=== PATIENT | male | born 1965 | race Caucasian/White ===

== ENCOUNTER 2017-05-17 19:24 | Emergency (ER) | payer BC ==
[~2017-05-17] VITALS: Ht 182.9 cm; Wt 68.0 kg
[~2017-05-17 19:24] MED LIST: CPR500 PO; MAGN1TAB19 PO; MTR500 PO
[2017-05-17 19:37] VITALS: TEMP 37; Ht 182.9 cm; Wt 68.0 kg
[2017-05-17] MEDS ORDERED: ONDANSETRON INJ 2 MG/ML 2 ML VIAL IV STA (20:20)
[2017-05-17] MEDS ORDERED: KETOROLAC TROMETHAMINE 30 MG/ML VIAL IV STA (20:20)
[2017-05-17] MEDS ORDERED: SODIUM CHLORIDE 0.9% 500ML 500 ML IV STA (20:20)
[2017-05-17] MEDS ORDERED: HYDROmorphone INJ 1 MG/ML SYR IV STA ×2 (20:20→21:51)
--- NOTE | 2017-05-17 20:25 | EMERGENCY ROOM VISIT NOTE ---
History Report prepared by Porfirio: Sterling Asencio Under the Supervision of: Dr. Stevan Storey M.D. First contact with patient: 20:16 Chief Complaint: DENTAL PAIN Stated Complaint: SORE JAW AFTER DENTAL WORK, TEETH PULLED Nursing Triage Summary: Dental Pain and facial swelling. Unable to eat. Recent tooth extraction. History of Present Illness The patient is a 51 year old male who presents to the Emergency Room with complaints of dental pain that began 4 days ago. He rates his pain a 9/10 in severity. At this time, he had one tooth removed. Yesterday, he had another tooth removed. He did not fill his Acme prescription. He is having a lot of pain with facial swelling. He is unable to chew secondary to pain. He denies any other symptoms. Source of History: patient Onset: four days ago Position: other (Dental) Symptom Intensity: 9/10 Quality: sharp Timing: constant Modifying Factors (Worsening): eating Note: He has some facial swelling. Review of Systems See HPI for pertinent positives & negatives. A total of 10 systems reviewed and were otherwise negative. Past Medical & Surgical History of Diverticulitis Family History Omitted secondary to the patient's age. Social History Smoking Status: Never Smoker Smokeless Tobacco Use: No Alcohol Use: occasionally Drug Use: none Marital Status: Housing Status: lives with family Occupation Status: employed Current/Historical Medications Scheduled Amoxicillin (Amoxil), 500 MG PO TID Metronidazole (Flagyl), 500 MG PO TID Scheduled PRN Ibuprofen (Motrin), 600 MG PO Q6H PRN for Pain Allergies Coded Allergies: No Known Allergies (Unverified , 01/15/15) Physical Exam Vital Signs Date Time Temp Pulse Resp B/P (MAP) Pulse Ox O2 Delivery O2 Flow Rate FiO2 05/17/17 22:11 65 18 110/72 99 05/17/17 21:33 58 18 113/73 96 Room Air 05/17/17 19:37 37.0 70 16 128/90 97 Room Air Physical Exam GENERAL: Patient is a healthy-appearing well-nourished male HEAD: Normocephalic atraumatic EYES: Ocular movements intact pupils equal and react to light OROPHARYNX: No evidence of Wes's angina. No evidence of abscess to the left upper molar. No trismus. NECK: Supple no nuchal rigidity CHEST: Good equal expansion LUNGS: Clear and equal to auscultation CARDIAC: Normal S1 and S2 ABDOMEN: Soft nontender no guarding BACK: No CVA tenderness EXTREMITIES: No pain upon palpation normal muscle strength in all groups no clubbing cyanosis or edema NEURO: Patient is following commands and answering questions appropriately. Alert and oriented x3 Cranial Nerves 2-12 grossly intact Medical Decision & Procedures ER Provider Diagnostic Interpretation: Radiology results as stated below per my review and radiologist interpretation: CT SCAN OF THE FACIAL BONES WITHOUT IV CONTRAST CLINICAL HISTORY: Left-sided facial pain. Reported history of recent dental extractions. COMPARISON STUDY: No priors. TECHNIQUE: High-resolution CT scan of the facial bones is performed. Images are reviewed in the axial, sagittal, and coronal planes. IV contrast was not administered for this examination. A dose lowering technique was utilized adhering to the principles of ALARA. CT DOSE: 725.04 mGy.cm FINDINGS: The skeletal structures are osteopenia. There is no evidence of facial bone fracture. The bony orbits are intact and the orbital contents are within normal limits. The zygomatic arches, nasal bones, and pterygoid plates are preserved. The maxilla and mandible are intact. There are no layering blood products within the paranasal sinuses. A 1.8 cm retention cyst is seen in the right maxillary antrum. Trace mucosal thickening is noted in the left maxillary antrum. The paranasal sinuses are otherwise clear. The mastoid air cells are well pneumatized. The visualized calvarium and upper cervical spine are maintained. Cervical spondylosis is partially visualized. Partially imaged brain parenchyma is within normal limits. Cerumen is noted within the external auditory canal bilaterally. Dental caries are noted within the remaining left mandibular premolar. There is a large periapical lucency identified involving the socket of the left maxillary canine with cortical breakthrough and overlying induration. There is also a large periapical lucency identified involving the socket of a left mandibular molar with overlying cortical breakthrough and overlying soft tissue induration. No organized fluid collection is seen on this unenhanced examination. IMPRESSION: 1. There is no evidence of facial bone fracture. 2. There is periapical lucency seen involving left-sided dental sockets as above with overlying soft tissue induration. This is likely related to the reported clinical history of recent dental extractions. Clinical correlation will be required. Follow-up with the patient's dentist is recommended. 3. There is no evidence of abscess on this unenhanced examination. Electronically signed by: Brian Love M.D. 05/17/2017 9:40 PM Dictated Date/Time: 05/17/2017 9:32 PM Laboratory Results 05/17/17 20:35 Red Blood Count 4.84, Mean Corpuscular Volume 86.6, Mean Corpuscular Hemoglobin 28.9, Mean Corpuscular Hemoglobin Concent 33.4, Mean Platelet Volume 9.4, Neutrophils (%) (Auto) 40.0, Lymphocytes (%) (Auto) 42.6, Monocytes (%) (Auto) 15.2, Eosinophils (%) (Auto) 1.4, Basophils (%) (Auto) 0.6, Neutrophils # (Auto ) 2.58, Lymphocytes # (Auto) 2.75, Monocytes # (Auto) 0.98, Eosinophils # (Auto ) 0.09, Basophils # (Auto) 0.04 05/17/17 20:35 Test 05/17/17 20:35 05/17/17 20:46 White Blood Count 6.45 K/uL (4.8-10.8) Red Blood Count 4.84 M/uL (4.7-6.1) Hemoglobin 14.0 g/dL (14.0-18.0) Hematocrit 41.9 % (42-52) Mean Corpuscular Volume 86.6 fL (80-100) Mean Corpuscular Hemoglobin 28.9 pg (25-34) Mean Corpuscular Hemoglobin Concent 33.4 g/dl (32-36) Platelet Count 265 K/uL (130-400) Mean Platelet Volume 9.4 fL (7.4-10.4) Neutrophils (%) (Auto) 40.0 % Lymphocytes (%) (Auto) 42.6 % Monocytes (%) (Auto) 15.2 % Eosinophils (%) (Auto) 1.4 % Basophils (%) (Auto) 0.6 % Neutrophils # (Auto) 2.58 K/uL (1.4-6.5) Lymphocytes # (Auto) 2.75 K/uL (1.2-3.4) Monocytes # (Auto) 0.98 K/uL (0.11-0.59) Eosinophils # (Auto) 0.09 K/uL (0-0.5) Basophils # (Auto) 0.04 K/uL (0-0.2) RDW Standard Deviation 42.5 fL (36.4-46.3) RDW Coefficient of Variation 13.3 % (11.5-14.5) Immature Granulocyte % (Auto) 0.2 % Immature Granulocyte # (Auto) 0.01 K/uL (0.00-0.02) Est Creatinine Clear Calc Drug Dose 75.6 ml/min Estimated GFR () 89.0 Estimated GFR (Non- 76.8 BUN/Creatinine Ratio 12.6 (10-20) Calcium Level 9.7 mg/dl (8.5-10.1) Total Bilirubin 0.8 mg/dl (0.2-1) Direct Bilirubin 0.2 mg/dl (0-0.2) Aspartate Amino Transf (AST/SGOT) 18 U/L (15-37) Alanine Aminotransferase (ALT/SGPT) 20 U/L (12-78) Alkaline Phosphatase 51 U/L (45-117) Total Protein 8.1 gm/dl (6.4-8.2) Albumin 4.4 gm/dl (3.4-5.0) Lipase 198 U/L (73-393) Bedside Hemoglobin 15.0 g/dl (14.0-18.0) Bedside Hematocrit 44 % (42-52) Bedside Sodium 135 mEq/L (135-144) Bedside Potassium 4.6 mEq/L (3.3-5.0) Bedside Chloride 100 mEq/L (101-112) Bedside Total CO2 24 mEq/l (24-31) Anion Gap 16.0 mmol/L (16-25) Bedside Blood Urea Nitrogen 15 mg/dl (7-18) Bedside Creatinine 1.0 mg/dl (0.6-1.3) Bedside Glucose (other) 86 mg/dl (70-99) Bedside Ionized Calcium (Aster) 1.20 mmol/l (1.12-1.32) Labs reviewed by ED physician. Medications Administered Medications (Trade) Dose Ordered Sig/Lis Route Start Time Stop Time Status Last Admin Dose Admin Hydromorphone HCl (Dilaudid Inj) 1 mg NOW STAT IV 05/17/17 20:20 05/17/17 20:23 DC 05/17/17 20:56 1 MG Ketorolac Tromethamine (Toradol Inj) 30 mg NOW STAT IV 05/17/17 20:20 103/17 20:23 DC 05/17/17 20:56 30 MG Ondansetron HCl (Zofran Inj) 4 mg NOW STAT IV 05/17/17 20:20 05/17/17 20:23 DC 05/17/17 20:55 4 MG Sodium Chloride 500 ml @ 999 mls/hr Q31M STAT IV 05/17/17 20:20 05/17/17 20:50 DC 05/17/17 21:01 999 MLS/HR Hydromorphone HCl (Dilaudid Inj) 1 mg NOW STAT IV 05/17/17 21:51 05/17/17 21:53 DC 05/17/17 22:00 1 MG Metronidazole (Flagyl Tab) 500 mg NOW STAT PO 05/17/17 21:57 05/17/17 21:59 DC 05/17/17 22:03 500 MG ED Course 2016: Past medical records reviewed. The patient was evaluated in room C9. A complete history and physical examination was performed. 2020: Ordered Sodium Chloride 500 ml @ 999 mls/hr IV, Zofran Inj 4 mg IV, Toradol Inj 30 mg IV, Dilaudid Inj 1 mg 2150: Ordered Metronidazole 500 mg IV, Dilaudid Inj 1 mg IV 2156: Ordered Flagyl Tab 500 mg PO 2199: Ordered Hydrocodone Bitart/ Acetaminophen 1 homepack PO 3: Upon reexamination the patient is resting. I discussed results and treatment plan with the patient. He verbalizes agreement and understanding. The patient is ready for discharge. Medical Decision Differential diagnoses include dental carries, Wes's angina, facial cellulitis. This is a 52-year-old male who presents emergency department complaining of dental pain. The patient recently had teeth pulled and has been unable to eat. Based on the patient's complaint I was concerned about facial cellulitis therefore the patient was sent for a CAT scan of the face. There is no evidence of cellulitis or abscess on the CAT scan. In addition the patient does not have an elevation in his white blood count cell count. He was started on Dilaudid as well as Toradol in the emergency department and started on Zosyn. Based on the findings I feel that the patient can be safely discharged home. I will continue the patient on Flagyl. I strongly recommended that the patient follow-up with either his dentist or the maxillofacial surgeon. Medication Reconcilliation Current Medication List: was personally reviewed by me Blood Pressure Screening Patient's blood pressure: Normal blood pressure Blood pressure disposition: Did not require urgent referral Impression Primary Impression: Pain, dental Scribe Attestation The scribe's documentation has been prepared under my direction and personally reviewed by me in its entirety. I confirm that the note above accurately reflects all work, treatment, procedures, and medical decision making performed by me. Departure Information Dispostion Home / Self-Care Prescriptions Metronidazole (Flagyl) 500 Mg Tab 500 MG PO TID for 10 Days, #30 TAB Prov: Stevan Storey MD 05/17/17 Referrals Luis Milian M.D. (PCP) Alli eCspedes D.D.S. Forms HOME CARE DOCUMENTATION FORM, IMPORTANT VISIT INFORMATION, School Instructions, Work Instructions Patient Instructions ED Tooth Pain, My [facility] Additional Instructions Need follow up with Dentist/ Dr Cespedes's office Continue taking Pennicillin You were found to have an elevated blood pressure today (>120 sytolic or >90 diastolic). Per medicare guidelines, you need to follow up with this blood pressure screening with your Primary Care Physician (PCP). For a new PCP call [phone]. You received narcotic or benzodiazepene medication while in the emergency room today. This is an addictive medication that may cause drowziness as well as constipation. Do not drive, operate heavy machinery, or drink alcohol under the influence of this medication. Take 600 mg Ibuprofen every 6 hours Take Acme for breakthrough pain You have been examined and treated today on an emergency basis only. This is not a substitute for, or an effort to provide, complete comprehensive medical care. It is impossible to recognize and treat all injuries or illnesses in a single emergency department visit. It is therefore important that you follow up closely with Dr Dixon. Call as soon as possible for an appointment. Thank you for your time and consideration. I look forward to speaking with you again soon. Please don't hesitate to call us if you have any questions.
[2017-05-17 20:47] LABS: BASO % 0.6 %; BASO ABS # 0.04 K/uL (0-0.2); COMPLETE YES; EOS % 1.4 %; HEMATOCRIT 41.9 % (42-52); IG% 0.2 %; LYMPH % 42.6 %; LYMPH ABS # 2.75 K/uL (1.2-3.4); MEAN CELL VOLUME 86.6 fL (80-100); MEAN CORPUSCULAR HEMOGLOBIN 28.9 pg (25-34); MEAN CORPUSCULAR HGB CONC 33.4 g/dl (32-36); MEAN PLATELET VOLUME 9.4 fL (7.4-10.4); MONO % 15.2 %; PLATELET COUNT 265 K/uL (130-400); RED BLOOD COUNT 4.84 M/uL (4.7-6.1); WHITE BLOOD COUNT 6.45 K/uL (4.8-10.8)
[2017-05-17] MEDS ORDERED: AMOX500C3 PO (20:53)
[2017-05-17] MEDS ORDERED: IBUP-1450 PO (20:53)
[2017-05-17 20:55] LABS: ISTAT IONIZED CALCIUM 1.2 mmol/l (1.12-1.32)
[2017-05-17 21:07] LABS: BUN/CREATININE RATIO 12.6 (10-20); CALCIUM 9.7 mg/dl (8.5-10.1); CREATININE 1.1 mg/dl (0.60-1.40); POTASSIUM 4.6 mmol/L (3.5-5.1)
--- NOTE | 2017-05-17 21:41 | DIAGNOSTIC IMAGING REPORT ---
CT SCAN OF THE FACIAL BONES WITHOUT IV CONTRAST CLINICAL HISTORY: Left-sided facial pain. Reported history of recent dental extractions. COMPARISON STUDY: No priors. TECHNIQUE: High-resolution CT scan of the facial bones is performed. Images are reviewed in the axial, sagittal, and coronal planes. IV contrast was not administered for this examination. A dose lowering technique was utilized adhering to the principles of ALARA. CT DOSE: 725.04 mGy.cm FINDINGS: The skeletal structures are osteopenia. There is no evidence of facial bone fracture. The bony orbits are intact and the orbital contents are within normal limits. The zygomatic arches, nasal bones, and pterygoid plates are preserved. The maxilla and mandible are intact. There are no layering blood products within the paranasal sinuses. A 1.8 cm retention cyst is seen in the right maxillary antrum. Trace mucosal thickening is noted in the left maxillary antrum. The paranasal sinuses are otherwise clear. The mastoid air cells are well pneumatized. The visualized calvarium and upper cervical spine are maintained. Cervical spondylosis is partially visualized. Partially imaged brain parenchyma is within normal limits. Cerumen is noted within the external auditory canal bilaterally. Dental caries are noted within the remaining left mandibular premolar. There is a large periapical lucency identified involving the socket of the left maxillary canine with cortical breakthrough and overlying induration. There is also a large periapical lucency identified involving the socket of a left mandibular molar with overlying cortical breakthrough and overlying soft tissue induration. No organized fluid collection is seen on this unenhanced examination. IMPRESSION: 1. There is no evidence of facial bone fracture. 2. There is periapical lucency seen involving left-sided dental sockets as above with overlying soft tissue induration. This is likely related to the reported clinical history of recent dental extractions. Clinical correlation will be required. Follow-up with the patient's dentist is recommended. 3. There is no evidence of abscess on this unenhanced examination. Electronically signed by: Brian Love M.D. 05/17/2017 9:40 PM Dictated Date/Time: 05/17/2017 9:32 PM
[2017-05-17] MEDS ORDERED: METRONIDAZOLE 500MG / 100ML NSS IV STA (21:51)
[2017-05-17] MEDS ORDERED: METRONIDAZOLE 250 MG TAB PO STA (21:57)
[2017-05-17] MEDS ORDERED: NORCO 5/325MG HOME PACK PO ONE (22:00)
[2017-05-17] MEDS ORDERED: METR-163 PO (22:00)
[2017-05-17 22:11] VITALS: BP 110/72; PULSE 65; O2SAT 99
== END 2017-05-17 22:10 | disposition home or self-care (01) ==
LOC: C.EDB 19:24 → C.EDC 22:10
DX: K08.89 Other specified disorders of teeth and supporting structures (principal); K57.92 Diverticulitis of intestine, part unspecified, without perforation or abscess without bleeding

== ENCOUNTER 2017-12-14 07:06 | Emergency (ER) | payer BC, OTHER ==
[~2017-12-14] VITALS: Ht 182.9 cm; Wt 65.9 kg
[~2017-12-14 07:06] MED LIST changes: +AMOX500C3 PO; -CPR500 PO; +IBUP-1450 PO; -MAGN1TAB19 PO; -MTR500 PO
[2017-12-14 07:18] VITALS: TEMP 36.6; Ht 182.9 cm; Wt 65.9 kg
--- NOTE | 2017-12-14 07:33 | EMERGENCY ROOM VISIT NOTE ---
History Report prepared by Delmeribreji: Ene Moore Under the Supervision of: Dr. Huan Soriano M.D. First contact with patient: 07:22 Chief Complaint: HEAD PAIN Stated Complaint: ROMAN CATHOLIC PAIN ON LFT SIDE OF FACE AND HEAD History of Present Illness The patient is a 52 year old white male with a limited past medical history who presents to the ED with a cc of persistent left sided jaw pain beginning 2 days [employer]. He describes the pain as feeling "sharp" in nature and rates it as an 8/10 in severity. He states the pain occasionally radiates from his jaw up to his left eye socket. Tylenol has provided minimal relief. Positive pain with eating or drinking. Negative fevers, chills, ear pain, shoulder pain or back pain. He notes he had several dental extractions about 6 months ago in the left side of his jaw and is unsure if that is related. Source of History: patient Onset: 2 days [employer]NE[employer] Position: jaw (left side of jaw) Symptom Intensity: 8/10 Quality: sharp Timing: other (persistent) Modifying Factors (Worsening): eating, drinking Modifying Factors (Relieving): tylenol Associated Symptoms: No fevers, No chills, No back pain Review of Systems See HPI for pertinent positives and negatives. A total of ten systems were reviewed and were otherwise negative. Past Medical & Surgical Surgical Problems: (1) History of tooth extraction Social History Smoking Status: Never Smoker Alcohol Use: occasionally Drug Use: none Marital Status: Housing Status: lives with family Occupation Status: employed Current/Historical Medications Scheduled Amoxicillin (Amoxil), 500 MG PO TID Scheduled PRN Ibuprofen (Motrin), 600 MG PO Q6H PRN for Pain Allergies Coded Allergies: No Known Allergies (Unverified , 01/15/15) Physical Exam Vital Signs Date Time Temp Pulse Resp B/P (MAP) Pulse Ox O2 Delivery O2 Flow Rate FiO2 12/14/17 07:18 36.6 55 20 122/75 96 Room Air Physical Exam GENERAL: Awake, alert, well-appearing, NAD HENT: Normocephalic, atraumatic. Absent teeth 12 through 14, no reproducible TTP , no fluctuance, no erythema, posterior oropharynx is clear. EYES: Normal conjunctiva. Sclera non-icteric. PERRL. No anisocoria. Painless EOMI, not proptotic, no visual field deficits NECK: Supple. No nuchal rigidity. FROM. RESPIRATORY: CTAB, no rhonchi, wheezing, crackles CARDIAC: RRR, no MRG ABDOMEN: Soft, NTND, BS+ MSK: No chest wall TTP, no LE edema NEURO: CN 2-12 intact, 5/5 upper and lower extremity strength, no dysmetria, no drift, good finger to nose, no sensory deficits. Finger count grossly normal. SKIN: No rash or jaundice noted. Medical Decision & Procedures Medications Administered Medications (Trade) Dose Ordered Sig/Lis Route Start Time Stop Time Status Last Admin Dose Admin Prednisone (PredniSONE TAB) 60 mg STK-MED ONCE .ROUTE 12/14/17 07:39 12/14/17 07:40 DC 12/14/17 07:41 50 MG ED Course 0723: The patient was evaluated in room B10. A complete history and physical exam was performed. 0745: I reevaluated the patient. He is feeling well and is ready to go home. I discussed his discharge instructions and he verbalized complete understanding and agreement. Medical Decision The patient is a 52 year old white male with a limited past medical history who presents to the ED with a cc of persistent left sided jaw pain beginning 2 days [employer]. Triage Nursing notes reviewed. The patient's presentation and history were concerning for phantom nerve pain, neuralgia, post-traumatic trigeminal neuropathy, abscess and temporal arteritis. Nursing notes reviewed. Ancillary studies and prior records reviewed. Patient was seen and evaluated the bedside. Patient has complained of left- sided jaw pain which she describes as sharp in nature originating in the left upper maxillary area and radiating posteriorly behind the eye. The patient does not have any visual acuity deficits. The patient has a nonfocal neurologic exam. Patient has good range of motion of the eyes and is not proptotic. No anisocoria noted. Patient's posterior pharynx clear. Patient does not have any fluctuance or evidence of any abscess. There is no reproducible tenderness at the left upper maxillary portion where he did have his teeth pulled. I do that the patient did believe that the patient likely has a type of neuralgia that is likely isolated to the maxillary nerve. Patient was initially given a dose of prednisone and given a tapering course as an outpatient with a Medrol Dosepak. Patient was told to follow-up with PCP discuss neuropathic pain management options. I do not believe that the patient has a stroke as the pain is originating in the jaw. It is in the upper jaw and is not related to chest pain. Less likely ACS. I do not believe that the patient has temporal arteritis as the patient does not have any reproducible temporal pain and lacks of the things consistent with polymyalgia rheumatica other than the patient's age. Furthermore I do not believe this is an infectious process given that the patient does not have any reproducible tenderness to palpation or fluctuance. Also also no evidence of zoster lesions less likely postherpetic neuralgia. I also discussed with the patient that this could be related to a type of cluster headache given the patient's ipsilateral symptoms. Patient was given strict follow-up, discharge, and return precautions. All questions were answered. Patient was deemed suitable for outpatient follow-up at this time. Patient agreed with the plan of care and was safely discharged home. Medication Reconcilliation Current Medication List: was personally reviewed by me Blood Pressure Screening Patient's blood pressure: Normal blood pressure Blood pressure disposition: Did not require urgent referral Impression Primary Impression: Trigeminal neuralgia of left side of face Scribe Attestation The scribe's documentation has been prepared under my direction and personally reviewed by me in its entirety. I confirm that the note above accurately reflects all work, treatment, procedures, and medical decision making performed by me. Departure Information Dispostion Home / Self-Care Prescriptions Pregabalin (LYRICA) 75 Mg Cap 75 MG PO BID for 7 Days, #14 CAP Prov: Huan Soriano M.D. 12/14/17 Methylprednisolone (MEDROL DOSEPAK) 4 Mg Marcin 1 PKT PO UD for 6 Days, #1 PKT Prov: Huan Soriano M.D. 12/14/17 Referrals Luis Milian M.D. (PCP) Patient Instructions ED Neuralgia Trigeminal, My [facility] Additional Instructions Please return to the emergency department if you have worsening or recurrent symptoms not amenable to at-home treatment. Please call for a follow-up appointment with her primary care physician. Please take your medications as prescribed. If you have other concerns and/or complaints please feel free to also call your primary care physician's office or return the ED for further evaluation, management, and treatment. Please follow-up with your primary care physician to discuss further treatment management options for neuropathic pain. Please discuss treatment options as this may be related to trigeminal neuralgia , neuropathy, and/or cluster headache. You may take 400 mg Ibuprofen every 6 hours as needed for pain/fever with food unless told by your physician not to take NSAIDs. You may take tylenol 1000 mg every 6 hours as needed for pain/fever unless told by your physician to not take it or have liver problems. You may take motrin and tylenol separately or at the same time. Take your medications as prescribed. Please take your steroids preferably in the morning and with food as they may cause some upset stomach and cause you to be very awake and alert. Consider taking Pepcid 20 mg twice daily to help avoid GI upset. You have been examined and treated today on an emergency basis only. This is not a substitute for, or an effort to provide, complete comprehensive medical care. It is impossible to recognize and treat all injuries or illnesses in a single emergency department visit. It is therefore important that you follow up closely with [facility], your PCP, and/or your specialist(s). Call as soon as possible for an appointment. Thank you for your time and consideration. I look forward to speaking with you again soon. Please don't hesitate to call us if you have any questions.
[2017-12-14] MEDS ORDERED: METH4PAK PO (07:56)
[2017-12-14] MEDS ORDERED: PREG75CA PO (07:56)
[2017-12-14 08:03] VITALS: BP 129/74; PULSE 62; O2SAT 97
== END 2017-12-14 08:04 | disposition home or self-care (01) ==
LOC: C.EDB 07:07
DX: G50.0 Trigeminal neuralgia (principal)

== ENCOUNTER 2023-03-05 18:40 | Inpatient (IN) ==
[2023-03-05] MEDS ORDERED: SODIUM CHLORIDE 0.9% 500 ML IV ONE (19:04)
--- NOTE | 2023-03-05 19:06 | Emergency Department Note ---
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 The patient reports the pain is not associated with exertion or rest but does acknowledge that he has been having increasing shortness of breath with exertion for the past week to several weeks. He reports that he feels he has had cramping in his legs. He denies any personal or family history of blood clots. He denies any prior cardiac history. He does report that he drinks 6 beers every day. He does not feel he would have withdrawal if he were to stop for a week but has not done this in some time. He reports he most recently felt chest pain this morning which was more severe but has since calmed but has remained constant throughout today. The patient's reports that she feels as his color has been somewhat pale over the past several weeks. The patient reports having black stool a couple of x2 weeks ago but acknowledges that he did take Pepto-Bismol at that time. On arrival emergency department the patient is no distress, afebrile stable vital signs. He appears clinically dry. Lungs are clear bilaterally. Abdomen is benign. Rectal exam performed and did not demonstrate you will or Hemoccult nor melena or gross blood at this time. EKG without overt acute ischemia. Chest x-ray negative for acute cardiopulmonary process. WBC within normal limits. H/H 6.9/20.5 decreased from 14/39 in 2020 without more recent for comparison. MCV is normocytic at 77. Platelets mildly elevated at 534, nonspecific. Chemistry without metabolic acidosis. BUN is normal as is creatinine. Iron is noted to be significantly low and <10. LFTs unremarkable. High-sensitivity troponin was undetectable in setting of constant symptoms since this morning. Lipase is not elevated. COVID-19 RNA, DINORA test was negative. CT of the abdomen pelvis demonstrates small hiatal hernia and otherwise no acute abnormalities. Given the patient's low hemoglobin he was consented for transfusion and was ordered for 1 unit of PRBCs. Otherwise, he does agree with plan for admission for further management. Given possibility of upper GI bleeding Protonix bolus and drip was initiated though no melena or blood noted on exam. Case was discussed with [facility]ist, who will evaluate the patient for admission. Triage Nursing notes reviewed and agree them. Prior/outside medical records reviewed Vital Signs: reviewed Differential diagnosis: Reactive airway disease, pneumonia, pneumothorax, COPD, CHF, infections, cardiac ischemia, pulmonary embolism, musculoskeletal, gastrointestinal, as well as other pathologies. ER treatment provided: See below. Diagnostics interpreted by me: ECG: Normal sinus rhythm, 78 bpm, no ectopy, no overt ST elevation or depression, QTc 412, QRS 74. Cardiac Monitoring: An order for continuous cardiac monitoring was placed and demonstrated Normal sinus rhythm, 78 bpm, no ectopy. Laboratory studies: See below Imaging studies: See below Consultation(s): [facility] the patient for [facility]. HPI: The patient is a pleasant 57-year-old gentleman with a past medical history of daily alcohol use who presents to emergency department for evaluation via walk-in, comedy by his for symptoms of chest pain has been ongoing for the past week which she attributed to indigestion but did not improve with antacids. The patient reports the pain is not associated with exertion or rest but does acknowledge that he has been having increasing shortness of breath with exertion for the past week to several weeks. He reports that he feels he has had cramping in his legs. He denies any personal or family history of blood clots. He denies any prior cardiac history. He does report that he drinks 6 beers every day. He does not feel he would have withdrawal if he were to stop for a week but has not done this in some time. He reports he most recently felt chest pain this morning which was more severe but has since calmed but has remained constant throughout today. The patient's reports that she feels as his color has been somewhat pale over the past several weeks. The patient reports having black stool a couple of x2 weeks ago but acknowledges that he did take Pepto-Bismol at that time. ROS: See above HPI for pertinent positives & negatives. A total of 10 systems reviewed and were otherwise negative. VITALS:See Below PHYSICAL EXAMINATION: GENERAL: Awake, alert, fatigued but well-appearing, in no distress HENT: Normocephalic, atraumatic. Oropharynx with dry mucous membranes and otherwise unremarkable. EYES: Normal conjunctiva. Sclera non-icteric. NECK: Supple. No nuchal rigidity. FROM. No JVD. RESPIRATORY: Clear to auscultation. CARDIAC: Regular rate, normal rhythm. Extremities warm and well perfused. Pulses equal. ABDOMEN: Soft, non-distended. No tenderness to palpation. No rebound or guarding. No masses. RECTAL: Deferred. MUSCULOSKELETAL: Chest examination reveals no tenderness. The back is symmetrical on inspection without obvious abnormality. There is no CVA tenderness to palpation. No joint edema. LOWER EXTREMITIES: Calves are equal size bilaterally and non-tender. No edema. No discoloration. NEURO: Normal sensorium. No sensory or motor deficits noted. SKIN: No rash or jaundice noted. ED COURSE: Critical Care: I have personally spent greater than 35 minutes of critical care time in the direct management of this patient. This includes bedside care, interpretation of diagnostic studies, and testing, discussion with consultants, patient, and family members, and other required patient management activities. This 35 minutes is in excess of all separately billable procedures. Vlad Voss MD Past Med/Surg History Medical History (Updated 03/06/23 @ 07:02 by Vlad Voss MD) Diverticulitis Social History Smoking Status: Former smoker Second Hand Exposure: No; Do You Dip or Chew Tobacco: No; Tobacco Cessation Education Requested by Patient: No Hx Alcohol Use: Yes Alcohol type: beer Hx Substance Use: Yes Preferred Language: Ukrainian Communication Ability: Effective Instructor Private Required: No Beliefs That Will Affect Care: None Current Living Situation: Spouse Other Information That Helps Us Care for You: No Feels Safe at Home: Yes Safety Concerns: Feels Safe At This Time Assistive Devices: Glasses and Other Assistive Devices Comment: upper and lower partials Allergies Allergies Allergy/AdvReac Type Severity Reaction Status Date / Time carbamazepine [From Tegretol] Allergy Rash Unverified 08/28/21 10:51 Home Meds Previous Rx's Medication Instructions Recorded ciprofloxacin HCl 500 mg tablet 500 mg PO Q12H #20 tabs 04/11/21 Results & Data (ED) Vital Signs Vital Signs - 24 hr 03/05/23 18:44 03/05/23 18:55 03/05/23 18:41 Temperature 37 C Temperature Source Temporal Artery Scan Pulse Rate 77 Pulse Rate [Right Finger] 70 Pulse Rhythm Pulse Rhythm [Right Finger] Regular Pulse Strength Pulse Strength [Right Finger] Normal Respiratory Rate 18 17 Respiratory Effort / Characteristics Non-Labored Non-Labored Respiratory Depth Normal Normal Respiratory Pattern Regular Regular Blood Pressure 100/63 Blood Pressure [Right Arm] 151/77 H Blood Pressure Mean 75 Blood Pressure Mean [Right Arm] 101 Blood Pressure Position Blood Pressure Position [Right Arm] Semi-fowlers Pulse Oximetry 100 99 Oxygen Delivery Method Room Air Room Air Room Air Sepsis Recent Fever Within 48 Hours No Sepsis New/Unexplained Change in Mental Status N/A Sepsis Action Taken by Nursing No Action Required 03/05/23 19:25 03/05/23 19:00 03/05/23 21:34 Temperature 36.9 C Temperature Source Oral Pulse Rate 64 62 72 Pulse Rate [Right Finger] Pulse Rhythm Regular Pulse Rhythm [Right Finger] Pulse Strength Normal Pulse Strength [Right Finger] Respiratory Rate 15 18 Respiratory Effort / Characteristics Respiratory Depth Respiratory Pattern Blood Pressure 137/79 Blood Pressure [Right Arm] Blood Pressure Mean 98 Blood Pressure Mean [Right Arm] Blood Pressure Position Blood Pressure Position [Right Arm] Pulse Oximetry 100 98 Oxygen Delivery Method Room Air Sepsis Recent Fever Within 48 Hours Sepsis New/Unexplained Change in Mental Status Sepsis Action Taken by Nursing 03/05/23 21:52 03/05/23 22:07 03/05/23 22:37 Temperature 37 C 37 C Temperature Source Oral Oral Pulse Rate 68 73 63 Pulse Rate [Right Finger] Pulse Rhythm Regular Regular Pulse Rhythm [Right Finger] Pulse Strength Normal Normal Pulse Strength [Right Finger] Respiratory Rate 17 17 19 Respiratory Effort / Characteristics Respiratory Depth Respiratory Pattern Blood Pressure 127/75 133/80 130/79 Blood Pressure [Right Arm] Blood Pressure Mean 92 97 96 Blood Pressure Mean [Right Arm] Blood Pressure Position Sitting Semi-fowlers Blood Pressure Position [Right Arm] Pulse Oximetry 99 99 100 Oxygen Delivery Method Sepsis Recent Fever Within 48 Hours Sepsis New/Unexplained Change in Mental Status Sepsis Action Taken by Nursing 03/05/23 22:47 03/05/23 23:09 03/05/23 23:00 Temperature Temperature Source Pulse Rate 64 70 Pulse Rate [Right Finger] 68 Pulse Rhythm Pulse Rhythm [Right Finger] Pulse Strength Pulse Strength [Right Finger] Respiratory Rate 18 16 Respiratory Effort / Characteristics Respiratory Depth Respiratory Pattern Blood Pressure 130/77 Blood Pressure [Right Arm] 130/79 Blood Pressure Mean 94 Blood Pressure Mean [Right Arm] 96 Blood Pressure Position Blood Pressure Position [Right Arm] Semi-fowlers Pulse Oximetry 100 100 Oxygen Delivery Method Sepsis Recent Fever Within 48 Hours Sepsis New/Unexplained Change in Mental Status Sepsis Action Taken by Nursing 03/05/23 23:26 Temperature 37.5 C Temperature Source Oral Pulse Rate 68 Pulse Rate [Right Finger] Pulse Rhythm Pulse Rhythm [Right Finger] Pulse Strength Pulse Strength [Right Finger] Respiratory Rate 16 Respiratory Effort / Characteristics Respiratory Depth Respiratory Pattern Blood Pressure 134/82 Blood Pressure [Right Arm] Blood Pressure Mean 99 Blood Pressure Mean [Right Arm] Blood Pressure Position Blood Pressure Position [Right Arm] Pulse Oximetry 100 Oxygen Delivery Method Sepsis Recent Fever Within 48 Hours Sepsis New/Unexplained Change in Mental Status Sepsis Action Taken by Nursing Laboratory Data Attestation: I reviewed the patient's lab results. 03/05/23 18:55 03/05/23 18:55 Lab Results 03/05/23 03/05/23 03/05/23 Range/Units 18:55 18:55 20:04 WBC 8.76 (4.8-10.8) K/ul RBC 2.78 L (4.70-6.10) M/uL Hgb 6.9 L* (14.0-18.0) g/dl Hct 21.5 L (42.0-52.0) % MCV 77.3 L (80.0-100.0) fL MCH 24.8 L (25.0-34.0) pg MCHC 32.1 (32.0-36.0) g/dL RDW Std Deviation 41.9 (36.4-46.3) fL RDW Coeff of Stone 14.8 H (11.5-14.5) % Plt Count 534 H (130-400) K/uL MPV 9.4 (9.4-12.4) fL Immature Gran % (Auto) 0.2 % Neut % (Auto) 60.7 % Lymph % (Auto) 22.6 % [place] % (Auto) 15.1 % Eos % (Auto) 0.8 % Baso % (Auto) 0.6 % Reticulocyte % (Auto) 2.1 H (0.5-2.0) % Neut # (Auto) 5.32 (1.40-6.50) K/uL Lymph # (Auto) 1.98 (1.2-3.4) K/uL [place] # (Auto) 1.32 H (0.11-0.59) K/uL Eos # (Auto) 0.07 (0-0.50) K/uL Baso # (Auto) 0.05 (0-0.2) K/uL Reticulocyte # 0.05 (0.02-0.10) 10^6/uL Immature Gran # (Auto) 0.02 (0.01-0.20) K/uL Polychromasia 1+ Hypochromasia Present Sodium 134 L (136-145) mmol/L Potassium 4.1 (3.5-5.1) mmol/L Chloride 103 (98-107) mmol/L Carbon Dioxide 23 (21-32) mmol/L Anion Gap 8 (3-11) BUN 13 (6-23) mg/dl Creatinine 0.85 (0.6-1.4) mg/dl Est Cr Clr Drug Dosing 94.9 ml/min Est GFR ( Amer) 111.3 ml/min Est GFR (Non-Af Amer) 96.0 ml/min BUN/Creatinine Ratio 15.3 (10-20) Glucose 92 (70-99(Fasting)) mg/dl Calcium 8.9 (8.6-10.3) mg/dl Phosphorus 4.2 (2.5-4.9) mg/dl Magnesium 2.0 (1.7-2.4) mg/dl Iron (35-175) mcg/dl Unsaturated IBC (155-355) mcg/dl Transferrin (200-360) mg/dl Ferritin (8-388) ng/ml Total Bilirubin 0.3 (0.2-1.0) mg/dl AST 12 L (13-39) U/L ALT 9 (7-52) U/L Alkaline Phosphatase 65 (34-104) U/L Troponin I High Sens < 2.3 (0-20) pg/ml Total Protein 6.8 (6.0-8.3) gm/dl Albumin 4.1 (3.4-5.0) gm/dl Globulin 2.7 (2.5-4.0) gm/dl Albumin/Globulin Ratio 1.5 (0.9-2) Lipase 20 (11-82) U/L Blood Type Blood Type Recheck Antibody Screen Crossmatch 03/05/23 03/05/23 03/05/23 Range/Units 20:04 20:04 20:28 WBC (4.8-10.8) K/ul RBC (4.70-6.10) M/uL Hgb (14.0-18.0) g/dl Hct (42.0-52.0) % MCV (80.0-100.0) fL MCH (25.0-34.0) pg MCHC (32.0-36.0) g/dL RDW Std Deviation (36.4-46.3) fL RDW Coeff of Stone (11.5-14.5) % Plt Count (130-400) K/uL MPV (9.4-12.4) fL Immature Gran % (Auto) % Neut % (Auto) % Lymph % (Auto) % [place] % (Auto) % Eos % (Auto) % Baso % (Auto) % Reticulocyte % (Auto) (0.5-2.0) % Neut # (Auto) (1.40-6.50) K/uL Lymph # (Auto) (1.2-3.4) K/uL [place] # (Auto) (0.11-0.59) K/uL Eos # (Auto) (0-0.50) K/uL Baso # (Auto) (0-0.2) K/uL Reticulocyte # (0.02-0.10) 10^6/uL Immature Gran # (Auto) (0.01-0.20) K/uL Polychromasia Hypochromasia Sodium (136-145) mmol/L Potassium (3.5-5.1) mmol/L Chloride (98-107) mmol/L Carbon Dioxide (21-32) mmol/L Anion Gap (3-11) BUN (6-23) mg/dl Creatinine (0.6-1.4) mg/dl Est Cr Clr Drug Dosing ml/min Est GFR ( Amer) ml/min Est GFR (Non-Af Amer) ml/min BUN/Creatinine Ratio (10-20) Glucose (70-99(Fasting)) mg/dl Calcium (8.6-10.3) mg/dl Phosphorus (2.5-4.9) mg/dl Magnesium (1.7-2.4) mg/dl Iron < 10 L (35-175) mcg/dl Unsaturated IBC 404 H (155-355) mcg/dl Transferrin 331 (200-360) mg/dl Ferritin 4.5 L (8-388) ng/ml Total Bilirubin (0.2-1.0) mg/dl AST (13-39) U/L ALT (7-52) U/L Alkaline Phosphatase (34-104) U/L Troponin I High Sens (0-20) pg/ml Total Protein (6.0-8.3) gm/dl Albumin (3.4-5.0) gm/dl Globulin (2.5-4.0) gm/dl Albumin/Globulin Ratio (0.9-2) Lipase (11-82) U/L Blood Type A Positive Blood Type Recheck A Positive Antibody Screen NEGATIVE Crossmatch See Detail 03/05/23 Range/Units 21:30 WBC (4.8-10.8) K/ul RBC (4.70-6.10) M/uL Hgb (14.0-18.0) g/dl Hct (42.0-52.0) % MCV (80.0-100.0) fL MCH (25.0-34.0) pg MCHC (32.0-36.0) g/dL RDW Std Deviation (36.4-46.3) fL RDW Coeff of Stone (11.5-14.5) % Plt Count (130-400) K/uL MPV (9.4-12.4) fL Immature Gran % (Auto) % Neut % (Auto) % Lymph % (Auto) % [place] % (Auto) % Eos % (Auto) % Baso % (Auto) % Reticulocyte % (Auto) (0.5-2.0) % Neut # (Auto) (1.40-6.50) K/uL Lymph # (Auto) (1.2-3.4) K/uL [place] # (Auto) (0.11-0.59) K/uL Eos # (Auto) (0-0.50) K/uL Baso # (Auto) (0-0.2) K/uL Reticulocyte # (0.02-0.10) 10^6/uL Immature Gran # (Auto) (0.01-0.20) K/uL Polychromasia Hypochromasia Sodium (136-145) mmol/L Potassium (3.5-5.1) mmol/L Chloride (98-107) mmol/L Carbon Dioxide (21-32) mmol/L Anion Gap (3-11) BUN (6-23) mg/dl Creatinine (0.6-1.4) mg/dl Est Cr Clr Drug Dosing ml/min Est GFR ( Amer) ml/min Est GFR (Non-Af Amer) ml/min BUN/Creatinine Ratio (10-20) Glucose (70-99(Fasting)) mg/dl Calcium (8.6-10.3) mg/dl Phosphorus (2.5-4.9) mg/dl Magnesium (1.7-2.4) mg/dl Iron (35-175) mcg/dl Unsaturated IBC (155-355) mcg/dl Transferrin (200-360) mg/dl Ferritin (8-388) ng/ml Total Bilirubin (0.2-1.0) mg/dl AST (13-39) U/L ALT (7-52) U/L Alkaline Phosphatase (34-104) U/L Troponin I High Sens < 2.3 (0-20) pg/ml Total Protein (6.0-8.3) gm/dl Albumin (3.4-5.0) gm/dl Globulin (2.5-4.0) gm/dl Albumin/Globulin Ratio (0.9-2) Lipase (11-82) U/L Blood Type Blood Type Recheck Antibody Screen Crossmatch Administered Medications Gabapentin (Gabapentin 600 Mg Tab) 600 mg PO Q6H GREG Stop: 03/06/23 12:01 Last Admin: 03/06/23 06:37 Dose: 600 mg Documented By: [id number] Pantoprazole Sodium 40 mg/ (Dextrose) 100 mls @ 20 mls/hr IV Q5H GREG Stop: 04/04/23 21:59 Last Admin: 03/06/23 03:24 Dose: 8 mg/hr, 20 mls/hr Documented By: [id number] Infusion: 03/06/23 03:18 Dose: 0 mg/hr, 0 mls/hr Documented By: [id number] Admin: 03/05/23 22:18 Dose: 8 mg/hr, 20 mls/hr Documented By: [email or web address] Discontinued Medications Furosemide (Furosemide Inj 20 Mg/2 Ml Vial) 20 mg IV ONE ONE Stop: 03/06/23 01:37 Last Admin: 03/06/23 02:46 Dose: 20 mg Documented By: [id number] Gabapentin (Gabapentin 600 Mg Tab) 1,200 mg PO NOW ONE Stop: 03/06/23 02:01 Last Admin: 03/06/23 02:46 Dose: 1,200 mg Documented By: [id number] Sodium Chloride (Nss) 500 mls @ 999 mls/hr IV .Q31M ONE Stop: 03/05/23 19:34 Last Infusion: 03/05/23 20:01 Dose: 0 mls/hr Documented By: Admin: 03/05/23 19:12 Dose: 999 mls/hr Documented By: Pantoprazole Sodium (Protonix Bolus/Drip) 0 mls @ 1 mls/hr IV ONE STA Stop: 03/05/23 21:43 Last Admin: 03/05/23 22:18 Dose: Not Given Documented By: [email or web address] Pantoprazole Sodium 80 mg/ (Dextrose) 120 mls @ 400 mls/hr IV NOW ONE Stop: 03/05/23 21:59 Last Infusion: 03/05/23 22:20 Dose: 0 mls/hr Documented By: Admin: 03/05/23 22:01 Dose: 400 mls/hr Documented By: TSERING Thiamine HCl 100 mg/ Folic (Acid 1 mg/ Sodium Chloride) 1,001.2 mls @ 500 mls/hr IV .Q2H1M [facility]; Protocol Stop: 03/06/23 04:00 Last Admin: 03/06/23 05:07 Dose: 500 mls/hr Documented By: [id number] Ioversol (Optiray 320 100ml) 94 ml IV ONCE ONE Stop: 03/05/23 20:19 Last Admin: 03/05/23 20:19 Dose: 94 ml Documented By: TODD Multivitamins/Minerals (Cerovite Adv Formula Tab) 1 tab PO ONE STA Stop: 03/06/23 01:37 Last Admin: 03/06/23 02:45 Dose: 1 tab Documented By: [id number] Imaging Data Radiologist's Impression: Chest X-Ray 03/05/23 19:03 XR chest 1V portable CLINICAL HISTORY: Chest pain, nonspecific COMPARISON STUDY: Chest radiograph January 15, 2015. FINDINGS: Lung volumes are normal. Lungs are clear. There is no pneumothorax or pleural effusion. Cardiac size is normal. Mediastinal contours are normal. There is no evidence for pulmonary edema. IMPRESSION: No acute cardiopulmonary findings. ACT 112: Negative or not required by law. Electronically signed by: Mele Umanzor M.D. 03/05/2023 7:29 PM Abdomen/Pelvis CT 03/05/23 19:50 Exam(s): CT ABDOMEN + PELVIS With Contrast IV Amt: 94 ml optiray 320 EXAM: CT Abdomen and Pelvis With Intravenous Contrast CLINICAL HISTORY: Reason for exam: abd pain/chest pain, anemia. TECHNIQUE: Axial computed tomography images of the abdomen and pelvis with intravenous contrast. CTDI is 12.05 mGy and DLP is 559.15 mGy-cm. Automated exposure control was utilized for the study. A dose lowering technique was utilized adhering to the principles of ALARA. CONTRAST: Patient received 94 ml optiray 320 of IV contrast COMPARISON: No relevant prior studies available. FINDINGS: Lung bases: Unremarkable. No mass. No consolidation. Mediastinum: Small hiatal hernia. ABDOMEN: Liver: Unremarkable. No mass. Gallbladder and bile ducts: Unremarkable. No calcified stones. No ductal dilation. Pancreas: Unremarkable. No mass. No ductal dilation. Spleen: Unremarkable. No splenomegaly. Adrenals: Unremarkable. No mass. Kidneys and ureters: Unremarkable. No solid mass. No hydronephrosis. Stomach and bowel: Diverticulosis, without acute diverticulitis. No small bowel obstruction. No free intraperitoneal air. PELVIS: Appendix: Normal appendix. Bladder: Unremarkable. No mass. Reproductive: Unremarkable as visualized. ABDOMEN and PELVIS: Intraperitoneal space: Unremarkable. No free air. No significant fluid collection. Bones/joints: Degenerative changes of the spine. No acute fracture. No dislocation. Soft tissues: Unremarkable. Vasculature: Atherosclerotic changes of the aorta. No abdominal aortic aneurysm. Lymph nodes: Unremarkable. No enlarged lymph nodes. IMPRESSION: 1. Normal appendix. 2. Small hiatal hernia. 3. Diverticulosis, without acute diverticulitis. No small bowel obstruction. No free intraperitoneal air. Electronically signed by: Thierno Abbott MD 03/05/23 21:58 PM Discharge Plan Visit Data Chief Complaint: Chest Pain Stated Complaint: CHEST PAIN,TROUBLE BREATHING ED Provider: Vlad Voss Discharge Problem: Symptomatic anemia, Alcoholism, Chest pain, Iron deficiency Patient Disposition: Admitted As Inpatient Discharge Instructions Interventions: ED Discharge Assessment Last Done: 03/06/23 00:28
[2023-03-05 19:29] LABS: Alanine Aminotransferase 9 U/L (7-52); Albumin Globulin Ratio 1.5 (0.9-2); Albumin Level 4.1 gm/dl (3.4-5.0); Alkaline Phosphatase 65 U/L (34-104); Anion Gap 8 (3-11); Aspartate Aminotransferase 12 U/L (13-39); BUN Creatinine Ratio 15.3 (10-20); Bilirubin,Total 0.3 mg/dl (0.2-1.0); Blood Urea Nitrogen 13 mg/dl (6-23); Calcium 8.9 mg/dl (8.6-10.3); Carbon Dioxide 23 mmol/L (21-32); Chloride 103 mmol/L (98-107); Creatinine Clr Calc Pharmacy 94.9 ml/min; Est GFR (African American) 111.3 ml/min; Globulin 2.7 gm/dl (2.5-4.0); Glucose 92 mg/dl (70-99(Fasting)); Lipase 20 U/L (11-82); Phosphorus 4.2 mg/dl (2.5-4.9); Potassium 4.1 mmol/L (3.5-5.1); Sodium 134 mmol/L (136-145); Total Protein 6.8 gm/dl (6.0-8.3)
--- NOTE | 2023-03-05 19:31 | XRay Report ---
XR chest 1V portable CLINICAL HISTORY: Chest pain, nonspecific COMPARISON STUDY: Chest radiograph January 15, 2015. FINDINGS: Lung volumes are normal. Lungs are clear. There is no pneumothorax or pleural effusion. Car diac size is normal. Mediastinal contours are normal. There is no evidence for pulmonary edema. IMPRESSION: No acute cardiopulmonary findings. ACT 112: Negative or not required by law. Electronically signed by: Mele Umanzor M.D. 03/05/2023 7:29 PM
[2023-03-05 19:35] LABS: Troponin I High Sensitivity < 2.3 pg/ml (0-20)
[2023-03-05 19:46] LABS: Hematocrit (blood only) 21.5 % (42.0-52.0); Hemoglobin 6.9 g/dl (14.0-18.0); Mean Corpuscular Hemoglobin 24.8 pg (25.0-34.0); Mean Corpuscular Hgb Conc 32.1 g/dL (32.0-36.0); Mean Corpuscular Volume 77.3 fL (80.0-100.0); Mean Platelet Volume 9.4 fL (9.4-12.4); Platelet Count 534 K/uL (130-400); RDW Coefficient of Variation 14.8 % (11.5-14.5); RDW Standard Deviation 41.9 fL (36.4-46.3); Red Blood Count 2.78 M/uL (4.70-6.10); White Blood Count 8.76 K/ul (4.8-10.8)
[2023-03-05] MEDS ORDERED: SODIUM CHLORIDE 0.9% 250 ML IV PRN (19:52)
[2023-03-05 20:08] LABS: Basophils # (auto) 0.05 K/uL (0-0.2); Basophils % (auto) 0.6 %; Eosinophils # (auto) 0.07 K/uL (0-0.50); Eosinophils % (auto) 0.8 %; Hypochromasia Present; Immature Granulocytes # (auto) 0.02 K/uL (0.01-0.20); Immature Granulocytes % (auto) 0.2 %; Lymphocytes # (auto) 1.98 K/uL (1.2-3.4); Lymphocytes % (auto) 22.6 %; Monocytes # (auto) 1.32 K/uL (0.11-0.59); Monocytes % (auto) 15.1 %; Neutrophils # (auto) 5.32 K/uL (1.40-6.50); Neutrophils % (auto) 60.7 %; Polychromasia 1+
[2023-03-05] MEDS ORDERED: OPTIRAY 320 100ml IV ONE (20:18)
[2023-03-05 20:27] LABS: Reticulocyte % 2.1 % (0.5-2.0); Reticulocytes # 0.05 10^6/uL (0.02-0.10)
[2023-03-05 20:59] LABS: Ferritin 4.5 ng/ml (8-388)
[2023-03-05 21:03] LABS: Iron < 10 mcg/dl (35-175); Transferrin 331 mg/dl (200-360); Unsaturated Iron Binding Cap 404 mcg/dl (155-355)
[2023-03-05] MEDS ORDERED: PANTOPRAZOLE BOLUS/DRIP 1 EACH IV STA (21:42)
[2023-03-05] MEDS ORDERED: PANTOprazole 80 MG in DEXTROSE 5% 100 ML IV ONE (21:42)
--- NOTE | 2023-03-05 21:58 | CT Scan Report ---
Exam(s): CT ABDOMEN + PELVIS With Contrast IV Amt: 94 ml optiray 320 EXAM: CT Abdomen and Pelvis With Intravenous Contrast CLINICAL HISTORY: Reason for exam: abd pain/chest pain, anemia. TECHNIQUE: Axial computed tomography images of the abdomen and pelvis with intravenous contrast. CTDI is 12.05 mGy and DLP is 559.15 mGy-cm. Automated exposure control was utilized for the study. A dose lowering technique was utilized adhering to the principles of ALARA. CONTRAST: Patient received 94 ml optiray 320 of IV contrast COMPARISON: No relevant prior studies available. FINDINGS: Lung bases: Unremarkable. No mass. No consolidation. Mediastinum: Small hiatal hernia. ABDOMEN: Liver: Unremarkable. No mass. Gallbladder and bile ducts: Unremarkable. No calcified stones. No ductal dilation. Pancreas: Unremarkable. No mass. No ductal dilation. Spleen: Unremarkable. No splenomegaly. Adrenals: Unremarkable. No mass. Kidneys and ureters: Unremarkable. No solid mass. No hydronephrosis. Stomach and bowel: Diverticulosis, without acute diverticulitis. No small bowel obstruction. No free intraperitoneal air. PELVIS: Appendix: Normal appendix. Bladder: Unremarkable. No mass. Reproductive: Unremarkable as visualized. ABDOMEN and PELVIS: Intraperitoneal space: Unremarkable. No free air. No significant fluid collection. Bones/joints: Degenerative changes of the spine. No acute fracture. No dislocation. Soft tissues: Unremarkable. Vasculature: Atherosclerotic changes of the aorta. No abdominal aortic aneurysm. Lymph nodes: Unremarkable. No enlarged lymph nodes. IMPRESSION: 1. Normal appendix. 2. Small hiatal hernia. 3. Diverticulosis, without acute diverticulitis. No small bowel obstruction. No free intraperitoneal air. Electronically signed by: Thierno Abbott MD 03/05/23 21:58 PM
[2023-03-05] MEDS: PANTOprazole 40 MG in DEXTROSE 5% 100 ML IV SCH (22:18)
--- NOTE | 2023-03-05 23:54 | History & Physical Report ---
Date of Service March 05, 2023 Assessment & Plan (1) Symptomatic anemia: Plan: 57-year-old male presents with symptomatic anemia. Symptomatic anemia Possible from alcoholism Denies any [id number] ibuprofen or Aleve. Rarely takes ibuprofen Has dyspnea on exertion Has chest pain on exertion EKG and troponins are negative We will follow serial enzymes and echo and consult cardiology in a.m. Stool for Hemoccult 2 units of PRBC Follow H&H On PPI drip Consult GI N.p.o. and gentle fluids Close monitoring telemetry floor Alcoholism Drinks 6 beers a day Banana bag IV thiamine and IV folic acid daily Alcohol withdrawal protocol with gabapentin and IV Ativan as needed Close monitor CT CT abdominal and pelvis is okay DVT prophylaxis SCDs Disposition Telemetry floor Full code (2) Alcoholism: History of Present Illness Chief Complaint: Dyspnea on exertion and chest pain on exertion Primary Care Provider: NO PCP 57-year-old male with history of trigeminal neuralgia, ongoing alcoholism drinks 6 beers per day, says he smokes weeds once in a while presents with chest pain with exertion going on for 1 week and also shortness of breath on exertion and weakness. Couple of weeks ago he had a black stool but he attributes it to Pepto-Bismol. Denies any blood in the stool. No hematuria. No abdominal pain. No nausea vomiting. Once in a while he feels food stuck in his esophagus. Denies any headache or dizziness. No earache or runny nose or sore throat. No cough. No fevers. Currently resting comfortably and hemodynamically stable. Past medical history as mentioned above Past surgical history suboccipital craniectomy left side in 2018. Spinal fluid tap for drainage in 2018 Social history says drinks 6 beers every day. Smokes weed once in a while. Denies any smoking. Family history father had stroke Allergies Allergy/AdvReac Type Severity Reaction Status Date / Time carbamazepine [From Tegretol] Allergy Rash Unverified 04/11/21 10:51 Home Medications Medication Instructions Recorded Confirmed Type ciprofloxacin HCl 500 mg tablet 500 mg PO Q12H #20 tabs 04/11/21 Rx Past Med/Surg History Medical History (Updated 03/05/23 @ 23:51 by Zain Zuleta MD) Diverticulitis Social History Smoking Status: Never smoker Preferred Language: Greenlandic Feels Safe at Home: Yes Review of Systems Review of Systems: All systems reviewed & are unremarkable except as noted in Subjective Physical Exam Physical Exam: General- Not in distress Head- atraumatic Eyes- PERRL ENT- oropharynx clear Neck- supple, no JVD, Lungs- clear to auscultation and percussion Heart- regular rhythm; no murmur, no gallop, no rub appreciated Abdomen- normal bowel sounds, soft, nontender, no masses no distension Extremities- no pretibial edema, no erythema seen Neuro- alert, oriented x 3; PERRL, no facial palsy; no dysarthria Non focal. Skin- warm & dry Results & Data Results & Data Vital Signs (Past 12 Hours) Vital Signs Temp Pulse Pulse Resp BP BP Pulse Ox 03/05/23 23:26 37.5 C 68 16 134/82 100 03/05/23 23:00 70 16 130/77 100 03/05/23 23:09 64 03/05/23 22:47 68 18 130/79 100 03/05/23 22:37 63 19 130/79 100 03/05/23 22:07 37 C 73 17 133/80 99 03/05/23 21:52 37 C 68 17 127/75 99 03/05/23 21:34 36.9 C 72 18 137/79 98 03/05/23 19:00 62 03/05/23 19:25 64 15 100 03/05/23 18:41 70 17 151/77 H 99 03/05/23 18:55 03/05/23 18:44 37 C 77 18 100/63 100 O2 Del Method 03/05/23 23:26 03/05/23 23:00 03/05/23 23:09 03/05/23 22:47 03/05/23 22:37 03/05/23 22:07 03/05/23 21:52 03/05/23 21:34 03/05/23 19:00 03/05/23 19:25 Room Air 03/05/23 18:41 Room Air 03/05/23 18:55 Room Air 03/05/23 18:44 Room Air Diagnostic Findings Laboratory Results WBC 8.76 K/ul (4.8-10.8) 03/05/23 18:55 RBC 2.78 M/uL (4.70-6.10) L 03/05/23 18:55 Hgb 6.9 g/dl (14.0-18.0) L* 03/05/23 18:55 Hct 21.5 % (42.0-52.0) L 03/05/23 18:55 MCV 77.3 fL (80.0-100.0) L 03/05/23 18:55 MCH 24.8 pg (25.0-34.0) L 03/05/23 18:55 MCHC 32.1 g/dL (32.0-36.0) 03/05/23 18:55 RDW Std Deviation 41.9 fL (36.4-46.3) 03/05/23 18:55 RDW Coeff of Stone 14.8 % (11.5-14.5) H 03/05/23 18:55 Plt Count 534 K/uL (130-400) H 03/05/23 18:55 MPV 9.4 fL (9.4-12.4) 03/05/23 18:55 Immature Gran % (Auto) 0.2 % 03/05/23 18:55 Neut % (Auto) 60.7 % 03/05/23 18:55 Lymph % (Auto) 22.6 % 03/05/23 18:55 [place] % (Auto) 15.1 % 03/05/23 18:55 Eos % (Auto) 0.8 % 03/05/23 18:55 Baso % (Auto) 0.6 % 03/05/23 18:55 Reticulocyte % (Auto) 2.1 % (0.5-2.0) H 03/05/23 20:04 Neut # (Auto) 5.32 K/uL (1.40-6.50) 03/05/23 18:55 Lymph # (Auto) 1.98 K/uL (1.2-3.4) 03/05/23 18:55 [place] # (Auto) 1.32 K/uL (0.11-0.59) H 03/05/23 18:55 Eos # (Auto) 0.07 K/uL (0-0.50) 03/05/23 18:55 Baso # (Auto) 0.05 K/uL (0-0.2) 03/05/23 18:55 Reticulocyte # 0.05 10^6/uL (0.02-0.10) 03/05/23 20:04 Immature Gran # (Auto) 0.02 K/uL (0.01-0.20) 03/05/23 18:55 Polychromasia 1+ 03/05/23 18:55 Hypochromasia Present 03/05/23 18:55 Sodium 134 mmol/L (136-145) L 03/05/23 18:55 Potassium 4.1 mmol/L (3.5-5.1) 03/05/23 18:55 Chloride 103 mmol/L (98-107) 03/05/23 18:55 Carbon Dioxide 23 mmol/L (21-32) 03/05/23 18:55 Anion Gap 8 (3-11) 03/05/23 18:55 BUN 13 mg/dl (6-23) 03/05/23 18:55 Creatinine 0.85 mg/dl (0.6-1.4) 03/05/23 18:55 Est Cr Clr Drug Dosing 94.9 ml/min 03/05/23 18:55 Est GFR ( Amer) 111.3 ml/min 03/05/23 18:55 Est GFR (Non-Af Amer) 96.0 ml/min 03/05/23 18:55 BUN/Creatinine Ratio 15.3 (10-20) 03/05/23 18:55 Glucose 92 mg/dl (70-99(Fasting)) 03/05/23 18:55 Calcium 8.9 mg/dl (8.6-10.3) 03/05/23 18:55 Phosphorus 4.2 mg/dl (2.5-4.9) 03/05/23 18:55 Magnesium 2.0 mg/dl (1.7-2.4) 03/05/23 18:55 Iron < 10 mcg/dl (35-175) L 03/05/23 20:04 Unsaturated IBC 404 mcg/dl (155-355) H 03/05/23 20:04 Transferrin 331 mg/dl (200-360) 03/05/23 20:04 Ferritin 4.5 ng/ml (8-388) L 03/05/23 20:04 Total Bilirubin 0.3 mg/dl (0.2-1.0) 03/05/23 18:55 AST 12 U/L (13-39) L 03/05/23 18:55 ALT 9 U/L (7-52) 03/05/23 18:55 Alkaline Phosphatase 65 U/L (34-104) 03/05/23 18:55 Troponin I High Sens < 2.3 pg/ml (0-20) 03/05/23 21:30 Total Protein 6.8 gm/dl (6.0-8.3) 03/05/23 18:55 Albumin 4.1 gm/dl (3.4-5.0) 03/05/23 18:55 Globulin 2.7 gm/dl (2.5-4.0) 03/05/23 18:55 Albumin/Globulin Ratio 1.5 (0.9-2) 03/05/23 18:55 Lipase 20 U/L (11-82) 03/05/23 18:55 SARS-CoV-2, RNA, NAAT NEGATIVE (NEGATIVE) 03/05/23 Unknown Blood Type A Positive 03/05/23 20:04 Blood Type Recheck A Positive 03/05/23 20:28 Antibody Screen NEGATIVE 03/05/23 20:04 Crossmatch See Detail 03/05/23 20:04 Impressions Chest X-Ray 03/05/23 19:03 XR chest 1V portable CLINICAL HISTORY: Chest pain, nonspecific COMPARISON STUDY: Chest radiograph January 15, 2015. FINDINGS: Lung volumes are normal. Lungs are clear. There is no pneumothorax or pleural effusion. Cardiac size is normal. Mediastinal contours are normal. There is no evidence for pulmonary edema. IMPRESSION: No acute cardiopulmonary findings. ACT 112: Negative or not required by law. Electronically signed by: Mele Umanzor M.D. 03/05/2023 7:29 PM Abdomen/Pelvis CT 03/05/23 19:50 Exam(s): CT ABDOMEN + PELVIS With Contrast IV Amt: 94 ml optiray 320 EXAM: CT Abdomen and Pelvis With Intravenous Contrast CLINICAL HISTORY: Reason for exam: abd pain/chest pain, anemia. TECHNIQUE: Axial computed tomography images of the abdomen and pelvis with intravenous contrast. CTDI is 12.05 mGy and DLP is 559.15 mGy-cm. Automated exposure control was utilized for the study. A dose lowering technique was utilized adhering to the principles of ALARA. CONTRAST: Patient received 94 ml optiray 320 of IV contrast COMPARISON: No relevant prior studies available. FINDINGS: Lung bases: Unremarkable. No mass. No consolidation. Mediastinum: Small hiatal hernia. ABDOMEN: Liver: Unremarkable. No mass. Gallbladder and bile ducts: Unremarkable. No calcified stones. No ductal dilation. Pancreas: Unremarkable. No mass. No ductal dilation. Spleen: Unremarkable. No splenomegaly. Adrenals: Unremarkable. No mass. Kidneys and ureters: Unremarkable. No solid mass. No hydronephrosis. Stomach and bowel: Diverticulosis, without acute diverticulitis. No small bowel obstruction. No free intraperitoneal air. PELVIS: Appendix: Normal appendix. Bladder: Unremarkable. No mass. Reproductive: Unremarkable as visualized. ABDOMEN and PELVIS: Intraperitoneal space: Unremarkable. No free air. No significant fluid collection. Bones/joints: Degenerative changes of the spine. No acute fracture. No dislocation. Soft tissues: Unremarkable. Vasculature: Atherosclerotic changes of the aorta. No abdominal aortic aneurysm. Lymph nodes: Unremarkable. No enlarged lymph nodes. IMPRESSION: 1. Normal appendix. 2. Small hiatal hernia. 3. Diverticulosis, without acute diverticulitis. No small bowel obstruction. No free intraperitoneal air. Electronically signed by: Thierno Abbott MD 03/05/23 21:58 PM ECG Additional Comments: ECG normal sinus rhythm with rate of 70. No acute ST changes seen Code Status & VTE Plan VTE Prophylaxis Plan VTE Prophylaxis will be ordered: Yes
[2023-03-06] MEDS ORDERED: CEROVITE ADV FORMULA TAB PO STA (01:36)
[2023-03-06] MEDS ORDERED: FUROSEMIDE INJ 20 MG/2 ML VIAL IV ONE (01:36)
[2023-03-06] MEDS ORDERED: GABAPENTIN 1200MG ALCOHOL WITHDRAWAL LOAD PO STA (01:36)
[2023-03-06] MEDS ORDERED: NITROGLYCERIN SL 0.4 MG/TAB TAB SL PRN (01:36)
[2023-03-06] MEDS ORDERED: Ativan IV Alcohol Withdrawal--Active Protocol IV PRN (01:36)
[2023-03-06] MEDS ORDERED: LORazepam 2 MG/1 ML VIAL IV PRN ×3 (01:36)
[2023-03-06] MEDS ORDERED: SODIUM CHLORIDE 0.9% 250 ML IV PRN (01:36)
[2023-03-06] MEDS ORDERED: GABAPENTIN 600 MG TAB PO ONE (02:00)
[2023-03-06] MEDS ORDERED: THIAMINE HCL 100 MG, FOLIC ACID 1 MG in SODIUM CHLORIDE 0.9% 1000ML 1,000 ML IV SCH (02:00)
[2023-03-06] MEDS: PANTOprazole 40 MG in DEXTROSE 5% 100 ML IV SCH ×5 (03:24→23:01)
[2023-03-06] MEDS: GABAPENTIN 600 MG TAB PO SCH ×3 (06:37→19:44)
[2023-03-06 07:21] LABS: Basophils # (auto) 0.06 K/uL (0-0.2); Basophils % (auto) 0.9 %; Eosinophils # (auto) 0.05 K/uL (0-0.50); Eosinophils % (auto) 0.7 %; Immature Granulocytes # (auto) 0.02 K/uL (0.01-0.20); Immature Granulocytes % (auto) 0.3 %; Lymphocytes # (auto) 1.18 K/uL (1.2-3.4); Lymphocytes % (auto) 17.2 %; Mean Corpuscular Hemoglobin 26.5 pg (25.0-34.0); Mean Corpuscular Hgb Conc 33.3 g/dL (32.0-36.0); Mean Corpuscular Volume 79.6 fL (80.0-100.0); Mean Platelet Volume 9.3 fL (9.4-12.4); Monocytes # (auto) 1.03 K/uL (0.11-0.59); Neutrophils # (auto) 4.52 K/uL (1.40-6.50); Neutrophils % (auto) 65.9 %; Platelet Count 425 K/uL (130-400); RDW Standard Deviation 43.6 fL (36.4-46.3); Red Blood Count 3.39 M/uL (4.70-6.10); White Blood Count 6.86 K/ul (4.8-10.8)
--- NOTE | 2023-03-06 07:51 | Electrocardiogram Report ---
Test Reason : Blood Pressure : / mmHG Vent. Rate : 078 BPM Atrial Rate : 078 BPM P-R Int : 138 ms QRS Dur : 074 ms QT Int : 362 ms P-R-T Axes : 028 063 057 degrees QTc Int : 412 ms Normal sinus rhythm Normal ECG When compared with ECG of 17-JAN-2015 18:42, Premature atrial complexes are no longer Present Confirmed by Roberto Wisdom ([id number]) on 03/06/2023 7:51:07 AM Referred By: REFERRED SELF Confirmed By:Roberto Wisdom
--- NOTE | 2023-03-06 07:51 | Electrocardiogram Report ---
Test Reason : Blood Pressure : / mmHG Vent. Rate : 064 BPM Atrial Rate : 064 BPM P-R Int : 148 ms QRS Dur : 086 ms QT Int : 416 ms P-R-T Axes : 035 029 022 degrees QTc Int : 429 ms Normal sinus rhythm Normal ECG When compared with ECG of 05-MAR-2023 18:51, No significant change was found Confirmed by Roberto Wisdom ([id number]) on 03/06/2023 7:50:59 AM Referred By: REFERRED SELF Confirmed By:Roberto Wisdom
[2023-03-06 07:57] LABS: Alanine Aminotransferase 8 U/L (7-52); Albumin Level 3.7 gm/dl (3.4-5.0); Alkaline Phosphatase 64 U/L (34-104); Anion Gap 8 (3-11); Aspartate Aminotransferase 13 U/L (13-39); BUN Creatinine Ratio 11.7 (10-20); Bilirubin Direct 0.2 mg/dl (0-0.2); Blood Urea Nitrogen 9 mg/dl (6-23); Calcium 8.6 mg/dl (8.6-10.3); Carbon Dioxide 24 mmol/L (21-32); Chloride 105 mmol/L (98-107); Creatinine Clr Calc Pharmacy 102.8 ml/min; Est GFR (African American) 115.9 ml/min; Glucose 109 mg/dl (70-99(Fasting)); Magnesium 1.9 mg/dl (1.7-2.4); Potassium 3.7 mmol/L (3.5-5.1); Sodium 137 mmol/L (136-145); Total Protein 6.4 gm/dl (6.0-8.3)
--- NOTE | 2023-03-06 08:04 | Hospitalist Progress Note ---
Date of Service March 06, 2023 Assessment & Plan (1) Symptomatic anemia: Plan: 57-year-old male presents with symptomatic anemia. Symptomatic anemia Possible from alcoholism Denies any [id number] ibuprofen or Aleve. Rarely takes ibuprofen Has dyspnea on exertion Has chest pain on exertion EKG and troponins are negative serial enzymes followed and echo obtained, cardiology consulted Echo -there is mild concentric LVH. LV systolic function is normal. LVEF 55 to 60%. LV wall motion is normal. Grade 1 diastolic dysfunction. There is trace tricuspid regurg. Per cardiology - symptoms secondary to anemia and ok to proceed w/ endoscopy Stool for Hemoccult Received 2 units of PRBC Follow H&H -> Hgb improved On PPI drip GI consulted - plan for endoscopy either inpt or outpt Clear liquid diet for now, NPO after MN, cont. gentle fluids Close monitoring telemetry floor 03/06 patient feels overall improved after blood transfusion. Denies any more chest pain. Continues to have epigastric discomfort. Denies any blood in the stool. As above, patient was seen by cardiology and by GI. [place] to proceed with endoscopy. Alcoholism Drinks 6 beers a day Banana bag IV thiamine and IV folic acid daily Alcohol withdrawal protocol with gabapentin and IV Ativan as needed Close monitor CT abdomen/pelvis - ABDOMEN and PELVIS: Intraperitoneal space: Unremarkable. No free air. No significant fluid collection. Bones/joints: Degenerative changes of the spine. No acute fracture. No dislocation. Soft tissues: Unremarkable. Vasculature: Atherosclerotic changes of the aorta. No abdominal aortic aneurysm. Lymph nodes: Unremarkable. No enlarged lymph nodes. IMPRESSION: 1. Normal appendix. 2. Small hiatal hernia. 3. Diverticulosis, without acute diverticulitis. No small bowel obstruction. No free intraperitoneal air. DVT prophylaxis SCDs Disposition- Telemetry floor Full code (2) Alcoholism: Admission and Anticipated Discharge Date Admission Date: March 05, 2023 Subjective Pt seen in follow up of anemia received 2 units of pRBC on admission Currently sitting up in bed, in no acute distress. Says that chest pain resolved. Denies any blood in the stool. Continues to have some epigastric discomfort. No shortness of breath, no dizziness no lightheadedness. Cont. to be on IV PPI Seen by cardiology as well. Review of Systems Review of Systems: All systems reviewed & are unremarkable except as noted in Subjective Physical Exam Physical Exam: General- WD/WN M in NAD Head- atraumatic Eyes- PERRL ENT- oropharynx clear Neck- supple, no JVD Lungs- clear to auscultation and percussion Heart- regular rhythm; no murmur, no gallop, no rub appreciated Abdomen- normal bowel sounds, soft, nontender, no masses no distension Extremities- no pretibial edema, no erythema seen Neuro- alert, oriented x 3; PERRL, no facial palsy; no dysarthria, moves extremities Skin- warm & dry Results & Data Results & Data Vital Signs (Past 12 Hours) Vital Signs Temp Pulse Pulse Resp BP BP Pulse Ox 03/06/23 07:08 36.5 C 62 18 110/67 98 03/06/23 04:44 36.4 C L 61 18 126/79 99 03/06/23 04:21 36.9 C 66 20 123/81 98 03/06/23 03:00 36.7 C 60 18 140/90 98 03/06/23 01:31 62 03/06/23 03:21 36.8 C 60 18 140/90 98 03/06/23 03:21 36.8 C 60 18 146/90 H 99 03/06/23 02:34 36.9 C 70 16 119/71 100 03/06/23 02:51 36.8 C 66 18 132/79 98 03/06/23 02:36 36.9 C 62 20 120/75 99 03/06/23 02:36 36.9 C 62 20 120/75 99 03/06/23 02:14 36.7 C 63 18 122/78 98 03/06/23 00:28 74 18 137/77 98 03/06/23 00:00 66 18 117/80 99 03/05/23 23:26 37.5 C 68 16 134/82 100 03/05/23 23:00 70 16 130/77 100 03/05/23 23:09 64 03/05/23 22:47 68 18 130/79 100 03/05/23 22:37 63 19 130/79 100 03/05/23 22:07 37 C 73 17 133/80 99 03/05/23 21:52 37 C 68 17 127/75 99 03/05/23 21:34 36.9 C 72 18 137/79 98 O2 Del Method O2 Flow Rate 03/06/23 07:08 Room Air 03/06/23 04:44 03/06/23 04:21 03/06/23 03:00 Room Air 03/06/23 01:31 03/06/23 03:21 03/06/23 03:21 03/06/23 02:34 Room Air 03/06/23 02:51 03/06/23 02:36 0 03/06/23 02:36 03/06/23 02:14 0 03/06/23 00:28 Room Air 03/06/23 00:00 Room Air 03/05/23 23:26 03/05/23 23:00 03/05/23 23:09 03/05/23 22:47 03/05/23 22:37 03/05/23 22:07 03/05/23 21:52 03/05/23 21:34 Laboratory Results 03/06/23 03/06/23 03/06/23 Range/Units 06:48 06:48 06:48 WBC (4.8-10.8) K/ul RBC (4.70-6.10) M/uL Hgb (14.0-18.0) g/dl Hct (42.0-52.0) % MCV (80.0-100.0) fL MCH (25.0-34.0) pg MCHC (32.0-36.0) g/dL RDW Std Deviation (36.4-46.3) fL RDW Coeff of Stone (11.5-14.5) % Plt Count (130-400) K/uL MPV (9.4-12.4) fL Immature Gran % (Auto) % Neut % (Auto) % Lymph % (Auto) % [place] % (Auto) % Eos % (Auto) % Baso % (Auto) % Reticulocyte % (Auto) (0.5-2.0) % Neut # (Auto) (1.40-6.50) K/uL Lymph # (Auto) (1.2-3.4) K/uL [place] # (Auto) (0.11-0.59) K/uL Eos # (Auto) (0-0.50) K/uL Baso # (Auto) (0-0.2) K/uL Reticulocyte # (0.02-0.10) 10^6/uL Immature Gran # (Auto) (0.01-0.20) K/uL Polychromasia Hypochromasia Sodium 137 (136-145) mmol/L Potassium 3.7 (3.5-5.1) mmol/L Chloride 105 (98-107) mmol/L Carbon Dioxide 24 (21-32) mmol/L Anion Gap 8 (3-11) BUN 9 (6-23) mg/dl Creatinine 0.77 (0.6-1.4) mg/dl Est Cr Clr Drug Dosing 102.8 ml/min Est GFR ( Amer) 115.9 ml/min Est GFR (Non-Af Amer) 100.0 ml/min BUN/Creatinine Ratio 11.7 (10-20) Glucose 109 H (70-99(Fasting)) mg/dl Calcium 8.6 (8.6-10.3) mg/dl Phosphorus (2.5-4.9) mg/dl Magnesium 1.9 (1.7-2.4) mg/dl Iron (35-175) mcg/dl Unsaturated IBC (155-355) mcg/dl Transferrin (200-360) mg/dl Ferritin (8-388) ng/ml Total Bilirubin 1.0 D (0.2-1.0) mg/dl Direct Bilirubin 0.2 (0-0.2) mg/dl AST 13 (13-39) U/L ALT 8 (7-52) U/L Alkaline Phosphatase 64 (34-104) U/L Troponin I High Sens Pending (0-20) pg/ml Total Protein 6.4 (6.0-8.3) gm/dl Albumin 3.7 (3.4-5.0) gm/dl Globulin (2.5-4.0) gm/dl Albumin/Globulin Ratio (0.9-2) Lipase (11-82) U/L Vitamin B12 259 (180-914) pg/ml Folate Pending SARS-CoV-2, RNA, NAAT (NEGATIVE) Blood Type Blood Type Recheck Antibody Screen Crossmatch 03/06/23 03/05/23 03/05/23 Range/Units 06:48 Unknown 21:30 WBC 6.86 (4.8-10.8) K/ul RBC 3.39 L (4.70-6.10) M/uL Hgb 9.0 L (14.0-18.0) g/dl Hct 27.0 L (42.0-52.0) % MCV 79.6 L (80.0-100.0) fL MCH 26.5 (25.0-34.0) pg MCHC 33.3 (32.0-36.0) g/dL RDW Std Deviation 43.6 (36.4-46.3) fL RDW Coeff of Stone 15.0 H (11.5-14.5) % Plt Count 425 H (130-400) K/uL MPV 9.3 L (9.4-12.4) fL Immature Gran % (Auto) 0.3 % Neut % (Auto) 65.9 % Lymph % (Auto) 17.2 % [place] % (Auto) 15.0 % Eos % (Auto) 0.7 % Baso % (Auto) 0.9 % Reticulocyte % (Auto) (0.5-2.0) % Neut # (Auto) 4.52 (1.40-6.50) K/uL Lymph # (Auto) 1.18 L (1.2-3.4) K/uL [place] # (Auto) 1.03 H (0.11-0.59) K/uL Eos # (Auto) 0.05 (0-0.50) K/uL Baso # (Auto) 0.06 (0-0.2) K/uL Reticulocyte # (0.02-0.10) 10^6/uL Immature Gran # (Auto) 0.02 (0.01-0.20) K/uL Polychromasia Hypochromasia Sodium (136-145) mmol/L Potassium (3.5-5.1) mmol/L Chloride (98-107) mmol/L Carbon Dioxide (21-32) mmol/L Anion Gap (3-11) BUN (6-23) mg/dl Creatinine (0.6-1.4) mg/dl Est Cr Clr Drug Dosing ml/min Est GFR ( Amer) ml/min Est GFR (Non-Af Amer) ml/min BUN/Creatinine Ratio (10-20) Glucose (70-99(Fasting)) mg/dl Calcium (8.6-10.3) mg/dl Phosphorus (2.5-4.9) mg/dl Magnesium (1.7-2.4) mg/dl Iron (35-175) mcg/dl Unsaturated IBC (155-355) mcg/dl Transferrin (200-360) mg/dl Ferritin (8-388) ng/ml Total Bilirubin (0.2-1.0) mg/dl Direct Bilirubin (0-0.2) mg/dl AST (13-39) U/L ALT (7-52) U/L Alkaline Phosphatase (34-104) U/L Troponin I High Sens < 2.3 (0-20) pg/ml Total Protein (6.0-8.3) gm/dl Albumin (3.4-5.0) gm/dl Globulin (2.5-4.0) gm/dl Albumin/Globulin Ratio (0.9-2) Lipase (11-82) U/L Vitamin B12 (180-914) pg/ml Folate SARS-CoV-2, RNA, NAAT NEGATIVE (NEGATIVE) Blood Type Blood Type Recheck Antibody Screen Crossmatch 03/05/23 03/05/23 03/05/23 Range/Units 20:28 20:04 20:04 WBC (4.8-10.8) K/ul RBC (4.70-6.10) M/uL Hgb (14.0-18.0) g/dl Hct (42.0-52.0) % MCV (80.0-100.0) fL MCH (25.0-34.0) pg MCHC (32.0-36.0) g/dL RDW Std Deviation (36.4-46.3) fL RDW Coeff of Stone (11.5-14.5) % Plt Count (130-400) K/uL MPV (9.4-12.4) fL Immature Gran % (Auto) % Neut % (Auto) % Lymph % (Auto) % [place] % (Auto) % Eos % (Auto) % Baso % (Auto) % Reticulocyte % (Auto) (0.5-2.0) % Neut # (Auto) (1.40-6.50) K/uL Lymph # (Auto) (1.2-3.4) K/uL [place] # (Auto) (0.11-0.59) K/uL Eos # (Auto) (0-0.50) K/uL Baso # (Auto) (0-0.2) K/uL Reticulocyte # (0.02-0.10) 10^6/uL Immature Gran # (Auto) (0.01-0.20) K/uL Polychromasia Hypochromasia Sodium (136-145) mmol/L Potassium (3.5-5.1) mmol/L Chloride (98-107) mmol/L Carbon Dioxide (21-32) mmol/L Anion Gap (3-11) BUN (6-23) mg/dl Creatinine (0.6-1.4) mg/dl Est Cr Clr Drug Dosing ml/min Est GFR ( Amer) ml/min Est GFR (Non-Af Amer) ml/min BUN/Creatinine Ratio (10-20) Glucose (70-99(Fasting)) mg/dl Calcium (8.6-10.3) mg/dl Phosphorus (2.5-4.9) mg/dl Magnesium (1.7-2.4) mg/dl Iron < 10 L (35-175) mcg/dl Unsaturated IBC 404 H (155-355) mcg/dl Transferrin 331 (200-360) mg/dl Ferritin 4.5 L (8-388) ng/ml Total Bilirubin (0.2-1.0) mg/dl Direct Bilirubin (0-0.2) mg/dl AST (13-39) U/L ALT (7-52) U/L Alkaline Phosphatase (34-104) U/L Troponin I High Sens (0-20) pg/ml Total Protein (6.0-8.3) gm/dl Albumin (3.4-5.0) gm/dl Globulin (2.5-4.0) gm/dl Albumin/Globulin Ratio (0.9-2) Lipase (11-82) U/L Vitamin B12 (180-914) pg/ml Folate SARS-CoV-2, RNA, NAAT (NEGATIVE) Blood Type A Positive Blood Type Recheck A Positive Antibody Screen NEGATIVE Crossmatch See Detail 03/05/23 03/05/23 03/05/23 Range/Units 20:04 18:55 18:55 WBC 8.76 (4.8-10.8) K/ul RBC 2.78 L (4.70-6.10) M/uL Hgb 6.9 L* (14.0-18.0) g/dl Hct 21.5 L (42.0-52.0) % MCV 77.3 L (80.0-100.0) fL MCH 24.8 L (25.0-34.0) pg MCHC 32.1 (32.0-36.0) g/dL RDW Std Deviation 41.9 (36.4-46.3) fL RDW Coeff of Stone 14.8 H (11.5-14.5) % Plt Count 534 H (130-400) K/uL MPV 9.4 (9.4-12.4) fL Immature Gran % (Auto) 0.2 % Neut % (Auto) 60.7 % Lymph % (Auto) 22.6 % [place] % (Auto) 15.1 % Eos % (Auto) 0.8 % Baso % (Auto) 0.6 % Reticulocyte % (Auto) 2.1 H (0.5-2.0) % Neut # (Auto) 5.32 (1.40-6.50) K/uL Lymph # (Auto) 1.98 (1.2-3.4) K/uL [place] # (Auto) 1.32 H (0.11-0.59) K/uL Eos # (Auto) 0.07 (0-0.50) K/uL Baso # (Auto) 0.05 (0-0.2) K/uL Reticulocyte # 0.05 (0.02-0.10) 10^6/uL Immature Gran # (Auto) 0.02 (0.01-0.20) K/uL Polychromasia 1+ Hypochromasia Present Sodium 134 L (136-145) mmol/L Potassium 4.1 (3.5-5.1) mmol/L Chloride 103 (98-107) mmol/L Carbon Dioxide 23 (21-32) mmol/L Anion Gap 8 (3-11) BUN 13 (6-23) mg/dl Creatinine 0.85 (0.6-1.4) mg/dl Est Cr Clr Drug Dosing 94.9 ml/min Est GFR ( Amer) 111.3 ml/min Est GFR (Non-Af Amer) 96.0 ml/min BUN/Creatinine Ratio 15.3 (10-20) Glucose 92 (70-99(Fasting)) mg/dl Calcium 8.9 (8.6-10.3) mg/dl Phosphorus 4.2 (2.5-4.9) mg/dl Magnesium 2.0 (1.7-2.4) mg/dl Iron (35-175) mcg/dl Unsaturated IBC (155-355) mcg/dl Transferrin (200-360) mg/dl Ferritin (8-388) ng/ml Total Bilirubin 0.3 (0.2-1.0) mg/dl Direct Bilirubin (0-0.2) mg/dl AST 12 L (13-39) U/L ALT 9 (7-52) U/L Alkaline Phosphatase 65 (34-104) U/L Troponin I High Sens < 2.3 (0-20) pg/ml Total Protein 6.8 (6.0-8.3) gm/dl Albumin 4.1 (3.4-5.0) gm/dl Globulin 2.7 (2.5-4.0) gm/dl Albumin/Globulin Ratio 1.5 (0.9-2) Lipase 20 (11-82) U/L Vitamin B12 (180-914) pg/ml Folate SARS-CoV-2, RNA, NAAT (NEGATIVE) Blood Type Blood Type Recheck Antibody Screen Crossmatch Medications Administered Current Inpatient Medications Gabapentin (Gabapentin 600 Mg Tab) 600 mg PO Q24H GREG Stop: 03/09/23 12:01 Gabapentin (Gabapentin 600 Mg Tab) 600 mg PO Q12H GREG Stop: 03/08/23 12:01 Gabapentin (Gabapentin 600 Mg Tab) 600 mg PO Q6H GREG Stop: 03/06/23 12:01 Last Admin: 03/06/23 06:37 Dose: 600 mg Gabapentin (Gabapentin 600 Mg Tab) 600 mg PO Q8H GREG Stop: 03/07/23 12:01 Pantoprazole Sodium 40 mg/ (Dextrose) 100 mls @ 20 mls/hr IV Q5H GREG Stop: 04/04/23 21:59 Last Admin: 03/06/23 03:24 Dose: 8 mg/hr, 20 mls/hr Sodium Chloride (Nss 1000ml) 1,000 mls @ 80 mls/hr IV .[id number] GREG Stop: 04/05/23 01:35 Sodium Chloride (Nss) 250 mls @ 15 mls/hr IV .[id number] PRN PRN Reason: For Transfusion Duration Stop: 03/06/23 11:37 Thiamine HCl 100 mg/ Syringe 10 mls @ 2 mls/min IV QAM GREG Stop: 04/05/23 08:59 Folic Acid 1 mg/ Syringe 10 mls @ 5 mls/min IV QAM GREG Stop: 04/05/23 08:59 Lorazepam (Lorazepam 2 Mg/1 Ml Vial) 1 mg IV UD PRN; Protocol PRN Reason: EtOH Withdrawal AWSS Score 6,7 Stop: 04/05/23 01:35 Lorazepam (Lorazepam 2 Mg/1 Ml Vial) 2 mg IV UD PRN; Protocol PRN Reason: EtOH Withdrawal AWSS Score 8,9 Stop: 04/05/23 01:35 Lorazepam (Lorazepam 2 Mg/1 Ml Vial) 3 mg IV ONCE PRN; Protocol PRN Reason: EtOH Withdrawal AWSS Score 10+ Nitroglycerin (Nitroglycerin Sl 0.4 Mg/Tab Tab) 0.4 mg SL Q5M PRN PRN Reason: Chest Pain Stop: 04/05/23 01:35
[2023-03-06] MEDS: THIAMINE HCL 100 MG in SYRINGE 9 ML IV SCH (08:30)
[2023-03-06] MEDS: FOLIC ACID 1 MG in SYRINGE 9.8 ML IV SCH (08:30)
[2023-03-06 09:03] LABS: Troponin I High Sensitivity < 2.3 pg/ml (0-20)
--- NOTE | 2023-03-06 09:03 | Gastrointestinal Consultation ---
Date of Consultation March 06, 2023 Assessment & Plan (1) Symptomatic anemia: Pleasant man with chest pain and CONNORS who was found to have iron deficiency anemia. By definition this is a chronic process and not acute bleeding. Once cardiology has finished their workup then he does need EGD and colonoscopy as he has never had this before. This can be done as an outpatient and he would prefer it be done as such. Would like to know he has no CADz before proceeding on. He is scheduled with a new PCP soon and will make appt with GI of choice after discharge. History of Present Illness Reason for Consultation: anemia Attending Physician: Ronald Dillon MD History of Present Illness 57 year old man admitted with one week of dyspnea on exertion associated with chest pain. On admit he was found to have iron deficiency anemia. He denies problems with his GI tract. He never sees blood in his stool. He has had black stools once after taking pepto. He has normal bowel movements. He denies heartburn and indigestion. He does have rare dysphagia and has had none in some time now. He drinks 6+ beers per day. Allergies Allergy/AdvReac Type Severity Reaction Status Date / Time carbamazepine [From Tegretol] Allergy Rash Unverified 04/11/21 10:51 Home Medications Medication Instructions Recorded Confirmed Type ciprofloxacin HCl 500 mg tablet 500 mg PO Q12H #20 tabs 04/11/21 Rx Patient History Medical History Diverticulitis Social History Smoking Status: Former smoker Second Hand Exposure: No; Do You Dip or Chew Tobacco: No; Tobacco Cessation Education Requested by Patient: No Hx Alcohol Use: Yes Alcohol type: beer Hx Substance Use: Yes Preferred Language: Kittitian Communication Ability: Effective Traffic Control Technician Required: No Beliefs That Will Affect Care: None Current Living Situation: Spouse Other Information That Helps Us Care for You: No Feels Safe at Home: Yes Safety Concerns: Feels Safe At This Time Assistive Devices: Glasses and Other Assistive Devices Comment: upper and lower partials Review of Systems Review of Systems: All systems reviewed & are unremarkable except as noted in HPI & below Physical Exam Constitutional: WD/WN, vitals as above no acute distress Eyes: PERRL, conjunctivae normal, anicteric sclerae ENMT: external ear and nose normal, oropharynx normal Neck: trachea midline, no thyromegaly Respiratory: normal respiratory effort, lungs clear to auscultation Cardiovascular: RRR, no murmur, no edema Gastrointestinal (Abdomen): normal bowel sounds, soft, nontender, no hepatosplenomegaly Musculoskeletal: Extremities: no cyanosis and no clubbing Skin: no rashes, warm and dry Neurologic: PERRL, EOMI, accommodation nl, no face palsy, no dysarthria Psychiatric: Orientation: alert and oriented x 3 Results & Data Vital Signs (Past 12 Hours) Vital Signs Temp Pulse Pulse Resp BP BP Pulse Ox 03/06/23 07:08 36.5 C 62 18 110/67 98 03/06/23 04:44 36.4 C L 61 18 126/79 99 03/06/23 04:21 36.9 C 66 20 123/81 98 03/06/23 03:00 36.7 C 60 18 140/90 98 03/06/23 01:31 62 03/06/23 03:21 36.8 C 60 18 140/90 98 03/06/23 03:21 36.8 C 60 18 146/90 H 99 03/06/23 02:34 36.9 C 70 16 119/71 100 03/06/23 02:51 36.8 C 66 18 132/79 98 03/06/23 02:36 36.9 C 62 20 120/75 99 03/06/23 02:36 36.9 C 62 20 120/75 99 03/06/23 02:14 36.7 C 63 18 122/78 98 03/06/23 00:28 74 18 137/77 98 03/06/23 00:00 66 18 117/80 99 03/05/23 23:26 37.5 C 68 16 134/82 100 03/05/23 23:00 70 16 130/77 100 03/05/23 23:09 64 03/05/23 22:47 68 18 130/79 100 03/05/23 22:37 63 19 130/79 100 03/05/23 22:07 37 C 73 17 133/80 99 03/05/23 21:52 37 C 68 17 127/75 99 03/05/23 21:34 36.9 C 72 18 137/79 98 O2 Del Method O2 Flow Rate 03/06/23 07:08 Room Air 03/06/23 04:44 03/06/23 04:21 03/06/23 03:00 Room Air 03/06/23 01:31 03/06/23 03:21 03/06/23 03:21 03/06/23 02:34 Room Air 03/06/23 02:51 03/06/23 02:36 0 03/06/23 02:36 03/06/23 02:14 0 03/06/23 00:28 Room Air 03/06/23 00:00 Room Air 03/05/23 23:26 03/05/23 23:00 03/05/23 23:09 03/05/23 22:47 03/05/23 22:37 03/05/23 22:07 03/05/23 21:52 03/05/23 21:34 Laboratory Results 03/06/23 03/06/23 03/06/23 Range/Units 06:48 06:48 06:48 WBC (4.8-10.8) K/ul RBC (4.70-6.10) M/uL Hgb (14.0-18.0) g/dl Hct (42.0-52.0) % MCV (80.0-100.0) fL MCH (25.0-34.0) pg MCHC (32.0-36.0) g/dL RDW Std Deviation (36.4-46.3) fL RDW Coeff of Stone (11.5-14.5) % Plt Count (130-400) K/uL MPV (9.4-12.4) fL Immature Gran % (Auto) % Neut % (Auto) % Lymph % (Auto) % Wood % (Auto) % Eos % (Auto) % Baso % (Auto) % Reticulocyte % (Auto) (0.5-2.0) % Neut # (Auto) (1.40-6.50) K/uL Lymph # (Auto) (1.2-3.4) K/uL Wood # (Auto) (0.11-0.59) K/uL Eos # (Auto) (0-0.50) K/uL Baso # (Auto) (0-0.2) K/uL Reticulocyte # (0.02-0.10) 10^6/uL Immature Gran # (Auto) (0.01-0.20) K/uL Polychromasia Hypochromasia Sodium 137 (136-145) mmol/L Potassium 3.7 (3.5-5.1) mmol/L Chloride 105 (98-107) mmol/L Carbon Dioxide 24 (21-32) mmol/L Anion Gap 8 (3-11) BUN 9 (6-23) mg/dl Creatinine 0.77 (0.6-1.4) mg/dl Est Cr Clr Drug Dosing 102.8 ml/min Est GFR ( Amer) 115.9 ml/min Est GFR (Non-Af Amer) 100.0 ml/min BUN/Creatinine Ratio 11.7 (10-20) Glucose 109 H (70-99(Fasting)) mg/dl Calcium 8.6 (8.6-10.3) mg/dl Phosphorus (2.5-4.9) mg/dl Magnesium 1.9 (1.7-2.4) mg/dl Iron (35-175) mcg/dl Unsaturated IBC (155-355) mcg/dl Transferrin (200-360) mg/dl Ferritin (8-388) ng/ml Total Bilirubin 1.0 D (0.2-1.0) mg/dl Direct Bilirubin 0.2 (0-0.2) mg/dl AST 13 (13-39) U/L ALT 8 (7-52) U/L Alkaline Phosphatase 64 (34-104) U/L Troponin I High Sens Pending (0-20) pg/ml Total Protein 6.4 (6.0-8.3) gm/dl Albumin 3.7 (3.4-5.0) gm/dl Globulin (2.5-4.0) gm/dl Albumin/Globulin Ratio (0.9-2) Lipase (11-82) U/L Vitamin B12 259 (180-914) pg/ml Folate > 22.30 (>5.38) ng/ml SARS-CoV-2, RNA, NAAT (NEGATIVE) Blood Type Blood Type Recheck Antibody Screen Crossmatch 03/06/23 03/05/23 03/05/23 Range/Units 06:48 Unknown 21:30 WBC 6.86 (4.8-10.8) K/ul RBC 3.39 L (4.70-6.10) M/uL Hgb 9.0 L (14.0-18.0) g/dl Hct 27.0 L (42.0-52.0) % MCV 79.6 L (80.0-100.0) fL MCH 26.5 (25.0-34.0) pg MCHC 33.3 (32.0-36.0) g/dL RDW Std Deviation 43.6 (36.4-46.3) fL RDW Coeff of Stone 15.0 H (11.5-14.5) % Plt Count 425 H (130-400) K/uL MPV 9.3 L (9.4-12.4) fL Immature Gran % (Auto) 0.3 % Neut % (Auto) 65.9 % Lymph % (Auto) 17.2 % Wood % (Auto) 15.0 % Eos % (Auto) 0.7 % Baso % (Auto) 0.9 % Reticulocyte % (Auto) (0.5-2.0) % Neut # (Auto) 4.52 (1.40-6.50) K/uL Lymph # (Auto) 1.18 L (1.2-3.4) K/uL [place] # (Auto) 1.03 H (0.11-0.59) K/uL Eos # (Auto) 0.05 (0-0.50) K/uL Baso # (Auto) 0.06 (0-0.2) K/uL Reticulocyte # (0.02-0.10) 10^6/uL Immature Gran # (Auto) 0.02 (0.01-0.20) K/uL Polychromasia Hypochromasia Sodium (136-145) mmol/L Potassium (3.5-5.1) mmol/L Chloride (98-107) mmol/L Carbon Dioxide (21-32) mmol/L Anion Gap (3-11) BUN (6-23) mg/dl Creatinine (0.6-1.4) mg/dl Est Cr Clr Drug Dosing ml/min Est GFR ( Amer) ml/min Est GFR (Non-Af Amer) ml/min BUN/Creatinine Ratio (10-20) Glucose (70-99(Fasting)) mg/dl Calcium (8.6-10.3) mg/dl Phosphorus (2.5-4.9) mg/dl Magnesium (1.7-2.4) mg/dl Iron (35-175) mcg/dl Unsaturated IBC (155-355) mcg/dl Transferrin (200-360) mg/dl Ferritin (8-388) ng/ml Total Bilirubin (0.2-1.0) mg/dl Direct Bilirubin (0-0.2) mg/dl AST (13-39) U/L ALT (7-52) U/L Alkaline Phosphatase (34-104) U/L Troponin I High Sens < 2.3 (0-20) pg/ml Total Protein (6.0-8.3) gm/dl Albumin (3.4-5.0) gm/dl Globulin (2.5-4.0) gm/dl Albumin/Globulin Ratio (0.9-2) Lipase (11-82) U/L Vitamin B12 (180-914) pg/ml Folate (>5.38) ng/ml SARS-CoV-2, RNA, NAAT NEGATIVE (NEGATIVE) Blood Type Blood Type Recheck Antibody Screen Crossmatch 03/05/23 03/05/23 03/05/23 Range/Units 20:28 20:04 20:04 WBC (4.8-10.8) K/ul RBC (4.70-6.10) M/uL Hgb (14.0-18.0) g/dl Hct (42.0-52.0) % MCV (80.0-100.0) fL MCH (25.0-34.0) pg MCHC (32.0-36.0) g/dL RDW Std Deviation (36.4-46.3) fL RDW Coeff of Stone (11.5-14.5) % Plt Count (130-400) K/uL MPV (9.4-12.4) fL Immature Gran % (Auto) % Neut % (Auto) % Lymph % (Auto) % Wood % (Auto) % Eos % (Auto) % Baso % (Auto) % Reticulocyte % (Auto) (0.5-2.0) % Neut # (Auto) (1.40-6.50) K/uL Lymph # (Auto) (1.2-3.4) K/uL Wood # (Auto) (0.11-0.59) K/uL Eos # (Auto) (0-0.50) K/uL Baso # (Auto) (0-0.2) K/uL Reticulocyte # (0.02-0.10) 10^6/uL Immature Gran # (Auto) (0.01-0.20) K/uL Polychromasia Hypochromasia Sodium (136-145) mmol/L Potassium (3.5-5.1) mmol/L Chloride (98-107) mmol/L Carbon Dioxide (21-32) mmol/L Anion Gap (3-11) BUN (6-23) mg/dl Creatinine (0.6-1.4) mg/dl Est Cr Clr Drug Dosing ml/min Est GFR ( Amer) ml/min Est GFR (Non-Af Amer) ml/min BUN/Creatinine Ratio (10-20) Glucose (70-99(Fasting)) mg/dl Calcium (8.6-10.3) mg/dl Phosphorus (2.5-4.9) mg/dl Magnesium (1.7-2.4) mg/dl Iron < 10 L (35-175) mcg/dl Unsaturated IBC 404 H (155-355) mcg/dl Transferrin 331 (200-360) mg/dl Ferritin 4.5 L (8-388) ng/ml Total Bilirubin (0.2-1.0) mg/dl Direct Bilirubin (0-0.2) mg/dl AST (13-39) U/L ALT (7-52) U/L Alkaline Phosphatase (34-104) U/L Troponin I High Sens (0-20) pg/ml Total Protein (6.0-8.3) gm/dl Albumin (3.4-5.0) gm/dl Globulin (2.5-4.0) gm/dl Albumin/Globulin Ratio (0.9-2) Lipase (11-82) U/L Vitamin B12 (180-914) pg/ml Folate (>5.38) ng/ml SARS-CoV-2, RNA, NAAT (NEGATIVE) Blood Type A Positive Blood Type Recheck A Positive Antibody Screen NEGATIVE Crossmatch See Detail 03/05/23 03/05/23 03/05/23 Range/Units 20:04 18:55 18:55 WBC 8.76 (4.8-10.8) K/ul RBC 2.78 L (4.70-6.10) M/uL Hgb 6.9 L* (14.0-18.0) g/dl Hct 21.5 L (42.0-52.0) % MCV 77.3 L (80.0-100.0) fL MCH 24.8 L (25.0-34.0) pg MCHC 32.1 (32.0-36.0) g/dL RDW Std Deviation 41.9 (36.4-46.3) fL RDW Coeff of Stone 14.8 H (11.5-14.5) % Plt Count 534 H (130-400) K/uL MPV 9.4 (9.4-12.4) fL Immature Gran % (Auto) 0.2 % Neut % (Auto) 60.7 % Lymph % (Auto) 22.6 % Wood % (Auto) 15.1 % Eos % (Auto) 0.8 % Baso % (Auto) 0.6 % Reticulocyte % (Auto) 2.1 H (0.5-2.0) % Neut # (Auto) 5.32 (1.40-6.50) K/uL Lymph # (Auto) 1.98 (1.2-3.4) K/uL Wood # (Auto) 1.32 H (0.11-0.59) K/uL Eos # (Auto) 0.07 (0-0.50) K/uL Baso # (Auto) 0.05 (0-0.2) K/uL Reticulocyte # 0.05 (0.02-0.10) 10^6/uL Immature Gran # (Auto) 0.02 (0.01-0.20) K/uL Polychromasia 1+ Hypochromasia Present Sodium 134 L (136-145) mmol/L Potassium 4.1 (3.5-5.1) mmol/L Chloride 103 (98-107) mmol/L Carbon Dioxide 23 (21-32) mmol/L Anion Gap 8 (3-11) BUN 13 (6-23) mg/dl Creatinine 0.85 (0.6-1.4) mg/dl Est Cr Clr Drug Dosing 94.9 ml/min Est GFR ( Amer) 111.3 ml/min Est GFR (Non-Af Amer) 96.0 ml/min BUN/Creatinine Ratio 15.3 (10-20) Glucose 92 (70-99(Fasting)) mg/dl Calcium 8.9 (8.6-10.3) mg/dl Phosphorus 4.2 (2.5-4.9) mg/dl Magnesium 2.0 (1.7-2.4) mg/dl Iron (35-175) mcg/dl Unsaturated IBC (155-355) mcg/dl Transferrin (200-360) mg/dl Ferritin (8-388) ng/ml Total Bilirubin 0.3 (0.2-1.0) mg/dl Direct Bilirubin (0-0.2) mg/dl AST 12 L (13-39) U/L ALT 9 (7-52) U/L Alkaline Phosphatase 65 (34-104) U/L Troponin I High Sens < 2.3 (0-20) pg/ml Total Protein 6.8 (6.0-8.3) gm/dl Albumin 4.1 (3.4-5.0) gm/dl Globulin 2.7 (2.5-4.0) gm/dl Albumin/Globulin Ratio 1.5 (0.9-2) Lipase 20 (11-82) U/L Vitamin B12 (180-914) pg/ml Folate (>5.38) ng/ml SARS-CoV-2, RNA, NAAT (NEGATIVE) Blood Type Blood Type Recheck Antibody Screen Crossmatch Diagnostic Findings Chest X-Ray 03/05/23 19:03 XR chest 1V portable CLINICAL HISTORY: Chest pain, nonspecific COMPARISON STUDY: Chest radiograph January 15, 2015. FINDINGS: Lung volumes are normal. Lungs are clear. There is no pneumothorax or pleural effusion. Cardiac size is normal. Mediastinal contours are normal. There is no evidence for pulmonary edema. IMPRESSION: No acute cardiopulmonary findings. ACT 112: Negative or not required by law. Electronically signed by: Meel Umanzor M.D. 03/05/2023 7:29 PM Abdomen/Pelvis CT 03/05/23 19:50 Exam(s): CT ABDOMEN + PELVIS With Contrast IV Amt: 94 ml optiray 320 EXAM: CT Abdomen and Pelvis With Intravenous Contrast CLINICAL HISTORY: Reason for exam: abd pain/chest pain, anemia. TECHNIQUE: Axial computed tomography images of the abdomen and pelvis with intravenous contrast. CTDI is 12.05 mGy and DLP is 559.15 mGy-cm. Automated exposure control was utilized for the study. A dose lowering technique was utilized adhering to the principles of ALARA. CONTRAST: Patient received 94 ml optiray 320 of IV contrast COMPARISON: No relevant prior studies available. FINDINGS: Lung bases: Unremarkable. No mass. No consolidation. Mediastinum: Small hiatal hernia. ABDOMEN: Liver: Unremarkable. No mass. Gallbladder and bile ducts: Unremarkable. No calcified stones. No ductal dilation. Pancreas: Unremarkable. No mass. No ductal dilation. Spleen: Unremarkable. No splenomegaly. Adrenals: Unremarkable. No mass. Kidneys and ureters: Unremarkable. No solid mass. No hydronephrosis. Stomach and bowel: Diverticulosis, without acute diverticulitis. No small bowel obstruction. No free intraperitoneal air. PELVIS: Appendix: Normal appendix. Bladder: Unremarkable. No mass. Reproductive: Unremarkable as visualized. ABDOMEN and PELVIS: Intraperitoneal space: Unremarkable. No free air. No significant fluid collection. Bones/joints: Degenerative changes of the spine. No acute fracture. No dislocation. Soft tissues: Unremarkable. Vasculature: Atherosclerotic changes of the aorta. No abdominal aortic aneurysm. Lymph nodes: Unremarkable. No enlarged lymph nodes. IMPRESSION: 1. Normal appendix. 2. Small hiatal hernia. 3. Diverticulosis, without acute diverticulitis. No small bowel obstruction. No free intraperitoneal air. Electronically signed by: Thierno Abbott MD 03/05/23 21:58 PM
[2023-03-06] MEDS: SODIUM CHLORIDE 0.9% 1000ML 1,000 ML IV SCH ×2 (09:10→21:51)
[2023-03-06 12:13] LABS: Hematocrit (blood only) 26.9 % (42.0-52.0); Hemoglobin 9.1 g/dl (14.0-18.0)
--- NOTE | 2023-03-06 15:57 | Cardiology Consultation ---
Date of Consultation March 06, 2023 Assessment & Plan (1) Chest pain: (2) Symptomatic anemia: (3) Alcoholism: * EKG performed x2 revealing sinus rhythm without repolarization changes to suggest ischemia * High-sensitivity troponin levels undetectable x4 measurements. * Echocardiogram reveals mild concentric left ventricular hypertrophy with normal biventricular systolic function and wall motion, LVEF in the range of 55-60%, with trace tricuspid regurgitation Recommend ongoing evaluation and treatment for iron deficiency anemia. His recent complaint of indigestion and exertional fatigue are consistent with the profound anemia as found on presentation. Agree with plans for pantoprazole infusion, alcohol withdrawal prophylaxis. GI input noted and appreciated. Presentation is not felt to be related to an acute coronary syndrome. Once hemoglobin deemed to be stable, would proceed with endoscopic evaluation as clinically indicated as an inpatient or outpatient. And patient felt to be clinically stable from a cardiac perspective to proceed with this. Further ischemic work-up to be delayed pending his candidacy for antiplatelet therapy. History of Present Illness Attending Physician: Ronald Dillon MD History of Present Illness Mr Yoder is a 57-year-old male seen in cardiology consultation per the request of Dr. Alanis who for the evaluation of chest discomfort. Patient notes 1/2 to 2 weeks ago onset of generalized severe easy fatigability with walking a distance of 200 yards. A week ago on Tuesday he noted a sensation of indigestion in his epigastric region that radiated into his chest and waxed and waned throughout the day but has not returned and he did not feel yesterday or today. He notes regular alcohol use tricking 6 beers per day. He takes ibuprofen occasionally, but not on a regular basis. Lab work performed on presentation yesterday revealed hemoglobin of 6.9 with microcytic indices, and iron studies consistent with iron deficiency with iron level of <10 mcg/dL, low ferritin level. He has since received 2 units of packed red blood cells. At rest he is feeling fine. 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 Grade 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 Beliefs That Will Affect Care: None Current Living Situation: Spouse Other Information That Helps Us Care for You: No Feels Safe at Home: Yes Safety Concerns: Feels Safe At This Time Assistive Devices: Glasses and Other Assistive Devices Comment: upper and lower partials Review of Systems Review of Systems: All systems reviewed & are unremarkable except as noted in HPI & below Physical Exam Constitutional: WD/WN, vitals as above Eyes: PERRL, conjunctivae normal, anicteric sclerae Respiratory: normal respiratory effort, lungs clear to auscultation Cardiovascular: RRR, no murmur, no edema Gastrointestinal (Abdomen): normal bowel sounds, soft, nontender, no hepatosplenomegaly Neurologic: PERRL, EOMI, accommodation nl, no face palsy, no dysarthria Psychiatric: A+Ox3, euthymic affect Results & Data Vital Signs (Past 12 Hours) Vital Signs Temp Pulse Pulse Resp BP BP Pulse Ox 03/06/23 15:15 59 L 03/06/23 11:34 36.7 C 66 16 115/77 97 03/06/23 09:51 63 03/06/23 07:08 36.5 C 62 18 110/67 98 03/06/23 04:44 36.4 C L 61 18 126/79 99 03/06/23 04:21 36.9 C 66 20 123/81 98 O2 Del Method 03/06/23 15:15 03/06/23 11:34 Room Air 03/06/23 09:51 03/06/23 07:08 Room Air 03/06/23 04:44 03/06/23 04:21 Laboratory Results Cardiac Enzymes 03/05/23 03/05/23 03/06/23 Range/Units 18:55 21:30 06:48 AST 12 L 13 (13-39) U/L Troponin I High Sens < 2.3 < 2.3 < 2.3 (0-20) pg/ml 03/06/23 Range/Units 11:15 AST (13-39) U/L Troponin I High Sens < 2.3 (0-20) pg/ml CBC 03/05/23 03/06/23 03/06/23 Range/Units 18:55 06:48 11:15 WBC 8.76 6.86 (4.8-10.8) K/ul RBC 2.78 L 3.39 L (4.70-6.10) M/uL Hgb 6.9 L* 9.0 L 9.1 L (14.0-18.0) g/dl Hct 21.5 L 27.0 L 26.9 L (42.0-52.0) % Plt Count 534 H 425 H (130-400) K/uL Neut # (Auto) 5.32 4.52 (1.40-6.50) K/uL Lymph # (Auto) 1.98 1.18 L (1.2-3.4) K/uL [place] # (Auto) 1.32 H 1.03 H (0.11-0.59) K/uL Eos # (Auto) 0.07 0.05 (0-0.50) K/uL Baso # (Auto) 0.05 0.06 (0-0.2) K/uL Comprehensive Metabolic Panel 03/05/23 03/06/23 Range/Units 18:55 06:48 Sodium 134 L 137 (136-145) mmol/L Potassium 4.1 3.7 (3.5-5.1) mmol/L Chloride 103 105 (98-107) mmol/L Carbon Dioxide 23 24 (21-32) mmol/L BUN 13 9 (6-23) mg/dl Creatinine 0.85 0.77 (0.6-1.4) mg/dl Glucose 92 109 H (70-99(Fasting)) mg/dl Calcium 8.9 8.6 (8.6-10.3) mg/dl Direct Bilirubin 0.2 (0-0.2) mg/dl AST 12 L 13 (13-39) U/L ALT 9 8 (7-52) U/L Alkaline Phosphatase 65 64 (34-104) U/L Total Protein 6.8 6.4 (6.0-8.3) gm/dl Albumin 4.1 3.7 (3.4-5.0) gm/dl Intake and Output 03/06/23 03/06/23 03/06/23 06:59 14:59 22:59 Intake Total 720 / 1340 1199.2 / 1199.2 Output Total 1720 / 1720 Balance -1000 / -380 1199.2 / 1199.2 Intake: IV 100 / 720 1199.2 / 1199.2 PANTOprazole 40 mg In Dextrose 100 / 100 198 / 198 5% 100 ml @ 8 MG/HR 20 mls/hr IV Q5H [facility] Rx#:[id number] Thiamine HCl 100 mg Folic Acid 1001.2 / 1001.2 1 mg In Sodium Chloride 0.9% 1000ML 1,000 ml @ 500 mls/hr IV .Q2H1M [facility] Rx#:[id number] Intake (Blood Product) Amt 620 / 620 Packed Cells, Leukoreduced 310 / 310 Unit [id number] Packed Cells, Leukoreduced 310 / 310 Unit [id number] Output: Urine 1720 / 1720 Other: Other Intake Source NPO # Unmeasured Voids 1 Weight 69.5 kg 69.5 kg Weight Measurement Method Standing Scale Patient Weight 03/07/23 06:59 Weight 69.5 kg
[2023-03-06 17:46] LABS: Hematocrit (blood only) 26.4 % (42.0-52.0); Hemoglobin 8.9 g/dl (14.0-18.0)
[2023-03-06 22:59] LABS: Hematocrit (blood only) 25.7 % (42.0-52.0); Hemoglobin 8.5 g/dl (14.0-18.0)
[2023-03-07] MEDS: PANTOprazole 40 MG in DEXTROSE 5% 100 ML IV SCH ×2 (03:51→08:52)
[2023-03-07] MEDS: GABAPENTIN 600 MG TAB PO SCH (03:55)
[2023-03-07 06:34] LABS: BUN Creatinine Ratio 7.8 (10-20); Calcium 8.5 mg/dl (8.6-10.3); Creatinine Clr Calc Pharmacy 102.8 ml/min; Est GFR (African American) 115.9 ml/min; Magnesium 1.9 mg/dl (1.7-2.4); Phosphorus 3.6 mg/dl (2.5-4.9)
--- NOTE | 2023-03-07 08:38 | Electrocardiogram Report ---
Test Reason : Blood Pressure : / mmHG Vent. Rate : 066 BPM Atrial Rate : 066 BPM P-R Int : 146 ms QRS Dur : 082 ms QT Int : 406 ms P-R-T Axes : 019 036 043 degrees QTc Int : 425 ms Normal sinus rhythm Normal ECG When compared with ECG of 06-MAR-2023 05:02, No significant change was found Confirmed by Roberto Wisdom ([id number]) on 03/07/2023 8:38:18 AM Referred By: REFERRED SELF Confirmed By:Roberto Wisdom
[2023-03-07] MEDS: FOLIC ACID 1 MG in SYRINGE 9.8 ML IV SCH (08:41)
[2023-03-07] MEDS: THIAMINE HCL 100 MG in SYRINGE 9 ML IV SCH (08:41)
--- NOTE | 2023-03-07 09:29 | Gastroenterology Progress Note ---
Supervising physician's note Case discussed with Nathalia Meadows NP, patient discharged before I could see him Had discussed with patient outpatient workup and still plan to do that I have spent 10 minutes in discussion and entering medical records into EMR Iggy Acuna Jr, MD, [facility] [place] Date of Service March 07, 2023 Assessment & Plan (1) Symptomatic anemia: Plan: Anemia: History of iron deficiency anemia. Chronic process likely influenced by regular alcohol use. He has been evaluated by cardiology who does not feel that symptoms are related to ACS. Patient would prefer outpatient colonoscopy and EGD. We will arrange follow-up with our office. Advance diet to regular. Case reviewed with Dr. Acuna. Please refer to supervising physician addendum for further recommendations. I have spent 20 minutes of discrete time performing the activities of this visit which include but are not limited to review of the medical record, obtaining a history, physical exam, and entering information in the electronic record. Admission and Anticipated Discharge Date Admission Date: March 05, 2023 Subjective Patient is a 57-year-old male with anemia and alcohol dependency. He is frustrated as he has not had any regular food and requested change to diet p.o. he is leaving by noon. Denies abdominal pain, nausea, vomiting, bowel movement. He is passing flatus. Review of Systems Review of Systems: All systems reviewed & are unremarkable except as noted in Subjective Physical Exam Gastrointestinal (Abdomen): normal bowel sounds, soft, nontender, no hepatosplenomegaly Results & Data Vital Signs (Past 12 Hours) Vital Signs Temp Pulse Pulse Resp BP Pulse Ox O2 Del Method 03/07/23 07:54 36.6 C 71 20 112/74 98 Room Air 03/07/23 03:00 36.5 C 61 18 120/76 98 Room Air 03/06/23 22:02 63 03/06/23 23:00 36.6 C 59 L 18 117/76 97 Room Air Laboratory Results Laboratory Results - last 24 hr 03/06/23 03/06/23 03/06/23 11:15 11:15 17:07 Hgb 9.1 L 8.9 L Hct 26.9 L 26.4 L Sodium Potassium Chloride Carbon Dioxide Anion Gap BUN Creatinine Est Cr Clr Drug Dosing Est GFR ( Amer) Est GFR (Non-Af Amer) BUN/Creatinine Ratio Glucose Calcium Phosphorus Magnesium Troponin I High Sens < 2.3 03/06/23 03/07/23 22:48 05:38 Hgb 8.5 L Hct 25.7 L Sodium 137 Potassium 4.0 Chloride 108 H Carbon Dioxide 23 Anion Gap 6 BUN 6 Creatinine 0.77 Est Cr Clr Drug Dosing 102.8 Est GFR ( Amer) 115.9 Est GFR (Non-Af Amer) 100.0 BUN/Creatinine Ratio 7.8 L Glucose 105 H Calcium 8.5 L Phosphorus 3.6 Magnesium 1.9 Troponin I High Sens
--- NOTE | 2023-03-07 10:24 | Discharge Summary ---
Date of Service March 07, 2023 Admission HPI Per Admitting Provider 57-year-old male with history of trigeminal neuralgia, ongoing alcoholism drinks 6 beers per day, says he smokes weeds once in a while presents with chest pain with exertion going on for 1 week and also shortness of breath on exertion and weakness. Couple of weeks ago he had a black stool but he attributes it to Pepto-Bismol. Denies any blood in the stool. No hematuria. No abdominal pain. No nausea vomiting. Once in a while he feels food stuck in his esophagus. Denies any headache or dizziness. No earache or runny nose or sore throat. No cough. No fevers. Currently resting comfortably and hemodynamically stable. Past medical history as mentioned above Past surgical history suboccipital craniectomy left side in 2018. Spinal fluid tap for drainage in 2018 Social history says drinks 6 beers every day. Smokes weed once in a while. Denies any smoking. Family history father had stroke Admission Exam Per Admitting Provider General- Not in distress Head- atraumatic Eyes- PERRL ENT- oropharynx clear Neck- supple, no JVD, Lungs- clear to auscultation and percussion Heart- regular rhythm; no murmur, no gallop, no rub appreciated Abdomen- normal bowel sounds, soft, nontender, no masses no distension Extremities- no pretibial edema, no erythema seen Neuro- alert, oriented x 3; PERRL, no facial palsy; no dysarthria Non focal. Skin- warm & dry Principal Diagnosis Symptomatic anemia Discharge Exam General- WD/WN M in NAD Head- atraumatic Eyes- PERRL ENT- oropharynx clear Neck- supple, no JVD Lungs- clear to auscultation and percussion Heart- regular rhythm; no murmur, no gallop, no rub appreciated Abdomen- normal bowel sounds, soft, nontender, no masses no distension Extremities- no pretibial edema, no erythema seen Neuro- alert, oriented x 3; PERRL, no facial palsy; no dysarthria, moves extremities Skin- warm & dry Discharge Data Allergies Allergy/AdvReac Type Severity Reaction Status Date / Time carbamazepine [From Tegretol] Allergy Rash Unverified 04/11/21 10:51 Consultations 03/05/23 21:43 ED Decision to Admit Stat 03/06/23 08:00 Consult Cardiology Routine Consult Gastroenterology Routine Ordered Studies 03/05/23 19:50 CT abd pelvis IV con only Stat FINDINGS: Lung bases: Unremarkable. No mass. No consolidation. Mediastinum: Small hiatal hernia. ABDOMEN: Liver: Unremarkable. No mass. Gallbladder and bile ducts: Unremarkable. No calcified stones. No ductal dilation. Pancreas: Unremarkable. No mass. No ductal dilation. Spleen: Unremarkable. No splenomegaly. Adrenals: Unremarkable. No mass. Kidneys and ureters: Unremarkable. No solid mass. No hydronephrosis. Stomach and bowel: Diverticulosis, without acute diverticulitis. No small bowel obstruction. No free intraperitoneal air. PELVIS: Appendix: Normal appendix. Bladder: Unremarkable. No mass. Reproductive: Unremarkable as visualized. ABDOMEN and PELVIS: Intraperitoneal space: Unremarkable. No free air. No significant fluid collection. Bones/joints: Degenerative changes of the spine. No acute fracture. No dislocation. Soft tissues: Unremarkable. Vasculature: Atherosclerotic changes of the aorta. No abdominal aortic aneurysm. Lymph nodes: Unremarkable. No enlarged lymph nodes. IMPRESSION: 1. Normal appendix. 2. Small hiatal hernia. 3. Diverticulosis, without acute diverticulitis. No small bowel obstruction. No free intraperitoneal air. Hospital Course (1) Symptomatic anemia: 57-year-old male presents with symptomatic anemia. Symptomatic anemia Possible from alcoholism Denies any [id number] ibuprofen or Aleve. Rarely takes ibuprofen Has dyspnea on exertion Has chest pain on exertion EKG and troponins are negative serial enzymes followed and echo obtained, cardiology consulted Echo -there is mild concentric LVH. LV systolic function is normal. LVEF 55 to 60%. LV wall motion is normal. Grade 1 diastolic dysfunction. There is trace tricuspid regurg. Per cardiology - symptoms secondary to anemia and ok to proceed w/ endoscopy Stool for Hemoccult Received 2 units of PRBC -> will discharge on oral iron supplement Follow H&H -> Hgb improved, current Hgb 8.5 On PPI drip -> will discharge on pantoprazole 40 mg bid GI consulted - plan for endoscopy either as outpt 03/06 patient feels overall improved after blood transfusion. Denies any more chest pain. Continues to have epigastric discomfort. Denies any blood in the stool. As above, patient was seen by cardiology and by GI. Okay to proceed with endoscopy. 03/07 Discussed w/ [facility] - plan for outpt endoscopy Alcoholism Drinks 6 beers a day Banana bag IV thiamine and IV folic acid daily Alcohol withdrawal protocol with gabapentin and IV Ativan as needed Close monitor CT abdomen/pelvis - ABDOMEN and PELVIS: Intraperitoneal space: Unremarkable. No free air. No significant fluid collection. Bones/joints: Degenerative changes of the spine. No acute fracture. No dislocation. Soft tissues: Unremarkable. Vasculature: Atherosclerotic changes of the aorta. No abdominal aortic aneurysm. Lymph nodes: Unremarkable. No enlarged lymph nodes. IMPRESSION: 1. Normal appendix. 2. Small hiatal hernia. 3. Diverticulosis, without acute diverticulitis. No small bowel obstruction. No free intraperitoneal air. Disposition : plan to DC home - pt to establish care w/ new PCP on 03/10/2023. (2) Alcoholism: Total Time Total Time Spent Total Time Spent (In Minutes): 40 Discharge Plan Discharge Items Patient Disposition: Home - Self-Care Reason For Visit: CONNORS, ANEMIA, ALCOHOLISM Discharge Diagnosis: Symptomatic anemia Activity: Per Instructions section Non-emergency contact: Primary Care Provider and Reading Intervention Teacher Call non-emergency contact if: you have any medication questions and your symptoms worsen Follow-up/Referrals: Fatoumata Rasheed PA-C [Outside Practitioners] - (Date & Time 03/10/2023 8:40 AM Provider Fatoumata Rasheed PA-C Department Family Medicine [facility] ) Diet: Regular Diet Comment: avoid acidic, spicy foods, also avoid caffeine and alcohol Addtl Attending Provider Instructions: Follow up with primary care doctor, the appointment was scheduled for you for 03/10/2023. Take pantoprazole 40 mg twice a day. In addition, recommend to continue taking supplements - thiamine , folic acid and iron supplement. Avoid acidic, spicy foods, also avoid caffeine and alcohol. You will need to follow up on your anemia with your new primary care doctor. Also, it is recommended that you follow up with gastroenterology and have endoscopies done. Pending Studies at Discharge: No Stand-Alone Forms: My [employer], Smoking Cessation Medications and DC Order Prescriptions: New pantoprazole 40 mg tablet,delayed release (DR/EC) 40 mg PO BID Qty: 60 0RF thiamine HCl (vitamin B1) 100 mg tablet 100 mg PO DAILY Qty: 30 0RF folic acid 1 mg tablet 1,000 mcg PO DAILY Qty: 30 0RF ferrous sulfate [Iron (ferrous sulfate)] 325 mg (65 mg iron) tablet 325 mg PO DAILY Qty: 30 0RF Discontinued ciprofloxacin HCl 500 mg tablet 500 mg PO Q12H Qty: 20 0RF Discharge Orders: Discharge Order (Routine); Ordered 03/07/23 Ordered By: Ronald Hernandez/Other Patient Handouts: Iron Supplements Admission Data Admit Date/Time: 03/05/23 23:33 Attending Provider: Ronald Dillon Admit Provider: Zain Zuleta Primary Care Provider: PCP,NO Other Providers: Zain Zuleta ; Scott Azevedo ; Rohith Velasco ; Jason Cid ; Mariela Yousif ; Dahlia Ballard ; Ely York ; Nathalia Meadows ; Horacio Renee ; Homar Blair ; Trista Lucero ; Pepper Blunt ; Michael Hannah ; Claire Robertson ; Carri Crowell ; Sandra Alonso ; Christen Rao ; Georgi Long ; Markus Bunch ; Merrick Manuel ; Belgica Solorzano ; Iggy Acuna Jr
[2023-03-08] MEDS ORDERED: GABAPENTIN 600 MG TAB PO SCH
[2023-03-09] MEDS ORDERED: GABAPENTIN 600 MG TAB PO SCH (12:00)
== END 2023-03-07 11:08 | disposition home or self-care (01) | DRG 812 ==
LOC: ED 18:40 → 4W 23:33

== ENCOUNTER 2023-05-29 12:29 | Inpatient (IN) ==
[2023-05-29] MEDS ORDERED: SODIUM CHLORIDE 0.9% 500 ML IV STA (12:56)
[2023-05-29] MEDS ORDERED: MoRPHine SULFATE 4 MG/ML 1 ML CARP\\VIAL IV STA ×2 (13:02→14:09)
--- NOTE | 2023-05-29 13:05 | Emergency Department Note ---
Impression & Plan Vomiting, Esophageal cancer ED Provider Note Provider: Onofre Quach MD DATE OF SERVICE: 05/29/2023 CHIEF COMPLAINT: Vomiting, esophageal pain HISTORY OF PRESENT ILLNESS: Patient is a 58-year-old gentleman unfortunate history of esophageal cancer currently on chemotherapy with [facility] oncology presenting here today via ambulance from his home. Over the past week has been experiencing nausea vomiting and diarrhea. Feeling weak and not telling oral intake much at all. Very limited intake with only some Pedialyte a few grapes and maybe a bite of a sandwich yesterday. The oncology and referred here. Received 500 mils of normal saline and 4 mg IV Zofran prior to arrival with some improvement. States that he is spitting up some fluid but has not as much vomiting he is feeling improved there. Reports some diffuse pain of the esophagus not somewhat in the abdomen. Denies any falls. Feeling a little improved after hydration. Did not yet have his morning morphine. Did have esophageal stents placed at [place] recently and has some concern that these may have moved. Trace amount of blood in the vomiting a day or 2 ago but none recently. PAST MEDICAL HISTORY: As noted above MEDICATIONS: Reviewed medications SOCIAL HISTORY: , prior history of alcohol use but not recently PHYSICAL EXAM: GENERAL: alert and oriented on stretcher holding bag occasionally spitting appears uncomfortable, somewhat gaunt in appearance Head: normocephalic and atraumatic EYES: No injection, discharge or icterus. NECK: Trachea midline. ENT: Mucous membranes pink and moist. LUNGS: Airway patent. No retractions. Breath sounds clear HEART: Regular rate and rhythm. No chest wall tenderness with right upper chest port appreciated ABDOMEN: Soft and non-tender, without guarding or rebound. SKIN: Acyanotic, warm, dry EXTREMITIES: Without swelling, tenderness or deformity NEUROLOGICAL: No focal deficits. No aphasia. No facial droop or slurred speech. EK bpm normal sinus rhythm. No PVC or PAC. No acute ST segment elevation or depression with QTc of 447 with inferior T wave changes. CONTINUOUS CARDIAC MONITORING: was ordered and showed a heart rate of bpm in Patient's laboratory studies and imaging reviewed. Differential includes cancer related bleeding and esophageal obstruction, stent displacement, gastroenteritis, infections, appendicitis, diverticulitis, inflammatory bowel disease, obstruction, GI bleed, biliary pathology, as well as other pathologies. IMPRESSION/MEDICAL DECISION MAKING: Did have case management access epic [facility] records for review of prior admission in March and telemedicine GI visits on May 05 reviewed the p dave's history. Patient following with oncology locally and on chemotherapy for esophageal mass. Has had some transfusions for low hemoglobin. Does report some blood in the vomit 7 days ago but none now. We will send stool testing but seems less likely to be infectious C. difficile or vomiting. Low suspicion this is acutely cardiac or pulmonary related. Denies shortness of breath. Treated symptomatically with some IV fluids, Zofran, and morphine. Difficult situation with his cancer and treatment as well as the stents for oral intake. X-rays obtained to look for signs of obvious displacement of stents. Negative COVID testing today. Hemoglobin stable. Slight leukopenia with only a very mild neutropenia of 1.09. Again no fevers reported. No evidence of hepatitis or pancreatitis based on labs. Magnesium low at 1.5. Some slightly worsened hyponatremia of 129 today. No evidence of renal dysfunction. IV magnesium supplementation ordered. Review of the x-rays without evidence of obstructive findings of free air and again doubt this based on his abdominal exam. Stenting appears grossly in place on the imaging here. Given his difficulty with oral intake will recommend further care here at the hospital. Hospitalist contacted. Patient and in agreement the plan. DIAGNOSIS: Esophageal cancer, dehydration, hyponatremia, hypomagnesemia DISPOSITION: Hospitalist will evaluate Patient was agreeable with this plan. Past Med/Surg History Medical History (Updated 05/29/23 @ 13:17 by Onofre Quach M.D.) Diverticulitis Social History Smoking Status: Never smoker Second Hand Exposure: No; Do You Dip or Chew Tobacco: No; Hx Alcohol Use: Yes Alcohol type: beer Hx Substance Use: Yes Preferred Language: Lithuanian Communication Ability: Effective Driver License Examiner Required: No Beliefs That Will Affect Care: None Current Living Situation: Spouse Feels Safe at Home: Yes Assistive Devices: Glasses and Other Allergies Allergies Allergy/AdvReac Type Severity Reaction Status Date / Time carbamazepine [From Tegretol] Allergy Rash Verified 05/02/23 11:53 Home Meds Home Medications Medication Instructions Recorded Confirmed chlorpromazine 25 mg tablet 25 mg PO UD 10/12/23 10/12/23 ondansetron HCl 8 mg tablet 8 mg PO Q8 PRN Nausea 05/26/23 05/26/23 Previous Rx's Medication Instructions Recorded pantoprazole 40 mg tablet,delayed 40 mg PO BID #60 tabs 03/07/23 release thiamine HCl (vitamin B1) 100 mg 100 mg PO DAILY #30 tabs 03/07/23 tablet Results & Data (ED) Vital Signs Vital Signs - 24 hr 05/29/23 12:38 05/29/23 13:19 05/29/23 13:58 Temperature 36.6 C Temperature Source Oral Pulse Rate 78 Pulse Rate [Right Brachial] 74 Pulse Rhythm [Right Brachial] Regular Pulse Strength [Right Brachial] Normal Respiratory Rate 20 19 Respiratory Effort / Characteristics Non-Labored Spontaneous Non-Labored Spontaneous Respiratory Depth Normal Normal Respiratory Pattern Regular Regular Blood Pressure 122/71 Blood Pressure [Right Arm] 114/73 Blood Pressure Mean 88 Blood Pressure Mean [Right Arm] 86 Pulse Oximetry 100 100 100 Oxygen Delivery Method Room Air Room Air Room Air Sepsis Recent Fever Within 48 Hours No Sepsis New/Unexplained Change in Mental Status N/A Sepsis Action Taken by Nursing No Action Required Laboratory Data 05/29/23 12:50 05/29/23 12:50 Lab Results 05/29/23 05/29/23 05/29/23 Range/Units 12:20 12:50 12:50 WBC 3.67 L (4.8-10.8) K/ul RBC 3.91 L (4.70-6.10) M/uL Hgb 9.9 L (14.0-18.0) g/dl Hct 30.0 L (42.0-52.0) % MCV 76.7 L (80.0-100.0) fL MCH 25.3 (25.0-34.0) pg MCHC 33.0 (32.0-36.0) g/dL RDW Std Deviation 54.0 H (36.4-46.3) fL RDW Coeff of Stone 19.6 H (11.5-14.5) % Plt Count 238 (130-400) K/uL MPV 10.4 (9.4-12.4) fL Immature Gran % (Auto) 0.8 % Neut % (Auto) 29.7 % Lymph % (Auto) 17.2 % [place] % (Auto) 51.5 % Eos % (Auto) 0.3 % Baso % (Auto) 0.5 % Neut # (Auto) 1.09 L (1.40-6.50) K/uL Lymph # (Auto) 0.63 L (1.20-3.40) K/uL [place] # (Auto) 1.89 H (0.11-0.59) K/uL Eos # (Auto) 0.01 (0.00-0.50) K/uL Baso # (Auto) 0.02 (0.00-0.20) K/uL Immature Gran # (Auto) 0.03 (0.01-0.20) K/uL Absolute Nucleated RBC 0.04 (0.00-0.12) K/uL Nucleated RBC % (auto) 1.1 % Toxic Granulation 2+ Dohle Bodies 1+ Polychromasia 1+ Ovalocytes 1+ Echinocytes 2+ Acanthocytes (Spur) 1+ PT 14.6 H (9.0-12.0) Seconds INR 1.4 H (0.9-1.1) Sodium (136-145) mmol/L Potassium (3.5-5.1) mmol/L Chloride (98-107) mmol/L Carbon Dioxide (21-32) mmol/L Anion Gap (3-11) BUN (6-23) mg/dl Creatinine (0.6-1.4) mg/dl Est Cr Clr Drug Dosing ml/min Est GFR ( Amer) ml/min Est GFR (Non-Af Amer) ml/min BUN/Creatinine Ratio (10-20) Glucose (70-99(Fasting)) mg/dl Calcium (8.6-10.3) mg/dl Magnesium (1.7-2.4) mg/dl Total Bilirubin (0.2-1.0) mg/dl AST (13-39) U/L ALT (7-52) U/L Alkaline Phosphatase (34-104) U/L Troponin I High Sens (0-20) pg/ml Total Protein (6.0-8.3) gm/dl Albumin (3.4-5.0) gm/dl Globulin (2.5-4.0) gm/dl Albumin/Globulin Ratio (0.9-2) Lipase (11-82) U/L SARS-CoV-2, RNA, NAAT NEGATIVE (NEGATIVE) 05/29/23 Range/Units 12:50 WBC (4.8-10.8) K/ul RBC (4.70-6.10) M/uL Hgb (14.0-18.0) g/dl Hct (42.0-52.0) % MCV (80.0-100.0) fL MCH (25.0-34.0) pg MCHC (32.0-36.0) g/dL RDW Std Deviation (36.4-46.3) fL RDW Coeff of Stone (11.5-14.5) % Plt Count (130-400) K/uL MPV (9.4-12.4) fL Immature Gran % (Auto) % Neut % (Auto) % Lymph % (Auto) % [place] % (Auto) % Eos % (Auto) % Baso % (Auto) % Neut # (Auto) (1.40-6.50) K/uL Lymph # (Auto) (1.20-3.40) K/uL [place] # (Auto) (0.11-0.59) K/uL Eos # (Auto) (0.00-0.50) K/uL Baso # (Auto) (0.00-0.20) K/uL Immature Gran # (Auto) (0.01-0.20) K/uL Absolute Nucleated RBC (0.00-0.12) K/uL Nucleated RBC % (auto) % Toxic Granulation Dohle Bodies Polychromasia Ovalocytes Echinocytes Acanthocytes (Spur) PT (9.0-12.0) Seconds INR (0.9-1.1) Sodium 129 L (136-145) mmol/L Potassium 3.5 (3.5-5.1) mmol/L Chloride 96 L (98-107) mmol/L Carbon Dioxide 21 (21-32) mmol/L Anion Gap 12 H (3-11) BUN 9 (6-23) mg/dl Creatinine 0.71 (0.6-1.4) mg/dl Est Cr Clr Drug Dosing 90.3 ml/min Est GFR ( Amer) 119.0 ml/min Est GFR (Non-Af Amer) 102.7 ml/min BUN/Creatinine Ratio 12.7 (10-20) Glucose 95 (70-99(Fasting)) mg/dl Calcium 8.1 L (8.6-10.3) mg/dl Magnesium 1.5 L (1.7-2.4) mg/dl Total Bilirubin 0.9 (0.2-1.0) mg/dl AST 15 (13-39) U/L ALT 17 (7-52) U/L Alkaline Phosphatase 72 (34-104) U/L Troponin I High Sens 5.1 (0-20) pg/ml Total Protein 5.6 L (6.0-8.3) gm/dl Albumin 3.1 L (3.4-5.0) gm/dl Globulin 2.5 (2.5-4.0) gm/dl Albumin/Globulin Ratio 1.2 (0.9-2) Lipase 6 L (11-82) U/L SARS-CoV-2, RNA, NAAT (NEGATIVE) Administered Medications Magnesium Sulfate/Dextrose (Magnesium Sulfate / D5w) 1 gm in 100 mls @ 200 mls/hr IV Q30M GREG Stop: 05/29/23 14:44 Last Admin: 05/29/23 13:55 Dose: 200 mls/hr Documented By: ANGELA Discontinued Medications Sodium Chloride (Nss) 500 mls @ 999 mls/hr IV .Q31M STA Stop: 05/29/23 13:26 Last Infusion: 05/29/23 13:54 Dose: 0 mls/hr Documented By: Admin: 05/29/23 13:16 Dose: 999 mls/hr Documented By: ANGELA Morphine Sulfate (Morphine Sulfate 4 Mg/Ml 1 Ml Carp\Vial) 4 mg IV NOW STA Stop: 05/29/23 13:03 Last Admin: 05/29/23 13:15 Dose: 4 mg Documented By: ANGELA Morphine Sulfate (Morphine Sulfate 4 Mg/Ml 1 Ml Carp\Vial) 4 mg IV NOW STA Stop: 05/29/23 14:10 Last Admin: 05/29/23 14:17 Dose: 4 mg Documented By: ANGELA Discharge Plan Visit Data Chief Complaint: Vomiting Stated Complaint: NAUSEA, VOMITING, DIARRHEA ED Provider: Onofre Quach Discharge Problem: Vomiting, Esophageal cancer Patient Disposition: Being Evaluated by Hospitalist Forms Stand Alone Forms: [facility] Prescriptions Prescriptions: No Action ondansetron HCl 8 mg tablet 8 mg PO Q8 PRN (Reason: Nausea) chlorpromazine 25 mg tablet 25 mg PO UD pantoprazole 40 mg tablet,delayed release (DR/EC) 40 mg PO BID Qty: 60 0RF thiamine HCl (vitamin B1) 100 mg tablet 100 mg PO DAILY Qty: 30 0RF Referrals Referrals: Fatoumata Rasheed PA-C [Primary Care Provider] - Vomiting Qualifiers: Vomiting type: unspecified Esophageal cancer Qualifiers: Malignant neoplasm of esophagus location: lower third Qualified Code(s): C15.5 - Malignant neoplasm of lower third of esophagus
[2023-05-29 13:32] LABS: Albumin Globulin Ratio 1.2 (0.9-2); Albumin Level 3.1 gm/dl (3.4-5.0); BUN Creatinine Ratio 12.7 (10-20); Bilirubin,Total 0.9 mg/dl (0.2-1.0); Calcium 8.1 mg/dl (8.6-10.3); Creatinine Clr Calc Pharmacy 90.3 ml/min; Est GFR (Non-African American) 102.7 ml/min; Globulin 2.5 gm/dl (2.5-4.0); Magnesium 1.5 mg/dl (1.7-2.4); Potassium 3.5 mmol/L (3.5-5.1); Total Protein 5.6 gm/dl (6.0-8.3)
[2023-05-29 13:39] LABS: Troponin I High Sensitivity 5.1 pg/ml (0-20)
[2023-05-29] MEDS: MAGNESIUM SULFATE / D5W 1 GM/100 ML BAG IV SCH ×2 (13:55→15:17)
[2023-05-29 14:00] LABS: INR 1.4 (0.9-1.1); Prothrombin Time 14.6 Seconds (9.0-12.0)
[2023-05-29 14:28] LABS: Acanthocytes 1+; Basophils # (auto) 0.02 K/uL (0.00-0.20); Basophils % (auto) 0.5 %; Dohle Bodies 1+; Echinocytes 2+; Eosinophils # (auto) 0.01 K/uL (0.00-0.50); Eosinophils % (auto) 0.3 %; Hemoglobin 9.9 g/dl (14.0-18.0); Immature Granulocytes # (auto) 0.03 K/uL (0.01-0.20); Immature Granulocytes % (auto) 0.8 %; Lymphocytes # (auto) 0.63 K/uL (1.20-3.40); Lymphocytes % (auto) 17.2 %; Mean Corpuscular Hemoglobin 25.3 pg (25.0-34.0); Mean Corpuscular Volume 76.7 fL (80.0-100.0); Mean Platelet Volume 10.4 fL (9.4-12.4); Monocytes # (auto) 1.89 K/uL (0.11-0.59); Monocytes % (auto) 51.5 %; Neutrophils # (auto) 1.09 K/uL (1.40-6.50); Neutrophils % (auto) 29.7 %; Nucleated RBC # (auto) 0.04 K/uL (0.00-0.12); Nucleated RBC % (auto) 1.1 %; Ovalocytes 1+; Platelet Count 238 K/uL (130-400); Polychromasia 1+; RDW Coefficient of Variation 19.6 % (11.5-14.5); Red Blood Count 3.91 M/uL (4.70-6.10); Toxic Granulation 2+; White Blood Count 3.67 K/ul (4.8-10.8)
--- NOTE | 2023-05-29 15:01 | XRay Report ---
XR chest 1V portable CLINICAL HISTORY: vomiting TECHNIQUE: Single frontal radiograph of the chest was obtained. Comparison: Comparison is made to chest radiograph 03/05/2023 FINDINGS: Interval placement of right portacatheter and a stent, likely esophageal. The cardiomediastinal silho uette is normal. The lungs are clear. No evidence of pleural effusion or pneumothorax. IMPRESSION: No acute chest disease. ACT 112: Negative or not required by law. Electronically signed by: Zeb Whitman M.D. 05/29/2023 3:00 PM
--- NOTE | 2023-05-29 15:09 | XRay Report ---
XR KUB/Abdomen 1 view CLINICAL HISTORY: vomiting TECHNIQUE: 1 view of the abdomen was obtained. Comparison: None available at the time of this dictation. FINDINGS: Lung bases are unremarkable. Degenerative changes are seen in the visualized skeleton. The bowel gas pattern is nonobstructive. A moderate amount of stool is noted within the large bowel. IMPRESSION: Nonobstructive bowel gas pattern. ACT 112: Negative or not required by law. Electronically signed by: Zeb Whitman M.D. 05/29/2023 3:07 PM
[2023-05-29] MEDS ORDERED: MAGNESIUM SULFATE / D5W 1 GM/100 ML BAG IV ONE (15:42)
--- NOTE | 2023-05-29 16:01 | History & Physical Report ---
Date of Service May 29, 2023 Assessment & Plan (1) Acute dehydration: (2) Vomiting and diarrhea: (3) Esophageal cancer: Plan: Admit to [facility] Patient presenting from home with reports of poor p.o. intake, vomiting, diarrhea since chemotherapy treatment on 05/19. History of esophageal cancer s/p esophageal stenting. Labs show mild neutropenia and anemia, WBC 3.6K, Hgb 9.9 Does not appear infectious Continue supportive care with IVF, antiemetics Stool studies ordered Clear liquid diet for now Esophageal stent appears to be in position on CXR, consider CT with ongoing symptoms or pain (4) Hypomagnesemia: (5) Hyponatremia: Plan: Na+ 129, Mg +1.5 IVF, electrolyte replacement Follow labs DVT PROPHYLAXIS SQ Lovenox Patient seen in collaboration with Dr. Rodriguez. I spent a total of 75 minutes coordinating, documenting, and providing care for this patient excluding time spent in the performance of separately billed services. This included personally reviewing all current laboratories and imaging studies, medication reconciliation, outpatient chart review, and discussion with specialists. History of Present Illness Chief Complaint: Nausea Primary Care Provider: Fatoumata Rasheed PA-C 58-year-old male with PMH trigeminal neuralgia, esophageal cancer s/p esophageal stenting and current chemotherapy, and other problems listed below who presents to the ED for evaluation of nausea and dehydration. History obtained from the patient and review of outpatient oncology records. Patient diagnosed with esophageal mass in March, underwent esophageal stenting. Currently on FLOT therapy, last treatment on 05/19. Patient reports that since last chemotherapy treatment, he has had very poor appetite. He also reports associated nausea and vomiting/regurgitating. Denies hematemesis or coffee-ground emesis. Reports pain at esophageal stent location. Has been having diarrhea, denies bright red bleeding per rectum and dark tarry stools. No fevers or chills. Denies chest pain and shortness of breath. No lightheadedness, dizziness, diaphoresis, syncopal events. Denies urinary symptoms. In the ED, labs show WBC 3.6K, Hgb 9.9, Na+ 129, Mg +1.5. Patient was given IVF, IV morphine, magnesium replacement. Allergies Allergy/AdvReac Type Severity Reaction Status Date / Time carbamazepine [From Tegretol] Allergy Rash Verified 05/29/23 15:35 Home Medications Medication Instructions Recorded Confirmed Type pantoprazole 40 mg tablet,delayed 40 mg PO BID #60 tabs 03/07/23 05/29/23 Rx release chlorpromazine 25 mg tablet 25 mg PO Q6 PRN .nausea or hiccups 05/26/23 05/29/23 History ondansetron HCl 8 mg tablet 8 mg PO Q8 PRN Nausea 05/26/23 05/29/23 History cyanocobalamin (vitamin B-12) 1,000 mcg PO DAILY 05/29/23 05/29/23 History 1,000 mcg tablet (Vitamin B-12) dexamethasone 4 mg tablet 8 mg PO DIRECTED 05/29/23 05/29/23 History lidocaine-prilocaine 2.5 %-2.5 % 1 applic topical DIRECTED 05/29/23 05/29/23 History topical cream lorazepam 0.5 mg tablet 0.5 mg PO Q6 PRN .Anxiety/sleep 05/29/23 05/29/23 History morphine concentrate 100 mg/5 mL 5 mg PO Q4 PRN Pain 05/29/23 05/29/23 History (20 mg/mL) oral solution prochlorperazine maleate 10 mg 10 mg PO Q6 PRN Nausea 05/29/23 05/29/23 History tablet Past Med/Surg History Medical History Esophageal cancer Iron deficiency Trigeminal neuralgia Surgical History No pertinent past surgical history Social History Smoking Status: Never smoker Second Hand Exposure: No; Do You Dip or Chew Tobacco: No; Hx Alcohol Use: Yes Alcohol type: beer Hx Substance Use: Yes Preferred Language: Slovak Communication Ability: Effective Hog Dropper Required: No Beliefs That Will Affect Care: None Current Living Situation: Spouse Feels Safe at Home: Yes Assistive Devices: Glasses and Other Physical Exam Constitutional: + ill appearing and + thin; no acute distress Eyes: PERRL, conjunctivae normal, anicteric sclerae ENMT: external ear and nose normal, oropharynx normal Respiratory: normal respiratory effort, lungs clear to auscultation Cardiovascular: Rate/Rhythm: regular rate and regular rhythm Vessels: normal peripheral pulses Extremities: no edema Gastrointestinal (Abdomen): normal bowel sounds, soft, nontender, no hepatosplenomegaly Musculoskeletal: no cyanosis or clubbing, extremities motor strength 5/5 Skin: no rashes, warm and dry Neurologic: PERRL, EOMI, accommodation nl, no face palsy, no dysarthria Psychiatric: A+Ox3, euthymic affect Results & Data Results & Data Vital Signs (Past 12 Hours) Vital Signs Temp Pulse Pulse Resp BP BP Pulse Ox 05/29/23 13:58 74 19 114/73 100 05/29/23 13:19 100 05/29/23 12:38 36.6 C 78 20 122/71 100 O2 Del Method 05/29/23 13:58 Room Air 05/29/23 13:19 Room Air 05/29/23 12:38 Room Air Laboratory Results Short CBC 05/29/23 Range/Units 12:50 WBC 3.67 L (4.8-10.8) K/ul Hgb 9.9 L (14.0-18.0) g/dl Hct 30.0 L (42.0-52.0) % Plt Count 238 (130-400) K/uL BMP 05/29/23 12:50 Sodium 129 L Potassium 3.5 Chloride 96 L Carbon Dioxide 21 BUN 9 Creatinine 0.71 Glucose 95 Calcium 8.1 L Liver Function 05/29/23 Range/Units 12:50 Total Bilirubin 0.9 (0.2-1.0) mg/dl AST 15 (13-39) U/L ALT 17 (7-52) U/L Alkaline Phosphatase 72 (34-104) U/L Albumin 3.1 L (3.4-5.0) gm/dl Diagnostic Findings Chest X-Ray 05/29/23 12:56 XR chest 1V portable CLINICAL HISTORY: vomiting TECHNIQUE: Single frontal radiograph of the chest was obtained. Comparison: Comparison is made to chest radiograph 03/05/2023 FINDINGS: Interval placement of right portacatheter and a stent, likely esophageal. The cardiomediastinal silhouette is normal. The lungs are clear. No evidence of pleural effusion or pneumothorax. IMPRESSION: No acute chest disease. ACT 112: Negative or not required by law. Electronically signed by: Zeb Whitman M.D. 05/29/2023 3:00 PM KUB X-Ray 05/29/23 12:56 XR KUB/Abdomen 1 view CLINICAL HISTORY: vomiting TECHNIQUE: 1 view of the abdomen was obtained. Comparison: None available at the time of this dictation. FINDINGS: Lung bases are unremarkable. Degenerative changes are seen in the visualized skeleton. The bowel gas pattern is nonobstructive. A moderate amount of stool is noted within the large bowel. IMPRESSION: Nonobstructive bowel gas pattern. ACT 112: Negative or not required by law. Electronically signed by: Zeb Whitman M.D. 05/29/2023 3:07 PM Code Status & VTE Plan VTE Prophylaxis Plan VTE Prophylaxis will be ordered: Yes Supervising Physician Co-Signing Physician Notes I have seen and discussed the case with the collaborating BLEACH MIXER I agree with the above H&P. I have reviewed and confirmed the patients medical history, the findings on physical examination, and the patients diagnosis and treatment plan with Love BLEACH MIXER and agree with the information documented.In short, Mr. Yoder is a 58 year old gentleman with chronic microcytic anemia, severe protein calorie malnutiriton, esophageal and gastric cancer undergoing treatment with Dr. Kuhn Patient was diagnosed with invasive esophageal adenocarcinoma in 03/2023 with subsequent esophageal stent placement on 04/01/2023. Chemotherapy started on 04/21 with last treatment was on 05/19 with 5-FU, taxotere, oxaliplatin. Last visit with GI on 05/05/2023. Patient remarks that diarrhea has settled after his last chemo regimen and that his vomiting is because he often fails to wait long enough after meals/drinking before laying down--given the stents, he has uncontrolled reflux. Vital signs stable on admission. Labs with mild neutropenia (ANC [id number]), hyponatremia to 129, hypochloremia c/w diarrhea/vomiting, mag 1.5. PE benign, patient drinking and tolerating liquid. Plan anemia stable, s/p recent venoer x4 doses in 04/2023; leukopenia with mild neutropenia, likely uptrending s/p chemo, trend CBC. Hypovolemic Hyponatremia, likely related to diarrhea/vomiting and poor po intake, assess s/p IVF resuscitation. Infectious workup pending, but given presentation holding abx; however, low threshold to start. Rest of plan as above. (3) Esophageal cancer Malignant neoplasm of esophagus location: lower third Qualified Code(s): C 15.5 - Malignant neoplasm of lower third of esophagus
[2023-05-29] MEDS ORDERED: ACETAMINOPHEN 325 MG TAB PO PRN (16:47)
[2023-05-29] MEDS: ENOXAPARIN INJ 40 MG/0.4 ML SYR SQ SCH (17:23)
[2023-05-29] MEDS: D5NSS + 20MEQ KCL 20 MEQ/1,000 ML BAG IV SCH (17:24)
[2023-05-29] MEDS: ONDANSETRON INJ 2 MG/ML 2 ML VIAL IV PRN (19:13)
[2023-05-29] MEDS: MoRPHine SULFATE 4 MG/ML 1 ML CARP\\VIAL IV PRN ×2 (19:13→23:35)
[2023-05-29] MEDS: PANTOprazole 40 MG TAB PO SCH (20:56)
[2023-05-30] MEDS: D5NSS + 20MEQ KCL 20 MEQ/1,000 ML BAG IV SCH ×3 (03:15→23:11)
[2023-05-30] MEDS: MoRPHine SULFATE 4 MG/ML 1 ML CARP\\VIAL IV PRN ×4 (03:54→19:12)
[2023-05-30 04:15] LABS: Adenovirus F 40/41 PCR Not Detected (NotDetected); Astrovirus PCR Not Detected (NotDetected); Campylobacter PCR Not Detected (NotDetected); Cryptosporidium PCR Not Detected (NotDetected); Cyclospora cayetanensis PCR Not Detected (NotDetected); Entamoeba histolytica PCR Not Detected (NotDetected); Enteroaggregative E.coli(EAEC) Not Detected (NotDetected); Enterotoxigenic E.coli (ETEC) Not Detected (NotDetected); Giardia lamblia PCR Not Detected (NotDetected); Norovirus GI/GII PCR Not Detected (NotDetected); Plesiomonas shigelloides PCR Not Detected (NotDetected); Rotavirus A PCR Not Detected (NotDetected); Salmonella PCR Not Detected (NotDetected); Sapovirus PCR Not Detected (NotDetected); Shiga-like Toxin E.coli (STEC) Not Detected (NotDetected); Shigella/Enteroinvasive E.coli Not Detected (NotDetected); Vibrio cholerae PCR Not Detected (NotDetected); Vibrio species PCR Not Detected (NotDetected); Yersinia enterocolitica PCR Not Detected (NotDetected)
[2023-05-30 04:46] LABS: Enteropathogenic E.coli (EPEC) DETECTED (NotDetected)
[2023-05-30 06:25] LABS: Hematocrit (blood only) 26.8 % (42.0-52.0); Hemoglobin 8.9 g/dl (14.0-18.0); Mean Corpuscular Hemoglobin 25.1 pg (25.0-34.0); Mean Corpuscular Hgb Conc 33.2 g/dL (32.0-36.0); Mean Corpuscular Volume 75.5 fL (80.0-100.0); Nucleated RBC # (auto) 0.02 K/uL (0.00-0.12); Nucleated RBC % (auto) 0.4 %; Platelet Count 255 K/uL (130-400); RDW Coefficient of Variation 19.9 % (11.5-14.5); RDW Standard Deviation 54.3 fL (36.4-46.3); Red Blood Count 3.55 M/uL (4.70-6.10); White Blood Count 4.48 K/ul (4.8-10.8)
[2023-05-30 06:47] LABS: BUN Creatinine Ratio 9.1 (10-20); Calcium 7.9 mg/dl (8.6-10.3); Creatinine Clr Calc Pharmacy 98.7 ml/min; Est GFR (African American) 122.7 ml/min; Est GFR (Non-African American) 105.8 ml/min; Potassium 3.5 mmol/L (3.5-5.1)
[2023-05-30] MEDS: ONDANSETRON INJ 2 MG/ML 2 ML VIAL IV PRN (07:36)
[2023-05-30 07:55] LABS: Appearance Urine Cloudy (Clear); Bacteria Urine Automated Negative (Negative); Blood Urine Negative (Negative); Color Urine Dark Yellow; Glucose Urine UA Negative (Negative); Ketones Urine Negative (Negative); Leukocyte Esterase Urine Trace (Negative); Nitrite Urine Negative (Negative); Protein Urine 1+ (Negative); RBC Urine Automated 0-4 /hpf (0-4); Specific Gravity Urine 1.021 (1.000-1.030); Urobilinogen Urine Negative (Negative)
[2023-05-30 07:58] LABS: Bilirubin Urine 1+ (Negative)
--- NOTE | 2023-05-30 09:05 | Hospitalist Progress Note ---
Date of Service May 30, 2023 Assessment & Plan (1) Enteropathogenic Escherichia coli infection: Plan: Typically doesn't require antibiotics, however, will add 3 days azithro given he is hospitalized, immunosuppressed and with electrolyte abnormalities. (2) Acute dehydration: Plan: improving, cont current care. (3) Vomiting and diarrhea: Plan: improving, cont supportive care. (4) Esophageal cancer: Plan: Patient presenting from home with reports of poor p.o. intake, vomiting, diarrhea since chemotherapy treatment on 05/19. History of esophageal cancer s/p esophageal stenting. Labs show mild neutropenia and anemia, WBC 3.6K, Hgb 9.9 EPEC found on stool culture. Given hospitalization and electrolyte abnormalities opted for 3 days of azithromycin started this morning. Continue supportive care with IVF, antiemetics Clear liquid diet for now, advancing as tolerated. Esophageal stent appears to be in position on CXR, consider CT with ongoing symptoms or pain Cont Roxanal PO for 1st line treatment of breakthrough pain and use morphine IV as backup. (5) Hypomagnesemia: Plan: Repleted. (6) Hyponatremia: Plan: Improving to 133. Cont with IVF and electrolyte replacement DVT PROPHYLAXIS--SQ Lovenox Full Code Dispo-cont hospitalization until eating solid food and symptoms have resolved. I spent a total [id number] coordinating, documenting, and providing care for this patient excluding time spent in the performance of separately billed services DO [facility] Hospitalist Admission and Anticipated Discharge Date Admission Date: May 29, 2023 Subjective 58-year-old man with esophageal cancer on chemotherapy presents with nausea vomiting and diarrhea. Dehydration is improving but he is still tolerating clears only. Intermittent vomiting and intermittent diarrhea that is also improving. He denies any fever. Pain appears to be well managed on morphine. He is taking IV morphine but typically takes Roxanol at home. We will switch to the oral Roxanol as a mainstay with the IV for backup to give better coverage of breakthrough pain. He was requesting to schedule antinausea medicine. Given the 3 days of azithromycin and the concern for prolonged QT will opt for Phenergan. We discussed these options today and he was in agreement. He wants to remain on a clear diet at this time. Physical Exam Physical Exam: CONSTITUTIONAL: WNWD, vitals as above, generally well-appearing, NAD EYES: normal conjunctivae, no scleral icterus ENT: external ear and nose normal, oropharynx clear MMM NECK: trachea midline RESPIRATORY: clear to auscultation bilaterally, no crackles, rales or wheezes, normal respiratory effort CARDIOVASCULAR: regular rate and rhythm, S1 and 2 heard without murmurs, gallops or rubs, no JVD, no peripheral edema CHEST: inspection of chest was normal GASTROINTESTINAL: soft, nontender, ND, no guarding MUSCULOSKELETAL: strength 5/5 throughout, head is normocephalic and atraumatic, SKIN: warm and dry, NEUROLOGIC: CN 2-12 grossly intact, no sensory deficit, normal cognition, normal speech, no tremor PSYCHIATRIC: alert cooperative and oriented to person, place and time. Euthymic mood, makes good eye contact, language grossly intact, recent and remote memory grossly intact. Results & Data Results & Data Vital Signs (Past 12 Hours) Vital Signs Temp Pulse Resp BP BP Pulse Ox O2 Del Method 05/30/23 07:20 36.5 C 65 16 103/64 100 Room Air 05/29/23 23:44 36.3 C L 71 16 111/76 98 Room Air Laboratory Results Short CBC 05/29/23 05/30/23 Range/Units 12:50 05:31 WBC 3.67 L 4.48 L (4.8-10.8) K/ul Hgb 9.9 L 8.9 L (14.0-18.0) g/dl Hct 30.0 L 26.8 L (42.0-52.0) % Plt Count 238 255 (130-400) K/uL BMP 05/29/23 05/30/23 12:50 05:31 Sodium 129 L 133 L Potassium 3.5 3.5 Chloride 96 L 103 Carbon Dioxide 21 24 BUN 9 6 Creatinine 0.71 0.66 Glucose 95 131 H Calcium 8.1 L 7.9 L Liver Function 05/29/23 Range/Units 12:50 Total Bilirubin 0.9 (0.2-1.0) mg/dl AST 15 (13-39) U/L ALT 17 (7-52) U/L Alkaline Phosphatase 72 (34-104) U/L Albumin 3.1 L (3.4-5.0) gm/dl Urine 05/30/23 Range/Units 07:47 Urine Color Dark Yellow Urine Appearance Cloudy A (Clear) Urine pH 6.0 (4.5-7.5) Ur Specific [place] 1.021 (1.000-1.030) Urine Protein 1+ H (Negative) Urine Glucose (UA) Negative (Negative) Medications Administered Current Inpatient Medications Acetaminophen (Acetaminophen 325 Mg Tab) 650 mg PO Q4H PRN PRN Reason: pain/fever Stop: 06/28/23 16:46 Enoxaparin Sodium (Enoxaparin Inj 40 Mg/0.4 Ml Syr) 40 mg SQ Q24H GREG Stop: 06/28/23 16:59 Last Admin: 05/29/23 17:23 Dose: 40 mg Potassium Chloride/Dextrose/Sod Cl (D5nss + 20meq Kcl) 20 meq in 1,000 mls @ 100 mls/hr IV .Q10H GREG; Protocol Stop: 06/28/23 16:59 Last Admin: 05/30/23 03:15 Dose: 100 mls/hr Morphine Sulfate (Morphine Sulfate 4 Mg/Ml 1 Ml Carp\Vial) 4 mg IV Q4H PRN PRN Reason: severe pain Stop: 06/12/23 16:46 Last Admin: 05/30/23 07:36 Dose: 4 mg Ondansetron HCl (Ondansetron Inj 2 Mg/Ml 2 Ml Vial) 4 mg IV Q6H PRN PRN Reason: Nausea Stop: 06/28/23 16:46 Last Admin: 05/30/23 07:36 Dose: 4 mg Pantoprazole Sodium (Pantoprazole 40 Mg Tab) 40 mg PO BID GREG Stop: 06/28/23 20:59 Last Admin: 05/29/23 20:56 Dose: 40 mg (4) Esophageal cancer Malignant neoplasm of esophagus location: lower third Qualified Code(s): C15.5 - Malignant neoplasm of lower third of esophagus
[2023-05-30] MEDS ORDERED: PROMETHAZINE HCL 12.5 MG in SODIUM CHLORIDE 0.9% 50 ML IV PRN (09:09)
[2023-05-30] MEDS: PANTOprazole 40 MG TAB PO SCH ×2 (09:52→21:01)
[2023-05-30] MEDS: AZITHROMYCIN 500 MG in DEXTROSE 5% 250 ML IV SCH (10:10)
[2023-05-30] MEDS: ENOXAPARIN INJ 40 MG/0.4 ML SYR SQ SCH (17:26)
[2023-05-30] MEDS ORDERED: MoRPHine SULFATE 10 MG/0.5 ML UDP PO PRN (17:38)
[2023-05-30] MEDS: PROMETHAZINE HCL 12.5 MG in SODIUM CHLORIDE 0.9% 50 ML IV SCH (17:55)
[2023-05-31] MEDS: MoRPHine SULFATE 4 MG/ML 1 ML CARP\\VIAL IV PRN ×4 (02:12→23:19)
[2023-05-31] MEDS: PROMETHAZINE HCL 12.5 MG in SODIUM CHLORIDE 0.9% 50 ML IV SCH ×3 (02:12→17:46)
[2023-05-31 06:42] LABS: Hematocrit (blood only) 27.6 % (42.0-52.0); Hemoglobin 8.7 g/dl (14.0-18.0); Mean Corpuscular Hemoglobin 24.8 pg (25.0-34.0); Mean Corpuscular Hgb Conc 31.5 g/dL (32.0-36.0); Mean Corpuscular Volume 78.6 fL (80.0-100.0); Mean Platelet Volume 9.2 fL (9.4-12.4); Platelet Count 238 K/uL (130-400); RDW Coefficient of Variation 19.9 % (11.5-14.5); RDW Standard Deviation 56.7 fL (36.4-46.3); Red Blood Count 3.51 M/uL (4.70-6.10); White Blood Count 5.36 K/ul (4.8-10.8)
--- NOTE | 2023-05-31 06:56 | Electrocardiogram Report ---
Test Reason : Blood Pressure : / mmHG Vent. Rate : 073 BPM Atrial Rate : 073 BPM P-R Int : 120 ms QRS Dur : 084 ms QT Int : 406 ms P-R-T Axes : 005 054 -01 degrees QTc Int : 447 ms Normal sinus rhythm Normal ECG When compared with ECG of 25-MAY-2023 23:17, T wave inversion now evident in Inferior leads Confirmed by Hardeep Rodrigues ([id number]) on 05/31/2023 6:56:15 AM Referred By: REFERRED SELF Confirmed By:Hardeep Rodrigues
[2023-05-31 07:03] LABS: BUN Creatinine Ratio 5.5 (10-20); Calcium 7.7 mg/dl (8.6-10.3); Creatinine Clr Calc Pharmacy 118.4 ml/min; Est GFR (African American) 132.2 ml/min; Est GFR (Non-African American) 114.1 ml/min; Magnesium 1.6 mg/dl (1.7-2.4); Phosphorus 2.2 mg/dl (2.5-4.9); Potassium 3.7 mmol/L (3.5-5.1)
[2023-05-31] MEDS ORDERED: MAGNESIUM SULFATE / D5W 1 GM/100 ML BAG IV ONE (08:49)
[2023-05-31] MEDS: AZITHROMYCIN 500 MG in DEXTROSE 5% 250 ML IV SCH (08:55)
[2023-05-31] MEDS: D5NSS + 20MEQ KCL 20 MEQ/1,000 ML BAG IV SCH ×2 (12:11→20:20)
[2023-05-31] MEDS: PANTOprazole 40 MG TAB PO SCH ×2 (12:17→20:20)
--- NOTE | 2023-05-31 12:42 | Hospitalist Progress Note ---
Date of Service May 31, 2023 Assessment & Plan (1) Enteropathogenic Escherichia coli infection: Plan: Typically doesn't require antibiotics, however, will add 3 days azithro given he is hospitalized, immunosuppressed and with electrolyte abnormalities. Today is day 2/3. (2) Acute dehydration: Plan: improving, cont current care. Currently on clear liquids. (3) Vomiting and diarrhea: Plan: improving, cont supportive care. (4) Anemia: Plan: Pt with initial neutropenia and anemia likely in setting of chemotherapy, chronic blood loss hgb stable at 8.7, monitor no s/sx of bleeding, wbc improving hgb slight drop likely 2/2 dilution following heme/onc, had venofer x 4 04/03-05/04 last anemia panel iron 11, tibc 260, ferritin 576, t sat 4 - reviewed in [facility] (5) Esophageal cancer: Plan: Patient presenting from home with reports of poor p.o. intake, vomiting, diarrhea since chemotherapy treatment on 05/19. History of esophageal cancer s/p esophageal stenting. Labs show mild neutropenia and anemia, WBC 5.36 today and hb 8.7, likely dropped due to dilution EPEC found on stool culture. Given hospitalization and electrolyte abnormalities opted for 3 days of azithromycin started this morning. Day 2 of 3. Continue supportive care with IVF, antiemetics Clear liquid diet for now, advancing as tolerated. Esophageal stent appears to be in position on CXR, consider CT with ongoing symptoms or pain Cont Roxanal PO for 1st line treatment of breakthrough pain and use morphine IV as backup. Home dose lorazepam ordered prn (6) Hypomagnesemia: Plan: 1.6 today will give additional 1g mag sulfate today recheck cbc, cmp, mag in a.m. (7) Hyponatremia: Plan: resolved DVT PROPHYLAXIS--SQ Lovenox Full Code Dispo-cont hospitalization until eating solid food and symptoms have resolved. Pt was seen and examined in collaboration with Dr. Rodriguez, please see addendum Discussed with patients Latonia and she agrees with above Admission and Anticipated Discharge Date Admission Date: May 29, 2023 Supervising Physician Co-Signing Physician Notes I have seen and discussed the case with the collaborating DUSTY. I agree with the above H&P. I have reviewed and confirmed the patients medical history, the findings on physical examination, and the patients diagnosis and treatment plan with Emmanuel MONTANO and agree with the information documented. Plan as documented above Subjective Pt was seen and examined in room 304-1. Follow up neutropenia, diarrhea. He is sitting up at bedside and states, " I always sit this this due to not being able to lay down after meals." He is tolerating liquids but unable to lay down due to uncontrolled reflux. Denies f/c/s, chest pain, sob, vomiting or diarrhea. Feels his diarrhea has subsided. He was started on azithromycin due to e.coli. He is tolerating this so far. Review of Systems Review of Systems: All systems reviewed & are unremarkable except as noted in HPI & below Physical Exam Physical Exam: Gen: WD/WN, M, sitting up at bedside, flat affect, NAD, A&O x3 HEENT: Normocephalic, atraumatic, conjunctivae moist, sclerae anicteric, mucous membranes moist. Lung: Clear to Auscultation bilaterally, no wheezes/rales/rhonchi Heart: Regular rate, regular rhythm, no murmurs, rubs, or gallops Abdomen: Soft, NT, ND +BS x 4 Extremities: No edema Skin: Warm, no rash, negative turgor. Results & Data Results & Data Vital Signs (Past 12 Hours) Vital Signs Temp Pulse Resp BP Pulse Ox O2 Del Method 05/31/23 07:59 37 C 72 16 122/82 99 Room Air Laboratory Results Short CBC 05/31/23 Range/Units 06:07 WBC 5.36 (4.8-10.8) K/ul Hgb 8.7 L (14.0-18.0) g/dl Hct 27.6 L (42.0-52.0) % Plt Count 238 (130-400) K/uL BMP 05/31/23 06:07 Sodium 136 Potassium 3.7 Chloride 107 Carbon Dioxide 23 BUN 3 L Creatinine 0.55 L Glucose 111 H Calcium 7.7 L Medications Administered Current Inpatient Medications Acetaminophen (Acetaminophen 325 Mg Tab) 650 mg PO Q4H PRN PRN Reason: pain/fever Stop: 06/28/23 16:46 Enoxaparin Sodium (Enoxaparin Inj 40 Mg/0.4 Ml Syr) 40 mg SQ Q24H GREG Stop: 06/28/23 16:59 Last Admin: 05/30/23 17:26 Dose: 40 mg Potassium Chloride/Dextrose/Sod Cl (D5nss + 20meq Kcl) 20 meq in 1,000 mls @ 100 mls/hr IV .Q10H GREG; Protocol Stop: 06/28/23 16:59 Last Admin: 05/31/23 12:11 Dose: 100 mls/hr Azithromycin 500 mg/ Dextrose 255 mls @ 127.5 mls/hr IV Q24H [facility] Stop: 06/01/23 11:07 Last Infusion: 05/31/23 11:11 Dose: Infused Promethazine HCl 12.5 mg/ (Sodium Chloride) 50.5 mls @ 202 mls/hr IV Q8H [facility] Stop: 06/29/23 17:44 Last Infusion: 05/31/23 08:55 Dose: Infused Morphine Sulfate (Morphine Sulfate 4 Mg/Ml 1 Ml Carp\\Vial) 4 mg IV Q4H PRN PRN Reason: severe pain Stop: 06/12/23 16:46 Last Admin: 05/31/23 08:30 Dose: 4 mg Morphine Sulfate (Morphine Sulfate 10 Mg/0.5 Ml Udp) 5 mg PO Q4 PRN PRN Reason: Pain Stop: 06/13/23 17:37 Pantoprazole Sodium (Pantoprazole 40 Mg Tab) 40 mg PO BID GREG Stop: 06/28/23 20:59 Last Admin: 05/31/23 12:17 Dose: 40 mg (5) Esophageal cancer Malignant neoplasm of esophagus location: lower third Qualified Code(s): C15.5 - Malignant neoplasm of lower third of esophagus
[2023-05-31] MEDS ORDERED: LORazepam 0.5 MG TAB PO PRN (13:17)
[2023-05-31] MEDS: ENOXAPARIN INJ 40 MG/0.4 ML SYR SQ SCH (17:51)
[2023-06-01] MEDS: PROMETHAZINE HCL 12.5 MG in SODIUM CHLORIDE 0.9% 50 ML IV SCH ×5 (01:46→08:10)
[2023-06-01] MEDS: D5NSS + 20MEQ KCL 20 MEQ/1,000 ML BAG IV SCH (06:04)
[2023-06-01] MEDS: MoRPHine SULFATE 4 MG/ML 1 ML CARP\\VIAL IV PRN (06:08)
[2023-06-01 06:53] LABS: Hematocrit (blood only) 28.3 % (42.0-52.0); Hemoglobin 9.1 g/dl (14.0-18.0); Mean Corpuscular Hgb Conc 32.2 g/dL (32.0-36.0); Mean Corpuscular Volume 77.7 fL (80.0-100.0); Mean Platelet Volume 9.2 fL (9.4-12.4); Platelet Count 278 K/uL (130-400); RDW Standard Deviation 56.8 fL (36.4-46.3); Red Blood Count 3.64 M/uL (4.70-6.10); White Blood Count 8.04 K/ul (4.8-10.8)
[2023-06-01 07:20] LABS: ALC (manual) 1.69 K/uL (1.2-3.4); ANC (manual) 4.58 K/uL (1.4-6.5); Acanthocytes 1+; Basophils # (manual) 0.08 K/uL (0-0.2); Basophils % (manual) 1 %; Echinocytes 1+; Lymphocytes # (manual) 1.69 K/uL (1.2-3.4); Lymphocytes % (manual) 21 %; Metamyelocytes # (manual) 0.16 K/uL (0-0); Metamyelocytes % (manual) 2 %; Monocytes # (manual) 1.21 K/uL (0.11-0.59); Monocytes % (manual) 15 %; Myelocytes # (manual) 0.32 K/uL (0-0); Myelocytes % (manual) 4 %; Neutrophils # (manual) 4.58 K/uL (1.40-6.50); Neutrophils % (manual) 57 %
[2023-06-01] MEDS: PANTOprazole 40 MG TAB PO SCH (08:16)
[2023-06-01] MEDS: AZITHROMYCIN 500 MG in DEXTROSE 5% 250 ML IV SCH (08:33)
[2023-06-01] MEDS: HEPARIN 100 UNIT/ML 5ML FLUSH FLUSH PRN ×2 (10:43→14:16)
--- NOTE | 2023-06-01 11:11 | Hospitalist Progress Note ---
Date of Service June 01, 2023 Assessment & Plan (1) Enteropathogenic Escherichia coli infection: Plan: Typically doesn't require antibiotics, however, will add 3 days azithro given he is hospitalized, immunosuppressed and with electrolyte abnormalities. Today is day 3/3. (2) Acute dehydration: Plan: improving, cont current care. Currently on full liquids, will advance to regular diet (3) Vomiting and diarrhea: Plan: improving, cont supportive care. (4) Anemia: Plan: Pt with initial neutropenia and anemia likely in setting of chemotherapy, chronic blood loss hgb stable at 8.7, monitor no s/sx of bleeding, wbc improving, off precautions hgb slight drop likely 2/2 dilution following heme/onc, had venofer x 4 04/03-05/04 last anemia panel iron 11, tibc 260, ferritin 576, t sat 4 - reviewed in [facility] (5) Esophageal cancer: Plan: Patient presenting from home with reports of poor p.o. intake, vomiting, diarrhea since chemotherapy treatment on 05/19. History of esophageal cancer s/p esophageal stenting. Labs show mild neutropenia and anemia, WBC 8.04 today and hb 9.1 EPEC found on stool culture. Given hospitalization and electrolyte abnormalities opted for 3 days of azithromycin started this morning. Day 3 of 3. Will d/c fluids as tolerating diet, continue with antiemetics advance to regular diet and monitor Esophageal stent appears to be in position on CXR, consider CT with ongoing symptoms or pain Cont Roxanal PO for 1st line treatment of breakthrough pain and use morphine IV as backup. Home dose lorazepam ordered prn (6) Hypomagnesemia: Plan: 1.7 today no further supplementation indicated (7) Hyponatremia: Plan: resolved DVT PROPHYLAXIS--SQ Lovenox Full Code Dispo-if tolerating diet can likely d/c later today or early tomorrow a.m. Pt was seen and examined in collaboration with Dr. Muller, please see addendum Admission and Anticipated Discharge Date Admission Date: May 29, 2023 Supervising Physician Co-Signing Physician Notes I have seen and discussed the case with the collaborating DUSTY. I agree with the above H&P. I have reviewed and confirmed the patients medical history, the findings on physical examination, and the patients diagnosis and treatment plan with Emmanuel MONTANO and agree with the information documented. Plan as documented above Subjective Pt was seen and examined in room 304-1. Follow up neutropenia, diarrhea. He is sitting up at bedside and states he gets worked up when people come in the room. It takes him a long time to eat. He is tolerating full liquid and wishes for more advanced diet. Wishes to be discharged home today. Review of Systems Review of Systems: All systems reviewed & are unremarkable except as noted in HPI & below Physical Exam Physical Exam: Gen: WD/WN, M, sitting up at bedside, flat affect, NAD, A&O x3 HEENT: Normocephalic, atraumatic, conjunctivae moist, sclerae anicteric, mucous membranes moist. Lung: Clear to Auscultation bilaterally, no wheezes/rales/rhonchi Heart: Regular rate, regular rhythm, no murmurs, rubs, or gallops Abdomen: Soft, NT, ND +BS x 4 Extremities: No edema Skin: Warm, no rash, negative turgor. Results & Data Results & Data Vital Signs (Past 12 Hours) Vital Signs Temp Pulse Resp BP Pulse Ox O2 Del Method 06/01/23 07:52 36.9 C 69 16 127/83 100 Room Air Medications Administered Current Inpatient Medications Acetaminophen (Acetaminophen 325 Mg Tab) 650 mg PO Q4H PRN PRN Reason: pain/fever Stop: 06/28/23 16:46 Enoxaparin Sodium (Enoxaparin Inj 40 Mg/0.4 Ml Syr) 40 mg SQ Q24H GREG Stop: 06/28/23 16:59 Last Admin: 05/31/23 17:51 Dose: 40 mg Heparin Sodium (Porcine) (Heparin 100 Unit/Ml 5ml Flush) 5 ml FLUSH PRN PRN PRN Reason: Flush Stop: 07/01/23 03:06 Last Admin: 06/01/23 10:43 Dose: 5 ml Promethazine HCl 12.5 mg/ (Sodium Chloride) 50.5 mls @ 202 mls/hr IV Q8H GREG Stop: 06/29/23 17:44 Last Infusion: 06/01/23 08:33 Dose: Infused Lorazepam (Lorazepam 0.5 Mg Tab) 0.5 mg PO Q6 PRN PRN Reason: .Anxiety/sleep Stop: 06/30/23 13:16 Morphine Sulfate (Morphine Sulfate 4 Mg/Ml 1 Ml Carp\Vial) 4 mg IV Q4H PRN PRN Reason: severe pain Stop: 06/12/23 16:46 Last Admin: 06/01/23 06:08 Dose: 4 mg Morphine Sulfate (Morphine Sulfate 10 Mg/0.5 Ml Udp) 5 mg PO Q4 PRN PRN Reason: Pain Stop: 06/13/23 17:37 Pantoprazole Sodium (Pantoprazole 40 Mg Tab) 40 mg PO BID GREG Stop: 06/28/23 20:59 Last Admin: 06/01/23 08:16 Dose: 40 mg (5) Esophageal cancer Malignant neoplasm of esophagus location: lower third Qualified Code(s): C15.5 - Malignant neoplasm of lower third of esophagus
--- NOTE | 2023-06-01 14:52 | Discharge Summary ---
Discharge Summary Date of Service June 01, 2023 Notes For Next Care Provider Patient treated for enteropathogenic E. coli. He received 3 days of IV azithromycin. Patient was dehydrated requiring IV fluid support. He was neutropenic throughout hospital stay but white blood cell count has improved and was 8000 on day of discharge. On day of discharge she was tolerating regular diet. Medication Changes From Visit none Admission HPI Per Admitting Provider 58-year-old male with PMH trigeminal neuralgia, esophageal cancer s/p esophageal stenting and current chemotherapy, and other problems listed below who presents to the ED for evaluation of nausea and dehydration. History obtained from the patient and review of outpatient oncology records. Patient diagnosed with esophageal mass in March, underwent esophageal stenting. Currently on FLOT therapy, last treatment on 05/19. Patient reports that since last chemotherapy treatment, he has had very poor appetite. He also reports associated nausea and vomiting/regurgitating. Denies hematemesis or coffee-ground emesis. Reports pain at esophageal stent location. Has been having diarrhea, denies bright red bleeding per rectum and dark tarry stools. No fevers or chills. Denies chest pain and shortness of breath. No lightheadedness, dizziness, diaphoresis, syncopal events. Denies urinary symptoms. In the ED, labs show WBC 3.6K, Hgb 9.9, Na+ 129, Mg +1.5. Patient was given IVF, IV morphine, magnesium replacement. Admission Exam Per Admitting Provider + ill appearing and + thin; no acute distress Eyes: PERRL, conjunctivae normal, anicteric sclerae ENMT: external ear and nose normal, oropharynx normal Respiratory: normal respiratory effort, lungs clear to auscultation Cardiovascular: Rate/Rhythm: regular rate and regular rhythm Vessels: normal peripheral pulses Extremities: no edema Gastrointestinal (Abdomen): normal bowel sounds, soft, nontender, no hepatosplenomegaly Musculoskeletal: no cyanosis or clubbing, extremities motor strength 5/5 Skin: no rashes, warm and dry Neurologic: PERRL, EOMI, accommodation nl, no face palsy, no dysarthria Psychiatric: A+Ox3, euthymic affect Principal Dx & Hospital Course #1 = Principal Diagnosis (1) Enteropathogenic Escherichia coli infection: Typically doesn't require antibiotics, however, will add 3 days azithro given he is hospitalized, immunosuppressed and with electrolyte abnormalities. Today is day 3/3. Finished course (2) Acute dehydration: improving, cont current care. tolerating regular diet (3) Vomiting and diarrhea: improving, cont supportive care. (4) Anemia: Pt with initial neutropenia and anemia likely in setting of chemotherapy, chronic blood loss hgb stable at 8.7, monitor no s/sx of bleeding, wbc improving, off precautions hgb slight drop likely 2/2 dilution following heme/onc, had venofer x 4 04/03-05/04 last anemia panel iron 11, tibc 260, ferritin 576, t sat 4 - reviewed in [facility] (5) Esophageal cancer: Patient presenting from home with reports of poor p.o. intake, vomiting, diarrhea since chemotherapy treatment on 05/19. History of esophageal cancer s/p esophageal stenting. Labs show mild neutropenia and anemia, WBC 8.04 today and hb 9.1 EPEC found on stool culture. Given hospitalization and electrolyte abnormalities opted for 3 days of azithromycin started this morning. Day 3 of 3. Will d/c fluids as tolerating diet, continue with antiemetics advance to regular diet and monitor Esophageal stent appears to be in position on CXR, consider CT with ongoing symptoms or pain Cont Roxanal PO for 1st line treatment of breakthrough pain and use morphine IV as backup. Home dose lorazepam ordered prn (6) Hypomagnesemia: 1.7 today no further supplementation indicated (7) Hyponatremia: resolved DVT PROPHYLAXIS--SQ Lovenox Full Code Dispo-tolerating regular diet will d/c Pt was seen and examined in collaboration with Dr. Muller, please see addendum Discharge Exam Gen: WD/WN, M, sitting up at bedside, flat affect, NAD, A&O x3 HEENT: Normocephalic, atraumatic, conjunctivae moist, sclerae anicteric, mucous membranes moist. Lung: Clear to Auscultation bilaterally, no wheezes/rales/rhonchi Heart: Regular rate, regular rhythm, no murmurs, rubs, or gallops Abdomen: Soft, NT, ND +BS x 4 Extremities: No edema Skin: Warm, no rash, negative turgor. Updated Medication List Medication Instructions Recorded Confirmed Type pantoprazole 40 mg tablet,delayed 40 mg PO BID #60 tabs 03/07/23 05/29/23 Rx release chlorpromazine 25 mg tablet 25 mg PO Q6 PRN .nausea or hiccups 05/26/23 05/29/23 History ondansetron HCl 8 mg tablet 8 mg PO Q8 PRN Nausea 05/26/23 05/29/23 History cyanocobalamin (vitamin B-12) 1,000 mcg PO DAILY 05/29/23 05/29/23 History 1,000 mcg tablet (Vitamin B-12) dexamethasone 4 mg tablet 8 mg PO DIRECTED 05/29/23 05/29/23 History lidocaine-prilocaine 2.5 %-2.5 % 1 applic topical DIRECTED 05/29/23 05/29/23 History topical cream lorazepam 0.5 mg tablet 0.5 mg PO Q6 PRN .Anxiety/sleep 05/29/23 05/29/23 History morphine concentrate 100 mg/5 mL 5 mg PO Q4 PRN Pain 05/29/23 05/29/23 History (20 mg/mL) oral solution prochlorperazine maleate 10 mg 10 mg PO Q6 PRN Nausea 05/29/23 05/29/23 History tablet Hospital Stay Data Consultations 05/29/23 14:35 ED Decision to Admit Stat Pending Results Patient Have Any Pending Studies at Discharge: No Discharge Instructions Given to Patient (Per Discharging Provider) MEDICATION CHANGES: No medication changes SUMMARY OF TEST RESULTS: You were admitted to hospital secondary to vomiting and diarrhea. Your stool tested positive for E. coli and you were treated with IV antibiotics for 3 days. This is likely due to immunosuppression with chemotherapy. You were also found to have a low white blood cell count and anemia, again due to chemotherapy. These counts improved with IV hydration as well as IV antibiotics. At time of discharge your white blood cell count was back to normal. Your magnesium was low during hospital stay and this was replaced PENDING TEST RESULTS: None RECOMMENDATIONS FOR FOLLOW-UP: Please follow up with primary care provider and oncology as scheduled. Recommend diet as tolerated. Stay well hydrated drinking at least 80 oz of water a day. Continue boost at least twice daily at home. Be very careful when in public or when going to chemotherapy sessions. Given the time of year and flu season would recommend wearing a mask given your immunosuppressed state. OTHER INSTRUCTIONS: Seek medical attention if you have: * temperature above 101 * chest pain or trouble breathing * abdominal pain, nausea, vomiting * diarrhea, dark stools or bloody stools * any unanswered questions or concerns Call 911 if symptoms are severe. Please take good care of yourself. It has been a pleasure taking care of you. Please take care of yourself. If you have any questions regarding your recent hospitalization please contact [facility] and request Silvia Steel @ [phone]. Total Time Total Time Spent Total Time Spent (In Minutes): 45 minutes Supervising Physician Co-Signing Physician Notes I have seen and discussed the case with the collaborating DUSTY. I agree with the above H&P. I have reviewed and confirmed the patients medical history, the findings on physical examination, and the patients diagnosis and treatment plan with Emmanuel MONTANO and agree with the information documented. Plan as documented above
== END 2023-06-01 14:40 | disposition home or self-care (01) | DRG 372 ==
LOC: ED 12:29 → SUATTDRO 14:41 → EDINP 14:41 → 3E 16:47

== ENCOUNTER 2023-09-01 09:34 | Inpatient (IN) ==
[2023-09-01 10:34] LABS: Basophils # (auto) 0.03 K/uL (0.00-0.20); Basophils % (auto) 0.5 %; Eosinophils # (auto) 0.02 K/uL (0.00-0.50); Eosinophils % (auto) 0.4 %; Hematocrit (blood only) 32.6 % (42.0-52.0); Hemoglobin 11.2 g/dl (14.0-18.0); Immature Granulocytes # (auto) 0.02 K/uL (0.01-0.20); Immature Granulocytes % (auto) 0.4 %; Lymphocytes # (auto) 1.86 K/uL (1.20-3.40); Lymphocytes % (auto) 33.9 %; Mean Corpuscular Hgb Conc 34.4 g/dL (32.0-36.0); Mean Corpuscular Volume 84.5 fL (80.0-100.0); Monocytes # (auto) 0.52 K/uL (0.11-0.59); Monocytes % (auto) 9.5 %; Neutrophils # (auto) 3.03 K/uL (1.40-6.50); Neutrophils % (auto) 55.3 %; Platelet Count 453 K/uL (130-400); RDW Coefficient of Variation 15.3 % (11.5-14.5); RDW Standard Deviation 46.5 fL (36.4-46.3); Red Blood Count 3.86 M/uL (4.70-6.10); White Blood Count 5.48 K/ul (4.8-10.8)
[2023-09-01 10:47] LABS: Alanine Aminotransferase 13 U/L (7-52); Albumin Globulin Ratio 1.1 (0.9-2); Alkaline Phosphatase 120 U/L (34-104); Anion Gap 13 (3-11); Aspartate Aminotransferase 11 U/L (13-39); Bilirubin,Total 0.5 mg/dl (0.2-1.0); Blood Urea Nitrogen 5 mg/dl (6-23); Calcium 9.9 mg/dl (8.6-10.3); Carbon Dioxide 23 mmol/L (21-32); Chloride 100 mmol/L (98-107); Est GFR (Non-African American) 102.7 ml/min; Globulin 3.7 gm/dl (2.5-4.0); Glucose 97 mg/dl (70-99(Fasting)); Magnesium 1.8 mg/dl (1.7-2.4); Potassium 3.5 mmol/L (3.5-5.1); Sodium 136 mmol/L (136-145); Total Protein 7.7 gm/dl (6.0-8.3)
[2023-09-01 11:09] LABS: INR 1.1 (0.9-1.1); Partial Thromboplastin Time 28 Seconds (21-31)
[2023-09-01] MEDS ORDERED: SODIUM CHLORIDE 0.9% 1,000 ML IV ONE (11:25)
--- NOTE | 2023-09-01 11:25 | Emergency Department Note ---
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 Patient states that he had a gastrectomy due to cancer done on 08/02. Since then he has had persistent nausea and vomiting. He told me this is expected after the surgery from his surgeon. Otherwise he has had back 2 to 3 days worth of diarrhea over the weekend, about 3 to 4 days ago. Otherwise he noticed solid bowel movement yesterday. He has had persistent nausea and vomiting, now weak. He feels dehydrated. He has no chest pain or shortness of breath. No abdominal pain. His well-healing incisions. No fevers. ROS: See above HPI for pertinent positives & negatives. A total of 10 systems reviewed and were otherwise negative. PAST MEDICAL HISTORY: See Below PAST SURGICAL HISTORY: See Below FAMILY HISTORY: See Below SOCIAL HISTORY: See Below HOME MEDICATIONS: See Below ALLERGIES: See Below VITALS: See Below PHYSICAL EXAMINATION: General: resting comfortably in no acute distress Head: Normocephalic and atraumatic Eyes: Normal inspection, extraocular muscles intact Ear, nose, throat: Normal external exam Neck: Normal range of motion Respiratory: lungs clear to auscultation bilaterally Cardiovascular: Regular rate/rhythm, no murmur GI: Well-healing surgical scars, soft nontender abdomen without rebound or guarding Extremities: nontender, moves all extremities Neuro: The patient awake and alert, appropriately conversive, no focal deficits, symmetric faces Skin: Warm, dry, and intact MEDICAL DECISION MAKING: This is a 58-year-old male presenting for dehydration. Patient had an anastomosis after gastrectomy. Will do CT Abdo/pelvis to evaluate for underlying infection, abscess or anastomotic leak. -Blood work reveals no leukocytosis, slight anemia, otherwise no severe electrolyte disturbances. Anion gap is 13, likely starvation ketosis, will resuscitate with fluids here -Patient to 2 L normal saline so far -Patient blood reveals no viral infection -Patient CT abdomen pelvis unfortunately does reveal a 5 cm abscess versus contained anastomotic leak -Will cover with Zosyn -Discussed with on-call surgeon at [facility] who recommends transfer to the facility, patient excepted under Dr. Edmonds -Currently pending bed at [facility] -Patient continues to have nausea, now anxiety, will give droperidol as Zofran has not improved his nausea -Patient admitted to hospital service as there is no current bed at [facility], could be 24+ hours until transfer -Discussed care with Anabell Irving, midlevel provider for [facility] See above ER treatment provided: See below Diagnostics interpreted by me: ECG: ECG independently interpreted by me with sinus versus junctional rhythm, rate of 60, normal axis, normal QRS, normal QTc, no ST segment elevations consistent with STEMI criteria Cardiac Monitoring: An order was placed for continuous cardiac monitoring. The monitor shows a rate of 67. Laboratory studies: As stated above and show below. Imaging studies: See below. Past Med/Surg History Medical History Enteropathogenic Escherichia coli infection Esophageal cancer diagnosed 04/2023--chemo/ERCP History of recent blood transfusion 05/02/23 @ [facility] Hypomagnesemia Hyponatremia Iron deficiency received blood transfusion 05/02/23 @ [facility] Trigeminal neuralgia Vomiting and diarrhea Surgical History History of colonoscopy History of ERCP 04/2023 @ [facility] History of esophagogastroduodenoscopy (EGD) History of tooth extraction partial upper and lower denture History of vascular access device A port--power port in placed on right side of chest Family History Other No family history of adverse response to anesthesia Social History Smoking Status: Never smoker Second Hand Exposure: No; Do You Dip or Chew Tobacco: No; Hx Alcohol Use: No (quit 3 months ago) Hx Substance Use: No Preferred Language: Faroese Communication Ability: Effective Accredited Legal Secretary Required: No Beliefs That Will Affect Care: Spiritual Current Living Situation: Spouse Feels Safe at Home: Yes Assistive Devices: Denture - Upper, Denture - Lower and Glasses Allergies Allergies Allergy/AdvReac Type Severity Reaction Status Date / Time carbamazepine [From Tegretol] Allergy Mild Rash Verified 06/20/23 06:52 Home Meds Home Medications Medication Instructions Recorded Confirmed chlorpromazine 25 mg tablet 25 mg PO Q6 PRN .nausea or hiccups 05/26/23 09/01/23 ondansetron HCl 8 mg tablet 8 mg PO Q8 PRN Nausea 05/26/23 09/01/23 cyanocobalamin (vitamin B-12) 1,000 mcg PO QDL 05/29/23 09/01/23 1,000 mcg tablet (Vitamin B-12) lidocaine-prilocaine 2.5 %-2.5 % 1 applic topical DIRECTED 05/29/23 09/01/23 topical cream lorazepam 0.5 mg tablet 0.5 mg PO Q6 PRN .Anxiety/sleep 05/29/23 09/01/23 morphine concentrate 100 mg/5 mL 2.5 mg PO Q4 PRN Pain 05/29/23 09/01/23 (20 mg/mL) oral solution prochlorperazine maleate 10 mg 10 mg PO Q6 PRN Nausea 05/29/23 09/01/23 tablet (Compazine) oxycodone 5 mg tablet 5 mg PO UD PRN Pain 09/01/23 09/01/23 pantoprazole 40 mg tablet,delayed 40 mg PO BID PRN Other 09/01/23 09/01/23 release Results & Data (ED) Vital Signs Vital Signs - 24 hr 09/01/23 09:35 09/01/23 10:28 09/01/23 10:30 Temperature 36.9 C Temperature Source Temporal Artery Scan Pulse Rate 87 58 L 57 L Pulse Rate [Finger] Pulse Rate from SpO2 Sensor 58 L 57 L Respiratory Rate 18 12 11 L Respiratory Effort / Characteristics Respiratory Depth Blood Pressure 120/84 Blood Pressure [Left Arm] Blood Pressure Mean 96 Blood Pressure Mean [Left Arm] Blood Pressure Position [Left Arm] Pulse Oximetry 100 100 100 Oxygen Delivery Method Sepsis Recent Fever Within 48 Hours No Sepsis New/Unexplained Change in Mental Status N/A Sepsis Action Taken by Nursing No Action Required 09/01/23 11:00 09/01/23 11:30 09/01/23 11:58 Temperature Temperature Source Pulse Rate 59 L 66 61 Pulse Rate [Finger] Pulse Rate from SpO2 Sensor 60 68 Respiratory Rate 16 9 L Respiratory Effort / Characteristics Respiratory Depth Blood Pressure Blood Pressure [Left Arm] Blood Pressure Mean Blood Pressure Mean [Left Arm] Blood Pressure Position [Left Arm] Pulse Oximetry 99 99 Oxygen Delivery Method Sepsis Recent Fever Within 48 Hours Sepsis New/Unexplained Change in Mental Status Sepsis Action Taken by Nursing 09/01/23 12:00 09/01/23 12:02 09/01/23 12:30 Temperature Temperature Source Pulse Rate 57 L 60 Pulse Rate [Finger] 58 L Pulse Rate from SpO2 Sensor 57 L 60 Respiratory Rate 19 16 9 L Respiratory Effort / Characteristics Non-Labored Respiratory Depth Normal Blood Pressure Blood Pressure [Left Arm] Blood Pressure Mean Blood Pressure Mean [Left Arm] Blood Pressure Position [Left Arm] Pulse Oximetry 99 97 96 Oxygen Delivery Method Room Air Sepsis Recent Fever Within 48 Hours Sepsis New/Unexplained Change in Mental Status Sepsis Action Taken by Nursing 09/01/23 12:50 09/01/23 13:00 09/01/23 13:30 Temperature Temperature Source Pulse Rate 68 71 Pulse Rate [Finger] 77 Pulse Rate from SpO2 Sensor 67 71 Respiratory Rate 18 19 3 L Respiratory Effort / Characteristics Respiratory Depth Blood Pressure Blood Pressure [Left Arm] 115/76 Blood Pressure Mean Blood Pressure Mean [Left Arm] 89 Blood Pressure Position [Left Arm] Pulse Oximetry 98 99 99 Oxygen Delivery Method Sepsis Recent Fever Within 48 Hours Sepsis New/Unexplained Change in Mental Status Sepsis Action Taken by Nursing 09/01/23 13:33 09/01/23 13:33 09/01/23 13:33 Temperature Temperature Source Pulse Rate 69 Pulse Rate [Finger] 67 Pulse Rate from SpO2 Sensor 69 Respiratory Rate 18 14 Respiratory Effort / Characteristics Respiratory Depth Blood Pressure 130/83 Blood Pressure [Left Arm] 130/83 Blood Pressure Mean 88 Blood Pressure Mean [Left Arm] 98 Blood Pressure Position [Left Arm] Sitting Pulse Oximetry 99 99 Oxygen Delivery Method Sepsis Recent Fever Within 48 Hours Sepsis New/Unexplained Change in Mental Status Sepsis Action Taken by Nursing 09/01/23 14:00 09/01/23 14:30 09/01/23 15:00 Temperature Temperature Source Pulse Rate 63 61 Pulse Rate [Finger] 67 Pulse Rate from SpO2 Sensor 65 60 Respiratory Rate 11 L 15 20 Respiratory Effort / Characteristics Non-Labored Spontaneous Respiratory Depth Normal Blood Pressure Blood Pressure [Left Arm] 137/97 Blood Pressure Mean Blood Pressure Mean [Left Arm] 110 Blood Pressure Position [Left Arm] Pulse Oximetry 98 99 97 Oxygen Delivery Method Room Air Sepsis Recent Fever Within 48 Hours Sepsis New/Unexplained Change in Mental Status Sepsis Action Taken by Nursing 09/01/23 15:08 09/01/23 15:08 09/01/23 15:24 Temperature Temperature Source Pulse Rate Pulse Rate [Finger] Pulse Rate from SpO2 Sensor 62 Respiratory Rate Respiratory Effort / Characteristics Respiratory Depth Blood Pressure 136/85 148/95 H Blood Pressure [Left Arm] Blood Pressure Mean 100 119 Blood Pressure Mean [Left Arm] Blood Pressure Position [Left Arm] Pulse Oximetry 99 Oxygen Delivery Method Sepsis Recent Fever Within 48 Hours Sepsis New/Unexplained Change in Mental Status Sepsis Action Taken by Nursing 09/01/23 15:24 09/01/23 15:30 09/01/23 16:00 Temperature Temperature Source Pulse Rate 60 Pulse Rate [Finger] Pulse Rate from SpO2 Sensor 66 66 60 Respiratory Rate 20 Respiratory Effort / Characteristics Respiratory Depth Blood Pressure 124/79 Blood Pressure [Left Arm] Blood Pressure Mean 94 Blood Pressure Mean [Left Arm] Blood Pressure Position [Left Arm] Pulse Oximetry 98 98 96 Oxygen Delivery Method Sepsis Recent Fever Within 48 Hours Sepsis New/Unexplained Change in Mental Status Sepsis Action Taken by Nursing 09/01/23 17:00 Temperature Temperature Source Pulse Rate 73 Pulse Rate [Finger] Pulse Rate from SpO2 Sensor 72 Respiratory Rate 12 Respiratory Effort / Characteristics Respiratory Depth Blood Pressure 126/83 Blood Pressure [Left Arm] Blood Pressure Mean 97 Blood Pressure Mean [Left Arm] Blood Pressure Position [Left Arm] Pulse Oximetry 97 Oxygen Delivery Method Sepsis Recent Fever Within 48 Hours Sepsis New/Unexplained Change in Mental Status Sepsis Action Taken by Nursing Laboratory Data 09/01/23 09:54 09/01/23 09:54 Lab Results 09/01/23 09/01/23 Range/Units 09:54 Unknown WBC 5.48 (4.8-10.8) K/ul RBC 3.86 L (4.70-6.10) M/uL Hgb 11.2 L (14.0-18.0) g/dl Hct 32.6 L (42.0-52.0) % MCV 84.5 (80.0-100.0) fL MCH 29.0 (25.0-34.0) pg MCHC 34.4 (32.0-36.0) g/dL RDW Std Deviation 46.5 H (36.4-46.3) fL RDW Coeff of Stone 15.3 H (11.5-14.5) % Plt Count 453 H (130-400) K/uL MPV 10.0 (9.4-12.4) fL Immature Gran % (Auto) 0.4 % Neut % (Auto) 55.3 % Lymph % (Auto) 33.9 % Martin % (Auto) 9.5 % Eos % (Auto) 0.4 % Baso % (Auto) 0.5 % Neut # (Auto) 3.03 (1.40-6.50) K/uL Lymph # (Auto) 1.86 (1.20-3.40) K/uL Martin # (Auto) 0.52 (0.11-0.59) K/uL Eos # (Auto) 0.02 (0.00-0.50) K/uL Baso # (Auto) 0.03 (0.00-0.20) K/uL Immature Gran # (Auto) 0.02 (0.01-0.20) K/uL PT 12.0 (9.0-12.0) Seconds INR 1.1 (0.9-1.1) APTT 28 (21-31) Seconds PTT Ratio 1.0 Sodium 136 (136-145) mmol/L Potassium 3.5 (3.5-5.1) mmol/L Chloride 100 (98-107) mmol/L Carbon Dioxide 23 (21-32) mmol/L Anion Gap 13 H (3-11) BUN 5 L (6-23) mg/dl Creatinine 0.71 (0.6-1.4) mg/dl Est Cr Clr Drug Dosing Not Reportable Est GFR ( Amer) 119.0 ml/min Est GFR (Non-Af Amer) 102.7 ml/min BUN/Creatinine Ratio 7.0 L (10-20) Glucose 97 (70-99(Fasting)) mg/dl Calcium 9.9 (8.6-10.3) mg/dl Magnesium 1.8 (1.7-2.4) mg/dl Total Bilirubin 0.5 (0.2-1.0) mg/dl AST 11 L (13-39) U/L ALT 13 (7-52) U/L Alkaline Phosphatase 120 H (34-104) U/L Total Protein 7.7 (6.0-8.3) gm/dl Albumin 4.0 (3.4-5.0) gm/dl Globulin 3.7 (2.5-4.0) gm/dl Albumin/Globulin Ratio 1.1 (0.9-2) Adenovirus (PCR) Not Detected (NotDetected) B. pertussis DNA (PCR) Not Detected (NotDetected) B.parapertussis DNA PCR Not Detected (NotDetected) C. pneumoniae DNA (PCR) Not Detected (NotDetected) Coronavirus OC43 (PCR) Not Detected (NotDetected) Coronavirus HKU1 (PCR) Not Detected (NotDetected) Coronavirus 229E (PCR) Not Detected (NotDetected) SARS-CoV-2 (PCR) Not Detected (NotDetected) Coronavirus NL63 (PCR) Not Detected (NotDetected) Human Metapneumovir PCR Not Detected (NotDetected) Influenza Type A (PCR) Not Detected (NotDetected) Influenza Type B (PCR) Not Detected (NotDetected) M. pneumoniae (PCR) Not Detected (NotDetected) Parainfluenza 1 (PCR) Not Detected (NotDetected) Parainfluenza 2 (PCR) Not Detected (NotDetected) Parainfluenza 3 (PCR) Not Detected (NotDetected) Parainfluenza 4 (PCR) Not Detected (NotDetected) RSV (PCR) Not Detected (NotDetected) Entero/Rhino (PCR) Not Detected (NotDetected) Administered Medications Discontinued Medications Droperidol (Droperidol 5 Mg/2 Ml Vial) 2.5 mg IV ONE STA Stop: 09/01/23 16:42 Last Admin: 09/01/23 16:54 Dose: 2.5 mg Documented By: OSWALDO Hydromorphone HCl (Hydromorphone Inj 0.5 Mg/0.5 Ml Syr) 0.5 mg IV NOW STA Stop: 09/01/23 15:10 Last Admin: 09/01/23 15:23 Dose: 0.5 mg Documented By: OSWALDO Sodium Chloride (Nss) 1,000 mls @ 999 mls/hr IV .Q1H1M ONE Stop: 09/01/23 12:25 Last Infusion: 09/01/23 15:06 Dose: Infused Documented By: Admin: 09/01/23 11:53 Dose: 999 mls/hr Documented By: SAMI Piperacillin Sod/Tazobactam Sod (Zosyn) 4.5 gm in 100 mls @ 200 mls/hr IV NOW ONE Stop: 09/01/23 13:43 Last Infusion: 09/01/23 15:06 Dose: Infused Documented By: Admin: 09/01/23 13:32 Dose: 200 mls/hr Documented By: JOSELIN Acetaminophen (Ofirmev) 1,000 mg in 100 mls @ 400 mls/hr IV NOW STA Stop: 09/01/23 15:23 Last Infusion: 09/01/23 15:44 Dose: Infused Documented By: Admin: 09/01/23 15:23 Dose: 400 mls/hr Documented By: OSWALDO Ioversol (Optiray 320 500ml) 90 ml IV ONCE ONE Stop: 09/01/23 11:47 Last Admin: 09/01/23 11:46 Dose: 90 ml Documented By: ELVIRA Ondansetron HCl (Ondansetron Inj 2 Mg/Ml 2 Ml Vial) Confirm Administered Dose 4 mg .ROUTE .STK-MED ONE Stop: 09/01/23 15:26 Last Admin: 09/01/23 15:38 Dose: Not Given Documented By: OSWALDO Ondansetron HCl (Ondansetron Inj 2 Mg/Ml 2 Ml Vial) 4 mg IV ONCE ONE Stop: 09/01/23 15:27 Last Admin: 09/01/23 15:27 Dose: 4 mg Documented By: OSWALDO Ondansetron HCl (Ondansetron Inj 2 Mg/Ml 2 Ml Vial) 4 mg IV NOW STA Stop: 09/01/23 15:30 Last Admin: 09/01/23 15:38 Dose: Not Given Documented By: OSWALDO Imaging Data Radiologist's Impression: Abdomen/Pelvis CT 09/01/23 11:[address] WITH IV CONTRAST CT DOSE: 386.27 mGy.cm HISTORY: Acute onset abdominal pain with nausea and vomiting recent gastrecomy, n/v, leak? TECHNIQUE: Multiaxial CT images of the abdomen and pelvis were performed following the IV administration of 90 cc of Optiray, A dose lowering technique was utilized adhering to the principles of ALARA. COMPARISON STUDY: 03/05/2023 FINDINGS: Trace pericardial and left pleural effusions. Mild left hemidiaphragmatic elevation with subsegmental left basilar atelectasis. No free air. Unremarkable spleen, adrenal glands, gallbladder and liver. Patent portal vein. The pancreatic duct measures within the upper limits of normal at 3-4 mm. No obstructing pancreatic ductal stone or lesion. No evidence of acute pancreatitis. Unremarkable kidneys. No hydronephrosis. Mild distention of the urinary bladder with mild prostamegaly. Atherosclerosis of the aorta without aneurysm. Postoperative changes from recent gastrectomy with enteric esophageal anastomosis. Subcentimeter gastrohepatic lymph nodes are present. There is a peripherally enhancing fluid collection within the abdominal left upper quadrant abutting the adjacent anastomotic sutures. This measures up to approximately 5 cm in length as measured on the sagittal images and contains nondependent air on image 48 series 3. This is curvilinear in shape and forms a tract to the enteric anastomosis on image 68 series 3 where there is circumferential wall thickening with adjacent inflammatory stranding. No bowel obstruction. Normal appendix. Wall thickening of the splenic flexure with loss of the normal fat plane between the adjacent fluid collection. Postoperative changes of the intra-abdominal wall with suggestion of tiny fat filled umbilical hernias. No acute fracture or destructive bone lesion. IMPRESSION: 1. Postoperative changes compatible with recent gastrectomy with esophageal enteric anastomosis. 2. There is wall thickening at the anastomotic site with adjacent inflammatory stranding. Additionally, there is a 5 cm peripherally enhancing air and fluid filled collection abutting the proximal anastomosis suggestive of a abscess/contained perforation which may include a fistula versus sinus tract. 3. Trace pericardial and left pleural effusions with mild left basilar atelectasis. 4. No bowel obstruction or pneumoperitoneum. 5. Mild wall thickening of the splenic flexure is likely reactive. A communicating sinus tract with the adjacent fluid collection would be difficult to exclude. 6. Additional findings as above. ACT 112: Negative or not required by law. The above report was generated using voice recognition software. It may contain grammatical, syntax or spelling errors. Electronically signed by: Lenny Day M.D. 09/01/2023 12:20 PM Discharge Plan Visit Data Chief Complaint: Illness Stated Complaint: dehydration, ams, vomiting, not eating ED Provider: Janet Kuhn Discharge Problem: Postoperative abscess Forms Stand Alone Forms: [facility] [employer] Prescriptions Prescriptions: No Action ondansetron HCl 8 mg tablet 8 mg PO Q8 PRN (Reason: Nausea) chlorpromazine 25 mg tablet 25 mg PO Q6 PRN (Reason: .nausea or hiccups) prochlorperazine maleate [Compazine] 10 mg tablet 10 mg PO Q6 PRN (Reason: Nausea) morphine concentrate 100 mg/5 mL (20 mg/mL) solution 2.5 mg PO Q4 PRN (Reason: Pain) Rx Instructions: per he takes 2.5 mg 09/01/23 Take 0.25 ml cyanocobalamin (vitamin B-12) [Vitamin B-12] 1,000 mcg Tablet 1,000 mcg PO QDL lidocaine-prilocaine 2.5-2.5 % Cream 1 applic topical DIRECTED Rx Instructions: Apply to skin over mediport & cover 1 hr prior to accessing. lorazepam 0.5 mg tablet 0.5 mg PO Q6 PRN (Reason: .Anxiety/sleep) oxycodone 5 mg tablet 5 mg PO UD PRN (Reason: Pain) Rx Instructions: has it filled if he needs it. pantoprazole 40 mg tablet,delayed release (DR/EC) 40 mg PO BID PRN (Reason: Other) Referrals Referrals: PCP,NO [Primary Care Provider] -
[2023-09-01] MEDS ORDERED: OPTIRAY 320 500ml IV ONE (11:46)
[2023-09-01 11:51] LABS: Adenovirus PCR Not Detected (NotDetected); Bordetella parapertussis PCR Not Detected (NotDetected); Bordetella pertussis PCR Not Detected (NotDetected); Chlamydia pneumoniae PCR Not Detected (NotDetected); Coronavirus 229E PCR Not Detected (NotDetected); Coronavirus CoV-2 (COVID19)PCR Not Detected (NotDetected); Coronavirus HKU1 PCR Not Detected (NotDetected); Coronavirus NL63 PCR Not Detected (NotDetected); Coronavirus OC43PCR Not Detected (NotDetected); Human Metapneumovirus PCR Not Detected (NotDetected); Influenza A PCR Not Detected (NotDetected); Influenza B PCR Not Detected (NotDetected); Mycoplasma pneumoniae PCR Not Detected (NotDetected); Parainfluenza Virus 1 PCR Not Detected (NotDetected); Parainfluenza Virus 2 PCR Not Detected (NotDetected); Parainfluenza Virus 3 PCR Not Detected (NotDetected); Parainfluenza Virus 4 PCR Not Detected (NotDetected); Respiratory Syncytial VirusPCR Not Detected (NotDetected); Rhinovirus/Enterovirus PCR Not Detected (NotDetected)
--- OUTSIDE RECORDS SUMMARY | 2023-09-01 12:10 | External Medical Summary | Summary of Care ---
Author Name Unknown Organization [facility] Address [address] [place] [address] Phone [phone] Care Team Providers Care Cyber Systems Administrator Name Role Phone Unavailable Primary Care Provider Unavailabl e Encounter Details Date Type Department Care Team (Late st Contact Info) Description 08/31/2023 12:20 PM EST [facility] General Surgery, [place] [address] [place], [place] [id number] Praveen Edmonds MD [address], [place] [id number] Postop check* Allergies Active Allergy Reactions Criticality Noted Date Comments Carbamazepine Rash Medium 02/20/2018 documented as of this encounter (statuses as of 08/31/2023) Medications Medication Sig Dispensed Refills Start Date End Date Status Thiamine HCl 100 MG Oral Tablet (vitamin B-1) Take 1 Tablet by mouth daily. 0 Active Prochlorperazine Maleate 10 MG Oral Tablet (Compazine)Indicat ions:Malignant neoplasm of lower third of esophagus (HCC) Take 1 Tablet by mouth every 6 hours as needed for Nausea. 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 30 g 1 04/13/2023 Active Dexamethasone 4 MG Oral Tablet (Decadron)Indicati ons:Malignant neoplasm of lower third of esophagus (HCC) Take 8mg twice a day x3 days starting the day before chemotherapy 48 Tablet 0 04/13/2023 Active Vitamin B-12 1000 MCG Oral Tablet (Cyanocobalamin)In dications:Malignan t neoplasm of lower third of esophagus (HCC) Take 1 Tablet by mouth in the morning. 30 Tablet 5 04/14/2023 Active Acetaminophen 160 MG/5ML Oral Liquid (Tylenol)Indicatio ns:Malignant neoplasm of lower third of esophagus (HCC) Take 20.3 mL by mouth every 4 hours as needed for Pain, Breakthrough. 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 30 Tablet 2 06/29/2023 Active Enoxaparin Sodium 40 MG/0.4ML Injection Solution Prefilled Syringe (Lovenox) Inject 40 mg under the skin in the morning. 11.2 mL 0 08/08/2023 Active oxyCODONE HCl 5 MG Oral Tablet (Oxy IR) Take 1 Tablet by mouth every 4 hours as needed for Pain, Severe. 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 08/03/2023 Hypomagnesemia 08/03/2023 Malignant neoplasm of stomach 08/03/2023 Dehydration 05/24/2023 Chemotherapy induced nausea and vomiting 023 Encounter for antineoplastic chemotherapy 2022 Iron deficiency anemia due to chronic blood loss 04/06/2023 Esophageal obstruction 04/02/2023 Malnutrition of moderate degree 04/01/2023 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 Staging:Clinical stage from 04/14/2023:Stage III(cT3, cN1, cM0) - Signed by Meng Saeed MD on 04/14/2023 Pathologic: Unsigned Esophageal dysphagia 03/31/2023 Esophageal mass 03/31/2023 Trigeminal neuralgia 02/16/2018 Degeneration of cervical intervertebral disc Overview: C5-6 disease documented as of this encounter (statuses as of 08/31/2023) Immunizations Name Administration Dates Next Due TDAP (age 10 and older)(Boostrix) 08/29/2010 documented as of this encounter Social History Tobacco Use Types Packs/Day Years Used Date Smoking Tobacco: Former Cigars Smokeless Tobacco: Never Comments:Very infrequently Alcohol Use Standard Drinks/Week Comments Yes 5 (1 standard drink = 0.6 oz pur e alcohol) PHQ-2 Answer Date Recorded PHQ-2 Score 0 06/18/2018 Sex and Gender Information Value Date Recorded Sex Assigned at Male 03/28/2023 3:19 PM EDT Gender Identity Male 03/28/2023 3:19 PM EDT Sexual Orientation Straight 03/28/2023 3: 19 PM EDT Job Start Date Occupation Industry Not on file Not on file Not on file documented as of this encounter Functional Status Functional Status Response Date of Assess ment Are you deaf or do you have serious difficulty h earing? No 08/02/2023 Are you blind or do you have serious difficulty seeing, even when wearing glasses? No 08/02/2023 Do you have serious difficul ty walking or climbing stairs? (5 years old or older) No 08/02/2023 Do you have difficulty dress ing or bathing? (5 years old or older) No 08/02/2023 Because of a physical, menta l, or emotional condition, do you have difficulty doing errands alone such as visiting a doctor s office or shopping? (15 years old or older) No 08/02/20 23 Cognitive Status Response Date of Assessm ent Because of a physical, menta l, or emotional condition, do you have serious difficulty concentrating, remembering, or making decisions? (5 years old or older) No 08/02/2023 documented as of this encounter Progress Notes * Praveen Edmonds MD - 08/31/2023 12:20 PM EST After connecting to the patient via telephone, the patient was identified by name and date of . Patient was then informed that this was a telephone call only visit. The patient agreed to participate. Visit Disposition: Routine follow-up Total call duration was 18 minutes. After connecting to the patient via telephone, the patient was identified by name and date of . Patient was then informed that this was a telephone call only visit. The patient agreed to participate. Visit Disposition: Routine follow-up Total call duration was 18 minutes. SURGICAL / BREAST [place] [address] DATE: 08/31/2023 PROCEDURE: 08/02/2023 Gastrectomy A: Esophagus (staple line drake proximal margin), biopsy: -Negative for tumor B: Stomach, tumor, total gastrectomy : -No residual carcinoma identified status post neoadjuvant chemotherapy. -Focal submucosal fibrosis/scar with abundant histiocytic reaction in GEJ compatible with the change of prior therapy. -All margins are negative for tumor. -Seventeen benign lymph nodes negative for metastasis (0/17). -See synoptic report C: Lymph nodes, regional dissection: -Five benign lymph nodes negative for metastasis (0/5). D: Anastomotic rings, excision: -Negative for tumor. Doing ok post op. His constipation is better. He is eating better. He would like to try more variety of foods General ROS: bowels are becoming regular Pain is as expected OE: telephone IMPRESSION / PLAN: S/P gastrectomy Doing ok overall - PAth reviewed and he had a CR from chemotherapy Following with Dr. Kuhn We will see him back as needed. Praveen Edmonds MD housing quality standard inspector Section Head, Surgical Oncology and Endocrine Surgery [facility] [address] [place] [address] Office: [phone] [email or web address] documented in this encounter Plan of Treatment Upcoming Encounters Date Type Department Care Team (Late st Contact Info) Description 09/06/2023 1:45 PM EST Office Visit Hematology/Oncology [address] [place] [address] Cipriano Kuhn MD [address] [facility] [place] [address] 09/06/2023 2:15 PM EST Immunization/Injec tion Hematology/Oncology Treatment, [address] [address] Nurse, Med [address] [place] [address] [place] [address] 09/28/2023 10:00 AM EST Office Visit Family Medicine [address] [phone] Tracey Nobles MD [address] [place] [address] [place] [address] Scheduled Procedures Name Priority Associated Diagnoses Date/Ti me ESOPHAGOGASTRODUODENOSCOPY ( EGD), FLEXIBLE, TRANSORAL, DIAGNOSTIC Recall Malignant neoplasm of esophagus, unspecified location (HCC) Health Maintenance Due Date Last Done Comments Hepatitis B (1 of 3 - 3-dose series) 1965 COVID-19 Vaccine (#1) 1964 Cologuard 2009 Fecal Occult Blood Test 2009 Sigmoidoscopy 2009 Zoster Vaccines (1 of 2) 2014 Depression Screening 12/21/2018 12/21/2017 Lipid Panel 04/19/2019 04/19/2014 DTaP,Tdap,and Td Vaccines (2 - Td or Tdap) 08/29/2020 08/29/2010 Influenza Vaccine (FLU shot) (#1) 2023 Colonoscopy 03/30/2033 03/30/2023, 03/30/2023 Colorectal Cancer Screening 03/30/2033 GARDASIL-HPV IMMUNIZATION SERIES Aged Out No longer eligible b ased on patient's age to complete this topic MENINGOCOCCAL (MENACTRA/MENVEO) Aged Out No longer eligible b ased on patient's age to complete this topic Pneumococcal Vaccine: Pediatrics (0 to 5 Years) and At-Risk Patients (6 to 64 Years) Aged Out No longer eligible b ased on patient's age to complete this topic documented as of this encounter Medical Devices Implanted Type Area Tube Winder Device Identifier Shelf Expiration Date Model / Serial / Lot Cement Hydroset Injectable 5cc - [id number] Implanted:Qty : 1 on 03/15/2018 by Ronak Khoury MD at OR [facility] [place] Left: Head JOHN 11/09/2019 [id number] / / [id number] Stent Wallf Esoph [id number] - [id number] Implanted:Qty : 1 on 04/01/2023 by Karson Goddard MD at ENDOSCOPY [facility] [place] N/A: Esophagus [employer] : ENDOSCOPY [id number] 09/09/2024 [id number] / / [id number] Power Port 8fr Sngl Lumen Plas - [id number] Implanted:Qty : 1 on 04/19/2023 by Thaddeus Brown DO at OR [facility] Right: Chest CR BARD : PERIPHERAL VASCULAR [id number] 06/14/2024 [id number] / / [id number] documented as of this encounter Visit Diagnoses Diagnosis Postop check- Primary Follow-up examination, following unspecified surgery documented in this encounter Advance Directives Latest Code Status on File Code Status Date Activated Date Inactivated Comments Full Code 08/02/2023 3:49 PM 08/08/2023 2:04 PM Thi s order reflects the patients wishes and were consensually agreed upon. Question Answer Comments Discussion of Advance Directives occurred with: Not Discussed due to patient's condition Does the patient have a Living Will? No Code Status History Code Status Date Activated Date Inactivated Comments Full Code 08/02/2023 11:11 AM 08/02/2023 3:49 PM Question Answer Comments Discussion of Advance Directives occurred with: Not Discussed due to patient's condition Full Code 03/31/2023 7:07 PM 04/03/2023 3:41 PM This order reflects the patients wishes and were consensually agreed upon. Question Answer Comments Discussion of Advance Directives occurred with: Patient Does the patient have a Living Will? No Does the patient have Health Care Power of Orthopedic Cast Specialist? No Full Code 03/15/2018 8:20 AM 03/16/2018 2:36 PM This or enrique reflects the patients wishes and were consensually agreed upon. Question Answer Comments Discussion of Advance Directives occurred with: Patient Does the patient have a Living Will? No Does the patient have Health Care Power of Orthopedic Cast Specialist? No Full Code 03/15/2018 6:20 AM 03/15/2018 8:20 AM This or enrique reflects the patients wishes and were consensually agreed upon.
--- OUTSIDE RECORDS SUMMARY | 2023-09-01 12:10 | External Medical Summary | Summary of Care ---
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 0 Active Prochlorperazine Maleate 10 MG Oral Tablet (Compazine)Indic ations:Malignant neoplasm of lower third of esophagus (HCC) Take 1 Tablet by mouth every 6 hours as needed for Nausea. 30 Tablet 2 04/13/2023 Active Lidocaine-Priloc aki 2.5-2.5 % External Cream (Emla)Indication s:Malignant neoplasm of lower third of esophagus (HCC) APPLY TO SKIN OVER MEDIPORT & COVER 1HR PRIOR TO ACCESSING. 30 g 1 04/13/2023 Active Dexamethasone 4 MG Oral Tablet (Decadron)Indica tions:Malignant neoplasm of lower third of esophagus (HCC) Take 8mg twice a day x3 days starting the day before chemotherapy 48 Tablet 0 04/13/2023 Active Vitamin B-12 1000 MCG Oral Tablet (Cyanocobalamin) Indications:Ara gnant neoplasm of lower third of esophagus (HCC) Take 1 Tablet by mouth in the morning. 30 Tablet 5 04/14/2023 Active Acetaminophen 160 MG/5ML Oral Liquid (Tylenol)Indicat ions:Malignant neoplasm of lower third of esophagus (HCC) Take 20.3 mL by mouth every 4 hours as needed for Pain, Breakthrough. 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 42 mL 0 06/29/2023 Discontinue d(Refill) documented as of this encounter (statuses as of 08/26/2023) Active Problems Problem Noted Date Diagnosed Date [...] as of this encounter (statuses as of 08/26/2023) Immunizations Name Administration Dates Next Due TDAP [...] (15 years old or older) No 08/02/20 Cognitive Status Response Date of Assessm ent Because of a physical, menta l, or emotional condition, do you have serious difficulty concentrating, remembering, or making decisions? (5 years old or older) No 08/02/2023 documented as of this encounter Miscellaneous Notes * Telephone Encounter - Khang Kuhn MD - 08/26/2023 11:16 AM EST E-prescribed liquid morphine. * Telephone Encounter - Khang Kuhn MD - 08/26/2023 11:16 AM ESTSigned Prescriptions: Disp Refills Morphine Sulfate (Concentrate) 100 MG/5ML *42 mL 0 Sig: Take 0.25 mL by mouth every 4 hours as needed for Pain, Moderate. Authorizing Provider: KHANG KUHN * Telephone Encounter - Tom Oneil, JANA - 08/26/2023 10:43 AM ESTPending Prescriptions: Disp Refills Morphine Sulfate (Concentrate) 100 MG/5ML *42 mL 0 Sig: Take 0.25 mL by mouth every 4 hours as needed for Pain, Moderate. * Telephone Encounter - Tom Oneil RN - 08/26/2023 10:42 AM EST Last filled 06/29/23 for 20 day supply. Checked PDMP, no concerns. * Telephone Encounter - Whitney Manuel, rn field case manager - 08/26/2023 10:21 AM EST Did you pend patient's preferred pharmacy and medication before forwarding?yes Pharmacy: [id number] [address] Pending Prescriptions: Disp Refills Morphine Sulfate (Concentrate) 100 MG/5ML*42 mL 0 Sig: Take 0.25 mL by mouth every 4 hours as needed for Pain, Moderate. Last Visit: Visit date not found (in office), Visit date not found (telemedicine) Next Visit: Visit date not found If no future appointments scheduled, and last appointment is greater than a year ago, please schedule patient for a follow-up appointment Last date the medication was ordered: 06/29/23 Is this request for a controlled substance?No Urine Drug Screen:No results found for this or any previous visit. Patient Phone Numbers Labs: Lab Results Component Value Date/Time CREAT 0.8 08/25/2023 12:37 PM CREAT 1.03 04/11/2021 12:00 AM CREAT 0.9 03/16/2018 04:22 AM POTASSIUM 4.1 08/25/2023 12:37 PM POTASSIUM 3.9 04/11/2021 12:00 AM POTASSIUM 3.9 03/16/2018 04:22 AM TSH 1.77 04/19/2014 09:21 AM LDLCALC 96 04/19/2014 09:21 AM LDLDIRECT NOT APPLICABLE 04/19/2014 09:21 AM ALT 43 08/25/2023 12:37 PM documented in this encounter Plan of Treatment Upcoming Encounters Date Type Department Care Team (Late st Contact Info) Description 08/31/2023 12:20 PM EST Telemedicine General Surgery, [place] [address] [place] [address] Praveen Edmonds MD [address] [place] [address] 09/06/2023 1:45 PM EST Office Visit Hematology/Oncology [facility] [address] [place] [address] Khang Kuhn MD [address] [place] [address] 09/06/2023 2:15 PM EST Immunization/Injection Hematology/Oncology Treatment, [place] [address] [place] [address] Nurse, Med [address] [place] [address] Scheduled Procedures Name Priority Associated Diagnoses Date/Ti [...] this encounter Medical Devices Implanted Type Area Lumber Straightened Device Identifier Shelf Expiration Date Model / Serial / Lot Cement Hydroset Injectable 5cc - [id number] Implanted:Qty : 1 on 03/15/2018 by Ronak Khoury MD at [place] [facility] [place] Left: Head JOHN 11/09/2019 [id number] / / [id number] Stent Wallf Esoph [id number] - [id number] Implanted:Qty : 1 on 04/01/2023 by Karson Goddard MD at ENDOSCOPY [facility] [place] N/A: Esophagus [employer] : ENDOSCOPY [id number] 09/09/2024 [id number] / / [id number] Power Port 8fr Sngl Lumen Plas - [id number] Implanted:Qty : 1 on 04/19/2023 by Thaddeus Brown DO at OR [facility] Right: Chest CR BARD : PERIPHERAL VASCULAR [id number] 06/14/2024 [id number] / / [id number] documented as of this encounter Visit Diagnoses Diagnosis Malignant neoplasm of lower third of esophagus (HCC) Malignant neoplasm of lower third of esophagus 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 No Full Code 03/15/2018 8:20 AM 03/16/2018 2:36 PM This or enrique reflects the patients wishes and were consensually agreed upon. Question Answer Comments Discussion of Advance Directives occurred with: Patient Does the patient have a Living Will? No Does the patient have Health Care Power of Credit Front Office Developer? No Full Code 03/15/2018 6:20 AM 03/15/2018 8:20 AM This or enrique reflects the patients wishes and were consensually agreed upon.
--- OUTSIDE RECORDS SUMMARY | 2023-09-01 12:10 | External Medical Summary | Summary of Care ---
Author Name Unknown Organization [facility] Address [address] [place] [address] Phone [phone] Care Team Providers Care Job Coaching Name Role Phone Unavailable Primary Care Provider Unavailabl e Reason for Visit * Reason Onset Date Comments Advice 08/28/2023 Encounter Details Date Type Department Care Team (Late st Contact Info) Description 08/28/2023 Telephone General Surgery, [place] [address] [place] [address] Praveen Edmonds MD [address] [place] [address] Advice Allergies Active Allergy Reactions Criticality Noted Date Comments Carbamazepine Rash Medium 02/20/2018 documented as of this encounter (statuses as of 08/28/2023) Medications Medication Sig Dispensed Refills Start Date [...] as of this encounter (statuses as of 08/28/2023) Active Problems Problem Noted Date Diagnosed Date [...] as of this encounter (statuses as of 08/28/2023) Immunizations Name Administration Dates Next Due TDAP [...] encounter Miscellaneous Notes * Telephone Encounter - Bell Elizabet Ulysses - No Ob/Or, GLADIS - 08/28/2023 7:57 AM EST [place] called, [place] is having trouble moving his bowel for 4 days would like advice on what to do Dr Loza Thank you elizabet documented in this encounter Plan of Treatment Upcoming Encounters Date Type Department Care Team (Late st Contact Info) Description 08/31/2023 12:20 PM EST Telemedicine General Surgery, [place] [address] [place] [address] Praveen Edmonds MD [address] [place] [address] 09/06/2023 1:45 PM EST Office Visit Hematology/Oncology [facility] [place] [address] [facility] [place] [address] Cipirano Kuhn MD [address] [place] [address] 09/06/2023 2:15 PM EST Immunization/Injection Hematology/Oncology Treatment, [place] [address] [facility] [place] [address] Nurse, Med [address] [place] [address] Scheduled Procedures Name Priority Associated Diagnoses Date/Ti [...] this encounter Medical Devices Implanted Type Area Sales And Service Agent Device Identifier Shelf Expiration Date Model / Serial / Lot Cement Hydroset Injectable 5cc - [id number] Implanted:Qty : 1 on 03/15/2018 by Ronak Khoury MD at OR [facility] [place] Left: Head JOHN 11/09/2019 [id number] / / [id number] Stent Wallf Esoph 23/[id number] - [id number] Implanted:Qty : 1 on 04/01/2023 by Karson Goddard MD at ENDOSCOPY [facility] N/A: Esophagus [employer] : ENDOSCOPY [id number] 09/09/2024 [id number] / / [id number] Power Port 8fr Sngl Lumen Plas - [id number] Implanted:Qty : 1 on 04/19/2023 by Thaddeus Brown DO at OR [facility] Right: Chest CR BARD : PERIPHERAL VASCULAR [id number] 06/14/2024 [id number] / / [id number] documented as of this encounter Advance Directives Latest Code Status [...] the patient have Health Care Power of Mutual Fund Manager? No Full Code 03/15/2018 8:20 AM 03/16/2018 2:36 PM This or enrique reflects the patients wishes and were consensually agreed upon. Question Answer Comments Discussion of Advance Directives occurred with: Patient Does the patient have a Living Will? No Does the patient have Health Care Power of Mutual Fund Manager? No Full Code 03/15/2018 6:20 AM 03/15/2018 8:20 AM This or enrique reflects the patients wishes and were consensually agreed upon.
--- OUTSIDE RECORDS SUMMARY | 2023-09-01 12:10 | External Medical Summary | Summary of Care ---
Author Name Unknown Organization [facility] Address [address] [place] [address] Phone [phone] Care Team Providers Care Hotel Administrative Assistant Name Role Phone Unavailable Primary Care Provider Unavailabl e Reason for Visit * Reason Onset Date Comments Appointment 08/26/2023 Encounter Details Date Type Department Care Team (Late st Contact Info) Description 08/26/2023 Telephone Family Medicine [address] [id number] ADDRESS AVAILABLE Appointment Allergies Active Allergy Reactions Criticality Noted Date Comments Carbamazepine Rash Medium 02/20/2018 documented as of this encounter (statuses as of 08/30/2023) Medications Medication Sig Dispensed Refills Start Date [...] as of this encounter (statuses as of 08/30/2023) Active Problems Problem Noted Date Diagnosed Date [...] as of this encounter (statuses as of 08/30/2023) Immunizations Name Administration Dates Next Due TDAP [...] encounter Miscellaneous Notes * Telephone Encounter - Raina Rodriguez RN - 08/30/2023 1:28 PM EST Pt has only ever been seen in this clinic once for a hospital follow up,last summer he needs to make an appt to establish with a Provider My G message sent to patient with an appt for Sep to establish * Telephone Encounter - Prachi Madrid OSA - 08/26/2023 10:47 AM EST No Appointments Available Patient declined appointments?: Yes What Visit Type is needed? Acute If Acute Visit Type is needed, were surrounding clinics offered to patient (Yes/No)? Yes Was patient offered appointments with other available providers (Yes/No)? Yes See Call Details? (Yes or No): Yes Needs video visit WILLIAM for medicine for depression and anxiexty has been really bad after surgery no apppts available please call back about this she is worried documented in this encounter Plan of Treatment Upcoming Encounters Date Type Department Care Team (Late st Contact Info) Description 08/31/2023 12:20 PM EST [facility] [address] [place] [address] Praveen Edmonds MD [address] [place] [address] 09/06/2023 1:45 PM EST Office Visit Hematology/Oncology [facility] 200 [facility] [place] [address] Cipriano Kuhn MD 200 [place] [address] 09/06/2023 2:15 PM EST Immunization/Injection Hematology/Oncology Treatment, [place] [address] [place] [address] Nurse, Med 200 [facility] [place] [address] 09/28/2023 10:00 AM EST Office Visit Family Medicine [address] [id number] Tracey Nobles MD [address] [place] [address] Scheduled Procedures Name Priority Associated Diagnoses Date/Ti [...] this encounter Medical Devices Implanted Type Area Color Drum Worker Device Identifier Shelf Expiration Date Model / Serial / Lot Cement Hydroset Injectable 5cc - [id number] Implanted:Qty : 1 on 03/15/2018 [place] [facility] [place] Head JOHN 11/09/2019 [id number] / / [id number] Stent Wallf Esoph 23/[id number] - [id number] Implanted:Qty : 1 on 04/01/2023 by Karson Goddard [place] [facility] [place]: Esophagus [employer] : ENDOSCOPY [id number] 09/09/2024 [id number] / / [id number] Power Port 8fr Sngl Lumen Plas - [id number] Implanted:Qty : 1 on 04/19/2023 by Thaddeus Brown DO at OR [facility] Right: Chest CR BARD : PERIPHERAL VASCULAR [id number] 06/14/2024 [id number] / / [id number] documented as of this encounter Advance Directives [...] the patient have Health Care Power of Three Dimensional Art Instructor? No Full Code 03/15/2018 8:20 AM 03/16/2018 2:36 PM This or enrique reflects the patients wishes and were consensually agreed upon. Question Answer Comments Discussion of Advance Directives occurred with: Patient Does the patient have a Living Will? No Does the patient have Health Care Power of Three Dimensional Art Instructor? No Full Code 03/15/2018 6:20 AM 03/15/2018 8:20 AM This or enrique reflects the patients wishes and were consensually agreed upon.
--- OUTSIDE RECORDS SUMMARY | 2023-09-01 12:11 | External Medical Summary | Summary of Care ---
Author Name Unknown Organization [facility] Address [address] [place] [address] Phone [phone] Care Team Providers Care Print Shop Assistant Name Role Phone Unavailable Primary Care Provider Unavailabl e Reason for Visit * Reason Onset Date Comments Advice 08/19/2023 Dr. Bam angeles Encounter Details Date Type Department Care Team (Late st Contact Info) Description 08/19/2023 Telephone Hematology/Oncology [facility] [address] [place] [address] Services, Scheduling [address] [place] [address] Advice (Dr. Kuhn patient ) Allergies Active Allergy Reactions Criticality Noted Date Comments Carbamazepine Rash Medium 02/20/2018 documented as of this encounter (statuses as of 08/22/2023) Medications Medication Sig Dispensed Refills Start Date [...] Pain, Breakthrough. 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 42 mL 0 06/29/2023 Active Ondansetron HCl 8 MG Oral Tablet [...] Pain, Severe. 12 Tablet 0 08/08/2023 Active documented as of this encounter (statuses as of 08/22/2023) Active Problems Problem Noted Date Diagnosed Date [...] as of this encounter (statuses as of 08/22/2023) Immunizations Name Administration Dates Next Due TDAP [...] encounter Miscellaneous Notes * Telephone Encounter - Tom Oneil RN - 08/22/2023 10:46 AM EST Pts PCP is Dr. Rasheed. I called and spoke to the patient, he states he is currently taking Lorazepam on an as needed basis. He states this does help him. He denies needing anything further and states he has 20-30 tablets left. I advised that if this is helping he can request a refill when he needs one. If he feels like he needs anything additional he needs to reach out to his PCP for further management. Pt verbalized understanding. * Telephone Encounter - Cipriano Kuhn MD - 08/20/2023 5:44 PM EST Who is his Primary-care provider? Earlier we was taking Ativan, we can try that and see whether that would be beneficial. * Telephone Encounter - Tom Oneil RN - 08/19/2023 9:22 AM EST Called and spoke with patients . Advised that our office typically doesn't prescribe medications for anxiety/depression and he should follow up with his PCP in regards to the symptoms he is experiencing. Dr. Kuhn- do you prefer patient to follow up with PCP and or would you like to start patient on a medication until he can be seen? * Telephone Encounter - Prachi Wilkes OSA - 08/19/2023 8:06 AM EST Patients Latonia asked to speak to Ely or another nurse. She advised her recently hada gastrectomy & he has been having some issues with nightmares & depression since the surgery. She was inquiring if there was any medication he could be placed on to help him through this. She would like a call back at [phone]. Thank you. documented in this encounter Plan of Treatment Upcoming Encounters Date Type Department Care Team (Late st Contact Info) Description 09/06/2023 1:45 PM EST Office Visit Hematology/Oncology [facility] 200 [facility] [place] [address] Cipriano Kuhn MD 200 [facility] [place] [address] 09/06/2023 2:15 PM EST Immunization/Injec tion Hematology/Oncology Treatment, [place] [address] [place] [address] Nurse, Med 200 [facility] [place] [address] Scheduled Procedures Name Priority Associated Diagnoses Date/Ti [...] this encounter Medical Devices Implanted Type Area Media Liaison Officer Device Identifier Shelf Expiration Date Model / Serial / Lot Cement Hydroset Injectable 5cc - [id number] Implanted:Qty : 1 on 03/15/2018 by Ronak Khoury MD at [place] [facility] [place] Left: Head JOHN 11/09/2019 [id number] / / [id number] Stent Wallf Esoph 23/[id number] - [id number] Implanted:Qty : 1 on 04/01/2023 by Karson Goddard MD at ENDOSCOPY [facility] [place] N/A: Esophagus [employer] : ENDOSCOPY [id number] 09/09/2024 [id number] / / [id number] Power Port 8fr Sngl Lumen Plas - [id number] Implanted:Qty : 1 on 04/19/2023 by Thaddeus Brown DO at OR [facility] Right: Chest CR BARD : PERIPHERAL VASCULAR [id number] 06/14/2024 [id number] / / [id number] documented as of this encounter Advance Directives [...] the patient have Health Care Power of Practice Managers? No Full Code 03/15/2018 8:20 AM 03/16/2018 2:36 PM This or enrique reflects the patients wishes and were consensually agreed upon. Question Answer Comments Discussion of Advance Directives occurred with: Patient Does the patient have a Living Will? No Does the patient have Health Care Power of Practice Managers? No Full Code 03/15/2018 6:20 AM 03/15/2018 8:20 AM This or enrique reflects the patients wishes and were consensually agreed upon.
--- OUTSIDE RECORDS SUMMARY | 2023-09-01 12:11 | External Medical Summary | Summary of Care ---
Author Name Unknown Organization [facility] Address [address] [place] [address] Phone [phone] Care Team Providers Care Licensed Reactor Operator Name Role Phone Unavailable Primary Care Provider Unavailabl e Reason for Visit * Reason Onset Date Comments Advice 08/19/2023 Dr. Bam angeles Encounter Details Date Type Department Care Team (Late st Contact Info) Description 08/19/2023 Telephone Hematology/Oncology [facility] [address] [place] [address] Services, Scheduling [address] [place] [address] Advice (Dr. Kuhn patient ) Allergies Active Allergy Reactions Criticality Noted Date Comments Carbamazepine Rash Medium 02/20/2018 documented as of this encounter (statuses as of 08/20/2023) Medications Medication Sig Dispensed Refills Start Date [...] as of this encounter (statuses as of 08/20/2023) Active Problems Problem Noted Date Diagnosed Date [...] as of this encounter (statuses as of 08/20/2023) Immunizations Name Administration Dates Next Due TDAP [...] encounter Miscellaneous Notes * Telephone Encounter - Cipriano Kuhn MD [...] She would like a call back at [phone]. Thank you. documented in this encounter Plan of Treatment Upcoming Encounters Date Type Department Care Team (Late st Contact Info) Description 09/06/2023 1:45 PM EST Office Visit Hematology/Oncology [facility] 200 [facility] [place] [address] Cipriano Kuhn MD 200 [place] [address] 09/06/2023 2:15 PM EST Immunization/Injec tion Hematology/Oncology Treatment, [place] 200 [place] [address] Nurse, Med 200 [place] [address] Scheduled Procedures Name Priority Associated Diagnoses Date/Ti [...] this encounter Medical Devices Implanted Type Area Environmental Research Project Manager Device Identifier Shelf Expiration Date Model / Serial / Lot Cement Hydroset Injectable 5cc - [id number] Implanted:Qty : 1 on 03/15/2018 by Ronak Khoury MD [place] [facility] [place] Head JOHN 11/09/2019 [id number] / / [id number] Stent Wallf Esoph 23/[id number] - [id number] Implanted:Qty : 1 on 04/01/2023 by Karson Goddard [place] [facility] [place]A: Esophagus [employer] : ENDOSCOPY [id number] 09/09/2024 [id number] / / [id number] Power Port 8fr Sngl Lumen Plas - [id number] Implanted:Qty : 1 on 04/19/2023 by Thaddeus Brown DO at OR [facility] Right: Chest CR BARD : PERIPHERAL VASCULAR [id number] 06/14/2024 [id number] / / [id number] documented as of this encounter Advance Directives [...] the patient have Health Care Power of Rotary Driller? No Full Code 03/15/2018 8:20 AM 03/16/2018 2:36 PM This or enrique reflects the patients wishes and were consensually agreed upon. Question Answer Comments Discussion of Advance Directives occurred with: Patient Does the patient have a Living Will? No Does the patient have Health Care Power of Rotary Driller? No Full Code 03/15/2018 6:20 AM 03/15/2018 8:20 AM This or enrique reflects the patients wishes and were consensually agreed upon.
--- OUTSIDE RECORDS SUMMARY | 2023-09-01 12:11 | External Medical Summary | Summary of Care ---
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 118 mL 3 04/14/2023 Active Morphine Sulfate (Concentrate) 100 MG/5ML Oral [...] OR SLEEP 30 Tablet 0 08/23/2023 Active documented as of this encounter (statuses as of 08/25/2023) Active Problems Problem Noted Date Diagnosed Date [...] as of this encounter (statuses as of 08/25/2023) Immunizations Name Administration Dates Next Due TDAP [...] on file documented as of this encounter Last Filed Vital Signs Vital Sign Reading Time Taken Comments Blood Pressure 116/80 08/25/2023 1:00 PM EST Pulse 85 08/25/2023 1:00 PM EST Temperature 37 C (98.6 F) 08/25/2023 1:00 PM EST Respiratory Rate 16 08/25/2023 1:00 PM EST Oxygen Saturation 97% 08/25/2023 1:00 PM EST Inhaled Oxygen Concentration - - Weight - - Height - - Body Mass Index - - documented in this encounter Functional Status Functional Status Response [...] No 08/02/2023 documented as of this encounter Nursing Notes * Monae Pace, RN - 08/25/2023 4:05 PM EST Chair 7. Port accessed, patient here for IVF over 2 hours. Labs drawn and are WNL. Patient says he has not been feeling good, not eating very much since his surgery and has still been dry heaving a lot. Patient says occasionally phlegm comes up but nothing else. Patient did say theIVF last time did help him out a lot. Safety and Risk for Injury Patient will remain free from injury. Ensure appropriate safety devices are available. Provide and maintain safe environment. Goals: Patient will remain free from injury. Possible barriers to meeting goals: ambulating with IV pole Stability of the patient: Moderately stable - low risk of patient condition declining or worsening Summary regarding today's goals: Met: pt remained free of harm today Patient tolerated treatment well without any acute issues or problems. Patient left facility in stable condition and denied any further needs. documented in this encounter Plan of Treatment Upcoming Encounters Date Type Department Care Team (Late st Contact Info) Description 08/31/2023 12:20 PM EST Telemedicine General Surgery, [place] [address] [place] [address] Praveen Edmonds MD [address] [place], [place] [id number] 09/06/2023 1:45 PM EST Office Visit Hematology/Oncology [facility] [address] [place] [address] Cipriano Kuhn MD [address] [place] [address] 09/06/2023 2:15 PM EST Immunization/Injection Hematology/Oncology Treatment, [place] [address] [place] [address] Nurse, Med 4 [address] [place] [address] Scheduled Procedures Name Priority Associated Diagnoses Date/Ti [...] this encounter Medical Devices Implanted Type Area Psychology Assistant Device Identifier Shelf Expiration Date Model / Serial / Lot Cement Hydroset Injectable 5cc - [id number] Implanted:Qty : 1 on 03/15/2018 by Ronak Khoury MD at [place] [facility] [place] Left: Head JOHN 11/09/2019 [id number] / / [id number] Stent Wallf Esoph 23/[id number] - [id number] Implanted:Qty : 1 on 04/01/2023 by Karson Goddard MD at ENDOSCOPY [facility] [place] N/A: Esophagus [employer] : ENDOSCOPY [id number] 09/09/2024 [id number] / / [id number] Power Port 8fr Sngl Lumen Plas - [id number] Implanted:Qty : 1 on 04/19/2023 by Thaddeus Brown DO at OR [facility] Right: Chest CR BARD : PERIPHERAL VASCULAR [id number] 06/14/2024 [id number] / / [id number] documented as of this encounter Visit Diagnoses Diagnosis Chemotherapy induced nausea and vomiting- Primary Nausea with vomiting Dehydration 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 Given 08/25/2023 3:07 PM EST 500 Units sodium chloride 0.9 % flush central line 10 mL 10 mL, IV Push, PRN Other, IV Flush, Starting on 08/25/24 at 1507, Until Tue08/26/23 at 1506, For 24 hours, Do not flush if lock, PICC, or central line not in place; IV infusing or unable to flush. Given 08/25/2023 3:07 PM EST 10 mL Inactive Administered Medications - up to 3 most recent administrations Medication Order MAR Action Action Date Dose Rate Site NSS infusion FOR HYDRATION Intravenous, at 500 mL/hr Administer over 2 Hours, ONCE, 1 dose, On [place] 08/25/23 at 1615 Start Infusion 08/25/2023 1:07 PM EST 1,000 mL 500 mL/hr documented in this encounter Advance Directives Latest [...] the patient have Health Care Power of Multi Operation Machine Operator? No Full Code 03/15/2018 8:20 AM 03/16/2018 2:36 PM This or enrique reflects the patients wishes and were consensually agreed upon. Question Answer Comments Discussion of Advance Directives occurred with: Patient Does the patient have a Living Will? No Does the patient have Health Care Power of Multi Operation Machine Operator? No Full Code 03/15/2018 6:20 AM 03/15/2018 8:20 AM This or enrique reflects the patients wishes and were consensually agreed upon.
--- OUTSIDE RECORDS SUMMARY | 2023-09-01 12:11 | External Medical Summary | Summary of Care ---
Author Name Unknown Organization [facility] Address [address] [place] [address] Phone [phone] Care Team Providers Care Supplies Packer Name Role Phone Unavailable Primary Care Provider Unavailabl e Reason for Visit * Reason Onset Date Comments Advice 08/19/2023 Dr. Bam angeles Encounter Details Date Type Department Care Team (Late st Contact Info) Description 08/19/2023 Telephone Hematology/Oncology [facility] [address] [place] [address] Services, Scheduling [address] [place] [address] Advice (Dr. Kuhn patient ) Allergies Active Allergy Reactions Criticality Noted Date Comments Carbamazepine Rash Medium 02/20/2018 documented as of this encounter (statuses as of 08/19/2023) Medications Medication Sig Dispensed Refills Start Date [...] as of this encounter (statuses as of 08/19/2023) Active Problems Problem Noted Date Diagnosed Date [...] as of this encounter (statuses as of 08/19/2023) Immunizations Name Administration Dates Next Due TDAP [...] She would like a call back at [phone]. Thank you. documented in this encounter Plan of Treatment Upcoming Encounters Date Type Department Care Team (Late st Contact Info) Description 09/06/2023 1:45 PM EST Office Visit Hematology/Oncology [facility] [place] [address] [place], [place] [address] Cipriano Kuhn MD 200 [facility] [place], [place] [address] 09/13/2023 8:45 AM EST Office Visit Hematology/Oncology [facility] [address] [place] [address] Cipriano Kuhn MD 200 [facility] [place] [address] 09/13/2023 9:15 AM EST Immunization/Injec tion Hematology/Oncology Treatment, [place] [address] [facility] [address] [place] [address] Nurse, Med 4 200 [facility] [place] [address] Scheduled Procedures Name Priority Associated Diagnoses Date/Ti [...] this encounter Medical Devices Implanted Type Area Director Mobile Device Identifier Shelf Expiration Date Model / Serial / Lot Cement Hydroset Injectable 5cc - [id number] Implanted:Qty : 1 on 03/15/2018 [place] [facility] [place]: Head JOHN 11/09/2019 [id number] / / [id number] Stent Wallf Esoph 23/23qjx00ag - [id number] Implanted:Qty : 1 on 04/01/2023 by Karson Goddard [place] [facility] [place]A: Esophagus [employer] : ENDOSCOPY [id number] 09/09/2024 [id number] / / [id number] Power Port 8fr Sngl Lumen Plas - [id number] Implanted:Qty : 1 on 04/19/2023 by Thaddeus Brown DO at OR [facility] Right: Chest CR BARD : PERIPHERAL VASCULAR [id number] 06/14/2024 [id number] / / [id number] documented as of this encounter Advance Directives [...] the patient have Health Care Power of Echo Vascular Technologist? No Full Code 03/15/2018 8:20 AM 03/16/2018 2:36 PM This or enrique reflects the patients wishes and were consensually agreed upon. Question Answer Comments Discussion of Advance Directives occurred with: Patient Does the patient have a Living Will? No Does the patient have Health Care Power of Echo Vascular Technologist? No Full Code 03/15/2018 6:20 AM 03/15/2018 8:20 AM This or enrique reflects the patients wishes and were consensually agreed upon.
--- OUTSIDE RECORDS SUMMARY | 2023-09-01 12:11 | External Medical Summary | Summary of Care ---
Author Name Unknown Organization [facility] Address [address] [place] [address] Phone [phone] Care Team Providers Care Erp Project Manager Name Role Phone Unavailable Primary Care Provider Unavailabl e Encounter Details Date Type Department Care Team (Late st Contact Info) Description 08/17/2023 3:20 PM EST [facility] General Surgery, [place] [address], [place] [id number] Praveen Edmonds MD [address], [place] [id number] Postop check* Allergies Active Allergy Reactions Criticality Noted Date Comments Carbamazepine Rash Medium 02/20/2018 documented as of this encounter (statuses as of 08/17/2023) Medications Medication Sig Dispensed Refills Start Date [...] as of this encounter (statuses as of 08/17/2023) Active Problems Problem Noted Date Diagnosed Date [...] as of this encounter (statuses as of 08/17/2023) Immunizations Name Administration Dates Next Due TDAP [...] Progress Notes * Praveen Edmonds MD - 08/17/2023 3:20 PM EST After connecting to the patient via telephone, the patient was identified by name and date of . Patient was then informed that this was a telephone call only visit. The patient agreed to participate. Visit Disposition: Routine follow-up Total call duration was 18 minutes. SURGICAL / BREAST ON[place]OGY [place] [address] DATE: 08/17/2023 PROCEDURE: 08/02/2023 Gastrectomy A: Esophagus (staple line [...] -Negative for tumor. Doing ok post op. Some dry heaves today Eating some General ROS: bowels are becoming regular Pain is as expected OE: telephone IMPRESSION / PLAN: S/P gastrectomy Doing ok overall - PAth reviewed and he had a CR from chemotherapy Following with Dr. Kuhn Will do a phone call in 2 weeks to monitor his progress Praveen Edmonds MD warm in Section Head, Surgical Oncology and Endocrine Surgery [facility] [address] [place] [address] Office: [phone] [email or web address] documented in this encounter Plan of Treatment Upcoming Encounters Date Type Department Care Team (Late st Contact Info) Description 09/13/2023 8:45 AM EST Office Visit Hematology/Oncology [facility] [place] [address] [place] [address] Cipriano Kuhn MD 200 [place] [address] 09/13/2023 9:15 AM EST Immunization/Injec tion Hematology/Oncology Treatment, [place] [address] [place] [address] Nurse, Med 4 200 [facility] [place] [address] Scheduled Procedures Name Priority Associated Diagnoses Date/Ti [...] this encounter Medical Devices Implanted Type Area Packing Machine Feeder Device Identifier Shelf Expiration Date Model / Serial / Lot Cement Hydroset Injectable 5cc - [id number] Implanted:Qty : 1 on 03/15/2018 [place] [facility] [place] JOHN 11/09/2019 [id number] / / [id number] Stent Wallf Esoph 23/[id number] - [id number] Implanted:Qty : 1 on 04/01/2023 by Karson Goddard [place] [facility] [place] Esophagus [employer] : ENDOSCOPY [id number] 09/09/2024 [id number] / / [id number] Power Port 8fr Sngl Lumen Plas - [id number] Implanted:Qty : 1 on 04/19/2023 by Thaddeus Brown DO at OR [facility] Right: Chest CR BARD : PERIPHERAL VASCULAR [id number] 06/14/2024 [id number] / / [id number] documented as of this encounter Visit Diagnoses [...] the patient have Health Care Power of Examiner Of Currency? No Full Code 03/15/2018 8:20 AM 03/16/2018 2:36 PM This or enrique reflects the patients wishes and were consensually agreed upon. Question Answer Comments Discussion of Advance Directives occurred with: Patient Does the patient have a Living Will? No Does the patient have Health Care Power of Examiner Of Currency? No Full Code 03/15/2018 6:20 AM 03/15/2018 8:20 AM This or enrique reflects the patients wishes and were consensually agreed upon.
--- OUTSIDE RECORDS SUMMARY | 2023-09-01 12:11 | External Medical Summary ---
Author Name Unknown Address Unknown Organization [facility] [place] [address] Laboratory Report Ordering Provider Test Date Status JUSTINA QUIÑONEZ 08/25/2023 12:37:24 Final Observation Date Value Abnormality Reference (Units ) Status SYNC LEUKOCYTES IN BLOOD BY AUTOMATED COUNT 08/25/2023 12:37:24 10.56 4.00-10.80 (K/uL) Final Segs 08/25/2023 12:37:24 73.9 40.0-75.0 (%) Final Lymphs % 08/25/2023 12:37:24 16.5 Below low normal 18.0-42.0 (%) Final Monos 08/25/2023 12:37:24 9.4 1.0-11.0 (%) Final Eosinophils 08/25/2023 12:37:24 0.1 0.0-6.0 (%) Final Basos 08/25/2023 12:37:24 0.1 0.0-2.0 (%) Final Absolute Segs 08/25/2023 12:37:24 7.81 Above high normal 1.80-7.70 (K/uL) Final Lymphs, absolute 08/25/2023 12:37:24 1.74 1.00-4.80 (K/ul) Final Monos, Abs 08/25/2023 12:37:24 0.99 0.00-1.10 (K/uL) Final Eos, Abs 08/25/2023 12:37:24 0.01 0.00-0.70 (K/uL) Final Basos, Abs 08/25/2023 12:37:24 0.01 0.00-0.20 (K/uL) Final Performing Location [facility] [place] [address]
--- OUTSIDE RECORDS SUMMARY | 2023-09-01 12:11 | External Medical Summary | Summary of Care ---
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 30 Tablet 0 05/04/2023 Discontinued documented as of this encounter (statuses as of 08/23/2023) Active Problems Problem Noted Date Diagnosed Date [...] as of this encounter (statuses as of 08/23/2023) Immunizations Name Administration Dates Next Due TDAP [...] Telephone Encounter - Khang Kuhn MD - 08/23/2023 11:22 AM EST E-prescribed Ativan. * Telephone Encounter - Khang Kuhn MD - 08/23/2023 11:22 AM ESTSigned Prescriptions: Disp Refills LORazepam 0.5 MG Oral Tablet (Ativan) 30 Tab*0 Sig: TAKE ONE TABLET BY MOUTH EVERY 6 HOURS NEEDED FOR ANXIETY OR SLEEP Authorizing Provider: KHANG KUHN * Telephone Encounter - Saji Meyers [facility] - 08/23/2023 11:05 AM EST Pending Prescriptions: Disp Refills LORazepam 0.5 MG Oral Tablet [Pharmacy Med*30 Tab*0 Sig: TAKE ONE TABLET BY MOUTH EVERY 6 HOURS NEEDED FOR ANXIETY OR SLEEP * Telephone Encounter - Saji Meyers RP - 08/23/2023 11:02 AM EST I have reviewed the patients controlled substance dispensing history in the Prescription Drug Monitoring Program in compliance with the [facility] regulations before prescribing a controlled substance. PDMP checked on 08/23/2023. Pending Prescriptions: Disp Refills LORazepam 0.5 MG Oral Tablet (Ativan) [Ph*30 Tab*0 Sig: TAKE ONE TABLET BY MOUTH EVERY 6 HOURS NEEDED FOR ANXIETY OR SLEEP Last Visit: 03/10/2023 (in office), Visit date not found (telemedicine) Next Visit: Visit date not found Date medication was last filled: 06/09/23 Date medication is due for refill: 06/19/23 Pharmacy: [id number] [address] [facility] Is this request for a controlled substance? Yes and Urine Drug Screen Not completed Toxicology results: No results found for this or any previous visit. Please approve if appropriate. Thanks, Saji Meyers, PharmD Clinical Pharmacist [facility] ([facility]) (formerly Telepharmacy) [phone] 08/23/2023, 11:02 AM documented in this encounter Plan of Treatment Upcoming Encounters Date Type Department Care Team (Late st Contact Info) Description 09/06/2023 1:45 PM EST Office Visit Hematology/Oncology [facility] [place] [address] [place] [address] Khang Kuhn MD 200 [place] [address] 09/06/2023 2:15 PM EST Immunization/Injec tion Hematology/Oncology Treatment, [place] [address] [place] [address] Nurse, Med 200 [facility] [address] Scheduled Procedures Name Priority Associated Diagnoses Date/Ti [...] this encounter Medical Devices Implanted Type Area Reading Coach Device Identifier Shelf Expiration Date Model / Serial / Lot Cement Hydroset Injectable 5cc - [id number] Implanted:Qty : 1 on 03/15/2018 by Ronak Khoury MD [place] [facility] [place]: Head JOHN 11/09/2019 [id number] / / [id number] Stent Wallf Esoph 23/[id number] - [id number] Implanted:Qty : 1 on 04/01/2023 by Karson Goddard MD [place] [facility] [place]A: Esophagus [employer] : ENDOSCOPY [id number] 09/09/2024 [id number] / / [id number] Power Port 8fr Sngl Lumen Plas - [id number] Implanted:Qty : 1 on 04/19/2023 by Thaddeus Brown DO at OR [facility] Right: Chest CR BARD : PERIPHERAL VASCULAR [id number] 06/14/2024 [id number] / / [id number] documented as of this encounter Visit Diagnoses Diagnosis 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 No Full Code 03/15/2018 8:20 AM 03/16/2018 2:36 PM This or enrique reflects the patients wishes and were consensually agreed upon. Question Answer Comments Discussion of Advance Directives occurred with: Patient Does the patient have a Living Will? No Does the patient have Health Care Power of Lumber Loader? No Full Code 03/15/2018 6:20 AM 03/15/2018 8:20 AM This or enrique reflects the patients wishes and were consensually agreed upon.
--- OUTSIDE RECORDS SUMMARY | 2023-09-01 12:11 | External Medical Summary ---
Author Name Unknown Address Unknown Organization [facility] [place] [address] Laboratory Report Ordering Provider Test Date Status JUSTINA QUIÑONEZ 08/25/2023 12:37:24 Final Observation Date Value Abnormality Reference (Units ) Status Magnesium 08/25/2023 12:37:24 2.2 1.5-2.6 (m g/dL) Final Performing Location [facility] [place] [address]
--- OUTSIDE RECORDS SUMMARY | 2023-09-01 12:11 | External Medical Summary | Summary of Care ---
Author Name Unknown Organization [facility] Address [address] [place] [address] Phone [phone] Care Team Providers Care Isotope Technician Name Role Phone Unavailable Primary Care Provider Unavailabl e Reason for Visit * Reason Onset Date Comments Advice 08/19/2023 Dr. Bam angeles Encounter Details Date Type Department Care Team (Late st Contact Info) Description 08/19/2023 Telephone Hematology/Oncology [facility] [address] [place] [address] Services, Scheduling [address] [place] [address] Advice (Dr. Kuhn patient ) Allergies Active [...] encounter Miscellaneous Notes * Telephone Encounter - Prachi Wilkes OSA [...] She would like a call back at [phone]. Thank you. documented in this encounter Plan of Treatment Upcoming Encounters Date Type Department Care Team (Late st Contact Info) Description 09/06/2023 1:45 PM EST Office Visit Hematology/Oncology [facility] [place] [address] [place] [address] Cipriano Kuhn MD [address] [place] [address] 09/13/2023 8:45 AM EST Office Visit Hematology/Oncology [facility] [place] [address] [place] [address] Cipriano Kuhn MD [address] [place] [address] 09/13/2023 9:15 AM EST Immunization/Injec tion Hematology/Oncology Treatment, [place] [address] [place] [address] Nurse, [facility] 200 [place] [address] Scheduled Procedures Name Priority Associated Diagnoses Date/Ti [...] this encounter Medical Devices Implanted Type Area Medical Affairs Specialist Device Identifier Shelf Expiration Date Model / Serial / Lot Cement Hydroset Injectable 5cc - [id number] Implanted:Qty : 1 on 03/15/2018 by Ronak hKoury MD at [place] [facility] [place] Left: Head JOHN 11/09/2019 [id number] / / [id number] Stent Wallf Esoph 23/70zdb65ro - [id number] Implanted:Qty : 1 on 04/01/2023 by Karson Goddard MD at [place] [facility] [place] N/A: Esophagus [employer] : ENDOSCOPY [id number] 09/09/2024 [id number] / / [id number] Power Port 8fr Sngl Lumen Plas - [id number] Implanted:Qty : 1 on 04/19/2023 by Thaddeus Brown DO at OR [facility] Right: Chest CR BARD : PERIPHERAL VASCULAR [id number] 06/14/2024 [id number] / / [id number] documented as of this encounter Advance Directives [...] the patient have Health Care Power of Wooden Boat Builder? No Full Code 03/15/2018 8:20 AM 03/16/2018 2:36 PM This or enrique reflects the patients wishes and were consensually agreed upon. Question Answer Comments Discussion of Advance Directives occurred with: Patient Does the patient have a Living Will? No Does the patient have Health Care Power of Wooden Boat Builder? No Full Code 03/15/2018 6:20 AM 03/15/2018 8:20 AM This or enrique reflects the patients wishes and were consensually agreed upon.
--- OUTSIDE RECORDS SUMMARY | 2023-09-01 12:11 | External Medical Summary | Summary of Care ---
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) Allergies Active Allergy Reactions Criticality Noted Date Comments Carbamazepine Rash Medium 02/20/2018 documented as of this encounter (statuses as of 08/12/2023) Medications Medication Sig Dispensed Refills Start Date [...] as of this encounter (statuses as of 08/12/2023) Active Problems Problem Noted Date Diagnosed Date [...] as of this encounter (statuses as of 08/12/2023) Immunizations Name Administration Dates Next Due TDAP [...] Sign Reading Time Taken Comments Blood Pressure 125/83 08/12/2023 2:48 PM EST Pulse 80 08/12/2023 2:48 PM EST Temperature 36.6 C (97.8 F) 08/12/2023 2:48 PM ES T Respiratory Rate 18 08/12/2023 2:48 PM EST Oxygen Saturation 100% 08/12/2023 2:48 PM EST Inhaled Oxygen Concentration - - [...] as of this encounter Nursing Notes * Shyanne Gil RN - 08/12/2023 4:44 PM EST Pt completed treatment without issues. VAD flushed with 10 ml NSS and Heparin 5 ml (100 units/ml). Bird needle removed intact. Goals: Pt will remain free from injury. Possible barriers to meeting goals: ambulation with IV pole Stability of the patient: Moderately stable - low risk of patient condition declining or worsening Summary regarding today's goals: Met: Pt remained free from injury during treatment today. Discharged in stable condition. NO coverage. * Shyanne Gil RN - 08/12/2023 2:48 PM EST Chair 3, IV hydration. Pt denies pain, bowel issues, and N/V. Pt is tolerating a liquid diet. Pt has no acute concerns to report. VAD accessed; NSS infusing. Safety and Risk for Injury Patient will remain free from injury. Ensure appropriate safety devices are available. Provide and maintain safe environment. documented in this encounter Plan of Treatment Upcoming Encounters Date Type Department Care Team (Late st Contact Info) Description 08/17/2023 3:20 PM EST Telemedicine General Surgery, [place] [address] [place] [address] Praveen Edmonds MD [address] [place] [address] 09/13/2023 8:45 AM EST Office Visit Hematology/Oncology [facility] 200 [facility] [place] [address] Cipriano Kuhn MD 200 [place] [address] 09/13/2023 9:15 AM EST Immunization/Injection Hematology/Oncology Treatment, [place] [address] [facility] [place] [address] Nurse, Med 200 [place] [address] Scheduled Procedures Name Priority Associated Diagnoses Date/Ti [...] this encounter Medical Devices Implanted Type Area Noodle Catalyst Maker Device Identifier Shelf Expiration Date Model / Serial / Lot Cement Hydroset Injectable 5cc - [id number] Implanted:Qty : 1 on 03/15/2018 by Ronak Khoury MD at [place] [facility] [place] Left: Head JOHN 11/09/2019 [id number] / / [id number] Stent Wallf Esoph 23/53cbw07ug - [id number] Implanted:Qty : 1 on 04/01/2023 by Karson Goddard MD at [place] [facility] [place] N/A: Esophagus [employer] : ENDOSCOPY [id number] 09/09/2024 [id number] / / [id number] Power Port 8fr Sngl Lumen Plas - [id number] Implanted:Qty : 1 on 04/19/2023 by Thaddeus Brown DO at OR [facility] Right: Chest CR BARD : PERIPHERAL VASCULAR [id number] 06/14/2024 [id number] / / [id number] documented as of this encounter Visit Diagnoses [...] Lock, PRN Other, IV Flush, Starting on 08/12/23 at 1447, Until 08/13/23 at 1446, For 24 hours, Do not flush if lock, PICC, or central line not in place; IV infusing or unable to flush. Given 08/12/2023 4:38 PM EST 500 Units sodium chloride 0.9 % flush central line 10 mL 10 mL, IV Push, PRN Other, IV Flush, Starting on Tue08/12/23 at 1447, Until 08/13/23 at 1446, For 24 hours, Do not flush if lock, PICC, or central line not in place; IV infusing or unable to flush. Given 08/12/2023 4:38 PM EST 10 mL Inactive Administered Medications - up to 3 most recent administrations Medication Order MAR Action Action Date Dose Rate Site NSS infusion FOR HYDRATION Intravenous, at 500 mL/hr Administer over 2 Hours, ONCE, 1 dose, On Tue08/12/23 at 1600 Start Infusion 08/12/2023 2:38 PM EST 1,000 mL 500 mL/hr documented [...] the patient have Health Care Power of Cell Plasterer? No Full Code 03/15/2018 8:20 AM 03/16/2018 2:36 PM This or enrique reflects the patients wishes and were consensually agreed upon. Question Answer Comments Discussion of Advance Directives occurred with: Patient Does the patient have a Living Will? No Does the patient have Health Care Power of Cell Plasterer? No Full Code 03/15/2018 6:20 AM 03/15/2018 8:20 AM This or enrique reflects the patients wishes and were consensually agreed upon.
--- OUTSIDE RECORDS SUMMARY | 2023-09-01 12:11 | External Medical Summary | Summary of Care ---
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) [...] No 08/02/2023 documented as of this encounter Plan of Treatment Upcoming Encounters Date Type Department Care Team (Late st Contact Info) Description 08/25/2023 1:00 PM EST Hem[facility] 200 [place] [address] Sandra, Chair 9 Hem Onc [place] [address] [address] [place] [address] Arrived 08/31/2023 12:20 PM EST [facility] [address] [place] [address] Praveen Edmonds MD [address] [place] [address] 09/06/2023 1:45 PM EST Office Visit Hematology/Oncology [facility] [address] [facility] [place] [address] Cipriano Kuhn MD [address] [facility] [place] [place] [address] 09/06/2023 2:15 PM EST [facility] [address] Nurse, Med 4 [address] [place] [address] Pending Results Name Type Priority Associated Diagnoses Date /Time CBC WITH WBC DIFFERENTIAL Lab STAT 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) 08/25/2023 12:37 PM EST COMPREHENSIVE METABOLIC PANEL Lab STAT 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) 08/25/2023 12:37 PM EST MAGNESIUM Lab STAT 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) 08/25/2023 12:37 PM EST CBC Lab STAT 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) 08/25/2023 12:37 PM EST DIFFERENTIAL, AUTOMATED Lab STAT 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) 08/25/2023 12:37 PM EST Scheduled Procedures Name Priority Associated Diagnoses Date/Ti [...] this encounter Medical Devices Implanted Type Area Sign Board Erector Device Identifier Shelf Expiration Date Model / Serial / Lot Cement Hydroset Injectable 5cc - [id number] Implanted:Qty : 1 on 03/15/2018 by Ronak Khoury [place] [facility] [place]: Head JOHN 11/09/2019 [id number] / / [id number] Stent Wallf Esoph 23/59jwl91wz - [id number] Implanted:Qty : 1 on 04/01/2023 by Karson Goddard MD [place] [facility] [place] N/A: Esophagus [employer] : ENDOSCOPY [id number] 09/09/2024 [id number] / / [id number] Power Port 8fr Sngl Lumen Plas - [id number] Implanted:Qty : 1 on 04/19/2023 by Thaddeus Brown DO at OR [facility] Right: Chest CR BARD : PERIPHERAL VASCULAR [id number] 06/14/2024 [id number] / / [id number] documented as of this encounter Visit Diagnoses [...] the patient have Health Care Power of Supervisor Uranium Processing? No Full Code 03/15/2018 8:20 AM 03/16/2018 2:36 PM This or enrique reflects the patients wishes and were consensually agreed upon. Question Answer Comments Discussion of Advance Directives occurred with: Patient Does the patient have a Living Will? No Does the patient have Health Care Power of Supervisor Uranium Processing? No Full Code 03/15/2018 6:20 AM 03/15/2018 8:20 AM This or enrique reflects the patients wishes and were consensually agreed upon.
--- OUTSIDE RECORDS SUMMARY | 2023-09-01 12:11 | External Medical Summary ---
Author Name Unknown Address Unknown Organization [facility] [place] [address] Laboratory Report Ordering Provider Test Date Status JUSTINA QUIÑONEZ 08/25/2023 12:37:24 Final Observation Date Value Abnormality Reference (Units ) Status BUN 08/25/2023 12:37:24 6 6-20 (mg/dL) Final Creatinine 08/25/2023 12:37:24 0.8 0.6-1.2 (mg/dL) Final Glomerular filtration rate/1.73 sq M.predicted [Volume Rate/Area] in Serum, Plasma or Blood by Creatinine-based formula (CKD-EPI) 08/25/2023 12:37:24 >90 >=60 (mL/min) Final eGFR is calculated based on the CKD-EPI 2020 equation SODIUM 08/25/2023 12:37:24 140 135-146 (m mol/L) Final Potassium 08/25/2023 12:37:24 4.1 3.5-5.1 (m mol/L) Final Cl 08/25/2023 12:37:24 102 98-107 (mm ol/L) Final CO2 08/25/2023 12:37:24 25 22-32 (mmo l/L) Final Anion gap 08/25/2023 12:37:24 13 7-15 (mmol /L) Final Glucose 08/25/2023 12:37:24 109 70-120 (mg /dL) Final Albumin 08/25/2023 12:37:24 3.9 3.8-5.0 (g /dL) Final AST (Aspartate aminotransferase) 08/25/2023 12:37:24 23 10-50 (U/L) Fin al Alk Phos 08/25/2023 12:37:24 178 Above high normal 35 -130 (U/L) Final Bilirubin, Total 08/25/2023 12:37:24 0.3 <=1 .2 (mg/dL) Final Calcium 08/25/2023 12:37:24 10.0 8.4-10.2 ( mg/dL) Final Protein 08/25/2023 12:37:24 7.6 6.0-8.3 (g /dL) Final ALT (Alanine aminotransferase) 08/25/2023 12:37:24 43 10-50 (U/L) Donn miller Performing Location [facility] [address] [place] [address]
--- OUTSIDE RECORDS SUMMARY | 2023-09-01 12:11 | External Medical Summary ---
Author Name Unknown Address Unknown Organization [id number]:[facility] [place] [address] Laboratory Report Ordering Provider Test Date Status JUSTINA QUIÑONEZ 08/25/2023 12:37:24 Final Observation Date Value Abnormality Reference (Units ) Status Nucleated erythrocytes/100 leukocytes [Ratio] in Blood by Automated count 08/25/2023 12:37:24 Final Schistocytes 08/25/2023 12:37:24 Few Abnormal None Seen Final Performing Location [facility] [address] [place] [id number]
--- OUTSIDE RECORDS SUMMARY | 2023-09-01 12:11 | External Medical Summary ---
Author Name Unknown Address Unknown Organization K09:[facility] [place] [address] [place] [address] Laboratory Report Ordering Provider Test Date Status JUSTINA QUIÑONEZ 08/25/2023 12:37:24 Final Observation Date Value Abnormality Reference (Units ) Status WBC, Total 08/25/2023 12:37:24 10.56 4.00-10.8 0 (K/uL) Final RBC 08/25/2023 12:37:24 3.78 4.50-5.25 (M/uL) Final Hemoglobin 08/25/2023 12:37:24 10.7 Below low normal 14 .0-16.8 (g/dL) Final HCT 08/25/2023 12:37:24 34.1 Below low normal 40. 0-48.4 (%) Final MCV 08/25/2023 12:37:24 90.2 82.0-99.5 (fL) Final MCH 08/25/2023 12:37:24 28.3 27.0-34.0 (pg) Final MCHC 08/25/2023 12:37:24 31.4 32.0-36.0 (g/dL) Final RDW 08/25/2023 12:37:24 16.4 11.5-15.5 (%) Final Platelets 08/25/2023 12:37:24 527 Above high normal 14 0-400 (K/uL) Final MPV 08/25/2023 12:37:24 9.0 6.6-11.1 ( fL) Final Performing Location [facility] [place] [address]
--- OUTSIDE RECORDS SUMMARY | 2023-09-01 12:11 | External Medical Summary | Summary of Care ---
Author Name Unknown Organization [facility] Address [address] [place] [address] Phone [phone] Care Team Providers Care Crown Blocker Name Role Phone Unavailable Primary Care Provider Unavailabl e Reason for Visit * Reason Onset Date Comments Advice 05/13/2023 Bam Encounter Details Date Type Department Care Team (Late st Contact Info) Description 05/13/2023 Telephone Hematology/Oncology [facility]OS[facility] - 06/28/23 [address] [place] [address] Cipriano Kuhn MD [address] [place] [address] Advice (Bam/) Allergies Active Allergy Reactions Criticality Noted Date Comments Carbamazepine Rash Medium 02/20/2018 documented as of this encounter (statuses as of 08/12/2023) Medications Medication Sig Dispensed Refills Start Date End Date Status Thiamine HCl 100 MG Oral Tablet (vitamin B-1) Take 1 Tablet by mouth daily. 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 30 Tablet 2 3 Active Lidocaine-Prilo irma 2.5-2.5 % External Cream (Emla)Indicatio ns:Malignant neoplasm of lower third of esophagus (HCC) APPLY TO SKIN OVER MEDIPORT & COVER 1HR PRIOR TO ACCESSING. 30 g 1 3 Active Dexamethasone 4 MG Oral Tablet (Decadron)Indic ations:Malignan t neoplasm of lower third of esophagus (HCC) Take 8mg twice a day x3 days starting the day before chemotherapy 48 Tablet 0 3 Active Vitamin B-12 1000 MCG Oral Tablet (Cyanocobalamin )Indications:Ma lignant neoplasm of lower third of esophagus (HCC) Take 1 Tablet by mouth in the morning. 30 Tablet 5 3 Active Acetaminophen 160 MG/5ML Oral Liquid (Tylenol)Indica tions:Malignant neoplasm of lower third of esophagus (HCC) Take 20.3 mL by mouth every 4 hours as needed for Pain, Breakthrough. 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 30 Tablet 0 3 Active omeprazole (PriLOSEC) 2 mg/mL oral suspension Take 10 mL by mouth in the morning. 300 mL 0 3 08/05/20 23 Discontinued Pantoprazole Sodium 40 MG Oral Tablet Delayed Release (Protonix)Indic ations:Malignan t neoplasm of cardia of stomach (HCC) Take 1 Tablet by mouth in the morning and 1 Tablet before bedtime. 30 Tablet 3 3 06/09/20 23 Discontinued chlorproMAZINE HCl 25 MG Oral Tablet (Thorazine)Vannesa cations:Maligna nt neoplasm of cardia of stomach (HCC) Take 1 Tablet by mouth every 6 hours as needed for Nausea or Other (hiccups). 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 42 mL 0 3 06/06/20 Discontinued(Ref ill) documented as of this encounter (statuses as [...] you have serious difficulty h earing? No 03/31/2023 Are you blind or do you have serious difficulty seeing, even when wearing glasses? No 03/31/2023 Do you have serious difficul ty walking or climbing stairs? (5 years old or older) No 04/01/2023 Do you have difficulty dress ing or bathing? (5 years old or older) No 03/31/2023 Because of a physical, menta l, or emotional condition, do you have difficulty doing errands alone such as visiting a doctor s office or shopping? (15 years old or older) No 03/31/20 Cognitive Status Response Date of Assessm ent Because of a physical, menta l, or emotional condition, do you have serious difficulty concentrating, remembering, or making decisions? (5 years old or older) No 03/31/2023 documented as of this encounter Miscellaneous Notes * Telephone Encounter - Fide Contreras OSA - 05/13/2023 11:54 AM EDT What is the reason for call? PT's has some concerns since his chemo he had last . She states that he has been feeling very weak, nauseous, vomiting, and has been having diarrhea. She states that he can't really eat or drink anything, but that he has started to drink Pedialyte. What Clinic is the patient trying to reach? [facility]- Is the clinic open? Yes- Other: transfer to specialty Caller: other: PT's Return Phone #: [phone] Call was warm transferred to [facility] documented in this encounter Plan of Treatment Upcoming Encounters Date Type Department Care Team (Late st Contact Info) Description 08/17/2023 3:20 PM EST [facility] [address] [place] [address] Praveen Edmonds MD [address] [place] [address] 09/13/2023 8:45 AM EST Office Visit Hematology/Oncology [facility] [address] [facility] [place] [address] Cipriano Kuhn MD [address] [place] [address] 09/13/2023 9:15 AM EST Immunization/Injection Hematology/Oncology Treatment, [place] [address] [place] [address] Nurse, Med [address] [facility] [place] [address] Scheduled Procedures Name Priority Associated Diagnoses Date/Ti [...] this encounter Medical Devices Implanted Type Area Production Painter Device Identifier Shelf Expiration Date Model / Serial / Lot Cement Hydroset Injectable 5cc - [id number] Implanted:Qty : 1 on 03/15/2018 by Ronak Khoury MD at OR [facility] [place] [facility] Left: Head JOHN 11/09/2019 [id number] / / [id number] Stent Wallf Esoph [id number] - [id number] Implanted:Qty : 1 on 04/01/2023 by Karson Goddard MD at ENDOSCOPY [facility] [place] [facility] N/A: Esophagus [employer] : ENDOSCOPY [id number] 09/09/2024 [id number] / / [id number] Power Port 8fr Sngl Lumen Plas - [id number] Implanted:Qty : 1 on 04/19/2023 by Thaddeus Brown DO at OR [facility] Right: Chest CR BARD : PERIPHERAL VASCULAR [id number] 06/14/2024 [id number] / / [id number] documented as of this encounter Advance Directives [...] the patient have Health Care Power of Knock Up Assembler? No Full Code 03/15/2018 8:20 AM 03/16/2018 2:36 PM This or enrique reflects the patients wishes and were consensually agreed upon. Question Answer Comments Discussion of Advance Directives occurred with: Patient Does the patient have a Living Will? No Does the patient have Health Care Power of Knock Up Assembler? No Full Code 03/15/2018 6:20 AM 03/15/2018 8:20 AM This or enrique reflects the patients wishes and were consensually agreed upon.
--- OUTSIDE RECORDS SUMMARY | 2023-09-01 12:12 | External Medical Summary ---
Author Name Unknown Address Unknown Organization K01:[facility] [address] [facility] [address] Laboratory Report Ordering Provider Test Date Status MARV NESS 08/05/2023 07:28:00 Final Observation Date Value Abnormality Reference (Units ) Status WBC, Total 08/05/2023 07:28:00 10.57 4.00-10.80 (K/uL) Final RBC 08/05/2023 07:28:00 3.08 4.50-5.25 (M/uL) Final Hemoglobin 08/05/2023 07:28:00 8.9 Below low normal 14.0-16.8 (g/dL) Final HCT 08/05/2023 07:28:00 26.7 Below low normal 40.0-48.4 (%) Final MCV 08/05/2023 07:28:00 86.7 82.0-99.5 (fL) Final MCH 08/05/2023 07:28:00 28.9 27.0-34.0 (pg) Final MCHC 08/05/2023 07:28:00 33.3 32.0-36.0 (g/dL) Final RDW 08/05/2023 07:28:00 19.7 11.5-15.5 (%) Final Platelets 08/05/2023 07:28:00 232 140-400 (K/uL) Final MPV 08/05/2023 07:28:00 9.8 6.6-11.1 (fL) Final Nucleated erythrocytes/100 leukocytes [Ratio] in Blood by Automated count 08/05/2023 07:28:00 0 <=0 (/100 WBCs) Final Performing Location [facility] - [address] [facility] [address]
--- OUTSIDE RECORDS SUMMARY | 2023-09-01 12:12 | External Medical Summary | Summary of Care ---
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] Procedures REMOVE STOMACH, TOTAL TUBE JEJUNOSTOMY FOR FEEDING GASTRECTOMY TOTAL WITH ESOPHAGOENTEROSTOMY NEEDLE CATHETER OR TUBE JEJUNOSTOMY FOR ALIMENTATION Referral ID Status Reason Start Date Expiration Date Visits Re quested Visits Authorized [id number] Encounter Details Date Type Department Care Team (Latest Contact Info) Description 08/02/2023 11:10 AM EST - 08/08/2023 10:04 AM EST Hospital Encounter [id number] [address] [place] [address] Praveen Edmonds MD [address] [place] [address] Pt Handout (on AVS) Discharge Disposition: Home - Self Care Allergies Active Allergy Reactions Criticality Noted Date Comments Carbamazepine Rash Medium 02/20/2018 documented as of this encounter (statuses as of 08/08/2023) Medications Medication Sig Dispensed Refills Start Date End Date Status Thiamine HCl 100 MG Oral Tablet (vitamin B-1) Take 1 Tablet by mouth daily. 0 Active Prochlorperazin e Maleate 10 MG Oral Tablet (Compazine)Vanensa cations:Maligna nt neoplasm of lower third of [...] or Sleep. 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 30 Tablet 2 3 Active Enoxaparin Sodium 40 MG/0.4ML Injection Solution Prefilled Syringe (Lovenox) Inject 40 mg under the skin in the morning. 11.2 mL 0 3 Active oxyCODONE HCl 5 MG Oral Tablet (Oxy IR) Take 1 Tablet by mouth every 4 hours as needed for Pain, Severe. 12 Tablet 0 3 Active omeprazole (PriLOSEC) 2 mg/mL oral suspension Take 10 mL by mouth in the morning. 300 mL 0 3 08/05/20 23 Discontinued chlorproMAZINE HCl 25 MG Oral Tablet (Thorazine)Vannesa cations:Maligna nt neoplasm of cardia of stomach (HCC) Take 1 Tablet by mouth every 6 hours as needed for Nausea or Other (hiccups). 30 Tablet 3 3 08/05/20 23 Discontinued Pantoprazole Sodium 40 MG Oral Tablet Delayed Release (Protonix)Indic ations:Malignan t neoplasm of cardia of stomach (HCC) TAKE ONE TABLET BY MOUTH TWICE DAILY 60 Tablet 4 3 08/05/20 23 Discontinued Enoxaparin Sodium 40 MG/0.4ML Injection Solution Prefilled Syringe (Lovenox) Inject 40 mg (one full syringe) under the skin in the morning for 28 days. 11.2 mL 0 3 08/07/20 23 Discontinued(Ref ill) oxyCODONE HCl 5 MG Oral Tablet (Oxy IR) Take 1 Tablet by mouth every 4 hours as needed for severe pain 12 Tablet 0 3 08/07/20 23 Discontinued(Ref ill) documented as of this encounter (statuses as of 08/08/2023) Active Problems Problem Noted Date Diagnosed Date Hypokalemia 08/05/2023 Hyponatremia 08/04/2023 Hypophosphatemia 08/04/2023 Vitamin D insufficiency 08/04/2023 Iron deficiency anemia 08/04/2023 On peripheral parenteral nutrition (ppn) 023 Unintentional weight loss 08/03/2023 Status post total gastrectom y and Trevin-en-Y esophagojejunal anastomosis 08/03/2023 Hypomagnesemia 08/03/2023 Malignant neoplasm [...] as of this encounter (statuses as of 08/08/2023) Immunizations Name Administration Dates Next Due TDAP [...] Sign Reading Time Taken Comments Blood Pressure 128/86 08/08/2023 7:42 AM EST Pulse 71 08/08/2023 7:42 AM EST Temperature 36.6 C (97.8 F) 08/08/2023 7:42 AM ES T Respiratory Rate 16 08/08/2023 7:42 AM EST Oxygen Saturation 100% 08/08/2023 7:42 AM EST Inhaled Oxygen Concentration - - Weight 64.4 kg (142 lb) 08/02/2023 6:46 PM EST Height 180.3 cm (5' 11") 08/02/2023 6:46 PM EST Body Mass Index 19.8 08/02/2023 6:46 PM EST documented in this encounter Functional Status Functional [...] No 08/02/2023 documented as of this encounter Discharge Summaries * Shanna Donohue MD - 08/08/2023 7:59 AM EST [address] [address] Admission Date: 08/02/2023 Discharge Date: 08/08/2023 DISCHARGE DIAGNOSES: Active Hospital Problems Diagnosis *Principal Diagnosis - 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 Hypokalemia Hyponatremia Hypophosphatemia Vitamin D insufficiency Iron deficiency anemia On peripheral parenteral nutrition (ppn) Unintentional weight loss Hypomagnesemia Malignant neoplasm of stomach (HCC) Malnutrition of moderate degree (HCC) Resolved Hospital Problems No resolved problems to display. Other Significant Diagnoses: none CONDITION ON DISCHARGE: stable Cognition: normal DISPOSITION ON DISCHARGE: home FOLLOW-UP: Future Appointments Appt Date/Time Provider Department 08/17/2023 3:20 PM [facility] 8:45 AM Cipriano Kuhn MD Hematology/Oncology [facility] 09/13/2023 9:15 AM NurseCal Hematology/Oncology [facility] Outpatient testing already scheduled: none Outpatient testing that needs to be arranged: none Inpatient test results pending: none MEDICATIONS ON DISCHARGE: MEDICATION UPDATES AT DISCHARGE START taking these medications INSTRUCTIONS Enoxaparin 40 MG/0.4ML injection Commonly known as: Lovenox Inject 40 mg under the skin in the morning. oxyCODONE 5 MG immediate release tablet Commonly known as: Oxy IR Take 1 Tablet by mouth every 4 hours as needed for Pain, Severe. CONTINUE taking these medications INSTRUCTIONS Acetaminophen 160 MG/5ML oral liquid Commonly known as: Tylenol Take 20.3 mL by mouth every 4 hours as needed for Pain, Breakthrough. dexAMETHasone 4 MG Tabs Tablet Commonly known as: Decadron Take 8mg twice a day x3 days starting the day before chemotherapy Lidocaine-Prilocaine 2.5-2.5 % cream Commonly known as: Emla APPLY TO SKIN OVER MEDIPORT & COVER 1HR PRIOR TO ACCESSING. LORAzepam 0.5 MG Tablet Commonly known as: Ativan Take 1 Tablet by mouth every 6 hours as needed for Anxiety or Sleep. morphine Sulfate CONCentrated 20 mg/ml concentrated solution Take 0.25 mL by mouth every 4 hours as needed for Pain, Moderate. ondansetron 8 MG Tablet Commonly known as: Zofran Take 1 Tablet by mouth every 8 hours as needed for Nausea. prochlorperazine 10 MG Tablet Commonly known as: Compazine Take 1 Tablet by mouth every 6 hours as needed for Nausea. THIAMINE 100 MG Tablet Commonly known as: vitamin B-1 Take 1 Tablet by mouth daily. Vitamin B-12 1000 MCG Tablet Commonly known as: Cyanocobalamin Take 1 Tablet by mouth in the morning. 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 Follow up PET scan on 06/07/23 shows decreased PET avidity of the tumor. He will obtain another PET scan today. He currently does have a stent in place (placed on 04/01/23) and on recent imaging, has migrated proximally. His last EGD was on 06/20 and his esophageal stent has been removed. He says that since the stent has been removed, he has been able to eat better and has gained 10 lbsof weight since. Furthermore, he denies nausea, vomiting, and regurgitation. He does not have any abdominal pain. No hematochezia, melena, diarrhea currently. Further denies headaches, numbness, tingling, chest pain, shortness of breath, dysuria, hematuria, LE edema. 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 He was taken to the operating room on 08/02/23 and underwent total gastrectomy with Trevin y esophago-jejunostomy under general anesthesia, which was completed without complications. Postoperatively, his course was uncomplicated. His pain was well controlled with pain medications, although he did experience some nausea which was treated with medications. PPN was administered to meet his nutritional needs until his diet was safely advanced. By the time of discharge on 08/08, Parish's pain was well tolerated, he tolerated a full liquid diet, he did not experience nausea or committing, ambulated independently, and he voided and had bowelmovements. Operations & Procedures: Total gastrectomy with Trevin y esophago-jejunostomy under general endotracheal anesthesia. Complications: none significant SIGNIFICANT RESULTS: Vital Signs (last recorded): Most Recent Systolic BP: 128 mmHg (08/08/23 0742) Most Recent Diastolic BP: 86 mmHg (08/08/23 0742) Pulse: 71 (08/08/23 07) Resp: 16 (08/08/23741) Most Recent Temperature: 36.56 C (08/08/23741) Weight: 64.4 kg (142 lb) (08/02/23 1846) SpO2: 100 % (08/08/23741) O2 flow rate: 0 L/MIN (08/08/23741) Labs: Lab results within last 7 days (see chart for full results) Units 08/07/23 0634 08/06/23 0643 08/05/23 0728 08/04/23 0728 08/03/23 0701 WBC K/uL 10.71 11.26* 10.57 10.85* 12.25* HGB g/dL 9.7* 9.9* 8.9* 9.0* 9.6* PLT K/uL 304 281 232 218 228 Lab results within last 7 days (see chart for full results) Units 08/07/23 0634 08/06/23 0643 08/05/23 0728 08/04/23 0728 08/03/23 0701 Sodium mmol/L 131* 135 135 134* 136 Potassium mmol/L 4.5 3.9 3.4* 4.0 4.0 Chloride mmol/L 99 100 102 102 101 CO2 mmol/L 24 BUN mg/dL 16 15 11 11 14 Creatinine mg/dL 0.5* 0.4* 0.5* 0.5* 0.6 Glucose mg/dL 117 126* 130* 159* 101 Calcium mg/dL 9.6 9.5 9.5 8.8 8.7 Magnesium mg/dL 1.8 1.9 1.5 1.8 1.9 Phosphorus mg/dL 3.9 3.7 3.0 2.4* 4.7 Imaging (focused): PET CT SKULL BASE TO MID-THIGH - 04/08/2023 1:26 pm IMPRESSION 1. Known stented hypermetabolic gastroesophageal cancer. 2. Few adjacent lymph nodes may be reactive or local metastasis, to include a right paracardial lymph node better seen on the comparison contrast-enhanced diagnostic CT. Characterization of metabolism on this exam is limited secondary to the described dose infiltration. 3. No convincing FDG PET/CT evidence of distant metastatic disease. PET CT SKULL BASE TO MID-THIGH - 06/07/2023 4:22 pm IMPRESSION 1. Proximal migration of gastroesophageal stent now contained within the lower esophagus. 2. Decreased bulk and metabolism of gastroesophageal and gastric cardia wall thickening. 3. Unchanged adjacent subcentimeter lymph nodes without significant metabolism, a reassuring finding. 4. No new hypermetabolic disease. CONSULTS ORDERED: ADULT PHYSICAL THERAPY CONSULT IP ADULT OCCUPATIONAL THERAPY CONSULT IP PARENTERAL NUTRITION SUPPORT (ADULT) CONSULT IP REFERRING PHYSICIAN: Ref: [id number]] NO STREET ADDRESS AVAILABLE None (office) None (fax) PRIMARY CARE PROVIDER: PCP: No primary care provider on file. No primary physician on file. None (office) None (fax) Note: To contact a physician responsible for this patients hospital care, please call [facility] [phone]. documented in this encounter Discharge Instructions * Discharge Instr - AVS* Shanna Donohue MD - 08/02/2023 11:14 AM EST Images from the original note were not included. Discharge Date: 08/08/2023 Check your Patient Education Brochure for further information. You may call Dr. Edmonds of the department of Surgical Oncology at [phone] during business hours for any questions or test results. For after- hours emergencies, call [phone] and have theprovider hotel casino floorperson paged. The information below provides you with the instructions and the list of medications you need to betaking following discharge from the hospital. If you have any questions, please ask before leaving.Please carry this letter with you when you see your doctor in the clinic. If you have questions, you can reach us at the numbers above. Brief summary of your inpatient care: You were admitted to [facility] on 08/02/2023 for surgery. You tolerated the operation well, had adequate pain control, and tolerated a diet beforedischarge. Your primary diagnosis at discharge was Siewert IIII gastric cancer. Please follow these instructions carefully: Activity: As tolerated. No lifting greater than 10 pounds for 6 weeks. Getting up and walking after surgery aids recovery in many ways. Much of the pain after major surgery is from muscle spasm. Getting out of bed, sitting and walking help you loosen up and actually reduce your pain. This also helps your breathing and quickens the recovery of your bowel function. Walking and using the stairs is permitted. You should try to get lots of rest. No deep bending and stretching. You should avoid full activity and vigorous exercise for about six to eight weeks after surgery. You may climb stairs. No driving until seen for follow-up appointment or while taking prescription pain medication. Diet: Full Liquid Diet - you will have a follow up phone call with Dr. Edmonds on 08/11 to discuss advancing to a regular diet Pain Control: Take medication as prescribed. Incisions: DERMABOND surgical adhesive covers your incision. This will begin to fall off in about 2 weeks. Do not pick at the wound. Do not apply any ointment or lotion to the incision. Wash incisions with soap and water and keep dry. You may shower but avoid tub bathing/swimming for 7 days. Constipation: It is normal not to have a bowel movement for up to 3 days after surgery due to anesthesia. To prevent constipation, drink plenty of liquids and eat plenty of fiber which includes fruits & vegetables. After surgery, start taking Milk of Magnesia (over the counter) 2 tablespoons at bedtime followed by a full glass of liquid. Once you have a bowel movement, stop taking the Milk of Magnesia. Follow Up Appointment: You will have a follow up telephone visit with Dr. Edmonds on 08/11. You will receive a call to set up this visit. Future Appointments Appt Date/Time Provider Department 08/17/2023 3:20 PM Praveen Edmonds MD General Surgery, [place] 09/13/2023 8:45 AM Cipriano Kuhn MD Hematology/Oncology [facility] 09/13/2023 9:15 AM NurseCal [facility] the [facility] with any of the following symptoms: Fever higher than 101 degrees Fahrenheit. Severe pain not relieved by pain medication. Inability to void. Excessive bleeding, swelling, redness, or drainage from any of the incisions. Additional instruction: - You are being discharged with Lovenox for deep vein thrombosis prophylaxis. 1) Tell dentists, surgeons, and other healthcare providers that you use this drug. 2) You may bleed more easily. Avoid injury. Use soft toothbrush, electric razor. 3) Call General Surgery or your primary care physician right away if you have unusual bruising or bleeding 4) The pharmacist at [facility] will follow up with you 5) Start Lovenox tomorrow. Date you may return to work or school: Based on further instruction reviewed by surgeon after follow up visit. Inpatient test results pending: None Operations & Procedures: Total gastrectomy with Trevin y esophago-jejunostomy Complications: none Advance Directive Documented: Advance Directive Does the Patient have an Advance Directive? No Full Liquid Diet A full liquid diet is a middle step between a clear liquid diet and eating solid foods. A clear liquid diet allows only liquids you can see through. A full liquid diet allows thicker liquid foods, aslisted below. It can be anything that is liquid at room temperature. The full liquid diet may be used before or after surgery. Or it may be used if you have a digestive illness. It's also used beforesome medical tests. It's easy to digest and leaves little food in the stomach and intestines. A full liquid diet meets calorie and protein needs for your body with liquids only. If it's to be used for more than 5 days, your healthcare provider or dietitian may also order high-protein, high-calorie liquid supplements. These will give you extra vitamins and minerals. You may include the itemsbelow on a full liquid diet. Adults Adults should drink a total of 2 to 3 quarts of liquid per day. It may be easier to drink small frequent servings rather than a few large ones. People with severe kidney or heart disease may need to limit the amount of fluid they take in. Check with your provider. Cereals and soups. Creamy hot breakfast cereals (wheat or rice) thinned with milk, pureed soups (including pureed meats, bland vegetables, and white potatoes), tomato puree. Desserts. Gelatin, whipped topping, custard-style yogurt, pudding, custard, plain ice cream, sherbet, sorbet, frozen fruit juice bars. Drinks. Coffee, tea, cream, milk, milkshakes, fruit and vegetable juices, sodas, mineral water (plain or flavored), liquid gelatin, electrolyte replacement sports drinks. Other items. Salt, mild-flavored seasonings, chocolate flavoring, gravy, margarine, sugar, syrup, jelly, honey, hard candy (to suck on). documented in this encounter Progress Notes * Caroline Claire Marshal, [facility] - 08/05/2023 10:55 AM EST PHARMACY MEDICATION TEACHING CONSULT ENOXAPARIN [address] [address] Name: Parish Yoder [place] [facility] Date: 08/05/2023 Time: 10:55 AM Requesting Service: General Surgery Reason for Enoxaparin Consult: Venous Thromboembolism Prophylaxis (VTE) Patient Active Problem List Diagnosis Code Degeneration of cervical intervertebral disc M50.30 Trigeminal neuralgia G50.0 Esophageal dysphagia R13.19 Esophageal mass K22.89 Malnutrition of moderate degree (HCC) E44.0 Esophageal obstruction K22.2 Iron deficiency anemia due to chronic blood loss D50.0 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 Teaching points covered with patient and/or family: Route, Dosage Form and Schedule (Including importance of taking medication as instructed),, Medication Intended Use/Action, Injection technique,, Precautions to be Observed while using this Medication,, Commonly Encountered Adverse Effects (Including risk of bleeding and potential signs and symptoms),, Methods for Self-monitoring,, Potential Drug Interactions (Including medications that potentially affect bleeding, alcohol and vjaw-ywx-kzlyzjfzfxtszphvqj such as NSAIDs),, Therapeutic Contraindications,, Designated Handout(s) Provided,, Follow-up Monitoring (Including review of plans for post-discharge monitoring and follow-up),, Prescription Refill Information,, and Action for a Missed Dose, Written documentation regarding all of the teaching points was provided to the patient and/or family members present. Patient accepted patient education handout. Assessment of teaching effectiveness: The patient states that his will be administering the injections and denied a review of the injection technique. We discussed information about the medication and all questions were answered. Patient has expressed potential cost/home health concerns and Care Management has been made aware: No Plan if patient encounters questions later: Contact Anticoagulation Clinic at [phone] or Length of teaching: Intermediate (15 to 30 minutes) Teaching completed according to pharmacy teaching standard 508 * Vy Martin MD - 08/05/2023 8:50 AM EST PROGRESS NOTE - Nutrition Support [facility] [address] Name: Parish Yoder [place] [facility] Date: 08/05/2023 Time: 8:50 AM HPI: Parish Yoder is a 58 year old male with a past medical history significant for Siewert III gastric cancer now s/p total gastrectomy with Trevin-en-Y esophagojejunostomy by Dr. Edmonds on 08/02/23 who is seen at the request of General surgery for evaluation and treatment of protein calorie malnutrition and initiation of parenteral nutrition. Patient is strict NPO. Of note, patient has had 13% weight loss from 03/2023-06/2023 and has gained about 5 kg since 06/2023 and was drinking protein shakes at home. SUBJECTIVE: Patient seen and examined at bedside. RAJ. On PPN. Complains of nausea, improved withantiemetics. CURRENT NUTRITION SUPPORT: PPN: 08/03 - current PHYSICAL EXAM: Most Recent Vital Signs: BP: 145 mmHg/87 mmHg (08/05/2310) Pulse: 93 (08/05/2310) Temp: 37 C (08/05/2310) Resp: 16 (08/05/23709) SpO2: 98 % (08/05/23709) Vital Signs Last 24 Hours: Systolic BP: Most Recent Systolic BP Av.2 mmHg Min: 134 mmHg Max: 156 mmHg Temperature: Most Recent Temperature Av.3 C Min: 37 C Max: 37.72 C Pulse: Pulse Av.2 Min: 87 Max: 99 Respirations: Resp Av Min: 16 Max: 18 SpO2: SpO2 Av.2 % Min: 97 % Max: 99 % I/O: Intake/Output Summary (Last 24 hours) at 08/05/2023 0850 Last data filed at 08/05/2023 0335 Gross per 24 hour Intake 200 ml Output 3175 ml Net -2975 ml Constitutional: no acute distress CV: normal rate Chest: normal respiratory effort Abdomen: soft, tenderness, midline incision clean, dry and intact LABS: Labs reviewed as indicated below: 08/05/23 07:28 Sodium 135 Potassium 3.4 (L) Chloride 102 CO2 22 BUN 11 Creatinine 0.5 (L) Estimated Glomerular Filtration Rate >90 Anion Gap 11 Glucose 130 (H) Calcium 9.5 Magnesium 1.5 Phosphorus 3.0 (L): Data is abnormally low (H): Data is abnormally high IMPRESSION and PLAN: Parish Yoder is a pleasant 58 year old male who has been assessed by the nutrition support team for the evaluation of protein calorie malnutrition. RECOMMENDATIONS: Recommended nutritional support: TPN As per A.S.P.E.N. guidelines: Parenteral Nutrition is indicated due to: Enteral nutrition is not feasible. #Nutrition Support #Unintentional weight loss Patient is appropriate for parenteral nutrition No central access in place, continue PPN 2L total volume, 5/5/3 split Electrolytes: Sodium 40 mEq/L Potassium 30 mEq/L, increase to 50 mEq/L Calcium 4 mEq/L Phosphate 14 mmol/L +MVI, +tralement Stop all standing continuous IVF once PPN is started Please obtain central access so that we may transition to TPN with goal macro nutrients of 1960kcalcomprised of 96g amino acids, 292g dextrose and 58g lipids Ensure BMP, Mag and phos are ordered at least twice daily while on parenteral nutrition, pt at high-risk to re-feed Triglycerides 58 yesterday, please obtain weekly thereafter with next check on 08/10 Obtain ionized calcium if evidence of hypocalcemia on BMP Maintain accurate intake and output Weights qAM Please advance diet as tolerated and as appropriate Continue on high dose thiamine Given one time B12 injection this admission Labs ordered: vitamin A, vitamin D, vitamin E, vitamin K, vitamin B1, folate, vitamin B12, copper, zinc, iron panel, ferritin Labs pending: vitamin A, vitamin E, vitamin K, vitamin B1, copper, zinc #Hypomagnesemia Unable to place magnesium in the PPN, continue to bolus as needed for a goal level >2 #Hypokalemia Continue to monitor and make changes to parenteral nutrition as above #Vitamin D insufficiency Level of 24, checked 07/2023 Recommend to start Vitamin D 5,000iU daily when diet advanced #Iron deficiency anemia Ferritin level of 185, checked 07/2023 Consider rechecking iron panel and ferritin and starting iron supplementation as needed as outpatient #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 We will follow the patient along with you. Patient's care, including parenteral nutrition, was discussed today with the pharmacist, clinical nutrition, nutrition and weightmanagement staff. The recommendations noted above are a result of this discussion. The patient was discussed with Dr. Klein. Vy Martin MD Associated attestation - Dimas Klein MD - 08/05/2023 3:32 PM EST I saw and evaluated the patient today. I have reviewed the trainee note and agree. - Continue PPN, 2L total volume, 5|5|3 split - Minor changes made to TPN formulation to address hypokalemia - 4g IV mag sulfate given Dimas Klein MD Nutrition and Weight Management * Vy Martin MD - 08/04/2023 10:00 AM EST PROGRESS NOTE - Nutrition Support [address] [address] Name: Parish Yoder [place] [facility] Date: 08/04/2023 Time: 4:14 PM HPI: Parish Yoder is a 58 year old male with a past medical history significant for Siewert III gastric cancer now s/p total gastrectomy with Trevin-en-Y esophagojejunostomy by Dr. Edmonds on 08/02/23 who is seen at the request of General surgery for evaluation and treatment of protein calorie malnutrition and initiation of parenteral nutrition. Patient is strict NPO. Of note, patient has had 13% weight loss from 03/2023-06/2023 and has gained about 5 kg since 06/2023 and was drinking protein shakes at home. SUBJECTIVE: NAEON. On PPN. CURRENT NUTRITION SUPPORT: PPN: 08/03 - current PHYSICAL EXAM: Most Recent Vital Signs: BP: 144 mmHg/90 mmHg (08/04/23 1555) Pulse: 99 (08/04/23 1555) Temp: 37.72 C (08/04/23 1555) Resp: 18 (08/04/23 1555) SpO2: 99 % (08/04/23 1555) Vital Signs Last 24 Hours: Systolic BP: Most Recent Systolic BP Av.2 mmHg Min: 107 mmHg Max: 156 mmHg Temperature: Most Recent Temperature Av C Min: 36.56 C Max: 37.72 C Pulse: Pulse Av.3 Min: 91 Max: 99 Respirations: Resp Av.2 Min: 16 Max: 18 SpO2: SpO2 Av.2 % Min: 94 % Max: 99 % I/O: Intake/Output Summary (Last 24 hours) at 08/04/2023 1614 Last data filed at 08/04/2023 1400 Gross per 24 hour Intake -- Output 1950 ml Net -1950 ml Constitutional: no acute distress CV: normal rate Chest: normal respiratory effort Abdomen: soft, tenderness, midline incision clean, dry and intact LABS: Labs reviewed as indicated below: 08/04/23 07:28 Sodium 134 (L) Potassium 4.0 Chloride 102 CO2 23 BUN 11 Creatinine 0.5 (L) Estimated Glomerular Filtration Rate >90 Anion Gap 9 Glucose 159 (H) Calcium 8.8 Magnesium 1.8 Phosphorus 2.4 (L) (L): Data is abnormally low (H): Data is abnormally high IMPRESSION and PLAN: Parish Yoder is a pleasant 58 year old male who has been assessed by the nutrition support team for the evaluation of protein calorie malnutrition. RECOMMENDATIONS: Recommended nutritional support: TPN As per A.S.P.E.N. guidelines: Parenteral Nutrition is indicated due to: Enteral nutrition is not feasible. #Nutrition Support #Unintentional weight loss Patient is appropriate for parenteral nutrition No central access in place, continue PPN 2L total volume, // split Electrolytes: Sodium 40 mEq/L Potassium 30 mEq/L Calcium 4 mEq/L Phosphate 10 mmol/L, increase to 14 mmol/L +MVI, +tralement Stop all standing continuous IVF once PPN is started Please obtain central access so that we may transition to TPN with goal macro nutrients of 1960kcalcomprised of 96g amino acids, 292g dextrose and 58g lipids Ensure BMP, Mag and phos are ordered at least twice daily while on parenteral nutrition, pt at high-risk to re-feed Triglycerides 58 yesterday, please obtain weekly thereafter with next check on 08/10 Obtain ionized calcium if evidence of hypocalcemia on BMP Maintain accurate intake and output Weights qAM Please advance diet as tolerated and as appropriate Continue on high dose thiamine Give one time B12 injection today Labs ordered: vitamin A, vitamin D, vitamin E, vitamin K, vitamin B1, folate, vitamin B12, copper, zinc, iron panel, ferritin Labs pending: vitamin A, vitamin E, vitamin K, vitamin B1, folate, copper, zinc #Hyponatremia Continue to monitor and make changes to parenteral nutrition as needed #Hypomagnesemia Unable to place magnesium in the PPN, continue to bolus as needed for a goal level >2 #Hypophosphatemia #Risk of Refeeding Syndrome Will make changes to PPN formulation as above Ensure BMP, Mg, and phos are ordered at least twice daily while on parenteral nutrition, pt at high-risk to re-feed #Vitamin D insufficiency Level of 24, checked 07/2023 Recommend to start Vitamin D 5,000iU daily when diet advanced #Iron deficiency anemia Ferritin level of 185, checked 07/2023 Consider rechecking iron panel and ferritin and starting iron supplementation as needed as outpatient #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 We will follow the patient along with you. Patient's care, including parenteral nutrition, was discussed today with the pharmacist, clinical nutrition, nutrition and weightmanagement staff. The recommendations noted above are a result of this discussion. The patient was discussed with Dr. Coffey. Vy Martin MD Associated attestation - Summer Coffey MD - 08/04/2023 6:30 PM EST I have discussed the patient's management with the medical trainee and agree with the note. Please refer to the documented findings and plan of care. This patient's visit today consisted of an evaluation. I was present and confirmed the findings of the history and exam. Continue to monitor for refeeding and repleting labs prn. Increase PO4 in TPN today. Summer Coffey MD documented in this encounter H&P Notes * Beth Topete MD - 08/02/2023 12:09 PM EST HISTORY & PHYSICAL INTERVAL NOTE - General Surgery [facility] [address] History and Physical Update: Name: Parish Yoder Location[place] [facility] Date: 08/02/2023 Time: 12:10 PM DATE OF HISTORY AND PHYSICAL: 08/02/2023 BP: 126 mmHg/89 mmHg (08/02/23 1130) Pulse: 74 (08/02/23 1130) Temp: 36.39 C (08/02/23 1130) Resp: 13 (08/02/23 1130) SpO2: 100 % (08/02/23 1130) Does patient take a beta jessica? No Did patient stop anticoagulants: None Heart Exam: regular rate and rhythm, no murmurs or gallops, palpable peripheral pulses Lung Exam: clear to auscultation bilaterally Other Pertinent Physical Exam: Port located R chest This patient has undergone a preprocedural evaluation. A determination has been made to proceed with the planned procedure under [facility] procedural guidelines and the [facility] Non-Emergent, Elective Medical Services and Treatment Recommendations (published on 11-20-19). The community and hospital prevalence of COVID-19 has been discussed as well as this patient's specific risks associated with SARS-CoV-19 infection. Based upon the clinical acuity and patient-specific care considerations, this procedure is deemed a Tier II - Intermediate acuity treatment or service with either progression or the threat of progressive disease related to the delay in treatment. Not providing the service has the potential for increasing morbidity or mortality. I have reviewed the H&P previously performed and examined the patient today. There are no new findings noted. 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 Follow up PET scan on 06/07/23 shows decreased PET avidity of the tumor. He will obtain another PET scan today. He currently does have a stent in place (placed on 04/01/23) and on recent imaging, has migrated proximally. His last EGD was on 06/20 and his esophageal stent has been removed. He says that since the stent has been removed, he has been able to eat better and has gained 10 lbsof weight since. Furthermore, he denies nausea, vomiting, and regurgitation. He does not have any abdominal pain. No hematochezia, melena, diarrhea currently. Further denies headaches, numbness, tingling, chest pain, shortness of breath, dysuria, hematuria, LE edema. 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 Need for hepatitis C screening test 04/19/2014 Hepatitis C negative Trigeminal neuralgia of left side of face 12/14/2017 Past Surgical History Past Surgical History: Procedure Laterality Date COLONOSCOPY, DIAGNOSTIC (RECTUM) 03/30/2023 COLONOSCOPY FLEXIBLE PROXIMAL DIAGNOSTIC performed by Homar Blair MD at ENDOSCOPY [facility] EGD, FLEXIBLE, DIAGNOSTIC 03/30/2023 ESOPHAGOGASTRODUODENOSCOPY (EGD), FLEXIBLE, TRANSORAL, DIAGNOSTIC performed by Homar Blair MD at ENDOSCOPY [facility] EGD, W/ENDOSCOPIC US N/A 04/01/2023 ESOPHAGOGASTRODUODENOSCOPY (EGD), FLEXIBLE, TRANSORAL, ENDOSCOPIC ULTRASOUND performed by Karson Greco MD at [place] [facility] EXPLORE/DECOMPRESS CRANIAL NERVES Left 03/15/2018 CRANIECTOMY SUBOCCIPITAL EXPLORATION CRANIAL NERVES performed by Ronak Khoury MD at [place] [facility] INSER TUNN ACC DEV;5 YRS/OLDER Right 04/19/2023 INSERT TUNNELED CENTRAL VENOUS ACCESS WITH SUBQ PORT performed by Thaddeus Brown DO at OR [facility] MICROSURGERY ADD-ON Left 03/15/2018 MICROSURGICAL SURGERY REQUIRING MICROSCOPE LISTED SEPARATELY performed by Ronak Khoury MD at [place] [facility] SPINAL FLUID TAP FOR DRAINAGE Left 03/15/2018 SPINAL PUNCTURE DRAINAGE CSF performed by Ronak Khoury MD at [place] [facility] Current Medications Current Outpatient Medications Medication Sig Dispense Refill Thiamine HCl 100 MG Oral Tablet (vitamin B-1) Take 1 Tablet by mouth daily. (Patient not taking: Reported on 04/06/2023) Prochlorperazine Maleate 10 MG Oral Tablet (Compazine) Take 1 Tablet by mouth every 6 hours as needed for Nausea. 30 Tablet 2 Lidocaine-Prilocaine 2.5-2.5 % External Cream (Emla) APPLY TO SKIN OVER MEDIPORT & COVER 1HR PRIOR TO ACCESSING. 30 g 1 Dexamethasone 4 MG Oral Tablet (Decadron) Take 8mg twice a day x3 days starting the day before chemotherapy 48 Tablet 0 Vitamin B-12 1000 MCG Oral Tablet (Cyanocobalamin) Take 1 Tablet by mouth in the morning. 30 Tablet5 Acetaminophen 160 MG/5ML Oral Liquid (Tylenol) Take 20.3 mL by mouth every 4 hours as needed for Pain, Breakthrough. 118 mL 3 chlorproMAZINE HCl 25 MG Oral Tablet (Thorazine) Take 1 Tablet by mouth every 6 hours as needed forNausea or Other (hiccups). 30 Tablet 3 LORazepam 0.5 MG Oral Tablet (Ativan) Take 1 Tablet by mouth every 6 hours as needed for Anxiety orSleep. 30 Tablet 0 Pantoprazole Sodium 40 MG Oral Tablet Delayed Release (Protonix) TAKE ONE TABLET BY MOUTH TWICE DAILY 60 Tablet 4 Morphine Sulfate (Concentrate) 100 MG/5ML Oral Solution Take 0.25 mL by mouth every 4 hours as needed for Pain, Moderate. 42 mL 0 Ondansetron HCl 8 MG Oral Tablet (Zofran) Take 1 Tablet by mouth every 8 hours as needed for Nausea. 30 Tablet 2 No current facility-administered medications for this visit. 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 Employer: [place] [address] Tobacco Use Smoking status: Former Types: Cigars Smokeless tobacco: Never Tobacco comments: Very infrequently Vaping Use Vaping Use: Every day Substance and Sexual Activity Alcohol use: Yes Alcohol/week: 5.0 standard drinks of alcohol Types: 5 12 oz of beer per week Drug use: Yes Types: Marijuana Comment: infrequently Sexual activity: Yes Partners: Female Other Topics Concern Not on file Social History Narrative Not on file Social Determinants of Health Financial Resource Strain: Not on file Food Insecurity: Not on file Transportation Needs: Not on file Physical Activity: Not on file Stress: Not on file Social Connections: Not on file Intimate Partner Violence: Not on file Housing Stability: Not on file Review of Systems: ROS: See HPI for pertinent positives, otherwise all other systems are negative. Physical Examination: BP 117/67 | Pulse 78 | Temp 36.4 C (97.6 F) (Tympanic) | Resp 16 | Wt 59.5 kg (131 lb 1.6 oz) |BMI 18.55 kg/m | BSA 1.72 m Constitutional: no acute distress, appropriate mood Head: normocephalic, atraumatic Eyes: sclera and conjunctiva normal Neck: supple, trachea midline, normal range of motion CV: warm and well perfused, RRR Chest: symmetric and normal respiratory effort, CTABL Abdomen: soft, non distended Extremities: no edema, no cyanosis Skin: warm, dry Neuro: alert, conversant, motor function is grossly intact Labs: Results Results for orders placed or performed in visit on 06/20/23 COMPREHENSIVE METABOLIC PANEL Result Value Ref Range BUN 5 (L) 6 - 20 mg/dL Creatinine 0.7 0.6 - 1.2 mg/dL Estimated Glomerular Filtration Rate >90 >=60 mL/min Sodium 136 135 - 146 mmol/L Potassium 4.0 3.5 - 5.1 mmol/L Chloride 100 98 - 107 mmol/L CO2 24 22 - 32 mmol/L Anion Gap 12 7 - 15 mmol/L Glucose 116 70 - 120 mg/dL Albumin 3.4 (L) 3.8 - 5.0 g/dL AST 20 10 - 50 U/L Alkaline Phosphatase 114 35 - 130 U/L Bilirubin, Total 0.4 <=1.2 mg/dL Calcium 9.3 8.4 - 10.2 mg/dL Protein 6.8 6.0 - 8.3 g/dL ALT 16 10 - 50 U/L FERRITIN Result Value Ref Range Ferritin 631 (H) 30 - 400 ng/mL IRON SCREEN, INCLUDING TIBC Result Value Ref Range Iron 44 (L) 45 - 176 ug/dL Iron Binding Capacity 233 (L) 250 - 425 ug/dL Transferrin Saturation Percent 19 15 - 55 % CBC Result Value Ref Range WBC 9.88 4.00 - 10.80 K/uL RBC 3.91 4.50 - 5.25 M/uL HGB 10.2 (L) 14.0 - 16.8 g/dL HCT 32.4 (L) 40.0 - 48.4 % MCV 82.9 82.0 - 99.5 fL MCH 26.1 27.0 - 34.0 pg MCHC 31.5 32.0 - 36.0 g/dL RDW 22.3 11.5 - 15.5 % PLT 345 140 - 400 K/uL MPV 9.6 6.6 - 11.1 fL DIFFERENTIAL, AUTOMATED Result Value Ref Range WBC 9.88 4.00 - 10.80 K/uL Neutrophils % 86.4 (H) 40.0 - 75.0 % Lymphocytes % 9.1 (L) 18.0 - 42.0 % Monocytes % 3.3 1.0 - 11.0 % Eosinophils % 1.1 0.0 - 6.0 % Basophils % 0.1 0.0 - 2.0 % Absolute Neutrophils 8.53 (H) 1.80 - 7.70 K/uL Absolute Lymphocytes 0.90 (L) 1.00 - 4.80 K/ul Absolute Monocytes 0.33 0.00 - 1.10 K/uL Absolute Eosinophils 0.11 0.00 - 0.70 K/uL Absolute Basophils 0.01 0.00 - 0.20 K/uL DIFFERENTIAL, TECHNOLOGIST REVIEW Result Value Ref Range nRBCs Schistocytes Few (A) None Seen Radiology: PET CT SKULL BASE TO MID-THIGH - 04/08/2023 1:26 pm IMPRESSION 1. Known stented hypermetabolic gastroesophageal cancer. 2. Few adjacent lymph nodes may be reactive or local metastasis, to include a right paracardial lymph node better seen on the comparison contrast-enhanced diagnostic CT. Characterization of metabolism on this exam is limited secondary to the described dose infiltration. 3. No convincing FDG PET/CT evidence of distant metastatic disease. PET CT SKULL BASE TO MID-THIGH - 06/07/2023 4:22 pm IMPRESSION 1. Proximal migration of gastroesophageal stent now contained within the lower esophagus. 2. Decreased bulk and metabolism of gastroesophageal and gastric cardia wall thickening. 3. Unchanged adjacent subcentimeter lymph nodes without significant metabolism, a reassuring finding. 4. No new hypermetabolic disease. 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 Plan: - Will plan for gastrectomy, possible esophageal resection, possible feeding tube - Consent obtained in clinic - Will need repeat EKG prior to surgery - Adjuvant therapy per Heme/Onc Patient examined at bedside and discussed w/ Dr. Kendal Smith, PGY-2, General Surgery 07/06/2023 1:09 PM I have discussed the patient's management with the medical trainee and agree with the note. Please refer to the documented findings and plan of care. This patient's visit today consisted of an evaluation. I was present and confirmed the findings of the history and exam. Plan for gastrectomy based on proximal extent of the tumor Praveen Edmonds MD bathhouse attendant Section Head, Surgical Oncology and Endocrine Surgery [facility] [address] [place] [address] Office: [phone] [email or web address] documented in this encounter Consult Notes * Teresa Pandya, SACHAN - 08/04/2023 7:24 AM EST CLINICAL NUTRITION CONSULT/PROGRESS NOTE [facility] [address] [address] Name: Parish Yoder [place]: [facility]B Date: 08/04/2023 Time: 7:24 AM How patient was identified (select 2): Wristband and Name Discussed in interdisciplinary rounds: No Parish Yoder is a 58 year old male being seen for parenteral nutrition Primary Diagnosis: Admitted with malignant neoplasm of cardia of stomach 08/02/23: Total gastrectomy with Trevin Y esophago-jejunostomy Other pertinent information: Nutrition & Weight management team consulted yesterday afternoon to begin PPN due to anticipation of patient being NPO for 5 days post-operatively. PPN started last night. Patient continues to feel nauseate this morning. Nutrition focused Physical exam completed today, patient with moderate level of fat and muscle lossnoted. Wt loss during chemo therapy likely caused fat and muscle loss, he has been regaining weight thoughfat and muscle losses have not yet recovered. Patient meeting criteria for moderate malnutrition atthis time. NUTRITION ASSESSMENT: Past medical/surgical history and medications reviewed. Food/Nutrition-Related History Diet: NPO Previously followed diet: Regular Food Allergies/Intolerances: No known Adult Energy Intake: No significant decrease Oral Nutrition Supplement (ONS): none Nutrition Support: PPN 08/03/23: 2000 mL provides 1324 Kcal, 96 gm Protein - 4.8 %Amino Acids, 5 % Dextrose, 3 % lipids Pertinent medications/vitamins/minerals/supplements: Thiamine (500mg) TID Pertinent Biochemical Data: There are no biochemical abnormalities requiring a change in the nutrition plan of care Nutrition-Focused Physical Findings: Appearance: Thin Respiratory support: Supplemental O2 Delivery: Room Air, None Nasal/Oral: No issues identified Digestive: s/p gastrectomy Cognition: Awake, alert Skin: Compromise without nutrition-related implications Enteral access: none Nutrition Focused Physical Exam: NFPE completed on 08/04/23 Subcutaneous Fat Loss: Orbital fat pads: Moderate Tricep: Moderate Muscle Loss: Temples: Moderate Clavicles: Mild Shoulders: Moderate Interosseous: Moderate Anthropometrics Measurements Height: 180.3 cm (5' 11") (08/02/231845) Admission weight: 64 kg Weight: 64.4 kg (142 lb) (08/02/231845) BMI: 19.81 (08/02/231845) Usual Body Weight: 68-67 kg per EHR; 72kg per patient [place] weight: 80.9 kg [place] Weight Based on BMI: 24.9 Adjusted ideal weight: n/a Interpretation of Weight Change Prior to Admission: Weight gain -13% loss March-June 2023 -Re-gained 5kg since Jun; 5.8% decreased from UBW Weight Changes Since Admission: n/a Nutrition Prescription: Energy needs: 25-30 Kcal/kg Based on admission weight Kcal/day: 7245-9606 Protein needs: 1.3-1.5 gm/kg Based on admission weight gm/day: 83-96 Fluid needs: 30 ml/kg Based on admission weight mL/day: 1920 Malnutrition: Malnutrition Present: Yes (08/04/23 1000) Adult Malnutrition Classification: Moderate (08/04/23 1000) Malnutrition Characteristics: Fat loss;Muscle loss (08/04/23 1000) Malnutrition Care Plan: Patient meets ASPEN/AND criteria for Moderate malnutrition. Patient started on PPN while strict NPO post-operatively Dietitian Action: Nutrition support monitoring (08/04/23 1000) NUTRITION DIAGNOSIS: Malnutrition moderate related to chronic illness as evidenced by Moderate fat loss, and moderate muscle loss. Altered GI function related to Stomach cancer s/p total gastrectomy as evidenced by need for current NPO status Goals: Transition to oral or enteral nutrition support as soon as clinically feasible. NUTRITION INTERVENTION/PLAN: Continue to monitor NPO/clear liquid status Continue to monitor nutrition support Clinical Nutrition Recommendations: Parenteral Nutrition: PPN Continue PPN per Nutrition &Weight management team If TPN needed recommend goal macronutrients 96gm Amino acids, 292gm Dextrose, 58gm Lipids =1956Kcal NUTRITION MONITORING AND EVALUATION: NPO status/diet advancement and tolerance Parenteral nutrition intake for formula, rate, progress toward goal regimen Lab values warranting change with MNT Weight for trends Plan follow-up: Will follow and adjust nutrition plan of care as medical condition requires. Please contact for change(s) in patient condition requiring earlier intervention. Teresa GÓMEZ [facility] Clinical Nutrition Services [place] Text / x [phone] * Vy Martin MD - 08/03/2023 1:54 PM ESTAssociated Order(s): PARENTERAL NUTRITION SUPPORT (ADULT) CONSULT IP CONSULT - Nutrition Support [address] [address] Name: Parish Yoder [place] [facility] Date: 08/03/2023 Time: 1:54 PM REQUESTING SERVICE: General surgery REASON FOR CONSULT: Protein calorie malnutrition/nutrition support HPI: Parish Yoder is a 58 year old male with a past medical history significant for Siewert III gastric cancer now s/p total gastrectomy with Trevin-en-Y esophagojejunostomy by Dr. Edmonds on 08/02/23 who is seen at the request of General surgery for evaluation and treatment of protein calorie malnutrition and initiation of parenteral nutrition. Patient is strict NPO. Of note, patient has had 13% weight loss from 03/2023-06/2023 and has gained about 5 kg since 06/2023 and was drinking protein shakes at home. Patient seen and examined at bedside. Reports he has been spitting up some phlegm but denies any nausea or vomiting at this time. Pain appears well controlled. 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 Need for hepatitis C screening test 04/19/2014 Hepatitis C negative Trigeminal neuralgia of left side of face 12/14/2017 PAST SURGICAL HISTORY: Past Surgical History: Procedure Laterality Date COLONOSCOPY, DIAGNOSTIC (RECTUM) 03/30/2023 COLONOSCOPY FLEXIBLE PROXIMAL DIAGNOSTIC performed by Homar Blair MD at ENDOSCOPY [facility] EGD, FLEXIBLE, DIAGNOSTIC 03/30/2023 ESOPHAGOGASTRODUODENOSCOPY (EGD), FLEXIBLE, TRANSORAL, DIAGNOSTIC performed by Homar Blair MD at ENDOSCOPY [facility] EGD, W/ENDOSCOPIC US N/A 04/01/2023 ESOPHAGOGASTRODUODENOSCOPY (EGD), FLEXIBLE, TRANSORAL, ENDOSCOPIC ULTRASOUND performed by Karson Greco MD at [facility] [place] EXPLORE/DECOMPRESS CRANIAL NERVES Left 03/15/2018 CRANIECTOMY SUBOCCIPITAL EXPLORATION CRANIAL NERVES performed by Ronak Khoury MD [place] [facility] [place] TUNN ACC DEV;5 YRS/OLDER Right 04/19/2023 INSERT TUNNELED CENTRAL VENOUS ACCESS WITH SUBQ PORT performed by Thaddeus Brown DO at OR [facility] MICROSURGERY ADD-ON Left 03/15/2018 MICROSURGICAL SURGERY REQUIRING MICROSCOPE LISTED SEPARATELY performed by Ronak Khoury MD [place] [facility] [place] STOMACH, TOTAL N/A 08/02/2023 GASTRECTOMY TOTAL WITH ESOPHAGOENTEROSTOMY performed by Praveen Edmonds MD at [facility] SPINAL FLUID TAP FOR DRAINAGE Left 03/15/2018 SPINAL PUNCTURE DRAINAGE CSF performed by Ronak Khoury MD [place] [facility] [place] H[place]ORY: Family History Problem Relation Age of Onset No Past Hx Mother Stroke Father No Past Hx Son No Past Hx Unknown SOCIAL HISTORY: Social History Tobacco Use Smoking status: Former Types: Cigars Smokeless tobacco: Never Tobacco comments: Very infrequently Vaping Use Vaping Use: Every day Substance Use Topics Alcohol use: Yes Alcohol/week: 5.0 standard drinks of alcohol Types: 5 12 oz of beer per week Drug use: Yes Types: Marijuana Comment: infrequently ROS: Review of systems otherwise negative. PHYSICAL EXAMINATION: Most Recent Vital Signs: BP: 115 mmHg/83 mmHg (08/03/23 1140) Pulse: 80 (08/03/23 1140) Temp: 36.89 C (08/03/23 1140) Resp: 14 (08/03/23 1140) SpO2: 99 % (08/03/23 1140) Vital Signs Last 24 Hours: Systolic BP: Most Recent Systolic BP Av.1 mmHg Min: 103 mmHg Max: 143 mmHg Temperature: Most Recent Temperature Av.2 C Min: 35.78 C Max: 36.89 C Pulse: Pulse Av.9 Min: 70 Max: 88 Respirations: Resp Av.8 Min: 9 Max: 19 SpO2: SpO2 Av.9 % Min: 94 % Max: 100 % Constitutional: no acute distress CV: normal rate Chest: normal respiratory effort Abdomen: soft, tenderness, midline incision clean, dry and intact HEIGHT: 5' 11" WEIGHT ON ADMISSION: 64kg BMI: 19.81 IDEAL BODY WEIGHT: 70.6kg, based on BMI of 21.7 CURRENT ORAL INTAKE: NPO CURRENT NUTRITION SUPPORT: none ENTERAL ACCESS: none VENOUS ACCESS: right chest port, peripheral IV LABS: Labs reviewed as indicated below: 08/03/23 07:01 Sodium 136 Potassium 4.0 Chloride 101 CO2 24 BUN 14 Creatinine 0.6 Estimated Glomerular Filtration Rate >90 Anion Gap 11 Glucose 101 Calcium 8.7 Magnesium 1.9 Phosphorus 4.7 ASSESSMENT: Parish Yoder is a pleasant 58 year old male who has been assessed by the nutritionsupport team for the evaluation of protein calorie malnutrition. Estimated calorie needs: 2257-4712 kcal per based on 25-30 Kcal of ABW. Estimated protein needs: 96 g based on 1.5 grams/kg ABW. RECOMMENDATIONS: Recommended nutritional support: TPN As per A.S.P.E.N. guidelines: Parenteral Nutrition is indicated due to: Enteral nutrition is not feasible. #Nutrition Support #Unintentional weight loss Patient is appropriate for parenteral nutrition No central access in place, plan to start PPN 2L total volume, // split Electrolytes: Sodium 40 mEq/L Potassium 30 mEq/L Calcium 4 mEq/L Phosphate 10 mmol/L +MVI, +tralement Stop all standing continuous IVF once PPN is started Please obtain central access so that we may transition to TPN with goal macro nutrients of 1960kcalcomprised of 96g amino acids, 292g dextrose and 58g lipids Ensure BMP, Mag and phos are ordered at least twice daily while on parenteral nutrition, pt at high-risk to re-feed Triglycerides added on to AM labs, please obtain weekly thereafter Obtain ionized calcium if evidence of hypocalcemia on BMP Maintain accurate intake and output Weights qAM Please advance diet as tolerated and as appropriate Start on high dose thiamine Labs ordered: vitamin A, vitamin D, vitamin E, vitamin K, vitamin B1, folate, vitamin B12, copper, zinc, iron panel, ferritin Labs pending: vitamin A, vitamin D, vitamin E, vitamin K, vitamin B1, folate, vitamin B12, copper, zinc, iron panel, ferritin #Hypomagnesemia Unable to place magnesium in the PPN, continue to bolus as needed for a goal level >2 #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 We will follow the patient along with you. Patient's care, including parenteral nutrition, was discussed today with the pharmacist, clinical nutrition, nutrition and weightmanagement staff. The recommendations noted above are a result of this discussion. The patient was discussed with Christen Tanner DO. Vy Martin MD Associated attestation - Christen Tanner DO - 08/03/2023 6:33 PM EST Attending Attestation: I have discussed the patient's management with the medical trainee and agree with the note. Please refer to the documented findings and plan of care. The patient's bedside service today consisted of a service. I was readily available for immediate [id number] consultation and assistance. I have reviewed the medical history, physical examination, diagnosis, and plan. Christen Tanner DO Associate Physician Nutrition and Weight Management Department * Teresa Pandya, JESUS - 08/03/2023 10:50 AM EST CLINICAL NUTRITION ADULT RISK ASSESSMENT [address] [address] Name: Parish Yoder [place] [facility] Date: 08/03/2023 Time: 10:52 AM How patient was identified (select 2): Wristband and Name Parish Yoder is a 58 year old male being assessed for clinical nutrition risk related to significant unintentional weight loss Primary diagnosis: admitted with malignant neoplasm of cardia of stomach 08/02/23: Total gastrectomy with Trevin Y esophago-jejunostomy Other pertinent information: patient seen this morning, reports appetite has improved since finishing Chemo treatments and he has been able to regain some weight. Patient drinking Boost supplements at home. 13% weight loss from March to June 2023, Since June has gained ~5kg. June was patientslowest weight 59kg. Prior to cancer treatments reports UBW around 160lb (~72kg). Per weights on file 68-67kg appears UBW. This morning patient is NPO and feeling nauseated at time of visit. Per surgery Nurse practitioner patient anticipated to be discharged on full liquid diet. Due to nausea patient did not feel like discussion diet at this time. Will follow at later time and provide education. Anthropometrics Measurements Admission weight (for dietitians): 64 kg Height: 180.3 cm (5' 11") (08/02/231845) Weight: 64.4 kg (142 lb) (08/02/231845) BMI: 19.81 (08/02/231845) Usual Body Weight: 68-67 kg per EHR, 72kg per patient Diet History: Previously followed diet: Regular Food Allergies/Intolerances: no known Current Diet/Supplements: Diet: NPO Oral Nutrition Supplement (ONS): none Pertinent medications/vitamins/minerals/supplements: Isolyte-S infusion, RISK FACTORS: Adult Energy Intake: No significant decrease Interpretation of Weight Change: Greater than 7.5% weight loss in 3 months (Severe) Skin: Compromise without nutrition-related implications -Surgical incision abdomen NUTRITION RISK CATEGORY: Nutrition Risk Category: Low/Moderate (0-1 factors) Clinical Nutrition Recommendations: Diet: Continue current nutrition plan NUTRITION INTERVENTION/PLAN: Continue to monitor NPO/clear liquid status Will provide diet education prior to discharge. Will follow and adjust nutritional plan as medical condition requires. Please contact for change(s)in patient condition requiring earlier intervention. Teresa GÓMEZ [facility] Clinical Nutrition Services [place] Text / x [phone] * Elizabet Latham PT - 08/03/2023 9:58 AM ESTAssociated Order(s): ADULT PHYSICAL THERAPY CONSULT IP GENERAL EVALUATION - Physical Therapy [address] [id number] Name: Parish Yoder Location: [address] Date: 08/03/2023 Time: 957 Parish Yoder is a/an 58 year old male. Patient Status: Inpatient Insurance: Payor: [employer]) Plan: [employer] BS Product Type: *No Product type* Patient Seen: at bedside, nursing cleared patient for therapy Patient Identified By: Name, ID Band and Date Diagnosis: malignant neoplasm of cardia of stomach (08/03/23957) Status of treatment: Discontinue services on evaluation (08/03/23957) Orders: PT evaluation and treatment;OOB (08/03/23957) Weight Bearing Status: Weight bearing as tolerated (08/03/23957) Total Treatment Time--free text: 8 (08/03/23957) Past Medical History: 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 Need for hepatitis C screening test 04/19/2014 Hepatitis C negative Trigeminal neuralgia of left side of face 12/14/2017 Past Surgical History: Past Surgical History: Procedure Laterality Date COLONOSCOPY, DIAGNOSTIC (RECTUM) 03/30/2023 COLONOSCOPY FLEXIBLE PROXIMAL DIAGNOSTIC performed by Homar Blair MD at ENDOSCOPY [facility] EGD, FLEXIBLE, DIAGNOSTIC 03/30/2023 ESOPHAGOGASTRODUODENOSCOPY (EGD), FLEXIBLE, TRANSORAL, DIAGNOSTIC performed by Homar Blair MD at ENDOSCOPY [facility] EGD, W/ENDOSCOPIC US N/A 04/01/2023 ESOPHAGOGASTRODUODENOSCOPY (EGD), FLEXIBLE, TRANSORAL, ENDOSCOPIC ULTRASOUND performed by Karson Greco MD at [place] [facility] [place]/DECOMPRESS CRANIAL NERVES Left 03/15/2018 CRANIECTOMY SUBOCCIPITAL EXPLORATION CRANIAL NERVES performed by Ronak Khoury MD at [place] [facility] [place] [place] TUNN ACC DEV;5 YRS/OLDER Right 04/19/2023 INSERT TUNNELED CENTRAL VENOUS ACCESS WITH SUBQ PORT performed by Thaddeus Brown DO at OR [facility] MICROSURGERY ADD-ON Left 03/15/2018 MICROSURGICAL SURGERY REQUIRING MICROSCOPE LISTED SEPARATELY performed by Ronak Khoury MD [place] [facility] [place] STOMACH, TOTAL N/A 08/02/2023 GASTRECTOMY TOTAL WITH ESOPHAGOENTEROSTOMY performed by Praveen Edmonds MD at [place] [facility] SPINAL FLUID TAP FOR DRAINAGE Left 03/15/2018 SPINAL PUNCTURE DRAINAGE CSF performed by Ronak Khoury MD [place] [facility] Subjective: Patient resting in bed, agrees to PT evaluation Social History/Disposition Lives with: Spouse (08/03/23957) Assistance available: Yes (08/03/23957) Dwelling type: Single story home (08/03/23957) Entry steps: None (08/03/23957) Inside steps: None (08/03/23957) Bedroom location: 1st floor (08/03/23957) Bath location: 1st floor full bath (08/03/23957) Prior Level of Function Reported by: Patient (08/03/23957) Ambulation: Ambulatory without device (08/03/23957) Devices at home: No device (08/03/23957) Observations Consciousness: Alert (08/03/23957) Orientation: Oriented times 4 (08/03/23957) Psychosocial: Patient can communicate basic needs;Patient can converse in a social setting (08/03/23957) Other Findings: Yes (08/03/23957) Findings: Light touch sensation (08/03/23957) Light Touch Sensation Results: Intact;LLE;RLE (08/03/23957) Sitting Posture: Rounded shoulders (08/03/23957) Standing Posture: Rounded shoulders (08/03/23957) Pain: Patient has complaints of pain. Pain located stomach/abdomen, rated 6/10 Range of Motion Range of Motion: WFL (08/03/23957) Strength Assessment Strength Assessment: WNL (08/03/23957) P.T. Bed Mobility Supine-Sit: Modified Independent (08/03/23957) Sit-Supine: Modified Independent (08/03/23957) Transfers Sit-Stand: Modified Independent (08/03/23957) Stand-Sit: Modified Independent (08/03/23957) Ambulation: Distance ambulated (feet): 150 Assistive Device: No device Assist: Modified Independent Balance Sit (Static): Fair (+) (08/03/23957) Sit (Dynamic): Fair (+) (08/03/23957) Stand (Static): Fair (+) (08/03/23957) Stand (Dynamic): Fair (+) (08/03/23957) Patient and or Family Goal(s): to get well and to return home Patient Education Review of Precautions: Safety;Fall (role of PT) (08/03/23957) Safety Awareness: Patient verbalizes insight of current deficits;Patient demonstrates carryover of insight during functional tasks (08/03/23957) Preferred learning method: Combination (08/03/23957) Barriers to learning: None (08/03/23957) Method of Education: Verbalized to patient (08/03/23957) Topic of Education: Safety with mobility, Goals/plan of care, and Fall prevention Method of Education: Verbal discussion and explanation provided to patient: verbalized understanding and or agreement of this information Treatment Provided: Evaluation Low Complexity 8 minutes - 99202: Patient was cooperative, pleasant,and motivated during treatment session. Low complexity evaluation performed with indication of no personal factors or comorbidities that impact plan of care. Alarm Status Patient positioned in: Bed (08/03/23957) With: Call das in reach (08/03/23957) Treatment Status: Treatment at bedside (08/03/23957) Assessment: Patient is 58 y/o male with dx malignant neoplasm of cardia of stomach. Prior to admission, patient lives with spouse and was independent with mobility with no device. Patient currently modified independent (extra time due to pain) for bed mobility, sit<>stand, and ambulation withno device. Stairs not assessed as patient reports he does not have steps at home. Good safety awaren ess and insight exhibited. Patient has no concerns regarding return to home. No further skilled PT services necessary at this time. Equipment Needs: Equipment needs: (tbd) (08/03/23957) Treatment Plan: Discontinue from Physical Therapy Services AM PAC Score with Stairs: 24 A portion of this AM-PAC assessment not scored based on functional assessment; rather clinical decision making utilized based on current findings and/or prior level of function. Please refer to future AM-PAC calculations of functional ability as they become available. * Debbie Weber, OTR/L - 08/03/2023 9:58 AM ESTAssociated Order(s): ADULT OCCUPATIONAL THERAPY CONSULT IP GENERAL EVALUATION - Occupational Therapy [address] [address] Name: Parish Yoder [place] [facility] Date: 08/03/2023 Time: 957 Parish Yoder is a 58 year old male. Patient Status: Inpatient Insurance: Payor: [employer]) Plan: [employer] Product Type: *No Product type* Patient Seen: at bedside, nursing cleared patient for therapy Patient Identified By: Name, ID Band and Date Diagnosis: gastric CA s/p gastrectomy (08/03/23 1000) Status of treatment: Evaluation completed (08/03/23 1000) Orders: OT evaluation and treatment (08/03/23 1000) Weight Bearing Status: Weight bearing as tolerated (08/03/23 1000) Precautions: Safety;Falls (08/03/23 1000) Total Treatment Time: 10 (08/03/23 1000) Past Medical History: 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 Need for hepatitis C screening test 04/19/2014 Hepatitis C negative Trigeminal neuralgia of left side of face 12/14/2017 Past Surgical History: Past Surgical History: Procedure Laterality Date COLONOSCOPY, DIAGNOSTIC (RECTUM) 03/30/2023 COLONOSCOPY FLEXIBLE PROXIMAL DIAGNOSTIC performed by Homar Blair MD at ENDOSCOPY [facility] EGD, FLEXIBLE, DIAGNOSTIC 03/30/2023 ESOPHAGOGASTRODUODENOSCOPY (EGD), FLEXIBLE, TRANSORAL, DIAGNOSTIC performed by Homar Blair MD at ENDOSCOPY [facility] EGD, W/ENDOSCOPIC US N/A 04/01/2023 ESOPHAGOGASTRODUODENOSCOPY (EGD), FLEXIBLE, TRANSORAL, ENDOSCOPIC ULTRASOUND performed by Karson Greco MD at [place] [facility] EX[place]ORE/DECOMPRESS CRANIAL NERVES Left 03/15/2018 CRANIECTOMY SUBOCCIPITAL EXPLORATION CRANIAL NERVES performed by Ronak Khoury MD at [place] [facility] [place] TUNN ACC DEV;5 YRS/OLDER Right 04/19/2023 INSERT TUNNELED CENTRAL VENOUS ACCESS WITH SUBQ PORT performed by Thaddeus Brown DO at OR [facility] MICROSURGERY ADD-ON Left 03/15/2018 MICROSURGICAL SURGERY REQUIRING MICROSCOPE LISTED SEPARATELY performed by Ronak Khoury MD at [place] [facility] REM[place] STOMACH, TOTAL N/A 08/02/2023 GASTRECTOMY TOTAL WITH ESOPHAGOENTEROSTOMY performed by Praveen Edmonds MD at [place] [facility] SPINAL FLUID TAP FOR DRAINAGE Left 03/15/2018 SPINAL PUNCTURE DRAINAGE CSF performed by Ronak Khoury MD at [place] [facility] Social History/Disposition Lives with: Spouse (08/03/23 1000) Assistance available: Yes (08/03/23 1000) Dwelling type: Single story home (08/03/23 1000) Entry steps: None (08/03/23 1000) Inside steps: None (08/03/23 1000) Bedroom location: 1st floor (08/03/23 1000) Bath location: 1st floor full bath (08/03/23 1000) Prior Level of Function Reported by: Patient (08/03/23 1000) Ambulation: Ambulatory without device (08/03/23 1000) Grooming: Independent (08/03/23 1000) Bathing: Independent (08/03/23 1000) Dressing: Independent (08/03/23 1000) Feeding: Independent (08/03/23 1000) Toileting: Independent (08/03/23 1000) Meal Prep: Independent (08/03/23 1000) Homemaking: Independent (08/03/23 1000) Shopping: Independent (08/03/23 1000) Medication Management: Independent (08/03/23 1000) Money Management: Independent (08/03/23 1000) Occupation/Leisure Skills: Employed (08/03/23 1000) Driving: Yes (08/03/23 1000) Durable Medical Equipment at home: No device (08/03/23 1000) Pain: Patient has complaints of pain. Pain located abdomen. 01/22 Observations Consciousness: Alert (08/03/23 1000) Orientation: Oriented times 4 (08/03/23999) Psychosocial: Patient can communicate basic needs;Patient can converse in a social setting (08/03/23999) Sitting posture: Forward head;Rounded shoulders (08/03/23999) Standing posture: Forward head;Rounded shoulders (08/03/23999) Safety awareness: The Patient verbalizes insight of current deficits.;The Patient demonstrates carryover of insight during functional tasks.;The Patient can communicate basic needs. (08/03/23999) Other Findings Endurance: Sitting tolerance;Standing tolerance;Good (08/03/23999) Light touch sensation: Intact (08/03/23999) Proprioception: Intact (08/03/23999) Coordination: Intact (08/03/23999) Tone: Normal tone (08/03/23999) Edema: No edema noted (08/03/23999) Current Functional Status: Bilateral Upper Extremity Range of Motion: WFL (08/03/23999) Strength Assessment: (4+/5 throughout) (08/03/23999) Self Care Able to provide self care: Yes (08/03/23999) Feeding: Modified Independent (08/03/23999) Grooming: Modified Independent (08/03/23999) Dressing Upper Body: Modified Independent (08/03/23999) Lower Body: Modified Independent (08/03/23999) Functional Ambulation Assistive Device: No device (08/03/23999) Distance in feet:: 150 (08/03/23999) Level of Assistance: Modified Independent (08/03/23999) Bed Mobility Supine-Sit: Modified Independent (08/03/23999) Sit-Supine: Modified Independent (08/03/23999) OT Transfers Sit-Stand: Modified Independent (08/03/23999) Stand-Sit: Modified Independent (08/03/23999) Balance Sit (Static): Good (08/03/23 1000) Sit (Dynamic): Good (08/03/23999) Stand (Static): Good (08/03/23 1000) Stand (Dynamic): Good (08/03/23 1000) Alarm Status Patient positioned in: Bed (08/03/23999) With: Call das in reach (08/03/23999) Patient and Family Goals: to get well Patient Education Education Topic: Role of OT;Plan of care goals (08/03/23999) Review of Precautions: Fall;Safety (08/03/23999) Method of Education: Verbalized to patient (08/03/23999) Education Provided to: Patient (08/03/23999) Response to Education: Receptive and agreeable to education (08/03/23999) Barriers to learning: Medical status (08/03/23999) Preferred learning method: Combination (08/03/23999) Treatment Provided: Evaluation Low Complexity 10 minutes - 78997: Patient was cooperative, pleasant, motivated, and alert during treatment session. Low complexity evaluation performed and no significant deficits were identified that result in activity limitation. The patient does not have any comorbidities that affect occupational performance. There were no modifications necessary to complete theevaluation. Deficits Requiring O.T. Treatment: Deficits requiring O.T. treatment needs: (n/a) (08/03/23999) Assessment: patient is a 58 year old male admitted with gastric CA and presents at a level of modified independent in all areas of care and mobility. No significant deficits noted at this time and would not benefit from further therapy services. Please reconsult if change in status occurs Treatment Plan: Discontinue Occupational Therapy services Anticipated Frequency (on eval): (d/c OT) (08/03/23999) AM-PAC Help From Another Person Eating Meals: None (08/03/23999) Help From Another Person Taking Care of Personal Grooming: None (08/03/23999) Help From Another Person To Put On/Take Off Upper Body Clothing: None (08/03/23999) Help From Another Person To Put On/Take Off Lower Body Clothing: None (08/03/23999) Help From Another Person Toileting: None (08/03/23999) Help From Another Person Bathing: None (08/03/23999) OT AM-PAC Score: 24 (08/03/23999) OT AM-PAC t-Scale Score: 57.54 (08/03/23999) HLM (Highest Level of Mobility) Goal: Level 8 walk 250 feet or more (08/03/23 2209) A portion of this AM-PAC assessment not scored based on functional assessment ; rather clinical decision making utilized based on current findings and/or prior level of function. Please refer to future AM-PAC calculations of functional ability as they become available. Debbie Gus, OTR/L Occupational Therapy [facility] 08/03/2023 3:59 PM documented in this encounter Nursing Notes * Janeth Lange RN - 08/02/2023 7:00 PM EST Dual Licensed Skin Assessment completed by janeth cat rn and marielle wise rn. The patient is/has a N/A Skin Breakdown (includes non blanchable erythema): No * Alyssa Siddiqi NA - 08/02/2023 6:50 PM EST Post Anesthesia Care Unit Transport Note [facility] [address] [address] Dept. Parish Thomas Clouser Transported from [facility] to : [facility] Time: 1838 Care of patient transferred to: [facility] Transported via: Bed Belongings with Patient: YES Pulse : 86 Temp : 35.8 BP : 119/82 Respirations : 14 Pulse Ox : 96 O2 : RA SCDS: On but not activated/no machine * Hannah Storey RN - 08/02/2023 6:40 PM EST Per patient's , patient has routine port "cleanings" at an outpatient facility to have port flushed to remain patent. Next appt was supposed to be today. [facility] notified to potentially coordinate during IP stay. * Carri Rendon RN - 08/02/2023 5:53 PM EST PERIOP TO IP HANDOFF COMMUNICATION NOTE [facility] [address] Name: Parish Yoder AGE: [age] year old Location[place] [facility] Date: 08/02/2023 Attention to: Janeth Lange RN Report from: Carri Rendon RN Patient arriving via: Bed Time of call: 5:54 PM Phone Ext: tiger text Reason for SBAR , Background, Assessment, Recommendation) handoff: Transfer Sending to: [id number] Emotional/Personal Events & Special Needs: Prescriptions in chart: No Code Status: Full Code Discussion of adv directives occurred with - adult: Not Discussed due to patient's condition Does patient have living will: No Safety Concerns: no safety concerns identified Allergies: Tegretol [carbamazepine] PMH: 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 Need for hepatitis C screening test 04/19/2014 Hepatitis C negative Trigeminal neuralgia of left side of face 12/14/2017 PSH: Past Surgical History: Procedure Laterality Date COLONOSCOPY, DIAGNOSTIC (RECTUM) 03/30/2023 COLONOSCOPY FLEXIBLE PROXIMAL DIAGNOSTIC performed by Homar Blair MD at ENDOSCOPY [facility] EGD, FLEXIBLE, DIAGNOSTIC 03/30/2023 ESOPHAGOGASTRODUODENOSCOPY (EGD), FLEXIBLE, TRANSORAL, DIAGNOSTIC performed by Homar Blair MD at ENDOSCOPY [facility] EGD, W/ENDOSCOPIC US N/A 04/01/2023 ESOPHAGOGASTRODUODENOSCOPY (EGD), FLEXIBLE, TRANSORAL, ENDOSCOPIC ULTRASOUND performed by Karson Greco MD at [facility] EXPLORE/DECOMPRESS CRANIAL NERVES Left 03/15/2018 CRANIECTOMY SUBOCCIPITAL EXPLORATION CRANIAL NERVES performed by Ronak Khoury MD at [place] [facility] INSER TUNN ACC DEV;5 YRS/OLDER Right 04/19/2023 INSERT TUNNELED CENTRAL VENOUS ACCESS WITH SUBQ PORT performed by Thaddeus Brown DO at OR [facility] MICROSURGERY ADD-ON Left 03/15/2018 MICROSURGICAL SURGERY REQUIRING MICROSCOPE LISTED SEPARATELY performed by Ronak Khoury MD [place] [facility] SPINAL FLUID TAP FOR DRAINAGE Left 03/15/2018 SPINAL PUNCTURE DRAINAGE CSF performed by Ronak Khoury MD at [place] [facility] Isolation: Isolation: Procedure: Total gastrectomy with Trevin y esophago-jejunostomy Type of Anesthesia: General endotracheal anesthesia IV intake: 1000 mL + 500 albumin EBL: OR: 50 mL PACU: 0 mL Urine output: OR 200 mL PACU 0 mL IUBC (Espinoza): in place Incision location: abdominal Dressing location: abdominal Time of last skin assessment: 1559 Pressure injuries or areas of concern: n/a surgical changes only. Lines: Urethral Catheter Regular catheter (Active) Site Assessment Clean;Skin intact 08/02/23 164 Securement Method Leg strap 08/02/23 164 Catheter secured to leg? Yes 08/02/23 164 Catheter bag below bladder? Yes 08/02/23 164 Has IUBC been removed? (If yes, ensure the order is discontinued.) No, perioperative, or scheduled for return to OR within 48 hrs 08/02/23 1645 IUBC Tubing Disconnected This Shift? No 08/02/23 1645 Collection Container Standard drainage 08/02/23 164 Urine Description Clear;Yellow 08/02/23 1645 Number of days: 0 Peripheral Line Left;Lower;Posterior Arm (Active) Status Flushes easily;Fluids infusing 08/02/23 1541 Tubing Changed No 08/02/23 1541 Phlebitis Scale 0 08/02/23 1541 Infiltration Scale 0 08/02/23 1541 Site Description (Other) Without redness, swelling or drainage 08/02/23 1541 Site Intervention Flushed 08/02/23 1541 Dressing Assessment Dressing clean, dry, and intact;Transparent dressing 08/02/23 1541 Dressing Intervention None required 08/02/23 1541 Number of days: 0 Peripheral Line Right Hand 18 Gauge (Active) Status Capped/Locked;Flushes easily 08/02/23 1541 Tubing Changed N/A 08/02/23 1541 Phlebitis Scale 0 08/02/23 1541 Infiltration Scale 0 08/02/23 1541 Site Description (Other) Without redness, swelling or drainage 08/02/23 1541 Site Intervention Flushed 08/02/23 1541 Dressing Assessment Dressing clean, dry, and intact;Transparent dressing 08/02/23 1541 Dressing Intervention None required 08/02/23 1541 Number of days: 0 Implanted IV Device Right Chest (Active) Number of days: 105 Vital Signs: BP: 114/76 (08/02/23 1745) Temp: 36 C (96.8 F) (08/02/23 1541) Pulse: 83 (08/02/23 174) Resp: 11 (08/02/231744) SpO2: 96 % (08/02/231744) O2 flow rate: 0 L/MIN (08/02/23 1730) Glucose (Bedside): 98 (08/02/23 114) Time of last pain medication: 1725 Med: fentanyl Time of last antibiotic: 1459 Med: cefoxitin Time of last antiemetic: 1510 Med: zofran [place]: no Drips: no Neurological: Speech: Clear (08/02/231644) Level of Consciousness: Alert (08/02/231644) RUE Motor Strength: 5-Active movement with full resistance (08/02/231644) RLE Motor Strength: 4-Active movement with some resistance (08/02/231644) LUE Motor Strength: 5-Active movement with full resistance (08/02/231644) LLE Motor Strength: 4-Active movement with some resistance (08/02/231644) Coma Score: 15 (08/02/23 1700) Respiratory: Respiratory WNL: WNL- within normal limits (08/02/231644) Cough: None (08/02/23 1130) Depth/Rhythm: Regular (08/02/231644) Dyspnea Occurance: None (08/02/231644) Effort: Unlabored (08/02/231644) Oxygen therapy/ Mechanical vent O2 flow rate: 0 L/MIN (08/02/23 1730) Supplemental O2 Delivery: Room Air, None (08/02/231744) Cardiac: Cardiovascular WNL: WNL - within normal limits (08/02/231644) Heart Sounds: S1;S2 (08/02/231644) Rhythm: Regular;NSR (08/02/231644) Extremities: +Sensation;Right;Left;Upper;Lower;[place];Warm (08/02/231644) Pulses Right: Dorsalis Pedis +;Palpable;Radial + (08/02/231644) Pulses Left: Dorsalis Pedis +;Palpable;Radial + (08/02/231644) Edema: No (08/02/231644) Capillary Refill: 3 sec (08/02/23 1130) GI: GI WNL: X - Exceptions to WNL as documented below (08/02/231644) Abdomen: Soft;Non-distended;Tender (08/02/231644) Bowel Sounds: All Quadrants (08/02/231644) : WNL: X - Exceptions to WNL as documented below (08/02/231644) Urine Description: Clear;Yellow (08/02/231644) Urethral Catheter Regular catheter (Active) Site Assessment Clean;Skin intact 08/02/231644 Securement Method Leg strap 08/02/231644 Catheter secured to leg? Yes 08/02/231644 Catheter bag below bladder? Yes 08/02/231644 Has IUBC been removed? (If yes, ensure the order is discontinued.) No, perioperative, or scheduled for return to OR within 48 hrs 08/02/231644 IUBC Tubing Disconnected This Shift? No 08/02/231644 Collection Container Standard drainage 08/02/231644 Urine Description Clear;Yellow 08/02/231644 Number of days: 0 Due to Void: n/a espinoza in place Integumentary:Integumentary WNL: X - Exceptions to WNL as documented below (08/02/231644) Skin Description: Dry;Warm (08/02/231644) Skin Color: Flesh Tone;Mucus Membranes [place];Nail beds pink (08/02/231644) Skin Lesion: Other - Describe (see below) (08/02/231644) Family updated on transfer: yes Additional Assessment Information: Per surgeons-espinoza removed tomorrow, strict NPO. Pt has been given mouth swabs to moisten mucous membranes in post-op. Admission complete, floor fluids hanging. * Hannah Storey RN - 08/02/2023 3:59 PM EST Dual Licensed Skin Assessment completed by Hannah Storey RN and Mariela Lucero RN. The patient is/has a N/A Skin Breakdown (includes non blanchable erythema): Yes - Surgical/Procedural changes only. 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 The patient is/has a N/A Skin Breakdown (includes non blanchable erythema): No R forearm scab * Tanya Thomsa RN - 07/29/2023 2:23 PM EST Presurgery instructions sent to patient via [employer] message. Pre-operative chart review completed-instructions provided based on current medication list in [facility] NO ANESTHESIA EVAL REQUESTED PER CASE DOCUMENTATION. PREOP PATIENT INFORMATION AND EDUCATION: MEDICATION INSTRUCTIONS: The day of surgery/procedure, you may TAKE the following medications with a sip of water up to 2 hours prior to your arrival time: -Tylenol if needed -Chlorpromazine if needed -Lorazepam if needed -Morphine if needed -Omeprazole -Pantoprazole -Zofran/Prochlorperazine if needed AVOID/ DO NOT TAKE any medications the morning of surgery/procedure that are not listed above. STOP taking the following medications the noted number of days prior to surgery/procedure unless otherwise specified by your surgeon: Please follow surgeon's instructions regarding use of Aspirin, Coumadin, Plavix, Eliquis, and any other blood thinner including NSAIDs (non-steroidal anti- inflammatory drugs, eg, Advil, Ibuprofen, Motrin, Aleve, Naproxen). 10 days prior to surgery/procedure Stop all Herbal supplements, Green Tea, Turmeric, Melatonin, CBD, THC, etc. Stop all Vitamins (including Vitamin E) 24 hours prior to surgery/procedure DO NOT consume any alcohol. DO NOT use medical marijuana. DO NOT smoke or use tobacco products of any kind after midnight prior to surgery. *Using any of these products may increase your risks of procedural complications. IF IT IS LESS THAN RECOMMENDED STOPPAGE TIME PLEASE STOP AT TIME OF NOTIFICATION. FASTING RECOMMENDATIONS: To reduce risk, it is important for all elective surgery patients to follow the specific fasting guidelines listed below. If you have received more stringent guidelines, please follow the MOST RESTRICTIVE guidelines that you have been provided. DO NOT EAT after midnight on the night prior to your surgery date. You are allowed to drink clear liquids up to two hours prior to arrival time to the hospital or surgery center. Examples of clear liquids include water, clear fruit juice without pulp, clear carbonated beverages, clear tea, and black coffee. Any drinks given by your surgical service take as directed. /pediatric patients who currently drink breast milk, infant formula, and non-human milk must not eat after midnight. These patients are allowed to drink only the liquids listed below up to two hours prior to arrival time to the hospital or surgery center: Ingested Material Minimum Fasting Time Clear liquid After midnight up to 2 hours prior to arrival time Breast milk Up to 4 hours prior to arrival time Infant formula Up to 6 hours prior to arrival time Non-human milk Up to 6 hours prior to arrival time THE DAY BEFORE YOUR SURGERY: -Drink plenty of fluid the day before your surgery. Contact your surgeon's office if you develop any of the following within 2 weeks of surgery: A cold Infection Fever Shingles Chicken pox or exposure to chicken pox Open areas such as scrapes, cuts, vogel or other skin conditions Rashes GENERAL INSTRUCTIONS FOR PREPARING FOR SURGERY: BATHING INSTRUCTIONS: Bathe the evening prior to and the morning of surgery/procedure. Cleanse your body using ONLY anti-bacterial soap (eg, Dial, Safeguard) or any specific soap/cleansers and instructions provided by your surgeon (eg, Chlorhexidine). -You should brush your teeth the morning of surgery. Do NOT apply any lotions, powders, sprays, creams, oils, make-up, or deodorants after bathing. No hairspray, or nail [place] on fingers or toes. Day of surgery/procedure do not use tampons. If you wear contacts wear your eyeglasses if available otherwise bring your contact supplies with you to remove them prior to your surgery/procedure. If you wear glasses or dentures, please bring cases in which you can store them during your surgery. Please remove all piercings and jewelry and leave them at home. Wear comfortable and loose clothing. -Please leave all valuables at home. -If you use a CPAP and are staying overnight, please bring your mask and tubing with you to the hospital. -If you use an assistive mobility device (walker, cane, etc), please label it with your name and bring to hospital. -An escort production truck driver is required if you are being discharged the same day of the surgery. You should have a responsible adult over the age of 18 [address] you home. This person should be present with youin the hospital at the time of discharge and for the first 24 hours after the surgery to support your needs. If you are taking a taxi home, you must have your responsible alliance party accompany you in the taxi ride home at the time of discharge. OR times subject to change. Please check voicemail messages the day/evening before your surgery forany updates. PRE-OP: You will be taken to the pre-op area where your vital signs (blood pressure, pulse and temperature)will be taken. Any preparations that need to be done will be done there. When it is time for your surgery, you will be taken to the operating room. PARENTS OF PEDIATRIC PATIENTS WILL BE ALLOWED TO STAY WITH THEIR CHILDREN UNTIL THEY ARE ESCORTED TO THE OPERATING ROOM OUTPATIENT SURGERY PATIENTS: After your surgery you will be taken to the Same Day Surgery Unit when you are awake and will go home from there. You will get instructions about your home care before you leave. Arrange to have someone drive you home from the hospital. You may not drive for 24 hours after anesthesia. You must havean adult stay with you at home for 24 hours after your operation. This is very important. If you are not able to comply with these guidelines, your Short Stay surgery cannot be done. ADMISSION PATIENTS: After your stay in the recovery area, you will be taken to your room. Your family may visit you in your room based on current visitation policy. If a next day discharge is expected, it is important to make arrangements for a production truck driver to take you home. Please be aware our visitation policies are subject to change Professionals, attendants, caregivers or family members are allowable visitors for patients with intellectual, developmental or cognitive disabilities, communication barriers or behavioral concerns. Because patients' and families' needs vary, they will be taken into account when applying visitation restrictions. ANESTHESIA INFORMATION This information has been prepared to help you and your family better understand the process of anesthesia, so that you may help make well-informed decisions about your care. This information is alsoprovided to guide your completion of the [facility] anesthesia consent form which addresses real, but infrequent, problems associated with anesthesia. IMPORTANT INFORMATION TO PREVENT YOUR SURGERY FROM BEING CANCELLED/ RESCHEDULED: --You are required to have a production truck driver to take you home whether you are admitted to the hospital following your surgery or not --You are required to have a responsible adult with you for the first 24 hours after surgery to support your needs Types of Anesthesia: Local Anesthesia Local anesthetic drugs (numbing drugs) are usually injected into the tissues to numb just the specific location of your body requiring minor surgery, such as an area of your hand or foot. Regional Anesthesia -Regional anesthesia involves the use of local anesthetics (numbing drugs) to numb larger areas of your body by blocking nerves to those areas. This is commonly referred to as a nerve block. Another way of performing regional anesthesia is by blocking nerves of the spinal cord by injecting numbing m edicines with great exactness around those nerves. This is called spinal or epidural anesthesia depending on exactly where the medication is injected. The type of regional anesthesia selected dependson the type of surgery and whether regional anesthesia is being done to help with pain after surgery or as a part of the anesthesia for surgery. You may remain awake, be sedated, or be given a general anesthetic depending on the type of surgery and the type of regional anesthesia performed Monitored Anesthesia Care (MAC) -Describes a range of sedation that can be given to a patient undergoing a procedure. The level of sedation usually depends on what is needed for the procedure being performed. A patient could be awake and aware of the procedure being performed but be relaxed and able to follow instructions as needed or may be unaware of what is happening and only rouse to significant stimulation. A patient may be able to speak, hear things around them, and answer questions and follow commands but is not in pain or anxious. A patient may experience varying depths of sedation during the procedure. The use of general anesthesia could result if this type of anesthesia is ineffective. General Anesthesia - Occurs by using a combination of medications to put a patient into a deep, sleep-like, unresponsive state for surgery. This is required for many surgical procedures. Under general anesthesia, a patient does not feel pain and is unaware of what is happening during the procedure. Systems in the body may not function normally while a patient is under general anesthesia. They are monitored by the anesthesia provider and may need to be assisted while a patient is under general anesthesia. For example, a breathing device may need to be placed in the airway to assist breathing and medications may need to be given to ensure that your blood pressure and heart rate remain normal. Risks of Anesthesia: Regional/Local/Nerve Blocks -Include but are not limited to, , cardiac or respiratory arrest, permanent complete paralysis, permanent nerve injury, seizure, spinal headache, backache, pain in buttocks and legs, infection, bleeding, leakage of spinal fluid, inadequate pain relief, bowel or bladder dysfunction, prolonged numbness or pain, temporary drop in blood pressure, or allergic reaction to the medications. Monitored Anesthesia Care (MAC) -Common risks include temporary dizziness, light-headedness, nausea and/or vomiting, and leakage ofintravenous fluid into the tissues with swelling or discoloration of the area or residual pain. Less common risks include, but are not limited to, , heart attack, permanent brain damage, stroke,pneumonia, blood clots, awareness, nerve stretch injury of your arm, neck or leg, permanent liver damage and allergic reaction to the medications. General Anesthesia -More common risks include temporary sore throat, pain in the neck or other muscles, dizziness, light-headedness, nausea and/or vomiting, and leakage of intravenous fluid into the tissues with swelling or discoloration of the area or residual pain. Less common risks include, but are not limited to,, heart attack, permanent brain damage, stroke, pneumonia, blood clots, irritation of the cornea of your eye, vision loss, loosened or broken teeth, or other oral injuries, awareness, nerve stretch injury of the arm, neck or leg, hoarseness, laryngospasm, permanent liver damage and allergic reaction to the medications. History of anesthesia complications: If you or a family member have had a complication related to anesthesia such as difficulty with placement of a breathing tube or a serious reaction to a medication administered for anesthesia, pleasetell your anesthesia provider. Having this information will help keep you safe while under anesthesia Nausea: A common side effect of anesthesia is nausea, but some patients do experience both nausea and vomiting. If you have experienced nausea or vomiting after anesthesia in the past, be sure to tell your anesthesia provider so medication can be given to help prevent it from happening again. Patient safety/consenting process: All surgical procedures and anesthetics have some small risks. They are dependent upon many factorsincluding the type of surgery and your medical condition. That is why it is important to know aboutany underlying medical problems, how they are treated and how they can be managed to reduce the risks of anesthesia and surgery. Thus, it is important for your anesthesia provider to ask detailed questions about your medical history, and to know what prescription medications you are taking, including dosages and schedules, as well as any over the counter or herbal medicines and supplements. You must notify the doctor of any of the following: -if you are or possibly -if you have any sensitivity to medications -present mental and physical condition -if recently consumed alcohol or non-clear liquids -if you are presently on psychiatric mood-altering drugs or other medications If you are a female of child-bearing age and you use any form of hormone-based contraception, please continue to use it and, in addition, use an alternative form of contraception, such as condoms andspermicide for a month after discharge from the hospital. This is because during the hospitalization you might receive one or more medications that may render hormone-based contraceptives ineffectivefor several days or weeks. The affected contraceptives include, but are not limited to, the usual contraceptive pills, most types of intrauterine devices, Depo-Provera shots, hormonal patches, and hormonal vaginal rings. If you are not sure, contact your primary care physician, your environmental services technician, or your surgeon to check if this warning applies to you. You may need to have invasive monitoring, which includes the insertion of catheters into your veinsand arteries. This is done to measure pressures, to take blood samples, and may be used in emergentsituations for intravenous access. This monitoring has risks including, but not limited to, injury to your arteries, lung collapse, bleeding, nerve injury as well as the risks related to anesthesia. An esophageal probe may be used to monitor your heart, this monitor has risks which include sore throat, hoarseness, difficulty with swallowing, loosened or broken teeth and esophageal injury. Major complications are rare but could include , respiratory distress, an abnormal heartbeat, infection, and bleeding. As part of the consent to administer anesthesia authorization you will discuss the following with the anesthesia doctor and his/her associates: -your present condition and diagnosis as it pertains to anesthesia or sedation administration -a description of the proposed anesthetic/sedation technique or procedure to be used -significant risks and benefits of the proposed anesthetic/sedation technique or procedure -any applicable alternatives, including their risks and benefits -if applicable, use of back-up method of contraception for 30 days after discharge -if applicable, the option of having no treatment and the potential results of this -if your procedure is in an outpatient surgery setting-the risk associated with having this procedure in this type of setting should be discussed as well as the potential need for transfer to the hospital if necessary Please be sure to have all questions that you have answered prior to signing the consent to administer anesthesia. You can make your care safer by being an active, informed patient. It is important that you are involved in your health care. Being a good patient does not mean being a silent one. If you have questions, problems, safety concerns or unmet needs, please let us know if you would like further clarification of the "Patient Rights and Responsibilities" as they pertain to you, or would like more information regarding our complaint and for grievance process, please call the site where you receive care and request to speak withthe patient advocate line. [facility]: Contact # [phone] Directions to Surgical Suite in from the [facility] Entrance The Surgical Waiting Room can be found in the Lobby of [facility]. Enter through Main Lobby Entrance and the Waiting Room is directly in front of you. Proceed to check in and give them your name. Directions to Surgical Suite from the East Entrance Enter the East entrance and follow the hallway to the J elevator. Take the J elevator up to Level 1. Continue down the long hallway to the main [facility] Lobby. The Surgical Waiting Room will be on your Right. Proceed to check in and give them your Name. Directions to Surgical Suite from the Parking Garage Enter the [facility] lobby and proceed down the orozco to the left. At the end of the orozco, turn right. Continue down the long hallway to the main [facility] Lobby. The Surgical Waiting Room will be on your Right. Proceed to check in and give them your Name. THANK YOU FOR CHOOSING [facility]! documented in this encounter OR Notes * OR Surgeon - Praveen Edmonds MD - 08/02/2023 3:12 PM EST OPERATIVE REPORT [facility] [address] [facility] [id number] Name: Parish Yoder Date: 08/02/2023 Time: 3:13 PM Location: [place] [facility] Service: Surgical Oncology Date of Operation: 08/02/2023 Pre-op Diagnosis: Siewert III gastric cancer Post-op Diagnosis: same Surgeon: Praveen Edmonds MD Assistants: Beth Topete MD Anesthesia: General endotracheal anesthesia Operation: Total gastrectomy with Trevin y esophago-jejunostomy Findings: No evidence of metastatic disease Specimens/Disposition: Tissue to Pathology Estimated Blood Loss: 50 ml IV fluids: 1500 ml of crystalloid 500 ml of colloid 0 units of blood 0 units of plasma Urine Output: 200 ml. Drains: none Apparent Intraoperative Complications: NONE Disposition: PACU - hemodynamically stable. Indications and History: PARISH YODER [id number] is a 58 year old male with gastric cancer. The proposed procedure was discussed in detail with the patient and family. All feasible options were reviewed with the appropriate indications and expected outcomes. While the usual outcome of elective surgery is an uncomplicated procedure, surgery is not without risk to the patient. Emergent surgical procedures, or surgery in the face of co-morbidities elevates the level of perioperative risk. No surgical procedure is without some baseline risk, and I ensured that the patient understood that surgical practice necessitates the acceptance of risk to the patient in return for clinical benefit. The option to not operate was discussed, but often this a not a realistic management plan. This was explained to the patient and/or family to their satisfaction. The general risks to any surgical procedure were discussed. The risk of surgical procedures includes, but is not limited to: bleeding, perioperative infection, cardiopulmonary problems, wound healingproblems, venous thromboembolism, inadvertent but unavoidable damage to nearby structures, persistent or recurrent disease processes, necessity for secondary procedures, reaction to medications, prolonged hospitalization, or even a slight risk of . I have explained the serious nature gastric surgery and the well-described morbidity rate in excess of 25% and mortality rate of up to 8% [facility]. Non-operative options were offered to the patient and family. They understand that gastrectomy is associated with potentially prolonged hospitalization and after-hospital care. The inability to maintain regular diet for extended periods of time, requiring feeding tube placement was outlined. Well-described risks of gastrectomy, regardless of technique include, but are not limited to: anastomotic leak or conduit necrosis and the need for secondary procedures; stricture and inability to tolerate po intake; respiratory failure requiring prolonged ventilatory support; cardiovascular complications including arrhythmia and/or ischemia; wound complications; feeding tube complications; intra- abdominal organ damage including spleen or colon; recurrence or persistence of the process(non-therapeutic procedure); chronic pain syndromes; and a small but definite risk of . After thorough consideration of the above, the patient and/or the appropriate legal small business representative gave written and verbal informed consent to the procedure. Description of Operation: The patient was seen in the Holding Room and the site of surgery properly noted/marked. The patientwas taken to the operating room, identified as PARISH YODER, [id number] and the procedure verified. A Time Out was held and the above information confirmed. Prior to the induction of anesthesia and skin incision, antibiotic prophylaxis and thromboprophylaxis was utilized. The positioning was supine. All pressure points were comfortably padded and inspected by myself and the anesthesia team. After the induction of anesthesia, the abdomen and chest wall were prepped widely as a sterile field. The patient seemed to tolerate general anesthesia and was hemodynamically stable throughout the case. A midline incision was made and the peritoneal cavity inspected for evidence of tumor. There was none. The stomach was intubated with an OG tube and decompressed. The duodenum was kocherized and the right gastric artery was ligated. The stomach was completely mobilized by dissection of the lesser and greater curvatures. The omentum was taken off of the colon and kept with the gastric specimen. The splenic flexure of the colon was completely taken down in order to dissect the lesser sac and preserve the splenic vessels. All vessels were double-ligated in continuity to devascularize the stomach. The esphago-gastric junction was then palpated after mobilizing the left lateral segment of the liver. The esophagus was encircled with a Osbaldo drain for upwards traction, and the left gastric arterypedicle was explored. The artery was suture ligated and divided with a complete mikie dissection en-bloc. The duodenum was divided just distal to the pylorus and the staple line over sewn with interrupted silk. Proximally, the esophagus was divided sharply after pulling back the gastric tube. A lymph node dissection encompassing the 1-6 mikie stations (abbi-gastric), left gastric, hepatic, peripancreatic and splenic artery mikie stations was performed (D2 dissection). Intestinal continuity was restored with a Trevin-en-Y esophago-jejunostomy by dividing the proximal jejunum just distal to the ligament of Treitz and dividing the mesentery of the small bowel down to the SMA. The mesenteric defect was closed and the blood supply to the trevin was seen to be excellent. The limb passed up to the esophageal hiatus in a retrocolic manner without difficulty and was seen to lay in a tension free manner. An esphago-jejunostomy was created with the #25 Orvil EEA. The mesocolic defect was closed with interrupted silk. Biliary continuity was re-established by anastomosing the proximal jejunum to the trevin limb about 50 cm downstream from the intestinal anastomosis. This was a side to side anastomosis. The sponge, needle and instrument count was then reported to me as being correct by the perioperative staff. The wound was thoroughly irrigated and the incision was then closed with absorbable suture, taking meticulous 2 cm bites of healthy fascia throughout the length of the wound; the skin was then closed with running absorbable suture and dermabond and a sterile dressing was applied. The patient was then awakened from anesthesia, extubated and taken to the recovery room in a stable condition, having suffered no apparent untoward event. Attestation: I was present and scrubbed for the entire procedure Praveen Edmonds MD Attending Surgeon Surgical Oncology and Endocrine Surgery [facility] [address] [place] [address] Office: [phone] [email or web address] documented in this encounter Miscellaneous Notes * Progress Notes - Post-Op [facility] - Shanna Donohue MD - 08/08/2023 5:43 AM EST PROGRESS NOTE - Surgical Oncology [facility] [address] Name: Parish Yoder [place] [facility] Date: 08/08/2023 Time: 5:43 AM DIAGNOSIS: Siewert III gastric cancer PROCEDURE: Total gastrectomy with Trevin-en-y esopago-jejunostomy DATE OF SURGERY: 08/02/2023 POST OP DAY: 6 SUBJECTIVE: No acute events overnight. Afebrile. Vital signs stable and within normal limits. Saturating well on room air. Had a bowel movement 08/07. Tolerating clear liquid diet. Denies nausea or vomiting. Denies abdominal pain. Would like to go home. OBJECTIVE: Most Recent Vital Signs: BP: 129 mmHg/81 mmHg (08/08/23410) Pulse: 74 (08/08/23410) Temp: 36.89 C (08/08/23410) Resp: 20 (08/08/23410) SpO2: 97 % (08/08/23410) Vital Signs Last 24 Hours: Systolic BP: Most Recent Systolic BP Av.7 mmHg Min: 129 mmHg Max: 141 mmHg Temperature: Most Recent Temperature Av.8 C Min: 36.61 C Max: 36.89 C Pulse: Pulse Av.5 Min: 69 Max: 75 Respirations: Resp Av Min: 16 Max: 20 SpO2: SpO2 Av % Min: 97 % Max: 100 % In / Out Past 24 Hrs: Intake/Output Summary (Last 24 hours) at 08/08/2023 0543 Last data filed at 08/08/2023 0300 Gross per 24 hour Intake 1216.67 ml Output 1275 ml Net -58.33 ml Physical Exam: General: no acute distress Head: normocephalic, atraumatic Eyes: extraocular movements intact ENT: oropharynx clear, mucus membranes moist Neck: supple, trachea midline CV: normal rate, regular rhythm Pulm: normal respiratory effort Surgical site:well approximated midline incision c/d/I. Abdomen: soft, nondistended, nontender Extremities: warm, well-perfused, no edema Skin: warm, dry, intact LABS: No results found for this or any previous visit (from the past 12 hour(s)). IMAGING: No postop imaging IMPRESSION: Principal Problem: 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 Active Problems: Malnutrition of moderate degree (HCC) On peripheral parenteral nutrition (ppn) Unintentional weight loss Hypomagnesemia Malignant neoplasm of stomach (HCC) Hyponatremia Hypophosphatemia Vitamin D insufficiency Iron deficiency anemia Hypokalemia Resolved Problems: * No resolved hospital problems. 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 Edmonds on 08/02. Doing well postoperatively. 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 Ma. Shanna Donohue MD [facility] General Surgery PGY-3 Associated attestation - Stevan Ma MD - 08/08/2023 10:01 AM EST I saw and evaluated the patient today. I have reviewed the trainee note and agree. * Care Plan - Mirta Romano RN - 08/08/2023 3:35 AM EST Clinical Goal(s): Pt will be free from injury this shift (08/07/231) Possible barriers to meeting goal(s)/advancing plan of care: Generalized weakness Stability of the patient: Moderately stable - low risk of patient condition declining or worsening Summary regarding today's goal(s): Met: Pt was free from injury this shift Recommendations: Continue with hourly rounding and fall precautions * Pt Handout (on AVS) - Shanna Donohue MD - 08/07/2023 1:09 PM EST Images from the original note were not included. [id number] Full Liquid Diet A full liquid diet is a middle step between a clear liquid diet and eating solid foods. A clear liquid diet allows only liquids you can see through. A full liquid diet allows thicker liquid foods, aslisted below. It can be anything that is liquid at room temperature. The full liquid diet may be used before or after surgery. Or it may be used if you have a digestive illness. It's also used beforesome medical tests. It's easy to digest and leaves little food in the stomach and intestines. A full liquid diet meets calorie and protein needs for your body with liquids only. If it's to be used for more than 5 days, your healthcare provider or dietitian may also order high-protein, high-calorie liquid supplements. These will give you extra vitamins and minerals. You may include the itemsbelow on a full liquid diet. Adults Adults should drink a total of 2 to 3 quarts of liquid per day. It may be easier to drink small frequent servings rather than a few large ones. People with severe kidney or heart disease may need to limit the amount of fluid they take in. Check with your provider. Cereals and soups. Creamy hot breakfast cereals (wheat or rice) thinned with milk, pureed soups (including pureed meats, bland vegetables, and white potatoes), tomato puree. Desserts. Gelatin, whipped topping, custard-style yogurt, pudding, custard, plain ice cream, sherbet, sorbet, frozen fruit juice bars. Drinks. Coffee, tea, cream, milk, milkshakes, fruit and vegetable juices, sodas, mineral water (plain or flavored), liquid gelatin, electrolyte replacement sports drinks. Other items. Salt, mild-flavored seasonings, chocolate flavoring, gravy, margarine, sugar, syrup, jelly, honey, hard candy (to suck on). Children Follow the healthcare provider?s instructions. Young children who are eating solid foods may be able to have the items listed above without problems. Be sure to follow these safety measures: Don't give hard candies to young children. The candies may cause choking. Children under 1 year old. Don't give cow's milk or honey. It may cause illness. Children under 2 years old. Ask your child?s provider if you should supplement your child?s dietwith oral rehydration solutions, which have electrolytes. You can buy these drinks at pharmacies and grocery stores. You don?t need a prescription. Children over 1 year old. Limit milk to 2 or 3 cups per day. Too much milk can make your child less hungry for other foods. Last Reviewed Date: 01/13/202219992121-8796 [employer]. All rights reserved. This information is not intended as a substitute for professional medical care. Always follow your healthcare professional's instructions. * Progress Notes - Post-Op [facility] - Shanna Donohue MD - 08/07/2023 6:14 AM EST PROGRESS NOTE - Surgical Oncology [facility] [address] Name: Parish Yoder [place] [facility] Date: 08/07/2023 Time: 6:14 AM DIAGNOSIS: Siewert III gastric cancer PROCEDURE: Total gastrectomy with Trevin-en-y esopago-jejunostomy DATE OF SURGERY: 08/02/2023 POST OP DAY: 5 SUBJECTIVE: No acute events overnight. Afebrile. Vital signs stable and within normal limits. Saturating well on room air. Patient had a bowel movement on 08/06. Taking sips of clear liquids and tolerating well so far. Patient reports that he is feeling very anxious and claustrophobic. OBJECTIVE: Most Recent Vital Signs: BP: 140 mmHg/90 mmHg (08/07/23327) Pulse: 79 (08/07/23327) Temp: 37.28 C (08/07/23327) Resp: 3 (08/07/23327) SpO2: 99 % (08/07/23327) Vital Signs Last 24 Hours: Systolic BP: Most Recent Systolic BP Av.8 mmHg Min: 132 mmHg Max: 149 mmHg Temperature: Most Recent Temperature Av.2 C Min: 36.78 C Max: 37.5 C Pulse: Pulse Av Min: 76 Max: 83 Respirations: Resp Av.7 Min: 3 Max: 20 SpO2: SpO2 Av.3 % Min: 99 % Max: 100 % In / Out Past 24 Hrs: Intake/Output Summary (Last 24 hours) at 08/07/2023 0614 Last data filed at 08/07/2023 0500 Gross per 24 hour Intake 1865.85 ml Output 950 ml Net 915.85 ml Physical Exam: General: no acute distress Head: normocephalic, atraumatic Eyes: extraocular movements intact ENT: oropharynx clear, mucus membranes moist Neck: supple, trachea midline CV: normal rate, regular rhythm Pulm: normal respiratory effort Surgical site:well approximated midline incision c/d/I. Abdomen: soft, nondistended, nontender Extremities: warm, well-perfused, no edema Skin: warm, dry, intact LABS: Recent Results (from the past 12 hour(s)) BASIC METABOLIC PANEL Collection Time: 08/07/23 6:34 AM Result Value Ref Range BUN 16 6 - 20 mg/dL Creatinine 0.5 (L) 0.6 - 1.2 mg/dL Estimated Glomerular Filtration Rate >90 >=60 mL/min Sodium 131 (L) 135 - 146 mmol/L Potassium 4.5 3.5 - 5.1 mmol/L Chloride 99 98 - 107 mmol/L CO2 22 22 - 32 mmol/L Anion Gap 10 7 - 15 mmol/L Glucose 117 70 - 120 mg/dL Calcium 9.6 8.4 - 10.2 mg/dL CBC Collection Time: 08/07/23 6:34 AM Result Value Ref Range WBC 10.71 4.00 - 10.80 K/uL RBC 3.40 4.50 - 5.25 M/uL HGB 9.7 (L) 14.0 - 16.8 g/dL HCT 30.0 (L) 40.0 - 48.4 % MCV 88.2 82.0 - 99.5 fL MCH 28.5 27.0 - 34.0 pg MCHC 32.3 32.0 - 36.0 g/dL RDW 18.4 11.5 - 15.5 % PLT 304 140 - 400 K/uL MPV 10.0 6.6 - 11.1 fL nRBCs 0 <=0 /100 WBCs MAGNESIUM Collection Time: 08/07/23 6:34 AM Result Value Ref Range Magnesium 1.8 1.5 - 2.6 mg/dL PHOSPHORUS Collection Time: 08/07/23 6:34 AM Result Value Ref Range Phosphorus 3.9 2.5 - 4.8 mg/dL IMAGING: No postop imaging IMPRESSION: Principal Problem: 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 Active Problems: Malnutrition of moderate degree (HCC) On peripheral parenteral nutrition (ppn) Unintentional weight loss Hypomagnesemia Malignant neoplasm of stomach (HCC) Hyponatremia Hypophosphatemia Vitamin D insufficiency Iron deficiency anemia Hypokalemia Resolved Problems: * No resolved hospital problems. 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 Edmonds on 08/02. Doing well postoperatively. 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 Ma. Shanna Donohue MD [facility] General Surgery PGY-3 Associated attestation - Stevan Ma MD - 08/07/2023 1:32 PM EST I saw and evaluated the patient today. I have reviewed the trainee note and agree. * Care Plan - Mirta Romano RN - 08/07/2023 5:40 AM EST Clinical Goal(s): Pt will be free from injury this shift (08/06/23 2300) Possible barriers to meeting goal(s)/advancing plan of care: Generalized weakness Stability of the patient: Moderately stable - low risk of patient condition declining or worsening Summary regarding today's goal(s): Met: Pt was free from injury this shift Recommendations: Continue with hourly rounding and fall precautions * Progress Notes - Post-Op [facility] - Shanna Donohue MD - 08/06/2023 6:23 AM EST PROGRESS NOTE - Surgical Oncology [facility] [address] Name: Parish Yoder [place] [facility] Date: 08/06/2023 Time: 6:23 AM DIAGNOSIS: Siewert III gastric cancer PROCEDURE: Total gastrectomy with Trevin-en-y esopago-jejunostomy DATE OF SURGERY: 08/02/2023 POST OP DAY: 4 SUBJECTIVE: No acute events overnight. Afebrile. Vital signs stable. Saturating well on room air. Passing flatus. Small burps this morning. Denies nausea or vomiting. Has been up and walking. OBJECTIVE: Most Recent Vital Signs: BP: 123 mmHg/70 mmHg (08/06/23313) Pulse: 88 (08/06/23 0400) Temp: 36.89 C (08/06/23313) Resp: 16 (08/06/23313) SpO2: 98 % (08/06/23313) Vital Signs Last 24 Hours: Systolic BP: Most Recent Systolic BP Av.4 mmHg Min: 113 mmHg Max: 163 mmHg Temperature: Most Recent Temperature Av C Min: 36.78 C Max: 37.5 C Pulse: Pulse Av.1 Min: 82 Max: 93 Respirations: Resp Av Min: 16 Max: 22 SpO2: SpO2 Av.2 % Min: 97 % Max: 100 % In / Out Past 24 Hrs: Intake/Output Summary (Last 24 hours) at 08/06/2023 0623 Last data filed at 08/06/2023 0500 Gross per 24 hour Intake 1920.07 ml Output 2500 ml Net -579.93 ml Physical Exam: General: no acute distress Head: normocephalic, atraumatic Eyes: extraocular movements intact ENT: oropharynx clear, mucus membranes moist Neck: supple, trachea midline CV: normal rate, regular rhythm Pulm: normal respiratory effort Surgical site:well approximated midline incision c/d/I. Abdomen: soft, nondistended, nontender Extremities: warm, well-perfused, no edema Skin: warm, dry, intact LABS: AM labs pending IMAGING: No postop imaging IMPRESSION: Active Problems: Malnutrition of moderate degree (HCC) On peripheral parenteral nutrition (ppn) Unintentional weight loss 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 Hypomagnesemia Malignant neoplasm of stomach (HCC) Hyponatremia Hypophosphatemia Vitamin D insufficiency Iron deficiency anemia Hypokalemia Resolved Problems: * No resolved hospital problems. 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 Edmonds on 08/02. Doing well postoperatively. PLAN: - Strict NPO - Pain control: IV tylenol, dilaudid - Nausea control: compazine prn, tigan prn - DVT ppx: SCDs, lovenox - Appreciate nutrition assistance: PPN until diet resumed - Plan to advance diet to clears 08/07, then fulls on 08/08 - Plan to discharge patient on full liquid diet - Encourage ambulation Patient examined and discussed with Dr. Ma. Shanna Donohue MD [facility] General Surgery PGY-3 Associated attestation - Stevan Ma MD - 08/06/2023 1:02 PM EST I saw and evaluated the patient today. I have reviewed the trainee note and agree. * Care Plan - Xi Moore RN - 08/06/2023 2:50 AM EST Clinical Goal(s): pt will be free from s/s of infection (08/05/23 0900) Possible barriers to meeting goal(s)/advancing plan of care: IV site in use, incision site in healing process. Stability of the patient: Moderately unstable - medium risk of patient condition declining or worsening Summary regarding today's goal(s): Met: No s/s of infection. Recommendations: Continue current plan of care. * Ancillary Progress Note - Liz Stanley RN - 08/05/2023 11:23 AM EST CARE MANAGEMENT - ADULT TRANSITION NOTE [facility] [address] Name: Parish Yoder Location: [facility] Date: 08/05/2023 Time: 11:23 AM Risk Stratification Risk Stratification Psycho Social / Medical Concerns Identified: Adjustment to illness/injury (08/03/23 1139) Readmission Risk Score: 17.49 (08/05/23 0801) AM-PAC Score With Stairs : 24 (08/03/23 2200) Caregiver Information Patient Contacts Name Relation Home Work Mobile JG SALVADOR Spouse [phone] Cindy Thomas Sibling [phone] Fabricio Yoder Sibling [phone] Transition of Care Checklist Transition of Care Checklist (aka Readmission Risk Score) Discharge Disposition: Home (08/03/23 113) Home or Home w/Home Health: Moderate (12-17%) (08/03/23 113) Narrative: 0830 Pt discussed during IDT rounds with attending service. As per attending service pt is not medically ready R/T NPO, CLD 08/07 and Full liquid diet 08/08 with a possible discharge 08/08. Anticipated Transportation at Discharge: family Patient/Family Expectations: home Transition Planning Transition Planning Insurance Considerations: N/A (08/03/231138) Additional Considerations: Care Management will continue to monitor and assist with discharge planning needs * Pt Handout (on AVS) - Claire Velazquez [facility] - 08/05/2023 10:57 AM EST Images from the original note were not included. [id number] Enoxaparin Prefilled Syringe Brands: Lovenox Uses This medicine is used for the following purposes: heart attack prevent blood clots treatment of blood clots Instructions This medicine is injected into the skin. Ask your doctor, nurse, or pharmacist where on your body this medicine can be injected and how to inject it. Do not mix this medicine with other solutions. Always inspect the medicine before using. The liquid should be clear or light yellow. Check the medicine before each use. If the liquid medicine has any particles in it, appears discolored, or if the vial appears damaged, do not use it. Keep medicine at room temperature. Protect from light. Never use any medicine that has . Change the location of the injection each time. Choose a location at least 1 inch from the last injection. Drug interactions can change how medicines work or increase risk for side effects. Tell your healthcare providers about all medicines taken. Include prescription and [id number] medicines, vitamins, and herbal medicines. Speak with your doctor or pharmacist before starting or stopping any medicine. Talk to your doctor before taking other medicines, including aspirins and ibuprofen containing products. Speak to your doctor about which medicines are safe to use while you are on this medicine. It is very important that you follow your doctor's instructions for all blood tests. Cautions This medicine may cause serious bleeding from the stomach or bowels. Stop this medicine and call your doctor immediately if you see any signs of bleeding. Bleeding can cause pain in the stomach, vomiting up liquid that looks like coffee grounds, and red or dark tarry stools. There is an increased risk of bleeding while on this medicine, please tell your doctor or nurse if you notice any excessive bleeding or bruising. Do not use the medication any more than instructed. Tell the doctor or pharmacist if you are , planning to be , or . Ask your pharmacist how to properly throw away used needles or syringes. Do not share this medicine with anyone who has not been prescribed this medicine. Side Effects The following is a list of some common side effects from this medicine. Please speak with your doctor about what you should do if you experience these or other side effects. unusual bruising or discoloration on skin swelling of the legs, feet, and hands fever pain, redness, swelling near injection nausea red, burning, or itchy skin Call your doctor or get medical help right away if you notice any of these more serious side effects: confusion nosebleeds bloody or dark, tarry stools A few people may have an allergic reaction to this medicine. Symptoms can include difficulty breathing, skin rash, itching, swelling, or severe dizziness. If you notice any of these symptoms, seek medical help quickly. Extra Please speak with your doctor, nurse, or pharmacist if you have any questions about this medicine. [email or web address] IMPORTANT NOTE: This document tells you briefly how to take your medicine, but it does not tell youall there is to know about it. Your doctor or pharmacist may give you other documents about your medicine. Please talk to them if you have any questions. Always follow their advice. There is a more complete description of this medicine available in [employer]. Scan this code on your smartphone or tablet or use the web address below. You can also ask your pharmacist for a printout. If you have any questions, please ask your pharmacist. The display and use of this drug information is subject to Terms of Use. Copyright(c) 2022 [employer]. [id number] [employer]. All rights reserved. This information is not intended as a substitute for professional medical care. Always follow your healthcare professional's instructions. * Pt Handout (on AVS) - Claire Velazquez RPh - 08/05/2023 10:57 AM EST Images from the original note were not included. Enoxaparin: How to Inject a Dose Subcutaneously with the Prefilled Syringe - Video Let's take a minute to talk about how to inject a dose of enoxaparin. This medicine comes in a prefilled syringe with a very small needle. You will inject the dose into the natural layer of fat just under the skin. To view the video go to this web address: [email or web address]://[email or web address] Or, scan this QR code with your smart phone 2022 [employer] / [employer]. All Rights Reserved. * Pt Handout (on AVS) - Claire Velazquez RPh - 08/05/2023 10:57 AM EST Images from the original note were not included. Enoxaparin - Video Let's take a minute to talk about your medication. This is enoxaparin. It's given as an injection. To view the video go to this web address: [email or web address] Or, scan this QR code with your smart phone 2022 [employer]. All Rights Reserved. * Progress Notes - Post-Op Parker - Gene Solis DO - 08/05/2023 5:44 AM EST PROGRESS NOTE - Surgical Oncology [facility] [address] Name: Parish Yoder [place] [facility] Date: 08/05/2023 Time: 5:44 AM DIAGNOSIS: Siewert III gastric cancer PROCEDURE: Total gastrectomy with Trevin-en-y esopago-jejunostomy DATE OF SURGERY: 08/02/2023 POST OP DAY: 3 SUBJECTIVE: No acute events overnight. Patient afebrile vital signs stable. Able to void once espinoza removed. Nausea has improved and he is passing gas. He has been making adequate urine after starting PPN. OBJECTIVE: Most Recent Vital Signs: BP: 155 mmHg/88 mmHg (08/05/23334) Pulse: 90 (08/05/23334) Temp: 37.39 C (08/05/23334) Resp: 16 (08/05/23334) SpO2: 97 % (08/05/23334) Vital Signs Last 24 Hours: Systolic BP: Most Recent Systolic BP Av.7 mmHg Min: 134 mmHg Max: 156 mmHg Temperature: Most Recent Temperature Av.3 C Min: 37 C Max: 37.72 C Pulse: Pulse Av.2 Min: 87 Max: 99 Respirations: Resp Av.3 Min: 16 Max: 18 SpO2: SpO2 Av.3 % Min: 97 % Max: 99 % In / Out Past 24 Hrs: Intake/Output Summary (Last 24 hours) at 08/05/2023 0544 Last data filed at 08/05/2023 0335 Gross per 24 hour Intake 200 ml Output 3175 ml Net -2975 ml Physical Exam: General: no acute distress Head: normocephalic, atraumatic Eyes: extraocular movements intact ENT: oropharynx clear, mucus membranes moist Neck: supple, trachea midline CV: normal rate, regular rhythm Pulm: normal respiratory effort Surgical site:well approximated midline incision c/d/I. Abdomen: soft, nondistended, nontender Extremities: warm, well-perfused, no edema Skin: warm, dry, intact Incisions are clean, dry and intact without drainage. LABS: AM labs pending IMAGING: No postop imaging to review Sutures/sheldon to be removed?: no sutures to be removed Central line to be removed or continued?: patient does not have central venous access Current DVT/PE prophylaxis is?: sequential compression devices (SCD's) and lovenox Current stress ulcer prophylaxis is?: none Medication administration record reviewed this visit?: Yes IMPRESSION: Active Problems: Malnutrition of moderate degree (HCC) On peripheral parenteral nutrition (ppn) Unintentional weight loss 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 Hypomagnesemia Malignant neoplasm of stomach (HCC) Hyponatremia Hypophosphatemia Vitamin D insufficiency Iron deficiency anemia Resolved Problems: * No resolved hospital problems. 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 Edmonds on 08/02. Doing well postoperatively. PLAN: - Strict NPO - Appreciate nutrition assistance: PPN until resume diet 08/07pm - Postop pain control with IV tylenol, prn dilaudid - Nausea control improved with scheduled tigan, prn compazine. Patient was seen and will be discussed with Dr. Edmonds Associated attestation - Praveen Edmonds MD - 08/05/2023 10:42 AM EST I saw and evaluated the patient today. I have reviewed the trainee note and agree. NPO Clears on 08/07 if he continues as he is currently Fulls on 08/08 DC Planning for 08/08 if he is doing ok * Care Plan - Xi Moore RN - 08/05/2023 5:22 AM EST Clinical Goal(s): patient will have adequate pain control during this shift. (08/03/232199) Possible barriers to meeting goal(s)/advancing plan of care: incisional pain increases with activity Stability of the patient: Moderately unstable - medium risk of patient condition declining or worsening Summary regarding today's goal(s): Met: Pain controlled with meds. Recommendations: Continue to encourage to call for pain meds prn. * Ancillary Progress Note - Liz Stanley RN - 08/04/2023 11:44 AM EST CARE MANAGEMENT - ADULT TRANSITION NOTE [facility] [address] Name: Parish Yoder [place] [facility] Date: 08/04/2023 Time: 11:45 AM Risk Stratification Risk Stratification Psycho Social / Medical Concerns Identified: Adjustment to illness/injury (08/03/231138) Readmission Risk Score: 15.77 (08/04/23 0800) AM-PAC Score With Stairs : 24 (08/03/232199) Caregiver Information Patient Contacts Name Relation Home Work Mobile JG SALVADOR Spouse [phone] Cindy Thomas Sibling [phone] Fabricio Yoder Sibling [phone] Transition of Care Checklist Transition of Care Checklist (aka Readmission Risk Score) Discharge Disposition: Home (08/03/23 113) Home or Home w/Home Health: Moderate (12-17%) (08/03/23 113) Narrative: 0830 Pt discussed during IDT rounds with attending service. As per the attending servicept is not medically ready R/T NPO, currently on PPN and will resume diet 08/07. Pt will not need TPN at discharge as per the attending service. Anticipated Transportation at Discharge: family Patient/Family Expectations: home Transition Planning Transition Planning Insurance Considerations: N/A (08/03/23 3027) Additional Considerations: Care Management will continue to monitor and assist with discharge planning needs * Progress Notes - Post-Op Global - Beth Topete MD - 08/04/2023 7:59 AM EST PROGRESS NOTE - Surgical Oncology [facility] [address] Name: Parish Yoder [place] [facility] Date: 08/04/2023 Time: 7:59 AM DIAGNOSIS: Siewert III gastric cancer PROCEDURE: Total gastrectomy with Trevin-en-y esopago-jejunostomy DATE OF SURGERY: 08/02/2023 POST OP DAY: 2 SUBJECTIVE: No acute events overnight. Patient afebrile vital signs stable. Able to void once espinoza removed. States he is having persistent nausea. Attributes it to PPN but per MAR and nursing staff he required zofran and compazine prior to initiation of PPN. We discussed alternative regimens and he is amenable to trying something different today. OBJECTIVE: Most Recent Vital Signs: BP: 136 mmHg/80 mmHg (08/04/23317) Pulse: 91 (08/04/23317) Temp: 36.56 C (08/04/23317) Resp: 17 (08/04/23317) SpO2: 94 % (08/04/23317) Vital Signs Last 24 Hours: Systolic BP: Most Recent Systolic BP Av mmHg Min: 107 mmHg Max: 136 mmHg Temperature: Most Recent Temperature Av.8 C Min: 36.56 C Max: 37 C Pulse: Pulse Av Min: 80 Max: 94 Respirations: Resp Av.5 Min: 14 Max: 17 SpO2: SpO2 Av.5 % Min: 94 % Max: 99 % In / Out Past 24 Hrs: Intake/Output Summary (Last 24 hours) at 08/04/2023 0758 Last data filed at 08/04/2023 0300 Gross per 24 hour Intake -- Output 1150 ml Net -1150 ml Physical Exam: General: no acute distress Head: normocephalic, atraumatic Eyes: extraocular movements intact ENT: oropharynx clear, mucus membranes moist Neck: supple, trachea midline CV: normal rate, regular rhythm Pulm: normal respiratory effort Surgical site:well approximated midline incision c/d/I. Abdomen: soft, nondistended, appropriately tender Extremities: warm, well-perfused, no edema Skin: warm, dry, intact LABS: AM labs pending IMAGING: No postop imaging to review Sutures/sheldon to be removed?: no sutures to be removed Central line to be removed or continued?: patient does not have central venous access Current DVT/PE prophylaxis is?: sequential compression devices (SCD's) and lovenox Current stress ulcer prophylaxis is?: none Medication administration record reviewed this visit?: Yes IMPRESSION: Active Problems: On peripheral parenteral nutrition (ppn) Unintentional weight loss 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 Hypomagnesemia Malignant neoplasm of stomach (HCC) Resolved Problems: * No resolved hospital problems. 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 Edmonds on 08/02. Doing well postoperatively. PLAN: - Strict NPO - Appreciate nutrition assistance: PPN until resume diet 12/24pm - Postop pain control with IV tylenol, prn dilaudid - Nausea control with scheduled tigan, prn compazine. Will add scopolamine patch if persists Patient was seen and will be discussed with Dr. Kendal Topete MD 08/04/2023 8:00 AM * Care Plan - Gilberto Cruz RN - 08/04/2023 5:41 AM EST Clinical Goal(s): patient will have adequate pain control during this shift. (08/03/23 2200) Possible barriers to meeting goal(s)/advancing plan of care: patient's illness Stability of the patient: Moderately unstable - medium risk of patient condition declining or worsening Summary regarding today's goal(s): Patient had a difficult night. C/o nausea and vomiting, reports Zofran doesn't help. Administered Compazine prn, but patient c/o nausea and vomiting. Patient also c/o severe abdominal pain, administered Dilaudid 0.5 mg x 1, prn. Patient appears to be in distress, but he is refusing additional pain medicine at this time. Encourage him to call for pain medicine prn for pain. Recommendations: monitor for increase nausea/vomiting. * Ancillary Progress Note - Omari Morales RN - 08/03/2023 11:40 AM EST CARE MANAGEMENT - ADULT TRANSITION NOTE [facility] [address] Name: Parish Yoder [place] [facility] Date: 08/03/2023 Time: 11:40 AM Risk Stratification Risk Stratification Psycho Social / Medical Concerns Identified: Adjustment to illness/injury (08/03/23 113) Readmission Risk Score: 14.48 (08/03/23 0800) AM-PAC Score With Stairs : 24 (08/03/23 0958) Caregiver Information Patient Contacts Name Relation Home Work Mobile JG SALVADOR Spouse [phone] Cindy Thomas Sibling [phone] Fabricio Yoder Sibling [phone] Transition of Care Checklist Transition of Care Checklist (aka Readmission Risk Score) Discharge Disposition: Home (08/03/23 113) Home or Home w/Home Health: Moderate (12-17%) (08/03/23 113) Narrative: Chart reviewed. Patient discussed with Quoc Lee . No Care Management needs identified at this time. Care Management will continue to follow. Pt discussed in IDT Rounds today. Not medically ready for discharge. S/p Total gastrectomy with Trevin-en-y esopago-jejunostomy 08/02/2023 PT evaluated today. 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 NPO with IVF infusing. Anticipated discharge to home when medically ready. CM following for arising discharge needs Please contact CM with any further concerns. Anticipated Transportation at Discharge: family Patient/Family Expectations: home Transition Planning Transition Planning Insurance Considerations: N/A (08/03/23 1139) Additional Considerations: none Care Management will continue to monitor and assist with discharge planning needs * Care Plan - Rowdy Gaytan RN - 08/03/2023 6:25 AM EST Problem: Pain & Impaired Comfort Goal: Patient's pain & discomfort is manageable. Outcome: Progressing Clinical Goal(s): Pain control. (08/02/23 2300) Possible barriers to meeting goal(s)/advancing plan of care: None Stability of the patient: Moderately stable - low risk of patient condition declining or worsening Summary regarding today's goal(s): Met: Recommendations: Continue to follow Care Plan. * Progress Notes - Post-Op Global - Beth Topete MD - 08/03/2023 5:16 AM EST PROGRESS NOTE - Surgical Oncology [facility] [address] Name: Parish Yoder [place] [facility] Date: 08/03/2023 Time: 5:16 AM DIAGNOSIS: Siewert III gastric cancer PROCEDURE: Total gastrectomy with Trevin-en-y esopago-jejunostomy DATE OF SURGERY: 08/02/2023 POST OP DAY: 1 SUBJECTIVE: No acute events overnight. Patient afebrile vital signs stable. Patient having minimal discomfort, required 1x dose of dilaudid. OBJECTIVE: Most Recent Vital Signs: BP: 122 mmHg/78 mmHg (08/03/23 0340) Pulse: 84 (08/03/23 0340) Temp: 36.39 C (08/03/23 0340) Resp: 12 (08/03/23 0340) SpO2: 97 % (08/03/23 0340) Vital Signs Last 24 Hours: Systolic BP: Most Recent Systolic BP Av.1 mmHg Min: 103 mmHg Max: 143 mmHg Temperature: Most Recent Temperature Av.1 C Min: 35.78 C Max: 36.39 C Pulse: Pulse Av.6 Min: 70 Max: 88 Respirations: Resp Av.7 Min: 9 Max: 19 SpO2: SpO2 Av.1 % Min: 94 % Max: 100 % In / Out Past 24 Hrs: Intake/Output Summary (Last 24 hours) at 08/03/2023 0516 Last data filed at 08/03/2023 0400 Gross per 24 hour Intake 1500 ml Output 810 ml Net 690 ml Physical Exam: General: no acute distress Head: normocephalic, atraumatic Eyes: extraocular movements intact ENT: oropharynx clear, mucus membranes moist Neck: supple, trachea midline CV: normal rate, regular rhythm Pulm: normal respiratory effort Surgical site:well approximated midline incision c/d/I. With some bruising at inferior aspect Abdomen: soft, nondistended, appropriately tender Extremities: warm, well-perfused, no edema Skin: warm, dry, intact LABS: AM labs pending IMAGING: No postop imaging to review Sutures/sheldon to be removed?: no sutures to be removed Central line to be removed or continued?: patient does not have central venous access Current DVT/PE prophylaxis is?: sequential compression devices (SCD's) and lovenox Current stress ulcer prophylaxis is?: none Medication administration record reviewed this visit?: Yes IMPRESSION: Active Problems: * No active hospital problems. * Resolved Problems: * No resolved hospital problems. 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 Edmonds on 08/02. Doing well postoperatively. PLAN: Xochitl saunders Will have PT/OT work with patient to get him out of bed and moving today - Strict NPO - Isolyte @ 100 mL/hr - Postop pain control with IV tylenol, prn dilaudid - Nausea control with zofran and compazine Patient was seen and will be discussed with Dr. Kendal Topete MD 08/03/2023 6:49 AM Associated attestation - Praveen Edmonds MD - 08/03/2023 1:27 PM EST I saw and evaluated the patient today. I have reviewed the trainee note and agree. NPO/OOB * Progress Notes - Non-Billable - Alba Mercado MD - 08/02/2023 7:48 PM EST PROGRESS NOTE - Surgical Oncology [facility] [address] Name: Parish Yoder [place] [facility] Date: 08/02/2023 Time: 7:49 PM DIAGNOSIS: Siewert III gastric cancer PROCEDURE: Total gastrectomy with Trevin-en-y esopago-jejunostomy DATE OF SURGERY: 08/02/2023 POST OP DAY: Day of Surgery - POC SUBJECTIVE: Patient resting comfortably in bed. Pain is well-controlled. Says his mouth is really dry. Denies chest pain, SOB, nausea, vomiting. Has not yet voided, has not yet ambulated. OBJECTIVE: Most Recent Vital Signs: BP: 119 mmHg/82 mmHg (08/02/231838) Pulse: 86 (08/02/231838) Temp: 35.78 C (08/02/231838) Resp: 14 (08/02/231838) SpO2: 97 % (08/02/231838) Vital Signs Last 24 Hours: Systolic BP: Most Recent Systolic BP Av.3 mmHg Min: 103 mmHg Max: 143 mmHg Temperature: Most Recent Temperature Av C Min: 35.78 C Max: 36.39 C Pulse: Pulse Av.1 Min: 70 Max: 88 Respirations: Resp Av.6 Min: 9 Max: 19 SpO2: SpO2 Av.3 % Min: 94 % Max: 100 % In / Out Past 24 Hrs: Intake/Output Summary (Last 24 hours) at 08/02/2023 194 Last data filed at 08/02/2023 1544 Gross per 24 hour Intake 1500 ml Output 185 ml Net 1315 ml Physical Exam: General: no acute distress Head: normocephalic, atraumatic Eyes: extraocular movements intact ENT: oropharynx clear, mucus membranes moist Neck: supple, trachea midline CV: normal rate, regular rhythm Pulm: normal respiratory effort Abdomen: soft, nondistended, appropriately tender Extremities: warm, well-perfused, no edema Skin: warm, dry, intact LABS: No postop labs to review IMAGING: No postop imaging to review Sutures/sheldon to be removed?: no sutures to be removed Central line to be removed or continued?: patient does not have central venous access Current DVT/PE prophylaxis is?: sequential compression devices (SCD's) and lovenox Current stress ulcer prophylaxis is?: none Medication administration record reviewed this visit?: Yes IMPRESSION: Active Problems: * No active hospital problems. * Resolved Problems: * No resolved hospital problems. 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 Edmonds on 08/02. Doing well postoperatively. PLAN: - Strict NPO - Isolyte @ 100 mL/hr - Postop pain control with IV tylenol, prn dilaudid - Nausea control with compazine Alba Mercado MD General Surgery, PGY1 [facility] 08/02/2023 7:49 PM * Respiratory Progress Note - Philomena Bonner RRT - 08/02/2023 7:30 PM EST PATIENT DRIVEN PROTOCOL - Respiratory Care Services [address] [address] Name: Parish Yoder [place] [facility] Date: 08/02/2023 Time: 7:30 PM Patient Driven Protocol Summary: Initial evaluation performed. This Treatment Plan and medications will be reviewed by the Primary Care Team for any contraindications. Respiratory Care Treatment Plan Pulmonary Volume Expansion Therapy: Incentive Spirometry PRN to prevent or treat alveolar consolidation and atelectasis. . Secretion Management Treatment: Flutter TherapyPRN to enhance mobilization of secretions. . The patient will be re-evaluated: No re-evaluation needed. Indications for treatment met. The Triage Level is: (Assessment Score = 6 -10) Level 4. Triage Level Definitions: Level 1 Severe Respiratory/Airway Compromise Level 2 Moderate Respiratory/Airway Compromise or high risk for pulmonary complications Level 3 Mild Respiratory/Airway Compromise or moderate risk for pulmonary complications Level 4 Episodic Respiratory/Airway Compromise or low risk for pulmonary complications Level 5 No Respiratory/Airway Compromise Triage 1 Triage 2 Triage 3 Triage 4 Triage 5 greater than 20 16 - 20 11 - 15 6 - 10 0 - 5 Medical Record Assessment Clinical Findings Pulmonary Status: 0 - No History Surgical Status: 3 - Thoracic or Upper Abdominal Chest X-Ray: 0 - Not Performed or performed greater than 3 days ago Assessment Score: 3 Patient Assessment Clinical Findings Respiratory Pattern: 0 - RR 12 - 20; Patient only gets breathless with strenuous exercise. Breath Sounds: 2 - Diminished bilaterally Cough Effectiveness: 0 - Strong non-productive Sputum Production: 0 - No sputum production Level of Activity: 2 - Temporarily non-ambulatory O2 needed to keep SpO2 greater than or equal to 92%: 0 - Room Air Assessment Score: 4 Total Assessment Score: 7 Breath Sounds: Inspiratory and expiratory diminished bilaterally.. Cough and Sputum: An effective cough produced no sputum... CXR: n/a. Vital Signs: Resp: 14 (08/02/231838) Pulse: 86 (08/02/231838) Temp: 35.8 C (96.4 F) (08/02/231838) BP: 119/82 (08/02/231838) SpO2: 97 % (08/02/231838) PFT: Minimal Predicted IC: 1.14 L. Inspiratory capacity: 1.5 L. Primary Service: Surgery Blue. 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 Prescriptions/Home Medications/Durable Medical Equipment: none . documented in this encounter Plan of Treatment Upcoming Encounters Date Type Department Care Team (Late st Contact Info) Description 08/17/2023 3:20 PM EST Telemedicine General [address] [address] Praveen Edmonds MD [address] [place] [address] 09/13/2023 8:45 AM EST Office Visit Hematology/Oncology [facility] [address] [place] [address] Cipriano Kuhn MD [address] [facility] [place] [address] 09/13/2023 9:15 AM EST Immunization/Injection Hematology/Oncology Treatment, [place] [address] [place] [facility] [place] [address] Nurse, Med 4 [address] [place] [address] Pending Results Name Type Priority Associated Diagnoses Date /Time VITAMIN E (TOCOPHEROL) Lab Routine 4:56 PM EST Scheduled Orders Name Type Priority Associated Diagnoses Orde r Schedule VITAMIN E (TOCOPHEROL) Lab Routine On e Time for 1 Occurrences starting 08/03/2023 until 08/03/2023 Scheduled Procedures Name Priority Associated Diagnoses Date/Ti [...] this encounter Medical Devices Implanted Type Area Wet Process Assistant Head Miller Device Identifier Shelf Expiration Date Model / Serial / Lot Cement Hydroset Injectable 5cc - [id number] Implanted:Qty : 1 on 03/15/2018 by Ronak Khoury MD [place] [facility] Left: Head JOHN 11/09/2019 [id number] / / [id number] Stent Wallf Esoph 23/[id number] - [id number] Implanted:Qty : 1 on 04/01/2023 by Karson Goddard MD at [place]OS[place] [facility] N/A: Esophagus [employer] : ENDOSCOPY [id number] 09/09/2024 [id number] / / [id number] Power Port 8fr Sngl Lumen Plas - [id number] Implanted:Qty : 1 on 04/19/2023 by Thaddeus Brown DO at OR [facility] Right: Chest CR BARD : PERIPHERAL VASCULAR [id number] 06/14/2024 [id number] / / [id number] documented as of this encounter Procedures Procedure Name Priority Date/Time Associated Diagnosis Comments BASIC METABOLIC PANEL Routine 08/08/2023 8:22 AM EST PHOSPHORUS Routine 08/08/2023 8:22 AM EST CBC Routine 08/08/2023 8:22 AM EST MAGNESIUM Routine 08/08/2023 8:22 AM EST BASIC METABOLIC PANEL Routine 08/07/2023 6:34 AM EST PHOSPHORUS Routine 08/07/2023 6:34 AM EST CBC Routine 08/07/2023 6:34 AM EST MAGNESIUM Routine 08/07/2023 6:34 AM EST HEPATIC FUNCTION PANEL Routine 6:43 AM EST BASIC METABOLIC PANEL Routine 08/06/2023 6:43 AM EST PHOSPHORUS Routine 08/06/2023 6:43 AM EST CALCIUM, IONIZED Routine 08/06/2023 6:43 AM EST CBC Routine 08/06/2023 6:43 AM EST MAGNESIUM Routine 08/06/2023 6:43 AM EST BASIC METABOLIC PANEL Routine 08/05/2023 7:28 AM EST PHOSPHORUS Routine 08/05/2023 7:28 AM EST CBC Routine 08/05/2023 7:28 AM EST MAGNESIUM Routine 08/05/2023 7:28 AM EST BASIC METABOLIC PANEL Routine 08/04/2023 7:28 AM EST PHOSPHORUS Add-on 08/04/2023 7:28 AM EST CBC Routine 08/04/2023 7:28 AM EST MAGNESIUM Routine 08/04/2023 7:28 AM EST VITAMIN B1 (THIAMINE), BLOOD, LC/MS/MS Routine 08/03/2023 4:56 PM EST VITAMIN A (RETINOL) Routine 08/03/2023 4 :56 PM EST ZINC Routine 08/03/2023 4:56 PM EST FOLIC ACID Add-on 08/03/2023 4:56 PM EST VITAMIN K Add-on 08/03/2023 4:56 PM EST FERRITIN Add-on 08/03/2023 4:56 PM EST VITAMIN B12 Add-on 08/03/2023 4:56 PM EST COPPER, SERUM OR PLASMA Routine 08/03/2023 4:56 PM EST 25-HYDROXY VITAMIN D Add-on 08/03/2023 7:01 AM EST BASIC METABOLIC PANEL Routine 08/03/2023 7:01 AM EST IRON SCREEN, INCLUDING TIBC Add-on 08/03/2023 7:01 AM EST PHOSPHORUS Add-on 08/03/2023 7:01 AM EST CBC Routine 08/03/2023 7:01 AM EST TRIGLYCERIDES Add-on 08/03/2023 7:01 AM EST MAGNESIUM Add-on 08/03/2023 7:01 AM EST GLUCOSE METER, POINT OF CARE [facility] 08/02/2023 2:39 PM EST SURGICAL PATHOLOGY Routine 08/02/2023 1: 25 PM EST 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) REMOVE STOMACH, TOTAL 08/02/2023 12:13 PM EST 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) GLUCOSE METER, POINT OF CARE [facility] 08/02/2023 11:50 AM EST documented in this encounter Results * PHOSPHORUS (08/08/2023 8:22 AM EST) Phosphorus 4.2 2.5 - 4.8 mg/dL 08/08/2023 8:59 AM EST [facility] Blood Venous blood specimen / Unknown Venipuncture / Unknown 08/08/2023 8:22 AM EST 08/08/2023 8:32 AM EST Summer Coffey MD LAB BLOOD ORDERABLES Performing Organization Address City/[facility]/ZIP Co de Phone Number [facility] [address] [place] [address] * MAGNESIUM (08/08/2023 8:22 AM EST) Magnesium 1.8 1.5 - 2.6 mg/dL 08/08/2023 8:59 AM EST [facility] Blood Venous blood specimen / Unknown Venipuncture / Unknown 08/08/2023 8:22 AM EST 08/08/2023 8:32 AM EST Summer Coffey MD LAB BLOOD ORDERABLES Performing Organization Address [facility] de Phone Number [facility] [address] [place] [address] * (ABNORMAL) CBC (08/08/2023 8:22 AM EST) WBC 9.47 4.00 - 10.80 K/uL 08/08/2023 8:41 AM EST [facility] RBC 3.60 4.50 - 5.25 M/uL 08/08/2023 8:41 AM EST [facility] HGB 10.2(L) 14.0 - 16.8 g/dL 08/08/2023 8:41 AM EST [facility] HCT 30.6(L) 40.0 - 48.4 % 08/08/2023 8:41 AM EST [facility] MCV 85.0 82.0 - 99.5 fL 08/08/2023 8:41 AM EST [facility] MCH 28.3 27.0 - 34.0 pg 08/08/2023 8:41 AM EST [facility] MCHC 33.3 32.0 - 36.0 g/dL 08/08/2023 8:41 AM EST [facility] RDW 17.8 11.5 - 15.5 % 08/08/2023 8:41 AM EST [facility] PLT 323 140 - 400 K/uL 08/08/2023 8:41 AM EST [facility] MPV 9.9 6.6 - 11.1 fL 08/08/2023 8:41 AM EST [facility] nRBCs 0 <=0 /100 WBCs 08/08/2023 8:41 AM EST [facility] Blood Venous blood specimen / Unknown Venipuncture / Unknown 08/08/2023 8:22 AM EST 08/08/2023 8:32 AM EST [place] Wendy Topete MD LAB BLOOD ORDERAB LES [facility] [address] [place] [address] * (ABNORMAL) BASIC METABOLIC PANEL (08/08/2023 8:22 AM EST) BUN 16 6 - 20 mg/dL 08/08/2023 8:59 AM EST [facility] Creatinine 0.5(L) 0.6 - 1.2 mg/dL 08/08/2023 8:59 AM EST [facility] Estimated Glomerular Filtration Rate >90 >=60 mL/min 08/08/2023 8:59 AM EST [facility] Comment:eGFR is calculated b ased on the CKD-EPI 2020 equation Sodium 126(L) 135 - 146 mmol/L 08/08/2023 8:59 AM EST [facility] Potassium 4.4 3.5 - 5.1 mmol/L 08/08/2023 8:59 AM EST [facility] Chloride 93(L) 98 - 107 mmol/L 08/08/2023 8:59 AM EST [facility] CO2 22 22 - 32 mmol/L 08/08/2023 8:59 AM EST [facility] Anion Gap 11 7 - 15 mmol/L 08/08/2023 8:59 AM EST [facility] Glucose 116 70 - 120 mg/dL 08/08/2023 8:59 AM EST [facility] Calcium 9.3 8.4 - 10.2 mg/dL 08/08/2023 8:59 AM EST [facility] Blood Venous blood specimen / Unknown Venipuncture / Unknown 08/08/2023 8:22 AM EST 08/08/2023 8:32 AM EST Beth Topete MD LAB BLOOD ORDERAB LES Performing Organization Address [facility] Co de Phone Number LABORATORY [facility] [address] [place] [address] * PHOSPHORUS (08/07/2023 6:34 AM EST) Phosphorus 3.9 2.5 - 4.8 mg/dL 08/07/2023 8:08 AM EST [facility] Blood Venous blood specimen / Unknown Venipuncture / Unknown 08/07/2023 6:34 AM EST 08/07/2023 7:16 AM EST Summer Coffey MD LAB BLOOD ORDERABLES Performing Organization Address [facility] Co de Phone Number LABORATORY [facility] [address] [place] [address] * MAGNESIUM (08/07/2023 6:34 AM EST) Magnesium 1.8 1.5 - 2.6 mg/dL 08/07/2023 8:08 AM EST [facility] Blood Venous blood specimen / Unknown Venipuncture / Unknown 08/07/2023 6:34 AM EST 08/07/2023 7:16 AM EST Summer Coffey MD LAB BLOOD ORDERABLES Performing Organization Address [facility] Co de Phone Number LABORATORY [facility] [address] [place] [address] * (ABNORMAL) CBC (08/07/2023 6:34 AM EST) WBC 10.71 4.00 - 10.80 K/uL 08/07/2023 7:25 AM EST [facility] RBC 3.40 4.50 - 5.25 M/uL 08/07/2023 7:25 AM EST [facility] HGB 9.7(L) 14.0 - 16.8 g/dL 08/07/2023 7:25 AM EST [facility] HCT 30.0(L) 40.0 - 48.4 % 08/07/2023 7:25 AM EST [facility] MCV 88.2 82.0 - 99.5 fL 08/07/2023 7:25 AM EST [facility] MCH 28.5 27.0 - 34.0 pg 08/07/2023 7:25 AM EST [facility] MCHC 32.3 32.0 - 36.0 g/dL 08/07/2023 7:25 AM EST [facility] RDW 18.4 11.5 - 15.5 % 08/07/2023 7:25 AM EST [facility] PLT 304 140 - 400 K/uL 08/07/2023 7:25 AM EST [facility] MPV 10.0 6.6 - 11.1 fL 08/07/2023 7:25 AM EST [facility] nRBCs 0 <=0 /100 WBCs 08/07/2023 7:25 AM EST LAB[facility]ATORY [facility] Blood Venous blood specimen / Unknown Venipuncture / Unknown 08/07/2023 6:34 AM EST 08/07/2023 7:16 AM EST [place] Wendy Topete MD LAB BLOOD ORDERAB LES LAB[facility]ATORY [facility] [address] [place] [address] * (ABNORMAL) BASIC METABOLIC PANEL (08/07/2023 6:34 AM EST) BUN 16 6 - 20 mg/dL 08/07/2023 8:08 AM EST [facility] Creatinine 0.5(L) 0.6 - 1.2 mg/dL 08/07/2023 8:08 AM EST [facility] Estimated Glomerular Filtration Rate >90 >=60 mL/min 08/07/2023 8:08 AM EST [facility] Comment:eGFR is calculated b ased on the CKD-EPI 2020 equation Sodium 131(L) 135 - 146 mmol/L 08/07/2023 8:08 AM EST [facility] Potassium 4.5 3.5 - 5.1 mmol/L 08/07/2023 8:08 AM EST [facility] Chloride 99 98 - 107 mmol/L 08/07/2023 8:08 AM EST [facility] CO2 22 22 - 32 mmol/L 08/07/2023 8:08 AM EST [facility] Anion Gap 10 7 - 15 mmol/L 08/07/2023 8:08 AM EST [facility] Glucose 117 70 - 120 mg/dL 08/07/2023 8:08 AM EST [facility] Calcium 9.6 8.4 - 10.2 mg/dL 08/07/2023 8:08 AM EST [facility] Blood Venous blood specimen / Unknown Venipuncture / Unknown 08/07/2023 6:34 AM EST 08/07/2023 7:16 AM EST Beth Topete MD LAB BLOOD ORDERAB LES Performing Organization Address City/[facility]/ZIP Co de Phone Number [facility] [address] [place] [address] * (ABNORMAL) HEPATIC FUNCTION PANEL (08/06/2023 6:43 AM EST) [facility] Albumin 4.1 3.8 - 5.0 g/dL 08/06/2023 7:39 AM EST [facility] AST 48 10 - 50 U/L 08/06/2023 7:39 AM EST [facility] Alkaline Phosphatase 56 35 - 130 U/L 08/06/2023 7:39 AM EST [facility] ALT 66(H) 10 - 50 U/L 08/06/2023 7:39 AM EST [facility] Bilirubin, Total 0.7 <=1.2 mg/dL 08/06/2023 7:39 AM EST [facility] Bilirubin, Direct 0.2 0.0 - 0.3 mg/dL 08/06/2023 7:39 AM EST [facility] Protein 6.9 6.0 - 8.3 g/dL 08/06/2023 7:39 AM EST [facility] Blood Venous blood specimen / Unknown Venipuncture / Unknown 08/06/2023 6:43 AM EST 08/06/2023 7:05 AM EST Dimas Klein MD LAB BLOOD ORDERABLES Performing Organization Address City/[facility]/ZIP Co de Phone Number [facility] [address] [place] [address] * PHOSPHORUS (08/06/2023 6:43 AM EST) Phosphorus 3.7 2.5 - 4.8 mg/dL 08/06/2023 7:39 AM EST [facility] Blood Venous blood specimen / Unknown Venipuncture / Unknown 08/06/2023 6:43 AM EST 08/06/2023 7:05 AM EST Summer Coffey MD LAB BLOOD ORDERABLES Performing Organization Address City/[facility]/ZIP Co de Phone Number LABORATORY [facility] [address] [place] [address] * MAGNESIUM (08/06/2023 6:43 AM EST) Pathologist [facility] Magnesium 1.9 1.5 - 2.6 mg/dL 08/06/2023 7:39 AM EST [facility] Blood Venous blood specimen / Unknown Venipuncture / Unknown 08/06/2023 6:43 AM EST 08/06/2023 7:05 AM EST Summer Coffey MD LAB BLOOD ORDERABLES Performing Organization Address City/[facility] Co de Phone Number LABORATORY [facility] [address] [place] [address] * (ABNORMAL) CBC (08/06/2023 6:43 AM EST) Pathologist [facility] WBC 11.26(H) 4.00 - 10.80 K/uL 08/06/2023 7:17 AM EST [facility] RBC 3.40 4.50 - 5.25 M/uL 08/06/2023 7:17 AM EST [facility] HGB 9.9(L) 14.0 - 16.8 g/dL 08/06/2023 7:17 AM EST [facility] HCT 29.6(L) 40.0 - 48.4 % 08/06/2023 7:17 AM EST [facility] MCV 87.1 82.0 - 99.5 fL 08/06/2023 7:17 AM EST [facility] MCH 29.1 27.0 - 34.0 pg 08/06/2023 7:17 AM EST [facility] MCHC 33.4 32.0 - 36.0 g/dL 08/06/2023 7:17 AM EST [facility] RDW 18.8 11.5 - 15.5 % 08/06/2023 7:17 AM EST [facility] PLT 281 140 - 400 K/uL 08/06/2023 7:17 AM EST [facility] MPV 9.7 6.6 - 11.1 fL 08/06/2023 7:17 AM EST [facility] nRBCs 0 <=0 /100 WBCs 08/06/2023 7:17 AM EST [facility] Blood Venous blood specimen / Unknown Venipuncture / Unknown 08/06/2023 6:43 AM EST 08/06/2023 7:05 AM EST Beth Topete MD LAB BLOOD ORDERAB LES [facility] [address] [place] [address] * (ABNORMAL) BASIC METABOLIC PANEL (08/06/2023 6:43 AM EST) BUN 15 6 - 20 mg/dL 08/06/2023 7:39 AM EST [facility] Creatinine 0.4(L) 0.6 - 1.2 mg/dL 08/06/2023 7:39 AM EST [facility] Estimated Glomerular Filtration Rate >90 >=60 mL/min 08/06/2023 7:39 AM EST [facility] Comment:eGFR is calculated b ased on the CKD-EPI 2020 equation Sodium 135 135 - 146 mmol/L 08/06/2023 7:39 AM EST [facility] Potassium 3.9 3.5 - 5.1 mmol/L 08/06/2023 7:39 AM EST [facility] Chloride 100 98 - 107 mmol/L 08/06/2023 7:39 AM EST [facility] CO2 23 22 - 32 mmol/L 08/06/2023 7:39 AM EST [facility] Anion Gap 12 7 - 15 mmol/L 08/06/2023 7:39 AM EST [facility] Glucose 126(H) 70 - 120 mg/dL 08/06/2023 7:39 AM EST [facility] Calcium 9.5 8.4 - 10.2 mg/dL 08/06/2023 7:39 AM EST LAB[facility]ATORY [facility] Blood Venous blood specimen / Unknown Venipuncture / Unknown 08/06/2023 6:43 AM EST 08/06/2023 7:05 AM EST Beth Topete MD LAB BLOOD ORDERAB LES Performing Organization Address City/[facility]/ZIP Co de Phone Number LABORATORY [facility] [address] [place] [address] * CALCIUM, IONIZED (08/06/2023 6:43 AM EST) Calcium, Ionized 1.25 1.13 - 1.32 mmol/L 08/06/2023 9:17 AM EST LABORATORY [facility] Comment:This test was develo ped and its performance characteristics dtermined by [employer]. It has not been cleared or approved by the [place] Food and Drug Administration Blood Venous blood specimen / Unknown Venipuncture / Unknown 08/06/2023 6:43 AM EST 08/06/2023 7:05 AM EST Dimas Klein MD LAB BLOOD ORDERABLES Performing Organization Address [facility] Co de Phone Number LABORATORY [facility] [address] [place] [address] * PHOSPHORUS (08/05/2023 7:28 AM EST) Phosphorus 3.0 2.5 - 4.8 mg/dL 08/05/2023 8:45 AM EST LABORATORY [facility] Blood Venous blood specimen / Unknown Venipuncture / Unknown 08/05/2023 7:28 AM EST 08/05/2023 8:16 AM EST Summer Coffey MD LAB BLOOD ORDERABLES Performing Organization Address [facility] Co de Phone Number LABORATORY [facility] [address] [place] [address] * MAGNESIUM (08/05/2023 7:28 AM EST) Magnesium 1.5 1.5 - 2.6 mg/dL 08/05/2023 8:45 AM EST [facility] Blood Venous blood specimen / Unknown Venipuncture / Unknown 08/05/2023 7:28 AM EST 08/05/2023 8:16 AM EST Summer Coffey MD LAB BLOOD ORDERABLES [facility] [address] [place] [address] * (ABNORMAL) CBC (08/05/2023 7:28 AM EST) WBC 10.57 4.00 - 10.80 K/uL 08/05/2023 8:24 AM EST [facility] RBC 3.08 4.50 - 5.25 M/uL 08/05/2023 8:24 AM EST [facility] HGB 8.9(L) 14.0 - 16.8 g/dL 08/05/2023 8:24 AM EST [facility] HCT 26.7(L) 40.0 - 48.4 % 08/05/2023 8:24 AM EST [facility] MCV 86.7 82.0 - 99.5 fL 08/05/2023 8:24 AM EST [facility] MCH 28.9 27.0 - 34.0 pg 08/05/2023 8:24 AM EST [facility] MCHC 33.3 32.0 - 36.0 g/dL 08/05/2023 8:24 AM EST [facility] RDW 19.7 11.5 - 15.5 % 08/05/2023 8:24 AM EST [facility] PLT 232 140 - 400 K/uL 08/05/2023 8:24 AM EST [facility] MPV 9.8 6.6 - 11.1 fL 08/05/2023 8:24 AM EST [facility] nRBCs 0 <=0 /100 WBCs 08/05/2023 8:24 AM EST [facility] Blood Venous blood specimen / Unknown Venipuncture / Unknown 08/05/2023 7:28 AM EST 08/05/2023 8:16 AM EST Beth Topete MD LAB BLOOD ORDERAB LES [facility] [address] [place] [address] * (ABNORMAL) BASIC METABOLIC PANEL (08/05/2023 7:28 AM EST) BUN 11 6 - 20 mg/dL 08/05/2023 8:45 AM EST [facility] Creatinine 0.5(L) 0.6 - 1.2 mg/dL 08/05/2023 8:45 AM EST [facility] Estimated Glomerular Filtration Rate >90 >=60 mL/min 08/05/2023 8:45 AM EST [facility] Comment:eGFR is calculated b ased on the CKD-EPI 2020 equation Sodium 135 135 - 146 mmol/L 08/05/2023 8:45 AM EST [facility] Potassium 3.4(L) 3.5 - 5.1 mmol/L 08/05/2023 8:45 AM EST [facility] Chloride 102 98 - 107 mmol/L 08/05/2023 8:45 AM EST [facility] CO2 22 22 - 32 mmol/L 08/05/2023 8:45 AM EST [facility] Anion Gap 11 7 - 15 mmol/L 08/05/2023 8:45 AM EST [facility] Glucose 130(H) 70 - 120 mg/dL 08/05/2023 8:45 AM EST [facility] Calcium 9.5 8.4 - 10.2 mg/dL 08/05/2023 8:45 AM EST [facility] Blood Venous blood specimen / Unknown Venipuncture / Unknown 08/05/2023 7:28 AM EST 08/05/2023 8:16 AM EST Beth Topete MD LAB BLOOD ORDERAB LES [facility] [address] [place] [address] * MAGNESIUM (08/04/2023 7:28 AM EST) Magnesium 1.8 1.5 - 2.6 mg/dL 08/04/2023 10:24 AM EST [facility] Blood Venous blood specimen / Unknown Venipuncture / Unknown 08/04/2023 7:28 AM EST 08/04/2023 8:24 AM EST Summer Coffey MD LAB BLOOD ORDERABLES Performing Organization Address [facility]/ZIP Co de Phone Number LABORATORY [facility] [address] [place] [address] * (ABNORMAL) PHOSPHORUS (08/04/2023 7:28 AM EST) Phosphorus 2.4(L) 2.5 - 4.8 mg/dL 08/04/2023 8:51 AM EST [facility] Blood Venous blood specimen / Unknown Venipuncture / Unknown 08/04/2023 7:28 AM EST 08/04/2023 8:24 AM EST Summer Coffey MD LAB BLOOD ORDERABLES Performing Organization Address [facility] de Phone Number LABORATORY [facility] [address] [place] [address] * (ABNORMAL) CBC (08/04/2023 7:28 AM EST) WBC 10.85(H) 4.00 - 10.80 K/uL 08/04/2023 8:33 AM EST [facility] RBC 3.09 4.50 - 5.25 M/uL 08/04/2023 8:33 AM EST [facility] HGB 9.0(L) 14.0 - 16.8 g/dL 08/04/2023 8:33 AM EST [facility] HCT 27.6(L) 40.0 - 48.4 % 08/04/2023 8:33 AM EST [facility] MCV 89.3 82.0 - 99.5 fL 08/04/2023 8:33 AM EST [facility] MCH 29.1 27.0 - 34.0 pg 08/04/2023 8:33 AM EST [facility] MCHC 32.6 32.0 - 36.0 g/dL 08/04/2023 8:33 AM EST [facility] RDW 20.2 11.5 - 15.5 % 08/04/2023 8:33 AM EST [facility] PLT 218 140 - 400 K/uL 08/04/2023 8:33 AM EST [facility] MPV 10.2 6.6 - 11.1 fL 08/04/2023 8:33 AM EST [facility] nRBCs 0 <=0 /100 WBCs 08/04/2023 8:33 AM EST [facility] Blood Venous blood specimen / Unknown Venipuncture / Unknown 08/04/2023 7:28 AM EST 08/04/2023 8:23 AM EST [place] Wendy Topete MD LAB BLOOD ORDERAB LES [facility] [address] [place] [address] * (ABNORMAL) BASIC METABOLIC PANEL (08/04/2023 7:28 AM EST) BUN 11 6 - 20 mg/dL 08/04/2023 8:51 AM EST [facility] Creatinine 0.5(L) 0.6 - 1.2 mg/dL 08/04/2023 8:51 AM EST [facility] Estimated Glomerular Filtration Rate >90 >=60 mL/min 08/04/2023 8:51 AM EST [facility] Comment:eGFR is calculated b ased on the CKD-EPI 2020 equation Sodium 134(L) 135 - 146 mmol/L 08/04/2023 8:51 AM EST [facility] Potassium 4.0 3.5 - 5.1 mmol/L 08/04/2023 8:51 AM EST [facility] Chloride 102 98 - 107 mmol/L 08/04/2023 8:51 AM EST [facility] CO2 23 22 - 32 mmol/L 08/04/2023 8:51 AM EST [facility] Anion Gap 9 7 - 15 mmol/L 08/04/2023 8:51 AM EST [facility] Glucose 159(H) 70 - 120 mg/dL 08/04/2023 8:51 AM EST [facility] Calcium 8.8 8.4 - 10.2 mg/dL 08/04/2023 8:51 AM EST [facility] Blood Venous blood specimen / Unknown Venipuncture / Unknown 08/04/2023 7:28 AM EST 08/04/2023 8:24 AM EST Beth Topete MD LAB BLOOD ORDERAB LES Performing Organization Address City/[facility]/ZIP Co de Phone Number LABORATORY [facility] [address] [place] [address] * FERRITIN (08/03/2023 4:56 PM EST) Ferritin 185 30 - 400 ng/mL 08/03/2023 6:04 PM EST LABORATORY [facility] Blood Venous blood specimen / Unknown Venipuncture / Unknown 08/03/2023 4:56 PM EST 08/03/2023 5:04 PM EST Vy Martin MD LAB BLOOD ORDERABLES Performing Organization Address [facility] Co de Phone Number LABORATORY [facility] [address] [place] [address] * (ABNORMAL) ZINC (08/03/2023 4:56 PM EST) Zinc 25(L) 60 - 130 mcg/dL 08/06/2023 6:47 AM EST [facility] [place] Comment: This test was developed and its analytical performance characteristics have been determined by [facility], [place]. It has not been cleared or approved by the [place].S. Food and Drug Administration. This assay has been validated pursuant to the CLIA regulations and is used for clinical purposes. Test Performed at: [facility] [address] [id number] Tom Sanches M.D., Ph.D.,Director of Laboratories Blood Venous blood specimen / Unknown Venipuncture / Unknown 08/03/2023 4:56 PM EST 08/03/2023 5:04 PM EST Vy Martin MD LAB BLOOD ORDERABLES Performing Organization Address [facility] Co de Phone Number [facility] [address] * COPPER, SERUM OR PLASMA (08/03/2023 4:56 PM EST) Pathologist [facility] Copper 73 70 - 175 mcg/dL 08/06/2023 6:46 AM EST [facility] Comment: This test was developed and its analytical performance characteristics have been determined by [facility] [place]. It has not been cleared or approved by the U.S. Food and Drug Administration. This assay has been validated pursuant to the CLIA regulations and is used for clinical purposes. Test Performed at: [facility] [address] Tom Sanches M.D., Ph.D.,Director of Laboratories Blood Venous blood specimen / Unknown Venipuncture / Unknown 08/03/2023 4:56 PM EST 08/03/2023 5:05 PM EST Vy Martin MD LAB BLOOD ORDERABLES [facility] [address] [place] [address] * FOLIC ACID (08/03/2023 4:56 PM EST) [facility] Folic Acid 11.7 >4.5 ng/mL 08/03/2023 11:17 PM EST LABORATORY [facility] Blood Venous blood specimen / Unknown Venipuncture / Unknown 08/03/2023 4:56 PM EST 08/03/2023 5:04 PM EST Vy Martin MD LAB BLOOD ORDERABLES LABORATORY [facility] [address] [place], [place] [id number] * VITAMIN B12 (08/03/2023 4:56 PM EST) [facility] Vitamin B12 331 232 - 1,245 pg/mL 08/03/2023 11:17 PM EST LABORATORY [facility] Blood Venous blood specimen / Unknown Venipuncture / Unknown 08/03/2023 4:56 PM EST 08/03/2023 5:04 PM EST Vy Martin MD LAB BLOOD ORDERABLES [facility] [address] [place] [id number] * VITAMIN B1 (THIAMINE), BLOOD, LC/MS/MS (08/03/2023 4:56 PM EST) Pathologist [facility] Vitamin B1 (Thiamine),B 120 78 - 185 nmol/L 08/08/2023 2:35 PM EST [facility] [place] Comment: Vitamin supplementation within 24 hours prior to blood draw may affect the accuracy of the results. This test was developed and its analytical performance characteristics have been determined by [facility] [place]. It has not been cleared or approved by the U.S. Food and Drug Administration. This assay has been validated pursuant to the CLIA regulations and is used for clinical purposes. Test Performed at: [facility] [address] Tom Sanches M.D., Ph.D.,Director of Laboratories Blood Venous blood specimen / Unknown Venipuncture / Unknown 08/03/2023 4:56 PM EST 08/03/2023 5:05 PM EST Vy Martin MD LAB BLOOD ORDERABLES Performing Organization Address [facility] Co de Phone Number [address] [address] * VITAMIN K (08/03/2023 4:56 PM EST) [facility] Vitamin K 183 130 - 1500 pg/mL 08/06/2023 6:35 PM EST [facility] [place] Comment: This test was developed and its analytical performance characteristics have been determined by [facility] [place]. It has not been cleared or approved by the U.S. Food and Drug Administration. This assay has been validated pursuant to the CLIA regulations and is used for clinical purposes. Test Performed at: [facility] [address] Tom Snaches M.D., Ph.D.,Director of Laboratories Blood Venous blood specimen / Unknown Venipuncture / Unknown 08/03/2023 4:56 PM EST 08/03/2023 5:04 PM EST Vy Martin MD LAB BLOOD ORDERABLES Performing Organization Address [facility] Co de Phone Number [facility] [place] [address] [place] [address] * VITAMIN A (RETINOL) (08/03/2023 4:56 PM EST) Vitamin A (Retinol) 42 38 - 98 mcg/dL 08/07/2023 2:10 PM EST [facility] [place] Comment: Vitamin supplementation within 24 hours prior to blood draw may affect the accuracy of the results. This test was developed and its analytical performance characteristics have been determined by [facility] [place], [place]. It has not been cleared or approved by the U.S. Food and Drug Administration. This assay has been validated pursuant to the CLIA regulations and is used for clinical purposes. Test Performed at: [facility] [address] Tom Sanches M.D., Ph.D.,Director of Laboratories Blood Venous blood specimen / Unknown Venipuncture / Unknown 08/03/2023 4:56 PM EST 08/03/2023 5:04 PM EST Vy Martin MD LAB BLOOD ORDERABLES Performing Organization Address [facility] Co de Phone Number [address] [place] [id number] [place] [address] * TRIGLYCERIDES (08/03/2023 7:01 AM EST) Triglycerides 58 <=174 mg/dL 08/04/2023 5:39 AM EST [facility] Comment: Triglyceride Reference Ranges (mg/dL): <150 Acceptable 150-174 Borderline high 175-499 High >=500 Very high Blood Venous blood specimen / Unknown Venipuncture / Unknown 08/03/2023 7:01 AM EST 08/03/2023 7:53 AM EST Vy Martin MD LAB BLOOD ORDERABLES Performing Organization Address [facility] Co de Phone Number [facility] [address] [place] [address] * (ABNORMAL) IRON SCREEN, INCLUDING TIBC (08/03/2023 7:01 AM EST) Iron 20(L) 45 - 176 ug/dL 08/04/2023 5:39 AM EST LABORATORY [facility] Iron Binding Capacity 295 250 - 425 ug/dL 08/04/2023 5:39 AM EST LABORATORY C Transferrin Saturation Percent 7(L) 15 - 55 % 08/04/2023 5:39 AM EST [facility] Blood Venous blood specimen / Unknown Venipuncture / Unknown 08/03/2023 7:01 AM EST 08/03/2023 7:53 AM EST Vy Martin MD LAB BLOOD ORDERABLES Performing Organization Address [facility] de Phone Number [facility] [facility] [address] [place] [address] * 25-HYDROXY VITAMIN D (08/03/2023 7:01 AM EST) 25-Hydroxy Vitamin D 24 >19 ng/mL 08/04/2023 5:19 AM EST [facility] Blood Venous blood specimen / Unknown Venipuncture / Unknown 08/03/2023 7:01 AM EST 08/03/2023 7:53 AM EST Narrative LABORATORY C - 08/04/2023 5:19 AM EST Deficient: <20 ng/mL Insufficient: 20-29 ng/mL Recommended/Optimum:30-50 ng/mL Vitamin D intoxication is rare. If suspicious of Vitamin D toxicity, evaluation of serum Calcium and PTH is recommended. Vy Martin MD LAB BLOOD ORDERABLES Performing Organization Address [facility]/ZIP Co de Phone Number [facility] [address] [place] [address] * MAGNESIUM (08/03/2023 7:01 AM EST) Magnesium 1.9 1.5 - 2.6 mg/dL 08/03/2023 2:44 PM EST [facility] Blood Venous blood specimen / Unknown Venipuncture / Unknown 08/03/2023 7:01 AM EST 08/03/2023 7:53 AM EST Vy Martin MD LAB BLOOD ORDERABLES Performing Organization Address [facility] Co de Phone Number [facility] [address] [place] [address] * PHOSPHORUS (08/03/2023 7:01 AM EST) Phosphorus 4.7 2.5 - 4.8 mg/dL 08/03/2023 2:44 PM EST [facility] Blood Venous blood specimen / Unknown Venipuncture / Unknown 08/03/2023 7:01 AM EST 08/03/2023 7:53 AM EST Vy Martin MD LAB BLOOD ORDERABLES Performing Organization Address City/[facility] de Phone Number [facility] [address] [place] [address] * (ABNORMAL) CBC (08/03/2023 7:01 AM EST) WBC 12.25(H) 4.00 - 10.80 K/uL 08/03/2023 8:02 AM EST [facility] RBC 3.34 4.50 - 5.25 M/uL 08/03/2023 8:02 AM EST [facility] HGB 9.6(L) 14.0 - 16.8 g/dL 08/03/2023 8:02 AM EST [facility] HCT 29.7(L) 40.0 - 48.4 % 08/03/2023 8:02 AM EST [facility] MCV 88.9 82.0 - 99.5 fL 08/03/2023 8:02 AM EST [facility] MCH 28.7 27.0 - 34.0 pg 08/03/2023 8:02 AM EST [facility] MCHC 32.3 32.0 - 36.0 g/dL 08/03/2023 8:02 AM EST [facility] RDW 20.5 11.5 - 15.5 % 08/03/2023 8:02 AM EST [facility] PLT 228 140 - 400 K/uL 08/03/2023 8:02 AM EST [facility] MPV 10.0 6.6 - 11.1 fL 08/03/2023 8:02 AM EST [facility] nRBCs 0 <=0 /100 WBCs 08/03/2023 8:02 AM EST [facility] Blood Venous blood specimen / Unknown Venipuncture / Unknown 08/03/2023 7:01 AM EST 08/03/2023 7:53 AM EST [place] Wendy Topete MD LAB BLOOD ORDERAB LES [facility] [address] [place] [address] * BASIC METABOLIC PANEL (08/03/2023 7:01 AM EST) BUN 14 6 - 20 mg/dL 08/03/2023 8:24 AM EST [facility] Creatinine 0.6 0.6 - 1.2 mg/dL 08/03/2023 8:24 AM EST [facility] Estimated Glomerular Filtration Rate >90 >=60 mL/min 08/03/2023 8:24 AM EST [facility] Comment:eGFR is calculated b ased on the CKD-EPI 2020 equation Sodium 136 135 - 146 mmol/L 08/03/2023 8:24 AM EST [facility] Potassium 4.0 3.5 - 5.1 mmol/L 08/03/2023 8:24 AM EST [facility] Chloride 101 98 - 107 mmol/L 08/03/2023 8:24 AM EST [facility] CO2 24 22 - 32 mmol/L 08/03/2023 8:24 AM EST [facility] Anion Gap 11 7 - 15 mmol/L 08/03/2023 8:24 AM EST [facility] Glucose 101 70 - 120 mg/dL 08/03/2023 8:24 AM EST [facility] Calcium 8.7 8.4 - 10.2 mg/dL 08/03/2023 8:24 AM EST [facility] Blood Venous blood specimen / Unknown Venipuncture / Unknown 08/03/2023 7:01 AM EST 08/03/2023 7:53 AM EST Beth Topete MD LAB BLOOD ORDERAB LES Performing Organization Address City/[facility]/ZIP Co de Phone Number [facility] [address] [place] [address] * GLUCOSE METER, POINT OF CARE (08/02/2023 2:39 PM EST) Glucose Meter 120 70 - 120 mg/dL 08/02/2023 2:59 PM EST [facility] Blood Whole blood specimen / Unknown 08/02/2023 2:39 PM EST 08/02/2023 2:59 PM EST Praveen Edmonds MD LAB POINT OF CARE TEST DOCKED DEVICE UNSOLICITED RESULTS Performing Organization Address City/[facility] Co de Phone Number [facility] [address] [place] [address] * SURGICAL PATHOLOGY (08/02/2023 1:25 PM EST) Final Diagnosis A: Esophagus (staple line drake proximal margin), [...] D: Anastomotic rings, excision: -Negative for tumor. 08/05/2023 3:23 PM EST [facility] Synoptic Report STOMACH STOMACH: LOCAL RESECTION, GASTRECTOMY (NOTE A) - All Specimens 8th Edition - Protocol posted: 11/03/2022 SPECIMEN Procedure: Total gastrectomy TUMOR Tumor Site: Gastroesophagea l junction Histologic Type: adenocarcinoma; see previous biopsy for details. Histologic Grade: Not applicable: No residual carcinoma identified status post neoadjuvant chemotherapy. Tumor Size: Cannot be determined: No residual carcinoma identified. Tumor Extent: Cannot be determined: No residual carcinoma identified status post neoadjuvant chemotherapy Treatment Effect: Present, with no viable cancer cells (complete response, score 0) Lymphatic and / or Vascular Invasion: Not identified Perineural Invasion: Not identified MARGINS Margin Status for Invasive Carcinoma: All margins negative for invasive carcinoma Closest Margin(s) to Invasive Carcinoma: Cannot be determined Distance from Invasive Carcinoma to Closest Margin: Cannot be determined Margin Status for Dysplasia: All margins negative for dysplasia REGIONAL LYMPH NODES Regional Lymph Node Status: : All regional lymph nodes negative for tumor Number of Lymph Nodes Examined: 22 pTNM CLASSIFICATION (AJCC 8th Edition) Reporting of pT, pN, and (when applicable) pM categories is based on information available to the pathologist at the time the report is issued. As per the AJCC (Chapter 1, 8th Ed.) it is the managing physician s responsibility to establish the final pathologic stage based upon all pertinent information, including but potentially not limited to this pathology report. Modified Classification: y pT Category: pT0 pN Category: pN0 ADDITIONAL FINDINGS Additional Findings: Mild nonspecific mucosal inflammation 08/05/2023 3:23 PM EST [facility] Order Comments Staple line drake proximal margin 08/05/2023 3:23 PM EST [facility] Gross Description A. Esophagus. Received fresh for frozen with a container labeled with "[employer]", "[id number]", "1965" and " esophageal margin staple line drake proximal margin". The specimen consists of a portion of esophagus measuring 2.8 x 2.8 x 0.5 cm. There is a surgical staple line present and the staple line is removed and the underlying tissue is submitted en face for frozen in cassette A1FS. Gross By: LY B. Stomach. Received fresh with a container labeled with "[employer]", "[id number]", "1965" and " gastrectomy". Specimen type: Gastrectomy Size: Esophagus 4.5 x 3.0 x 2.5 cm; stomach 14.5 x 11.5 x 7.5 cm External Description: Connell-pink, smooth and glistening and there is a surgical staple line present within the portion omental and mesenteric tissue. The distal margin is stapled Tumor location and size: 2.8 x 2.7 x 0.5 cm, connell-pink, slightly raised, mucosa at the proximal stomach with scarring at the distal esophagus/GE junction Tumor extension: The wall is thickened, fibrotic with focal necrosis Distance to margins: Proximal - 1.0 cm; Distal - 11.5 cm; Adventitia - 1.5 cm Characteristics of uninvolved tissue: Focal wall thickening within the proximal stomach Esophagus adventitial margin inked: Black Gross photographs are taken. Christmas Tree Farmer sections are submitted Gross By: LY Summary of sections: B1 distal margin, B2 mesenteric tissue underlying staple line, B3-B12 lesion, entirely submitted (B3-B4, B5-B6, B7-B8, B9-B10, and B11-B12 are paired sections) B13 sections of uninvolved esophagus, B14-B16 sections of uninvolved stomach, B17 1 lymph node, bisected, B18-B20, each contain 4 lymph nodes, B21,one node, bisected. C. Lymph Node. Received fresh with a container labeled with "[employer]ish [employer]er", "[id number]", "1965" and " perihepatic nodes". The specimen consists of an aggregate of adipose and possible lymphoid tissue measuring 4.5 x 4.0 x 1.2 cm. The specimen is dissected and reveals 5 lymph nodes ranging in size from 0.5-1.8 cm in greatest dimension. The lymph nodes are sectioned and are entirely submitted as per block summary. Gross By: LY Summary of sections: C1 3 possible nodes, C2-1 possible node, bisected, C3-C4-1 node, sectioned. D. Esophagus. Received fresh with a container labeled with "Parish [employer]er", "[id number]", "1965" and " anastomotic rings". The specimen consists 2, unoriented portions of connell-pink, annular tissue ranging in size from 1.8-2.5 cm in greatest dimension. There is a metallic anvil present. A small business representative section of each portion of tissue is submitted in cassette D1. Gross By: LY 08/05/2023 3:23 PM EST [facility] Microscopic Description A: Sections is negative for tumor. B: The entire lesional area is submitted for histologic examination. Sections show submucosa area of fibrosis, scar associated with abundant histiocytic reaction, the findings are consistent with the changes of prior therapy. There is no residual carcinoma identified. All lymph nodes examined are negative for tumor. Margins are negative for tumor.Random sections show mild nonspecific chronic inflammation. C: Sections show 5 benign lymph nodes with lipoma granuloma. There is no evidence of metastasis. D: Sections is negative for tumor 08/05/2023 3:23 PM EST [facility] Intraoperative Diagnosis A. Esophagus. Esophagus, biopsy Frozen Section/Intraoper ative Diagnosis: Negative per Dr. Girard reported to Dr. Edmonds on 08/02/2023 at 1358. 08/05/2023 3:23 PM EST [facility] Sign Out Location Pathologist sign out performed at [facility] ([facility] [address] [place] [id number]. 08/05/2023 3:23 PM EST [facility] Photographic images and diagrams represent powell findings in this case; they are not intended to replace a complete review of the final diagnostic report. The following statement applies to Flow Cytometry, Histology, In situ Hybridization Assays and Molecular Genetics. This test was developed and performed at [facility] and its performance characteristics determined by [facility]. It has not been cleared or approved by the U.S. Food and Drug Administration. The FDA has determined that such clearance or approval is not necessary. This test is used for clinical purposes. It should not be regarded as investigational or for research. Special stains, including histochemical stains, and studies using immunologic and MARILIN methodology (where applicable) are performed with appropriate positive and negative control reactions. 08/05/2023 3:23 PM EST [facility] Tissue Entire esophagus / Unknown 08/02/2023 1:25 PM EST 08/02/2023 1:51 PM EST Comment:Staple line drake pr oximal margin Specimen from wound (specimen) Stomach part / Unknown 08/02/2023 2:08 PM EST 08/02/2023 4:19 PM EST Specimen from wound (specimen) Entire lymph node / Unknown 08/02/2023 2:10 PM EST 08/02/2023 4:19 PM EST Specimen from wound (specimen) Entire esophagus / Unknown 08/02/2023 2:37 PM EST 08/02/2023 4:19 PM EST Praveen Edmonds MD LAB PATHOLOGY ORD ERABLES [facility] [address] [place] [address] * GLUCOSE METER, POINT OF CARE (08/02/2023 11:50 AM EST) Glucose Meter 98 70 - 120 mg/dL 08/02/2023 12:01 PM EST [facility] Blood Whole blood specimen / Unknown 08/02/2023 11:50 AM EST 08/02/2023 12:01 PM EST Praveen Edmonds MD LAB POINT OF CARE TEST DOCKED DEVICE UNSOLICITED RESULTS [facility] [address] [place] [address] documented in this encounter Visit Diagnoses Diagnosis 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- Primary Other postprocedural status 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 On peripheral parenteral nutrition (ppn) Other specified conditions influencing health status Unintentional weight loss Loss of weight Hypomagnesemia Disorders of magnesium metabolism Malignant neoplasm of stomach (HCC) Malignant neoplasm of stomach, unspecified site Malnutrition of moderate degree (HCC) Malnutrition of moderate degree Hyponatremia Hyposmolality and/or hyponatremia Hypophosphatemia Disorders of phosphorus metabolism Vitamin D insufficiency Unspecified vitamin D deficiency Iron deficiency anemia Iron deficiency anemia, unspecified Hypokalemia Hypopotassemia documented in this encounter Administered Medications Inactive Administered Medications - up to 3 most recent administrations Medication Order MAR Action Action Date Dose Rate Site Acetaminophen (Ofirmev) inj 1,000 mg 1,000 mg, Intravenous, Q8H, 3 doses, First dose on Tue08/02/23 at 2200, Last dose on Tue08/03/23 at 1400, Administer over 15 Minutes, Administer undiluted over 15 minutes! NOTE: Maximum of 4000 mg per 24 hours of acetaminophen from all acetaminophen containing products., Indication: Patient is strictly NPO New Bag 08/03/2023 5:12 AM EST 1,000 mg 400 mL/hr New Bag 08/02/2023 9:21 PM EST 1,000 mg 400 mL/hr Acetaminophen (Ofirmev) inj 1,000 mg 1,000 mg, Intravenous, Q8H, 3 doses, First dose (after last modification) on Tue08/03/23 at 1400, Last dose on Tue08/04/23 at 0600, Administer over 15 Minutes, Administer undiluted over 15 minutes! NOTE: Maximum of 4000 mg per 24 hours of acetaminophen from all acetaminophen containing products., Indication: Patient is strictly NPO Start Infusion 08/03/2023 2:41 PM EST 1,000 mg 400 mL/hr Acetaminophen (Ofirmev) inj 1,000 mg 1,000 mg, Intravenous, Q8H, 3 doses, First dose (after last modification) on Tue08/03/23 at 2200, Last dose on Tue08/04/23 at 1400, Administer over 15 Minutes, Administer undiluted over 15 minutes! NOTE: Maximum of 4000 mg per 24 hours of acetaminophen from all acetaminophen containing products., Indication: Patient is strictly NPO New Bag 08/04/2023 5:55 AM EST 1,000 mg 400 mL/hr New Bag 08/03/2023 8:42 PM EST 1,000 mg 400 mL/hr Acetaminophen (Ofirmev) inj 1,000 mg 1,000 mg, Intravenous, Q8H, 3 doses, First dose (after last modification) on Tue08/04/23 at 1400, Last dose on Tue08/05/23 at 0600, Administer over 15 Minutes, Administer undiluted over 15 minutes! NOTE: Maximum of 4000 mg per 24 hours of acetaminophen from all acetaminophen containing products., Indication: Patient is strictly NPO New Bag 08/05/2023 5:41 AM EST 1,000 mg 400 mL/hr New Bag 08/04/2023 9:59 PM EST 1,000 mg 400 mL/hr Start Infusion 08/04/2023 2:39 PM EST 1,000 mg 400 mL/hr Acetaminophen (Ofirmev) inj 1,000 mg 1,000 mg, Intravenous, Q8H, 3 doses, First dose (after last reorder) on Tue08/06/23 at 0700, Last dose on Tue08/06/23 at 2200, Administer over 15 Minutes, Administer undiluted over 15 minutes! NOTE: Maximum of 4000 mg per 24 hours of acetaminophen from all acetaminophen containing products., Indication: Patient is strictly NPO New Bag 08/06/2023 9:03 PM EST 1,000 mg 400 mL/hr New Bag 08/06/2023 1:45 PM EST 1,000 mg 400 mL/hr Start Infusion 08/06/2023 7:59 AM EST 1,000 mg 400 mL/hr Acetaminophen (Ofirmev) inj 1,000 mg 1,000 mg, Intravenous, Q8H, 3 doses, First dose (after last reorder) on 08/06/23 at 2315, Last dose on Tue08/07/23 at 1400, Administer over 15 Minutes, Administer undiluted over 15 minutes! NOTE: Maximum of 4000 mg per 24 hours of acetaminophen from all acetaminophen containing products., Indication: Patient is strictly NPO New Bag 08/07/2023 5:29 AM EST 1,000 mg 400 mL/hr Acetaminophen (Tylenol) tab 975 mg 975 mg, Oral, PREOP, First dose on Tue08/02/23 at 1145, Last dose on Tue08/02/23 at 1145, For 1 dose, Maximum 4 g acetaminophen/day. Avoid in patients with severe hepatic impairment or severe active liver disease. Administer 60 minutes prior to OR., Pre-Op Given 08/02/2023 11:40 AM EST 975 mg Acetaminophen (Tylenol) tab 975 mg 975 mg, Oral, Q8H, First dose on Tue08/07/23 at 1400, Until Discontinued, Maximum of 4 grams (4000 mg) per day. Given 08/08/2023 5:48 AM EST 975 mg Given 08/07/2023 2:02 PM EST 975 mg Adult PPN Peripheral + Zinc 2,000 mL, Intravenous, [id number], Starting on 08/06/23 at 1800, Until Tue08/07/23 at 1759, For 24 hours, Infuse using a 1.2 micron in-line filter Rate Verify 08/07/2023 8:53 AM EST 83 mL/hr New Bag 08/06/2023 3:39 PM EST 83 mL/hr Adult PPN Peripheral + Zinc 2,000 mL, Intravenous, [id number], Starting on Tue08/07/23 at 1800, Until 08/08/23 at 1404, For 24 hours, Infuse using a 1.2 micron in-line filter New Bag 08/07/2023 3:40 PM EST 83 mL/hr Adult PPN Peripheral 2,000 mL, Intravenous, [id number], Starting on Tue08/03/23 at 1800, Until [place] 08/04/23 at 1759, For 24 hours, Infuse using a 1.2 micron in-line filter New Bag 08/03/2023 6:33 PM EST 83 mL/hr Adult PPN Peripheral 2,000 mL, Intravenous, [id number], Starting on [place] 08/04/23 at 1800, Until Tue08/05/23 at 1759, For 24 hours, Infuse using a 1.2 micron in-line filter New Bag 08/04/2023 6:45 PM EST 83 mL/hr Adult PPN Peripheral 2,000 mL, Intravenous, [id number], Starting on Tue08/05/23 at 1800, Until 08/06/23 at 1759, For 24 hours, Infuse using a 1.2 micron in-line filter Rate Verify 08/06/2023 8:00 AM EST 83 mL/hr New Bag 08/05/2023 5:07 PM EST 83 mL/hr Enoxaparin (Lovenox) inj 40 mg 40 mg, Subcutaneous, Daily(AM), First dose on Tue08/03/23 at 0900, Until Discontinued, If patient is on warfarin, inform provider if daily INR value is 2 or greater!, Admission Given 08/08/2023 8:04 AM EST 40 mg Abdomen Left Lower Given 08/07/2023 9:05 AM EST 40 mg Ab domen Right Lower Given 08/06/2023 8:00 AM EST 40 mg Ab domen Left Lower fentaNYL (PF) inj 50 mcg 50 mcg, IV Push, Q5 MIN PRN Pain, Severe, Starting on Tue08/02/23 at 1512, Until Tue08/02/23 at 1839, For 3 doses, Administer up to a total of 150 mcg. Administer only postop in PACU When given IV Push its recommended that the dose be given over 3 to 5 minutes., PACU Given 08/02/2023 5:25 PM EST 50 mcg Given 08/02/2023 4:52 PM EST 50 mcg HYDROmorphone (Dilaudid) inj 0.5 mg 0.5 mg, IV Push, Q3H PRN Pain, Mild, Pain, Moderate, Pain, Severe, Pain, Breakthrough, Starting on Tue08/02/23 at 1550, Until Tue08/07/23 at 1143 Given 08/05/2023 10:19 PM EST 0.5 mg Given 08/05/2023 12:58 PM EST 0.5 mg Given 08/05/2023 9:06 AM EST 0.5 mg isolyte-S pH 7.4 infusion Intravenous, at 100 mL/hr, Plasma-LYTE 148, isolyte-S, and isolyte-S pH 7.4 are considered equivalent - including for MAR barcode scanning., CONTINUOUS, Starting on Tue08/02/23 at 1145, Until Tue08/03/23 at 1711, Pre-Op New Bag 08/03/2023 2:54 PM EST 10 0 mL/hr New Bag 08/03/2023 5:12 AM EST 100 mL/hr Rate Verify 08/02/2023 7:04 PM EST 100 mL/hr isolyte-S pH 7.4 infusion Intravenous, Plasma-LYTE 148, isolyte-S, and isolyte-S pH 7.4 are considered equivalent - including for MAR barcode scanning., CONTINUOUS, Starting on Tue08/03/23 at 1745, Until Tue08/03/23 at 1844 Rate Verify 08/03/2023 5:45 PM EST 100 mL/hr LORazepam (Ativan) inj 0.5 mg 0.5 mg, IV Push, Q8H PRN Anxiety, Starting on [place] 08/04/23 at 1127, Until 08/06/23 at 2240, MUST FURTHER DILUTE FOR IV PUSH WITH EQUAL VOLUME OF NSS Given 08/04/2023 10:37 PM EST 0.5 mg LORAzepam (Ativan) tab 0.5 mg 0.5 mg, Oral, Q8H PRN Anxiety, Starting on Tue08/07/23 at 1033, Until 08/08/23 at 1404 Given 08/07/2023 11:32 AM EST 0.5 mg magnesium sulfate 1 g in d5w 100mL LOCKED DOSE 1 g, IV Piggyback, Q1H, 2 doses, First dose on Tue08/07/23 at 1200, Last dose on Tue08/07/23 at 1300, Administer over 60 Minutes, Total dose is 2g Start Infusion 08/07/2023 12:49 PM EST 1 g 100 mL/hr Start Infusion 08/07/2023 11:34 AM EST 1 g 100 mL/h r magnesium sulfate in SWFI iv piggyback 4,000 mg 4,000 mg, IV Piggyback, ONCE, 1 dose, On Tue08/05/23 at 1245, Administer over 4 Hours New Bag 08/05/2023 12:58 PM EST 4,000 mg 25 mL/ hr ondansetron (Zofran) inj 4 mg 4 mg, IV Push, Q6H PRN Other, May use for nausea or vomiting if patient unable to take oral ondansetron, Starting on Tue08/02/23 at 1549, Until [place] 08/04/23 at 0809, Admission Given 08/03/2023 9:44 AM EST 4 mg oxyCODONE (Oxy IR) tab 5 mg 5 mg, Oral, Q4H PRN Pain, Severe, Starting on Tue08/07/23 at 1142, Until 08/08/23 at 1404 oxyCODONE (Roxicodone) oral syrup 2.5 mg 2.5 mg, Oral, Q4H PRN Pain, Moderate, Starting on Tue08/07/23 at 1142, Until 08/08/23 at 1404 prochlorperazine (Compazine) inj 10 mg 10 mg, IV Push, Q6H PRN Nausea, Vomiting, Starting on Tue08/02/23 at 1549, Until 08/08/23 at 1404, Use as second line therapy if nausea and/or vomiting unrelieved with ondansetron. May use if patient unable to take oral prochlorperazine., Admission Given 08/05/2023 5:40 AM EST 10 mg Given 08/04/2023 10:06 AM EST 10 mg Given 08/04/2023 3:04 AM EST 10 mg prochlorperazine (Compazine) tab 10 mg 10 mg, Oral, Q6H PRN Nausea, Vomiting, Starting on Tue08/02/23 at 1549, Until 08/08/23 at 1404, Use as second line therapy if nausea and/or vomiting unrelieved with ondansetron., Admission sodium chloride 0.9 % flush central line 10 mL 10 mL, IV Push, Q8H, First dose on Tue08/05/23 at 0600, Until Discontinued, TO UNUSED PORTS Do not flush if lock, PICC, or central line not in place; IV infusing or unable to flush. Given 08/08/2023 5:48 AM EST 10 mL Given 08/07/2023 9:48 PM EST 10 mL Given 08/07/2023 2:02 PM EST 10 mL sodium chloride 0.9 % flush peripheral martinez 3 mL 3 mL, IV Push, QSHIFT, First dose on Tue08/02/23 at 1630, Until Discontinued, Do not flush if lock, PICC, or central line not in place; IV infusing or unable to flush., Admission Given 08/07/2023 4:00 PM EST 3 mL Given 08/06/2023 4:00 PM EST 3 mL Given 08/05/2023 4:00 PM EST 3 mL thiamine (Vitamin B 1) 250 mg in D5W 100 mL ivpb 250 mg, IV Piggyback, Daily(AM), 3 doses, First dose on Tue08/06/23 at 0900, Last dose on Tue08/08/23 at 0900, Administer over 30 Minutes Start Infusion 08/07/2023 9:05 AM EST 250 mg 220 mL/hr Start Infusion 08/06/2023 8:26 AM EST 250 mg 220 mL/hr thiamine (Vitamin B 1) 500 mg in D5W 100 mL ivpb 500 mg, IV Piggyback, TID 06;12;18, 6 doses, First dose on Tue08/03/23 at 1630, Last dose on Tue08/05/23 at 1200, Administer over 30 Minutes New Bag 08/05/2023 11:34 AM EST 500 mg 220 mL/hr New Bag 08/05/2023 6:00 AM EST 500 mg 220 mL/hr Start Infusion 08/04/2023 5:55 PM EST 500 mg 220 mL/hr THIAMINE (vitamin B-1) tab 100 mg 100 mg, Oral, Daily(AM), First dose on Tue08/08/23 at 0900, Until Discontinued Given 08/08/2023 8:04 AM EST 100 mg traMADol ER (Ultram ER) tab 200 mg 200 mg, Oral, PREOP, First dose on Tue08/02/23 at 1145, Last dose on Tue08/02/23 at 1145, For 1 dose, Administer 60 minutes prior to OR, Pre-Op Given 08/02/2023 11:40 AM EST 200 mg trimethobenzamide (Tigan) inj 100 mg 100 mg, Intramuscular, QID(AM/NOON/PM/HS), First dose on [place] 08/04/23 at 0845, Last dose on Tue08/05/23 at 2200, For 2 days Given 08/05/2023 10:11 PM EST 100 mg Thigh Left Given 08/05/2023 6:10 PM EST 100 mg Th igh Left Lateral Given 08/05/2023 11:33 AM EST 100 mg T high Left Lateral vitamin b-12 (Cyanocobalamin) inj 1,000 mcg 1,000 mcg, Intramuscular, ONCE, On [place] 08/04/23 at 1730, For 1 dose Given 08/04/2023 5:56 PM EST 1,000 mcg A rm Right Upper documented in this encounter Active and Recently Administered Medications Times are shown in EST. Scheduled Medication Order 08/06/2023 08/07/2023 08/08/2023 Acetaminophen (Ofirmev) inj 1,000 mg (COMPLETED) 1,000 mg, Intravenous, Q8H, 3 doses, First dose (after last reorder) on 08/06/23 at 0700, Last dose on Tue08/06/23 at 2200, Administer over 15 Minutes, Administer undiluted over 15 minutes! NOTE: Maximum of 4000 mg per 24 hours of acetaminophen from all acetaminophen containing products., Indication: Patient is strictly NPO 0759 (Start Infusion - Provider: Keisha Jones RN)0814 (Finish Infusion - Provider: Keisha Jones RN)1345 (New Bag - Provider: Keisha Jones RN)2103 (New Bag - Provider: Mirta Romano RN) Acetaminophen (Ofirmev) inj 1,000 mg (CANCELED) 1,000 mg, Intravenous, Q8H, 3 doses, First dose (after last reorder) on 08/06/23 at 2315, Last dose on Tue08/07/23 at 1400, Administer over 15 Minutes, Administer undiluted over 15 minutes! NOTE: Maximum of 4000 mg per 24 hours of acetaminophen from all acetaminophen containing products., Indication: Patient is strictly NPO 2315 (Not Given - Provider: Mirta Romano RN - Reason: Parameter(s) Not Met - Comment: Pt just had dose at 2100) 0529 (New Bag - Provider: Mirta Romano RN) Acetaminophen (Tylenol) tab 975 mg 975 mg, Oral, Q8H, First dose on Tue08/07/23 at 1400, Until Discontinued, Maximum of 4 grams (4000 mg) per day. 1402 (Given - Provider: Keisha Jones RN)2200 (Not Given - Provider: Mirta Romano RN - Reason: Refused-Notify Provider - Comment: pt states "no pain") 0548 (Given - Provider: Mirta Romano RN) Enoxaparin (Lovenox) inj 40 mg 40 mg, Subcutaneous, Daily(AM), First dose on Tue08/03/23 at 0900, Until Discontinued, If patient is on warfarin, inform provider if daily INR value is 2 or greater!, Admission 0800 (Given - Provider: Keisha Jones RN) 0905 (Given - Provider: Keisha Jones RN) 0804 (Given - Provider: Keisha Jones RN) magnesium sulfate 1 g in d5w 100mL LOCKED DOSE (COMPLETED) 1 g, IV Piggyback, Q1H, 2 doses, First dose on Tue08/07/23 at 1200, Last dose on Tue08/07/23 at 1300, Administer over 60 Minutes, Total dose is 2g 1134 (Start Infusion - Provider: Keisha Jones RN)1235 (Finish Infusion - Provider: Keisha Jones RN)1249 (Start Infusion - Provider: Keisha Jones RN)1349 (Finish Infusion - Provider: Keisha Jones RN) sodium chloride 0.9 % flush central line 10 mL 10 mL, IV Push, Q8H, First dose on Tue08/05/23 at 0600, Until Discontinued, TO UNUSED PORTS Do not flush if lock, PICC, or central line not in place; IV infusing or unable to flush. 0800 (Given - Provider: Keisha Jones RN)1345 (Given - Provider: Keisha Jones RN)2103 (Given - Provider: Mirta Romano RN) 0529 (Given - Provider: Mirta Romano RN)1402 (Given - Provider: Keisha Jones RN)2148 (Given - Provider: Mirta Romano RN) 0548 (Given - Provider: Mirta Romano RN) sodium chloride 0.9 % flush peripheral martinez 3 mL 3 mL, IV Push, QSHIFT, First dose on Tue08/02/23 at 1630, Until Discontinued, Do not flush if lock, PICC, or central line not in place; IV infusing or unable to flush., Admission 0000 (Not Given - Provider: Xi Moore RN - Reason: Parameter(s) Not Met)0800 (Not Given - Provider: Keisha Jones RN - Reason: Parameter(s) Not Met - Comment: fluids infusing)1600 (Given - Provider: Ina Mcintyre RN) 0000 (Not Given - Provider: Mirta Romano RN - Reason: Parameter(s) Not Met)0800 (Not Given - Provider: Keisha Jones RN - Reason: Parameter(s) Not Met - Comment: fluids infusing)1600 (Given - Provider: Onofre Desouza RN) 0000 (Not Given - Provider: Mirta Romano RN - Reason: Parameter(s) Not Met)0800 (Not Given - Provider: Keisha Jones RN - Reason: Parameter(s) Not Met - Comment: fluids infusing) thiamine (Vitamin B 1) 250 mg in D5W 100 mL ivpb (CANCELED) 250 mg, IV Piggyback, Daily(AM), 3 doses, First dose on Tue08/06/23 at 0900, Last dose on Tue08/08/23 at 0900, Administer over 30 Minutes 0826 (Start Infusion - Provider: Keisha Jones RN)0856 (Finish Infusion - Provider: Keisha Jones RN) 0905 (Start Infusion - Provider: Keisha Jones RN)0935 (Finish Infusion - Provider: Keisha Jones RN) THIAMINE (vitamin B-1) tab 100 mg 100 mg, Oral, Daily(AM), First dose on Tue08/08/23 at 0900, Until Discontinued 0804 (Given - Provider: Keisha Jones RN) Continuous Medication Order 08/06/2023 08/07/2023 08/08/2023 Adult PPN Peripheral + Zinc () 2,000 mL, Intravenous, [id number], Starting on 08/06/23 at 1800, Until Tue08/07/23 at 1759, For 24 hours, Infuse using a 1.2 micron in-line filter 1539 (New Bag - Provider: Ina Mcintyre RN) 0853 (Rate Verify - Provider: Keisha Jones RN)1535 (Stopped - Provider: Onofre Desouza RN) Adult PPN Peripheral + Zinc 2,000 mL, Intravenous, [id number], Starting on 08/07/23 at 1800, Until Tue08/08/23 at 1404, For 24 hours, Infuse using a 1.2 micron in-line filter 1540 (New Bag - Provider: Onofre Desouza RN) 0804 (Stopped - Provider: Keisha Jones RN - Comment: order for patient discharge.) Adult PPN Peripheral () 2,000 mL, Intravenous, [id number], Starting on Tue08/05/23 at 1800, Until 08/06/23 at 1759, For 24 hours, Infuse using a 1.2 micron in-line filter 0800 (Rate Verify - Provider: Keisha Jones RN) PRN Medication Order 08/06/2023 08/07/2023 08/08/2023 LORAzepam (Ativan) tab 0.5 mg 0.5 mg, Oral, Q8H PRN Anxiety, Starting on 08/07/23 at 1033, Until 08/08/23 at 1404 1132 (Given - Provider: Lisa Jones RN) oxyCODONE (Oxy IR) tab 5 mg 5 mg, Oral, Q4H PRN Pain, Severe, Starting on 08/07/23 at 1142, Until 08/08/23 at 1404 oxyCODONE (Roxicodone) oral syrup 2.5 mg 2.5 mg, Oral, Q4H PRN Pain, Moderate, Starting on 08/07/23 at 1142, Until 08/08/23 at 1404 prochlorperazine (Compazine) inj 10 mg(Linked Group 1) 10 mg, IV Push, Q6H PRN Nausea, Vomiting, Starting on 08/02/23 at 1549, Until 08/08/23 at 1404, Use as second line therapy if nausea and/or vomiting unrelieved with ondansetron. May use if patient unable to take oral prochlorperazine., Admission prochlorperazine (Compazine) tab 10 mg(Linked Group 1) 10 mg, Oral, Q6H PRN Nausea, Vomiting, Starting on 08/02/23 at 1549, Until 08/08/23 at 1404, Use as second line therapy if nausea and/or vomiting unrelieved with ondansetron., Admission Linked Groups Order Group 1: prochlorperazine (Compazine) tab 10 mgJump to med 10 mg, Oral, Q6H PRN Nausea, Vomiting, Starting on 08/02/23 at 1549, Until 08/08/23 at 1404, Use as second line therapy if nausea and/or vomiting unrelieved with ondansetron., Admission Or prochlorperazine (Compazine) inj 10 mgJump to med 10 mg, IV Push, Q6H PRN Nausea, Vomiting, Starting on 08/02/23 at 1549, Until 08/08/23 at 1404, Use as second line therapy if nausea and/or vomiting unrelieved with ondansetron. May use if patient unable to take oral prochlorperazine., Admission documented in this encounter Advance Directives Latest [...] the patient have Health Care Power of Technology Applications Teacher? No Full Code 03/15/2018 8:20 AM 03/16/2018 2:36 PM This or enrique reflects the patients wishes and were consensually agreed upon. Question Answer Comments Discussion of Advance Directives occurred with: Patient Does the patient have a Living Will? No Does the patient have Health Care Power of Technology Applications Teacher? No Full Code 03/15/2018 6:20 AM 03/15/2018 8:20 AM This or enrique reflects the patients wishes and were consensually agreed upon.
--- OUTSIDE RECORDS SUMMARY | 2023-09-01 12:12 | External Medical Summary ---
Author Name Unknown Address Unknown Organization [id number]:[place] [place] [address] [facility] [address] Laboratory Report Ordering Provider Test Date Status MARV NESS 08/07/2023 06:34:00 Final Observation Date Value Abnormality Reference (Units ) Status BUN 08/07/2023 06:34:00 16 6-20 (mg/dL) Final Creatinine 08/07/2023 06:34:00 0.5 Below low normal 0.6-1.2 (mg/dL) Final Glomerular filtration rate/1.73 sq M.predicted [Volume Rate/Area] in Serum, Plasma or Blood by Creatinine-based formula (CKD-EPI) 08/07/2023 06:34:00 >90 >=60 (mL/min) Final eGFR is calculated based on the CKD-EPI 2020 equation SODIUM 08/07/2023 06:34:00 131 Below low normal 135 -146 (mmol/L) Final Potassium 08/07/2023 06:34:00 4.5 3.5-5.1 (m mol/L) Final Cl 08/07/2023 06:34:00 99 98-107 (mm ol/L) Final CO2 08/07/2023 06:34:00 22 22-32 (mmo l/L) Final Anion gap 08/07/2023 06:34:00 10 7-15 (mmol /L) Final Glucose 08/07/2023 06:34:00 117 70-120 (mg /dL) Final Calcium 08/07/2023 06:34:00 9.6 8.4-10.2 ( mg/dL) Final Performing Location LAB[facility]ATORY [facility] [place] [address] [facility] [address]
--- OUTSIDE RECORDS SUMMARY | 2023-09-01 12:12 | External Medical Summary ---
Author Name Unknown Address Unknown Organization [id number]:LABORATORY [facility] - [address] [facility] [address] Laboratory Report Ordering Provider Test Date Status BRITTNEY MCMANUS 08/07/2023 06:34:00 Final Observation Date Value Abnormality Reference (Units ) Status Magnesium 08/07/2023 06:34:00 1.8 1.5-2.6 (m g/dL) Final Performing Location [facility] - [address] [facility] [address]
--- OUTSIDE RECORDS SUMMARY | 2023-09-01 12:12 | External Medical Summary ---
Author Name Unknown Address Unknown Organization [id number]:LABORATORY [facility] - [address] [facility] [address] Laboratory Report Ordering Provider Test Date Status BRITTNEY MCMANUS 08/05/2023 07:28:00 Final Observation Date Value Abnormality Reference (Units ) Status Phosphate 08/05/2023 07:28:00 3.0 2.5-4.8 (m g/dL) Final Performing Location [facility] - [address] [facility] [address]
--- OUTSIDE RECORDS SUMMARY | 2023-09-01 12:12 | External Medical Summary ---
Author Name Unknown Address Unknown Organization [id number]:LABORATORY [facility] [place] - [address] [facility] [address] Laboratory Report Ordering Provider Test Date Status MARV NESS 08/08/2023 08:22:00 Final Observation Date Value Abnormality Reference (Units ) Status WBC, Total 08/08/2023 08:22:00 9.47 4.00-10.80 (K/uL) Final RBC 08/08/2023 08:22:00 3.60 4.50-5.25 (M/uL) Final Hemoglobin 08/08/2023 08:22:00 10.2 Below low normal 14.0-16.8 (g/dL) Final HCT 08/08/2023 08:22:00 30.6 Below low normal 40.0-48.4 (%) Final MCV 08/08/2023 08:22:00 85.0 82.0-99.5 (fL) Final MCH 08/08/2023 08:22:00 28.3 27.0-34.0 (pg) Final MCHC 08/08/2023 08:22:00 33.3 32.0-36.0 (g/dL) Final RDW 08/08/2023 08:22:00 17.8 11.5-15.5 (%) Final Platelets 08/08/2023 08:22:00 323 140-400 (K/uL) Final MPV 08/08/2023 08:22:00 9.9 6.6-11.1 (fL) Final Nucleated erythrocytes/100 leukocytes [Ratio] in Blood by Automated count 08/08/2023 08:22:00 0 <=0 (/100 WBCs) Final Performing Location LABORATORY [facility] [place] - [address] [facility] [address]
--- OUTSIDE RECORDS SUMMARY | 2023-09-01 12:12 | External Medical Summary ---
Author Name Unknown Address Unknown Organization [id number]:[place] [facility] [place] [facility] [address] [address] Laboratory Report Ordering Provider Test Date Status BELINDA MCGHEE 08/06/2023 06:43:00 Final Observation Date Value Abnormality Reference (Units ) Status Albumin 08/06/2023 06:43:00 4.1 3.8-5.0 (g/dL) Final AST (Aspartate aminotransferase) 08/06/2023 06:43:00 48 10-50 (U/L) Final Alk Phos 08/06/2023 06:43:00 56 35-130 (U/L) Final ALT (Alanine aminotransferase) 08/06/2023 06:43:00 66 Above high normal 10-50 (U/L) Final Bilirubin, Total 08/06/2023 06:43:00 0.7 <=1.2 (mg/dL) Final Bilirubin, Direct 08/06/2023 06:43:00 0.2 0.0-0.3 (mg/dL) Final Protein 08/06/2023 06:43:00 6.9 6.0-8.3 (g/dL) Final Performing Location [facility] [place] [address] [place] [address]
--- OUTSIDE RECORDS SUMMARY | 2023-09-01 12:12 | External Medical Summary ---
Author Name Unknown Address Unknown Organization [id number]:LABORATORY [facility] - [address] [facility] [address] Laboratory Report Ordering Provider Test Date Status BRITTNEY MCMANUS 08/08/2023 08:22:00 Final Observation Date Value Abnormality Reference (Units ) Status Phosphate 08/08/2023 08:22:00 4.2 2.5-4.8 (m g/dL) Final Performing Location LAB[facility] - [address] [facility] [address]
--- OUTSIDE RECORDS SUMMARY | 2023-09-01 12:12 | External Medical Summary ---
Author Name Unknown Address Unknown Organization K01:LABORATORY [place] [address] [address] [facility] [address] Laboratory Report Ordering Provider Test Date Status BELINDA MCGHEE 08/06/2023 06:43:00 Final Observation Date Value Abnormality Reference (Units ) Status Calcium.ionized [Moles/volume] in Serum or Plasma by Ion-selective membrane electrode (ISE) 08/06/2023 06:43:00 1.25 1.13-1.32 (mmol/L) Final This test was developed and its performance characteristics dtermined by [employer]. It has not been cleared or approved by the [place] Food and Drug Administration Performing Location LABORATORY [place] [address] [address] [facility] [address]
--- OUTSIDE RECORDS SUMMARY | 2023-09-01 12:12 | External Medical Summary ---
Author Name Unknown Address Unknown Organization [id number]:[place] [facility] [place] [address] [facility] [address] Laboratory Report Ordering Provider Test Date Status MARV NESS 08/06/2023 06:43:00 Final Observation Date Value Abnormality Reference (Units ) Status BUN 08/06/2023 06:43:00 15 6-20 (mg/dL) Final Creatinine 08/06/2023 06:43:00 0.4 Below low normal 0.6-1.2 (mg/dL) Final Glomerular filtration rate/1.73 sq M.predicted [Volume Rate/Area] in Serum, Plasma or Blood by Creatinine-based formula (CKD-EPI) 08/06/2023 06:43:00 >90 >=60 (mL/min) Final eGFR is calculated based on the CKD-EPI 2020 equation SODIUM 08/06/2023 06:43:00 135 135-146 (m mol/L) Final Potassium 08/06/2023 06:43:00 3.9 3.5-5.1 (m mol/L) Final Cl 08/06/2023 06:43:00 100 98-107 (mm ol/L) Final CO2 08/06/2023 06:43:00 23 22-32 (mmo l/L) Final Anion gap 08/06/2023 06:43:00 12 7-15 (mmol /L) Final Glucose 08/06/2023 06:43:00 126 Above high normal 70 -120 (mg/dL) Final Calcium 08/06/2023 06:43:00 9.5 8.4-10.2 ( mg/dL) Final Performing Location [place] [facility] [place] [address] [facility] [address]
--- OUTSIDE RECORDS SUMMARY | 2023-09-01 12:12 | External Medical Summary ---
Author Name Unknown Address Unknown Organization K01:LABORATORY [facility] - [address] [facility] [address] Laboratory Report Ordering Provider Test Date Status BRITTNEY MCMANUS 08/07/2023 06:34:00 Final Observation Date Value Abnormality Reference (Units ) Status Phosphate 08/07/2023 06:34:00 3.9 2.5-4.8 (m g/dL) Final Performing Location [facility] - [address] [facility] [address]
--- OUTSIDE RECORDS SUMMARY | 2023-09-01 12:12 | External Medical Summary ---
Author Name Unknown Address Unknown Organization K01:LABORATORY [facility] - [address] [facility] [address] Laboratory Report Ordering Provider Test Date Status BRITTNEY MCMANUS 08/06/2023 06:43:00 Final Observation Date Value Abnormality Reference (Units ) Status Magnesium 08/06/2023 06:43:00 1.9 1.5-2.6 (m g/dL) Final Performing Location LAB[facility] - [address] [facility] [address]
--- OUTSIDE RECORDS SUMMARY | 2023-09-01 12:12 | External Medical Summary ---
Author Name Unknown Address Unknown Organization K01:[facility] [place] [facility] [address] [facility] [address] [facility] [address] Laboratory Report Ordering Provider Test Date Status MARV NESS 08/07/2023 06:34:00 Final Observation Date Value Abnormality Reference (Units ) Status WBC, Total 08/07/2023 06:34:00 10.71 4.00-10.80 (K/uL) Final RBC 08/07/2023 06:34:00 3.40 4.50-5.25 (M/uL) Final Hemoglobin 08/07/2023 06:34:00 9.7 Below low normal 14.0-16.8 (g/dL) Final HCT 08/07/2023 06:34:00 30.0 Below low normal 40.0-48.4 (%) Final MCV 08/07/2023 06:34:00 88.2 82.0-99.5 (fL) Final MCH 08/07/2023 06:34:00 28.5 27.0-34.0 (pg) Final MCHC 08/07/2023 06:34:00 32.3 32.0-36.0 (g/dL) Final RDW 08/07/2023 06:34:00 18.4 11.5-15.5 (%) Final Platelets 08/07/2023 06:34:00 304 140-400 (K/uL) Final MPV 08/07/2023 06:34:00 10.0 6.6-11.1 (fL) Final Nucleated erythrocytes/100 leukocytes [Ratio] in Blood by Automated count 08/07/2023 06:34:00 0 <=0 (/100 WBCs) Final Performing Location LAB[facility] [place] - [address] [facility] [address]
--- OUTSIDE RECORDS SUMMARY | 2023-09-01 12:12 | External Medical Summary ---
Author Name Unknown Address Unknown Organization K01:[facility]ORY [facility] [place] - [facility] [address] [facility] [address] Laboratory Report Ordering Provider Test Date Status MARV NESS 08/06/2023 06:43:00 Final Observation Date Value Abnormality Reference (Units ) Status WBC, Total 08/06/2023 06:43:00 11.26 Above high normal 4.00-10.80 (K/uL) Final RBC 08/06/2023 06:43:00 3.40 4.50-5.25 (M/uL) Final Hemoglobin 08/06/2023 06:43:00 9.9 Below low normal 14.0-16.8 (g/dL) Final HCT 08/06/2023 06:43:00 29.6 Below low normal 40.0-48.4 (%) Final MCV 08/06/2023 06:43:00 87.1 82.0-99.5 (fL) Final MCH 08/06/2023 06:43:00 29.1 27.0-34.0 (pg) Final MCHC 08/06/2023 06:43:00 33.4 32.0-36.0 (g/dL) Final RDW 08/06/2023 06:43:00 18.8 11.5-15.5 (%) Final Platelets 08/06/2023 06:43:00 281 140-400 (K/uL) Final MPV 08/06/2023 06:43:00 9.7 6.6-11.1 (fL) Final Nucleated erythrocytes/100 leukocytes [Ratio] in Blood by Automated count 08/06/2023 06:43:00 0 <=0 (/100 WBCs) Final Performing Location LAB[facility]ORY [facility] [place] - [address] [place] [address]
--- OUTSIDE RECORDS SUMMARY | 2023-09-01 12:12 | External Medical Summary ---
Author Name Unknown Address Unknown Organization K01:[place] [facility] [place] [address] [facility] [address] Laboratory Report Ordering Provider Test Date Status MARV NESS 08/08/2023 08:22:00 Final Observation Date Value Abnormality Reference (Units ) Status BUN 08/08/2023 08:22:00 16 6-20 (mg/dL) Final Creatinine 08/08/2023 08:22:00 0.5 Below low normal 0.6-1.2 (mg/dL) Final Glomerular filtration rate/1.73 sq M.predicted [Volume Rate/Area] in Serum, Plasma or Blood by Creatinine-based formula (CKD-EPI) 08/08/2023 08:22:00 >90 >=60 (mL/min) Final eGFR is calculated based on the CKD-EPI 2020 equation SODIUM 08/08/2023 08:22:00 126 Below low normal 135 -146 (mmol/L) Final Potassium 08/08/2023 08:22:00 4.4 3.5-5.1 (m mol/L) Final Cl 08/08/2023 08:22:00 93 Below low normal 98- 107 (mmol/L) Final CO2 08/08/2023 08:22:00 22 22-32 (mmo l/L) Final Anion gap 08/08/2023 08:22:00 11 7-15 (mmol /L) Final Glucose 08/08/2023 08:22:00 116 70-120 (mg /dL) Final Calcium 08/08/2023 08:22:00 9.3 8.4-10.2 ( mg/dL) Final Performing Location LAB[facility]ORY [facility] [place] [address] [facility] [address]
--- OUTSIDE RECORDS SUMMARY | 2023-09-01 12:12 | External Medical Summary ---
Author Name Unknown Address Unknown Organization K01:LABORATORY [facility] - [address] [facility] [address] Laboratory Report Ordering Provider Test Date Status BRITTNEY MCMANUS 08/06/2023 06:43:00 Final Observation Date Value Abnormality Reference (Units ) Status Phosphate 08/06/2023 06:43:00 3.7 2.5-4.8 (m g/dL) Final Performing Location LAB[facility]ORY [facility] - [address] [facility] [address]
--- OUTSIDE RECORDS SUMMARY | 2023-09-01 12:13 | External Medical Summary | Summary of Care ---
Author Name Unknown Organization [facility] Address [address] [place] [address] Phone [phone] Care Team Providers Care Wage Hand Name Role Phone Fatoumata Rasheed PA-C Primary Care Provider [phone] Reason for Visit * Reason Onset Date Comments FYI 04/19/2023 Bam patient. Encounter Details Date Type Department Care Team (Late st Contact Info) Description 04/19/2023 Telephone Hematology/Oncology Rosalba Flores [place] DEPT CLOSED - [facility] [address] [facility], Scheduling [address] [place] [address] (Bam patient.) Allergies Active Allergy Reactions Criticality Noted Date Comments Carbamazepine Rash Medium 02/20/2018 documented as of this encounter (statuses as of 07/19/2023) Medications Medication Sig Dispensed Refills Start Date [...] needed for Nausea. 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 Mary Grace stated that patients assistance application has been approved and she was able to have the entire [employer] phone bill covered for, so that is paid in full. documented in this encounter Plan of Treatment Upcoming Encounters Date Type Department Care Team (Latest Contact Info) Description 08/02/2023 10:00 AM EST Immunization/Inj ection Hematology/Oncolo gy Treatment, [place] [address] [facility] [place] [address] Nurse, Med 4 [address] [facility] [place] [address] 08/02/2023 10:21 AM EST Hospital Encounter OR [facility], OPERATING ROOM [facility] [address] [place] [address] Praveen Edmonds MD [address] [place] [address] 08/02/2023 10:21 AM EST - 08/02/2023 1:46 PM EST Surgery OR [facility], OPERATING ROOM [facility] [address] [place] [address] Praveen Edmonds MD [address] [place] [address] GASTRECTOMY TOTAL WITH ESOPHAGOENTEROSTOMY 09/13/2023 8:45 AM EST Office Visit Hematology/Oncolo gy Rosalba Flores [place] 200 [facility] [place] [address] Cipriano Kuhn MD [address] [facility] [place] [address] 09/13/2023 9:15 AM EST Immunization/Inj ection Hematology/Oncolo gy Treatment, [place] [facility] [place] [address] Nurse, Med [address] [place] [address] Scheduled Procedures Name Priority Associated Diagnoses Date/Ti me GASTRECTOMY TOTAL WITH ESOPHAGOENTEROSTOMY 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) 08/02/2023 10:21 AM EST NEEDLE CATHETER OR TUBE JEJU NOSTOMY FOR ALIMENTATION 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) 08/02/2023 10:21 AM EST ESOPHAGOGASTRODUODENOSCOPY ( EGD), FLEXIBLE, TRANSORAL, DIAGNOSTIC Recall [...] this encounter Medical Devices Implanted Type Area Tag Maker Device Identifier Shelf Expiration Date Model / Serial / Lot Cement Hydroset Injectable 5cc - [id number] Implanted:Qty : 1 on 03/15/2018 by Ronak Khoury MD at OR [facility] Left: Head JOHN 11/09/2019 [id number] / / [id number] Stent Wallf Esoph [id number] - [id number] Implanted:Qty : 1 on 04/01/2023 by Karson Goddard MD at ENDOSCOPY [facility] N/A: Esophagus [employer] : ENDOSCOPY [id number] 09/09/2024 [id number] / / [id number] Power Port 8fr Sngl Lumen Plas - [id number] Implanted:Qty : 1 on 04/19/2023 by Thaddeus Brown DO at OR [facility] Right: Chest CR BARD : PERIPHERAL VASCULAR [id number] 06/14/2024 [id number] / / [id number] documented as of this encounter Advance Directives Latest Code Status on File Code Status Date Activated Date Inactivated Comments Full Code 03/31/2023 7:07 PM 04/03/2023 3:41 PM This order reflects the patients wishes and were consensually agreed upon. Question Answer Comments Discussion of Advance Directives occurred with: Patient Does the patient have a Living Will? No Does the patient have Health Care Power of Traffic Engineer? No Code Status History Code Status Date Activated Date Inactivated Comments Full Code 03/15/2018 8:20 AM 03/16/2018 2:36 PM This or enrique reflects the patients wishes and were consensually agreed upon. Question Answer Comments Discussion of Advance Directives occurred with: Patient Does the patient have a Living Will? No Does the patient have Health Care Power of Traffic Engineer? No Full Code 03/15/2018 6:20 AM 03/15/2018 8:20 AM This or enrique reflects the patients wishes and were consensually agreed upon. Care Teams Wage Hand Relationship Specialty Start Date End Date Fatoumata Rasheed PA-C [address] [place] [address] [place] [address] PCP - General Physician Housekeeping Attendant 03/30/23 05/03/23 documented as of this encounter
--- OUTSIDE RECORDS SUMMARY | 2023-09-01 12:13 | External Medical Summary ---
Author Name Unknown Address Unknown Organization : Laboratory Report Ordering Provider Test Date Status VIVIANA LYON 08/03/2023 16:56:00 Final Observation Date Value Abnormality Reference (Units ) Status Copper 08/03/2023 16:56:00 73 70-175 (mc g/dL) Final This test was developed and its analytical performance
characteristics have been determined by [employer] [place], [place]. It has
not been cleared or approved by the U.S. Food and Drug
Administration. This assay has been validated pursuant
to the CLIA regulations and is used for clinical
purposes.

Test Performed at:
[facility]
[address] [facility]
[place] [address]
Tom Sanches M.D., Ph.D.,Director of Laboratories Performing Location
--- OUTSIDE RECORDS SUMMARY | 2023-09-01 12:13 | External Medical Summary ---
Author Name Unknown Address Unknown Organization K01:[facility] [place] [address] [facility] [place] [address] Laboratory Report Ordering Provider Test Date Status JENNIE LYONSUF 08/03/2023 16:56:00 Final Observation Date Value Abnormality Reference (Units ) Status Vitamin B12 08/03/2023 16:56:00 544 515-2172 (pg/mL) Final Performing Location [facility] [address] [facility] [address]
--- OUTSIDE RECORDS SUMMARY | 2023-09-01 12:13 | External Medical Summary | Summary of Care ---
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 Procedures PET CT SKULL BASE TO MID-THIGH Praveen Edmonds MD [address] [place] [address] Referral ID Status Reason Start Date Expiration Date V isits Requested Visits Authorized [id number] Authorized Precert 06/29/2023 08/28/2023 999 999 Reason for Visit * Precert (Within 10 days (routine)) - Authorized Specialty Diagnoses / Procedures Referred By Chary angeles Referred To Contact Radiology Diagnoses 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 Procedures PET CT SKULL BASE TO MID-THIGH Praveen Edmonds MD [address] [place] [address] Referral ID Status Reason Start Date Expiration Date V isits Requested Visits Authorized [id number] Authorized Precert 06/29/2023 08/28/2023 999 999 Encounter Details Date Type Department Care Team (Latest Contact Info) Description 07/06/2023 1:02 PM EST - 07/06/2023 11:59 PM EST Hospital Encounter PET CT IMAGING, [facility] [address] [place] [address] Arrived Discharge Disposition: Home - Self Care Allergies Active Allergy Reactions Criticality Noted Date Comments Carbamazepine Rash Medium 02/20/2018 documented as of this encounter (statuses as of 07/07/2023) Medications Medication Sig Dispensed Refills Start Date [...] Pain, Breakthrough. 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 30 Tablet 2 06/29/2023 Active Hospital, Clinic, or Other Facility Administered Medication Ordered Dose Route Frequency Start Date End Date Status sodium chloride 0.9 % flush/inj 10 mL 10 mL IV PUSH ONCE 07/06/2023 07/06/2023 Ended documented as of this encounter (statuses as of 07/07/2023) Active Problems Problem Noted Date Diagnosed Date [...] as of this encounter (statuses as of 07/07/2023) Immunizations Name Administration Dates Next Due TDAP [...] No 03/31/2023 documented as of this encounter Plan of Treatment Upcoming Encounters Date Type Department Care Team (Late st Contact Info) Description 08/02/2023 Hospital Encounter [facility], [facility]PER[facility] ROOM [facility] [address] [place] [address] Praveen Edmonds MD [address] [place] [address] 08/02/2023 10:00 AM EST Immunization/Injecti on Hematology/Oncology Treatment, [place] [address] [place] [address] Nurse, Med 4 [address] [facility] [place] [address] 09/13/2023 8:45 AM EST Office Visit Hematology/Oncology [facility] [address] [place] [address] Cipriano Kuhn MD [address] [facility] [place] [address] 09/13/2023 9:15 AM EST Immunization/Injecti on Hematology/Oncology Treatment, [place] [address] [place] [address] Nurse, Med 4 [address] [facility] [place] [address] Scheduled Procedures Name Priority Associated Diagnoses Date/Ti me GASTRECTOMY TOTAL WITH ESOPHAGOENTEROSTOMY 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) NEEDLE CATHETER OR TUBE JEJU NOSTOMY FOR ALIMENTATION 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) ESOPHAGOGASTRODUODENOSCOPY ( EGD), FLEXIBLE, TRANSORAL, DIAGNOSTIC Recall [...] this encounter Medical Devices Implanted Type Area Motor Coach Operator Device Identifier Shelf Expiration Date Model / Serial / Lot Cement Hydroset Injectable 5cc - [id number] Implanted:Qty : 1 on 03/15/2018 by Ronak Khoury MD [place] [facility] Left: Head JOHN 11/09/2019 [id number] / / [id number] Stent Wallf Esoph [id number] - [id number] Implanted:Qty : 1 on 04/01/2023 by Karson Goddard MD at [place]OSCOPY [facility] N/A: Esophagus [employer] : ENDOSCOPY [id number] 09/09/2024 [id number] / / [id number] Power Port 8fr Sngl Lumen Plas - [id number] Implanted:Qty : 1 on 04/19/2023 by Thaddeus Brown DO at OR [facility] Right: Chest CR BARD : PERIPHERAL VASCULAR [id number] 06/14/2024 [id number] / / [id number] documented as of this encounter Procedures Procedure Name Priority Date/Time Associated Diagnosis Comments PET CT SKULL BASE TO MID-THIGH Routine 07/06/2023 2:54 PM EST 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 Subsequent evaluation. COMPARISON: June 07, 2023 FDG-PET/CT. TECHNIQUE: The patient's fasting blood glucose was 93 mg/dL. Approximately 60 minutes following intravenous injection of 12.5 mCi 56-mevpri-7-deoxyglucose (FDG) within the right antecubital fossa and oral contrast Gastroview administration, low dose noncontrast CT images were obtained at 5 mm slice thickness from the skull basethrough mid thighs. Then, emission PET images were obtained through the same region. The noncontrast CT was used for anatomic localization and photon attenuation correction of the PET scan. The standardized uptake values (SUV) reported below are maximum values within a region of interest. FINDINGS: BACKGROUND METABOLIC ACTIVITY - Lower limit, mediastinal blood pool: SUV 2.2. - Upper limit, liver: SUV 4. HEAD Symmetric activity within the visualized skull base. NECK Metabolically-active cervical lymph nodes: Absent. CHEST LINES DEVICES: Implantable right IJV approach central venous catheter terminates in the cavoatrial junction. Interval removal esophageal stent. LUNG Focal metabolic activity within lungs: Absent. METABOLICALLY-ACTIVE LYMPH NODES Mediastinal: Absent. Hilar: Absent. Axillary: Absent. MEDIASTINUM Complete resolution of metabolic activity and wall thickening of the distal esophagus and gastric cardia. Normal heart size. Small pericardial effusion. VESSELS Calcified coronary artery plaque burden: Mild. Aortic valvular calcification: Absent. Thoracic aortic aneurysm: Absent. ABDOMEN LINES DEVICES: Absent. ABDOMINAL WALL/PERITONEUM: No ascites. INTRAPERITONEUM Metabolically-active intraperitoneal lymph nodes: Absent. Liver / spleen: Symmetric low intensity homogeneous metabolic activity throughout the parenchyma of the liver and spleen. Biliary: Unremarkable. Bowel: No small bowel dilatation or evidence for obstruction. Normal caliber appendix. Diverticulosis of the descending colon to sigmoid colon. No diverticulitis. RETROPERITONEUM Metabolically-active retroperitoneal lymph nodes: Absent. Adrenal glands: Symmetric low metabolic activity throughout both adrenal glands. Pancreas: Homogeneous low-level metabolic activity throughout the pancreatic parenchyma. No ductal dilatation. Kidneys: No renal or ureteral calculus. No hydronephrosis. Excreted radiotracer activity within the renal collecting systems and ureters. Abdominal aorta: No aneurysm. PELVIS Metabolically-active pelvic lymph nodes: Absent. MUSCULOSKELETAL Focal metabolic activity within bones: Absent. IMPRESSION: 1. Complete response to therapy: Resolution of metabolic activity and wall thickening within distal esophageal/gastric cardia mass. 2. Small pericardial effusion. Procedure Note Cristiano Novoa MD - 07/06/2023 EXAM: PET CT SKULL BASE TO MID-THIGH - 07/06/2023 - 07/06/2023 2:54 pm HISTORY 58 y/o ,M,Lower esophageal/GE junction adenocarcinoma regional lymph nodeinvolvement, post neoadjuvant chemotherapy.. Subsequent evaluation. COMPARISON: June 07, 2023 FDG-PET/CT. TECHNIQUE: The patient's fasting blood glucose was 93 mg/dL. Approximately 60minutes following intravenous injection of 12.5 bMz61-snglfm-5-jfkyjzrmxymq (FDG) within the right antecubital fossa and oralcontrast Gastroview administration, low dose noncontrast CT images wereobtained at 5 mm slice thickness from the skull basethrough mid thighs.Then, emission PET images were obtained through the same region. Thenoncontrast CT was used for anatomic localization and photon attenuationcorrection of the PET scan. The standardized uptake values (SUV) reportedbelow are maximum values within a region of interest. FINDINGS: BACKGROUND METABOLIC ACTIVITY - Lower limit, mediastinal blood pool: SUV 2.2. - Upper limit, liver: SUV 4. HEAD Symmetric activity within the visualized skull base. NECK Metabolically-active cervical lymph nodes: Absent. CHEST LINES DEVICES: Implantable right IJV approach central venous catheterterminates in the cavoatrial junction. Interval removal esophagealstent. LUNG Focal metabolic activity within lungs: Absent. METABOLICALLY-ACTIVE LYMPH NODES Mediastinal: Absent. Hilar: Absent. Axillary: Absent. MEDIASTINUM Complete resolution of metabolic activity and wall thickening of thedistal esophagus and gastric cardia. Normal heart size. Small pericardial effusion. VESSELS Calcified coronary artery plaque burden: Mild. Aortic valvular calcification: Absent. Thoracic aortic aneurysm: Absent. ABDOMEN LINES DEVICES: Absent. ABDOMINAL WALL/PERITONEUM: No ascites. INTRAPERITONEUM Metabolically-active intraperitoneal lymph nodes: Absent. Liver / spleen: Symmetric low intensity homogeneous metabolic activitythroughout the parenchyma of the liver and spleen. Biliary: Unremarkable. Bowel: No small bowel dilatation or evidence for obstruction. Normalcaliber appendix. Diverticulosis of the descending colon to sigmoidcolon. No diverticulitis. RETROPERITONEUM Metabolically-active retroperitoneal lymph nodes: Absent. Adrenal glands: Symmetric low metabolic activity throughout both adrenalglands. Pancreas: Homogeneous low-level metabolic activity throughout thepancreatic parenchyma. No ductal dilatation. Kidneys: No renal or ureteral calculus. No hydronephrosis. Excretedradiotracer activity within the renal collecting systems and ureters. Abdominal aorta: No aneurysm. PELVIS Metabolically-active pelvic lymph nodes: Absent. MUSCULOSKELETAL Focal metabolic activity within bones: Absent. IMPRESSION: 1. Complete response to therapy: Resolution of metabolic activity andwall thickening within distal esophageal/gastric cardia mass. 2. Small pericardial effusion. 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) Malignant neoplasm of cardia Esophageal mass Unspecified disorder of esophagus documented in this encounter Administered Medications Inactive Administered Medications - up to 3 most recent administrations Medication Order MAR Action Action Date Dose Rate Site fludeoxyglucose f-18 (Fdg) inj 10.27 millicurie 10.27 millicurie, Intravenous, ONCE, On Tue07/06/23 at 1336, For 1 dose, Radiology Medication Routing (Non-IR) Given 07/06/2023 1:27 PM EST 10.27 millicuries Antecubital Right sodium chloride 0.9 % flush/inj 10 mL 10 mL, IV Push, ONCE, On Tue07/06/23 at 1336, For 1 dose, Do not flush if lock, PICC, or central line not in place; IV infusing or unable to flush., Radiology Medication Routing (Non-IR) Given 07/06/2023 1:27 PM EST 10 mL Antecubital Right documented in this encounter Advance Directives Latest Code Status on File Code Status Date Activated Date Inactivated Comments Full Code 03/31/2023 7:07 PM 04/03/2023 3:41 PM This order reflects the patients wishes and were consensually agreed upon. Question Answer Comments Discussion of Advance Directives occurred with: Patient Does the patient have a Living Will? No Does the patient have Health Care Power of Derrickman Helper? No Code Status History Code Status Date Activated Date Inactivated Comments Full Code 03/15/2018 8:20 AM 03/16/2018 2:36 PM This or enrique reflects the patients wishes and were consensually agreed upon. Question Answer Comments Discussion of Advance Directives occurred with: Patient Does the patient have a Living Will? No Does the patient have Health Care Power of Derrickman Helper? No Full Code 03/15/2018 6:20 AM 03/15/2018 8:20 AM This or enrique reflects the patients wishes and were consensually agreed upon.
--- OUTSIDE RECORDS SUMMARY | 2023-09-01 12:13 | External Medical Summary ---
Author Name Unknown Address Unknown Organization : Laboratory Report Ordering Provider Test Date Status NO,UNKNOWN 07/06/2023 13:21:56 Final Observation Date Value Abnormality Reference (Units ) Status Glucose Point of Care 07/06/2023 13:21:56 93 70-120 (mg/dL) Final Performing Location
--- OUTSIDE RECORDS SUMMARY | 2023-09-01 12:13 | External Medical Summary ---
Author Name Unknown Address Unknown Organization K01:LABORATORY [facility] [address] [facility] [address] Laboratory Report Ordering Provider Test Date Status BRITTNEY MCMANUS 08/04/2023 07:28:00 Final Observation Date Value Abnormality Reference (Units ) Status Phosphate 08/04/2023 07:28:00 2.4 Below low normal 2.5 -4.8 (mg/dL) Final Performing Location [facility] - [address] [facility] [address]
--- OUTSIDE RECORDS SUMMARY | 2023-09-01 12:13 | External Medical Summary ---
Author Name Unknown Address Unknown Organization : Laboratory Report Ordering Provider Test Date Status VIVIANA LYON 08/03/2023 16:56:00 Final Observation Date Value Abnormality Reference (Units ) Status Zinc, level 08/03/2023 16:56:00 25 Below low normal 6 0-130 (mcg/dL) Final This test was developed and its analytical performance
characteristics have been determined by [employer]
[email or web address] [place], [place]. It has
not been cleared or approved by the U.S. Food and Drug
Administration. This assay has been validated pursuant
to the CLIA regulations and is used for clinical
purposes.

Test Performed at:
[facility]
[address]
[place] [address]
Tom Sanches M.D., Ph.D.,Director of Laboratories Performing Location
--- OUTSIDE RECORDS SUMMARY | 2023-09-01 12:13 | External Medical Summary ---
Author Name Unknown Address Unknown Organization K01:LABORATORY [facility] [place] - [address] [place] [address] Laboratory Report Ordering Provider Test Date Status VIVIANA LYON 08/03/2023 07:01:00 Final Observation Date Value Abnormality Reference (Units ) Status Iron 08/03/2023 07:01:00 20 Below low normal 45-176 (ug/dL) Final Iron-binding capacity 08/03/2023 07:01:00 295 250-425 (ug/dL) Final Transferrin Sat % 08/03/2023 07:01:00 7 Below low normal 15-55 (%) Final Performing Location LABORATORY [facility] - [address] [place] [address]
--- OUTSIDE RECORDS SUMMARY | 2023-09-01 12:13 | External Medical Summary | Summary of Care ---
Author Name Unknown Organization [facility] Address [address] [place] [address] Phone [phone] Care Team Providers Care Rock Crusher Operator Name Role Phone CorieIrma palumbopatti Gottlieb PA-C Primary Care Provider [phone]- [phone] Reason for Visit * Reason Onset Date Comments Advice 04/19/2023 Encounter Details Date Type Department Care Team (Late st Contact Info) Description 04/19/2023 Telephone Access Center, [place] [address] [facility] *DO NOT REMOVE THIS DEPARTMENT* [place] [address] Services, Scheduling [address] [place] [address] Advice Allergies Active Allergy Reactions Criticality Noted [...] Pain, Breakthrough. 118 mL 3 04/14/2023 Active documented as of this encounter (statuses [...] encounter Miscellaneous Notes * Telephone Encounter - Cecilia Hernandez OSA - 04/19/2023 3:26 PM EDT Pt called and stated he got a call from [employer] to call back and javon and appt call was lost several times the last time I called him back he did not answer. I was unable to find the msg that someone call him Just an fyi if someone call him he has asked for a call back @ [phone] ZRS documented in this encounter Plan of Treatment Upcoming Encounters Date Type Department Care Team (Latest Contact Info) Description 08/02/2023 10:00 AM EST Immunization/Inj ection Hematology/Oncolo gy Treatment, [place] [address] [place] [address] Nurse, Med 4 [address] [facility] [place] [address] 08/02/2023 10:21 AM EST Hospital Encounter [place] [facility] [facility] [facility] [address] [place] [address] Praveen Edmonds MD [address] [place] [address] 08/02/2023 10:21 AM EST - 08/02/2023 1:46 PM EST Surgery [place] [facility] [address] [place], [place] [phone] Praveen Edmonds MD [address] [place] [address] GASTRECTOMY TOTAL WITH ESOPHAGOENTEROSTOMY 09/13/2023 8:45 AM EST Office Visit Hematology/Oncolo gy [facility] [place] [address] [place] [address] Cipriano Kuhn MD [address] [facility] [place] [address] 09/13/2023 9:15 AM EST Immunization/Inj ection Hematology/Oncolo gy Treatment, [place] [address] [place] [address] Nurse, Med 4 [address] [facility] [place] [address] Scheduled Procedures Name Priority Associated Diagnoses Date/Ti [...] this encounter Medical Devices Implanted Type Area Prop Maker Device Identifier Shelf Expiration Date Model / Serial / Lot Cement Hydroset Injectable 5cc - [id number] Implanted:Qty : 1 on 03/15/2018 by Ronak Khoury MD [place] [facility] Left: Head JOHN 11/09/2019 [id number] / / [id number] Stent Wallf Esoph [id number] - [id number] Implanted:Qty : 1 on 04/01/2023 by Karson Goddard MD at [place] [facility] N/A: Esophagus [employer] : ENDOSCOPY [id number] 09/09/2024 [id number] / / [id number] Power Port 8fr Sngl Lumen Plas - [id number] Implanted:Qty : 1 on 04/19/2023 by Thaddeus Brown DO at OR [facility] Right: Chest CR BARD : PERIPHERAL VASCULAR [id number] 06/14/2024 [id number] / / [id number] documented as of this encounter Advance Directives [...] the patient have Health Care Power of Sole Scraper? No Code Status History Code Status Date Activated Date Inactivated Comments Full Code 03/15/2018 8:20 AM 03/16/2018 2:36 PM This or enrique reflects the patients wishes and were consensually agreed upon. Question Answer Comments Discussion of Advance Directives occurred with: Patient Does the patient have a Living Will? No Does the patient have Health Care Power of Sole Scraper? No Full Code 03/15/2018 6:20 AM 03/15/2018 8:20 AM This or enrique reflects the patients wishes and were consensually agreed upon. Care Teams Rock Crusher Operator Relationship Specialty Start Date End Date Fatoumata Rasheed PA-C [address] [place] [address] [place] [address] PCP - General Physician Organ Tuner 03/30/23 05/03/23 documented as of this encounter
--- OUTSIDE RECORDS SUMMARY | 2023-09-01 12:13 | External Medical Summary ---
Author Name Unknown Address Unknown Organization K01:LABORATORY [facility] [place] - [address] [facility] [address] Laboratory Report Ordering Provider Test Date Status VIVIANA LYON 08/03/2023 16:56:00 Final Observation Date Value Abnormality Reference (Units ) Status Ferritin 08/03/2023 16:56:00 185 30-400 (ng /mL) Final Performing Location [facility] - [address] [facility] [address]
--- OUTSIDE RECORDS SUMMARY | 2023-09-01 12:13 | External Medical Summary ---
Author Name Unknown Address Unknown Organization : Laboratory Report Ordering Provider Test Date Status VIVIANA LYON 08/03/2023 16:56:00 Final Observation Date Value Abnormality Reference (Units ) Status Vitamin K-1, level 08/03/2023 16:56:00 183 1 30-1500 (pg/mL) Final This test was developed and its analytical performance
characteristics have been determined by [employer] [place], [place]. It has
not been cleared or approved by the U.S. Food and Drug
Administration. This assay has been validated pursuant
to the CLIA regulations and is used for clinical
purposes.

Test Performed at:
[facility]
[address] [facility]
[place] [address]
Tom Sanches M.D., Ph.D.,Director of Laboratories Performing Location
--- OUTSIDE RECORDS SUMMARY | 2023-09-01 12:13 | External Medical Summary ---
Author Name Unknown Address Unknown Organization : Laboratory Report Ordering Provider Test Date Status VIVIANA LYON 08/03/2023 16:56:00 Final Observation Date Value Abnormality Reference (Units ) Status Thiamine [Moles/volume] in Blood 08/03/2023 16:56:00 120 78-185 (nmol/L) Final Vitamin supplementation with in 24 hours prior to
blood draw may affect the accuracy of the results.
This test was developed and its analytical performance
characteristics have been determined by [facility] [place], [place]. It has
not been cleared or approved by the U.S. Food and Drug
Administration. This assay has been validated pursuant
to the CLIA regulations and is used for clinical
purposes.

Test Performed at:
[facility]
[address] [facility]
[place] [address]
Tom Sanches M.D., Ph.D.,Director of Laboratories Performing Location
--- OUTSIDE RECORDS SUMMARY | 2023-09-01 12:13 | External Medical Summary ---
Author Name Unknown Address Unknown Organization : Laboratory Report Ordering Provider Test Date Status VIVIANA LYON 08/03/2023 16:56:00 Final Observation Date Value Abnormality Reference (Units ) Status Vitamin A, level 08/03/2023 16:56:00 42 38- 98 (mcg/dL) Final Vitamin supplementation with in 24 hours prior to
blood draw may affect the accuracy of the results.
This test was developed and its analytical performance
characteristics have been determined by [employer] [place], [place]. It has
not been cleared or approved by the U.S. Food and Drug
Administration. This assay has been validated pursuant
to the CLIA regulations and is used for clinical
purposes.

Test Performed at:
[facility] [place]
[address]
[place], [place]
Tom Sanches M.D., Ph.D.,Director of Laboratories Performing Location
--- OUTSIDE RECORDS SUMMARY | 2023-09-01 12:13 | External Medical Summary | Summary of Care ---
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 30 Tablet 2 06/29/2023 Active documented as of this encounter (statuses as of 07/09/2023) Active Problems Problem Noted Date Diagnosed Date [...] as of this encounter (statuses as of 07/09/2023) Immunizations Name Administration Dates Next Due TDAP [...] Sign Reading Time Taken Comments Blood Pressure 117/67 07/06/2023 12:05 PM EST Pulse 78 07/06/2023 12:05 PM EST Temperature 36.4 C (97.6 F) 07/06/2023 12:[address] Respiratory Rate 16 07/06/2023 12:05 PM EST Oxygen Saturation - - Inhaled Oxygen Concentration - - Weight 59.5 kg (131 lb 1.6 oz) 07/06/2023 12:05 PM EST Height - - Body Mass Index 18.55 06/10/2023 3:05 PM EDT documented in this encounter Functional Status Functional [...] No 03/31/2023 documented as of this encounter Progress Notes * Chapin Smith, DO - 07/06/2023 12:15 PM EST Surgical Oncology Clinic History and Physical 07/06/2023 Edward Yoder [id number] HPI: Edward Yoder is a 58 year old male [...] Anticoagulation/Antiplatelets: none Cardiac Hx: none 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 Need for hepatitis C screening test 04/19/2014 Hepatitis C negative Trigeminal neuralgia of left side of face 12/14/2017 Past Surgical History: Procedure Laterality Date COLONOSCOPY, DIAGNOSTIC (RECTUM) 03/30/2023 COLONOSCOPY FLEXIBLE PROXIMAL DIAGNOSTIC performed by Homar Blair MD at ENDOSCOPY [facility] EGD, FLEXIBLE, DIAGNOSTIC 03/30/2023 ESOPHAGOGASTRODUODENOSCOPY (EGD), FLEXIBLE, TRANSORAL, DIAGNOSTIC performed by Homar Blair MD at ENDOSCOPY [facility] EGD, W/ENDOSCOPIC US N/A 04/01/2023 ESOPHAGOGASTRODUODENOSCOPY (EGD), FLEXIBLE, TRANSORAL, ENDOSCOPIC ULTRASOUND performed by Karson Greco MD at ENDOSCOPY [facility] EXPLORE/DECOMPRESS CRANIAL NERVES Left 03/15/2018 CRANIECTOMY SUBOCCIPITAL EXPLORATION CRANIAL NERVES performed by Ronak Khoury MD at OR [facility] INSER TUNN ACC DEV;5 YRS/OLDER Right 04/19/2023 INSERT TUNNELED CENTRAL VENOUS ACCESS WITH SUBQ PORT performed by Thaddeus Brown DO at OR [facility] MICROSURGERY ADD-ON Left 03/15/2018 MICROSURGICAL SURGERY REQUIRING MICROSCOPE LISTED SEPARATELY performed by Ronak Khoury MD at OR [facility] SPINAL FLUID TAP FOR DRAINAGE Left 03/15/2018 SPINAL PUNCTURE DRAINAGE CSF performed by Ronak Khoury MD at OR 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 Kendal Smith, DO PGY-2, General Surgery 07/06/2023 1:09 PM I [...] extent of the tumor Praveen Edmonds MD parts counter associate Section Head, Surgical Oncology and Endocrine Surgery [facility] [address] [place] [address] Office: [phone] [email or web address] documented in this encounter Plan of Treatment Upcoming Encounters Date Type Department Care Team (Latest Contact Info) Description 08/02/2023 10:00 AM EST Immunization/Inj ection Hematology/Oncolo gy Treatment, [place] [address] [place] [address] Nurse, Med [address] [facility] [place] [address] 08/02/2023 10:21 AM EST Hospital Encounter OR [facility], OPERATING ROOM [facility], [facility] [address] [place] [phone] Praveen Edmonds MD [address] [place] [address] 08/02/2023 10:21 AM EST - 08/02/2023 1:46 PM EST Surgery OR [facility], OPERATING ROOM [facility], [facility] [address] [place] [address] Praveen Edmonds MD [address] [place] [address] GASTRECTOMY TOTAL WITH ESOPHAGOENTEROSTOMY 09/13/2023 8:45 AM EST Office Visit Hematology/Oncolo gy [facility] [place] [address] [place] [address] Cipriano Kuhn MD [address] [facility] [place] [address] 09/13/2023 9:15 AM EST Immunization/Inj ection Hematology/Oncolo gy Treatment, [place] [address] [place], [place] [address] Nurse, Med [address] [facility] [place] [address] Scheduled Orders Name Type Priority Associated Diagnoses Orde r Schedule EKG EKG Routine Preoperative testing 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 Left: Head JOHN 11/09/2019 [id number] / / [id number] Stent Wallf Esoph [id number] - [id number] Implanted:Qty : 1 on 04/01/2023 by Karson Goddard MD at ENDOSCOPY 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 No Code Status History Code Status Date Activated Date Inactivated Comments Full Code 03/15/2018 8:20 AM 03/16/2018 2:36 PM This or enrique reflects the patients wishes and were consensually agreed upon. Question Answer Comments Discussion of Advance Directives occurred with: Patient Does the patient have a Living Will? No Does the patient have Health Care Power of Securities Broker? No Full Code 03/15/2018 6:20 AM 03/15/2018 8:20 AM This or enrique reflects the patients wishes and were consensually agreed upon."
--- OUTSIDE RECORDS SUMMARY | 2023-09-01 12:13 | External Medical Summary ---
Author Name Unknown Address Unknown Organization K01:LABORATORY C - [address] [facility] [address] Laboratory Report Ordering Provider Test Date Status BRITTNEY MCMANUS 08/05/2023 07:28:00 Final Observation Date Value Abnormality Reference (Units ) Status Magnesium 08/05/2023 07:28:00 1.5 1.5-2.6 (m g/dL) Final Performing Location [facility] - [address] [facility] [address]
--- OUTSIDE RECORDS SUMMARY | 2023-09-01 12:13 | External Medical Summary ---
Author Name Unknown Address Unknown Organization K01:[place] [place] [facility] [address] [facility] [address] Laboratory Report Ordering Provider Test Date Status MARV NESS 08/03/2023 07:01:00 Final Observation Date Value Abnormality Reference (Units ) Status BUN 08/03/2023 07:01:00 14 6-20 (mg/dL) Final Creatinine 08/03/2023 07:01:00 0.6 0.6-1.2 (mg/dL) Final Glomerular filtration rate/1.73 sq M.predicted [Volume Rate/Area] in Serum, Plasma or Blood by Creatinine-based formula (CKD-EPI) 08/03/2023 07:01:00 >90 >=60 (mL/min) Final eGFR is calculated based on the CKD-EPI 2020 equation SODIUM 08/03/2023 07:01:00 136 135-146 (m mol/L) Final Potassium 08/03/2023 07:01:00 4.0 3.5-5.1 (m mol/L) Final Cl 08/03/2023 07:01:00 101 98-107 (mm ol/L) Final CO2 08/03/2023 07:01:00 24 22-32 (mmo l/L) Final Anion gap 08/03/2023 07:01:00 11 7-15 (mmol /L) Final Glucose 08/03/2023 07:01:00 101 70-120 (mg /dL) Final Calcium 08/03/2023 07:01:00 8.7 8.4-10.2 ( mg/dL) Final Performing Location [place] [facility] [place] [address] [facility] [address]
--- OUTSIDE RECORDS SUMMARY | 2023-09-01 12:13 | External Medical Summary ---
Author Name Unknown Address Unknown Organization K01:[place] [place] [address] [facility] [address] Laboratory Report Ordering Provider Test Date Status MARV NESS 08/05/2023 07:28:00 Final Observation Date Value Abnormality Reference (Units ) Status BUN 08/05/2023 07:28:00 11 6-20 (mg/dL) Final Creatinine 08/05/2023 07:28:00 0.5 Below low normal 0.6-1.2 (mg/dL) Final Glomerular filtration rate/1.73 sq M.predicted [Volume Rate/Area] in Serum, Plasma or Blood by Creatinine-based formula (CKD-EPI) 08/05/2023 07:28:00 >90 >=60 (mL/min) Final eGFR is calculated based on the CKD-EPI 2020 equation SODIUM 08/05/2023 07:28:00 135 135-146 (m mol/L) Final Potassium 08/05/2023 07:28:00 3.4 Below low normal 3.5 -5.1 (mmol/L) Final Cl 08/05/2023 07:28:00 102 98-107 (mm ol/L) Final CO2 08/05/2023 07:28:00 22 22-32 (mmo l/L) Final Anion gap 08/05/2023 07:28:00 11 7-15 (mmol /L) Final Glucose 08/05/2023 07:28:00 130 Above high normal 70 -120 (mg/dL) Final Calcium 08/05/2023 07:28:00 9.5 8.4-10.2 ( mg/dL) Final Performing Location [facility] [place] [address] [facility] [address]
--- OUTSIDE RECORDS SUMMARY | 2023-09-01 12:13 | External Medical Summary ---
Author Name Unknown Address Unknown Organization K01:LABORATORY [facility] [place] - [address] [place] [address] Laboratory Report Ordering Provider Test Date Status VIVIANA LYON 08/03/2023 07:01:00 Final Deficient: <20 ng/mL
Ins ufficient: 20-29 ng/mL
Recommended/Optimum:30-50 ng/mL

Vitamin D intoxication is rare. If suspicious of Vitamin D toxicity, evaluation of serum Calcium and PTH is recommended. Observation Date Value Abnormality Reference (Units ) Status 25-OH Vitamin D total 08/03/2023 07:01:00 24 >19 (ng/mL) Final Performing Location LABORATORY C - [address] [place] [address]
--- OUTSIDE RECORDS SUMMARY | 2023-09-01 12:13 | External Medical Summary ---
Author Name Unknown Address Unknown Organization K01:LABORATORY C - [address] [facility] [address] Laboratory Report Ordering Provider Test Date Status BRITTNEY MCMANUS 08/04/2023 07:28:00 Final Observation Date Value Abnormality Reference (Units ) Status Magnesium 08/04/2023 07:28:00 1.8 1.5-2.6 (m g/dL) Final Performing Location [facility] - [address] [facility] [address]
--- OUTSIDE RECORDS SUMMARY | 2023-09-01 12:13 | External Medical Summary ---
Author Name Unknown Address Unknown Organization K01:[place] [place] [facility][note 3] [address] [facility] [address] Laboratory Report Ordering Provider Test Date Status MARV NESS 08/04/2023 07:28:00 Final Observation Date Value Abnormality Reference (Units ) Status WBC, Total 08/04/2023 07:28:00 10.85 Above high normal 4.00-10.80 (K/uL) Final RBC 08/04/2023 07:28:00 3.09 4.50-5.25 (M/uL) Final Hemoglobin 08/04/2023 07:28:00 9.0 Below low normal 14.0-16.8 (g/dL) Final HCT 08/04/2023 07:28:00 27.6 Below low normal 40.0-48.4 (%) Final MCV 08/04/2023 07:28:00 89.3 82.0-99.5 (fL) Final MCH 08/04/2023 07:28:00 29.1 27.0-34.0 (pg) Final MCHC 08/04/2023 07:28:00 32.6 32.0-36.0 (g/dL) Final RDW 08/04/2023 07:28:00 20.2 11.5-15.5 (%) Final Platelets 08/04/2023 07:28:00 218 140-400 (K/uL) Final MPV 08/04/2023 07:28:00 10.2 6.6-11.1 (fL) Final Nucleated erythrocytes/100 leukocytes [Ratio] in Blood by Automated count 08/04/2023 07:28:00 0 <=0 (/100 WBCs) Final Performing Location [facility] [place] [address] [place] [address]
--- OUTSIDE RECORDS SUMMARY | 2023-09-01 12:13 | External Medical Summary ---
Author Name Unknown Address Unknown Organization : Laboratory Report Ordering Provider Test Date Status WENDY BRADFORD 08/02/2023 11:50:11 Final Observation Date Value Abnormality Reference (Units ) Status Glucose Point of Care 08/02/2023 11:50:11 98 70-120 (mg/dL) Final Performing Location
--- OUTSIDE RECORDS SUMMARY | 2023-09-01 12:13 | External Medical Summary ---
Author Name Unknown Address Unknown Organization K01:[place] [place] [address] [facility] [address] Laboratory Report Ordering Provider Test Date Status VIVIANA LYON 08/03/2023 16:56:00 Final Observation Date Value Abnormality Reference (Units ) Status Folic Acid 08/03/2023 16:56:00 11.7 >4.5 (ng/ mL) Final Performing Location [facility] - [address] [facility] [address]
--- OUTSIDE RECORDS SUMMARY | 2023-09-01 12:13 | External Medical Summary ---
Author Name Unknown Address Unknown Organization : Laboratory Report Ordering Provider Test Date Status VIVIANA LYON 08/03/2023 16:56:00 Final Observation Date Value Abnormality Reference (Units ) Status Vitamin E, level 08/03/2023 16:56:00 9.4 5.7 -19.9 (mg/L) Final Levels of alpha-tocopherol < 5 mg/L are consistent
with Vitamin E deficiency in adults. Beta+gamma tocopherol [Mass/ volume] in Serum or Plasma 08/03/2023 16:56:00 <1.0 <=4.3 (mg/L) Final Vitamin supplementation with in 24 hours prior to
blood draw may affect the accuracy of the results.
This test was developed and its analytical performance
characteristics have been determined by [email or web address] [place], [place]. It has
not been cleared or approved by the U.S. Food and Drug
Administration. This assay has been validated pursuant
to the CLIA regulations and is used for clinical
purposes.

Test Performed at:
[facility]
[address]
[place] [address]
Tom Sanches M.D., Ph.D.,Director of Laboratories Performing Location
--- OUTSIDE RECORDS SUMMARY | 2023-09-01 12:13 | External Medical Summary ---
Author Name Unknown Address Unknown Organization K01:LABORATORY [facility] [place] - [address] [facility] [address] Laboratory Report Ordering Provider Test Date Status VIVIANA LYON 08/03/2023 07:01:00 Final Observation Date Value Abnormality Reference (Units ) Status Magnesium 08/03/2023 07:01:00 1.9 1.5-2.6 (m g/dL) Final Performing Location [facility] - [address] [facility] [address]
--- OUTSIDE RECORDS SUMMARY | 2023-09-01 12:13 | External Medical Summary ---
Author Name Unknown Address Unknown Organization [id number]:[facility] [place] [facility] [address] [facility] [address] Laboratory Report Ordering Provider Test Date Status MARV NESS 08/03/2023 07:01:00 Final Observation Date Value Abnormality Reference (Units ) Status WBC, Total 08/03/2023 07:01:00 12.25 Above high normal 4.00-10.80 (K/uL) Final RBC 08/03/2023 07:01:00 3.34 4.50-5.25 (M/uL) Final Hemoglobin 08/03/2023 07:01:00 9.6 Below low normal 14.0-16.8 (g/dL) Final HCT 08/03/2023 07:01:00 29.7 Below low normal 40.0-48.4 (%) Final MCV 08/03/2023 07:01:00 88.9 82.0-99.5 (fL) Final MCH 08/03/2023 07:01:00 28.7 27.0-34.0 (pg) Final MCHC 08/03/2023 07:01:00 32.3 32.0-36.0 (g/dL) Final RDW 08/03/2023 07:01:00 20.5 11.5-15.5 (%) Final Platelets 08/03/2023 07:01:00 228 140-400 (K/uL) Final MPV 08/03/2023 07:01:00 10.0 6.6-11.1 (fL) Final Nucleated erythrocytes/100 leukocytes [Ratio] in Blood by Automated count 08/03/2023 07:01:00 0 <=0 (/100 WBCs) Final Performing Location [facility] [place] [address] [place] [address]
--- OUTSIDE RECORDS SUMMARY | 2023-09-01 12:13 | External Medical Summary ---
Author Name Unknown Address Unknown Organization [id number]:[facility] [place] [facility] [address] [facility] [address] Laboratory Report Ordering Provider Test Date Status MARV NESS 08/04/2023 07:28:00 Final Observation Date Value Abnormality Reference (Units ) Status BUN 08/04/2023 07:28:00 11 6-20 (mg/dL) Final Creatinine 08/04/2023 07:28:00 0.5 Below low normal 0.6-1.2 (mg/dL) Final Glomerular filtration rate/1.73 sq M.predicted [Volume Rate/Area] in Serum, Plasma or Blood by Creatinine-based formula (CKD-EPI) 08/04/2023 07:28:00 >90 >=60 (mL/min) Final eGFR is calculated based on the CKD-EPI 2020 equation SODIUM 08/04/2023 07:28:00 134 Below low normal 135 -146 (mmol/L) Final Potassium 08/04/2023 07:28:00 4.0 3.5-5.1 (m mol/L) Final Cl 08/04/2023 07:28:00 102 98-107 (mm ol/L) Final CO2 08/04/2023 07:28:00 23 22-32 (mmo l/L) Final Anion gap 08/04/2023 07:28:00 9 7-15 (mmol /L) Final Glucose 08/04/2023 07:28:00 159 Above high normal 70 -120 (mg/dL) Final Calcium 08/04/2023 07:28:00 8.8 8.4-10.2 ( mg/dL) Final Performing Location LABORATORY [facility] [place] - [address] [facility] [address]
--- OUTSIDE RECORDS SUMMARY | 2023-09-01 12:13 | External Medical Summary | Summary of Care ---
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) Allergies Active Allergy Reactions Criticality Noted Date Comments Carbamazepine Rash Medium 02/20/2018 documented as of this encounter (statuses as of 07/28/2023) Medications Medication Sig Dispensed Refills Start Date [...] as of this encounter (statuses as of 07/28/2023) Active Problems Problem Noted Date Diagnosed Date [...] as of this encounter (statuses as of 07/28/2023) Immunizations Name Administration Dates Next Due TDAP [...] (15 years old or older) No 03/31/20 23 Cognitive Status Response Date of Assessm ent Because of a physical, menta l, or emotional condition, do you have serious difficulty concentrating, remembering, or making decisions? (5 years old or older) No 03/31/2023 documented as of this encounter Plan of Treatment Upcoming Encounters Date Type Department Care Team (Latest Contact Info) Description 08/02/2023 10:00 AM EST Immunization/Inj ection Hematology/Oncolo gy Treatment, [place] [address] [place] [address] Nurse, Med [address] [place] [address] 08/02/2023 10:21 AM EST Hospital En[place] [facility] [facility] [facility] [address] [place] [address] Praveen Edmonds MD [address] [place] [address] 08/02/2023 10:21 AM EST - 08/02/2023 1:46 PM EST Surgery [place] [facility] [facility] [facility] [address] [place] [address] Praveen Edmonds MD [address] [place] [address] GASTRECTOMY TOTAL WITH ESOPHAGOENTEROSTOMY 09/13/2023 8:45 AM EST Office Visit Hematology/Oncolo gy [facility] [place] [address] [place] [address] Cipriano Kuhn MD [address] [place] [address] 09/13/2023 9:15 AM EST Immunization/Inj ection Hematology/Oncolo gy Treatment, [place] [address] [facility] [place] [address] Nurse, Med [address] [place] [address] Pending Results Name Type Priority Associated Diagnoses Date /Time TYPE AND SCREEN Lab Routine Preoperative testing 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) 07/28/2023 9:18 AM EST Scheduled Procedures Name Priority Associated Diagnoses [...] this encounter Medical Devices Implanted Type Area Outpatient Facility Physical Therapist Device Identifier Shelf Expiration Date Model / Serial / Lot Cement Hydroset Injectable 5cc - [id number] Implanted:Qty : 1 on 03/15/2018 by Ronak Khoury MD [place] [facility] Left: Head JOHN 11/09/2019 [id number] / / [id number] Stent Wallf Esoph 23/[id number] - [id number] Implanted:Qty : 1 on 04/01/2023 by Karson Goddard MD at [place] [facility] N/A: Esophagus [employer] : ENDOSCOPY [id number] 09/09/2024 [id number] / / [id number] Power Port 8fr Sngl Lumen Plas - [id number] Implanted:Qty : 1 on 04/19/2023 by Thaddeus Brown DO at OR [facility] Right: Chest CR BARD : PERIPHERAL VASCULAR [id number] 06/14/2024 [id number] / / [id number] documented as of this encounter Visit Diagnoses Diagnosis Preoperative testing Preoperative examination, unspecified 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 No Code Status History Code Status Date Activated Date Inactivated Comments Full Code 03/15/2018 8:20 AM 03/16/2018 2:36 PM This or enrique reflects the patients wishes and were consensually agreed upon. Question Answer Comments Discussion of Advance Directives occurred with: Patient Does the patient have a Living Will? No Does the patient have Health Care Power of Inspector Sheet Metal Parts? No Full Code 03/15/2018 6:20 AM 03/15/2018 8:20 AM This or enrique reflects the patients wishes and were consensually agreed upon.
--- OUTSIDE RECORDS SUMMARY | 2023-09-01 12:13 | External Medical Summary | Summary of Care ---
Author Name Unknown Organization [facility] Address [address] [place] [address] Phone [phone] Care Team Providers Care Sliver Former Name Role Phone Unavailable Primary Care Provider Unavailabl e Reason for Visit * Reason Onset Date Comments Education 07/08/2023 Encounter Details Date Type Department Care Team (Late st Contact Info) Description 07/08/2023 Telephone General Surgery, [place] [address] [place] [address] Praveen Edmonds MD [address] [place] [address] Education Allergies Active Allergy Reactions Criticality Noted Date Comments Carbamazepine Rash Medium 02/20/2018 documented as of this encounter (statuses as of 07/15/2023) Medications Medication Sig Dispensed Refills Start Date [...] as of this encounter (statuses as of 07/15/2023) Active Problems Problem Noted Date Diagnosed Date [...] as of this encounter (statuses as of 07/15/2023) Immunizations Name Administration Dates Next Due TDAP [...] encounter Miscellaneous Notes * Telephone Encounter - Livier Hong RN - 07/12/2023 11:13 AM EST Call from patient. Reviewed pre-surgery instructions. All questions answered. Instructed to review information sent in patient portal last week. Will call or message with any questions. * Telephone Encounter - Livier Hong RN - 07/12/2023 10:45 AM EST Call to [place]. Left message to return call. * Telephone Encounter - Livier Hong RN - 07/08/2023 12:28 PM EST Call to [place] as per patient wishes. With holiday, she has not had an opportunity to review instructions sent in patient portal. Asking for call early next week, any day before noon is good. documented in this encounter Plan of Treatment Upcoming Encounters Date Type Department Care Team (Latest Contact Info) Description 08/02/2023 10:00 AM EST Immunization/Inj ection Hematology/Oncolo gy Treatment, [place] [address] [place] [address] Nurse, Med [address] [place] [address] 08/02/2023 10:21 AM EST Hospital Encounter [facility], OPERATING ROOM [facility] [address] [place], [place] [id number] Praveen Edmonds MD [address] [place] [address] 08/02/2023 10:21 AM EST - 08/02/2023 1:46 PM EST Surgery OR [facility], OPERATING ROOM [facility] [address] [place] [address] Praveen Edmonds MD [address] [place] [address] GASTRECTOMY TOTAL WITH ESOPHAGOENTEROSTOMY 09/13/2023 8:45 AM EST Office Visit Hematology/Oncolo gy [facility] [address] [place] [address] Cipriano Kuhn MD [address] [place] [address] 09/13/2023 9:15 AM EST Immunization/Inj ection Hematology/Oncolo gy Treatment, [place] [address] [place] [address] Nurse, Med 4 [facility] [place] [address] Scheduled Procedures Name Priority Associated Diagnoses Date/Ti [...] this encounter Medical Devices Implanted Type Area Family Readiness Support Assistant Device Identifier Shelf Expiration Date Model / Serial / Lot Cement Hydroset Injectable 5cc - [id number] Implanted:Qty : 1 on 03/15/2018 by Ronak Khoury MD at [place] [facility] Left: Head JOHN 11/09/2019 [id number] / / [id number] Stent Wallf Esoph 23/[id number] - [id number] Implanted:Qty : 1 on 04/01/2023 by Karson Goddard MD at ENDOSCOPY [facility] N/A: Esophagus [employer] : ENDOSCOPY [id number] 09/09/2024 [id number] / / [id number] Power Port 8fr Sngl Lumen Plas - [id number] Implanted:Qty : 1 on 04/19/2023 by Thaddeus Brown DO at OR [facility] Right: Chest CR BARD : PERIPHERAL VASCULAR [id number] 06/14/2024 [id number] / / [id number] documented as of this encounter Advance Directives [...] the patient have Health Care Power of Cnc Machinist? No Code Status History Code Status Date Activated Date Inactivated Comments Full Code 03/15/2018 8:20 AM 03/16/2018 2:36 PM This or enrique reflects the patients wishes and were consensually agreed upon. Question Answer Comments Discussion of Advance Directives occurred with: Patient Does the patient have a Living Will? No Does the patient have Health Care Power of Cnc Machinist? No Full Code 03/15/2018 6:20 AM 03/15/2018 8:20 AM This or enrique reflects the patients wishes and were consensually agreed upon.
--- OUTSIDE RECORDS SUMMARY | 2023-09-01 12:13 | External Medical Summary ---
Author Name Unknown Address Unknown Organization K01:[facility] [place] [address] [facility] [address] Laboratory Report Ordering Provider Test Date Status VIVIANA LYON 08/03/2023 07:01:00 Final Observation Date Value Abnormality Reference (Units ) Status Triglyceride 08/03/2023 07:01:00 58 <=174 ( mg/dL) Final Triglyceride Reference Range s (mg/dL):
<150 Acceptable
150-174 Borderline high
175-499 High
>=500 Very high Performing Location LABORATORY C - [address] [facility] [address]
--- OUTSIDE RECORDS SUMMARY | 2023-09-01 12:13 | External Medical Summary ---
Author Name Unknown Address Unknown Organization : Laboratory Report Ordering Provider Test Date Status WENDY BRADFORD 08/02/2023 14:39:22 Final Observation Date Value Abnormality Reference (Units ) Status Glucose Point of Care 08/02/2023 14:39:22 120 70-120 (mg/dL) Final Performing Location
--- OUTSIDE RECORDS SUMMARY | 2023-09-01 12:13 | External Medical Summary ---
Author Name Unknown Address Unknown Organization K01:LABORATORY [facility] - [address] [facility] [address] Laboratory Report Ordering Provider Test Date Status VIVIANA LYON 08/03/2023 07:01:00 Final Observation Date Value Abnormality Reference (Units ) Status Phosphate 08/03/2023 07:01:00 4.7 2.5-4.8 (m g/dL) Final Performing Location LAB[facility]ATORY [facility] - [address] [facility] [address]
--- OUTSIDE RECORDS SUMMARY | 2023-09-01 12:13 | External Medical Summary ---
Author Name Unknown Address Unknown Organization K01:[facility] [place] [address] [place] [address] Laboratory Report Ordering Provider Test Date Status WENDY BRADFORD 07/28/2023 09:18:14 Final Observation Date Value Abnormality Reference (Units ) Status ABO 07/28/2023 09:18:14 A Final RH 07/28/2023 09:18:14 Positive Final RED BLOOD CELL ANTIBODY SCREEN 07/28/2023 09:18:14 Negative Final SPECIMEN EXPIRATION DATE 07/28/2023 09:18:14 08/05/2023 23:59 Final Performing Location [facility] [place] [address] [place] [address]
--- OUTSIDE RECORDS SUMMARY | 2023-09-01 12:14 | External Medical Summary ---
Author Name Unknown Address Unknown Organization K01:LABORATORY C - [address] [place] [address] Laboratory Report Ordering Provider Test Date Status KHANGJUSTINA 06/20/2023 10:08:38 Final Observation Date Value Abnormality Reference (Units ) Status Ferritin 06/20/2023 10:08:38 631 Above high normal 30 -400 (ng/mL) Final Performing Location LAB[facility]ORY [facility] - [address] [place] [address]
--- OUTSIDE RECORDS SUMMARY | 2023-09-01 12:14 | External Medical Summary | Summary of Care ---
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 Procedures PET CT SKULL BASE TO MID-THIGH Praveen Edmonds MD [address] [place] [address] Referral ID Status Reason Start Date Expiration Date V isits Requested Visits Authorized [id number] Authorized Precert 06/29/2023 08/28/2023 999 999 Reason for Visit * Reason Onset Date Comments Appointment 06/21/2023 Encounter Details Date Type Department Care Team (Late st Contact Info) Description [facility] [address] [place] [address] Praveen Edmonds MD [address] [place] [address] (work) Appointment Allergies Active Allergy Reactions Criticality Noted Date Comments Carbamazepine Rash Medium 02/20/2018 documented as of this encounter (statuses as of 07/05/2023) Medications Medication Sig Dispensed Refills Start Date [...] TWICE DAILY 60 Tablet 4 06/09/2023 Active documented as of this encounter (statuses as of 07/05/2023) Active Problems Problem Noted Date Diagnosed Date [...] as of this encounter (statuses as of 07/05/2023) Immunizations Name Administration Dates Next Due TDAP [...] Telephone Encounter - Livier Hong RN - 06/21/2023 4:12 PM EST Call to patient. Patient identified by name and date of . Aware of PET CT being ordered for 2 weeks post chemotherapy. Will follow for scheduling. Accepted appointment with Dr Edmonds for surgery discussion 07/06/23 @ 0420. documented in this encounter Plan of Treatment Upcoming Encounters Date Type Department Care Team (Late st Contact Info) Description 07/06/2023 12:15 PM EST Office Visit General Surgery, [place] [address] [place] [address] Praveen Edmonds MD [address] [place] [address] 07/06/2023 1:30 PM EST Hospital Encounter PET CT IMAGING, [facility] [address] [place] [address] 08/02/2023 10:00 AM EST Immunization/Injecti on Hematology/Oncology Treatment, [place] [facility] [address] Nurse, Med [address] [facility] [place] [address] 09/13/2023 8:45 AM EST Office Visit Hematology/Oncology [facility] [place] [address] [facility] [place] [address] Cipriano Kuhn MD [address] [facility] [place] [address] 09/13/2023 9:15 AM EST Immunization/Injecti on Hematology/Oncology Treatment, [place] [address] [place] [address] Nurse, [facility] [address] [place] [address] Scheduled Orders Name Type Priority Associated Diagnoses Orde r Schedule PET CT SKULL BASE TO MID-THIGH Medical Imaging Routine 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 Expected: 07/05/2023 (Approximate), Expires: 07/21/2024 Scheduled Procedures Name Priority Associated Diagnoses Date/Ti me ESOPHAGOGASTRODUODENOSCOPY ( EGD), FLEXIBLE, TRANSORAL, DIAGNOSTIC Recall Malignant neoplasm of esophagus, unspecified location (HCC) Health Maintenance Due Date Last Done Comments Hepatitis B (1 of 3 - 3-dose series) 1964 COVID-19 Vaccine (#1) 1969 Pneumococcal Vaccine: Pediatrics (0 to 5 Years) and At-Risk Patients (6 to 64 Years) (1 - PCV) 1970 Zoster Vaccines (1 of 2) 1983 Cologuard 2009 Fecal Occult Blood Test 2009 Sigmoidoscopy 2009 Depression Screening 12/21/2018 12/21/2017 Lipid Panel 04/19/2019 [...] this encounter Medical Devices Implanted Type Area Warehouse Attendant Device Identifier Shelf Expiration Date Model / Serial / Lot Cement Hydroset Injectable 5cc - [id number] Implanted:Qty : 1 on 03/15/2018 by Ronak Khoury MD at OR [facility] Left: Head JOHN 11/09/2019 [id number] / / [id number] Stent Wallf Esoph 23/00prn29yr - [id number] Implanted:Qty : 1 on 04/01/2023 by Karson Goddard MD at ENDOSCOPY [facility] N/A: Esophagus [employer] : ENDOSCOPY [id number] 09/09/2024 [id number] / / [id number] Power Port 8fr Sngl Lumen Plas - [id number] Implanted:Qty : 1 on 04/19/2023 by Thaddeus Brown DO at OR [facility] Right: Chest CR BARD : PERIPHERAL VASCULAR [id number] 06/14/2024 [id number] / / [id number] documented as of this encounter Visit Diagnoses Diagnosis 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 Question Answer Comments Discussion of Advance Directives occurred with: Patient Does the patient have a Living Will? No Does the patient have Health Care Power of President Financial Institution? No Code Status History Code Status Date Activated Date Inactivated Comments Full Code 03/15/2018 8:20 AM 03/16/2018 2:36 PM This or enrique reflects the patients wishes and were consensually agreed upon. Question Answer Comments Discussion of Advance Directives occurred with: Patient Does the patient have a Living Will? No Does the patient have Health Care Power of President Financial Institution? No Full Code 03/15/2018 6:20 AM 03/15/2018 8:20 AM This or enrique reflects the patients wishes and were consensually agreed upon.
--- OUTSIDE RECORDS SUMMARY | 2023-09-01 12:14 | External Medical Summary ---
Author Name Unknown Address Unknown Organization K0G:LABORATORY [facility] - [address] [place] [address] Laboratory Report Ordering Provider Test Date Status JUSTINA QUIÑONEZ 06/20/2023 10:08:38 Final Observation Date Value Abnormality Reference (Units ) Status Nucleated erythrocytes/100 leukocytes [Ratio] in Blood by Automated count 06/20/2023 10:08:38 Final Schistocytes 06/20/2023 10:08:38 Few Abnormal None Seen Final Performing Location LABORATORY [facility] - [address] [place] [address]
--- OUTSIDE RECORDS SUMMARY | 2023-09-01 12:14 | External Medical Summary | Summary of Care ---
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) Procedures TX LEUCOVORIN CALCIUM INJECTION TX PALONOSETRON HCL TX FLUOROURACIL INJECTION TX OXALIPLATIN TX DOCETAXEL INJECTION Cipriano Kuhn MD [address] [place] [address] Anc Hem/Onc [facility] 200 [facility] [place] [address] Referral ID Status Reason Start Date Expiration Date V isits Requested Visits Authorized [id number] Authorized 05/30/2023 11/25/2023 999 [id number] Encounter Details Date Type Department Care Team (Latest Contact Info) Description 06/22/2023 12:45 PM EST Immunization/ Injection [facility], [place] [facility] [address] [facility], Med 4 200 [facility] [place] [place] [address] Encounter for antineoplastic chemotherapy*; 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 30 Tablet 0 05/04/2023 Active Ondansetron HCl 8 MG Oral Tablet (Zofran)Indication s:Malignant neoplasm of lower third of esophagus (HCC) Take 1 Tablet by mouth every 8 hours as needed for Nausea. 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 (5 years old or older No 03/31/2023 documented as of this encounter Nursing Notes * Edie Ramirez RN - 06/22/2023 12:55 PM EST Chair 10 Pt arrives at clinic with home 5FU infusion pump completed. He states he's doing well, eating well and drinking plenty of fluids, denies any N/V/C/D. He does not want to stay for hydration today. Pump removed, VAD flushed per protocol, and jones needle removed. Patient tolerated treatment well and was discharged in stable condition. No coverage needed today. documented in this encounter Plan of Treatment Upcoming Encounters Date Type Department Care Team (Late st Contact Info) Description 07/06/2023 1:20 PM EST Office Visit General Surgery, [place] [address] [place] [address] Praveen Edmonds MD [address] [place] [address] 08/02/2023 10:00 AM EST Immunization/Injec tion Hematology/[facility]cology Treatment, [place] [facility] [address] Nurse, Med 4 200 [facility] [place] [address] 09/13/2023 8:45 AM EST Office Visit Hematology/Oncology [facility] 200 [facility] [place] [address] Cipriano Kuhn MD 200 [facility] [place] [address] 09/13/2023 9:15 AM EST Immunization/Injec tion Hematology/Oncology Treatment, [place] [facility] [address] Nurse, Med 4 200 [facility] [place] [address] Scheduled Procedures Name Priority Associated Diagnoses Date/Ti [...] this encounter Medical Devices Implanted Type Area Cone Picker Device Identifier Shelf Expiration Date Model / Serial / Lot Cement Hydroset Injectable 5cc - [id number] Implanted:Qty : 1 on 03/15/2018 by Ronak Khoury MD at OR [facility] Left: Head JOHN 11/09/2019 [id number] / / [id number] Stent Wallf Esoph 23/08bat01ud - [id number] Implanted:Qty : 1 on 04/01/2023 by Karson Goddard MD at ENDOSCOPY [facility] N/A: Esophagus [employer] : ENDOSCOPY [id number] 09/09/2024 [id number] / / [id number] Power Port 8fr Sngl Lumen Plas - [id number] Implanted:Qty : 1 on 04/19/2023 by Thaddeus Brown DO at OR [facility] Right: Chest CR BARD : PERIPHERAL VASCULAR [id number] 06/14/2024 [id number] / / [id number] documented as of this encounter Visit Diagnoses Diagnosis Encounter for antineoplastic chemotherapy- Primary 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 Given 06/22/2023 12:49 PM EST 500 Units NSS infusion FOR HYDRATION Intravenous, at 500 mL/hr Administer over 2 Hours, ONCE, 1 dose, On Tue06/22/23 at 1315 sodium chloride 0.9 % flush central line 10 mL 10 mL, IV Push, PRN Other, IV Flush, Starting on Tue06/22/23 at 1243, Until [place] 06/23/23 at 1242, For 24 hours, Do not flush if lock, PICC, or central line not in place; IV infusing or unable to flush. Given 06/22/2023 12:49 PM EST 10 mL documented in this encounter Advance Directives Latest Code Status on File Code Status Date Activated Date Inactivated Comments Full Code 03/31/2023 7:07 PM 04/03/2023 3:41 PM This order reflects the patients wishes and were consensually agreed upon. Question Answer Comments Discussion of Advance Directives occurred with: Patient Does the patient have a Living Will? No Does the patient have Health Care Power of Maxillofacial Prosthetics Dentist? No Code Status History Code Status Date Activated Date Inactivated Comments Full Code 03/15/2018 8:20 AM 03/16/2018 2:36 PM This or enrique reflects the patients wishes and were consensually agreed upon. Question Answer Comments Discussion of Advance Directives occurred with: Patient Does the patient have a Living Will? No Does the patient have Health Care Power of Maxillofacial Prosthetics Dentist? No Full Code 03/15/2018 6:20 AM 03/15/2018 8:20 AM This or enrique reflects the patients wishes and were consensually agreed upon.
--- OUTSIDE RECORDS SUMMARY | 2023-09-01 12:14 | External Medical Summary | Summary of Care ---
Author Name Unknown Organization [facility] Address [address] [facility] [place] [address] Phone [phone] Care Team Providers Care Skin Lap Bonder Name Role Phone Unavailable Primary Care Provider Unavailabl e Reason for Visit * Reason Comments Outpatient Testing Encounter Details Date Type Department Care Team (Late st Contact Info) Description 06/20/2023 9:30 AM EST Laboratory Laboratory, [facility] [address] [facility] [place] [id number] [facility] [address] [facility] [address] Malignant neoplasm of lower third of esophagus (HCC); Iron deficiency anemia due to chronic blood loss; 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) Allergies Active Allergy Reactions Criticality Noted Date Comments Carbamazepine Rash Medium 02/20/2018 documented as of this encounter (statuses as of 06/20/2023) Medications Medication Sig Dispensed Refills Start Date [...] as of this encounter (statuses as of 06/20/2023) Active Problems Problem Noted Date Diagnosed Date [...] as of this encounter (statuses as of 06/20/2023) Immunizations Name Administration Dates Next Due TDAP [...] Team (Late st Contact Info) Description 06/21/2023 9:15 AM EST Hem/Onc Treatment Hematology/Oncology Treatment, [place] [address] [place] [address] Sandra, Chair 3 Hem Onc Scen[place] [address] [place] [address] Pending Results Name Type Priority Associated Diagnoses Date /Time CBC WITH WBC DIFFERENTIAL Lab STAT Malignant neoplasm of lower third of esophagus (HCC) 06/20/2023 10:08 AM EST COMPREHENSIVE METABOLIC PANEL Lab STAT Malignant neoplasm of lower third of esophagus (HCC) 06/20/2023 10:08 AM EST FERRITIN Lab STAT Iron deficiency anemia due to chronic blood loss 06/20/2023 10:08 AM EST IRON SCREEN, INCLUDING TIBC Lab STAT Iron deficiency anemia due to chronic blood loss 06/20/2023 10:08 AM EST CBC Lab STAT Malignant neoplasm of lower third of esophagus (HCC) 06/20/2023 10:08 AM EST DIFFERENTIAL, AUTOMATED Lab STAT Malignant neoplasm of lower third of esophagus (HCC) 06/20/2023 10:08 AM EST Scheduled Procedures Name Priority Associated [...] this encounter Medical Devices Implanted Type Area Crepe Sole Scourer Device Identifier Shelf Expiration Date Model / Serial / Lot Cement Hydroset Injectable 5cc - [id number] Implanted:Qty : 1 on 03/15/2018 by Ronak Khoury MD at OR [facility] Left: Head JOHN 11/09/2019 [id number] / / [id number] Stent Wallf Esoph 23/03orl35rz - [id number] Implanted:Qty : 1 on 04/01/2023 by Karson Goddard MD at ENDOSCOPY [facility] N/A: Esophagus [employer] : ENDOSCOPY [id number] 09/09/2024 [id number] / / [id number] Power Port 8fr Sngl Lumen Plas - [id number] Implanted:Qty : 1 on 04/19/2023 by Thaddeus Brown DO at OR 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 No Code Status History Code Status Date Activated Date Inactivated Comments Full Code 03/15/2018 8:20 AM 03/16/2018 2:36 PM This or enrique reflects the patients wishes and were consensually agreed upon. Question Answer Comments Discussion of Advance Directives occurred with: Patient Does the patient have a Living Will? No Does the patient have Health Care Power of Coremaking Supervisor? No Full Code 03/15/2018 6:20 AM 03/15/2018 8:20 AM This or enrique reflects the patients wishes and were consensually agreed upon.
--- OUTSIDE RECORDS SUMMARY | 2023-09-01 12:14 | External Medical Summary | Summary of Care ---
Author Name Unknown Organization [facility] Address [address] [facility] [address] Phone [phone] Care Team Providers Care Rejected Items Clerk Name Role Phone Unavailable Primary Care Provider Unavailabl e Encounter Details Date Type Department Care Team (Latest Contact Info) Description 06/20/2023 8:30 AM EST Procedure Only Endoscopy, [facility] [address] [place] [address] Georgi Long MD [address] [place] [address] Encounter for diagnostic endoscopy* Allergies Active Allergy Reactions Criticality Noted Date Comments Carbamazepine Rash Medium 02/20/2018 documented as of this encounter (statuses as of 06/23/2023) Medications Medication Sig Dispensed Refills Start Date [...] TWICE DAILY 60 Tablet 4 06/09/2023 Active Hospital, Clinic, or Other Facility Administered Medication Ordered Dose Route Frequency Start Date End Date Status Fluorouracil (5-Fu) 4,400 mg in NSS 230 mL infusion 4400 mg IV CONTINUOUS 06/20/2023 06/21/2023 Ended documented as of this encounter (statuses as of 06/23/2023) Active Problems Problem Noted Date Diagnosed Date [...] as of this encounter (statuses as of 06/23/2023) Immunizations Name Administration Dates Next Due TDAP [...] 1:20 PM EST Office Visit General Surgery, [place] [address] [place] [address] Praveen Edmonds MD [address] [place] [address] 08/02/2023 10:00 AM EST Immunization/Injec tion Hematology/Oncology Treatment, [address] [address] Nurse, Med [address] [place] [address] 09/13/2023 8:45 AM EST Office Visit Hematology/Oncology [address] [address] Cipriano Kuhn MD [address] [place] [address] 09/13/2023 9:15 AM EST Immunization/Injec tion Hematology/Oncology Treatment, [address] [address] Nurse, Med [address] [place] [address] [place] [address] Scheduled Procedures Name Priority Associated Diagnoses Date/Ti [...] this encounter Medical Devices Implanted Type Area Curtain Stitcher Device Identifier Shelf Expiration Date Model / Serial / Lot Cement Hydroset Injectable 5cc - [id number] Implanted:Qty : 1 on 03/15/2018 by Ronak Khoury MD at OR [facility] Left: Head JOHN 11/09/2019 [id number] / / [id number] Stent Wallf Esoph 23/14ryp96cs - [id number] Implanted:Qty : 1 on 04/01/2023 by Karson Goddard MD at ENDOSCOPY [facility] N/A: Esophagus [employer] : ENDOSCOPY [id number] 09/09/2024 [id number] / / [id number] Power Port 8fr Sngl Lumen Plas - [id number] Implanted:Qty : 1 on 04/19/2023 by Thaddeus Brown DO at OR [facility] Right: Chest CR BARD : PERIPHERAL VASCULAR [id number] 06/14/2024 [id number] / / [id number] documented as of this encounter Procedures Procedure Name Priority Date/Time Associated Diagnosis Comments UPPER GI ENDOSCOPY 06/20/2023 documented in this encounter Results * UPPER GI ENDOSCOPY (06/20/2023) 06/20/2023 Georgi Long MD GASTRO UPPER documented in this encounter Visit Diagnoses Diagnosis Encounter for diagnostic endoscopy- Primary Other specified pre-operative examination documented in this encounter Advance Directives Latest Code Status on File Code Status Date Activated Date Inactivated Comments Full Code 03/31/2023 7:07 PM 04/03/2023 3:41 PM This order reflects the patients wishes and were consensually agreed upon. Question Answer Comments Discussion of Advance Directives occurred with: Patient Does the patient have a Living Will? No Does the patient have Health Care Power of Email Marketing Coordinator? No Code Status History Code Status Date Activated Date Inactivated Comments Full Code 03/15/2018 8:20 AM 03/16/2018 2:36 PM This or enrique reflects the patients wishes and were consensually agreed upon. Question Answer Comments Discussion of Advance Directives occurred with: Patient Does the patient have a Living Will? No Does the patient have Health Care Power of Email Marketing Coordinator? No Full Code 03/15/2018 6:20 AM 03/15/2018 8:20 AM This or enrique reflects the patients wishes and were consensually agreed upon.
--- OUTSIDE RECORDS SUMMARY | 2023-09-01 12:14 | External Medical Summary | Summary of Care ---
Author Name Unknown Organization [facility] Address [address] [place] [address] Phone [phone] Care Team Providers Care Oracle Database Developer Name Role Phone Unavailable Primary Care Provider Unavailabl e Reason for Visit * Reason Onset Date Comments Medication Refill 06/20/2023 Encounter Details Date Type Department Care Team (Late st Contact Info) Description 06/20/2023 Refill Hematology/Oncology Treatment, [place] 200 [facility] [place] [phone] Cipriano Kuhn MD [address] [facility] [place] [address] Malignant neoplasm of lower third of esophagus (HCC) Allergies Active Allergy Reactions Criticality Noted [...] infusion 4400 mg IV CONTINUOUS 06/20/2023 06/21/2023 Active documented as of this encounter (statuses [...] Telephone Encounter - Fide Contreras OSA - 06/20/2023 4:13 PM EST Patient has been notified of the message. Patient has no further questions. * Telephone Encounter - Ely Venegas RN - 06/20/2023 4:10 PM EST Taxotere discontinued. 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) Scheduled Procedures Name Priority Associated Diagnoses Date/Ti [...] this encounter Medical Devices Implanted Type Area Chiropractic Neurologist Device Identifier Shelf Expiration Date Model / Serial / Lot Cement Hydroset Injectable 5cc - [id number] Implanted:Qty : 1 on 03/15/2018 by Ronak Khour[place] [facility] [place]: Head JOHN 11/09/2019 [id number] / / [id number] Stent Wallf Esoph 23/36usd94oi - [id number] Implanted:Qty : 1 on 04/01/2023 by Karson Goddard [place] [facility] [place]/A: Esophagus [employer] : ENDOSCOPY [id number] 09/09/2024 [id number] / / [id number] Power Port 8fr Sngl Lumen Plas - [id number] Implanted:Qty : 1 on 04/19/2023 by Thaddeus Brown DO at OR [facility] Right: Chest CR BARD : PERIPHERAL VASCULAR [id number] 06/14/2024 [id number] / / [id number] documented as of this encounter Visit Diagnoses Diagnosis Malignant neoplasm of lower third of esophagus (HCC) Malignant neoplasm of lower third of esophagus Encounter for antineoplastic chemotherapy- Primary Malignant neoplasm [...] the patient have Health Care Power of Yeast Culture Operator? No Code Status History Code Status Date Activated Date Inactivated Comments Full Code 03/15/2018 8:20 AM 03/16/2018 2:36 PM This or enrique reflects the patients wishes and were consensually agreed upon. Question Answer Comments Discussion of Advance Directives occurred with: Patient Does the patient have a Living Will? No Does the patient have Health Care Power of Yeast Culture Operator? No Full Code 03/15/2018 6:20 AM 03/15/2018 8:20 AM This or enrique reflects the patients wishes and were consensually agreed upon.
--- OUTSIDE RECORDS SUMMARY | 2023-09-01 12:14 | External Medical Summary | Summary of Care ---
Author Name Unknown Organization [facility] Address [address] [place] [address] Phone [phone] Care Team Providers Care Accounts Receivable Bookkeeper Name Role Phone Unavailable Primary Care Provider Unavailabl e Reason for Visit * Reason Onset Date Comments Medication Refill 06/20/2023 Encounter Details Date Type Department Care Team (Late st Contact Info) Description 06/20/2023 Refill Hematology/Oncology Treatment, [place] [address] [facility] [phone] Cipriano Kuhn MD [address] [facility] [address] Malignant neoplasm of lower third of esophagus [...] AM EST Hem/Onc Treatment Hematology/Oncolog y Treatment, [place] [address] [place] [address] Sandra, Chair 3 Hem Onc [address]enery [address] [place] [address] Encounter for antineoplastic chemotherapy*; Malignant neoplasm of [...] this encounter Medical Devices Implanted Type Area Member Services Representative Device Identifier Shelf Expiration Date Model / Serial / Lot Cement Hydroset Injectable 5cc - [id number] Implanted:Qty : 1 on 03/15/2018 by Ronak Khoury MD at [place] [facility] Left: Head JOHN 11/09/2019 [id number] / / [id number] Stent Wallf Esoph 23/55imr42yh - [id number] Implanted:Qty : 1 on 04/01/2023 by Karson Goddard MD at ENDOSCOPY [facility] N/A: Esophagus [employer] : ENDOSCOPY [id number] 09/09/2024 [id number] / / [id number] Power Port 8fr Sngl Lumen Plas - [id number] Implanted:Qty : 1 on 04/19/2023 by Thaddeus Brown DO at OR [facility] Right: Chest CR BARD : PERIPHERAL VASCULAR [id number] 06/14/2024 [id number] / / [id number] documented as of this encounter Visit Diagnoses [...] the patient have Health Care Power of Flue Tile Press Operator? No Code Status History Code Status Date Activated Date Inactivated Comments Full Code 03/15/2018 8:20 AM 03/16/2018 2:36 PM This or enrique reflects the patients wishes and were consensually agreed upon. Question Answer Comments Discussion of Advance Directives occurred with: Patient Does the patient have a Living Will? No Does the patient have Health Care Power of Flue Tile Press Operator? No Full Code 03/15/2018 6:20 AM 03/15/2018 8:20 AM This or enrique reflects the patients wishes and were consensually agreed upon.
--- OUTSIDE RECORDS SUMMARY | 2023-09-01 12:14 | External Medical Summary | Summary of Care ---
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 30 Tablet 2 06/29/2023 Active Ondansetron HCl 8 MG Oral Tablet (Zofran)Indicati ons:Malignant neoplasm of lower third of esophagus (HCC) Take 1 Tablet by mouth every 8 hours as needed for Nausea. 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 42 mL 0 06/06/2023 3 Discontinue d(Refill) documented as of this encounter (statuses as of 06/29/2023) Active Problems Problem Noted Date Diagnosed Date [...] as of this encounter (statuses as of 06/29/2023) Immunizations Name Administration Dates Next Due TDAP [...] Telephone Encounter - Cipriano Kuhn MD - 06/29/2023 3:07 PM EST E-prescribed Zofran and liquid morphine. * Telephone Encounter - Livier Hong RN - 06/29/2023 12:39 PM EST Ordered by another provider * Telephone Encounter - Livier Hong RN - 06/29/2023 12:39 PM ESTRefused Prescriptions: Disp Refills Ondansetron HCl 8 MG Oral Tablet (Zofran) 30 Tab*2 Sig: Take 1 Tablet by mouth every 8 hours as needed for Nausea. Refused By: LIVIER HONG Reason for Refusal: Managed by another physician Morphine Sulfate (Concentrate) 100 MG/5ML *42 mL 0 Sig: Take 0.25 mL by mouth every 4 hours as needed for Pain, Moderate. Refused By: LIVIER HONG Reason for Refusal: Managed by another physician * Telephone Encounter - Staci Mukherjee LPN - 06/29/2023 7:03 AM ESTPending Prescriptions: Disp Refills Ondansetron HCl 8 MG Oral Tablet (Zofran) 30 Tab*2 Sig: Take 1 Tablet by mouth every 8 hours as needed for Nausea. Morphine Sulfate (Concentrate) 100 MG/5ML *42 mL0 Sig: Take 0.25 mL by mouth every 4 hours as needed for Pain, Moderate. documented in this encounter Plan of Treatment Upcoming Encounters Date Type Department Care Team (Late st Contact Info) Description 07/06/2023 1:20 PM EST Office Visit General Surgery, [place] [address] [place] [address] Praveen Edmonds MD [address] [place] [address] 07/06/2023 1:30 PM EST Appointment PET CT IMAGING, [facility] [place] [address] [place] [address] 08/02/2023 10:00 AM EST Immunization/Injectio n Hematology/Oncology Treatment, [place] [address] [facility] [address] Nurse, Med [address] [place] [address] 09/13/2023 8:45 AM EST Office Visit Hematology/Oncology [facility] 200 [facility] [place] [address] Cipriano Kuhn MD 200 [facility] [place] [address] 09/13/2023 9:15 AM EST Immunization/Injectio n [facility]emat[facility] [place] [facility] [address] Nurse, Med 200 [facility] [place] [address] Scheduled Procedures Name Priority Associated Diagnoses Date/Ti [...] this encounter Medical Devices Implanted Type Area Answering Service Telephone Operator Device Identifier Shelf Expiration Date Model / Serial / Lot Cement Hydroset Injectable 5cc - [id number] Implanted:Qty : 1 on 03/15/2018 by Ronak Khoury MD at [facility] Left: Head JOHN 11/09/2019 [id number] / / [id number] Stent Wallf Esoph [id number] - [id number] Implanted:Qty : 1 on 04/01/2023 by Karson Goddard MD [place] [facility] [place]A: Esophagus [employer] : ENDOSCOPY [id number] 09/09/2024 [id number] / / [id number] Power Port 8fr Sngl Lumen Plas - [id number] Implanted:Qty : 1 on 04/19/2023 by Thaddeus Brown DO at OR [facility] Right: Chest CR BARD : PERIPHERAL VASCULAR [id number] 06/14/2024 [id number] / / [id number] documented as of this encounter Visit Diagnoses [...] the patient have Health Care Power of Study Hall Supervisor? No Code Status History Code Status Date Activated Date Inactivated Comments Full Code 03/15/2018 8:20 AM 03/16/2018 2:36 PM This or enrique reflects the patients wishes and were consensually agreed upon. Question Answer Comments Discussion of Advance Directives occurred with: Patient Does the patient have a Living Will? No Does the patient have Health Care Power of Study Hall Supervisor? No Full Code 03/15/2018 6:20 AM 03/15/2018 8:20 AM This or enrique reflects the patients wishes and were consensually agreed upon.
--- OUTSIDE RECORDS SUMMARY | 2023-09-01 12:14 | External Medical Summary ---
Author Name Unknown Address Unknown Organization [id number]:[facility] [address] [place] [address] Laboratory Report Ordering Provider Test Date Status JUSTINA QUIÑONEZ 06/20/2023 10:08:38 Final Observation Date Value Abnormality Reference (Units ) Status SYNC LEUKOCYTES IN BLOOD BY AUTOMATED COUNT 06/20/2023 10:08:38 9.88 4.00-10.80 (K/uL) Final Segs 06/20/2023 10:08:38 86.4 Above high normal 40.0-75.0 (%) Final Lymphs % 06/20/2023 10:08:38 9.1 Below low normal 18.0-42.0 (%) Final Monos 06/20/2023 10:08:38 3.3 1.0-11.0 (%) Final Eosinophils 06/20/2023 10:08:38 1.1 0.0-6.0 (%) Final Basos 06/20/2023 10:08:38 0.1 0.0-2.0 (%) Final Absolute Segs 06/20/2023 10:08:38 8.53 Above high normal 1.80-7.70 (K/uL) Final Lymphs, absolute 06/20/2023 10:08:38 0.90 Below low normal 1.00-4.80 (K/ul) Final Monos, Abs 06/20/2023 10:08:38 0.33 0.00-1.10 (K/uL) Final Eos, Abs 06/20/2023 10:08:38 0.11 0.00-0.70 (K/uL) Final Basos, Abs 06/20/2023 10:08:38 0.01 0.00-0.20 (K/uL) Final Performing Location [facility] [address] [place] [address]
--- OUTSIDE RECORDS SUMMARY | 2023-09-01 12:14 | External Medical Summary | Summary of Care ---
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) Procedures [place] LEUCOVORIN CALCIUM INJECTION [place] PALONOSETRON HCL [place] FLUOROURACIL INJECTION [place] OXALIPLATIN [place] DOCETAXEL INJECTION Cipriano Kuhn MD [address] [facility] [place] [address] Anc Hem/Onc [address] [place] [address] Referral ID Status Reason Start Date Expiration Date V isits Requested Visits Authorized [id number] Authorized 05/30/2023 11/25/2023 999 999 Encounter Details Date Type Department Care Team (Latest Contact Info) Description 06/21/2023 9:15 AM EST Hem/Onc Treatment Hematology/Oncolog y Treatment, [place] [address] [place] [id number] Sandra, Chair 3 Hem Onc Scenery [address] [place] [address] Encounter for antineoplastic chemotherapy*; 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) Allergies Active Allergy Reactions Criticality Noted Date Comments Carbamazepine Rash Medium 02/20/2018 documented as of this encounter (statuses as of 06/21/2023) Medications Medication Sig Dispensed Refills Start Date [...] as of this encounter (statuses as of 06/21/2023) Active Problems Problem Noted Date Diagnosed Date [...] as of this encounter (statuses as of 06/21/2023) Immunizations Name Administration Dates Next Due TDAP [...] Sign Reading Time Taken Comments Blood Pressure 108/76 06/21/2023 9:32 AM EST Pulse 73 06/21/2023 9:32 AM EST Temperature 37.1 C (98.7 F) 06/21/2023 9:32 AM ES T Respiratory Rate 18 06/21/2023 9:32 AM EST Oxygen Saturation 97% 06/21/2023 9:32 AM EST Inhaled Oxygen Concentration - - Weight 59.4 kg (131 lb) 06/21/2023 9:32 AM EST Height - - Body Mass Index 18.53 06/10/2023 3:05 PM EDT documented in this [...] of this encounter Nursing Notes * Shyanne Gil, RN - 06/21/2023 3:20 PM EST Pt completed treatment without issues. 5FU pump connected to initiate infusion. Goals: Pt will remain free from injury. Possible barriers to meeting goals: ambulation with IV pole Stability of the patient: Moderately stable - low risk of patient condition declining or worsening Summary regarding today's goals: Met: Pt remained free from injury during treatment today. Discharged in stable condition. Per Dr. Kuhn, pt will follow up with surgery after completion of this cycle. Pt will return in 6 weeks for port flush, and return for port flush/office visit in 12 weeks. MY assisted. * Shyanne Gil RN - 06/21/2023 2:46 PM EST Safety and Risk for Injury Patient will remain free from injury. Ensure appropriate safety devices are available. Provide and maintain safe environment. Functional status at today's visit: Restricted in physically strenuous activity but ambulatory and able to carry out work on a light orsedentary nature, e.g. light house work, office work The drug name, dose, infusion volume, rate and route of administration, expiration date and time, appearance and physical integrity of the drug and rate set on the pump and sequencing of drug administration (as applicable) were verified by me and second sign-in RN. Patient was assessed for symptoms or adverse side effects during treatment. * Shyanne Gil RN - 06/21/2023 9:27 AM EST Chemo agents Oxali/Leuco/5FU (NESSA) Appetite improving since discharge from hospital and removal of stent Nausea/Vomiting no Diarrhea no Constipation no Mucositis no Fatigue improving Bleeding no Infection no Rash no Numbness tingling no Pain mild pain from stent removal yesterday Radiation n/a ABN Labs okay for treatment Alt in Tx: Taxotere discontinued from treatment plan Return in 1 day for pump disconnect documented in this encounter Plan of Treatment Upcoming Encounters Date Type Department Care Team (Late st Contact Info) Description 06/22/2023 12:45 PM EST Immunization/Injec tion Hematology/Oncology Treatment, [place] [address] [place] [address] Nurse, Med [address] [place] [address] 08/02/2023 10:00 AM EST Immunization/Injec tion Hematology/Oncology Treatment, [place] 200 [place] [address] Nurse, Med 4 200 [facility] [place] [address] 09/13/2023 8:45 AM EST Office Visit Hematology/Oncology [facility] 200 [facility] [address] Cipriano Kuhn MD 200 [facility] [place] [address] 09/13/2023 9:15 AM EST Immunization/Injec tion Hematology/Oncology Treatment, [place] [address] [place] [address] Nurse, Med 4 200 [facility] [place] [address] Scheduled Procedures Name Priority Associated Diagnoses Date/Ti me ESOPHAGOGASTRODUODENOSCOPY ( EGD), FLEXIBLE, TRANSORAL, DIAGNOSTIC Recall Malignant neoplasm of esophagus, unspecified location (HCC) Health Maintenance Due Date Last Done Comments Hepatitis B (1 of 3 - 3-dose series) 1964 COVID-19 Vaccine (#1) 1969 Zoster Vaccines (1 of 2) 1983 Cologuard [...] this encounter Medical Devices Implanted Type Area Sole Sewer Hand Device Identifier Shelf Expiration Date Model / Serial / Lot Cement Hydroset Injectable 5cc - [id number] Implanted:Qty : 1 on 03/15/2018 by Ronak Khoury MD [place] [facility] [place] Left: Head JOHN 11/09/2019 [id number] / / [id number] Stent Wallf Esoph [id number] - [id number] Implanted:Qty : 1 on 04/01/2023 by Karson Goddard MD at [place] [facility] [place] N/A: Esophagus [employer] : ENDOSCOPY [id number] 09/09/2024 [id number] / / [id number] Power Port 8fr Sngl Lumen Plas - [id number] Implanted:Qty : 1 on 04/19/2023 by Thaddeus Brown DO at OR [facility] Right: Chest CR BARD : PERIPHERAL VASCULAR [id number] 06/14/2024 [id number] / / [id number] documented as of this encounter Visit Diagnoses Diagnosis Encounter for antineoplastic chemotherapy- Primary 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) Malignant neoplasm of cardia documented in this encounter Administered Medications Active Administered Medications - up to 3 most recent administrations Medication Order MAR Action Action Date Dose Rate Site D5W IV solution Intravenous, at 50 mL/hr, CONTINUOUS, Starting on Tue06/21/23 at 1015, Until Tue06/21/23 at 2013 Start Infusion 06/21/2023 9:51 AM EST 500 mL 50 mL/hr diphenhydrAMINE (Benadryl) inj 50 mg 50 mg, IV Push, ONCE PRN Other, Hypersensitivity Reaction, Starting on Tue06/21/23 at 0933, Until Tue06/22/23 at 0932, For 24 hours EPINEPHrine 1 MG/ML inj 0.3 mg 0.3 mg, Intramuscular, ONCE PRN Other, Hypersensitivity Reaction or Anaphylaxis, Starting on Tue06/21/23 at 0933, Until Tue06/22/23 at 0932, For 24 hours hEParin 100 UNIT/ML Lock Flush inj 500 Units 500 Units (5 mL), IV Lock, PRN Other, IV Flush, Starting on Tue06/21/23 at 0933, Until Tue06/22/23 at 0932, For 24 hours, Do not flush if lock, PICC, or central line not in place; IV infusing or unable to flush. Hydrocortisone Sod Suc (PF) (Solu-Cortef) inj 100 mg 100 mg, IV Push, ONCE PRN Other, Hypersensitivity Reaction, Starting on Tue06/21/23 at 0933, Until Tue06/22/23 at 0932, For 24 hours oxygen GAS Inhalation, OXYGEN, First dose on Tue06/21/23 at 1015, Until Discontinued, Device/Managed by: Low Flow Device, Goal SPO2 (%): 91-95, Starting Device: Nasal Cannula, Inital Flow Rate (LPM): 2, Lowest Support: Nasal Cannula: Flow 0-6 LPM. Titrate up/down by 1 LPM., Higher Support: Non-Rebreather (NRB) Mask: Minimum of 10 LPM. Titrate to maintain bag inflation., Titration Interval: Q2 minutes and as needed., Notify Provider: For sudden DECREASE in resting SPO2 to less than 85% and when escalating delivery device. sodium chloride 0.9 % flush central line 10 mL 10 mL, IV Push, PRN Other, IV Flush, Starting on Tue06/21/23 at 0933, Until Tue06/22/23 at 0932, For 24 hours, Do not flush if lock, PICC, or central line not in place; IV infusing or unable to flush. Inactive Administered Medications - up to 3 most recent administrations Medication Order MAR Action Action Date Dose Rate Site dexAMETHasone (Decadron) tab 12 mg 12 mg, Oral, ONCE, On Tue06/21/23 at 1015, For 1 dose Given 06/21/2023 9:59 AM EST 12 mg Fluorouracil (5-Fu) 4,400 mg for Home Infusion 4,400 mg (rounded from 4,394 mg = 2,600 mg/m2 1.69 m2 Treatment Plan BSA from Recorded weight), Intravenous, Administer over 24 Hours, Home Infusion Pharmacy to specify base solution and volume., ONCE, 1 dose, On Tue06/21/23 at 1200 Start Infusion 06/21/2023 12:42 PM EST 4,400 mg 10 mL/hr leucovorin calcium 350 mg in D5W 250 mL INFUSION 350 mg (rounded from 338 mg = 200 mg/m2 1.69 m2 Treatment Plan BSA from Recorded weight), IV Piggyback, ONCE, 1 dose, On Tue06/21/23 at 1015, Administer over 120 Minutes Start Infusion 06/21/2023 10:39 AM EST 350 mg 125 mL/hr Oxaliplatin (Eloxatin) 150 mg in D5W 500 mL infusion 150 mg (rounded from 143.65 mg = 85 mg/m2 1.69 m2 Treatment Plan BSA from Recorded weight), IV Piggyback, ONCE, 1 dose, On Tue06/21/23 at 1015, Administer over 120 Minutes, Flush with D5W only! Start Infusion 06/21/2023 10:39 AM EST 150 mg 250 mL/hr Palonosetron (Aloxi) inj SOLN 0.25 mg 0.25 mg, IV Push, ONCE, On Tue06/21/23 at 1015, For 1 dose, Restricted per S antiemetic guidelines Given 06/21/2023 9:59 AM EST 0.25 mg documented in this encounter Advance Directives Latest Code Status on File Code Status Date Activated Date Inactivated Comments Full Code 03/31/2023 7:07 PM 04/03/2023 3:41 PM This order reflects the patients wishes and were consensually agreed upon. Question Answer Comments Discussion of Advance Directives occurred with: Patient Does the patient have a Living Will? No Does the patient have Health Care Power of [place]? No Code Status History Code Status Date Activated Date Inactivated Comments Full Code 03/15/2018 8:20 AM 03/16/2018 2:36 PM This or enrique reflects the patients wishes and were consensually agreed upon. Question Answer Comments Discussion of Advance Directives occurred with: Patient Does the patient have a Living Will? No Does the patient have Health Care Power of [place]? No Full Code 03/15/2018 6:20 AM 03/15/2018 8:20 AM This or enrique reflects the patients wishes and were consensually agreed upon.
--- OUTSIDE RECORDS SUMMARY | 2023-09-01 12:14 | External Medical Summary ---
Author Name Unknown Address Unknown Organization [id number]:[facility] [address] [place] [address] Laboratory Report Ordering Provider Test Date Status JUSTINA QUIÑONEZ 06/20/2023 10:08:38 Final Observation Date Value Abnormality Reference (Units ) Status WBC, Total 06/20/2023 10:08:38 9.88 4.00-10.8 0 (K/uL) Final RBC 06/20/2023 10:08:38 3.91 4.50-5.25 (M/uL) Final Hemoglobin 06/20/2023 10:08:38 10.2 Below low normal 14 .0-16.8 (g/dL) Final HCT 06/20/2023 10:08:38 32.4 Below low normal 40. 0-48.4 (%) Final MCV 06/20/2023 10:08:38 82.9 82.0-99.5 (fL) Final MCH 06/20/2023 10:08:38 26.1 27.0-34.0 (pg) Final MCHC 06/20/2023 10:08:38 31.5 32.0-36.0 (g/dL) Final RDW 06/20/2023 10:08:38 22.3 11.5-15.5 (%) Final Platelets 06/20/2023 10:08:38 345 140-400 (K /uL) Final MPV 06/20/2023 10:08:38 9.6 6.6-11.1 ( fL) Final Performing Location [facility] [address] [place] [address]
--- OUTSIDE RECORDS SUMMARY | 2023-09-01 12:14 | External Medical Summary ---
Author Name Unknown Address Unknown Organization K01:[facility] [place] - [address] [place] [address] Laboratory Report Ordering Provider Test Date Status JUSTINA QUIÑONEZ 06/20/2023 10:08:38 Final Observation Date Value Abnormality Reference (Units ) Status Iron 06/20/2023 10:08:38 44 Below low normal 45-176 (ug/dL) Final Iron-binding capacity 06/20/2023 10:08:38 233 Below low normal 250-425 (ug/dL) Final Transferrin Sat % 06/20/2023 10:08:38 19 15-55 (%) Final Performing Location [facility] [place] - [address] [place] [address]
--- OUTSIDE RECORDS SUMMARY | 2023-09-01 12:14 | External Medical Summary ---
Author Name Unknown Address Unknown Organization K0G:[facility] [address] [place] [address] Laboratory Report Ordering Provider Test Date Status JUSTINA QUIÑONEZ 06/20/2023 10:08:38 Final Observation Date Value Abnormality Reference (Units ) Status BUN 06/20/2023 10:08:38 5 Below low normal 6-20 (mg/dL) Final Creatinine 06/20/2023 10:08:38 0.7 0.6-1.2 (mg/dL) Final Glomerular filtration rate/1.73 sq M.predicted [Volume Rate/Area] in Serum, Plasma or Blood by Creatinine-based formula (CKD-EPI) 06/20/2023 10:08:38 >90 >=60 (mL/min) Final eGFR is calculated based on the CKD-EPI 2020 equation SODIUM 06/20/2023 10:08:38 136 135-146 (m mol/L) Final Potassium 06/20/2023 10:08:38 4.0 3.5-5.1 (m mol/L) Final Cl 06/20/2023 10:08:38 100 98-107 (mm ol/L) Final CO2 06/20/2023 10:08:38 24 22-32 (mmo l/L) Final Anion gap 06/20/2023 10:08:38 12 7-15 (mmol /L) Final Glucose 06/20/2023 10:08:38 116 70-120 (mg /dL) Final Albumin 06/20/2023 10:08:38 3.4 Below low normal 3.8 -5.0 (g/dL) Final AST (Aspartate aminotransferase) 06/20/2023 10:08:38 20 10-50 (U/L) Fin al Alk Phos 06/20/2023 10:08:38 114 35-130 (U/ L) Final Bilirubin, Total 06/20/2023 10:08:38 0.4 <=1 .2 (mg/dL) Final Calcium 06/20/2023 10:08:38 9.3 8.4-10.2 ( mg/dL) Final Protein 06/20/2023 10:08:38 6.8 6.0-8.3 (g /dL) Final ALT (Alanine aminotransferase) 06/20/2023 10:08:38 16 10-50 (U/L) Donn [place] Performing Location [facility] [address] [place] [address]
--- NOTE | 2023-09-01 12:21 | CT Scan Report ---
ABDOMEN AND PELVIS CT WITH IV CONTRAST CT DOSE: 386.27 mGy.cm HISTORY: Acute onset abdominal pain with nausea and vomiting recent gastrecomy, n/v, leak? TECHNIQUE: Multiaxial CT images of the abdomen and pelvis were performed following the IV administrat ion of 90 cc of Optiray, A dose lowering technique was utilized adhering to the principles of ALARA. COMPARISON STUDY: 03/05/2023 FINDINGS: Trace pericardial and left pleural effusions. Mild left hemidiaphragmatic elevation with caballero bsegmental left basilar atelectasis. No free air. Unremarkable spleen, adrenal glands, gallbladder an d liver. Patent portal vein. The pancreatic duct measures within the upper limits of normal at 3-4 mm . No obstructing pancreatic ductal stone or lesion. No evidence of acute pancreatitis. Unremarkable kidneys. No hydronephrosis. Mild distention of the urinary bladder with mild prostamegal y. Atherosclerosis of the aorta without aneurysm. Postoperative changes from recent gastrectomy with enteric esophageal anastomosis. Subcentimeter cedrick rohepatic lymph nodes are present. There is a peripherally enhancing fluid collection within the abdo desire left upper quadrant abutting the adjacent anastomotic sutures. This measures up to approximatel y 5 cm in length as measured on the sagittal images and contains nondependent air on image 48 series 3. This is curvilinear in shape and forms a tract to the enteric anastomosis on image 68 series 3 whe re there is circumferential wall thickening with adjacent inflammatory stranding. No bowel obstructio n. Normal appendix. Wall thickening of the splenic flexure with loss of the normal fat plane between the adjacent fluid collection. Postoperative changes of the intra-abdominal wall with suggestion of t iny fat filled umbilical hernias. No acute fracture or destructive bone lesion. IMPRESSION: 1. Postoperative changes compatible with recent gastrectomy with esophageal enteric anastomosis. 2. There is wall thickening at the anastomotic site with adjacent inflammatory stranding. Additionall y, there is a 5 cm peripherally enhancing air and fluid filled collection abutting the proximal anast omosis suggestive of a abscess/contained perforation which may include a fistula versus sinus tract. 3. Trace pericardial and left pleural effusions with mild left basilar atelectasis. 4. No bowel obstruction or pneumoperitoneum. 5. Mild wall thickening of the splenic flexure is likely reactive. A communicating sinus tract with t he adjacent fluid collection would be difficult to exclude. 6. Additional findings as above. ACT 112: Negative or not required by law. The above report was generated using voice recognition software. It may contain grammatical, syntax o r spelling errors. Electronically signed by: Lenyn Day M.D. 09/01/2023 12:20 PM
[2023-09-01] MEDS ORDERED: PIPERACILLIN/TAZOBACTAM 4.5 GM/100 ML BAG IV ONE (13:14)
[2023-09-01] MEDS ORDERED: HYDROmorphone INJ 0.5 MG/0.5 ML SYR IV STA (15:09)
[2023-09-01] MEDS ORDERED: ACETAMINOPHEN 1,000 MG/100 ML VIAL IV STA (15:09)
[2023-09-01] MEDS ORDERED: ONDANSETRON INJ 2 MG/ML 2 ML VIAL ONE (15:25)
[2023-09-01] MEDS ORDERED: ONDANSETRON INJ 2 MG/ML 2 ML VIAL IV ONE (15:26)
[2023-09-01] MEDS ORDERED: ONDANSETRON INJ 2 MG/ML 2 ML VIAL IV STA (15:29)
[2023-09-01] MEDS ORDERED: DROPERIDOL 5 MG/2 ML VIAL IV STA (16:41)
--- NOTE | 2023-09-01 17:43 | History & Physical Report ---
Date of Service September 01, 2023 Assessment & Plan (1) Postoperative abscess: (2) Esophageal cancer: (3) Nausea and vomiting: (4) Dehydration: Plan Mr. Yoder is a 58 year old male that presents to the ED with complaints of persistent nausea and vomiting. He was admitted locally here 05/29 to 06/01 for nausea and vomiting as well. 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 He underwent a gastrectomy with connection of his small bowel to his esophagus on 08/02 at [facility] and since then he has been having intermittent and now persistent nausea and vomiting. His GI surgeon did indicate that his symptoms would be expected but now he is feeling significantly dehydrated. Additional past medical history includes esophageal cancer status post stent placement with current FLOT treatment chemotherapy. No Leukocytosis, is afebrile and hemodynamically stable and overall appears non toxic. Zosyn was initiated in the ED.Pt denies abdominal tenderness, fever/chills, incisional pain, recent falls or trauma. His vertical midline abdominal incision appears non-infected and healing well. Has an upper wall midline that is accessed. In the ED abdomen and Pelvis CT: 1. Postoperative changes compatible with recent gastrectomy with esophageal enteric anastomosis. 2. There is wall thickening at the anastomotic site with adjacent inflammatory stranding. Additionally, there is a 5 cm peripherally enhancing air and fluid filled collection abutting the proximal anastomosis suggestive of a abscess/contained perforation which may include a fistula versus sinus tract. 3. Trace pericardial and left pleural effusions with mild left basilar atelectasis. 4. No bowel obstruction or pneumoperitoneum. 5. Mild wall thickening of the splenic flexure is likely reactive. A communicating sinus tract with the adjacent fluid collection would be difficult to exclude. ED initiated transfer for further evaluation in [place]. Discussion was held between ED doctor and Dr. Edmonds who is the receiving care physician. I confirmed timeframe [phone]. I spoke with Pratibha through the transfer center who indicated that there would not be a bed tonight. Postoperative abscess: Acute Status post gastrectomy 08/[address] [facility] No leukocytosis; otherwise labs unremarkable Does not appear toxic; Lactate pending Hemodynamically stable Trial clear liquids now; will keep n.p.o. after [place] Will initiate 0.9 NSS @ 75ml/hour Empirically started on Zosyn every 8 in ED Will start clear liquid diet until midnight; NPO after midnight Dr. Edmonds who is the receiving care physician at [place]. I confirmed timeframe through transfer center: [phone] Nausea and vomiting: Dehydration: Acute Persistent Zofran 8 mg given in ED followed by Compazine; continue Zofran PRN Anxiety: Chronic Has concerns with loud noises; Prescribed Ativan 0.5 mg Q6 PRN; takes anywhere from 2-3 per day Will keep home dose of Ativan PRN Esophageal cancer: Chronic Diagnosed 05/07 status post ERCP and chemo Completed FLOT treatment; last dose was in June Disposition: PCP: Trying to get established with Dr. Solis CODE STATUS: Full code VTE prophylaxis:Lovenox SQ I spent a total of 87 minutes coordinating, documenting, and providing care for this patient excluding time spent in the performance of separately billed services. All of the aforementioned completed while collaborating with the assigned attending physician for a full treatment plan. Please see their addendum for further details. History of Present Illness Chief Complaint: nausea and vomiting Primary Care Provider: NO PCP Mr. Yoder is a 58 year old male that presents to the ED with complaints of persistent nausea and vomiting and upper abdominal pain that has occured over the past three days. He states that he tries to vomit, unsuccessfully. He has had diarrhea from Tuesday into Tuesday. He was admitted locally here 05/29 to 06/01 for nausea and vomiting as well. 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 He underwent a gastrectomy with connection of his small bowel to his esophagus on 08/02 at [facility] and since then he has been having intermittent and now persistent nausea and vomiting. His GI surgeon did indicate that his symptoms would be expected but now he is feeling significantly dehydrated. Additional past medical history includes esophageal cancer status post stent placement with FLOT treatment chemotherapy that was completed at the beginning of June. No Leukocytosis, is afebrile and hemodynamically stable and overall appears non toxic. Zosyn was initiated in the ED. In the ED abdomen and Pelvis CT: 1. Postoperative changes compatible with recent gastrectomy with esophageal enteric anastomosis. 2. There is wall thickening at the anastomotic site with adjacent inflammatory stranding. Additionally, there is a 5 cm peripherally enhancing air and fluid filled collection abutting the proximal anastomosis suggestive of a abscess/contained perforation which may include a fistula versus sinus tract. 3. Trace pericardial and left pleural effusions with mild left basilar atelectasis. 4. No bowel obstruction or pneumoperitoneum. 5. Mild wall thickening of the splenic flexure is likely reactive. A communicating sinus tract with the adjacent fluid collection would be difficult to exclude. Pt denies abdominal tenderness, fever/chills, chest pain, dizziness, cough, dysuria, recent falls or trauma. ED initiated transfer for further evaluation in [place]. Discussion was held between ED doctor and Dr. Edmonds who is the receiving care physician. I confirmed timeframe [phone]. I spoke with Pratibha through the transfer center who indicated that there would not be a bed tonight. For now, we will admit with empiric antibiotic coverage and monitoring until transfer. Patient will be admitted for further evaluation and management. Please see A/P for further details. Allergies Allergy/AdvReac Type Severity Reaction Status Date / Time carbamazepine [From Tegretol] Allergy Mild Rash Verified 06/20/23 06:52 Home Medications Medication Instructions Recorded Confirmed Type chlorpromazine 25 mg tablet 25 mg PO Q6 PRN .nausea or hiccups 05/26/23 09/01/23 History ondansetron HCl 8 mg tablet 8 mg PO Q8 PRN Nausea 05/26/23 09/01/23 History cyanocobalamin (vitamin B-12) 1,000 mcg PO QDL 05/29/23 09/01/23 History 1,000 mcg tablet (Vitamin B-12) lidocaine-prilocaine 2.5 %-2.5 % 1 applic topical DIRECTED 05/29/23 09/01/23 History topical cream lorazepam 0.5 mg tablet 0.5 mg PO Q6 PRN .Anxiety/sleep 05/29/23 09/01/23 History morphine concentrate 100 mg/5 mL 2.5 mg PO Q4 PRN Pain 05/29/23 09/01/23 History (20 mg/mL) oral solution prochlorperazine maleate 10 mg 10 mg PO Q6 PRN Nausea 05/29/23 09/01/23 History tablet (Compazine) oxycodone 5 mg tablet 5 mg PO UD PRN Pain 09/01/23 09/01/23 History pantoprazole 40 mg tablet,delayed 40 mg PO BID PRN Other 09/01/23 09/01/23 History release Past Med/Surg History Medical History (Updated 09/01/23 @ 17:41 by CHAVO Esparza) Dehydration Nausea and vomiting History of recent blood transfusion 05/02/23 @ [facility] Enteropathogenic Escherichia coli infection Hyponatremia Trigeminal neuralgia Esophageal cancer diagnosed 04/2023--chemo/ERCP Hypomagnesemia Vomiting and diarrhea Iron deficiency received blood transfusion 05/02/23 @ [facility] Surgical History History of colonoscopy History of esophagogastroduodenoscopy (EGD) History of tooth extraction partial upper and lower denture History of ERCP 04/[address] [facility] [place] History of vascular access device A port--power port in placed on right side of chest Family History Other No family history of adverse response to anesthesia Social History Smoking Status: Never smoker Second Hand Exposure: No; Do You Dip or Chew Tobacco: No; Hx Alcohol Use: No (quit 3 months ago) Hx Substance Use: No Preferred Language: Estonian Communication Ability: Effective Churn Operator Required: No Beliefs That Will Affect Care: Spiritual Current Living Situation: Spouse Feels Safe at Home: Yes Assistive Devices: Denture - Upper, Denture - Lower and Glasses Review of Systems Review of Systems: Neuro: (-) Falls, trauma, slurred speech HEENT: (-) STEELE, dizziness, dysphagia, visual or auditory changes CV: (-) CP, palpitations, swelling Resp: (-) SOB GI: (-) appetite changes, N/V/D, bowel changes : (-) urinary changes Skin: (-) rashes Psych: (-) anxiety, depression Physical Exam Physical Exam: See Dr. Aponte's addendum for physical examination details Results & Data Results & Data Vital Signs (Past 12 Hours) Vital Signs Temp Pulse Pulse Resp BP BP Pulse Ox 09/01/23 17:00 73 12 126/83 97 09/01/23 16:00 60 20 124/79 96 09/01/23 15:30 98 09/01/23 15:24 98 09/01/23 15:24 148/95 H 09/01/23 15:08 136/85 09/01/23 15:08 99 09/01/23 15:00 67 20 137/97 97 09/01/23 14:30 61 15 99 09/01/23 14:00 63 11 L 98 09/01/23 13:33 69 14 99 09/01/23 13:33 130/83 09/01/23 13:33 67 18 130/83 99 09/01/23 13:30 71 3 L 99 09/01/23 13:00 68 19 99 09/01/23 12:50 77 18 115/76 98 09/01/23 12:30 60 9 L 96 09/01/23 12:02 58 L 16 97 09/01/23 12:00 57 L 19 99 09/01/23 11:58 61 09/01/23 11:30 66 9 L 99 09/01/23 11:00 59 L 16 99 09/01/23 10:30 57 L 11 L 100 09/01/23 10:28 58 L 12 100 09/01/23 09:35 36.9 C 87 18 120/84 100 O2 Del Method 09/01/23 17:00 09/01/23 16:00 09/01/23 15:30 09/01/23 15:24 09/01/23 15:24 09/01/23 15:08 09/01/23 15:08 09/01/23 15:00 Room Air 09/01/23 14:30 09/01/23 14:00 09/01/23 13:33 09/01/23 13:33 09/01/23 13:33 09/01/23 13:30 09/01/23 13:00 09/01/23 12:50 09/01/23 12:30 09/01/23 12:02 Room Air 09/01/23 12:00 09/01/23 11:58 09/01/23 11:30 09/01/23 11:00 09/01/23 10:30 09/01/23 10:28 09/01/23 09:35 Laboratory Results Short CBC 09/01/23 Range/Units 09:54 WBC 5.48 (4.8-10.8) K/ul Hgb 11.2 L (14.0-18.0) g/dl Hct 32.6 L (42.0-52.0) % Plt Count 453 H (130-400) K/uL BMP 09/01/23 09:54 Sodium 136 Potassium 3.5 Chloride 100 Carbon Dioxide 23 BUN 5 L Creatinine 0.71 Glucose 97 Calcium 9.9 Liver Function 09/01/23 Range/Units 09:54 Total Bilirubin 0.5 (0.2-1.0) mg/dl AST 11 L (13-39) U/L ALT 13 (7-52) U/L Alkaline Phosphatase 120 H (34-104) U/L Albumin 4.0 (3.4-5.0) gm/dl Diagnostic Findings Abdomen/Pelvis CT 09/01/23 11:[address] WITH IV CONTRAST CT DOSE: 386.27 mGy.cm HISTORY: Acute onset abdominal pain with nausea and vomiting recent gastrecomy, n/v, leak? TECHNIQUE: Multiaxial CT images of the abdomen and pelvis were performed following the IV administration of 90 cc of Optiray, A dose lowering technique was utilized adhering to the principles of ALARA. COMPARISON STUDY: 03/05/2023 FINDINGS: Trace pericardial and left pleural effusions. Mild left hemidiaphragmatic elevation with subsegmental left basilar atelectasis. No free air. Unremarkable spleen, adrenal glands, gallbladder and liver. Patent portal vein. The pancreatic duct measures within the upper limits of normal at 3-4 mm. No obstructing pancreatic ductal stone or lesion. No evidence of acute pancreatitis. Unremarkable kidneys. No hydronephrosis. Mild distention of the urinary bladder with mild prostamegaly. Atherosclerosis of the aorta without aneurysm. Postoperative changes from recent gastrectomy with enteric esophageal anastomosis. Subcentimeter gastrohepatic lymph nodes are present. There is a peripherally enhancing fluid collection within the abdominal left upper quadrant abutting the adjacent anastomotic sutures. This measures up to approximately 5 cm in length as measured on the sagittal images and contains nondependent air on image 48 series 3. This is curvilinear in shape and forms a tract to the enteric anastomosis on image 68 series 3 where there is circumferential wall thickening with adjacent inflammatory stranding. No bowel obstruction. Normal appendix. Wall thickening of the splenic flexure with loss of the normal fat plane between the adjacent fluid collection. Postoperative changes of the intra-abdominal wall with suggestion of tiny fat filled umbilical hernias. No acute fracture or destructive bone lesion. IMPRESSION: 1. Postoperative changes compatible with recent gastrectomy with esophageal enteric anastomosis. 2. There is wall thickening at the anastomotic site with adjacent inflammatory stranding. Additionally, there is a 5 cm peripherally enhancing air and fluid filled collection abutting the proximal anastomosis suggestive of a abscess/contained perforation which may include a fistula versus sinus tract. 3. Trace pericardial and left pleural effusions with mild left basilar atelectasis. 4. No bowel obstruction or pneumoperitoneum. 5. Mild wall thickening of the splenic flexure is likely reactive. A communicating sinus tract with the adjacent fluid collection would be difficult to exclude. 6. Additional findings as above. ACT 112: Negative or not required by law. The above report was generated using voice recognition software. It may contain grammatical, syntax or spelling errors. Electronically signed by: Lenny Day M.D. 09/01/2023 12:20 PM Code Status & VTE Plan Code Status Full code in the event of cardiac or respiratory arrest Supervising Physician Co-Signing Physician Notes 58-year-old male with PMH trigeminal neuralgia, esophageal cancer s/p esophageal stenting, gastrectomy with connection of his small bowel to his esophagus on 08/02 at [facility] presents with abdominal discomfort, nausea and vomiting worsened over the past few days. On exam, General: Chronically ill looking in no distress Eyes: PERRL, conjunctivae normal, not pale, anicteric sclerae, EOM intact bilaterally ENMT: External ear and nose normal, oropharynx normal Respiratory: Normal respiratory effort, no respiratory distress, lungs clear to auscultation, no crackles and no wheezes Cardiovascular: RRR S1 S2 Chest (Breasts): Port on right anterior chest wall Gastrointestinal (Abdomen): Abdomen is not distended, soft, mild central tenderness, no guarding, no palpable hepatosplenomegaly, normal bowel sounds, well healed surgical scar Musculoskeletal: No pedal edema Neurologic: Alert and oriented x 3, No focal weakness, sensation grossly intact Psychiatric: Alert and oriented x 3, euthymic affect CT abd notable for possible abscess at anastomotic site ER physician already spoke with [facility] and patient accepted for transfer However, no beds tonight Will admit here for tonight with plans to transfer to [facility] once bed is available Continue zosyn Liquid diet for now. NPO PMN Antiemetics prn Continue home meds I spent a total of 40 minutes coordinating, documenting and providing care for this patient excluding time spent in performance of separately billed services (2) Esophageal cancer Malignant neoplasm of esophagus location: lower third Qualified Code(s): C15.5 - Malignant neoplasm of lower third of esophagus
[2023-09-01] MEDS ORDERED: POLYETHYLENE (MIRALAX) 17 GM PACK PO PRN (17:44)
[2023-09-01] MEDS ORDERED: MAGNESIUM HYDROXIDE SUSP 30 ML UDC PO PRN (17:44)
[2023-09-01] MEDS ORDERED: ACETAMINOPHEN 325 MG TAB PO PRN (17:44)
[2023-09-01] MEDS ORDERED: ALUMINUM/MAGNESIUM SUSP 30 ML UDC PO PRN (17:44)
[2023-09-01] MEDS ORDERED: PANTOprazole 40 MG TAB PO PRN (18:21)
[2023-09-01] MEDS ORDERED: PROCHLORPERAZINE MALEATE 10 MG TAB PO PRN (18:21)
[2023-09-01] MEDS ORDERED: ONDANSETRON 4 MG OD TAB PO PRN (18:29)
[2023-09-01] MEDS: PIPER/TAZO 4.5g in D5W MINI-B 100 ML IV SCH (19:01)
[2023-09-02] MEDS ORDERED: PIPERACILLIN/TAZOBACTAM 4.5 GM in DEXTROSE 5% MINI-B 100 ML IV SCH
[2023-09-02] MEDS: PIPER/TAZO 4.5g in D5W MINI-B 100 ML IV SCH ×2 (02:53→11:11)
[2023-09-02] MEDS: ONDANSETRON INJ 2 MG/ML 2 ML VIAL IV PRN ×2 (03:23→09:11)
--- OUTSIDE RECORDS SUMMARY | 2023-09-02 05:45 | External Medical Summary | Summary of Care ---
Author Name Unknown Organization [facility] Address [address] [place] [address] Phone [phone] Care Team Providers Care Engineer And Geologist Name Role Phone Unavailable Primary Care Provider Unavailabl e Encounter Details Date Type Department Care Team (Late st Contact Info) Description 08/31/2023 12:20 PM EST [facility] General Surgery, [place] [address], [place] [id number] Praveen Edmonds MD [address], [place] [id number] Postop check* Allergies Active Allergy Reactions Criticality Noted Date Comments Carbamazepine Rash Medium 02/20/2018 documented as of this encounter (statuses as of 09/01/2023) Medications Medication Sig Dispensed Refills Start Date [...] as of this encounter (statuses as of 09/01/2023) Active Problems Problem Noted Date Diagnosed Date [...] as of this encounter (statuses as of 09/01/2023) Immunizations Name Administration Dates Next Due TDAP [...] / [facility] [place] [address] DATE: 08/31/2023 PROCEDURE: 08/02/2023 Gastrectomy A: Esophagus [...] him back as needed. Praveen Edmonds MD roll or tape edge machine operator Section Head, Surgical Oncology and Endocrine Surgery [facility] [address] [place] [address] Office: [phone] [email or web address] documented in this encounter Plan of Treatment Upcoming Encounters Date Type Department Care Team (Late st Contact Info) Description 09/02/2023 9:00 AM EST Telemedicine [facility] [address] [place] [address] Thaddeus Solis MD [address] [place] [address] 09/06/2023 1:45 PM EST Office Visit Hematology/Oncology [facility] [address] [facility] [place] [address] Cipriano Kuhn MD [address] [facility] [place] [address] 09/06/2023 2:15 PM EST Immunization/Injection Hematology/Oncology Treatment, [place] [address] [facility] [place] [address] Nurse, Med [address] [facility] [place] [address] Scheduled Procedures Name Priority Associated Diagnoses Date/Ti [...] encounter Medical Devices Implanted Type Area Sales Estimator Device Identifier Shelf Expiration Date Model / Serial / Lot Cement Hydroset Injectable 5cc - [id number] Implanted:Qty : 1 on 03/15/2018 by Ronak Khoury [place] [facility] [place]: Head JOHN 11/09/2019 [id number] / / [id number] Stent Wallf Esoph [id number] - [id number] Implanted:Qty : 1 on 04/01/2023 by Karson Goddard [place] [facility] [place]A: Esophagus [employer] : ENDOSCOPY [id number] 09/09/2024 [id number] / / [id number] Power Port 8fr Sngl Lumen Plas - [id number] Implanted:Qty : 1 on 04/19/2023 by Thaddeus Brown DO at [facility] Right: Chest CR BARD : PERIPHERAL VASCULAR [id number] 06/14/2024 [id number] / / [id number] documented as of this encounter Visit Diagnoses [...] the patient have Health Care Power of Hr Advisor? No Full Code 03/15/2018 8:20 AM 03/16/2018 2:36 PM This or enrique reflects the patients wishes and were consensually agreed upon. Question Answer Comments Discussion of Advance Directives occurred with: Patient Does the patient have a Living Will? No Does the patient have Health Care Power of Hr Advisor? No Full Code 03/15/2018 6:20 AM 03/15/2018 8:20 AM This or enrique reflects the patients wishes and were consensually agreed upon.
[2023-09-02 07:39] LABS: Hematocrit (blood only) 30.5 % (42.0-52.0); Hemoglobin 10.2 g/dl (14.0-18.0); Mean Corpuscular Hemoglobin 28.4 pg (25.0-34.0); Mean Corpuscular Hgb Conc 33.4 g/dL (32.0-36.0); Mean Platelet Volume 9.3 fL (9.4-12.4); Platelet Count 376 K/uL (130-400); RDW Coefficient of Variation 15.5 % (11.5-14.5); RDW Standard Deviation 47.6 fL (36.4-46.3); Red Blood Count 3.59 M/uL (4.70-6.10); White Blood Count 3.98 K/ul (4.8-10.8)
[2023-09-02 08:06] LABS: Albumin Globulin Ratio 1.1 (0.9-2); Albumin Level 3.6 gm/dl (3.4-5.0); BUN Creatinine Ratio 5.6 (10-20); Bilirubin,Total 0.5 mg/dl (0.2-1.0); Creatinine Clr Calc Pharmacy 93.6 ml/min; Est GFR (Non-African American) 102.7 ml/min; Globulin 3.3 gm/dl (2.5-4.0); Magnesium 1.7 mg/dl (1.7-2.4); Total Protein 6.9 gm/dl (6.0-8.3)
[2023-09-02] MEDS ORDERED: HYDROmorphone INJ 0.5 MG/0.5 ML SYR IV STA (08:51)
[2023-09-02] MEDS ORDERED: ENOXAPARIN INJ 40 MG/0.4 ML SYR SQ SCH (09:00)
[2023-09-02] MEDS: LORazepam 0.5 MG TAB PO PRN ×2 (09:04→13:42)
[2023-09-02] MEDS ORDERED: PROCHLORPERAZINE 10 MG in SYRINGE 8 ML IV PRN (09:12)
[2023-09-02] MEDS ORDERED: LACTATED RINGER'S 1,000 ML IV SCH (09:15)
--- NOTE | 2023-09-02 09:41 | XRay Report ---
SINGLE VIEW CHEST CLINICAL HISTORY: Dyspnea FINDINGS: An AP, portable, upright chest radiograph is compared to study dated 05/29/2023. A right in ternal jugular central venous infusion port is unchanged in position. The cardiomediastinal silhouett e is unremarkable. The lungs and pleural spaces are clear. No pneumothorax is seen. The skeletal stru ctures are osteopenic. There are chronic/healed right-sided rib fractures. IMPRESSION: No active disease in the chest. ACT 112: Negative or not required by law. Electronically signed by: Brian Love M.D. 09/02/2023 9:40 AM
[2023-09-02] MEDS ORDERED: HYDROmorphone INJ 0.5 MG/0.5 ML SYR IV PRN (10:23)
--- NOTE | 2023-09-02 11:19 | Hospitalist Progress Note ---
Date of Service September 02, 2023 Assessment & Plan (1) Postoperative abscess: (2) Esophageal cancer: (3) Nausea and vomiting: (4) Dehydration: Plan Mr. Yoder is a 58 year old male that presents to the ED with complaints of persistent nausea and vomiting. He was admitted locally here 05/29 to 06/01 for nausea and vomiting as well. 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 He underwent a gastrectomy with connection of his small bowel to his esophagus on 08/02 at [facility] and since then he has been having intermittent and now persistent nausea and vomiting. His GI surgeon did indicate that his symptoms would be expected but now he is feeling significantly dehydrated. Additional past medical history includes esophageal cancer status post stent placement with current FLOT treatment chemotherapy. No Leukocytosis, is afebrile and hemodynamically stable and overall appears non toxic. Zosyn was initiated in the ED.Pt denies abdominal tenderness, fever/chills, incisional pain, recent falls or trauma. His vertical midline abdominal incision appears non-infected and healing well. Has an upper wall midline that is accessed. In the ED abdomen and Pelvis CT: 1. Postoperative changes compatible with recent gastrectomy with esophageal enteric anastomosis. 2. There is wall thickening at the anastomotic site with adjacent inflammatory stranding. Additionally, there is a 5 cm peripherally enhancing air and fluid filled collection abutting the proximal anastomosis suggestive of a abscess/contained perforation which may include a fistula versus sinus tract. 3. Trace pericardial and left pleural effusions with mild left basilar atelectasis. 4. No bowel obstruction or pneumoperitoneum. 5. Mild wall thickening of the splenic flexure is likely reactive. A communicating sinus tract with the adjacent fluid collection would be difficult to exclude. ED initiated transfer for further evaluation in [place]. Discussion was held between ED doctor and Dr. Edmonds who is the receiving care physician. I confirmed timeframe [phone]. I spoke with Pratibha through the transfer center who indicated that there would not be a bed tonight. Postoperative abscess: Presented with acute abdominal pain and persistent nausea vomiting CT of the abdomen and pelvis did show possible intra-abdominal fluid collection/abscess with a status post recent surgery Status post gastrectomy with esophagojejunostomy 08/02 at [facility] due to malignant neoplasm of the stomach and esophagus No leukocytosis; otherwise labs unremarkable Does not appear toxic; Lactate -normal Hemodynamically stable Trial clear liquids now; will keep n.p.o. after MN Will initiate 0.9 NSS @ 75ml/hour and fluid were changed to lactated Ringer's to 125 cc an hour Empirically started on Zosyn every 8 in ED Will keep him n.p.o. Dr. Edmonds who is the receiving care physician at [place]. I confirmed timeframe through transfer center: [phone] He complains of ongoing pain and nausea vomiting He has been accepted to [place] and has a bed He will be transferred to [place] at around 1:45 PM Nausea and vomiting: Dehydration: Acute Persistent Zofran 8 mg given in ED followed by Compazine; continue Zofran PRN Has been getting intravenous Compazine and Zofran to control nausea and vomiting Anxiety: Chronic Has concerns with loud noises; Prescribed Ativan 0.5 mg Q6 PRN; takes anywhere from 2-3 per day Will keep home dose of Ativan PRN Esophageal cancer: Chronic Diagnosed 05/07 status post ERCP and chemo Completed FLOT treatment; last dose was in June Disposition: PCP: Trying to get established with Dr. Solis CODE STATUS: Full code VTE prophylaxis:Lovenox SQ Discussed with the and the patient He will be transferred to [place] Admission and Anticipated Discharge Date Admission Date: September 01, 2023 Subjective 09/02/2023 The patient was seen and examined in medical telemetry unit in presence of the He has been complaining of more pain in the upper abdomen and also nausea and vomiting He denies any shortness of breath, palpitation or chest pain Denies any fever and or chills Review of Systems Review of Systems: All systems reviewed and are unremarkable except as noted below Physical Exam Physical Exam: Lying in bed with acute distress due to abdominal pain and nausea and vomiting Constitutional: + ill appearing and average body habitus Eyes: PERRL, conjunctivae normal, anicteric sclerae ENMT: external ear and nose normal, oropharynx normal Neck: trachea midline, no thyromegaly Respiratory: no respiratory distress Auscultation: lungs clear to auscultation bilaterally Cardiovascular: Rate/Rhythm: regular rate and regular rhythm; not tachycardic Heart Sounds: normal S1 and normal S2; no murmur Extremities: no edema Gastrointestinal (Abdomen): Inspection/Auscultation: normal bowel sounds; abdomen not distended Percussion/Palpation: + abdomen tender (Epigastric area) and abdomen soft Musculoskeletal: No acute arthritis involving any of the joint Neurologic: normal touch/pain/proprioception and moves all extremities; no focal motor deficits Lymphatic: no cervical or axillary lymphadenopathy Results & Data Results & Data Vital Signs (Past 12 Hours) Vital Signs Temp Pulse Pulse Resp BP Pulse Ox O2 Del Method 09/02/23 07:54 36.4 C L 63 16 137/86 98 Room Air 09/02/23 07:25 58 L 09/02/23 05:58 36.3 C L 57 L 20 145/88 H 99 Room Air 09/02/23 04:04 36.6 C 69 20 138/85 97 Room Air 09/02/23 01:14 36.6 C 67 20 130/81 99 Room Air Laboratory Results Short CBC 09/02/23 Range/Units 07:24 WBC 3.98 L (4.8-10.8) K/ul Hgb 10.2 L (14.0-18.0) g/dl Hct 30.5 L (42.0-52.0) % Plt Count 376 (130-400) K/uL BMP 09/02/23 07:24 Sodium 135 L Potassium 4.0 Chloride 102 Carbon Dioxide 24 BUN 4 L Creatinine 0.71 Glucose 116 H Calcium 9.0 Liver Function 09/02/23 Range/Units 07:24 Total Bilirubin 0.5 (0.2-1.0) mg/dl AST 11 L (13-39) U/L ALT 12 (7-52) U/L Alkaline Phosphatase 94 (34-104) U/L Albumin 3.6 (3.4-5.0) gm/dl Medications Administered Current Inpatient Medications Acetaminophen (Acetaminophen 325 Mg Tab) 650 mg PO Q4H PRN PRN Reason: Pain or Fever Stop: 10/01/23 17:43 Last Admin: 09/02/23 03:22 Dose: 650 mg Al Hydrox/Mg Hydrox/Simethicone (Aluminum/Magnesium Susp 30 Ml Udc) 15 ml PO Q4H PRN PRN Reason: Dyspepsia Stop: 10/01/23 17:43 Enoxaparin Sodium (Enoxaparin Inj 40 Mg/0.4 Ml Syr) 40 mg SQ QAM GREG Stop: 10/02/23 08:59 Last Admin: 09/02/23 09:17 Dose: Not Given Hydromorphone HCl (Hydromorphone Inj 0.5 Mg/0.5 Ml Syr) 0.5 mg IV Q3H PRN PRN Reason: Pain Stop: 09/16/23 10:22 Last Admin: 09/02/23 12:23 Dose: 0.5 mg Piperacillin Sod/Tazobactam (Sod 4.5 gm/ Dextrose) 100 mls @ 25 mls/hr IV Q8H GREG; Protocol Stop: 09/11/23 18:59 Last Admin: 09/02/23 11:11 Dose: 25 mls/hr Lactated Ringer's (Lr) 1,000 mls @ 125 mls/hr IV .Q8H GREG Stop: 10/02/23 09:14 Last Admin: 09/02/23 09:17 Dose: 125 mls/hr Prochlorperazine 10 mg/ (Syringe) 10 mls @ 5 mls/min IV Q6H PRN PRN Reason: Nausea And Vomiting Stop: 10/02/23 09:11 Lorazepam (Lorazepam 0.5 Mg Tab) 0.5 mg PO Q6 PRN PRN Reason: .Anxiety/sleep Stop: 10/01/23 18:20 Last Admin: 09/02/23 09:04 Dose: 0.5 mg Magnesium Hydroxide (Magnesium Hydroxide Susp 30 Ml Udc) 30 ml PO Q12H PRN PRN Reason: Constipation Stop: 10/01/23 17:43 Ondansetron HCl (Ondansetron Inj 2 Mg/Ml 2 Ml Vial) 4 mg IV Q6H PRN PRN Reason: Nausea And Vomiting Stop: 10/02/23 02:58 Last Admin: 09/02/23 09:11 Dose: 4 mg Pantoprazole Sodium (Pantoprazole 40 Mg Tab) 40 mg PO BID PRN PRN Reason: Other Stop: 10/01/23 18:20 Polyethylene Glycol (Polyethylene (Miralax) 17 Gm Pack) 17 gm PO DAILY PRN PRN Reason: Constipation Stop: 10/01/23 17:43 (2) Esophageal cancer Malignant neoplasm of esophagus location: lower third Qualified Code(s): C15.5 - Malignant neoplasm of lower third of esophagus
--- NOTE | 2023-09-02 13:39 | Discharge Summary ---
Date of Service September 02, 2023 Admission HPI Per Admitting Provider Mr. Yoder is a 58 year old male that presents to the ED with complaints of persistent nausea and vomiting and upper abdominal pain that has occured over the past three days. He states that he tries to vomit, unsuccessfully. He has had diarrhea from Tuesday into Tuesday. He was admitted locally here 05/29 to 06/01 for nausea and vomiting as well. 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 He underwent a gastrectomy with connection of his small bowel to his esophagus on 08/02 at [facility] and since then he has been having intermittent and now persistent nausea and vomiting. His GI surgeon did indicate that his symptoms would be expected but now he is feeling significantly dehydrated. Additional past medical history includes esophageal cancer status post stent placement with FLOT treatment chemotherapy that was completed at the beginning of June. No Leukocytosis, is afebrile and hemodynamically stable and overall appears non toxic. Zosyn was initiated in the ED. In the ED abdomen and Pelvis CT: 1. Postoperative changes compatible with recent gastrectomy with esophageal enteric anastomosis. 2. There is wall thickening at the anastomotic site with adjacent inflammatory stranding. Additionally, there is a 5 cm peripherally enhancing air and fluid filled collection abutting the proximal anastomosis suggestive of a abscess/contained perforation which may include a fistula versus sinus tract. 3. Trace pericardial and left pleural effusions with mild left basilar atelectasis. 4. No bowel obstruction or pneumoperitoneum. 5. Mild wall thickening of the splenic flexure is likely reactive. A communicating sinus tract with the adjacent fluid collection would be difficult to exclude. Pt denies abdominal tenderness, fever/chills, chest pain, dizziness, cough, dysuria, recent falls or trauma. ED initiated transfer for further evaluation in [place]. Discussion was held between ED doctor and Dr. Edmonds who is the receiving care physician. I confirmed timeframe [phone]. I spoke with Pratibha through the transfer center who indicated that there would not be a bed tonight. For now, we will admit with empiric antibiotic coverage and monitoring until transfer. Patient will be admitted for further evaluation and management. Please see A/P for further details. Admission Exam Per Admitting Provider On exam, General: Chronically ill looking in no distress Eyes: PERRL, conjunctivae normal, not pale, anicteric sclerae, EOM intact bilaterally ENMT: External ear and nose normal, oropharynx normal Respiratory: Normal respiratory effort, no respiratory distress, lungs clear to auscultation, no crackles and no wheezes Cardiovascular: RRR S1 S2 Chest (Breasts): Port on right anterior chest wall Gastrointestinal (Abdomen): Abdomen is not distended, soft, mild central tenderness, no guarding, no palpable hepatosplenomegaly, normal bowel sounds, well healed surgical scar Musculoskeletal: No pedal edema Neurologic: Alert and oriented x 3, No focal weakness, sensation grossly intact Psychiatric: Alert and oriented x 3, euthymic affect Principal Diagnosis Postoperative abscess, status post gastrectomy with Esophago enteral anastomosis Discharge Exam Lying in bed with acute distress due to abdominal pain and nausea and vomiting Constitutional + ill appearing and average body habitus Eyes PERRL, conjunctivae normal, anicteric sclerae ENMT external ear and nose normal, oropharynx normal Neck trachea midline, no thyromegaly Respiratory no respiratory distress Auscultation: lungs clear to auscultation bilaterally Cardiovascular Rate/Rhythm: regular rate and regular rhythm; not tachycardic Heart Sounds: normal S1 and normal S2; no murmur Extremities: no edema Gastrointestinal (Abdomen) Inspection/Auscultation: normal bowel sounds; abdomen not distended Percussion/Palpation: + abdomen tender (Epigastric area) and abdomen soft Neurologic normal touch/pain/proprioception and moves all extremities; no focal motor deficits Lymphatic no cervical or axillary lymphadenopathy Discharge Data Allergies Allergy/AdvReac Type Severity Reaction Status Date / Time carbamazepine [From Tegretol] Allergy Mild Rash Verified 06/20/23 06:52 Consultations 09/01/23 17:30 ED Decision to Admit Stat Ordered Studies 09/01/23 11:17 CT abd pelvis IV con only Stat Hospital Course (1) Postoperative abscess: (2) Esophageal cancer: (3) Nausea and vomiting: (4) Dehydration: Plan Mr. Yoder is a 58 year old male that presents to the ED with complaints of persistent nausea and vomiting. He was admitted locally here 05/29 to 06/01 for nausea and vomiting as well. 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 He underwent a gastrectomy with connection of his small bowel to his esophagus on 08/02 at [facility] and since then he has been having intermittent and now persistent nausea and vomiting. His GI surgeon did indicate that his symptoms would be expected but now he is feeling significantly dehydrated. Additional past medical history includes esophageal cancer status post stent placement with current FLOT treatment chemotherapy. No Leukocytosis, is afebrile and hemodynamically stable and overall appears non toxic. Zosyn was initiated in the ED.Pt denies abdominal tenderness, fever/chills, incisional pain, recent falls or trauma. His vertical midline abdominal incision appears non-infected and healing well. Has an upper wall midline that is accessed. In the ED abdomen and Pelvis CT: 1. Postoperative changes compatible with recent gastrectomy with esophageal enteric anastomosis. 2. There is wall thickening at the anastomotic site with adjacent inflammatory stranding. Additionally, there is a 5 cm peripherally enhancing air and fluid filled collection abutting the proximal anastomosis suggestive of a abscess/contained perforation which may include a fistula versus sinus tract. 3. Trace pericardial and left pleural effusions with mild left basilar atelectasis. 4. No bowel obstruction or pneumoperitoneum. 5. Mild wall thickening of the splenic flexure is likely reactive. A communicating sinus tract with the adjacent fluid collection would be difficult to exclude. ED initiated transfer for further evaluation in [place]. Discussion was held between ED doctor and Dr. Edmonds who is the receiving care physician. I confirmed timeframe [phone]. I spoke with Pratibha through the transfer center who indicated that there would not be a bed tonight. Postoperative abscess: Presented with acute abdominal pain and persistent nausea vomiting CT of the abdomen and pelvis did show possible intra-abdominal fluid collection/abscess with a status post recent surgery Status post gastrectomy with esophagojejunostomy 08/02 at [facility] due to malignant neoplasm of the stomach and esophagus No leukocytosis; otherwise labs unremarkable Does not appear toxic; Lactate -normal Hemodynamically stable Trial clear liquids now; will keep n.p.o. after MN Will initiate 0.9 NSS @ 75ml/hour and fluid were changed to lactated Ringer's to 125 cc an hour Empirically started on Zosyn every 8 in ED Will keep him n.p.o. Dr. Edmonds who is the receiving care physician at [place]. I confirmed timeframe through transfer center: [phone] He complains of ongoing pain and nausea vomiting He has been accepted to [place] and has a bed He will be transferred to [place] at around 1:45 PM Nausea and vomiting: Dehydration: Acute Persistent Zofran 8 mg given in ED followed by Compazine; continue Zofran PRN Has been getting intravenous Compazine and Zofran to control nausea and vomiting Anxiety: Chronic Has concerns with loud noises; Prescribed Ativan 0.5 mg Q6 PRN; takes anywhere from 2-3 per day Will keep home dose of Ativan PRN Esophageal cancer: Chronic Diagnosed 05/07 status post ERCP and chemo Completed FLOT treatment; last dose was in June Disposition: PCP: Trying to get established with Dr. Solis CODE STATUS: Full code VTE prophylaxis:Lovenox SQ Discussed with the and the patient He will be transferred to [place] Total Time Total Time Spent Total Time Spent (In Minutes): 45 minutes Discharge Plan Discharge Items Patient Disposition: Transfer Acute Care Hospital Reason For Visit: N/V Discharge Diagnosis: Postoperative abscess, status post gastrectomy with Esophago enteral anastomosis Condition on Discharge: Fair Activity: Resume your previous activity Non-emergency contact: Primary Care Provider Call non-emergency contact if: you have any medication questions and your symptoms worsen Follow-up/Referrals: PCP,NO [Primary Care Provider] - Diet: Nothing by Mouth Addtl Attending Provider Instructions: He will be transferred to [place] for continued care All of his inpatient medications are continued as follows: Current Inpatient Medications Acetaminophen (Acetaminophen 325 Mg Tab) 650 mg PO Q4H PRN PRN Reason: Pain or Fever Stop: 10/01/23 17:43 Last Admin: 09/02/23 03:22 Dose: 650 mg Al Hydrox/Mg Hydrox/Simethicone (Aluminum/Magnesium Susp 30 Ml Udc) 15 ml PO Q4H PRN PRN Reason: Dyspepsia Stop: 10/01/23 17:43 Enoxaparin Sodium (Enoxaparin Inj 40 Mg/0.4 Ml Syr) 40 mg SQ QAM GREG Stop: 10/02/23 08:59 Last Admin: 09/02/23 09:17 Dose: Not Given Hydromorphone HCl (Hydromorphone Inj 0.5 Mg/0.5 Ml Syr) 0.5 mg IV Q3H PRN PRN Reason: Pain Stop: 09/16/23 10:22 Last Admin: 09/02/23 12:23 Dose: 0.5 mg Piperacillin Sod/Tazobactam (Sod 4.5 gm/ Dextrose) 100 mls @ 25 mls/hr IV Q8H GREG; Protocol Stop: 09/11/23 18:59 Last Admin: 09/02/23 11:11 Dose: 25 mls/hr Lactated Ringer's (Lr) 1,000 mls @ 125 mls/hr IV .Q8H GREG Stop: 10/02/23 09:14 Last Admin: 09/02/23 09:17 Dose: 125 mls/hr Prochlorperazine 10 mg/ (Syringe) 10 mls @ 5 mls/min IV Q6H PRN PRN Reason: Nausea And Vomiting Stop: 10/02/23 09:11 Lorazepam (Lorazepam 0.5 Mg Tab) 0.5 mg PO Q6 PRN PRN Reason: .Anxiety/sleep Stop: 10/01/23 18:20 Last Admin: 09/02/23 09:04 Dose: 0.5 mg Magnesium Hydroxide (Magnesium Hydroxide Susp 30 Ml Udc) 30 ml PO Q12H PRN PRN Reason: Constipation Stop: 10/01/23 17:43 Ondansetron HCl (Ondansetron Inj 2 Mg/Ml 2 Ml Vial) 4 mg IV Q6H PRN PRN Reason: Nausea And Vomiting Stop: 10/02/23 02:58 Last Admin: 09/02/23 09:11 Dose: 4 mg Pantoprazole Sodium (Pantoprazole 40 Mg Tab) 40 mg PO BID PRN PRN Reason: Other Stop: 10/01/23 18:20 Polyethylene Glycol (Polyethylene (Miralax) 17 Gm Pack) 17 gm PO DAILY PRN PRN Reason: Constipation Stop: 10/01/23 17:43 Pending Studies at Discharge: No Stand-Alone Forms: [facility] Skilled Items Patient informed of condition?: Yes DNR: No Discharge Level of Care: Other Communicable Disease: No Discharge Prognosis: Stable Lines: Peripheral IV Urinary Catheter: No Medications and DC Order Prescriptions: Continued ondansetron HCl 8 mg tablet 8 mg PO Q8 PRN (Reason: Nausea) chlorpromazine 25 mg tablet 25 mg PO Q6 PRN (Reason: .nausea or hiccups) prochlorperazine maleate [Compazine] 10 mg tablet 10 mg PO Q6 PRN (Reason: Nausea) morphine concentrate 100 mg/5 mL (20 mg/mL) solution 2.5 mg PO Q4 PRN (Reason: Pain) Rx Instructions: per he takes 2.5 mg 09/01/23 Take 0.25 ml cyanocobalamin (vitamin B-12) [Vitamin B-12] 1,000 mcg Tablet 1,000 mcg PO QDL lidocaine-prilocaine 2.5-2.5 % Cream 1 applic topical DIRECTED Rx Instructions: Apply to skin over mediport & cover 1 hr prior to accessing. lorazepam 0.5 mg tablet 0.5 mg PO Q6 PRN (Reason: .Anxiety/sleep) oxycodone 5 mg tablet 5 mg PO UD PRN (Reason: Pain) Rx Instructions: has it filled if he needs it. pantoprazole 40 mg tablet,delayed release (DR/EC) 40 mg PO BID PRN (Reason: Other) Discharge Orders: Discharge Order (Routine); Ordered 09/02/23 Ordered By: Carli Migeul Admission Data Admit Date/Time: 09/01/23 17:44 Attending Provider: Carli Miguel Admit Provider: Susi Aponte I. Primary Care Provider: PCP,NO Other Providers: Susi Aponte I.
--- NOTE | 2023-09-02 22:57 | Electrocardiogram Report ---
Test Reason : Blood Pressure : / mmHG Vent. Rate : 060 BPM Atrial Rate : 000 BPM P-R Int : 000 ms QRS Dur : 074 ms QT Int : 424 ms P-R-T Axes : 000 087 082 degrees QTc Int : 424 ms Sinus rhythm When compared with ECG of 29-MAY-2023 13:04, T wave inversion no longer evident in Inferior leads Nonspecific T wave abnormality now evident in Lateral leads Confirmed by Noé Mathis ([id number]) on 09/02/2023 10:56:45 PM Referred By: REFERRED SELF Confirmed By:Noé Mathis
== END 2023-09-02 14:07 | disposition short-term general hospital (02) | DRG 862 ==
LOC: ED 09:34 → SUATTDRO 17:44 → EDINP 17:44 → 2N 20:37

== ENCOUNTER 2023-10-04 07:57 | Inpatient (IN) ==
--- NOTE | 2023-10-04 08:08 | Emergency Department Note ---
Impression & Plan Nausea and vomiting, Esophageal cancer, Weakness ED Provider Note Provider: Onofre Quach MD DATE OF SERVICE: 10/04/2023 CHIEF COMPLAINT: Vomiting uncontrolled HISTORY OF PRESENT ILLNESS: Patient is a 58-year-old gentleman unfortunate history of cancer status postgastrectomy in July 2023 at [facility] presenting here today reporting intractable nausea and vomiting. Last week had an NG tube placed for feeds. No significant pain or discomfort reported. Is passing gas. Having heavy feeds. Clear vomit. Zofran and Compazine at home again not helping. Home health visited. Feel that he needs additional care and likely skilled care. No falls but weakening. No fevers reported. Has not been able to get Emend nausea medicine yet. PAST MEDICAL HISTORY: As noted above MEDICATIONS: Reviewed home medications SOCIAL HISTORY: At home with PHYSICAL EXAM: GENERAL: alert and oriented in no acute distress on stretcher fatigued in appearance. NG tube in place Head: normocephalic and atraumatic EYES: No injection, discharge or icterus. NECK: Trachea midline. ENT: Mucous membranes pink and moist. LUNGS: Airway patent. No retractions or tachypnea HEART: Regular rate and rhythm. No chest wall tenderness ABDOMEN: Soft and non-tender, without guarding or rebound. Healing midline wound with small seroma noted without significant erythema. No large hernia or mass appreciated. SKIN: Acyanotic, warm, dry, without rashes EXTREMITIES: Without swelling, tenderness or deformity NEUROLOGICAL: No focal deficits. No aphasia. No facial droop or slurred speech. Ambulatory. EK bpm normal sinus rhythm. No PVC or PAC. No acute ST segment elevation or depression with a QTc of 422. CONTINUOUS CARDIAC MONITORING: was ordered and showed a heart rate of 70s bpm in normal sinus rhythm Patient's laboratory studies and imaging reviewed. Differential includes Infection, dehydration, metabolic abnormality, hypo/hyperglycemia, electrolyte disturbance, anemia, hypoxia, cardiac sources, intracerebral event, toxicologic, neurologic, as well as other pathologies. IMPRESSION/MEDICAL DECISION MAKING: X-ray obtained initially to ensure NG tube placement. Will look for dilated bowel loops but does not seem that obstructed on exam. Not having significant pain or distention. Poor tolerance of nausea and is now attempting NG feedings. Seemingly needs additional help. Has not fallen at this time but weakening and high risk. Blood work obtained here without significant leukocytosis. No fevers reported. Doubt infection. No severe electrolyte abnormalities noted. No evidence of acute hepatitis. No evidence of acute pancreatitis based on labs. EKG is reassuring. NG appears to terminate below the diaphragm on KUB without significant obstructive findings noted. Will not and severe dehydration weakening and not tolerating well and needs better symptom control. Also sounds like needs additional assistance with feeds and care. Wishing for Center care referrals. Discussed with case management will bring in the hospital for this placement. Do not feel a CT is emergently needed at this time given the x-ray and my doubts for obstruction at this point. Given some fluid and IV Compazine here. Some improvement with this. Case management unable to again find placement today and hospitalist contacted. DIAGNOSIS: Nausea and vomiting, esophageal cancer, weakness DISPOSITION: Hospitalist will evaluate Patient was agreeable with this plan. Past Med/Surg History Medical History Dehydration Nausea and vomiting History of recent blood transfusion 05/02/23 @ [facility] Enteropathogenic Escherichia coli infection Hyponatremia Trigeminal neuralgia Esophageal cancer diagnosed 04/2023--chemo/ERCP Hypomagnesemia Vomiting and diarrhea Iron deficiency received blood transfusion 05/02/23 @ [facility] Surgical History History of colonoscopy History of esophagogastroduodenoscopy (EGD) History of tooth extraction partial upper and lower denture History of ERCP 04/2023 @ [facility] History of vascular access device A port--power port in placed on right side of chest Family History Other No family history of adverse response to anesthesia Social History (Updated 10/04/23 @ 11:46 by Kim Benitez PA-C) Smoking Status: Former smoker Second Hand Exposure: No; Do You Dip or Chew Tobacco: No; Hx Alcohol Use: No Hx Substance Use: No Preferred Language: Malay Communication Ability: Effective Gradall Operator Required: No Beliefs That Will Affect Care: None Current Living Situation: Spouse Feels Safe at Home: Yes Assistive Devices: None Allergies Allergies Allergy/AdvReac Type Severity Reaction Status Date / Time carbamazepine [From Tegretol] Allergy Mild Rash Verified 06/20/23 06:52 Home Meds Home Medications Medication Instructions Recorded Confirmed chlorpromazine 25 mg tablet 25 mg PO Q6 PRN .nausea or hiccups 05/26/23 10/04/23 ondansetron HCl 8 mg tablet 8 mg PO Q8 PRN Nausea 05/26/23 10/04/23 cyanocobalamin (vitamin B-12) 1,000 mcg PO QDL 05/29/23 10/04/23 1,000 mcg tablet (Vitamin B-12) lidocaine-prilocaine 2.5 %-2.5 % 1 applic topical DIRECTED 05/29/23 10/04/23 topical cream lorazepam 0.5 mg tablet 0.5 mg PO Q6 PRN .Anxiety/sleep 05/29/23 10/04/23 morphine concentrate 100 mg/5 mL 2.5 mg PO Q4 PRN Pain 05/29/23 10/04/23 (20 mg/mL) oral solution prochlorperazine maleate 10 mg 10 mg PO Q6 PRN Nausea 05/29/23 10/04/23 tablet (Compazine) oxycodone 5 mg tablet 5 mg PO UD PRN Pain 09/01/23 10/04/23 pantoprazole 40 mg tablet,delayed 40 mg PO BID PRN Other 09/01/23 10/04/23 release aprepitant 40 mg capsule 40 mg PO DAILY 10/04/23 10/04/23 escitalopram oxalate 10 mg tablet 10 mg PO DAILY 10/04/23 10/04/23 scopolamine base 1 mg over 3 days 1 mg transdermal Q3D 10/04/23 10/04/23 transdermal patch Results & Data (ED) Vital Signs Vital Signs - 24 hr 10/04/23 08:00 10/04/23 08:42 10/04/23 08:50 Temperature 36.7 C Temperature Source Temporal Artery Scan Pulse Rate 87 68 Pulse Rate [Apical] Pulse Rhythm Regular Pulse Rhythm [Apical] Pulse Strength Normal Respiratory Rate 20 Respiratory Effort / Characteristics Non-Labored Spontaneous Respiratory Depth Normal Respiratory Pattern Regular Blood Pressure 121/85 Blood Pressure [Right Arm] Blood Pressure Mean 97 Blood Pressure Mean [Right Arm] Blood Pressure Position Sitting Pulse Oximetry 98 99 Oxygen Delivery Method Room Air Room Air Sepsis Recent Fever Within 48 Hours No Sepsis New/Unexplained Change in Mental Status No Sepsis Action Taken by Nursing No Action Required 10/04/23 11:20 Temperature Temperature Source Pulse Rate Pulse Rate [Apical] 85 Pulse Rhythm Pulse Rhythm [Apical] Regular Pulse Strength Respiratory Rate 14 Respiratory Effort / Characteristics Non-Labored Respiratory Depth Normal Respiratory Pattern Blood Pressure Blood Pressure [Right Arm] 119/85 Blood Pressure Mean Blood Pressure Mean [Right Arm] 96 Blood Pressure Position Pulse Oximetry 97 Oxygen Delivery Method Room Air Sepsis Recent Fever Within 48 Hours Sepsis New/Unexplained Change in Mental Status Sepsis Action Taken by Nursing Laboratory Data 10/04/23 08:17 10/04/23 08:17 Lab Results 10/04/23 10/04/23 Range/Units 08:17 08:31 WBC 7.38 (4.8-10.8) K/ul RBC 4.38 L (4.70-6.10) M/uL Hgb 12.7 L (14.0-18.0) g/dl Hct 37.6 L (42.0-52.0) % MCV 85.8 (80.0-100.0) fL MCH 29.0 (25.0-34.0) pg MCHC 33.8 (32.0-36.0) g/dL RDW Std Deviation 45.2 (36.4-46.3) fL RDW Coeff of Stone 14.3 (11.5-14.5) % Plt Count 300 (130-400) K/uL MPV 9.9 (9.4-12.4) fL Immature Gran % (Auto) 0.3 % Neut % (Auto) 72.4 % Lymph % (Auto) 16.5 % [place] % (Auto) 10.2 % Eos % (Auto) 0.3 % Baso % (Auto) 0.3 % Neut # (Auto) 5.35 (1.40-6.50) K/uL Lymph # (Auto) 1.22 (1.20-3.40) K/uL [place] # (Auto) 0.75 H (0.11-0.59) K/uL Eos # (Auto) 0.02 (0.00-0.50) K/uL Baso # (Auto) 0.02 (0.00-0.20) K/uL Immature Gran # (Auto) 0.02 (0.01-0.20) K/uL Sodium 135 L (136-145) mmol/L Potassium 4.3 (3.5-5.1) mmol/L Chloride 98 (98-107) mmol/L Carbon Dioxide 28 (21-32) mmol/L Anion Gap 9 (3-11) BUN 15 (6-23) mg/dl Creatinine 0.53 L (0.6-1.4) mg/dl Est Cr Clr Drug Dosing Not Reportable Est GFR ( Amer) 134.2 ml/min Est GFR (Non-Af Amer) 115.8 ml/min BUN/Creatinine Ratio 28.3 H (10-20) Glucose 96 (70-99(Fasting)) mg/dl Calcium 10.0 (8.6-10.3) mg/dl Total Bilirubin 0.2 (0.2-1.0) mg/dl AST 15 (13-39) U/L ALT 17 (7-52) U/L Alkaline Phosphatase 78 (34-104) U/L Troponin I High Sens 2.7 (0-20) pg/ml Total Protein 7.8 (6.0-8.3) gm/dl Albumin 4.5 (3.4-5.0) gm/dl Globulin 3.3 (2.5-4.0) gm/dl Albumin/Globulin Ratio 1.4 (0.9-2) Lipase 15 (11-82) U/L SARS-CoV-2, RNA, NAAT NEGATIVE (NEGATIVE) Administered Medications Discontinued Medications Sodium Chloride (Nss) 500 mls @ 999 mls/hr IV .Q31M STA Stop: 10/04/23 08:46 Last Infusion: 10/04/23 08:59 Dose: Infused Documented By: Admin: 10/04/23 08:29 Dose: 999 mls/hr Documented By: JAYLAN Prochlorperazine (Compazine) 2 mls @ 1 mls/min IV ONE ONE Stop: 10/04/23 08:17 Last Admin: 10/04/23 08:29 Dose: 1 mls/min Documented By: JAYLAN Prochlorperazine 10 mg/ (Syringe) 10 mls @ 5 mls/min IV ONE ONE Stop: 10/04/23 10:30 Last Admin: 10/04/23 11:17 Dose: 5 mls/min Documented By: JOSR Imaging Data Radiologist's Impression: KUB X-Ray 10/04/23 08:19 KUB HISTORY: NG tube, nausea COMPARISON: Abdomen and pelvis CT 09/24/2023. FINDINGS: The bowel gas pattern is unremarkable. There are no dilated loops of small bowel to suggest an obstruction. No renal calculi. No ureteral calculi. No pneumoperitoneum or pneumatosis. Nasogastric tube terminates in the proximal stomach. The fenestrated line is at the distal esophagus. 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 The lung bases are clear. Partially visualized catheter within the SVC. IMPRESSION: Nasogastric tube terminates in the proximal stomach. The fenestrated line is at the distal esophagus. ACT 112: Negative or not required by law. Electronically signed by: Tom Causey M.D. 10/04/2023 9:27 AM Discharge Plan Visit Data Chief Complaint: Nausea Stated Complaint: NAUSEA AFTER GASTRECTOMY ED Provider: Onofre Quach Discharge Problem: Nausea and vomiting, Esophageal cancer, Weakness Patient Disposition: Being Evaluated by Hospitalist Forms Stand Alone Forms: [email or web address] Prescriptions Prescriptions: No Action ondansetron HCl 8 mg tablet 8 mg PO Q8 PRN (Reason: Nausea) chlorpromazine 25 mg tablet 25 mg PO Q6 PRN (Reason: .nausea or hiccups) prochlorperazine maleate [Compazine] 10 mg tablet 10 mg PO Q6 PRN (Reason: Nausea) morphine concentrate 100 mg/5 mL (20 mg/mL) solution 2.5 mg PO Q4 PRN (Reason: Pain) Rx Instructions: per he takes 2.5 mg 09/01/23 Take 0.25 ml cyanocobalamin (vitamin B-12) [Vitamin B-12] 1,000 mcg Tablet 1,000 mcg PO QDL lidocaine-prilocaine 2.5-2.5 % Cream 1 applic topical DIRECTED Rx Instructions: Apply to skin over mediport & cover 1 hr prior to accessing. lorazepam 0.5 mg tablet 0.5 mg PO Q6 PRN (Reason: .Anxiety/sleep) oxycodone 5 mg tablet 5 mg PO UD PRN (Reason: Pain) Rx Instructions: has it filled if he needs it. pantoprazole 40 mg tablet,delayed release (DR/EC) 40 mg PO BID PRN (Reason: Other) scopolamine base 1 mg over 3 days patch 3 day 1 mg transdermal Q3D aprepitant 40 mg capsule 40 mg PO DAILY escitalopram oxalate 10 mg tablet 10 mg PO DAILY Referrals Referrals: Thaddeus Solis MD [Primary Care Provider] -
[2023-10-04] MEDS: PROCHLORPERAZINE 2 ML IV ONE (08:29)
[2023-10-04] MEDS: SODIUM CHLORIDE 0.9% 500 ML IV STA (08:29)
[2023-10-04 08:37] LABS: Basophils # (auto) 0.02 K/uL (0.00-0.20); Basophils % (auto) 0.3 %; Eosinophils # (auto) 0.02 K/uL (0.00-0.50); Eosinophils % (auto) 0.3 %; Hematocrit (blood only) 37.6 % (42.0-52.0); Hemoglobin 12.7 g/dl (14.0-18.0); Immature Granulocytes # (auto) 0.02 K/uL (0.01-0.20); Immature Granulocytes % (auto) 0.3 %; Lymphocytes # (auto) 1.22 K/uL (1.20-3.40); Lymphocytes % (auto) 16.5 %; Mean Corpuscular Hgb Conc 33.8 g/dL (32.0-36.0); Mean Corpuscular Volume 85.8 fL (80.0-100.0); Mean Platelet Volume 9.9 fL (9.4-12.4); Monocytes # (auto) 0.75 K/uL (0.11-0.59); Monocytes % (auto) 10.2 %; Neutrophils # (auto) 5.35 K/uL (1.40-6.50); Neutrophils % (auto) 72.4 %; Platelet Count 300 K/uL (130-400); RDW Coefficient of Variation 14.3 % (11.5-14.5); RDW Standard Deviation 45.2 fL (36.4-46.3); Red Blood Count 4.38 M/uL (4.70-6.10); White Blood Count 7.38 K/ul (4.8-10.8)
[2023-10-04 08:50] LABS: Alanine Aminotransferase 17 U/L (7-52); Albumin Globulin Ratio 1.4 (0.9-2); Albumin Level 4.5 gm/dl (3.4-5.0); Alkaline Phosphatase 78 U/L (34-104); Anion Gap 9 (3-11); Aspartate Aminotransferase 15 U/L (13-39); BUN Creatinine Ratio 28.3 (10-20); Bilirubin,Total 0.2 mg/dl (0.2-1.0); Blood Urea Nitrogen 15 mg/dl (6-23); Carbon Dioxide 28 mmol/L (21-32); Chloride 98 mmol/L (98-107); Est GFR (African American) 134.2 ml/min; Est GFR (Non-African American) 115.8 ml/min; Globulin 3.3 gm/dl (2.5-4.0); Glucose 96 mg/dl (70-99(Fasting)); Lipase 15 U/L (11-82); Potassium 4.3 mmol/L (3.5-5.1); Sodium 135 mmol/L (136-145); Total Protein 7.8 gm/dl (6.0-8.3)
[2023-10-04 08:57] LABS: Troponin I High Sensitivity 2.7 pg/ml (0-20)
--- NOTE | 2023-10-04 09:28 | XRay Report ---
KUB HISTORY: NG tube, nausea COMPARISON: Abdomen and pelvis CT 09/24/2023. FINDINGS: The bowel gas pattern is unremarkable. There are no dilated loops of small bowel to suggest an obstruction. No renal calculi. No ureteral calculi. No pneumoperitoneum or pneumatosis. Nasogast noble tube terminates in the proximal stomach. The fenestrated line is at the distal esophagus. Postope rative changes suggestive of prior Yeison-en-Y gastric bypass. The lung bases are clear. Partially visu alized catheter within the SVC. IMPRESSION: Nasogastric tube terminates in the proximal stomach. The fenestrated line is at the distal esophagus. ACT 112: Negative or not required by law. Electronically signed by: Tom Causey M.D. 10/04/2023 9:27 AM
--- NOTE | 2023-10-04 10:51 | History & Physical Report ---
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 Edmonds. He is presenting for intractable N/V. Hospitalized at [facility] 09/02 to 09/05 secondary to 5 cm abscess at anastomotic site. Treated with IV Zosyn and transition to oral Augmentin. Represented back to [facility] on 09/26 to 09/29 secondary to intractable nausea, vomiting and inability to tolerate oral intake. He was seen and evaluated by GI. He underwent EGD which showed normal anastomotic site and an NJ tube was placed. He was started on tube feeds and is currently on Peptamen 1.5 continuously at 55/h. He is tolerating this. He continues to have nausea and vomiting at home despite oral Zofran and Compazine. Amend was helpful in hospital, but unable to obtain as outpatient. Presents to ED today 2/2 persistent N/V. 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 Edmonds Dehydration from N/V admit to medical continue Peptamen tube feedings via NJ, will consult drop count associate consult GI to assist with intractable nausea will need to determine if pt is going to require further means of artificial nutrition for ex J tube? received 2 rounds of compazine in ED will utilize Emend if returns IV pepcid BID consult PT/OT - and pt wish to pursue rehab obtain cbc, cmp, mag, phos in am. Anemia h/h stable at 12.7/37.6 no s/sx of bleeding b12, folic acid levels normal as op ferritin 351, iron 50, TIBC 190 09/05/23 DVT ppx: SQ Lovenox DNR/DNI PCP: Dr. Solis Dispo: admit to medical, PT/OT, pt hopeful for rehab Pt was seen and examined in collaboration with Dr. Miguel, please see addendum A total of 80 minutes was spent coordinating, documenting, and providing care for this patient excluding time spent in the performance of separately billed services. This included personally viewing all current laboratories and imaging studies, medication reconciliation, outpatient chart review, and discussion with specialists. Patients Latonia would like phone updates from providers if she is not at bedside as she lives an hour away. . 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 Edmonds. Of significance he was recently admitted to [facility] on 09/02 to 09/05 for a 5 cm abscess near the EJ anastomosis. He was treated with augmentin. He was then readmitted 09/26 to 09/29 secondary to nausea and concern for malnutrition. GI was consulted and he underwent EGD with placement of NJ tube. A normal esophageal jejunal anastomosis was found with a normal examined jejunum. Tube feeds were initiated and titrated to goal. He has been tolerating Peptamen 1.5 at 55 mL/h continuously. Amend was started for nausea with significant improvement in nausea. He was also started on a full liquid diet with protein supplements. Since being discharged home he continues to have difficulty with nausea. Unfortunately he was unable to obtain amend as an outpatient. According to at bedside, who also helps elicit history, this is still in the process. Since being discharged home he continues to have nausea and vomiting. He is not getting any sleep due to vomiting. Mostly vomit is pure bile, but yesterday there was evidence of some blood in vomit. He is moving bowels and denies any melena or hematochezia. He denies any omar abdominal pain. He denies any bloating. He continues to tolerate tube feeding. PCP started patient on scopolamine patch 2 weeks ago. He does not feel this helped his symptoms. He has home nursing but at bedside feels this isn't enough as they can't control his nausea. He generally feels weak. He is walking w/o assist device, but feels he could use a cane. PCP recently started him on escitalopram 2 weeks ago. He denies any f/c/s, chest pain, sob, cough, uri sx, abd pain, dysuria, increased urg/freq with urination. In ED he received Compazine with initial relief, but nausea is now returning. Allergies Allergy/AdvReac Type Severity Reaction Status Date / Time carbamazepine [From Tegretol] Allergy Mild Rash Verified 06/20/23 06:52 Home Medications Medication Instructions Recorded Confirmed Type chlorpromazine 25 mg tablet 25 mg PO Q6 PRN .nausea or hiccups 05/26/23 10/04/23 History ondansetron HCl 8 mg tablet 8 mg PO Q8 PRN Nausea 05/26/23 10/04/23 History cyanocobalamin (vitamin B-12) 1,000 mcg PO QDL 05/29/23 10/04/23 History 1,000 mcg tablet (Vitamin B-12) lidocaine-prilocaine 2.5 %-2.5 % 1 applic topical DIRECTED 05/29/23 10/04/23 History topical cream lorazepam 0.5 mg tablet 0.5 mg PO Q6 PRN .Anxiety/sleep 05/29/23 10/04/23 History morphine concentrate 100 mg/5 mL 2.5 mg PO Q4 PRN Pain 05/29/23 10/04/23 History (20 mg/mL) oral solution prochlorperazine maleate 10 mg 10 mg PO Q6 PRN Nausea 05/29/23 10/04/23 History tablet (Compazine) oxycodone 5 mg tablet 5 mg PO UD PRN Pain 09/01/23 10/04/23 History pantoprazole 40 mg tablet,delayed 40 mg PO BID PRN Other 09/01/23 10/04/23 History release aprepitant 40 mg capsule 40 mg PO DAILY 10/04/23 10/04/23 History escitalopram oxalate 10 mg tablet 10 mg PO DAILY 10/04/23 10/04/23 History scopolamine base 1 mg over 3 days 1 mg transdermal Q3D 10/04/23 10/04/23 History transdermal patch Past Med/Surg History Medical History Dehydration Nausea and vomiting History of recent blood transfusion 05/02/23 @ [facility] Enteropathogenic Escherichia coli infection Hyponatremia Trigeminal neuralgia Esophageal cancer diagnosed 04/2023--chemo/ERCP Hypomagnesemia Vomiting and diarrhea Iron deficiency received blood transfusion 05/02/23 @ [facility] Surgical History History of colonoscopy History of esophagogastroduodenoscopy (EGD) History of tooth extraction partial upper and lower denture History of ERCP 04/2023 @ [facility] [place] History of vascular access device A port--power port in placed on right side of chest Family History Other No family history of adverse response to anesthesia Social History (Updated 10/04/23 @ 11:46 by Kim Benitez PA-C) Smoking Status: Former smoker Second Hand Exposure: No; Do You Dip or Chew Tobacco: No; Hx Alcohol Use: No Hx Substance Use: No Preferred Language: Romanian Communication Ability: Effective Auger Supervisor Required: No Beliefs That Will Affect Care: None Current Living Situation: Spouse Feels Safe at Home: Yes Assistive Devices: None Review of Systems Review of Systems: All systems reviewed & are unremarkable except as noted in HPI & below Physical Exam Physical Exam: Constitutional: Thin, chronically ill appear, minimal eye contact, vitals as above, NAD, sitting up in bed, answers questions appropriately Head: Normocephalic, Atraumatic Eyes: PERRL, conjunctivae normal, anicteric sclerae ENMT: external ear and nose normal, oropharynx normal. NJ tube in place Neck: trachea midline, no thyromegaly normal visual inspection Respiratory: normal respiratory effort, lungs clear to auscultation, no wheeze, rales, rhonchi. Normal insp/exp effort, no accessory muscle use Cardiovascular: RRR, no murmur, no edema Vessels: no JVD or carotid bruit Chest: normal inspection of chest Abdomen: normal bowel sounds, soft, nontender, no hepatosplenomegaly Musculoskeletal: no cyanosis or clubbing, AROM x 4 Skin: no rashes, warm and dry normal turgor Neurologic: PERRL, EOMI, accommodation nl, no face palsy, no dysarthria CN's II-XI intact bilaterally and moves all extremities Psychiatric: A+Ox3, dysthymic affect Lymphatic: no cervical or axillary lymphadenopathy : deferred Results & Data Results & Data Vital Signs (Past 12 Hours) Vital Signs Temp Pulse Resp BP Pulse Ox O2 Del Method 10/04/23 08:50 68 10/04/23 08:42 99 Room Air 10/04/23 08:00 36.7 C 87 20 121/85 98 Room Air Laboratory Results I have independently reviewed and interpreted patient's admitting labs including CBC, CMP, PTT, PT/INR, lipase and troponin. Diagnostic Findings KUB X-Ray 10/04/23 08:19 KUB HISTORY: NG tube, nausea COMPARISON: Abdomen and pelvis CT 09/24/2023. FINDINGS: The bowel gas pattern is unremarkable. There are no dilated loops of small bowel to suggest an obstruction. No renal calculi. No ureteral calculi. No pneumoperitoneum or pneumatosis. Nasogastric tube terminates in the proximal stomach. The fenestrated line is at the distal esophagus. Postoperative changes suggestive of prior Trevin-en-Y gastric bypass. The lung bases are clear. Partially visualized catheter within the SVC. IMPRESSION: Nasogastric tube terminates in the proximal stomach. The fenestrated line is at the distal esophagus. ACT 112: Negative or not required by law. Electronically signed by: Tom Causey M.D. 10/04/2023 9:27 AM Medications Administered Medication List Discontinued Medications Sodium Chloride (Nss) 500 mls @ 999 mls/hr IV .Q31M STA Stop: 10/04/23 08:46 Last Infusion: 10/04/23 08:59 Dose: Infused Documented By: Admin: 10/04/23 08:29 Dose: 999 mls/hr Documented By: JAYLAN Prochlorperazine (Compazine) 2 mls @ 1 mls/min IV ONE ONE Stop: 10/04/23 08:17 Last Admin: 10/04/23 08:29 Dose: 1 mls/min Documented By: JAYLAN Prochlorperazine 10 mg/ (Syringe) 10 mls @ 5 mls/min IV ONE ONE Stop: 10/04/23 10:30 Last Admin: 10/04/23 11:17 Dose: 5 mls/min Documented By: JOSR ECG Additional Comments: I have independently reviewed and interpreted patient's admitting EKG which revealed: 72 bpm, nsr, qtc 422ms COVID-19 Results Results COVID-19 Adm Lab Results: RBC 4.38 M/uL (4.70-6.10) L 10/04/23 WBC 7.38 K/ul (4.8-10.8) 10/04/23 Hgb 12.7 g/dl (14.0-18.0) L 10/04/23 Hct 37.6 % (42.0-52.0) L 10/04/23 Plt Count 300 K/uL (130-400) 10/04/23 Neutrophils (%) (Auto) 72.4 % 10/04/23 Lymphocytes (%) (Auto) 16.5 % 10/04/23 Monocytes # (Auto) 0.75 K/uL (0.11-0.59) H 10/04/23 Eosinophils # (Auto) 0.02 K/uL (0.00-0.50) 10/04/23 Immature Granulocyte % (Auto) 0.3 % 10/04/23 Neutrophils # (Auto) 5.35 K/uL (1.40-6.50) 10/04/23 Lymphocytes # (Auto) 1.22 K/uL (1.20-3.40) 10/04/23 Monocytes # (Auto) 0.75 K/uL (0.11-0.59) H 10/04/23 Eosinophils # (Auto) 0.02 K/uL (0.00-0.50) 10/04/23 Basophils # (Auto) 0.02 K/uL (0.00-0.20) 10/04/23 Immature Granulocyte # (Auto) 0.02 K/uL (0.01-0.20) 4 Na 135 mmol/L (136-145) L 10/04/23 K 4.3 mmol/L (3.5-5.1) 10/04/23 Cl 98 mmol/L (98-107) 10/04/23 Anion Gap 9 (3-11) 10/04/23 BUN 15 mg/dl (6-23) 10/04/23 Creatinine 0.53 mg/dl (0.6-1.4) L 10/04/23 BUN/Creatinine Ratio 28.3 (10-20) H 10/04/23 Glucose Level 96 mg/dl (70-99(Fasting)) 10/04/23 Ca 10.0 mg/dl (8.6-10.3) 10/04/23 Total Bilirubin 0.2 mg/dl (0.2-1.0) 10/04/23 AST/SGOT 15 U/L (13-39) 10/04/23 ALT/SGPT 17 U/L (7-52) 10/04/23 Alkaline Phosphatase 78 U/L (34-104) 10/04/23 Total Protein 7.8 gm/dl (6.0-8.3) 10/04/23 Albumin 4.5 gm/dl (3.4-5.0) 10/04/23 Globulin 3.3 gm/dl (2.5-4.0) 10/04/23 Albumin/Globulin Ratio 1.4 (0.9-2) 10/04/23 SARS-CoV-2, RNA, NAAT NEGATIVE (NEGATIVE) 10/04/23 Code Status & VTE Plan Code Status DNR/DNI Supervising Physician Co-Signing Physician Notes Attending addendum: The patient was seen and examined in emergency room in presence of the family member He has been complaining of intractable nausea and vomiting He is a status post gastrectomy for esophageal cancer and has a NG tube placed for feeding last week from [facility] He is in the emergency room has because he is having intractable nausea with vomiting and intolerance to any feeding Denies any chest or abdominal pain, palpitation, shortness of breath, fever or chills On examination Very anxious with nausea but no other apparent distress Hemodynamically stable Chest-clear to auscultate bilaterally Heart-S1, S2 regular Abdomen-soft, mildly tender in the epigastric, bowel sound present Extremity-negative for any edema His admission labs, imaging studies and EKG reviewed Has been having intractable nausea and vomiting Status post gastrectomy for C of the lower end of esophagus with NG tube placed Will continue with the current NGT feeding and symptomatic management of nausea and vomiting Agree with assessment and plan as outlined above by Shanna Miguel
--- NOTE | 2023-10-04 11:15 | Electrocardiogram Report ---
Test Reason : Blood Pressure : / mmHG Vent. Rate : 072 BPM Atrial Rate : 072 BPM P-R Int : 126 ms QRS Dur : 082 ms QT Int : 386 ms P-R-T Axes : 036 060 069 degrees QTc Int : 422 ms Normal sinus rhythm Normal ECG When compared with ECG of 24-SEP-2023 19:12, No significant change was found Confirmed by Jossue Kelley ([id number]) on 10/04/2023 11:15:35 AM Referred By: REFERRED SELF Confirmed By:Ronak Kelley
[2023-10-04] MEDS: PROCHLORPERAZINE 10 MG in SYRINGE 8 ML IV ONE (11:17)
--- OUTSIDE RECORDS SUMMARY | 2023-10-04 12:11 | External Medical Summary | Summary of Care ---
Author Name Unknown Organization [facility] Address [address] [place] [address] Phone [phone] Care Team Providers Care [employer] Leader Name Role Phone Thaddeus Solis MD Primary Care Provider [phone] Reason for Visit * Reason Onset Date Comments Advice 10/03/2023 Encounter Details Date Type Department Care Team (Late st Contact Info) Description 10/03/2023 Telephone General Surgery, [place] [address] [place] [address] Services, [facility] [address] [place] [address] Advice Allergies Active Allergy Reactions Criticality Noted Date Comments Carbamazepine Rash Medium 02/20/2018 documented as of this encounter (statuses as of 10/03/2023) Medications Medication Sig Dispensed Refills Start Date [...] TO ACCESSING. 30 g 1 04/13/2023 Active Additional Information Patient not taking.Reported on 09/22/2023 Dexamethasone 4 MG Oral Tablet (Decadron)Indicati ons:Malignant neoplasm of lower third of esophagus (HCC) Take 8mg twice a day x3 days starting the day before chemotherapy 48 Tablet 0 04/13/2023 Active Additional Information Patient not taking.Reported on 09/22/2023 Vitamin B-12 1000 MCG Oral Tablet (Cyanocobalamin)In dications:Malignan t neoplasm of lower third of esophagus (HCC) Take 1 Tablet by mouth in the morning. 30 Tablet 5 04/14/2023 Active Additional Information Patient not taking.Reported on 09/22/2023 Acetaminophen 160 MG/5ML Oral Liquid (Tylenol)Indicatio ns:Malignant [...] for Nausea. 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 42 mL 0 09/09/2023 Active Scopolamine 1 MG/3DAYS Transdermal Patch 72 Hour (Transderm Scop) Place 1 Patch over 72 hours topically on the skin every 3 days. 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 0 09/01/2023 Active Escitalopram Oxalate 10 MG Oral Tablet (Lexapro) 1/2 tab daily x 7 days then 1 tab daily at bedtime 30 Tablet 5 09/22/2023 Active Peptamen 1.5 Oral Liquid 55ml/hr via NJ tube continuously 62703 mL 2 09/28/2023 Active Aprepitant 40 MG Oral Capsule (Emend) Take 1 Capsule by mouth in the morning. Follow up with your primary care provider for further management. 30 Capsule 0 09/29/2023 Active Vitamin D (Cholecalciferol) 50 MCG (2000 UT) Oral Capsule Take 1 Capsule by mouth daily. Follow up with your primary care provider for further management. 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 Staging:Clinical stage from 04/14/2023:Stage III(cT3, cN1, cM0) - Signed by Meng Saeed MD on 04/14/2023 Pathologic: Unsigned Esophageal dysphagia 03/31/2023 Esophageal mass 03/31/2023 Trigeminal neuralgia 02/16/2018 Degeneration of cervical intervertebral disc Overview: C5-6 disease documented as of this encounter (statuses as of 10/03/2023) Immunizations Name Administration Dates Next Due TDAP (age 10 and older)(Boostrix) 08/29/2010 documented as of this encounter Social History Tobacco Use Types Packs/Day Years Used Date Smoking Tobacco: Former Cigars Smokeless Tobacco: Never Comments:Very infrequently Alcohol Use Standard Drinks/Week Comments Yes 5 (1 standard drink = 0.6 oz pur e alcohol) social PHQ-2 Answer Date Recorded PHQ-2 Score 0 06/18/2018 Hunger Vital Sign Answer Date Recorded Within the past 12 months, y ou worried that your food would run out before you got the money to buy more. Never true 09/07/19 Within the past 12 months, t he food you bought just didn't last and you didn't have money to get more. Never true 09/07/2023 Sex and Gender Information Value Date Recorded [...] you have serious difficulty h earing? No 09/26/2023 Are you blind or do you have serious difficulty seeing, even when wearing glasses? No 09/26/2023 Do you have serious difficul ty walking or climbing stairs? (5 years old or older) No 09/26/2023 Do you have difficulty dress ing or bathing? (5 years old or older) No 09/26/2023 Because of a physical, menta l, or emotional condition, do you have difficulty doing errands alone such as visiting a doctor s office or shopping? (15 years old or older) No 09/26/19 Cognitive Status Response Date of Assessm ent Because of a physical, menta l, or emotional condition, do you have serious difficulty concentrating, remembering, or making decisions? (5 years old or older) No 09/26/2023 documented as of this encounter Miscellaneous Notes * Telephone Encounter - Elizabet Bell S - No Ob/Or, GLADIS - 10/03/2023 7:38 AM EST juvenal calling to let Dr Edmonds know that Edward know he throwing up blood clots and alsowould like to talk about his labs that were done on 09.29 Thank you elizabet documented in this encounter Plan of Treatment Upcoming Encounters Date Type Department Care Team (Late st Contact Info) Description 10/05/2023 8:15 AM EST Office Visit Hematology/Oncology [facility] [place] [address] [facility] [place] [address] Cipriano Kuhn MD [address] [facility] [place] [address] 10/11/2023 11:40 AM EST Nutrition Services Nutrition & Weight Management, [place] [address], [place] [id number] Alyssa Varela RDN [address], [place] [id number] 10/17/2023 9:20 AM EST Office Visit General Surgery, [place] [address] [place] [address] Praveen Edmonds MD [address], [place] [id number] Scheduled Procedures Name Priority Associated Diagnoses Date/Ti me ESOPHAGOGASTRODUODENOSCOPY ( EGD), FLEXIBLE, TRANSORAL, DIAGNOSTIC Recall Malignant neoplasm of esophagus, unspecified location (HCC) Health Maintenance Due Date Last Done Comments Hepatitis B (1 of 3 - 19+ 3-dose series) 1983 Cologuard 2009 Fecal Occult Blood Test 2009 Sigmoidoscopy 2009 Zoster Vaccines (1 of 2) 2014 Depression Screening 12/21/2018 12/21/2017 Lipid Panel 04/19/2019 04/19/2014 DTaP,Tdap,and Td Vaccines (2 - Td or Tdap) 08/29/2020 08/29/2010 COVID-19 Vaccine (3 - 2022-2 4 season) 2023 04/10/2021, 03/19/2021 Influenza Vaccine (FLU shot) (#1) 2023 Colonoscopy [...] this encounter Medical Devices Implanted Type Area Eligibility Consultant Device Identifier Shelf Expiration Date Model / Serial / Lot Cement Hydroset Injectable 5cc - [id number] Implanted:Qty : 1 on 03/15/2018 by Ronak Khoury [place] [facility] [place]: Head JOHN 11/09/2019 [id number] / / [id number] Needle Fiducial 22ga - [id number] Implanted:Qty : 1 on 04/01/2023 by Karson Goddard [place] [facility]A: Esophagus GIVEN IMAGING [id number] 01/12/2025 DSF-22-01 / / [id number] Stent Wallf Esoph 23/45zvr57th - [id number] Implanted:Qty : 1 on 04/01/2023 by Karson Goddard MD [place] [facility] [place]/A: Esophagus [employer] : ENDOSCOPY [id number] 09/09/2024 [id number] / / [id number] Power Port 8fr Sngl Lumen Plas - [id number] Implanted:Qty : 1 on 04/19/2023 by Thaddeus Brown DO at [facility] Right: Chest CR BARD : PERIPHERAL VASCULAR [id number] 06/14/2024 [id number] / / [id number] documented as of this encounter Advance Directives Latest Code Status on File Code Status Date Activated Date Inactivated Comments Full Code 09/26/2023 11:35 PM 09/29/2023 5:11 PM Question Answer Comments Discussion of Advance Directives occurred with: Not Discussed due to patient's condition Code Status History Code Status Date Activated Date Inactivated Comments Full Code 09/02/2023 4:06 PM 09/05/2023 6:42 PM Question Answer Comments Discussion of Advance Directives occurred with: Patient Full Code 08/02/2023 3:49 PM 08/08/2023 2:04 PM Thi s order reflects the patients wishes and were consensually agreed upon. Question Answer Comments Discussion of Advance Directives occurred with: Not Discussed due to patient's condition Does the patient have a Living Will? No Full Code 08/02/2023 11:11 AM 08/02/2023 3:49 [...] the patient have Health Care Power of Structural Test Engineer? No Care Teams [employer] Leader Relationship Specialty Start Date End Date Thaddeus Solis MD [address] [facility] [place] [id number] PCP - General Family Medicine 09/12/23 documented as of this encounter
--- OUTSIDE RECORDS SUMMARY | 2023-10-04 12:11 | External Medical Summary | Summary of Care ---
Author Name Unknown Organization [facility] Address [address] [place] [address] Phone [phone] Care Team Providers Care Substance Abuse Specialist Name Role Phone Thaddeus Solis MD Primary Care Provider [phone] Reason for Visit * Reason Onset Date Comments Advice 10/03/2023 Encounter Details Date Type Department Care Team (Late st Contact Info) Description 10/03/2023 Telephone General Surgery, [place] [address] [place] [address] Services, [facility] [address] [place] [address] Advice Allergies Active Allergy Reactions Criticality Noted [...] Oral Liquid 55ml/hr via [place] tube continuously 81943 mL 2 09/28/2023 Active Aprepitant 40 MG [...] Telephone Encounter - Livier Hong RN - 10/03/2023 4:17 PM EST Call to [facility]. Left message. Prescription for Emend was sent to [facility] when patient was discharged on 09/29/23. I called and spoke to pharmacy and was told that it was not filled as the copay would have been around $150 so it would have to go through insurance. Do not see clinic was notified of need for follow up prior to patient message. On review now, looks like prescription has been forwarded and is being followed up by PCP. Will follow up tomorrow to check on progress. * Telephone Encounter - Elizabet Bell - No Ob/Or, GLADIS - 10/03/2023 7:38 [...] 10/05/2023 8:15 AM EST Office Visit Hematology/Oncology [facility] [address] [facility] [place] [phone] Cipriano Kuhn MD [address] [facility] [place] [address] 10/11/2023 11:40 AM EST Nutrition Services Nutrition & Weight Management, [place] [address] [place] [address] Alyssa Varela RDN [address] [place], [place] [phone] 10/17/2023 9:20 AM EST Office Visit General Surgery, [place] [address] [place] [address] Praveen Edmonds MD [address] [place], [place] [phone] Scheduled Procedures Name Priority Associated Diagnoses Date/Ti [...] this encounter Medical Devices Implanted Type Area Utility Driver Device Identifier Shelf Expiration Date Model / Serial / Lot Cement Hydroset Injectable 5cc - [id number] Implanted:Qty : 1 on 03/15/2018 by Ronak Khoury MD at [place] [facility] [place] Left: Head JOHN 11/09/2019 [id number] / / [id number] Needle Fiducial 22ga - [id number] Implanted:Qty : 1 on 04/01/2023 by Karson Goddard MD at [place]OSCOPY [facility] [place] N/A: Esophagus GIVEN IMAGING [id number] 01/12/2025 DSF-22-01 / / [id number] Stent Wallf Esoph 23/[id number] - [id number] Implanted:Qty : 1 on 04/01/2023 by Karson Goddard MD at ENDOSCOPY [facility] [place] N/A: Esophagus [employer] : ENDOSCOPY [id number] 09/09/2024 [id number] / / [id number] Power Port 8fr Sngl Lumen Plas - [id number] Implanted:Qty : 1 on 04/19/2023 by Thaddeus Brown, DO at OR [facility] Right: Chest CR BARD : PERIPHERAL VASCULAR [id number] 06/14/2024 [id number] / / [id number] documented as of this encounter Advance Directives [...] the patient have Health Care Power of Termination Clerk? No Care Teams Substance Abuse Specialist Relationship Specialty Start Date End Date Thaddeus Solis MD [address] [facility] [place] [address] PCP - General Family Medicine 09/12/23 documented as of this encounter
--- OUTSIDE RECORDS SUMMARY | 2023-10-04 12:11 | External Medical Summary | Summary of Care ---
Author Name Unknown Organization [facility] Address [address] [place] [address] Phone [phone] Care Team Providers Care Answering Service Agent Name Role Phone Thaddeus Solis MD Primary Care Provider [phone] Reason for Visit * Reason Onset Date Comments Endoscopy Recall 10/03/2023 Encounter Details Date Type Department Care Team (Late st Contact Info) Description 10/03/2023 Telephone Gastroenterology, [facility] [address] [facility] [place] [address] Homar Blair MD [address] [facility] [place] [address] Endoscopy Recall Allergies Active Allergy Reactions Criticality Noted Date [...] Oral Liquid 55ml/hr via [place] tube continuously 89335 mL 2 09/28/2023 Active Aprepitant 40 MG Oral Capsule (Emend) Take 1 Capsule by mouth in the morning. Follow up with your primary care provider for further management. 30 Capsule 0 09/29/2023 Active Vitamin D (Cholecalciferol) 50 MCG (1999) Oral Capsule Take 1 Capsule by mouth [...] encounter Miscellaneous Notes * Telephone Encounter - Rosemarie Ch OSA - 10/03/2023 4:[address] on recall. * Telephone Encounter - Rosemarie Ch OSA - 10/03/2023 4:47 PM EST ----- Message from Homar Blair MD sent at 10/03/2023 12:29 PM EST ----- Should have repeat colon in 2025, EGD was performed this year Homar Blair MD ----- Message ----- From: Ronald Epstein OSA Sent: 10/03/2023 11:36 AM EST To: Homar Blair MD Pt had EGD/colon on 03/30. Please review and advise on colon recall. Ronald Arias documented in this encounter Plan of Treatment Upcoming Encounters Date Type Department Care Team (Late st Contact Info) Description 10/05/2023 8:15 AM EST Office Visit Hematology/Oncology [address] [phone] Cipriano Kuhn MD [address] [place] [address] 10/11/2023 11:40 AM EST Nutrition Services Nutrition & Weight Management, [address] [address] Alyssa Varela RDN [facility] [place] [address] 10/17/2023 9:20 AM EST Office Visit General Surgery, [address] [address] Praveen Edmonds MD [facility] [address] Scheduled Procedures Name Priority Associated Diagnoses Date/Ti me COLONOSCOPY FLEXIBLE PROXIMAL DIAGNOSTIC Recall History of colonic polyps ESOPHAGOGASTRODUODENOSCOPY ( EGD), FLEXIBLE, TRANSORAL, DIAGNOSTIC Recall [...] this encounter Medical Devices Implanted Type Area Champion Of Sustainable Design Device Identifier Shelf Expiration Date Model / Serial / Lot Cement Hydroset Injectable 5cc - [id number] Implanted:Qty : 1 on 03/15/2018 by Ronak Khoury MD at [place] [facility] Left: Head JOHN 11/09/2019 [id number] / / [id number] Needle Fiducial 22ga - [id number] Implanted:Qty : 1 on 04/01/2023 by Karson Goddard MD at ENDOSCOPY [facility] N/A: Esophagus GIVEN IMAGING [id number] 01/12/2025 DSF-22-01 / / [id number] Stent Wallf Esoph 23/[id number] - [id number] Implanted:Qty : 1 on 04/01/2023 by Karson Goddard MD at ENDOSCOPY [facility] N/A: Esophagus [employer] : ENDOSCOPY [id number] 09/09/2024 [id number] / / [id number] Power Port 8fr Sngl Lumen Plas - [id number] Implanted:Qty : 1 on 04/19/2023 by Thaddeus Brown DO at OR [facility] Right: Chest CR BARD : PERIPHERAL VASCULAR [id number] 06/14/2024 [id number] / / [id number] documented as of this encounter Advance Directives [...] the patient have Health Care Power of Pleasure Craft Sailor? No Care Teams Answering Service Agent Relationship Specialty Start Date End Date Thaddeus Solis MD [address] [place] [address] PCP - General Family Medicine 09/12/23 documented as of this encounter
--- OUTSIDE RECORDS SUMMARY | 2023-10-04 12:11 | External Medical Summary | Summary of Care ---
Author Name Unknown Organization [facility] Address [address] [place] [address] Phone [phone] Care Team Providers Care Application Architect Name Role Phone Thaddeus Solis MD Primary Care Provider [phone] Reason for Visit * Reason Onset Date Comments Advice 10/03/2023 Encounter Details Date Type Department Care Team (Late st Contact Info) Description 10/03/2023 Telephone General Surgery, [place] [address] [place] [address] Services, [facility] [address] [place] [address] Advice Allergies Active Allergy Reactions Criticality Noted [...] Oral Liquid 55ml/hr via [place] tube continuously 89239 mL 2 09/28/2023 Active Aprepitant 40 MG [...] about his labs that were done on . Thank you elizabet documented in this encounter Plan of Treatment Upcoming Encounters Date Type Department Care Team (Late st Contact Info) Description 10/05/2023 8:15 AM EST Office Visit Hematology/Oncology [facility] [place] [address] [facility] [place] [phone] Cipriano Kuhn MD [address] [facility] [place] [address] 10/11/2023 11:40 AM EST Nutrition Services Nutrition & Weight Management, [place] [address] [place], [place] [phone] Alyssa Varela RDN [address] [place], [place] [phone] 10/17/2023 9:20 AM EST Office Visit General Surgery, [place] [address] [place] [address] Praveen Edmonds MD [address] [place] [address] Scheduled Procedures Name Priority Associated Diagnoses Date/Ti [...] this encounter Medical Devices Implanted Type Area Yardmaster Device Identifier Shelf Expiration Date Model / Serial / Lot Cement Hydroset Injectable 5cc - [id number] Implanted:Qty : 1 on 03/15/2018 by Ronak Khoury MD at OR [facility] Left: Head JOHN 11/09/2019 [id number] / / [id number] Needle Fiducial 22ga - [id number] Implanted:Qty : 1 on 04/01/2023 by Karson Goddard MD at ENDOSCOPY [facility] N/A: Esophagus GIVEN IMAGING [id number] 01/12/2025 DSF-22-01 / / [id number] Stent Wallf Esoph 23/[id number] - [id number] Implanted:Qty : 1 on 04/01/2023 by Karson Goddard MD at ENDOSCOPY [facility] N/A: Esophagus [employer] : ENDOSCOPY [id number] 09/09/2024 [id number] / / [id number] Power Port 8fr Sngl Lumen Plas - [id number] Implanted:Qty : 1 on 04/19/2023 by Thaddeus rBown DO at OR [facility] Right: Chest CR BARD : PERIPHERAL VASCULAR [id number] 06/14/2024 [id number] / / [id number] documented as of this encounter Advance Directives [...] the patient have Health Care Power of Surgery Consultant? No Care Teams Application Architect Relationship Specialty Start Date End Date Thaddeus Solis MD [address] [facility] [place] [address] PCP - General Family Medicine 09/12/23 documented as of this encounter
--- OUTSIDE RECORDS SUMMARY | 2023-10-04 12:11 | External Medical Summary | Summary of Care ---
Author Name Unknown Organization [facility] Address [address] [place] [address] Phone [phone] Care Team Providers Care Property And Casualty Insurance Agent Name Role Phone Thaddeus Solis MD Primary Care Provider [phone] Reason for Visit * Reason Onset Date Comments Medication Question 10/03/2023 Encounter Details Date Type Department Care Team (Late st Contact Info) Description 10/03/2023 Telephone [facility] [address] [place] [address] hTaddeus Solis MD [address] [place] [address] Medication Question Allergies Active Allergy Reactions Criticality Noted Date Comments Carbamazepine Rash Medium 02/20/2018 documented as of this encounter (statuses as of 10/03/2023) Medications Medication Sig Dispensed Refills Start Date End Date Status Thiamine HCl 100 MG Oral Tablet (vitamin B-1) Take 1 Tablet by mouth daily. 0 Active Lidocaine-Priloca ine 2.5-2.5 % External Cream (Emla)Indications :Malignant neoplasm of lower third of esophagus (HCC) APPLY TO SKIN OVER MEDIPORT & COVER 1HR PRIOR TO ACCESSING. 30 g 1 04/13/2023 Active Additional Information Patient not taking.Reported on 09/22/2023 Dexamethasone 4 MG Oral Tablet (Decadron)Indicat ions:Malignant neoplasm of lower third of esophagus (HCC) Take 8mg twice a day x3 days starting the day before chemotherapy 48 Tablet 0 04/13/2023 Active Additional Information Patient not taking.Reported on 09/22/2023 Vitamin B-12 1000 MCG Oral Tablet (Cyanocobalamin)I ndications:Malign ant neoplasm of lower third of esophagus (HCC) Take 1 Tablet by mouth in the morning. 30 Tablet 5 04/14/2023 Active Additional Information Patient not taking.Reported on 09/22/2023 Acetaminophen 160 MG/5ML Oral Liquid (Tylenol)Indicati ons:Malignant neoplasm of lower third of esophagus (HCC) Take 20.3 mL by mouth every 4 hours as needed for Pain, Breakthrough. 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 Follow up with your primary care provider for further management. 30 Capsule 0 09/29/2023 Active Vitamin D (Cholecalciferol) 50 MCG (1999 [place]) Oral Capsule Take 1 Capsule by mouth daily. Follow up with your primary care provider for further management. 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 30 Tablet 2 10/03/2023 Active Prochlorperazine Maleate 10 MG Oral Tablet (Compazine)Indica tions:Malignant neoplasm of lower third of esophagus (HCC) Take 1 Tablet by mouth every 6 hours as needed for Nausea. 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 30 Tablet 2 06/29/2023 4 Discontinue d(Refill) Scopolamine 1 MG/3DAYS Transdermal Patch 72 Hour (Transderm Scop) Place 1 Patch over 72 hours topically on the skin every 3 days. 10 Patch 12 09/15/2023 4 Discontinue d(Refill) Pantoprazole Sodium 40 MG Oral Tablet Delayed Release (Protonix) 1 Tablet. 0 09/01/2023 4 Discontinue d(Refill) documented as of this encounter [...] money to buy more. Never true 09/07/19 24 Within the past 12 months, t he [...] encounter Miscellaneous Notes * Telephone Encounter - Thaddeus Solis MD - 10/03/2023 5:29 PM EST Done. * Telephone Encounter - Katy Schmid, machine sewer - 10/03/2023 2:53 PM EST Pt calling to request a refill on scopalime patches, ondansetran and compazine, pantoprazole .Medication was last prescribed by surgery but patient is asking if PCP can take over the medication. Please advise if this is appropriate and send to [id number] if agreeable. Pt advised to restart pantoprazole 40 mg one tablet daily. Thank You, Katy Schmid [facility] Safety And Health Manager III Centralized Clinical Pharmacy Services ([facility]) (Formerly Telepharmacy) 10/03/2023, 2:53 PM documented in this encounter Plan of Treatment Upcoming Encounters Date Type Department Care Team (Late st Contact Info) Description 10/05/2023 8:15 AM EST Office Visit [facility]ematology/On[facility] [address] [place] [address] Cipriano Kuhn MD [address] [facility] [place] [address] 10/11/2023 11:40 AM EST Nutrition Services Nutrition & Weight Management, [place] [address] [place] [address] Alyssa Varela RDN [address] [place] [address] 10/17/2023 9:20 AM EST Office Visit General Surgery, [place] [address] [place], [place] [address] Praveen Edmonds MD [address] [place], [place] [phone] Scheduled Procedures Name Priority Associated Diagnoses Date/Ti [...] this encounter Medical Devices Implanted Type Area Variety Lathe Operator Device Identifier Shelf Expiration Date Model / Serial / Lot Cement Hydroset Injectable 5cc - [id number] Implanted:Qty : 1 on 03/15/2018 by Ronak Khoury MD at [place] [facility] Left: Head JOHN 11/09/2019 [id number] / / [id number] Needle Fiducial 22ga - [id number] Implanted:Qty : 1 on 04/01/2023 by Karson Goddard MD at [place]OSCOPY [facility] N/A: Esophagus GIVEN IMAGING [id number] 01/12/2025 DSF-22-01 / / [id number] Stent Wallf Esoph 23/[id number] - [id number] Implanted:Qty : 1 on 04/01/2023 by Karson Goddard MD at ENDOSCOPY [facility] N/A: Esophagus [employer] : ENDOSCOPY [id number] 09/09/2024 [id number] / / [id number] Power Port 8fr Sngl Lumen Plas - [id number] Implanted:Qty : 1 on 04/19/2023 by Thaddeus Brown DO at OR [facility] Right: Chest CR BARD : PERIPHERAL VASCULAR [id number] 06/14/2024 [id number] / / [id number] documented as of this encounter Visit Diagnoses [...] the patient have Health Care Power of Insole Taper? No Care Teams Property And Casualty Insurance Agent Relationship Specialty Start Date End Date Thaddeus Solis MD [address] [facility] [place] [address] PCP - General Family Medicine 09/12/23 documented as of this encounter
--- OUTSIDE RECORDS SUMMARY | 2023-10-04 12:11 | External Medical Summary | Summary of Care ---
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 42 mL 0 3 08/26/19 24 Discontinued(Ref ill) Enoxaparin Sodium 40 MG/0.4ML Injection Solution Prefilled Syringe (Lovenox) Inject 40 mg under the skin in the morning. 11.2 mL 0 3 09/05/19 24 Discontinued oxyCODONE HCl 5 MG Oral Tablet (Oxy IR) Take 1 Tablet by mouth every 4 hours as needed for Pain, Severe. 12 Tablet 0 12/25/202 3 09/05/19 24 Discontinued documented as of this encounter (statuses as of 10/01/2023) Active Problems Problem Noted Date Diagnosed Date [...] as of this encounter (statuses as of 10/01/2023) Immunizations Name Administration Dates Next Due TDAP [...] 10/05/2023 8:15 AM EST Office Visit Hematology/Oncology [facility] [address] [facility] [place] [address] Cipriano Kuhn MD [address] [place] [address] 10/11/2023 11:40 AM EST Nutrition Services Nutrition & Weight Management, [place] [address] [place] [address] Alyssa Varela RDN [address] [place] [address] 10/17/2023 9:20 AM EST Office Visit General Surgery, [place] [address] [place], [place] [phone] Praveen Edmonds MD [address] [place], [place] [phone] Scheduled Procedures Name Priority Associated Diagnoses Date/Ti [...] this encounter Medical Devices Implanted Type Area Wireless Sales Manager Device Identifier Shelf Expiration Date Model / Serial / Lot Cement Hydroset Injectable 5cc - [id number] Implanted:Qty : 1 on 03/15/2018 by Ronak Khoury MD [place] [facility] Left: Head JOHN 11/09/2019 [id number] / / [id number] Needle Fiducial 22ga - [id number] Implanted:Qty : 1 on 04/01/2023 by Karson Goddard MD at [place] [facility] N/A: Esophagus GIVEN IMAGING [id number] 01/12/2025 DSF-22-01 / / [id number] Stent Wallf Esoph 23/[id number] - [id number] Implanted:Qty : 1 on 04/01/2023 by Karson Goddard MD at [place]OSCOPY [facility] N/A: Esophagus [employer] : ENDOSCOPY [id number] 09/09/2024 [id number] / / [id number] Power Port 8fr Sngl Lumen Plas - [id number] Implanted:Qty : 1 on 04/19/2023 by Thaddeus Brown DO at OR [facility] Right: Chest CR BARD : PERIPHERAL VASCULAR [id number] 06/14/2024 [id number] / / [id number] documented as of this encounter Visit Diagnoses Diagnosis Chemotherapy induced nausea and vomiting- Primary Nausea with vomiting Dehydration 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 Given 08/12/2023 4:38 PM EST 500 Units NSS infusion FOR HYDRATION Intravenous, at 500 mL/hr Administer over 2 Hours, ONCE, 1 dose, On Tue08/12/23 at 1600 Start Infusion 08/12/2023 2:38 PM EST 1,000 mL 500 mL/hr sodium chloride 0.9 % flush central line 10 mL 10 mL, IV Push, PRN Other, IV Flush, Starting on Tue08/12/23 at 1447, Until Tue08/12/23 at 2044, For 24 hours, Do not flush if lock, PICC, or central line not in place; IV infusing or unable to flush. Given 08/12/2023 4:38 PM EST 10 mL documented in this [...] the patient have Health Care Power of Limb Driver? No
--- OUTSIDE RECORDS SUMMARY | 2023-10-04 12:11 | External Medical Summary | Summary of Care ---
Author Name Unknown Organization [facility] Address [address] [place] [address] Phone [phone] Care Team Providers Care Checker/Stocker Name Role Phone Thaddeus Solis MD Primary Care Provider [phone] Reason for Visit * Reason Onset Date Comments Advice 10/03/2023 Encounter Details Date Type Department Care Team (Late st Contact Info) Description 10/03/2023 Telephone General Surgery, [place] [address] [place] [address] Services, [facility] [address] [place] [address] Advice Allergies Active Allergy Reactions Criticality Noted [...] Oral Liquid 55ml/hr via [place] tube continuously 66743 mL 2 09/28/2023 Active Aprepitant 40 MG [...] AM EST Office Visit Hematology/Oncology [facility] Flores [place] [address] [facility] [place] [phone] Cipriano Kuhn MD [address] [facility] [place] [address] 10/11/2023 11:40 AM EST Nutrition Services Nutrition & Weight Management, [place] [address], [place] [phone] Alyssa Varela RDN [address] [place], [place] [id number] 10/17/2023 9:20 AM EST Office Visit General Surgery, [place] [address] [place] [address] Praveen Edmonds MD [address] [place] [address] Scheduled Procedures Name Priority Associated [...] this encounter Medical Devices Implanted Type Area Surface Grinding Machine Hand Device Identifier Shelf Expiration Date Model / Serial / Lot Cement Hydroset Injectable 5cc - [id number] Implanted:Qty : 1 on 03/15/2018 by Ronak Khoury MD at OR [facility] [place] Left: Head JOHN 11/09/2019 [id number] / / [id number] Needle Fiducial 22ga - [id number] Implanted:Qty : 1 on 04/01/2023 by Karson Goddard MD at ENDOSCOPY [facility] [place] N/A: Esophagus GIVEN IMAGING [id number] 01/12/2025 DSF-22-01 / / [id number] Stent Wallf Esoph 23/[id number] - [id number] Implanted:Qty : 1 on 04/01/2023 by Karson Goddard MD at ENDOSCOPY [facility] [place] N/A: Esophagus [employer] : ENDOSCOPY [id number] 09/09/2024 [id number] / / [id number] Power Port 8fr Sngl Lumen Plas - [id number] Implanted:Qty : 1 on 04/19/2023 by Thaddeus Brown DO at OR [facility] Right: Chest CR BARD : PERIPHERAL VASCULAR [id number] 06/14/2024 [id number] / / [id number] documented as of this encounter Advance Directives [...] the patient have Health Care Power of Sea Foam Kiss Maker? No Care Teams Checker/Stocker Relationship Specialty Start Date End Date Thaddeus Solis MD [address] [facility] [place] [address] PCP - General Family Medicine 09/12/23 documented as of this encounter
--- OUTSIDE RECORDS SUMMARY | 2023-10-04 12:12 | External Medical Summary | Summary of Care ---
Author Name Unknown Organization [facility] Address [address] [place] [address] Phone [phone] Care Team Providers Care Seed Expert Name Role Phone Unavailable Primary Care Provider Unavailabl e Reason for Visit * Reason Comments IV Therapy Hydration Encounter Details Date Type Department Care Team (Latest Contact Info) Description 08/12/2023 2:30 PM EST Hem/Onc Treatment Hematology/Oncology Treatment, [place] [address] [place] [address] Sandra, Chair [address] Hem On[address] [place] [address] Chemotherapy induced nausea and vomiting*; Dehydration; Malignant [...] 10/05/2023 8:15 AM EST Office Visit Hematology/Oncology [facility] [address] [place] [address] Cipriano Kuhn MD [address] [place] [address] 10/11/2023 11:40 AM EST Nutrition Services Nutrition & Weight Management, [place] [address] [place] [address] Alyssa Varela RDN [address] [place] [address] 10/17/2023 9:20 AM EST Office Visit General Surgery, [place] [address] [place], [place] [phone] Praveen Edmonds MD [address] [place], [place] [phone] Scheduled Procedures Name Priority Associated Diagnoses Date/Ti [...] this encounter Medical Devices Implanted Type Area Utilities Estimator And Drafter Device Identifier Shelf Expiration Date Model / Serial / Lot Cement Hydroset Injectable 5cc - [id number] Implanted:Qty : 1 on 03/15/2018 by Ronak Khoury MD at OR [facility] [place] Left: Head JOHN 11/09/2019 [id number] / / [id number] Needle Fiducial 22ga - [id number] Implanted:Qty : 1 on 04/01/2023 by Karson Goddard MD at ENDOSCOPY [facility] [place] N/A: Esophagus GIVEN IMAGING [id number] 01/12/2025 DSF-22-01 / / [id number] Stent Wallf Esoph 23/14gmv18fj - [id number] Implanted:Qty : 1 on 04/01/2023 by Karson Goddard MD at ENDOSCOPY [facility] N/A: Esophagus [employer] : ENDOSCOPY [id number] 09/09/2024 [id number] / / [id number] Power Port 8fr Sngl Lumen Plas - [id number] Implanted:Qty : 1 on 04/19/2023 by Thaddeus Brown DO at OR [facility] Right: Chest CR BARD : PERIPHERAL VASCULAR [id number] 06/14/2024 [id number] / / [id number] documented as of this encounter Visit Diagnoses [...] the patient have Health Care Power of Coffee Bar Attendant? No
--- OUTSIDE RECORDS SUMMARY | 2023-10-04 12:12 | External Medical Summary ---
Author Name Unknown Address Unknown Organization K01:[facility] [address] [place] [address] Laboratory Report Ordering Provider Test Date Status JOETHEO 09/29/2023 07:36:00 Final Observation Date Value Abnormality Reference (Units ) Status Phosphate 09/29/2023 07:36:00 2.6 2.5-4.8 (m g/dL) Final Performing Location [facility] - [address] [place] [address]
--- OUTSIDE RECORDS SUMMARY | 2023-10-04 12:12 | External Medical Summary | Summary of Care ---
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) Allergies Active Allergy Reactions Criticality Noted Date Comments Carbamazepine Rash Medium 02/20/2018 documented as of this encounter (statuses as of 09/30/2023) Medications Medication Sig Dispensed Refills Start Date [...] as of this encounter (statuses as of 09/30/2023) Active Problems Problem Noted Date Diagnosed Date [...] as of this encounter (statuses as of 09/30/2023) Immunizations Name Administration Dates Next Due TDAP [...] 10/05/2023 8:15 AM EST Office Visit Hematology/Oncology [facility] [address] [facility] [place] [address] Cipriano Kuhn MD [address] [place] [address] 10/11/2023 11:40 AM EST Nutrition Services Nutrition & Weight Management, [place] [address] [place] [address] Alyssa Varela RDN [address] [place] [address] 10/17/2023 9:20 AM EST Office Visit General Surgery, [place] [address] [place], [place] [phone] Praveen Edmonds MD [address] [place], [place] [phone] Scheduled Procedures Name Priority Associated Diagnoses Date/Ti me ESOPHAGOGASTRODUODENOSCOPY ( EGD), FLEXIBLE, TRANSORAL, DIAGNOSTIC Recall Malignant neoplasm of esophagus, unspecified location (HCC) Health Maintenance Due Date Last Done Comments Hepatitis B (1 of 3 - 3-dose series) 1964 Cologuard 2009 Fecal Occult Blood Test [...] this encounter Medical Devices Implanted Type Area Chemistry Account Manager Device Identifier Shelf Expiration Date Model / Serial / Lot Cement Hydroset Injectable 5cc - [id number] Implanted:Qty : 1 on 03/15/2018 by Ronak Khoury MD at OR [facility] [place] Left: Head JOHN 11/09/2019 [id number] / / [id number] Needle Fiducial 22ga - [id number] Implanted:Qty : 1 on 04/01/2023 by Karson Goddard MD at ENDOSCOPY [facility] [place] N/A: Esophagus GIVEN IMAGING [id number] 01/12/2025 DSF-22-01 / / [id number] Stent Wallf Esoph 23/42itb08vw - [id number] Implanted:Qty : 1 on 04/01/2023 by Karson Goddard MD at ENDOSCOPY [facility] [place] N/A: Esophagus [employer] : ENDOSCOPY [id number] 09/09/2024 [id number] / / [id number] Power Port 8fr Sngl Lumen Plas - [id number] Implanted:Qty : 1 on 04/19/2023 by Thaddeus Brown DO at OR [facility] Right: Chest CR BARD : PERIPHERAL VASCULAR [id number] 06/14/2024 [id number] / / [id number] documented as of this encounter Visit Diagnoses [...] the patient have Health Care Power of Operations Leader? No
--- OUTSIDE RECORDS SUMMARY | 2023-10-04 12:12 | External Medical Summary | Summary of Care ---
Author Name Unknown Organization [facility] Address [address] [place] [address] Phone [phone] Care Team Providers Care Hair Spinner Name Role Phone Ophelia Solis MD Primary Care Provider [phone] Reason for Visit * Auth/Cert Specialty Diagnoses / Procedures Referred By Chary angeles Referred To Contact Diagnoses Weakness Weakness, nausea Referral ID Status Reason Start Date Expiration Date Visits Re quested Visits Authorized [id number] Encounter Details Date Type Department Care Team (Latest Contact Info) Description 09/26/2023 10:01 PM EST - 09/29/2023 1:11 PM EST [id number] [address] [place] [address] Praveen Edmonds MD [address] [place] [address] Upper GI Endoscopy Discharge Disposition: Home with Services Allergies Active Allergy Reactions Criticality Noted Date [...] TO ACCESSING. 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 30 Tablet 5 3 Active Additional Information Patient not taking.Reported on 09/22/2023 Acetaminophen 160 MG/5ML Oral Liquid (Tylenol)Indica tions:Malignant [...] for Nausea. 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 42 mL 0 4 Active Scopolamine 1 MG/3DAYS Transdermal Patch 72 Hour (Transderm Scop) Place 1 Patch over 72 hours topically on the skin every 3 days. 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 0 4 Active Escitalopram Oxalate 10 MG Oral Tablet (Lexapro) 1/2 tab daily x 7 days then 1 tab daily at bedtime 30 Tablet 5 4 Active Peptamen 1.5 Oral Liquid 55ml/hr via NJ tube continuously 00042 mL 2 4 Active Aprepitant 40 MG Oral Capsule (Emend) Take 1 Capsule by mouth in the morning. Follow up with your primary care provider for further management. 30 Capsule 0 4 Active Vitamin D (Cholecalcifero l) 50 MCG (1999 UT) Oral Capsule Take 1 Capsule by mouth daily. Follow up with your primary care provider for further management. 30 Capsule 0 4 Active Amoxicillin-Pot Clavulanate 875-125 MG Oral Tablet (Augmentin) Take 1 Tablet by mouth in the morning and 1 Tablet before bedtime. Do all this for 11 days. 22 Tablet 0 4 09/29/19 24 Discontinued Aprepitant 40 MG Oral Capsule (Emend) Take 1 Capsule by mouth in the morning. 30 Capsule 0 4 09/29/19 24 Discontinued(Ref ill) Peptamen 1.5 Oral Liquid 55ml/hr via NJ tube continuously 13560 mL 2 4 09/28/19 24 Discontinued(Ref ill) documented as of this encounter (statuses as of 09/30/2023) Active Problems Problem Noted Date Diagnosed Date On tube feeding diet 09/28/2023 Moderate protein-calorie malnutrition 09/27/2023 Nausea 09/27/2023 Preop examination 09/16/2023 Postprocedural intraabdominal abscess 09/03/2023 History of esophageal cancer 08/12/2023 Hypokalemia 08/05/2023 Hyponatremia 08/04/2023 Hypophosphatemia 08/04/2023 Vitamin D insufficiency 08/04/2023 Iron deficiency anemia 08/04/2023 On peripheral parenteral nutrition (ppn) 12/20/2 023 Unintentional weight loss 08/03/2023 Status post [...] Smoking Tobacco: Former Cigars Smokeless Tobacco: Never Tobacco Cessation:Counseling Given: Not Answered Comments:Very infrequently Alcohol Use Standard Drinks/Week Comments [...] Sign Reading Time Taken Comments Blood Pressure 121/80 09/29/2023 10:56 AM EST Pulse 70 09/29/2023 10:56 AM EST Temperature 36.5 C (97.7 F) 09/29/2023 10:[address] Respiratory Rate 16 09/29/2023 10:56 AM EST Oxygen Saturation 98% 09/29/2023 10:56 AM EST Inhaled Oxygen Concentration - - Weight 57.6 kg (127 lb) 09/26/2023 10:05 PM EST Height 180.3 cm (5' 11") 09/26/2023 10:05 PM EST Body Mass Index 17.71 09/26/2023 10:05 PM EST documented in this encounter Functional [...] No 09/26/2023 documented as of this encounter Discharge Summaries * Nataly Garcia MD - 09/29/2023 8:49 AM EST [address] [address] Admission Date: 09/26/2023 Discharge Date: 09/29/2023 DISCHARGE DIAGNOSES: Active Hospital Problems Diagnosis *Principal Diagnosis - Severe malnutrition (HCC) On tube feeding diet Moderate protein-calorie malnutrition (HCC) Nausea 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 Other Significant Diagnoses: none CONDITION ON DISCHARGE: stable Cognition: normal DISPOSITION ON DISCHARGE: home FOLLOW-UP: Future Appointments Appt Date/Time Provider Department 10/05/2023 8:15 AM Cipriano Kunh MD Hematology/Oncology [facility] 10/11/2023 11:40 AM Alyssa Varela RDN [facility]/17/2023 9:20 AM Praveen Edmonds [facility] Outpatient testing already scheduled: N/A Outpatient testing that needs to be arranged: N/A Inpatient test results pending: N/A MEDICATIONS ON DISCHARGE: MEDICATION UPDATES AT DISCHARGE START taking these medications INSTRUCTIONS high calorie peptide-based liquid 55ml/hr via NJ tube continuously Vitamin D (Cholecalciferol) 50 MCG (1999 UT) Caps Take 1 Capsule by mouth daily. Follow up with your primary care provider for further management. CHANGE how you take these medications INSTRUCTIONS Aprepitant 40 MG Caps Commonly known as: Emend What changed: additional instructions Take 1 Capsule by mouth in the morning. Follow up with your primary care provider for further management.. CONTINUE taking these medications INSTRUCTIONS Acetaminophen 160 MG/5ML oral liquid Commonly known as: Tylenol Take 20.3 mL by mouth every 4 hours as needed for Pain, Breakthrough. escitalopram 10 MG Tablet Commonly known as: Lexapro 1/2 tab daily x 7 days then 1 tab daily at bedtime LORAzepam 0.5 MG Tablet Commonly known as: Ativan TAKE ONE TABLET BY MOUTH EVERY 6 HOURS NEEDED FOR ANXIETY OR SLEEP morphine Sulfate CONCentrated 20 mg/ml concentrated solution Take 0.25 mL by mouth every 4 hours as needed for Pain, Moderate. ondansetron 8 MG Tablet Commonly known as: Zofran Take 1 Tablet by mouth every 8 hours as needed for Nausea. prochlorperazine 10 MG Tablet Commonly known as: Compazine Take 1 Tablet by mouth every 6 hours as needed for Nausea. Scopolamine 1.5 MG patch Commonly known as: Transderm Scop Place 1 Patch over 72 hours topically on the skin every 3 days. STOP taking these medications amoxicillin-clavulanate 875-125 MG per Tablet Commonly known as: Augmentin CONTINUE taking these medications but follow up with your Primary Care Physician (PCP). INSTRUCTIONS dexAMETHasone 4 MG Tabs Tablet Commonly known as: Decadron Take 8mg twice a day x3 days starting the day before chemotherapy Lidocaine-Prilocaine 2.5-2.5 % cream Commonly known as: Emla APPLY TO SKIN OVER MEDIPORT & COVER 1HR PRIOR TO ACCESSING. pantoprazole 40 MG Tbec Commonly known as: Protonix 1 Tablet. THIAMINE 100 MG Tablet Commonly known as: vitamin B-1 Take 1 Tablet by mouth daily. Vitamin B-12 1000 MCG Tablet Commonly known as: Cyanocobalamin Take 1 Tablet by mouth in the morning. 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 Patient reports intermittent nausea over the past few weeks associated with eating. Denies vomiting though feels like he coughs up phlegm. Reports he has not eaten a real meal in 2 days.Had 4 bites of toast this morning and one soda. Reports regular bowel movements, LBM today. Denies hematochezia, melena. Denies fever, chills, abdominal pain. 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 VSS. Patient appears frail and weak on exam. Abdominal exam unremarkable. Will EGD with GI in the AM to eval the anastomosis and optimize nutrition status. -Admit to surgery blue -GI c/s for EGD -NPO except meds -IVF -Pain and nausea control -DVT ppx: SCD, lovenox -AM labs -DEER FARMER meds resumed as appropriate -resumed lexapro -Dispo: med surg HOSPITAL COURSE (focused): Patient was admitted with nausea and concern for malnutrition. GI was consulted and he underwent EGD and placement of NJ tube. Tube feeds were initiated and titrated to goal, which he tolerated. Emend was started for nausea with significant improvement in nausea. Patient was also started on full liquid diet with protein supplements. Arrangements were made to continue tube feeds at home while he slowly increased his PO caloric intake. Patient was tolerating tube feeds and some PO intake and was deemed stable for discharge home on 09/29/23. Patient was provided with the appropriate discharge instructions and advised to follow-up with their primary care physician. Patient was also scheduled with a follow-up with Surgical Oncology clinic. Operations & Procedures: 09/27/23 EGD + NJ tube placement Complications: none significant SIGNIFICANT RESULTS: Vital Signs (last recorded): Most Recent Systolic BP: 125 mmHg (09/29/23 0745) Most Recent Diastolic BP: 79 mmHg (09/29/23 0745) Pulse: 64 (09/29/23 0745) Resp: 16 (09/29/23744) Most Recent Temperature: 36.5 C (09/29/23 07) Weight: 57.6 kg (127 lb) (09/26/23 2205) SpO2: 98 % (09/29/23 0745) O2 flow rate: 0 L/MIN (09/29/23 0800) Labs: CHEMISTRY: BUN, Creatinine, GFR Estimated, Sodium, Potassium, Chloride, Carbon Dioxide, Glucose, Calcium (see below for most recent value): Lab Results Component Value Date/Time BUN 8 09/29/2023 07:36 AM BUN 9 03/16/2018 04:22 AM CREAT 0.5 (L) 09/29/2023 07:36 AM CREAT 1.03 04/11/2021 12:00 AM CREAT 0.9 03/16/2018 04:22 AM GFRESTIMATED >60.0 03/16/2018 04:22 AM NA 136 09/29/2023 07:36 AM NA 140 03/16/2018 04:22 AM POTASSIUM 4.1 09/29/2023 07:36 AM POTASSIUM 3.9 04/11/2021 12:00 AM POTASSIUM 3.9 03/16/2018 04:22 AM CL 104 09/29/2023 07:36 AM CL 105 03/16/2018 04:22 AM CO2 25 09/29/2023 07:36 AM CO2 24 03/16/2018 04:22 AM CA 8.6 09/29/2023 07:36 AM CA 8.6 03/16/2018 04:22 AM BLOOD COUNT: WBC, Hgb, Platelets (see below for most recent value): Lab Results Component Value Date/Time WBC 12.17 (H) 09/29/2023 07:36 AM WBC 8.71 03/16/2018 04:22 AM HGB 10.8 (L) 09/29/2023 07:36 AM HGB 14.1 04/11/2021 12:00 AM HGB 11.6 (L) 03/16/2018 04:22 AM PLT 203 09/29/2023 07:36 AM PLT 175 03/16/2018 04:22 AM Imaging (focused): None new CONSULTS ORDERED: GASTROENTEROLOGY CONSULT IP PARENTERAL NUTRITION SUPPORT (ADULT) CONSULT IP REFERRING PHYSICIAN: Ref: PRAVEEN EDMONDS[[id number]] [address] [place] [address] (office) [phone] (fax) PRIMARY CARE PROVIDER: PCP: Ophelia Solis MD [address] [place] [phone] (office) [phone] (fax) Note: To contact a physician responsible for this patients hospital care, please call [facility] [phone]. documented in this encounter Discharge Instructions * Discharge Instr - AVS* Chinmay Lee CRNP - 09/27/2023 6:39 AM EST Discharge Date: 09/29/2023 Check your Patient Education Brochure for further information. You may call Dr. Edmonds of the department of Surgical Oncology at [phone] during business hours for any questions or test results. For after- hours emergencies, call [phone] and have theprovider planer stone paged. The information below provides you with [...] your inpatient care: You were admitted to [facility] on 09/26/23 for food intolerance. You had an Upper gastrointestinal endoscopy (EGD) with placement of naso-enteral feeding tube on 09/27/23. You tolerated the procedure well, had adequate pain control, and tolerated adiet before discharge. Your primary diagnosis at discharge was food intolerance PleasePlease follow these instructions carefully: Activity: As tolerated. No lifting greater than 10 pounds for 2 weeks. You may climb stairs. No driving until seen for follow-up appointment or while taking prescription pain medication. Diet: Full liquid diet by mouth with protein shakes as tolerated Pain Control: Take medication as prescribed. Incisions: Wash incisions with soap and water and [...] the Milk of Magnesia. Follow Up Appointment: Follow up with Dr Edmonds on 10/17/23 Follow up with Dietitian in 2 weeks. Call the surgeon with any of the following symptoms: Fever higher than 101 degrees Fahrenheit. Severe pain not relieved by pain medication. Inability to void. Excessive bleeding, swelling, redness, or drainage from any of the incisions. Additional instruction: - Remove your current scopolamine patch around 8am on 09/30/23. Then you may reapply a new scopolamine patch if needed for nausea. - NJ tube care: * Tube feed 55 ml/hr. If you tolerate continuous tube feeds well, you may advance to night cycle tube feed 85 mL/hr for 12 hr daily at night. * Flush NJ tube with 30-60ml water before and after tube feeds. * Follow up with Dietitian in 2 weeks for tube feed management. * Maintain the tube site clean and dry. Clean the site with soap and water. * Flush 20 ml of water after administering medications to decrease the risk of clogging. * Flush NJ tube with 150 ml water 4 times daily. * Bulking agesnts (ex: Metamucil) and resins (ex: Prevalite) shoule never be administered through gastrostomy tube. * In the event of a gastrostomy tube obstruction, flush the tube with 60 ml syringes of warm water.If you are unable to resolve the problem, contact your primary care physician. NJ tube @ 69cm. If the tube comes out all the way, dont put it back in. Call your doctor. You need to keep the skin around the feeding tube dry and clean. This helps prevent soreness and infection. The mouth alsoneeds to be cleansed, even though food is not taken through it. Cleaning the Skin Gently wash the skin around the feeding tube each day. Follow these steps: Wash your hands. Wet a soft cloth or gauze with warm, soapy water. Gently wipe the skin around the feeding tube. Also wipe the bolster and the base of the feeding tube. Rinse well with clear, warm water. Pat dry with a soft cloth. Caring for the Mouth To keep the mouth clean, follow these steps: [place] the teeth or dentures at least once daily with a soft toothbrush. Wipe the inside of the mouth with a damp washcloth. Apply a lip balm to keep the lips moist. Taking Your Medication Check the placement of your feeding tube the way you were shown in the hospital. Prepare each medication the way you were shown in the hospital. Take your medications in the following order: Liquid medications first. Medications that need to be dissolved second. Thick medications last. Measure the prescribed amount of liquid medication, or crush pills and dissolve powder in 15ml (about 1 tablespoon) or more of warm water. Remove the plunger from the 50ml syringe. Pour 30ml warm water into the syringe and flush your tube. Pour the medication into the syringe. Do not use the syringe plunger to push the medication into the tube. Let the medication flow in slowly. Be sure to flush your tube with 5ml (about 1 teaspoon) or more warm water between all medications. Take each medication separately. Never mix medications together in the syringe. Flush the tube with 30ml warm water after all medications have been given. Wait before restarting your tube feeding. Some medications do not work when mixed with the feeding formula. Ask your doctor how long you should wait to start feeding after taking medications. Keep your tube clamped between feedings. Call the doctor right away if any of the following occurs: The tube feels loose, comes out, or the size of the opening where the tube enters the skin increases. Redness, swelling, leakage, sores, or pus develop around the tube. Red, rough tissue develops around the tube site. You see blood around the tube, in your stool, or in contents of the stomach. The tube becomes clogged or blocked and you cannot clear it. You start to cough, choke, or vomit while feeding. You have a bloated or rigid abdomen (belly feels hard when gently pressed). You have diarrhea. You have a fever of 100.4 degrees Fahrenheit or higher Date you may return to work or school: N/A Inpatient test results pending: None Operations & Procedures: Upper gastrointestinal endoscopy (EGD) with placement of naso-enteral feeding tube Complications: none Advance Directive Documented: Advance Directive Does the Patient have an Advance Directive? Not Addressed * Care [facility] [place]* Liz Stanley RN - 09/29/2023 10:33 AM EST No care business team leader to display [facility] has a start of care Saturday 09/30 at noon. [facility] will be delivering your tube feeds and supplies today between 4-5 pm. documented in this encounter Progress Notes * Nataly Garcia MD - 09/29/2023 8:30 AM EST PROGRESS NOTE - General Surgery [facility] [address] Name: Edward Yoder Location: [facility] B[facility] Date: 09/29/2023 Time: 8:30 AM DIAGNOSIS: Nausea, inability to tolerate PO PROCEDURE: 09/27/23 EGD + NJ tube placement SUBJECTIVE: No acute events overnight. Afebrile, VSS. Tolerating tube feeds at goal without issue. Had some soda, broth and a protein shake yesterday. States nausea is significantly improved and feels he can drink more. Discussed with patient that we plan to continue tube feeds via NJ until he is meeting his caloric intake. OBJECTIVE: Most Recent Vital Signs: BP: 125 mmHg/79 mmHg (09/29/23744) Pulse: 64 (09/29/23744) Temp: 36.5 C (09/29/23744) Temp Summary: Temp Min: 36 C (96.8 F) Max: 37.1 C (98.8 F) SpO2: 98 % (09/29/23744) O2 flow rate: 0 L/MIN (09/28/23 1421) Supplemental O2 Delivery: Room Air, None (09/29/23744) Vital Signs Last 24 Hours: Systolic BP: Most Recent Systolic BP Av mmHg Min: 109 mmHg Max: 125 mmHg Temperature: Most Recent Temperature Av.6 C Min: 36 C Max: 37.11 C Pulse: Pulse Av.2 Min: 61 Max: 72 Respirations: Resp Av.3 Min: 16 Max: 18 SpO2: SpO2 Av % Min: 97 % Max: 99 % In / Out Past 24 Hrs: Intake/Output Summary (Last 24 hours) at 09/29/2023 0830 Last data filed at 09/28/2023 1700 Gross per 24 hour Intake 675 ml Output 600 ml Net 75 ml Physical Exam: Constitutional: no acute distress HEENT: normocephalic, atraumatic CV: distally perfused Chest: normal respiratory effort, no retractions Abdomen: soft, nondistended, non-tender - well-healed midline incision Neuro: AAO x3 LABS: Labs reviewed as indicated below: CHEMISTRY: BUN, Creatinine, GFR Estimated, Sodium, Potassium, Chloride, Carbon Dioxide, Glucose, Calcium (see below for most recent value): Lab Results Component Value Date/Time BUN 8 09/29/2023 07:36 AM BUN 9 03/16/2018 04:22 AM CREAT 0.5 (L) 09/29/2023 07:36 AM CREAT 1.03 04/11/2021 12:00 AM CREAT 0.9 03/16/2018 04:22 AM GFRESTIMATED >60.0 03/16/2018 04:22 AM NA 136 09/29/2023 07:36 AM NA 140 03/16/2018 04:22 AM POTASSIUM 4.1 09/29/2023 07:36 AM POTASSIUM 3.9 04/11/2021 12:00 AM POTASSIUM 3.9 03/16/2018 04:22 AM CL 104 09/29/2023 07:36 AM CL 105 03/16/2018 04:22 AM CO2 25 09/29/2023 07:36 AM CO2 24 03/16/2018 04:22 AM CA 8.6 09/29/2023 07:36 AM CA 8.6 03/16/2018 04:22 AM BLOOD COUNT: WBC, Hgb, Platelets (see below for most recent value): Lab Results Component Value Date/Time WBC 12.17 (H) 09/29/2023 07:36 AM WBC 8.71 03/16/2018 04:22 AM HGB 10.8 (L) 09/29/2023 07:36 AM HGB 14.1 04/11/2021 12:00 AM HGB 11.6 (L) 03/16/2018 04:22 AM PLT 203 09/29/2023 07:36 AM PLT 175 03/16/2018 04:22 AM IMAGING: N/A Sutures/sheldon to be removed?: no sutures to be removed Central line to be removed or continued?: patient does not have central venous access Current DVT/PE prophylaxis is?: sequential compression devices (SCD's) and subcutaneous low molecular weight heparin Current stress ulcer prophylaxis is?: none Medication administration record reviewed this visit?: Yes IMPRESSION: Principal Problem: Severe malnutrition (HCC) Active Problems: 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 * Patient is a 58 year old male s/o gastrectomy with RNY reconstruction on 08/02/23 c/b anastomotic abscess requiring abx course who presents with nausea with PO intake and weight loss. Now s/p EGD andNJ placement on 09/27/23. PLAN: Continue tube feeds at goal rate of 55 ml/hr PO intake as tolerated - encourage protein supplementation - Advance to full liquid diet with protein shakes, will continue this regimen and slowly introduce solid foods as tolerated at home Nausea control: Emend daily, scop patch, PRN zofran DVT ppx: SCDs, Lovenox DEER FARMER meds: lexapro, Aprepitant, PRN ativan resumed Dispo: anticipate DC home today pending arrangement of home tube feeds The patient was examined and will be discussed with Dr. Edmonds. Nataly Garcia MD General Surgery Resident - PGY 5 Associated attestation - Praveen Edmonds MD - 09/29/2023 9:29 AM EST I did not see the patient, but I have reviewed the trainee documentation and was readily available on date of service. * Vy Martin MD - 09/28/2023 11:20 AM EST PROGRESS NOTE - Nutrition Support [facility] [address] Name: Edward Yoder Location: [facility] B641/B Date: 09/28/2023 Time: 11:21 AM HPI: Edward Yoder is a 58 year old male with a past medical history significant for Siewert III gastric cancer s/p total gastrectomy with Rtevin-en-Y esophagojejunostomy by Dr. Edmonds on 08/02/23 who is seen at the request of General surgery for evaluation and treatment of protein calorie malnutrition and initiation of parenteral nutrition. Patient presents due to p.o. intolerance in the setting of persistent nausea and coughing up phlegm over the past few weeks. Of note, patient was recently admitted 09/02-09/05 due to abscess near EJ anastomosis and was treated with antibiotics. Patient underwent EGD with nasoenteral tube placement by GI 09/27/23. SUBJECTIVE: Patient seen and examined at bedside. Tolerating NJ feeds at 40 cc/hr. On CLD. Reports some throat discomfort from the tube. CURRENT NUTRITION SUPPORT: tube feeding PHYSICAL EXAM: Most Recent Vital Signs: BP: 98 mmHg/69 mmHg (09/28/23 07) Pulse: 65 (09/28/23699) Temp: 36.72 C (09/28/23699) Temp Summary: Temp Min: 36.2 C (97.2 F) Max: 37 C (98.6 F) SpO2: 96 % (09/28/23699) O2 flow rate: 0 L/MIN (09/27/23 1533) Supplemental O2 Delivery: Room Air, None (09/28/23 0332) Vital Signs Last 24 Hours: Systolic BP: Most Recent Systolic BP Av.2 mmHg Min: 98 mmHg Max: 142 mmHg Temperature: Most Recent Temperature Av.5 C Min: 36.22 C Max: 37 C Pulse: Pulse Av Min: 59 Max: 79 Respirations: Resp Av.1 Min: 9 Max: 18 SpO2: SpO2 Av.2 % Min: 96 % Max: 100 % I/O: Intake/Output Summary (Last 24 hours) at 09/28/2023 1121 Last data filed at 09/28/2023 1120 Gross per 24 hour Intake 1345 ml Output 600 ml Net 745 ml Constitutional: no acute distress, NJT in place CV: normal rate Chest: normal respiratory effort Abdomen: soft, no tenderness LABS: Labs reviewed IMPRESSION and PLAN: Edward Yoder is a pleasant 58 year old male who has been assessed by the nutrition support team for the evaluation of protein calorie malnutrition. RECOMMENDATIONS: Recommended nutritional support: tube feeding. #Nutrition Support #Severe Malnutrition #Unintentional Weight Loss Patient is tolerating NJT feeds, advance to goal at 55cc/hr as tolerated Please see chairman & ceo recommendations for tube feeds Maintain accurate intake and output Weights qAM Please advance diet as tolerated and as appropriate Labs ordered: vitamin A, vitamin D, vitamin E, vitamin K, vitamin B1, folate, vitamin B12, MMA, copper, zinc Labs pending: vitamin A, vitamin E, vitamin K, vitamin B1, MMA, copper, zinc Continue on thiamine 100 mg IV daily Given one time B12 injection this admission as level suboptimal <500 Message to be sent to schedulers to schedule NWM outpatient follow up appointment #Persistent Nausea On antiemetics as needed #Hypokalemia Given 40 mEq PO repletion per primay team Continue to bolus externally for a goal K >4 #Hypophosphatemia Bolus externally for a goal Phos >3 #Vitamin D insufficiency Level of 24, checked 09/2023 Recommend to start Vitamin D 2,000iU daily when diet advanced #Iron deficiency anemia Ferritin level of 185, checked 07/2023 Consider recheck iron panel and ferritin and starting iron supplementation as needed as outpatient #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 We will sign off at this time. Please contact us with any questions. The patient was discussed with Dr. Klein. Vy Martin MD Associated attestation - Dimas Klein MD - 09/28/2023 3:50 PM EST I saw and evaluated the patient today. I have reviewed the trainee note and agree. - Advance tube feeds to goal as tolerated - Hold off on parenteral nutrition Dimas Klein MD Nutrition and Weight Management * Nataly Garcia MD - 09/28/2023 9:52 AM EST PROGRESS NOTE - General [place] [facility] [place] [address] Name: Edward Yoder [place] [facility] [place] B641/B Date: 09/28/2023 Time: 9:52 AM DIAGNOSIS: Nausea, inability to tolerate PO PROCEDURE: 09/27/23 EGD + NJ tube placement SUBJECTIVE: No acute events overnight. Afebrile, VSS. Tube feeds started last night - tolerating currently at 40 ml/hr. He was able to take some liquids in orally last night. Nausea somewhat improved. OBJECTIVE: Most Recent Vital Signs: BP: 98 mmHg/69 mmHg (09/28/23699) Pulse: 65 (09/28/23699) Temp: 36.72 C (09/28/23699) Temp Summary: Temp Min: 36.2 C (97.2 F) Max: 37 C (98.6 F) SpO2: 96 % (09/28/23699) O2 flow rate: 0 L/MIN (09/27/23 1533) Supplemental O2 Delivery: Room Air, None (09/28/23 033) Vital Signs Last 24 Hours: Systolic BP: Most Recent Systolic BP Av.2 mmHg Min: 98 mmHg Max: 142 mmHg Temperature: Most Recent Temperature Av.5 C Min: 36.22 C Max: 37 C Pulse: Pulse Av Min: 59 Max: 79 Respirations: Resp Av.1 Min: 9 Max: 18 SpO2: SpO2 Av.2 % Min: 96 % Max: 100 % In / Out Past 24 Hrs: Intake/Output Summary (Last 24 hours) at 09/28/2023 0952 Last data filed at 09/28/2023 0905 Gross per 24 hour Intake 1135 ml Output -- Net 1135 ml Physical Exam: Constitutional: no acute distress HEENT: normocephalic, atraumatic CV: distally perfused Chest: normal respiratory effort, no retractions Abdomen: soft, nondistended, non-tender - well-healed midline incision Neuro: AAO x3 LABS: Labs reviewed as indicated below: CHEMISTRY: BUN, Creatinine, GFR Estimated, Sodium, Potassium, Chloride, Carbon Dioxide, Glucose, Calcium (see below for most recent value): Lab Results Component Value Date/Time BUN 7 09/28/2023 07:42 AM BUN 9 03/16/2018 04:22 AM CREAT 0.6 09/28/2023 07:42 AM CREAT 1.03 04/11/2021 12:00 AM CREAT 0.9 03/16/2018 04:22 AM GFRESTIMATED >60.0 03/16/2018 04:22 AM NA 137 09/28/2023 07:42 AM NA 140 03/16/2018 04:22 AM POTASSIUM 3.4 (L) 09/28/2023 07:42 AM POTASSIUM 3.9 04/11/2021 12:00 AM POTASSIUM 3.9 03/16/2018 04:22 AM CL 104 09/28/2023 07:42 AM CL 105 03/16/2018 04:22 AM CO2 26 09/28/2023 07:42 AM CO2 24 03/16/2018 04:22 AM CA 8.4 09/28/2023 07:42 AM CA 8.6 03/16/2018 04:22 AM BLOOD COUNT: WBC, Hgb, Platelets (see below for most recent value): Lab Results Component Value Date/Time WBC 6.41 09/28/2023 07:42 AM WBC 8.71 03/16/2018 04:22 AM HGB 10.6 (L) 09/28/2023 07:42 AM HGB 14.1 04/11/2021 12:00 AM HGB 11.6 (L) 03/16/2018 04:22 AM PLT 219 09/28/2023 07:42 AM PLT 175 03/16/2018 04:22 AM IMAGING: N/A Sutures/sheldon to be removed?: no sutures to be removed Central line to be removed or continued?: patient does not have central venous access Current DVT/PE prophylaxis is?: sequential compression devices (SCD's) and subcutaneous low molecular weight heparin Current stress ulcer prophylaxis is?: none Medication administration record reviewed this visit?: Yes IMPRESSION: Principal Problem: Severe malnutrition (HCC) Active Problems: 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 * Patient is a 58 year old male s/o gastrectomy with RNY reconstruction on 08/02/23 c/b anastomotic abscess requiring abx course who presents with nausea with PO intake and weight loss. Now s/p EGD andNJ placement on 09/27/23. 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 Possible DC home 09/29 pending arrangement of home tube feeds The patient was examined and will be discussed with Dr. Edmonds. Nataly Garcia MD General Surgery Resident - PGY 5 Associated attestation - Praveen Edmonds MD - 09/28/2023 10:52 AM EST I saw and evaluated the patient today. I have reviewed the trainee note and agree. TFs Trend nausea * Nataly Garcia MD - 09/27/2023 6:52 AM EST PROGRESS NOTE - General Surgery [facility] [place] [address] Name: Edward Yoder Location: [facility] [place] B641/B Date: 09/27/2023 Time: 6:54 AM DIAGNOSIS: Nausea, inability to tolerate PO PROCEDURE: none this admission SUBJECTIVE: No acute events overnight. Afebrile, VSS. Ongoing nausea with PO intake. Reports mild abdominal pain. Voiding spontaneously. Last BM was yesterday. OBJECTIVE: Most Recent Vital Signs: BP: 122 mmHg/85 mmHg (09/27/23399) Pulse: 63 (09/27/23399) Temp: 36.22 C (09/27/23399) Temp Summary: Temp Min: 35.8 C (96.4 F) Max: 36.2 C (97.2 F) SpO2: 98 % (09/27/23399) O2 flow rate: 0 L/MIN (09/26/23 9238) Supplemental O2 Delivery: Room Air, None (09/27/23399) Vital Signs Last 24 Hours: Systolic BP: Most Recent Systolic BP Av.5 mmHg Min: 122 mmHg Max: 123 mmHg Temperature: Most Recent Temperature Av C Min: 35.78 C Max: 36.22 C Pulse: Pulse Av.5 Min: 63 Max: 66 Respirations: Resp Av.7 Min: 17 Max: 18 SpO2: SpO2 Av.3 % Min: 98 % Max: 99 % In / Out Past 24 Hrs: Intake/Output Summary (Last 24 hours) at 09/27/2023 0654 Last data filed at 09/27/2023 0400 Gross per 24 hour Intake 0 ml Output -- Net 0 ml Physical Exam: Constitutional: no acute distress HEENT: normocephalic, atraumatic CV: distally perfused Chest: normal respiratory effort, no retractions Abdomen: soft, nondistended, non-tender - well-healed midline incision Neuro: AAO x3 LABS: Labs reviewed as indicated below: CHEMISTRY: BUN, Creatinine, GFR Estimated, Sodium, Potassium, Chloride, Carbon Dioxide, Glucose, Calcium (see below for most recent value): Lab Results Component Value Date/Time BUN 6 09/27/2023 01:21 AM BUN 9 03/16/2018 04:22 AM CREAT 0.6 09/27/2023 01:21 AM CREAT 1.03 04/11/2021 12:00 AM CREAT 0.9 03/16/2018 04:22 AM GFRESTIMATED >60.0 03/16/2018 04:22 AM NA 139 09/27/2023 01:21 AM NA 140 03/16/2018 04:22 AM POTASSIUM 3.7 09/27/2023 01:21 AM POTASSIUM 3.9 04/11/2021 12:00 AM POTASSIUM 3.9 03/16/2018 04:22 AM CL 103 09/27/2023 01:21 AM CL 105 03/16/2018 04:22 AM CO2 25 09/27/2023 01:21 AM CO2 24 03/16/2018 04:22 AM CA 9.2 09/27/2023 01:21 AM CA 8.6 03/16/2018 04:22 AM BLOOD COUNT: WBC, Hgb, Platelets (see below for most recent value): Lab Results Component Value Date/Time WBC 5.47 09/27/2023 01:21 AM WBC 8.71 03/16/2018 04:22 AM HGB 11.1 (L) 09/27/2023 01:21 AM HGB 14.1 04/11/2021 12:00 AM HGB 11.6 (L) 03/16/2018 04:22 AM PLT 224 09/27/2023 01:21 AM PLT 175 03/16/2018 04:22 AM IMAGING: N/A Sutures/sheldon to be removed?: no sutures to be removed Central line to be removed or continued?: patient does not have central venous access Current DVT/PE prophylaxis is?: sequential compression devices (SCD's) and subcutaneous low molecular weight heparin Current stress ulcer prophylaxis is?: none Medication administration record reviewed this visit?: Yes IMPRESSION: Principal Problem: Malnutrition of moderate degree (HCC) Active Problems: 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 * Patient is a 58 year old male s/o gastrectomy with RNY reconstruction on 08/02/23 c/b anastomotic abscess requiring abx course who presents with nausea with PO intake and weight loss. PLAN: NPO excepts meds, IVF GI consult for consideration of EGD to evaluate anastomosis GI nutrition consult for initiation of PPN Plan to hold off on placing PICC / starting TPN until EGD done Monitor clinically for infection WBC normal and patient finished course of abx No indication to resume abx therapy at this time DVT ppx: SCDs, Lovenox DE[employer]ER meds: lexapro, Aprepitant, PRN ativan resumed Dispo: med surg The patient was examined and will be discussed with Dr. Edmonds. Nataly Garcia MD General Surgery Resident - PGY 5 Associated attestation - Praveen Edmonds MD - 09/27/2023 8:31 AM EST I saw and evaluated the patient today. I have reviewed the trainee note and agree. EGD- - emend and anti-nausea meds - Dobhoff documented in this encounter H&P Notes * Jackie Sanabria MD - 09/27/2023 12:42 PM EST Endoscopy Pre-Procedure Assessment Name: Edward Yoder Date: 09/27/2023 Time: 12:42 PM Procedure(s): Upper GI Endoscopy; with Indication(s) of evaluation of abnormal radiologic study Endoscopy Pre-Procedure Assessment: Prior to the procedure, the patient is identified. The patient's history, medications and allergieshave been reviewed. The patient is competent. The risks and benefits of the proposed procedure and the planned sedation have been discussed with the patient. All questions have been answered and informed consent for the procedure has been obtained. Prior to Admission medications Medication Sig Last Dose Discont. Escitalopram Oxalate 10 MG Oral Tablet (Lexapro) 1/2 tab daily x 7 days then 1 tab daily at bedtime LORazepam 0.5 MG Oral Tablet (Ativan) TAKE ONE TABLET BY MOUTH EVERY 6 HOURS NEEDED FOR ANXIETY OR SLEEP Pantoprazole Sodium 40 MG Oral Tablet Delayed Release (Protonix) 1 Tablet. Patient not taking: Reported on 09/22/2023 Aprepitant 40 MG Oral Capsule (Emend) Take 1 Capsule by mouth in the morning. Scopolamine 1 MG/3DAYS Transdermal Patch 72 Hour (Transderm Scop) Place 1 Patch over 72 hours topically on the skin every 3 days. Morphine Sulfate (Concentrate) 100 MG/5ML Oral Solution Take 0.25 mL by mouth every 4 hours as needed for Pain, Moderate. Amoxicillin-Pot Clavulanate 875-125 MG Oral Tablet (Augmentin) Take 1 Tablet by mouth in the morning and 1 Tablet before bedtime. Do all this for 11 days. Ondansetron HCl 8 MG Oral Tablet (Zofran) Take 1 Tablet by mouth every 8 hours as needed for Nausea. Acetaminophen 160 MG/5ML Oral Liquid (Tylenol) Take 20.3 mL by mouth every 4 hours as needed for Pain, Breakthrough. Vitamin B-12 1000 MCG Oral Tablet (Cyanocobalamin) Take 1 Tablet by mouth in the morning. Patient not taking: Reported on 09/22/2023 Dexamethasone 4 MG Oral Tablet (Decadron) Take 8mg twice a day x3 days starting the day before chemotherapy Patient not taking: Reported on 09/22/2023 Lidocaine-Prilocaine 2.5-2.5 % External Cream (Emla) APPLY TO SKIN OVER MEDIPORT & COVER 1HR PRIOR TO ACCESSING. Patient not taking: Reported on 09/22/2023 Prochlorperazine Maleate 10 MG Oral Tablet (Compazine) Take 1 Tablet by mouth every 6 hours as needed for Nausea. Thiamine HCl 100 MG Oral Tablet (vitamin B-1) Take 1 Tablet by mouth daily. Patient not taking: Reported on 09/22/2023 Review of patient's allergies indicates: Allergen Reactions Tegretol [Carbamazepine] Rash BP 137/88 | Pulse 63 | Temp 36.7 C (98 F) (Tympanic) | Resp 16 | Ht 1.803 m (5' 11") | Wt 57.6 kg (127 lb) | SpO2 98% | BMI 17.71 kg/m | BSA 1.7 m Physical Exam: Mental Status Examination: alert and oriented. Airway Examination: normal oropharyngeal airway and neck mobility. Respiratory Examination: clear to auscultation. CV Examination: normal. Abdomen: negative This patient has undergone a preprocedural evaluation. A determination has been made to proceed with the planned procedure under [facility] [place] procedural guidelines and the [facility] Non-Emergent, Elective Medical Services and Treatment [...] the potential for increasing morbidity or mortality. After reviewing the risks and benefits, the patient is deemed in satisfactory condition to undergo the procedure. The anesthesia plan is to use monitored anesthesia care (MAC). 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 Patient reports intermittent nausea over the past few weeks associated with eating. Denies vomiting though feels like he coughs up phlegm. Reports he has not eaten a real meal in 2 days.Had 4 bites of toast this morning and one soda. Reports regular bowel movements, LBM today. Denies hematochezia, melena. Denies fever, chills, abdominal pain. PMHx: siewert III gastric cancer PSHx: total gastrectomy, craniectomy AC/AP: none HOSPITAL PROBLEM LIST: Active Problems: * No active hospital problems. * POA = Present On Admission PAST MEDICAL HISTORY: Past Medical History: Diagnosis [...] performed by Homar Blair MD at ENDOSCOPY [facility] EGD, FLEXIBLE, DIAGNOSTIC 03/30/2023 ESOPHAGOGASTRODUODENOSCOPY (EGD), FLEXIBLE, TRANSORAL, DIAGNOSTIC performed by Homar Blair MD at ENDOSCOPY [facility] EGD, W/ENDOSCOPIC US N/A 04/01/2023 ESOPHAGOGASTRODUODENOSCOPY (EGD), FLEXIBLE, TRANSORAL, ENDOSCOPIC ULTRASOUND performed by Karson Greco MD at [place] [facility] [place] EXPLORE/DECOMPRESS CRANIAL NERVES Left 03/15/2018 CRANIECTOMY SUBOCCIPITAL EXPLORATION CRANIAL NERVES performed by Ronak Khoury MD at [place] [facility] [place] INSER TUNN ACC DEV;5 YRS/OLDER Right 04/19/2023 INSERT TUNNELED CENTRAL VENOUS ACCESS WITH SUBQ PORT performed by Ophelia Brown DO at OR [facility] MICROSURGERY ADD-ON Left 03/15/2018 MICROSURGICAL SURGERY REQUIRING MICROSCOPE LISTED SEPARATELY performed by Ronak Khoury MD at [facility] REMOVE STOMACH, TOTAL N/A 08/02/2023 GASTRECTOMY TOTAL WITH ESOPHAGOENTEROSTOMY performed by Praveen Edmonds MD at [place] [facility] [place] SPINAL FLUID TAP FOR DRAINAGE Left 03/15/2018 SPINAL PUNCTURE DRAINAGE CSF performed by Ronak Khoury MD at [place] [facility] [place] FAMILY HISTORY: Family History Problem Relation Age of Onset No Past Hx Mother Stroke Father No Past Hx Son No Past Hx Unknown SOCIAL HISTORY: Social History Tobacco Use Smoking status: Former Types: Cigars Smokeless tobacco: Never Tobacco comments: Very infrequently Vaping Use Vaping Use: Never used Substance Use Topics Alcohol use: Yes Alcohol/week: 5.0 standard drinks of alcohol Types: 5 12 oz of beer per week Comment: social Drug use: Not Currently Types: Marijuana Comment: infrequently CURRENT HOSPITAL MEDICATIONS: Note that completed medications (per the MAR) continue to display for 24 hours. Ordered medicationsto be given in the future also display. No current facility-administered medications for this encounter. ALLERGIES: Tegretol [carbamazepine] ROS: Negative except as per HPI PHYSICAL EXAMINATION: Most Recent Vital Signs: BP: 123 mmHg/88 mmHg (09/26/232204) Pulse: 66 (09/26/232204) Temp: 35.78 C (09/26/232204) Temp Summary: Temp Min: 35.8 C (96.4 F) Max: 35.8 C (96.4 F) SpO2: 99 % (09/26/232204) O2 flow rate: Supplemental O2 Delivery: Room Air, None (09/26/232204) Constitutional: no acute distress, frail appearing HEENT: normocephalic, atraumatic Eyes: sclera and conjunctiva normal CV: normal rate, normal rhythm Chest: normal respiratory effort Abdomen: soft, nontender, nondistended, incision well healed Extremities: warm and well perfused Skin: warm, dry, intact Neuro: alert, oriented to person, place, and time, grossly intact LABS: Labs reviewed as indicated below: No results found for this or any previous visit (from the past 12 hour(s)). 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 VSS. Patient appears frail and weak on exam. Abdominal exam unremarkable. Will EGD with GI in the AM to eval the anastomosis and optimize nutrition status. 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 Bansal. Vanessa Antony MD PGY-1 General Surgery Resident [facility] REFERRING PHYSICIAN: 1. Praveen Edmonds MD PRIMARY CARE PHYSICIAN: Ophelia Solis MD Associated attestation - Sandy Bansal MD - 09/27/2023 4:48 PM EST I did not see the patient, but I have reviewed the trainee documentation and was readily available on date of service. Sandy Bansal MD [address] [place] [address] 09/27/2023 documented in this encounter Procedure Notes * Jeyson Brock DO - 09/27/2023 12:45 PM ESTAssociated Order(s): UPPER GI ENDOSCOPY [facility] Patient Name: Edward Yoder Procedure Date: 09/27/2023 12:45 PM Date of : 1965 Admit Type: Inpatient Note Status: Finalized Date of : 1965 Admit Type: Inpatient Age: 58 Room: Endo - Room 4 Gender: Male Note Status: Finalized Procedure: Upper GI endoscopy Indications: Abnormal CT of the GI tract, Personal history of malignant gastric neoplasm s/p total gastrectomy with Trevin-en-Y esophago-jejunostomy Providers: Jackie Sanabria MD (Doctor), Adolph Barrera (Fellow), Seferino Ellis RN, Dian Maier, Brick Loader Referring MD: Jeyson Brock DO, Alana Persaud, Praveen Edmonds MD Medicines: Monitored Anesthesia Care Complications: No immediate complications. Procedure: Pre-Anesthesia Assessment: - Prior to the procedure, a History and Physical was performed, and patient medications and allergies were reviewed. The patient is competent. The risks and benefits of the procedure and the sedation options and risks were discussed with the patient. All questions were answered and informed consent was obtained. Patient identification and proposed procedure were verified by the physician, the nurse, the anesthesiologist, the administrative services coordinator and the restorative care technician in the pre-procedure area in the procedure room. Mental Status Examination: alert and oriented. Airway Examination: normal oropharyngeal airway and neck mobility. Respiratory Examination: clear to auscultation. CV Examination: normal. After reviewing the risks and benefits, the patient was deemed in satisfactory condition to undergo the procedure. The anesthesia plan was to use monitored anesthesia care (MAC). Immediately prior to administration of medications, the patient was re-assessed for adequacy to receive sedatives. The heart rate, respiratory rate, oxygen saturations, blood pressure, adequacy of pulmonary ventilation, and response to care were monitored throughout the procedure. The physical status of the patient was re-assessed after the procedure. - The supervising physician was present for the entire procedure from scope insertion until scope withdrawal. After obtaining informed consent, the endoscope was passed under direct vision. All instruments were visually inspected immediately before and after removal from the patient to ensure they are fully intact. Throughout the procedure, the patient's blood pressure, pulse, and oxygen saturations were monitored continuously. The GIF H180J Endoscope([id number]) was introduced through the mouth, and advanced to the proximal jejunum. Findings & Specimens: An esophago-jejunal anastomosis was found at 36 cm from the incisors. There is no endoscopic evidence of fistula in the entire esophagus. The examined jejunum was normal. A guide wire was inserted into the jejunum and the endoscope was removed. A 16 Fr nasojejunal tube was advanced over the guide wire into the jejunum. Placement was confirmed by scope visualization. Impression: - An esophago-jejunal anastomosis was found. - Normal examined jejunum. - Feeding tube placement was successfully performed. - No specimens collected. - All instruments are visually inspected immediately before and after removal from the patient to ensure they are fully intact. Recommendation: - Return patient to hospital [facility] for ongoing care. - Further recommendations as per GI consult service. Jackie Sanabria MD 09/27/2023 1:41:48 PM This report has been signed electronically. Adolph Barrera, Estimated Blood Loss: Estimated blood loss: none. documented in this encounter Consult Notes * Teresa Pandya RDN - 09/27/2023 10:49 AM EST CLINICAL NUTRITION CONSULT/PROGRESS NOTE [address] [address] Name: Edward Yoder [place] [facility] [place] B641/[place] Date: 09/27/2023 Time: 10:50 AM How patient was identified (select 2): Wristband and Name Discussed in interdisciplinary rounds: Jana Sanford Yoder is a 58 year old male being seen for high risk diagnosis Primary Diagnosis: Admitted with weakness Hx of Gastrectomy with trevin en Y reconstruction on 08/02/23 complicated by anastomotic abscess. Other pertinent information: Patient seen this morning, complains of nausea states it is consistent. Prior to admission did not eat for a couple of days he states. Has lost more weight since previousadmissions in June/July. ~16% loss in the past 6 months. To have EGD today to evaluate anastomosis. NG for enteral feeds to be placed today. Plan to hold on parenteral nutrition today NUTRITION ASSESSMENT: Past medical/surgical history and medications reviewed. Food/Nutrition-Related History Diet: NPO Previously followed diet: Regular Food Allergies/Intolerances: no known Adult Energy Intake: Less than 75% of estimated energy requirement for greater than 1 month (moderate/severe, chronic illness). Oral Nutrition Supplement (ONS): none Nutrition Support: None Pertinent medications/vitamins/minerals/supplements: Isolyte-S infusion, Magnesium sulfate, Scopolamine, Pertinent Biochemical Data: There are no biochemical abnormalities requiring a change in the nutrition plan of care Nutrition-Focused Physical Findings: Appearance: Ill-appearing and Thin Respiratory support: Supplemental O2 Delivery: Room Air, None Nasal/Oral: No issues identified Digestive: Nausea and Vomiting Last Bowel Movement: 09/25/23 (per pt) (09/26/23 3177) Cognition: Awake, alert Skin: Intact Enteral access: none at time of visit Nutrition Focused Physical Exam: NFPE completed on 09/27/23 Subcutaneous Fat Loss: Orbital fat pads: Moderate Tricep: Moderate Muscle Loss: Temples: Severe Clavicles: Moderate Shoulders: Moderate Interosseous: Moderate Anthropometrics Measurements Height: 180.3 cm (5' 11") (09/26/232204) Admission weight: 57.6 kg Weight: 57.6 kg (127 lb) (09/26/232204) BMI: 17.72 (09/26/232204) Usual Body Weight: 68-67 kg [place] weight: 70.5kg [place] Weight Based on BMI: 21.7 Adjusted ideal weight: n/a Interpretation of Weight Change Prior to Admission: Greater than 7.5% weight loss in 3 months (Severe), 16% loss x 6 months Weight Changes Since Admission: n/a Nutrition Prescription: Energy needs: 30-35 Kcal/kg Based on admission weight Kcal/day: 4904-9968 Protein needs: 1.3-1.5 gm/kg Based on admission weight gm/day: 74-86 Fluid needs: 30 ml/kg Based on admission weight mL/day: 1728 Malnutrition: Malnutrition Present: Yes (09/27/231099) Adult Malnutrition Classification: Severe (09/27/231099) Malnutrition Characteristics: Fat loss;Muscle loss;Inadequate energy intake;Weight loss (09/27/231099) Malnutrition Care Plan: Patient meets ASPEN/AND criteria for severe malnutrition. Patient is currently NPO secondary to PO intolerance. To follow for initiation of diet and/or implementation of appropriate malnutrition intervention per clinical guidelines. Should diet not be initiated in 3 days, will consider enteral or parenteral nutrition. Dietitian Action: Monitored NPO/clear liquid status (09/27/231099) NUTRITION DIAGNOSIS: Malnutrition severe related to chronic illness as evidenced by patient consuming less than 75% of estimated energy requirements x 1 month, greater than 10% weight loss x 6 month, moderate fat loss, and moderate muscle loss. Altered GI function related to gastric cancer s/p gastrectomy with esophagojejunostomy complicated by abscess as evidenced by current NPO status with need for enteral feeds Goals: Diet advancement or initiation of enteral/parenteral nutrition within 24-48 hours. NUTRITION INTERVENTION/PLAN: Continue to monitor NPO/clear liquid status Continue to monitor nutrition support Clinical Nutrition Recommendations: Diet: Advance diet when clinically feasible Enteral Nutrition: If enteral route established recommend Peptamen 1.5 at 55 mL/hr -1980 Kcals, 89 gm protein and 1016 mL free water Protein Modular: none Free Water Flush: if no oral intake will need 150mL Q6H to meet maintenance fluid needs. If enteral and oral nutrition not possible for patient and he is to remain NPO >5 days would recommend starting Parenteral nutrition NUTRITION MONITORING AND EVALUATION: NPO status/diet advancement and tolerance GI tolerance for enteral nutrition Lab values warranting change with MNT Weight for trends Plan follow-up: Will follow and adjust nutrition plan of care as medical condition requires. Please contact for change(s) in patient condition requiring earlier intervention. 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 Edmonds on 08/02/23 who is seen at the request of General surgery for evaluation and treatment of protein calorie malnutrition and initiation of parenteral nutrition. Patient presents due to p.o. intolerance in the setting of persistent nausea and coughing up phlegm over the past few weeks. Of note, patient was recently admitted 09/02-09/05 due to abscess near EJ anastomosis and was treated with antibiotics. Patient has had about 16% weight loss in the past 6 months. Reporting he has not eaten in the past 3 days with poor po tolerance eating small meals since most recent discharge. Patient seen and examined at bedside. Reports he has been spitting up some phlegm and nausea. Plan for patient to have EGD with nasoenteral tube placement by GI today. PAST MEDICAL HISTORY: Past Medical History: Diagnosis [...] performed by Homar Blair MD at ENDOSCOPY [facility] EGD, FLEXIBLE, DIAGNOSTIC 03/30/2023 ESOPHAGOGASTRODUODENOSCOPY (EGD), FLEXIBLE, TRANSORAL, DIAGNOSTIC performed by Homar Blair MD at ENDOSCOPY [facility] EGD, W/ENDOSCOPIC US N/A 04/01/2023 ESOPHAGOGASTRODUODENOSCOPY (EGD), FLEXIBLE, TRANSORAL, ENDOSCOPIC ULTRASOUND performed by Karson Greco MD at [place] [facility] EXPLORE/DECOMPRESS CRANIAL NERVES Left 03/15/2018 CRANIECTOMY SUBOCCIPITAL EXPLORATION CRANIAL NERVES performed by Ronak Khoury MD at OR [facility] INSER TUNN ACC DEV;5 YRS/OLDER Right 04/19/2023 INSERT TUNNELED CENTRAL VENOUS ACCESS WITH SUBQ PORT performed by Ophelia Brown DO at OR [facility] MICROSURGERY ADD-ON Left 03/15/2018 MICROSURGICAL SURGERY REQUIRING MICROSCOPE LISTED SEPARATELY performed by Ronak Khoury MD at [place] [facility] REMOVE STOMACH, TOTAL N/A 08/02/2023 GASTRECTOMY TOTAL WITH ESOPHAGOENTEROSTOMY performed by Praveen Edmonds MD at [place] [facility] SPINAL FLUID TAP FOR DRAINAGE Left 03/15/2018 SPINAL PUNCTURE DRAINAGE CSF performed by Ronak Khoury MD at [place] [facility] FAMILY HISTORY: Family History Problem Relation Age of Onset No Past Hx Mother Stroke Father No Past Hx Son No Past Hx Unknown SOCIAL HISTORY: Social History Tobacco Use Smoking status: Former Types: Cigars Smokeless tobacco: Never Tobacco comments: Very infrequently Vaping Use Vaping Use: Never used Substance Use Topics Alcohol use: Yes Alcohol/week: 5.0 standard drinks of alcohol Types: 5 12 oz of beer per week Comment: social Drug use: Not Currently Types: Marijuana Comment: infrequently ROS: Review of systems otherwise negative. PHYSICAL EXAMINATION: Most Recent Vital Signs: BP: 137 mmHg/88 mmHg (09/27/23 1240) Pulse: 63 (09/27/23 1240) Temp: 36.67 C (09/27/23 1146) Temp Summary: Temp Min: 35.8 C (96.4 F) Max: 36.7 C (98 F) SpO2: 98 % (09/27/231239) O2 flow rate: 0 L/MIN (09/27/231239) Supplemental O2 Delivery: Room Air, None (09/27/231239) Vital Signs Last 24 Hours: Systolic BP: Most Recent Systolic BP Av mmHg Min: 122 mmHg Max: 142 mmHg Temperature: Most Recent Temperature Av.3 C Min: 35.78 C Max: 36.67 C Pulse: Pulse Av.2 Min: 63 Max: 75 Respirations: Resp Av.1 Min: 15 Max: 18 SpO2: SpO2 Av.4 % Min: 98 % Max: 99 % Constitutional: no acute distress CV: normal rate Chest: normal respiratory effort Abdomen: soft, no tenderness HEIGHT: 5' 11" WEIGHT ON ADMISSION: 57.6kg BMI: 17.72 IDEAL BODY WEIGHT: 70.5kg, based on BMI of 21.7 CURRENT ORAL INTAKE: NPO CURRENT NUTRITION SUPPORT: none ENTERAL ACCESS: none VENOUS ACCESS: peripheral IV LABS: Labs reviewed ASSESSMENT: Edward Yoder is a pleasant 58 year old male who has been assessed by the nutritionsupport team for the evaluation of protein calorie malnutrition. Estimated calorie needs: 6689-9853 Kcal based on 30-35 Kcal of ABW. Estimated protein needs: 74-86 gm based on 1.3-1.5 grams/kg ABW. RECOMMENDATIONS: Recommended nutritional support: tube feeding. #Nutrition Support #Severe Malnutrition #Unintentional Weight Loss Patient is not appropriate for parenteral nutrition as plan to have nasoenteric tube placement today Please start enteral feeds per chairman & ceo recommendations If enteral and oral nutrition not possible for patient and he is to remain NPO >5 days would recommend starting parenteral nutrition Maintain accurate intake and output Weights qAM Please advance diet as tolerated and as appropriate Labs ordered: vitamin A, vitamin D, vitamin E, vitamin K, vitamin B1, folate, vitamin B12, MMA, copper, zinc Recommend to start thiamine 100 mg IV daily Recommend to give one time B12 injection this admission as level suboptimal <500 Message to be sent to schedulers to schedule NWM outpatient follow up appointment #Persistent Nausea On antiemetics as needed #Hypomagnesemia Unable to place magnesium in the PPN, continue to bolus as needed for a goal level >2 #Vitamin D insufficiency Level of 24, checked 09/2023 Recommend to start Vitamin D 2,000iU daily when diet advanced #Iron deficiency anemia Ferritin level of 185, checked 07/2023 Consider recheck iron panel and ferritin and starting iron supplementation as needed as outpatient #Siewert III gastric cancer #s/p total gastrectomy with Trevin-en-Y esophagojejunostomy c/b EJ anastomotic abscess Patient is NPO Plan to initiate tube feeds today following nasoenteric tube placement Thank you for the consult. We will follow the patient along with you. Patient's care, including parenteral nutrition, was discussed today with the pharmacist, clinical nutrition, nutrition and weightmanagement staff. The recommendations noted above are a result of this discussion. The patient was discussed with Dr. Coffey . Vy Martin MD Associated attestation - Summer Coffey MD - 09/27/2023 7:43 PM EST I have discussed the patient's management with the medical trainee and agree with the note. Please refer to the documented findings and plan of care. This patient's visit today consisted of an evaluation. I was present and confirmed the findings of the history and exam. Summer Coffey MD * Jeyson Brock DO - 09/27/2023 7:35 AM ESTAssociated Order(s): GASTROENTEROLOGY CONSULT IP Images from the original note were not included. 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 Patient was recently admitted to [facility] from 09/02/2023- 09/05/[address] [facility] due toabdominal pain, nausea, and diarrhea with CT evidence of a 5 cm abscess near the anastomotic site. During hospitalization, he was started on IV Zosyn and transitioned to p.o. Augmentin and was clinically improving at which point he was discharged. Patient states that he has nausea and clear phlegm emesis for the past 3 days and has not had oral intake during this time. Following his recent hospitalization, he did admit to tolerating his diet. Denies any current dysphagia or odynophagia. Denies any abdominal pain, fever, chills, diarrhea, constipation, or overt signs of GI bleeding. He states that he was previously able to tolerate 3-4 smaller meals a day which consisted of fruit, cereal, and small bites of a sandwich is. Denies anyantiplatelet or anticoagulant use. States he had 4 cycles of chemotherapy in his last cycle was June of 2023. HISTORY: Past Medical History: Past Medical History: Diagnosis [...] performed by Homar Blair MD at ENDOSCOPY [facility] EGD, FLEXIBLE, DIAGNOSTIC 03/30/2023 ESOPHAGOGASTRODUODENOSCOPY (EGD), FLEXIBLE, TRANSORAL, DIAGNOSTIC performed by Homar Blair MD at ENDOSCOPY [facility] EGD, W/ENDOSCOPIC US N/A 04/01/2023 ESOPHAGOGASTRODUODENOSCOPY (EGD), FLEXIBLE, TRANSORAL, ENDOSCOPIC ULTRASOUND performed by Karson Greco MD at [place] [facility] EXPLORE/DECOMPRESS CRANIAL NERVES Left 03/15/2018 CRANIECTOMY SUBOCCIPITAL EXPLORATION CRANIAL NERVES performed by Ronak Khoury MD at OR [facility] INSER TUNN ACC DEV;5 YRS/OLDER Right 04/19/2023 INSERT TUNNELED CENTRAL VENOUS ACCESS WITH SUBQ PORT performed by Ophelia Brown DO at OR [facility] MICROSURGERY ADD-ON Left 03/15/2018 MICROSURGICAL SURGERY REQUIRING MICROSCOPE LISTED SEPARATELY performed by Ronak Khoury MD at OR [facility] REMOVE STOMACH, TOTAL N/A 08/02/2023 GASTRECTOMY TOTAL WITH ESOPHAGOENTEROSTOMY performed by Praveen Edmonds MD at [place] [facility] SPINAL FLUID TAP FOR DRAINAGE Left 03/15/2018 SPINAL PUNCTURE DRAINAGE CSF performed by Ronak Khoury MD at [place] [facility] Social History: Social History Tobacco Use Smoking status: Former Types: Cigars Smokeless tobacco: Never Tobacco comments: Very infrequently Vaping Use Vaping Use: Never used Substance Use Topics Alcohol use: Yes Alcohol/week: 5.0 standard drinks of alcohol Types: 5 12 oz of beer per week Comment: social Drug use: Not Currently Types: Marijuana Comment: infrequently Family History: Family History Problem Relation Age of Onset No Past Hx Mother Stroke Father No Past Hx Son No Past Hx Unknown Allergies: Tegretol [carbamazepine] ROS: As noted in HPI. Rest negative. PHYSICAL EXAMINATION: Most Recent Vital Signs: BP: 122 mmHg/85 mmHg (09/27/23399) Pulse: 63 (09/27/23399) Temp: 36.22 C (09/27/23399) Temp Summary: Temp Min: 35.8 C (96.4 F) Max: 36.2 C (97.2 F) SpO2: 98 % (09/27/23399) O2 flow rate: 0 L/MIN (09/26/23 9533) Supplemental O2 Delivery: Room Air, None (09/27/23399) Vital Signs Last 24 Hours: Systolic BP: Most Recent Systolic BP Av.5 mmHg Min: 122 mmHg Max: 123 mmHg Temperature: Most Recent Temperature Av C Min: 35.78 C Max: 36.22 C Pulse: Pulse Av.5 Min: 63 Max: 66 Respirations: Resp Av.7 Min: 17 Max: 18 SpO2: SpO2 Av.3 % Min: 98 % Max: 99 % General: ill-appearing male, AAOx3, Body mass index is 17.71 kg/m. HEENT: NCAT. EOMI, moist oral mucosa CV: S1S2+, regular rate Resp: symmetric chest expansion, no accessory muscle usage GI: non-distended, +nl bowel sounds, soft, non-tender MSK: no edema, dry/warm skin Neuro: AAO x3, grossly normal, interactive Psych: normal mood and affect LABS: Latest Reference Range & Units 09/27/23 01:21 WBC 4.00 - 10.80 K/uL 5.47 HGB 14.0 - 16.8 g/dL 11.1 (L) HCT 40.0 - 48.4 % 34.0 (L) MCV 82.0 - 99.5 fL 89.0 PLT 140 - 400 K/uL 224 (L): Data is abnormally low Latest Reference Range & Units 09/27/23 01:21 Sodium 135 - 146 mmol/L 139 Potassium 3.5 - 5.1 mmol/L 3.7 Chloride 98 - 107 mmol/L 103 CO2 22 - 32 mmol/L 25 BUN 6 - 20 mg/dL 6 Creatinine 0.6 - 1.2 mg/dL 0.6 Estimated Glomerular Filtration Rate >=60 mL/min >90 Anion Gap 7 - 15 mmol/L 11 Glucose 70 - 120 mg/dL 113 Calcium 8.4 - 10.2 mg/dL 9.2 Magnesium 1.5 - 2.6 mg/dL 1.6 Phosphorus 2.5 - 4.8 mg/dL 4.1 Lactate 0.4 - 2.0 mmol/L 0.8 IMAGING: CT Abd/Pelvis OSH 09/02/2023: IMPRESSION: 1. Postoperative changes compatible with recent gastrectomy with esophageal enteric anastomosis. 2. There is wall thickening at the anastomotic site with adjacent inflammatory stranding. Additionally, there is a 5 cm peripherally enhancing air and fluid filled collection abutting the proximal anastomosis suggestive of a abscess/contained perforation which may include a fistula versus sinus tract. 3. Trace pericardial and left pleural effusions with mild left basilar atelectasis. 4. No bowel obstruction or pneumoperitoneum. 5. Mild wall thickening of the splenic flexure is likely reactive. A communicating sinus tract withthe adjacent fluid collection would be difficult to exclude. SURGICAL PATHOLOGY 08/02/2023: Final Diagnosis A: Esophagus (staple line drake [...] D: Anastomotic rings, excision: -Negative for tumor. ENDOSCOPY: EGD 06/20/2023: EGD 04/01/2023: Impression: 57 yrs old male with dysphagia and anemia, recent EGD 2 days back (03/30/23) showed a partially obstructing GE junction/gastric cardia mass traversed by downsizing to XP endoscope, biopsied with microforceps as high grade dysplasia. Patient presents today for EGD for repeat sampling biopsy,esophageal stent placement with endosuture anchor for dysphagia, EUS for staging and EUS- guided fiducial placement: - A 12 cm long Siewert class 3, partially circumferential, partially obstructing and bleeding mass was found in the gastroesophageal junction. This was staged T3 (based on invasion into) N1 Mx by endosonographic criteria. The staging applies if malignancy is confirmed. - A few abnormal lymph nodes were visualized in the gastrohepatic ligament (level 18). These could not be sampled as they were behind the primary tumor. EGD 04/01/2023: Impression: 57 yrs old male with dysphagia and anemia, recent EGD 2 days back (03/30/23) showed a partially obstructing GE junction/gastric cardia mass traversed by downsizing to XP endoscope, biopsied with microforceps as high grade dysplasia. Patient presents today for EGD for repeat sampling biopsy,esophageal stent placement with endosuture anchor for dysphagia, EUS for staging and potentially EUS-guided fiducial placement: - Partially obstructing, 12 cm long, Siewert type 3, likely malignant esophageal tumor was found at the gastroesophageal junction. Biopsied. - Successful placement of 23 mm x 15.5 cm WallFlex fully covered esophageal stent under endoscopic and fluoroscopic guidance. - Endoscopic suturing performed to reduce risk of stent migration. A. Gastroesophageal junction mass, biopsy: Invasive adenocarcinoma HER2 Interpretation Her-2/michele expression is equivocal (score 2+) to be confirmed by FISH Note: This biopsy material appears superficial with limited invasive tumor cells available for [id number]. The HER2 assay might be repeated if more material becomes available on resection specimen. Reference ranges (membrane staining intensity): 0 Negative (No staining or membrane staining in <10% of invasive tumor cells) 1+ Negative (Faint/barely perceptible membrane staining in >10% of invasive tumor cells) 2+ Equivocal (Weak to moderate complete/basolateral membrane staining in >10% of invasive tumor cells) 3+ Positive (Moderate to strong complete or basolateral membrane staining in >10% of invasive tumor cells in resection specimen or any tumor cell cluster in biopsy specimen) Method: Immunohistochemical pathologic evaluation of this paraffin embedded invasive tumor has beenperformed on tissue block with 4B5 antibody for HER2 oncoprotein expression. Assay control immunoreactivity is appropriate. Colonoscopy 03/30/2023: Impression: - The examined portion of the ileum was normal. - One 7 mm polyp in the sigmoid colon, removed with a hot snare. Resected and retrieved. - Diverticulosis in the sigmoid colon. - Internal hemorrhoids. - The examination was otherwise normal on direct and retroflexion views. EGD 03/30/2023: Findings & Specimens: A large, fungating mass with bleeding and stigmata of recent bleeding was found in the distal esophagus, 38 cm from the incisors and extending into the cardia. The mass was partially obstructing and circumferential. Biopsies were taken with a cold forceps for histology. The pathology specimenwas placed into Bottle Number 1. No other significant abnormalities were identified in a careful examination of the stomach. The examined duodenum was normal. Impression: - Partially obstructing esophageal tumor was found in the distal esophagus. Biopsied. - Normal examined duodenum. A. Esophageal mass, biopsy: -- Superficial biopsies of cardia-type gastric mucosa and papillary fronds of high-grade dysplasia with tripolar mitotic figures. -- See comment. B. Colon, sigmoid, polypectomy: -- Tubular adenoma. Comment: We reviewed the endoscopic images, and in the context of the histopathology this large obstructing esophageal mass is most likely superficially sampled adenocarcinoma. Due to the superficialnature of the biopsy, additional tissue sampling may be required to perform molecular and HER2 testing. 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 RECOMMENDATIONS: - EGD today with placement of naso-enteral feeding tube. - Maintain NPO - IV antiemetics as needed. - Agree with GI nutrition for short-term parenteral nutrition - Monitor for signs of refeeding syndrome and replete hypokalemia, hypomagnesemia, & hypophosphatemia if present. - Repeat Colonoscopy in 2025 I have discussed the case with my attending, Dr Garza. Associated attestation - Domonique Garza MD - 09/27/2023 11:18 AM EST Attending Attestation: I have discussed the patient's management with the medical trainee and agree with the note. Please refer to the documented findings and plan of care. The patient's bedside service today consisted of an evaluation. I was present and confirmed the findings of the history and exam. documented in this encounter Nursing Notes * Tristan Peck RN - 09/27/2023 2:14 PM EST DISCHARGE PROGRESS NOTE - [place] [facility] [address] Name: Edward Yoder Location: [facility] HFAM/Endo Date: 09/27/2023 Time: 2:15 PM Patient is discharged under the care of : Patient transport Report called to Inpatient unit Raciel BARILLAS RN. Means of transportation: bed Bronchoscopy: N/A Oxygen support: N/A * Tristan Peck RN - 09/27/2023 2:11 PM EST Patient sitting up in stretcher. Alert and oriented. Seen by anesthesia, may be discharged back to the inpatient unit. Per verbal order, the physician has examined the patient, prescribed and verified the charted medication, and certified that he is recovered and may return to the nursing batres. * Nico Crane RN - 09/27/2023 1:38 PM EST Procedure being completed under general anesthesia. Please see anesthesia record for medications and vital signs. * Sandy Flower RN - 09/26/2023 10:32 PM EST Dual Licensed Skin Assessment completed by Meena Santiago and Vanessa Araya. The patient is/has a N/A Skin Breakdown (includes non blanchable erythema): No Healing midline from previous surgery documented in this encounter Miscellaneous Notes * Ancillary Progress Note - Liz Stanley RN - 09/29/2023 10:33 AM EST CARE MANAGEMENT - ADULT DISCHARGE NOTE [facility] [address] Name: Edward Yoder Location: [facility] B641/[id number] Date: 09/29/2023 Time: 10:34 AM The following coordination of care and discharge plan has been coordinated with the care team, patient, family and/or caregiver according to the patients needs and preferences. Discharge Discharge Second Notice Important Message from Medicare delivered: Not Applicable (09/29/231032) Was Caregiver/Family/Facility contacted regarding discharge: Yes (09/29/231032) Discharge Transportation: Family/Friends drive (09/29/231032) Date of scheduled discharge transportation: 09/29/23 (09/29/231032) Time of scheduled discharge transportation: (afternoon) (09/29/231032) Patient declined post-hospital transition of care recommendation: N/A (09/29/231032) Home Medical Care - Admitted Since 09/26/2023 Service Provider Selected Services Address Phone Fax Patient Preferred Last Updated [facility] [address] [place] [id number] [phone] -- Liz Stanley RN 09/28/2023 1156 Narrative: 0830 Pt discussed ruing IDT rounds with attending service. As per the attending service the pt is medically ready for discharge to home today with tube feeds. 0900 CM sent a text message to Lashell Canela that the pt is a confirmed discharge and what time will the tube feeds be deliver? As per Rola between 4-5 pm today. 0824 CM called and spoke with Landry Alavrez regarding delivery of tube feeds today. As per Kim they do not have a nurse to go out this evening to see the pt. Can [facility] still deliver his tube feeds today? CM sent a text message to Lashell Canela regarding delivery of tube feeds today. As per Jacob can be delivered today. 0930 CM called and spoke with Landry Alvarez. This CM updated Kim that the tube feeds will be delivered today. As per Kim they can see him tomorrow at noon and could this CM faxedher the clinical information as they do not have ARDEN. 1001 CM sent a TT to LIZET Fairbanks to please fax the clinical information to Landry Haddad for the above pt. As per Tiki sure. 1004 CM sent a TT to CHAVO Muniz, general surgery regarding an update with and Lashell. 1004 CM met with the pt at the bedside regarding Lashell's delivery of tube feeds and supplies today and Landry MOLINA Tuesday at noon. As per the pt he wants to go home today and start his tube feeds tomorrow. 1010 CM sent a TT to Quoc regarding that this CM spoke with the pt and he wants to go home. As perChung he will be able to be discharged to home today and start tube feeds tomorrow. CM met with the pt at the bedside regarding dicharge to home today. As per the pt his will be picking him up and he has support at home. * Progress Notes - Non-Billable - Quoc Lee-CHAVO Solo - 09/29/2023 8:50 AM EST PROGRESS NOTE - General Surgery Discharge Transition [facility] [address] Name: Edward Yoder Location: [facility] B641/B Date: 09/29/2023 Time: 8:50 AM Admitting Diagnosis: PO intolerance PROCEDURE: 09/27/23 EGD w/ NJ tube placement Estimated Discharge Date: 09/29/2023 Subjective: Pt was resting in bed comfortably. Tolerated goal TF. Incisional pain controlled. Ambulating. Voiding without difficulty. Review of Systems: Constitutional: (-) fever chills sweats or weight loss Abdominal/GI: (-) negative: no pain, heartburn, dysphagia, bleeding, change in bowel habits, nauseaor vomiting Most Recent Vital Signs: BP: 125 mmHg/79 mmHg (09/29/23744) Pulse: 64 (09/29/23744) Temp: 36.5 C (09/29/23744) Temp Summary: Temp Min: 36 C (96.8 F) Max: 37.1 C (98.8 F) SpO2: 98 % (09/29/23744) O2 flow rate: 0 L/MIN (09/28/23 1421) Supplemental O2 Delivery: Room Air, None (09/29/23744) Constitutional: no acute distress HEENT: NJ tube in place Abdomen: soft, no tenderness, nondistended Surgical site: incision healing well Right mediport in place. Lab and Radiology: Pending results: No results pending Discharge Preparation: Consultation: No pending consultations to be completed Discharge Medication Plans: Pain Management: resume DEER FARMER morphine liquid DVT Needs: None GI: resume DEER FARMER meds Antibiotics: None Stool Softener: None Anticipated Diet at Discharge: NJ TF, FLD w/ protein shakes as tolerated Disposition / Needs Post Discharge: Home Return Appointments Planned: Surgeon in 2 weeks. Dietitian in 2 weeks Per Surg onc, no concern with wbc 12.17. Reviewed d/c instructions with patient and answered questions patient had. Patient showed understanding and agreed to call if there is any concern. CHAVO Pelaez 09/29/2023 8:51 AM [facility] supplies around 4-5pm today and HH will see pt tomorrow morning. Per CM. Pt wanst to go home today. Will dc home today. CHAVO Pelaez 09/29/2023 10:15am Emend copay is $155.32. per pharmacy associate, pt said he can not afford it so will not be picking it up. 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 NGD w/ NJ tube placement 09/27/23 Diet: Clear Liquid Oral Nutrition Supplement (ONS): Boost Breeze (1 cup provides 250 calories, 9 grams protein, 54 grams carbohydrate) TID Enteral Nutrition Support: Peptamen 1.5 at 55 mL/hr -1980 Kcals, 89 gm protein and 1016 mL free water Chart reviewed for pertinent nutrition information. Noted plan for patient to discharge home. Currently feeds running continuously, recommend transition to a cycle feed for home. Patient's oral intake still very limited tube feeds will meet >75% of estimated needs at home. Should follow with dietitian as an outpatient to help manage enteral feeds with diet. Nutrition Prescription: Energy needs: 30-35 Kcal/kg Based on admission weight Kcal/day: 0849-3991 Protein needs: 1.3-1.5 gm/kg Based on admission weight gm/day: 74-86 Fluid needs: 30 ml/kg Based on admission weight mL/day: 1728 NUTRITION INTERVENTION/PLAN: Continue to monitor nutrition support Clinical Nutrition Recommendations: Diet: Advance diet when clinically feasible Cycle feeds for home Peptamen 1.5 at 85 mL/hr x ~12 hr goal volume 1000mL -1500 Kcals, 68 gm protein and 770 mL free water *will meet ~75% of estimated energy needs and >75% of estimated protein needs Teresa [facility] Clinical Nutrition Services Andrew Text / x [phone] * Care Plan - Rowdy Gaytan RN - 09/29/2023 6:37 AM EST Problem: Safety & Risk for Injury Goal: Patient will remain free from injury. Outcome: Progressing Clinical Goal(s): Pt safety (09/28/23 2300) Possible barriers to meeting goal(s)/advancing plan of care: None Stability of the patient: Moderately stable - low risk of patient condition declining or worsening Summary regarding today's goal(s): Met: Recommendations: Pt remain safe overnight. Tolerating his current diet. Continue follow safety protocols. * Progress Notes - Non-Billable - Chinmay Lee CRNP - 09/28/2023 11:36 AM EST PROGRESS NOTE - General Surgery Discharge Transition [facility] [address] Name: Edward Yoder Location: [facility] B641/B Date: 09/28/2023 Time: 11:36 AM Admitting Diagnosis: PO intolerance PROCEDURE: 09/27/23 EGD w/ NJ tube placement Estimated Discharge Date: TBD Subjective: Pt was resting in bed comfortably. Has not started NJ TF. Incisional pain controlled. DEER FARMER on liquid morphine 5mg prn. Ambulating. Voiding without difficulty. Review of Systems: Constitutional: (-) fever chills sweats or weight loss Abdominal/GI: (-) negative: no pain, heartburn, dysphagia, bleeding, change in bowel habits, nauseaor vomiting Most Recent Vital Signs: BP: 116 mmHg/75 mmHg (09/28/23 1100) Pulse: 71 (09/28/23 1100) Temp: 36.72 C (09/28/23 1100) Temp Summary: Temp Min: 36.2 C (97.2 F) Max: 37 C (98.6 F) SpO2: 97 % (09/28/23 1100) O2 flow rate: 0 L/MIN (09/27/23 5343) Supplemental O2 Delivery: Room Air, None (09/28/23 0332) Constitutional: no acute distress HEENT: NJ tube in place Abdomen: soft, no tenderness, nondistended Surgical site: incision healing well Lab and Radiology: Pending results: No results pending Discharge Preparation: Consultation: No pending consultations to be completed Discharge Medication Plans: Pain Management: resume DEER FARMER morphine liquid DVT Needs: None GI: resume DEER FARMER meds Antibiotics: None Stool Softener: None Anticipated Diet at Discharge: NJ TF Disposition / Needs Post Discharge: Home Return Appointments Planned: Surgeon in 2 weeks Will follow up for discharge planning. CHAVO Pelaez 09/28/2023 11:39am * Ancillary Progress Note - Liz Stanley RN - 09/28/2023 11:08 AM EST HOME HEALTH/HOSPICE REFERRAL FORM CARE MANAGEMENT [address] [address] Phone: Fax: Referred By: Liz Stanley RN Admission Date: 09/26/2023 Discharge Date: Discharge Time: TBD Start Date: 24-48 hours after discharge to home Agency Referred To: [facility] PATIENT INFORMATION: Name: Edward Yoder Address: [address] [place] [address] : 1965 Phone: There is no home phone number on file. SSN: [id number] County: [place] Caregiver Name: Jg Salvador Relationship: Emergency Contacts: Extended Emergency Contact Information Primary Emergency Contact: JG SALVADOR Address: [address] [place] [address] Mobile Relation: Spouse Preferred language: Gibraltarian Assistant Professor Of Spanish needed? No Secondary Emergency Contact: Cindy Thomas Address: [address] [place] [address] [facility] Mobile Relation: Sibling Preferred language: Gibraltarian Assistant Professor Of Spanish needed? No MEDICAL INFORMATION: Principal Diagnosis: weakness Other Diagnosis: See attached History and Physical Surgery and Dates: Past Surgical History: Procedure Laterality Date COLONOSCOPY, DIAGNOSTIC (RECTUM) 03/30/2023 COLONOSCOPY FLEXIBLE PROXIMAL DIAGNOSTIC performed by Homar Blair MD at ENDOSCOPY [facility] EGD, FLEXIBLE, DIAGNOSTIC 03/30/2023 ESOPHAGOGASTRODUODENOSCOPY (EGD), FLEXIBLE, TRANSORAL, DIAGNOSTIC performed by Homar Blair MD at ENDOSCOPY [facility] EGD, W/ENDOSCOPIC US N/A 04/01/2023 ESOPHAGOGASTRODUODENOSCOPY (EGD), FLEXIBLE, TRANSORAL, ENDOSCOPIC ULTRASOUND performed by Karson Greco MD at [place] [facility] EXPLORE/DECOMPRESS CRANIAL NERVES Left 03/15/2018 CRANIECTOMY SUBOCCIPITAL EXPLORATION CRANIAL NERVES performed by Ronak Khoury MD at [place] [facility] INSER TUNN ACC DEV;5 YRS/OLDER Right 04/19/2023 INSERT TUNNELED CENTRAL VENOUS ACCESS WITH SUBQ PORT performed by Ophelia Brown DO at OR [facility] MICROSURGERY ADD-ON Left 03/15/2018 MICROSURGICAL SURGERY REQUIRING MICROSCOPE LISTED SEPARATELY performed by Ronak Khoury MD at [facility] REMOVE STOMACH, TOTAL N/A 08/02/2023 GASTRECTOMY TOTAL WITH ESOPHAGOENTEROSTOMY performed by Praveen Edmonds MD at [facility] SPINAL FLUID TAP FOR DRAINAGE Left 03/15/2018 SPINAL PUNCTURE DRAINAGE CSF performed by Ronak Khoury MD at [facility] Diet: Adults: As tolerated Allergies: Tegretol [carbamazepine] Isolation Type: None Activity Restrictions: Activity as tolerated Isolation For: None HOME CARE ORDERS: (Discipline and Frequency): shelter Overall health assessment and vital signs Medication management and education Medications Dose, Frequency, & Route: see pt's discharge summary Equipment and Supplies: N/A Ordering Physician and Contact Information: Praveen Edmonds MD Comments: PCP: PCP: OPHELIA SOLIS [address] [place], [place] [id number] D/C Physician: Praveen Edmonds MD Insurance: See attached facesheet. * Ancillary Progress Note - Liz Stanley RN - 09/28/2023 11:01 AM EST CARE MANAGEMENT - ADULT INITIAL SCREENING [address] [address] Name: Edward Yoder Location[place] [facility] B641/B Date: 09/28/2023 Time: 11:02 AM Discussed patient with the interdisciplinary care team. This Straddle Bug Driver performed a chart review and met with pt at bedside to complete admission screen and assessed needs for transition planning. The personal caregiver role and services were explained and emotional support was provided. Chief Complaint: No chief complaint on file. Prior Living Arrangements What was your living situation prior to admission/observation?: Independently;With Spouse () Living Quarters: House (09/28/231058) Number of steps to enter living quarters:: 3 (09/28/231058) Do you have serious difficulty walking or climbing stairs? (5 years old or older): No (09/26/232208) History of falling: No (09/28/23 08) Prior Level of Functioning Describe the patient's ability prior to admission/observation to perform ADLs: Performs independently (09/28/231058) Describe the patient's mobility status prior to admission: Patient ambulates independently;Patient can sit up in bed;Patient is able to sit on bedside (09/28/231058) Patient uses assistive device: No (09/26/232208) Caregiver Information Patient Contacts Name Relation Home Work Mobile JG SALVADOR Spouse [phone] Cindy Thomas Sibling [phone] Fabricio Yoder Sibling [phone] Risk Stratification/Psychosocial/Care Gaps Risk Stratification Psycho Social / Medical Concerns Identified: Adjustment to illness/injury (09/28/231058) Accessed Neighborly to connect patients to social care resources: No (09/28/231058) OBRA or OPTIONS needed for placement: No (09/28/231058) Readmission Risk Score: 23.84 (09/28/23 0801) AM-PAC Score With Stairs : 23 (09/27/231999) Prior to Admission Services Services Prior to Admission DEER FARMER Services (Services received within the last 30 days with exception, Psych within last two years): N/A (09/28/231058) [place] Dept. of Aging (PDA) Waiver Program: N/A (09/28/231058) DEER FARMER Transportation (Services received within the last 30 days): Patient drives self (09/28/231058) Outpatient Straddle Bug Driver: No care business team leader to display Patient/Family Expectations: Pt lives in a one story home with his spouse, Jg. Pt has 3 steps to enter his home and as per the pt he does not have any difficulty with steps. The pt does not have ant DME or home O2 in his home. As per the pt he is independent, drives and has support. The pt did not have a prior SNF stay or HH services. CM discussed discharge planning with the pt regarding new tube feeds. Pt provided a Repisodic list for HH. As per the pt his preferences is [facility] Hadd[facility] and [facility] for tube feeds. CM sent a TT to [facility] Lopez, regarding a new referral for tube feeds with a potential discharge top home tomorrow. ARDEN opened for [facility]ry Haddad 1121 CM spoke with Landry Alvarez, regarding a new referral. As per Kim they can accept and offer a SOC for tomorrow at 2:00 pm pending set up of tube feeds. CM met with pt at bedside regarding an update with HH. This CM updated the pt that Landry Haddad can accept and offer a SOC tomorrow at 2:00 pm pending medical stability and set up of tube feeds. Ptok with a change in who provides his tube feeds R/T to insurance and HH. 1200 CM sent a text message to Lashell Canela regarding a new referral for tube feeds. CM faxed script and clinical information to [facility]. Further further screening information, please refer to the Care Management flow document. * Communication - Jeyson Brock DO - 09/27/2023 3:42 PM EST Brief GI Communication EGD 09/27/2023: Impression: - An esophago-jejunal anastomosis was found. - Normal examined jejunum. - Feeding tube placement was successfully performed. - No specimens collected. - All instruments are visually inspected immediately before and after removal from the patient to ensure they are fully intact. Recommendations: - Follow RD recommendations for TF regimen - Further recommendations from today's progress note. GI will remain available. Feel free to reach out with any questions. Thank you for allowing us to participate in the care for this patient. * Care Plan - Sandy Flower RN - 09/27/2023 4:11 AM EST Clinical Goal(s): pt will remain free from falls/injuries (09/26/23 4491) Possible barriers to meeting goal(s)/advancing plan of care: weakness and decreased PO intake Stability of the patient: Moderately unstable - medium risk of patient condition declining or worsening Summary regarding today's goal(s): Met: pt remained free from falls/injuries Recommendations: reinforce use of call das if assistance is needed, use nonskid footwear, and keepfloor free of clutter * Respiratory Progress Note - Alba Penaloza CRT - 09/26/2023 11:54 PM EST PATIENT DRIVEN PROTOCOL - Respiratory Care Services [facility] [address] Name: Edward Yoder Location: [facility] B641/B Date: 09/26/2023 Time: 11:54 PM Patient Driven Protocol Summary: Initial evaluation performed. This Treatment Plan and medications will be reviewed by the Primary Care Team for any contraindications. Respiratory Care Treatment Plan Pulmonary Volume Expansion Therapy: Incentive Spirometry PRN to prevent or treat alveolar consolidation and atelectasis. . Secretion Management Treatment: Flutter TherapyPRN to enhance mobilization of secretions and prevent or treat alveolar consolidation and atelectasis. . The patient will be re-evaluated: No re-evaluation needed. Indications for treatment met. The Triage Level is: (Assessment Score = 0 - 5) Level 5. Triage Level Definitions: Level 1 Severe Respiratory/Airway [...] Status: 0 - No History Surgical Status: 0 - No Surgical History Chest X-Ray: 0 - Not Performed or performed greater than 3 days ago Assessment Score: 0 Patient Assessment Clinical Findings Respiratory Pattern: 0 - RR 12 - 20; Patient only gets breathless with strenuous exercise. Breath Sounds: 0 - Clear to auscultation Cough Effectiveness: 0 - Strong non-productive Sputum Production: 0 - No sputum production Level of Activity: 1 - Ambulatory with assist O2 needed to keep SpO2 greater than or equal to 92%: 0 - Room Air Assessment Score: 1 Total Assessment Score: 1 Breath Sounds: Inspiratory and expiratory clear bilaterally.. Cough and Sputum: No cough was present.. CXR: none performed. Vital Signs: Resp: 17 (09/26/232352) Pulse: 66 (09/26/232204) Temp: 35.8 C (96.4 F) (09/26/232204) BP: 123/88 (09/26/232204) SpO2: 98 % (09/26/232352) PFT: Minimal Predicted IC: 1.14 L. Inspiratory capacity: 2.0L. Primary Service: Surgery Blue. Admitting Diagnosis: Weakness [R53.1] S/P gastrectomy [Z90.3] Pulmonary Diagnosis: none documented and patient denies any pulmonary diagnosis . documented in this encounter Plan of Treatment Upcoming Encounters Date Type Department Care Team (Late st Contact Info) Description 10/05/2023 8:15 AM EST Office Visit Hematology/Oncology [facility] [address] [place] [address] Cipriano Kuhn MD [address] [place] [address] 10/11/2023 11:40 AM EST Nutrition Services Nutrition & Weight Management, [place] [address] [phone] Alyssa Varela RDN [address], [place] [phone] 10/17/2023 9:20 AM EST Office Visit General Surgery, [place] [address], [place] [phone] Praveen Edmonds MD [address], [place] [phone] Pending Results Name Type Priority Associated Diagnoses Date /Time VITAMIN B1 (THIAMINE), BLOOD, LC/MS/MS Lab Routine 09/27/2023 9:05 AM EST Scheduled Orders Name Type Priority Associated Diagnoses Orde r Schedule VITAMIN B1 (THIAMINE), BLOOD, LC/MS/MS Lab Add-on One Time for 1 O ccurrences starting 09/27/2023 until 09/27/2023 Scheduled Procedures Name Priority Associated Diagnoses Date/Ti [...] encounter Medical Devices Implanted Type Area Director Part Device Identifier Shelf Expiration Date Model / Serial / Lot Cement Hydroset Injectable 5cc - [id number] Implanted:Qty : 1 on 03/15/2018 by Ronak Khoury MD at [place] [facility] Left: Head JOHN 11/09/2019 [id number] / / [id number] Stent Wallf Esoph [id number] - [id number] Implanted:Qty : 1 on 04/01/2023 by Karson Goddard MD at [facility] N/A: Esophagus [employer] : ENDOSCOPY [id number] 09/09/2024 [id number] / / [id number] Power Port 8fr Sngl Lumen Plas - [id number] Implanted:Qty : 1 on 04/19/2023 by Ophelia Brown DO at OR [facility] Right: Chest CR BARD : PERIPHERAL VASCULAR [id number] 06/14/2024 [id number] / / [id number] documented as of this encounter Procedures Procedure Name Priority Date/Time Associated Diagnosis Comments CALCIUM, IONIZED, WHOLE BLOOD Routine 09/29/2023 7:37 AM EST BASIC METABOLIC PANEL Routine 09/29/2023 7:36 AM EST PHOSPHORUS Routine 09/29/2023 7:36 AM EST CBC Routine 09/29/2023 7:36 AM EST MAGNESIUM Routine 09/29/2023 7:36 AM EST BASIC METABOLIC PANEL Routine 09/28/2023 7:42 AM EST PHOSPHORUS Routine 09/28/2023 7:42 AM EST CALCIUM, IONIZED, WHOLE BLOOD Routine 09/28/2023 7:42 AM EST CBC Routine 09/28/2023 7:42 AM EST MAGNESIUM Routine 09/28/2023 7:42 AM EST UPPER GI ENDOSCOPY 09/27/2023 12 :45 PM EST VITAMIN A (RETINOL) Routine 09/27/2023 9:05 AM EST VITAMIN E (TOCOPHEROL) Routine 9:05 AM EST ZINC Routine 09/27/2023 9:05 AM EST METHYLMALONIC ACID, SERUM Routine 09/27/2023 9:05 AM EST BASIC METABOLIC PANEL Routine 09/27/2023 9:05 AM EST PT INR STAT 09/27/2023 9:05 AM EST PHOSPHORUS Routine 09/27/2023 9:05 AM EST CALCIUM, IONIZED, WHOLE BLOOD Routine 09/27/2023 9:05 AM EST CBC Routine 09/27/2023 9:05 AM EST VITAMIN K Routine 09/27/2023 9:05 AM EST MAGNESIUM Routine 09/27/2023 9:05 AM EST COPPER, SERUM OR PLASMA Routine 09/27/2023 9:05 AM EST 25-HYDROXY VITAMIN D Add-on 09/27/2023 1:21 AM EST BASIC METABOLIC PANEL Routine 09/27/2023 1:21 AM EST TYPE AND SCREEN Routine 09/27/2023 1:21 AM EST FOLIC ACID Add-on 09/27/2023 1:21 AM EST PHOSPHORUS Routine 09/27/2023 1:21 AM EST LACTATE Routine 09/27/2023 1:21 AM EST CBC Routine 09/27/2023 1:21 AM EST TRIGLYCERIDES Add-on 09/27/2023 1:21 AM EST MAGNESIUM Routine 09/27/2023 1:21 AM EST VITAMIN B12 Add-on 09/27/2023 1:21 AM EST SARS-COV-2 (COVID-19), NAAT STAT 09/27/2023 12:54 AM EST documented in this encounter Results * CALCIUM, IONIZED, WHOLE BLOOD (09/29/2023 7:37 AM EST) Calcium, Ionized, Whole Blood 1.25 1.13 - 1.32 mmol/L 09/29/2023 7:50 AM EST LABORATORY [facility] Blood Venous blood specimen / Unknown Venipuncture / Unknown 09/29/2023 7:37 AM EST 09/29/2023 7:42 AM EST Vanessa Antony MD LAB BLOOD ORDERABLES LABORATORY [facility] [address] [place] [address] * PHOSPHORUS (09/29/2023 7:36 AM EST) Pathologist [facility] Phosphorus 2.6 2.5 - 4.8 mg/dL 09/29/2023 8:22 AM EST LABORATORY [facility] Blood Venous blood specimen / Unknown Venipuncture / Unknown 09/29/2023 7:36 AM EST 09/29/2023 7:43 AM EST Vanessa Antony MD LAB BLOOD ORDERABLES Performing Organization Address City/[facility]/ZIP Co de Phone Number LABORATORY [facility] [address] [place] [address] * MAGNESIUM (09/29/2023 7:36 AM EST) Pathologist [facility] Magnesium 2.1 1.5 - 2.6 mg/dL 09/29/2023 8:22 AM EST LABORATORY [facility] Blood Venous blood specimen / Unknown Venipuncture / Unknown 09/29/2023 7:36 AM EST 09/29/2023 7:43 AM EST Vanessa Antony MD LAB BLOOD ORDERABLES Performing Organization Address [facility] de Phone Number LABORATORY [facility] [address] [place] [address] * (ABNORMAL) CBC (09/29/2023 7:36 AM EST) Pathologist [facility] WBC 12.17(H) 4.00 - 10.80 K/uL 09/29/2023 7:51 AM EST [facility] RBC 3.64 4.50 - 5.25 M/uL 09/29/2023 7:51 AM EST [facility] HGB 10.8(L) 14.0 - 16.8 g/dL 09/29/2023 7:51 AM EST [facility] HCT 32.9(L) 40.0 - 48.4 % 09/29/2023 7:51 AM EST [facility] MCV 90.4 82.0 - 99.5 fL 09/29/2023 7:51 AM EST [facility] MCH 29.7 27.0 - 34.0 pg 09/29/2023 7:51 AM EST [facility] MCHC 32.8 32.0 - 36.0 g/dL 09/29/2023 7:51 AM EST [facility] RDW 14.5 11.5 - 15.5 % 09/29/2023 7:51 AM EST [facility] PLT 203 140 - 400 K/uL 09/29/2023 7:51 AM EST [facility] MPV 10.0 6.6 - 11.1 fL 09/29/2023 7:51 AM EST [facility] nRBCs 0 <=0 /100 WBCs 09/29/2023 7:51 AM EST [facility] Blood Venous blood specimen / Unknown Venipuncture / Unknown 09/29/2023 7:36 AM EST 09/29/2023 7:43 AM EST Vanessa Antony MD LAB BLOOD ORDERABLES [facility] [address] [place] [address] * (ABNORMAL) BASIC METABOLIC PANEL (09/29/2023 7:36 AM EST) BUN 8 6 - 20 mg/dL 09/29/2023 8:22 AM EST [facility] Creatinine 0.5(L) 0.6 - 1.2 mg/dL 09/29/2023 8:22 AM EST [facility] Estimated Glomerular Filtration Rate >90 >=60 mL/min 09/29/2023 8:22 AM EST LAB[facility]ORY [facility] Comment:eGFR is calculated b ased on the CKD-EPI 2020 equation Sodium 136 135 - 146 mmol/L 09/29/2023 8:22 AM EST [facility] Potassium 4.1 3.5 - 5.1 mmol/L 09/29/2023 8:22 AM EST [facility] Chloride 104 98 - 107 mmol/L 09/29/2023 8:22 AM EST [facility] CO2 25 22 - 32 mmol/L 09/29/2023 8:22 AM EST [facility] Anion Gap 7 7 - 15 mmol/L 09/29/2023 8:22 AM EST [facility] Glucose 127(H) 70 - 120 mg/dL 09/29/2023 8:22 AM EST [facility] Calcium 8.6 8.4 - 10.2 mg/dL 09/29/2023 8:22 AM EST LABORATORY C Blood Venous blood specimen / Unknown Venipuncture / Unknown 09/29/2023 7:36 AM EST 09/29/2023 7:43 AM EST Vanessa Antony MD LAB BLOOD ORDERABLES Performing Organization Address [facility] Co de Phone Number LABORATORY [facility] [address] [place] [address] * CALCIUM, IONIZED, WHOLE BLOOD (09/28/2023 7:42 AM EST) Calcium, Ionized, Whole Blood 1.20 1.13 - 1.32 mmol/L 09/28/2023 7:57 AM EST LABORATORY C Blood Venous blood specimen / Unknown Venipuncture / Unknown 09/28/2023 7:42 AM EST 09/28/2023 7:48 AM EST Vanessa Antony MD LAB BLOOD ORDERABLES Performing Organization Address [facility] Co de Phone Number LABORATORY [facility] [address] [place] [address] * PHOSPHORUS (09/28/2023 7:42 AM EST) Phosphorus 2.9 2.5 - 4.8 mg/dL 09/28/2023 8:30 AM EST LABORATORY C Blood Venous blood specimen / Unknown Venipuncture / Unknown 09/28/2023 7:42 AM EST 09/28/2023 7:49 AM EST Vanessa Antony MD LAB BLOOD ORDERABLES Performing Organization Address City/[facility] de Phone Number LABORATORY [facility] [address] [place] [address] * (ABNORMAL) MAGNESIUM (09/28/2023 7:42 AM EST) Magnesium 2.8(H) 1.5 - 2.6 mg/dL 09/28/2023 8:30 AM EST LABORATORY C Blood Venous blood specimen / Unknown Venipuncture / Unknown 09/28/2023 7:42 AM EST 09/28/2023 7:49 AM EST Vanessa Antony MD LAB BLOOD ORDERABLES LABORATORY [facility] [address] [place] [address] * (ABNORMAL) CBC (09/28/2023 7:42 AM EST) WBC 6.41 4.00 - 10.80 K/uL 09/28/2023 8:12 AM EST LABORATORY [facility] RBC 3.66 4.50 - 5.25 M/uL 09/28/2023 8:12 AM EST LABORATORY [facility] HGB 10.6(L) 14.0 - 16.8 g/dL 09/28/2023 8:12 AM EST LABORATORY [facility] HCT 32.5(L) 40.0 - 48.4 % 09/28/2023 8:12 AM EST LABORATORY [facility] MCV 88.8 82.0 - 99.5 fL 09/28/2023 8:12 AM EST LABORATORY [facility] MCH 29.0 27.0 - 34.0 pg 09/28/2023 8:12 AM EST LABORATORY [facility] MCHC 32.6 32.0 - 36.0 g/dL 09/28/2023 8:12 AM EST LABORATORY [facility] RDW 14.3 11.5 - 15.5 % 09/28/2023 8:12 AM EST LABORATORY [facility] PLT 219 140 - 400 K/uL 09/28/2023 8:12 AM EST LABORATORY [facility] MPV 10.1 6.6 - 11.1 fL 09/28/2023 8:12 AM EST LABORATORY [facility] nRBCs 0 <=0 /100 WBCs 09/28/2023 8:12 AM EST LABORATORY [facility] Blood Venous blood specimen / Unknown Venipuncture / Unknown 09/28/2023 7:42 AM EST 09/28/2023 7:49 AM EST Vanessa Antony MD LAB BLOOD ORDERABLES Performing Organization Address City/[facility]/ZIP Co de Phone Number LABORATORY [facility] [address] [place] [address] * (ABNORMAL) BASIC METABOLIC PANEL (09/28/2023 7:42 AM EST) BUN 7 6 - 20 mg/dL 09/28/2023 8:30 AM EST LABORATORY [facility] Creatinine 0.6 0.6 - 1.2 mg/dL 09/28/2023 8:30 AM EST LABORATORY [facility] Estimated Glomerular Filtration Rate >90 >=60 mL/min 09/28/2023 8:30 AM EST LABORATORY [facility] Comment:eGFR is calculated b ased on the CKD-EPI 2020 equation Sodium 137 135 - 146 mmol/L 09/28/2023 8:30 AM EST LABORATORY [facility] Potassium 3.4(L) 3.5 - 5.1 mmol/L 09/28/2023 8:30 AM EST LABORATORY [facility] Chloride 104 98 - 107 mmol/L 09/28/2023 8:30 AM EST LABORATORY [facility] CO2 26 22 - 32 mmol/L 09/28/2023 8:30 AM EST LABORATORY [facility] Anion Gap 7 7 - 15 mmol/L 09/28/2023 8:30 AM EST LABORATORY [facility] Glucose 118 70 - 120 mg/dL 09/28/2023 8:30 AM EST LABORATORY [facility] Calcium 8.4 8.4 - 10.2 mg/dL 09/28/2023 8:30 AM EST LABORATORY [facility] Blood Venous blood specimen / Unknown Venipuncture / Unknown 09/28/2023 7:42 AM EST 09/28/2023 7:49 AM EST Vanessa Antony MD LAB BLOOD ORDERABLES Performing Organization Address City/[facility]/ZIP Co de Phone Number LAB[facility]ATORY [facility] [address] [place] [address] * UPPER GI ENDOSCOPY (09/27/2023 12:45 PM EST) 09/27/2023 12:4 5 PM EST Narrative Procedure Note Jeyson Brock DO - 09/27/2023 12:45 PM EST [facility] Patient Name: Edward Yoder Procedure Date: 09/27/2023 12:45 PM Date of : 1965 Admit Type: Inpatient Note Status:Finalized Date of : 1965 Admit Type: Inpatient Age: 58 Room: Endo - Room 4 Gender: Male Note Status: Finalized Procedure: Upper GI endoscopy Indications: Abnormal CT of the GI tract, 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 Procedure: Pre-Anesthesia Assessment: - Prior to the procedure, a History and Physicalwas performed, and patient medications and allergies were reviewed. Thepatient is competent. The risks and benefits of the procedure and the sedation optionsand risks were discussed with the patient. All questions were answered and informedconsent was obtained. Patient identification and proposed procedure were verifiedby the physician, the nurse, the anesthesiologist, the administrative services coordinator and thetechnician in the pre-procedure area in the procedure room. Mental Status Examination: alertand oriented. Airway Examination: normal oropharyngeal airway and neck mobility.Respiratory Examination: clear to auscultation. CV Examination: normal. Afterreviewing the risks and benefits, the patient was deemed in satisfactory condition toundergo the procedure. The anesthesia plan was to use monitored anesthesia care (MAC).Immediately prior to administration of medications, the patient was re-assessed foradequacy to receive sedatives. The heart rate, respiratory rate, oxygen saturations,blood pressure, adequacy of pulmonary ventilation, and response to care weremonitored throughout the procedure. The physical status of the patient was re-assessedafter the procedure. - The supervising physician was present for theentire procedure from scope insertion until scope withdrawal. After obtaining informed consent, the endoscope waspassed under direct vision. All instruments were visually inspected immediatelybefore and after removal from the patient to ensure they are fully intact. Throughout the procedure, the patient's bloodpressure, pulse, and oxygen saturations were monitored continuously. The GIF [id number] was introduced through the mouth, and advanced to the proximal jejunum. Findings & Specimens: An esophago-jejunal anastomosis was found at 36 cm from theincisors. There is no endoscopic evidence of fistula in the entire esophagus. The examined jejunum was normal. A guide wire was inserted into the jejunum and the endoscope wasremoved. A 16 Fr nasojejunal tube was advanced over the guide wire into the jejunum. Placement wasconfirmed by scope visualization. Impression: - An esophago-jejunal anastomosis was found. - Normal examined jejunum. - Feeding tube placement was successfullyperformed. - No specimens collected. - All instruments are visually inspectedimmediately before and after removal from the patient to ensure they are fully intact. Recommendation: - Return patient to hospital [facility] for ongoingcare. - Further recommendations as per GI consultservice. Jackie Sanabria MD 09/27/2023 1:41:48 PM This report has been signed electronically. Adolph Barrera, Estimated Blood Loss: Estimated blood loss: none. Jeyson Brock DO GASTRO UPPER * METHYLMALONIC ACID, SERUM (09/27/2023 9:05 AM EST) Methylmalonic Acid 99 87 - 318 nmol/L 09/29/2023 12:16 PM EST [facility] Comment: This test was developed and its analytical performance characteristics have been determined by [facility] [place], [place]. It has not been cleared or approved by the U.S. Food and Drug Administration. This assay has been validated pursuant to the CLIA regulations and is used for clinical purposes. Test Performed at: [facility] [address] [place] [address] Tom Sanches M.D., Ph.D.,Director of Laboratories Blood Venous blood specimen / Unknown Venipuncture / Unknown 09/27/2023 9:05 AM EST 09/27/2023 9:25 AM EST Yamilex Vaughn MD LAB BLOOD ORDERABLES Performing Organization Address [facility] Co de Phone Number [facility] [address] [place] [address] * (ABNORMAL) ZINC (09/27/2023 9:05 AM EST) Zinc 57(L) 60 - 130 mcg/dL 09/28/2023 3:56 PM EST [facility] Comment: This test was developed and its analytical performance characteristics have been determined by [employer] [facility] [place], [place]. It has not been cleared or approved by the U.S. Food and Drug Administration. This assay has been validated pursuant to the CLIA regulations and is used for clinical purposes. Test Performed at: [facility] [facility] [address] Tom Sanches M.D., Ph.D.,Director of Laboratories Blood Venous blood specimen / Unknown Venipuncture / Unknown 09/27/2023 9:05 AM EST 09/27/2023 9:25 AM EST Yamilex Vaughn MD LAB BLOOD ORDERABLES Performing Organization Address [facility] Co de Phone Number [facility] [address] [place] [address] * COPPER, SERUM OR PLASMA (09/27/2023 9:05 AM EST) Copper 77 70 - 175 mcg/dL 09/28/2023 3:55 PM EST [facility] Comment: This test was developed and its analytical performance characteristics have been determined by [facility] [place] It has not been cleared or approved by the U.S. Food and Drug Administration. This assay has been validated pursuant to the CLIA regulations and is used for clinical purposes. Test Performed at: [facility] [employer] [facility] [address] Tom Sanches M.D., Ph.D.,Director of Laboratories Blood Venous blood specimen / Unknown Venipuncture / Unknown 09/27/2023 9:05 AM EST 09/27/2023 9:25 AM EST Yamilex Vaughn MD LAB BLOOD ORDERABLES Performing Organization Address [facility]/ZIP Co de Phone Number [facility] [id number] [place] [address] * (ABNORMAL) VITAMIN K (09/27/2023 9:05 AM EST) Vitamin K 63(L) 130 - 1500 pg/mL 09/29/2023 8:36 PM EST [facility] Comment: This test was developed and its analytical performance characteristics have been determined by [employer] [place]. It has not been cleared or approved by the U.S. Food and Drug Administration. This assay has been validated pursuant to the CLIA regulations and is used for clinical purposes. Test Performed at: [facility] [address] Tom Sanches M.D., Ph.D.,Director of Laboratories Blood Venous blood specimen / Unknown Venipuncture / Unknown 09/27/2023 9:05 AM EST 09/27/2023 9:31 AM EST Yamilex Vaughn MD LAB BLOOD ORDERABLES Performing Organization Address [facility] Co de Phone Number [facility] [address] [place] [address] * VITAMIN E (TOCOPHEROL) (09/27/2023 9:05 AM EST) Alpha-Tocopherol 6.0 5.7 - 19.9 mg/L 09/29/2023 4:57 AM EST [facility] Comment: Levels of alpha-tocopherol <5 mg/L are consistent with Vitamin E deficiency in adults. Pwdn-Zokwt-Hntagpxk ol <1.0 <=4.3 mg/L 09/29/2023 4:57 AM EST [facility] Comment: Vitamin supplementation within 24 hours prior to blood draw may affect the accuracy of the results. This test was developed and its analytical performance characteristics have been determined by [employer] [place], [place]. It has not been cleared or approved by the U.S. Food and Drug Administration. This assay has been validated pursuant to the CLIA regulations and is used for clinical purposes. Test Performed at: [facility] [address] Tom Sanches M.D., Ph.D.,Director of Laboratories Blood Venous blood specimen / Unknown Venipuncture / Unknown 09/27/2023 9:05 AM EST 09/27/2023 9:31 AM EST Yamilex Vaughn MD LAB BLOOD ORDERABLES Performing Organization Address [facility]/ZIP Co de Phone Number [address] * VITAMIN A (RETINOL) (09/27/2023 9:05 AM EST) Vitamin A (Retinol) 39 38 - 98 mcg/dL 09/29/2023 1:18 AM EST [facility] Comment: Vitamin supplementation within 24 hours prior to blood draw may affect the accuracy of the results. This test was developed and its analytical performance characteristics have been determined by [employer] [place], [place]. It has not been cleared or approved by the U.S. Food and Drug Administration. This assay has been validated pursuant to the CLIA regulations and is used for clinical purposes. Test Performed at: [facility] [address] Tom Sanches M.D., Ph.D.,Director of Laboratories Blood Venous blood specimen / Unknown Venipuncture / Unknown 09/27/2023 9:05 AM EST 09/27/2023 9:31 AM EST Yamilex Vaughn MD LAB BLOOD ORDERABLES Performing Organization Address [facility]/ZIP Co de Phone Number [facility] [employer] [address] * PT INR (09/27/2023 9:05 AM EST) Prothrombin Time 14.9 11.6 - 15.2 seconds 09/27/2023 9:51 AM EST LABORATORY [facility] INR 1.2 0.8 - 1.2 09/27/2023 9:51 AM EST LABORATORY [facility] Blood Venous blood specimen / Unknown Venipuncture / Unknown 09/27/2023 9:05 AM EST 09/27/2023 9:24 AM EST Narrative LABORATORY [facility] - 09/27/2023 9:51 AM EST Warfarin Therapy INR: 2.0-3.0 conventional anticoagulation INR: 2.5-3.5 high intensity anticoagulation Jeyson Brock DO LAB BLOOD ORDERABLES LABORATORY [facility] [address] [place] [address] * CALCIUM, IONIZED, WHOLE BLOOD (09/27/2023 9:05 AM EST) Calcium, Ionized, Whole Blood 1.24 1.13 - 1.32 mmol/L 09/27/2023 9:27 AM EST LABORATORY [facility] Blood Venous blood specimen / Unknown Venipuncture / Unknown 09/27/2023 9:05 AM EST 09/27/2023 9:24 AM EST Vaenssa Antony MD LAB BLOOD ORDERABLES Performing Organization Address [facility] Co de Phone Number LABORATORY [facility] [address] [place] [address] * PHOSPHORUS (09/27/2023 9:05 AM EST) Phosphorus 3.7 2.5 - 4.8 mg/dL 09/27/2023 10:02 AM EST LAB[facility]ATORY [facility] Blood Venous blood specimen / Unknown Venipuncture / Unknown 09/27/2023 9:05 AM EST 09/27/2023 9:24 AM EST Vanessa Antony MD LAB BLOOD ORDERABLES Performing Organization Address [facility] Co de Phone Number LABORATORY [facility] [address] [place] [address] * MAGNESIUM (09/27/2023 9:05 AM EST) Magnesium 1.9 1.5 - 2.6 mg/dL 09/27/2023 10:02 AM EST LABORATORY [facility] Blood Venous blood specimen / Unknown Venipuncture / Unknown 09/27/2023 9:05 AM EST 09/27/2023 9:24 AM EST Vanessa Antony MD LAB BLOOD ORDERABLES Performing Organization Address City/State/[facility] Co de Phone Number LABORATORY [facility] [address] [place] [address] * (ABNORMAL) CBC (09/27/2023 9:05 AM EST) WBC 6.62 4.00 - 10.80 K/uL 09/27/2023 9:44 AM EST LABORATORY [facility] RBC 4.04 4.50 - 5.25 M/uL 09/27/2023 9:44 AM EST LABORATORY [facility] HGB 12.1(L) 14.0 - 16.8 g/dL 09/27/2023 9:44 AM EST LABORATORY [facility] HCT 36.0(L) 40.0 - 48.4 % 09/27/2023 9:44 AM EST LABORATORY [facility] MCV 89.1 82.0 - 99.5 fL 09/27/2023 9:44 AM EST LAB[facility]ATORY [facility] MCH 30.0 27.0 - 34.0 pg 09/27/2023 9:44 AM EST LAB[facility]ATORY [facility] MCHC 33.6 32.0 - 36.0 g/dL 09/27/2023 9:44 AM EST LABORATORY [facility] RDW 14.5 11.5 - 15.5 % 09/27/2023 9:44 AM EST LABORATORY [facility] PLT 248 140 - 400 K/uL 09/27/2023 9:44 AM EST LAB[facility]ATORY [facility] MPV 10.4 6.6 - 11.1 fL 09/27/2023 9:44 AM EST LABORATORY [facility] nRBCs 0 <=0 /100 WBCs 09/27/2023 9:44 AM EST LAB[facility]ATORY [facility] Blood Venous blood specimen / Unknown Venipuncture / Unknown 09/27/2023 9:05 AM EST 09/27/2023 9:24 AM EST Vanessa Antony MD LAB BLOOD ORDERABLES LABORATORY [facility] [address] [place] [address] * BASIC METABOLIC PANEL (09/27/2023 9:05 AM EST) BUN 7 6 - 20 mg/dL 09/27/2023 10:02 AM EST LABORATORY [facility] Creatinine 0.7 0.6 - 1.2 mg/dL 09/27/2023 10:02 AM EST LAB[facility]ATORY [facility] Estimated Glomerular Filtration Rate >90 >=60 mL/min 09/27/2023 10:02 AM EST LAB[facility]ATORY [facility] Comment:eGFR is calculated b ased on the CKD-EPI 2020 equation Sodium 136 135 - 146 mmol/L 09/27/2023 10:02 AM EST LAB[facility]ATORY [facility] Potassium 3.7 3.5 - 5.1 mmol/L 09/27/2023 10:02 AM EST LAB[facility]ATORY [facility] Chloride 98 98 - 107 mmol/L 09/27/2023 10:02 AM EST LAB[facility]ATORY [facility] CO2 25 22 - 32 mmol/L 09/27/2023 10:02 AM EST LAB[facility]ATORY [facility] Anion Gap 13 7 - 15 mmol/L 09/27/2023 10:02 AM EST LABORATORY [facility] Glucose 102 70 - 120 mg/dL 09/27/2023 10:02 AM EST LAB[facility]ATORY [facility] Calcium 9.3 8.4 - 10.2 mg/dL 09/27/2023 10:02 AM EST LAB[facility]ATORY [facility] Blood Venous blood specimen / Unknown Venipuncture / Unknown 09/27/2023 9:05 AM EST 09/27/2023 9:24 AM EST Vanessa Antony MD LAB BLOOD ORDERABLES LAB[facility]ATORY [facility] [address] [place] [address] * 25-HYDROXY VITAMIN D (09/27/2023 1:21 AM EST) 25-Hydroxy Vitamin D 24 >19 ng/mL 09/27/2023 1:45 PM EST LABORATORY [facility] Blood Venous blood specimen / Unknown Venipuncture / Unknown 09/27/2023 1:21 AM EST 09/27/2023 1:26 AM EST Narrative LABORATORY [facility] - 09/27/2023 1:45 PM EST Deficient: <20 ng/mL Insufficient: 20-29 ng/mL Recommended/Optimum:30-50 ng/mL Vitamin D intoxication is rare. If suspicious of Vitamin D toxicity, evaluation of serum Calcium and PTH is recommended. Yamilex Vaughn MD LAB BLOOD ORDERABLES LABORATORY [facility] [address] [place] [address] * FOLIC ACID (09/27/2023 1:21 AM EST) Folic Acid 12.8 >4.5 ng/mL 09/27/2023 11:17 AM EST LAB[facility]ATORY [facility] Blood Venous blood specimen / Unknown Venipuncture / Unknown 09/27/2023 1:21 AM EST 09/27/2023 1:26 AM EST Yamilex Vaughn MD LAB BLOOD ORDERABLES Performing Organization Address [facility] Co de Phone Number LABORATORY [facility] [address] [place] [address] * VITAMIN B12 (09/27/2023 1:21 AM EST) Vitamin B12 387 232 - 1,245 pg/mL 09/27/2023 1:46 PM EST LAB[facility]ATORY [facility] Blood Venous blood specimen / Unknown Venipuncture / Unknown 09/27/2023 1:21 AM EST 09/27/2023 1:26 AM EST Yamilex Vaughn MD LAB BLOOD ORDERABLES Performing Organization Address City/[facility] Co de Phone Number LABORATORY [facility] [address] [place] [address] * TRIGLYCERIDES (09/27/2023 1:21 AM EST) Triglycerides 75 <=174 mg/dL 09/27/2023 1:13 PM EST LAB[facility]ATORY [facility] Comment: Triglyceride Reference Ranges (mg/dL): <150 Acceptable 150-174 Borderline high 175-499 High >=500 Very high Blood Venous blood specimen / Unknown Venipuncture / Unknown 09/27/2023 1:21 AM EST 09/27/2023 1:26 AM EST Yamilex aVughn MD LAB BLOOD ORDERABLES Performing Organization Address City/[facility] Co de Phone Number LABORATORY [facility] [address] [place] [address] * PHOSPHORUS (09/27/2023 1:21 AM EST) Phosphorus 4.1 2.5 - 4.8 mg/dL 09/27/2023 1:53 AM EST [facility]ORY [facility] Blood Venous blood specimen / Unknown Venipuncture / Unknown 09/27/2023 1:21 AM EST 09/27/2023 1:26 AM EST Ravi Nunes MD LAB BLOOD ORDERABLES Performing Organization Address [facility] de Phone Number LABORATORY [facility] [address] [place] [address] * MAGNESIUM (09/27/2023 1:21 AM EST) Magnesium 1.6 1.5 - 2.6 mg/dL 09/27/2023 1:53 AM EST LAB[facility]ORY [facility] Blood Venous blood specimen / Unknown Venipuncture / Unknown 09/27/2023 1:21 AM EST 09/27/2023 1:26 AM EST Ravi Nunes MD LAB BLOOD ORDERABLES Performing Organization Address [facility] de Phone Number LABORATORY [facility] [address] [place] [address] * BASIC METABOLIC PANEL (09/27/2023 1:21 AM EST) BUN 6 6 - 20 mg/dL 09/27/2023 1:53 AM EST LAB[facility]ORY [facility] Creatinine 0.6 0.6 - 1.2 mg/dL 09/27/2023 1:53 AM EST LAB[facility]ORY [facility] Estimated Glomerular Filtration Rate >90 >=60 mL/min 09/27/2023 1:53 AM EST LAB[facility]ATORY [facility] Comment:eGFR is calculated b ased on the CKD-EPI 2020 equation Sodium 139 135 - 146 mmol/L 09/27/2023 1:53 AM EST LAB[facility] Potassium 3.7 3.5 - 5.1 mmol/L 09/27/2023 1:53 AM EST LAB[facility] Chloride 103 98 - 107 mmol/L 09/27/2023 1:53 AM EST [facility] CO2 25 22 - 32 mmol/L 09/27/2023 1:53 AM EST LAB[facility] Anion Gap 11 7 - 15 mmol/L 09/27/2023 1:53 AM EST LAB[facility] Glucose 113 70 - 120 mg/dL 09/27/2023 1:53 AM EST [facility] Calcium 9.2 8.4 - 10.2 mg/dL 09/27/2023 1:53 AM EST [facility] Blood Venous blood specimen / Unknown Venipuncture / Unknown 09/27/2023 1:21 AM EST 09/27/2023 1:26 AM EST Ravi Nunes MD LAB BLOOD ORDERABLES LAB[facility]AT[facility] [address] [place] [address] * (ABNORMAL) CBC (09/27/2023 1:21 AM EST) WBC 5.47 4.00 - 10.80 K/uL 09/27/2023 1:34 AM EST LAB[facility] RBC 3.82 4.50 - 5.25 M/uL 09/27/2023 1:34 AM EST LAB[facility]ORY [facility] HGB 11.1(L) 14.0 - 16.8 g/dL 09/27/2023 1:34 AM EST [facility] HCT 34.0(L) 40.0 - 48.4 % 09/27/2023 1:34 AM EST [facility] MCV 89.0 82.0 - 99.5 fL 09/27/2023 1:34 AM EST LAB[facility] MCH 29.1 27.0 - 34.0 pg 09/27/2023 1:34 AM EST [facility] MCHC 32.6 32.0 - 36.0 g/dL 09/27/2023 1:34 AM EST LAB[facility] RDW 14.6 11.5 - 15.5 % 09/27/2023 1:34 AM EST LAB[facility] PLT 224 140 - 400 K/uL 09/27/2023 1:34 AM EST LAB[facility] MPV 9.7 6.6 - 11.1 fL 09/27/2023 1:34 AM EST LAB[facility] nRBCs 0 <=0 /100 WBCs 09/27/2023 1:34 AM EST LAB[facility] Blood Venous blood specimen / Unknown Venipuncture / Unknown 09/27/2023 1:21 AM EST 09/27/2023 1:26 AM EST Ravi Nunes MD LAB BLOOD ORDERABLES Performing Organization Address City/[facility]/ZIP Co de Phone Number LABORATORY [facility] [address] [place] [address] * TYPE AND SCREEN (09/27/2023 1:21 AM EST) ABO A 09/27/2023 2:24 AM EST LABORATORY [facility] BLOOD BANK Rh Positive 09/27/2023 2:24 AM EST LABORATORY [facility] BLOOD [facility] Red Blood Cell Antibody Screen Negative 09/27/2023 2:24 AM EST LABORATORY [facility] B[facility] Specimen Expiration Date 09/30/2023 23:59 09/27/2023 2:24 AM EST LABORATORY [facility] BLOOD [facility] Blood Venous blood specimen / Unknown Venipuncture / Unknown 09/27/2023 1:21 AM EST 09/27/2023 1:26 AM EST Ravi Nunes MD LAB BLOOD BANK TEST ORDERABLES LABORATORY [facility] BLOOD B[facility] [address] [place] [address] * LACTATE (09/27/2023 1:21 AM EST) Lactate 0.8 0.4 - 2.0 mmol/L 09/27/2023 1:50 AM EST LAB[facility] Blood Venous blood specimen / Unknown Venipuncture / Unknown 09/27/2023 1:21 AM EST 09/27/2023 1:26 AM EST Ravi Nunes MD LAB BLOOD ORDERABLES LABORATORY [facility] [address] [place] [address] * SARS-COV-2 (COVID-19), NAAT (09/27/2023 12:54 AM EST) SARS-CoV-2 (COVID-19) Result Negative Negative 09/27/2023 2:03 AM EST LABORATORY [facility] Comment: 2019 Novel Coronavirus not detected. This express test was developed and its performance characteristics determined by [employer]. It has not been cleared or approved by the U.S. Food and Drug Administration (FDA). FDA does not require this test to go thru premarket FDA review. This test is used for clinical purposes. It should not be regarded as investigational or for research. This laboratory is certified under the Clinical Laboratory Improvement Amendments (CLIA) as qualified to perform high complexity clinical laboratory testing. This test is a nucleic acid amplification test (NAAT), a reverse transcriptase polymerase chain reaction (RT-PCR) test, or a Centers for Disease Control- acceptable equivalent. The test is performed in a high complexity Clinical Laboratory Improvement Amendments-(CLIA) certified laboratory. The test is acceptable for SARS-CoV-2 diagnosis, surveillance, and travel within the [place] and to most countries. Please check with local testing authorities about requirements before travel. The validation of bronchial specimens, tracheal aspirates, and sputum for this assay was developed and performance characteristics determined by [facility] [employer]. The validation of alternate specimen types has not been cleared or approved by the U.S. Food and Drug Administration (FDA). It has been determined that such clearance is not necessary. 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 Avoid in patients with severe hepatic impairment or severe active liver disease. Use for 5 days., Admission Given 09/27/2023 5:04 AM EST 975 mg Aprepitant (Emend) cap 40 mg 40 mg, Oral, Daily(AM), First dose on Tue09/27/23 at 0900, Until Discontinued Given 09/29/2023 9:32 AM EST 40 mg Given 09/28/2023 8:51 AM EST 40 mg Given 09/27/2023 8:01 AM EST 40 mg check patch placement order QSHIFT, First dose on Tue09/27/23 at 0800, Until Discontinued, Routine, Scopolamine (TRANSDERM SCOP) patch placement check Enoxaparin (Lovenox) inj 40 mg 40 mg, Subcutaneous, Daily(AM), First dose on Tue09/27/23 at 0900, Until Discontinued, If patient is on warfarin, inform provider if daily INR value is 2 or greater!, Admission Given 09/28/2023 8:51 AM EST 40 mg Abdomen Right Lower Given 09/27/2023 8:00 AM EST 40 mg Ab domen Left Lower escitalopram (Lexapro) tab 10 mg 10 mg, Oral, QPM-1999, First dose on Tue09/27/23 at 2000, Until Discontinued Given 09/28/2023 7:23 PM EST 10 mg Given 09/27/2023 8:30 PM EST 10 mg High calorie peptide-based (Peptamen 1.5) liquid 10 mL/hr, Tube feed, CONTINUOUS, Starting on Tue09/27/23 at 1615, Until Tue09/29/23 at 0846 Rate Change 09/29/2023 8:18 AM EST 55 mL/hr 55 mL/hr New Bag 09/29/2023 5:32 AM EST 10 mL/hr 10 mL/hr New Bag 09/29/2023 1:05 AM EST 55 mL/hr 55 mL/hr High calorie peptide-based (Peptamen 1.5) liquid 85 mL/hr, Tube feed, CONTINUOUS, Starting on Tue09/29/23 at 1000, Until Tue09/29/23 at 1711 New Bag 09/29/2023 10:00 AM EST 85 mL/hr 85 m L/hr isolyte-S pH 7.4 infusion Intravenous, at 100 mL/hr, Plasma-LYTE 148, isolyte-S, and isolyte-S pH 7.4 are considered equivalent - including for MAR barcode scanning., CONTINUOUS, Starting on Tue09/27/23 at 0015, Until Tue09/28/23 at 1031, Admission New Bag 09/28/2023 9:04 AM EST 100 mL/hr Restarted 09/27/2023 1:39 PM EST Continue from Pre-Op 09/27/2023 1:09 PM EST 100 mL/hr isolyte-S pH 7.4 infusion Intravenous, at 25 mL/hr, Plasma-LYTE 148, isolyte-S, and isolyte-S pH 7.4 are considered equivalent - including for MAR barcode scanning., CONTINUOUS, Starting on Tue09/27/23 at 1315, Until Tue09/27/23 at 1532, Pre-Op New Bag 09/27/2023 1:15 PM EST 25 mL/hr LORAzepam (Ativan) tab 0.5 mg 0.5 mg, Oral, Q6H PRN Anxiety, Starting on Tue09/27/23 at 0658, Until [place] 09/29/23 at 1711 Given 09/29/2023 9:32 AM EST 0.5 mg Given 09/28/2023 7:23 PM EST 0.5 mg Given 09/27/2023 8:35 PM EST 0.5 mg magnesium sulfate in SWFI iv piggyback 4,000 mg 4,000 mg, IV Piggyback, ONCE, 1 dose, On Tue09/27/23 at 1115, Administer over 4 Hours New Bag 09/27/2023 2:58 PM EST 4,000 mg 25 mL/h r morphine sulfate 10 MG/5 ML oral soln 2.5 mg 2.5 mg, Oral, Q4H PRN Pain, Moderate, Pain, Mild, Starting on Tue09/28/23 at 1136, Until [place] 09/29/23 at 1711, Note concentartion Prior to Administration ! morphine sulfate 10 MG/5 ML oral soln 5 mg 5 mg, Oral, Q4H PRN Pain, Severe, Starting on Tue09/28/23 at 1135, Until [place] 09/29/23 at 1711, Note concentartion Prior to Administration ! ondansetron (Zofran) inj 4 mg 4 mg, IV Push, Q6H PRN Other, May use for nausea or vomiting if patient unable to take oral ondansetron, Starting on Tue09/26/23 at 2333, Until [place] 09/29/23 at 1711, Admission Given 09/27/2023 12:28 AM EST 4 mg ondansetron ODT (Zofran) tab 4 mg 4 mg, On Tongue, Q6H PRN Nausea, Vomiting, Starting on Tue09/26/23 at 2333, Until [place] 09/29/23 at 1711, Admission oxygen GAS Inhalation, OXYGEN, First dose on Tue09/27/23 at 0015, Until Discontinued, Device/Managed by: Low Flow Device, Goal SPO2 (%): 91-95, Starting Device: Nasal Cannula, Initial Flow Rate (LPM): 2, Lowest Support: Nasal Cannula: Flow 0-6 LPM. Titrate up/down by 1 LPM., Higher Support: Non-Rebreather (NRB) Mask: Minimum of 10 LPM. Titrate to maintain bag inflation., Titration Interval: Q2 minutes and as needed., Notify Provider: For sudden DECREASE in resting SPO2 to less than 85% and when escalating delivery device., Wean patient off Oxygen when the oxygen saturation is greater than or equal to 93% oxygen GAS Inhalation, OXYGEN, First dose on Tue09/27/23 at 1600, Until Discontinued, Device/Managed by: Low Flow Device, Goal SPO2 (%): 91-95, Starting Device: Nasal Cannula, Initial Flow Rate (LPM): 2, Lowest Support: Nasal Cannula: Flow 0-6 LPM. Titrate up/down by 1 LPM., Higher Support: Non-Rebreather (NRB) Mask: Minimum of 10 LPM. Titrate to maintain bag inflation., Titration Interval: Q2 minutes and as needed., Notify Provider: For sudden DECREASE in resting SPO2 to less than 85% and when escalating delivery device., Wean patient off Oxygen when the oxygen saturation is greater than or equal to 93% potassium chloride ER tab 40 mEq 40 mEq, Oral, ONCE, On Tue09/28/23 at 1115, For 1 dose, This med should NOT be Crushed or Chewed Given 09/28/2023 11:10 AM EST 40 mEq prochlorperazine (Compazine) inj 10 mg 10 mg, IV Push, Q6H PRN Nausea, Vomiting, Starting on Tue09/26/23 at 2333, Until [place] 09/29/23 at 1711, Use as second line therapy if nausea and/or vomiting unrelieved with ondansetron. May use if patient unable to take oral prochlorperazine., Admission Given 09/28/2023 6:58 AM EST 10 mg Given 09/28/2023 1:02 AM EST 10 mg prochlorperazine (Compazine) tab 10 mg 10 mg, Oral, Q6H PRN Nausea, Vomiting, Starting on Tue09/26/23 at 2333, Until [place] 09/29/23 at 1711, Use as second line therapy if nausea and/or vomiting unrelieved with ondansetron., Admission Scopolamine (Transderm Scop) patch 1 mg 1 mg (1 Patch), Transdermal, Q3DAYS, First dose on Tue09/27/23 at 0730, Until Discontinued, Do NOT cut the patch. All Scopolamine patches deliver 1 mg over 72 hours. Remove any Scopolamine patches the patient may currently be wearing prior to applying the new patch. Patch Applied 09/27/2023 7:58 AM EST 1 mg Other-Specify sodium chloride 0.9 % flush central line 10 mL 10 mL, IV Push, Q8H, First dose on Tue09/27/23 at 0600, Until Discontinued, TO UNUSED PORTS Do not flush if lock, PICC, or central line not in place; IV infusing or unable to flush. Given 09/29/2023 6:00 AM EST 10 mL Given 09/28/2023 10:00 PM EST 10 mL Given 09/28/2023 2:00 PM EST 10 mL sodium chloride 0.9 % flush peripheral martinez 3 mL 3 mL, IV Push, QSHIFT, First dose on Tue09/27/23 at 0015, Until Discontinued, Do not flush if lock, PICC, or central line not in place; IV infusing or unable to flush., Admission Given 09/29/2023 9:28 AM EST 3 mL Given 09/29/2023 12:00 AM EST 3 mL Given 09/28/2023 4:10 PM EST 3 mL thiamine (Vitamin B 1) 100 mg in D5W 100 mL ivpb 100 mg, IV Piggyback, Daily(AM), First dose (after last modification) on Tue09/27/23 at 2045, Until Discontinued, Administer over 30 Minutes New Bag 09/28/2023 9:04 AM EST 100 mg 222 mL/hr New Bag 09/27/2023 9:54 PM EST 100 mg 222 mL/hr vitamin b-12 (Cyanocobalamin) inj 1,000 mcg 1,000 mcg, Intramuscular, ONCE, On Tue09/27/23 at 1630, For 1 dose Given 09/27/2023 5:02 PM EST 1,000 mcg Thigh Left documented in this encounter Active and Recently Administered Medications Times are shown in EST. Scheduled Medication Order 09/27/2023 09/28/2023 09/29/2023 Acetaminophen (Tylenol) tab 975 mg 975 mg, Oral, Q6H, First dose on Tue09/27/23 at 0015, Last dose on Tue10/01/23 at 1800, For 5 days, Maximum 4 g acetaminophen/day. Avoid in patients with severe hepatic impairment or severe active liver disease. Use for 5 days., Admission 0015 (Not Given - Provider: Sandy Flower RN - Reason: Refused-Notify Provider)0504 (Given - Provider: Sandy Flower RN)1200 (OR/Procedure - Provider: Raciel Fernandez RN)1800 (Not Given - Provider: Raciel Fernandez RN - Reason: Refused-Notify Provider - Comment: Dr Carri Chandler,surgery blue made aware) 0000 (Not Given - Provider: Franca Espinoza RN - Reason: Refused-Notify Provider)0600 (Not Given - Provider: Franca Espinoza RN - Reason: Refused-Notify Provider)1200 (Not Given - Provider: Soren Conde RN - Reason: Parameter(s) Not Met)1800 (Not Given - Provider: Soren Conde RN - Reason: Parameter(s) Not Met) 0000 (Not Given - Provider: Rowdy Gaytan RN - Reason: Refused-Notify Provider)0600 (Not Given - Provider: Rowdy Gaytan RN - Reason: Refused-Notify Provider)1200 (Due) Aprepitant (Emend) cap 40 mg 40 mg, Oral, Daily(AM), First dose on Tue09/27/23 at 0900, Until Discontinued 0801 (Given - Provider: Sandy Flower RN) 0851 (Given - Provider: Lorri Agustin, ) 0932 (Given - Provider: Rosalie Quach, JANA) check patch placement order QSHIFT, First dose on Tue09/27/23 at 0800, Until Discontinued, Routine, Scopolamine (TRANSDERM SCOP) patch placement check 0800 (Patch Placement Verified - Provider: Sandy Flower RN - Comment: behind right ear)1600 (Patch Placement Verified - Provider: Raciel Fernandez RN - Comment: behind right ear) 0000 (Patch Placement Verified - Provider: Franca Espinoza RN)0800 (Patch Placement Verified - Provider: Piyush Melendez RN)1600 (Patch Placement Verified - Provider: Soren Conde RN) 0000 (Patch Placement Verified - Provider: Rowdy Gaytan RN)0800 (Patch Placement Verified - Provider: Rosalie Quach RN) Enoxaparin (Lovenox) inj 40 mg 40 mg, Subcutaneous, Daily(AM), First dose on Tue09/27/23 at 0900, Until Discontinued, If patient is on warfarin, inform provider if daily INR value is 2 or greater!, Admission 0800 (Given - Provider: Sandy Flower RN) 0851 (Given - Provider: SN Dung) 0900 (Not Given - Provider: Rosalie Quach RN - Reason: Refused-Notify Provider) escitalopram (Lexapro) tab 10 mg 10 mg, Oral, QPM-1999, First dose on Tue09/27/23 at 2000, Until Discontinued 2029 (Given - Provider: Franca Espinoza RN) 192 (Given - Provider: Rowdy Gaytan RN) magnesium sulfate in SWFI iv piggyback 4,000 mg (COMPLETED) 4,000 mg, IV Piggyback, ONCE, 1 dose, On Tue09/27/23 at 1115, Administer over 4 Hours 1458 (New Bag - Provider: Raciel Fernandez RN) oxygen GAS Inhalation, OXYGEN, First dose on Tue09/27/23 at 0015, Until Discontinued, Device/Managed by: Low Flow Device, Goal SPO2 (%): 91-95, Starting Device: Nasal Cannula, Initial Flow Rate (LPM): 2, Lowest Support: Nasal Cannula: Flow 0-6 LPM. Titrate up/down by 1 LPM., Higher Support: Non-Rebreather (NRB) Mask: Minimum of 10 LPM. Titrate to maintain bag inflation., Titration Interval: Q2 minutes and as needed., Notify Provider: For sudden DECREASE in resting SPO2 to less than 85% and when escalating delivery device., Wean patient off Oxygen when the oxygen saturation is greater than or equal to 93% 0015 (Oxygen Off - Provider: Sandy Flower RN)0800 (Oxygen Off - Provider: Sandy Flower RN)1600 (Oxygen Off - Provider: Raciel Fernandez RN) 0000 (Oxygen Off - Provider: Franca Espinoza RN)0800 (Oxygen Off - Provider: Piyush Melendez RN)1600 (Oxygen Off - Provider: Soren Conde RN) 0000 (Oxygen Off - Provider: Rowdy Gaytan RN)0800 (Oxygen Off - Provider: Rosalie Quach, RN) oxygen GAS Inhalation, OXYGEN, First dose on Tue09/27/23 at 1600, Until Discontinued, Device/Managed by: Low Flow Device, Goal SPO2 (%): 91-95, Starting Device: Nasal Cannula, Initial Flow Rate (LPM): 2, Lowest Support: Nasal Cannula: Flow 0-6 LPM. Titrate up/down by 1 LPM., Higher Support: Non-Rebreather (NRB) Mask: Minimum of 10 LPM. Titrate to maintain bag inflation., Titration Interval: Q2 minutes and as needed., Notify Provider: For sudden DECREASE in resting SPO2 to less than 85% and when escalating delivery device., Wean patient off Oxygen when the oxygen saturation is greater than or equal to 93% 1600 (Oxygen Off - Provider: Raciel Fernandez RN) 0000 (Oxygen Off - Provider: Franca Espinoza RN)0800 (Oxygen Off - Provider: Piyush Melendez RN)1600 (Oxygen Off - Provider: Soren Conde RN) 0000 (Oxygen Off - Provider: Rowdy Gaytan RN)0800 (Oxygen Off - Provider: Rosalie Quach, JANA) potassium chloride ER tab 40 mEq (COMPLETED) 40 mEq, Oral, ONCE, On Tue09/28/23 at 1115, For 1 dose, This med should NOT be Crushed or Chewed 1110 (Given - Provider: Piyush Melendez RN) Scopolamine (Transderm Scop) patch 1 mg 1 mg (1 Patch), Transdermal, Q3DAYS, First dose on Tue09/27/23 at 0730, Until Discontinued, Do NOT cut the patch. All Scopolamine patches deliver 1 mg over 72 hours. Remove any Scopolamine patches the patient may currently be wearing prior to applying the new patch. 0758 (Patch Applied - Provider: Sandy Flower RN - Comment: behind right ear) 1311 (Due: Patch Removed - Provider: Discharge, Physician - Comment: Time automatically adjusted from order being discontinued) sodium chloride 0.9 % flush central line 10 mL 10 mL, IV Push, Q8H, First dose on Tue09/27/23 at 0600, Until Discontinued, TO UNUSED PORTS Do not flush if lock, PICC, or central line not in place; IV infusing or unable to flush. 0600 (Not Given - Provider: Sandy Flwoer RN - Reason: Parameter(s) Not Met - Comment: fluids infusing)1400 (Given - Provider: Raciel Fernandez RN)2200 (Given - Provider: Franca Espinoza RN) 0600 (Given - Provider: Franca Espinoza RN)1400 (Given - Provider: Soren Conde RN)2200 (Given - Provider: Rowdy Gaytan RN) 0600 (Given - Provider: Rowdy Gaytan RN) sodium chloride 0.9 % flush peripheral martinez 3 mL 3 mL, IV Push, QSHIFT, First dose on Tue09/27/23 at 0015, Until Discontinued, Do not flush if lock, PICC, or central line not in place; IV infusing or unable to flush., Admission 0015 (Not Given - Provider: Sandy Flower RN - Reason: Parameter(s) Not Met - Comment: no peripheral site)0800 (Not Given - Provider: Sandy Flower RN - Reason: Parameter(s) Not Met - Comment: no peripheral site)1600 (Not Given - Provider: Raciel Fernandez RN - Reason: Parameter(s) Not Met - Comment: no PIV) 0000 (Given - Provider: Franca Espinoza RN)0800 (Not Given - Provider: Piyush Melendez RN - Reason: Parameter(s) Not Met)1610 (Given - Provider: Soren Conde RN) 0000 (Given - Provider: Rowdy Gaytan RN)0928 (Given - Provider: Rosalie Quach, JANA) thiamine (Vitamin B 1) 100 mg in D5W 100 mL ivpb 100 mg, IV Piggyback, Daily(AM), First dose (after last modification) on Tue09/27/23 at 2045, Until Discontinued, Administer over 30 Minutes 2154 (New Bag - Provider: Franca Espinoza RN) 0904 (New Bag - Provider: Piyush Melendez, JANA) 0900 (Not Given - Provider: Rosalie Quach RN - Reason: Refused-Notify Provider - Comment: pt says he is being discharged) vitamin b-12 (Cyanocobalamin) inj 1,000 mcg (COMPLETED) 1,000 mcg, Intramuscular, ONCE, On Tue09/27/23 at 1630, For 1 dose 1702 (Given - Provider: Raciel Fernandez, RN) Continuous Medication Order 09/27/2023 09/28/2023 09/29/2023 High calorie peptide-based (Peptamen 1.5) liquid (CANCELED) 10 mL/hr, Tube feed, CONTINUOUS, Starting on Tue09/27/23 at 1615, Until Tue09/29/23 at 0846 1702 (New Bag - Provider: Raciel Fernandez, RN)2000 (Rate Change - Provider: Franca Espinoza RN) 0010 (Rate Change - Provider: Franca Espinoza, RN)0414 (Rate Change - Provider: Franca Espinoza, RN)0905 (Rate Change - Provider: Piyush Melendez, RN)1151 (New Bag - Provider: Soren Conde RN)2016 (New Bag - Provider: Rowdy Gaytan, JANA) 0105 (New Bag - Provider: Rowdy Gaytan RN - Comment: per order)0532 (New Bag - Provider: Rowdy Gaytan RN - Comment: 55 ml/hr)0818 (Rate Change - Provider: Rosalie Quach, JANA) High calorie peptide-based (Peptamen 1.5) liquid 85 mL/hr, Tube feed, CONTINUOUS, Starting on Tue09/29/23 at 1000, Until Tue09/29/23 at 1711 1000 (New Bag - Provider: Rosalie Quach, JANA) isolyte-S pH 7.4 infusion (CANCELED) Intravenous, at 100 mL/hr, Plasma-LYTE 148, isolyte-S, and isolyte-S pH 7.4 are considered equivalent - including for MAR barcode scanning., CONTINUOUS, Starting on Tue09/27/23 at 0015, Until Tue09/28/23 at 1031, Admission 0032 (New Bag - Provider: Sandy Flower RN)1309 (Continue from Pre-Op - Provider: Vanessa Feliz CRNA)1338 (Paused - Provider: Vanessa Feliz CRNA - Comment: Switch to gravity)1339 (Restarted - Provider: Vanessa Feliz CRNA) 0904 (New Bag - Provider: Piyush Melendez, RN)1037 (Stopped - Provider: Piyush Melendez RN) isolyte-S pH 7.4 infusion (CANCELED) Intravenous, at 25 mL/hr, Plasma-LYTE 148, isolyte-S, and isolyte-S pH 7.4 are considered equivalent - including for MAR barcode scanning., CONTINUOUS, Starting on Tue09/27/23 at 1315, Until Tue09/27/23 at 1532, Pre-Op 1315 (New Bag - Provider: Marlen Lozoya LPN) PRN Medication Order 09/27/2023 09/28/2023 09/29/2023 LORAzepam (Ativan) tab 0.5 mg 0.5 mg, Oral, Q6H PRN Anxiety, Starting on Tue09/27/23 at 0658, Until [place] 09/29/23 at 1711 2034 (Given - Provider: Franca Espinoza RN) 1923 (Given - Provider: Rowdy Gaytan RN) 0932 (Given - Provider: Rosalie Quach RN) morphine sulfate 10 MG/5 ML oral soln 2.5 mg 2.5 mg, Oral, Q4H PRN Pain, Moderate, Pain, Mild, Starting on Tue09/28/23 at 1136, Until [place] 09/29/23 at 1711, Note concentartion Prior to Administration ! morphine sulfate 10 MG/5 ML oral soln 5 mg 5 mg, Oral, Q4H PRN Pain, Severe, Starting on Tue09/28/23 at 1135, Until [place] 09/29/23 at 1711, Note concentartion Prior to Administration ! ondansetron (Zofran) inj 4 mg(Linked Group 1) 4 mg, IV Push, Q6H PRN Other, May use for nausea or vomiting if patient unable to take oral ondansetron, Starting on Tue09/26/23 at 2333, Until [place] 09/29/23 at 1711, Admission 0028 (Given - Provider: Sandy Flower, JANA) ondansetron ODT (Zofran) tab 4 mg(Linked Group 1) 4 mg, On Tongue, Q6H PRN Nausea, Vomiting, Starting on 09/26/23 at 2333, Until [place] 09/29/23 at 1711, Admission 0028 (See Alternative - Provider: Sandy Flower RN) prochlorperazine (Compazine) inj 10 mg(Linked Group 2) 10 mg, IV Push, Q6H PRN Nausea, Vomiting, Starting on 09/26/23 at 2333, Until [place] 09/29/23 at 1711, Use as second line therapy if nausea and/or vomiting unrelieved with ondansetron. May use if patient unable to take oral prochlorperazine., Admission 0102 (Given - Provider: Franca Espinoza RN)0658 (Given - Provider: Franca Espinoza RN) prochlorperazine (Compazine) tab 10 mg(Linked Group 2) 10 mg, Oral, Q6H PRN Nausea, Vomiting, Starting on 09/26/23 at 2333, Until [place] 09/29/23 at 1711, Use as second line therapy if nausea and/or vomiting unrelieved with ondansetron., Admission 0102 (See Alternative - Provider: Franca Espinoza RN)0658 (See Alternative - Provider: Fracna Espinoza RN) Linked Groups Order Group 1: ondansetron ODT (Zofran) tab 4 mgJump to med 4 mg, On Tongue, Q6H PRN Nausea, Vomiting, Starting on 09/26/23 at 2333, Until [place] 09/29/23 at 1711, Admission Or ondansetron (Zofran) inj 4 mgJump to med 4 mg, IV Push, Q6H PRN Other, May use for nausea or vomiting if patient unable to take oral ondansetron, Starting on 09/26/23 at 2333, Until [place] 09/29/23 at 1711, Admission Group 2: prochlorperazine (Compazine) tab 10 mgJump to med 10 mg, Oral, Q6H PRN Nausea, Vomiting, Starting on 09/26/23 at 2333, Until [place] 09/29/23 at 1711, Use as second line therapy if nausea and/or vomiting unrelieved with ondansetron., Admission Or prochlorperazine (Compazine) inj 10 mgJump to med 10 mg, IV Push, Q6H PRN Nausea, Vomiting, Starting on 09/26/23 at 2333, Until [place] 09/29/23 at 1711, Use as second line therapy if nausea [...] the patient have Health Care Power of Oracle Identity Management Consultant? No Care Teams Hair Spinner Relationship Specialty Start Date End Date Ophelia Solis MD [address] [facility] [place] [address] PCP - General Family Medicine 09/12/23 documented as of this encounter
--- OUTSIDE RECORDS SUMMARY | 2023-10-04 12:12 | External Medical Summary ---
Author Name Unknown Address Unknown Organization [id number]:[facility] [place] [address] [facility] [place] [facility] [address] Laboratory Report Ordering Provider Test Date Status THEO DIAZ 09/29/2023 07:37:00 Final Observation Date Value Abnormality Reference (Units ) Status Calcium.ionized [Moles/volume] in Blood by Ion-selective membrane electrode (ISE) 09/29/2023 07:37:00 1.25 1.13-1.32 (mmol/L) Final Performing Location [facility] [place] [address] [place] [facility] [address]
--- OUTSIDE RECORDS SUMMARY | 2023-10-04 12:12 | External Medical Summary ---
Author Name Unknown Address Unknown Organization K01:[facility]ATORY [facility] - [address] [place] [address] Laboratory Report Ordering Provider Test Date Status JOETHEO 09/29/2023 07:36:00 Final Observation Date Value Abnormality Reference (Units ) Status Magnesium 09/29/2023 07:36:00 2.1 1.5-2.6 (m g/dL) Final Performing Location LABORATORY [facility] - [address] [place] [address]
--- OUTSIDE RECORDS SUMMARY | 2023-10-04 12:12 | External Medical Summary | Summary of Care ---
Author Name Unknown Organization [facility] Address [address] [place] [address] Phone [phone] Care Team Providers Care Ground Equipment Mechanic Name Role Phone Unavailable Primary Care Provider Unavailabl e Reason for Visit * Reason Comments IV Therapy Hydration Encounter Details Date Type Department Care Team (Latest Contact Info) Description 08/12/2023 2:30 PM EST Hem/Onc Treatment Hematology/Oncology Treatment, [place] [address] [place] [address] Sandra, Chair [address] Hem On[address] [place] [address] Chemotherapy induced nausea and vomiting*; Dehydration; Malignant [...] Visit Hematology/Oncology [facility] [address] [facility] [place] [address] Cipriano Kuhn MD [address] [place] [address] 10/11/2023 11:40 AM EST Nutrition Services Nutrition & Weight Management, [place] [address] [place] [address] Alyssa Varela RDN [address] [place] [address] 10/17/2023 9:20 AM EST Office Visit General Surgery, [place] [address] [place], [place] [id number] Praveen Edmonds MD [address] [place], [place] [id number] Scheduled Procedures Name Priority Associated Diagnoses Date/Ti [...] this encounter Medical Devices Implanted Type Area Creative Perfumer Device Identifier Shelf Expiration Date Model / Serial / Lot Cement Hydroset Injectable 5cc - [id number] Implanted:Qty : 1 on 03/15/2018 by Ronak Khoury MD [place] [facility] [place]: Head JOHN 11/09/2019 [id number] / / [id number] Needle Fiducial 22ga - [id number] Implanted:Qty : 1 on 04/01/2023 by Karson Goddard MD at [place]OS[place] [facility] [place] N/A: Esophagus GIVEN IMAGING [id number] 01/12/2025 [id number]-22-01 / / [id number] Stent Wallf Esoph [id number] - [id number] Implanted:Qty : 1 on 04/01/2023 by Karson Goddard MD at [place]OS[place] [facility] [place] N/A: Esophagus [employer] : ENDOSCOPY [id number] 09/09/2024 [id number] / / [id number] Power Port 8fr Sngl Lumen Plas - [id number] Implanted:Qty : 1 on 04/19/2023 by Thaddeus Brown DO at OR [facility] Right: Chest CR BARD : PERIPHERAL VASCULAR [id number] 06/14/2024 [id number] / / [id number] documented as of this encounter Visit Diagnoses [...] the patient have Health Care Power of Bar Staff? No
--- OUTSIDE RECORDS SUMMARY | 2023-10-04 12:12 | External Medical Summary | Summary of Care ---
Author Name Unknown Organization [facility] Address [address] [place] [address] Phone [phone] Care Team Providers Care Broke Beater Operator Name Role Phone Unavailable Primary Care Provider Unavailabl e Reason for Visit * Reason Comments IV Therapy Hydration Encounter Details Date Type Department Care Team (Latest Contact Info) Description 08/12/2023 2:30 PM EST Hem/Onc Treatment Hematology/Oncology Treatment, [place] [address] [place] [address] Sandra, Chair 9 Hem Onc Scenery [address] [place] [address] Chemotherapy induced nausea and vomiting*; Dehydration; Malignant [...] 10/05/2023 8:15 AM EST Office Visit Hematology/Oncology [facility] 200 [facility] [place] [address] Cipriano Kuhn MD [address] [place] [address] 10/11/2023 11:40 AM EST Nutrition Services Nutrition & Weight Management, [place] [address] [place] [address] Alyssa Varela RDN [address] [place] [address] 10/17/2023 9:20 AM EST Office Visit General Surgery, [place] [address], [place] [phone] Praveen Edmonds MD [address], [place] [phone] Scheduled Procedures Name Priority Associated Diagnoses Date/Ti [...] encounter Medical Devices Implanted Type Area Director Machine Device Identifier Shelf Expiration Date Model / Serial / Lot Cement Hydroset Injectable 5cc - [id number] Implanted:Qty : 1 on 03/15/2018 by Ronak Khoury [place] [facility] [place]: Head JOHN 11/09/2019 [id number] / / [id number] Needle Fiducial 22ga - [id number] Implanted:Qty : 1 on 04/01/2023 by Karson Goddard MD at [place] [facility] [place]/A: Esophagus GIVEN IMAGING [id number] 01/12/2025 DSF-22-01 / / [id number] Stent Wallf Esoph 23/[id number] - [id number] Implanted:Qty : 1 on 04/01/2023 by Karson Goddard MD at [place] [facility] N/A: Esophagus [employer] : ENDOSCOPY [id number] 09/09/2024 [id number] / / [id number] Power Port 8fr Sngl Lumen Plas - [id number] Implanted:Qty : 1 on 04/19/2023 by Thaddeus Brown DO at OR [facility] Right: Chest CR BARD : PERIPHERAL VASCULAR [id number] 06/14/2024 [id number] / / [id number] documented as of this encounter Visit Diagnoses [...] the patient have Health Care Power of Oil Distributor? No
--- OUTSIDE RECORDS SUMMARY | 2023-10-04 12:12 | External Medical Summary | Summary of Care ---
Author Name Unknown Organization [facility] Address [address] [place] [address] Phone [phone] Care Team Providers Care Biological Science Technician Name Role Phone Unavailable Primary Care Provider Unavailabl e Reason for Visit * Reason Comments IV Therapy Hydration Encounter Details Date Type Department Care Team (Latest Contact Info) Description 08/12/2023 2:30 PM EST Hem/Onc Treatment Hematology/Oncology Treatment, [place] [address] [place] [address] Sandra, Chair 9 Hem Onc Scenery [address] [place] [address] Chemotherapy induced nausea and vomiting*; Dehydration; Malignant [...] 10/05/2023 8:15 AM EST Office Visit Hematology/Oncology [facility] 200 [facility] [place] [address] Cipriano Kuhn MD [address] [place] [address] 10/11/2023 11:40 AM EST Nutrition Services Nutrition & Weight Management, [place] [address] [place] [address] Alyssa Varela RDN [address] [place] [address] 10/17/2023 9:20 AM EST Office Visit General Surgery, [place] [address], [place] [phone] Praveen Edmonds MD [address], [place] [phone] Scheduled Procedures Name Priority Associated Diagnoses Date/Ti [...] this encounter Medical Devices Implanted Type Area Harbor Engineer Device Identifier Shelf Expiration Date Model / Serial / Lot Cement Hydroset Injectable 5cc - [id number] Implanted:Qty : 1 on 03/15/2018 by Ronak Khoury MD at [place] [facility] Left: Head JOHN 11/09/2019 [id number] / / [id number] Needle Fiducial 22ga - [id number] Implanted:Qty : 1 on 04/01/2023 by Karson Goddard MD at ENDOSCOPY [facility] N/A: Esophagus GIVEN IMAGING [id number] 01/12/2025 DSF-22-01 / / [id number] Stent Wallf Esoph 23/[id number] - [id number] Implanted:Qty : 1 on 04/01/2023 by Karson Goddard MD at ENDOSCOPY [facility] N/A: Esophagus [employer] : ENDOSCOPY [id number] 09/09/2024 [id number] / / [id number] Power Port 8fr Sngl Lumen Plas - [id number] Implanted:Qty : 1 on 04/19/2023 by Thaddeus Brown DO at OR [facility] Right: Chest CR BARD : PERIPHERAL VASCULAR [id number] 06/14/2024 [id number] / / [id number] documented as of this encounter Visit Diagnoses [...] the patient have Health Care Power of Staff Development Coordinator? No
--- OUTSIDE RECORDS SUMMARY | 2023-10-04 12:12 | External Medical Summary | Summary of Care ---
Author Name Unknown Organization [facility] Address [address] [place] [address] Phone [phone] Care Team Providers Care Membership Counselor Name Role Phone Thaddeus Solis MD Primary Care Provider [phone] Reason for Visit * Reason Onset Date Comments Hospital Follow-Up 09/30/2023 BELEN Encounter Details Date Type Department Care Team (Late st Contact Info) Description 09/30/2023 Telephone Ancillary Department, [place] [address] [place] [address] Thaddeus Solis MD [address] [place] [address] Hospital Follow-Up (BELEN) Allergies Active Allergy Reactions Criticality Noted Date [...] Oral Liquid 55ml/hr via [place] tube continuously 87410 mL 2 09/28/2023 Active Aprepitant 40 MG [...] encounter Miscellaneous Notes * Telephone Encounter - Dahlia Blunt RN - 09/30/2023 7:33 AM EST Transitions of Care Note Reason for Referral: Recent Admission Phone visit for follow up: Inpatient Hospitalization [facility] Date: 09/26/2023 Discharged to: Home, Date: 09/29/2023 BELEN call not indicated due to Patient to follow-up with general surgery, hem/onc, and nutrition andweight management. documented in this encounter Plan of Treatment Upcoming Encounters Date Type Department Care Team (Late st Contact Info) Description 10/05/2023 8:15 AM EST Office Visit Hematology/Oncology [facility] [place] [address] [place] [address] Cipriano Kuhn MD [address] [place] [address] 10/11/2023 11:40 AM EST Nutrition Services Nutrition & Weight Management, [place] [address] [place], [place] [phone] Alyssa Varela RDN [address] [place], [place] [address] 10/17/2023 9:20 AM EST Office Visit General Surgery, [place] [address] [place], [place] [phone] Praveen Edmonds MD [address] [place], [place] [phone] Scheduled Procedures Name Priority Associated Diagnoses Date/Ti [...] this encounter Medical Devices Implanted Type Area Ultimate Hoops Trainer Device Identifier Shelf Expiration Date Model / Serial / Lot Cement Hydroset Injectable 5cc - [id number] Implanted:Qty : 1 on 03/15/2018 by Ronak Khoury MD [place] [facility] Left: Head JOHN 11/09/2019 [id number] / / [id number] Needle Fiducial 22ga - [id number] Implanted:Qty : 1 on 04/01/2023 by Karson Goddard MD at [place] [facility] N/A: Esophagus GIVEN IMAGING [id number] 01/12/2025 DSF-22-01 / / [id number] Stent Wallf Esoph 23/46swi30jd - [id number] Implanted:Qty : 1 on 04/01/2023 by Karson Goddard MD at [place]COPY [facility] N/A: Esophagus [employer] : ENDOSCOPY [id number] 09/09/2024 [id number] / / [id number] Power Port 8fr Sngl Lumen Plas - [id number] Implanted:Qty : 1 on 04/19/2023 by Thaddeus Brown DO at OR [facility] Right: Chest CR BARD : PERIPHERAL VASCULAR [id number] 06/14/2024 [id number] / / [id number] documented as of this encounter Advance Directives [...] the patient have Health Care Power of Demurrage Worker? No Care Teams Membership Counselor Relationship Specialty Start Date End Date Thaddeus Solis MD [address] [place] [address] PCP - General Family Medicine 09/12/23 documented as of this encounter
--- OUTSIDE RECORDS SUMMARY | 2023-10-04 12:13 | External Medical Summary ---
Author Name Unknown Address Unknown Organization K01:LABORATORY [facility] - [address] [place] [address] Laboratory Report Ordering Provider Test Date Status RAQUELCATERINA 09/27/2023 01:21:00 Final Observation Date Value Abnormality Reference (Units ) Status ABO 09/27/2023 01:21:00 A Final RH 09/27/2023 01:21:00 Positive Final RED BLOOD CELL ANTIBODY SCREEN 09/27/2023 01:21:00 Negative Final SPECIMEN EXPIRATION DATE 09/27/2023 01:21:00 09/30/2023 23:59 Final Performing Location [facility] [address] [facility] [place] [address]
--- OUTSIDE RECORDS SUMMARY | 2023-10-04 12:13 | External Medical Summary ---
Author Name Unknown Address Unknown Organization K01:[facility] - [address] [place] [address] Laboratory Report Ordering Provider Test Date Status JOETHEO 09/28/2023 07:42:00 Final Observation Date Value Abnormality Reference (Units ) Status Phosphate 09/28/2023 07:42:00 2.9 2.5-4.8 (m g/dL) Final Performing Location [facility] - [address] [place] [address]
--- OUTSIDE RECORDS SUMMARY | 2023-10-04 12:13 | External Medical Summary | Summary of Care ---
Author Name Unknown Organization [facility] Address [address] [place] [address] Phone [phone] Care Team Providers Care Customer Loyalty Representative Name Role Phone Thaddeus Solis MD Primary Care Provider [phone] Encounter Details Date Type Department Care Team (Late st Contact Info) Description 09/23/2023 Telephone Gastroenterology, [facility] [address] [place] [address] Georgi Long MD [address] [facility] [place] [address] Allergies Active Allergy Reactions Criticality Noted Date Comments Carbamazepine Rash Medium 02/20/2018 documented as of this encounter (statuses as of 09/27/2023) Medications Medication Sig Dispensed Refills Start Date End Date Status Thiamine HCl 100 MG Oral Tablet (vitamin B-1) Take 1 Tablet by mouth daily. 0 Suspended Prochlorperazine Maleate 10 MG Oral Tablet (Compazine)Indica tions:Malignant neoplasm of lower third of esophagus (HCC) Take 1 Tablet by mouth every 6 hours as needed for Nausea. 30 Tablet 2 04/13/2023 Suspended Additional Information Lidocaine-Priloca ine 2.5-2.5 % External Cream (Emla)Indications :Malignant neoplasm of lower third of esophagus (HCC) APPLY TO SKIN OVER MEDIPORT & COVER 1HR PRIOR TO ACCESSING. 30 g 1 04/13/2023 Suspended Additional Information Patient not taking.Reported on 09/22/2023 Dexamethasone 4 MG Oral Tablet (Decadron)Indicat ions:Malignant neoplasm of lower third of esophagus (HCC) Take 8mg twice a day x3 days starting the day before chemotherapy 48 Tablet 0 04/13/2023 Suspended Additional Information Patient not taking.Reported on 09/22/2023 Vitamin B-12 1000 MCG Oral Tablet (Cyanocobalamin)I ndications:Malign ant neoplasm of lower third of esophagus (HCC) Take 1 Tablet by mouth in the morning. 30 Tablet 5 04/14/2023 Suspended Additional Information Patient not taking.Reported on 09/22/2023 Acetaminophen 160 MG/5ML Oral Liquid (Tylenol)Indicati ons:Malignant neoplasm of lower third of esophagus (HCC) Take 20.3 mL by mouth every 4 hours as needed for Pain, Breakthrough. 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 42 mL 0 09/09/2023 Suspended Additional Information Scopolamine 1 MG/3DAYS Transdermal Patch 72 Hour (Transderm Scop) Place 1 Patch over 72 hours topically on the skin every 3 days. 10 Patch 12 09/15/2023 Suspended Additional Information Aprepitant 40 MG Oral Capsule (Emend) Take 1 Capsule by mouth in the morning. 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 0 09/01/2023 Suspended Escitalopram Oxalate 10 MG Oral Tablet (Lexapro) 1/2 tab daily x 7 days then 1 tab daily at bedtime 30 Tablet 5 09/22/2023 Suspended Additional Information documented as of this encounter (statuses as of 09/27/2023) Active Problems Problem Noted Date Diagnosed Date Moderate protein-calorie malnutrition 09/27/2023 Nausea 09/27/2023 Preop [...] as of this encounter (statuses as of 09/27/2023) Immunizations Name Administration Dates Next Due TDAP [...] encounter Miscellaneous Notes * Telephone Encounter - Georgi Long MD - 09/27/2023 7:22 PM EST No he does not. * Telephone Encounter - Chelsie Vazquez OSA - 09/27/2023 3:35 PM EST Pt was admitted to [facility] and an egd was done today. Does he still need another EGD javon'd? * Telephone Encounter - Chelsie Vazquez OSA - 09/26/2023 9:56 AM EST Lmm * Telephone Encounter - Georgi Long MD - 09/23/2023 10:41 AM EST Please schedule EGD with me within 2 weeks to evaluate his post operative nausea. documented in this encounter Plan of Treatment Upcoming Encounters Date Type Department Care Team (Late st Contact Info) Description 10/05/2023 8:15 AM EST Office Visit Hematology/Oncology [facility] [place] [address] [facility] [place] [address] Cipriano Kunh MD [address] [facility] [place] [address] Scheduled Procedures Name Priority Associated Diagnoses Date/Ti de ESOPHAGOGASTRODUODENOSCOPY ( EGD), FLEXIBLE, TRANSORAL, DIAGNOSTIC Abdominal pain 09/27/2023 1:00 PM EST ESOPHAGOGASTRODUODENOSCOPY ( EGD), FLEXIBLE, TRANSORAL, DIAGNOSTIC [...] this encounter Medical Devices Implanted Type Area Plate Inspector Device Identifier Shelf Expiration Date Model / Serial / Lot Cement Hydroset Injectable 5cc - [id number] Implanted:Qty : 1 on 03/15/2018 by Ronak Khoury MD [place] [facility] [place]: Head JOHN 11/09/2019 [id number] / / [id number] Stent Wallf Esoph 23/61iaf50cx - [id number] Implanted:Qty : 1 on 04/01/2023 by Karson Goddard MD at [place] [facility] N/A: Esophagus [employer] : ENDOSCOPY [id number] 09/09/2024 [id number] / / [id number] Power Port 8fr Sngl Lumen Plas - [id number] Implanted:Qty : 1 on 04/19/2023 by Thaddeus Brown DO at OR [facility] Right: Chest CR BARD : PERIPHERAL VASCULAR [id number] 06/14/2024 [id number] / / [id number] documented as of this encounter Advance Directives Latest Code Status on File Code Status Date Activated Date Inactivated Comments Full Code 09/26/2023 11:35 PM Question Answer Comments Discussion of Advance [...] the patient have Health Care Power of Grade Foreman? No Care Teams Customer Loyalty Representative Relationship Specialty Start Date End Date Thaddeus Solis MD [address] [place] [address] PCP - General Family Medicine 09/12/23 documented as of this encounter
--- OUTSIDE RECORDS SUMMARY | 2023-10-04 12:13 | External Medical Summary ---
Author Name Unknown Address Unknown Organization : Laboratory Report Ordering Provider Test Date Status PETER DICKENS 09/27/2023 09:05:00 Final Observation Date Value Abnormality Reference (Units ) Status Zinc, level 09/27/2023 09:05:00 57 Below low normal 6 0-130 (mcg/dL) Final This test was developed and its analytical performance
characteristics have been determined by [employer]
[place] It has
not been cleared or approved by the U.S. Food and Drug
Administration. This assay has been validated pursuant
to the CLIA regulations and is used for clinical
purposes.

Test Performed at:
[facility]
[address] [facility]
[place] [address]
Tom Sanches M.D., Ph.D.,Director of Laboratories Performing Location
--- OUTSIDE RECORDS SUMMARY | 2023-10-04 12:13 | External Medical Summary ---
Author Name Unknown Address Unknown Organization : Laboratory Report Ordering Provider Test Date Status PETER DICKENS 09/27/2023 09:05:00 Final Observation Date Value Abnormality Reference (Units ) Status Vitamin K-1, level 09/27/2023 09:05:00 63 Below low normal 130-1500 (pg/mL) Final This test was developed and its analytical performance
characteristics have been determined by [employer] [place], [place]. It has
not been cleared or approved by the U.S. Food and Drug
Administration. This assay has been validated pursuant
to the CLIA regulations and is used for clinical
purposes.

Test Performed at:
[facility] [place]
[address] [place] [address]
Tom Sanches M.D., Ph.D.,Director of Laboratories Performing Location
--- OUTSIDE RECORDS SUMMARY | 2023-10-04 12:13 | External Medical Summary ---
Author Name Unknown Address Unknown Organization : Laboratory Report Ordering Provider Test Date Status PETER DICKENS 09/27/2023 09:05:00 Final Observation Date Value Abnormality Reference (Units ) Status Copper 09/27/2023 09:05:00 77 70-175 (mc g/dL) Final This test was developed and its analytical performance
characteristics have been determined by [employer]
[place] It has
not been cleared or approved by the U.S. Food and Drug
Administration. This assay has been validated pursuant
to the CLIA regulations and is used for clinical
purposes.

Test Performed at:
[facility]
[address] [place] [address]
Tom Sanches M.D., Ph.D.,Director of Laboratories Performing Location
--- OUTSIDE RECORDS SUMMARY | 2023-10-04 12:13 | External Medical Summary ---
Author Name Unknown Address Unknown Organization K01:LABORATORY [facility] - [facility] [address] [facility] [address] Laboratory Report Ordering Provider Test Date Status THEO DIAZ 09/29/2023 07:36:00 Final Observation Date Value Abnormality Reference (Units ) Status WBC, Total 09/29/2023 07:36:00 12.17 Above high normal 4.00-10.80 (K/uL) Final RBC 09/29/2023 07:36:00 3.64 4.50-5.25 (M/uL) Final Hemoglobin 09/29/2023 07:36:00 10.8 Below low normal 14.0-16.8 (g/dL) Final HCT 09/29/2023 07:36:00 32.9 Below low normal 40.0-48.4 (%) Final MCV 09/29/2023 07:36:00 90.4 82.0-99.5 (fL) Final MCH 09/29/2023 07:36:00 29.7 27.0-34.0 (pg) Final MCHC 09/29/2023 07:36:00 32.8 32.0-36.0 (g/dL) Final RDW 09/29/2023 07:36:00 14.5 11.5-15.5 (%) Final Platelets 09/29/2023 07:36:00 203 140-400 (K/uL) Final MPV 09/29/2023 07:36:00 10.0 6.6-11.1 (fL) Final Nucleated erythrocytes/100 leukocytes [Ratio] in Blood by Automated count 09/29/2023 07:36:00 0 <=0 (/100 WBCs) Final Performing Location LABORATORY [facility] - [address] [facility] [address]
--- OUTSIDE RECORDS SUMMARY | 2023-10-04 12:13 | External Medical Summary ---
Author Name Unknown Address Unknown Organization K01:[facility] - [address] [place] [address] Laboratory Report Ordering Provider Test Date Status THEO DIAZ 09/27/2023 09:05:00 Final Observation Date Value Abnormality Reference (Units ) Status Phosphate 09/27/2023 09:05:00 3.7 2.5-4.8 (m g/dL) Final Performing Location [facility] - [address] [place] [address]
--- OUTSIDE RECORDS SUMMARY | 2023-10-04 12:13 | External Medical Summary ---
Author Name Unknown Address Unknown Organization K01:LABORATORY [facility] - [address] [facility] [place] [facility] [address] Laboratory Report Ordering Provider Test Date Status THEO DIAZ 09/27/2023 09:05:00 Final Observation Date Value Abnormality Reference (Units ) Status Calcium.ionized [Moles/volume] in Blood by Ion-selective membrane electrode (ISE) 09/27/2023 09:05:00 1.24 1.13-1.32 (mmol/L) Final Performing Location LABORATORY [facility] - [address] [place] [facility] [address]
--- OUTSIDE RECORDS SUMMARY | 2023-10-04 12:13 | External Medical Summary ---
Author Name Unknown Address Unknown Organization K01:LABORATORY [facility] - [address] [facility] [address] Laboratory Report Ordering Provider Test Date Status HTEO DIAZ 09/27/2023 09:05:00 Final Observation Date Value Abnormality Reference (Units ) Status BUN 09/27/2023 09:05:00 7 6-20 (mg/dL) Final Creatinine 09/27/2023 09:05:00 0.7 0.6-1.2 (mg/dL) Final Glomerular filtration rate/1.73 sq M.predicted [Volume Rate/Area] in Serum, Plasma or Blood by Creatinine-based formula (CKD-EPI) 09/27/2023 09:05:00 >90 >=60 (mL/min) Final eGFR is calculated based on the CKD-EPI 2020 equation SODIUM 09/27/2023 09:05:00 136 135-146 (m mol/L) Final Potassium 09/27/2023 09:05:00 3.7 3.5-5.1 (m mol/L) Final Cl 09/27/2023 09:05:00 98 98-107 (mm ol/L) Final CO2 09/27/2023 09:05:00 25 22-32 (mmo l/L) Final Anion gap 09/27/2023 09:05:00 13 7-15 (mmol /L) Final Glucose 09/27/2023 09:05:00 102 70-120 (mg /dL) Final Calcium 09/27/2023 09:05:00 9.3 8.4-10.2 ( mg/dL) Final Performing Location LABORATORY [facility] - [address] [facility] [address]
--- OUTSIDE RECORDS SUMMARY | 2023-10-04 12:13 | External Medical Summary | Summary of Care ---
Author Name Unknown Organization [facility] Address [address] [place] [address] Phone [phone] Care Team Providers Care Felting Machine Operator Helper Name Role Phone Thaddeus Solis MD Primary Care Provider [phone] Encounter Details Date Type Department Care Team (Late st Contact Info) Description 09/23/2023 Telephone Gastroenterology, [facility] [address] [place] [address] Georgi Long MD [address] [facility] [place] [address] Allergies Active Allergy Reactions Criticality Noted Date [...] encounter Miscellaneous Notes * Telephone Encounter - Chelsie Vazquez OSA - 09/27/2023 3:35 PM EST Pt was admitted to [place] and an egd was done today. Does [...] AM EST Office Visit Hematology/Oncology [facility] [place] [address] [facility] [place] [address] Cipriano Kuhn MD [address] [facility] [place] [address] Scheduled Procedures Name Priority Associated Diagnoses Date/Ti mo ESOPHAGOGASTRODUODENOSCOPY ( EGD), FLEXIBLE, TRANSORAL, DIAGNOSTIC Abdominal [...] this encounter Medical Devices Implanted Type Area Brick Setter Operator Device Identifier Shelf Expiration Date Model / Serial / Lot Cement Hydroset Injectable 5cc - [id number] Implanted:Qty : 1 on 03/15/2018 by Ronak Khoury MD at [place] [facility] Left: Head JOHN 11/09/2019 [id number] / / [id number] Stent Wallf Esoph 23/34zdd74qj - [id number] Implanted:Qty : 1 on 04/01/2023 by Karson Goddard MD at ENDOSCOPY [facility] N/A: Esophagus [employer] : ENDOSCOPY [id number] 09/09/2024 [id number] / / [id number] Power Port 8fr Sngl Lumen Plas - [id number] Implanted:Qty : 1 on 04/19/2023 by Thaddeus Brown DO at OR [facility] Right: Chest CR BARD : PERIPHERAL VASCULAR [id number] 06/14/2024 [id number] / / [id number] documented as of this encounter Advance Directives [...] the patient have Health Care Power of Visitor Service Assistant? No Care Teams Felting Machine Operator Helper Relationship Specialty Start Date End Date Thaddeus Solis MD [address] [facility] [address] PCP - General Family Medicine 09/12/23 documented as of this encounter
--- OUTSIDE RECORDS SUMMARY | 2023-10-04 12:13 | External Medical Summary ---
Author Name Unknown Address Unknown Organization K01:[place] [facility] [place] [address] [facility] [address] Laboratory Report Ordering Provider Test Date Status THEO DIAZ 09/28/2023 07:42:00 Final Observation Date Value Abnormality Reference (Units ) Status BUN 09/28/2023 07:42:00 7 6-20 (mg/dL) Final Creatinine 09/28/2023 07:42:00 0.6 0.6-1.2 (mg/dL) Final Glomerular filtration rate/1.73 sq M.predicted [Volume Rate/Area] in Serum, Plasma or Blood by Creatinine-based formula (CKD-EPI) 09/28/2023 07:42:00 >90 >=60 (mL/min) Final eGFR is calculated based on the CKD-EPI 2020 equation SODIUM 09/28/2023 07:42:00 137 135-146 (m mol/L) Final Potassium 09/28/2023 07:42:00 3.4 Below low normal 3.5 -5.1 (mmol/L) Final Cl 09/28/2023 07:42:00 104 98-107 (mm ol/L) Final CO2 09/28/2023 07:42:00 26 22-32 (mmo l/L) Final Anion gap 09/28/2023 07:42:00 7 7-15 (mmol /L) Final Glucose 09/28/2023 07:42:00 118 70-120 (mg /dL) Final Calcium 09/28/2023 07:42:00 8.4 8.4-10.2 ( mg/dL) Final Performing Location [place] [place] [address] [facility] [address]
--- OUTSIDE RECORDS SUMMARY | 2023-10-04 12:13 | External Medical Summary ---
Author Name Unknown Address Unknown Organization [id number]:LAB[facility]ATORY [facility] [place] - [address] [facility] [address] Laboratory Report Ordering Provider Test Date Status THEO DIAZ 09/28/2023 07:42:00 Final Observation Date Value Abnormality Reference (Units ) Status WBC, Total 09/28/2023 07:42:00 6.41 4.00-10.80 (K/uL) Final RBC 09/28/2023 07:42:00 3.66 4.50-5.25 (M/uL) Final Hemoglobin 09/28/2023 07:42:00 10.6 Below low normal 14.0-16.8 (g/dL) Final HCT 09/28/2023 07:42:00 32.5 Below low normal 40.0-48.4 (%) Final MCV 09/28/2023 07:42:00 88.8 82.0-99.5 (fL) Final MCH 09/28/2023 07:42:00 29.0 27.0-34.0 (pg) Final MCHC 09/28/2023 07:42:00 32.6 32.0-36.0 (g/dL) Final RDW 09/28/2023 07:42:00 14.3 11.5-15.5 (%) Final Platelets 09/28/2023 07:42:00 219 140-400 (K/uL) Final MPV 09/28/2023 07:42:00 10.1 6.6-11.1 (fL) Final Nucleated erythrocytes/100 leukocytes [Ratio] in Blood by Automated count 09/28/2023 07:42:00 0 <=0 (/100 WBCs) Final Performing Location LABORATORY [facility] [place] - [address] [place] [address]
--- OUTSIDE RECORDS SUMMARY | 2023-10-04 12:13 | External Medical Summary ---
Author Name Unknown Address Unknown Organization : Laboratory Report Ordering Provider Test Date Status PETER DICKENS 09/27/2023 09:05:00 Final Observation Date Value Abnormality Reference (Units ) Status Thiamine [Moles/volume] in Blood 09/27/2023 09:05:00 97 78-185 (nmol/L) Final Vitamin supplementation with in 24 hours prior to
blood draw may affect the accuracy of the results.
This test was developed and its analytical performance
characteristics have been determined by [facility] [place]. It has
not been cleared or approved by the U.S. Food and Drug
Administration. This assay has been validated pursuant
to the CLIA regulations and is used for clinical
purposes.

Test Performed at:
[facility]
[address]
[place] [address]
Tom Sanches M.D., Ph.D.,Director of Laboratories Performing Location
--- OUTSIDE RECORDS SUMMARY | 2023-10-04 12:13 | External Medical Summary ---
Author Name Unknown Address Unknown Organization [id number]:LABORATORY [facility] [place] - [address] [place] [address] Laboratory Report Ordering Provider Test Date Status THEO DIAZ 09/29/2023 07:36:00 Final Observation Date Value Abnormality Reference (Units ) Status BUN 09/29/2023 07:36:00 8 6-20 (mg/dL) Final Creatinine 09/29/2023 07:36:00 0.5 Below low normal 0.6-1.2 (mg/dL) Final Glomerular filtration rate/1.73 sq M.predicted [Volume Rate/Area] in Serum, Plasma or Blood by Creatinine-based formula (CKD-EPI) 09/29/2023 07:36:00 >90 >=60 (mL/min) Final eGFR is calculated based on the CKD-EPI 2020 equation SODIUM 09/29/2023 07:36:00 136 135-146 (m mol/L) Final Potassium 09/29/2023 07:36:00 4.1 3.5-5.1 (m mol/L) Final Cl 09/29/2023 07:36:00 104 98-107 (mm ol/L) Final CO2 09/29/2023 07:36:00 25 22-32 (mmo l/L) Final Anion gap 09/29/2023 07:36:00 7 7-15 (mmol /L) Final Glucose 09/29/2023 07:36:00 127 Above high normal 70 -120 (mg/dL) Final Calcium 09/29/2023 07:36:00 8.6 8.4-10.2 ( mg/dL) Final Performing Location LABORATORY [facility] [place] - [address] [place] [address]
--- OUTSIDE RECORDS SUMMARY | 2023-10-04 12:13 | External Medical Summary ---
Author Name Unknown Address Unknown Organization K01:LABORATORY [facility] [place] - [address] [facility] [address] Laboratory Report Ordering Provider Test Date Status PETER DICKENS 09/27/2023 01:21:00 Final Observation Date Value Abnormality Reference (Units ) Status Triglyceride 09/27/2023 01:21:00 75 <=174 ( mg/dL) Final Triglyceride Reference Range s (mg/dL):
<150 Acceptable
150-174 Borderline high
175-499 High
>=500 Very high Performing Location [facility] [address] [facility] [address]
--- OUTSIDE RECORDS SUMMARY | 2023-10-04 12:13 | External Medical Summary ---
Author Name Unknown Address Unknown Organization : Laboratory Report Ordering Provider Test Date Status PETER DICKENS 09/27/2023 09:05:00 Final Observation Date Value Abnormality Reference (Units ) Status Vitamin A, level 09/27/2023 09:05:00 39 38- 98 (mcg/dL) Final Vitamin supplementation with in 24 hours prior to
blood draw may affect the accuracy of the results.
This test was developed and its analytical performance
characteristics have been determined by [facility] [place]. It has
not been cleared or approved by the U.S. Food and Drug
Administration. This assay has been validated pursuant
to the CLIA regulations and is used for clinical
purposes.

Test Performed at:
[facility]
[address]
[place] [address]
Tom Sanches M.D., Ph.D.,Director of Laboratories Performing Location
--- OUTSIDE RECORDS SUMMARY | 2023-10-04 12:13 | External Medical Summary ---
Author Name Unknown Address Unknown Organization K01:LABORATORY [facility] - [address] [place] [address] Laboratory Report Ordering Provider Test Date Status THEO DIAZ 09/27/2023 09:05:00 Final Observation Date Value Abnormality Reference (Units ) Status Magnesium 09/27/2023 09:05:00 1.9 1.5-2.6 (m g/dL) Final Performing Location LABORATORY [facility] - [address] [place] [address]
--- OUTSIDE RECORDS SUMMARY | 2023-10-04 12:13 | External Medical Summary ---
Author Name Unknown Address Unknown Organization : Laboratory Report Ordering Provider Test Date Status PETER DICKENS 09/27/2023 09:05:00 Final Observation Date Value Abnormality Reference (Units ) Status METHYLMALONIC ACID 09/27/2023 09:05:00 99 8 7-318 (nmol/L) Final This test was developed and its analytical performance
characteristics have been determined by [facility]
[place] It has
not been cleared or approved by the U.S. Food and Drug
Administration. This assay has been validated pursuant
to the CLIA regulations and is used for clinical
purposes.

Test Performed at:
[facility]
[address]
[place] [address]
Tom Sanches M.D., Ph.D.,Director of Laboratories Performing Location
--- OUTSIDE RECORDS SUMMARY | 2023-10-04 12:13 | External Medical Summary ---
Author Name Unknown Address Unknown Organization K01:LABORATORY [facility] [place] - [address] [facility] [address] Laboratory Report Ordering Provider Test Date Status RAQUELCATERINA 09/27/2023 01:21:00 Final Observation Date Value Abnormality Reference (Units ) Status Lactic Acid 09/27/2023 01:21:00 0.8 0.4-2.0 (mmol/L) Final Performing Location [facility] [address] [facility] [address]
--- OUTSIDE RECORDS SUMMARY | 2023-10-04 12:13 | External Medical Summary ---
Author Name Unknown Address Unknown Organization K01:LABORATORY [facility] [place] - [address] [address] Laboratory Report Ordering Provider Test Date Status MOSES FRANCOIS 09/27/2023 09:05:00 Final Warfarin Therapy
INR: 2 .0-3.0 conventional anticoagulation
INR: 2.5- 3.5 high intensity anticoagulation Observation Date Value Abnormality Reference (Units ) Status PT 09/27/2023 09:05:00 14.9 11.6-15.2 (seconds) Final INR 09/27/2023 09:05:00 1.2 0.8-1.2 Final Performing Location LABORATORY [facility] [place] - [address] [place] [address]
--- OUTSIDE RECORDS SUMMARY | 2023-10-04 12:13 | External Medical Summary ---
Author Name Unknown Address Unknown Organization K01:LABORATORY [facility] - [address] [place] [address] Laboratory Report Ordering Provider Test Date Status CATERINA GARCÍA 09/27/2023 01:21:00 Final Observation Date Value Abnormality Reference (Units ) Status Magnesium 09/27/2023 01:21:00 1.6 1.5-2.6 (m g/dL) Final Performing Location LABORATORY [facility] - [address] [place] [address]
--- OUTSIDE RECORDS SUMMARY | 2023-10-04 12:13 | External Medical Summary ---
Author Name Unknown Address Unknown Organization K01:LABORATORY [facility] [place] - [address] [facility] [address] Laboratory Report Ordering Provider Test Date Status THEO DIAZ 09/27/2023 09:05:00 Final Observation Date Value Abnormality Reference (Units ) Status WBC, Total 09/27/2023 09:05:00 6.62 4.00-10.80 (K/uL) Final RBC 09/27/2023 09:05:00 4.04 4.50-5.25 (M/uL) Final Hemoglobin 09/27/2023 09:05:00 12.1 Below low normal 14.0-16.8 (g/dL) Final HCT 09/27/2023 09:05:00 36.0 Below low normal 40.0-48.4 (%) Final MCV 09/27/2023 09:05:00 89.1 82.0-99.5 (fL) Final MCH 09/27/2023 09:05:00 30.0 27.0-34.0 (pg) Final MCHC 09/27/2023 09:05:00 33.6 32.0-36.0 (g/dL) Final RDW 09/27/2023 09:05:00 14.5 11.5-15.5 (%) Final Platelets 09/27/2023 09:05:00 248 140-400 (K/uL) Final MPV 09/27/2023 09:05:00 10.4 6.6-11.1 (fL) Final Nucleated erythrocytes/100 leukocytes [Ratio] in Blood by Automated count 09/27/2023 09:05:00 0 <=0 (/100 WBCs) Final Performing Location LABORATORY [facility] [place] - [address] [place] [address]
--- OUTSIDE RECORDS SUMMARY | 2023-10-04 12:13 | External Medical Summary ---
Author Name Unknown Address Unknown Organization : Laboratory Report Ordering Provider Test Date Status PETER DICKENS 09/27/2023 09:05:00 Final Observation Date Value Abnormality Reference (Units ) Status Vitamin E, level 09/27/2023 09:05:00 6.0 5.7 -19.9 (mg/L) Final Levels of alpha-tocopherol < 5 mg/L are consistent
with Vitamin E deficiency in adults. Beta+gamma tocopherol [Mass/ volume] in Serum or Plasma 09/27/2023 09:05:00 <1.0 <=4.3 (mg/L) Final Vitamin supplementation with in 24 hours prior to
blood draw may affect the accuracy of the results.
This test was developed and its analytical performance
characteristics have been determined by [facility] [place]. It has
not been cleared or approved by the U.S. Food and Drug
Administration. This assay has been validated pursuant
to the CLIA regulations and is used for clinical
purposes.

Test Performed at:
[facility]
[address]
[place] [address]
Tom Sanches M.D., Ph.D.,Director of Laboratories Performing Location
--- OUTSIDE RECORDS SUMMARY | 2023-10-04 12:13 | External Medical Summary ---
Author Name Unknown Address Unknown Organization K01:LABORATORY [facility] - [address] [place] [address] Laboratory Report Ordering Provider Test Date Status JOETHEO 09/28/2023 07:42:00 Final Observation Date Value Abnormality Reference (Units ) Status Magnesium 09/28/2023 07:42:00 2.8 Above high normal 1. 5-2.6 (mg/dL) Final Performing Location [facility] [address] [facility] [address]
--- OUTSIDE RECORDS SUMMARY | 2023-10-04 12:13 | External Medical Summary ---
Author Name Unknown Address Unknown Organization K01:LABORATORY [facility] [place] - [address] [facility] [address] Laboratory Report Ordering Provider Test Date Status THEO DIAZ 09/28/2023 07:42:00 Final Observation Date Value Abnormality Reference (Units ) Status Calcium.ionized [Moles/volume] in Blood by Ion-selective membrane electrode (ISE) 09/28/2023 07:42:00 1.20 1.13-1.32 (mmol/L) Final Performing Location LABORATORY [facility] [place] - [address] [facility] [address]
--- OUTSIDE RECORDS SUMMARY | 2023-10-04 12:13 | External Medical Summary ---
Author Name Unknown Address Unknown Organization K01:LABORATORY [facility] [place] - [address] [place] [address] Laboratory Report Ordering Provider Test Date Status PETER DICKENS 09/27/2023 01:21:00 Final Observation Date Value Abnormality Reference (Units ) Status Vitamin B12 09/27/2023 01:21:00 066 341-4909 (pg/mL) Final Performing Location LABORATORY [facility] - [address] [place] [address]
--- OUTSIDE RECORDS SUMMARY | 2023-10-04 12:14 | External Medical Summary | Summary of Care ---
Author Name Unknown Organization [facility] Address [address] [place] [address] Phone [phone] Care Team Providers Care Quality Coordinator Name Role Phone Thaddeus Solis MD Primary Care Provider [phone] Reason for Visit * Reason Comments Vomiting X3 days * Auth/Cert Specialty Diagnoses / Procedures Referred By Chary angeles Referred To Contact Referral ID Status Reason Start Date Expiration Date Visits Re quested Visits Authorized [id number] Encounter Details Date Type Department Care Team (Late st Contact Info) Description 09/16/2023 8:36 AM EST - 09/16/2023 11:25 AM EST Emergency [facility] ([facility] Emergency Department ([facility]) [address], [place] [id number] Quintin Ivan, DO [address] [place] [address] Vomiting with nausea, not intractable (Primary Dx) Discharge Disposition: Home - Self Care Allergies Active Allergy Reactions Criticality Noted Date Comments Carbamazepine Rash Medium 02/20/2018 documented as of this encounter (statuses as of 09/16/2023) Medications Medication Sig Dispensed Refills Start Date [...] for Nausea. 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 Do all this for 11 days. 22 Tablet 0 09/05/2023 09/16/2023 Active Morphine Sulfate (Concentrate) 100 MG/5ML Oral [...] 3 days. 10 Patch 12 09/15/2023 Active Aprepitant 40 MG Oral Capsule (Emend) Take 1 Capsule by mouth in the morning. 30 Capsule 0 09/16/2023 Active documented as of this encounter (statuses as of 09/16/2023) Active Problems Problem Noted Date Diagnosed Date Preop examination 09/16/2023 Postprocedural intraabdominal abscess 09/03/2023 [...] as of this encounter (statuses as of 09/16/2023) Immunizations Name Administration Dates Next Due TDAP [...] Sign Reading Time Taken Comments Blood Pressure 121/81 09/16/2023 11:00 AM EST Pulse 68 09/16/2023 11:00 AM EST Temperature 36.1 C (97 F) 09/16/2023 8:35 AM EST Respiratory Rate 20 09/16/2023 11:00 AM EST Oxygen Saturation 99% 09/16/2023 11:00 AM EST Inhaled Oxygen Concentration - - Weight 56.7 kg (125 lb) 09/16/2023 8:35 AM EST Height - - Body Mass Index 17.43 08/02/2023 6:46 PM EST documented in this [...] 08/02/2023 documented as of this encounter Discharge Instructions * Discharge Instructions* Quintin Ivan DO - 09/16/2023 11:18 AM EST You have been seen and evaluated in the Emergency Department of [facility], in [place], [place]. Please read the discharge instructions below regarding your care. Summary Of Today's Visit: You were seen today for vomiting, you were treated with nausea medication (Tigan) and IV fluid. Unfortunately Tigan is a medication that is only available through an IV or injection. We are going to discharge you on a medication called Emend which should help. Please follow-up with your primary medical team New Prescriptions/Medications from this Visit: Emend (nausea medication) Follow-Up Plan / Continuation of care - Please follow-up with your primary care provider within the next 24 hours at least by telephone. - please follow-up with your Oncology team. If at any point your symptoms return, worsen, change, or you develop new symptoms you are welcome to return to the emergency department at any time for re-evaluation. Thank you for allowing us to care for you. Our goal is to provide you the best care. If you have any emergency needs in the future we will be glad to help you again. We are here to serve you! documented in this encounter Consult Notes * Leia Denny MD - 09/16/2023 11:25 AM EST CONSULT - Surgical Oncology [facility] [address] Name: Edward Yoder Location: Date: 09/16/2023 Time: 11:51 AM Date and Time Patient was Seen: 09/16/2023 at 11:51 AM REQUESTING SERVICE: ED REASON FOR CONSULT: Edward Yoder [facility] is seen at the request of in consultation for "intractable nausea". 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 He was recently admitted from 09/02-09/05 for dehydration and a 5cm fluid collection near his anastomosis. He was doing well after discharge. Three days ago, he went to get his port flushed and received some IV fluids andshortly after he became very nauseated. He is able to tolerate po and keep it down but the nausea is just constant. He denies any fevers, chills, chest pain, SOB, abdominal pain, emesis. HOSPITAL PROBLEM LIST: Active Problems: * No [...] performed by Homar Blair MD at ENDOSCOPY [facility] EGD, FLEXIBLE, DIAGNOSTIC 03/30/2023 ESOPHAGOGASTRODUODENOSCOPY (EGD), FLEXIBLE, TRANSORAL, DIAGNOSTIC performed by Homar Blair MD at ENDOSCOPY [facility] EGD, W/ENDOSCOPIC US N/A 04/01/2023 ESOPHAGOGASTRODUODENOSCOPY (EGD), FLEXIBLE, TRANSORAL, ENDOSCOPIC ULTRASOUND performed by Karson Greco MD at [place] [facility] EXPLORE/DECOMPRESS CRANIAL NERVES Left 03/15/2018 CRANIECTOMY SUBOCCIPITAL EXPLORATION CRANIAL NERVES performed by Ronak Khoury MD at [place] [facility] INSER TUNN ACC DEV;5 YRS/OLDER Right 04/19/2023 INSERT TUNNELED CENTRAL VENOUS ACCESS WITH SUBQ PORT performed by Thaddeus Brown DO at OR [facility] MICROSURGERY ADD-ON Left 03/15/2018 MICROSURGICAL SURGERY REQUIRING MICROSCOPE LISTED SEPARATELY performed by Ronak Khoury MD at [place] [facility] REMOVE STOMACH, TOTAL N/A 08/02/2023 GASTRECTOMY TOTAL WITH ESOPHAGOENTEROSTOMY performed by Praveen Edmonds MD at [place] [facility] SPINAL FLUID TAP FOR DRAINAGE Left 03/15/2018 SPINAL PUNCTURE DRAINAGE CSF performed by Ronak Khoury MD at [place] [facility] MEDICATIONS: Prior to Admission medications Medication Sig Last Dose Discont. Aprepitant 40 MG Oral Capsule (Emend) Take [...] bedtime. Do all this for 11 days. LORazepam 0.5 MG Oral Tablet (Ativan) TAKE ONE TABLET BY MOUTH EVERY 6 HOURS NEEDED FOR ANXIETY OR SLEEP Ondansetron HCl 8 MG Oral Tablet (Zofran) Take 1 Tablet by mouth every 8 hours as needed for Nausea. Acetaminophen 160 MG/5ML Oral Liquid (Tylenol) Take 20.3 mL by mouth every 4 hours as needed for Pain, Breakthrough. Vitamin B-12 1000 MCG Oral Tablet (Cyanocobalamin) Take 1 Tablet by mouth in the morning. Dexamethasone 4 MG Oral Tablet (Decadron) Take 8mg twice a day x3 days starting the day before chemotherapy Lidocaine-Prilocaine 2.5-2.5 % External Cream (Emla) APPLY TO SKIN OVER MEDIPORT & COVER 1HR PRIOR TO ACCESSING. Prochlorperazine Maleate 10 MG Oral Tablet (Compazine) Take 1 Tablet by mouth every 6 hours as needed for Nausea. Thiamine HCl 100 MG Oral Tablet (vitamin B-1) Take 1 Tablet by mouth daily. FAMILY HISTORY: Family History Problem Relation Age [...] Drug use: Yes Types: Marijuana Comment: infrequently ALLERGIES: Tegretol [carbamazepine] ROS: I have performed a review of systems, including: Consitutional, Eyes, ENT, Cardiovascular, Respiratory, Gastrointestinal, Musculoskeletal, Skin, Neurological, & Hematologic/Lymphatic. All positives noted in HPI, otherwise negative. PHYSICAL EXAMINATION: Most Recent Vital Signs: BP: 121 mmHg/81 mmHg (09/16/23 1100) Pulse: 68 (09/16/23 1100) Temp: 36.11 C (09/16/23 0835) Temp Summary: Temp Min: 36.1 C (97 F) Max: 36.1 C (97 F) SpO2: 99 % (09/16/23 1100) O2 flow rate: Supplemental O2 Delivery: Room Air, None (09/16/231099) Vital Signs Over Last 24 Hours: Systolic BP: Most Recent Systolic BP Av.5 mmHg Min: 121 mmHg Max: 124 mmHg Temperature: Most Recent Temperature Av.11 C Min: 36.11 C Max: 36.11 C Pulse: Pulse Av Min: 62 Max: 71 Respirations: Resp Av.7 Min: 18 Max: 21 SpO2: SpO2 Av.8 % Min: 99 % Max: 100 % Physical Exam: Constitutional: no acute distress HEENT: normocephalic, atraumatic Eyes: sclera and conjunctiva normal CV: normal rate Chest: normal respiratory effort Abdomen: soft, nondistended, nonTTP, incision well healed Extremities: no clubbing, cyanosis, or edema, otherwise grossly normal, warm, and dry Skin: warm, dry Neuro: alert, oriented CBC Lab Results Component Value Date/Time WBC 5.76 09/16/2023 08:58 AM WBC 8.71 03/16/2018 04:22 AM HGB 12.0 (L) 09/16/2023 08:58 AM HGB 14.1 04/11/2021 12:00 AM HGB 11.6 (L) 03/16/2018 04:22 AM HCT 36.8 (L) 09/16/2023 08:58 AM HCT 33.8 (L) 03/16/2018 04:22 AM PLT 283 09/16/2023 08:58 AM PLT 175 03/16/2018 04:22 AM BMP Lab Results Component Value Date/Time NA 137 09/16/2023 08:58 AM NA 140 03/16/2018 04:22 AM POTASSIUM 3.6 09/16/2023 08:58 AM POTASSIUM 3.9 04/11/2021 12:00 AM POTASSIUM 3.9 03/16/2018 04:22 AM CL 99 09/16/2023 08:58 AM CL 105 03/16/2018 04:22 AM CO2 26 09/16/2023 08:58 AM CO2 24 03/16/2018 04:22 AM BUN 3 (L) 09/16/2023 08:58 AM BUN 9 03/16/2018 04:22 AM CREAT 0.7 09/16/2023 08:58 AM CREAT 1.03 04/11/2021 12:00 AM CREAT 0.9 03/16/2018 04:22 AM CA 10.1 09/16/2023 08:58 AM CA 8.6 03/16/2018 04:22 AM Creatinine Lab Results Component Value Date/Time CREAT 0.7 09/16/2023 08:58 AM CREAT 0.5 (L) 09/12/2023 12:13 PM CREAT 0.7 09/05/2023 07:28 AM CREAT 1.03 04/11/2021 12:00 AM CREAT 0.9 03/16/2018 04:22 AM CREAT 0.9 03/15/2018 07:53 AM CREAT 0.9 02/16/2018 10:17 AM Lactate Lab Results Component Value Date/Time LAC 2.1 (H) 09/16/2023 08:58 AM LAC 0.9 09/02/2023 04:54 PM LAC 1.2 03/31/2023 05:34 PM Ca, Mg, Phos Lab Results Component Value Date/Time CA 10.1 09/16/2023 08:58 AM CA 8.6 03/16/2018 04:22 AM MG 1.8 09/16/2023 08:58 AM PHOSPHORUS 3.4 09/16/2023 08:58 AM Hepatic Function Panel Lab Results Component Value Date/Time TBIL 0.4 09/16/2023 08:58 AM DBIL <0.2 09/16/2023 08:58 AM ALKP 110 09/16/2023 08:58 AM AST 23 09/16/2023 08:58 AM ALT 43 09/16/2023 08:58 AM PROT 7.2 09/16/2023 08:58 AM Lipase Lab Results Component Value Date/Time LIPA 27 03/31/2023 05:34 PM IMAGING: No new IMPRESSION and PLAN: Edward Yoder is a 58 year old male s/p total gastrectomy presenting with intractable nausea - no need for admission this time - will send with emend and already prescribed scopolamine patches for nausea - discussed that if this does not resolve in a week, will scheduled for outpatient EGD. Patient agreeable with above plan - dispo per ED Patient examined w/ Dr. Edmonds REFERRING PHYSICIAN: 1. Self PRIMARY CARE PHYSICIAN: Thaddeus Solis MD Associated attestation - Praveen Edmonds MD - 09/16/2023 1:55 PM EST I saw and evaluated the patient today. I have reviewed the trainee note and agree. Will revise anti-emetics documented in this encounter Miscellaneous Notes * Pt Handout (on AVS) - Quintin Ivan DO - 09/16/2023 11:17 AM EST Images from the original note were not included. [id number] Diet for Vomiting or Diarrhea (Adult) Your symptoms may return or get worse after eating certain foods listed below. If this happens, stop eating these foods until your symptoms ease and you feel better. Once the vomiting stops, follow the steps below. During the first 12 to 24 hours During the first 12 to 24 hours, follow this diet: Drinks. Have plain water, sports drinks (like electrolyte solutions), drinks without caffeine, mineral water (plain or flavored), and clear fruit juices. Don't have drinks with caffeine or citrus juices. This is because they are high in acid and can irritate your stomach. Soups. Have clear broth. Desserts. Have plain gelatin, frozen ice pops, and fruit juice bars without pieces of fruit. As you feel better, you may add 6 to 8 ounces of yogurt per day. If you have diarrhea, don't have foodsor drinks with sugar, high-fructose corn syrup, or sugar alcohols. During the next 24 hours During the next 24 hours, you may add these to the above: Hot cereal, plain toast, bread, rolls, and crackers Plain noodles, rice, mashed potatoes, and chicken noodle or rice soup Unsweetened canned fruit (not pineapple) and bananas Don't eat more than 15 grams of fat a day. Do this by staying away from margarine, butter, oils, mayonnaise, sauces, gravies, fried foods, peanut butter, meat, poultry, and fish. Don't eat much fiber. Stay away from raw or cooked vegetables, fresh fruits (except bananas), and bran cereals. Limit how much caffeine and chocolate you have. Don't use any spices or seasonings except salt. During the next 24 hours Slowly go back to your normal diet, as you feel better and your symptoms ease. Last Reviewed Date: 12/13/202119999218-7211 The [employer]. All rights reserved. This information is not intended as a substitute for professional medical care. Always follow your healthcare professional's instructions. * Communication - Leia Denny MD - 09/16/2023 8:50 AM EST SWAT page received. Please obtain the following labs: CBC, BMP, lactate, Mg, Phos, type and screen.Will evaluate patient to see if imaging is warranted. He is well known to the surg onc service and was recently admitted for dehydration. * Ancillary Progress Note - Prachi Rodgers BSW - 09/16/2023 8:44 AM EST CARE MANAGEMENT - ED TRANSITION NOTE [facility] [address] Name: Edward Yoder Location: X Date: 09/16/2023 Time: 8:45 AM Risk Stratification/Psychosocial/Care Gaps Caregiver Information Patient Contacts Name Relation Home Work Mobile LATONIA SALVADOR Spouse [phone] Cindy Thomas Sibling [phone] Fabricio Yoder Sibling [phone] Patient/Family Expectations: Gen Surgery SWAT Narrative: CM received a SWAT alert. Pt. was admitted to [facility] on 09/02/23 until 09/05/23 under Surgery Blue Service. Discharge diagnosis was Postprocedural intraabdominal Abscess. Pt. was discharged Home with no services. Pt. came to ED today due to Vomiting. CM sent SWAT page to Resident, MOD, and SWAT Provider. Transition Planning Additional Considerations: --- Anticipated Transportation at Discharge: Likely family Care Management will continue to monitor and assist with discharge planning needs documented in this encounter Plan of Treatment Upcoming Encounters Date Type Department Care Team (Late st Contact Info) Description 09/23/2023 8:20 AM EST Office Visit General Surgery, [facility] [address] [place] [address] Praveen Edmonds MD [address] [place] [address] 10/05/2023 8:15 AM EST Office Visit Hematology/Oncology [facility] [address] [place] [address] Cipriano Kuhn MD [address] [place] [address] Pending Results Name Type Priority Associated Diagnoses Date /Time CULTURE, BLOOD Lab Routine 09/16/2023 9:07 AM EST CULTURE, BLOOD Lab Routine 09/16/2023 8:58 AM EST Scheduled Procedures Name Priority Associated [...] this encounter Medical Devices Implanted Type Area Aerial Photogrammetrist Device Identifier Shelf Expiration Date Model / Serial / Lot Cement Hydroset Injectable 5cc - [id number] Implanted:Qty : 1 on 03/15/2018 by Ronak Khoury MD at [place] [facility] Left: Head JOHN 11/09/2019 [id number] / / [id number] Stent Wallf Esoph 23/[id number] - [id number] Implanted:Qty : 1 on 04/01/2023 by Karson Goddard MD at [place]OSCOPY [facility] N/A: Esophagus [employer] : ENDOSCOPY [id number] 09/09/2024 [id number] / / [id number] Power Port 8fr Sngl Lumen Plas - [id number] Implanted:Qty : 1 on 04/19/2023 by Thaddeus Brown DO at OR [facility] Right: Chest CR BARD : PERIPHERAL VASCULAR [id number] 06/14/2024 [id number] / / [id number] documented as of this encounter Procedures Procedure Name Priority Date/Time Associated Diagnosis Comments URINALYSIS, REFLEX TO CULTURE STAT 09/16/2023 9:19 AM EST URINALYSIS, REFLEX TO CULTURE (CUP ONLY) STAT 09/16/2023 9:19 AM EST SARS-COV-2 (COVID-19), NAAT STAT 09/16/2023 9:19 AM EST URINALYSIS, REFLEX TO CULTURE (NOT FOR NEUTROPENIC PATIENTS) STAT 09/16/2023 9:19 AM EST CULTURE, BLOOD Routine 09/16/2023 9:07 AM EST LACTATE, WHOLE BLOOD WITH REFLEX IF ABNORMAL STAT 09/16/2023 8:58 AM EST DIFFERENTIAL, AUTOMATED STAT 09/16/2023 8:58 AM EST TROPONIN T, HIGH SENSITIVITY STAT 09/16/2023 8:58 AM EST PROCALCITONIN STAT 09/16/2023 8:58 AM EST HEPATIC FUNCTION PANEL STAT 8:58 AM EST BASIC METABOLIC PANEL STAT 09/16/2023 8:58 AM EST CBC STAT 09/16/2023 8:58 AM EST PHOSPHORUS Add-on 09/16/2023 8:58 AM EST CULTURE, BLOOD Routine 09/16/2023 8:58 AM EST CBC STAT 09/16/2023 8:58 AM EST MAGNESIUM Add-on 09/16/2023 8:58 AM EST documented in this encounter Results * (ABNORMAL) URINALYSIS, REFLEX TO CULTURE (09/16/2023 9:19 AM EST) Color, Urine Light Yellow Colorless, Light Yellow, Yellow, Dark Yellow 09/16/2023 9:51 AM EST [facility] Clarity, Urine Clear Clear 09/16/2023 9:51 AM EST [facility] Glucose, Urine Negative Negative mg/dL 09/16/2023 9:51 AM EST [facility] Bilirubin, Urine Negative Negative 09/16/2023 9:51 AM EST [facility] Ketone, Urine Negative Negative mg/dL 09/16/2023 9:51 AM EST [facility] Specific Mcnary, Urine 1.015 1.003 - 1.030 09/16/2023 9:51 AM EST [facility] Blood, Urine Negative Negative 09/16/2023 9:51 AM EST [facility] pH, Urine 6.0 5.0 - 7.5 Units 09/16/2023 9:51 AM EST [facility] Protein, Urine Trace(A) Negative mg/dL 09/16/2023 9:51 AM EST [facility] Urobilinogen, Urine Normal Normal mg/dL 09/16/2023 9:51 AM EST [facility] Nitrite, Urine Negative Negative 09/16/2023 9:51 AM EST [facility] Esterase, Urine Negative Negative 09/16/2023 9:51 AM EST [facility] RBC, Urine 0-2 0 - 2 /HPF 09/16/2023 9:51 AM EST [facility] WBC, Urine 0-2 0 - 2 /HPF 09/16/2023 9:51 AM EST [facility] Bacteria, Urine 0-25 0 - 25 /HPF 09/16/2023 9:51 AM EST [facility] Amorphous Crystals, Urine Many(A) None /HPF 09/16/2023 9:51 AM EST [facility] Hyaline, Cast, Urine 1-4(A) None /LPF 09/16/2023 9:51 AM EST [facility] Culture, Urine 09/16/2023 9:51 AM EST [facility] Comment:Culture not indicate d by urinalysis results Urine Urine specimen obtained by clean catch procedure / Unknown Non-blood Collection / Unknown 09/16/2023 9:19 AM EST 09/16/2023 9:28 AM EST Cade Michael DO LAB URINE ORD ERABLES LABORATORY [address] [place] [address] * URINALYSIS, REFLEX TO CULTURE (CUP ONLY) (09/16/2023 9:19 AM EST) Urinalysis, Reflex to Culture Specimen Specimen collected and received 09/16/2023 11:01 AM EST LABORATORY [facility] Urine Urine specimen obtained by clean catch procedure / Unknown Non-blood Collection / Unknown 09/16/2023 9:19 AM EST 09/16/2023 9:27 AM EST Cade Michael DO LAB URINE ORD ERABLES LABORATORY [facility] [address] [place] [address] * SARS-COV-2 (COVID-19), NAAT (09/16/2023 9:19 AM EST) SARS-CoV-2 (COVID-19) Result Negative Negative 09/16/2023 10:33 AM EST LABORATORY [facility] Comment: 2019 Novel Coronavirus not detected. This express test was developed and its performance characteristics determined by [employer]. It has not been cleared or approved [...] was developed and performance characteristics determined by [employer]. The validation of alternate specimen types has not been cleared or approved by the U.S. Food and Drug Administration (FDA). It has been determined that such clearance is not necessary. Upper Respiratory Mid-turbinate nasal swab / Unknown Non-blood Collection / Unknown 09/16/2023 9:19 AM EST 09/16/2023 9:40 AM EST Cade Michael DO LAB MICRO - G ENERAL ORDERABLES Performing Organization Address City/[facility]/ZIP Co de Phone Number [facility] [address] [place] [address] * PHOSPHORUS (09/16/2023 8:58 AM EST) Phosphorus 3.4 2.5 - 4.8 mg/dL 09/16/2023 9:56 AM EST [facility] Blood Venous blood specimen / Unknown Venipuncture / Unknown 09/16/2023 8:58 AM EST 09/16/2023 9:21 AM EST Quintin Ivan DO LAB BLOOD ORDE RABLES Performing Organization Address [facility] Co de Phone Number [facility] [address] [place] [address] * MAGNESIUM (09/16/2023 8:58 AM EST) Magnesium 1.8 1.5 - 2.6 mg/dL 09/16/2023 9:56 AM EST [facility] Blood Venous blood specimen / Unknown Venipuncture / Unknown 09/16/2023 8:58 AM EST 09/16/2023 9:21 AM EST Quintin Ivan DO LAB BLOOD ORDE RABLES Performing Organization Address [facility] Co de Phone Number [facility] [address] [place] [address] * DIFFERENTIAL, AUTOMATED (09/16/2023 8:58 AM EST) WBC 5.76 4.00 - 10.80 K/uL 09/16/2023 9:31 AM EST [facility] Neutrophils % 66.0 40.0 - 75.0 % 09/16/2023 9:31 AM EST [facility] Lymphocytes % 24.0 18.0 - 42.0 % 09/16/2023 9:31 AM EST [facility] Monocytes % 9.2 1.0 - 11.0 % 09/16/2023 9:31 AM EST [facility] Eosinophils % 0.2 0.0 - 6.0 % 09/16/2023 9:31 AM EST [facility] Basophils % 0.3 0.0 - 2.0 % 09/16/2023 9:31 AM EST [facility] Immature Granulocytes % 0.3 0.0 - 2.0 % 09/16/2023 9:31 AM EST [facility] Absolute Neutrophils 3.80 1.80 - 7.70 K/uL 09/16/2023 9:31 AM EST [facility] Absolute Lymphocytes 1.38 1.00 - 4.80 K/ul 09/16/2023 9:31 AM EST [facility] Absolute Monocytes 0.53 0.00 - 1.10 K/uL 09/16/2023 9:31 AM EST [facility] Absolute Eosinophils 0.01 0.00 - 0.70 K/uL 09/16/2023 9:31 AM EST [facility] Absolute Basophils 0.02 0.00 - 0.20 K/uL 09/16/2023 9:31 AM EST [facility] Absolute Immature Granulocytes 0.02 0.00 - 0.20 K/uL 09/16/2023 9:31 AM EST [facility] Blood Venous blood specimen / Unknown Venipuncture / Unknown 09/16/2023 8:58 AM EST 09/16/2023 9:20 AM EST Cade Michael DO LAB BLOOD ORD ERABLES [facility] [address] [place] [address] * (ABNORMAL) CBC (09/16/2023 8:58 AM EST) WBC 5.76 4.00 - 10.80 K/uL 09/16/2023 9:31 AM EST [facility] RBC 4.10 4.50 - 5.25 M/uL 09/16/2023 9:31 AM EST [facility] HGB 12.0(L) 14.0 - 16.8 g/dL 09/16/2023 9:31 AM EST [facility] HCT 36.8(L) 40.0 - 48.4 % 09/16/2023 9:31 AM EST [facility] MCV 89.8 82.0 - 99.5 fL 09/16/2023 9:31 AM EST [facility] MCH 29.3 27.0 - 34.0 pg 09/16/2023 9:31 AM EST [facility] MCHC 32.6 32.0 - 36.0 g/dL 09/16/2023 9:31 AM EST [facility] RDW 15.3 11.5 - 15.5 % 09/16/2023 9:31 AM EST [facility] PLT 283 140 - 400 K/uL 09/16/2023 9:31 AM EST [facility] MPV 10.0 6.6 - 11.1 fL 09/16/2023 9:31 AM EST [facility] nRBCs 0 <=0 /100 WBCs 09/16/2023 9:31 AM EST [facility] Blood Venous blood specimen / Unknown Venipuncture / Unknown 09/16/2023 8:58 AM EST 09/16/2023 9:20 AM EST Cade Michael DO LAB BLOOD ORD ERABLES [facility] [address] [place] [address] * PROCALCITONIN (09/16/2023 8:58 AM EST) Procalcitonin <0.06 <0.10 ng/mL 09/16/2023 9:56 AM EST [facility] Blood Venous blood specimen / Unknown Venipuncture / Unknown 09/16/2023 8:58 AM EST 09/16/2023 9:21 AM EST Narrative [facility] - 09/16/2023 9:56 AM EST Less than 0.5 ng/mL: Low risk for progression to sepsis. Review patients condition for localized infections. 0.5 to 2.0 ng/mL: Intermediate risk for progresion to sepsis. Review underlying conditions. Recommend repeat PCT after 6 hours has elapsed. Greater than 2.0 ng/mL: high risk for progression to sepsis unless other causes are known. Cade Michael LAB BLOOD ORD ERABLES Performing Organization Address [facility] Co de Phone Number LABORATORY [facility] [address] [place] [address] * HEPATIC FUNCTION PANEL (09/16/2023 8:58 AM EST) Pathologist [facility] [place] Albumin 4.1 3.8 - 5.0 g/dL 09/16/2023 9:56 AM EST [facility] AST 23 10 - 50 U/L 09/16/2023 9:56 AM EST [facility] Alkaline Phosphatase 110 35 - 130 U/L 09/16/2023 9:56 AM EST [facility] ALT 43 10 - 50 U/L 09/16/2023 9:56 AM EST [facility] Bilirubin, Total 0.4 <=1.2 mg/dL 09/16/2023 9:56 AM EST [facility] Bilirubin, Direct <0.2 0.0 - 0.3 mg/dL 09/16/2023 9:56 AM EST [facility] Protein 7.2 6.0 - 8.3 g/dL 09/16/2023 9:56 AM EST [facility] Blood Venous blood specimen / Unknown Venipuncture / Unknown 09/16/2023 8:58 AM EST 09/16/2023 9:21 AM EST Cade Michael DO LAB BLOOD ORD ERABLES Performing Organization Address City/[facility] Co de Phone Number LAB[facility]ATORY [facility] [address] [place] [address] * (ABNORMAL) LACTATE, WHOLE BLOOD WITH REFLEX IF ABNORMAL (09/16/2023 8:58 AM EST) Pathologist [facility] [place] Lactate, Whole Blood 2.1(H) 0.4 - 2.0 mmol/L 09/16/2023 9:24 AM EST [facility] Blood Venous blood specimen / Unknown Venipuncture / Unknown 09/16/2023 8:58 AM EST 09/16/2023 9:20 AM EST Cade Michael DO LAB BLOOD ORD ERABLES LAB[facility]ATORY [facility] [address] [place] [address] * TROPONIN T, HIGH SENSITIVITY (09/16/2023 8:58 AM EST) Troponin T, High Sensitivity 10 <=22 ng/L 09/16/2023 9:56 AM EST LABORATORY [facility] Blood Venous blood specimen / Unknown Venipuncture / Unknown 09/16/2023 8:58 AM EST 09/16/2023 9:21 AM EST Cade Verdinhoney LAB BLOOD ORD ERABLES Performing Organization Address City/[facility]/ZIP Co de Phone Number LABORATORY [facility] [address] [place] [address] * (ABNORMAL) BASIC METABOLIC PANEL (09/16/2023 8:58 AM EST) Pathologist [facility] [place] BUN 3(L) 6 - 20 mg/dL 09/16/2023 9:56 AM EST [facility] Creatinine 0.7 0.6 - 1.2 mg/dL 09/16/2023 9:56 AM EST [facility] Estimated Glomerular Filtration Rate >90 >=60 mL/min 09/16/2023 9:56 AM EST [facility] Comment:eGFR is calculated b ased on the CKD-EPI 2020 equation Sodium 137 135 - 146 mmol/L 09/16/2023 9:56 AM EST [facility] Potassium 3.6 3.5 - 5.1 mmol/L 09/16/2023 9:56 AM EST [facility] Chloride 99 98 - 107 mmol/L 09/16/2023 9:56 AM EST [facility] CO2 26 22 - 32 mmol/L 09/16/2023 9:56 AM EST [facility] Anion Gap 12 7 - 15 mmol/L 09/16/2023 9:56 AM EST [facility] Glucose 111 70 - 120 mg/dL 09/16/2023 9:56 AM EST [facility] Calcium 10.1 8.4 - 10.2 mg/dL 09/16/2023 9:56 AM EST LAB[facility]ATORY [facility] Blood Venous blood specimen / Unknown Venipuncture / Unknown 09/16/2023 8:58 AM EST 09/16/2023 9:21 AM EST Cade Michael DO LAB BLOOD ORD ERABLES LABORATORY [facility] [address] [place] [address] documented in this encounter Visit Diagnoses Diagnosis Vomiting with nausea, not intractable- Primary documented in this encounter Administered Medications Inactive Administered Medications - up to 3 most recent administrations Medication Order MAR Action Action Date Dose Rate Site NSS 0.9% 500 mL bolus infusion Intravenous, at 500 mL/hr Administer over 60 Minutes, Wide open, This infusion may be completed in less than 1 hour, since it will be a wide open rate, ONCE, 1 dose, On Tue09/16/23 at 0930 New Bag 09/16/2023 9:20 AM EST 500 mL 500 mL/hr trimethobenzamide (Tigan) inj 100 mg 100 mg, Intramuscular, QID(AM/NOON/PM/HS), First dose (after last modification) on Tue09/16/23 at 0945, Until Discontinued Given 09/16/2023 10:28 AM EST 100 mg Arm Left Upper documented in this encounter Active and Recently Administered Medications Times are shown in EST. Scheduled Medication Order 09/14/2023 09/15/2023 09/16/2023 NSS 0.9% 500 mL bolus infusion (COMPLETED) Intravenous, at 500 mL/hr Administer over 60 Minutes, Wide open, This infusion may be completed in less than 1 hour, since it will be a wide open rate, ONCE, 1 dose, On Tue09/16/23 at 0930 0920 (New Bag - Prov ider: Ambar Mendez RN)1000 (Stopped - Provider: Ambar Mendez RN - Comment: finished) trimethobenzamide (Tigan) inj 100 mg 100 mg, Intramuscular, QID(AM/NOON/PM/HS), First dose (after last modification) on Tue09/16/23 at 0945, Until Discontinued 1028 (Given - Provid er: Ambar Mendez RN) documented in this encounter Advance Directives Latest Code Status on File Code Status Date Activated Date Inactivated Comments Full Code 09/02/2023 4:06 PM 09/05/2023 6:42 PM Question Answer Comments Discussion of Advance Direct alec occurred with: Patient Code Status History Code Status Date Activated [...] the patient have Health Care Power of Shaker Tender? No Full Code 03/15/2018 8:20 AM 03/16/2018 2:36 PM This or enrique reflects the patients wishes and were consensually agreed upon. Question Answer Comments Discussion of Advance Directives occurred with: Patient Does the patient have a Living Will? No Does the patient have Health Care Power of Shaker Tender? No Care Teams Quality Coordinator Relationship Specialty Start Date End Date Thaddeus Solis MD [address] [place] [address] PCP - General Family Medicine 09/12/23 documented as of this encounter
--- OUTSIDE RECORDS SUMMARY | 2023-10-04 12:14 | External Medical Summary | Summary of Care ---
Author Name Unknown Organization [facility] Address [address] [place] [address] Phone [phone] Care Team Providers Care Lead Electrical Engineer Name Role Phone Thaddeus Solis MD Primary Care Provider [phone] Encounter Details Date Type Department Care Team (Late st Contact Info) Description 09/19/2023 Documentation Surgical [facility], [facility] [address] [place] [address] Lexy Ruiz, RN [address] [place] [address] Allergies Active Allergy Reactions Criticality Noted Date Comments Carbamazepine Rash Medium 02/20/2018 documented as of this encounter (statuses as of 09/19/2023) Medications Medication Sig Dispensed Refills Start Date [...] as of this encounter (statuses as of 09/19/2023) Active Problems Problem Noted Date Diagnosed Date [...] as of this encounter (statuses as of 09/19/2023) Immunizations Name Administration Dates Next Due TDAP [...] as of this encounter Progress Notes * Lexy Ruiz RN - 09/19/2023 8:49 AM EST Spoke to pt inside account representative, "states he is so weak" again advised to take pt to the ED for evaluation. Furniture Mover Driver verbalized understanding. documented in this encounter Plan of Treatment Upcoming Encounters Date Type Department Care Team (Late st Contact Info) Description 09/23/2023 8:20 AM EST Office Visit General Surgery, [place] [address] [place] [address] Praveen Edmonds MD [address] [place] [address] 10/05/2023 8:15 AM EST Office Visit Hematology/Oncology [place] [address] [place] [address] Cipriano Kuhn MD [address] [facility] [place] [address] Scheduled Procedures Name Priority Associated Diagnoses Date/Ti [...] this encounter Medical Devices Implanted Type Area Tax Audit Manager Device Identifier Shelf Expiration Date Model / Serial / Lot Cement Hydroset Injectable 5cc - [id number] Implanted:Qty : 1 on 03/15/2018 by Ronak Khoury MD at OR [facility] Left: Head JOHN 11/09/2019 [id number] / / [id number] Stent Wallf Esoph 23/[id number] - [id number] Implanted:Qty : 1 on 04/01/2023 by Karson Goddard MD at ENDOSCOPY [facility] N/A: Esophagus [employer] : ENDOSCOPY [id number] 09/09/2024 [id number] / / [id number] Power Port 8fr Sngl Lumen Plas - [id number] Implanted:Qty : 1 on 04/19/2023 by Thaddeus Brown DO at OR [facility] Right: Chest CR BARD : PERIPHERAL VASCULAR [id number] 06/14/2024 [id number] / / [id number] documented as of this encounter Advance Directives [...] the patient have Health Care Power of Bee Keeper? No Full Code 03/15/2018 8:20 AM 03/16/2018 2:36 PM This or enrique reflects the patients wishes and were consensually agreed upon. Question Answer Comments Discussion of Advance Directives occurred with: Patient Does the patient have a Living Will? No Does the patient have Health Care Power of Bee Keeper? No Care Teams Lead Electrical Engineer Relationship Specialty Start Date End Date Thaddeus Solis MD [address] [place] [address] PCP - General Family Medicine 09/12/23 documented as of this encounter
--- OUTSIDE RECORDS SUMMARY | 2023-10-04 12:14 | External Medical Summary | Summary of Care ---
Author Name Unknown Organization [facility] Address [address] [place] [address] Phone [phone] Care Team Providers Care Sales Engineer Name Role Phone Thaddeus Solis MD Primary Care Provider [phone] Encounter Details Date Type Department Care Team (Late st Contact Info) Description 09/23/2023 Telephone Gastroenterology, [facility] [address] [place] [address] Georgi Long MD [address] [facility] [place] [address] Allergies Active Allergy Reactions Criticality Noted Date Comments Carbamazepine Rash Medium 02/20/2018 documented as of this encounter (statuses as of 09/23/2023) Medications Medication Sig Dispensed Refills Start Date [...] the morning. 30 Capsule 0 09/16/2023 Active LORazepam 0.5 MG Oral Tablet (Ativan)Indication [...] at bedtime 30 Tablet 5 09/22/2023 Active documented as of this encounter (statuses as of 09/23/2023) Active Problems Problem Noted Date Diagnosed Date [...] as of this encounter (statuses as of 09/23/2023) Immunizations Name Administration Dates Next Due TDAP [...] 10/05/2023 8:15 AM EST Office Visit Hematology/Oncology [place] Anal[place] Flores [address] [place] [address] Cipriano Kuhn MD [address] [place] [address] Scheduled Procedures Name Priority Associated Diagnoses Date/Ti [...] this encounter Medical Devices Implanted Type Area Net Trainer Device Identifier Shelf Expiration Date Model / Serial / Lot Cement Hydroset Injectable 5cc - [id number] Implanted:Qty : 1 on 03/15/2018 by Ronak Khoury MD at OR [facility] Left: Head JOHN 11/09/2019 [id number] / / [id number] Stent Wallf Esoph 23/[id number] - [id number] Implanted:Qty : 1 on 04/01/2023 by Karson Goddard MD at ENDOSCOPY [facility] N/A: Esophagus [employer] : ENDOSCOPY [id number] 09/09/2024 [id number] / / [id number] Power Port 8fr Sngl Lumen Plas - [id number] Implanted:Qty : 1 on 04/19/2023 by Thaddeus Brown, DO at OR [facility] Right: Chest CR BARD : PERIPHERAL VASCULAR [id number] 06/14/2024 [id number] / / [id number] documented as of this encounter Advance Directives [...] the patient have Health Care Power of Baked Goods Stock Clerk? No Full Code 03/15/2018 8:20 AM 03/16/2018 2:36 PM This or enrique reflects the patients wishes and were consensually agreed upon. Question Answer Comments Discussion of Advance Directives occurred with: Patient Does the patient have a Living Will? No Does the patient have Health Care Power of Baked Goods Stock Clerk? No Care Teams Sales Engineer Relationship Specialty Start Date End Date Thaddeus Solis MD [address] [place] [address] PCP - General Family Medicine 09/12/23 documented as of this encounter
--- OUTSIDE RECORDS SUMMARY | 2023-10-04 12:14 | External Medical Summary ---
Author Name Unknown Address Unknown Organization [id number]:LABORATORY [facility] - [facility] [address] [facility] [address] Laboratory Report Ordering Provider Test Date Status CATERINA GARCÍA 09/27/2023 01:21:00 Final Observation Date Value Abnormality Reference (Units ) Status WBC, Total 09/27/2023 01:21:00 5.47 4.00-10.80 (K/uL) Final RBC 09/27/2023 01:21:00 3.82 4.50-5.25 (M/uL) Final Hemoglobin 09/27/2023 01:21:00 11.1 Below low normal 14.0-16.8 (g/dL) Final HCT 09/27/2023 01:21:00 34.0 Below low normal 40.0-48.4 (%) Final MCV 09/27/2023 01:21:00 89.0 82.0-99.5 (fL) Final MCH 09/27/2023 01:21:00 29.1 27.0-34.0 (pg) Final MCHC 09/27/2023 01:21:00 32.6 32.0-36.0 (g/dL) Final RDW 09/27/2023 01:21:00 14.6 11.5-15.5 (%) Final Platelets 09/27/2023 01:21:00 224 140-400 (K/uL) Final MPV 09/27/2023 01:21:00 9.7 6.6-11.1 (fL) Final Nucleated erythrocytes/100 leukocytes [Ratio] in Blood by Automated count 09/27/2023 01:21:00 0 <=0 (/100 WBCs) Final Performing Location LABORATORY [facility] - [address] [facility] [address]
--- OUTSIDE RECORDS SUMMARY | 2023-10-04 12:14 | External Medical Summary ---
Author Name Unknown Address Unknown Organization K01:[facility] - [address] [place] [address] Laboratory Report Ordering Provider Test Date Status RAQUELCATERINA 09/27/2023 01:21:00 Final Observation Date Value Abnormality Reference (Units ) Status Phosphate 09/27/2023 01:21:00 4.1 2.5-4.8 (m g/dL) Final Performing Location [facility] - [address] [place] [address]
--- OUTSIDE RECORDS SUMMARY | 2023-10-04 12:14 | External Medical Summary ---
Author Name Unknown Address Unknown Organization [id number]:LABORATORY [facility] - [address] [place] [address] Laboratory Report Ordering Provider Test Date Status PETER DICKENS 09/27/2023 01:21:00 Final Observation Date Value Abnormality Reference (Units ) Status Folic Acid 09/27/2023 01:21:00 12.8 >4.5 (ng/ mL) Final Performing Location [facility] - [address] [place] [address]
--- OUTSIDE RECORDS SUMMARY | 2023-10-04 12:14 | External Medical Summary | Summary of Care ---
Author Name Unknown Organization [facility] Address [address] [place] [address] Phone [phone] Care Team Providers Care Hydrometeorology Teacher Name Role Phone Thaddeus Solis MD Primary Care Provider [phone] Encounter Details Date Type Department Care Team (Late st Contact Info) Description 09/23/2023 8:20 AM EST [facility] General Surgery, [place] [address] [place] [address] Praveen Edmonds MD [address] [place] [address] Malnutrition of moderate degree (HCC)* Allergies Active Allergy Reactions Criticality Noted Date [...] Progress Notes * Praveen Edmonds MD - 09/23/2023 8:38 AM EST Patient location: HOME. I was in a hospital or clinic location. After connecting through televideo,patient was verified with two unique identifiers. Patient (or authorized legal commercial pest control representative) was then informed that this was a Telemedicine visit and being conducted confidentially over secure lines. Methods to assure confidentiality were taken. Patient acknowledged consent and understanding of pr ivacy and security of the Telemedicine visit. The patient agreed to participate. SURGICAL / BREAST [place] [address] DATE: 09/23/2023 PROCEDURE: 08/02/2023 Gastrectomy A: Esophagus (staple line [...] D: Anastomotic rings, excision: -Negative for tumor. Continues with nausea and dry heaves- since the ED visit he has felt better but not everyday- -he did get the scopolamine patches but di not get the emend yet OE: Telemed IMPRESSION / PLAN: S/P gastrectomy PAth reviewed and he had a CR from chemotherapy Following with Dr. Kuhn Continues with nausea and dry heaves of phlegm - will get a EGD to further evaluate the anastomosis Praveen Edmonds MD wildlife officer Section Head, Surgical Oncology and Endocrine Surgery [facility] [place] [address] Office: [phone] [email or web address] documented in this encounter Plan of Treatment Upcoming Encounters Date Type Department Care Team (Late st Contact Info) Description 10/05/2023 8:15 AM EST Office Visit Hematology/Oncology [place] [address] [place] [address] Cipriano Kuhn MD 200 [facility] [place] [address] Scheduled Orders Name Type Priority Associated Diagnoses Orde r Schedule EGD, FLEXIBLE, DIAGNOSTIC Procedures Routine Malnutrition of moderate degree (HCC) Ordered: 09/23/2023 Scheduled Procedures Name Priority Associated Diagnoses Date/Ti [...] this encounter Medical Devices Implanted Type Area Conservation Officer Device Identifier Shelf Expiration Date Model / Serial / Lot Cement Hydroset Injectable 5cc - [id number] Implanted:Qty : 1 on 03/15/2018 by Ronak Khoury MD at OR [facility] Left: Head JOHN 11/09/2019 [id number] / / [id number] Stent Wallf Esoph 23/[id number] - [id number] Implanted:Qty : 1 on 04/01/2023 by Karson Goddard MD at ENDOSCOPY [facility] N/A: Esophagus [employer] : ENDOSCOPY [id number] 09/09/2024 [id number] / / [id number] Power Port 8fr Sngl Lumen Plas - [id number] Implanted:Qty : 1 on 04/19/2023 by Thaddeus Brown DO at OR [facility] Right: Chest CR BARD : PERIPHERAL VASCULAR [id number] 06/14/2024 [id number] / / [id number] documented as of this encounter Visit Diagnoses Diagnosis Malnutrition of moderate degree (HCC)- Primary Malnutrition of moderate degree documented in this encounter Advance Directives Latest [...] the patient have Health Care Power of Concrete Block Plant Supervisor? No Full Code 03/15/2018 8:20 AM 03/16/2018 2:36 PM This or enrique reflects the patients wishes and were consensually agreed upon. Question Answer Comments Discussion of Advance Directives occurred with: Patient Does the patient have a Living Will? No Does the patient have Health Care Power of Concrete Block Plant Supervisor? No Care Teams Hydrometeorology Teacher Relationship Specialty Start Date End Date Thaddeus Solis MD [address] [place] [address] PCP - General Family Medicine 09/12/23 documented as of this encounter
--- OUTSIDE RECORDS SUMMARY | 2023-10-04 12:14 | External Medical Summary | Summary of Care ---
Author Name Unknown Organization [facility] Address [address] [place] [address] Phone [phone] Care Team Providers Care Plastic Tile Setter Name Role Phone Thaddeus Solis MD Primary Care Provider [phone] Encounter Details Date Type Department Care Team (Late st Contact Info) Description 09/23/2023 Telephone Gastroenterology, [facility] [address] [place] [address] Georgi Long MD 132 [facility] [place] [address] Allergies Active Allergy Reactions Criticality Noted Date Comments Carbamazepine Rash Medium 02/20/2018 documented as of this encounter (statuses as of 09/26/2023) Medications Medication Sig Dispensed Refills Start Date [...] as of this encounter (statuses as of 09/26/2023) Active Problems Problem Noted Date Diagnosed Date [...] as of this encounter (statuses as of 09/26/2023) Immunizations Name Administration Dates Next Due TDAP [...] 8:15 AM EST Office Visit Hematology/Oncology [place] [address] [facility] [place] [address] Cipriano Kuhn MD [address] [place] [address] Scheduled Procedures Name Priority Associated Diagnoses Date/Ti [...] this encounter Medical Devices Implanted Type Area Ceramic Engineering Professor Device Identifier Shelf Expiration Date Model / Serial / Lot Cement Hydroset Injectable 5cc - [id number] Implanted:Qty : 1 on 03/15/2018 by Ronak Khoury MD [place] [facility] [place]: Head JOHN 11/09/2019 [id number] / / [id number] Stent Wallf Esoph 23/[id number] - [id number] Implanted:Qty : 1 on 04/01/2023 by Kasron Goddard MD [place] [facility] [place]/A: Esophagus [employer] : ENDOSCOPY [id number] 09/09/2024 [id number] / / [id number] Power Port 8fr Sngl Lumen Plas - [id number] Implanted:Qty : 1 on 04/19/2023 by Thaddeus Brown DO at OR [facility] Right: Chest CR BARD : PERIPHERAL VASCULAR [id number] 06/14/2024 [id number] / / [id number] documented as of this encounter Advance Directives [...] the patient have Health Care Power of Community Health Planning Director? No Full Code 03/15/2018 8:20 AM 03/16/2018 2:36 PM This or enrique reflects the patients wishes and were consensually agreed upon. Question Answer Comments Discussion of Advance Directives occurred with: Patient Does the patient have a Living Will? No Does the patient have Health Care Power of Community Health Planning Director? No Care Teams Plastic Tile Setter Relationship Specialty Start Date End Date Thaddeus Solis MD [address] [place] [address] PCP - General Family Medicine 09/12/23 documented as of this encounter
--- OUTSIDE RECORDS SUMMARY | 2023-10-04 12:14 | External Medical Summary ---
Author Name Unknown Address Unknown Organization K01:LABORATORY [facility] - [address] [facility] [address] Laboratory Report Ordering Provider Test Date Status CATERINA GARCÍA 09/27/2023 01:21:00 Final Observation Date Value Abnormality Reference (Units ) Status BUN 09/27/2023 01:21:00 6 6-20 (mg/dL) Final Creatinine 09/27/2023 01:21:00 0.6 0.6-1.2 (mg/dL) Final Glomerular filtration rate/1.73 sq M.predicted [Volume Rate/Area] in Serum, Plasma or Blood by Creatinine-based formula (CKD-EPI) 09/27/2023 01:21:00 >90 >=60 (mL/min) Final eGFR is calculated based on the CKD-EPI 2020 equation SODIUM 09/27/2023 01:21:00 139 135-146 (m mol/L) Final Potassium 09/27/2023 01:21:00 3.7 3.5-5.1 (m mol/L) Final Cl 09/27/2023 01:21:00 103 98-107 (mm ol/L) Final CO2 09/27/2023 01:21:00 25 22-32 (mmo l/L) Final Anion gap 09/27/2023 01:21:00 11 7-15 (mmol /L) Final Glucose 09/27/2023 01:21:00 113 70-120 (mg /dL) Final Calcium 09/27/2023 01:21:00 9.2 8.4-10.2 ( mg/dL) Final Performing Location LABORATORY [facility] [place] - [address] [facility] [address]
--- OUTSIDE RECORDS SUMMARY | 2023-10-04 12:14 | External Medical Summary ---
Author Name Unknown Address Unknown Organization K01:LABORATORY [facility] - [address] [facility] [place] [facility] [address] Laboratory Report Ordering Provider Test Date Status THEO DIAZ 09/27/2023 00:54:13 Final SCREENING Observation Date Value Abnormality Reference (Units ) Status SARS Coronavirus 2 09/27/2023 00:54:13 Negative N egative Final 2019 Novel Coronavirus not d etected.

This express test was developed and its performance characteristics determined by [facility]. It has not been cleared or approved [...] (RT-PCR) test, or a Centers for Disease Control-acceptable equivalent. The test is performed in a high complexity Clinical Laboratory Improvement Amendments-(CLIA) certified laboratory. The test is acceptable for SARS-CoV-2 diagnosis, surveillance, and travel within the [place] and to most countries. Please check with local testing authorities about requirements before travel.

The validation of bronchial specimens, tracheal aspirates, and sputum for this assay was developed and performance characteristics determined by [facility]. The validation of alternate specimen types has not been cleared or approved by the U.S. Food and Drug Administration (FDA). It has been determined that such clearance is not necessary. Performing Location LABORATORY [facility] - [facility] [address] [facility] [address]
--- OUTSIDE RECORDS SUMMARY | 2023-10-04 12:14 | External Medical Summary | Summary of Care ---
Author Name Unknown Organization [facility] Address [address] [place] [address] Phone [phone] Care Team Providers Care Semiconductor Wafers Etcher Stripper Name Role Phone Thaddeus Solis MD Primary Care Provider [phone] Encounter Details Date Type Department Care Team (Late st Contact Info) Description 09/23/2023 Orders Only PATIENT PORTAL DO NOT DELETE THIS DEPT USED BY PAUL ELLIS [id number] Allergies Active Allergy Reactions Criticality Noted Date [...] AM EST Office Visit Hematology/Oncology [facility] [place] [address] [place] [address] Cipriano Kuhn MD [address] [place] [address] Scheduled Procedures Name Priority Associated Diagnoses Date/Ti [...] this encounter Medical Devices Implanted Type Area Supervisor Finishing Device Identifier Shelf Expiration Date Model / Serial / Lot Cement Hydroset Injectable 5cc - [id number] Implanted:Qty : 1 on 03/15/2018 by Ronak Khoury MD [place] [facility] [place]: Head JOHN 11/09/2019 [id number] / / [id number] Stent Wallf Esoph 23/23inm19az - [id number] Implanted:Qty : 1 on 04/01/2023 by Karson Goddard MD at [place] [facility] [place]/A: Esophagus [employer] : ENDOSCOPY [id number] 09/09/2024 [id number] / / [id number] Power Port 8fr Sngl Lumen Plas - [id number] Implanted:Qty : 1 on 04/19/2023 by Thaddeus Brown DO at OR [facility] Right: Chest CR BARD : PERIPHERAL VASCULAR [id number] 06/14/2024 [id number] / / [id number] documented as of this encounter Advance Directives [...] patient have Health Care Power of Practice Representative? No Full Code 03/15/2018 8:20 AM 03/16/2018 2:36 PM This or enrique reflects the patients wishes and were consensually agreed upon. Question Answer Comments Discussion of Advance Directives occurred with: Patient Does the patient have a Living Will? No Does the patient have Health Care Power of Practice Representative? No Care Teams Semiconductor Wafers Etcher Stripper Relationship Specialty Start Date End Date Thaddeus Solis MD [address] [place] [address] PCP - General Family Medicine 09/12/23 documented as of this encounter
--- OUTSIDE RECORDS SUMMARY | 2023-10-04 12:14 | External Medical Summary | Summary of Care ---
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) Allergies Active Allergy Reactions Criticality Noted Date Comments Carbamazepine Rash Medium 02/20/2018 documented as of this encounter (statuses as of 09/22/2023) Medications Medication Sig Dispensed Refills Start Date [...] as of this encounter (statuses as of 09/22/2023) Active Problems Problem Noted Date Diagnosed Date [...] as of this encounter (statuses as of 09/22/2023) Immunizations Name Administration Dates Next Due TDAP [...] Sign Reading Time Taken Comments Blood Pressure 88/56 09/22/2023 9:26 AM EST Pulse 76 09/22/2023 9:26 AM EST Temperature 35.9 C (96.6 F) 09/22/2023 9:26 AM ES T Respiratory Rate 16 09/22/2023 9:26 AM EST Oxygen Saturation 99% 09/22/2023 9:26 AM EST Inhaled Oxygen Concentration - - Weight 58 kg (127 lb 12.8 oz) 09/22/2023 9:26 AM EST Height - - Body Mass Index 17.82 08/02/2023 6:46 PM EST documented in this [...] as of this encounter Progress Notes * Thaddeus Solis MD - 09/22/2023 10:12 AM EST Subjective: Edward Yoder is a 58 year old male. Chief Complaint Patient presents with Hospital Follow-Up NEW PATIENT HPI: 58-year-old whom I am seen for the 1st time generally has enjoyed very good health until the summer of 2022. 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 He initially did chemotherapy in ultimately did for courses. He then underwent Yeison-en-Y surgery perDr. Edmonds August 02, 2023. Since that is surgery he is Um struggled with intractable nausea and weakness and intermittent dehydration. He was hospitalized at [facility] because of persistent symptoms a proximally 3 weeks ago. At that time imaging showed there was a abscess at the esophageal gastric anastomosis. He is placed on Augmentin which he used all but 2 days. Throughout that proximally 10 days his nausea was Um notably worse. [facility]. He was given IV fluids in the Augmentin was discontinued (he only had 2 more days). He had a couple more bad days but seen mainly the last [address] He actually was able to eat several times yesterday and drink Gatorade. Feels reasonable theday although he feels Um a little bit constipated. No fever. He does admit to depressive symptoms. Additionally Um is bothered with anxiety in it sounds like when the anxiety level goes up his other symptoms also Um increase. He has never been on an antidepressant in the past. He has use some lorazepam as prescribed by Dr. Kuhn his oncologist. He is scheduled to have a video visit with Dr. Edmonds tomorrow. I am not sure what the plan is in regards to the Um abscess Um intra-abdominal. Patient has been using a scopolamine patch and he feels that that has helped the nausea. He has been prescribed Emend but a cost to him is 40 dollars a pillin [place] he clearly is holding back in hope is that the scopolamine patch will have significant benefit . He had used Um ensure but not recently. Again he is hoping that he is able to continue eat solid foods as he did yesterday. 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 30 Tablet 2 Acetaminophen 160 MG/5ML Oral Liquid (Tylenol) Take 20.3 mL by mouth every 4 hours as needed for Pain, Breakthrough. 118 mL 3 Ondansetron HCl 8 MG Oral Tablet (Zofran) Take 1 Tablet by mouth every 8 hours as needed for Nausea. 30 Tablet 2 Morphine Sulfate (Concentrate) 100 MG/5ML Oral Solution Take 0.25 mL by mouth every 4 hours as needed for Pain, Moderate. 42 mL 0 Scopolamine 1 MG/3DAYS Transdermal Patch 72 Hour (Transderm Scop) Place 1 Patch over 72 hours topically on the skin every 3 days. 10 Patch 12 Aprepitant 40 MG Oral Capsule (Emend) Take 1 Capsule by mouth in the morning. 30 Capsule 0 LORazepam 0.5 MG Oral Tablet (Ativan) TAKE ONE TABLET BY MOUTH EVERY 6 HOURS NEEDED FOR ANXIETY OR SLEEP 30 Tablet 0 Escitalopram Oxalate 10 MG Oral Tablet (Lexapro) 1/2 tab daily x 7 days then 1 tab daily at [id number] Tablet 5 Thiamine HCl 100 MG Oral Tablet (vitamin B-1) Take 1 Tablet by mouth daily. (Patient not taking: Reported on 09/22/2023) Lidocaine-Prilocaine 2.5-2.5 % External Cream (Emla) APPLY TO SKIN OVER MEDIPORT & COVER 1HR PRIOR TO ACCESSING. (Patient not taking: Reported on 09/22/2023) 30 g 1 Dexamethasone 4 MG Oral Tablet (Decadron) Take 8mg twice a day x3 days starting the day before chemotherapy (Patient not taking: Reported on 09/22/2023) 48 Tablet 0 Vitamin B-12 1000 MCG Oral Tablet (Cyanocobalamin) Take 1 Tablet by mouth in the morning. (Patient not taking: Reported on 09/22/2023) 30 Tablet 5 Pantoprazole Sodium 40 MG Oral Tablet Delayed Release (Protonix) 1 Tablet. (Patient not taking: Reported on 09/22/2023) No current facility-administered medications for this visit. Review of patient's allergies indicates: Allergen Reactions Tegretol [Carbamazepine] Rash Objective: BP 88/56 | Pulse 76 | Temp 35.9 C (96.6 F) | Resp 16 | Wt 58 kg (127 lb 12.8 oz) | SpO2 99% | BMI 17.82 kg/m | BSA 1.7 m Physical Exam: CONST: alert, pleasant, no acute distress note that his weight at 127 lb is pretty stable over the last 4 months. HEAD: normocephalic, atraumatic Eyes - PERRLA, EOM'I OROPHARYNX: clear, no swelling or erythema, moist CV: regular rate and rhythm, no murmur CHEST: clear to auscultation bilaterally, no rales or wheezing ABD: soft, non tender, non distended, no masses or hepatosplenomegaly. Somewhat hyperactive diffusebowel sounds EXT: no edema, no joint swelling or deformities, NEURO: AAOx3, no gross focal deficits, cerebellar signs normal, affect appropriate MENTAL STATUS: no evidence of thought disorder, no delusional thought, no evidence of paranoia, thought is non-tangential. Mood-down as anticipated. SKIN: no rash or significant lesions ASSESSMENT/PLAN: There are no diagnoses linked to this encounter. Malignant neoplasm of the stomach-status post chemotherapy followed by Yeison-en-Y surgery. Hopefullyhis clinical change in the last couple days will persist. Follow-up with Dr. Edmonds tomorrow. Adjustment disorder with anxiety depression-we talked about the diagnosis and treatment. Will initiate generic Lexapro 10 mg half tablet daily for 1 week and then 1 tablet daily. He also has lorazepam 0.5 mg to use up to every [address] Kuhn just renewed that today. See back again in 4-6 weeks. Right now he is hoping that he can gradually advance his diet. If he runs into Um difficulty, he may want to at least have consultation with a steel die press set up operator. I told him that he could get in touch with me and we could arrange that if things worsened. Um Thaddeus Solis MD documented in this encounter Nursing Notes * Suzie Nelson LPN - 09/22/2023 9:33 AM EST The patient has been properly identified by confirmation of name and date of . Chief Complaint Patient presents with Hospital Follow-Up NEW PATIENT documented in this encounter Plan of Treatment Upcoming Encounters Date Type Department Care Team (Late st Contact Info) Description 09/23/2023 8:20 AM EST [facility] [address] [place] [address] Praveen Edmonds MD [address] [place] [address] 10/05/2023 8:15 AM EST Office Visit Hematology/Oncology [employer] [address] [facility] [place] [address] Cipriano Kuhn MD [address] [facility] [place] [address] Scheduled Orders Name Type Priority Associated Diagnoses Orde r Schedule TSH WITH FREE T4 IF INDICATED Lab Routine Unintentional weight loss Expected: 09/22/2023 (Approximate), Expires: 09/21/2024 Scheduled Procedures Name Priority Associated Diagnoses Date/Ti [...] this encounter Medical Devices Implanted Type Area Senior Account Clerk Device Identifier Shelf Expiration Date Model / Serial / Lot Cement Hydroset Injectable 5cc - [id number] Implanted:Qty : 1 on 03/15/2018 by Ronak Khoury MD [place] [facility] [place]: Head JOHN 11/09/2019 [id number] / / [id number] Stent Wallf Esoph 23/17vug91vq - [id number] Implanted:Qty : 1 on 04/01/2023 by Karson Goddard MD [place] [facility] [place] N/A: Esophagus [employer] : ENDOSCOPY [id number] 09/09/2024 [id number] / / [id number] Power Port 8fr Sngl Lumen Plas - [id number] Implanted:Qty : 1 on 04/19/2023 by Thaddeus Brown, DO at OR [facility] Right: Chest CR BARD : PERIPHERAL VASCULAR [id number] 06/14/2024 [id number] / / [id number] documented as of this encounter Visit Diagnoses Diagnosis Adjustment disorder with mixed anxiety and depressed mood- Primary Unintentional weight loss Loss of weight 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 No Full Code 03/15/2018 8:20 AM 03/16/2018 2:36 PM This or enrique reflects the patients wishes and were consensually agreed upon. Question Answer Comments Discussion of Advance Directives occurred with: Patient Does the patient have a Living Will? No Does the patient have Health Care Power of Manufacturing Engineering Director? No Care Teams Merchandising Execution Associate Relationship Specialty Start Date End Date Thaddeus Solis MD [address] [place] [address] PCP - General Family Medicine 09/12/23 documented as of this encounter"
--- OUTSIDE RECORDS SUMMARY | 2023-10-04 12:14 | External Medical Summary ---
Author Name Unknown Address Unknown Organization [id number]:[facility]ORY [facility] [place] [address] [place] [address] Laboratory Report Ordering Provider Test Date Status PETER DICKENS 09/27/2023 01:21:00 Final Deficient: <20 ng/mL
Ins ufficient: 20-29 ng/mL
Recommended/Optimum:30-50 ng/mL

Vitamin D intoxication is rare. If suspicious of Vitamin D toxicity, evaluation of serum Calcium and PTH is recommended. Observation Date Value Abnormality Reference (Units ) Status 25-OH Vitamin D total 09/27/2023 01:21:00 24 >19 (ng/mL) Final Performing Location LAB[facility]ATORY [facility] - [address] [place] [address]
--- OUTSIDE RECORDS SUMMARY | 2023-10-04 12:14 | External Medical Summary | Summary of Care ---
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 Khang Kuhn MD Hem/Onc * Telephone Encounter - Khang Kuhn MD - 09/22/2023 7:46 AM ESTSigned Prescriptions: Disp Refills LORazepam 0.5 MG Oral Tablet (Ativan) 30 Tab*0 Sig: TAKE ONE TABLET BY MOUTH EVERY 6 HOURS NEEDED FOR ANXIETY OR SLEEP Authorizing Provider: KHANG KUHN * Telephone Encounter - Jose Smallwood [facility] - 09/22/2023 7:39 AM ESTPending Prescriptions: Disp Refills LORazepam 0.5 MG Oral Tablet (Ativan) 30 Tab*0 Sig: TAKE ONE TABLET BY MOUTH EVERY 6 HOURS NEEDED FOR ANXIETY OR SLEEP * Telephone Encounter - Jose Smallwood [facility] - 09/22/2023 7:37 AM EST I have reviewed the patients controlled substance dispensing history in the Prescription Drug Monitoring Program in compliance with the [facility] regulations before prescribing a controlled substance. PDMP checked on 09/22/2023. Pending Prescriptions: Disp Refills LORazepam 0.5 MG Oral Tablet (Ativan) [Ph*30 Tab*0 Sig: TAKE ONE TABLET BY MOUTH EVERY 6 HOURS NEEDED FOR ANXIETY OR SLEEP Last Visit: 03/10/2023 (in office), Visit date not found (telemedicine) Next Visit: Visit date not found Date medication was last filled: 08/23/23 Date medication is due for refill: 08/29/23 Pharmacy: [id number] Is this request for a controlled substance? Yes and Urine Drug Screen Not completed Toxicology results: No results found for this or any previous visit. Please approve if appropriate. Thank You, Jose Cobb [facility] Clinical Pharmacist [facility] Services ([facility]PS) (formerly Telepharmacy) 09/22/2023, 7:37 AM documented in this encounter Plan of Treatment Upcoming Encounters Date Type Department Care Team (Late st Contact Info) Description 09/22/2023 9:40 AM EST Office Visit [facility] [address] [place] [id number] Thaddeus Solis MD [address] [place] [address] 09/23/2023 8:20 AM EST Telemedicine General Surgery, [place] [address] [place], [place] [id number] Praveen Edmonds MD [address] [place] [address] 10/05/2023 8:15 AM EST Office Visit [facility]ology[facility] [place] [place] [address] [facility] [place] [address] Khang Kuhn MD [address] [place] [address] Scheduled Procedures Name Priority Associated Diagnoses Date/Ti [...] this encounter Medical Devices Implanted Type Area Aircraft Mechanic Structures Device Identifier Shelf Expiration Date Model / Serial / Lot Cement Hydroset Injectable 5cc - [id number] Implanted:Qty : 1 on 03/15/2018 by Ronak Khoury MD at OR [facility] [place] Left: Head JOHN 11/09/2019 [id number] / / [id number] Stent Wallf Esoph 23/[id number] - [id number] Implanted:Qty : 1 on 04/01/2023 by Karson Goddard MD at ENDOSCOPY [facility] [place] N/A: Esophagus [employer] : ENDOSCOPY [id number] 09/09/2024 [id number] / / [id number] Power Port 8fr Sngl Lumen Plas - [id number] Implanted:Qty : 1 on 04/19/2023 by Thaddeus Brown DO at OR [facility] Right: Chest CR BARD : PERIPHERAL VASCULAR [id number] 06/14/2024 [id number] / / [id number] documented as of this encounter Visit Diagnoses [...] the patient have Health Care Power of Compliance Associate? No Full Code 03/15/2018 8:20 AM 03/16/2018 2:36 PM This or enrique reflects the patients wishes and were consensually agreed upon. Question Answer Comments Discussion of Advance Directives occurred with: Patient Does the patient have a Living Will? No Does the patient have Health Care Power of Compliance Associate? No Care Teams Stockroom Supervisor Relationship Specialty Start Date End Date Thaddeus Solis MD [address] [facility] [place] [address] PCP - General Family Medicine 09/12/23 documented as of this encounter
--- OUTSIDE RECORDS SUMMARY | 2023-10-04 12:15 | External Medical Summary ---
Author Name Unknown Address Unknown Organization [id number]:LABORATORY [facility] [place] - [address] [facility] [address] Laboratory Report Ordering Provider Test Date Status REYNA FRYE 09/16/2023 09:19:17 Final Observation Date Value Abnormality Reference (Units ) Status Color of Urine by Auto 09/16/2023 09:19:17 Light Yellow Colorless, Light Yellow, Yellow, Dark Yellow Final Clarity, Urine 09/16/2023 09:19:17 Clear Clear Final Glucose [Mass/volume] in Urine by Automated test strip 09/16/2023 09:19:17 Negative Negative (mg/dL) Final Bilirubin.total [Presence] in Urine by Automated test strip 09/16/2023 09:19:17 Negative Negative Final Ketones [Mass/volume] in Urine by Automated test strip 09/16/2023 09:19:17 Negative Negative (mg/dL) Final Specific gravity, Urine 09/16/2023 09:19:17 1.015 1.003-1.030 Final Hemoglobin [Presence] in Urine by Automated test strip 09/16/2023 09:19:17 Negative Negative Final pH, Urine 09/16/2023 09:19:17 6.0 5.0-7.5 (Units) Final Protein [Mass/volume] in Urine by Automated test strip 09/16/2023 09:19:17 Trace Abnormal Negative (mg/dL) Final Urobilinogen [Mass/volume] in Urine by Automated test strip 09/16/2023 09:19:17 Normal Normal (mg/dL) Final Nitrite [Presence] in Urine by Automated test strip 09/16/2023 09:19:17 Negative Negative Final Leukocyte esterase [Presence] in Urine by Automated test strip 09/16/2023 09:19:17 Negative Negative Final RBC, Urine 09/16/2023 09:19:17 0-2 0-2 (/HPF) Final WBC, Urine 09/16/2023 09:19:17 0-2 0-2 (/HPF) Final Bacteria [#/area] in Urine sediment by Microscopy high power field 09/16/2023 09:19:17 0-25 0-25 (/HPF) Final Crystals.amorphous [#/area] in Urine sediment by Microscopy high power field 09/16/2023 09:19:17 Many Abnormal None (/HPF) Final Hyaline casts, Urine 09/16/2023 09:19:17 1-4 Abnormal None (/LPF) Final CULTURE, URINE - ISINGER 09/16/2023 09:19:17 Final Culture not indicated by uri nalysis results\X09\ Performing Location LABORATORY [facility] - [address] [place], [place] [address]
--- OUTSIDE RECORDS SUMMARY | 2023-10-04 12:15 | External Medical Summary ---
Author Name Unknown Address Unknown Organization K09:LABORATORY [place] [facility] - [address] [place] [address] Laboratory Report Ordering Provider Test Date Status JUSTINA QUIÑONEZ 09/12/2023 12:13:19 Final Observation Date Value Abnormality Reference (Units ) Status BUN 09/12/2023 12:13:19 5 Below low normal 6-20 (mg/dL) Final Creatinine 09/12/2023 12:13:19 0.5 Below low normal 0.6-1.2 (mg/dL) Final Glomerular filtration rate/1.73 sq M.predicted [Volume Rate/Area] in Serum, Plasma or Blood by Creatinine-based formula (CKD-EPI) 09/12/2023 12:13:19 >90 >=60 (mL/min) Final eGFR is calculated based on the CKD-EPI 2020 equation SODIUM 09/12/2023 12:13:19 138 135-146 (m mol/L) Final Potassium 09/12/2023 12:13:19 3.5 3.5-5.1 (m mol/L) Final Cl 09/12/2023 12:13:19 103 98-107 (mm ol/L) Final CO2 09/12/2023 12:13:19 23 22-32 (mmo l/L) Final Anion gap 09/12/2023 12:13:19 12 7-15 (mmol /L) Final Glucose 09/12/2023 12:13:19 98 70-120 (mg /dL) Final Albumin 09/12/2023 12:13:19 3.8 3.8-5.0 (g /dL) Final AST (Aspartate aminotransferase) 09/12/2023 12:13:19 23 10-50 (U/L) Final Alk Phos 09/12/2023 12:13:19 93 35-130 (U/ L) Final Bilirubin, Total 09/12/2023 12:13:19 0.2 <=1 .2 (mg/dL) Final Calcium 09/12/2023 12:13:19 8.9 8.4-10.2 ( mg/dL) Final Protein 09/12/2023 12:13:19 6.4 6.0-8.3 (g /dL) Final ALT (Alanine aminotransferase) 09/12/2023 12:13:19 24 10-50 (U/L) Final Performing Location LABORATORY [place] [address] [place] [address]
--- OUTSIDE RECORDS SUMMARY | 2023-10-04 12:15 | External Medical Summary ---
Author Name Unknown Address Unknown Organization K01:[facility] [place] [address] [facility] [address] Laboratory Report Ordering Provider Test Date Status REYNA FRYE 09/16/2023 08:58:00 Final Observation Date Value Abnormality Reference (Units ) Status SYNC LEUKOCYTES IN BLOOD BY AUTOMATED COUNT 09/16/2023 08:58:00 5.76 4.00-10.80 (K/uL) Final Segs 09/16/2023 08:58:00 66.0 40.0-75.0 (%) Final Lymphs % 09/16/2023 08:58:00 24.0 18.0-42.0 (%) Final Monos 09/16/2023 08:58:00 9.2 1.0-11.0 (%) Final Eosinophils 09/16/2023 08:58:00 0.2 0.0-6.0 (%) Final Basos 09/16/2023 08:58:00 0.3 0.0-2.0 (%) Final Immature Granulocyte, Percent 09/16/2023 08:58:00 0.3 0.0-2.0 (%) Final Absolute Segs 09/16/2023 08:58:00 3.80 1.80-7.70 (K/uL) Final Lymphs, absolute 09/16/2023 08:58:00 1.38 1.00-4.80 (K/ul) Final Monos, Abs 09/16/2023 08:58:00 0.53 0.00-1.10 (K/uL) Final Eos, Abs 09/16/2023 08:58:00 0.01 0.00-0.70 (K/uL) Final Basos, Abs 09/16/2023 08:58:00 0.02 0.00-0.20 (K/uL) Final Immature Granulocytes, Number 09/16/2023 08:58:00 0.02 0.00-0.20 (K/uL) Final Performing Location LAB[facility]ORY [facility] [place] [address] [facility] [address]
--- OUTSIDE RECORDS SUMMARY | 2023-10-04 12:15 | External Medical Summary ---
Author Name Unknown Address Unknown Organization K01:LABORATORY [facility] - [address] [facility] [address] Laboratory Report Ordering Provider Test Date Status JEAN CLAUDE ADAME 09/16/2023 08:58:00 Final Observation Date Value Abnormality Reference (Units ) Status Phosphate 09/16/2023 08:58:00 3.4 2.5-4.8 (m g/dL) Final Performing Location [facility] [address] [facility] [address]
--- OUTSIDE RECORDS SUMMARY | 2023-10-04 12:15 | External Medical Summary | Summary of Care ---
Author Name Unknown Organization [facility] Address [address] [place] [address] Phone [phone] Care Team Providers Care Pouch Making Machine Operator Name Role Phone Thaddeus Solis MD Primary Care Provider [phone] Reason for Visit * Reason Onset Date Comments FYI 09/16/2023 Encounter Details Date Type Department Care Team (Late st Contact Info) Description 09/16/2023 Telephone General Surgery, [place] [address] [place] [address] Praveen Edmonds MD [address] [place] [address] FYI Allergies Active Allergy Reactions Criticality Noted Date [...] 3 days. 10 Patch 12 09/15/2023 Active documented as of this encounter (statuses as of 09/16/2023) Active Problems Problem Noted Date Diagnosed Date Postprocedural intraabdominal abscess 09/03/2023 History of esophageal [...] Notes * Telephone Encounter - Elizabet Bell - No Ob/Or, GLADIS - 09/16/2023 7:14 AM EST Sanford is on his way to the er [place], sick nauseated,unable to eat,week Thank you elizabet documented in this encounter Plan of Treatment Upcoming Encounters Date Type Department Care Team (Late st Contact Info) Description 09/23/2023 8:20 AM EST Office Visit General Surgery, [place] [address] [place] [address] Praveen Edmonds MD [address] [place] [address] 10/05/2023 8:15 AM EST Office Visit Hematology/Oncology [place] [address] [facility] [place] [address] Cipriano Kuhn MD [address] [facility] [place] [address] Scheduled Procedures Name Priority Associated Diagnoses Date/Ti [...] this encounter Medical Devices Implanted Type Area Wreath And Garland Maker Hand Device Identifier Shelf Expiration Date Model / Serial / Lot Cement Hydroset Injectable 5cc - [id number] Implanted:Qty : 1 on 03/15/2018 by Ronak Khoury MD at OR [facility] Left: Head JOHN 11/09/2019 [id number] / / [id number] Stent Wallf Esoph 23/[id number] - [id number] Implanted:Qty : 1 on 04/01/2023 by Karson Goddard MD at ENDOSCOPY [facility] N/A: Esophagus [employer] : ENDOSCOPY [id number] 09/09/2024 [id number] / / [id number] Power Port 8fr Sngl Lumen Plas - [id number] Implanted:Qty : 1 on 04/19/2023 by Thaddeus Brown, DO at OR [facility] Right: Chest CR BARD : PERIPHERAL VASCULAR [id number] 06/14/2024 [id number] / / [id number] documented as of this encounter Advance Directives [...] the patient have Health Care Power of Aviation Safety Technician? No Full Code 03/15/2018 8:20 AM 03/16/2018 2:36 PM This or enrique reflects the patients wishes and were consensually agreed upon. Question Answer Comments Discussion of Advance Directives occurred with: Patient Does the patient have a Living Will? No Does the patient have Health Care Power of Aviation Safety Technician? No Care Teams Pouch Making Machine Operator Relationship Specialty Start Date End Date Thaddeus Solis MD [address] [facility] [place] [address] PCP - General Family Medicine 09/12/23 documented as of this encounter
--- OUTSIDE RECORDS SUMMARY | 2023-10-04 12:15 | External Medical Summary ---
Author Name Unknown Address Unknown Organization [id number]:LABORATORY [facility] [place] - [address] [facility] [address] Laboratory Report Ordering Provider Test Date Status REYNA FRYE 09/16/2023 08:58:00 Final Observation Date Value Abnormality Reference (Units ) Status BUN 09/16/2023 08:58:00 3 Below low normal 6-20 (mg/dL) Final Creatinine 09/16/2023 08:58:00 0.7 0.6-1.2 (mg/dL) Final Glomerular filtration rate/1.73 sq M.predicted [Volume Rate/Area] in Serum, Plasma or Blood by Creatinine-based formula (CKD-EPI) 09/16/2023 08:58:00 >90 >=60 (mL/min) Final eGFR is calculated based on the CKD-EPI 2020 equation SODIUM 09/16/2023 08:58:00 137 135-146 (m mol/L) Final Potassium 09/16/2023 08:58:00 3.6 3.5-5.1 (m mol/L) Final Cl 09/16/2023 08:58:00 99 98-107 (mm ol/L) Final CO2 09/16/2023 08:58:00 26 22-32 (mmo l/L) Final Anion gap 09/16/2023 08:58:00 12 7-15 (mmol /L) Final Glucose 09/16/2023 08:58:00 111 70-120 (mg /dL) Final Calcium 09/16/2023 08:58:00 10.1 8.4-10.2 ( mg/dL) Final Performing Location LABORATORY [facility] [place] - [address] [facility] [address]
--- OUTSIDE RECORDS SUMMARY | 2023-10-04 12:15 | External Medical Summary | Summary of Care ---
Author Name Unknown Organization [facility] Address [address] [place] [address] Phone [phone] Care Team Providers Care Medical Services Manager Name Role Phone Unavailable Primary Care Provider Unavailabl e Reason for Visit * Reason Onset Date Comments Nurse Telephone Follow Up 09/07/2023 Hospit al Discharge 09/05/23 Encounter Details Date Type Department Care Team (Late st Contact Info) Description [facility] [address] [place], [place] [phone] Praveen Edmonds MD [address] [place], [place] [phone] Nurse Telephone Follow Up (Hospital Discha... Allergies Active Allergy Reactions Criticality Noted Date Comments Carbamazepine Rash Medium 02/20/2018 documented as of this encounter (statuses as of 09/08/2023) Medications Medication Sig Dispensed Refills Start Date [...] Pain, Moderate. 42 mL 0 08/26/2023 Active Amoxicillin-Pot Clavulanate 875-125 MG Oral Tablet (Augmentin) Take 1 Tablet by mouth in the morning and 1 Tablet before bedtime. Do all this for 11 days. 22 Tablet 0 09/05/2023 09/16/2023 Active documented as of this encounter (statuses as of 09/08/2023) Active Problems Problem Noted Date Diagnosed Date [...] Dehydration 05/24/2023 Chemotherapy induced nausea and vomiting Encounter for antineoplastic chemotherapy 2022 Iron deficiency [...] as of this encounter (statuses as of 09/08/2023) Immunizations Name Administration Dates Next Due TDAP [...] Telephone Encounter - Livier Hong RN - 09/07/2023 4:50 PM EST Call to patient. Patient identified by name and date of . Feels he is doing well since discharge. Eating every 2-3 hours. Staying hydrated. No more dry heaves. Moving around but trying not to overexert too much. Continues with his antibiotics. Denies any questions, needs, or concerns. Follow up appointments reviewed. documented in this encounter Plan of Treatment Upcoming Encounters Date Type Department Care Team (Late st Contact Info) Description 09/12/2023 11:20 AM EST Office Visit [facility] [address] [facility] [place] [phone] Thaddeus Solis MD [address] [facility] [place] [id number] 09/23/2023 8:20 AM EST Office Visit General Surgery, [place] [address] [place] [address] Praveen Edmonds MD [address] [place] [address] 10/05/2023 8:15 AM EST Office Visit Hematology/Oncology [facility] [address] [facility] [place] [address] Cipriano Kuhn MD [address] [place] [address] Scheduled Procedures Name Priority Associated Diagnoses Date/Ti [...] this encounter Medical Devices Implanted Type Area Heavy Duty Mechanic Farm Equipment Device Identifier Shelf Expiration Date Model / Serial / Lot Cement Hydroset Injectable 5cc - [id number] Implanted:Qty : 1 on 03/15/2018 by Ronak Khoury MD at [place] [facility] Left: Head JOHN 11/09/2019 [id number] / / [id number] Stent Wallf Esoph 23/[id number] - [id number] Implanted:Qty : 1 on 04/01/2023 by Karson Goddadr MD at ENDOSCOPY [facility] N/A: Esophagus [employer] : ENDOSCOPY [id number] 09/09/2024 [id number] / / [id number] Power Port 8fr Sngl Lumen Plas - [id number] Implanted:Qty : 1 on 04/19/2023 by Thaddeus Brown DO at OR [facility] Right: Chest CR BARD : PERIPHERAL VASCULAR [id number] 06/14/2024 [id number] / / [id number] documented as of this encounter Advance Directives [...] the patient have Health Care Power of Polls Or Surveys Interviewer? No Full Code 03/15/2018 8:20 AM 03/16/2018 2:36 PM This or enrique reflects the patients wishes and were consensually agreed upon. Question Answer Comments Discussion of Advance Directives occurred with: Patient Does the patient have a Living Will? No Does the patient have Health Care Power of Polls Or Surveys Interviewer? No
--- OUTSIDE RECORDS SUMMARY | 2023-10-04 12:15 | External Medical Summary ---
Author Name Unknown Address Unknown Organization K01:[facility]ATORY [facility] - [address] [place] [address] Laboratory Report Ordering Provider Test Date Status JEAN CLAUDE ADAME 09/16/2023 08:58:00 Final Observation Date Value Abnormality Reference (Units ) Status Magnesium 09/16/2023 08:58:00 1.8 1.5-2.6 (m g/dL) Final Performing Location [facility] [address] [facility] [address]
--- OUTSIDE RECORDS SUMMARY | 2023-10-04 12:15 | External Medical Summary ---
Author Name Unknown Address Unknown Organization K01:[facility]ATORY [facility] - [address] [place] [address] Laboratory Report Ordering Provider Test Date Status REYNA FRYE 09/16/2023 08:58:00 Final Observation Date Value Abnormality Reference (Units ) Status Bacteria identified in Specimen by Culture 09/16/2023 08:58:00 No growth Final Test: Culture, Blood (Site 2)
Specimen Source: Blood, Venous
Specimen Type: Blood
Specimen Date: 09/16/2023 8:58 AM
Result Date: 09/21/2023 10:01 AM
Result Status: Final result
Resulting Lab: LABORATORY [facility]
[address]
[place] [address]

CULTURE

No growth

null Performing Location LABORATORY [facility] [place] - [address] [facility] [address]
--- OUTSIDE RECORDS SUMMARY | 2023-10-04 12:15 | External Medical Summary ---
Author Name Unknown Address Unknown Organization K09:LABORATORY [place] [address] Laboratory Report Ordering Provider Test Date Status JUSTINA QUIÑONEZ 09/12/2023 12:13:19 Final Observation Date Value Abnormality Reference (Units ) Status WBC, Total 09/12/2023 12:13:19 6.88 4.00-10.8 0 (K/uL) Final RBC 09/12/2023 12:13:19 3.49 4.50-5.25 (M/uL) Final Hemoglobin 09/12/2023 12:13:19 10.1 Below low normal 14 .0-16.8 (g/dL) Final HCT 09/12/2023 12:13:19 32.0 Below low normal 40. 0-48.4 (%) Final MCV 09/12/2023 12:13:19 91.7 82.0-99.5 (fL) Final MCH 09/12/2023 12:13:19 28.9 27.0-34.0 (pg) Final MCHC 09/12/2023 12:13:19 31.6 32.0-36.0 (g/dL) Final RDW 09/12/2023 12:13:19 15.9 11.5-15.5 (%) Final Platelets 09/12/2023 12:13:19 258 140-400 (K /uL) Final MPV 09/12/2023 12:13:19 10.3 6.6-11.1 ( fL) Final Performing Location LABORATORY [place] [address]
--- OUTSIDE RECORDS SUMMARY | 2023-10-04 12:15 | External Medical Summary ---
Author Name Unknown Address Unknown Organization K01:[facility] [place] [address] [facility] [address] Laboratory Report Ordering Provider Test Date Status REYNA FRYE 09/16/2023 08:58:00 Final Observation Date Value Abnormality Reference (Units ) Status WBC, Total 09/16/2023 08:58:00 5.76 4.00-10.80 (K/uL) Final RBC 09/16/2023 08:58:00 4.10 4.50-5.25 (M/uL) Final Hemoglobin 09/16/2023 08:58:00 12.0 Below low normal 14.0-16.8 (g/dL) Final HCT 09/16/2023 08:58:00 36.8 Below low normal 40.0-48.4 (%) Final MCV 09/16/2023 08:58:00 89.8 82.0-99.5 (fL) Final MCH 09/16/2023 08:58:00 29.3 27.0-34.0 (pg) Final MCHC 09/16/2023 08:58:00 32.6 32.0-36.0 (g/dL) Final RDW 09/16/2023 08:58:00 15.3 11.5-15.5 (%) Final Platelets 09/16/2023 08:58:00 283 140-400 (K/uL) Final MPV 09/16/2023 08:58:00 10.0 6.6-11.1 (fL) Final Nucleated erythrocytes/100 leukocytes [Ratio] in Blood by Automated count 09/16/2023 08:58:00 0 <=0 (/100 WBCs) Final Performing Location [facility] [place] [address] [facility] [address]
--- OUTSIDE RECORDS SUMMARY | 2023-10-04 12:15 | External Medical Summary ---
Author Name Unknown Address Unknown Organization K01:[facility] [place] [address] [place] [address] Laboratory Report Ordering Provider Test Date Status MELVAMIKEKARINA 09/16/2023 08:58:00 Final Observation Date Value Abnormality Reference (Units ) Status Troponin T 09/16/2023 08:58:00 10 <=22 (ng/ L) Final Performing Location [facility] - [address] [place] [address]
--- OUTSIDE RECORDS SUMMARY | 2023-10-04 12:15 | External Medical Summary | Summary of Care ---
Author Name Unknown Organization [facility] Address [address] [place] [address] Phone [phone] Care Team Providers Care Fitter Placer Name Role Phone Thaddeus Solis MD Primary Care Provider [phone] Reason for Visit * Reason Onset Date Comments Call Back 09/15/2023 Encounter Details Date Type Department Care Team (Late st Contact Info) Description 09/15/2023 Telephone General Surgery, [place] [address] [place] [address] Services, [facility] [address] [place] [address] Call Back Allergies Active Allergy Reactions Criticality Noted Date Comments Carbamazepine Rash Medium 02/20/2018 documented as of this encounter (statuses as of 09/15/2023) Medications Medication Sig Dispensed Refills Start Date [...] Pain, Moderate. 42 mL 0 09/09/2023 Active documented as of this encounter (statuses as of 09/15/2023) Active Problems Problem Noted Date Diagnosed Date [...] as of this encounter (statuses as of 09/15/2023) Immunizations Name Administration Dates Next Due TDAP [...] encounter Miscellaneous Notes * Telephone Encounter - Domenica Montenegro OSA - 09/15/2023 7:56 AM EST calling asking for a call back - pt is having issues with nausea,chills - she is asking for a call back Pt has been taking meds - zofran and compazzine. Pt has been unable to eat Please call [phone] documented in this encounter Plan of Treatment Upcoming Encounters Date Type Department Care Team (Late st Contact Info) Description 09/23/2023 8:20 AM EST Office Visit General Surgery, [place] [address] [place] [address] Praveen Edmonds MD [address] [place] [address] 10/05/2023 8:15 AM EST Office Visit Hematology/Oncology [facility] [place] [address] [place] [address] Cipriano Kuhn MD [address] [facility] [place] [address] Scheduled Procedures Name Priority Associated Diagnoses Date/Ti [...] this encounter Medical Devices Implanted Type Area Patient Relations Representative Device Identifier Shelf Expiration Date Model / Serial / Lot Cement Hydroset Injectable 5cc - [id number] Implanted:Qty : 1 on 03/15/2018 by Ronak Khoury MD at OR [facility] Left: Head JOHN 11/09/2019 [id number] / / [id number] Stent Wallf Esoph 23/[id number] - [id number] Implanted:Qty : 1 on 04/01/2023 by Karson Goddard MD at ENDOSCOPY [facility] N/A: Esophagus [employer] : ENDOSCOPY [id number] 09/09/2024 [id number] / / [id number] Power Port 8fr Sngl Lumen Plas - [id number] Implanted:Qty : 1 on 04/19/2023 by Thaddeus Brown, DO at OR [facility] Right: Chest CR BARD : PERIPHERAL VASCULAR [id number] 06/14/2024 [id number] / / [id number] documented as of this encounter Advance Directives [...] the patient have Health Care Power of Anesthesiology Physician? No Full Code 03/15/2018 8:20 AM 03/16/2018 2:36 PM This or enrique reflects the patients wishes and were consensually agreed upon. Question Answer Comments Discussion of Advance Directives occurred with: Patient Does the patient have a Living Will? No Does the patient have Health Care Power of Anesthesiology Physician? No Care Teams Fitter Placer Relationship Specialty Start Date End Date Thaddeus Solis MD [address] [place] [address] PCP - General Family Medicine 09/12/23 documented as of this encounter
--- OUTSIDE RECORDS SUMMARY | 2023-10-04 12:15 | External Medical Summary | Summary of Care ---
Author Name Unknown Organization [facility] Address [address] [place] [address] Phone [phone] Care Team Providers Care Milking Machine Technician Name Role Phone Thaddeus Solis MD Primary Care Provider [phone] Reason for Visit * Reason Comments IV Therapy hydration Encounter Details Date Type Department Care Team (Latest Contact Info) Description 09/12/2023 12:00 PM EST Hem/Onc Treatment Hematology/Oncology Treatment, [place] [address] [place] [address] Park, Chair 2 Hem Onc [address]en[address] [place] [address] Chemotherapy induced nausea and vomiting*; Malignant neoplasm of lower third of esophagus (HCC); Dehydration; 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) Allergies Active Allergy Reactions Criticality Noted Date Comments Carbamazepine Rash Medium 02/20/2018 documented as of this encounter (statuses as of 09/12/2023) Medications Medication Sig Dispensed Refills Start Date [...] as of this encounter (statuses as of 09/12/2023) Active Problems Problem Noted Date Diagnosed Date [...] as of this encounter (statuses as of 09/12/2023) Immunizations Name Administration Dates Next Due TDAP [...] Sign Reading Time Taken Comments Blood Pressure 94/62 09/12/2023 12:20 PM EST Pulse 88 09/12/2023 12:20 PM EST Temperature 36.8 C (98.2 F) 09/12/2023 12:[address] Respiratory Rate 16 09/12/2023 12:20 PM EST Oxygen Saturation 97% 09/12/2023 12:20 PM EST Inhaled Oxygen Concentration - - [...] Nursing Notes * Monae Pace, RN - 09/12/2023 2:30 PM EST Goals: Patient will remain free from injury. Possible barriers to meeting goals: ambulating with IV pole Stability of the patient: Moderately stable - low risk of patient condition declining or worsening Summary regarding today's goals: Met: pt remained free of harm today Patient tolerated treatment well without any acute issues or problems. Patient left facility in stable condition and denied any further needs. * Monae Pace RN - 09/12/2023 1:54 PM EST Chair 10. Port accessed and labs drawn via port. Labs WNL. Patient here for hydration today, no electrolyte replacement needed based on labs. Patient had just gotten back out of the hospital last week. Patient says he is feeling much better and able to eat a lot more. He is working on eating every 3-4 hours and eating smaller portions but able toeat regular diet overall now. Patient states while he was in the hospital, they had fixed somethingfrom his surgery about 5-6 weeks ago and since they had fixed the issues, he has no longer had dry heaves/nausea/etc. Pt is feeling good today and reports he is also trying to drink a lot of fluids at home and is starting to feel more like his normal self. Safety and Risk for Injury Patient will remain free from injury. Ensure appropriate safety devices are available. Provide and maintain safe environment. documented in this encounter Plan of Treatment Upcoming Encounters Date Type Department Care Team (Late st Contact Info) Description 09/23/2023 8:20 AM EST Office Visit General Surgery, [place] [address] [place] [address] Praveen Edmonds MD [address] [place] [address] 10/05/2023 8:15 AM EST Office Visit Hematology/Oncology [place] [facility] [place] [address] Cipriano Kuhn MD [address] [facility] [place] [address] Scheduled Procedures Name Priority Associated Diagnoses Date/Ti [...] this encounter Medical Devices Implanted Type Area Glass Bender Device Identifier Shelf Expiration Date Model / Serial / Lot Cement Hydroset Injectable 5cc - [id number] Implanted:Qty : 1 on 03/15/2018 by Ronak Khoury MD at OR [facility] Left: Head JOHN 11/09/2019 [id number] / / [id number] Stent Wallf Esoph [id number] - [id number] Implanted:Qty : 1 on 04/01/2023 by Karson Goddard MD at ENDOSCOPY [facility] N/A: Esophagus [employer] : ENDOSCOPY [id number] 09/09/2024 [id number] / / [id number] Power Port 8fr Sngl Lumen Plas - [id number] Implanted:Qty : 1 on 04/19/2023 by Thaddeus Brown DO at OR [facility] Right: Chest CR BARD : PERIPHERAL VASCULAR [id number] 06/14/2024 [id number] / / [id number] documented as of this encounter Procedures Procedure Name Priority Date/Time Associated Diagnosis Comments DIFFERENTIAL, AUTOMATED STAT 09/12/2023 12:13 PM EST Malignant neoplasm of lower third of esophagus (HCC) COMPREHENSIVE METABOLIC PANEL STAT 09/12/2023 12:13 PM EST Malignant neoplasm of lower third of esophagus (HCC) CBC STAT 09/12/2023 12:13 PM EST Malignant neoplasm of lower third of esophagus (HCC) CBC STAT 09/12/2023 12:13 PM EST Malignant neoplasm of lower third of esophagus (HCC) documented in this encounter Results * (ABNORMAL) DIFFERENTIAL, AUTOMATED (09/12/2023 12:13 PM EST) WBC 6.88 4.00 - 10.80 K/uL 09/12/2023 12:49 PM EST [facility] [place] 56-02 Neutrophils % 68.0 40.0 - 75.0 % 09/12/2023 12:49 PM EST [facility] [place] 56-02 Lymphocytes % 19.8 18.0 - 42.0 % 09/12/2023 12:49 PM EST [facility] 56-02 Monocytes % 11.3(H) 1.0 - 11.0 % 09/12/2023 12:49 PM EST [facility] [place] 56-02 Eosinophils % 0.6 0.0 - 6.0 % 09/12/2023 12:49 PM EST [facility] [place] 56-02 Basophils % 0.3 0.0 - 2.0 % 09/12/2023 12:49 PM EST [facility] [place] 56-02 Absolute Neutrophils 4.68 1.80 - 7.70 K/uL 09/12/2023 12:49 PM EST [facility] [place] 56-02 Absolute Lymphocytes 1.36 1.00 - 4.80 K/ul 09/12/2023 12:49 PM EST [facility] [place] 56-02 Absolute Monocytes 0.78 0.00 - 1.10 K/uL 09/12/2023 12:49 PM EST [facility] [place] 56-02 Absolute Eosinophils 0.04 0.00 - 0.70 K/uL 09/12/2023 12:49 PM EST [facility] [place] 56-02 Absolute Basophils 0.02 0.00 - 0.20 K/uL 09/12/2023 12:49 PM EST [facility] [place] 56-02 Blood Venous blood specimen / Unknown Central Line / Unknown 09/12/2023 12:13 PM EST 09/12/2023 12:47 PM EST Cipriano Kuhn MD LAB BLOOD ORDERABLES [place] [address] [place] [address] * (ABNORMAL) CBC (09/12/2023 12:13 PM EST) WBC 6.88 4.00 - 10.80 K/uL 09/12/2023 12:49 PM EST [place] [address] RBC 3.49 4.50 - 5.25 M/uL 09/12/2023 12:49 PM EST [place] [address] HGB 10.1(L) 14.0 - 16.8 g/dL 09/12/2023 12:49 PM [place] [address] HCT 32.0(L) 40.0 - 48.4 % 09/12/2023 12:49 PM EST [place] [address] MCV 91.7 82.0 - 99.5 fL 09/12/2023 12:49 PM EST [address] MCH 28.9 27.0 - 34.0 pg 09/12/2023 12:49 PM [place] [address] MCHC 31.6 32.0 - 36.0 g/dL 09/12/2023 12:49 PM [place] [address] RDW 15.9 11.5 - 15.5 % 09/12/2023 12:49 PM [facility] 56 PLT 258 140 - 400 K/uL 09/12/2023 12:49 PM [facility] 56 MPV 10.3 6.6 - 11.1 fL 09/12/2023 12:49 PM [facility] 5602 Blood Venous blood specimen / Unknown Central Line / Unknown 09/12/2023 12:13 PM EST 09/12/2023 12:47 PM EST Cipriano Kuhn MD LAB BLOOD ORDERABLES [address] [place] [address] * (ABNORMAL) COMPREHENSIVE METABOLIC PANEL (09/12/2023 12:13 PM EST) BUN 5(L) 6 - 20 mg/dL 09/12/2023 1:45 PM EST [address] Creatinine 0.5(L) 0.6 - 1.2 mg/dL 09/12/2023 1:45 PM EST [address] Estimated Glomerular Filtration Rate >90 >=60 mL/min 09/12/2023 1:45 PM [facility] 56 Comment:eGFR is calculated b ased on the CKD-EPI 2020 equation Sodium 138 135 - 146 mmol/L 09/12/2023 1:45 PM EST [facility] 56 Potassium 3.5 3.5 - 5.1 mmol/L 09/12/2023 1:45 PM EST [facility] 56 Chloride 103 98 - 107 mmol/L 09/12/2023 1:45 PM EST [address] CO2 23 22 - 32 mmol/L 09/12/2023 1:45 PM [facility] 56 Anion Gap 12 7 - 15 mmol/L 09/12/2023 1:45 PM EST [facility] 56 Glucose 98 70 - 120 mg/dL 09/12/2023 1:45 PM EST [facility] 56 Albumin 3.8 3.8 - 5.0 g/dL 09/12/2023 1:45 PM EST [facility] 56 AST 23 10 - 50 U/L 09/12/2023 1:45 PM [facility] 56 Alkaline Phosphatase 93 35 - 130 U/L 09/12/2023 1:45 PM [facility] 56 Bilirubin, Total 0.2 <=1.2 mg/dL 09/12/2023 1:45 PM [facility] 56 Calcium 8.9 8.4 - 10.2 mg/dL 09/12/2023 1:45 PM [facility] 56 Protein 6.4 6.0 - 8.3 g/dL 09/12/2023 1:45 PM [facility] 56-02 ALT 24 10 - 50 U/L 09/12/2023 1:45 PM EST [facility] 56-02 Blood Venous blood specimen / Unknown Central Line / Unknown 09/12/2023 12:13 PM EST 09/12/2023 12:47 PM EST Cipriano Kuhn MD LAB BLOOD ORDERABLES [facility] [address]- [address] [place], [place] [id number] documented in this encounter Visit Diagnoses Diagnosis Chemotherapy induced nausea and vomiting- Primary Nausea with vomiting Malignant neoplasm of lower third of esophagus (HCC) Malignant neoplasm of lower third of esophagus Dehydration 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 Given 09/12/2023 2:22 PM EST 500 Units sodium chloride 0.9 % flush central line 10 mL 10 mL, IV Push, PRN Other, IV Flush, Starting on Tue09/12/23 at 1226, Until Tue09/13/23 at 1225, For 24 hours, Do not flush if lock, PICC, or central line not in place; IV infusing or unable to flush. Given 09/12/2023 2:22 PM EST 10 mL Inactive Administered Medications - up to 3 most recent administrations Medication Order MAR Action Action Date Dose Rate Site NSS infusion FOR HYDRATION Intravenous, at 500 mL/hr Administer over 2 Hours, ONCE, 1 dose, On Tue09/12/23 at 1330 Start Infusion 09/12/2023 12:35 PM EST 1,000 mL 500 mL/hr documented [...] the patient have Health Care Power of Infantry Indirect Fire Crewmember? No Full Code 03/15/2018 8:20 AM 03/16/2018 2:36 PM This or enrique reflects the patients wishes and were consensually agreed upon. Question Answer Comments Discussion of Advance Directives occurred with: Patient Does the patient have a Living Will? No Does the patient have Health Care Power of Infantry Indirect Fire Crewmember? No Care Teams Milking Machine Technician Relationship Specialty Start Date End Date Thaddeus Solis MD [address] [place] [address] PCP - General Family Medicine 09/12/23 documented as of this encounter
--- OUTSIDE RECORDS SUMMARY | 2023-10-04 12:15 | External Medical Summary ---
Author Name Unknown Address Unknown Organization K01:[facility]AT[facility] [place] [address] [facility] [address] Laboratory Report Ordering Provider Test Date Status REYNA FRYE 09/16/2023 08:58:00 Final Less than 0.5 ng/mL: Low ris k for progression to sepsis. Review patients condition for localized infections.

0.5 to 2.0 ng/mL: Intermediate risk for progresion to sepsis. Review underlying conditions. Recommend repeat PCT after 6 hours has elapsed.

Greater than 2.0 ng/mL: high risk for progression to sepsis unless other causes are known. Observation Date Value Abnormality Reference (Units ) Status Procalcitonin [Mass/volume] in Serum or Plasma by Immunoassay 09/16/2023 08:58:00 <0.06 <0.10 (ng/mL) Final Performing Location [facility] [facility] [address] [facility] [address] [facility] [address]
--- OUTSIDE RECORDS SUMMARY | 2023-10-04 12:15 | External Medical Summary ---
Author Name Unknown Address Unknown Organization [id number]:LABORATORY [facility] [place] - [address] [facility] [address] Laboratory Report Ordering Provider Test Date Status REYNA FRYE 09/16/2023 08:58:00 Final Observation Date Value Abnormality Reference (Units ) Status Lactic Acid, Whole Blood 09/16/2023 08:58:00 2.1 Above high normal 0.4-2.0 (mmol/L) Final Performing Location LABORATORY [facility] [place] - [address] [facility] [address]
--- OUTSIDE RECORDS SUMMARY | 2023-10-04 12:15 | External Medical Summary ---
Author Name Unknown Address Unknown Organization K09:[facility] [place] [address] Laboratory Report Ordering Provider Test Date Status JUSTINA QUIÑONEZ 09/12/2023 12:13:19 Final Observation Date Value Abnormality Reference (Units ) Status SYNC LEUKOCYTES IN BLOOD BY AUTOMATED COUNT 09/12/2023 12:13:19 6.88 4.00-10.80 (K/uL) Final Segs 09/12/2023 12:13:19 68.0 40.0-75.0 (%) Final Lymphs % 09/12/2023 12:13:19 19.8 18.0-42.0 (%) Final Monos 09/12/2023 12:13:19 11.3 Above high normal 1.0-11.0 (%) Final Eosinophils 09/12/2023 12:13:19 0.6 0.0-6.0 (%) Final Basos 09/12/2023 12:13:19 0.3 0.0-2.0 (%) Final Absolute Segs 09/12/2023 12:13:19 4.68 1.80-7.70 (K/uL) Final Lymphs, absolute 09/12/2023 12:13:19 1.36 1.00-4.80 (K/ul) Final Monos, Abs 09/12/2023 12:13:19 0.78 0.00-1.10 (K/uL) Final Eos, Abs 09/12/2023 12:13:19 0.04 0.00-0.70 (K/uL) Final Basos, Abs 09/12/2023 12:13:19 0.02 0.00-0.20 (K/uL) Final Performing Location [facility] [place] [address] [place] [address]
--- OUTSIDE RECORDS SUMMARY | 2023-10-04 12:15 | External Medical Summary ---
Author Name Unknown Address Unknown Organization K01:LABORATORY [facility] [place] - [address] [facility] [address] Laboratory Report Ordering Provider Test Date Status REYNA FRYE 09/16/2023 09:19:17 Final SCREENING Observation Date Value Abnormality Reference (Units ) Status SARS Coronavirus 2 09/16/2023 09:19:17 Negative N egative Final 2018 Novel Coronavirus not d etected.

This express test was developed and its performance characteristics determined by [facility]. It has not been cleared or approved [...] was developed and performance characteristics determined by [facility]. The validation of alternate specimen types has not been cleared or approved by the U.S. Food and Drug Administration (FDA). It has been determined that such clearance is not necessary. Performing Location LABORATORY [facility] - [facility] [address] [facility] [address]
--- OUTSIDE RECORDS SUMMARY | 2023-10-04 12:15 | External Medical Summary ---
Author Name Unknown Address Unknown Organization K01:[facility] [place] [address] [place] [address] Laboratory Report Ordering Provider Test Date Status REYNA FRYE 09/16/2023 08:58:00 Final Observation Date Value Abnormality Reference (Units ) Status Albumin 09/16/2023 08:58:00 4.1 3.8-5.0 (g/dL) Final AST (Aspartate aminotransferase) 09/16/2023 08:58:00 23 10-50 (U/L) Final Alk Phos 09/16/2023 08:58:00 110 35-130 (U/L) Final ALT (Alanine aminotransferase) 09/16/2023 08:58:00 43 10-50 (U/L) Final Bilirubin, Total 09/16/2023 08:58:00 0.4 <=1.2 (mg/dL) Final Bilirubin, Direct 09/16/2023 08:58:00 <0.2 0.0-0.3 (mg/dL) Final Protein 09/16/2023 08:58:00 7.2 6.0-8.3 (g/dL) Final Performing Location [facility] [place] [address] [place] [address]
--- OUTSIDE RECORDS SUMMARY | 2023-10-04 12:15 | External Medical Summary ---
Author Name Unknown Address Unknown Organization K01:LAB[facility]ATORY [facility] - [address] [place] [address] Laboratory Report Ordering Provider Test Date Status REYNA FRYE 09/16/2023 09:07:00 Final Observation Date Value Abnormality Reference (Units ) Status Bacteria identified in Specimen by Culture 09/16/2023 09:07:00 No growth Final Test: Culture, Blood
Sp ecimen Source: Blood, Venous
Specimen Type: Blood
Specimen Date: 09/16/2023 9:07 AM
Result Date: 09/21/2023 10:01 AM
Result Status: Final result
Resulting Lab: [facility]ORY [facility]
[address]
[place] [address]

CULTURE

No growth

null Performing Location [facility]ORY [facility] - [address] [facility] [address]
--- OUTSIDE RECORDS SUMMARY | 2023-10-04 12:15 | External Medical Summary | Summary of Care ---
Author Name Unknown Organization [facility] Address [address] [place] [address] Phone [phone] Care Team Providers Care Bank Vault Attendant Name Role Phone Thaddeus Solis MD Primary Care Provider Encounter Details Date Type Department Care Team (Late st Contact Info) Description 09/15/2023 Telephone [facility] General Surgery [address] [place] [address] Leia Denny MD [address] [place] [address] Allergies Active Allergy Reactions Criticality Noted Date [...] 8:20 AM EST Office Visit General Surgery, [place] [address] [place] [address] Praveen Edmonds MD [address] [place] [address] 10/05/2023 8:15 AM EST Office Visit Hematology/Oncology [place] [place] [address] [place] [address] Cipriano Kuhn MD [address] [place] [address] Scheduled Procedures Name Priority Associated Diagnoses Date/Ti [...] this encounter Medical Devices Implanted Type Area Dry Food Products Mixer Device Identifier Shelf Expiration Date Model / Serial / Lot Cement Hydroset Injectable 5cc - [id number] Implanted:Qty : 1 on 03/15/2018 by Ronak Khoury MD at [place] [facility] Left: Head JOHN 11/09/2019 [id number] / / [id number] Stent Wallf Esoph 23/[id number] - [id number] Implanted:Qty : 1 on 04/01/2023 by Karson Goddard MD at ENDOSCOPY [facility] N/A: Esophagus [employer] : ENDOSCOPY [id number] 09/09/2024 [id number] / / [id number] Power Port 8fr Sngl Lumen Plas - [id number] Implanted:Qty : 1 on 04/19/2023 by Thaddeus Brown DO at OR [facility] Right: Chest CR BARD : PERIPHERAL VASCULAR [id number] 06/14/2024 [id number] / / [id number] documented as of this encounter Advance Directives [...] the patient have Health Care Power of Bomb Squad Commander? No Full Code 03/15/2018 8:20 AM 03/16/2018 2:36 PM This or enrique reflects the patients wishes and were consensually agreed upon. Question Answer Comments Discussion of Advance Directives occurred with: Patient Does the patient have a Living Will? No Does the patient have Health Care Power of Bomb Squad Commander? No Care Teams Bank Vault Attendant Relationship Specialty Start Date End Date Thaddeus Solis MD [address] [place] [address] PCP - General Family Medicine 09/12/23 documented as of this encounter
--- OUTSIDE RECORDS SUMMARY | 2023-10-04 12:15 | External Medical Summary | Summary of Care ---
Author Name Unknown Organization [facility] Address [address] [place] [address] Phone [phone] Care Team Providers Care Power Plant Electrician Name Role Phone Thaddeus Solis MD Primary Care Provider [phone] Reason for Visit * Reason Onset Date Comments Call Back 09/15/2023 Encounter Details Date Type Department Care Team (Late st Contact Info) Description 09/15/2023 Telephone General Surgery, [place] [address] [place] [address] Services, [facility] [address] [place] [address] Call Back Allergies Active Allergy Reactions Criticality [...] Telephone Encounter - Livier Hong RN - 09/15/2023 10:34 AM EST Message to resident on service. Patient was seen in [facility] on 09/12 and relayed he was feeling good. I have no advice without input from a provider at this point. Separate encounter to Dr Kuhn's office recommended ED eval if he is not tolerating anything which I would also advise. Will follow up with patient/ once able to review with provider. * Telephone Encounter - Domenica Montenegro OSA - 09/15/2023 7:56 AM EST calling asking for a call back - pt is having issues with nausea,chills - she is asking for a call back Pt has been taking meds - zofran and compazzine. Pt has been unable to eat Please call [phone] documented in this encounter Plan of Treatment Upcoming Encounters Date Type Department Care Team (Late st Contact Info) Description 09/23/2023 8:20 AM EST Office Visit General Surgery, [place] [address] [place] [address] Praveen Edmonds MD [address] [place] [address] 10/05/2023 8:15 AM EST Office Visit Hematology/Oncology [facility] [address] [facility] [place] [address] Cipriano Kuhn MD 200 [place] [address] Scheduled Procedures Name Priority Associated Diagnoses Date/Ti [...] this encounter Medical Devices Implanted Type Area Sustainability Consultant Device Identifier Shelf Expiration Date Model / Serial / Lot Cement Hydroset Injectable 5cc - [id number] Implanted:Qty : 1 on 03/15/2018 by Ronak Khoury MD at [place] [facility] Left: Head JOHN 11/09/2019 [id number] / / [id number] Stent Wallf Esoph 23/50nwa46hg - [id number] Implanted:Qty : 1 on 04/01/2023 by Karson Goddard MD at ENDOSCOPY [facility] N/A: Esophagus [employer] : ENDOSCOPY [id number] 09/09/2024 [id number] / / [id number] Power Port 8fr Sngl Lumen Plas - [id number] Implanted:Qty : 1 on 04/19/2023 by Thaddeus Brown DO at OR [facility] Right: Chest CR BARD : PERIPHERAL VASCULAR [id number] 06/14/2024 [id number] / / [id number] documented as of this encounter Advance Directives [...] the patient have Health Care Power of Country Director? No Full Code 03/15/2018 8:20 AM 03/16/2018 2:36 PM This or enrique reflects the patients wishes and were consensually agreed upon. Question Answer Comments Discussion of Advance Directives occurred with: Patient Does the patient have a Living Will? No Does the patient have Health Care Power of Country Director? No Care Teams Power Plant Electrician Relationship Specialty Start Date End Date Thaddeus Solis MD [address] [place] [address] PCP - General Family Medicine 09/12/23 documented as of this encounter
--- OUTSIDE RECORDS SUMMARY | 2023-10-04 12:16 | External Medical Summary ---
Author Name Unknown Address Unknown Organization K01:LABORATORY [facility] [place] - [address] [facility] [address] Laboratory Report Ordering Provider Test Date Status PAULO IQBAL 09/05/2023 07:28:00 Final Observation Date Value Abnormality Reference (Units ) Status BUN 09/05/2023 07:28:00 3 Below low normal 6-20 (mg/dL) Final Creatinine 09/05/2023 07:28:00 0.7 0.6-1.2 (mg/dL) Final Glomerular filtration rate/1.73 sq M.predicted [Volume Rate/Area] in Serum, Plasma or Blood by Creatinine-based formula (CKD-EPI) 09/05/2023 07:28:00 >90 >=60 (mL/min) Final eGFR is calculated based on the CKD-EPI 2020 equation SODIUM 09/05/2023 07:28:00 140 135-146 (m mol/L) Final Potassium 09/05/2023 07:28:00 3.4 Below low normal 3.5 -5.1 (mmol/L) Final Cl 09/05/2023 07:28:00 105 98-107 (mm ol/L) Final CO2 09/05/2023 07:28:00 23 22-32 (mmo l/L) Final Anion gap 09/05/2023 07:28:00 12 7-15 (mmol /L) Final Glucose 09/05/2023 07:28:00 130 Above high normal 70 -120 (mg/dL) Final Calcium 09/05/2023 07:28:00 8.6 8.4-10.2 ( mg/dL) Final Performing Location LABORATORY [facility] [place] - [address] [place] [address]
--- OUTSIDE RECORDS SUMMARY | 2023-10-04 12:16 | External Medical Summary | Summary of Care ---
Author Name Unknown Organization [facility] Address [address] [place] [address] Phone [phone] Care Team Providers Care Gas Meter Reader Name Role Phone Unavailable Primary Care Provider Unavailabl e Reason for Visit * Reason Onset Date Comments Appointment 09/06/2023 NO SHOW 09/06/23 Encounter Details Date Type Department Care Team (Late st Contact Info) Description 09/06/2023 Telephone Hematology/Oncology [facility] [address] [place] [address] Cipriano Kuhn MD [address] [place] [address] Appointment (NO SHOW 09/06/23) Allergies Active Allergy Reactions Criticality Noted Date Comments Carbamazepine Rash Medium 02/20/2018 documented as of this encounter (statuses as of 09/06/2023) Medications Medication Sig Dispensed Refills Start Date [...] as of this encounter (statuses as of 09/06/2023) Active Problems Problem Noted Date Diagnosed Date [...] as of this encounter (statuses as of 09/06/2023) Immunizations Name Administration Dates Next Due TDAP [...] encounter Miscellaneous Notes * Telephone Encounter - Christen Segal OSA - 09/06/2023 2:23 PM EST Called and spoke to patients [place] patient just discharged from hospital offering an appt with on 09/09/23. Patient refused and states that he cannot make the trip in and is very depressed and not getting any better. Latonia patients states that she is also depressed and is not sure how else to help the patient. /Nursing - please reach out to Latonia and patient and advise. Thank you. * Telephone Encounter - Marleni Thomas CMA - 09/06/2023 2:17 PM EST Patient is a NO SHOW 09/06/23 Please call patient to reschedule missed appt documented in this encounter Plan of Treatment Upcoming Encounters Date Type Department Care Team (Late st Contact Info) Description 09/12/2023 11:20 AM EST Office Visit [place] [address] [place] [address] Thaddeus Solis MD [address] [place] [address] 09/23/2023 8:20 AM EST Office Visit General Surgery, [place] [address] [place] [address] Praveen Edmonds MD [address] [place] [address] Scheduled Procedures Name Priority Associated Diagnoses Date/Ti [...] this encounter Medical Devices Implanted Type Area Analyst Geochemical Prospecting Device Identifier Shelf Expiration Date Model / Serial / Lot Cement Hydroset Injectable 5cc - [id number] Implanted:Qty : 1 on 03/15/2018 by Ronak Khoury MD at [facility] Left: Head JOHN 11/09/2019 [id number] / / [id number] Stent Wallf Esoph 23/14rmz69xg - [id number] Implanted:Qty : 1 on 04/01/2023 [place]arson Goddard [place] [facility] [place] Esophagus [employer] : ENDOSCOPY [id number] 09/09/2024 [id number] / / [id number] Power Port 8fr Sngl Lumen Plas - [id number] Implanted:Qty : 1 on 04/19/2023 by Thaddeus Brown, at OR [facility] Right: Chest CR BARD : PERIPHERAL VASCULAR [id number] 06/14/2024 [id number] / / [id number] documented as of this encounter Advance Directives [...] the patient have Health Care Power of Expert Medical Writer? No Full Code 03/15/2018 8:20 AM 03/16/2018 2:36 PM This or enrique reflects the patients wishes and were consensually agreed upon. Question Answer Comments Discussion of Advance Directives occurred with: Patient Does the patient have a Living Will? No Does the patient have Health Care Power of Expert Medical Writer? No
--- OUTSIDE RECORDS SUMMARY | 2023-10-04 12:16 | External Medical Summary ---
Author Name Unknown Address Unknown Organization [id number]:LABORATORY [facility] [place] - [facility] [place] [address] [facility] [address] Laboratory Report Ordering Provider Test Date Status DIETER MCINTOSH 09/05/2023 07:28:00 Final Observation Date Value Abnormality Reference (Units ) Status Retic, % (auto) 09/05/2023 07:28:00 1.00 0.80-1.90 (%) Final Reticulocytes, Absolute 09/05/2023 07:28:00 33.1 31.3-100.1 (K/uL) Final Reticulocyte fraction, immature 09/05/2023 07:28:00 2.8 2.5-20.6 (%) Final Reticulocyte HGB 09/05/2023 07:28:00 33.5 29.7-37.4 (pg) Final Performing Location LABORATORY [facility] [place] - [address] [facility] [address]
--- OUTSIDE RECORDS SUMMARY | 2023-10-04 12:16 | External Medical Summary | Summary of Care ---
Author Name Unknown Organization [facility] Address [address] [place] [address] Phone [phone] Care Team Providers Care Office Analyst Name Role Phone Unavailable Primary Care Provider Unavailabl e Reason for Visit * Reason Onset Date Comments Appointment 09/06/2023 NO SHOW 09/06/23 Encounter Details Date Type Department Care Team (Late st Contact Info) Description 09/06/2023 Telephone Hematology/Oncology [facility] [address] [place] [address] Cipriano Kuhn MD [address] [place] [address] Appointment (NO SHOW 09/06/23) Allergies Active Allergy [...] Description 09/12/2023 11:20 AM EST Office Visit [place] [address] [place] [address] Thaddeus Solis MD [address] [place] [address] 09/23/2023 8:20 AM EST Office Visit General Surgery, [place] [address] [place] [address] Praveen Edmonds MD [address] [place] [address] Scheduled Procedures Name Priority Associated Diagnoses Date/Ti [...] this encounter Medical Devices Implanted Type Area Piece Goods Packer Device Identifier Shelf Expiration Date Model / Serial / Lot Cement Hydroset Injectable 5cc - [id number] Implanted:Qty : 1 on 03/15/2018 by Ronak Khoury MD at [facility] Left: Head JOHN 11/09/2019 [id number] / / [id number] Stent Wallf Esoph 23/20xpl70bo - [id number] Implanted:Qty : 1 on 04/01/2023 [place]arson [place]ard [place] [facility] [place] Esophagus [employer] : ENDOSCOPY [id number] 09/09/2024 [id number] / / [id number] Power Port 8fr Sngl Lumen Plas - [id number] Implanted:Qty : 1 on 04/19/2023 by Thaddeus Brown, at OR [facility] Right: Chest CR BARD : PERIPHERAL VASCULAR [id number] 06/14/2024 [id number] / / [id number] documented as of this encounter Advance Directives [...] the patient have Health Care Power of Assistant Case Manager? No Full Code 03/15/2018 8:20 AM 03/16/2018 2:36 PM This or enrique reflects the patients wishes and were consensually agreed upon. Question Answer Comments Discussion of Advance Directives occurred with: Patient Does the patient have a Living Will? No Does the patient have Health Care Power of Assistant Case Manager? No
--- OUTSIDE RECORDS SUMMARY | 2023-10-04 12:16 | External Medical Summary | Summary of Care ---
Author Name Unknown Organization [facility] Address [address] [place] [address] Phone [phone] Care Team Providers Care Drapery Rod Assembler Name Role Phone Unavailable Primary Care Provider Unavailabl e Reason for Visit * Reason Onset Date Comments Appointment 09/06/2023 NO SHOW 09/06/23 Encounter Details Date Type Department Care Team (Late st Contact Info) Description 09/06/2023 Telephone Hematology/Oncology [facility] [address] [facility] [place] [address] Cipriano Kuhn MD [address] [place] [address] Appointment (NO SHOW 09/06/23) Allergies Active Allergy [...] encounter Miscellaneous Notes * Telephone Encounter - Marleni Thomas CMA - 09/06/2023 2:17 PM EST Patient is a NO SHOW 09/06/23 Please call patient to reschedule missed appt documented in this encounter Plan of Treatment Upcoming Encounters Date Type Department Care Team (Late st Contact Info) Description 09/12/2023 11:20 AM EST Office Visit [facility] [address] [place] [address] Thaddeus Solis MD [address] [place] [address] 09/23/2023 8:20 AM EST Office Visit General Surgery, [place] [address] [place] [address] Praveen Edmonds MD [address] [place] [address] Scheduled Procedures Name Priority Associated Diagnoses Date/Ti [...] this encounter Medical Devices Implanted Type Area Panel Gluer Device Identifier Shelf Expiration Date Model / Serial / Lot Cement Hydroset Injectable 5cc - [id number] Implanted:Qty : 1 on 03/15/2018 by Ronak Khoury MD at [place] [facility] [place] Left: Head JOHN 11/09/2019 [id number] / / [id number] Stent Wallf Esoph 23/63boh82as - [id number] Implanted:Qty : 1 on 04/01/2023 by Karson Goddard MD at [place]OSCOPY [facility] [place] N/A: Esophagus [employer] : ENDOSCOPY [id number] 09/09/2024 [id number] / / [id number] Power Port 8fr Sngl Lumen Plas - [id number] Implanted:Qty : 1 on 04/19/2023 by Thaddeus Brown DO at OR [facility] Right: Chest CR BARD : PERIPHERAL VASCULAR [id number] 06/14/2024 [id number] / / [id number] documented as of this encounter Advance Directives [...] the patient have Health Care Power of Glass Silverer? No Full Code 03/15/2018 8:20 AM 03/16/2018 2:36 PM This or enrique reflects the patients wishes and were consensually agreed upon. Question Answer Comments Discussion of Advance Directives occurred with: Patient Does the patient have a Living Will? No Does the patient have Health Care Power of Glass Silverer? No
--- OUTSIDE RECORDS SUMMARY | 2023-10-04 12:16 | External Medical Summary | Summary of Care ---
Author Name Unknown Organization [facility] Address [address] [place] [address] Phone [phone] Care Team Providers Care Burr Picker Name Role Phone Unavailable Primary Care Provider Unavailabl e Reason for Visit * Reason Onset Date Comments Appointment 09/06/2023 NO SHOW 09/06/23 Encounter Details Date Type Department Care Team (Late st Contact Info) Description 09/06/2023 Telephone Hematology/Oncology [facility] [address] [facility] [place] [address] Cipriano Kuhn MD [address] [place] [address] Appointment (NO SHOW 09/06/23) Allergies Active Allergy [...] encounter Miscellaneous Notes * Telephone Encounter - Ely Venegas RN - 09/06/2023 4:03 PM EST Reviewed with Dr Kuhn. Patient can follow with PCP for depression, ok to reschedule appt with him for in a few weeks. Attempted to call Latonia. Left message that Dr Kuhn is ok with scheduling appt for in a few weeks so that patient feels better, asked that she call to schedule appt. Scheduling: - when Latonia calls back, patient will also need port flush appt after appt with Dr Kuhn. Thanks! * Telephone Encounter - Christen Segal OSA [...] Description 09/12/2023 11:20 AM EST Office Visit [facility] [address] [place] [address] Thaddeus Solis MD [address] [place], [place] [address] 09/23/2023 8:20 AM EST [facility] [address] [place] [address] Praveen Edmonds MD [address] [place] [address] Scheduled Procedures Name Priority Associated Diagnoses Date/Ti [...] this encounter Medical Devices Implanted Type Area Research Chef Device Identifier Shelf Expiration Date Model / Serial / Lot Cement Hydroset Injectable 5cc - [id number] Implanted:Qty : 1 on 03/15/2018 [place] [facility] [place] Head JOHN 11/09/2019 [id number] / / [id number] Stent Wallf Esoph 23/44gxl33ud - [id number] Implanted:Qty : 1 on 04/01/2023 [place] Karson God[place]ard [place] [facility] [place]: Esophagus [employer] : ENDOSCOPY [id number] 09/09/2024 [id number] / / [id number] Power Port 8fr Sngl Lumen Plas - [id number] Implanted:Qty : 1 on 04/19/2023 by Thaddeus Brown DO at OR [facility] Right: Chest CR BARD : PERIPHERAL VASCULAR [id number] 06/14/2024 [id number] / / [id number] documented as of this encounter Advance Directives [...] the patient have Health Care Power of Belt Sander? No Full Code 03/15/2018 8:20 AM 03/16/2018 2:36 PM This or enrique reflects the patients wishes and were consensually agreed upon. Question Answer Comments Discussion of Advance Directives occurred with: Patient Does the patient have a Living Will? No Does the patient have Health Care Power of Belt Sander? No
--- OUTSIDE RECORDS SUMMARY | 2023-10-04 12:16 | External Medical Summary ---
Author Name Unknown Address Unknown Organization K01:[place] [place] [address] [facility] [address] Laboratory Report Ordering Provider Test Date Status DIETER MCINTOSH 09/05/2023 07:28:00 Final Observation Date Value Abnormality Reference (Units ) Status Vitamin B12 09/05/2023 07:28:00 226 961-5213 (pg/mL) Final Performing Location [facility] [address] [facility] [address]
--- OUTSIDE RECORDS SUMMARY | 2023-10-04 12:16 | External Medical Summary ---
Author Name Unknown Address Unknown Organization K01:[place] [facility] [place] [facility] [address] [facility] [address] [facility] [address] Laboratory Report Ordering Provider Test Date Status PAULO IQBAL 09/05/2023 07:28:00 Final Observation Date Value Abnormality Reference (Units ) Status WBC, Total 09/05/2023 07:28:00 3.83 Below low normal 4.00-10.80 (K/uL) Final RBC 09/05/2023 07:28:00 3.26 4.50-5.25 (M/uL) Final Hemoglobin 09/05/2023 07:28:00 9.4 Below low normal 14.0-16.8 (g/dL) Final HCT 09/05/2023 07:28:00 29.9 Below low normal 40.0-48.4 (%) Final MCV 09/05/2023 07:28:00 91.7 82.0-99.5 (fL) Final MCH 09/05/2023 07:28:00 28.8 27.0-34.0 (pg) Final MCHC 09/05/2023 07:28:00 31.4 32.0-36.0 (g/dL) Final RDW 09/05/2023 07:28:00 15.3 11.5-15.5 (%) Final Platelets 09/05/2023 07:28:00 330 140-400 (K/uL) Final MPV 09/05/2023 07:28:00 9.4 6.6-11.1 (fL) Final Nucleated erythrocytes/100 leukocytes [Ratio] in Blood by Automated count 09/05/2023 07:28:00 0 <=0 (/100 WBCs) Final Performing Location [facility] [place] [address] [place] [address]
--- OUTSIDE RECORDS SUMMARY | 2023-10-04 12:16 | External Medical Summary ---
Author Name Unknown Address Unknown Organization K01:[place] [facility] [place] [address] [place] [address] Laboratory Report Ordering Provider Test Date Status DIETER MCINTOSH 09/05/2023 07:28:00 Final Observation Date Value Abnormality Reference (Units ) Status Iron 09/05/2023 07:28:00 50 45-176 (ug/dL) Final Iron-binding capacity 09/05/2023 07:28:00 190 Below low normal 250-425 (ug/dL) Final Transferrin Sat % 09/05/2023 07:28:00 26 15-55 (%) Final Performing Location LABORATORY [facility] - [address] [place] [address]
--- OUTSIDE RECORDS SUMMARY | 2023-10-04 12:16 | External Medical Summary ---
Author Name Unknown Address Unknown Organization K01:[place]ORY [facility] [place] [address] [place] [address] Laboratory Report Ordering Provider Test Date Status MCINTOSHDIETER 09/05/2023 07:28:00 Final Observation Date Value Abnormality Reference (Units ) Status Ferritin 09/05/2023 07:28:00 351 30-400 (ng /mL) Final Performing Location [facility] [address] [facility] [address]
--- OUTSIDE RECORDS SUMMARY | 2023-10-04 12:16 | External Medical Summary ---
Author Name Unknown Address Unknown Organization K01:LABORATORY [facility] [place] - [facility] [address] [facility] [address] [place] [address] Laboratory Report Ordering Provider Test Date Status PAULO IQBAL 09/04/2023 08:49:00 Final Observation Date Value Abnormality Reference (Units ) Status WBC, Total 09/04/2023 08:49:00 4.06 4.00-10.80 (K/uL) Final RBC 09/04/2023 08:49:00 3.43 4.50-5.25 (M/uL) Final Hemoglobin 09/04/2023 08:49:00 9.9 Below low normal 14.0-16.8 (g/dL) Final HCT 09/04/2023 08:49:00 31.1 Below low normal 40.0-48.4 (%) Final MCV 09/04/2023 08:49:00 90.7 82.0-99.5 (fL) Final MCH 09/04/2023 08:49:00 28.9 27.0-34.0 (pg) Final MCHC 09/04/2023 08:49:00 31.8 32.0-36.0 (g/dL) Final RDW 09/04/2023 08:49:00 15.0 11.5-15.5 (%) Final Platelets 09/04/2023 08:49:00 350 140-400 (K/uL) Final MPV 09/04/2023 08:49:00 9.1 6.6-11.1 (fL) Final Nucleated erythrocytes/100 leukocytes [Ratio] in Blood by Automated count 09/04/2023 08:49:00 0 <=0 (/100 WBCs) Final Performing Location [facility] [place] - [address] [place] [address]
--- OUTSIDE RECORDS SUMMARY | 2023-10-04 12:16 | External Medical Summary | Summary of Care ---
Author Name Unknown Organization [facility] Address [address] [place] [address] Phone [phone] Care Team Providers Care Assistant Professor Of Religion Name Role Phone Unavailable Primary Care Provider Unavailabl e Reason for Visit * Reason Onset Date Comments Appointment 09/06/2023 NO SHOW 09/06/23 Encounter Details Date Type Department Care Team (Late st Contact Info) Description 09/06/2023 Telephone Hematology/Oncology [facility] [address] [place] [address] Cipriano Kuhn MD [address] [place] [address] Appointment (NO SHOW 09/06/23) Allergies Active Allergy [...] Description 09/12/2023 11:20 AM EST Office Visit [place] [address] [place] [address] Thaddeus Solis MD [address] [place] [address] 09/23/2023 8:20 AM EST Office Visit General Surgery, [place] [address] [place] [address] Praveen Edmonds MD [address] [place] [address] Scheduled Procedures Name Priority Associated Diagnoses Date/Ti [...] this encounter Medical Devices Implanted Type Area Roll Mill Operator Device Identifier Shelf Expiration Date Model / Serial / Lot Cement Hydroset Injectable 5cc - [id number] Implanted:Qty : 1 on 03/15/2018 by Ronak Khoury MD at [facility] Left: Head JOHN 11/09/2019 [id number] / / [id number] Stent Wallf Esoph 23/67yiq16fa - [id number] Implanted:Qty : 1 on 04/01/2023 by Karson Goddard [place] [facility] [place] Esophagus [employer] : ENDOSCOPY [id number] 09/09/2024 [id number] / / [id number] Power Port 8fr Sngl Lumen Plas - [id number] Implanted:Qty : 1 on 04/19/2023 by Thaddeus Brown, at OR [facility] Right: Chest CR BARD : PERIPHERAL VASCULAR [id number] 06/14/2024 [id number] / / [id number] documented as of this encounter Advance Directives [...] the patient have Health Care Power of Chief Quality Officer? No Full Code 03/15/2018 8:20 AM 03/16/2018 2:36 PM This or enrique reflects the patients wishes and were consensually agreed upon. Question Answer Comments Discussion of Advance Directives occurred with: Patient Does the patient have a Living Will? No Does the patient have Health Care Power of Chief Quality Officer? No
--- OUTSIDE RECORDS SUMMARY | 2023-10-04 12:16 | External Medical Summary | Summary of Care ---
Author Name Unknown Organization [facility] Address [address] [place] [address] Phone [phone] Care Team Providers Care Credit Assessment Analyst Name Role Phone Unavailable Primary Care Provider Unavailabl e Reason for Visit * Auth/Cert Specialty Diagnoses / Procedures Referred By Chary angeles Referred To Contact Diagnoses Abscess abscess Referral ID Status Reason Start Date Expiration Date Visits Re quested Visits Authorized [id number] Encounter Details Date Type Department Care Team (Latest Contact Info) Description 09/02/2023 3:32 PM EST - 09/05/2023 2:42 PM EST Hospital Encounter [id number] [address], [place] [id number] Aurora Glass MD [address] [facility] Hospitalist Services [place] [id number] Praveen Edmonds MD [address] [place] [address] Discharge Disposition: Home - Self Care Allergies [...] 06/29/2023 Active LORazepam 0.5 MG Oral Tablet (Ativan)Indicati [...] for 11 days. 22 Tablet 0 09/05/2023 4 Active Enoxaparin Sodium 40 MG/0.4ML Injection Solution Prefilled Syringe (Lovenox) Inject 40 mg under the skin in the morning. 11.2 mL 0 08/08/2023 4 Discontinued oxyCODONE HCl 5 MG Oral Tablet (Oxy IR) Take 1 Tablet by mouth every 4 hours as needed for Pain, Severe. 12 Tablet 0 08/08/2023 4 Discontinued documented as of this encounter (statuses [...] Sign Reading Time Taken Comments Blood Pressure 121/73 09/05/2023 12:00 PM EST Pulse 86 09/05/2023 12:00 PM EST Temperature 36.7 C (98 F) 09/05/2023 12:00 PM EST Respiratory Rate 18 09/05/2023 12:00 PM EST Oxygen Saturation 99% 09/05/2023 12:00 PM EST Inhaled Oxygen Concentration - - Weight 57.2 kg (126 lb 3.2 oz) 09/02/2023 3:38 P M EST Height - - Body Mass Index 17.6 08/02/2023 6:46 PM EST documented in this [...] of this encounter Discharge Instructions * Discharge Instr - AVS* Chinmay LeeCHAVO - 09/05/2023 6:43 AM EST Discharge Date: 09/05/2023 Check your Patient Education Brochure for further information. You may call Dr. Edmonds of the department of Surgical Oncology at [phone] during business hours for any questions or test results. For after- hours emergencies, call [phone] and have theprovider human resources compensation analyst paged. The information below provides you with [...] your inpatient care: You were admitted to [facility] on 09/02/23 for intra-abdominal abscess. You were started on antibiotics. You tolerated a diet before discharge. Your primary diagnosis at discharge was intra-abdominal abscess, Siewert III gastric cancer PleasePlease follow these instructions carefully: Activity: As tolerated. No lifting greater than 10 pounds for 4 weeks. Getting up and walking after surgery [...] full activity and vigorous exercise for about 4 weeks after surgery. You may climb stairs. No driving until seen for follow-up appointment or while taking prescription pain medication. Diet: Regular diet. Incisions: Wash incisions with soap and water [...] Appointment: Follow up with Dr Edmonds on 09/23/23 Follow up with your primary care provider in 1 week. Call the surgeon with any of the following symptoms: Fever higher than 101 degrees Fahrenheit. Severe pain not relieved by pain medication. Inability to void. Excessive bleeding, swelling, redness, or drainage from any of the incisions. Date you may return to work or school: Based on further instruction reviewed by surgeon after follow up visit. Inpatient test results pending: None Operations & Procedures: none Complications: none Advance Directive Documented: Advance Directive Does the Patient have an Advance Directive? Not Addressed documented in this encounter Progress Notes * Leia Denny MD - 09/05/2023 5:41 AM EST PROGRESS NOTE - Surgical Oncology [facility] [address] Name: Edward Yoder Location: [facility] B641/B Date: 09/05/2023 Time: 5:41 AM DIAGNOSIS: Intraabdominal abscess PROCEDURE: 08/02 total gastrectomy with Yeison y esophago-jejunostomy SUBJECTIVE: No acute events overnight. Tolerating CLD without issues. Pain and nausea improved. Having bowel function. Ambulating. Afebrile. OBJECTIVE: Most Recent Vital Signs: BP: 128 mmHg/84 mmHg (09/05/23308) Pulse: 56 (09/05/23308) Temp: 36.28 C (09/04/23 2300) Resp: 16 (09/05/23308) SpO2: 99 % (09/05/23308) Vital Signs Last 24 Hours: Systolic BP: Most Recent Systolic BP Av mmHg Min: 97 mmHg Max: 128 mmHg Temperature: Most Recent Temperature Av.6 C Min: 36.28 C Max: 37.11 C Pulse: Pulse Av.3 Min: 55 Max: 65 Respirations: Resp Av.7 Min: 14 Max: 16 SpO2: SpO2 Av.2 % Min: 98 % Max: 100 % Intake/Output Summary (Last 24 hours) at 09/05/2023 0541 Last data filed at 09/05/2023 0500 Gross per 24 hour Intake 4685 ml Output 2450 ml Net 2235 ml Physical Exam: Constitutional: no acute distress HEENT: normocephalic, atraumatic Eyes: sclera and conjunctiva normal CV: normal rate Chest: normal respiratory effort, mediport Abdomen: soft, nondistended, non TTP Extremities: no clubbing, cyanosis, or edema, otherwise grossly normal, warm, and dry Surgical site: midline incision c/d/I with dermabond Skin: warm, dry Neuro: alert, oriented LABS: Labs reviewed as indicated below: CBC Lab Results Component Value Date/Time WBC 4.06 09/04/2023 08:49 AM WBC 8.71 03/16/2018 04:22 AM HGB 9.9 (L) 09/04/2023 08:49 AM HGB 14.1 04/11/2021 12:00 AM HGB 11.6 (L) 03/16/2018 04:22 AM HCT 31.1 (L) 09/04/2023 08:49 AM HCT 33.8 (L) 03/16/2018 04:22 AM PLT 350 09/04/2023 08:49 AM PLT 175 03/16/2018 04:22 AM BMP Lab Results Component Value Date/Time NA 136 09/04/2023 08:49 AM NA 140 03/16/2018 04:22 AM POTASSIUM 3.6 09/04/2023 08:49 AM POTASSIUM 3.9 04/11/2021 12:00 AM POTASSIUM 3.9 03/16/2018 04:22 AM CL 101 09/04/2023 08:49 AM CL 105 03/16/2018 04:22 AM CO2 24 09/04/2023 08:49 AM CO2 24 03/16/2018 04:22 AM BUN 6 09/04/2023 08:49 AM BUN 9 03/16/2018 04:22 AM CREAT 0.7 09/04/2023 08:49 AM CREAT 1.03 04/11/2021 12:00 AM CREAT 0.9 03/16/2018 04:22 AM IMAGING: Reviewed IMPRESSION: Principal Problem: Postprocedural intraabdominal abscess Active Problems: Dehydration Resolved Problems: * No resolved hospital problems. * Edward Yoder is a 58 year old male s/p total gastrectomy with Yeison y esophago-jejunostomy on 08/02/2023 for a Siewert III gastric cancer presenting with abdominal pain, nausea and diarrhea. CT demonstrates a 5cm abscess near EJ PLAN: -Pain: Tylenol, oxycodone prn -Fluids: isolyte 100ml/hr, discontinue -Electrolytes: Replete as needed -Nutrition: advance to FLD -GI: Zofran -Abx: Zosyn, transition to Augmentin -Drains/Devices: none -DVT ppx: SCDs, Lovenox -Resp: I/Os, IS -Ambulation: OOB -PT/OT: consulted -Home meds: none to resume -Dispo:med surg The patient will be discussed with Dr. Edmonds. Associated attestation - Praveen Edmonds MD - 09/05/2023 8:44 AM EST I saw and evaluated the patient today. I have reviewed the trainee note and agree. 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 He had a telemedicine follow up on 08/31/2022 and was doing well post-op and his constipation had resolved. Pathology revealed negative margins and all nodes were negative for cancer. He presnted to [facility] for abdominal pain, nausea and diarrhea. CT demonstrated 5 cm abscess near the anastomotic site.He was transferred to [facility] for continuation of care.Currently, the patient reports some dull epigastric abdominal pain. Denies fevers, chills, nausea, chest pain, dizziness, or headache. HOSPITAL PROBLEM LIST: Active Problems: Patient Active Problem List Diagnosis Code Degeneration [...] Hypokalemia E87.6 History of esophageal cancer Z85.01 POA = Present On Admission PAST MEDICAL [...] performed by Homar Blair MD at [facility] EGD, FLEXIBLE, DIAGNOSTIC 03/30/2023 ESOPHAGOGASTRODUODENOSCOPY (EGD), FLEXIBLE, TRANSORAL, DIAGNOSTIC performed by Homar Blair MD at [facility] EGD, W/ENDOSCOPIC US N/A 04/01/2023 ESOPHAGOGASTRODUODENOSCOPY (EGD), FLEXIBLE, TRANSORAL, ENDOSCOPIC ULTRASOUND performed by Karson Greco MD at ENDOSCOPY [facility] EXPLORE/DECOMPRESS CRANIAL NERVES Left 03/15/2018 CRANIECTOMY SUBOCCIPITAL EXPLORATION CRANIAL NERVES performed by Ronak Khoury MD at OR [facility] INSER TUNN ACC DEV;5 YRS/OLDER Right 04/19/2023 INSERT TUNNELED CENTRAL VENOUS ACCESS WITH SUBQ PORT performed by Thaddeus Brown DO at OR [facility] MICROSURGERY ADD-ON Left 03/15/2018 MICROSURGICAL SURGERY REQUIRING MICROSCOPE LISTED SEPARATELY performed by Ronak Khoury MD at OR [facility] REMOVE STOMACH, TOTAL N/A 08/02/2023 GASTRECTOMY TOTAL WITH ESOPHAGOENTEROSTOMY performed by Praveen Edmonds MD at OR [facility] SPINAL FLUID TAP FOR DRAINAGE Left 03/15/2018 SPINAL PUNCTURE DRAINAGE CSF performed by Ronak Khoury MD at OR [facility] MEDICATIONS: Prior to Admission medications Medication Sig Last Dose Discont. Morphine Sulfate (Concentrate) 100 MG/5ML Oral Solution Take 0.25 mL by mouth every 4 hours as needed for Pain, Moderate. Past Week LORazepam 0.5 MG Oral Tablet (Ativan) TAKE ONE TABLET BY MOUTH EVERY 6 HOURS NEEDED FOR ANXIETY OR SLEEP 09/02/2023 Enoxaparin Sodium 40 MG/0.4ML Injection Solution Prefilled Syringe (Lovenox) Inject 40 mg under theskin in the morning. Past Month oxyCODONE HCl 5 MG Oral Tablet (Oxy IR) Take 1 Tablet by mouth every 4 hours as needed for Pain, Severe. Unknown Ondansetron HCl 8 MG Oral Tablet (Zofran) Take 1 Tablet by mouth every 8 hours as needed for Nausea. 09/02/2023 Acetaminophen 160 MG/5ML Oral Liquid (Tylenol) Take 20.3 mL by mouth every 4 hours as needed for Pain, Breakthrough. 09/01/2023 Vitamin B-12 1000 MCG Oral Tablet (Cyanocobalamin) Take 1 Tablet by mouth in the morning. Unknown Dexamethasone 4 MG Oral Tablet (Decadron) Take 8mg twice a day x3 days starting the day before chemotherapy Unknown Lidocaine-Prilocaine 2.5-2.5 % External Cream (Emla) APPLY TO SKIN OVER MEDIPORT & COVER 1HR PRIOR TO ACCESSING. Unknown Prochlorperazine Maleate 10 MG Oral Tablet (Compazine) Take 1 Tablet by mouth every 6 hours as needed for Nausea. Past Week Thiamine HCl 100 MG Oral Tablet (vitamin B-1) Take 1 Tablet by mouth daily. Unknown FAMILY HISTORY: Family History Problem Relation Age [...] PHYSICAL EXAMINATION: Most Recent Vital Signs: BP: 126 mmHg/82 mmHg (09/02/231537) Pulse: 65 (09/02/231537) Temp: 36.56 C (09/02/231537) Resp: 16 (09/02/231537) SpO2: 97 % (09/02/231537) Vital Signs Over Last 24 Hours: Systolic BP: Most Recent Systolic BP Av mmHg Min: 126 mmHg Max: 126 mmHg Temperature: Most Recent Temperature Av.56 C Min: 36.56 C Max: 36.56 C Pulse: Pulse Av Min: 65 Max: 65 Respirations: Resp Av Min: 16 Max: 16 SpO2: SpO2 Av % Min: 97 % Max: 97 % Physical Exam: Constitutional: alert, no acute distress Head: normocephalic, atraumatic Eyes: conjunctiva non-injected, sclera white Ears: pinna normal shape and color Chest: right sided mediport in place Nose: no mucosal erythema, no mucosal edema, and no purulent discharge Mouth: no exudate, no erythema, and lips, mucosa, and tongue normal Neck: supple, trachea midline Lungs: normal respiratory effort on room air Heart: regular rate & rhythm and intact distal pulses Abdomen: soft, mild epigastric TTP, no rebound tenderness Back: normal curvature, normal ROM, no CVA tenderness Extremities: no joint deformities, effusion, or inflammation, no edema, no skin discoloration, palpable peripheral pulses Neuro: alert, motor & sensation grossly intact Skin: no obvious rashes or significant lesions CBC Lab Results Component Value Date/Time WBC 10.56 08/25/2023 12:37 PM WBC 8.71 03/16/2018 04:22 AM HGB 10.7 (L) 08/25/2023 12:37 PM HGB 14.1 04/11/2021 12:00 AM HGB 11.6 (L) 03/16/2018 04:22 AM HCT 34.1 (L) 08/25/2023 12:37 PM HCT 33.8 (L) 03/16/2018 04:22 AM PLT 527 (H) 08/25/2023 12:37 PM PLT 175 03/16/2018 04:22 AM BMP Lab Results Component Value Date/Time NA 140 08/25/2023 12:37 PM NA 140 03/16/2018 04:22 AM POTASSIUM 4.1 08/25/2023 12:37 PM POTASSIUM 3.9 04/11/2021 12:00 AM POTASSIUM 3.9 03/16/2018 04:22 AM CL 102 08/25/2023 12:37 PM CL 105 03/16/2018 04:22 AM CO2 25 08/25/2023 12:37 PM CO2 24 03/16/2018 04:22 AM BUN 6 08/25/2023 12:37 PM BUN 9 03/16/2018 04:22 AM CREAT 0.8 08/25/2023 12:37 PM CREAT 1.03 04/11/2021 12:00 AM CREAT 0.9 03/16/2018 04:22 AM CA 10.0 08/25/2023 12:37 PM CA 8.6 03/16/2018 04:22 AM Creatinine Lab Results Component Value Date/Time CREAT 0.8 08/25/2023 12:37 PM CREAT 0.5 (L) 08/08/2023 08:22 AM CREAT 0.5 (L) 08/07/2023 06:34 AM CREAT 1.03 04/11/2021 12:00 AM CREAT 0.9 03/16/2018 04:22 AM CREAT 0.9 03/15/2018 07:53 AM CREAT 0.9 02/16/2018 10:17 AM Lactate Lab Results Component Value Date/Time LAC 1.2 03/31/2023 05:34 PM Ca, Mg, Phos Lab Results Component Value Date/Time CA 10.0 08/25/2023 12:37 PM CA 8.6 03/16/2018 04:22 AM MG 2.2 08/25/2023 12:37 PM PHOSPHORUS 4.2 08/08/2023 08:22 AM Hepatic Function Panel Lab Results Component Value Date/Time TBIL 0.3 08/25/2023 12:37 PM DBIL 0.2 08/06/2023 06:43 AM ALKP 178 (H) 08/25/2023 12:37 PM AST 23 08/25/2023 12:37 PM ALT 43 08/25/2023 12:37 PM PROT 7.6 08/25/2023 12:37 PM Lipase Lab Results Component Value Date/Time LIPA 27 03/31/2023 05:34 PM Coags Lab Results Component Value Date/Time INR 1.1 04/01/2023 07:06 PM INR 1.01 02/16/2018 10:17 AM Troponin T No components found for: "HSTNT" Arterial Blood Gas No results found for: "PH", "PCO2", "PO2", "HCO3" IMAGING: CT A/P with IV contrast IMPRESSION: 1. Postoperative changes compatible with recent [...] fluid collection would be difficult to exclude. IMPRESSION and PLAN: Edward Yoder is a 58 year old male s/p total gastrectomy with Yeison y esophago-jejunostomy on 08/12/2023 for a Siewert III gastric cancer presenting with abdominal pain, nausea and diarrhea. CT demonstrates a 5cm abscess near EJ. - Admit to surgical oncology - IV antibiotics - CLD; advance diet as tolerated - labs pending - Covid and RSP panel negative at [facility] Diet: CLD Pain: tylenol Abx: Zosyn IVF: Isolyte @ 100mL/hr Replete electrolytes PRN I/Os, IS OOB Ambulation Bowel Regimen: none DVT ppx: SCDs, TEDs , & lovenox GI ppx: none Zofran, Compazine prn PT/OT: recommendations pending Dispo: med surg Patient discussed w/ Dr. Edmonds REFERRING PHYSICIAN: 1. Janet Kuhn MD PRIMARY CARE PHYSICIAN: No primary care provider on file. Associated attestation - Praveen Edmonds MD - 09/05/2023 8:44 AM EST I did not see the patient, but I have reviewed the trainee documentation and was readily available on date of service. documented in this encounter Consult Notes * Ced Munoz RN - 09/05/2023 8:14 AM ESTAssociated Order(s): BLOOD MANAGEMENT CONSULT IP CONSULT - Patient Blood Management [address] [address] Name: Edward Yoder Location: [facility] B641/B Date: 09/05/2023 Time: 8:15 AM REQUESTING SERVICE: [facility] Surgery blue REASON FOR CONSULT: new evaluation inpatient, anemia Recent hemorrhage: no History of prior anemia: yes Recent surgery: no Anemia Evaluation: Latest Reference Range & Units 08/25/23 12:37 09/02/23 16:54 09/03/23 07:52 09/04/23 08:49 09/05/23 07:28 HGB 14.0 - 16.8 g/dL 10.7 (L) 10.4 (L) 10.2 (L) 9.9 (L) 9.4 (L) HCT 40.0 - 48.4 % 34.1 (L) 31.7 (L) 30.8 (L) 31.1 (L) 29.9 (L) (L): Data is abnormally low Current Patient Medications: Medications that may impair hemostasis: lovenox Medications that may impair iron absorption: none Patient Refused Blood Transfusion? (e.g. Rastafarian): no Possible Contributing Factors: unclear Treatment Recommendations: If no active hemorrhage, consider PRBC transfusion only for severe anemia and use a 1 unit PRBC dose followed by a repeat clinical assessment. For reversal of anticoagulation therapy, use Reversal of Anticoagulation order set. Limit and coordinate blood draws to prevent iatrogenic anemia. Add on anemia labs. Latest Reference Range & Units 09/05/23 07:28 Iron 45 - 176 ug/dL 50 Iron Binding Capacity 250 - 425 ug/dL 190 (L) Transferrin Saturation Percent 15 - 55 % 26 Ferritin 30 - 400 ng/mL 351 Vitamin B12 232 - 1,245 pg/mL 709 Folic Acid >4.5 ng/mL 15.0 Immature Reticuloctye Fraction 2.5 - 20.6 % 2.8 Reticulocyte Hemoglobin 29.7 - 37.4 pg 33.5 (L): Data is abnormally low No anemia deficiencies to treat at present Follow-up Recommendations: Follow up with PCP for further assessment/management of anemia post discharge. Thank you for allowing Blood Management to participate in the care of this patient. * Cherie Mckeon RDN - 09/04/2023 1:33 PM EST CLINICAL NUTRITION CONSULT/PROGRESS NOTE [address] [address] Name: Edward Yoder Location: [facility] B641/B Date: 09/04/2023 Time: 10:45 PM How patient was identified (select 2): date and Name Discussed in interdisciplinary rounds: Jana Sanford Yoder is a 58 year old male being seen for significant unintentional weight loss Primary Diagnosis: Admitted with intraabdominal abscess. Patient is s/p total gastrectomy with Rouxy esophago-jejunostomy on 08/02/23 for gastric cancer., moderate malnutrition Other pertinent information: Sister at bedside. Patient sitting in chair--having dry heaves. He stated he was eating good after his surgery until the abscess occurred about 1-2 days TUBE BLOWER. Was eating 3meals per day. Plus one ensure daily. . Likes the boost breeze.and would like to try that. Patient was not feeling good so limited hx obtained. NUTRITION ASSESSMENT: Past medical/surgical history and medications reviewed. Food/Nutrition-Related History Diet: Clear Liquid Previously followed diet: regular Food Allergies/Intolerances: none Adult Energy Intake: No significant decrease Pertinent medications/vitamins/minerals/supplements: isolyte infusion, Pertinent Biochemical Data: Nutrition related labs reviewed. There are no biochemical abnormalitiesrequiring a change in the nutrition plan of care at this time. Nutrition-Focused Physical Findings: Appearance: Ill-appearing and Thin Respiratory support: Supplemental O2 Delivery: Room Air, None Nasal/Oral: No issues identified Digestive: Nausea and Vomiting; total gastrectomy Last Bowel Movement: 08/28/23 (per pt) (09/02/232020) Cognition: Awake, alert and Oriented Skin: Intact Enteral access: none Nutrition Focused Physical Exam: NFPE completed on 09/04/23 Subcutaneous Fat Loss: Orbital fat pads: Moderate Buccal fat: Moderate Tricep: Moderate Muscle Loss: Temples: Moderate Clavicles: Mild Shoulders: Moderate Interosseous: Moderate Anthropometrics Measurements Last known height as of 08/02/23: 180.3 cm Admission weight: 57.2 kg Weight: 57.2 kg (126 lb 3.2 oz) (09/02/23 1538) Usual Body Weight: 68-67 kg per EHR Edna weight: 70.6 kg Edna Weight Based on BMI: 21.7 Interpretation of Weight Change Prior to Admission: Greater than 5% weight loss in 1 month (Severe)( if admit wt correct) Weight loss from March to May with weight gain from Jun to Jul based on EHR wts Nutrition Prescription: Energy needs: 30-35 Kcal/kg Kcal/day: 4553-0500 Based on admission weight Protein needs: 1.2-1.3 gm/kg Protein: 69-74 Based on admission weight Fluid needs: 30 ml/kg Fluid: 2002 ml/day Based on admission weight Malnutrition: Malnutrition Present: Yes (09/04/23 135) Adult Malnutrition Classification: Moderate (09/04/23 135) Malnutrition Characteristics: Weight loss;Muscle loss;Fat loss (09/04/23 135) Malnutrition Care Plan: Patient meets ASPEN/AND criteria for moderate malnutrition. Patient is currently on clear liquids secondary to N/V.. To follow for advancement of diet and/or implementation of appropriate malnutrition intervention per clinical guidelines. Should diet not be advanced in 5 days, will consider enteral or parenteral nutrition. Dietitian Action: Oral nutritional supplement ordered/adjusted (09/04/23 1351) Boost Breeze (1 cup provides 250 calories, 9 grams protein, 54 grams carbohydrate) daily-- will increase to BID if toerated NUTRITION DIAGNOSIS: Malnutrition moderate related to chronic illness as evidenced by greater than 5% weight loss x 1 month and moderate fat and muscle loss. Goals: Diet advancement or initiation of enteral/parenteral nutrition within 24-48 hours. NUTRITION INTERVENTION/PLAN: Orders: Oral nutrition supplement added Boost Breeze (1 cup provides 250 calories, 9 grams protein, 54 grams carbohydrate) daily Continue to monitor NPO/clear liquid status Clinical Nutrition Recommendations: Diet: Advance diet when clinically feasible NUTRITION MONITORING AND EVALUATION: NPO status/diet advancement and tolerance Nursing documentation flowsheets for percent meal intake Tolerance of supplement per patient/nursing report Lab values warranting change with MNT Weight for trends Plan follow-up: Will follow and adjust nutrition plan of care as medical condition requires. Please contact for change(s) in patient condition requiring earlier intervention. Cherie Mckeon, MS, RD, LDN, FNKF Clinical Dietitian [facility] Extension: [phone] Paige Text * Amaya Marie, PT - 09/04/2023 9:05 AM ESTAssociated Order(s): ADULT PHYSICAL THERAPY CONSULT IP GENERAL EVALUATION - Physical Therapy [address] [address] Name: Edward Yoder Location: [facility] B641/B Date: 09/04/2023 Time: 1:43 PM Edward Yoder is a/an 58 year old male. Patient Status: Inpatient Insurance: Payor: [employer] [place] - [place] ([employer]) Plan: [employer] Product Type: *No Product type* Patient Seen: at bedside, nursing cleared patient for therapy Patient Identified By: Name, ID Band and Date Diagnosis: s/p total gastrectomy (09/04/23904) Status of treatment: Discontinue services on evaluation (09/04/23904) Orders: PT evaluation and treatment;OOB (09/04/23904) Weight Bearing Status: Weight bearing as tolerated (09/04/23904) Precautions: Falls;Safety (09/04/23904) Total Treatment Time--free text: 15 (09/04/23904) Past Medical History: Past Medical History: Diagnosis [...] performed by Homar Blair MD at [facility]OSCOPY [facility] EGD, FLEXIBLE, DIAGNOSTIC 03/30/2023 ESOPHAGOGASTRODUODENOSCOPY (EGD), FLEXIBLE, TRANSORAL, DIAGNOSTIC performed by Homar Blair MD at [facility]OSCOPY [facility] EGD, W/ENDOSCOPIC US N/A 04/01/2023 ESOPHAGOGASTRODUODENOSCOPY (EGD), FLEXIBLE, TRANSORAL, ENDOSCOPIC ULTRASOUND performed by Karson Greco MD at ENDOSCOPY [facility] EXPLORE/DECOMPRESS CRANIAL NERVES Left 03/15/2018 CRANIECTOMY SUBOCCIPITAL EXPLORATION CRANIAL NERVES performed by Ronak Khoury MD at OR [facility] INSER TUNN ACC DEV;5 YRS/OLDER Right 04/19/2023 INSERT TUNNELED CENTRAL VENOUS ACCESS WITH SUBQ PORT performed by Thaddeus Brown DO at OR [facility] MICROSURGERY ADD-ON Left 03/15/2018 MICROSURGICAL SURGERY REQUIRING MICROSCOPE LISTED SEPARATELY performed by Ronak Khoury MD at [facility] REMOVE STOMACH, TOTAL N/A 08/02/2023 GASTRECTOMY TOTAL WITH ESOPHAGOENTEROSTOMY performed by Praveen Edmonds MD at [facility] SPINAL FLUID TAP FOR DRAINAGE Left 03/15/2018 SPINAL PUNCTURE DRAINAGE CSF performed by Ronak Khoury MD at [facility] Subjective: Pt is willing to participate with therapy Social History/Disposition Lives with: Spouse (09/04/23849) Assistance available: Yes (09/04/23849) Dwelling type: Single story home (09/04/23849) Entry steps: 3 (09/04/23849) Inside steps: None (09/04/23849) Bedroom location: 1st floor (09/04/2350) Bath location: 1st floor full bath (09/04/23849) Prior Level of Function Reported by: Patient (09/04/23904) Ambulation: Ambulatory without device (09/04/23904) Devices at home: No device (09/04/23904) Observations Consciousness: Alert (09/04/23904) Psychosocial: Patient can communicate basic needs;Patient can converse in a social setting (09/04/23904) Other Findings: Yes (09/04/23904) Findings: Light touch sensation (09/04/23904) Light Touch Sensation Results: Intact;LLE;RLE (09/04/23904) Sitting Posture: Forward head;Rounded shoulders (09/04/23904) Standing Posture: Forward head;Rounded shoulders (09/04/23904) Pain: No complaints of pain Range of Motion Range of Motion: WNL (09/04/23904) Strength Assessment Strength Assessment: Deficits noted (09/04/23904) WNL, except: LLE;RLE (09/04/23904) LLE: 4/5 (09/04/23904) RLE: 4/5 (09/04/23904) P.T. Bed Mobility Supine-Sit: Independent (09/04/23904) Transfers Sit-Stand: Independent (09/04/23904) Stand-Sit: Independent (09/04/23904) Ambulation: Distance ambulated (feet): 250 Assistive Device: No device Assist: Independent Stair Training: Number of stairs: 3 Number of handrails: 1 Level of Assistance: Independent Balance Sit (Static): Good (09/04/23904) Sit (Dynamic): Good (09/04/23904) Stand (Static): Good (09/04/23904) Stand (Dynamic): Good (09/04/23904) Patient and or Family Goal(s): to get well and to return home Patient Education Review of Precautions: Safety;Fall (09/04/23904) Safety Awareness: Patient verbalizes insight of current deficits;Patient demonstrates carryover of insight during functional tasks;Patient can communicate basic needs (09/04/23904) Preferred learning method: Combination (09/04/23904) Barriers to learning: Medical Status (09/04/23904) Method of Education: Verbalized to patient (09/04/23904) Topic of Education: Safety with mobility, Goals/plan of care, and Fall prevention Method of Education: Verbal discussion and explanation provided to patient: verbalized understanding and or agreement of this information and demonstrated the exercise and or task Treatment Provided: Evaluation Low Complexity 15 minutes - 22161: Patient was cooperative, pleasant, and alert during treatment session. Low complexity evaluation performed with indication of no personal factors or comorbidities that impact plan of care. Patient presents with limitations in none, which will impact plan of care. These limitations will be addressed by the goals set for this patient. Alarm Status Patient positioned in: Chair (09/04/23904) With: Call das in reach (09/04/23904) Treatment Status: Treatment at bedside (09/04/23904) Goals: None Assessment: Pt is a 58 y/o male treated at this facility s/p total gastrectomy. Prior to admission pt was independent with all mobility without an AD, living with his in a one story home. He demonstrates similar level of independence with all mobility this date. Due to current functional status with mobility, no further skilled physical therapy needs are identified at this time. Please consider return to home once medically appropriate for discharge. Equipment Needs: Treatment Plan: Discontinue from Physical Therapy Services AM PAC Score with Stairs: 24 A portion of this AM-PAC assessment not scored based on functional assessment; rather clinical decision making utilized based on current findings and/or prior level of function. Please refer to future AM-PAC calculations of functional ability as they become available. * Christen Duran OTR/Chery - 09/04/2023 8:50 AM ESTAssociated Order(s): ADULT OCCUPATIONAL THERAPY CONSULT IP GENERAL EVALUATION - Occupational Therapy [address] [address] Name: Edward Yoder Location: [facility] B641/B Date: 09/04/2023 Time: 8:50 AM Edward Yoder is a 58 year old male. Patient Status: Inpatient Insurance: Payor: ERUM TADEO - PAUL ([employer]) Plan: [employer] ERUM MILLER Product Type: *No Product type* Patient Seen: at bedside, nursing cleared patient for therapy Patient Identified By: Name, ID Band and Date Diagnosis: s/p gastrectomy (09/04/2350) Status of treatment: Discontinue services on evaluation (09/04/2350) Orders: OT evaluation and treatment (09/04/2350) Weight Bearing Status: Weight bearing as tolerated (09/04/2350) Precautions: Falls;Safety (09/04/23849) Total Treatment Time: 15 (09/04/23849) Past Medical History: Past Medical History: Diagnosis [...] performed by Homar Blair MD at ENDOSCOPY [facility] EGD, FLEXIBLE, DIAGNOSTIC 03/30/2023 ESOPHAGOGASTRODUODENOSCOPY (EGD), FLEXIBLE, TRANSORAL, DIAGNOSTIC performed by Homar Blair MD at ENDOSCOPY [facility] EGD, W/ENDOSCOPIC US N/A 04/01/2023 ESOPHAGOGASTRODUODENOSCOPY (EGD), FLEXIBLE, TRANSORAL, ENDOSCOPIC ULTRASOUND performed by Karson Greco MD at ENDOSCOPY [facility] EXPLORE/DECOMPRESS CRANIAL NERVES Left 03/15/2018 CRANIECTOMY SUBOCCIPITAL EXPLORATION CRANIAL NERVES performed by Ronak Khoury MD at OR [facility] INSER TUNN ACC DEV;5 YRS/OLDER Right 04/19/2023 INSERT TUNNELED CENTRAL VENOUS ACCESS WITH SUBQ PORT performed by Thaddeus Brown DO at OR [facility] MICROSURGERY ADD-ON Left 03/15/2018 MICROSURGICAL SURGERY REQUIRING MICROSCOPE LISTED SEPARATELY performed by Ronak Khoury MD at [facility] REMOVE STOMACH, TOTAL N/A 08/02/2023 GASTRECTOMY TOTAL WITH ESOPHAGOENTEROSTOMY performed by Praveen Edmonds MD at [facility] SPINAL FLUID TAP FOR DRAINAGE Left 03/15/2018 SPINAL PUNCTURE DRAINAGE CSF performed by Ronak Khoury MD at OR [facility] Social History/Disposition Lives with: Spouse (09/04/23849) Assistance available: Yes (09/04/23849) Dwelling type: Single story home (09/04/23849) Entry steps: 3 (09/04/23849) Inside steps: None (09/04/23849) Bedroom location: 1st floor (09/04/23849) Bath location: 1st floor full bath (09/04/23849) Prior Level of Function Reported by: Patient (09/04/23849) Ambulation: Ambulatory without device (09/04/23849) Grooming: Independent (09/04/23849) Bathing: Independent (09/04/23849) Dressing: Independent (09/04/23849) Feeding: Independent (09/04/23849) Toileting: Independent (09/04/23849) Meal Prep: Independent (09/04/23849) Homemaking: Independent (09/04/23849) Durable Medical Equipment at home: No device (09/04/23849) Subjective: Pt pleasant and cooperative, agreeable to OT evaluation. Pain: No complaints of pain Observations Consciousness: Alert (09/04/23849) Orientation: Oriented times 4 (09/04/23849) Psychosocial: Patient can communicate basic needs;Patient can converse in a social setting (09/04/23849) Sitting posture: Forward head;Rounded shoulders (09/04/23849) Standing posture: Forward head;Rounded shoulders (09/04/23849) Safety awareness: The Patient verbalizes insight of current deficits. (09/04/23849) Other Findings Endurance: Fair (09/04/23849) Light touch sensation: LUE;RUE;Intact (09/04/23849) Coordination: LUE;RUE;Gross motor;Fine motor;Intact (09/04/23849) Current Functional Status: Bilateral Upper Extremity Range of Motion: WFL (09/04/23849) Strength Assessment: (B WFL) (09/04/23849) Dressing Upper Body: Not Tested (09/04/23849) Lower Body: Independent (sneakers) (09/04/23849) Functional Ambulation Assistive Device: No device (09/04/23849) Distance in feet:: 250 (09/04/23849) Level of Assistance: Independent (09/04/23849) Bed Mobility Supine-Sit: Independent (09/04/23849) OT Transfers Sit-Stand: Independent (09/04/23849) Stand-Sit: Independent (09/04/23849) Balance Sit (Static): Good (09/04/23849) Sit (Dynamic): Good (09/04/23849) Stand (Static): Good (09/04/23849) Stand (Dynamic): Good (09/04/23849) Alarm Status Patient positioned in: Chair (09/04/23849) With: Call das in reach (bed alarm not on upon therapist arrival, therefore chair alarm not activated at this time) (09/04/23849) Patient and Family Goals: to get well and to return home Patient Education Education Topic: Role of OT;Plan of care goals (09/04/23849) Review of Precautions: Safety;Fall (09/04/23849) Method of Education: Verbalized to patient (09/04/23849) Education Provided to: Patient (09/04/23849) Response to Education: Receptive and agreeable to education (09/04/23849) Barriers to learning: None (09/04/23849) Preferred learning method: Combination (09/04/23849) Treatment Provided: Evaluation Low Complexity 15 minutes - 28105: Patient was cooperative and pleasant during treatment session. Low complexity evaluation performed and no deficits were identified that result in activity limitation. The patient does not have any comorbidities that affect occupational performance. There were no modifications necessary to complete the evaluation. Assessment: Pt is a 58 yr old male admitted to the hospital on 09/02 s/p gastrectomy procedure. Pt lives with spouse and completed ADL tasks/IADL tasks and functional mobility with independence. Pt seen for OT evaluation on this date. Pt completed LB dressing of donning sneakers, bed mobility of supine to sit, sit to stand transfer from bed, and functional mobility in hallway with independence. Pt demonstrated fair safety awareness, and reports no concerns regarding taking care of self or functional mobility at this time. Pt presents with no deficits that limit self care ADL task completion and functional mobility at this time. Currently, further OT services are not warranted. Discontinue OT services. Treatment Plan: Discontinue Occupational Therapy services AM-PAC Help From Another Person Eating Meals: None (09/04/23 0850) Help From Another Person Taking Care of Personal Grooming: None (09/04/23 0850) Help From Another Person To Put On/Take Off Upper Body Clothing: None (09/04/23 0850) Help From Another Person To Put On/Take Off Lower Body Clothing: None (09/04/2350) Help From Another Person Toileting: None (09/04/2350) Help From Another Person Bathing: None (09/04/23 0850) OT AM-PAC Score: 24 (09/04/23 0850) OT AM-PAC t-Scale Score: 57.54 (09/04/23 0850) HLM (Highest Level of Mobility) Goal: Level 8 walk 250 feet or more (09/03/23 1036) A portion of this AM-PAC assessment not scored based on functional assessment; rather clinical decision making utilized based on current findings and/or prior level of function. Please refer to future AM-PAC calculations of functional ability as they become available. documented in this encounter Nursing Notes * Nette Conley RN - 09/02/2023 6:04 PM EST Dual Licensed Skin Assessment completed by hitesh chun and nette conley. The patient is/has a N/A Skin Breakdown (includes non blanchable erythema): No documented in this encounter Miscellaneous Notes * Progress Notes - Non-Billable - Chinmay Lee CRNP - 09/05/2023 9:37 AM EST PROGRESS NOTE - General Surgery Discharge Transition [facility] [address] Name: Edward Yoder Location: [facility] B641/B Date: 09/05/2023 Time: 9:38 AM Admitting Diagnosis: intra-abdominal abscess, Siewert gastric cancer PROCEDURE: none at this admission. S/p 08/02/23 Total gastrectomy with Yeison y esophago-jejunostomy Estimated Discharge Date: 09/05/2023 Subjective: Pt was ambulating in the hallway. Tolerated FLD for breakfast, denied nausea/vomiting. Incisional pain controlled. Ambulating. Voiding without difficulty. had BM. TUBE BLOWER takes morphine liquid for pain, has enough at home. Review of Systems: Constitutional: (-) fever chills sweats or weight loss Abdominal/GI: (-) negative: no pain, heartburn, dysphagia, bleeding, change in bowel habits, nauseaor vomiting Most Recent Vital Signs: BP: 102 mmHg/64 mmHg (09/05/23718) Pulse: 66 (09/05/23718) Temp: 36.78 C (09/05/23718) Resp: 16 (09/05/23718) SpO2: 98 % (09/05/23718) Constitutional: no acute distress Abdomen: soft, no tenderness, nondistended Surgical site: incision CDI Lab and Radiology: Pending results: No results pending Discharge Preparation: Consultation: No pending consultations to be completed Discharge Medication Plans: Pain Management: resume TUBE BLOWER morphine liquid DVT Needs: None GI: None Antibiotics: augmentin Stool Softener: None Anticipated Diet at Discharge: Regular Disposition / Needs Post Discharge: Home Return Appointments Planned: Surgeon in 2 weeks and PCP in 1 weeks Reviewed d/c instructions with patient and answered questions patient had. Patient showed understanding and agreed to call if there is any concern. CHAVO Pelaez 09/05/2023 9:40 AM Pt tolerated regular diet for lunch, denied nausea/vomiting. Dc home today. CHAVO Pelaez 09/05/2023 1:13pm * Care Plan - Jose Mcgraw RN - 09/05/2023 3:00 AM EST Problem: Pain & Impaired Comfort Goal: Patient's pain & discomfort is manageable. Outcome: Progressing Problem: Safety & Risk for Injury Goal: Patient will remain free from injury. Outcome: Progressing Problem: Daily Care & Potential Self-Care Deficit Goal: Patient's daily care needs are met. Outcome: Progressing Problem: Risk for Impaired Physical Mobility Goal: Patient will maintain optimal mobility level. Outcome: Progressing Problem: Knowledge Deficit Goal: Patient & caregiver will demonstrate understanding. Outcome: Progressing Problem: Discharge Barriers Goal: Patient's discharge needs are met. Outcome: Progressing Problem: Actual & Potential for Falls Goal: Patient will remain free of falls. Outcome: Progressing Clinical Goal(s): PT will remain free from falls overnight. (09/04/23 1918) Possible barriers to meeting goal(s)/advancing plan of care: risk for falls R/T IVF infusing, pain control, nausea present. Stability of the patient: Moderately stable - low risk of patient condition declining or worsening Summary regarding today's goal(s): Met: Pt met goal- remained free from falls. Recommendations: continue to manage pain levels, manage nausea, continue to encourage mobility, OOBTID, Q1H pain/rounding. Educate on mobility. * Care Plan - Nette Conley RN - 09/04/2023 1:25 PM EST Clinical Goal(s): pt will remain free from injury this shift (09/04/23 0700) Possible barriers to meeting goal(s)/advancing plan of care: weakness Stability of the patient: Moderately stable - low risk of patient condition declining or worsening Summary regarding today's goal(s): Met: yes Recommendations: assist with mobility * Care Plan - Jose Mcgraw RN - 09/04/2023 1:46 AM EST Problem: Pain & Impaired Comfort Goal: Patient's pain & discomfort is manageable. Outcome: Progressing Problem: Safety & Risk for Injury Goal: Patient will remain free from injury. Outcome: Progressing Problem: Daily Care & Potential Self-Care Deficit Goal: Patient's daily care needs are met. Outcome: Progressing Problem: Risk for Impaired Physical Mobility Goal: Patient will maintain optimal mobility level. Outcome: Progressing Problem: Knowledge Deficit Goal: Patient & caregiver will demonstrate understanding. Outcome: Progressing Problem: Discharge Barriers Goal: Patient's discharge needs are met. Outcome: Progressing Problem: Actual & Potential for Falls Goal: Patient will remain free of falls. Outcome: Progressing Clinical Goal(s): PT will remain free from falls/injury, (09/03/23 1941) Possible barriers to meeting goal(s)/advancing plan of care: pt has increased pain r/t surgical wound in abd. -causing generalized pain upon mobility- increased risk for weakness upon standing/ambulating. Stability of the patient: Moderately stable - low risk of patient condition declining or worsening Summary regarding today's goal(s): Met: PT remained free from falls/injury. Recommendations: Continue to assess mobility, pain, risk for injury/falls. Q1h pain assess, encourage pt to OOB and ambulate TID. * Care Plan - Nette Conley RN - 09/03/2023 11:14 AM EST Clinical Goal(s): pt nyasia remain free from falls this shift (09/03/23 0700) Possible barriers to meeting goal(s)/advancing plan of care: weakness Stability of the patient: Moderately stable - low risk of patient condition declining or worsening Summary regarding today's goal(s): Met: yes Recommendations: assist with mobility * Care Plan - Jose Mcgraw RN - 09/03/2023 2:13 AM EST Problem: Pain & Impaired Comfort Goal: Patient's pain & discomfort is manageable. Outcome: Progressing Problem: Safety & Risk for Injury Goal: Patient will remain free from injury. Outcome: Progressing Problem: Daily Care & Potential Self-Care Deficit Goal: Patient's daily care needs are met. Outcome: Progressing Problem: Risk for Impaired Physical Mobility Goal: Patient will maintain optimal mobility level. Outcome: Progressing Problem: Knowledge Deficit Goal: Patient & caregiver will demonstrate understanding. Outcome: Progressing Problem: Discharge Barriers Goal: Patient's discharge needs are met. Outcome: Progressing Problem: Actual & Potential for Falls Goal: Patient will remain free of falls. Outcome: Progressing Clinical Goal(s): Pt will have adeqaute pain control overnight. (09/02/232020) Possible barriers to meeting goal(s)/advancing plan of care: Pt may have increased risk of pain, pthas pain related to stomach issues- see PMH. Pt also has pain R/T admission. Stability of the patient: Moderately stable - low risk of patient condition declining or worsening Summary regarding today's goal(s): Met: Pt met goal- able to sleep most of the night- pain management well; controlled on scheduled and PRN meds. Recommendations: Continue to assess pain Q1H, admin scheduled/prn meds for pain to cover any pain control needed. Continue to complete hourly rounding and pain scales. * Ancillary Progress Note - Bushra Estrada RRT - 09/02/2023 5:26 PM EST PATIENT DRIVEN PROTOCOL - Respiratory Care Services [facility] [address] Name: Edward Yoder Location: [facility] B641/B Date: 09/02/2023 Time: 5:26 PM Patient Driven Protocol Summary: Initial evaluation [...] 92%: 0 - Room Air Assessment Score: 2 Total Assessment Score: 2 Breath Sounds: Inspiratory and expiratory clear bilaterally.. Cough and Sputum: An effective cough produced no sputum... CXR: not performed. Vital Signs: Resp: 16 (09/02/23 1538) Pulse: 65 (09/02/23 1538) Temp: 36.6 C (97.8 F) (09/02/23 1538) BP: 126/82 (09/02/23 1538) SpO2: 97 % (09/02/23 1538) PFT: Minimal Predicted IC: 1.14 L. Inspiratory capacity: 2.5 L. Primary Service: Surgery Blue. Admitting Diagnosis: Abscess [L02.91] Intra-abdominal abscess (HCC) [K65.1] Pulmonary Diagnosis: none . * Care Plan - Nette Conley RN - 09/02/2023 4:46 PM EST Clinical Goal(s): pt will remain free from injury this shift (09/02/23 1600) Possible barriers to meeting goal(s)/advancing plan of care: weakness Stability of the patient: Moderately stable - low risk of patient condition declining or worsening Summary regarding today's goal(s): Met: yes Recommendations: assist with mobility documented in this encounter Plan of Treatment Upcoming Encounters Date Type Department Care Team (Late st Contact Info) Description 09/06/2023 1:45 PM EST Office Visit Hematology/Oncology [facility] [employer] [address] [place] [address] Cipriano Kuhn MD [address] [place] [address] 09/12/2023 11:20 AM EST Office Visit [facility] [address] [place] [id number] Thaddeus Solis MD [address] [place] [address] 09/23/2023 8:20 AM EST Office Visit General Surgery, [place] [address] [place] [address] Praveen Edmodns MD [address] [place] [address] Scheduled Procedures Name Priority Associated Diagnoses Date/Ti [...] encounter Medical Devices Implanted Type Area Utility Systems Repairer Operator Device Identifier Shelf Expiration Date Model / Serial / Lot Cement Hydroset Injectable 5cc - [id number] Implanted:Qty : 1 on 03/15/2018 by Ronak Khoury MD at OR [facility] Left: Head JOHN 11/09/2019 [id number] / / [id number] Stent Wallf Esoph [id number] - [id number] Implanted:Qty : 1 on 04/01/2023 by Karson Goddard MD at ENDOSCOPY [facility] N/A: Esophagus [employer] : ENDOSCOPY [id number] 09/09/2024 [id number] / / [id number] Power Port 8fr Sngl Lumen Plas - [id number] Implanted:Qty : 1 on 04/19/2023 by Thaddeus Brown DO at OR [facility] Right: Chest CR BARD : PERIPHERAL VASCULAR [id number] 06/14/2024 [id number] / / [id number] documented as of this encounter Procedures Procedure Name Priority Date/Time Associated Diagnosis Comments RETICULOCYTE PANEL Add-on 09/05/2023 7: 28 AM EST BASIC METABOLIC PANEL Routine 09/05/2023 7:28 AM EST FOLIC ACID Add-on 09/05/2023 7:28 AM EST IRON SCREEN, INCLUDING TIBC Add-on 09/05/2023 7:28 AM EST CBC Routine 09/05/2023 7:28 AM EST FERRITIN Add-on 09/05/2023 7:28 AM EST VITAMIN B12 Add-on 09/05/2023 7:28 AM EST BASIC METABOLIC PANEL Routine 09/04/2023 8:49 AM EST CBC Routine 09/04/2023 8:49 AM EST BASIC METABOLIC PANEL Routine 09/03/2023 7:52 AM EST CBC Routine 09/03/2023 7:52 AM EST DIFFERENTIAL, AUTOMATED Routine 09/02/2023 4:54 PM EST BASIC METABOLIC PANEL Routine 09/02/2023 4:54 PM EST TYPE AND SCREEN Routine 09/02/2023 4:54 PM EST CBC Routine 09/02/2023 4:54 PM EST PHOSPHORUS Routine 09/02/2023 4:54 PM EST LACTATE STAT 09/02/2023 4:54 PM EST CALCIUM, IONIZED STAT 09/02/2023 4:54 PM EST CBC Routine 09/02/2023 4:54 PM EST MAGNESIUM Routine 09/02/2023 4:54 PM EST RADIOLOGY EXAM - CT (IMAGES ONLY, NO REPORT) Routine 09/02/2023 4:40 PM EST documented in this encounter Results * (ABNORMAL) IRON SCREEN, INCLUDING TIBC (09/05/2023 7:28 AM EST) Iron 50 45 - 176 ug/dL 09/05/2023 8:42 AM EST [facility] Iron Binding Capacity 190(L) 250 - 425 ug/dL 09/05/2023 8:42 AM EST [facility] Transferrin Saturation Percent 26 15 - 55 % 09/05/2023 8:42 AM EST [facility] Blood Venous blood specimen / Unknown Venipuncture / Unknown 09/05/2023 7:28 AM EST 09/05/2023 8:02 AM EST Mark Leong MD LAB BLOOD NICOLASA MABRY [facility] [address] [place] [address] * FERRITIN (09/05/2023 7:28 AM EST) Ferritin 351 30 - 400 ng/mL 09/05/2023 1:15 PM EST [facility] Blood Venous blood specimen / Unknown Venipuncture / Unknown 09/05/2023 7:28 AM EST 09/05/2023 8:02 AM EST Mark Leong MD LAB BLOOD NICOLASA MABRY Performing Organization Address [facility]/ZIP Co de Phone Number [facility] [address] [place] [address] * VITAMIN B12 (09/05/2023 7:28 AM EST) Vitamin B12 709 232 - 1,245 pg/mL 09/05/2023 1:15 PM EST [facility] Blood Venous blood specimen / Unknown Venipuncture / Unknown 09/05/2023 7:28 AM EST 09/05/2023 8:02 AM EST Mark Leong MD LAB BLOOD ORDRegulo MABRY Performing Organization Address City/[facility]/ZIP Co de Phone Number LABORATORY C [address] [place] [address] * FOLIC ACID (09/05/2023 7:28 AM EST) Folic Acid 15.0 >4.5 ng/mL 09/05/2023 1:15 PM EST [facility] Blood Venous blood specimen / Unknown Venipuncture / Unknown 09/05/2023 7:28 AM EST 09/05/2023 8:02 AM EST Mark Leong MD LAB BLOOD ORDE CLOTILDE Performing Organization Address City/[facility]/ZIP Co de Phone Number [facility] [address] [place] [address] * RETICULOCYTE PANEL (09/05/2023 7:28 AM EST) Reticulocyte Percent 1.00 0.80 - 1.90 % 09/05/2023 8:34 AM EST [facility] Absolute Reticulocyte 33.1 31.3 - 100.1 K/uL 09/05/2023 8:34 AM EST [facility] Immature Reticuloctye Fraction 2.8 2.5 - 20.6 % 09/05/2023 8:34 AM EST [facility] Reticulocyte Hemoglobin 33.5 29.7 - 37.4 pg 09/05/2023 8:34 AM EST [facility] Blood Venous blood specimen / Unknown Venipuncture / Unknown 09/05/2023 7:28 AM EST 09/05/2023 8:02 AM EST Mark Leong MD LAB BLOOD NICOLASA MABRY [facility] Organization Address City/State/ZIP Co de Phone Number [facility] [facility] [address] [place] [address] * (ABNORMAL) BASIC METABOLIC PANEL (09/05/2023 7:28 AM EST) BUN 3(L) 6 - 20 mg/dL 09/05/2023 8:30 AM EST [facility] Creatinine 0.7 0.6 - 1.2 mg/dL 09/05/2023 8:30 AM EST [facility] Estimated Glomerular Filtration Rate >90 >=60 mL/min 09/05/2023 8:30 AM EST [facility] Comment:eGFR is calculated b ased on the CKD-EPI 2020 equation Sodium 140 135 - 146 mmol/L 09/05/2023 8:30 AM EST [facility] Potassium 3.4(L) 3.5 - 5.1 mmol/L 09/05/2023 8:30 AM EST [facility] Chloride 105 98 - 107 mmol/L 09/05/2023 8:30 AM EST [facility] CO2 23 22 - 32 mmol/L 09/05/2023 8:30 AM EST [facility] Anion Gap 12 7 - 15 mmol/L 09/05/2023 8:30 AM EST [facility] Glucose 130(H) 70 - 120 mg/dL 09/05/2023 8:30 AM EST [facility] Calcium 8.6 8.4 - 10.2 mg/dL 09/05/2023 8:30 AM EST [facility] Blood Venous blood specimen / Unknown Venipuncture / Unknown 09/05/2023 7:28 AM EST 09/05/2023 8:02 AM EST Leia Denny MD LAB BLOOD OR DERABLES Performing Organization Address City/State/[facility] Co de Phone Number [facility] [address] [place] [address] * (ABNORMAL) CBC (09/05/2023 7:28 AM EST) WBC 3.83(L) 4.00 - 10.80 K/uL 09/05/2023 8:10 AM EST [facility] RBC 3.26 4.50 - 5.25 M/uL 09/05/2023 8:10 AM EST [facility] HGB 9.4(L) 14.0 - 16.8 g/dL 09/05/2023 8:10 AM EST [facility] HCT 29.9(L) 40.0 - 48.4 % 09/05/2023 8:10 AM EST [facility] MCV 91.7 82.0 - 99.5 fL 09/05/2023 8:10 AM EST [facility] MCH 28.8 27.0 - 34.0 pg 09/05/2023 8:10 AM EST [facility] MCHC 31.4 32.0 - 36.0 g/dL 09/05/2023 8:10 AM EST [facility] RDW 15.3 11.5 - 15.5 % 09/05/2023 8:10 AM EST [facility] PLT 330 140 - 400 K/uL 09/05/2023 8:10 AM EST [facility] MPV 9.4 6.6 - 11.1 fL 09/05/2023 8:10 AM EST [facility] nRBCs 0 <=0 /100 WBCs 09/05/2023 8:10 AM EST [facility] Blood Venous blood specimen / Unknown Venipuncture / Unknown 09/05/2023 7:28 AM EST 09/05/2023 8:02 AM EST Leia Denny MD LAB BLOOD OR DERABLES [facility] [address] [place] [address] * BASIC METABOLIC PANEL (09/04/2023 8:49 AM EST) BUN 6 6 - 20 mg/dL 09/04/2023 9:41 AM EST [facility] Creatinine 0.7 0.6 - 1.2 mg/dL 09/04/2023 9:41 AM EST [facility] Estimated Glomerular Filtration Rate >90 >=60 mL/min 09/04/2023 9:41 AM EST [facility] Comment:eGFR is calculated b ased on the CKD-EPI 2020 equation Sodium 136 135 - 146 mmol/L 09/04/2023 9:41 AM EST [facility] Potassium 3.6 3.5 - 5.1 mmol/L 09/04/2023 9:41 AM EST [facility] Chloride 101 98 - 107 mmol/L 09/04/2023 9:41 AM EST [facility] CO2 24 22 - 32 mmol/L 09/04/2023 9:41 AM EST [facility] Anion Gap 11 7 - 15 mmol/L 09/04/2023 9:41 AM EST [facility] Glucose 120 70 - 120 mg/dL 09/04/2023 9:41 AM EST [facility] Calcium 8.6 8.4 - 10.2 mg/dL 09/04/2023 9:41 AM EST [facility] Blood Venous blood specimen / Unknown Venipuncture / Unknown 09/04/2023 8:49 AM EST 09/04/2023 8:57 AM EST Leia Denny MD LAB BLOOD OR DERABLES [facility] [address] [place] [address] * (ABNORMAL) CBC (09/04/2023 8:49 AM EST) WBC 4.06 4.00 - 10.80 K/uL 09/04/2023 9:10 AM EST [facility] RBC 3.43 4.50 - 5.25 M/uL 09/04/2023 9:10 AM EST [facility] HGB 9.9(L) 14.0 - 16.8 g/dL 09/04/2023 9:10 AM EST [facility] HCT 31.1(L) 40.0 - 48.4 % 09/04/2023 9:10 AM EST [facility] MCV 90.7 82.0 - 99.5 fL 09/04/2023 9:10 AM EST [facility] MCH 28.9 27.0 - 34.0 pg 09/04/2023 9:10 AM EST [facility] MCHC 31.8 32.0 - 36.0 g/dL 09/04/2023 9:10 AM EST [facility] RDW 15.0 11.5 - 15.5 % 09/04/2023 9:10 AM EST [facility] PLT 350 140 - 400 K/uL 09/04/2023 9:10 AM EST [facility] MPV 9.1 6.6 - 11.1 fL 09/04/2023 9:10 AM EST [facility] nRBCs 0 <=0 /100 WBCs 09/04/2023 9:10 AM EST [facility] Blood Venous blood specimen / Unknown Venipuncture / Unknown 09/04/2023 8:49 AM EST 09/04/2023 8:57 AM EST Leia Denny MD LAB BLOOD OR DERABLES Performing Organization Address City/State/[facility] Co de Phone Number [facility] [address] [place] [address] * BASIC METABOLIC PANEL (09/03/2023 7:52 AM EST) Pathologist [facility] BUN 6 6 - 20 mg/dL 09/03/2023 8:59 AM EST [facility] Creatinine 0.9 0.6 - 1.2 mg/dL 09/03/2023 8:59 AM EST [facility] Estimated Glomerular Filtration Rate >90 >=60 mL/min 09/03/2023 8:59 AM EST [facility] Comment:eGFR is calculated b ased on the CKD-EPI 2020 equation Sodium 135 135 - 146 mmol/L 09/03/2023 8:59 AM EST [facility] Potassium 4.0 3.5 - 5.1 mmol/L 09/03/2023 8:59 AM EST [facility] Chloride 100 98 - 107 mmol/L 09/03/2023 8:59 AM EST [facility] CO2 22 22 - 32 mmol/L 09/03/2023 8:59 AM EST [facility] Anion Gap 13 7 - 15 mmol/L 09/03/2023 8:59 AM EST [facility] Glucose 100 70 - 120 mg/dL 09/03/2023 8:59 AM EST [facility] Calcium 8.8 8.4 - 10.2 mg/dL 09/03/2023 8:59 AM EST [facility] Blood Venous blood specimen / Unknown Venipuncture / Unknown 09/03/2023 7:52 AM EST 09/03/2023 8:25 AM EST Leia Denny MD LAB BLOOD OR DERABLES [facility] [address] [place] [address] * (ABNORMAL) CBC (09/03/2023 7:52 AM EST) WBC 3.88(L) 4.00 - 10.80 K/uL 09/03/2023 8:35 AM EST [facility] RBC 3.46 4.50 - 5.25 M/uL 09/03/2023 8:35 AM EST [facility] HGB 10.2(L) 14.0 - 16.8 g/dL 09/03/2023 8:35 AM EST [facility] HCT 30.8(L) 40.0 - 48.4 % 09/03/2023 8:35 AM EST [facility] MCV 89.0 82.0 - 99.5 fL 09/03/2023 8:35 AM EST [facility] MCH 29.5 27.0 - 34.0 pg 09/03/2023 8:35 AM EST [facility] MCHC 33.1 32.0 - 36.0 g/dL 09/03/2023 8:35 AM EST [facility] RDW 15.2 11.5 - 15.5 % 09/03/2023 8:35 AM EST [facility] PLT 352 140 - 400 K/uL 09/03/2023 8:35 AM EST [facility] MPV 9.6 6.6 - 11.1 fL 09/03/2023 8:35 AM EST [facility] nRBCs 0 <=0 /100 WBCs 09/03/2023 8:35 AM EST [facility] Blood Venous blood specimen / Unknown Venipuncture / Unknown 09/03/2023 7:52 AM EST 09/03/2023 8:25 AM EST Leia Denny MD LAB BLOOD OR DERABLES [facility] [address] [place] [address] * DIFFERENTIAL, AUTOMATED (09/02/2023 4:54 PM EST) WBC 4.25 4.00 - 10.80 K/uL 09/02/2023 5:14 PM EST [facility] Neutrophils % 51.7 40.0 - 75.0 % 09/02/2023 5:14 PM EST [facility] Lymphocytes % 37.4 18.0 - 42.0 % 09/02/2023 5:14 PM EST [facility] Monocytes % 9.2 1.0 - 11.0 % 09/02/2023 5:14 PM EST [facility] Eosinophils % 0.5 0.0 - 6.0 % 09/02/2023 5:14 PM EST [facility] Basophils % 0.7 0.0 - 2.0 % 09/02/2023 5:14 PM EST [facility] Immature Granulocytes % 0.5 0.0 - 2.0 % 09/02/2023 5:14 PM EST [facility] Absolute Neutrophils 2.20 1.80 - 7.70 K/uL 09/02/2023 5:14 PM EST [facility] Absolute Lymphocytes 1.59 1.00 - 4.80 K/ul 09/02/2023 5:14 PM EST [facility] Absolute Monocytes 0.39 0.00 - 1.10 K/uL 09/02/2023 5:14 PM EST [facility] Absolute Eosinophils 0.02 0.00 - 0.70 K/uL 09/02/2023 5:14 PM EST [facility] Absolute Basophils 0.03 0.00 - 0.20 K/uL 09/02/2023 5:14 PM EST [facility] Absolute Immature Granulocytes 0.02 0.00 - 0.20 K/uL 09/02/2023 5:14 PM EST [facility] Blood Venous blood specimen / Unknown Venipuncture / Unknown 09/02/2023 4:54 PM EST 09/02/2023 5:01 PM EST Leia Denny MD LAB BLOOD OR DERABLES [facility] [address], [place] [id number] * (ABNORMAL) CBC (09/02/2023 4:54 PM EST) WBC 4.25 4.00 - 10.80 K/uL 09/02/2023 5:14 PM EST [facility] RBC 3.55 4.50 - 5.25 M/uL 09/02/2023 5:14 PM EST [facility] HGB 10.4(L) 14.0 - 16.8 g/dL 09/02/2023 5:14 PM EST [facility] HCT 31.7(L) 40.0 - 48.4 % 09/02/2023 5:14 PM EST [facility] MCV 89.3 82.0 - 99.5 fL 09/02/2023 5:14 PM EST [facility] MCH 29.3 27.0 - 34.0 pg 09/02/2023 5:14 PM EST [facility] MCHC 32.8 32.0 - 36.0 g/dL 09/02/2023 5:14 PM EST [facility] RDW 15.3 11.5 - 15.5 % 09/02/2023 5:14 PM EST [facility] PLT 365 140 - 400 K/uL 09/02/2023 5:14 PM EST [facility] MPV 9.3 6.6 - 11.1 fL 09/02/2023 5:14 PM EST [facility] nRBCs 0 <=0 /100 WBCs 09/02/2023 5:14 PM EST [facility] Blood Venous blood specimen / Unknown Venipuncture / Unknown 09/02/2023 4:54 PM EST 09/02/2023 5:01 PM EST Leia Denny MD LAB BLOOD OR DERABLES [facility] [address] [place] [address] * (ABNORMAL) BASIC METABOLIC PANEL (09/02/2023 4:54 PM EST) BUN 4(L) 6 - 20 mg/dL 09/02/2023 5:28 PM EST [facility] Creatinine 0.7 0.6 - 1.2 mg/dL 09/02/2023 5:28 PM EST [facility] Estimated Glomerular Filtration Rate >90 >=60 mL/min 09/02/2023 5:28 PM EST [facility] Comment:eGFR is calculated b ased on the CKD-EPI 2020 equation Sodium 139 135 - 146 mmol/L 09/02/2023 5:28 PM EST [facility] Potassium 4.0 3.5 - 5.1 mmol/L 09/02/2023 5:28 PM EST [facility] Chloride 103 98 - 107 mmol/L 09/02/2023 5:28 PM EST [facility] CO2 23 22 - 32 mmol/L 09/02/2023 5:28 PM EST [facility] Anion Gap 13 7 - 15 mmol/L 09/02/2023 5:28 PM EST [facility] Glucose 88 70 - 120 mg/dL 09/02/2023 5:28 PM EST [facility] Calcium 9.1 8.4 - 10.2 mg/dL 09/02/2023 5:28 PM EST [facility] Blood Venous blood specimen / Unknown Venipuncture / Unknown 09/02/2023 4:54 PM EST 09/02/2023 5:01 PM EST Leia Denny MD LAB BLOOD OR DERABLES Performing Organization Address [facility] de Phone Number LABORATORY [facility] [address] [place] [address] * CALCIUM, IONIZED (09/02/2023 4:54 PM EST) Pathologist [facility] Calcium, Ionized 1.28 1.13 - 1.32 mmol/L 09/02/2023 5:14 PM EST LABORATORY [facility] Comment:This test was develo ped and its performance characteristics dtermined by [employer]. It has not been cleared or approved by the [place] Food and Drug Administration Blood Venous blood specimen / Unknown Venipuncture / Unknown 09/02/2023 4:54 PM EST 09/02/2023 5:01 PM EST Leia Denny MD LAB BLOOD OR DERABLES Performing Organization Address [facility] Phone Number LABORATORY [facility] [address] [place] [address] * LACTATE (09/02/2023 4:54 PM EST) [facility] Lactate 0.9 0.4 - 2.0 mmol/L 09/02/2023 5:30 PM EST LABORATORY [facility] Blood Venous blood specimen / Unknown Venipuncture / Unknown 09/02/2023 4:54 PM EST 09/02/2023 5:01 PM EST Leia Denny MD LAB BLOOD OR DERABLES Performing Organization Address [facility] de Phone Number LABORATORY [facility] [address] [place] [address] * TYPE AND SCREEN (09/02/2023 4:54 PM EST) Pathologist [facility] ABO A 09/02/2023 5:52 PM EST LABORATORY [facility] BLOOD BANK Rh Positive 09/02/2023 5:52 PM EST LABORATORY [facility] BLOOD BANK Red Blood Cell Antibody Screen Negative 09/02/2023 5:52 PM EST LABORATORY [facility] BLOOD BANK Specimen Expiration Date 09/05/2023 23:59 09/02/2023 5:52 PM EST LABORATORY [facility] BLOOD BANK Blood Venous blood specimen / Unknown Venipuncture / Unknown 09/02/2023 4:54 PM EST 09/02/2023 5:01 PM EST Leia Denny MD LAB BLOOD BA NK TEST ORDERABLES Performing Organization Address City/[facility] Co de Phone Number LABORATORY [facility] BLOOD BANK [address] [place] [address] * PHOSPHORUS (09/02/2023 4:54 PM EST) Phosphorus 3.8 2.5 - 4.8 mg/dL 09/02/2023 5:28 PM EST LABORATORY [facility] Blood Venous blood specimen / Unknown Venipuncture / Unknown 09/02/2023 4:54 PM EST 09/02/2023 5:01 PM EST Leia Denny MD LAB BLOOD OR DERABLES Performing Organization Address [facility] Co de Phone Number LABORATORY [place] [address] [place] [address] * MAGNESIUM (09/02/2023 4:54 PM EST) Magnesium 1.8 1.5 - 2.6 mg/dL 09/02/2023 5:28 PM EST LABORATORY [facility] Blood Venous blood specimen / Unknown Venipuncture / Unknown 09/02/2023 4:54 PM EST 09/02/2023 5:01 PM EST Leia Denny MD LAB BLOOD OR DERABLES Performing Organization Address City/[facility] de Phone Number LABORATORY [facility] [address] [place] [address] * RADIOLOGY EXAM - CT (IMAGES ONLY, NO REPORT) (09/02/2023 4:40 PM EST) Narrative Scheduling, Silent - 09/02/2023 4:40 PM EST This is an imaging study not interpreted or resulted by a [facility] or [facility] contracted radiologist. Homer Herron DO RAD CT documented in this encounter Visit Diagnoses Diagnosis Postprocedural intraabdominal abscess- Primary Intra-abdominal abscess (HCC) Peritoneal abscess Dehydration documented in this encounter Administered Medications Inactive Administered Medications - up to 3 most recent administrations Medication Order MAR Action Action Date Dose Rate Site Acetaminophen (Tylenol) 160 MG/5ML oral liquid 975 mg 975 mg, Oral, Q6H, First dose on 09/04/23 at 0000, Until Discontinued, Maximum or 4 grams (4000mg) per day. Given 09/05/2023 5:38 AM EST 975 mg Given 09/04/2023 11:33 PM EST 975 mg Given 09/04/2023 5:49 PM EST 975 mg Acetaminophen (Tylenol) tab 975 mg 975 mg, Oral, Q6H, First dose on Tue09/02/23 at 1800, Last dose on Tue09/07/23 at 1200, For 5 days, Maximum 4 g acetaminophen/day. Avoid in patients with severe hepatic impairment or severe active liver disease. Use for 5 days., Post-op Given 09/03/2023 2:02 PM EST 975 mg Given 09/03/2023 7:35 AM EST 975 mg Given 09/03/2023 12:05 AM EST 975 mg amoxicillin-clavulanate (Augmentin) tab 875 mg 875 mg, Oral, Q12H, First dose on Tue09/05/23 at 0900, Last dose on Tue09/15/23 at 2100, For 11 days Given 09/05/2023 8:37 AM EST 875 mg Aprepitant (Emend) cap 40 mg 40 mg, Oral, ONCE, On 09/04/23 at 0800, For 1 dose Given 09/04/2023 10:07 AM EST 40 mg Enoxaparin (Lovenox) inj 40 mg 40 mg, Subcutaneous, Daily(AM), First dose on 09/03/23 at 0900, Until Discontinued, If patient is on warfarin, inform provider if daily INR value is 2 or greater!, Post-op Given 09/05/2023 8:37 AM EST 40 mg Abdomen Right Lower Given 09/04/2023 10:07 AM EST 40 mg A bdomen Left Lower Given 09/03/2023 8:01 AM EST 40 mg Ab domen Left Lower isolyte-S pH 7.4 infusion Intravenous, at 100 mL/hr, Plasma-LYTE 148, isolyte-S, and isolyte-S pH 7.4 are considered equivalent - including for MAR barcode scanning., CONTINUOUS, Starting on Tue09/02/23 at 1645, Until Tue09/05/23 at 0618, Post-op New Bag 09/05/2023 12:44 AM EST 1 00 mL/hr New Bag 09/04/2023 2:58 PM EST 100 mL/hr New Bag 09/04/2023 3:44 AM EST 100 mL/hr melatonin tab 3 mg 3 mg, Oral, HS PRN Sleep, Starting on Tue09/02/23 at 1606, Until Tue09/05/23 at 1842, Post-op ondansetron (Zofran) inj 4 mg 4 mg, IV Push, Q6H PRN Other, May use for nausea or vomiting if patient unable to take oral ondansetron, Starting on Tue09/02/23 at 1606, Until Tue09/05/23 at 1842, Post-op Given 09/05/2023 5:38 AM EST 4 m g ondansetron ODT (Zofran) tab 4 mg 4 mg, On Tongue, Q6H PRN Nausea, Vomiting, Starting on Tue09/02/23 at 1606, Until Tue09/05/23 at 1842, Post-op Given 09/03/2023 12:35 PM EST 4 mg oxyCODONE (Oxy IR) tab 10 mg 10 mg, Oral, Q4H PRN Pain, Severe, Starting on Tue09/02/23 at 1606, Until Tue09/05/23 at 0937, Hold for somnolence or respiratory rate less than 10, Post-op Given 09/04/2023 5:49 PM EST 10 mg Given 09/04/2023 12:00 PM EST 10 mg Given 09/04/2023 4:07 AM EST 10 mg oxyCODONE (Oxy IR) tab 5 mg 5 mg, Oral, Q4H PRN Pain, Moderate, Starting on Tue09/02/23 at 1606, Until Tue09/05/23 at 0937, Hold for somnolence or respiratory rate less than 10, Post-op Given 09/02/2023 8:29 PM EST 5 mg oxygen GAS Inhalation, OXYGEN, First dose on Tue09/02/23 at 1645, Until Discontinued, Device/Managed by: Low Flow Device, Goal SPO2 (%): 91-95, Starting Device: Nasal Cannula, Initial Flow Rate (LPM): 2, Lowest Support: Nasal Cannula: Flow 0-6 LPM. Titrate up/down by 1 LPM., Titration Interval: Q2 minutes and as needed., Notify Provider: For sudden DECREASE in resting SPO2 to less than 85% and when escalating delivery device., Wean patient off Oxygen when the oxygen saturation is greater than or equal to 93% Oxygen On 09/04/2023 4:00 PM EST Oxygen On 09/04/2023 8:00 AM EST Oxygen On 09/03/2023 4:00 PM EST Piperacillin-Tazobactam (Zosyn) 4.5 g in 100 mL NSS ivpb (FOUR hour infusion) IV Piggyback, 4.5 g, Q8HNOW, 14 doses, First dose (after last modification) on Tue09/02/23 at 2000, Last dose on Tue09/07/23 at 0400, Administer over 4 Hours, at 25 mL/hr New Bag 09/05/2023 3:13 AM EST 4.5 g 25 mL/hr New Bag 09/04/2023 8:31 PM EST 4.5 g 25 mL/hr Start Infusion 09/04/2023 11:59 AM EST 4.5 g 25 mL/hr Piperacillin-Tazobactam (Zosyn) 4.5 g in 100 mL NSS ivpb (HALF hour infusion) IV Piggyback, 4.5 g, ONCE, 1 dose, On Tue09/02/23 at 1645, Administer over 30 Minutes New Bag 09/02/2023 5:20 PM EST 4.5 g 200 mL/hr potassium chloride ER tab 40 mEq 40 mEq, Oral, ONCE, On Tue09/05/23 at 0915, For 1 dose, This med should NOT be Crushed or Chewed Given 09/05/2023 9:32 AM EST 40 mEq prochlorperazine (Compazine) inj 10 mg 10 mg, IV Push, Q6H PRN Nausea, Vomiting, Starting on Tue09/02/23 at 1700, Until Tue09/05/23 at 1842 Given 09/05/2023 12:44 AM EST 10 mg Given 09/04/2023 4:05 PM EST 10 mg Given 09/04/2023 3:43 AM EST 10 mg documented in this encounter Active and Recently Administered Medications Times are shown in EST. Scheduled Medication Order 09/03/2023 09/04/2023 09/05/2023 Acetaminophen (Tylenol) 160 MG/5ML oral liquid 975 mg 975 mg, Oral, Q6H, First dose on Tue09/04/23 at 0000, Until Discontinued, Maximum or 4 grams (4000mg) per day. 2309 (Given - Provider: Jose Mcgraw RN) 0629 (Given - Provider: Jose Mcgraw RN)1159 (Given - Provider: Nette Conley RN)1749 (Given - Provider: Nette Conley RN)2333 (Given - Provider: Jose Mcgraw RN) 0538 (Given - Provider: Jose Mcgraw RN)1200 (Not Given - Provider: Karen Packer RN - Reason: Parameter(s) Not Met) Acetaminophen (Tylenol) tab 975 mg (CANCELED) 975 mg, Oral, Q6H, First dose on Tue09/02/23 at 1800, Last dose on Tue09/07/23 at 1200, For 5 days, Maximum 4 g acetaminophen/day. Avoid in patients with severe hepatic impairment or severe active liver disease. Use for 5 days., Post-op 0005 (Given - Provider: Jose Mcgraw RN)0735 (Given - Provider: Nette Conley RN - Comment: pt wants tylenol now)1402 (Given - Provider: Nette Conley RN)1999 (Not Given - Provider: Jose Mcgraw RN - Reason: Refused-Notify Provider - Comment: pt does not want his tylenol- stating pills too hard to swallow- RN notified surgical team.) amoxicillin-clavulanat e (Augmentin) tab 875 mg 875 mg, Oral, Q12H, First dose on 09/05/23 at 0900, Last dose on [place] 09/15/23 at 2100, For 11 days 0837 (Given - Provider: Karen Packer, JANA) Aprepitant (Emend) cap 40 mg (COMPLETED) 40 mg, Oral, ONCE, On 09/04/23 at 0800, For 1 dose 1007 (Given - Provider: Nette Conley RN) Enoxaparin (Lovenox) inj 40 mg 40 mg, Subcutaneous, Daily(AM), First dose on 09/03/23 at 0900, Until Discontinued, If patient is on warfarin, inform provider if daily INR value is 2 or greater!, Post-op 08 (Given - Provider: Nette Conley RN) 1006 (Given - Provider: Nette Conley RN) 0837 (Given - Provider: Karen Packer RN) oxygen GAS Inhalation, OXYGEN, First dose on 09/02/23 at 1645, Until Discontinued, Device/Managed by: Low Flow Device, Goal SPO2 (%): 91-95, Starting Device: Nasal Cannula, Initial Flow Rate (LPM): 2, Lowest Support: Nasal Cannula: Flow 0-6 LPM. Titrate up/down by 1 LPM., Titration Interval: Q2 minutes and as needed., Notify Provider: For sudden DECREASE in resting SPO2 to less than 85% and when escalating delivery device., Wean patient off Oxygen when the oxygen saturation is greater than or equal to 93% 0000 (Oxygen Off - Provider: Jose Mcgraw RN)0700 (Oxygen Off - Provider: Jose Mcgraw RN)1600 (Oxygen On - Provider: Nette Conley RN) 0000 (Oxygen Off - Provider: Jose Mcgraw RN)0800 (Oxygen On - Provider: Nette Conley RN)1600 (Oxygen On - Provider: Nette Conley RN) 0000 (Oxygen Off - Provider: Jose Mcgraw RN)0800 (Oxygen Off - Provider: Karen Packer RN) Piperacillin-Tazobacta m (Zosyn) 4.5 g in 100 mL NSS ivpb (FOUR hour infusion) (CANCELED) IV Piggyback, 4.5 g, Q8HNOW, 14 doses, First dose (after last modification) on Tue09/02/23 at 2000, Last dose on Tue09/07/23 at 0400, Administer over 4 Hours, at 25 mL/hr 0321 (New Bag - Provider: Jose Mcgraw RN)1237 (Start Infusion - Provider: Nette Conley RN)1637 (Finish Infusion - Provider: Nette Conley RN)1946 (New Bag - Provider: Jose Mcgraw RN) 0343 (New Bag - Provider: Jose Mcgraw RN)1159 (Start Infusion - Provider: Nette Conley RN)1559 (Finish Infusion - Provider: Nette Conley RN)203 (New Bag - Provider: Jose Mcgraw RN) 0313 (New Bag - Provider: Jose Mcgraw RN) potassium chloride ER tab 40 mEq (COMPLETED) 40 mEq, Oral, ONCE, On Tue09/05/23 at 0915, For 1 dose, This med should NOT be Crushed or Chewed 0932 (Given - Provider: Karen Packer RN) Continuous Medication Order 09/03/2023 09/04/2023 09/05/2023 isolyte-S pH 7.4 infusion (CANCELED) Intravenous, at 100 mL/hr, Plasma-LYTE 148, isolyte-S, and isolyte-S pH 7.4 are considered equivalent - including for MAR barcode scanning., CONTINUOUS, Starting on Tue09/02/23 at 1645, Until Tue09/05/23 at 0618, Post-op 1237 (New Bag - Provider: Nette Conley RN)1946 (New Bag - Provider: Jose Mcgraw RN) 0344 (New Bag - Provider: Jose Mcgraw, JANA)1458 (New Bag - Provider: Nette Conley RN) 0044 (New Bag - Provider: Jose Mcgraw RN) PRN Medication Order 09/03/2023 09/04/2023 09/05/2023 melatonin tab 3 mg 3 mg, Oral, HS PRN Sleep, Starting on Tue09/02/23 at 1606, Until Tue09/05/23 at 1842, Post-op morphine Sulfate CONCentrated 20 mg/ml oral soln 5 mg 5 mg, Oral, Q4H PRN Pain, Moderate, Pain, Severe, Starting on Tue09/05/23 at 0937, Until Tue09/05/23 at 1842, Note concentration Prior to Administration! ondansetron (Zofran) inj 4 mg(Linked Group 1) 4 mg, IV Push, Q6H PRN Other, May use for nausea or vomiting if patient unable to take oral ondansetron, Starting on Tue09/02/23 at 1606, Until Tue09/05/23 at 1842, Post-op 1235 (See Alternative - Provider: Nette Conley RN) 0538 (Given - Provider: Jose Mcgraw RN) ondansetron ODT (Zofran) tab 4 mg(Linked Group 1) 4 mg, On Tongue, Q6H PRN Nausea, Vomiting, Starting on Tue09/02/23 at 1606, Until Tue09/05/23 at 1842, Post-op 1235 (Given - Provider: Nette Conley RN) 0538 (See Alternative - Provider: Jose Mcgraw RN) oxyCODONE (Oxy IR) tab 10 mg (CANCELED) 10 mg, Oral, Q4H PRN Pain, Severe, Starting on Tue09/02/23 at 1606, Until Tue09/05/23 at 0937, Hold for somnolence or respiratory rate less than 10, Post-op 0735 (Given - Provider: Nette Conley RN)1646 (Given - Provider: Nette Conley RN) 0407 (Given - Provider: Jose Mcgraw RN)1200 (Given - Provider: Nette Conley RN)1749 (Given - Provider: Nette Conley RN) prochlorperazine (Compazine) inj 10 mg 10 mg, IV Push, Q6H PRN Nausea, Vomiting, Starting on Tue09/02/23 at 1700, Until Tue09/05/23 at 1842 1653 (Given - Provider: Nette Conley RN) 0343 (Given - Provider: Jose Mcgraw RN)1605 (Given - Provider: Nette Conley RN) 0044 (Given - Provider: Jose Mcgraw JANA) Linked Groups Order Group 1: ondansetron ODT (Zofran) tab 4 mgJump to med 4 mg, On Tongue, Q6H PRN Nausea, Vomiting, Starting on 09/02/23 at 1606, Until 09/05/23 at 1842, Post-op Or ondansetron (Zofran) inj 4 mgJump to med 4 mg, IV Push, Q6H PRN Other, May use for nausea or vomiting if patient unable to take oral ondansetron, Starting on Tue09/02/23 at 1606, Until 09/05/23 at 1842, Post-op documented in this encounter Advance Directives Latest [...] patient have Health Care Power of Chief Analytics Officer? No Full Code 03/15/2018 8:20 AM 03/16/2018 2:36 PM This or enrique reflects the patients wishes and were consensually agreed upon. Question Answer Comments Discussion of Advance Directives occurred with: Patient Does the patient have a Living Will? No Does the patient have Health Care Power of Chief Analytics Officer? No
--- OUTSIDE RECORDS SUMMARY | 2023-10-04 12:16 | External Medical Summary | Summary of Care ---
Author Name Unknown Organization [facility] Address [address] [place] [address] Phone [phone] Care Team Providers Care Environmental Systems Coordinator Name Role Phone Unavailable Primary Care Provider Unavailabl e Reason for Visit * Reason Onset Date Comments Advice 08/29/2023 Encounter Details Date Type Department Care Team (Late st Contact Info) Description 08/29/2023 Telephone General Surgery, [place] [address] [place] [address] Praveen Edmonds MD [address] [place] [address] Advice Allergies Active Allergy Reactions Criticality Noted Date Comments Carbamazepine Rash Medium 02/20/2018 documented as of this encounter (statuses as of 09/07/2023) Medications Medication Sig Dispensed Refills Start Date [...] as of this encounter (statuses as of 09/07/2023) Active Problems Problem Noted Date Diagnosed Date [...] as of this encounter (statuses as of 09/07/2023) Immunizations Name Administration Dates Next Due TDAP [...] Telephone Encounter - Livier Hong RN - 08/29/2023 10:13 AM EST Also reference prior encounters (telephone and patient messages) Call to patient. For concerns with constipation, patient identified by name and date of . Patient states he took something (he thinks Miralax) and coffee and had a bowel movement. Has no appetite. +nausea +dry heaves -vomiting Recommended stool softener while using morphine. He states he doesn't need it much. No appetite. Diet is full liquids/soft foods. Feels he has lost weight but doesn't know how much. Encouraged to use protein supplements. If not tolerating whey protein, can try the "clear" protein drinks or plant protein drinks. Or collagen powder supplement to food. Does not have nutrition referral outpatient, but patient has concerns about travelling to appointments. Reviewed that it takes a decent amount of time to adjust after surgery and to try not to be discouraged. Patient states he will try. Confirmed telemed appt 08/[address] Edmonds. Patient gave permission to also speak to about his care. Call to Latonia. Patient identified by name and date of . Latonia very concerned. Patient depressed and tells her he can see himself dying in the mirror. She has reached out to PCP for possible anti-depressants. He won't leave house. She sees him wasting away and feels he is starving. Reviewed that weight loss is common and so is minimal intake. Encourage fluids and protein intake is important. It will be months before his nutrition stabilizes to a "normal". Latonia asking about a feeding tube. This can be discussed with Dr Edmonds during their appointment, but patient has to be open to discussion. Latonia is wondering if they did not have realistic expectations after surgery. Will send Latonia some information from [facility] on diet and nutrition after gastrectomy. Aware to reach out with any other concerns. documented in this encounter Plan of Treatment Upcoming Encounters Date Type Department Care Team (Late st Contact Info) Description 09/12/2023 11:20 AM EST Office Visit [facility] [address] [place] [id number] Thaddeus Solis MD [address] [place] [address] 09/23/2023 8:20 AM EST Office [facility] [address], [place] [id number] Praveen Edmonds MD [address], [place] [phone] Scheduled Procedures Name Priority Associated Diagnoses Date/Ti [...] this encounter Medical Devices Implanted Type Area Meter Readers Supervisor Device Identifier Shelf Expiration Date Model / Serial / Lot Cement Hydroset Injectable 5cc - [id number] Implanted:Qty : 1 on 03/15/2018 by Ronak Khoury MD at OR [facility] Left: Head JOHN 11/09/2019 [id number] / / [id number] Stent Wallf Esoph [id number] - [id number] Implanted:Qty : 1 on 04/01/2023 by Karson Goddard MD at ENDOSCOPY [facility] N/A: Esophagus [employer] : ENDOSCOPY [id number] 09/09/2024 [id number] / / [id number] Power Port 8fr Sngl Lumen Plas - [id number] Implanted:Qty : 1 on 04/19/2023 by Thaddeus Brown DO at OR [facility] Right: Chest CR [employer] : PERIPHERAL VASCULAR [id number] 06/14/2024 [id number] / / [id number] documented as of this encounter Advance Directives [...] patient have Health Care Power of Supervisor Billposting? No Full Code 03/15/2018 8:20 AM 03/16/2018 2:36 PM This or enrique reflects the patients wishes and were consensually agreed upon. Question Answer Comments Discussion of Advance Directives occurred with: Patient Does the patient have a Living Will? No Does the patient have Health Care Power of Supervisor Billposting? No
--- OUTSIDE RECORDS SUMMARY | 2023-10-04 12:16 | External Medical Summary ---
Author Name Unknown Address Unknown Organization [id number]:LABORATORY [facility] [place] - [address] [facility] [address] Laboratory Report Ordering Provider Test Date Status DIETER MCINTOSH 09/05/2023 07:28:00 Final Observation Date Value Abnormality Reference (Units ) Status Folic Acid 09/05/2023 07:28:00 15.0 >4.5 (ng/ mL) Final Performing Location [facility] - [address] [facility] [address]
--- OUTSIDE RECORDS SUMMARY | 2023-10-04 12:17 | External Medical Summary ---
Author Name Unknown Address Unknown Organization [id number]:[place] [place] [address] [facility] [address] Laboratory Report Ordering Provider Test Date Status PAULO IQBAL 09/02/2023 16:54:00 Final Observation Date Value Abnormality Reference (Units ) Status BUN 09/02/2023 16:54:00 4 Below low normal 6-20 (mg/dL) Final Creatinine 09/02/2023 16:54:00 0.7 0.6-1.2 (mg/dL) Final Glomerular filtration rate/1.73 sq M.predicted [Volume Rate/Area] in Serum, Plasma or Blood by Creatinine-based formula (CKD-EPI) 09/02/2023 16:54:00 >90 >=60 (mL/min) Final eGFR is calculated based on the CKD-EPI 2020 equation SODIUM 09/02/2023 16:54:00 139 135-146 (m mol/L) Final Potassium 09/02/2023 16:54:00 4.0 3.5-5.1 (m mol/L) Final Cl 09/02/2023 16:54:00 103 98-107 (mm ol/L) Final CO2 09/02/2023 16:54:00 23 22-32 (mmo l/L) Final Anion gap 09/02/2023 16:54:00 13 7-15 (mmol /L) Final Glucose 09/02/2023 16:54:00 88 70-120 (mg /dL) Final Calcium 09/02/2023 16:54:00 9.1 8.4-10.2 ( mg/dL) Final Performing Location [facility] [place] [address] [facility] [address]
--- OUTSIDE RECORDS SUMMARY | 2023-10-04 12:17 | External Medical Summary ---
Author Name Unknown Address Unknown Organization K01:LABORATORY [facility] - [facility] [address] [facility] [address] Laboratory Report Ordering Provider Test Date Status PAULO IQBAL 09/02/2023 16:54:00 Final Observation Date Value Abnormality Reference (Units ) Status WBC, Total 09/02/2023 16:54:00 4.25 4.00-10.80 (K/uL) Final RBC 09/02/2023 16:54:00 3.55 4.50-5.25 (M/uL) Final Hemoglobin 09/02/2023 16:54:00 10.4 Below low normal 14.0-16.8 (g/dL) Final HCT 09/02/2023 16:54:00 31.7 Below low normal 40.0-48.4 (%) Final MCV 09/02/2023 16:54:00 89.3 82.0-99.5 (fL) Final MCH 09/02/2023 16:54:00 29.3 27.0-34.0 (pg) Final MCHC 09/02/2023 16:54:00 32.8 32.0-36.0 (g/dL) Final RDW 09/02/2023 16:54:00 15.3 11.5-15.5 (%) Final Platelets 09/02/2023 16:54:00 365 140-400 (K/uL) Final MPV 09/02/2023 16:54:00 9.3 6.6-11.1 (fL) Final Nucleated erythrocytes/100 leukocytes [Ratio] in Blood by Automated count 09/02/2023 16:54:00 0 <=0 (/100 WBCs) Final Performing Location LABORATORY [facility] - [address] [place] [address]
--- OUTSIDE RECORDS SUMMARY | 2023-10-04 12:17 | External Medical Summary ---
Author Name Unknown Address Unknown Organization K01:LABORATORY [facility] - [address] [place] [address] Laboratory Report Ordering Provider Test Date Status KELSEYMICHAELASHLEY DESAIRUBY 09/02/2023 16:54:00 Final Observation Date Value Abnormality Reference (Units ) Status Magnesium 09/02/2023 16:54:00 1.8 1.5-2.6 (m g/dL) Final Performing Location [facility] - [address] [facility] [address]
--- OUTSIDE RECORDS SUMMARY | 2023-10-04 12:17 | External Medical Summary ---
Author Name Unknown Address Unknown Organization K01:LABORATORY [place] [address] [facility] [address] Laboratory Report Ordering Provider Test Date Status PAULO IQBAL 09/02/2023 16:54:00 Final Observation Date Value Abnormality Reference (Units ) Status Calcium.ionized [Moles/volume] in Serum or Plasma by Ion-selective membrane electrode (ISE) 09/02/2023 16:54:00 1.28 1.13-1.32 (mmol/L) Final This test was developed and its performance characteristics dtermined by [email or web address]. It has not been cleared or approved by the [place] Food and Drug Administration Performing Location LABORATORY [place] [address] [facility] [address]
--- OUTSIDE RECORDS SUMMARY | 2023-10-04 12:17 | External Medical Summary ---
Author Name Unknown Address Unknown Organization K01:[facility] [place] [address] [facility] [address] Laboratory Report Ordering Provider Test Date Status PAULO IQBAL 09/02/2023 16:54:00 Final Observation Date Value Abnormality Reference (Units ) Status SYNC LEUKOCYTES IN BLOOD BY AUTOMATED COUNT 09/02/2023 16:54:00 4.25 4.00-10.80 (K/uL) Final Segs 09/02/2023 16:54:00 51.7 40.0-75.0 (%) Final Lymphs % 09/02/2023 16:54:00 37.4 18.0-42.0 (%) Final Monos 09/02/2023 16:54:00 9.2 1.0-11.0 (%) Final Eosinophils 09/02/2023 16:54:00 0.5 0.0-6.0 (%) Final Basos 09/02/2023 16:54:00 0.7 0.0-2.0 (%) Final Immature Granulocyte, Percent 09/02/2023 16:54:00 0.5 0.0-2.0 (%) Final Absolute Segs 09/02/2023 16:54:00 2.20 1.80-7.70 (K/uL) Final Lymphs, absolute 09/02/2023 16:54:00 1.59 1.00-4.80 (K/ul) Final Monos, Abs 09/02/2023 16:54:00 0.39 0.00-1.10 (K/uL) Final Eos, Abs 09/02/2023 16:54:00 0.02 0.00-0.70 (K/uL) Final Basos, Abs 09/02/2023 16:54:00 0.03 0.00-0.20 (K/uL) Final Immature Granulocytes, Number 09/02/2023 16:54:00 0.02 0.00-0.20 (K/uL) Final Performing Location [facility] [place] [address]
--- OUTSIDE RECORDS SUMMARY | 2023-10-04 12:17 | External Medical Summary ---
Author Name Unknown Address Unknown Organization K01:[facility] [place] [address] [place] [address] Laboratory Report Ordering Provider Test Date Status PAULO IQBAL 09/03/2023 07:52:00 Final Observation Date Value Abnormality Reference (Units ) Status BUN 09/03/2023 07:52:00 6 6-20 (mg/dL) Final Creatinine 09/03/2023 07:52:00 0.9 0.6-1.2 (mg/dL) Final Glomerular filtration rate/1.73 sq M.predicted [Volume Rate/Area] in Serum, Plasma or Blood by Creatinine-based formula (CKD-EPI) 09/03/2023 07:52:00 >90 >=60 (mL/min) Final eGFR is calculated based on the CKD-EPI 2020 equation SODIUM 09/03/2023 07:52:00 135 135-146 (m mol/L) Final Potassium 09/03/2023 07:52:00 4.0 3.5-5.1 (m mol/L) Final Cl 09/03/2023 07:52:00 100 98-107 (mm ol/L) Final CO2 09/03/2023 07:52:00 22 22-32 (mmo l/L) Final Anion gap 09/03/2023 07:52:00 13 7-15 (mmol /L) Final Glucose 09/03/2023 07:52:00 100 70-120 (mg /dL) Final Calcium 09/03/2023 07:52:00 8.8 8.4-10.2 ( mg/dL) Final Performing Location [facility] [place] [address] [facility] [address]
--- OUTSIDE RECORDS SUMMARY | 2023-10-04 12:17 | External Medical Summary ---
Author Name Unknown Address Unknown Organization K01:[facility]ATORY [facility] - [address] [place] [address] Laboratory Report Ordering Provider Test Date Status PAULO IQBAL 09/02/2023 16:54:00 Final Observation Date Value Abnormality Reference (Units ) Status ABO 09/02/2023 16:54:00 A Final RH 09/02/2023 16:54:00 Positive Final RED BLOOD CELL ANTIBODY SCREEN 09/02/2023 16:54:00 Negative Final SPECIMEN EXPIRATION DATE 09/02/2023 16:54:00 09/05/2023 23:59 Final Performing Location LABORATORY [facility] - [address] [place] [address]
--- OUTSIDE RECORDS SUMMARY | 2023-10-04 12:17 | External Medical Summary ---
Author Name Unknown Address Unknown Organization K01:LABORATORY [facility] [place] - [address] [place] [address] Laboratory Report Ordering Provider Test Date Status PAULO IQBAL 09/04/2023 08:49:00 Final Observation Date Value Abnormality Reference (Units ) Status BUN 09/04/2023 08:49:00 6 6-20 (mg/dL) Final Creatinine 09/04/2023 08:49:00 0.7 0.6-1.2 (mg/dL) Final Glomerular filtration rate/1.73 sq M.predicted [Volume Rate/Area] in Serum, Plasma or Blood by Creatinine-based formula (CKD-EPI) 09/04/2023 08:49:00 >90 >=60 (mL/min) Final eGFR is calculated based on the CKD-EPI 2020 equation SODIUM 09/04/2023 08:49:00 136 135-146 (m mol/L) Final Potassium 09/04/2023 08:49:00 3.6 3.5-5.1 (m mol/L) Final Cl 09/04/2023 08:49:00 101 98-107 (mm ol/L) Final CO2 09/04/2023 08:49:00 24 22-32 (mmo l/L) Final Anion gap 09/04/2023 08:49:00 11 7-15 (mmol /L) Final Glucose 09/04/2023 08:49:00 120 70-120 (mg /dL) Final Calcium 09/04/2023 08:49:00 8.6 8.4-10.2 ( mg/dL) Final Performing Location LABORATORY [facility] [place] - [address] [facility] [address]
--- OUTSIDE RECORDS SUMMARY | 2023-10-04 12:17 | External Medical Summary ---
Author Name Unknown Address Unknown Organization K01:LABORATORY [facility] [place] - [address] [place] [address] Laboratory Report Ordering Provider Test Date Status JAMAR IQBALRADAMES 09/02/2023 16:54:00 Final Observation Date Value Abnormality Reference (Units ) Status Lactic Acid 09/02/2023 16:54:00 0.9 0.4-2.0 (mmol/L) Final Performing Location LABORATORY [facility] - [address] [facility] [address]
--- OUTSIDE RECORDS SUMMARY | 2023-10-04 12:17 | External Medical Summary ---
Author Name Unknown Address Unknown Organization K01:[place] [place] [facility] [address] [facility] [address] Laboratory Report Ordering Provider Test Date Status PAULO IQBAL 09/03/2023 07:52:00 Final Observation Date Value Abnormality Reference (Units ) Status WBC, Total 09/03/2023 07:52:00 3.88 Below low normal 4.00-10.80 (K/uL) Final RBC 09/03/2023 07:52:00 3.46 4.50-5.25 (M/uL) Final Hemoglobin 09/03/2023 07:52:00 10.2 Below low normal 14.0-16.8 (g/dL) Final HCT 09/03/2023 07:52:00 30.8 Below low normal 40.0-48.4 (%) Final MCV 09/03/2023 07:52:00 89.0 82.0-99.5 (fL) Final MCH 09/03/2023 07:52:00 29.5 27.0-34.0 (pg) Final MCHC 09/03/2023 07:52:00 33.1 32.0-36.0 (g/dL) Final RDW 09/03/2023 07:52:00 15.2 11.5-15.5 (%) Final Platelets 09/03/2023 07:52:00 352 140-400 (K/uL) Final MPV 09/03/2023 07:52:00 9.6 6.6-11.1 (fL) Final Nucleated erythrocytes/100 leukocytes [Ratio] in Blood by Automated count 09/03/2023 07:52:00 0 <=0 (/100 WBCs) Final Performing Location [facility] [place] [address] [place] [address]
--- OUTSIDE RECORDS SUMMARY | 2023-10-04 12:17 | External Medical Summary ---
Author Name Unknown Address Unknown Organization K01:LABORATORY [facility] - [address] [facility] [place] [address] Laboratory Report Ordering Provider Test Date Status JAMAR IQBALRADAMES 09/02/2023 16:54:00 Final Observation Date Value Abnormality Reference (Units ) Status Phosphate 09/02/2023 16:54:00 3.8 2.5-4.8 (m g/dL) Final Performing Location [facility] [address] [facility] [address]
--- NOTE | 2023-10-04 13:34 | Gastrointestinal Consultation ---
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 Edmonds, recent admission for treatment of a 5 cm abscess near the EJ anastomosis, recent admission for nausea/vomiting with placement of NJ to aid in nutrition admitted to [facility] with nausea/vomiting and decreased appetite. There was question regarding the permanence of the NJ tube. If this was not meant to be temporary would defer to his surgeon regarding decision, timing, etc of J tube placement. Regarding his nausea/vomiting, recommend scheduled anti emetics. He suggests that Emend has worked best but he is in the process of undergoing insurance approval as an OP for this. While admitted, recommend a trial of Emend. He was agreeable to a trial of Phenergan suppository if Emend was not approved by insurance. May continue dietary plan per his surgeons recommendations Thank you for allowing us to participate in the care of this patient. Please call with any acute changes, questions or concerns. Please see addendum below with additional recommendation from my supervising physician. Supervising Physician Co-Signing Physician Notes Saw and evaluated the patient. He is status post a recent subtotal gastrectomy and has had several admissions over the past 2 weeks due to a refractory nausea and vomiting. I did review the patient's CT from the September which seems to indicate he may have an underlying ileus. Recommendations intravenous Emend to be given today Stop Celexa Need CT of the abdomen This is noted we would then need to consider use of Relistor And a bowel regimen, as patient not doing well with p.o. would recommend enema x 2 today History of Present Illness Reason for Consultation: nausea, history of NJ tube Requesting Physician: Emmanuel Attending Physician: Emmanuel History of Present Illness 58 year old male with history of GE junction invasive adenocarcinoma s/p chemo, total gastrectomy with trevin en Y esophagojejunostomy on 07/27/[address] Edmonds, [place] [facility] [place] of a 5 cm abscess near the EJ anastomosis, readmitted after due to inability to tolerate PO intake, nausea s/p EGD assisted with placement of NJ tube. However, at discharge, his nausea/vomiting returned. No black or bloody emesis, however, bilious emesis. No abd pain. No appetite. Was to be eating orally and via NJ. Not tolerating. Notes he is moving his bowels every 2-3 days. No black or bloody stools. Has zofran and compazine at home Do not work well Was started on scopolamine patch. Not sure if this has helped Has used emend in the hospital setting and this has helped He is not sure if he has tried Phenergan NJ was placed endoscopically. I was unable to open EPIC to verify this report however, in H&P there is documentation of normal anastomotic site and then the NJ tube was placed. He has had ongoing weight loss since surgery. EGD 2022: An esophageal stent was found in the middle third of the esophagus, proximal end at 22 cm from the incisors. The distal portion was above the GEJ. Stent removal was accomplished with a Raptor grasping device. A small, fungating mass with no bleeding and no stigmata of recent bleeding was found in the lower third of the esophagus, 38 cm from the incisors. The mass was non-obstructing. The Z-line was regular and was found 40 cm from the incisors. The entire examined stomach was normal. Scar in the stomach related to the distal flange of the stent. The duodenal bulb and second portion of the duodenum were normal. Allergies Allergy/AdvReac Type Severity Reaction Status Date / Time carbamazepine [From Tegretol] Allergy Mild Rash Verified 06/20/23 06:52 Home Medications Medication Instructions Recorded Confirmed Type chlorpromazine 25 mg tablet 25 mg PO Q6 PRN .nausea or hiccups 05/26/23 10/04/23 History ondansetron HCl 8 mg tablet 8 mg PO Q8 PRN Nausea 05/26/23 10/04/23 History cyanocobalamin (vitamin B-12) 1,000 mcg PO QDL 05/29/23 10/04/23 History 1,000 mcg tablet (Vitamin B-12) lidocaine-prilocaine 2.5 %-2.5 % 1 applic topical DIRECTED 05/29/23 10/04/23 History topical cream lorazepam 0.5 mg tablet 0.5 mg PO Q6 PRN .Anxiety/sleep 05/29/23 10/04/23 History morphine concentrate 100 mg/5 mL 2.5 mg PO Q4 PRN Pain 05/29/23 10/04/23 History (20 mg/mL) oral solution prochlorperazine maleate 10 mg 10 mg PO Q6 PRN Nausea 05/29/23 10/04/23 History tablet (Compazine) oxycodone 5 mg tablet 5 mg PO UD PRN Pain 09/01/23 10/04/23 History pantoprazole 40 mg tablet,delayed 40 mg PO BID PRN Other 09/01/23 10/04/23 History release aprepitant 40 mg capsule 40 mg PO DAILY 10/04/23 10/04/23 History escitalopram oxalate 10 mg tablet 10 mg PO DAILY 10/04/23 10/04/23 History scopolamine base 1 mg over 3 days 1 mg transdermal Q3D 10/04/23 10/04/23 History transdermal patch Patient History Medical History Dehydration Nausea and vomiting History of recent blood transfusion 05/02/23 @ [facility] Enteropathogenic Escherichia coli infection Hyponatremia Trigeminal neuralgia Esophageal cancer diagnosed 04/2023--chemo/ERCP Hypomagnesemia Vomiting and diarrhea Iron deficiency received blood transfusion 05/02/23 @ [facility] Surgical History History of colonoscopy History of esophagogastroduodenoscopy (EGD) History of tooth extraction partial upper and lower denture History of ERCP 04/2023 @ [facility] History of vascular access device A port--power port in placed on right side of chest Family History Other No family history of adverse response to anesthesia Social History (Updated 10/04/23 @ 11:46 by Kim Benitez PA-C) Smoking Status: Former smoker Second Hand Exposure: No; Do You Dip or Chew Tobacco: No; Hx Alcohol Use: No Hx Substance Use: No Preferred Language: Dutch Communication Ability: Effective Metal Room Dental Technician Required: No Beliefs That Will Affect Care: None Current Living Situation: Spouse Feels Safe at Home: Yes Assistive Devices: None Review of Systems Review of Systems: All systems reviewed & are unremarkable except as noted in HPI & below Physical Exam Constitutional: WD/WN, vitals as above Respiratory: normal respiratory effort Cardiovascular: Rate/Rhythm: regular rate Gastrointestinal (Abdomen): Percussion/Palpation: abdomen soft; abdomen nontender, no guarding and abdomen not rigid Skin: no rashes, warm and dry Results & Data Vital Signs (Past 12 Hours) Vital Signs Temp Pulse Pulse Resp BP BP Pulse Ox 10/04/23 13:09 75 15 117/83 96 10/04/23 12:53 73 10/04/23 11:20 85 14 119/85 97 10/04/23 08:50 68 10/04/23 08:42 99 10/04/23 08:00 36.7 C 87 20 121/85 98 O2 Del Method 10/04/23 13:09 Room Air 10/04/23 12:53 10/04/23 11:20 Room Air 10/04/23 08:50 10/04/23 08:42 Room Air 10/04/23 08:00 Room Air Laboratory Results 10/04/23 10/04/23 Range/Units 08:31 08:17 WBC 7.38 (4.8-10.8) K/ul RBC 4.38 L (4.70-6.10) M/uL Hgb 12.7 L (14.0-18.0) g/dl Hct 37.6 L (42.0-52.0) % MCV 85.8 (80.0-100.0) fL MCH 29.0 (25.0-34.0) pg MCHC 33.8 (32.0-36.0) g/dL RDW Std Deviation 45.2 (36.4-46.3) fL RDW Coeff of Stone 14.3 (11.5-14.5) % Plt Count 300 (130-400) K/uL MPV 9.9 (9.4-12.4) fL Immature Gran % (Auto) 0.3 % Neut % (Auto) 72.4 % Lymph % (Auto) 16.5 % [place] % (Auto) 10.2 % Eos % (Auto) 0.3 % Baso % (Auto) 0.3 % Neut # (Auto) 5.35 (1.40-6.50) K/uL Lymph # (Auto) 1.22 (1.20-3.40) K/uL [place] # (Auto) 0.75 H (0.11-0.59) K/uL Eos # (Auto) 0.02 (0.00-0.50) K/uL Baso # (Auto) 0.02 (0.00-0.20) K/uL Immature Gran # (Auto) 0.02 (0.01-0.20) K/uL Sodium 135 L (136-145) mmol/L Potassium 4.3 (3.5-5.1) mmol/L Chloride 98 (98-107) mmol/L Carbon Dioxide 28 (21-32) mmol/L Anion Gap 9 (3-11) BUN 15 (6-23) mg/dl Creatinine 0.53 L (0.6-1.4) mg/dl Est Cr Clr Drug Dosing Not Reportable Est GFR ( Amer) 134.2 ml/min Est GFR (Non-Af Amer) 115.8 ml/min BUN/Creatinine Ratio 28.3 H (10-20) Glucose 96 (70-99(Fasting)) mg/dl Calcium 10.0 (8.6-10.3) mg/dl Total Bilirubin 0.2 (0.2-1.0) mg/dl AST 15 (13-39) U/L ALT 17 (7-52) U/L Alkaline Phosphatase 78 (34-104) U/L Troponin I High Sens 2.7 (0-20) pg/ml Total Protein 7.8 (6.0-8.3) gm/dl Albumin 4.5 (3.4-5.0) gm/dl Globulin 3.3 (2.5-4.0) gm/dl Albumin/Globulin Ratio 1.4 (0.9-2) Lipase 15 (11-82) U/L SARS-CoV-2, RNA, NAAT NEGATIVE (NEGATIVE)
[2023-10-04 14:38] LABS: Appearance Urine Cloudy (Clear); Bacteria Urine Automated Negative (Negative); Bilirubin Urine Negative (Negative); Blood Urine Negative (Negative); Cast Urine Automated 0 /lpf (0-5); Color Urine Yellow; Glucose Urine UA Negative (Negative); Ketones Urine Negative (Negative); Leukocyte Esterase Urine Negative (Negative); Nitrite Urine Negative (Negative); Protein Urine Negative (Negative); RBC Urine Automated 0-4 /hpf (0-4); Specific Gravity Urine 1.014 (1.000-1.030); Urobilinogen Urine Negative (Negative); WBC Urine Automated 0 /hpf (0-5)
[2023-10-04] MEDS: FOSAPREPITANT DIMEGLUMINE 115 MG in 0.9 % SODIUM CHLORIDE 111.1667 ML IV ONE (15:28)
[2023-10-04] MEDS: LORazepam 0.25 MG in SYRINGE 0.125 ML IV PRN (15:29)
[2023-10-04] MEDS ORDERED: ACETAMINOPHEN 325 MG TAB PO PRN (15:49)
[2023-10-04] MEDS ORDERED: ENTERAL FORMULA NG SCH (15:49)
[2023-10-04] MEDS ORDERED: ALUMINUM/MAGNESIUM SUSP 30 ML UDC PO PRN (15:49)
[2023-10-04] MEDS ORDERED: MoRPHine SULFATE 10 MG/0.5 ML UDP PO PRN ×2 (15:49→16:59)
[2023-10-04] MEDS ORDERED: ONDANSETRON INJ 2 MG/ML 2 ML VIAL IV PRN (15:49)
[2023-10-04] MEDS ORDERED: MAGNESIUM HYDROXIDE SUSP 30 ML UDC PO PRN (15:49)
[2023-10-04] MEDS ORDERED: LORazepam 0.5 MG TAB PO PRN (15:49)
[2023-10-04] MEDS: LORazepam 0.5 MG TAB PO STA (16:34)
[2023-10-04] MEDS: LORazepam 1 MG/1 ML SYR ED Inj Use ONE (16:34)
--- NOTE | 2023-10-04 16:46 | CT Scan Report ---
CT abd pelvis wo con CLINICAL HISTORY: nausea TECHNIQUE: Helical axial images of the abdomen and pelvis were obtained. Automated dose lowering tech niques and/or adjustment according to patient size were utilized for this exam. This exam was perfor med without intravenous contrast. CT DOSE: 373.1 mGy.cm COMPARISON: Comparison is made to CT abdomen pelvis 09/24/2023 FINDINGS: Lower chest: Airspace opacities seen in the right lung base. Liver: Unremarkable. No focal lesions are seen. Gallbladder and biliary tree: No calcified gallstones. Normal caliber wall. No intra- or extrahepatic biliary ductal dilation. Pancreas: Unremarkable, no focal lesions. Spleen: Unremarkable. Adrenals: Unremarkable. Kidneys and ureters: Unremarkable. Bladder: Unremarkable. Reproductive organs: Unremarkable. Bowel: Diverticulosis is seen without diverticulitis. The appendix is normal. There is a moderate hia chuck hernia with an enteric tube noted. Lymph nodes Retroperitoneal: Unremarkable. Pelvic: Unremarkable. Mesenteric: Unremarkable. Peritoneum: Normal. Vessels: Atherosclerotic calcifications are seen. Abdominal wall: A fat-containing umbilical hernia is seen. Bones: Degenerative changes in the visualized spine. IMPRESSION: No acute abnormalities and in particular no evidence of bowel obstruction. There is a moderate hiatal hernia. ACT 112: Negative or not required by law. Electronically signed by: Zeb Whitman M.D. 10/04/2023 4:44 PM
[2023-10-04] MEDS: ESCITALOPRAM OXALATE 10 MG TAB PO SCH (17:41)
[2023-10-04] MEDS: SCOPOLAMINE 1 MG TDSY TD SCH (17:42)
[2023-10-04] MEDS: ENOXAPARIN INJ 40 MG/0.4 ML SYR SQ SCH (20:13)
[2023-10-04] MEDS: FAMOTIDINE 20 MG in SYRINGE 3 ML IV SCH (20:13)
[2023-10-05 08:05] LABS: Basophils # (auto) 0.04 K/uL (0.00-0.20); Basophils % (auto) 0.4 %; Eosinophils # (auto) 0.06 K/uL (0.00-0.50); Eosinophils % (auto) 0.7 %; Hematocrit (blood only) 32.8 % (42.0-52.0); Hemoglobin 11.2 g/dl (14.0-18.0); Immature Granulocytes # (auto) 0.04 K/uL (0.01-0.20); Immature Granulocytes % (auto) 0.4 %; Lymphocytes # (auto) 1.49 K/uL (1.20-3.40); Lymphocytes % (auto) 16.2 %; Mean Corpuscular Hemoglobin 29.2 pg (25.0-34.0); Mean Corpuscular Hgb Conc 34.1 g/dL (32.0-36.0); Mean Corpuscular Volume 85.6 fL (80.0-100.0); Mean Platelet Volume 10.1 fL (9.4-12.4); Monocytes # (auto) 0.77 K/uL (0.11-0.59); Monocytes % (auto) 8.4 %; Neutrophils # (auto) 6.82 K/uL (1.40-6.50); Neutrophils % (auto) 73.9 %; Platelet Count 278 K/uL (130-400); RDW Coefficient of Variation 14.6 % (11.5-14.5); Red Blood Count 3.83 M/uL (4.70-6.10); White Blood Count 9.22 K/ul (4.8-10.8)
[2023-10-05 08:20] LABS: Albumin Globulin Ratio 1.5 (0.9-2); BUN Creatinine Ratio 41.3 (10-20); Bilirubin,Total 0.3 mg/dl (0.2-1.0); Calcium 9.3 mg/dl (8.6-10.3); Est GFR (African American) 142.3 ml/min; Est GFR (Non-African American) 122.8 ml/min; Globulin 2.7 gm/dl (2.5-4.0); Magnesium 2.1 mg/dl (1.7-2.4); Phosphorus 4.3 mg/dl (2.5-4.9); Potassium 4.1 mmol/L (3.5-5.1); Total Protein 6.7 gm/dl (6.0-8.3)
--- NOTE | 2023-10-05 09:21 | Gastroenterology Progress Note ---
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 Edmonds, recent admission for treatment of a 5 cm abscess near the EJ anastomosis, recent admission for nausea/vomiting with placement of NJ to aid in nutrition admitted to [facility] with nausea/vomiting and decreased appetite. There was question regarding the permanence of the NJ tube. If this was not meant to be temporary would defer to his surgeon regarding decision, timing, etc of J tube placement. Regarding his nausea/vomiting, recommend scheduled antiemetics. He suggests that Emend has worked best but he is in the process of undergoing insurance approval as an OP for this. While admitted, recommend a tr ial of Emend. He was agreeable to a trial of Phenergan suppository if Emend was not approved by insurance. May continue dietary plan per his surgeons recommendations Recall GI as needed. Thank you for allowing us to participate in the care of this patient. Please call with any acute changes, questions or concerns. Please see addendum below with additional recommendation from my supervising physician. Admission and Anticipated Discharge Date Admission Date: October 04, 2023 Supervising Physician Co-Signing Physician Notes I personally saw and evaluated the patient on 10/05/2023 with CHAVO Casey and agree with her findings and plan of care. Abdomen soft and non-tender. He is improving today with IV Emend. He states he no longer has nausea or vomiting. States case management outpatient is working to get this approved for him as it seems this is the only anti-emetic that works for him. In regards to his NJ tube and timing to remove this, this will be determined by his outpatient surgeon Dr. Edmonds. GI will sign off but please call back with questions. Belgica Solorzano, DO Gastroenterology and Hepatology Subjective Pt was seen and evaluated Feeling better with the antiemetics No abd pain No nausea or vomiting Tolerating PO intake and tube feeds CT w/o acute findings to GI tract Review of Systems Review of Systems: All systems reviewed & are unremarkable except as noted in HPI & below Physical Exam Constitutional: WD/WN, vitals as above Respiratory: normal respiratory effort, lungs clear to auscultation Cardiovascular: RRR, no murmur, no edema Gastrointestinal (Abdomen): normal bowel sounds, soft, nontender, no hepatosplenomegaly Skin: no rashes, warm and dry Results & Data Vital Signs (Past 12 Hours) Vital Signs Temp Pulse Resp BP Pulse Ox O2 Del Method 10/05/23 07:07 36.3 C L 71 16 105/66 97 Room Air 10/04/23 23:41 36.3 C L 63 16 100/67 99 Room Air Laboratory Results 10/05/23 10/04/23 Range/Units 07:13 14:08 WBC 9.22 (4.8-10.8) K/ul RBC 3.83 L (4.70-6.10) M/uL Hgb 11.2 L (14.0-18.0) g/dl Hct 32.8 L (42.0-52.0) % MCV 85.6 (80.0-100.0) fL MCH 29.2 (25.0-34.0) pg MCHC 34.1 (32.0-36.0) g/dL RDW Std Deviation 46.0 (36.4-46.3) fL RDW Coeff of Stone 14.6 H (11.5-14.5) % Plt Count 278 (130-400) K/uL MPV 10.1 (9.4-12.4) fL Immature Gran % (Auto) 0.4 % Neut % (Auto) 73.9 % Lymph % (Auto) 16.2 % [place] % (Auto) 8.4 % Eos % (Auto) 0.7 % Baso % (Auto) 0.4 % Neut # (Auto) 6.82 H (1.40-6.50) K/uL Lymph # (Auto) 1.49 (1.20-3.40) K/uL [place] # (Auto) 0.77 H (0.11-0.59) K/uL Eos # (Auto) 0.06 (0.00-0.50) K/uL Baso # (Auto) 0.04 (0.00-0.20) K/uL Immature Gran # (Auto) 0.04 (0.01-0.20) K/uL Sodium 133 L (136-145) mmol/L Potassium 4.1 (3.5-5.1) mmol/L Chloride 100 (98-107) mmol/L Carbon Dioxide 27 (21-32) mmol/L Anion Gap 6 (3-11) BUN 19 (6-23) mg/dl Creatinine 0.46 L (0.6-1.4) mg/dl Est Cr Clr Drug Dosing 139.0 ml/min Est GFR ( Amer) 142.3 ml/min Est GFR (Non-Af Amer) 122.8 ml/min BUN/Creatinine Ratio 41.3 H (10-20) Glucose 111 H (70-99(Fasting)) mg/dl Calcium 9.3 (8.6-10.3) mg/dl Phosphorus 4.3 (2.5-4.9) mg/dl Magnesium 2.1 (1.7-2.4) mg/dl Total Bilirubin 0.3 (0.2-1.0) mg/dl AST 15 (13-39) U/L ALT 17 (7-52) U/L Alkaline Phosphatase 67 (34-104) U/L Total Protein 6.7 (6.0-8.3) gm/dl Albumin 4.0 (3.4-5.0) gm/dl Globulin 2.7 (2.5-4.0) gm/dl Albumin/Globulin Ratio 1.5 (0.9-2) Urine Color Yellow Urine Appearance Cloudy A (Clear) Urine pH 8.0 H (4.5-7.5) Ur Specific [place] 1.014 (1.000-1.030) Urine Protein Negative (Negative) Urine Glucose (UA) Negative (Negative) Urine Ketones Negative (Negative) Urine Blood Negative (Negative) Urine Nitrite Negative (Negative) Urine Bilirubin Negative (Negative) Urine Urobilinogen Negative (Negative) Ur Leukocyte Esterase Negative (Negative) Urine WBC (Auto) 0 (0-5) /hpf Urine RBC (Auto) 0-4 (0-4) /hpf U Hyaline Cast (Auto) 0 (0-5) /lpf U Epithel Cells (Auto) 5-10 H (0-5) /lpf Urine Bacteria (Auto) Negative (Negative)
[2023-10-05] MEDS: POLYETHYLENE (MIRALAX) 17 GM PACK PO SCH (09:51)
[2023-10-05] MEDS: MAGNESIUM HYDROXIDE SUSP 30 ML UDC PO ONE (09:51)
[2023-10-05] MEDS: CYANOCOBALAMIN (B-12) 500 MCG TABLET PO SCH (11:59)
--- NOTE | 2023-10-05 12:14 | Hospitalist Progress Note ---
Date of Service October 05, 2023 Assessment & Plan (1) Intractable nausea and vomiting: (2) Weakness: (3) Esophageal cancer: (4) On tube feeding diet: Plan This is a 58-year-old male who has a significant past medical history of T3 N1 Siewert III GE junction invasive adenocarcinoma status post chemo, total gastrectomy with yeison en Y esophagojejunostomy on 07/27/[address] Edmonds. He is presenting for intractable N/V. Hospitalized at [facility] [place] 09/02 to 09/05 secondary to 5 cm abscess at anastomotic site. Treated with IV Zosyn and transition to oral Augmentin. Represented back to [facility] [place] on 09/26 to 09/29 secondary to intractable nausea, vomiting and inability to tolerate oral intake. He was seen and evaluated by GI. He underwent EGD which showed normal anastomotic site and an NJ tube was placed. He was started on tube feeds and is currently on Peptamen 1.5 continuously at 55/h. He is tolerating this. He continues to have nausea and vomiting at home despite oral Zofran and Compazine. Emend was helpful in hospital, but unable to obtain as outpatient. 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 Edmonds Dehydration from N/V Labs including CBC, CMP reviewed; no significant abnormalities. Mild hyponatremia with sodium of 133 Status post 1 dose of Fosaprepitant Dimeglumine on October 04, 2023 Discussed regarding multiple options for nausea/vomiting. Include Haldol 0.25 and 0.5 P.O.under the Tongue every 4-6 hours. Also, Zyprexa 5 mg at bedtime. Will give a trial of Zyprexa 5 mg at bedtime Will also ask patient to smell alcohol swabs. Will need outpatient follow-up with palliative care for management of symptoms of nausea/vomiting Will advance his diet. If caloric requirement can be obtained from oral intake; NG tube can be taken out PT OT in progress Anemia h/h stable at 12.7/37.6 no s/sx of bleeding b12, folic acid levels normal as op ferritin 351, iron 50, TIBC 190 09/05/23 DVT ppx: SQ Lovenox DNR/DNI PCP: Dr. Solis Dispo: Patient admitted for intractable nausea and vomiting along with NG tube feeding given history of invasive esophageal cancer. Requires close monitoring inpatient. Undergoing trial of Zyprexa for severe nausea/vomiting. Time spent evaluating patient, direct bedside care, chart review, placing orders, interpretation of diagnostic studies, discussion with consultants, patient, and family members, as well as other required patient management activities is 50 minutes Please note the above document was generated using voice recognition software. It may contain grammatical, syntax or spelling errors. Any formal questions or concerns about the content, text or information contained within the body of this dictation should be directly addressed to the provider for clarification Admission and Anticipated Discharge Date Admission Date: October 04, 2023 Subjective Patient seen and examined at bedside. He reports that the nausea and vomiting has improved compared to admission. He was able to tolerate full liquid diet; continues to have NG feeding. Review of Systems Review of Systems: All systems reviewed & are unremarkable except as noted in Subjective Physical Exam Physical Exam: Constitutional: Alert oriented x 3. Not in any distress. Appears cachectic. NG tube in place Respiratory: normal respiratory effort, lungs clear to auscultation, no wheeze, rales, rhonchi. Normal insp/exp effort, no accessory muscle use Cardiovascular: RRR, no murmur, no edema Vessels: no JVD or carotid bruit Chest: normal inspection of chest Abdomen: Soft, nontender Musculoskeletal: no cyanosis or clubbing, extremities motor strength 5/5 Skin: no rashes, warm and dry normal turgor Neurologic: PERRL, EOMI, accommodation nl, no face palsy, no dysarthria CN's II- XI intact bilaterally and moves all extremities Psychiatric: A+Ox3, euthymic affect Results & Data Results & Data Vital Signs (Past 12 Hours) Vital Signs Temp Pulse Resp BP Pulse Ox O2 Del Method 10/05/23 07:07 36.3 C L 71 16 105/66 97 Room Air
--- OUTSIDE RECORDS SUMMARY | 2023-10-05 12:26 | External Medical Summary | Summary of Care ---
Author Name Unknown Organization [facility] Address [address] [place] [address] Phone [phone] Care Team Providers Care Decay Control Operator Name Role Phone Thaddeus Solis MD Primary Care Provider [phone] Reason for Visit * Reason Onset Date Comments Medication Problem 10/03/2023 Encounter Details Date Type Department Care Team (Late st Contact Info) Description 10/03/2023 Telephone [facility] [address] [place] [address] Thaddeus Solis MD [address] [place] [address] Medication Problem Allergies Active Allergy Reactions Criticality Noted Date Comments Carbamazepine Rash Medium 02/20/2018 documented as of this encounter (statuses as of 10/04/2023) Medications Medication Sig Dispensed Refills Start Date End Date Status Thiamine HCl 100 MG Oral Tablet (vitamin B-1) Take 1 Tablet by mouth daily. 0 Active Lidocaine-Prilocai ne 2.5-2.5 % External Cream [...] 09/09/2023 Active LORazepam 0.5 MG Oral Tablet (Ativan)Indication [...] Oral Liquid 55ml/hr via [place] tube continuously 12907 mL 2 09/28/2023 Active Aprepitant 40 MG [...] as of this encounter (statuses as of 10/04/2023) Active Problems Problem Noted Date Diagnosed Date [...] as of this encounter (statuses as of 10/04/2023) Immunizations Name Administration Dates Next Due TDAP [...] encounter Miscellaneous Notes * Telephone Encounter - Quintin Kapoor CPhT - 10/04/2023 10:48 AM EST Submitted information in previous note via CMM (Schreiber: [id number]).. Awaiting payer response. We will follow-up with insurance starting 10/04. Per [facility] request, if no decision is received from insurance by 10/10, we will route back to the [facility] after clarifying with the pharmacy that the claim is still not processing. Thank you, Homero Kapoor ([facility]) Garment Form Assembler III [facility] (CCPS) (formerly Telepharmacy) 10/04/2023, 10:48 AM * Telephone Encounter - Evelin Dawn RP - 10/04/2023 10:27 AM EST Provider, please sign script to be sent to [address] [place]. Other pharmacies unable to get. Thank you, Evelin Dawn PharmD, MBA Clinical Pharmacist Centralized Clinical Pharmacy Services (CCPS) (formerly Telepharmacy) 10/04/23 10:28 AM [phone] * Telephone Encounter - Evelin Dawn RP - 10/04/2023 10:22 AM EST Please submit PA once PCP has signed script Include the following documentation: OV 09/22/23 Admission 09/26/23 OV 06/10/23 Please copy and paste the following information into PA form: Pt taking scopolamine patches, zofran, and compazine What other drugs is there medical record documentation of therapeutic failure on, intolerance to, or contraindication to for this condition? Thaddeus as urgent: Yes Diagnosis/ICD-10 Code(s): R11.2, T45.1X5A; C16.0 If instantaneous decision is not received after submitting prior auth, please continue to follow upon this and route back to the [facility] pool if no decision is made by the insurance by 10/10, after clarifying with the pharmacy that the claim is still not processing. If PA is denied, please also route back to [facility] pool. Thank you, Evelin Dawn PharmD, MBA Clinical Pharmacist Centralized Clinical Pharmacy Services (CCPS) (formerly Telepharmacy) 10/04/23 10:22 AM [phone] * Addendum Note - Evelin Dawn RPh - 10/04/2023 10:15 AM ESTAddended by: EVELIN DAWN on: 10/04/2023 10:15 AM Modules accepted: Orders * Telephone Encounter - Quintin Kapoor CPhT - 10/04/2023 8:52 AM EST This is a new PA request. Upon review of this prior authorization request, I verified this request is appropriate. This is prescribed by a department for which [facility] is authorized to review prior authorizations This is not a duplicate encounter regarding the same prior authorization The patient is planning to use insurance The insurance information listed in previous note is correct and the plan that is requiring prior authorization The insurance does not cover either brand or generic forms of this script as written without prior authorization The insurance does not cover any NDCs of this script without prior authorization RX Estimate tool is unable to determine coverage of requested script Please see Katy's note below - PCP should be taking over script please pend (Also reach out to medirectly when routing for PA submission) Of note, there is nothing currently pending in [facility] for this request. Please advise how to proceed. Thank you, Homero Kapoor ([facility]) Garment Form Assembler III Centralized Clin[facility] Pharmacy Services (CCPS) (formerly Telepharmacy) 10/04/2023, 8:52 AM * Telephone Encounter - Katy Schmid PHARM Tech - 10/03/2023 2:20 PM EST Visiting nurse calling as the prescription for the emend is not available anywhere, pharmacy calledaround and they can not find it. Was sent to [facility] pharmacy, called [facility] and It was transferred to [facility] and they are able to get, but it will need prior authorization. Pt taking scopolamine patches, zofran, and compazine. Please call to advise. Called to advise prescription was transferred. To [facility] and needing prior auth. Being note states to follow up with PCP. Please have new prescription sent by PCP and complete prior auth. Pharmacy calling to inform doctor that the patient's insurance will not pay for this medication without a completed prior authorization. Did confirm this information with the pharmacy. Pt's current insurance information is as follows: Patient name: Edward Yoder ID number: [id number] BIN number: [id number] PCN number: [id number] Group number: [id number] Subscriber name: Edward Yoder Primary or Secondary Insurance:Primary Medication: aprepitant Reason for Request: plan limit exceeded Pharmacy and phone number: [facility], [address] [place] [phone] Rx plan and phone number: / [phone] Is this a new medication for the patient? Yes What alternative medications does the pharmacy have in stock?: n.a Thank You, Katy Schmid [facility] Garment Form Assembler III Centralized Clinical Pharmacy Services (CCPS) (Formerly Telepharmacy) 10/03/2023, 2:47 PM documented in this encounter Plan of Treatment Upcoming Encounters Date Type Department Care Team (Late st Contact Info) Description 10/05/2023 8:15 AM EST Office Visit Hematology/Oncology [facility] [address] [facility] [place] [address] Cipriano Kuhn MD [address] [facility] [place] [address] 10/11/2023 11:40 AM EST Nutrition Services Nutrition & Weight Management, [place] [address] [place] [address] Alyssa Varela RDN [address] [place], [place] [address] 10/17/2023 9:20 AM EST Office Visit General Surgery, [place] [address] [place], [place] [phone] Praveen Edmonds MD [address] [place] [address] Scheduled Procedures Name Priority Associated [...] this encounter Medical Devices Implanted Type Area Adaptive Physical Education Specialist Device Identifier Shelf Expiration Date Model / Serial / Lot Cement Hydroset Injectable 5cc - [id number] Implanted:Qty : 1 on 03/15/2018 by Ronak Khoury MD at OR [facility] Left: Head JOHN 11/09/2019 [id number] / / [id number] 37 Needle Fiducial 22ga - [id number] Implanted:Qty : 1 on 04/01/2023 by Karson Goddard MD at ENDOSCOPY [facility] N/A: Esophagus GIVEN IMAGING [id number] 01/12/2025 DSF-22-01 / / [id number] Stent Wallf Esoph 23/10mhr22to - [id number] Implanted:Qty : 1 on 04/01/2023 by Karson Goddard MD at ENDOSCOPY [facility] N/A: Esophagus [employer] : ENDOSCOPY [id number] 09/09/2024 [id number] / / [id number] Power Port 8fr Sngl Lumen Plas - [id number] Implanted:Qty : 1 on 04/19/2023 by Thaddeus Brown, DO at OR [facility] Right: Chest CR BARD : PERIPHERAL VASCULAR [id number] 06/14/2024 [id number] / / [id number] documented as of this encounter Advance Directives [...] the patient have Health Care Power of Tower Loader Operator? No Care Teams Decay Control Operator Relationship Specialty Start Date End Date Thaddeus Solis MD [address] [place] [address] PCP - General Family Medicine 09/12/23 documented as of this encounter
--- OUTSIDE RECORDS SUMMARY | 2023-10-05 12:26 | External Medical Summary | Summary of Care ---
Author Name Unknown Organization [facility] Address [address] [place] [address] Phone [phone] Care Team Providers Care Quarry Equipment Operator Name Role Phone Thaddeus Solis MD Primary Care Provider [phone] Reason for Visit * Reason Onset Date Comments Medication Problem 10/03/2023 Encounter Details Date Type Department Care Team (Late st Contact Info) Description 10/03/2023 Telephone [facility] [address] [place] [address] Thaddeus Solis MD [address] [place] [address] Medication Problem Allergies Active Allergy [...] Oral Liquid 55ml/hr via [place] tube continuously 84685 mL 2 09/28/2023 Active Aprepitant 40 MG [...] 08/03/2023 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 Awaiting payer response. We will follow-up with insurance starting 10/04. Per [facility] request, if no decision is received from insurance by 10/10, we will route back to the [facility] after clarifying with the pharmacy that the claim is still not processing. Thank you, Homero Kapoor ([facility]) Diamond Sizer III Centralized Clincal Pharmacy Services (CCPS) (formerly Telepharmacy) 10/04/2023, 10:48 AM * Telephone Encounter - Evelin Dawn RP - 10/04/2023 10:27 AM EST Provider, please sign script to be sent to [address] [place]. Other pharmacies unable to get. Thank you, Evelin Dawn PharmD, MBA Clinical Pharmacist Centralized Clinical Pharmacy Services (CCPS) (formerly Telepharmacy) 10/04/23 10:28 AM [phone] * Telephone Encounter - Evelin Dawn RP [...] upon this and route back to the [facility] pool if no decision is made by the insurance by 10/10, after clarifying with the pharmacy that the claim is still not processing. If PA is denied, please also route back to [facility] pool. Thank you, Evelin Dawn PharmD, MBA Clinical Pharmacist Centralized Clinical Pharmacy Services (CCPS) (formerly Telepharmacy) 10/04/23 10:22 AM [phone] * Addendum Note - Evelin Dawn RPh - 10/04/2023 10:15 AM ESTAddended by: EVELIN DAWN on: 10/04/2023 10:15 AM Modules accepted: Orders * Telephone Encounter - Quintin Kapoor CPhT - 10/04/2023 8:52 AM EST This is a new PA request. Upon review of this prior authorization request, I verified this request is appropriate. This is prescribed by a department for which [facility] is authorized to review prior authorizations This [...] note, there is nothing currently pending in [facility] for this request. Please advise how to proceed. Thank you, Homero Kapoor ([facility]) Diamond Sizer III Centralized Clincal Pharmacy Services (CCPS) (formerly Telepharmacy) 10/04/2023, 8:52 AM * Telephone Encounter - Katy Schmid PHARM Tech - 10/03/2023 2:20 PM EST Visiting nurse calling as the prescription for the emend is not available anywhere, pharmacy calledaround and they can not find it. Was sent to [facility] pharmacy, called [facility] and It was transferred to [facility] and they are able to get, but it will need prior authorization. Pt taking scopolamine patches, zofran, and compazine. Please call to advise. Called to advise prescription was transferred. To [facility] and needing prior auth. Being note states to follow up with PCP. Please have new prescription sent by PCP and complete prior auth. Pharmacy calling to inform doctor that the patient's insurance will not pay for this medication without a completed prior authorization. Did confirm this information with the pharmacy. Pt's current insurance information is as follows: Patient name: Edward Yoder ID number: [id number] BIN number: [id number] PCN number: [id number] Group number: [id number] Subscriber name: Edward Yoder Primary or Secondary Insurance:Primary Medication: aprepitant Reason for Request: plan limit exceeded Pharmacy and phone number: [facility], [address] [place] [phone] Rx plan and phone number: / [phone] Is this a new medication for the patient? Yes What alternative medications does the pharmacy have in stock?: n.a Thank You, Katy Schmid [facility] Diamond Sizer III Centralized Clinical Pharmacy Services (CCPS) (Formerly Telepharmacy) 10/03/2023, 2:47 PM documented in this encounter Plan of Treatment Upcoming Encounters Date Type Department Care Team (Late st Contact Info) Description 10/05/2023 8:15 AM EST Office Visit Hematology/Oncology [facility] [address] [facility] [place] [address] Cipriano Kuhn MD [address] [place] [address] 10/11/2023 11:40 AM EST Nutrition Services Nutrition & Weight Management, [place] [address] [place] [address] Alyssa Varela RDN [address] [place], [place] [address] 10/17/2023 9:20 AM EST Office Visit General Surgery, [place] [address] [place], [place] [phone] Praveen Edmonds MD [address] [place] [address] Scheduled Procedures Name Priority Associated [...] this encounter Medical Devices Implanted Type Area Rig Builder Helper Device Identifier Shelf Expiration Date Model / Serial / Lot Cement Hydroset Injectable 5cc - [id number] Implanted:Qty : 1 on 03/15/2018 by Ronak Khoury MD at OR [facility] Left: Head JOHN 11/09/2019 [id number] / / [id number] 37 Needle Fiducial 22ga - [id number] Implanted:Qty : 1 on 04/01/2023 by Karson Goddard MD at ENDOSCOPY [facility] N/A: Esophagus GIVEN IMAGING [id number] 01/12/2025 DSF-22-01 / / [id number] Stent Wallf Esoph 23/39xbq20kj - [id number] Implanted:Qty : 1 on 04/01/2023 by Karson Goddard MD at ENDOSCOPY [facility] N/A: Esophagus [employer] : ENDOSCOPY [id number] 09/09/2024 [id number] / / [id number] Power Port 8fr Sngl Lumen Plas - [id number] Implanted:Qty : 1 on 04/19/2023 by Thaddeus Brown, DO at OR [facility] Right: Chest CR BARD : PERIPHERAL VASCULAR [id number] 06/14/2024 [id number] / / [id number] documented as of this encounter Advance Directives [...] the patient have Health Care Power of Finishing And Shipping Supervisor? No Care Teams Quarry Equipment Operator Relationship Specialty Start Date End Date Thaddeus Solis MD [address] [place] [address] PCP - General Family Medicine 09/12/23 documented as of this encounter
--- OUTSIDE RECORDS SUMMARY | 2023-10-05 12:27 | External Medical Summary | Summary of Care ---
Author Name Unknown Organization [facility] Address [address] [place] [address] Phone [phone] Care Team Providers Care Solar Energy Sales Specialist Name Role Phone Thaddeus Solis MD Primary Care Provider [phone] Reason for Visit * Reason Onset Date Comments Medication Problem 10/03/2023 Encounter Details Date Type Department Care Team (Late st Contact Info) Description 10/03/2023 Telephone [facility] [address] [place] [address] Thaddeus Solis MD [address] [place] [address] Medication Problem Allergies Active Allergy [...] Oral Liquid 55ml/hr via [place] tube continuously 85066 mL 2 09/28/2023 Active Aprepitant 40 MG [...] the money to buy more. Never true 01/24/20 24 Within the past 12 months, t [...] encounter Miscellaneous Notes * Telephone Encounter - Evelin Flowers RPh - 10/04/2023 10:27 AM EST Provider, please sign script to be sent to [facility] [place], [address] [place]. Other pharmacies unable to get. Thank you, Evelin Flowers PharmD, [place] Clinical Pharmacist Centralized Clinical Pharmacy Services (CCPS) (formerly Telepharmacy) 10/04/23 10:28 AM [phone] * Telephone Encounter - Evelin Flowers RPh - 10/04/2023 10:22 AM EST Please submit [...] upon this and route back to the [facility] pool if no decision is made by the insurance by 10/10, after clarifying with the pharmacy that the claim is still not processing. If PA is denied, please also route back to [facility]. Thank you, Evelin Flowers PharmD, PET[place]A Clinical Pharmacist Centralized Clinical Pharmacy Services (CCPS) (formerly Telepharmacy) 10/04/23 10:22 AM [phone] * Addendum Note - Evelin Flowers [facility] - 10/04/2023 10:15 AM ESTAddended by: EVELIN FLOWERS on: 10/04/2023 10:15 AM Modules accepted: Orders * Telephone Encounter - Quintin Kapoor [facility] - 10/04/2023 8:52 AM EST This is a new PA request. Upon review of this prior authorization request, I verified this request is appropriate. This is prescribed by a department for which [facility] is authorized to review prior authorizations This [...] note, there is nothing currently pending in [facility] for this request. Please advise how to proceed. Thank you, Homero Kapoor ([facility]) Mixing And Dispensing Supervisor III Centralized Clincal Pharmacy Services (CCPS) (formerly Telepharmacy) 10/04/2023, 8:52 AM * Telephone Encounter - Katy Schmid PHARM Tech - 10/03/2023 2:20 PM EST Visiting nurse calling as the prescription for the emend is not available anywhere, pharmacy calledaround and they can not find it. Was sent to [facility] pharmacy, called [facility] and It was transferred to [facility] and they are able to get, but it will need prior authorization. Pt taking scopolamine patches, zofran, and compazine. Please call to advise. Called to advise prescription was transferred. To [facility] and needing prior auth. Being note [...] follows: Patient name: Edward Yoder ID number: [id number] BIN number: [id number] PCN number: [id number] Group number: [id number] Subscriber name: Edward Yoder Primary or Secondary Insurance:Primary Medication: aprepitant Reason for Request: plan limit exceeded Pharmacy and phone number: [facility], [address] [place] [phone] Rx plan and phone number: bc/bs [phone] Is this a new medication for the patient? Yes What alternative medications does the pharmacy have in stock?: n.a Thank You, Katy Schmid Cpht Mixing And Dispensing Supervisor III Centralized Clinical Pharmacy Services (CCPS) (Formerly Telepharmacy) 10/03/2023, 2:47 PM documented in this encounter Plan of Treatment Upcoming Encounters Date Type Department Care Team (Late st Contact Info) Description 10/05/2023 8:15 AM EST Office Visit Hematology/Oncology [facility] [place] [address] [facility] [place] [phone] [facility]ip[facility]uh[facility] MD [address] [facility] [address] 10/11/2023 11:40 AM EST Nutrition Services Nutrition & Weight Management, [place] [address] [place], [place] [phone] Alyssa Varela RDN [address] [place], [place] [address] 10/17/2023 9:20 AM EST Office Visit General Surgery, [place] [address] [place], [place] [address] Praveen Edmonds MD [address] [place], [place] [address] Scheduled Procedures Name Priority Associated Diagnoses Date/Ti [...] this encounter Medical Devices Implanted Type Area Websphere Portal Architect Device Identifier Shelf Expiration Date Model / Serial / Lot Cement Hydroset Injectable 5cc - [id number] Implanted:Qty : 1 on 03/15/2018 by Ronak Khoury MD at OR [facility] Left: Head JOHN 11/09/2019 [id number] / / [id number] Needle Fiducial 22ga - [id number] Implanted:Qty : 1 on 04/01/2023 by Karson Goddard MD at ENDOSCOPY [facility] N/A: Esophagus GIVEN IMAGING [id number] 01/12/2025 DSF-22-01 / / [id number] Stent Wallf Esoph 23/88sqo23jl - [id number] Implanted:Qty : 1 on 04/01/2023 by Karson Goddard MD at ENDOSCOPY [facility] N/A: Esophagus [employer] : ENDOSCOPY [id number] 09/09/2024 [id number] / / [id number] Power Port 8fr Sngl Lumen Plas - [id number] Implanted:Qty : 1 on 04/19/2023 by Thaddeus Brown DO at OR [facility] Right: Chest CR BARD : PERIPHERAL VASCULAR [id number] 06/14/2024 [id number] / / [id number] documented as of this encounter Advance Directives [...] the patient have Health Care Power of Economic Research Analyst? No Care Teams Solar Energy Sales Specialist Relationship Specialty Start Date End Date Thaddeus Solis MD [address] [place] [address] PCP - General Family Medicine 09/12/23 documented as of this encounter
--- OUTSIDE RECORDS SUMMARY | 2023-10-05 12:27 | External Medical Summary | Summary of Care ---
Author Name Unknown Organization [facility] Address [address] [place] [address] Phone [phone] Care Team Providers Care Custodian Manager Name Role Phone Thaddeus Solis MD Primary Care Provider [phone] Reason for Visit * Reason Onset Date Comments Medication Problem 10/03/2023 Encounter Details Date Type Department Care Team (Late st Contact Info) Description 10/03/2023 Telephone [facility] [address] [place] [address] Thaddeus Solis MD [address] [place] [address] Medication Problem Allergies Active Allergy [...] Oral Liquid 55ml/hr via NJ tube continuously 91522 mL 2 09/28/2023 Active Aprepitant 40 MG [...] Notes * Telephone Encounter - Quintin Kapoor [facility] - 10/04/2023 8:52 AM EST This is a new PA request. Upon review of this prior authorization request, I verified this request is appropriate. This is prescribed by a department for which [facility] is authorized to review prior authorizations This [...] script please pend (Also reach out to medirect when routing for PA submission) Of note, there is nothing currently pending in [facility] for this request. Please advise how to proceed. Thank you, Homero Kapoor ([facility]) Thoracic Medicine Physician III Centralized Clin[facility] Pharmacy Services (CCPS) (formerly Telepharmacy) 10/04/2023, 8:52 AM * Telephone Encounter - Katy Schmid PHARM Tech - 10/03/2023 2:20 PM EST Visiting nurse calling as the prescription for the emend is not available anywhere, pharmacy calledaround and they can not find it. Was sent to [facility] pharmacy, called [facility] and It was transferred to [facility] and they are able to get, but it will need prior authorization. Pt taking scopolamine patches, zofran, and compazine. Please call to advise. Called to advise prescription was transferred. To [facility] and needing prior auth. Being note [...] follows: Patient name: Edward Yoder ID number: [id number] BIN number: [id number] PCN number: [id number] Group number: [id number] Subscriber name: Edward Yoder Primary or Secondary Insurance:Primary Medication: aprepitant Reason for Request: plan limit exceeded Pharmacy and phone number: [facility], [address] [place] [phone] Rx plan and phone number: /bs [phone] Is this a new medication for the patient? Yes What alternative medications does the pharmacy have in stock?: n.a Thank You, Katy Schmid Cpht Thoracic Medicine Physician III Centralized Clinical Pharmacy Services (CCPS) (Formerly Telepharmacy) 10/03/2023, 2:47 PM documented in this encounter Plan of Treatment Upcoming Encounters Date Type Department Care Team (Late st Contact Info) Description 10/05/2023 8:15 AM EST Office Visit Hematology/Oncology [facility] [address] [place] [id number] Cipriano Kuhn MD [address] [place] [address] 10/11/2023 11:40 AM EST Nutrition Services Nutrition & Weight Management, [place] [address] [place], [place] [id number] Alyssa Varela RDN [address] [place] [address] 10/17/2023 9:20 AM EST Office Visit General Surgery, [place] [address] [place], [place] [id number] Praveen Edmonds MD [address] [place], [place] [phone] Scheduled Procedures Name Priority Associated Diagnoses Date/Ti [...] this encounter Medical Devices Implanted Type Area Switch Coupler Device Identifier Shelf Expiration Date Model / Serial / Lot Cement Hydroset Injectable 5cc - [id number] Implanted:Qty : 1 on 03/15/2018 by Ronak Khoury MD at OR [facility] Left: Head JOHN 11/09/2019 [id number] / / [id number] Needle Fiducial 22ga - [id number] Implanted:Qty : 1 on 04/01/2023 by Karson Goddard MD at ENDOSCOPY [facility] N/A: Esophagus GIVEN IMAGING [id number] 01/12/2025 DSF-22-01 / / [id number] Stent Wallf Esoph 23/[id number] - [id number] Implanted:Qty : 1 on 04/01/2023 by Karson Goddard MD at ENDOSCOPY [facility] N/A: Esophagus [employer] : ENDOSCOPY [id number] 09/09/2024 [id number] / / [id number] Power Port 8fr Sngl Lumen Plas - [id number] Implanted:Qty : 1 on 04/19/2023 by Thaddeus Brown DO at OR [facility] Right: Chest CR BARD : PERIPHERAL VASCULAR [id number] 06/14/2024 [id number] / / [id number] documented as of this encounter Advance Directives [...] the patient have Health Care Power of Valet? No Care Teams Custodian Manager Relationship Specialty Start Date End Date Thaddeus Solis MD [address] [place] [address] PCP - General Family Medicine 09/12/23 documented as of this encounter
--- OUTSIDE RECORDS SUMMARY | 2023-10-05 12:27 | External Medical Summary | Summary of Care ---
Author Name Unknown Organization [facility] Address [address] [place] [address] Phone [phone] Care Team Providers Care Shipfitter Name Role Phone Thaddeus Solis MD Primary Care Provider [phone] Reason for Visit * Reason Onset Date Comments Medication Problem 10/03/2023 Encounter Details Date Type Department Care Team (Late st Contact Info) Description 10/03/2023 Telephone [facility] [address] [place] [address] Thaddeus Solis MD [address] [place] [address] Medication Problem Allergies Active Allergy [...] Oral Liquid 55ml/hr via NJ tube continuously 37640 mL 2 09/28/2023 Active Aprepitant 40 MG [...] as of this encounter Miscellaneous Notes * Addendum Note - Evelin Flowers RPh - 10/04/2023 10:15 AM ESTAddended by: EVELIN FLOWERS on: 10/04/2023 10:15 AM Modules accepted: Orders * Telephone Encounter - Quintin Kapoor CPhT - 10/04/2023 8:52 AM EST This is a new PA request. Upon review of this prior authorization request, I verified this request is appropriate. This is prescribed by a department for which [facility] is authorized to review prior authorizations [...] note, there is nothing currently pending in Center for this request. Please advise how to proceed. Thank you, Homero Kapoor ([facility]) Channel Sales Director III Centralized Clincal Pharmacy Services (CCPS) (formerly Telepharmacy) 10/04/2023, 8:52 AM * Telephone Encounter - Katy Schmid delivery aide - 10/03/2023 2:20 PM EST Visiting nurse calling as the prescription for the emend is not available anywhere, pharmacy calledaround and they can not find it. Was sent to [facility] pharmacy, called [facility] and It was transferred to [facility] and they are able to get, but it will need prior authorization. Pt taking scopolamine patches, zofran, and compazine. Please call to advise. Called to advise prescription was transferred. To [facility] and needing prior auth. Being note [...] follows: Patient name: Edward Yoder ID number: [id number] BIN number: [id number] PCN number: [id number] Group number: [id number] Subscriber name: Edward Yoder Primary or Secondary Insurance:Primary Medication: aprepitant Reason for Request: plan limit exceeded Pharmacy and phone number: [facility], [address] [place] [phone] Rx plan and phone number: frank/bs [phone] Is this a new medication for the patient? Yes What alternative medications does the pharmacy have in stock?: n.a Thank You, Kayt Schmid [facility] Channel Sales Director III Centralized Clinical Pharmacy Services (CCPS) (Formerly Telepharmacy) 10/03/2023, 2:47 PM documented in this encounter Plan of Treatment Upcoming Encounters Date Type Department Care Team (Late st Contact Info) Description 10/05/2023 8:15 AM EST Office Visit Hematology/Oncology [facility] [address] [place] [address] Cipriano Kuhn MD [address] [place] [address] 10/11/2023 11:40 AM EST Nutrition Services Nutrition & Weight Management, [place] [address], [place] [phone] Alyssa Varela RDN [address] [place], [place] [phone] 10/17/2023 9:20 AM EST Office Visit General Surgery, [place] [address] [place], [place] [phone] Praveen Edmonds MD [address] [place], [place] [phone] Scheduled Procedures Name Priority Associated Diagnoses Date/Ti [...] Td or Tdap) 08/29/2020 08/29/2010 COVID-19 Vaccine (2022-2 4 season) 2023 04/10/2021, 03/19/2021 Influenza Vaccine [...] this encounter Medical Devices Implanted Type Area Solar Sales Estimator Device Identifier Shelf Expiration Date Model / Serial / Lot Cement Hydroset Injectable 5cc - [id number] Implanted:Qty : 1 on 03/15/2018 by Ronak Khoury MD at [place] [facility] Left: Head JOHN 11/09/2019 [id number] / / [id number] Needle Fiducial 22ga - [id number] Implanted:Qty : 1 on 04/01/2023 by Karson Goddard MD at [facility]OSCOPY [facility] N/A: Esophagus GIVEN IMAGING [id number] 01/12/2025 DSF-22-01 / / [id number] Stent Wallf Esoph 23/[id number] - [id number] Implanted:Qty : 1 on 04/01/2023 by Karson Goddard MD at ENDOSCOPY [facility] N/A: Esophagus [employer] : ENDOSCOPY [id number] 09/09/2024 [id number] / / [id number] Power Port 8fr Sngl Lumen Plas - [id number] Implanted:Qty : 1 on 04/19/2023 by Thaddeus Brown DO at OR [facility] Right: Chest CR BARD : PERIPHERAL VASCULAR [id number] 06/14/2024 [id number] / / [id number] documented as of this encounter Advance Directives [...] the patient have Health Care Power of Enamel Drier? No Care Teams Shipfitter Relationship Specialty Start Date End Date Thaddeus Solis MD [address] [facility] [place] [address] PCP - General Family Medicine 09/12/23 documented as of this encounter
[2023-10-05] MEDS: OLANZapine 5 MG TABLET PO SCH (20:18)
[2023-10-05] MEDS ORDERED: OLANZAPINE 2.5 MG TAB PO SCH (21:00)
[2023-10-06 07:18] LABS: Basophils # (auto) 0.04 K/uL (0.00-0.20); Basophils % (auto) 0.4 %; Eosinophils # (auto) 0.05 K/uL (0.00-0.50); Eosinophils % (auto) 0.5 %; Hematocrit (blood only) 33.2 % (42.0-52.0); Hemoglobin 10.9 g/dl (14.0-18.0); Immature Granulocytes # (auto) 0.04 K/uL (0.01-0.20); Immature Granulocytes % (auto) 0.4 %; Lymphocytes % (auto) 14.9 %; Mean Corpuscular Hemoglobin 28.7 pg (25.0-34.0); Mean Corpuscular Hgb Conc 32.8 g/dL (32.0-36.0); Mean Corpuscular Volume 87.4 fL (80.0-100.0); Mean Platelet Volume 9.9 fL (9.4-12.4); Monocytes # (auto) 1.05 K/uL (0.11-0.59); Monocytes % (auto) 11.2 %; Neutrophils % (auto) 72.6 %; Platelet Count 275 K/uL (130-400); RDW Coefficient of Variation 14.4 % (11.5-14.5); White Blood Count 9.38 K/ul (4.8-10.8)
[2023-10-06 07:33] LABS: BUN Creatinine Ratio 29.1 (10-20); Calcium 9.2 mg/dl (8.6-10.3); Creatinine Clr Calc Pharmacy 116.2 ml/min; Est GFR (African American) 132.2 ml/min; Est GFR (Non-African American) 114.1 ml/min; Potassium 4.3 mmol/L (3.5-5.1)
[2023-10-06] MEDS: HALOPERIDOL ORAL SOLN 2 MG/ML PO ONE (10:43)
--- NOTE | 2023-10-06 13:42 | Hospitalist Progress Note ---
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 Edmonds. He is presenting for intractable N/V. Hospitalized at [facility] 09/02 to 09/05 secondary to 5 cm abscess at anastomotic site. Treated with IV Zosyn and transition to oral Augmentin. Represented back to [facility] on 09/26 to 09/29 secondary to intractable nausea, vomiting and inability to tolerate oral intake. He was seen and evaluated by GI. He underwent EGD which showed normal anastomotic site and an NJ tube was placed. He was started on tube feeds and is currently on Peptamen 1.5 continuously at 55/h. He is tolerating this. He continues to have nausea and vomiting at home despite oral Zofran and Compazine. Emend was helpful in hospital, but unable to obtain as outpatient. 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 Edmonds Dehydration from N/V Labs including CBC, CMP reviewed; no significant abnormalities. Mild hyponatremia with sodium of 133 Status post 1 dose of Fosaprepitant Dimeglumine on October 04, 2023 Discussed regarding multiple options for nausea/vomiting. Include Haldol 0.25 and 0.5 P.O.under the Tongue every 4-6 hours. On October 05, 2023; Started on trial of Zyprexa 5 mg at bedtime as well as smell alcohol swabs. On October 06, 2023: Patient reported significant discomfort with the NG tube; he wanted to take it out as soon as possible due to discomfort. He reports that he feels much better from nausea/vomiting standpoint after initiation of Zyprexa 5 mg. Palliative is consulted for management of nausea/vomiting; will be seeing patient tomorrow. NG tube taken out; encourage small meals. Continue on Zyprexa and smelling of alcohol swabs. Haldol 0.5 mg to 2 mg per oral can also be tried on as needed basis. Anemia h/h stable at 12.7/37.6 no s/sx of bleeding b12, folic acid levels normal as op ferritin 351, iron 50, TIBC 190 09/05/23 DVT ppx: SQ Lovenox DNR/DNI PCP: Dr. Solis Dispo: Patient admitted for intractable nausea and vomiting along with NG tube feeding given history of invasive esophageal cancer. NG tube is taken out. Patient currently undergoing management of severe nausea and vomiting. Palliative care to see patient tomorrow a.m. Time spent evaluating patient, direct bedside care, chart review, placing orders, interpretation of diagnostic studies, discussion with consultants, patient, and family members, as well as other required patient management activities is 50 minutes Please note the above document was generated using voice recognition software. It may contain grammatical, syntax or spelling errors. Any formal questions or concerns about the content, text or information contained within the body of this dictation should be directly addressed to the provider for clarification Admission and Anticipated Discharge Date Admission Date: October 04, 2023 Subjective Patient seen and examined at bedside. He reports that his nausea and vomiting has improved significantly. He wants the NG tube to be discontinued as it has caused him a lot of discomfort. Review of Systems Review of Systems: All systems reviewed & are unremarkable except as noted in Subjective Physical Exam Physical Exam: Constitutional: Alert oriented x 3. Not in any distress. Appears cachectic. NG tube in place Respiratory: normal respiratory effort, lungs clear to auscultation, no wheeze, rales, rhonchi. Normal insp/exp effort, no accessory muscle use Cardiovascular: RRR, no murmur, no edema Vessels: no JVD or carotid bruit Chest: normal inspection of chest Abdomen: Soft, nontender Musculoskeletal: no cyanosis or clubbing, extremities motor strength 5/5 Skin: no rashes, warm and dry normal turgor Neurologic: PERRL, EOMI, accommodation nl, no face palsy, no dysarthria CN's II- XI intact bilaterally and moves all extremities Psychiatric: A+Ox3, euthymic affect Results & Data Results & Data Vital Signs (Past 12 Hours) Vital Signs Temp Pulse Resp BP Pulse Ox O2 Del Method 10/06/23 10:42 36.7 C 79 16 116/74 97 Room Air 10/06/23 07:37 36.6 C 70 14 106/72 97 Room Air
[2023-10-07 07:36] LABS: Basophils # (auto) 0.04 K/uL (0.00-0.20); Basophils % (auto) 0.5 %; Eosinophils # (auto) 0.07 K/uL (0.00-0.50); Eosinophils % (auto) 0.9 %; Hematocrit (blood only) 31.3 % (42.0-52.0); Hemoglobin 10.6 g/dl (14.0-18.0); Immature Granulocytes # (auto) 0.02 K/uL (0.01-0.20); Immature Granulocytes % (auto) 0.3 %; Lymphocytes # (auto) 1.97 K/uL (1.20-3.40); Lymphocytes % (auto) 25.2 %; Mean Corpuscular Hemoglobin 28.9 pg (25.0-34.0); Mean Corpuscular Hgb Conc 33.9 g/dL (32.0-36.0); Mean Corpuscular Volume 85.3 fL (80.0-100.0); Mean Platelet Volume 9.5 fL (9.4-12.4); Monocytes # (auto) 1.07 K/uL (0.11-0.59); Monocytes % (auto) 13.7 %; Neutrophils # (auto) 4.65 K/uL (1.40-6.50); Neutrophils % (auto) 59.4 %; Platelet Count 269 K/uL (130-400); RDW Coefficient of Variation 14.6 % (11.5-14.5); RDW Standard Deviation 45.4 fL (36.4-46.3); Red Blood Count 3.67 M/uL (4.70-6.10); White Blood Count 7.82 K/ul (4.8-10.8)
[2023-10-07 07:53] LABS: BUN Creatinine Ratio 25.7 (10-20); Calcium 9.5 mg/dl (8.6-10.3); Creatinine Clr Calc Pharmacy 91.3 ml/min; Est GFR (African American) 119.7 ml/min; Est GFR (Non-African American) 103.3 ml/min; Potassium 4.4 mmol/L (3.5-5.1)
--- NOTE | 2023-10-07 11:23 | Palliative Care Consultation ---
Date of Consultation October 07, 2023 Assessment & Plan (1) Refractory nausea and vomiting: Signif improvement with Zyprexa 5mg ODT BID and prn alcohol swab Better since stopping NGT Peptamen feeds Tolerating full liquid diet (2) Cancer related pain: Better with resolution of abscess and improved n/v (3) Weakness generalized: (4) Palliative care by specialist: Met with pt at bedside, provided overview of Palliative Medicine, a subspecialty that provides specialized medical care for people living with a serious illness by offering a focus on quality of life. Palliative Medicine is often conflated with hospice: I advised patient/family that Palliative and hospice can be partners but we are not the same. It is important to understand the difference so that we may be informed, and not afraid. Palliative Medicine works to improve QOL through reduction of symptom burden/more control over their illness, for both the patient and family. Palliative medicine clinicians are board certified, specially-trained and another member of the patient's medical care team. We often provide an extra layer of support because our care is based on the needs of the patient, not the prognosis; as such, it's appropriate at any age/advancing stage of a serious illness and can be provided along with curative treatment. Palliative Medicine clinicians are also trained in advanced communication methodologies, to facilitate complex discussions about advanced illness planning, which are needed to help assure that the treatment choices match the patient's goals, aka delivering Goal Concordant care. Finally, we discussed that hospice is a visiting nurse service that focuses on care delivered at the very end of life for patients with terminal illness, with life expectancy less than 6 month. (5) Advanced care planning/counseling discussion: A 30min face to face ACP discussion was held with pt at bedside, with his consent and voluntary participation we discussed the events to date. He is retired from [employer] at [facility] and reports multiple workplace exposures which could have led to cancer development as many of these were inhalational injuries incl metal dust, asbestos, mold/dry chemicals/dusts/etc. He shares that he is happy to be rid of NGT and signif improvement in n/v since Peptamen was stopped. He is happy to be tolerating the full liquid diet. We discussed nutritional boosts and methods to amplify intake/higher protein conten ts/smaller but more frequent meals and snacks. He is looking forward to going home, feels the setting is more comforting. Also notes he is due to have a repeat PETCT soon and hopes this shows his cancer is under control and no further chemo is planned. We spoke for a little while about what if there was evidence of disease requiring more treatment and he feels that since he was able to tolerate chemo first time around, he would be willing to try again. Overall he feels his cancer experience has not been terrible and he has come out of it all feeling better. He hopes he can regain the weight he lost. He would like, overall, the goal to be on reaching either cure/remission or disease control with QUYNH. He reaffirms DNR/DNI and notes he does not want to be placed on machines or live in any artificial or dependent manner. He enjoys his freedom and independence, he places a high value on his autonomy and family supports his wishes. I advised him there is Pall Med provider team at [facility] as well as my [facility] practice. I encouraged him to follow up with either myself or [facility] provider for pall med and assure good symptom mgt moving forward. I provided him with my contact information and he advised he will speak with his but overall it might be easiest for them to try and have all their care at one site to limit the amount of driving they have to do. (6) Esophageal cancer: Plan Nausea mgt reccs as noted above ACP discussion completed Encouraged OP follow up either with me or [facility] provider DC home today planned for 1pm Thank you for allowing us to participate in the ongoing care of this patient. Please don't hesitate to call or page with any additional concerns. Dr. 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 Edmonds at [facility], which was complicated by a post operative admission for treatment of a 5 cm abscess near the EJ anastomosis which was treated with IV Zosyn and transition to oral Augmentin; he then had another recent admission for nausea/vomiting with placement of NJ to aid in nutrition: Peptamen 1.5 continuously at 55/h. Pt felt NGT was adding to symptom burden and this was dc this admisison, he is tolerating full liquid diet and feeling better He completed 4 cycles of chemo prior to surgery. with Dr Kuhn at [facility] Prior to this admission he was using Zofran for nausea with decent relief. He had Emend during admissions with good relief but getting OP approval remains unclear This admission, Dr Leon and I discussed pt symptoms and agreed to trial of Zyprexa which has been providing substantial relief, he is now anticipating dc later today and tells me he is tolerating full liquid diet Additionally, have added prn alcohol swab inhalation to assist with n/v management (Chronic nausea/anorexia: Resist the setron/ NK1 cartels. Remember STEPHEN: Metoclopramide Against Gastric Atony - Predictors of response to palliative care intervention for chronic nausea in advanced cancer outpatients https://pubmed.ncbi.nlm.nih.gov/90335213/ and Inhalation of Isopropyl Alcohol for the Management of Nausea and Vomiting: A Systematic Review https://pubmed.ncbi.nlm.nih.gov/30211687/) Allergies Allergy/AdvReac Type Severity Reaction Status Date / Time carbamazepine [From Tegretol] Allergy Mild Rash Verified 06/20/23 06:52 Home Medications Medication Instructions Recorded Confirmed Type chlorpromazine 25 mg tablet 25 mg PO Q6 PRN .nausea or hiccups 05/26/23 10/04/23 History ondansetron HCl 8 mg tablet 8 mg PO Q8 PRN Nausea 05/26/23 10/04/23 History cyanocobalamin (vitamin B-12) 1,000 mcg PO QDL 05/29/23 10/04/23 History 1,000 mcg tablet (Vitamin B-12) lidocaine-prilocaine 2.5 %-2.5 % 1 applic topical DIRECTED 05/29/23 10/04/23 History topical cream lorazepam 0.5 mg tablet 0.5 mg PO Q6 PRN .Anxiety/sleep 05/29/23 10/04/23 History morphine concentrate 100 mg/5 mL 5 mg PO Q4 PRN Pain 05/29/23 10/04/23 History (20 mg/mL) oral solution prochlorperazine maleate 10 mg 10 mg PO Q6 PRN Nausea 05/29/23 10/04/23 History tablet (Compazine) oxycodone 5 mg tablet 5 mg PO UD PRN Pain 09/01/23 10/04/23 History pantoprazole 40 mg tablet,delayed 40 mg PO BID PRN Other 09/01/23 10/04/23 History release aprepitant 40 mg capsule 40 mg PO DAILY 10/04/23 10/04/23 History escitalopram oxalate 10 mg tablet 10 mg PO DAILY 10/04/23 10/04/23 History scopolamine base 1 mg over 3 days 1 mg transdermal Q3D 10/04/23 10/04/23 History transdermal patch Patient History Medical History (Updated 10/07/23 @ 11:29 by Beverley Wilcox, TARIQ) Advanced care planning/counseling discussion Weakness generalized Palliative care by specialist Cancer related pain Refractory nausea and vomiting Dehydration Nausea and vomiting History of recent blood transfusion 05/02/23 @ [facility] Enteropathogenic Escherichia coli infection Hyponatremia Trigeminal neuralgia Esophageal cancer diagnosed 04/2023--chemo/ERCP 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 [facility] Hypomagnesemia Vomiting and diarrhea Iron deficiency received blood transfusion 05/02/23 @ [facility] Surgical History History of colonoscopy History of esophagogastroduodenoscopy (EGD) History of tooth extraction partial upper and lower denture History of ERCP 04/2023 @ [facility] Eduardo History of vascular access device A port--power port in placed on right side of chest Family History Other No family history of adverse response to anesthesia Social History (Updated 10/04/23 @ 11:46 by Kim Benitez PA-C) Smoking Status: Former smoker Second Hand Exposure: No; Do You Dip or Chew Tobacco: No; Hx Alcohol Use: Yes Alcohol type: beer Hx Substance Use: No Preferred Language: Guatemalan Communication Ability: Effective [employer] Experience Strategy Required: No Beliefs That Will Affect Care: None Current Living Situation: Spouse Other Information That Helps Us Care for You: No Feels Safe at Home: Yes Safety Concerns: Feels Safe At This Time Assistive Devices: Other Review of Systems Review of Systems: All systems reviewed & are unremarkable except as noted in Subjective Physical Exam Physical Exam: NCAT PERRLA, EOMIs MMM Neck supple, no stridor resp effort WAL, no conversational dyspnea No wheeze, rhonchi or rales mild tender mid epigastric BS+ COLLINS strength intact bilat BLE without edema Skin pale, warm AAOx3 Results & Data Vital Signs (Past 12 Hours) Vital Signs Temp Pulse Resp BP Pulse Ox O2 Del Method 10/07/23 07:16 36.7 C 59 L 16 115/68 98 Room Air Laboratory Results data reviewed Diagnostic Findings data reviewed PG Care Time/CCT Total # of Minutes Spent Total Time Spent: 85 Total Time Spent with Patient: Total time spent is greater than 50% in coordination of care (as documented) at patient's floor/unit and/or counseling patient: I spent 85 minutes overall addressing this case: 15 min in medical data review/discussion with referring provider(s) and/or preparation for the visit 15 min in direct interaction with the patient/exam 30 min in Advance Care Planning/Goals of Care discussions as detailed above in note (must be >16min) 10 min in subsequent review and synthesis of assessment and plan 15 min communicating with other providers regarding the patient's case: Advanced Care Planning 09351 Advanced Care Planning 30 [place] [address] IN/OBS CONSULT LVL 4,60M Patient Type New Medical Decision Making High Complexity Diagnoses Refractory nausea and vomiting R11.2 Cancer related pain G89.3 Weakness generalized R53.1 Palliative care by specialist Z51.5 Advanced care planning/counseling discussion Z71.89 Esophageal cancer C15.9 Additional Codes Advanced Care Planning - 29440 Advanced Care Planning 30 Min: 12438 Advanced Care Planning 30 Min ([id number])
--- NOTE | 2023-10-07 12:28 | Discharge Summary ---
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 Edmonds. Of significance he was recently admitted to [facility] on 09/02 to 09/05 for a 5 cm abscess near the EJ anastomosis. He was treated with augmentin. He was then readmitted 09/26 to 09/29 secondary to nausea and concern for malnutrition. GI was consulted and he underwent EGD with placement of NJ tube. A normal esophageal jejunal anastomosis was found with a normal examined jejunum. Tube feeds were initiated and titrated to goal. He has been tolerating Peptamen 1.5 at 55 mL/h continuously. Amend was started for nausea with significant improvement in nausea. He was also started on a full liquid diet with protein supplements. Since being discharged home he continues to have difficulty with nausea. Unfortunately he was unable to obtain amend as an outpatient. According to at bedside, who also helps elicit history, this is still in the process. Since being discharged home he continues to have nausea and vomiting. He is not getting any sleep due to vomiting. Mostly vomit is pure bile, but yesterday there was evidence of some blood in vomit. He is moving bowels and denies any melena or hematochezia. He denies any omar abdominal pain. He denies any bloating. He continues to tolerate tube feeding. PCP started patient on scopolamine patch 2 weeks ago. He does not feel this helped his symptoms. He has home nursing but at bedside feels this isn't enough as they can't control his nausea. He generally feels weak. He is walking w/o assist device, but feels he could use a cane. PCP recently started him on escitalopram 2 weeks ago. He denies any f/c/s, chest pain, sob, cough, uri sx, abd pain, dysuria, increased urg/freq with urination. In ED he received Compazine with initial relief, but nausea is now returning. Admission Exam Per Admitting Provider Constitutional: Thin, chronically ill appear, minimal eye contact, vitals as above, NAD, sitting up in bed, answers questions appropriately Head: Normocephalic, Atraumatic Eyes: PERRL, conjunctivae normal, anicteric sclerae ENMT: external ear and nose normal, oropharynx normal. NJ tube in place Neck: trachea midline, no thyromegaly normal visual inspection Respiratory: normal respiratory effort, lungs clear to auscultation, no wheeze, rales, rhonchi. Normal insp/exp effort, no accessory muscle use Cardiovascular: RRR, no murmur, no edema Vessels: no JVD or carotid bruit Chest: normal inspection of chest Abdomen: normal bowel sounds, soft, nontender, no hepatosplenomegaly Musculoskeletal: no cyanosis or clubbing, AROM x 4 Skin: no rashes, warm and dry normal turgor Neurologic: PERRL, EOMI, accommodation nl, no face palsy, no dysarthria CN's II-XI intact bilaterally and moves all extremities Psychiatric: A+Ox3, dysthymic affect Lymphatic: no cervical or axillary lymphadenopathy : deferred Principal Dx & Hospital Course #1 = Principal Diagnosis (1) Intractable nausea and vomiting: (2) Weakness: (3) Esophageal cancer: (4) On tube feeding diet: Plan This is a 58-year-old male who has a significant past medical history of 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 Edmonds. He is presenting for intractable N/V.V. Was recently hospitalized at [facility] 09/02-09/05 2/2 to 5 cm abscess at anastomotic site. Treated with IV Zosyn and transition to oral Augmentin. Represented back to [facility] on 09/26- secondary to intractable nausea, vomiting and inability to tolerate oral intake. He was seen and evaluated by GI. He underwent EGD which showed normal anastomotic site and an NJ tube was placed and was receiving Peptamen 1.5 continuously at 55/h. Came to [facility] with intractable nausea and vomiting at home despite oral Zofran and Compazine. No abnormalities on CBC, CMP. H/H stable at 12.7/37.6. Received 1 dose of Emend on 10/04 which improved symptoms. Patient was having significant discomfort with NG tube and it was removed with improvement from N/V standpoint. Tolerating full liquid diet. Palliative also participated in care with trial of Zyprexa 5 mg at bedtime as well as smell alcohol swabs. Also discussed Haldol 0.5 mg to 2 mg per oral can also be tried on as needed basis but not needed during admission. Patient comfortable and hemodynamically stable at time of discharge home. 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 Discharge Exam Constitutional: Alert oriented x 3. Not in any distress, resting comfortably, appears cachectic Respiratory: normal respiratory effort, lungs clear to auscultation, no wheeze, rales, rhonchi. Normal insp/exp effort, no accessory muscle use Cardiovascular: RRR, no murmur, no edema Chest: normal inspection of chest Abdomen: Soft, nontender Musculoskeletal: no cyanosis or clubbing, extremities motor strength 5/5 Skin: no rashes, warm and dry normal turgor Neurologic: PERRL, EOMI, accommodation nl, no face palsy, no dysarthria CN's II- XI intact bilaterally and moves all extremities Psychiatric: A+Ox3, euthymic affect Updated Medication List Medication Instructions Recorded Confirmed Type chlorpromazine 25 mg tablet 25 mg PO Q6 PRN .nausea or hiccups 05/26/23 10/04/23 History ondansetron HCl 8 mg tablet 8 mg PO Q8 PRN Nausea 05/26/23 10/04/23 History cyanocobalamin (vitamin B-12) 1,000 mcg PO QDL 05/29/23 10/04/23 History 1,000 mcg tablet (Vitamin B-12) lidocaine-prilocaine 2.5 %-2.5 % 1 applic topical DIRECTED 05/29/23 10/04/23 History topical cream lorazepam 0.5 mg tablet 0.5 mg PO Q6 PRN .Anxiety/sleep 05/29/23 10/04/23 History morphine concentrate 100 mg/5 mL 5 mg PO Q4 PRN Pain 05/29/23 10/04/23 History (20 mg/mL) oral solution prochlorperazine maleate 10 mg 10 mg PO Q6 PRN Nausea 05/29/23 10/04/23 History tablet (Compazine) oxycodone 5 mg tablet 5 mg PO UD PRN Pain 09/01/23 10/04/23 History pantoprazole 40 mg tablet,delayed 40 mg PO BID PRN Other 09/01/23 10/04/23 History release aprepitant 40 mg capsule 40 mg PO DAILY 10/04/23 10/04/23 History escitalopram oxalate 10 mg tablet 10 mg PO DAILY 10/04/23 10/04/23 History scopolamine base 1 mg over 3 days 1 mg transdermal Q3D 10/04/23 10/04/23 History transdermal patch olanzapine 5 mg tablet 5 mg PO HS #30 tabs 10/07/23 Rx Hospital Stay Data Consultations 10/04/23 10:39 ED Decision to Admit Stat 10/04/23 11:38 Consult Gastroenterology Routine 10/06/23 08:17 Consult Palliative Care Routine Diagnostic Imagining Performed 10/04/23 14:56 CT abd pelvis wo con Routine Pending Results Patient Have Any Pending Studies at Discharge: No Discharge Instructions Given to Patient (Per Discharging Provider) MEDICATION CHANGES: Continue Zyprexa 5mg at bedtime as well as smelling of alcohol swabs for intractable nausea PENDING TEST RESULTS: None RECOMMENDATIONS FOR FOLLOW-UP: Follow up with PCP as scheduled Please discuss continuation of Zyprexa terminal make up operator for nausea symptoms with PCP NG tube removed and tolerating full liquid diet; continue Continue medication regimen as scheduled aside from changes noted above OTHER INSTRUCTIONS: Seek medical attention if you have: * temperature above 101 * chest pain or trouble breathing * abdominal pain, nausea, vomiting * diarrhea, dark stools or bloody stools * any unanswered questions or concerns Call 911 if symptoms are severe. Please take good care of yourself. Call if you have any questions or problems. You can reach a [facility] hospitalist on duty at [facility] 24 hours a day by calling [phone]. Angie Ch PA-C [facility] Hospitalist Total Time Total Time Spent Total Time Spent (In Minutes): 40 Supervising Physician Co-Signing Physician Notes Patient is seen and examined on day of discharge. States feeling well today. Nausea, vomiting resolved. Tolerating current diet. Denies any chest pain, dyspnea, dizziness, abdominal pain. On exam patient is thin, frail, no apparent distress, normocephalic atraumatic, EOMI, normal breath sounds, clear to auscultation, S1-S2, no murmur, abdomen soft, nontender, normal bowel sounds, alert, awake, oriented, grossly no focal deficits. Intractable nausea, vomiting. Esophageal cancer. Resolved after Emend. Also on Zyprexa. Advised to discuss with PCP regarding need for continuation of Zyprexa risks versus benefits discussed. Patient was recently started on Lexapro (1 week ago per patient )and believes to be contributing to vomiting. Plan to hold except till follow-up with PCP. Patient was advised to eat small frequent meals. If recurrence of symptoms, patient to be follow-up with GI as outpatient. I personally interviewed and examined at bedside. Patient's care is coordinated with Angie Ch PA-C. I have reviewed the advanced practitioner's documentation, and I agree with, and take responsibility for that plan of care. Please refer to the documentation above for details of patient's presentation and for discussion of other issues. I spent a total [id number] coordinating, documenting, and providing care for this patient excluding time spent in the performance of separately billed services.
--- NOTE | 2023-10-19 12:35 | Coding Query ---
Esophageal Cancer. CODING QUERY To promote full compliance with coding requirements relating to patient care, provider participation is requested in all cases of professional fee coder uncertainty. Please assist us with the question(s) below: Clinical Indicators: H&P: * Intractable nausea and vomiting * Esophageal cancer * Intolerance to any feeding * On tube feeding diet Discharge Summary: * Received 1 dose of Emend on 10/04 which improved symptoms * Patient was having significant discomfort with NG tube and it was removed with improvement from a N/V standpoint * Tolerating full liquid diet Coding Question(s): Using your best medical judgement and the above clinical indicators, can you further specify the etiology of the intractable nausea and vomiting as: * Complication of nasogastric tube * Esophageal cancer * Other: * Unable to determine. Physician's Response(s): Esophageal Cancer Thank you Shyanne HANCOCK
== END 2023-10-07 13:49 | disposition home health service (06) | DRG 391 ==
LOC: ED 07:57 → SUATTDRO 10:57 → EDINP 10:57 → 3W 15:58

== ENCOUNTER 2023-12-15 18:15 | Observation (INO) ==
[2023-12-15 19:33] LABS: Basophils # (auto) 0.02 K/uL (0.00-0.20); Basophils % (auto) 0.3 %; Hematocrit (blood only) 38.3 % (42.0-52.0); Hemoglobin 13.3 g/dl (14.0-18.0); Immature Granulocytes # (auto) 0.03 K/uL (0.01-0.20); Immature Granulocytes % (auto) 0.4 %; Lymphocytes # (auto) 1.19 K/uL (1.20-3.40); Lymphocytes % (auto) 16.9 %; Mean Corpuscular Hemoglobin 29.4 pg (25.0-34.0); Mean Corpuscular Hgb Conc 34.7 g/dL (32.0-36.0); Mean Corpuscular Volume 84.7 fL (80.0-100.0); Mean Platelet Volume 10.1 fL (9.4-12.4); Monocytes # (auto) 0.68 K/uL (0.11-0.59); Monocytes % (auto) 9.6 %; Neutrophils # (auto) 5.14 K/uL (1.40-6.50); Neutrophils % (auto) 72.8 %; Platelet Count 310 K/uL (130-400); RDW Standard Deviation 46.4 fL (36.4-46.3); Red Blood Count 4.52 M/uL (4.70-6.10); White Blood Count 7.06 K/ul (4.8-10.8)
[2023-12-15] MEDS: SODIUM CHLORIDE 0.9% 1,000 ML IV SCH (19:38)
[2023-12-15] MEDS: ONDANSETRON INJ 2 MG/ML 2 ML VIAL IV STA (19:39)
[2023-12-15 19:45] LABS: INR 1.1 (0.9-1.1); Prothrombin Time 11.9 Seconds (9.0-12.0)
[2023-12-15 19:54] LABS: Albumin Globulin Ratio 1.6 (0.9-2); Albumin Level 4.4 gm/dl (3.4-5.0); BUN Creatinine Ratio 12.9 (10-20); Bilirubin,Total 0.9 mg/dl (0.2-1.0); Calcium 9.6 mg/dl (8.6-10.3); Creatinine Clr Calc Pharmacy 84.5 ml/min; Est GFR (African American) 119.7 ml/min; Est GFR (Non-African American) 103.3 ml/min; Globulin 2.7 gm/dl (2.5-4.0); Magnesium 1.7 mg/dl (1.7-2.4); Potassium 3.9 mmol/L (3.5-5.1); Total Protein 7.1 gm/dl (6.0-8.3)
[2023-12-15 20:00] LABS: Troponin I High Sensitivity 4.9 pg/ml (0-20)
[2023-12-15 20:10] LABS: Thyroid Stimulating Hormone 0.72 uIu/ml (0.300-4.500)
--- NOTE | 2023-12-15 20:13 | Emergency Department Note ---
History of Present Illness General Chief complaint: Flu Like Symptoms Stated complaint: DEHYDRATION, ABD PAIN, SURGERY/CARMEN, VOMITING Time Seen by Provider: 12/15/23 19:59 Source: patient, family ( who was at bedside), RN notes reviewed and old records reviewed (10/04/23-discharge summary for nausea and vomiting abdominal pain) Mode of arrival: ambulatory Limitations: no limitations History of Present Illness Maximum Pain Intensity: 2 This patient a 58-year-old male who comes in after having nausea and vomiting. He had stomach and esophageal surgery for esophageal cancer in [place] and had a lot of trouble since then he was in and out of the hospital several times last month he was doing okay but he was seen here 2 days ago and now comes back with the same his CAT scan was 2 days ago. His feels he needs to be admitted as he gets dehydrated gets worse when he gets at home he is feeling better after receiving some IV Zofran IV fluids prior to my evaluation no fever no chest pain feels some dyspnea on exertion at times no blood or melena in his stool no blood or coffee-ground emesis .no significant abdominal pain. He called his primary care doctor who recommended he come to the Home Medications Medication Instructions Recorded Confirmed Type chlorpromazine 25 mg tablet 25 mg PO Q6 PRN .nausea or hiccups 05/26/23 12/15/23 History ondansetron HCl 8 mg tablet 8 mg PO Q8 PRN Nausea 05/26/23 12/15/23 History cyanocobalamin (vitamin B-12) 1,000 mcg PO QDL 05/29/23 12/15/23 History 1,000 mcg tablet (Vitamin B-12) lidocaine-prilocaine 2.5 %-2.5 % 1 applic topical DIRECTED PRN 05/29/23 12/15/23 History topical cream PORT ACCESS. lorazepam 0.5 mg tablet 0.5 mg PO Q6 PRN .Anxiety/sleep 05/29/23 12/15/23 History morphine concentrate 100 mg/5 mL 5 mg PO Q4 PRN Pain 05/29/23 12/15/23 History (20 mg/mL) oral solution prochlorperazine maleate 10 mg 10 mg PO Q6 PRN Nausea 05/29/23 12/15/23 History tablet (Compazine) oxycodone 5 mg tablet 5 mg PO UD PRN Pain 09/01/23 12/15/23 History pantoprazole 40 mg tablet,delayed 40 mg PO BID PRN Other 09/01/23 12/15/23 History release escitalopram oxalate 10 mg tablet 10 mg PO DAILY 10/04/23 12/15/23 History olanzapine 5 mg tablet 5 mg PO HS #30 tabs 10/07/23 12/15/23 Rx cholecalciferol (vitamin D3) 25 0 mcg PO DAILY 12/13/23 12/15/23 History mcg (1,000 unit) capsule (Vitamin D3) Allergies Allergy/AdvReac Type Severity Reaction Status Date / Time carbamazepine [From Tegretol] Allergy Mild Rash Verified 12/15/23 20:18 Past Med/Surg History Medical History Advanced care planning/counseling discussion Weakness generalized Palliative care by specialist Cancer related pain Refractory nausea and vomiting Dehydration Nausea and vomiting History of recent blood transfusion 05/02/23 @ [facility] Enteropathogenic Escherichia coli infection Hyponatremia Trigeminal neuralgia Esophageal cancer diagnosed 04/2023--chemo/ERCP 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 [facility] Hypomagnesemia Vomiting and diarrhea Iron deficiency received blood transfusion 05/02/23 @ [facility] Surgical History History of colonoscopy History of esophagogastroduodenoscopy (EGD) History of tooth extraction partial upper and lower denture History of [place]23 [place] [facility] History of vascular access device A port--power port in placed on right side of chest Family History Other No family history of adverse response to anesthesia Social History Smoking Status: Never smoker Second Hand Exposure: No; Do You Dip or Chew Tobacco: No; Hx Alcohol Use: Yes Alcohol type: beer Hx Substance Use: No Preferred Language: Indonesian Communication Ability: Effective Produce 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 Required: No Beliefs That Will Affect Care: None Current Living Situation: Spouse Feels Safe at Home: Yes Assistive Devices: Other Review of Systems A total of 10 systems reviewed and were otherwise negative Physical Exam Vital Signs Vital Signs - 24 hr 12/15/23 18:19 12/15/23 18:46 12/15/23 18:46 Temperature 37.4 C Temperature Source Temporal Artery Scan Pulse Rate 83 60 Pulse Rate [Apical] 61 Pulse Strength Normal Respiratory Rate 16 21 Respiratory Effort / Characteristics Non-Labored Spontaneous Respiratory Depth Normal Respiratory Pattern Regular Blood Pressure 146/92 H Blood Pressure [Right Arm] 142/87 H Blood Pressure Mean 110 Blood Pressure Mean [Right Arm] 105 Blood Pressure Position Sitting Pulse Oximetry 100 100 Oxygen Delivery Method Room Air Sepsis Recent Fever Within 48 Hours No Sepsis New/Unexplained Change in Mental Status No Sepsis Action Taken by Nursing No Action Required 12/15/23 19:00 12/15/23 20:17 12/15/23 22:00 Temperature Temperature Source Pulse Rate Pulse Rate [Apical] 52 L 54 L Pulse Strength Respiratory Rate 18 18 Respiratory Effort / Characteristics Respiratory Depth Respiratory Pattern Blood Pressure Blood Pressure [Right Arm] 148/79 H 100/65 Blood Pressure Mean Blood Pressure Mean [Right Arm] 102 76 Blood Pressure Position Pulse Oximetry 98 100 98 Oxygen Delivery Method Room Air Room Air Sepsis Recent Fever Within 48 Hours Sepsis New/Unexplained Change in Mental Status Sepsis Action Taken by Nursing 12/15/23 22:52 Temperature Temperature Source Pulse Rate 54 L Pulse Rate [Apical] Pulse Strength Respiratory Rate Respiratory Effort / Characteristics Respiratory Depth Respiratory Pattern Blood Pressure Blood Pressure [Right Arm] Blood Pressure Mean Blood Pressure Mean [Right Arm] Blood Pressure Position Pulse Oximetry Oxygen Delivery Method Sepsis Recent Fever Within 48 Hours Sepsis New/Unexplained Change in Mental Status Sepsis Action Taken by Nursing General: Well developed well nourished somewhat cachectic middle-age male who appears in no acute distress, breathing comfortably on room air. Normal speech HEENT: Normal cephalic atraumatic. Pupils are equal round and reactive to light. Sclera are anicteric extraocular movements are intact. Oropharynx is pink with moist mucous membranes. No swelling of the mouth lips or tongue. Neck: Supple with a midline trachea. No meningeal signs or stiffness, no JVD or bruits. No Stridor. Chest: Clear to auscultation bilaterally. No wheezes or rhonchi. No increased work of breathing. Heart: Regular rate and rhythm without murmurs or gallops. Abdomen: Soft nontender, nondistended without rebound guarding or rigidity. Extremities: No cyanosis clubbing or edema. No calf tenderness or assymetry Spine/Back. Non tender to palpation. No CVA tenderness Skin: Good turgor without rashes. Neurologic exam: Cranial nerves two through 12 are intact. Motor and sensation are intact and symmetrical throughout. Course Administered Medications Lactated Ringer's (Lr) 1,000 mls @ 100 mls/hr IV .Q10H ONE Stop: 12/16/23 08:44 Last Admin: 12/15/23 23:52 Dose: 100 mls/hr Documented By: JANETTE Discontinued Medications Sodium Chloride (Nss) 1,000 mls @ 999 mls/hr IV .Q1H1M GREG Stop: 12/15/23 20:00 Last Infusion: 12/15/23 20:39 Dose: Infused Documented By: Admin: 12/15/23 19:38 Dose: 999 mls/hr Documented By: GRZEGORZ Sodium Chloride (Nss) 500 mls @ 999 mls/hr IV .Q31M ONE Stop: 12/15/23 20:35 Last Infusion: 12/15/23 21:13 Dose: Infused Documented By: Admin: 12/15/23 20:40 Dose: 999 mls/hr Documented By: GRZEGORZ Morphine Sulfate (Morphine Sulfate 2 Mg/Ml Carp) 2 mg IV NOW STA Stop: 12/15/23 20:06 Last Admin: 12/15/23 20:39 Dose: 2 mg Documented By: GRZEGORZ Ondansetron HCl (Ondansetron Inj 2 Mg/Ml 2 Ml Vial) 4 mg IV NOW STA Stop: 12/15/23 19:01 Last Admin: 12/15/23 19:39 Dose: 4 mg Documented By: GRZEGORZ Medical Decision Making Differential Diagnosis Dehydration, bowel obstruction, postop complication, cancer complication, electrolyte or metabolic abnormality, cardiac disease, pancreatitis, Medical Records Attestation: I reviewed the patient's medical records. Home Medications Current Medication List: was personally reviewed by me Laboratory Data Attestation: I reviewed the patient's lab results. 12/15/23 18:48 12/15/23 18:48 Lab Results 12/15/23 12/15/23 Range/Units 18:48 19:42 WBC 7.06 (4.8-10.8) K/ul RBC 4.52 L (4.70-6.10) M/uL Hgb 13.3 L (14.0-18.0) g/dl Hct 38.3 L (42.0-52.0) % MCV 84.7 (80.0-100.0) fL MCH 29.4 (25.0-34.0) pg MCHC 34.7 (32.0-36.0) g/dL RDW Std Deviation 46.4 H (36.4-46.3) fL RDW Coeff of Stone 15.0 H (11.5-14.5) % Plt Count 310 (130-400) K/uL MPV 10.1 (9.4-12.4) fL Immature Gran % (Auto) 0.4 % Neut % (Auto) 72.8 % Lymph % (Auto) 16.9 % [place] % (Auto) 9.6 % Eos % (Auto) 0.0 % Baso % (Auto) 0.3 % Neut # (Auto) 5.14 (1.40-6.50) K/uL Lymph # (Auto) 1.19 L (1.20-3.40) K/uL [place] # (Auto) 0.68 H (0.11-0.59) K/uL Eos # (Auto) 0.00 (0.00-0.50) K/uL Baso # (Auto) 0.02 (0.00-0.20) K/uL Immature Gran # (Auto) 0.03 (0.01-0.20) K/uL PT 11.9 (9.0-12.0) Seconds INR 1.1 (0.9-1.1) Sodium 137 (136-145) mmol/L Potassium 3.9 (3.5-5.1) mmol/L Chloride 102 (98-107) mmol/L Carbon Dioxide 24 (21-32) mmol/L Anion Gap 11 (3-11) BUN 9 (6-23) mg/dl Creatinine 0.70 (0.6-1.4) mg/dl Est Cr Clr Drug Dosing 84.5 ml/min Est GFR ( Amer) 119.7 ml/min Est GFR (Non-Af Amer) 103.3 ml/min BUN/Creatinine Ratio 12.9 (10-20) Glucose 115 H (70-99(Fasting)) mg/dl Calcium 9.6 (8.6-10.3) mg/dl Magnesium 1.7 (1.7-2.4) mg/dl Total Bilirubin 0.9 (0.2-1.0) mg/dl AST 20 (13-39) U/L ALT 13 (7-52) U/L Alkaline Phosphatase 101 (34-104) U/L Troponin I High Sens 4.9 (0-20) pg/ml Total Protein 7.1 (6.0-8.3) gm/dl Albumin 4.4 (3.4-5.0) gm/dl Globulin 2.7 (2.5-4.0) gm/dl Albumin/Globulin Ratio 1.6 (0.9-2) Lipase 62 (11-82) U/L TSH 0.720 (0.300-4.500) uIu/ml Adenovirus (PCR) Not Detected (NotDetected) B. pertussis DNA (PCR) Not Detected (NotDetected) B.parapertussis DNA PCR Not Detected (NotDetected) C. pneumoniae DNA (PCR) Not Detected (NotDetected) Coronavirus OC43 (PCR) Not Detected (NotDetected) Coronavirus HKU1 (PCR) Not Detected (NotDetected) Coronavirus 229E (PCR) Not Detected (NotDetected) SARS-CoV-2 (PCR) Not Detected (NotDetected) Coronavirus NL63 (PCR) Not Detected (NotDetected) Human Metapneumovir PCR Not Detected (NotDetected) Influenza Type A (PCR) Not Detected (NotDetected) Influenza Type B (PCR) Not Detected (NotDetected) M. pneumoniae (PCR) Not Detected (NotDetected) Parainfluenza 1 (PCR) Not Detected (NotDetected) Parainfluenza 2 (PCR) Not Detected (NotDetected) Parainfluenza 3 (PCR) Not Detected (NotDetected) Parainfluenza 4 (PCR) Not Detected (NotDetected) RSV (PCR) Not Detected (NotDetected) Entero/Rhino (PCR) Not Detected (NotDetected) Imaging Data Attestation: I personally reviewed and interpreted this imaging study as follows: My Impression: Acute abdominal seriesno obstruction or free air seen ECG Data Attestation: I personally reviewed and interpreted this ECG as follows: Indication: + nausea, + vomiting and + weakness Rate (beats per minute): 52 Rhythm: + sinus bradycardia ECG Intervals/blocks: + Normal QRS and + Normal QT ECG [place]: + Normal ECG ST segments: + Normal ST segments ECG Findings: + U waves; no PACs or no PVCs Comparison ECG Date: from (12/13/23) Change: no significant change MDM Narrative This patient comes in described above he has had continuation of nausea and vomiting and weakness and abdominal discomfort. He has had problems since he had a esophageal sinus surgery and has been admitted multiple times he had a CAT scan 2 days ago which was unremarkable.he is been afebrile his lab work looks reassuring so far. today's EKG shows no ischemic changes. he has no significant electrolyte or metabolic abnormalities. EKG was unremarkable. I did order acute abdominal series. I ordered additional IV hydration . He did also request pain medication was given morphine 2 mg IV. His does not feel he can go home. His acute abdominal series shows no free air or obstruction. He is feeling somewhat better with the hydration but does feel he needs to be admitted I did discuss the case with Dr. Black who will see him in the ER for these measures. Continuous cardiac monitoring: Orders placed in the EMR for continuous classroom monitor: Upon my evaluation patient to be in sinus bradycardia in the rate of 55. Impression & Plan Dehydration, Nausea and vomiting, Abdominal pain, History of esophageal cancer Discharge Plan Visit Data Chief Complaint: Flu Like Symptoms Stated Complaint: DEHYDRATION, ABD PAIN, SURGERY/CARMEN, VOMITING ED Provider: José Manuel Lynn Discharge Problem: Dehydration, Nausea and vomiting, Abdominal pain, History of esophageal cancer Discharge Instructions Interventions: ED Discharge Assessment Last Done: 12/16/23 00:46 Discharge Problem: Nausea and vomiting Qualifiers: Vomiting type: unspecified Qualified Code(s): R11.2 - Nausea with vomiting, unspecified Abdominal pain Qualifiers: Abdominal location: generalized Qualified Code(s): R10.84 - Generalized abdominal pain
[2023-12-15] MEDS: MoRPHine SULFATE 2 MG/ML CARP IV STA (20:39)
[2023-12-15] MEDS: SODIUM CHLORIDE 0.9% 500 ML IV ONE (20:40)
[2023-12-15 21:00] LABS: Adenovirus PCR Not Detected (NotDetected); Bordetella parapertussis PCR Not Detected (NotDetected); Bordetella pertussis PCR Not Detected (NotDetected); Chlamydia pneumoniae PCR Not Detected (NotDetected); Coronavirus 229E PCR Not Detected (NotDetected); Coronavirus CoV-2 (COVID19)PCR Not Detected (NotDetected); Coronavirus HKU1 PCR Not Detected (NotDetected); Coronavirus NL63 PCR Not Detected (NotDetected); Coronavirus OC43PCR Not Detected (NotDetected); Human Metapneumovirus PCR Not Detected (NotDetected); Influenza A PCR Not Detected (NotDetected); Influenza B PCR Not Detected (NotDetected); Mycoplasma pneumoniae PCR Not Detected (NotDetected); Parainfluenza Virus 1 PCR Not Detected (NotDetected); Parainfluenza Virus 2 PCR Not Detected (NotDetected); Parainfluenza Virus 3 PCR Not Detected (NotDetected); Parainfluenza Virus 4 PCR Not Detected (NotDetected); Respiratory Syncytial VirusPCR Not Detected (NotDetected); Rhinovirus/Enterovirus PCR Not Detected (NotDetected)
[2023-12-15] MEDS ORDERED: ACETAMINOPHEN 325 MG TAB PO PRN (21:55)
--- NOTE | 2023-12-15 23:40 | History & Physical Report ---
Date of Service December 15, 2023 Assessment & Plan (1) Hypotension: Plan: Secondary to GI illness likely viral hx esophageal cancer status post neoadjuvant chemotherapy/surgery chronic anemia, hemoglobin at baseline Hyperglycemia rule out DM Malnutrition low BMI past tobacco abuse OBS Medical telemetry IVF Supportive management for viral illness Check hemoglobin A1c Nutrition consult Re: Low BMI DVT prophylaxis. Lovenox subcu Full code (Patient currently reversing DNR directive from last confinement.) Text document was generated using Properati voice recognition software. It may contain grammatical or spelling errors. Kindly contact undersigned for clarification of any documentation item in question. History of Present Illness Chief Complaint: Flulike symptoms, nausea, vomiting Primary Care Provider: Thaddeus Solis MD History obtained from patient and records. Medical history significant for esophageal cancer status post neoadjuvant chemotherapy/surgery, chronic anemia (baseline hemoglobin 12-13), history trigeminal neuralgia status post surgery, past tobacco abuse. Last [facility] confinement September 2023 for nausea/vomiting symptoms, 2 days ago, patient noted achy epigastric pain associated with nausea vomiting symptoms. No diarrhea. No chest pain, no SOB. Possible sick contact at home. Patient consulted ER, admission offered as per patient despite unremarkable workup but patient opted to go home. Symptoms initially better but recurred today. Abdominal pain not worse than a few days ago. Patient directed to ER by PCP's office. Lowest SBP of 80s noted at the ER. Medical History as above Surgical History : Vascular procedure, cranial nerve exploration, total gastrectomy with esophagoenterostomy Family History : Stroke Personal/Social history : Past tobacco abuse, occasional EtOH intake, retired [employer] employee Allergies Allergy/AdvReac Type Severity Reaction Status Date / Time carbamazepine [From Tegretol] Allergy Mild Rash Verified 12/15/23 20:18 Home Medications Medication Instructions Recorded Confirmed Type chlorpromazine 25 mg tablet 25 mg PO Q6 PRN .nausea or hiccups 05/26/23 12/15/23 History ondansetron HCl 8 mg tablet 8 mg PO Q8 PRN Nausea 05/26/23 12/15/23 History cyanocobalamin (vitamin B-12) 1,000 mcg PO QDL 05/29/23 12/15/23 History 1,000 mcg tablet (Vitamin B-12) lidocaine-prilocaine 2.5 %-2.5 % 1 applic topical DIRECTED PRN 05/29/23 12/15/23 History topical cream PORT ACCESS. lorazepam 0.5 mg tablet 0.5 mg PO Q6 PRN .Anxiety/sleep 05/29/23 12/15/23 History morphine concentrate 100 mg/5 mL 5 mg PO Q4 PRN Pain 05/29/23 12/15/23 History (20 mg/mL) oral solution prochlorperazine maleate 10 mg 10 mg PO Q6 PRN Nausea 05/29/23 12/15/23 History tablet (Compazine) oxycodone 5 mg tablet 5 mg PO UD PRN Pain 09/01/23 12/15/23 History pantoprazole 40 mg tablet,delayed 40 mg PO BID PRN Other 09/01/23 12/15/23 History release escitalopram oxalate 10 mg tablet 10 mg PO DAILY 10/04/23 12/15/23 History olanzapine 5 mg tablet 5 mg PO HS #30 tabs 10/07/23 12/15/23 Rx cholecalciferol (vitamin D3) 25 0 mcg PO DAILY 12/13/23 12/15/23 History mcg (1,000 unit) capsule (Vitamin D3) Past Med/Surg History Medical History Advanced care planning/counseling discussion Weakness generalized Palliative care by specialist Cancer related pain Refractory nausea and vomiting Dehydration Nausea and vomiting History of recent blood transfusion 05/02/23 @ [facility] Enteropathogenic Escherichia coli infection Hyponatremia Trigeminal neuralgia Esophageal cancer diagnosed 04/2023--chemo/ERCP 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 Edmonds/[facility] [place] Hypomagnesemia Vomiting and diarrhea Iron deficiency received blood transfusion 05/02/23 @ [facility] Surgical History History of colonoscopy History of esophagogastroduodenoscopy (EGD) History of tooth extraction partial upper and lower denture History of ERCP 04/[address] [facility] [place] History of vascular access device A port--power port in placed on right side of chest Family History Other No family history of adverse response to anesthesia Social History Smoking Status: Former smoker Second Hand Exposure: No; Do You Dip or Chew Tobacco: No; Hx Alcohol Use: Yes Alcohol type: beer Hx Substance Use: No Preferred Language: Scottish Communication Ability: Effective Supervisor [employer] Required: No Beliefs That Will Affect Care: None Current Living Situation: Spouse Feels Safe at Home: Yes Safety Concerns: Feels Safe At This Time Assistive Devices: Cane, Denture - Upper, Denture - Lower and Glasses Review of Systems Review of Systems: As per HPI, all other systems reviewed and negative Physical Exam Physical Exam: GENERAL: Comfortable, pleasant, underweight, no respiratory distress SKIN: Pallor, warm HEENT: Pale palpebral conjunctivae, no ptosis, dry buccal mucosa NECK : Supple, no tenderness CHEST : CTA, no tenderness HEART : Bradycardic, no obvious murmurs ABDOMEN: No distention, no overt tenderness EXTREMITIES : No LE swelling/tenderness, no other conspicuous deformities noted NEUROLOGIC : Coherent, no facial asymmetry, no other gross focality Results & Data Results & Data Vital Signs (Past 12 Hours) Vital Signs Temp Pulse Pulse Resp BP BP Pulse Ox 12/15/23 22:52 54 L 12/15/23 22:00 54 L 18 100/65 98 12/15/23 20:17 52 L 18 148/79 H 100 12/15/23 19:00 98 12/15/23 18:46 60 12/15/23 18:46 61 21 142/87 H 100 12/15/23 18:19 37.4 C 83 16 146/92 H 100 O2 Del Method 12/15/23 22:52 12/15/23 22:00 12/15/23 20:17 Room Air 12/15/23 19:00 Room Air 12/15/23 18:46 12/15/23 18:46 12/15/23 18:19 Room Air Laboratory Results Laboratory Results WBC 7.06 K/ul (4.8-10.8) 12/15/23 18:48 RBC 4.52 M/uL (4.70-6.10) L 12/15/23 18:48 Hgb 13.3 g/dl (14.0-18.0) L 12/15/23 18:48 Hct 38.3 % (42.0-52.0) L 12/15/23 18:48 MCV 84.7 fL (80.0-100.0) 12/15/23 18:48 MCH 29.4 pg (25.0-34.0) 12/15/23 18:48 MCHC 34.7 g/dL (32.0-36.0) 12/15/23 18:48 RDW Std Deviation 46.4 fL (36.4-46.3) H 12/15/23 18:48 RDW Coeff of Stone 15.0 % (11.5-14.5) H 12/15/23 18:48 Plt Count 310 K/uL (130-400) 12/15/23 18:48 MPV 10.1 fL (9.4-12.4) 12/15/23 18:48 Immature Gran % (Auto) 0.4 % 12/15/23 18:48 Neut % (Auto) 72.8 % 12/15/23 18:48 Lymph % (Auto) 16.9 % 12/15/23 18:48 [place] % (Auto) 9.6 % 12/15/23 18:48 Eos % (Auto) 0.0 % 12/15/23 18:48 Baso % (Auto) 0.3 % 12/15/23 18:48 Neut # (Auto) 5.14 K/uL (1.40-6.50) 12/15/23 18:48 Lymph # (Auto) 1.19 K/uL (1.20-3.40) L 12/15/23 18:48 [place] # (Auto) 0.68 K/uL (0.11-0.59) H 12/15/23 18:48 Eos # (Auto) 0.00 K/uL (0.00-0.50) 12/15/23 18:48 Baso # (Auto) 0.02 K/uL (0.00-0.20) 12/15/23 18:48 Immature Gran # (Auto) 0.03 K/uL (0.01-0.20) 12/15/23 18:48 PT 11.9 Seconds (9.0-12.0) 12/15/23 18:48 INR 1.1 (0.9-1.1) 12/15/23 18:48 Sodium 137 mmol/L (136-145) 12/15/23 18:48 Potassium 3.9 mmol/L (3.5-5.1) 12/15/23 18:48 Chloride 102 mmol/L (98-107) 12/15/23 18:48 Carbon Dioxide 24 mmol/L (21-32) 12/15/23 18:48 Anion Gap 11 (3-11) 12/15/23 18:48 BUN 9 mg/dl (6-23) 12/15/23 18:48 Creatinine 0.70 mg/dl (0.6-1.4) 12/15/23 18:48 Est Cr Clr Drug Dosing 84.5 ml/min 12/15/23 18:48 Est GFR ( Amer) 119.7 ml/min 12/15/23 18:48 Est GFR (Non-Af Amer) 103.3 ml/min 12/15/23 18:48 BUN/Creatinine Ratio 12.9 (10-20) 12/15/23 18:48 Glucose 115 mg/dl (70-99(Fasting)) H 12/15/23 18:48 Calcium 9.6 mg/dl (8.6-10.3) 12/15/23 18:48 Magnesium 1.7 mg/dl (1.7-2.4) 12/15/23 18:48 Total Bilirubin 0.9 mg/dl (0.2-1.0) 12/15/23 18:48 AST 20 U/L (13-39) 12/15/23 18:48 ALT 13 U/L (7-52) 12/15/23 18:48 Alkaline Phosphatase 101 U/L (34-104) 12/15/23 18:48 Troponin I High Sens 4.9 pg/ml (0-20) 12/15/23 18:48 Total Protein 7.1 gm/dl (6.0-8.3) 12/15/23 18:48 Albumin 4.4 gm/dl (3.4-5.0) 12/15/23 18:48 Globulin 2.7 gm/dl (2.5-4.0) 12/15/23 18:48 Albumin/Globulin Ratio 1.6 (0.9-2) 12/15/23 18:48 Lipase 62 U/L (11-82) 12/15/23 18:48 TSH 0.720 uIu/ml (0.300-4.500) 12/15/23 18:48 Adenovirus (PCR) Not Detected (NotDetected) 12/15/23 19:42 B. pertussis DNA (PCR) Not Detected (NotDetected) 12/15/23 19:42 B.parapertussis DNA PCR Not Detected (NotDetected) 12/15/23 19:42 C. pneumoniae DNA (PCR) Not Detected (NotDetected) 12/15/23 19:42 Coronavirus OC43 (PCR) Not Detected (NotDetected) 12/15/23 19:42 Coronavirus HKU1 (PCR) Not Detected (NotDetected) 12/15/23 19:42 Coronavirus 229E (PCR) Not Detected (NotDetected) 12/15/23 19:42 SARS-CoV-2 (PCR) Not Detected (NotDetected) 12/15/23 19:42 Coronavirus NL63 (PCR) Not Detected (NotDetected) 12/15/23 19:42 Human Metapneumovir PCR Not Detected (NotDetected) 12/15/23 19:42 Influenza Type A (PCR) Not Detected (NotDetected) 12/15/23 19:42 Influenza Type B (PCR) Not Detected (NotDetected) 12/15/23 19:42 M. pneumoniae (PCR) Not Detected (NotDetected) 12/15/23 19:42 Parainfluenza 1 (PCR) Not Detected (NotDetected) 12/15/23 19:42 Parainfluenza 2 (PCR) Not Detected (NotDetected) 12/15/23 19:42 Parainfluenza 3 (PCR) Not Detected (NotDetected) 12/15/23 19:42 Parainfluenza 4 (PCR) Not Detected (NotDetected) 12/15/23 19:42 RSV (PCR) Not Detected (NotDetected) 12/15/23 19:42 Entero/Rhino (PCR) Not Detected (NotDetected) 12/15/23 19:42 Diagnostic Findings EKG as per my interpretation : Rate 50, sinus bradycardia, normal axis, no ischemia
[2023-12-15] MEDS ORDERED: oxyCODONE HCL IR 5 MG TAB (IMMEDIATE RELEASE) PO PRN (23:42)
[2023-12-15] MEDS ORDERED: LORazepam 0.5 MG TAB PO PRN (23:42)
[2023-12-15] MEDS: LACTATED RINGER'S 1,000 ML IV ONE (23:52)
[2023-12-16] MEDS ORDERED: chlorproMAZINE HCL 25 MG TAB PO PRN (00:45)
[2023-12-16] MEDS ORDERED: PANTOprazole 40 MG TAB PO PRN (00:45)
[2023-12-16] MEDS: PROMETHAZINE HCL 6.25 MG in SODIUM CHLORIDE 0.9% 50 ML IV PRN (01:55)
[2023-12-16] MEDS: OLANZapine 5 MG TABLET PO SCH (02:13)
[2023-12-16 04:29] LABS: Basophils # (auto) 0.02 K/uL (0.00-0.20); Basophils % (auto) 0.3 %; Hematocrit (blood only) 35.2 % (42.0-52.0); Hemoglobin 12.2 g/dl (14.0-18.0); Immature Granulocytes # (auto) 0.03 K/uL (0.01-0.20); Immature Granulocytes % (auto) 0.4 %; Lymphocytes % (auto) 18.3 %; Mean Corpuscular Hgb Conc 34.7 g/dL (32.0-36.0); Mean Corpuscular Volume 86.7 fL (80.0-100.0); Mean Platelet Volume 9.8 fL (9.4-12.4); Monocytes # (auto) 0.79 K/uL (0.11-0.59); Monocytes % (auto) 10.3 %; Neutrophils # (auto) 5.42 K/uL (1.40-6.50); Neutrophils % (auto) 70.7 %; Platelet Count 265 K/uL (130-400); RDW Coefficient of Variation 15.1 % (11.5-14.5); Red Blood Count 4.06 M/uL (4.70-6.10); White Blood Count 7.66 K/ul (4.8-10.8)
[2023-12-16 04:35] LABS: BUN Creatinine Ratio 12.9 (10-20); Calcium 8.6 mg/dl (8.6-10.3); Creatinine Clr Calc Pharmacy 95.4 ml/min; Est GFR (African American) 125.8 ml/min; Est GFR (Non-African American) 108.6 ml/min; Potassium 3.5 mmol/L (3.5-5.1)
[2023-12-16 07:27] LABS: Estimated Average Glucose 103 mg/dl; Hemoglobin A1C 5.2 % (4.5-5.6)
[2023-12-16] MEDS: MAGNESIUM SULFATE / D5W 1 GM/100 ML BAG IV ONE (07:33)
--- NOTE | 2023-12-16 07:49 | XRay Report ---
CHEST AND ABDOMEN 2 VIEWS HISTORY: vomiting COMPARISON: Chest x-ray and abdomen pelvis CT 12/13/2023. FINDINGS: No pneumothorax. No pleural effusions. The lungs are clear. The heart is normal in size. A right jugular Port-A-Cath terminates in the SVC. No pneumoperitoneum. No pneumatosis. Nonobstructive bowel gas pattern. No renal or ureteral calculi. Suture material within the left upper quadrant IMPRESSION: No acute cardiopulmonary process. No evidence for bowel obstruction. ACT 112: Negative or not required by law. Electronically signed by: Tom Causey M.D. 12/16/2023 7:47 AM
[2023-12-16] MEDS: ONDANSETRON INJ 2 MG/ML 2 ML VIAL IV STA (08:38)
[2023-12-16] MEDS: ENOXAPARIN INJ 30 MG/0.3 ML SYR SQ SCH (08:55)
[2023-12-16] MEDS: CYANOCOBALAMIN (B-12) 500 MCG TABLET PO SCH (13:13)
[2023-12-16] MEDS: ESCITALOPRAM OXALATE 10 MG TAB PO SCH (13:13)
[2023-12-16] MEDS ORDERED: ONDANSETRON INJ 2 MG/ML 2 ML VIAL IV PRN (14:34)
[2023-12-16] MEDS: FOSAPREPITANT DIMEGLUMINE 150 MG in SODIUM CHLORIDE 0.9% 145 ML IV ONE (15:10)
[2023-12-16] MEDS: LACTATED RINGER'S 1,000 ML IV SCH (15:46)
--- NOTE | 2023-12-16 17:04 | Hospitalist Progress Note ---
Date of Service December 16, 2023 Assessment & Plan (1) Hypotension: Plan: Chronic nausea Hypotension likely due to dehydration and poor oral intake ? Due to viral illness -Abd X ray:No acute cardiopulmonary process. No evidence for bowel obstruction. -BioFire negative Antiemetics as needed Gentle IV fluids Advance diet as tolerated Started on Zyprexa last admission Will consider CT abdomen if needed Will give a dose of Emend given persistent nausea despite antiemetics H/O Esophageal cancer S/P Neoadjuvant chemotherapy/surgery Chronic anemia Hb at baseline Hyperglycemia HbA1c 5.2 Severe protein calorie malnutrition BMI 16 Dietitian consulted Past tobacco abuse as per record DVT Px: Lovenox SQ CODE STATUS Full code Admission and Anticipated Discharge Date Admission Date: December 15, 2023 Subjective Patient is seen and examined at bedside States having nausea but denies any vomiting Abdominal pain resolved per patient Denies any chest pain, dyspnea, dizziness Review of Systems Review of Systems: All systems reviewed & are unremarkable except as noted in Subjective Physical Exam Physical Exam: Physical Exam: Vitals signs as noted above General Appearance: Thin, frail, no apparent distress, chronically appearing Head: normocephalic, Atraumatic Eyes: normal inspection, EOMI Neck: supple, Trachea midline Respiratory/Chest: Normal breath sounds, CTA, No accessory muscle use Cardiovascular: S1, S2, No murmur,+ bradycardia Abdomen/GI:Soft, Non tender, Bowel sounds present, + vertical well-healed surgical scar Extremities/Musculoskeletal:normal inspection, no edema Neurologic/Psych:AAOX3, grossly no focal neurological deficits Skin: normal color, warm Results & Data Results & Data Vital Signs (Past 12 Hours) Vital Signs Temp Pulse Pulse Resp BP BP Pulse Ox 12/16/23 15:35 54 L 12/16/23 14:55 36.8 C 57 L 20 162/82 H 100 12/16/23 13:00 55 L 14 147/96 H 98 12/16/23 13:00 82 24 118/66 95 12/16/23 12:00 70 25 H 136/96 98 12/16/23 12:00 83 28 H 101/59 L 97 12/16/23 10:00 57 L 16 127/89 98 12/16/23 09:04 12/16/23 09:02 66 20 162/89 H 99 12/16/23 08:01 59 L 13 122/79 98 12/16/23 07:44 56 L 05/03/24 07:02 54 L 13 148/85 H 99 12/16/23 05:55 58 L 15 152/86 H 100 12/16/23 05:00 55 L 16 172/101 H 99 O2 Del Method 12/16/23 15:35 12/16/23 14:55 Room Air 12/16/23 13:00 Room Air 12/16/23 13:00 Room Air 12/16/23 12:00 Room Air 12/16/23 12:00 Room Air 12/16/23 10:00 Room Air 12/16/23 09:04 Room Air 12/16/23 09:02 Room Air 12/16/23 08:01 Room Air 12/16/23 07:44 12/16/23 07:02 Room Air 12/16/23 05:55 Room Air 12/16/23 05:00 Room Air Laboratory Results Short CBC 12/15/23 12/16/23 Range/Units 18:48 03:54 WBC 7.06 7.66 (4.8-10.8) K/ul Hgb 13.3 L 12.2 L (14.0-18.0) g/dl Hct 38.3 L 35.2 L (42.0-52.0) % Plt Count 310 265 (130-400) K/uL BMP 12/15/23 12/16/23 18:48 03:54 Sodium 137 136 Potassium 3.9 3.5 Chloride 102 104 Carbon Dioxide 24 24 BUN 9 8 Creatinine 0.70 0.62 Glucose 115 H 113 H Calcium 9.6 8.6 Liver Function 12/15/23 Range/Units 18:48 Total Bilirubin 0.9 (0.2-1.0) mg/dl AST 20 (13-39) U/L ALT 13 (7-52) U/L Alkaline Phosphatase 101 (34-104) U/L Albumin 4.4 (3.4-5.0) gm/dl
[2023-12-16 18:35] LABS: Appearance Urine Cloudy (Clear); Bacteria Urine Automated None Seen (None Seen); Bilirubin Urine Negative (Negative); Blood Urine Negative (Negative); Cast Urine Automated 0-2 /lpf (0-2); Color Urine Yellow; Epithelial Cell Urine Auto 0-2 /hpf (0-2); Glucose Urine UA Negative (Negative); Ketones Urine 1+ (Negative); Leukocyte Esterase Urine Negative (Negative); Nitrite Urine Negative (Negative); Protein Urine Negative (Negative); RBC Urine Automated 0-2 /hpf (0-2); Specific Gravity Urine 1.012 (1.000-1.030); Urobilinogen Urine Negative (Negative); WBC Urine Automated 0-5 /hpf (0-5); pH Urine 7.5 (4.5-7.5)
[2023-12-17 06:37] LABS: Hemoglobin 11.4 g/dl (14.0-18.0); Mean Corpuscular Hemoglobin 29.5 pg (25.0-34.0); Mean Corpuscular Hgb Conc 33.5 g/dL (32.0-36.0); Mean Corpuscular Volume 87.9 fL (80.0-100.0); Platelet Count 245 K/uL (130-400); RDW Coefficient of Variation 14.8 % (11.5-14.5); RDW Standard Deviation 47.4 fL (36.4-46.3); Red Blood Count 3.87 M/uL (4.70-6.10); White Blood Count 7.21 K/ul (4.8-10.8)
[2023-12-17 06:56] LABS: Calcium 8.6 mg/dl (8.6-10.3); Creatinine Clr Calc Pharmacy 85.7 ml/min; Est GFR (African American) 119.7 ml/min; Est GFR (Non-African American) 103.3 ml/min; Magnesium 1.9 mg/dl (1.7-2.4); Potassium 3.7 mmol/L (3.5-5.1)
[2023-12-17] MEDS: ENOXAPARIN INJ 40 MG/0.4 ML SYR SQ SCH (08:51)
[2023-12-17] MEDS ORDERED: ENOXAPARIN INJ 30 MG/0.3 ML SYR SQ SCH (09:00)
--- NOTE | 2023-12-17 12:31 | Hospitalist Progress Note ---
Date of Service December 17, 2023 Assessment & Plan (1) Hypotension: Plan: Chronic nausea Hypotension likely due to dehydration and poor oral intake ? Due to viral illness -Abd X ray:No acute cardiopulmonary process. No evidence for bowel obstruction. -BioFire negative Antiemetics as needed Received a dose of Emend received IV fluids Clinically improved Advanced to regular diet H/O Esophageal cancer S/P Neoadjuvant chemotherapy/surgery Chronic anemia Hb at baseline Hyperglycemia HbA1c 5.2 Severe protein calorie malnutrition BMI 16 Dietitian consulted Past tobacco abuse as per record DVT Px: Lovenox SQ CODE STATUS Full code Disposition Home Admission and Anticipated Discharge Date Admission Date: December 15, 2023 Subjective Patient is seen and examined at bedside States feeling well today Nausea, abdominal pain resolved Tolerating diet Denies any chest pain, dyspnea, dizziness Prefers to be discharged home today Review of Systems Review of Systems: All systems reviewed & are unremarkable except as noted in Subjective Physical Exam Physical Exam: Physical Exam: Vitals signs as noted above General Appearance: Thin, frail, no apparent distress, chronically appearing Head: normocephalic, Atraumatic Eyes: normal inspection, EOMI Neck: supple, Trachea midline Respiratory/Chest: Normal breath sounds, CTA, No accessory muscle use Cardiovascular: S1, S2, No murmur,+ bradycardia Abdomen/GI:Soft, Non tender, Bowel sounds present, + vertical well-healed surgical scar Extremities/Musculoskeletal:normal inspection, no edema Neurologic/Psych:AAOX3, grossly no focal neurological deficits Skin: normal color, warm Results & Data Results & Data Vital Signs (Past 12 Hours) Vital Signs Temp Pulse Pulse Resp BP Pulse Ox O2 Del Method 12/17/23 11:55 36.8 C 60 16 139/81 100 Room Air 12/17/23 11:04 49 L 12/17/23 07:43 36.5 C 49 L 18 111/70 98 Room Air 12/17/23 03:50 36.7 C 56 L 16 109/70 97 Room Air Laboratory Results Short CBC 12/17/23 Range/Units 05:57 WBC 7.21 (4.8-10.8) K/ul Hgb 11.4 L (14.0-18.0) g/dl Hct 34.0 L (42.0-52.0) % Plt Count 245 (130-400) K/uL BMP 12/17/23 05:57 Sodium 136 Potassium 3.7 Chloride 103 Carbon Dioxide 29 BUN 7 Creatinine 0.70 Glucose 100 H Calcium 8.6 Urine 12/16/23 Range/Units 15:00 Urine Color Yellow Urine Appearance Cloudy A (Clear) Urine pH 7.5 (4.5-7.5) Ur Specific [place] 1.012 (1.000-1.030) Urine Protein Negative (Negative) Urine Glucose (UA) Negative (Negative)
--- NOTE | 2023-12-17 12:36 | Discharge Summary ---
Date of Service December 17, 2023 Admission HPI Per Admitting Provider History obtained from patient and records. Medical history significant for esophageal cancer status post neoadjuvant chemotherapy/surgery, chronic anemia (baseline hemoglobin 12-13), history trigeminal neuralgia status post surgery, past tobacco abuse. Last [facility] confinement September 2023 for nausea/vomiting symptoms, 2 days ago, patient noted achy epigastric pain associated with nausea vomiting symptoms. No diarrhea. No chest pain, no SOB. Possible sick contact at home. Patient consulted ER, admission offered as per patient despite unremarkable workup but patient opted to go home. Symptoms initially better but recurred today. Abdominal pain not worse than a few days ago. Patient directed to ER by PCP's office. Lowest SBP of 80s noted at the ER. Medical History as above Surgical History : Vascular procedure, cranial nerve exploration, total gastrectomy with esophagoenterostomy Family History : Stroke Personal/Social history : Past tobacco abuse, occasional EtOH intake, retired [employer] employee Principal Diagnosis Chronic nausea And dehydration Discharge Data Allergies Allergy/AdvReac Type Severity Reaction Status Date / Time carbamazepine [From Tegretol] Allergy Mild Rash Verified 12/15/23 20:18 Consultations 12/15/23 21:53 ED Decision to Admit Stat Procedures Performed Laboratory Results WBC 7.21 K/ul (4.8-10.8) 12/17/23 05:57 RBC 3.87 M/uL (4.70-6.10) L 12/17/23 05:57 Hgb 11.4 g/dl (14.0-18.0) L 12/17/23 05:57 Hct 34.0 % (42.0-52.0) L 12/17/23 05:57 MCV 87.9 fL (80.0-100.0) 12/17/23 05:57 MCH 29.5 pg (25.0-34.0) 12/17/23 05:57 MCHC 33.5 g/dL (32.0-36.0) 12/17/23 05:57 RDW Std Deviation 47.4 fL (36.4-46.3) H 12/17/23 05:57 RDW Coeff of Stone 14.8 % (11.5-14.5) H 12/17/23 05:57 Plt Count 245 K/uL (130-400) 12/17/23 05:57 MPV 10.0 fL (9.4-12.4) 12/17/23 05:57 Immature Gran % (Auto) 0.4 % 12/16/23 03:54 Neut % (Auto) 70.7 % 12/16/23 03:54 Lymph % (Auto) 18.3 % 12/16/23 03:54 [place] % (Auto) 10.3 % 12/16/23 03:54 Eos % (Auto) 0.0 % 12/16/23 03:54 Baso % (Auto) 0.3 % 12/16/23 03:54 Neut # (Auto) 5.42 K/uL (1.40-6.50) 12/16/23 03:54 Lymph # (Auto) 1.40 K/uL (1.20-3.40) 12/16/23 03:54 [place] # (Auto) 0.79 K/uL (0.11-0.59) H 12/16/23 03:54 Eos # (Auto) 0.00 K/uL (0.00-0.50) 12/16/23 03:54 Baso # (Auto) 0.02 K/uL (0.00-0.20) 12/16/23 03:54 Immature Gran # (Auto) 0.03 K/uL (0.01-0.20) 12/16/23 03:54 PT 11.9 Seconds (9.0-12.0) 12/15/23 18:48 INR 1.1 (0.9-1.1) 12/15/23 18:48 Sodium 136 mmol/L (136-145) 12/17/23 05:57 Potassium 3.7 mmol/L (3.5-5.1) 12/17/23 05:57 Chloride 103 mmol/L (98-107) 12/17/23 05:57 Carbon Dioxide 29 mmol/L (21-32) 12/17/23 05:57 Anion Gap 4 (3-11) 12/17/23 05:57 BUN 7 mg/dl (6-23) 12/17/23 05:57 Creatinine 0.70 mg/dl (0.6-1.4) 12/17/23 05:57 Est Cr Clr Drug Dosing 85.7 ml/min 12/17/23 05:57 Est GFR ( Amer) 119.7 ml/min 12/17/23 05:57 Est GFR (Non-Af Amer) 103.3 ml/min 12/17/23 05:57 BUN/Creatinine Ratio 10.0 (10-20) 12/17/23 05:57 Glucose 100 mg/dl (70-99(Fasting)) H 12/17/23 05:57 Estimat Average Glucose 103 mg/dl 12/16/23 03:54 Hemoglobin A1c 5.2 % (4.5-5.6) 12/16/23 03:54 Calcium 8.6 mg/dl (8.6-10.3) 12/17/23 05:57 Magnesium 1.9 mg/dl (1.7-2.4) 12/17/23 05:57 Total Bilirubin 0.9 mg/dl (0.2-1.0) 12/15/23 18:48 AST 20 U/L (13-39) 12/15/23 18:48 ALT 13 U/L (7-52) 12/15/23 18:48 Alkaline Phosphatase 101 U/L (34-104) 12/15/23 18:48 Troponin I High Sens 4.9 pg/ml (0-20) 12/15/23 18:48 Total Protein 7.1 gm/dl (6.0-8.3) 12/15/23 18:48 Albumin 4.4 gm/dl (3.4-5.0) 12/15/23 18:48 Globulin 2.7 gm/dl (2.5-4.0) 12/15/23 18:48 Albumin/Globulin Ratio 1.6 (0.9-2) 12/15/23 18:48 Lipase 62 U/L (11-82) 12/15/23 18:48 TSH 0.720 uIu/ml (0.300-4.500) 12/15/23 18:48 Urine Color Yellow 12/16/23 15:00 Urine Appearance Cloudy (Clear) A 12/16/23 15:00 Urine pH 7.5 (4.5-7.5) 12/16/23 15:00 Ur Specific [place] 1.012 (1.000-1.030) 12/16/23 15:00 Urine Protein Negative (Negative) 12/16/23 15:00 Urine Glucose (UA) Negative (Negative) 12/16/23 15:00 Urine Ketones 1+ (Negative) H 12/16/23 15:00 Urine Blood Negative (Negative) 12/16/23 15:00 Urine Nitrite Negative (Negative) 12/16/23 15:00 Urine Bilirubin Negative (Negative) 12/16/23 15:00 Urine Urobilinogen Negative (Negative) 12/16/23 15:00 Ur Leukocyte Esterase Negative (Negative) 12/16/23 15:00 Urine WBC (Auto) 0-5 /hpf (0-5) 12/16/23 15:00 Urine RBC (Auto) 0-2 /hpf (0-2) 12/16/23 15:00 U Hyaline Cast (Auto) 0-2 /lpf (0-2) 12/16/23 15:00 U Epithel Cells (Auto) 0-2 /hpf (0-2) 12/16/23 15:00 Urine Bacteria (Auto) None Seen (None Seen) 12/16/23 15:00 Adenovirus (PCR) Not Detected (NotDetected) 12/15/23 19:42 B. pertussis DNA (PCR) Not Detected (NotDetected) 12/15/23 19:42 B.parapertussis DNA PCR Not Detected (NotDetected) 12/15/23 19:42 C. pneumoniae DNA (PCR) Not Detected (NotDetected) 12/15/23 19:42 Coronavirus OC43 (PCR) Not Detected (NotDetected) 12/15/23 19:42 Coronavirus HKU1 (PCR) Not Detected (NotDetected) 12/15/23 19:42 Coronavirus 229E (PCR) Not Detected (NotDetected) 12/15/23 19:42 SARS-CoV-2 (PCR) Not Detected (NotDetected) 12/15/23 19:42 Coronavirus NL63 (PCR) Not Detected (NotDetected) 12/15/23 19:42 Human Metapneumovir PCR Not Detected (NotDetected) 12/15/23 19:42 Influenza Type A (PCR) Not Detected (NotDetected) 12/15/23 19:42 Influenza Type B (PCR) Not Detected (NotDetected) 12/15/23 19:42 M. pneumoniae (PCR) Not Detected (NotDetected) 12/15/23 19:42 Parainfluenza 1 (PCR) Not Detected (NotDetected) 12/15/23 19:42 Parainfluenza 2 (PCR) Not Detected (NotDetected) 12/15/23 19:42 Parainfluenza 3 (PCR) Not Detected (NotDetected) 12/15/23 19:42 Parainfluenza 4 (PCR) Not Detected (NotDetected) 12/15/23 19:42 RSV (PCR) Not Detected (NotDetected) 12/15/23 19:42 Entero/Rhino (PCR) Not Detected (NotDetected) 12/15/23 19:42 Impressions Chest/Abdomen X-ray 12/15/23 20:06 CHEST AND ABDOMEN 2 VIEWS HISTORY: vomiting COMPARISON: Chest x-ray and abdomen pelvis CT 12/13/2023. FINDINGS: No pneumothorax. No pleural effusions. The lungs are clear. The heart is normal in size. A right jugular Port-A-Cath terminates in the SVC. No p neumoperitoneum. No pneumatosis. Nonobstructive bowel gas pattern. No renal or ureteral calculi. Suture material within the left upper quadrant IMPRESSION: No acute cardiopulmonary process. No evidence for bowel obstruction. ACT 112: Negative or not required by law. Electronically signed by: Tom Causey M.D. 12/16/2023 7:47 AM Hospital Course (1) Hypotension: Chronic nausea Hypotension likely due to dehydration and poor oral intake ? Due to viral illness -Abd X ray:No acute cardiopulmonary process. No evidence for bowel obstruction. -BioFire negative Antiemetics as needed Received a dose of Emend received IV fluids Clinically improved Advanced to regular diet H/O Esophageal cancer S/P Neoadjuvant chemotherapy/surgery Chronic anemia Hb at baseline Hyperglycemia HbA1c 5.2 Severe protein calorie malnutrition BMI 16 Dietitian consulted Past tobacco abuse as per record DVT Px: Lovenox SQ CODE STATUS Full code Disposition Home Total Time Total Time Spent Total Time Spent (In Minutes): 55 minutes Discharge Plan Discharge Items Patient Disposition: Home - Self-Care Reason For Visit: HYPOTENSION Discharge Diagnosis: Chronic nausea And dehydration Activity: Per Instructions section Exercise/Sports: Gradually increase as tolerated Non-emergency contact: Primary Care Provider Call non-emergency contact if: you have any medication questions, your symptoms worsen, your pain is concerning for you and you have a fever Follow-up/Referrals: Thaddeus Solis MD [Primary Care Provider] - Diet: Regular Addtl Attending Provider Instructions: Follow-up with your primary care physician Dr. Solis in 1 week Seek immediate medical attention if your symptoms reoccur or worsen Please take all medications as instructed on discharge list below. Please call if you have any questions or problems. You can reach a [facility] hospitalist on duty at [facility] 24 hours a day by calling [phone] Pending Studies at Discharge: No Stand-Alone Forms: My [facility] DocsInk, Smoking Cessation Medications and DC Order Prescriptions: Continued ondansetron HCl 8 mg tablet 8 mg PO Q8 PRN (Reason: Nausea) chlorpromazine 25 mg tablet 25 mg PO Q6 PRN (Reason: .nausea or hiccups) prochlorperazine maleate [Compazine] 10 mg tablet 10 mg PO Q6 PRN (Reason: Nausea) morphine concentrate 100 mg/5 mL (20 mg/mL) solution 5 mg PO Q4 PRN (Reason: Pain) Rx Instructions: per he takes 0.25 ml cyanocobalamin (vitamin B-12) [Vitamin B-12] 1,000 mcg Tablet 1,000 mcg PO QDL lidocaine-prilocaine 2.5-2.5 % Cream 1 applic topical DIRECTED PRN (Reason: PORT ACCESS.) Rx Instructions: Apply to skin over mediport & cover 1 hr prior to accessing. lorazepam 0.5 mg tablet 0.5 mg PO Q6 PRN (Reason: .Anxiety/sleep) oxycodone 5 mg tablet 5 mg PO UD PRN (Reason: Pain) Rx Instructions: has it filled if he needs it. pantoprazole 40 mg tablet,delayed release (DR/EC) 40 mg PO BID PRN (Reason: Other) cholecalciferol (vitamin D3) [Vitamin D3] 25 mcg (1,000 unit) Capsule 0 mcg PO DAILY Rx Instructions: PT'S SPOUSE UNSURE OF STRENGTH escitalopram oxalate 10 mg tablet 10 mg PO DAILY Hold Instructions: Resume on 10/07/23. Patient has not been taking. Please readdress with PCP at follow up. olanzapine 5 mg Tablet 5 mg PO HS Qty: 30 0RF Rx Instructions: Take every night at bedtime for nausea Discharge Orders: Discharge Order (Routine); Ordered 12/17/23 Ordered By: Saleem Evans Admission Data Admit Date/Time: 12/15/23 23:42 Attending Provider: Saleem Evans Admit Provider: Praveen Garibay Primary Care Provider: Thaddeus Solis Other Providers: Praveen Garibay
--- NOTE | 2023-12-18 21:34 | Electrocardiogram Report ---
Test Reason : Blood Pressure : / mmHG Vent. Rate : 052 BPM Atrial Rate : 052 BPM P-R Int : 112 ms QRS Dur : 086 ms QT Int : 466 ms P-R-T Axes : 052 061 070 degrees QTc Int : 433 ms Sinus bradycardia Otherwise normal ECG When compared with ECG of 13-DEC-2023 22:06, (unconfirmed) No significant change was found Confirmed by Hardeep Rodrigues ([id number]) on 12/18/2023 9:33:30 PM Referred By: Thaddeus Solis Confirmed By:Hardeep Rodrigues
== END 2023-12-17 13:56 | disposition home or self-care (01) ==
LOC: ED 18:15 → EDINP 18:15 → 2N 12-16 14:13

== ENCOUNTER 2023-12-21 17:37 | Observation (INO) ==
--- NOTE | 2023-12-21 18:50 | Emergency Department Note ---
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 He notes he is unable to keep anything down. He has persistent dry heaving. Denies any dysuria, urgency, or frequency. Additional history provided by who notes that he had the same symptoms earlier last week and was admitted for several days. He does not get TPN. ADDITIONAL HISTORY OBTAINED: Per HPI Chronic Medical/Social Conditions Affecting Care: Per HPI PAST MEDICAL HISTORY:See Below PAST SURGICAL HISTORY:See Below FAMILY HISTORY:See Below SOCIAL HISTORY:See Below HOME MEDICATIONS:See Below ALLERGIES:See Below VITALS:See Below PHYSICAL EXAMINATION: GENERAL: Sitting up in bed, alert, cachectic, disheveled EYE EXAM: normal conjunctiva. PERRL and EOM's grossly intact. OROPHARYNX: mucous membranes are moist NECK: supple, no nuchal rigidity, no adenopathy, non-tender LUNGS: Clear to auscultation. Normal chest wall mechanics HEART: no murmurs, S1 normal and S2 normal ABDOMEN: abdomen soft, old midline incision with tenderness in epigastric region, normo-active bowel sounds, no masses, no rebound or guarding. UPPER EXTREMITIES: upper extremities are grossly normal. LOWER EXTREMITIES: No pitting edema. NEURO EXAM: Normal sensorium, cranial nerves II-XII grossly intact, normal speech, no gross weakness of arms, no gross weakness of legs. No drift. Finger to nose intact. Gross sensation intact. MEDICAL DECISION MAKING: Patient is a 58-year-old male who presents ER for the above-stated complaint. IV was established blood work was obtained. Labs show no significant leukocytosis or anemia. BMP with mild hypokalemia 3.2. He did vomit back of the oral potassium consequently was given IV. LFTs bilirubin lipase was unremarkable. UA with small amount of ketones suggesting dehydration. CT abdomen pelvis showed no acute pathology. He was given IV fluids Zofran Reglan and Phenergan and did have improvement. As he still had some persistent intermittent vomiting. He was discussed with the hospitalist for further evaluation management treatment. Consults/Care Managements Discussions: Per MDM Triage Nursing notes reviewed. Limited review of prior medical records performed Vital Signs: reviewed and remarkable for no significant abnormalities Differential diagnosis: Differential diagnoses includes but is not limited to gastritis, peptic ulcer disease, GERD, gallbladder disease, pancreatitis, small bowel obstruction, appendicitis, diverticulitis, hernia, urinary tract infection, torsion, perforation, trauma, infectious. ER treatment provided: See below Diagnostics interpreted by me include EKG and cardiac monitoring as listed below: -Cardiac Monitoring: An order was placed for continuous cardiac monitoring. The monitor shows a rate of 90 with sinus rhythm. -ECG: none -Laboratory studies:Interpreted by me as stated above in MDM and shown below. Imaging studies: Xrays: As interpreted by me:none CTs show: CT of the pelvis per my preliminary interpretation showed no obvious bowel obstruction CT abdomen pelvis per radiology showed no acute pathology Procedures:none Critical Care: None Past Med/Surg History Medical History Advanced care planning/counseling discussion Weakness generalized Palliative care by specialist Cancer related pain Refractory nausea and vomiting Dehydration Nausea and vomiting History of recent blood transfusion 05/02/[address] 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 Edmonds/[facility] Eduardo Hypomagnesemia Vomiting and diarrhea Iron deficiency received blood transfusion 05/02/[address] [facility] Surgical History History of colonoscopy History of esophagogastroduodenoscopy (EGD) History of tooth extraction partial upper and lower denture History of ERCP 04/2023 @ [facility] Eduardo History of vascular access device A port--power port in placed on right side of chest Family History Other No family history of adverse response to anesthesia Social History Smoking Status: Former smoker Second Hand Exposure: No; Do You Dip or Chew Tobacco: No; Hx Alcohol Use: Yes Alcohol type: beer Hx Substance Use: No Preferred Language: Maori Communication Ability: Effective Tutoring Clinician Required: No Beliefs That Will Affect Care: None Current Living Situation: Spouse Feels Safe at Home: Yes Assistive Devices: None Allergies Allergies Allergy/AdvReac Type Severity Reaction Status Date / Time carbamazepine [From Tegretol] Allergy Mild Rash Verified 12/15/23 20:18 Home Meds Home Medications Medication Instructions Recorded Confirmed chlorpromazine 25 mg tablet 25 mg PO Q6H PRN Hiccups 12/22/23 12/22/23 cholecalciferol (vitamin D3) 25 25 mcg PO DAILY 12/22/23 12/22/23 mcg (1,000 unit) tablet (Vitamin D3) cyanocobalamin (vitamin B-12) 1,000 mcg PO DAILY 12/22/23 12/22/23 1,000 mcg tablet escitalopram oxalate 10 mg tablet 10 mg PO DAILY 12/22/23 12/22/23 lidocaine-prilocaine 2.5 %-2.5 % 1 applic topical DIRECTED 12/22/23 12/22/23 topical cream lorazepam 0.5 mg tablet 0.5 mg PO Q6H PRN Anxiety 12/22/23 12/22/23 morphine concentrate 100 mg/5 mL 5 mg PO Q4H PRN Pain 12/22/23 12/22/23 (20 mg/mL) oral solution olanzapine 5 mg tablet 5 mg PO HS 12/22/23 12/22/23 ondansetron HCl 8 mg tablet 8 mg PO TID PRN Nausea And Vomiting 12/22/23 12/22/23 oxycodone 5 mg tablet 5 mg PO DAILY PRN Pain (Scale 12/22/23 12/22/23 Score 7-10) pantoprazole 40 mg tablet,delayed 40 mg PO BID PRN Heartburn 12/22/23 12/22/23 release prochlorperazine maleate 10 mg 10 mg PO Q6H PRN Nausea And 12/22/23 12/22/23 tablet Vomiting Results & Data (ED) Vital Signs Vital Signs - 24 hr 12/21/23 17:24 12/21/23 18:48 12/21/23 18:48 Temperature 36.7 C 36.8 C Temperature Source Oral Oral Pulse Rate 94 H 97 H Pulse Rate [Apical] 97 H Pulse Rate from SpO2 Sensor Pulse Rhythm Regular Regular Pulse Rhythm [Apical] Regular Pulse Strength Normal Pulse Strength [Apical] Normal Respiratory Rate 20 18 18 Respiratory Effort / Characteristics Non-Labored Spontaneous Non-Labored Spontaneous Respiratory Depth Normal Normal Respiratory Pattern Regular Regular Blood Pressure Blood Pressure [Right Arm] 174/104 H Blood Pressure Mean Blood Pressure Mean [Right Arm] 127 Pulse Oximetry 97 97 100 Oxygen Delivery Method Room Air Room Air Room Air Sepsis Recent Fever Within 48 Hours No Sepsis New/Unexplained Change in Mental Status No Sepsis Action Taken by Nursing No Action Required 12/21/23 19:15 12/21/23 19:30 12/21/23 20:14 Temperature Temperature Source Pulse Rate 65 71 Pulse Rate [Apical] 83 Pulse Rate from SpO2 Sensor 65 72 Pulse Rhythm Pulse Rhythm [Apical] Regular Pulse Strength Pulse Strength [Apical] Normal Respiratory Rate 24 7 L 22 Respiratory Effort / Characteristics Non-Labored Respiratory Depth Normal Respiratory Pattern Blood Pressure 177/103 H 166/102 H Blood Pressure [Right Arm] 188/115 H Blood Pressure Mean 127 123 Blood Pressure Mean [Right Arm] 139 Pulse Oximetry 100 98 100 Oxygen Delivery Method Room Air Sepsis Recent Fever Within 48 Hours Sepsis New/Unexplained Change in Mental Status Sepsis Action Taken by Nursing 12/21/23 20:15 12/21/23 20:30 12/21/23 21:00 Temperature Temperature Source Pulse Rate Pulse Rate [Apical] Pulse Rate from SpO2 Sensor 77 62 66 Pulse Rhythm Pulse Rhythm [Apical] Pulse Strength Pulse Strength [Apical] Respiratory Rate Respiratory Effort / Characteristics Respiratory Depth Respiratory Pattern Blood Pressure 188/115 H 172/106 H 172/107 H Blood Pressure [Right Arm] Blood Pressure Mean 139 128 128 Blood Pressure Mean [Right Arm] Pulse Oximetry 100 99 99 Oxygen Delivery Method Sepsis Recent Fever Within 48 Hours Sepsis New/Unexplained Change in Mental Status Sepsis Action Taken by Nursing 12/21/23 21:25 12/21/23 22:00 12/21/23 22:30 Temperature Temperature Source Pulse Rate 76 68 Pulse Rate [Apical] Pulse Rate from SpO2 Sensor 89 Pulse Rhythm Pulse Rhythm [Apical] Pulse Strength Pulse Strength [Apical] Respiratory Rate 16 13 Respiratory Effort / Characteristics Respiratory Depth Respiratory Pattern Blood Pressure 169/110 H 158/99 H 125/81 Blood Pressure [Right Arm] Blood Pressure Mean 129 118 95 Blood Pressure Mean [Right Arm] Pulse Oximetry 98 Oxygen Delivery Method Sepsis Recent Fever Within 48 Hours Sepsis New/Unexplained Change in Mental Status Sepsis Action Taken by Nursing 12/21/23 23:00 12/21/23 23:30 12/22/23 00:00 Temperature Temperature Source Pulse Rate 62 65 67 Pulse Rate [Apical] Pulse Rate from SpO2 Sensor Pulse Rhythm Pulse Rhythm [Apical] Pulse Strength Pulse Strength [Apical] Respiratory Rate 16 17 12 Respiratory Effort / Characteristics Respiratory Depth Respiratory Pattern Blood Pressure 156/93 H 145/92 H 150/94 H Blood Pressure [Right Arm] Blood Pressure Mean 114 109 112 Blood Pressure Mean [Right Arm] Pulse Oximetry Oxygen Delivery Method Sepsis Recent Fever Within 48 Hours Sepsis New/Unexplained Change in Mental Status Sepsis Action Taken by Nursing 12/22/23 00:30 Temperature Temperature Source Pulse Rate 72 Pulse Rate [Apical] Pulse Rate from SpO2 Sensor Pulse Rhythm Pulse Rhythm [Apical] Pulse Strength Pulse Strength [Apical] Respiratory Rate 20 Respiratory Effort / Characteristics Respiratory Depth Respiratory Pattern Blood Pressure 165/105 H Blood Pressure [Right Arm] Blood Pressure Mean 125 Blood Pressure Mean [Right Arm] Pulse Oximetry Oxygen Delivery Method Sepsis Recent Fever Within 48 Hours Sepsis New/Unexplained Change in Mental Status Sepsis Action Taken by Nursing Laboratory Data 12/21/23 18:42 12/21/23 18:42 Lab Results 12/21/23 12/21/23 Range/Units 18:42 20:09 WBC 6.62 (4.8-10.8) K/ul RBC 4.25 L (4.70-6.10) M/uL Hgb 12.6 L (14.0-18.0) g/dl Hct 36.7 L (42.0-52.0) % MCV 86.4 (80.0-100.0) fL MCH 29.6 (25.0-34.0) pg MCHC 34.3 (32.0-36.0) g/dL RDW Std Deviation 45.9 (36.4-46.3) fL RDW Coeff of Stone 14.5 (11.5-14.5) % Plt Count 221 (130-400) K/uL MPV 10.3 (9.4-12.4) fL Immature Gran % (Auto) 0.5 % Neut % (Auto) 75.5 % Lymph % (Auto) 14.2 % [place] % (Auto) 9.1 % Eos % (Auto) 0.2 % Baso % (Auto) 0.5 % Neut # (Auto) 5.01 (1.40-6.50) K/uL Lymph # (Auto) 0.94 L (1.20-3.40) K/uL [place] # (Auto) 0.60 H (0.11-0.59) K/uL Eos # (Auto) 0.01 (0.00-0.50) K/uL Baso # (Auto) 0.03 (0.00-0.20) K/uL Immature Gran # (Auto) 0.03 (0.01-0.20) K/uL Sodium 139 (136-145) mmol/L Potassium 3.2 L (3.5-5.1) mmol/L Chloride 107 (98-107) mmol/L Carbon Dioxide 21 (21-32) mmol/L Anion Gap 11 (3-11) BUN 10 (6-23) mg/dl Creatinine 0.67 (0.6-1.4) mg/dl Est Cr Clr Drug Dosing 110.8 ml/min Est GFR ( Amer) 121.9 ml/min Est GFR (Non-Af Amer) 105.2 ml/min BUN/Creatinine Ratio 14.9 (10-20) Glucose 114 H (70-99(Fasting)) mg/dl Calcium 8.8 (8.6-10.3) mg/dl Total Bilirubin 0.7 (0.2-1.0) mg/dl AST 15 (13-39) U/L ALT 10 (7-52) U/L Alkaline Phosphatase 80 (34-104) U/L Total Protein 6.6 (6.0-8.3) gm/dl Albumin 4.0 (3.4-5.0) gm/dl Globulin 2.6 (2.5-4.0) gm/dl Albumin/Globulin Ratio 1.5 (0.9-2) Lipase 20 (11-82) U/L Urine Color Yellow Urine Appearance Cloudy A (Clear) Urine pH 6.5 (4.5-7.5) Ur Specific [place] 1.021 (1.000-1.030) Urine Protein Negative (Negative) Urine Glucose (UA) Negative (Negative) Urine Ketones 2+ H (Negative) Urine Blood Negative (Negative) Urine Nitrite Negative (Negative) Urine Bilirubin Negative (Negative) Urine Urobilinogen Negative (Negative) Ur Leukocyte Esterase Negative (Negative) Urine WBC (Auto) 0-5 (0-5) /hpf Urine RBC (Auto) 0-2 (0-2) /hpf U Hyaline Cast (Auto) 0-2 (0-2) /lpf U Epithel Cells (Auto) 0-2 (0-2) /hpf Urine Bacteria (Auto) None Seen (None Seen) Calcium Oxalate Crystal Present A (None Prsent) Urine Mucus Present A (None Prsent) Administered Medications Potassium Chloride (K Ken / Wtr) 10 meq in 100 mls @ 100 mls/hr IV Q1H GREG Stop: 12/22/23 01:44 Last Admin: 12/22/23 01:03 Dose: 100 mls/hr Documented By: Infusion: 12/22/23 00:40 Dose: Infused Documented By: Admin: 12/21/23 23:40 Dose: 100 mls/hr Documented By: MARION Discontinued Medications Sodium Chloride (Nss) 1,000 mls @ 999 mls/hr IV .Q1H1M ONE Stop: 12/21/23 19:39 Last Infusion: 12/21/23 20:13 Dose: Infused Documented By: Admin: 12/21/23 18:57 Dose: 999 mls/hr Documented By: IVANNA Sodium Chloride (Nss) 1,000 mls @ 999 mls/hr IV .Q1H1M GREG Stop: 12/21/23 21:00 Last Infusion: 12/21/23 21:55 Dose: Infused Documented By: Admin: 12/21/23 20:52 Dose: 999 mls/hr Documented By: Infusion: 12/21/23 20:52 Dose: Infused Documented By: Admin: 12/21/23 20:13 Dose: 999 mls/hr Documented By: MARION Promethazine HCl (Phenergan) 25 mg in 51 mls @ 204 mls/hr IV NOW STA Stop: 12/21/23 21:45 Last Infusion: 12/21/23 21:55 Dose: Infused Documented By: Admin: 12/21/23 21:38 Dose: 204 mls/hr Documented By: MARION Ioversol (Optiray 320 100ml) 92 ml IV ONCE ONE Stop: 12/21/23 19:38 Last Admin: 12/21/23 19:37 Dose: 92 ml Documented By: ZAINA Metoclopramide HCl (Metoclopramide Hcl Inj 5 Mg/Ml 2 Ml Vial) 10 mg IV NOW STA Stop: 12/21/23 20:47 Last Admin: 12/21/23 20:52 Dose: 10 mg Documented By: MARION Morphine Sulfate (Morphine Sulfate 4 Mg/Ml 1 Ml Carp\Vial) 4 mg IV NOW STA Stop: 12/21/23 18:47 Last Admin: 12/21/23 18:57 Dose: 4 mg Documented By: IVANNA Ondansetron HCl (Ondansetron Inj 2 Mg/Ml 2 Ml Vial) 4 mg IV NOW STA Stop: 12/21/23 18:40 Last Admin: 12/21/23 18:57 Dose: 4 mg Documented By: IVANNA Potassium Chloride (Potassium Chloride 20 Meq/15 Ml Udc) 20 meq PO NOW STA Stop: 12/21/23 22:51 Last Admin: 12/21/23 22:58 Dose: 20 meq Documented By: MARION Promethazine HCl (Phenergan 25mg Homepack) 1 each PO UD ONE Stop: 12/21/23 22:47 Last Admin: 12/21/23 22:58 Dose: 1 each Documented By: MARION Imaging Data Radiologist's Impression: Abdomen/Pelvis CT 12/21/23 18:39 Exam(s): CT ABDOMEN + PELVIS With Contrast IV Amt: 93 ml optiray 320 EXAM: CT Abdomen and Pelvis With Intravenous Contrast CLINICAL HISTORY: Reason for exam: abd pain. TECHNIQUE: Axial computed tomography images of the abdomen and pelvis with intravenous contrast. CTDI is 8.14 mGy and DLP is 376.31 mGy-cm. Automated exposure control was utilized for the study. A dose lowering technique was utilized adhering to the principles of ALARA. CONTRAST: Patient received 93 ml optiray 320 of IV contrast COMPARISON: CT 12/13/2023 FINDINGS: ABDOMEN: Liver: Unremarkable. Gallbladder and bile ducts: Unremarkable. Pancreas: Unremarkable. Spleen: Unremarkable. Adrenals: Unremarkable. Kidneys and ureters: Unremarkable. No obstructing stones. No hydronephrosis. Stomach and bowel: Colonic diverticulosis without diverticulitis. No bowel obstruction. Status post gastric bypass without complication. PELVIS: Appendix: Normal appendix. Bladder: Unremarkable. Reproductive: Unremarkable as visualized. ABDOMEN and PELVIS: Intraperitoneal space: Unremarkable. No free air. No significant fluid collection. Bones/joints: No acute fracture. Soft tissues: Unremarkable. Vasculature: Unremarkable. Lymph nodes: Unremarkable. IMPRESSION: No acute abnormality within the abdomen or pelvis. Electronically signed by: Hernandez Leigh MD 12/21/23 20:00 PM Discharge Plan Visit Data Chief Complaint: Nausea Stated Complaint: NAUSEA ED Provider: Kobi Roberto Discharge Problem: Vomiting, Abdominal pain Discharge Instructions Krames/Other Patient Handouts: ED Vomiting (Adult) Activity Restrictions/Additional Instructions: Please follow up with your primary care doctor with in the next 24 hours. Any worsening of your symptoms, please return to the ED immediately. This includes any fevers greater than 100.4, worsening pain, chest pain, shortness breath, persistent nausea, vomiting, unable to eat or drink, or any other concerning signs or symptoms from your standpoint. You were found to have a blood pressure greater than 120 systolic over 90 diastolic. Due to the new Medicare guidelines, we are now recommending that you follow up with your primary care doctor in regards to this elevated blood pressure. Please take Phenergan as needed for nausea vomiting You are given a home pack of Phenergan as well as a prescription. Forms Stand Alone Forms: My [facility] [employer] Prescriptions Prescriptions: No Action morphine concentrate 100 mg/5 mL (20 mg/mL) solution 5 mg PO Q4H PRN (Reason: Pain) ondansetron HCl 8 mg tablet 8 mg PO TID PRN (Reason: Nausea And Vomiting) olanzapine 5 mg tablet 5 mg PO HS prochlorperazine maleate 10 mg tablet 10 mg PO Q6H PRN (Reason: Nausea And Vomiting) lidocaine-prilocaine 2.5-2.5 % cream 1 applic topical DIRECTED Rx Instructions: prn for port access lorazepam 0.5 mg tablet 0.5 mg PO Q6H PRN (Reason: Anxiety) pantoprazole 40 mg tablet,delayed release (DR/EC) 40 mg PO BID PRN (Reason: Heartburn) chlorpromazine 25 mg tablet 25 mg PO Q6H PRN (Reason: Hiccups) oxycodone 5 mg tablet 5 mg PO DAILY PRN (Reason: Pain (Scale Score 7-10)) escitalopram oxalate 10 mg tablet 10 mg PO DAILY cyanocobalamin (vitamin B-12) 1,000 mcg Tablet 1,000 mcg PO DAILY cholecalciferol (vitamin D3) [Vitamin D3] 25 mcg (1,000 unit) Tablet 25 mcg PO DAILY Referrals Referrals: Thaddeus Solis MD [Primary Care Provider] - Discharge Problem: Vomiting Qualifiers: Vomiting type: unspecified Nausea presence: unspecified Qualified Code(s): R 11.10 - Vomiting, unspecified Abdominal pain Qualifiers: Abdominal location: unspecified location Qualified Code(s): R10.9 - Unspecified abdominal pain
[2023-12-21 18:54] LABS: Basophils # (auto) 0.03 K/uL (0.00-0.20); Basophils % (auto) 0.5 %; Eosinophils # (auto) 0.01 K/uL (0.00-0.50); Eosinophils % (auto) 0.2 %; Hematocrit (blood only) 36.7 % (42.0-52.0); Hemoglobin 12.6 g/dl (14.0-18.0); Immature Granulocytes # (auto) 0.03 K/uL (0.01-0.20); Immature Granulocytes % (auto) 0.5 %; Lymphocytes # (auto) 0.94 K/uL (1.20-3.40); Lymphocytes % (auto) 14.2 %; Mean Corpuscular Hemoglobin 29.6 pg (25.0-34.0); Mean Corpuscular Hgb Conc 34.3 g/dL (32.0-36.0); Mean Corpuscular Volume 86.4 fL (80.0-100.0); Mean Platelet Volume 10.3 fL (9.4-12.4); Monocytes % (auto) 9.1 %; Neutrophils # (auto) 5.01 K/uL (1.40-6.50); Neutrophils % (auto) 75.5 %; Platelet Count 221 K/uL (130-400); RDW Coefficient of Variation 14.5 % (11.5-14.5); RDW Standard Deviation 45.9 fL (36.4-46.3); Red Blood Count 4.25 M/uL (4.70-6.10); White Blood Count 6.62 K/ul (4.8-10.8)
[2023-12-21] MEDS: SODIUM CHLORIDE 0.9% 1,000 ML IV ONE (18:57)
[2023-12-21] MEDS: MoRPHine SULFATE 4 MG/ML 1 ML CARP\\VIAL IV STA (18:57)
[2023-12-21] MEDS: ONDANSETRON INJ 2 MG/ML 2 ML VIAL IV STA (18:57)
[2023-12-21 19:16] LABS: Albumin Globulin Ratio 1.5 (0.9-2); BUN Creatinine Ratio 14.9 (10-20); Bilirubin,Total 0.7 mg/dl (0.2-1.0); Calcium 8.8 mg/dl (8.6-10.3); Creatinine Clr Calc Pharmacy 110.8 ml/min; Est GFR (African American) 121.9 ml/min; Est GFR (Non-African American) 105.2 ml/min; Globulin 2.6 gm/dl (2.5-4.0); Potassium 3.2 mmol/L (3.5-5.1); Total Protein 6.6 gm/dl (6.0-8.3)
[2023-12-21] MEDS: OPTIRAY 320 100ml IV ONE (19:37)
--- NOTE | 2023-12-21 20:01 | CT Scan Report ---
Exam(s): CT ABDOMEN + PELVIS With Contrast IV Amt: 93 ml optiray 320 EXAM: CT Abdomen and Pelvis With Intravenous Contrast CLINICAL HISTORY: Reason for exam: abd pain. TECHNIQUE: Axial computed tomography images of the abdomen and pelvis with intravenous contrast. CTDI is 8.14 mGy and DLP is 376.31 mGy-cm. Automated exposure control was utilized for the study. A dose lowering technique was utilized adhering to the principles of ALARA. CONTRAST: Patient received 93 ml optiray 320 of IV contrast COMPARISON: CT 12/13/2023 FINDINGS: ABDOMEN: Liver: Unremarkable. Gallbladder and bile ducts: Unremarkable. Pancreas: Unremarkable. Spleen: Unremarkable. Adrenals: Unremarkable. Kidneys and ureters: Unremarkable. No obstructing stones. No hydronephrosis. Stomach and bowel: Colonic diverticulosis without diverticulitis. No bowel obstruction. Status post gastric bypass without complication. PELVIS: Appendix: Normal appendix. Bladder: Unremarkable. Reproductive: Unremarkable as visualized. ABDOMEN and PELVIS: Intraperitoneal space: Unremarkable. No free air. No significant fluid collection. Bones/joints: No acute fracture. Soft tissues: Unremarkable. Vasculature: Unremarkable. Lymph nodes: Unremarkable. IMPRESSION: No acute abnormality within the abdomen or pelvis. Electronically signed by: Hernandez Leigh MD 12/21/23 20:00 PM
[2023-12-21] MEDS: SODIUM CHLORIDE 0.9% 1,000 ML IV SCH (20:13)
[2023-12-21] MEDS: METOCLOPRAMIDE HCL INJ 5 MG/ML 2 ML VIAL IV STA (20:52)
[2023-12-21 21:33] LABS: Appearance Urine Cloudy (Clear); Bacteria Urine Automated None Seen (None Seen); Bilirubin Urine Negative (Negative); Blood Urine Negative (Negative); Calcium Oxalate Crystals Urine Present (None Prsent); Cast Urine Automated 0-2 /lpf (0-2); Color Urine Yellow; Epithelial Cell Urine Auto 0-2 /hpf (0-2); Glucose Urine UA Negative (Negative); Ketones Urine 2+ (Negative); Leukocyte Esterase Urine Negative (Negative); Mucus Urine Present (None Prsent); Nitrite Urine Negative (Negative); Protein Urine Negative (Negative); RBC Urine Automated 0-2 /hpf (0-2); Specific Gravity Urine 1.021 (1.000-1.030); Urobilinogen Urine Negative (Negative); WBC Urine Automated 0-5 /hpf (0-5); pH Urine 6.5 (4.5-7.5)
[2023-12-21] MEDS: PROMETHAZINE 25 MG/51 ML BAG IV STA (21:38)
[2023-12-21] MEDS: POTASSIUM CHLORIDE 20 MEQ/15 ML UDC PO STA (22:58)
[2023-12-21] MEDS: PHENERGAN 25MG HOMEPACK PO ONE (22:58)
--- OUTSIDE RECORDS SUMMARY | 2023-12-21 23:26 | External Medical Summary | Summary of Care ---
Author Name Unknown Organization [facility] Address [address] [place] [address] Phone [phone] Care Team Providers Care Stoper Name Role Phone Thaddeus Solis MD Primary Care Provider [phone] Reason for Visit * Reason Onset Date Comments Hospital Follow-Up 12/19/2023 BELEN Encounter Details Date Type Department Care Team (Late st Contact Info) Description 12/19/[address] [address] Cathi Do, JANA Hospital Follow-Up (BELEN) Allergies Active Allergy Reactions Criticality Noted Date Comments Carbamazepine Rash Medium 02/20/2018 documented as of this encounter (statuses as of 12/19/2023) Medications Medication Sig Dispensed Refills Start Date [...] Pain, Breakthrough. 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 30 Capsule 1 10/04/2023 Active Pantoprazole Sodium 20 MG Oral Tablet Delayed Release (Protonix) Take 1 Tablet by mouth in the morning. 0 Active Ondansetron HCl 4 MG Oral Tablet Take 1 Tablet by mouth every 8 hours as needed for Nausea. 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 30 Tablet 5 11/02/2023 Active OLANZapine 5 MG Oral Tablet (zyPREXA) TAKE 1 TABLET BY MOUTH AT BEDTIME FOR NAUSEA 90 Tablet 1 11/04/2023 Active documented as of this encounter (statuses as of 12/19/2023) Active Problems Problem Noted Date Diagnosed Date [...] as of this encounter (statuses as of 12/19/2023) Immunizations Name Administration Dates Next Due TDAP [...] (15 years old or older) No 09/26/19 24 Cognitive Status Response Date of Assessm ent Because of a physical, menta l, or emotional condition, do you have serious difficulty concentrating, remembering, or making decisions? (5 years old or older) No 09/26/2023 documented as of this encounter Miscellaneous Notes * Telephone Encounter - Cathi Do RN - 12/19/2023 1:22 PM EDT Transitions of Care Note Reason for Referral:Recent Admission Phone visit for follow up: BELEN #1 Admitted to: [facility], Date: 12/15/2023 Discharged to: Home, Date: 12/17/2023 Diagnosis driving hospitalization: Chronic nausea, Dehydration Attempted BELEN - no answer. Left message to return call [phone] or . Cathi Do RN documented in this encounter Plan of Treatment Upcoming Encounters Date Type Department Care Team (Late st Contact Info) Description 01/10/2024 10:00 AM EDT Nurse Only Hematology/Oncology Treatment, [place] [address] [place] [id number] [facility] [address] 02/21/2024 9:00 AM EDT Laboratory Laboratory [address] [place] [phone] [address] [place] [address] 02/28/2024 7:45 AM EDT Office Visit Hematology/Oncology [employer] [address] [facility] [place] [address] Cipriano Kuhn MD [address] [facility] [place] [address] Scheduled Procedures Name Priority Associated Diagnoses Date/Ti [...] 2023 04/10/2021, 03/19/2021 Influenza Vaccine (FLU shot) (Season Ended) 2024 Colonoscopy 03/30/2033 03/30/2023, 03/30/2023 Colorectal Cancer Screening [...] this encounter Medical Devices Implanted Type Area Ultrasound Technologist Device Identifier Shelf Expiration Date Model / Serial / Lot Cement Hydroset Injectable 5cc - [id number] Implanted:Qty : 1 on 03/15/2018 by Ronak Khoury MD at OR [facility] [place] Left: Head JOHN 11/09/2019 [id number] / / [id number] Needle Fiducial 22ga - [id number] Implanted:Qty : 1 on 04/01/2023 by Karson Goddard MD at ENDOSCOPY [facility] N/A: Esophagus GIVEN IMAGING [id number] 01/12/2025 DSF-22-01 / / [id number] Stent Wallf Esoph 23/12ojx98px - [id number] Implanted:Qty : 1 on 04/01/2023 by Karson Goddard MD at ENDOSCOPY [facility] N/A: Esophagus [employer] : ENDOSCOPY [id number] 09/09/2024 [id number] / / [id number] Power Port 8fr Sngl Lumen Plas - [id number] Implanted:Qty : 1 on 04/19/2023 by Thaddeus Brown DO at OR [facility] Right: Chest CR BARD : PERIPHERAL VASCULAR [id number] 06/14/2024 [id number] / / [id number] documented as of this encounter Advance Directives [...] the patient have Health Care Power of Management Sme? No Care Teams Stoper Relationship Specialty Start Date End Date Thaddeus Solis MD [address] [place] [address] PCP - General Family Medicine 09/12/23 documented as of this encounter
--- OUTSIDE RECORDS SUMMARY | 2023-12-21 23:26 | External Medical Summary | Summary of Care ---
Author Name Unknown Organization [facility] Address [address] [place] [address] Phone [phone] Care Team Providers Care Crown Assembly Machine Set Up Mechanic Name Role Phone Thaddeus Solis MD Primary Care Provider [phone] Reason for Visit * Reason Onset Date Comments Hospital Follow-Up 12/19/2023 BELEN Encounter Details Date Type Department Care Team (Late st Contact Info) Description 12/19/[address] [address] Cathi Do, JANA Hospital Follow-Up (BELEN) Allergies Active Allergy Reactions Criticality Noted Date Comments Carbamazepine Rash Medium 02/20/2018 documented as of this encounter (statuses as of 12/20/2023) Medications Medication Sig Dispensed Refills Start Date [...] Oral Liquid 55ml/hr via [place] tube continuously 76971 mL 2 09/28/2023 Active Vitamin D (Cholecalciferol) [...] as of this encounter (statuses as of 12/20/2023) Active Problems Problem Noted Date Diagnosed Date [...] as of this encounter (statuses as of 12/20/2023) Immunizations Name Administration Dates Next Due TDAP [...] no answer. Left message to return call [phone] or . Cathi Do RN Transitions of Care Note Reason for Referral:Recent Admission Phone visit for follow up: BELEN #2 Admitted to: [facility], Date: 12/15/2023 Discharged to: Home, Date: 12/17/2023 Diagnosis driving hospitalization: Chronic nausea, Dehydration Attempted BELEN - no answer. Left message to return call [phone] or . Cathi Do RN documented in this encounter Plan of Treatment Upcoming Encounters Date Type Department Care Team (Late st Contact Info) Description 01/10/2024 10:00 AM EDT Nurse Only Hematology/Oncology Treatment, [place] [address] [place] [address] Nurse, Med [address] [place] [address] 02/21/2024 9:00 AM EDT Laboratory Laboratory [address] [place] [phone] [place] [address] 02/28/2024 7:45 AM EDT Office Visit Hematology/Oncology Katarzyna Sandra [place] [address] [facility] [place] [phone] Cipriano Kuhn MD [address] [place] [address] Scheduled Procedures Name Priority Associated Diagnoses Date/Ti [...] this encounter Medical Devices Implanted Type Area Casualty Claim Adjuster Device Identifier Shelf Expiration Date Model / Serial / Lot Cement Hydroset Injectable 5cc - [id number] Implanted:Qty : 1 on 03/15/2018 by Ronak Khoury MD at [place] [facility] Left: Head JOHN 11/09/2019 [id number] / / [id number] Needle Fiducial 22ga - [id number] Implanted:Qty : 1 on 04/01/2023 by Karson Goddard MD at [place]OS[place] [facility] N/A: Esophagus GIVEN IMAGING [id number] 01/12/2025 DSF-22-01 / / [id number] Stent Wallf Esoph 23/13ufn39dr - [id number] Implanted:Qty : 1 on 04/01/2023 by Karson Goddard MD at ENDOSCOPY [facility] N/A: Esophagus [employer] : ENDOSCOPY [id number] 09/09/2024 [id number] / / [id number] Power Port 8fr Sngl Lumen Plas - [id number] Implanted:Qty : 1 on 04/19/2023 by Thaddeus Brown DO at OR [facility] Right: Chest CR BARD : PERIPHERAL VASCULAR [id number] 06/14/2024 [id number] / / [id number] documented as of this encounter Advance Directives [...] the patient have Health Care Power of Television Director? No Care Teams Crown Assembly Machine Set Up Mechanic Relationship Specialty Start Date End Date Thaddeus Solis MD [address] [place] [address] PCP - General Family Medicine 09/12/23 documented as of this encounter
[2023-12-21] MEDS: POTASSIUM CHLORIDE / WTR 10 MEQ/100 ML PLCT IV SCH (23:40)
--- NOTE | 2023-12-22 00:59 | History & Physical Report ---
Date of Service December 22, 2023 Assessment & Plan (1) Vomiting: Plan: 58-year-old male with past medical history significant for esophageal cancer status post neoadjuvant chemotherapy/surgery, chronic anemia (baseline hemoglobin 12-13), history trigeminal neuralgia status post surgery, past tobacco abuse presents with nausea and vomiting and abdominal pain since last couple of days. Patient was recently in the hospital with similar issues seemed his nausea improved with emend at that time. Patient says after going home he was okay for few days but again symptoms started last two days.Currently pain is improved. Denies any fevers. Had normal bowel movement in the morning. Micturating okay. No chest pain or shortness of breath. No headaches. Has some blurry vision. No runny nose or sore throat. No cough. Hemodynamics are okay. Nausea and vomiting Persistent CT of abdomen pelvis okay Will keep him n.p.o. IV antibiotics IV Protonix GI consult in a.m. for further recommendations hx of esophageal cancer status post neoadjuvant chemotherapy/surgery Hypokalemia Potassium 3.2 Replaced in ER Will follow repeat labs Chronic anemia Hemoglobin 12.6 seems at baseline Will follow labs DVT prophylaxis Lovenox Disposition Medical floor Full code History of Present Illness Chief Complaint: Nausea vomiting and abdominal pain Primary Care Provider: Thaddeus Solis MD 58-year-old male with past medical history significant for esophageal cancer status post neoadjuvant chemotherapy/surgery, chronic anemia (baseline hemoglobin 12-13), history trigeminal neuralgia status post surgery, past tobacco abuse presents with nausea and vomiting and abdominal pain since last couple of days. Patient was recently in the hospital with similar issues seemed his nausea improved with emend at that time. Patient says after going home he was okay for few days but again symptoms started last two days.Currently pain is improved. Denies any fevers. Had normal bowel movement in the morning. Micturating okay. No chest pain or shortness of breath. No headaches. Has some blurry vision. No runny nose or sore throat. No cough. Hemodynamics are okay. Past medical history. As mentioned above. Past surgical history. Colonoscopy. EGD. EGD with endoscopic ultrasound. Total gastrectomy with esophagoenterostomy. Spinal tap. Social history. . Smokes cigars infrequently. Alcohol social drinking. Smokes marijuana infrequently. Family history. Father had stroke. Allergies Allergy/AdvReac Type Severity Reaction Status Date / Time carbamazepine [From Tegretol] Allergy Mild Rash Verified 12/15/23 20:18 Home Medications Medication Instructions Recorded Confirmed Type chlorpromazine 25 mg tablet 25 mg PO Q6H PRN Hiccups 12/22/23 12/22/23 History cholecalciferol (vitamin D3) 25 25 mcg PO DAILY 12/22/23 12/22/23 History mcg (1,000 unit) tablet (Vitamin D3) cyanocobalamin (vitamin B-12) 1,000 mcg PO DAILY 12/22/23 12/22/23 History 1,000 mcg tablet escitalopram oxalate 10 mg tablet 10 mg PO DAILY 12/22/23 12/22/23 History lidocaine-prilocaine 2.5 %-2.5 % 1 applic topical DIRECTED 12/22/23 12/22/23 History topical cream lorazepam 0.5 mg tablet 0.5 mg PO Q6H PRN Anxiety 12/22/23 12/22/23 History morphine concentrate 100 mg/5 mL 5 mg PO Q4H PRN Pain 12/22/23 12/22/23 History (20 mg/mL) oral solution olanzapine 5 mg tablet 5 mg PO HS 12/22/23 12/22/23 History ondansetron HCl 8 mg tablet 8 mg PO TID PRN Nausea And Vomiting 12/22/23 12/22/23 History oxycodone 5 mg tablet 5 mg PO DAILY PRN Pain (Scale 12/22/23 12/22/23 History Score 7-10) pantoprazole 40 mg tablet,delayed 40 mg PO BID PRN Heartburn 12/22/23 12/22/23 History release prochlorperazine maleate 10 mg 10 mg PO Q6H PRN Nausea And 12/22/23 12/22/23 History tablet Vomiting Past Med/Surg History Medical History Advanced care planning/counseling discussion Weakness generalized Palliative care by specialist Cancer related pain Refractory nausea and vomiting Dehydration Nausea and vomiting History of recent blood transfusion 05/02/23 @ [facility] Enteropathogenic Escherichia coli infection Hyponatremia Trigeminal neuralgia Esophageal cancer diagnosed 04/2023--chemo/ERCP 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 Edmonds/[facility] Eduardo Hypomagnesemia Vomiting and diarrhea Iron deficiency received blood transfusion 05/02/23 @ [facility] Surgical History History of colonoscopy History of esophagogastroduodenoscopy (EGD) History of tooth extraction partial upper and lower denture History of ERCP 04/2023 @ [facility] [place] History of vascular access device A port--power port in placed on right side of chest Family History Other No family history of adverse response to anesthesia Social History Smoking Status: Former smoker Second Hand Exposure: No; Do You Dip or Chew Tobacco: No; Hx Alcohol Use: Yes Alcohol type: beer Hx Substance Use: No Preferred Language: Hebrew Communication Ability: Effective Per Diem Registered Nurse Required: No Beliefs That Will Affect Care: None Current Living Situation: Spouse Feels Safe at Home: Yes Safety Concerns: Feels Safe At This Time Assistive Devices: Cane, Denture - Upper, Denture - Lower and Glasses Review of Systems Review of Systems: All systems reviewed & are unremarkable except as noted in HPI & below Physical Exam Physical Exam: General- Not in distress. Head- atraumatic Eyes- PERRL. ENT- oropharynx clear Neck- supple, no JVD. Lungs- clear to auscultation no wheezing or crackles. Heart- regular rhythm; no murmur, no gallop. Abdomen- normal bowel sounds, soft, nontender, no distension. Extremities- no pretibial edema, no erythema seen. Neuro- alert, oriented PERRL, no facial palsy; no dysarthria; moves extremities. Results & Data Results & Data Vital Signs (Past 12 Hours) Vital Signs Temp Pulse Pulse Resp BP Pulse Ox O2 Del Method 12/21/23 20:14 83 22 188/115 H 100 Room Air 12/21/23 18:48 97 H 18 100 Room Air 12/21/23 18:48 36.8 C 97 H 18 174/104 H 97 Room Air 12/21/23 17:24 36.7 C 94 H 20 97 Room Air Diagnostic Findings Laboratory Results WBC 6.62 K/ul (4.8-10.8) 12/21/23 18:42 RBC 4.25 M/uL (4.70-6.10) L 12/21/23 18:42 Hgb 12.6 g/dl (14.0-18.0) L 12/21/23 18:42 Hct 36.7 % (42.0-52.0) L 12/21/23 18:42 MCV 86.4 fL (80.0-100.0) 12/21/23 18:42 MCH 29.6 pg (25.0-34.0) 12/21/23 18:42 MCHC 34.3 g/dL (32.0-36.0) 12/21/23 18:42 RDW Std Deviation 45.9 fL (36.4-46.3) 12/21/23 18:42 RDW Coeff of Stone 14.5 % (11.5-14.5) 12/21/23 18:42 Plt Count 221 K/uL (130-400) 12/21/23 18:42 MPV 10.3 fL (9.4-12.4) 12/21/23 18:42 Immature Gran % (Auto) 0.5 % 12/21/23 18:42 Neut % (Auto) 75.5 % 12/21/23 18:42 Lymph % (Auto) 14.2 % 12/21/23 18:42 [place] % (Auto) 9.1 % 12/21/23 18:42 Eos % (Auto) 0.2 % 12/21/23 18:42 Baso % (Auto) 0.5 % 12/21/23 18:42 Neut # (Auto) 5.01 K/uL (1.40-6.50) 12/21/23 18:42 Lymph # (Auto) 0.94 K/uL (1.20-3.40) L 12/21/23 18:42 [place] # (Auto) 0.60 K/uL (0.11-0.59) H 12/21/23 18:42 Eos # (Auto) 0.01 K/uL (0.00-0.50) 12/21/23 18:42 Baso # (Auto) 0.03 K/uL (0.00-0.20) 12/21/23 18:42 Immature Gran # (Auto) 0.03 K/uL (0.01-0.20) 12/21/23 18:42 Sodium 139 mmol/L (136-145) 12/21/23 18:42 Potassium 3.2 mmol/L (3.5-5.1) L 12/21/23 18:42 Chloride 107 mmol/L (98-107) 12/21/23 18:42 Carbon Dioxide 21 mmol/L (21-32) 12/21/23 18:42 Anion Gap 11 (3-11) 12/21/23 18:42 BUN 10 mg/dl (6-23) 12/21/23 18:42 Creatinine 0.67 mg/dl (0.6-1.4) 12/21/23 18:42 Est Cr Clr Drug Dosing 110.8 ml/min 12/21/23 18:42 Est GFR ( Amer) 121.9 ml/min 12/21/23 18:42 Est GFR (Non-Af Amer) 105.2 ml/min 12/21/23 18:42 BUN/Creatinine Ratio 14.9 (10-20) 12/21/23 18:42 Glucose 114 mg/dl (70-99(Fasting)) H 12/21/23 18:42 Calcium 8.8 mg/dl (8.6-10.3) 12/21/23 18:42 Total Bilirubin 0.7 mg/dl (0.2-1.0) 12/21/23 18:42 AST 15 U/L (13-39) 12/21/23 18:42 ALT 10 U/L (7-52) 12/21/23 18:42 Alkaline Phosphatase 80 U/L (34-104) 12/21/23 18:42 Total Protein 6.6 gm/dl (6.0-8.3) 12/21/23 18:42 Albumin 4.0 gm/dl (3.4-5.0) 12/21/23 18:42 Globulin 2.6 gm/dl (2.5-4.0) 12/21/23 18:42 Albumin/Globulin Ratio 1.5 (0.9-2) 12/21/23 18:42 Lipase 20 U/L (11-82) 12/21/23 18:42 Urine Color Yellow 12/21/23 20:09 Urine Appearance Cloudy (Clear) A 12/21/23 20:09 Urine pH 6.5 (4.5-7.5) 12/21/23 20:09 Ur Specific [place] 1.021 (1.000-1.030) 12/21/23 20:09 Urine Protein Negative (Negative) 12/21/23 20:09 Urine Glucose (UA) Negative (Negative) 12/21/23 20:09 Urine Ketones 2+ (Negative) H 12/21/23 20:09 Urine Blood Negative (Negative) 12/21/23 20:09 Urine Nitrite Negative (Negative) 12/21/23 20:09 Urine Bilirubin Negative (Negative) 12/21/23 20:09 Urine Urobilinogen Negative (Negative) 12/21/23 20:09 Ur Leukocyte Esterase Negative (Negative) 12/21/23 20:09 Urine WBC (Auto) 0-5 /hpf (0-5) 12/21/23 20:09 Urine RBC (Auto) 0-2 /hpf (0-2) 12/21/23 20:09 U Hyaline Cast (Auto) 0-2 /lpf (0-2) 12/21/23 20:09 U Epithel Cells (Auto) 0-2 /hpf (0-2) 12/21/23 20:09 Urine Bacteria (Auto) None Seen (None Seen) 12/21/23 20:09 Calcium Oxalate Crystal Present (None Prsent) A 12/21/23 20:09 Urine Mucus Present (None Prsent) A 12/21/23 20:09 Impressions Abdomen/Pelvis CT 12/21/23 18:39 Exam(s): CT ABDOMEN + PELVIS With Contrast IV Amt: 93 ml optiray 320 EXAM: CT Abdomen and Pelvis With Intravenous Contrast CLINICAL HISTORY: Reason for exam: abd pain. TECHNIQUE: Axial computed tomography images of the abdomen and pelvis with intravenous contrast. CTDI is 8.14 mGy and DLP is 376.31 mGy-cm. Automated exposure control was utilized for the study. A dose lowering technique was utilized adhering to the principles of ALARA. CONTRAST: Patient received 93 ml optiray 320 of IV contrast COMPARISON: CT 12/13/2023 FINDINGS: ABDOMEN: Liver: Unremarkable. Gallbladder and bile ducts: Unremarkable. Pancreas: Unremarkable. Spleen: Unremarkable. Adrenals: Unremarkable. Kidneys and ureters: Unremarkable. No obstructing stones. No hydronephrosis. Stomach and bowel: Colonic diverticulosis without diverticulitis. No bowel obstruction. Status post gastric bypass without complication. PELVIS: Appendix: Normal appendix. Bladder: Unremarkable. Reproductive: Unremarkable as visualized. ABDOMEN and PELVIS: Intraperitoneal space: Unremarkable. No free air. No significant fluid collection. Bones/joints: No acute fracture. Soft tissues: Unremarkable. Vasculature: Unremarkable. Lymph nodes: Unremarkable. IMPRESSION: No acute abnormality within the abdomen or pelvis. Electronically signed by: Hernandez Leigh MD 12/21/23 20:00 PM (1) Vomiting Nausea presence: unspecified Vomiting type: unspecified Qualified Code(s): R11.10 - Vomiting, unspecified
[2023-12-22] MEDS ORDERED: LORazepam 0.5 MG TAB PO PRN (02:20)
[2023-12-22] MEDS ORDERED: MoRPHine SULFATE 10 MG/0.5 ML UDP PO PRN (02:20)
[2023-12-22] MEDS: PROMETHAZINE HCL 12.5 MG in SODIUM CHLORIDE 0.9% 50 ML IV PRN (03:05)
[2023-12-22] MEDS: D5W AND 1/2NSS 1,000 ML IV SCH (03:05)
[2023-12-22] MEDS: HYDROmorphone INJ 0.5 MG/0.5 ML SYR IV PRN (03:18)
[2023-12-22] MEDS: ENOXAPARIN INJ 40 MG/0.4 ML SYR SQ SCH (05:49)
[2023-12-22 06:27] LABS: Basophils # (auto) 0.02 K/uL (0.00-0.20); Basophils % (auto) 0.4 %; Hemoglobin 10.5 g/dl (14.0-18.0); Immature Granulocytes # (auto) 0.02 K/uL (0.01-0.20); Immature Granulocytes % (auto) 0.4 %; Lymphocytes # (auto) 1.15 K/uL (1.20-3.40); Lymphocytes % (auto) 20.5 %; Mean Corpuscular Hemoglobin 29.3 pg (25.0-34.0); Mean Corpuscular Hgb Conc 33.9 g/dL (32.0-36.0); Mean Corpuscular Volume 86.6 fL (80.0-100.0); Mean Platelet Volume 10.4 fL (9.4-12.4); Monocytes # (auto) 0.66 K/uL (0.11-0.59); Monocytes % (auto) 11.7 %; Neutrophils # (auto) 3.77 K/uL (1.40-6.50); Platelet Count 204 K/uL (130-400); RDW Coefficient of Variation 14.5 % (11.5-14.5); RDW Standard Deviation 46.5 fL (36.4-46.3); Red Blood Count 3.58 M/uL (4.70-6.10); White Blood Count 5.62 K/ul (4.8-10.8)
[2023-12-22 06:43] LABS: BUN Creatinine Ratio 8.3 (10-20); Calcium 7.7 mg/dl (8.6-10.3); Creatinine Clr Calc Pharmacy 101.6 ml/min; Est GFR (African American) 127.6 ml/min; Est GFR (Non-African American) 110.1 ml/min; Magnesium 1.7 mg/dl (1.7-2.4); Phosphorus 3.6 mg/dl (2.5-4.9); Potassium 3.7 mmol/L (3.5-5.1)
[2023-12-22] MEDS: PANTOprazole 40 MG in SYRINGE 0 ML IV SCH (09:55)
[2023-12-22] MEDS: ESCITALOPRAM OXALATE 10 MG TAB PO SCH (09:56)
--- NOTE | 2023-12-22 10:07 | Gastrointestinal Consultation ---
Date of Consultation December 22, 2023 Assessment & Plan (1) Nausea & vomiting: (2) Esophageal cancer: Plan Patient is a 58 y.o. male with a history of esophageal cancer s/p esophagectomy with gastric pullup and neoadjuvant chemotherapy which he states completed in June of 2023 admitted with intermittent nausea with vomiting, either medication induced or CVS. 1. Continue oral antiemetics with Zofran and Phenergan as prescribed. 2. If these measures fail, could consider starting Emend 80 mg twice per week per weight based dosing. 3. Clear liquid diet, advance as tolerated. 4. Supportive care per primary team. 5. GI sign off. Contact us if any clinical concerns. Thank you for allowing us to participate in the care of this patient. If you have any questions or concerns, please do not hesitate to contact us. Supervising Physician Co-Signing Physician Notes Agree with CHAVO Mike as above Interviewed and examined patient as above Abd: Soft, NT, ND, +BS Continue current therapy and supportive care F/U with outpatient GI upon discharge. History of Present Illness Reason for Consultation: Nausea and vomiting Requesting Physician: Dr. Zuleta Attending Physician: Susi Aponte MD History of Present Illness Patient is a 58 y.o. male with a history of esophageal cancer s/p esophagectomy with gastric pullup and neoadjuvant chemotherapy which he states completed in June of 2023. Since that time, he states he has been having intermittent nausea with vomiting, mostly "dry heaves". Symptoms are induced by exertion mostly. States he has been prescribed Zofran to be used at home but the medication is ineffective. He has found the most benefit from IV Emend and his last dose was administered last week with good results as an outpatient. He has also been prescribed Phenergan at home but states he did not have the opportunity to use the prescription before returning to the ER with symptoms. Attributes his nausea to over-exerting himself at home as he has horses to take care of and he is "trying to do too much". Denies any abdominal pain, diarrhea, constipation, melena, or hematochezia. Appetite is good and he is able to tolerate his diet. No recent weight loss. Allergies Allergy/AdvReac Type Severity Reaction Status Date / Time carbamazepine [From Tegretol] Allergy Mild Rash Verified 12/15/23 20:18 Home Medications Medication Instructions Recorded Confirmed Type chlorpromazine 25 mg tablet 25 mg PO Q6H PRN Hiccups 12/22/23 12/22/23 History cholecalciferol (vitamin D3) 25 25 mcg PO DAILY 12/22/23 12/22/23 History mcg (1,000 unit) tablet (Vitamin D3) cyanocobalamin (vitamin B-12) 1,000 mcg PO DAILY 12/22/23 12/22/23 History 1,000 mcg tablet escitalopram oxalate 10 mg tablet 10 mg PO DAILY 12/22/23 12/22/23 History lidocaine-prilocaine 2.5 %-2.5 % 1 applic topical DIRECTED 12/22/23 12/22/23 History topical cream lorazepam 0.5 mg tablet 0.5 mg PO Q6H PRN Anxiety 12/22/23 12/22/23 History morphine concentrate 100 mg/5 mL 5 mg PO Q4H PRN Pain 12/22/23 12/22/23 History (20 mg/mL) oral solution olanzapine 5 mg tablet 5 mg PO HS 12/22/23 12/22/23 History ondansetron HCl 8 mg tablet 8 mg PO TID PRN Nausea And Vomiting 12/22/23 12/22/23 History oxycodone 5 mg tablet 5 mg PO DAILY PRN Pain (Scale 12/22/23 12/22/23 History Score 7-10) pantoprazole 40 mg tablet,delayed 40 mg PO BID PRN Heartburn 12/22/23 12/22/23 History release prochlorperazine maleate 10 mg 10 mg PO Q6H PRN Nausea And 12/22/23 12/22/23 History tablet Vomiting Patient History Medical History Advanced care planning/counseling discussion Weakness generalized Palliative care by specialist Cancer related pain Refractory nausea and vomiting Dehydration Nausea and vomiting History of recent blood transfusion 05/02/23 @ [facility] Enteropathogenic Escherichia coli infection Hyponatremia Trigeminal neuralgia Esophageal cancer diagnosed 04/2023--chemo/ERCP 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 Edmonds/[facility] [place] Hypomagnesemia Vomiting and diarrhea Iron deficiency received blood transfusion 05/02/23 @ [facility] Surgical History History of colonoscopy History of esophagogastroduodenoscopy (EGD) History of tooth extraction partial upper and lower denture History of ERCP 04/2023 @ [facility] [place] History of vascular access device A port--power port in placed on right side of chest Family History Other No family history of adverse response to anesthesia Social History Smoking Status: Former smoker Second Hand Exposure: No; Do You Dip or Chew Tobacco: No; Hx Alcohol Use: Yes Alcohol type: beer Hx Substance Use: No Preferred Language: Icelandic Communication Ability: Effective Global Regulatory Affairs Manager Required: No Beliefs That Will Affect Care: None Current Living Situation: Spouse Feels Safe at Home: Yes Safety Concerns: Feels Safe At This Time Assistive Devices: Cane, Denture - Upper, Denture - Lower and Glasses Review of Systems Constitutional: as per Subjective / HPI Gastrointestinal: as per Subjective / HPI Physical Exam Constitutional: WD/WN, vitals as above Respiratory: normal respiratory effort, lungs clear to auscultation Cardiovascular: RRR, no murmur, no edema Gastrointestinal (Abdomen): normal bowel sounds, soft, nontender, no hepatosplenomegaly Psychiatric: A+Ox3, euthymic affect Results & Data Vital Signs (Past 12 Hours) Vital Signs Temp Pulse Pulse Resp BP BP Pulse Ox 12/22/23 07:10 36.6 C 68 18 115/75 99 12/22/23 02:15 36.8 C 101 H 18 163/99 H 98 12/22/23 01:30 67 11 L 148/96 H 95 12/22/23 01:19 69 12/22/23 01:00 65 12 183/104 H 99 12/22/23 00:30 72 20 165/105 H 12/22/23 00:00 67 12 150/94 H 12/21/23 23:30 65 17 145/92 H 12/21/23 23:00 62 16 156/93 H 12/21/23 22:30 68 13 125/81 O2 Del Method 12/22/23 07:10 Room Air 12/22/23 02:15 Room Air 12/22/23 01:30 12/22/23 01:19 12/22/23 01:00 12/22/23 00:30 12/22/23 00:00 12/21/23 23:30 12/21/23 23:00 12/21/23 22:30 Diagnostic Findings Laboratory Results WBC 5.62 K/ul (4.8-10.8) 12/22/23 05:30 RBC 3.58 M/uL (4.70-6.10) L 12/22/23 05:30 Hgb 10.5 g/dl (14.0-18.0) L 12/22/23 05:30 Hct 31.0 % (42.0-52.0) L 12/22/23 05:30 MCV 86.6 fL (80.0-100.0) 12/22/23 05:30 MCH 29.3 pg (25.0-34.0) 12/22/23 05:30 MCHC 33.9 g/dL (32.0-36.0) 12/22/23 05:30 RDW Std Deviation 46.5 fL (36.4-46.3) H 12/22/23 05:30 RDW Coeff of [place] 14.5 % (11.5-14.5) 12/22/23 05:30 Plt Count 204 K/uL (130-400) 12/22/23 05:30 MPV 10.4 fL (9.4-12.4) 12/22/23 05:30 Immature Gran % (Auto) 0.4 % 12/22/23 05:30 Neut % (Auto) 67.0 % 12/22/23 05:30 Lymph % (Auto) 20.5 % 12/22/23 05:30 [place] % (Auto) 11.7 % 12/22/23 05:30 Eos % (Auto) 0.0 % 12/22/23 05:30 Baso % (Auto) 0.4 % 12/22/23 05:30 Neut # (Auto) 3.77 K/uL (1.40-6.50) 12/22/23 05:30 Lymph # (Auto) 1.15 K/uL (1.20-3.40) L 12/22/23 05:30 [place] # (Auto) 0.66 K/uL (0.11-0.59) H 12/22/23 05:30 Eos # (Auto) 0.00 K/uL (0.00-0.50) 12/22/23 05:30 Baso # (Auto) 0.02 K/uL (0.00-0.20) 12/22/23 05:30 Immature Gran # (Auto) 0.02 K/uL (0.01-0.20) 12/22/23 05:30 Sodium 138 mmol/L (136-145) 12/22/23 05:30 Potassium 3.7 mmol/L (3.5-5.1) 12/22/23 05:30 Chloride 107 mmol/L (98-107) 12/22/23 05:30 Carbon Dioxide 25 mmol/L (21-32) 12/22/23 05:30 Anion Gap 6 (3-11) 12/22/23 05:30 BUN 5 mg/dl (6-23) L 12/22/23 05:30 Creatinine 0.60 mg/dl (0.6-1.4) 12/22/23 05:30 Est Cr Clr Drug Dosing 101.6 ml/min 12/22/23 05:30 Est GFR ( Amer) 127.6 ml/min 12/22/23 05:30 Est GFR (Non-Af Amer) 110.1 ml/min 12/22/23 05:30 BUN/Creatinine Ratio 8.3 (10-20) L 12/22/23 05:30 Glucose 145 mg/dl (70-99(Fasting)) H 12/22/23 05:30 Calcium 7.7 mg/dl (8.6-10.3) L 12/22/23 05:30 Phosphorus 3.6 mg/dl (2.5-4.9) 12/22/23 05:30 Magnesium 1.7 mg/dl (1.7-2.4) 12/22/23 05:30 Total Bilirubin 0.7 mg/dl (0.2-1.0) 12/21/23 18:42 AST 15 U/L (13-39) 12/21/23 18:42 ALT 10 U/L (7-52) 12/21/23 18:42 Alkaline Phosphatase 80 U/L (34-104) 12/21/23 18:42 Total Protein 6.6 gm/dl (6.0-8.3) 12/21/23 18:42 Albumin 4.0 gm/dl (3.4-5.0) 12/21/23 18:42 Globulin 2.6 gm/dl (2.5-4.0) 12/21/23 18:42 Albumin/Globulin Ratio 1.5 (0.9-2) 12/21/23 18:42 Lipase 20 U/L (11-82) 12/21/23 18:42 Urine Color Yellow 12/21/23 20:09 Urine Appearance Cloudy (Clear) A 12/21/23 20:09 Urine pH 6.5 (4.5-7.5) 12/21/23 20:09 Ur Specific [place] 1.021 (1.000-1.030) 12/21/23 20:09 Urine Protein Negative (Negative) 12/21/23 20:09 Urine Glucose (UA) Negative (Negative) 12/21/23 20:09 Urine Ketones 2+ (Negative) H 12/21/23 20:09 Urine Blood Negative (Negative) 12/21/23 20:09 Urine Nitrite Negative (Negative) 12/21/23 20:09 Urine Bilirubin Negative (Negative) 12/21/23 20:09 Urine Urobilinogen Negative (Negative) 12/21/23 20:09 Ur Leukocyte Esterase Negative (Negative) 12/21/23 20:09 Urine WBC (Auto) 0-5 /hpf (0-5) 12/21/23 20:09 Urine RBC (Auto) 0-2 /hpf (0-2) 12/21/23 20:09 U Hyaline Cast (Auto) 0-2 /lpf (0-2) 12/21/23 20:09 U Epithel Cells (Auto) 0-2 /hpf (0-2) 12/21/23 20:09 Urine Bacteria (Auto) None Seen (None Seen) 12/21/23 20:09 Calcium Oxalate Crystal Present (None Prsent) A 12/21/23 20:09 Urine Mucus Present (None Prsent) A 12/21/23 20:09 Impressions Abdomen/Pelvis CT 12/21/23 18:39 Exam(s): CT ABDOMEN + PELVIS With Contrast IV Amt: 93 ml optiray 320 EXAM: CT Abdomen and Pelvis With Intravenous Contrast CLINICAL HISTORY: Reason for exam: abd pain. TECHNIQUE: Axial computed tomography images of the abdomen and pelvis with intravenous contrast. CTDI is 8.14 mGy and DLP is 376.31 mGy-cm. Automated exposure control was utilized for the study. A dose lowering technique was utilized adhering to the principles of ALARA. CONTRAST: Patient received 93 ml optiray 320 of IV contrast COMPARISON: CT 12/13/2023 FINDINGS: ABDOMEN: Liver: Unremarkable. Gallbladder and bile ducts: Unremarkable. Pancreas: Unremarkable. Spleen: Unremarkable. Adrenals: Unremarkable. Kidneys and ureters: Unremarkable. No obstructing stones. No hydronephrosis. Stomach and bowel: Colonic diverticulosis without diverticulitis. No bowel obstruction. Status post gastric bypass without complication. PELVIS: Appendix: Normal appendix. Bladder: Unremarkable. Reproductive: Unremarkable as visualized. ABDOMEN and PELVIS: Intraperitoneal space: Unremarkable. No free air. No significant fluid collection. Bones/joints: No acute fracture. Soft tissues: Unremarkable. Vasculature: Unremarkable. Lymph nodes: Unremarkable. IMPRESSION: No acute abnormality within the abdomen or pelvis. Electronically signed by: Hernandez Leigh MD 12/21/23 20:00 PM PG Care Time/CCT Total # of Minutes Spent Total Time Spent with Patient: Total time spent is greater than 50% in coordination of care (as documented) at patient's floor/unit and/or counseling patient: Coding Level of Care Code 52036 INT INP/OBS CARE 3/75MIN Diagnoses Nausea & vomiting R11.2 Vomiting type: unspecified Esophageal cancer C15.9 (1) Nausea & vomiting Vomiting type: unspecified Qualified Code(s): R11.2 - Nausea with vomiting, unspecified
--- NOTE | 2023-12-22 14:18 | Communication Note ---
Date of Service: December 22, 2023 Patient reports nausea and vomiting have improved Will like to advance diet Advance diet as tolerated and monitor Other plans as detailed in H/P
[2023-12-22] MEDS: ONDANSETRON INJ 2 MG/ML 2 ML VIAL IV PRN (19:36)
[2023-12-22] MEDS: OLANZapine 5 MG TABLET PO SCH (22:10)
[2023-12-23 06:47] LABS: Hematocrit (blood only) 35.8 % (42.0-52.0); Hemoglobin 12.3 g/dl (14.0-18.0); Mean Corpuscular Hemoglobin 29.1 pg (25.0-34.0); Mean Corpuscular Hgb Conc 34.4 g/dL (32.0-36.0); Mean Corpuscular Volume 84.6 fL (80.0-100.0); Mean Platelet Volume 10.9 fL (9.4-12.4); Platelet Count 230 K/uL (130-400); RDW Coefficient of Variation 14.2 % (11.5-14.5); RDW Standard Deviation 44.2 fL (36.4-46.3); Red Blood Count 4.23 M/uL (4.70-6.10); White Blood Count 4.69 K/ul (4.8-10.8)
[2023-12-23 07:06] LABS: BUN Creatinine Ratio 5.3 (10-20); Calcium 8.9 mg/dl (8.6-10.3); Est GFR (African American) 130.3 ml/min; Est GFR (Non-African American) 112.4 ml/min; Phosphorus 2.9 mg/dl (2.5-4.9); Potassium 3.3 mmol/L (3.5-5.1)
[2023-12-23 09:14] LABS: Magnesium 1.7 mg/dl (1.7-2.4)
[2023-12-23] MEDS: POTASSIUM CHLORIDE CRTAB 20 MEQ TABCR PO STA (10:09)
[2023-12-23] MEDS: FOSAPREPITANT DIMEGLUMINE 115 MG in 0.9 % SODIUM CHLORIDE 111.1667 ML IV ONE (12:24)
--- NOTE | 2023-12-23 13:48 | Hospitalist Progress Note ---
Date of Service December 23, 2023 Assessment & Plan (1) Vomiting: Plan: 58-year-old male with past medical history significant for esophageal cancer status post neoadjuvant chemotherapy/surgery, chronic anemia (baseline hemoglobin 12-13), history trigeminal neuralgia status post surgery, past tobacco abuse presents with nausea and vomiting and abdominal pain since last couple of days. Patient was recently in the hospital with similar issues seemed his nausea improved with emend at that time. Patient says after going home he was okay for few days but again symptoms started last two days.Currently pain is improved. Denies any fevers. Had normal bowel movement in the morning. Micturating okay. No chest pain or shortness of breath. No headaches. Has some blurry vision. No runny nose or sore throat. No cough. Hemodynamics are okay. Intractable nausea and vomiting Abdominal CT did not show any acute abnormalities. GI evaluation appreciated. Continue antiemetics as needed. Give 1 dose of Emend today IV. Will consider Emend 80 mg twice a week as needed if current antiemetics and not keeping symptoms controlled Hypokalemia. Replete and monitor Hx of esophageal cancer status post neoadjuvant chemotherapy/surgery Chronic anemia Hemoglobin 12.3 today DVT prophylaxis Lovenox Disposition Medical floor Full code I spent a total of 45 minutes coordinating, documenting and providing care for this patient excluding time spent in performance of separately billed services Admission and Anticipated Discharge Date Admission Date: December 22, 2023 Subjective Patient seen and examined. Reported feeling better yesterday but started having severe nausea again after breakfast Denies any headache, dizziness, diarrhea or constipation. Reports abdominal discomfort associated with the nausea. Denies any other complaints. Physical Exam Constitutional: + well hydrated; no acute distress Eyes: PERRL, conjunctivae normal, anicteric sclerae ENMT: external ear and nose normal, oropharynx normal Respiratory: normal respiratory effort, lungs clear to auscultation Cardiovascular: S1-S2 Gastrointestinal (Abdomen): normal bowel sounds, soft, nontender, no hepatosplenomegaly Musculoskeletal: no cyanosis or clubbing, extremities motor strength 5/5 Neurologic: PERRL, EOMI, accommodation nl, no face palsy, no dysarthria Psychiatric: A+Ox3, euthymic affect Results & Data Results & Data Vital Signs (Past 12 Hours) Vital Signs Temp Pulse Resp BP Pulse Ox O2 Del Method 12/23/23 10:08 36.6 C 70 16 151/94 H 99 Room Air Laboratory Results Abnormal lab results 12/23/23 Range/Units 05:43 WBC 4.69 L (4.8-10.8) K/ul RBC 4.23 L (4.70-6.10) M/uL Hgb 12.3 L (14.0-18.0) g/dl Hct 35.8 L (42.0-52.0) % Potassium 3.3 L (3.5-5.1) mmol/L BUN 3 L (6-23) mg/dl Creatinine 0.57 L (0.6-1.4) mg/dl BUN/Creatinine Ratio 5.3 L (10-20) Glucose 125 H (70-99(Fasting)) mg/dl (1) Vomiting Nausea presence: unspecified Vomiting type: unspecified Qualified Code(s): R11.10 - Vomiting, unspecified
--- NOTE | 2023-12-23 22:02 | Electrocardiogram Report ---
Test Reason : Blood Pressure : / mmHG Vent. Rate : 067 BPM Atrial Rate : 197 BPM P-R Int : 122 ms QRS Dur : 084 ms QT Int : 430 ms P-R-T Axes : 047 075 080 degrees QTc Int : 454 ms Normal sinus rhythm When compared with ECG of 15-DEC-2023 19:46, No significant change Confirmed by Noé Mathis ([id number]) on 12/23/2023 10:02:20 PM Referred By: REFERRED SELF Confirmed By:Noé Mathis
[2023-12-24 06:57] LABS: Hematocrit (blood only) 32.1 % (42.0-52.0); Hemoglobin 10.8 g/dl (14.0-18.0); Mean Corpuscular Hemoglobin 29.7 pg (25.0-34.0); Mean Corpuscular Hgb Conc 33.6 g/dL (32.0-36.0); Mean Corpuscular Volume 88.2 fL (80.0-100.0); Mean Platelet Volume 10.6 fL (9.4-12.4); Platelet Count 193 K/uL (130-400); RDW Coefficient of Variation 14.6 % (11.5-14.5); RDW Standard Deviation 47.2 fL (36.4-46.3); Red Blood Count 3.64 M/uL (4.70-6.10)
[2023-12-24 07:18] LABS: BUN Creatinine Ratio 7.8 (10-20); Calcium 8.8 mg/dl (8.6-10.3); Creatinine Clr Calc Pharmacy 95.3 ml/min; Est GFR (African American) 124.2 ml/min; Est GFR (Non-African American) 107.2 ml/min; Magnesium 1.7 mg/dl (1.7-2.4); Phosphorus 3.8 mg/dl (2.5-4.9); Potassium 3.6 mmol/L (3.5-5.1)
--- NOTE | 2023-12-24 13:20 | Discharge Summary ---
Date of Service December 24, 2023 Admission HPI Per Admitting Provider 58-year-old male with past medical history significant for esophageal cancer status post neoadjuvant chemotherapy/surgery, chronic anemia (baseline hemoglobin 12-13), history trigeminal neuralgia status post surgery, past tobacco abuse presents with nausea and vomiting and abdominal pain since last couple of days. Patient was recently in the hospital with similar issues seemed his nausea improved with emend at that time. Patient says after going home he was okay for few days but again symptoms started last two days.Currently pain is improved. Denies any fevers. Had normal bowel movement in the morning. Mictu rating okay. No chest pain or shortness of breath. No headaches. Has some blurry vision. No runny nose or sore throat. No cough. Hemodynamics are okay. Past medical history. As mentioned above. Past surgical history. Colonoscopy. EGD. EGD with endoscopic ultrasound. Total gastrectomy with esophagoenterostomy. Spinal tap. Social history. . Smokes cigars infrequently. Alcohol social drinking. Smokes marijuana infrequently. Family history. Father had stroke. Admission Exam Per Admitting Provider General- Not in distress. Head- atraumatic Eyes- PERRL. ENT- oropharynx clear Neck- supple, no JVD. Lungs- clear to auscultation no wheezing or crackles. Heart- regular rhythm; no murmur, no gallop. Abdomen- normal bowel sounds, soft, nontender, no distension. Extremities- no pretibial edema, no erythema seen. Neuro- alert, oriented PERRL, no facial palsy; no dysarthria; moves extremities. Principal Diagnosis Intractable nausea and vomiting Discharge Exam Constitutional + well hydrated; no acute distress Eyes PERRL, conjunctivae normal, anicteric sclerae ENMT external ear and nose normal, oropharynx normal Respiratory normal respiratory effort, lungs clear to auscultation Cardiovascular S1 S2 Gastrointestinal (Abdomen) normal bowel sounds, soft, nontender, no hepatosplenomegaly Musculoskeletal no cyanosis or clubbing, extremities motor strength 5/5 Neurologic PERRL, EOMI, accommodation nl, no face palsy, no dysarthria Psychiatric A+Ox3, euthymic affect Discharge Data Allergies Allergy/AdvReac Type Severity Reaction Status Date / Time carbamazepine [From Tegretol] Allergy Mild Rash Verified 12/15/23 20:18 Consultations 12/21/23 23:32 ED Decision to Admit Stat 12/22/23 08:00 Consult Gastroenterology Routine Ordered Studies 12/21/23 18:39 CT Abd and Pelvis [CT abd pelvis IV con only] Stat Hospital Course (1) Vomiting: (2) Severe malnutrition: Plan 58-year-old male with past medical history significant for esophageal cancer status post neoadjuvant chemotherapy/surgery, chronic anemia (baseline hemoglobin 12-13), history trigeminal neuralgia status post surgery, past tobacco abuse presents with nausea and vomiting and abdominal pain since last couple of days. Patient was recently in the hospital with similar issues seemed his nausea improved with emend at that time. Patient says after going home he was okay for few days but again symptoms started last two days.Currently pain is improved. Denies any fevers. Had normal bowel movement in the morning. Micturating okay. No chest pain or shortness of breath. No headaches. Has some blurry vision. No runny nose or sore throat. No cough. Hemodynamics are okay. Intractable nausea and vomiting Abdominal CT did not show any acute abnormalities. GI evaluated. Continue antiemetics as needed. Got one dose of IV emend with significant improvement Discharged on a dose of Emend 80 mg as needed if current antiemetics are not effective He is to follow up GI outpatient Hx of esophageal cancer status post neoadjuvant chemotherapy/surgery Chronic anemia Total Time Total Time Spent Total Time Spent (In Minutes): 35 Total Time Includes: Examination of the Patient, Discharge Planning and Medication Reconciliation Discharge Plan Discharge Items Patient Disposition: Home - Self-Care Reason For Visit: N/V AND ABD PAIN Discharge Diagnosis: Intractable nausea and vomiting Activity: Resume your previous activity Non-emergency contact: Primary Care Provider and Percussion Instrument Tuner Call non-emergency contact if: you have any medication questions and your symptoms worsen Follow-up/Referrals: Thaddeus Solis MD [Primary Care Provider] - Diet: Regular Addtl Attending Provider Instructions: Mr Yoder You presented to the hospital with nausea and vomiting These were managed. Please continue your ondansetron (zofran) and prochlorperazine for nausea and vomiting. You are being prescribed one dose of Emend for use only if your usually meds do not work. Please ensure follow up with your Percussion Instrument Tuner. It was a pleasure taking care of you. Pending Studies at Discharge: No Stand-Alone Forms: My [facility], Smoking Cessation Medications and DC Order Prescriptions: New aprepitant [Emend] 80 mg capsule 80 mg PO DAILY PRN (Reason: nausea and vomiting) Qty: 1 0RF Rx Instructions: For nausea and vomiting not controlled with usual meds Continued morphine concentrate 100 mg/5 mL (20 mg/mL) solution 5 mg PO Q4H PRN (Reason: Pain) ondansetron HCl 8 mg tablet 8 mg PO TID PRN (Reason: Nausea And Vomiting) olanzapine 5 mg tablet 5 mg PO HS prochlorperazine maleate 10 mg tablet 10 mg PO Q6H PRN (Reason: Nausea And Vomiting) lidocaine-prilocaine 2.5-2.5 % cream 1 applic topical DIRECTED Rx Instructions: prn for port access lorazepam 0.5 mg tablet 0.5 mg PO Q6H PRN (Reason: Anxiety) pantoprazole 40 mg tablet,delayed release (DR/EC) 40 mg PO BID PRN (Reason: Heartburn) chlorpromazine 25 mg tablet 25 mg PO Q6H PRN (Reason: Hiccups) oxycodone 5 mg tablet 5 mg PO DAILY PRN (Reason: Pain (Scale Score 7-10)) escitalopram oxalate 10 mg tablet 10 mg PO DAILY cyanocobalamin (vitamin B-12) 1,000 mcg Tablet 1,000 mcg PO DAILY cholecalciferol (vitamin D3) [Vitamin D3] 25 mcg (1,000 unit) Tablet 25 mcg PO DAILY Discharge Orders: Discharge Order (Routine); Ordered 12/24/23 Ordered By: Susi Aponte Admission Data Admit Date/Time: 12/22/23 00:42 Attending Provider: Susi Aponte I. Admit Provider: Zain Zuleta Primary Care Provider: Thaddeus Solis Other Providers: Zain Zuleta; Jason Cid Other Interventions: Discharge Summary Assessment (RN) Last Done: 12/24/23 13:53
--- NOTE | 2023-12-26 08:17 | Coding Query ---
PRESENT ON ADMISSION QUERY To promote full compliance with coding requirements relating to pateint care, physician participation is requested in all cases of sifter and miller uncertainty. Please assist us with the question(s) below: Please place an X within the parenthesis (x). The following diagnosis listed in this patient's medical record require physician assistance to determine if they were present on admission (POA) or not. Please advise for each diagnosis whether it was present on admission, not present on admission, or if it was clinically undetermined. 1. SEVERE MALNUTRITION - documented on the Discharge Summary ( ) Present On Admission ( ) Not Present On Admission ( ) Clinically Undetermined Thank you Lisbeth Santamaria *Definition of the present on admission (POA)-Present on admission is defined as present at the time the order for inpatient admission occurs. Conditions that develop during an outpatient encounter prior to a written order for inpatient admission (including emergency department, observation, or outpatient surgery) are considered present on admission. MTDD
== END 2023-12-24 14:17 | disposition home or self-care (01) ==
LOC: ED 17:37 → 3E 12-22 00:42 → INTOOBSV 12-22 00:42 → 3E 12-22 02:04

== ENCOUNTER 2024-02-13 09:10 | Observation (INO) ==
[2024-02-13] MEDS: ONDANSETRON INJ 2 MG/ML 2 ML VIAL IV STA (09:44)
[2024-02-13] MEDS: SODIUM CHLORIDE 0.9% 1,000 ML IV ONE (09:44)
[2024-02-13 10:00] LABS: Basophils # (auto) 0.03 K/uL (0.00-0.20); Basophils % (auto) 0.5 %; Eosinophils # (auto) 0.01 K/uL (0.00-0.50); Eosinophils % (auto) 0.2 %; Hematocrit (blood only) 40.7 % (42.0-52.0); Immature Granulocytes # (auto) 0.01 K/uL (0.01-0.20); Immature Granulocytes % (auto) 0.2 %; Lymphocytes # (auto) 1.49 K/uL (1.20-3.40); Lymphocytes % (auto) 25.7 %; Mean Corpuscular Hemoglobin 29.2 pg (25.0-34.0); Mean Corpuscular Hgb Conc 34.4 g/dL (32.0-36.0); Mean Corpuscular Volume 84.8 fL (80.0-100.0); Mean Platelet Volume 10.6 fL (9.4-12.4); Monocytes # (auto) 0.68 K/uL (0.11-0.59); Monocytes % (auto) 11.7 %; Neutrophils # (auto) 3.57 K/uL (1.40-6.50); Neutrophils % (auto) 61.7 %; Platelet Count 258 K/uL (130-400); RDW Coefficient of Variation 13.9 % (11.5-14.5); RDW Standard Deviation 43.1 fL (36.4-46.3); White Blood Count 5.79 K/ul (4.8-10.8)
--- NOTE | 2024-02-13 10:04 | Emergency Department Note ---
History of Present Illness General Chief complaint: Illness Stated complaint: DEHYDRATION, NAUSEA, VOMITING Time Seen by Provider: 02/13/24 09:31 History of Present Illness Provider Complaint: + nausea, + vomiting, + diarrhea and + abdominal pain Onset (ago): day(s) 2 Description of Vomiting: no bilious, no blood-streaked, no bloody or no coffee grounds Description of Diarrhea: no mucousy, no tarry, no blood-streaked or no bloody (bright red) Associated Abdominal Pain: Yes Location of pain: + diffuse Quality: + cramping, + stabbing and + sharp Pain Consistency: + constant Relieved By: + none Exacerbated By: + vomiting Context: no foreign travel, no possible food poisoning, no recent antibiotic use, no alcohol abuse, no trauma, no caffeine, no smoking or no marijuana use Associated symptoms: no chest pain, no cough, no fever/chills, no headaches, no shortness of breath, no weakness or no anxiety Home Medications Medication Instructions Recorded Confirmed Type escitalopram oxalate 10 mg tablet 10 mg PO HS 12/22/23 02/13/24 History olanzapine 5 mg tablet 5 mg PO HS 12/22/23 02/13/24 History pantoprazole 40 mg tablet,delayed 40 mg PO BID Heartburn 12/22/23 02/13/24 History release cholecalciferol (vitamin D3) 50 50 mcg PO DAILY 02/13/24 02/13/24 History mcg (2,000 unit) tablet (Vitamin D3) cyanocobalamin (vitamin B-12) 500 500 mcg PO DAILYBD 02/13/24 02/13/24 History mcg tablet (Vitamin B-12) Allergies Allergy/AdvReac Type Severity Reaction Status Date / Time carbamazepine [From Tegretol] Allergy Mild Rash Verified 02/13/24 11:18 Past Med/Surg History Problem List (Updated 02/13/24 @ 14:46 by Eric White MD) Intractable nausea and vomiting (Acute) Medical History (Updated 02/13/24 @ 14:46 by Eric White MD) History of esophageal cancer Severe malnutrition Anemia Esophageal cancer diagnosed 04/2023--chemo/ERCP 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 Edmonds/[facility] Eduardo History of recent blood transfusion 05/02/[address] [facility] Enteropathogenic Escherichia coli infection Hyponatremia Trigeminal neuralgia Hypomagnesemia Vomiting and diarrhea Iron deficiency received blood transfusion 05/02/[address] [facility] Surgical History History of colonoscopy History of esophagogastroduodenoscopy (EGD) History of tooth extraction partial upper and lower denture History of ERCP 04/[address] [facility] Rowe History of vascular access device A port--power port in placed on right side of chest Family History (Updated 02/13/24 @ 13:52 by Kim Benitez PA-C) Father Stroke Social History (Updated 02/13/24 @ 13:52 by Kim Benitez PA-C) Smoking Status: Former smoker Second Hand Exposure: No; Do You Dip or Chew Tobacco: No; Hx Alcohol Use: Yes Alcohol type: beer Hx Substance Use: No Preferred Language: Nepali Communication Ability: Effective Bariatric Program Coordinator Required: No Beliefs That Will Affect Care: None marital status: Current Living Situation: Spouse Feels Safe at Home: Yes Assistive Devices: None Physical Exam 2 Vital Signs: Vital Signs - 24 hr 02/13/24 09:18 02/13/24 09:43 02/13/24 11:17 Temperature 36.8 C Temperature Source Temporal Artery Sc an Pulse Rate 57 L 49 L Pulse Rate [Apical ] 51 L Respiratory Rate 18 19 Respiratory Effort / Characteristics Non-Labored Respiratory Depth Normal Respiratory Patter n Regular Blood Pressure 161/90 H Blood Pressure [Le ft Arm] 166/94 H Blood Pressure Lindsey n 113 Blood Pressure Lindsey n [Left Arm] 118 Pulse Oximetry 100 100 Oxygen Delivery Me thod Room Air Room Air Sepsis Recent Feve r Within 48 Hours No Sepsis New/Unexpla ined Change in Men chuck Status N/A Sepsis Action Take n by Nursing No Action Required 02/13/24 11:17 02/13/24 13:28 02/13/24 13:44 Temperature Temperature Source Pulse Rate 51 L 61 Pulse Rate [Apical ] 54 L Respiratory Rate 19 12 Respiratory Effort / Characteristics Respiratory Depth Respiratory Patter n Blood Pressure Blood Pressure [Le ft Arm] 155/88 H Blood Pressure Lindsey n Blood Pressure Lindsey n [Left Arm] 110 Pulse Oximetry 100 96 Oxygen Delivery Me thod Room Air Room Air Sepsis Recent Feve r Within 48 Hours Sepsis New/Unexpla ined Change in Men chuck Status Sepsis Action Take n by Nursing Physical Exam: Physical Exam GENERAL: Cachectic and ill-appearing. HENT: Exam performed. -Head: Normocephalic and atraumatic. -Right Ear: External ear normal. No mastoid erythema -Left Ear: External ear normal. No mastoid erythema -Mouth/Throat: The oropharynx is clear and moist. No trismus in the jaw. No dental abscesses or uvula swelling. No oropharyngeal exudate or tonsillar abscesses. EYES: Conjunctivae and EOM are normal.Right eye exhibits no discharge. Left eye exhibits no discharge. No scleral icterus. NECK: Normal range of motion. Neck supple. No JVD present. No tracheal deviation and normal range of motion present. CV: Normal rate, regular rhythm, normal heart sounds and intact distal pulses. There is no peripheral edema. Palpable radial pulses bue. PULM/CHEST: Effort normal and breath sounds normal. No respiratory distress. No stridor. She has no wheezes. She has no rales. -Chest Wall: She exhibits no tenderness. ABD: Diffuse pain on palpation of the abdomen. MUSC/SKEL: Normal range of motion. There is no peripheral edema, tenderness or deformity. NEURO: Motor and sensation grossly intact. Course Course 930: The patient was evaluated in room C5. A complete history and physical exam was performed Cardiac monitoring: An order was placed for continuous cardiac monitoring. The monitor shows a rate of 50 with sinus rhythm interpreted by me 1300: Vital signs stable. Labs and imaging within normal limits. Patient states he feels better but needs to be admitted for intractable nausea and vomiting. [facility]. [facility] Medications Magnesium Sulfate/Dextrose (Magnesium Sulfate / D5w) 1 gm in 100 mls @ 100 mls/hr IV Q1H GREG Stop: 02/13/24 15:29 Last Admin: 02/13/24 14:15 Dose: 100 mls/hr Documented By: AVM Discontinued Medications Sodium Chloride (Nss) 1,000 mls @ 999 mls/hr IV .Q1H1M ONE Stop: 02/13/24 10:32 Last Infusion: 02/13/24 10:53 Dose: Infused Documented By: Admin: 02/13/24 09:44 Dose: 999 mls/hr Documented By: SARAH Fosaprepitant 150 mg/ Sodium (Chloride) 145 mls @ 300 mls/hr IV ONE ONE Stop: 02/13/24 10:06 Last Infusion: 02/13/24 10:45 Dose: Infused Documented By: Admin: 02/13/24 10:10 Dose: 300 mls/hr Documented By: SARAH Ioversol (Optiray 320 100ml) 93 ml IV ONCE ONE Stop: 02/13/24 11:04 Last Admin: 02/13/24 11:04 Dose: 93 ml Documented By: TOMMY Ondansetron HCl (Ondansetron Inj 2 Mg/Ml 2 Ml Vial) 4 mg IV NOW STA Stop: 02/13/24 09:33 Last Admin: 02/13/24 09:44 Dose: Not Given Documented By: SARAH Medical Decision Making Laboratory Data Attestation: I reviewed the patient's lab results. 02/13/24 09:32 02/13/24 09:32 Lab Results 02/13/24 Range/Units 09:32 WBC 5.79 (4.8-10.8) K/ul RBC 4.80 (4.70-6.10) M/uL Hgb 14.0 (14.0-18.0) g/dl Hct 40.7 L (42.0-52.0) % MCV 84.8 (80.0-100.0) fL MCH 29.2 (25.0-34.0) pg MCHC 34.4 (32.0-36.0) g/dL RDW Std Deviation 43.1 (36.4-46.3) fL RDW Coeff of Stone 13.9 (11.5-14.5) % Plt Count 258 (130-400) K/uL MPV 10.6 (9.4-12.4) fL Immature Gran % (Auto) 0.2 % Neut % (Auto) 61.7 % Lymph % (Auto) 25.7 % Schleicher % (Auto) 11.7 % Eos % (Auto) 0.2 % Baso % (Auto) 0.5 % Neut # (Auto) 3.57 (1.40-6.50) K/uL Lymph # (Auto) 1.49 (1.20-3.40) K/uL Schleicher # (Auto) 0.68 H (0.11-0.59) K/uL Eos # (Auto) 0.01 (0.00-0.50) K/uL Baso # (Auto) 0.03 (0.00-0.20) K/uL Immature Gran # (Auto) 0.01 (0.01-0.20) K/uL PT 11.4 (9.0-12.0) Seconds INR 1.1 (0.9-1.1) APTT 24 (21-31) Seconds PTT Ratio 0.9 Sodium 138 (136-145) mmol/L Potassium 3.5 (3.5-5.1) mmol/L Chloride 103 (98-107) mmol/L Carbon Dioxide 23 (21-32) mmol/L Anion Gap 12 H (3-11) BUN 10 (6-23) mg/dl Creatinine 0.77 (0.6-1.4) mg/dl Est Cr Clr Drug Dosing 79.8 ml/min Est GFR ( Amer) 115.1 ml/min Est GFR (Non-Af Amer) 99.3 ml/min BUN/Creatinine Ratio 13.0 (10-20) Glucose 120 H (70-99(Fasting)) mg/dl Calcium 9.5 (8.6-10.3) mg/dl Magnesium 1.6 L (1.7-2.4) mg/dl Total Bilirubin 0.8 (0.2-1.0) mg/dl Direct Bilirubin 0.2 (0-0.2) mg/dl AST 17 (13-39) U/L ALT 12 (7-52) U/L Alkaline Phosphatase 79 (34-104) U/L Total Protein 7.1 (6.0-8.3) gm/dl Albumin 4.4 (3.4-5.0) gm/dl Lipase 13 (11-82) U/L Imaging Data Radiologist's Impression: Abdomen/Pelvis CT 02/13/24 09:32 CT OF THE ABDOMEN AND PELVIS WITH CONTRAST CLINICAL HISTORY: Abdominal pain, nausea and vomiting. COMPARISON STUDY: CT of the abdomen and pelvis December 21, 2023. TECHNIQUE: Following IV administration of 93 mL of Optiray, axial images of the abdomen and pelvis were obtained from the lung bases to the proximal femurs. Images were reviewed in the axial, sagittal, and coronal planes. IV contrast was administered without complication. Automated exposure control was utilized for the study. A dose lowering technique was utilized adhering to the principles of ALARA. CT DOSE: 318.32 mGy.cm FINDINGS: A small hiatal hernia is present. There are postoperative findings consistent with gastrectomy. The postoperative appearance is unchanged. There is no operative bed fluid collection. There are no hepatic lesions. There is no biliary or pancreatic ductal dilatation. No peripancreatic or pericholecystic infiltration is present. The spleen, adrenal glands and kidneys are normal. There is no hydronephrosis. The caliber and wall thickness of small and large bowel are normal. There is no evidence for a bowel obstruction. Colonic diverticulosis without evidence for acute diverticulitis. The appendix is normal. No abdominal or pelvic lymphadenopathy is present. There are no fluid collections within the abdomen or pelvis. Major vasculature is patent. No suspicious lesions within the visualized skeletal structures are present. IMPRESSION: 1. No acute process within the abdomen or pelvis. 2. Stable findings following gastrectomy. No evidence for a bowel obstruction. 3. No bowel wall thickening. ACT 112: Negative or not required by law. Electronically signed by: Mele Umanzor M.D. 02/13/2024 11:50 AM ECG Data Attestation: I personally reviewed and interpreted this ECG as follows: Rate (beats per minute): 48 Rhythm: sinus bradycardia Findings: no ST depression, no ST elevation or no prolonged QT Additional Comments: QRS 78 MDM Narrative 0931: The patient was evaluated in room C5. A complete history and physical exam was performed Cardiac monitoring: An order was placed for continuous cardiac monitoring. The monitor shows a rate of 50 with sinus rhythm interpreted by me 1300: Vital signs stable. Labs and imaging within normal limits. Patient states he feels better but needs to be admitted for intractable nausea and vomiting. Patient be admitted to the [facility] hospitalist team. Impression & Plan Intractable nausea and vomiting Discharge Plan Visit Data Chief Complaint: Illness Stated Complaint: DEHYDRATION, NAUSEA, VOMITING ED Provider: Eric White Discharge Problem: Intractable nausea and vomiting Patient Disposition: Being Evaluated by Hospitalist Forms Stand Alone Forms: [facility] Prescriptions Prescriptions: No Action cyanocobalamin (vitamin B-12) [Vitamin B-12] 500 mcg Tablet 500 mcg PO DAILYBD cholecalciferol (vitamin D3) [Vitamin D3] 50 mcg (2,000 unit) Tablet 50 mcg PO DAILY olanzapine 5 mg tablet 5 mg PO HS pantoprazole 40 mg tablet,delayed release (DR/EC) 40 mg PO BID escitalopram oxalate 10 mg tablet 10 mg PO HS Referrals Referrals: Thaddeus Solis MD [Primary Care Provider] -
[2024-02-13] MEDS: FOSAPREPITANT DIMEGLUMINE 150 MG in SODIUM CHLORIDE 0.9% 145 ML IV ONE (10:10)
[2024-02-13 10:15] LABS: INR 1.1 (0.9-1.1); Partial Thromboplastin Ratio 0.9; Partial Thromboplastin Time 24 Seconds (21-31); Prothrombin Time 11.4 Seconds (9.0-12.0)
[2024-02-13 10:16] LABS: Albumin Level 4.4 gm/dl (3.4-5.0); Bilirubin Direct 0.2 mg/dl (0-0.2); Bilirubin,Total 0.8 mg/dl (0.2-1.0); Calcium 9.5 mg/dl (8.6-10.3); Magnesium 1.6 mg/dl (1.7-2.4); Potassium 3.5 mmol/L (3.5-5.1)
[2024-02-13 10:22] LABS: Creatinine Clr Calc Pharmacy 79.8 ml/min; Est GFR (African American) 115.1 ml/min; Est GFR (Non-African American) 99.3 ml/min; Total Protein 7.1 gm/dl (6.0-8.3)
[2024-02-13] MEDS: OPTIRAY 320 100ml IV ONE (11:04)
--- NOTE | 2024-02-13 11:51 | CT Scan Report ---
CT OF THE ABDOMEN AND PELVIS WITH CONTRAST CLINICAL HISTORY: Abdominal pain, nausea and vomiting. COMPARISON STUDY: CT of the abdomen and pelvis December 21, 2023. TECHNIQUE: Following IV administration of 93 mL of Optiray, axial images of the abdomen and pelvis we re obtained from the lung bases to the proximal femurs. Images were reviewed in the axial, sagittal, and coronal planes. IV contrast was administered without complication. Automated exposure control wa s utilized for the study. A dose lowering technique was utilized adhering to the principles of ALARA . CT DOSE: 318.32 mGy.cm FINDINGS: A small hiatal hernia is present. There are postoperative findings consistent with gastrect basim. The postoperative appearance is unchanged. There is no operative bed fluid collection. There are no hepatic lesions. There is no biliary or pancreatic ductal dilatation. No peripancreatic or perich olecystic infiltration is present. The spleen, adrenal glands and kidneys are normal. There is no hyd ronephrosis. The caliber and wall thickness of small and large bowel are normal. There is no evidence for a bowel obstruction. Colonic diverticulosis without evidence for acute diverticulitis. The appen jorge l is normal. No abdominal or pelvic lymphadenopathy is present. There are no fluid collections with in the abdomen or pelvis. Major vasculature is patent. No suspicious lesions within the visualized sk eletal structures are present. IMPRESSION: 1. No acute process within the abdomen or pelvis. 2. Stable findings following gastrectomy. No evidence for a bowel obstruction. 3. No bowel wall thickening. ACT 112: Negative or not required by law. Electronically signed by: Mele Umanzor M.D. 02/13/2024 11:50 AM
--- OUTSIDE RECORDS SUMMARY | 2024-02-13 12:00 | External Medical Summary | Summary of Care ---
Author Name Unknown Organization [facility] Address [address] [place] [address] Phone [phone] Care Team Providers Care Carbon Coater Machine Operator Name Role Phone Thaddeus Solis MD Primary Care Provider [phone] Reason for Visit * Reason Onset Date Comments Advice 10/17/2023 Encounter Details Date Type Department Care Team (Late st Contact Info) Description 10/17/2023 Telephone [facility] [address] [place] [address] Thaddeus Solis MD [address] [place] [address] Advice Allergies Active Allergy Reactions Criticality Noted Date Comments Carbamazepine Rash Medium 02/20/2018 documented as of this encounter (statuses as of 01/16/2024) Medications Medication Sig Dispensed Refills Start Date End Date Status Thiamine HCl 100 MG Oral Tablet (vitamin B-1) Take 1 Tablet by mouth daily. Active Lidocaine-Prilocai ne 2.5-2.5 % External Cream [...] starting the day before chemotherapy 48 Tablet 04/13/2023 Active Additional Information Patient not taking.Reported [...] as needed for Pain, Moderate. 42 mL 09/09/2023 Active Additional Information Patient not taking.Reported on 11/29/2023 Escitalopram Oxalate 10 MG Oral Tablet (Lexapro) 1/2 tab daily x 7 days then 1 tab daily at bedtime 30 Tablet 5 09/22/2023 Active Peptamen 1.5 Oral Liquid 55ml/hr via NJ tube continuously 25103 mL 2 09/28/2023 Active Vitamin D (Cholecalciferol) 50 MCG (2000 UT) Oral Capsule Take 1 Capsule by mouth daily. Follow up with your primary care provider for further management. 30 Capsule 09/29/2023 Active Ondansetron HCl 8 MG Oral [...] Additional Information Patient not taking.Reported on 11/29/2023 Pantoprazole Sodium 20 MG Oral Tablet Delayed Release (Protonix) Take 1 Tablet by mouth in the morning. Active Ondansetron HCl 4 MG Oral Tablet Take 1 Tablet by mouth every 8 hours as needed for Nausea. Active documented as of this encounter (statuses as of 01/16/2024) Active Problems Problem Noted Date Diagnosed Date [...] as of this encounter (statuses as of 01/16/2024) Immunizations Name Administration Dates Next Due TDAP [...] Miscellaneous Notes * Telephone Encounter - Prachi Fonseca OSA - 10/17/2023 12:06 PM EST Reason for patient's call: Christie from [facility] ER. ER doctor requesting to speak with . Caller was transferred to [place] at the clinic. documented in this encounter Plan of Treatment Upcoming Encounters Date Type Department Care Team (Late st Contact Info) Description 02/21/2024 9:00 AM EDT Laboratory Laboratory [address] [place] [address] [place] [address] 02/21/2024 9:15 AM EDT Immunization/Injectio n Hematology/Oncology Treatment, [place] [address] [place] [id number] Nurse, Med [address] [place] [address] 02/28/2024 7:45 AM EDT Office Visit Hematology/Oncology [facility] [address] [place] [phone] Cipriano Kuhn MD [address] [place] [address] 04/26/2024 9:20 AM EDT Office Visit Gastroenterology, [facility] [address] [phone] Georgi Long MD [address] [place] [id number] Scheduled Procedures Name Priority Associated Diagnoses Date/Ti [...] this encounter Medical Devices Implanted Type Area Special Education Teachers Device Identifier Shelf Expiration Date Model / Serial / Lot Cement Hydroset Injectable 5cc - [id number] Implanted:Qty : 1 on 03/15/2018 by Ronak Khoury MD at OR [facility] Left: Head JOHN 11/09/2019 [id number] / / [id number] Needle Fiducial 22ga - [id number] Implanted:Qty : 1 on 04/01/2023 by Karson Goddard MD at ENDOSCOPY [facility] N/A: Esophagus GIVEN IMAGING [id number] 01/12/2025 [id number]-22-01 / / [id number] Stent Wallf Esoph [id number] - [id number] Implanted:Qty : 1 on 04/01/2023 by Karson Goddard MD at ENDOSCOPY [facility] N/A: Esophagus [employer] : ENDOSCOPY [id number] 09/09/2024 [id number] / / [id number] Power Port 8fr Sngl Lumen Plas - [id number] Implanted:Qty : 1 on 04/19/2023 by Thaddeus Brown, at OR [facility] Right: Chest CR BARD : PERIPHERAL VASCULAR [id number] 06/14/2024 [id number] / / [id number] documented as of this encounter Advance Directives * Full Code (Latest Code Status on File) Date Activated Date Inactivated Comments 09/26/2023 11:35 PM 09/29/2023 5:11 PM Question Answer Comments Discussion of Advance Direct alec occurred with: Not Discussed due to patient's condition * Full Code Date Activated Date Inactivated Comments 09/02/2023 4:06 PM 09/05/2023 6:42 PM Question Answer Comments Discussion of Advance Directives occurred with: Patient * Full Code Date Activated Date Inactivated Comments 08/02/2023 3:49 PM 08/08/2023 2:04 PM This order reflects the patients wishes and were consensually agreed upon. Question Answer Comments Discussion of Advance Direct alec occurred with: Not Discussed due to patient's condition Does the patient have a Living Will? No * Full Code Date Activated Date Inactivated Comments 08/02/2023 11:11 AM 08/02/2023 3:49 PM Question Answer Comments Discussion of Advance Direct alec occurred with: Not Discussed due to patient's condition * Full Code Date Activated Date Inactivated Comments 03/31/2023 7:07 PM 04/03/2023 3:41 PM This order r eflects the patients wishes and were consensually agreed upon. Question Answer Comments Discussion of Advance Directives occurred with: Patient Does the patient have a Living Will? No Does the patient have Health Care Power of Attor yves? No Care Teams Carbon Coater Machine Operator Relationship Specialty Start Date End Date Thaddeus Solis MD [address] [facility] [place] [address] PCP - General Family Medicine 09/12/23 documented as of this encounter
--- OUTSIDE RECORDS SUMMARY | 2024-02-13 12:01 | External Medical Summary | Summary of Care ---
Author Name Unknown Organization [facility] Address [address] [place] [address] Phone [phone] Care Team Providers Care Water Quality Control Engineer Name Role Phone Thaddeus Solis MD Primary Care Provider [phone] Reason for Visit * Reason Onset Date Comments Order Request 10/11/2023 Need new order w ith new start date Encounter Details Date Type Department Care Team (Late st Contact Info) Description 10/11/2023 Telephone [facility] [address] [place] [address] Thaddeus Solis MD [address] [place] [address] Order Request (Need new order with new sta... Allergies Active Allergy Reactions Criticality Noted Date Comments Carbamazepine Rash Medium 02/20/2018 documented as of this encounter (statuses as of 01/10/2024) Medications Medication Sig Dispensed Refills Start Date End Date Status Thiamine HCl 100 MG Oral Tablet (vitamin B-1) Take 1 Tablet by mouth daily. Active Lidocaine-Prilo irma 2.5-2.5 % External Cream [...] starting the day before chemotherapy 48 Tablet 3 Active Additional Information Patient not taking.Reported on 09/22/2023 Acetaminophen 160 MG/5ML Oral Liquid (Tylenol)Indica tions:Malignant neoplasm of lower third of esophagus (HCC) Take 20.3 mL by mouth every 4 hours as needed for Pain, Breakthrough. 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 42 mL 4 Active Additional Information Patient not taking.Reported on 11/29/2023 Escitalopram Oxalate 10 MG Oral Tablet (Lexapro) 1/2 tab daily x 7 days then 1 tab daily at bedtime 30 Tablet 5 4 Active Peptamen 1.5 Oral Liquid 55ml/hr via [place] tube continuously 79112 mL 2 4 Active Vitamin D (Cholecalcifero l) 50 MCG (1999 UT) Oral Capsule Take 1 Capsule by mouth daily. Follow up with your primary care provider for further management. 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 30 Tablet 2 4 Active Additional Information Patient not taking.Reported on 11/29/2023 Pantoprazole Sodium 20 MG Oral Tablet Delayed Release (Protonix) Take 1 Tablet by mouth in the morning. Active Ondansetron HCl 4 MG Oral Tablet Take 1 Tablet by mouth every 8 hours as needed for Nausea. Active Vitamin B-12 1000 MCG Oral Tablet (Cyanocobalamin )Indications:Ma lignant neoplasm of lower third of esophagus (HCC) Take 1 Tablet by mouth in the morning. 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 30 Capsule 1 4 12/27/19 24 Discontinued(Med ication/Dose Changed) OLANZapine 5 MG Oral Tablet (ZyPREXA) Take 1 Tablet by mouth at bedtime. 11/04/19 24 Discontinued documented as of this encounter (statuses as of 01/10/2024) Active Problems Problem Noted Date Diagnosed Date [...] as of this encounter (statuses as of 01/10/2024) Immunizations Name Administration Dates Next Due TDAP [...] encounter Miscellaneous Notes * Telephone Encounter - Sendy Mata OSA - 10/11/2023 9:30 AM EST [place] they need a new start of care date for the or the Fax over [phone] documented in this encounter Plan of Treatment Upcoming Encounters Date Type Department Care Team (Late st Contact Info) Description 02/21/2024 9:00 AM EDT Laboratory Laboratory [address] [place] [address] [place] [address] 02/21/2024 9:15 AM EDT Immunization/Injectio n Hematology/Oncology Treatment, [place] [address] [place] [address] Nurse, Med [address] [place] [address] 02/28/2024 7:45 AM EDT Office Visit Hematology/Oncology [facility] [address] [place] [phone] Cipriano Kuhn MD [address] [place] [address] 04/26/2024 9:20 AM EDT Office Visit Gastroenterology, [facility] [address] [place] [address] Georgi Long MD [address] [place] [address] Scheduled Procedures Name Priority Associated Diagnoses Date/Ti [...] this encounter Medical Devices Implanted Type Area Funnel Coater Device Identifier Shelf Expiration Date Model / Serial / Lot Cement Hydroset Injectable 5cc - [id number] Implanted:Qty : 1 on 03/15/2018 by Ronak Khour[place] [facility] [place] Head JOHN 11/09/2019 [id number] / / [id number] Needle Fiducial 22ga - [id number] Implanted:Qty : 1 on 04/01/2023 by Karson Goddard MD at [place] [facility] [place]A: Esophagus GIVEN IMAGING [id number] 01/12/2025 DSF-22-01 / / [id number] Stent Wallf Esoph 23/[id number] - [id number] Implanted:Qty : 1 on 04/01/2023 by Karson Goddard MD at [place] [facility] [place]/A: Esophagus [employer] : ENDOSCOPY [id number] 09/09/2024 [id number] / / [id number] Power Port 8fr Sngl Lumen Plas - [id number] Implanted:Qty : 1 on 04/19/2023 by Thaddeus Brown DO at OR [facility] Right: Chest CR BARD : PERIPHERAL VASCULAR [id number] 06/14/2024 [id number] / / [id number] documented as of this encounter Advance Directives [...] Power of Attor yves? No Care Teams Water Quality Control Engineer Relationship Specialty Start Date End Date Thaddeus Solis MD [address] [place] [address] PCP - General Family Medicine 09/12/23 documented as of this encounter
--- OUTSIDE RECORDS SUMMARY | 2024-02-13 12:01 | External Medical Summary | Summary of Care ---
Author Name Unknown Organization [facility] Address [address] [place] [address] Phone [phone] Care Team Providers Care Boarder Hand Name Role Phone Thaddeus Solis MD Primary Care Provider [phone] Reason for Visit * Reason Onset Date Comments Encounter Created in Error 10/05/2023 Encounter Details Date Type Department Care Team (Late st Contact Info) Description 10/05/2023 Telephone [facility] [address] [place] [address] Thaddeus Solis MD [address] [place] [address] Encounter Created in Error Allergies Active Allergy Reactions Criticality Noted Date Comments Carbamazepine Rash Medium 02/20/2018 documented as of this encounter (statuses as of 01/04/2024) Medications Medication Sig Dispensed Refills Start Date [...] Oral Liquid 55ml/hr via [place] tube continuously 58353 mL 2 09/28/2023 Active Vitamin D (Cholecalciferol) [...] Additional Information Patient not taking.Reported on 11/29/2023 documented as of this encounter (statuses as of 01/04/2024) Active Problems Problem Noted Date Diagnosed Date [...] as of this encounter (statuses as of 01/04/2024) Immunizations Name Administration Dates Next Due TDAP [...] No 09/26/2023 documented as of this encounter Plan of Treatment Upcoming Encounters Date Type Department Care Team (Late st Contact Info) Description 01/10/2024 10:00 AM EDT Nurse Only Hematology/Oncology Treatment, [place] [address] [place] [phone] Nurse, Med [address] [place] [address] 02/21/2024 9:00 AM EDT Laboratory Laboratory [address] [place] [phone] [place], [address] [place] [address] 02/28/2024 7:45 AM EDT Office Visit Hematology/Oncology [facility] [address] [place] [address] Cipriano Kuhn MD [address] [place] [address] 04/26/2024 9:20 AM EDT Office Visit Gastroenterology, [facility] [place] [address] Georgi Long MD [address] [place] [address] Scheduled Procedures Name Priority Associated Diagnoses Date/Ti [...] encounter Medical Devices Implanted Type Area Creative Developer Device Identifier Shelf Expiration Date Model / Serial / Lot Cement Hydroset Injectable 5cc - [id number] Implanted:Qty : 1 on 03/15/2018 by Ronak Khoury MD at [place] [facility] [place] Left: Head JOHN 11/09/2019 [id number] / / [id number] Needle Fiducial 22ga - [id number] Implanted:Qty : 1 on 04/01/2023 by Karson Goddard MD at [place]OSCOPY [facility] [place] N/A: Esophagus GIVEN IMAGING [id number] 01/12/2025 DSF-22-01 / / [id number] Stent Wallf Esoph 23/[id number] - [id number] Implanted:Qty : 1 on 04/01/2023 by Karson Goddard MD at ENDOSCOPY [facility] [place] N/A: Esophagus [employer] : ENDOSCOPY [id number] 09/09/2024 [id number] / / [id number] Power Port 8fr Sngl Lumen Plas - [id number] Implanted:Qty : 1 on 04/19/2023 by Thaddeus Brown DO at OR [facility] Right: Chest CR BARD : PERIPHERAL VASCULAR [id number] 06/14/2024 [id number] / / [id number] documented as of this encounter Advance Directives [...] Power of Attor yves? No Care Teams Boarder Hand Relationship Specialty Start Date End Date Thaddeus Solis MD [address] [place] [address] PCP - General Family Medicine 09/12/23 documented as of this encounter
--- OUTSIDE RECORDS SUMMARY | 2024-02-13 12:01 | External Medical Summary | Summary of Care ---
Author Name Unknown Organization [facility] Address [address] [place] [address] Phone [phone] Care Team Providers Care Environmental Field Office Manager Name Role Phone Thaddeus Solis MD Primary Care Provider [phone] Encounter Details Date Type Department Care Team (Late st Contact Info) Description 10/12/2023 Telephone [facility] [address] [place] [address] Thaddeus Solis MD [address] [place] [address] Allergies Active Allergy Reactions Criticality Noted Date Comments Carbamazepine Rash Medium 02/20/2018 documented as of this encounter (statuses as of 01/11/2024) Medications Medication Sig Dispensed Refills Start Date End Date Status Thiamine HCl 100 MG Oral Tablet (vitamin B-1) Take 1 Tablet by mouth daily. Active Lidocaine-Prilo irma 2.5-2.5 % External Cream (Emla)Indicatio ns:Malignant neoplasm of lower third of esophagus (HCC) APPLY TO SKIN OVER MEDIPORT & COVER 1HR PRIOR TO ACCESSING. 30 g 1 08/30/202 3 Active Additional Information Patient not taking.Reported [...] Oral Liquid 55ml/hr via [place] tube continuously 46296 mL 2 4 Active Vitamin D (Cholecalcifero [...] by mouth at bedtime. 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 Solis has filled out a written script out for the patients Lorazepam that she can stop in the office to tack picker. Also informed her that perDr. Solis he is does not know much about doing the patients nausea medication through IV so he didsend a message to inquire about this. Patients should be stopping in the office to tack picker theprescription. documented in this encounter Plan of Treatment Upcoming Encounters Date Type Department Care Team (Late st Contact Info) Description 02/21/2024 9:00 AM EDT Laboratory Laboratory [address] [place] [phone] [place] [address] 02/21/2024 9:15 AM EDT Immunization/Injectio n Hematology/Oncology Treatment, [place] [address] [place] [address] Nurse, Med 4 [address] [facility] [place], [place] [address] 02/28/2024 7:45 AM EDT Office Visit Hematology/Oncology [facility] [place] [address] [place] [address] Cipriano Kuhn MD [address] [place] [address] 04/26/2024 9:20 AM EDT Office Visit Gastroenterology, [facility] [address] [place] [address] Georgi Long MD [address] [place] [address] Scheduled Procedures Name Priority Associated Diagnoses Date/Ti [...] encounter Medical Devices Implanted Type Area Director Of Strategic Initiatives Device Identifier Shelf Expiration Date Model / Serial / Lot Cement Hydroset Injectable 5cc - [id number] Implanted:Qty : 1 on 03/15/2018 by Ronak Khoury MD [place] [facility] [place] Head JOHN 11/09/2019 [id number] / / [id number] Needle Fiducial 22ga - [id number] Implanted:Qty : 1 on 04/01/2023 by Karson Goddard MD [place] [facility] [place]A: Esophagus GIVEN IMAGING [id number] 01/12/2025 DSF-22-01 / / [id number] Stent Wallf Esoph 23/[id number] - [id number] Implanted:Qty : 1 on 04/01/2023 by Karson Goddard MD [place] [facility] [place]A: Esophagus [employer] : ENDOSCOPY [id number] 09/09/2024 [id number] / / [id number] Power Port 8fr Sngl Lumen Plas - [id number] Implanted:Qty : 1 on 04/19/2023 by Thaddeus Brown DO at OR [facility] Right: Chest CR BARD : PERIPHERAL VASCULAR [id number] 06/14/2024 [id number] / / [id number] documented as of this encounter Advance Directives [...] Power of Attor yves? No Care Teams Environmental Field Office Manager Relationship Specialty Start Date End Date Thaddeus Solis MD [address] [facility] [place] [address] PCP - General Family Medicine 09/12/23 documented as of this encounter
--- OUTSIDE RECORDS SUMMARY | 2024-02-13 12:01 | External Medical Summary | Summary of Care ---
Author Name Unknown Organization [facility] Address [address] [place] [address] Phone [phone] Care Team Providers Care Boat Washer Name Role Phone Thaddeus Solis MD Primary Care Provider [phone] Reason for Visit * Reason Comments Procedure Port flush Encounter Details Date Type Department Care Team (Late st Contact Info) Description 01/10/2024 10:00 AM EDT Nurse Only Hematology/Oncology Treatment, [place] [address] [place] [address] Nurse, Med [address] [place] [address] Procedure (Port flush) Allergies Active Allergy Reactions Criticality Noted Date [...] Oral Liquid 55ml/hr via [place] tube continuously 73503 mL 2 09/28/2023 Active Vitamin D (Cholecalciferol) 50 MCG (1999 [...] 8 hours as needed for Nausea. 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 30 Tablet 5 11/02/2023 Active OLANZapine 5 MG Oral Tablet (zyPREXA) TAKE 1 TABLET BY MOUTH AT BEDTIME FOR NAUSEA 90 Tablet 1 11/04/2023 Active Aprepitant 80 MG Oral Capsule (Emend) Take 1 Capsule by mouth daily as needed for Nausea. Active documented as [...] No 09/26/2023 documented as of this encounter Nursing Notes * Edie Ramirez RN - 01/10/2024 10:22 AM EDT Chair 10 VAD (Venous Access Device) accessed with #20G 3/4" without difficulty. VAD flushed with 10 ml NSS and Heparin 5 ml (100 units/ml). Bird needle removed intact. Patient tolerated treatment well and was discharged in stable condition. documented in this encounter Plan of Treatment Upcoming Encounters Date Type Department Care Team (Late st Contact Info) Description 02/21/2024 9:00 AM EDT Laboratory Laboratory [address] [place] [address] [place] [address] 02/21/2024 9:15 AM EDT Immunization/Injectio n Hematology/Oncology Treatment, [place] [address] [place] [address] Nurse, Med [address] [place] [address] 02/28/2024 7:45 AM EDT Office Visit Hematology/Oncology [facility] [address] [place] [phone] Cipriano Kuhn MD [address] [place] [address] 04/26/2024 9:20 AM EDT Office Visit Gastroenterology, [facility] [address] [place] [address] Georgi Long MD [address] [place] [address] Scheduled Procedures Name Priority Associated Diagnoses Date/Ti [...] this encounter Medical Devices Implanted Type Area Vibrating Screen Operator Device Identifier Shelf Expiration Date Model / Serial / Lot Cement Hydroset Injectable 5cc - [id number] Implanted:Qty : 1 on 03/15/2018 by Ronak Khoury [place] [facility] [place]: Head JOHN 11/09/2019 [id number] / / [id number] Needle Fiducial 22ga - [id number] Implanted:Qty : 1 on 04/01/2023 by Karson Goddard MD [place] [facility] [place]A: Esophagus GIVEN IMAGING [id number] 01/12/2025 DSF-22-01 / / [id number] Stent Wallf Esoph 23/[id number] - [id number] Implanted:Qty : 1 on 04/01/2023 by Karson Goddard MD [place] [facility] [place]/A: Esophagus [employer] : ENDOSCOPY [id number] 09/09/2024 [id number] / / [id number] Power Port 8fr Sngl Lumen Plas - [id number] Implanted:Qty : 1 on 04/19/2023 by Thaddeus Brown DO at OR [facility] Right: Chest CR BARD : PERIPHERAL VASCULAR [id number] 06/14/2024 [id number] / / [id number] documented as of this encounter Visit Diagnoses Diagnosis History of esophageal cancer- Primary Personal history of malignant neoplasm of esophagus documented in this encounter Administered Medications Active Administered Medications - up to 3 most recent administrations Medication Order MAR Action Action Date Dose Rate Site hEParin 100 UNIT/ML Lock Flush inj 500 Units 500 Units (5 mL), IV Lock, PRN Other, IV Flush, Starting on Tue01/10/24 at 1009, Until Tue01/11/24 at 1008, For 24 hours, Do not flush if lock, PICC, or central line not in place; IV infusing or unable to flush. Given 01/10/2024 10:11 AM EDT 500 Units sodium chloride 0.9 % flush central line 10 mL 10 mL, IV Push, PRN Other, IV Flush, Starting on Tue01/10/24 at 1009, Until Tue01/11/24 at 1008, For 24 hours, Do not flush if lock, PICC, or central line not in place; IV infusing or unable to flush. Given 01/10/2024 10:11 AM EDT 10 mL documented in this encounter Advance Directives * Full Code [...] Power of Attor yves? No Care Teams Boat Washer Relationship Specialty Start Date End Date Thaddeus Solis MD [address] [place] [facility] [place] [address] PCP - General Family Medicine 09/12/23 documented as of this encounter
--- OUTSIDE RECORDS SUMMARY | 2024-02-13 12:01 | External Medical Summary | Summary of Care ---
Author Name Unknown Organization [facility] Address [address] [place] [address] Phone [phone] Care Team Providers Care Veneer Sample Maker Name Role Phone Thaddeus Solis MD Primary Care Provider [phone] Reason for Visit * Reason Onset Date Comments Advice 09/28/2023 Encounter Details Date Type Department Care Team (Late st Contact Info) Description 09/28/2023 Telephone Otolaryngology/Head & Neck/Facial Plastic Surgery [address] [place] [address] Services, Scheduling [address] [place] [address] Advice Allergies Active Allergy Reactions Criticality Noted Date Comments Carbamazepine Rash Medium 02/20/2018 documented as of this encounter (statuses as of 12/28/2023) Medications Medication Sig Dispensed Refills Start Date [...] as of this encounter (statuses as of 12/28/2023) Active Problems Problem Noted Date Diagnosed Date [...] as of this encounter (statuses as of 12/28/2023) Immunizations Name Administration Dates Next Due TDAP [...] Telephone Encounter - Livier Hong RN - 09/28/2023 11:57 AM EST Patient is currently admitted. Prior message was sent to general hardware salesperson team. * Telephone Encounter - Naun Marte OSA - 09/28/2023 11:20 AM EST Patients called requesting to speak with a nurse she has some questions about the patient documented in this encounter Plan of Treatment Upcoming Encounters Date Type Department Care Team (Late st Contact Info) Description 01/10/2024 10:00 AM EDT Nurse Only Hematology/Oncology Treatment, [place] [address] [facility] [place] [phone] Nurse, Med 200 [facility] [place] [address] 02/21/2024 9:00 AM EDT Laboratory Laboratory [address] [place] [address] [place] [address] 02/28/2024 7:45 AM EDT Office Visit Hematology/Oncology [facility] [place] [address] [facility] [place] [address] Cipriano Kuhn MD [address] [facility] [place] [address] 04/26/2024 9:20 AM EDT Office Visit Gastroenterology, [facility] [address] [place] [address] Georgi Long MD [address] [place] [address] Scheduled Procedures Name Priority Associated Diagnoses Date/Ti [...] this encounter Medical Devices Implanted Type Area Aba Therapist Device Identifier Shelf Expiration Date Model / Serial / Lot Cement Hydroset Injectable 5cc - [id number] Implanted:Qty : 1 on 03/15/2018 by Ronak Khoury MD at [place] [facility] [place] Left: Head JOHN 11/09/2019 [id number] / / [id number] 37 Needle Fiducial 22ga - [id number] Implanted:Qty : 1 on 04/01/2023 by Karson Goddard MD at ENDOSCOPY [facility] [place] N/A: Esophagus GIVEN IMAGING [id number] 01/12/2025 DSF-22-01 / / [id number] Stent Wallf Esoph 23/32rdm16bx - [id number] Implanted:Qty : 1 on 04/01/2023 by Karson Goddard MD at ENDOSCOPY [facility] [place] N/A: Esophagus [employer] : ENDOSCOPY [id number] 09/09/2024 [id number] / / [id number] Power Port 8fr Sngl Lumen Plas - [id number] Implanted:Qty : 1 on 04/19/2023 by Thaddeus Brown DO at OR [facility] Right: Chest CR BARD : PERIPHERAL VASCULAR [id number] 06/14/2024 [id number] / / [id number] documented as of this encounter Advance Directives [...] the patient have Health Care Power of National Sales Associate? No Care Teams Veneer Sample Maker Relationship Specialty Start Date End Date Thaddeus Solis MD [address] [place] [address] PCP - General Family Medicine 09/12/23 documented as of this encounter
--- OUTSIDE RECORDS SUMMARY | 2024-02-13 12:02 | External Medical Summary | Summary of Care ---
Author Name Unknown Organization [facility] Address [address] [place] [address] Phone [phone] Care Team Providers Care Flatwork Presser Name Role Phone Thaddeus Solis MD Primary Care Provider [phone] Reason for Visit * Reason Onset Date Comments Hospital Follow-Up 12/26/2023 BELEN Encounter Details Date Type Department Care Team (Late st Contact Info) Description 12/26/[address] [address] Cathi Do, JANA Hospital Follow-Up (BELEN) Allergies Active Allergy Reactions Criticality Noted Date Comments Carbamazepine Rash Medium 02/20/2018 documented as of this encounter (statuses as of 12/26/2023) Medications Medication Sig Dispensed Refills Start Date [...] Oral Liquid 55ml/hr via NJ tube continuously 89503 mL 2 09/28/2023 Active Vitamin D (Cholecalciferol) [...] as of this encounter (statuses as of 12/26/2023) Active Problems Problem Noted Date Diagnosed Date [...] as of this encounter (statuses as of 12/26/2023) Immunizations Name Administration Dates Next Due TDAP [...] Telephone Encounter - Cathi Do RN - 12/26/2023 11:09 AM EDT Transitions of Care Note Reason for Referral:Recent Admission Phone visit for follow up: BELEN #1 Admitted to: [facility], Date: 12/22/2023 Discharged to: Home, Date: 12/24/2023 Diagnosis driving hospitalization: Intractable Nausea and Vomiting Attempted BELEN - no answer. Message left to return call. [phone] or . Cathi Do RN documented in this encounter Plan of Treatment Upcoming Encounters Date Type Department Care Team (Late st Contact Info) Description 01/10/2024 10:00 AM EDT Nurse Only Hematology/Oncology Treatment, [place] [address] [place] [address] Nurse, Med 4 [address] [facility] [address] 02/21/2024 9:00 AM EDT Laboratory Laboratory [address] [place] [phone] [address] [place] [address] 02/28/2024 7:45 AM EDT Office Visit Hematology/Oncology [facility] [address] [place] [address] Cipriano Kuhn MD [address] [facility] [place] [address] 04/26/2024 9:20 AM EDT Office Visit Gastroenterology, [facility] [address] [place] [address] Georgi Long MD [address] [place] [address] Scheduled Procedures Name Priority Associated Diagnoses Date/Ti [...] this encounter Medical Devices Implanted Type Area Material Mixer Device Identifier Shelf Expiration Date Model / Serial / Lot Cement Hydroset Injectable 5cc - [id number] Implanted:Qty : 1 on 03/15/2018 by Roank Khoury MD at OR [facility] Left: Head JOHN 11/09/2019 [id number] / / [id number] Needle Fiducial 22ga - [id number] Implanted:Qty : 1 on 04/01/2023 by Karson Goddard MD at ENDOSCOPY [facility] N/A: Esophagus GIVEN IMAGING [id number] 01/12/2025 DSF-22-01 / / [id number] Stent Wallf Esoph 23/[id number] - [id number] Implanted:Qty : 1 on 04/01/2023 by Karson Goddard MD at ENDOSCOPY [facility] N/A: Esophagus [employer] : ENDOSCOPY [id number] 09/09/2024 [id number] / / [id number] Power Port 8fr Sngl Lumen Plas - [id number] Implanted:Qty : 1 on 04/19/2023 by Thaddeus Brown DO at OR [facility] Right: Chest CR BARD : PERIPHERAL VASCULAR [id number] 06/14/2024 [id number] / / [id number] documented as of this encounter Advance Directives [...] the patient have Health Care Power of Manufacturer'S Representative? No Care Teams Flatwork Presser Relationship Specialty Start Date End Date Thaddeus Solis MD [address] [place] [address] PCP - General Family Medicine 09/12/23 documented as of this encounter
--- OUTSIDE RECORDS SUMMARY | 2024-02-13 12:02 | External Medical Summary | Summary of Care ---
Author Name Unknown Organization [facility] Address [address] [place] [address] Phone [phone] Care Team Providers Care Comic Book Designer Name Role Phone Thaddeus Solis MD Primary Care Provider Reason for Visit * Reason Onset Date Comments Advice 09/26/2023 Encounter Details Date Type Department Care Team (Late st Contact Info) Description 09/26/2023 Telephone General Surgery, [place] [address] [place] [address] Praveen Edmonds MD [address] [place] [address] Advice Allergies Active Allergy Reactions [...] Telephone Encounter - Livier Hong RN - 09/26/2023 4:[address] Edmonds called [place]. Will plan for direct admission from home for management and possible feeding tube placement or TPN. * Telephone Encounter - Desi Bonilla OSA - 09/26/2023 3:45 PM EST calling pt is not eating. Pt has been to the ED and was given fluids and sent home. She is asking for someone to put a feeding tube in as he is starving to . Pt is too weak to ambulate; shewill have to call an ambulance to get him to [place]. Please call back WILLIAM Thank you GLADIS Burrell documented in this encounter Plan of Treatment Upcoming Encounters Date Type Department Care Team (Late st Contact Info) Description 01/10/2024 10:00 AM EDT Nurse Only Hematology/Oncology Treatment, [place] [address] [place] [address] Nurse, Med [address] [place] [address] 02/21/2024 9:00 AM EDT Laboratory Laboratory [address] [place] [phone] [place] [address] 02/28/2024 7:45 AM EDT Office Visit Hematology/Oncology [facility] [address] [facility] [place] [phone] Cipriano Kuhn MD [address] [facility] [place] [address] 04/26/2024 9:20 AM EDT Office Visit Gastroenterology, [facility] [address] [place] [address] Georgi Long MD [address] [place] [address] Scheduled Procedures Name Priority Associated Diagnoses Date/Ti [...] this encounter Medical Devices Implanted Type Area Brand Advocate Device Identifier Shelf Expiration Date Model / Serial / Lot Cement Hydroset Injectable 5cc - [id number] Implanted:Qty : 1 on 03/15/2018 by Ronak Khoury MD [place] [facility] [place]: Head JOHN 11/09/2019 [id number] / / [id number] Needle Fiducial 22ga - [id number] Implanted:Qty : 1 on 04/01/2023 by Karson Goddard MD [place] [facility] [place]/A: Esophagus GIVEN IMAGING [id number] 01/12/2025 DSF-22-01 / / [id number] Stent Wallf Esoph 23/[id number] - [id number] Implanted:Qty : 1 on 04/01/2023 by Karson Goddard MD at [place] [facility] N/A: Esophagus [employer] : ENDOSCOPY [id number] 09/09/2024 [id number] / / [id number] Power Port 8fr Sngl Lumen Plas - [id number] Implanted:Qty : 1 on 04/19/2023 by Thaddeus Brown DO at OR [facility] Right: Chest CR BARD : PERIPHERAL VASCULAR [id number] 06/14/2024 [id number] / / [id number] documented as of this encounter Advance Directives [...] the patient have Health Care Power of Jammer Operator? No Care Teams Comic Book Designer Relationship Specialty Start Date End Date Thaddeus Solis MD [address] [facility] [place] [address] PCP - General Family Medicine 09/12/23 documented as of this encounter
--- OUTSIDE RECORDS SUMMARY | 2024-02-13 12:02 | External Medical Summary | Summary of Care ---
Author Name Unknown Organization [facility] Address [address] [place] [address] Phone [phone] Care Team Providers Care Butadiene Converter Helper Name Role Phone Thaddeus Solis MD Primary Care Provider [phone] Reason for Visit * Reason Onset Date Comments Hospital Follow-Up 12/26/2023 BELEN Encounter Details Date Type Department Care Team (Late st Contact Info) Description 12/26/[address] [address] Brianna Do, JANA Hospital Follow-Up (BELEN) Allergies Active Allergy Reactions Criticality Noted Date Comments Carbamazepine Rash Medium 02/20/2018 documented as of this encounter (statuses as of 12/27/2023) Medications Medication Sig Dispensed Refills Start Date [...] 11/29/2023 Morphine Sulfate (Concentrate) 100 MG/5ML Oral SolutionIndicatio [...] Oral Liquid 55ml/hr via NJ tube continuously 83010 mL 2 09/28/2023 Active Vitamin D (Cholecalciferol) [...] 11/29/2023 Prochlorperazine Maleate 10 MG Oral Tablet (Compazine)Indica [...] 0 Active LORazepam 0.5 MG Oral Tablet (Ativan)Indicatio ns: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 30 Capsule 1 10/04/2023 Discontinue d(Medicatio n/Dose Changed) documented as of this encounter (statuses as of 12/27/2023) Active Problems Problem Noted Date Diagnosed Date [...] as of this encounter (statuses as of 12/27/2023) Immunizations Name Administration Dates Next Due TDAP [...] encounter Miscellaneous Notes * Addendum Note - Brianna Do RN - 12/27/2023 1:25 PM EDTAddended by: BRIANNA DO on: 12/27/2023 01:25 PM Modules accepted: Orders * Telephone Encounter - Brianna Do RN - 12/26/2023 11:09 AM EDT Transitions of Care Note Reason for Referral:Recent Admission Phone visit for follow up: BELEN #1 Admitted to: [facility], Date: 12/22/2023 Discharged to: Home, Date: 12/24/2023 Diagnosis driving hospitalization: Intractable Nausea and Vomiting Attempted BELEN - no answer. Message left to return call. [phone] or . Brianna Do RN Transitions of Care Note Reason for Referral:Recent Admission Phone visit for follow up: BELEN #2 Admitted to: [facility], Date: 12/22/2023 Discharged to: Home, Date: 12/24/2023 Diagnosis driving hospitalization: Intractable Nausea and Vomiting Source/Contact: Spouse SUBJECTIVE Consent: Verbal consent for review of hospital discharge: Yes REVIEW OF SYSTEMS Patient/Other Reports: Current patient/caregiver problems or concerns: states "so far so good." Encouraged smaller meals, hydration. Zofran, Compazine as needed. Emend was ordered at the pharmacy, tried this once before at home with good result. They will pick this up as soon as it comes in. Notified of appt with GI01/05/24, agreed CV: Denies problems Pulmonary: Denies problems Chills/Sweats/Fever:Denies chills/sweats Denies fever Appetite: As above Current diet: Regular Bowel: denies problems Bladder: denies problems Wound (If applicable): N/A Pain:Denies Sleep:Denies problems FUNCTIONAL STATUS: ADL'S: Needs Assistance With:N/A as pt is independent IADL'S: Needs Assistance With:N/A as pt is independent Cognitive and Mental Health: denies problems, alert and oriented x 3, and able to communicate, understand instructions, process information. MEDICATION RECONCILIATION Medications: Discussed new medication with . See above New medication: Emend ASSESSMENT Medication Risk Assessment: No risks identified Did patient fail outpatient treatment? Yes Discharge instructions available for review? Yes PLAN Symptom Monitoring Interventions:Member/caregiver education - signs and symptoms to contact PrimaryCare (DO NOT DELETE-Three powell symptoms patient is to report to PCP) 1. Chest Pain 2. SOB 3. Nausea/Vomiting Power Line Installer And RepairerBusiness Professor of Care interventions/Action Plan: PCP appt declined by , states they will follow up with GI Educated on role of BELEN completed with patient/caregiver. Educated patient/caregiver on patient right to have input on BELEN plan of care. Verification of Home Health/DME if indicated: NA Identified Care Gaps: No Care Gaps closed this call: Transition of Care follow-up communication Re-evaluation of Plan of Care and progress towards goals achievement: Patient education this visit: Verbal, Discussed PRN meds for Nausea/Vomiting. performance makeup artist Emend when available. Follow up with GI/PCP Plan to instructed to call Primary Care Provider with change in symptoms or as needed before next follow-up, discharge needs met, verbalizes understanding and agrees with plan. Brianna Do, RN documented in this encounter Plan of Treatment Upcoming Encounters Date Type Department Care Team (Late st Contact Info) Description 01/05/2024 8:00 AM EDT Office Visit Gastroenterology, [facility] [address] [address] Trista Lucero DO [address] [place] [address] 01/10/2024 10:00 AM EDT Nurse Only [facility]ematology/[facility]cology [facility], [place] [facility] [phone] Nurse, Med [address] [facility] [address] 02/21/2024 9:00 AM EDT Laboratory Laboratory [address] [place] [phone] [place], Lab [address] [place] [address] 02/28/2024 7:45 AM EDT Office Visit Hematology/Oncology [facility] [address] [place] [phone] Cipriano Kuhn MD [address] [facility] [address] 04/26/2024 9:20 AM EDT Office Visit [facility]enterology, [facility] [place] [address] Georgi Long MD [address] [place] [address] Scheduled Procedures Name Priority Associated Diagnoses Date/Ti [...] this encounter Medical Devices Implanted Type Area Pleater Hand Device Identifier Shelf Expiration Date Model / Serial / Lot Cement Hydroset Injectable 5cc - [id number] Implanted:Qty : 1 on 03/15/2018 by Ronak Khoury MD [place] [facility] [place] Left: Head JOHN 11/09/2019 [id number] / / [id number] Needle Fiducial 22ga - [id number] Implanted:Qty : 1 on 04/01/2023 by Karson Goddard MD at [place] [facility] [place] N/A: Esophagus GIVEN IMAGING [id number] 01/12/2025 DSF-22-01 / / [id number] Stent Wallf Esoph 23/[id number] - [id number] Implanted:Qty : 1 on 04/01/2023 by Karson Goddard MD [place] [facility] N/A: Esophagus [employer] : ENDOSCOPY [id number] 09/09/2024 [id number] / / [id number] Power Port 8fr Sngl Lumen Plas - [id number] Implanted:Qty : 1 on 04/19/2023 by Thaddeus Brown DO at OR [facility] Right: Chest CR BARD : PERIPHERAL VASCULAR [id number] 06/14/2024 [id number] / / [id number] documented as of this encounter Advance Directives [...] the patient have Health Care Power of Healthcare Marketer? No Care Teams Butadiene Converter Helper Relationship Specialty Start Date End Date Thaddeus Solis MD [address] [place] [address] PCP - General Family Medicine 09/12/23 documented as of this encounter
--- NOTE | 2024-02-13 14:07 | History & Physical Report ---
Date of Service February 13, 2024 Assessment & Plan (1) Intractable nausea and vomiting: (2) History of esophageal cancer: (3) Severe malnutrition: Plan This is a 58-year-old male with past medical history significant for esophageal/gastric cancer status post neoadjuvant chemotherapy/surgery, surgery consisted of total gastrectomy and trevin-en-Y esophagojejunal anastomosis, chronic anemia (baseline hemoglobin 12-13), history trigeminal neuralgia status post surgery, past tobacco abuse presents with nausea and vomiting x 2 days. Intractable nausea or vomiting Hx of gastric/esophageal ca s/p adjuvant chemo and s/p total gastrectomy and trevin en y esophagojejunal anastomosis sx exacerbated in setting of [place] the [place] before sx started conservative measures with IV antiemetics, fluids clear liquid diet, advance as tolerated --CT a/p without acute findings pt sx improving after fluids and IV emend in ED low threshold for GI consult if sx worsen or fail to improve q2h feeding due to hx of total gastrectomy per pt continue gentle IVF NSS + 20meq KCL x 2 more L cbc, cmp, mag in a.m. IV emend ordered prn x 1 dose to start / continue zyprexa Follows apryl Heme/onc, currently under observation since 07/2023 Hypomagnesemia mag 1.6 replace and repeat in a.m. Severe malnutrition in setting of hx of cancer on zyprexa weight has remained stable in last 6 months per our records Chronic anemia hgb stable, but suspected hemoconcentrated follow h/h DVT ppx: SQ Lovenox Dispo: admit to med/surg due to intractable n/v, likely able to discharge in next 1-2 days once tolerated diet FULL CODE PCP: Pt was seen and examined in collaboration with Dr. Song, please see addendum A total of 55 minutes was spent coordinating, documenting, and providing care for this patient excluding time spent in the performance of separately billed services. This included personally viewing all current laboratories and imaging studies, medication reconciliation, outpatient chart review, and discussion with specialists. History of Present Illness Chief Complaint: N/V x 2 days. Primary Care Provider: Thaddeus Solis MD This is a 58-year-old male with past medical history significant for esophageal/gastric cancer status post neoadjuvant chemotherapy/surgery, surgery considered of total gastrectomy and trevin-en-Y esophagojejunal anastomosis, chronic anemia (baseline hemoglobin 12-13), history trigeminal neuralgia status post surgery, past tobacco abuse presents with nausea and vomiting x 2 days. Sx started on tuesday morning. This started after he was at [place] with his [place] tuesday night and had 6 beers. His sister is at bedside who helps elicit history. Patients was having a procedure this a.m. and therefore unable to be present. He started vomiting tuesday. His vomiting mostly consists of, "dry heaving," due to hx of gastrectomy. Since Tuesday he has been unable to keep anything down and also reports few loose stools. He did have tomato soup yesterday and was able to keep that down. He has not had much to drink in the last 2 days. 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 He did have a tablet of emend at home, but after taking it vomited it back up. He denies any f/c/s, chest pain, sob, uri sx, abd pain, dysuria, increased urg/freq with urination, melena or hematoch ezia. 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 He wishes to start with some broth and feels up to eating something. He states he has to eat q2hrs due to hx of gastrectomy. He reports he is to f/u with heme/onc next week and currently is not undergoing any treatment. He is currently under observation since 07/2023. In ED pt remained hemodynamically stable. His CBC, CMP was generally unremarkable. His magnesium was mildly low. He received IV fluids and Emend and sx are gradually improving. Allergies Allergy/AdvReac Type Severity Reaction Status Date / Time carbamazepine [From Tegretol] Allergy Mild Rash Verified 02/13/24 11:18 Home Medications Medication Instructions Recorded Confirmed Type escitalopram oxalate 10 mg tablet 10 mg PO HS 12/22/23 02/13/24 History olanzapine 5 mg tablet 5 mg PO HS 12/22/23 02/13/24 History pantoprazole 40 mg tablet,delayed 40 mg PO BID Heartburn 12/22/23 02/13/24 History release cholecalciferol (vitamin D3) 50 50 mcg PO DAILY 02/13/24 02/13/24 History mcg (2,000 unit) tablet (Vitamin D3) cyanocobalamin (vitamin B-12) 500 500 mcg PO DAILYBD 02/13/24 02/13/24 History mcg tablet (Vitamin B-12) Past Med/Surg History Problem List (Updated 02/13/24 @ 13:58 by Kim Benitez PA-C) Intractable nausea and vomiting Medical History (Updated 02/13/24 @ 13:58 by Kim Benitez PA-C) History of esophageal cancer Severe malnutrition Anemia Esophageal cancer diagnosed 04/2023--chemo/ERCP 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 Edmonds/[facility] Eduardo History of recent blood transfusion 05/02/23 @ [facility] Enteropathogenic Escherichia coli infection Hyponatremia Trigeminal neuralgia Hypomagnesemia Vomiting and diarrhea Iron deficiency received blood transfusion 05/02/23 @ [facility] Surgical History History of colonoscopy History of esophagogastroduodenoscopy (EGD) History of tooth extraction partial upper and lower denture History of ERCP 04/2023 @ [facility] Eduardo History of vascular access device A port--power port in placed on right side of chest Family History (Updated 02/13/24 @ 13:52 by Kim Benitez PA-C) Father Stroke Social History (Updated 02/13/24 @ 13:52 by Kim Benitez PA-C) Smoking Status: Former smoker Second Hand Exposure: No; Do You Dip or Chew Tobacco: No; Hx Alcohol Use: Yes Alcohol type: beer Hx Substance Use: No Preferred Language: Irish Communication Ability: Effective Automotive Fuel Injection Servicer Required: No Beliefs That Will Affect Care: None marital status: Current Living Situation: Spouse Feels Safe at Home: Yes Assistive Devices: None Review of Systems Review of Systems: All systems reviewed & are unremarkable except as noted in HPI & below Physical Exam Physical Exam: please refer to attending addendum for physical exam findings. Results & Data Results & Data Vital Signs (Past 12 Hours) Vital Signs Temp Pulse Pulse Resp BP BP Pulse Ox 02/13/24 13:28 54 L 12 155/88 H 96 02/13/24 11:17 51 L 19 100 02/13/24 11:17 51 L 19 166/94 H 100 02/13/24 09:43 49 L 02/13/24 09:18 36.8 C 57 L 18 161/90 H 100 O2 Del Method 02/13/24 13:28 Room Air 02/13/24 11:17 Room Air 02/13/24 11:17 Room Air 02/13/24 09:43 02/13/24 09:18 Room Air Laboratory Results I have independently reviewed and interpreted patient's admitting labs including CBC, CMP, PTT, PT/INR, mag and lipase. Diagnostic Findings Abdomen/Pelvis CT 02/13/24 09:32 CT OF THE ABDOMEN AND PELVIS WITH CONTRAST CLINICAL HISTORY: Abdominal pain, nausea and vomiting. COMPARISON STUDY: CT of the abdomen and pelvis December 21, 2023. TECHNIQUE: Following IV administration of 93 mL of Optiray, axial images of the abdomen and pelvis were obtained from the lung bases to the proximal femurs. Images were reviewed in the axial, sagittal, and coronal planes. IV contrast was administered without complication. Automated exposure control was utilized for the study. A dose lowering technique was utilized adhering to the principles of ALARA. CT DOSE: 318.32 mGy.cm FINDINGS: A small hiatal hernia is present. There are postoperative findings consistent with gastrectomy. The postoperative appearance is unchanged. There is no operative bed fluid collection. There are no hepatic lesions. There is no biliary or pancreatic ductal dilatation. No peripancreatic or pericholecystic infiltration is present. The spleen, adrenal glands and kidneys are normal. There is no hydronephrosis. The caliber and wall thickness of small and large bowel are normal. There is no evidence for a bowel obstruction. Colonic diverticulosis without evidence for acute diverticulitis. The appendix is normal. No abdominal or pelvic lymphadenopathy is present. There are no fluid collections within the abdomen or pelvis. Major vasculature is patent. No suspicious lesions within the visualized skeletal structures are present. IMPRESSION: 1. No acute process within the abdomen or pelvis. 2. Stable findings following gastrectomy. No evidence for a bowel obstruction. 3. No bowel wall thickening. ACT 112: Negative or not required by law. Electronically signed by: Mele Umanzor M.D. 02/13/2024 11:50 AM Medications Administered Medication List Discontinued Medications Sodium Chloride (Nss) 1,000 mls @ 999 mls/hr IV .Q1H1M ONE Stop: 02/13/24 10:32 Last Infusion: 02/13/24 10:53 Dose: Infused Documented By: Admin: 02/13/24 09:44 Dose: 999 mls/hr Documented By: HS Fosaprepitant 150 mg/ Sodium (Chloride) 145 mls @ 300 mls/hr IV ONE ONE Stop: 02/13/24 10:06 Last Infusion: 02/13/24 10:45 Dose: Infused Documented By: Admin: 02/13/24 10:10 Dose: 300 mls/hr Documented By: HS Ioversol (Optiray 320 100ml) 93 ml IV ONCE ONE Stop: 02/13/24 11:04 Last Admin: 02/13/24 11:04 Dose: 93 ml Documented By: SH Ondansetron HCl (Ondansetron Inj 2 Mg/Ml 2 Ml Vial) 4 mg IV NOW STA Stop: 02/13/24 09:33 Last Admin: 02/13/24 09:44 Dose: Not Given Documented By: HS ECG Additional Comments: I have independently reviewed and interpreted patient's admitting EKG which revealed: sinus bradycardia, qtc wnl, no st or t wave change, pr 128ms COVID-19 Results Results COVID-19 Adm Lab Results: RBC 4.80 M/uL (4.70-6.10) 02/13/24 WBC 5.79 K/ul (4.8-10.8) 02/13/24 Hgb 14.0 g/dl (14.0-18.0) 02/13/24 Hct 40.7 % (42.0-52.0) L 02/13/24 Plt Count 258 K/uL (130-400) 02/13/24 Neutrophils (%) (Auto) 61.7 % 02/13/24 Lymphocytes (%) (Auto) 25.7 % 02/13/24 Monocytes # (Auto) 0.68 K/uL (0.11-0.59) H 02/13/24 Eosinophils # (Auto) 0.01 K/uL (0.00-0.50) 02/13/24 Immature Granulocyte % (Auto) 0.2 % 02/13/24 Neutrophils # (Auto) 3.57 K/uL (1.40-6.50) 02/13/24 Lymphocytes # (Auto) 1.49 K/uL (1.20-3.40) 02/13/24 Monocytes # (Auto) 0.68 K/uL (0.11-0.59) H 02/13/24 Eosinophils # (Auto) 0.01 K/uL (0.00-0.50) 02/13/24 Basophils # (Auto) 0.03 K/uL (0.00-0.20) 02/13/24 Immature Granulocyte # (Auto) 0.01 K/uL (0.01-0.20) 4 Na 138 mmol/L (136-145) 02/13/24 K 3.5 mmol/L (3.5-5.1) 02/13/24 Cl 103 mmol/L (98-107) 02/13/24 CO2 23 mmol/L (21-32) 02/13/24 Anion Gap 12 (3-11) H 02/13/24 BUN 10 mg/dl (6-23) 02/13/24 Creatinine 0.77 mg/dl (0.6-1.4) 02/13/24 BUN/Creatinine Ratio 13.0 (10-20) 02/13/24 Glucose Level 120 mg/dl (70-99(Fasting)) H 02/13/24 Ca 9.5 mg/dl (8.6-10.3) 02/13/24 Total Bilirubin 0.8 mg/dl (0.2-1.0) 02/13/24 Direct Bilirubin 0.2 mg/dl (0-0.2) 02/13/24 AST/SGOT 17 U/L (13-39) 02/13/24 ALT/SGPT 12 U/L (7-52) 02/13/24 Alkaline Phosphatase 79 U/L (34-104) 02/13/24 Total Protein 7.1 gm/dl (6.0-8.3) 02/13/24 Albumin 4.4 gm/dl (3.4-5.0) 02/13/24 PTT 24 Seconds (21-31) 02/13/24 INR 1.1 (0.9-1.1) 02/13/24 Code Status & VTE Plan Code Status FULL CODE VTE Prophylaxis Plan VTE Prophylaxis will be ordered: Yes Supervising Physician Co-Signing Physician Notes Patient was seen and examined with Kim MONTANO at bedside. Chart reviewed. Case discussed with Kim MONTANO and agree with the documentation above. In summary, this is a 58 year old male with h/o esophageal Ca s/p neoadjuvant chemo and surgery who presented to the ED with N/V and poor oral intake since Tuesday. Had similar admissions in the past for same and was discharged on emend which he took Tuesday but didn't help. Dry heaves. He is not on chemo anymore and follows with oncology, next visit next week. States he does not usually drink but had 6 beers on Tuesday night. No fever, chills, CP, abd pain, diarrhea, dysuria, lightheadedness, dizziness. Already feeling better in ED after IVF and IV Emend but not good enough to go home. He would like to try some broth. VS stable, labs stable, CT A/P with no acute abnormality. Will continue ivf, antiemetics prn, full liquid diet advance as tolerated. Hold off on GI consult as already improving. Replete mag. Labs in am. Rest as per the note above. On exam- General: Lying comfortably in bed, not in acute distress, on room air HEENT: EOMI, IFEANYI, MMM Chest: Clear breath sounds bilaterally, no wheezes or crackles CVS: Regular rate and rhythm, normal heart sounds, no murmur Abdomen: Soft, non tender, not distended, normal bowel sounds Neuro: Awake, alert, oriented, conversing well, non focal Extremities: No cyanosis, clubbing or edema
[2024-02-13] MEDS: MAGNESIUM SULFATE / D5W 1 GM/100 ML BAG IV SCH (14:15)
[2024-02-13] MEDS ORDERED: ALUMINUM/MAGNESIUM SUSP 30 ML UDC PO PRN (16:36)
[2024-02-13] MEDS ORDERED: MAGNESIUM HYDROXIDE SUSP 30 ML UDC PO PRN (16:36)
[2024-02-13] MEDS: ACETAMINOPHEN 325 MG TAB PO PRN (17:00)
[2024-02-13] MEDS: ONDANSETRON INJ 2 MG/ML 2 ML VIAL IV PRN (17:00)
[2024-02-13] MEDS: NSS + 20MEQ KCL 20 MEQ/1,000 ML BAG IV SCH (17:21)
[2024-02-13] MEDS: CYANOCOBALAMIN (B-12) 500 MCG TABLET PO SCH (18:15)
[2024-02-13] MEDS: PANTOprazole 40 MG TAB PO SCH (19:38)
[2024-02-13] MEDS: OLANZapine 5 MG TABLET PO SCH (19:38)
[2024-02-13] MEDS: ENOXAPARIN INJ 40 MG/0.4 ML SYR SQ SCH (19:38)
[2024-02-14 07:09] LABS: Basophils # (auto) 0.03 K/uL (0.00-0.20); Basophils % (auto) 0.5 %; Eosinophils # (auto) 0.04 K/uL (0.00-0.50); Eosinophils % (auto) 0.6 %; Hematocrit (blood only) 34.1 % (42.0-52.0); Hemoglobin 11.7 g/dl (14.0-18.0); Immature Granulocytes # (auto) 0.03 K/uL (0.01-0.20); Immature Granulocytes % (auto) 0.5 %; Lymphocytes # (auto) 1.52 K/uL (1.20-3.40); Lymphocytes % (auto) 24.1 %; Mean Corpuscular Hemoglobin 29.5 pg (25.0-34.0); Mean Corpuscular Hgb Conc 34.3 g/dL (32.0-36.0); Mean Corpuscular Volume 86.1 fL (80.0-100.0); Mean Platelet Volume 10.5 fL (9.4-12.4); Monocytes # (auto) 0.83 K/uL (0.11-0.59); Monocytes % (auto) 13.2 %; Neutrophils # (auto) 3.86 K/uL (1.40-6.50); Neutrophils % (auto) 61.1 %; Platelet Count 212 K/uL (130-400); RDW Coefficient of Variation 14.4 % (11.5-14.5); RDW Standard Deviation 45.1 fL (36.4-46.3); Red Blood Count 3.96 M/uL (4.70-6.10); White Blood Count 6.31 K/ul (4.8-10.8)
[2024-02-14 08:02] LABS: Albumin Level 3.5 gm/dl (3.4-5.0); Bilirubin,Total 0.6 mg/dl (0.2-1.0); Calcium 8.2 mg/dl (8.6-10.3); Magnesium 1.9 mg/dl (1.7-2.4); Potassium 3.9 mmol/L (3.5-5.1)
[2024-02-14 08:08] LABS: Albumin Globulin Ratio 1.8 (0.9-2); BUN Creatinine Ratio 12.3 (10-20); Creatinine Clr Calc Pharmacy 92.1 ml/min; Est GFR (African American) 123.4 ml/min; Est GFR (Non-African American) 106.5 ml/min; Phosphorus 4.4 mg/dl (2.5-4.9); Total Protein 5.5 gm/dl (6.0-8.3)
[2024-02-14] MEDS: ESCITALOPRAM OXALATE 10 MG TAB PO SCH (09:59)
[2024-02-14] MEDS: CHOLECALCIFEROL 25 MCG (1000 UNITS) TAB PO SCH (09:59)
--- NOTE | 2024-02-14 10:30 | Hospitalist Progress Note ---
Date of Service February 14, 2024 Assessment & Plan (1) Intractable nausea and vomiting: (2) History of esophageal cancer: (3) Severe malnutrition: Plan This is a 58-year-old male with past medical history significant for esophageal/gastric cancer status post neoadjuvant chemotherapy/surgery, surgery consisted of total gastrectomy and trevin-en-Y esophagojejunal anastomosis, chronic anemia (baseline hemoglobin 12-13), history trigeminal neuralgia status post surgery, past tobacco abuse presents with nausea and vomiting x 2 days. Intractable nausea or vomiting Hx of gastric/esophageal ca s/p adjuvant chemo and s/p total gastrectomy and trevin en y esophagojejunal anastomosis sx exacerbated in setting of [place] sx started conservative measures with IV antiemetics, fluids clear liquid diet, advance as tolerated --CT a/p without acute findings pt sx improving after fluids and IV emend in ED low threshold for GI consult if sx worsen or fail to improve q2h feeding due to hx of total gastrectomy per pt continue gentle IVF NSS cbc, bmp, mag, phos in a.m. IV emend ordered prn x 1 dose to start 02/13 continue zyprexa Follows apryl Heme/onc, currently under observation since 07/2023 7/2 Feels somewhat improved but not quite well yet monitor electrolytes, replace as needed Hypomagnesemia replace and monitor Severe malnutrition in setting of hx of cancer on zyprexa weight has remained stable in last 6 months per our records Chronic anemia hgb hemoconcentrated on admission follow h/h DVT ppx: SQ Lovenox Dispo: med/surg due to intractable n/v, likely able to discharge in next 1-2 days once tolerated diet FULL CODE Admission and Anticipated Discharge Date Admission Date: February 13, 2024 Subjective Pt seen in follow up of n/v, hx of esoph. ca Currently laying in bed in NAD Says he is not feeling well, still with nausea but somewhat improved from yesterday Says he had a broth No fever, chills, chest pain, shortness of breath Review of Systems Review of Systems: All systems reviewed & are unremarkable except as noted in Subjective Physical Exam Physical Exam: General: thin M in NAD HEENT: EOMI, IFEANYI, MMM Chest: Clear breath sounds bilaterally, no wheezes or crackles CVS: Regular rate and rhythm, normal heart sounds, no murmur Abdomen: Soft, non tender, not distended, normal bowel sounds Neuro: Awake, alert, oriented, conversing well, moves extremities Extremities: No LE edema, moves extremities Results & Data Results & Data Vital Signs (Past 12 Hours) Vital Signs Temp Pulse Resp BP Pulse Ox O2 Del Method 02/14/24 07:56 36.5 C 60 20 118/71 98 Room Air Laboratory Results 02/14/24 Range/Units 06:54 WBC 6.31 (4.8-10.8) K/ul RBC 3.96 L (4.70-6.10) M/uL Hgb 11.7 L (14.0-18.0) g/dl Hct 34.1 L (42.0-52.0) % MCV 86.1 (80.0-100.0) fL MCH 29.5 (25.0-34.0) pg MCHC 34.3 (32.0-36.0) g/dL RDW Std Deviation 45.1 (36.4-46.3) fL RDW Coeff of Stone 14.4 (11.5-14.5) % Plt Count 212 (130-400) K/uL MPV 10.5 (9.4-12.4) fL Immature Gran % (Auto) 0.5 % Neut % (Auto) 61.1 % Lymph % (Auto) 24.1 % Mcleod % (Auto) 13.2 % Eos % (Auto) 0.6 % Baso % (Auto) 0.5 % Neut # (Auto) 3.86 (1.40-6.50) K/uL Lymph # (Auto) 1.52 (1.20-3.40) K/uL Mcleod # (Auto) 0.83 H (0.11-0.59) K/uL Eos # (Auto) 0.04 (0.00-0.50) K/uL Baso # (Auto) 0.03 (0.00-0.20) K/uL Immature Gran # (Auto) 0.03 (0.01-0.20) K/uL Sodium 137 (136-145) mmol/L Potassium 3.9 (3.5-5.1) mmol/L Chloride 106 (98-107) mmol/L Carbon Dioxide 26 (21-32) mmol/L Anion Gap 5 (3-11) BUN 8 (6-23) mg/dl Creatinine 0.65 (0.6-1.4) mg/dl Est Cr Clr Drug Dosing 92.1 ml/min Est GFR ( Amer) 123.4 ml/min Est GFR (Non-Af Amer) 106.5 ml/min BUN/Creatinine Ratio 12.3 (10-20) Glucose 102 H (70-99(Fasting)) mg/dl Calcium 8.2 L (8.6-10.3) mg/dl Phosphorus 4.4 (2.5-4.9) mg/dl Magnesium 1.9 (1.7-2.4) mg/dl Total Bilirubin 0.6 (0.2-1.0) mg/dl AST 17 (13-39) U/L ALT 11 (7-52) U/L Alkaline Phosphatase 60 (34-104) U/L Total Protein 5.5 L D (6.0-8.3) gm/dl Albumin 3.5 (3.4-5.0) gm/dl Globulin 2.0 L (2.5-4.0) gm/dl Albumin/Globulin Ratio 1.8 (0.9-2) Medications Administered Current Inpatient Medications Acetaminophen (Acetaminophen 325 Mg Tab) 650 mg PO Q4H PRN PRN Reason: pain/fever Stop: 03/14/24 16:35 Last Admin: 02/13/24 17:00 Dose: 650 mg Al Hydrox/Mg Hydrox/Simethicone (Aluminum/Magnesium Susp 30 Ml Udc) 30 ml PO Q6H PRN PRN Reason: Dyspepsia Stop: 03/14/24 16:35 Cyanocobalamin (Cyanocobalamin (B-12) 500 Mcg Tablet) 500 mcg PO DAILYBD GREG Stop: 03/14/24 16:59 Last Admin: 02/13/24 18:15 Dose: 500 mcg Enoxaparin Sodium (Enoxaparin Inj 40 Mg/0.4 Ml Syr) 40 mg SQ HS GREG Stop: 03/14/24 20:59 Last Admin: 02/13/24 19:38 Dose: 40 mg Escitalopram Oxalate (Escitalopram Oxalate 10 Mg Tab) 10 mg PO QAM GREG Stop: 03/15/24 08:59 Last Admin: 02/14/24 09:59 Dose: 10 mg Fosaprepitant 115 mg/ Sodium (Chloride) 115 mls @ 450 mls/hr IV ONE PRN PRN Reason: nausea/vomiting Stop: 03/15/24 07:59 Potassium Chloride/Sodium Chloride (Normal Saline W/20 Meq Kcl) 20 meq in 1,000 mls @ 80 mls/hr IV .[id number] [facility]; Protocol Stop: 02/14/24 17:59 Last Admin: 02/14/24 05:49 Dose: 80 mls/hr Magnesium Hydroxide (Magnesium Hydroxide Susp 30 Ml Udc) 30 ml PO Q6H PRN PRN Reason: Constipation Stop: 03/14/24 16:35 Olanzapine (Olanzapine 5 Mg Tablet) 5 mg PO HS [facility] Stop: 03/14/24 20:59 Last Admin: 02/13/24 19:38 Dose: 5 mg Ondansetron HCl (Ondansetron Inj 2 Mg/Ml 2 Ml Vial) 4 mg IV Q6H PRN PRN Reason: Nausea Stop: 03/14/24 16:35 Last Admin: 02/14/24 08:46 Dose: 4 mg Pantoprazole Sodium (Pantoprazole 40 Mg Tab) 40 mg PO BID [facility] Stop: 03/14/24 20:59 Last Admin: 02/14/24 09:59 Dose: 40 mg Vitamin D (Cholecalciferol 25 Mcg (1000 Units) Tab) 50 mcg PO DAILY [facility] Stop: 03/15/24 08:59 Last Admin: 02/14/24 09:59 Dose: 50 mcg
[2024-02-14] MEDS: FOSAPREPITANT DIMEGLUMINE 115 MG in 0.9 % SODIUM CHLORIDE 111.1667 ML IV PRN (11:04)
--- NOTE | 2024-02-15 05:38 | Electrocardiogram Report ---
Test Reason : Blood Pressure : / mmHG Vent. Rate : 048 BPM Atrial Rate : 048 BPM P-R Int : 128 ms QRS Dur : 078 ms QT Int : 468 ms P-R-T Axes : 058 071 072 degrees QTc Int : 418 ms Sinus bradycardia Otherwise normal ECG When compared with ECG of 22-DEC-2023 10:02, No significant change was found Confirmed by Noé Mathis ([id number]) on 02/15/2024 5:38:22 AM Referred By: REFERRED SELF Confirmed By:Noé Matihs
[2024-02-15 07:12] LABS: Hematocrit (blood only) 33.7 % (42.0-52.0); Hemoglobin 11.4 g/dl (14.0-18.0); Mean Corpuscular Hemoglobin 29.3 pg (25.0-34.0); Mean Corpuscular Hgb Conc 33.8 g/dL (32.0-36.0); Mean Corpuscular Volume 86.6 fL (80.0-100.0); Mean Platelet Volume 10.8 fL (9.4-12.4); Platelet Count 191 K/uL (130-400); RDW Coefficient of Variation 14.4 % (11.5-14.5); RDW Standard Deviation 45.5 fL (36.4-46.3); Red Blood Count 3.89 M/uL (4.70-6.10); White Blood Count 5.08 K/ul (4.8-10.8)
[2024-02-15 07:24] LABS: BUN Creatinine Ratio 14.1 (10-20); Calcium 8.2 mg/dl (8.6-10.3); Creatinine Clr Calc Pharmacy 93.5 ml/min; Est GFR (African American) 124.2 ml/min; Est GFR (Non-African American) 107.2 ml/min; Magnesium 1.7 mg/dl (1.7-2.4); Phosphorus 4.2 mg/dl (2.5-4.9)
[2024-02-15] MEDS: MAGNESIUM SULFATE / D5W 1 GM/100 ML BAG IV ONE (08:59)
--- NOTE | 2024-02-15 09:36 | Discharge Summary ---
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 Sx started on tuesday morning. This started after he was at camp with his friends tuesday night and had 6 beers. His sister is at bedside who helps elicit history. Patients was having a procedure this a.m. and therefore unable to be p resent. He started vomiting tuesday. His vomiting mostly consists of, "dry heaving," due to hx of gastrectomy. Since Tuesday he has been unable to keep anything down and also reports few loose stools. He did have tomato soup yesterday and was able to keep that down. He has not had much to drink in the last 2 days. He states when he starts vomiting if he cannot get a supervisor heading he typically has to come to the hospital. He did have a tablet of emend at home, but after taking it vomited it back up. He denies any f/c/s, chest pain, sob, uri sx, abd pain, dysuria, increased urg/freq with urination, melena or hematochezia. He feels urine has been car restorer in color. He wishes to start with some broth and feels up to eating something. He states he has to eat q2hrs due to hx of gastrectomy. He reports he is to f/u with heme/onc next week and currently is not undergoing any treatment. He is currently under observation since 07/2023. In ED pt remained hemodynamically stable. His CBC, CMP was g enerally unremarkable. His magnesium was mildly low. He received IV fluids and Emend and sx are gradually improving. Admission Exam Per Admitting Provider General: Lying comfortably in bed, not in acute distress, on room air HEENT: EOMI, IFEANYI, MMM Chest: Clear breath sounds bilaterally, no wheezes or crackles CVS: Regular rate and rhythm, normal heart sounds, no murmur Abdomen: Soft, non tender, not distended, normal bowel sounds Neuro: Awake, alert, oriented, conversing well, non focal Extremities: No cyanosis, clubbing or edema Principal Diagnosis Intractable nausea and vomiting History of esophageal cancer Discharge Exam General: thin M in NAD HEENT: EOMI, IFEANYI, MMM Chest: Clear breath sounds bilaterally, no wheezes or crackles CVS: Regular rate and rhythm, normal heart sounds, no murmur Abdomen: Soft, non tender, not distended, normal bowel sounds Neuro: Awake, alert, oriented, conversing well, moves extremities Extremities: No LE edema, moves extremities Discharge Data Allergies Allergy/AdvReac Type Severity Reaction Status Date / Time carbamazepine [From Tegretol] Allergy Mild Rash Verified 02/13/24 11:18 Consultations 02/13/24 12:57 ED Decision to Admit Stat Ordered Studies 02/13/24 09:32 CT abd pelvis IV con only Stat FINDINGS: A small hiatal hernia is present. There are postoperative findings consistent with gastrectomy. The postoperative appearance is unchanged. There is no operative bed fluid collection. There are no hepatic lesions. There is no biliary or pancreatic ductal dilatation. No peripancreatic or pericholecystic infiltration is present. The spleen, adrenal glands and kidneys are normal. There is no hydronephrosis. The caliber and wall thickness of small and large bowel are normal. There is no evidence for a bowel obstruction. Colonic di verticulosis without evidence for acute diverticulitis. The appendix is normal. No abdominal or pelvic lymphadenopathy is present. There are no fluid collections within the abdomen or pelvis. Major vasculature is patent. No suspicious lesions within the visualized skeletal structures are present. IMPRESSION: 1. No acute process within the abdomen or pelvis. 2. Stable findings following gastrectomy. No evidence for a bowel obstruction. 3. No bowel wall thickening. 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 Intractable nausea or vomiting Hx of gastric/esophageal ca s/p adjuvant chemo and s/p total gastrectomy and trevin en y esophagojejunal anastomosis sx exacerbated in setting of drinking 6 beers at [place] the night before sx started conservative measures with IV antiemetics, fluids clear liquid diet, advance as tolerated --CT a/p without acute findings pt sx improving after fluids and IV emend in ED low threshold for GI consult if sx worsen or fail to improve q2h feeding due to hx of total gastrectomy per pt continue gentle IVF NSS cbc, bmp, mag, phos in a.m. IV emend ordered prn x 1 dose to start 02/13 continue zyprexa Follows apryl Heme/onc, currently under observation since 07/2023 Feels somewhat improved but not quite well yet monitor electrolytes, replace as needed 02/14 Pt feels much improved, tolerating diet. he is inquiring about discharge home. Hypomagnesemia replace and monitor Severe malnutrition in setting of hx of cancer on zyprexa weight has remained stable in last 6 months per our records Chronic anemia hgb hemoconcentrated on admission follow h/h Total Time Total Time Spent Total Time Spent (In Minutes): 40 Discharge Plan Discharge Items Patient Disposition: Home - Self-Care Reason For Visit: INTRACTABLE N/V Discharge Diagnosis: Intractable nausea and vomiting History of esophageal cancer Activity: Per Instructions section Non-emergency contact: Primary Care Provider, Specialist and Oncologist Call non-emergency contact if: you have any medication questions and your symptoms worsen Follow-up/Referrals: Thaddeus Solis MD [Primary Care Provider] - (Date & Time 02/21/2024 10:20 AM Provider Thaddeus Solis MD [facility] ) Diet: Regular Addtl Attending Provider Instructions: Follow up with your primary care physician and oncologist. Advance your diet as tolerated. Recommend taking magnesium supplement - discuss this further with your primary care doctor and oncologist. Pending Studies at Discharge: No Stand-Alone Forms: My [facility], Smoking Cessation Medications and DC Order Prescriptions: New magnesium oxide 84.5 mg mag (140 mg) capsule 84.5 mg PO DAILY Qty: 20 0RF Continued cyanocobalamin (vitamin B-12) [Vitamin B-12] 500 mcg Tablet 500 mcg PO DAILYBD cholecalciferol (vitamin D3) [Vitamin D3] 50 mcg (2,000 unit) Tablet 50 mcg PO DAILY olanzapine 5 mg tablet 5 mg PO HS pantoprazole 40 mg tablet,delayed release (DR/EC) 40 mg PO BID escitalopram oxalate 10 mg tablet 10 mg PO HS Discharge Orders: Discharge Order (Routine); Ordered 02/15/24 Ordered By: Ronald Dillon Admission Data Admit Date/Time: 02/14/24 10:31 Attending Provider: Ronald Dillon Admit Provider: Manny Song Primary Care Provider: Thaddeus Solis Other Providers: Manny Song
== END 2024-02-15 11:27 | disposition home or self-care (01) | DRG 391 ==
LOC: 3W 09:10 → ED 09:10 → SUATTDRO 13:23 → 3W 16:15

== ENCOUNTER 2024-07-06 13:34 | Observation (INO) ==
--- NOTE | 2024-07-06 14:10 | Emergency Department Note ---
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 Patient has a history of esophageal cancer. He tried taking his medications at home which included Compazine. This did not significantly help his symptoms. The patient came the emergency department with his significant other. The patient denies having any fever. He denies having any abdominal pain or abdominal distention. He said no recent headaches. The patient did not see his family doctor for the symptoms but usually comes to the emergency department for IV treatment. ROS: See above HPI for pertinent positives & negatives. A total of 10 systems reviewed and were otherwise negative. PAST MEDICAL HISTORY: See Below PAST SURGICAL HISTORY: See Below FAMILY HISTORY: See Below SOCIAL HISTORY: See Below HOME MEDICATIONS: See Below ALLERGIES: See Below VITALS: See Below PHYSICAL EXAMINATION: GENERAL: The patient is awake and alert. The patient is uncomfortable.. EYES: The conjunctivae are clear. The pupils are round and reactive. EARS, NOSE, MOUTH AND THROAT: The nose is without any evidence of any deformity. Mucous membranes are moist. Tongue is midline. NECK: The neck is nontender and supple. RESPIRATORY: Normal respiratory effort is noted there is no evidence of wheezing rhonchi or rales CARDIOVASCULAR: Regular rate and rhythm noted there no murmurs rubs or gallops normal S1 normal S2. GASTROINTESTINAL: The abdomen is soft. Abdomen is nontender. MUSCULOSKELETAL/EXTREMITIES: There is no evidence of gross deformity full range of motion is noted in the hips and shoulders. SKIN: There is no obvious evidence of any rash. There are no petechiae, pallor or cyanosis noted. NEUROLOGIC: Patient is awake alert and oriented x3 MEDICAL DECISION MAKING: The patient is a 59-year-old male who has a history of esophageal cancer. He has a history of gastrectomy in the past. He has episodes of nausea vomiting. He was using his outpatient medication without relief. He presented to the emergency department today. He was treated with IV fluids and IV antiemetics. On reevaluation he was not significantly improved. I discussed his condition with the on-call [facility] hospitalist group. They have agreed to evaluate the patient in the emergency department. The patient's physical exam was not consistent with an acute surgical abdomen. Laboratory results are reassuring. Triage Nursing notes reviewed. Prior medical records reviewed Vital Signs: reviewed and remarkable for no significant abnormalities Differential diagnosis: Gastroenteritis, food borne illness, infections, appendicitis, diverticulitis, inflammatory bowel disease, obstruction, GI bleed, biliary pathology, volvulus, as well as other pathologies. ER treatment provided: See below Diagnostics interpreted by me: ECG: EKG was obtained in the emergency department. My interpretation is sinus bradycardia 56 bpm. There was no ectopy. There is no acute ST segment abnormalities noted. This was paired to a tracing from April 13, 2024. No changes were noted. Cardiac Monitoring: An order was placed for continuous cardiac monitoring. The monitor shows a rate of 66 bpm with sinus rhythm. Laboratory studies: As stated above and show below. Imaging studies: See below. Radiographic imaging was reviewed by myself Consultation(s): I discussed this case with Kim who is on-call for the [facility]ist group. 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 Edmonds/[facility] Eduardo History of recent blood transfusion 05/02/23 @ [facility] Enteropathogenic Escherichia coli infection Hyponatremia Trigeminal neuralgia Hypomagnesemia Vomiting and diarrhea Iron deficiency received blood transfusion 05/02/23 @ [facility] Surgical History History of colonoscopy History of esophagogastroduodenoscopy (EGD) History of tooth extraction partial upper and lower denture History of ERCP 04/2023 @ [facility] Eduardo History of vascular access device A port--power port in placed on right side of chest Family History Father Stroke Social History Smoking Status: Never smoker Second Hand Exposure: No; Do You Dip or Chew Tobacco: No; Hx Alcohol Use: Yes Alcohol type: beer Hx Substance Use: No Preferred Language: Mauritanian Communication Ability: Effective Team Driver Required: No Beliefs That Will Affect Care: None marital status: Current Living Situation: Spouse Feels Safe at Home: Yes Assistive Devices: None Allergies Allergies Allergy/AdvReac Type Severity Reaction Status Date / Time carbamazepine [From Tegretol] Allergy Mild Rash Verified 02/13/24 11:18 Home Meds Home Medications Medication Instructions Recorded Confirmed escitalopram oxalate 10 mg tablet 10 mg PO QAM 12/22/23 07/06/24 olanzapine 5 mg tablet (Zyprexa) 5 mg PO HS 12/22/23 07/06/24 pantoprazole 40 mg tablet,delayed 40 mg PO QAM Heartburn 12/22/23 07/06/24 release cholecalciferol (vitamin D3) 50 50 mcg PO DAILY 02/13/24 07/06/24 mcg (2,000 unit) tablet (Vitamin D3) cyanocobalamin (vitamin B-12) 500 500 mcg PO DAILYBD 02/13/24 07/06/24 mcg tablet (Vitamin B-12) aprepitant 80 mg capsule 80 mg PO DIRECTED PRN n/v 04/13/24 07/06/24 folic acid 1 mg tablet 1 mg PO .DAILY @ LUNCH 04/13/24 07/06/24 lorazepam 0.5 mg tablet 0.5 mg PO DIRECTED PRN Other 04/13/24 07/06/24 morphine concentrate 100 mg/5 mL 100 mg PO UD PRN Pain 04/13/24 07/06/24 (20 mg/mL) oral solution prochlorperazine maleate 10 mg 10 mg PO DIRECTED PRN n/v 04/13/24 07/06/24 tablet Results & Data (ED) Vital Signs Vital Signs - 24 hr 07/06/24 13:35 07/06/24 13:35 07/06/24 13:52 Temperature 36.6 C Temperature Source Temporal Artery Scan Pulse Rate 73 70 Respiratory Rate 18 18 Blood Pressure 145/96 H Blood Pressure Mean 112 Pulse Oximetry 99 Oxygen Delivery Method Sepsis Recent Fever Within 48 Hours No Sepsis New/Unexplained Change in Mental Status N/A Sepsis Action Taken by Nursing No Action Required 07/06/24 14:26 Temperature Temperature Source Pulse Rate 66 Respiratory Rate 18 Blood Pressure Blood Pressure Mean Pulse Oximetry 99 Oxygen Delivery Method Room Air Sepsis Recent Fever Within 48 Hours Sepsis New/Unexplained Change in Mental Status Sepsis Action Taken by Custodial Medications Current Medication List: was personally reviewed by me Laboratory Data Attestation: I reviewed the patient's lab results. 07/06/24 13:50 07/06/24 13:50 Lab Results 07/06/24 Range/Units 13:50 WBC 7.71 (4.8-10.8) K/ul RBC 5.05 (4.70-6.10) M/uL Hgb 14.7 (14.0-18.0) g/dl Hct 43.7 (42.0-52.0) % MCV 86.5 (80.0-100.0) fL MCH 29.1 (25.0-34.0) pg MCHC 33.6 (32.0-36.0) g/dL RDW Std Deviation 45.8 (36.4-46.3) fL RDW Coeff of Stone 14.4 (11.5-14.5) % Plt Count 287 (130-400) K/uL MPV 10.6 (9.4-12.4) fL Immature Gran % (Auto) 0.3 % Neut % (Auto) 77.5 % Lymph % (Auto) 15.3 % Woodward % (Auto) 6.5 % Eos % (Auto) 0.0 % Baso % (Auto) 0.4 % Neut # (Auto) 5.98 (1.40-6.50) K/uL Lymph # (Auto) 1.18 L (1.20-3.40) K/uL Woodward # (Auto) 0.50 (0.11-0.59) K/uL Eos # (Auto) 0.00 (0.00-0.50) K/uL Baso # (Auto) 0.03 (0.00-0.20) K/uL Immature Gran # (Auto) 0.02 (0.01-0.20) K/uL Sodium 140 (136-145) mmol/L Potassium 3.9 (3.5-5.1) mmol/L Chloride 104 (98-107) mmol/L Carbon Dioxide 25 (21-32) mmol/L Anion Gap 11 (3-11) BUN 11 (6-23) mg/dl Creatinine 0.74 (0.6-1.4) mg/dl Est Cr Clr Drug Dosing 83.5 ml/min eGFR 103.73 BUN/Creatinine Ratio 14.9 (10-20) Glucose 122 H (70-99(Fasting)) mg/dl Calcium 9.8 (8.6-10.3) mg/dl Magnesium 1.7 (1.7-2.4) mg/dl Total Bilirubin 0.9 (0.2-1.0) mg/dl AST 17 (13-39) U/L ALT 12 (7-52) U/L Alkaline Phosphatase 67 (34-104) U/L Troponin I High Sens 3.2 (0-20) pg/ml Total Protein 7.3 (6.0-8.3) gm/dl Albumin 4.4 (3.4-5.0) gm/dl Globulin 2.9 (2.5-4.0) gm/dl Albumin/Globulin Ratio 1.5 (0.9-2) Lipase 101 H (11-82) U/L Administered Medications Discontinued Medications Fosaprepitant 150 mg/ Sodium (Chloride) 145 mls @ 300 mls/hr IV ONE ONE Stop: 07/06/24 14:29 Last Admin: 07/06/24 14:49 Dose: 300 mls/hr Documented By: SRL Sodium Chloride (Nss) 1,000 mls @ 999 mls/hr IV .Q1H1M ONE Stop: 07/06/24 15:01 Last Infusion: 07/06/24 15:06 Dose: Infused Documented By: Admin: 07/06/24 14:20 Dose: 999 mls/hr Documented By: SRL Ondansetron HCl (Ondansetron Inj 2 Mg/Ml 2 Ml Vial) 4 mg IV NOW STA Stop: 07/06/24 14:02 Last Admin: 07/06/24 14:20 Dose: 4 mg Documented By: SRL Imaging Data Attestation: I personally reviewed and interpreted this imaging study as follows: My Impression: 1 view chest x-ray was obtained in the emergency department. My interpretation is no free air or signs of definite infiltrate, final report pending. KUB was obtained. My interpretation is no definite bowel obstruction, there is no free air, final report below. Radiologist's Impression: KUB X-Ray 07/06/24 14:02 KUB HISTORY: Acute chest abdominal pain with nausea and vomiting vomiting COMPARISON: CT abdomen and pelvis 04/13/2024 FINDINGS: Right IJ Axurql-s-Zvot catheter distal tip projects over the expected location of the inferior SVC. Lung forrester appear clear. Nonobstructive bowel gas pattern. No pneumoperitoneum or urolith. No acute fracture. IMPRESSION: Nonobstructive bowel gas pattern. ACT 112: Negative or not required by law. The above report was generated using voice recognition software. It may contain grammatical, syntax or spelling errors. Electronically signed by: Lenny Day M.D. 07/06/2024 2:46 PM Discharge Plan Visit Data Chief Complaint: Flu Like Symptoms Stated Complaint: DEHYDRATION, VOMITING, DIARRHEA ED Provider: Marshall Wilson Discharge Problem: Intractable nausea and vomiting Patient Disposition: Being Evaluated by Hospitalist Forms Stand Alone Forms: My [facility] Prescriptions Prescriptions: No Action cyanocobalamin (vitamin B-12) [Vitamin B-12] 500 mcg Tablet 500 mcg PO DAILYBD cholecalciferol (vitamin D3) [Vitamin D3] 50 mcg (2,000 unit) Tablet 50 mcg PO DAILY olanzapine [Zyprexa] 5 mg tablet 5 mg PO HS pantoprazole 40 mg tablet,delayed release (DR/EC) 40 mg PO QAM escitalopram oxalate 10 mg tablet 10 mg PO QAM morphine concentrate 100 mg/5 mL (20 mg/mL) solution 100 mg PO UD PRN (Reason: Pain) Rx Instructions: 0.5 ML q4h prn prochlorperazine maleate 10 mg tablet 10 mg PO DIRECTED PRN (Reason: n/v) lorazepam 0.5 mg tablet 0.5 mg PO DIRECTED PRN (Reason: Other) folic acid 1 mg tablet 1 mg PO .DAILY @ LUNCH aprepitant 80 mg capsule 80 mg PO DIRECTED PRN (Reason: n/v) Referrals Referrals: Thaddeus Solis MD [Primary Care Provider] -
[2024-07-06] MEDS: ONDANSETRON INJ 2 MG/ML 2 ML VIAL IV STA (14:20)
[2024-07-06] MEDS: SODIUM CHLORIDE 0.9% 1,000 ML IV ONE (14:20)
[2024-07-06 14:32] LABS: Basophils # (auto) 0.03 K/uL (0.00-0.20); Basophils % (auto) 0.4 %; Hematocrit (blood only) 43.7 % (42.0-52.0); Hemoglobin 14.7 g/dl (14.0-18.0); Immature Granulocytes # (auto) 0.02 K/uL (0.01-0.20); Immature Granulocytes % (auto) 0.3 %; Lymphocytes # (auto) 1.18 K/uL (1.20-3.40); Lymphocytes % (auto) 15.3 %; Mean Corpuscular Hemoglobin 29.1 pg (25.0-34.0); Mean Corpuscular Hgb Conc 33.6 g/dL (32.0-36.0); Mean Corpuscular Volume 86.5 fL (80.0-100.0); Mean Platelet Volume 10.6 fL (9.4-12.4); Monocytes % (auto) 6.5 %; Neutrophils # (auto) 5.98 K/uL (1.40-6.50); Neutrophils % (auto) 77.5 %; Platelet Count 287 K/uL (130-400); RDW Coefficient of Variation 14.4 % (11.5-14.5); RDW Standard Deviation 45.8 fL (36.4-46.3); Red Blood Count 5.05 M/uL (4.70-6.10); White Blood Count 7.71 K/ul (4.8-10.8)
[2024-07-06 14:41] LABS: Albumin Globulin Ratio 1.5 (0.9-2); Albumin Level 4.4 gm/dl (3.4-5.0); BUN Creatinine Ratio 14.9 (10-20); Bilirubin,Total 0.9 mg/dl (0.2-1.0); Calcium 9.8 mg/dl (8.6-10.3); Creatinine Clr Calc Pharmacy 83.5 ml/min; Globulin 2.9 gm/dl (2.5-4.0); Magnesium 1.7 mg/dl (1.7-2.4); Potassium 3.9 mmol/L (3.5-5.1); Total Protein 7.3 gm/dl (6.0-8.3)
[2024-07-06 14:48] LABS: Troponin I High Sensitivity 3.2 pg/ml (0-20)
--- NOTE | 2024-07-06 14:48 | XRay Report ---
KUB HISTORY: Acute chest abdominal pain with nausea and vomiting vomiting COMPARISON: CT abdomen and pelvis 04/13/2024 FINDINGS: Right IJ Povhuk-u-Vhzl catheter distal tip projects over the expected location of the infer ior SVC. Lung forrester appear clear. Nonobstructive bowel gas pattern. No pneumoperitoneum or urolith. No acute fracture. IMPRESSION: Nonobstructive bowel gas pattern. ACT 112: Negative or not required by law. The above report was generated using voice recognition software. It may contain grammatical, syntax o r spelling errors. Electronically signed by: Lenny Day M.D. 07/06/2024 2:46 PM
[2024-07-06] MEDS: FOSAPREPITANT DIMEGLUMINE 150 MG in SODIUM CHLORIDE 0.9% 145 ML IV ONE (14:49)
--- NOTE | 2024-07-06 15:25 | XRay Report ---
XR chest 1V portable CLINICAL HISTORY: Vomiting. COMPARISON STUDY: Chest radiograph December 15, 2023. FINDINGS: Right internal jugular Gkfskw-v-Iawp is unchanged in position. Lung volumes are normal. Jacquelin gs are clear. There is no pneumothorax or pleural effusion. Cardiac size is normal. Mediastinal conto urs are normal. There is no evidence for pulmonary edema. IMPRESSION: No acute cardiopulmonary findings. No change in appearance of the chest. ACT 112: Negative or not required by law. Electronically signed by: Mele Umanzor M.D. 07/06/2024 3:23 PM
--- NOTE | 2024-07-06 16:57 | History & Physical Report ---
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 Intractable nausea or vomiting Hx of gastric/esophageal ca s/p adjuvant chemo and s/p total gastrectomy and trevin en y esophagojejunal anastomosis Elevated Lipase conservative measures with IV antiemetics, fluids clear liquid diet, advance as tolerated --KUB/CXR without acute findings pt sx improving after fluids and IV emend in ED low threshold for GI consult if sx worsen or fail to improve q2h feeding due to hx of total gastrectomy per pt continue gentle IVF NSS + 20meq KCL x 24 hrs cbc, cmp, mag in a.m. continue zyprexa Follows [facility] Heme/onc, currently under observation since 07/2023 Severe malnutrition in setting of hx of cancer on zyprexa weight has remained stable Elevated Lipase uncertain significance will repeat in a.m. after rehydration no abdominal pain, no indication for further imaging, pt denies ETOH use DVT ppx: SQ Lovenox Dispo: admit to med/surg due to intractable n/v, likely able to discharge in next 1-2 days once tolerated diet FULL CODE PCP: Irma Pt was seen and examined in collaboration with Dr. Miguel, please see addendum A total of 75 minutes was spent coordinating, documenting, and providing care for this patient excluding time spent in the performance of separately billed services. This included personally viewing all current laboratories and imaging studies, medication reconciliation, outpatient chart review, and discussion with specialists. History of Present Illness Chief Complaint: N/V x 2 dys. Primary Care Provider: Thaddeus Solis MD This is a 59-year-old male with past medical history significant for esophageal/gastric cancer status post neoadjuvant chemotherapy/surgery, surgery consisted of total gastrectomy and trevin-en-Y esophagojejunal anastomosis, chronic anemia (baseline hemoglobin 12-13), history trigeminal neuralgia status post surgery, past tobacco abuse presents with nausea and vomiting x 2 days. Patient states his symptoms started 2 days ago. He has had persistent nausea and dry heaves. He has been unable to keep anything down orally. He has tried his home remedies and oral amend without relief. He was hospitalized in February for similar symptoms requiring hospitalization and IV Emend. He denies any recent alcohol use. He states a week ago him and his tested positive for COVID. His symptoms have since resolved. He complains of chills but denies any fever, sweats, lightheadedness, dizziness, chest pain, shortness with, cough, abdominal pain, change in bowel or urinary habits. He does have chronic diarrhea and this is unchanged. He complains a frontal headache with photophobia. He denies any prior history of migraine. He feels it is related to dehydration. He has been taking his medications as prescribed. Again he has been unable to keep anything down over the last 2 days other than some liquids. In ED patient have a mildly elevated lipase. He is recommended to be admitted for observation. Allergies Allergy/AdvReac Type Severity Reaction Status Date / Time carbamazepine [From Tegretol] Allergy Mild Rash Verified 02/13/24 11:18 Home Medications Medication Instructions Recorded Confirmed Type escitalopram oxalate 10 mg tablet 10 mg PO QAM 12/22/23 07/06/24 History olanzapine 5 mg tablet (Zyprexa) 5 mg PO HS 12/22/23 07/06/24 History pantoprazole 40 mg tablet,delayed 40 mg PO QAM Heartburn 12/22/23 07/06/24 History release cholecalciferol (vitamin D3) 50 50 mcg PO DAILY 02/13/24 07/06/24 History mcg (2,000 unit) tablet (Vitamin D3) cyanocobalamin (vitamin B-12) 500 500 mcg PO DAILYBD 02/13/24 07/06/24 History mcg tablet (Vitamin B-12) aprepitant 80 mg capsule 80 mg PO DIRECTED PRN n/v 04/13/24 07/06/24 History folic acid 1 mg tablet 1 mg PO .DAILY @ LUNCH 04/13/24 07/06/24 History lorazepam 0.5 mg tablet 0.5 mg PO DIRECTED PRN Other 04/13/24 07/06/24 History morphine concentrate 100 mg/5 mL 100 mg PO UD PRN Pain 04/13/24 07/06/24 History (20 mg/mL) oral solution prochlorperazine maleate 10 mg 10 mg PO DIRECTED PRN n/v 04/13/24 07/06/24 History tablet Past Med/Surg History Problem List Intractable nausea and vomiting (Acute) Medical History History of esophageal cancer Severe malnutrition Anemia Esophageal cancer diagnosed 04/2023--chemo/ERCP 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 Edmonds[place] [place] History of recent blood transfusion 05/02/23 @ [facility] Enteropathogenic Escherichia coli infection Hyponatremia Trigeminal neuralgia Hypomagnesemia Vomiting and diarrhea Iron deficiency received blood transfusion 05/02/23 @ [facility] Surgical History History of colonoscopy History of esophagogastroduodenoscopy (EGD) History of tooth extraction partial upper and lower denture History of ERCP 04/2023 @ [facility] [place] History of vascular access device A port--power port in placed on right side of chest Family History Father Stroke Social History Smoking Status: Never smoker Second Hand Exposure: No; Do You Dip or Chew Tobacco: No; Hx Alcohol Use: Yes Alcohol type: beer Hx Substance Use: No Preferred Language: Amharic Communication Ability: Effective Quality Assurance Lab Technician Required: No Beliefs That Will Affect Care: None marital status: Current Living Situation: Spouse Feels Safe at Home: Yes Assistive Devices: None Review of Systems Review of Systems: All systems reviewed & are unremarkable except as noted in HPI & below Physical Exam Physical Exam: Constitutional: Thin, M, appears acutely ill, covering forhead, vitals as above, NAD, sitting up in bed, pleasant, conversing easily Head: Normocephalic, Atraumatic Eyes: PERRL, conjunctivae normal, anicteric sclerae ENMT: external ear and nose normal, oropharynx normal Neck: trachea midline, no thyromegaly normal visual inspection Respiratory: normal respiratory effort, lungs clear to auscultation, no wheeze, rales, rhonchi. Normal insp/exp effort, no accessory muscle use Cardiovascular: RRR, no murmur, no edema Vessels: no JVD or carotid bruit Chest: normal inspection of chest Abdomen: normal bowel sounds, soft, nontender, no hepatosplenomegaly Musculoskeletal: no cyanosis or clubbing, extremities motor strength 5/5 Skin: no rashes, warm and dry normal turgor Neurologic: PERRL, EOMI, accommodation nl, no face palsy, no dysarthria CN's II-XI intact bilaterally and moves all extremities Psychiatric: A+Ox3, euthymic affect Lymphatic: no cervical or axillary lymphadenopathy : deferred Results & Data Results & Data Vital Signs (Past 12 Hours) Vital Signs Temp Pulse Resp BP Pulse Ox O2 Del Method 07/06/24 15:36 56 L 17 166/90 H 98 Room Air 07/06/24 15:00 61 27 H 167/107 H 96 07/06/24 14:26 66 18 99 Room Air 07/06/24 14:00 60 14 177/113 H 95 07/06/24 13:52 70 07/06/24 13:35 18 07/06/24 13:35 36.6 C 73 18 145/96 H 99 Laboratory Results I have independently reviewed and interpreted patient's admitting labs including CBC, CMP, mag, lipase and troponin. Diagnostic Findings Chest X-Ray 07/06/24 14:02 XR chest 1V portable CLINICAL HISTORY: Vomiting. COMPARISON STUDY: Chest radiograph December 15, 2023. FINDINGS: Right internal jugular [id number] is unchanged in position. Lung volumes are normal. Lungs are clear. There is no pneumothorax or pleural effusion. Cardiac size is normal. Mediastinal contours are normal. There is no evidence for pulmonary edema. IMPRESSION: No acute cardiopulmonary findings. No change in appearance of the chest. ACT 112: Negative or not required by law. Electronically signed by: Mele Umanzor M.D. 07/06/2024 3:23 PM KUB X-Ray 07/06/24 14:02 KUB HISTORY: Acute chest abdominal pain with nausea and vomiting vomiting COMPARISON: CT abdomen and pelvis 04/13/2024 FINDINGS: Right IJ Rqcjpv-c-[id number] catheter distal tip projects over the expected location of the inferior SVC. Lung forrester appear clear. Nonobstructive bowel gas pattern. No pneumoperitoneum or urolith. No acute fracture. IMPRESSION: Nonobstructive bowel gas pattern. ACT 112: Negative or not required by law. The above report was generated using voice recognition software. It may contain grammatical, syntax or spelling errors. Electronically signed by: Lenny Day M.D. 07/06/2024 2:46 PM Medications Administered Medication List Discontinued Medications Fosaprepitant 150 mg/ Sodium (Chloride) 145 mls @ 300 mls/hr IV ONE ONE Stop: 07/06/24 14:29 Last Infusion: 07/06/24 15:31 Dose: Infused Documented By: Admin: 07/06/24 14:49 Dose: 300 mls/hr Documented By: FRANCY Sodium Chloride (Nss) 1,000 mls @ 999 mls/hr IV .Q1H1M ONE Stop: 07/06/24 15:01 Last Infusion: 07/06/24 15:06 Dose: Infused Documented By: Admin: 07/06/24 14:20 Dose: 999 mls/hr Documented By: FRANCY Ondansetron HCl (Ondansetron Inj 2 Mg/Ml 2 Ml Vial) 4 mg IV NOW STA Stop: 07/06/24 14:02 Last Admin: 07/06/24 14:20 Dose: 4 mg Documented By: FRANCY Code Status & VTE Plan Code Status FULL CODE VTE Prophylaxis Plan VTE Prophylaxis will be ordered: Yes Supervising Physician Co-Signing Physician Notes Attending addendum: The patient was seen and examined in emergency room in presence of the He has history of esophageal cancer and coming in with intractable nausea and vomiting Denies any significant abdominal pain and has had only 1 episode of diarrhea yesterday No distention of the abdomen and denies any fever and/or chills and no other significant symptoms On examination No apparent distress at rest and remains hemodynamically stable Chestclear to auscultate bilaterally Abdomensoft, nontender, no distention and bowel sound present HeartS1, [id number] Extremities-no edema His labs and imaging studies reviewed Intractable nausea vomiting with history of gastric/esophageal cancer status post adjuvant chemo and status post total gastrectomy with Trevin-en-Y anastomosis Will try Amend for nausea vomiting and give some intravenous fluid for hydration No evidence of infection at this time He will be observed overnight and likely discharge tomorrow Agree with assessment and plan as outlined above by Shanna Narvaez PA-C and take the full responsibility of the care Dr Marshal Miguel
[2024-07-06] MEDS ORDERED: POLYETHYLENE (MIRALAX) 17 GM PACK PO PRN (19:46)
[2024-07-06] MEDS ORDERED: LORazepam 0.5 MG TAB PO PRN (19:46)
[2024-07-06] MEDS ORDERED: MoRPHine SULFATE 10 MG/0.5 ML UDP PO PRN (19:46)
[2024-07-06] MEDS ORDERED: ALUMINUM/MAGNESIUM SUSP 30 ML UDC PO PRN (19:46)
[2024-07-06] MEDS ORDERED: ACETAMINOPHEN 325 MG TAB PO PRN (19:46)
[2024-07-06] MEDS ORDERED: ONDANSETRON INJ 2 MG/ML 2 ML VIAL IV PRN (19:46)
[2024-07-06 20:25] VITALS: RESP 18
[2024-07-06] MEDS: SODIUM CHLORIDE 0.9% 1,000 ML IV SCH (20:26)
[2024-07-06] MEDS: OLANZapine 5 MG TABLET PO SCH (20:27)
[2024-07-06] MEDS: ENOXAPARIN INJ 40 MG/0.4 ML SYR SQ SCH (20:27)
--- NOTE | 2024-07-07 07:25 | Electrocardiogram Report ---
Test Reason : Blood Pressure : */* mmHG Vent. Rate : 56 BPM Atrial Rate : 56 BPM P-R Int : 134 ms QRS Dur : 86 ms QT Int : 448 ms P-R-T Axes : 69 78 79 degrees QTcB Int : 432 ms Sinus bradycardia Otherwise normal ECG When compared with ECG of 13-Apr-2024 15:48, T wave inversion no longer evident in Inferior leads Confirmed by Jossue Kelley ([id number]) on 07/07/2024 7:25:13 AM Referred By: REFERRED SELF Confirmed By: Jossue Kelley
[2024-07-07 07:39] VITALS: BP 115/70; PULSE 58; TEMP 98.1; O2SAT 97
[2024-07-07 08:04] LABS: Basophils # (auto) 0.05 K/uL (0.00-0.20); Basophils % (auto) 1.1 %; Eosinophils # (auto) 0.02 K/uL (0.00-0.50); Eosinophils % (auto) 0.4 %; Hematocrit (blood only) 33.9 % (42.0-52.0); Hemoglobin 11.3 g/dl (14.0-18.0); Immature Granulocytes # (auto) 0.01 K/uL (0.01-0.20); Immature Granulocytes % (auto) 0.2 %; Lymphocytes # (auto) 1.97 K/uL (1.20-3.40); Mean Corpuscular Hemoglobin 29.5 pg (25.0-34.0); Mean Corpuscular Hgb Conc 33.3 g/dL (32.0-36.0); Mean Corpuscular Volume 88.5 fL (80.0-100.0); Mean Platelet Volume 10.8 fL (9.4-12.4); Monocytes # (auto) 0.54 K/uL (0.11-0.59); Monocytes % (auto) 11.8 %; Neutrophils # (auto) 1.99 K/uL (1.40-6.50); Neutrophils % (auto) 43.5 %; Platelet Count 192 K/uL (130-400); RDW Coefficient of Variation 14.6 % (11.5-14.5); RDW Standard Deviation 47.3 fL (36.4-46.3); Red Blood Count 3.83 M/uL (4.70-6.10); White Blood Count 4.58 K/ul (4.8-10.8)
[2024-07-07 08:31] LABS: Albumin Globulin Ratio 1.7 (0.9-2); Albumin Level 3.3 gm/dl (3.4-5.0); BUN Creatinine Ratio 16.4 (10-20); Bilirubin,Total 0.7 mg/dl (0.2-1.0); Calcium 8.5 mg/dl (8.6-10.3); Creatinine Clr Calc Pharmacy 92.2 ml/min; Globulin 1.9 gm/dl (2.5-4.0); Magnesium 1.7 mg/dl (1.7-2.4); Phosphorus 4.1 mg/dl (2.5-4.9); Potassium 3.8 mmol/L (3.5-5.1); Total Protein 5.2 gm/dl (6.0-8.3)
[2024-07-07] MEDS: CHOLECALCIFEROL 25 MCG (1000 UNITS) TAB PO SCH (08:57)
[2024-07-07] MEDS: ESCITALOPRAM OXALATE 10 MG TAB PO SCH (08:57)
[2024-07-07] MEDS: PANTOprazole 40 MG TAB PO SCH (08:57)
[2024-07-07] MEDS: THIAMINE HCL 200 MG in SODIUM CHLORIDE 0.9% 50 ML IV SCH (09:06)
[2024-07-07] MEDS: MAGNESIUM SULFATE / D5W 1 GM/100 ML BAG IV ONE (10:33)
[2024-07-07] MEDS: MULTIVITAMIN TAB PO SCH (10:37)
[2024-07-07] MEDS: FOLIC ACID 1 MG TAB PO SCH (10:37)
--- NOTE | 2024-07-07 12:09 | Discharge Summary ---
Date of Service July 07, 2024 Admission HPI Per Admitting Provider This is a 59-year-old male with past medical history significant for esophageal/gastric cancer status post neoadjuvant chemotherapy/surgery, surgery consisted of total gastrectomy and trevin-en-Y esophagojejunal anastomosis, chronic anemia (baseline hemoglobin 12-13), history trigeminal neuralgia status post surgery, past tobacco abuse presents with nausea and vomiting x 2 days. Patient states his symptoms started 2 days ago. He has had persistent nausea and dry heaves. He has been unable to keep anything down orally. He has tried his home remedies and oral amend without relief. He was hospitalized in February for similar symptoms requiring hospitalization and IV Emend. He denies any recent alcohol use. He states a week ago him and his tested positive for COVID. His symptoms have since resolved. He complains of chills but denies any fever, sweats, lightheadedness, dizziness, chest pain, shortness with, cough, abdominal pain, change in bowel or urinary habits. He does have chronic diarrhea and this is unchanged. He complains a frontal headache with photophobia. He denies any prior history of migraine. He feels it is related to dehydration. He has been taking his medications as prescribed. Again he has been unable to keep anything down over the last 2 days other than some liquids. In ED patient have a mildly elevated lipase. He is recommended to be admitted for observation. Admission Exam Per Admitting Provider Constitutional: Thin, M, appears acutely ill, covering forhead, vitals as above, NAD, sitting up in bed, pleasant, conversing easily Head: Normocephalic, Atraumatic Eyes: PERRL, conjunctivae normal, anicteric sclerae ENMT: external ear and nose normal, oropharynx normal Neck: trachea midline, no thyromegaly normal visual inspection Respiratory: normal respiratory effort, lungs clear to auscultation, no wheeze, rales, rhonchi. Normal insp/exp effort, no accessory muscle use Cardiovascular: RRR, no murmur, no edema Vessels: no JVD or carotid bruit Chest: normal inspection of chest Abdomen: normal bowel sounds, soft, nontender, no hepatosplenomegaly Musculoskeletal: no cyanosis or clubbing, extremities motor strength 5/5 Skin: no rashes, warm and dry normal turgor Neurologic: PERRL, EOMI, accommodation nl, no face palsy, no dysarthria CN's II-XI intact bilaterally and moves all extremities Psychiatric: A+Ox3, euthymic affect Principal Diagnosis (1) Intractable nausea and vomiting: (2) History of esophageal cancer: Discharge Exam Constitutional: Slim M in NAD, eating Head: Normocephalic, Atraumatic Eyes: PERRL, conjunctivae normal, anicteric sclerae ENMT: external ear and nose normal Neck: supple Respiratory: normal respiratory effort, lungs clear to auscultation, no wheeze, rales, rhonchi. Cardiovascular: RRR, no murmur, no edema Vessels: no JVD or carotid bruit Chest: normal inspection of chest Abdomen: normal bowel sounds, soft, nontender Musculoskeletal: extremities motor strength 5/5 Skin: warm, dry Neurologic: PERRL, EOMI, no face palsy, no dysarthria, answers appropriately, speech fluent, moves all extremities Psychiatric: A+Ox3, euthymic affect Discharge Data Allergies Allergy/AdvReac Type Severity Reaction Status Date / Time carbamazepine [From Tegretol] Allergy Mild Rash Verified 02/13/24 11:18 Consultations 07/06/24 15:23 ED Decision to Admit Stat Hospital Course (1) Intractable nausea and vomiting: (2) History of esophageal cancer: (3) Severe malnutrition: Plan 59 yo M with past medical history significant for esophageal/gastric cancer status post neoadjuvant chemotherapy/surgery, surgery consisted of total gastrectomy and trevin-en-Y esophagojejunal anastomosis, chronic anemia (baseline hemoglobin 12-13), history trigeminal neuralgia status post surgery, past tobacc o abuse presents with nausea and vomiting x 2 days. Intractable nausea or vomiting Hx of gastric/esophageal ca s/p adjuvant chemo and s/p total gastrectomy and trevin en y esophagojejunal anastomosis Elevated Lipase conservative measures with IV antiemetics, fluids clear liquid diet, advance as tolerated --KUB/CXR without acute findings pt sx improving after fluids and IV emend in ED 07/07 Currently sitting up and eating regular diet, symptoms completely resolved q2h feeding due to hx of total gastrectomy per pt received gentle IVF NSS + 20meq KCL x 24 hrs replace mag, for mag 1.7 continue z[facility]rexa [facility], currently under observation since 07/2023 Severe malnutrition in setting of hx of cancer on zyprexa weight has remained stable Elevated Lipase secondary to n/v no abdominal pain, no indication for further imaging, pt denies ETOH use now normal Total Time Total Time Spent Total Time Spent (In Minutes): 40 Discharge Plan Discharge Items Patient Disposition: Home - Self-Care Reason For Visit: INTRACTABLE N/V Discharge Diagnosis: (1) Intractable nausea and vomiting: (2) History of esophageal cancer: Activity: Per Instructions section Non-emergency contact: Primary Care Provider Call non-emergency contact if: you have any medication questions and your symptoms worsen Follow-up/Referrals: Thaddeus Solis MD [Primary Care Provider] - Diet: Regular Addtl Attending Provider Instructions: Follow up with your primary care doctor in 1-2 weeks. Pending Studies at Discharge: No Stand-Alone Forms: [employer], Smoking Cessation Medications and DC Order Prescriptions: Continued cyanocobalamin (vitamin B-12) [Vitamin B-12] 500 mcg Tablet 500 mcg PO DAILYBD cholecalciferol (vitamin D3) [Vitamin D3] 50 mcg (2,000 unit) Tablet 50 mcg PO DAILY olanzapine [Zyprexa] 5 mg tablet 5 mg PO HS pantoprazole 40 mg tablet,delayed release (DR/EC) 40 mg PO QAM escitalopram oxalate 10 mg tablet 10 mg PO QAM morphine concentrate 100 mg/5 mL (20 mg/mL) solution 100 mg PO UD PRN (Reason: Pain) Rx Instructions: 0.5 ML q4h prn prochlorperazine maleate 10 mg tablet 10 mg PO DIRECTED PRN (Reason: n/v) lorazepam 0.5 mg tablet 0.5 mg PO DIRECTED PRN (Reason: Other) folic acid 1 mg tablet 1 mg PO .DAILY @ LUNCH aprepitant 80 mg capsule 80 mg PO DIRECTED PRN (Reason: n/v) Discharge Orders: Discharge Order (Routine); Ordered 07/07/24 Ordered By: Ronald Dillon Admission Data Admit Date/Time: 07/06/24 16:12 Attending Provider: Ronald Dillon Admit Provider: Carli Miguel Primary Care Provider: Thaddeus Solis Other Providers: Carli Miguel
--- OUTSIDE RECORDS SUMMARY | 2024-07-07 14:00 | External Medical Summary | Summary of Care ---
Author Name Unknown Organization [facility] Address [address] [place] [address] Phone [phone] Care Team Providers Care Construction Area Manager Name Role Phone Thaddeus Solis MD Primary Care Provider [phone] Reason for Visit * Reason Comments eRx-Medication Refill Encounter Details Date Type Department Care Team (Late st Contact Info) Description 06/27/2024 Refill [facility] [address] [place] [address] Thaddeus Solis MD [address] [place] [address] Allergies Active Allergy Reactions Criticality Noted Date Comments Carbamazepine Rash Medium 02/20/2018 documented as of this encounter (statuses as of 06/29/2024) Medications Vitamin D (Cholecalciferol ) 50 MCG (1999 UT) Oral Capsule Take 1 Capsule by mouth daily. Follow up with your primary care provider for further management. 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 10 Patch 12 4 Active Pantoprazole Sodium 20 MG Oral Tablet [...] mouth in the morning. 30 Tablet 5 4 Active Magnesium 100 MG Oral Tablet Take 1 Tablet by mouth in the morning. Active Folic Acid 1 MG Oral TabletIndication s:Folic acid deficiency (non anemic) Take 1 Tablet by mouth in the morning. 30 Tablet 11 4 Active Multivitamin Adult Oral Tablet ChewableIndicati ons:Severe malnutrition (HCC) Take 1 Tablet by mouth daily. 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 30 Tablet 2 4 Active Aprepitant 80 MG Oral Capsule (Emend) Take 1 Capsule by mouth daily as needed for Nausea. 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 Never true 09/07/2023 Childcare Answer Date Recorded Do you feel overwhelmed with taking care of a child, family member or friend? No 09/07/2023 Does your family need help f inding childcare? (Household - for ages 0-17 years) Not on file 09/07/2023 Clothing Answer Date Recorded Have you been unable to get clothing when it was really needed? No 09/07/2023 Is your family able to get c lothes or diapers when needed? (Household - for ages 0-17 years) Not on file 09/07/2023 Personal Safety Answer Date Recorded Do you feel unsafe or have concerns for your saf ety? No 09/26/2023 Do you have concerns for you r family's safety? (Household - for ages 0-17 years) Not on file 09/26/2023 Utilities Answer Date Recorded Do you have trouble paying y our heating, water, or electric bill? No 09/26/2023 Is your family able to pay t he heat, water, or electric bill? (Household - for ages 0-17 years) Not on file 09/26/2023 Does your family have access to good internet? (Household - for ages 0-17 years) Not on file 09/26/2023 Employment Status Answer Date Recorded Are you unemployed or without regular income? No 09/07/2023 Does the household have a re gular source of income? (Household - for ages 0-17 years) Not on file 09/07/2023 Social Connections Answer Date Recorded How often do you feel lonely or isolated from those around you? Sometimes 09/07/2023 Financial Resource Strain Answer Date R ecorded Do you have any trouble payi ng for your medications, or do you think you might in the future? No 09/07/2023 Does your family have troubl e paying for medicine? (Household - for ages 0-17 years) Not on file 09/07/2023 Transportation Needs Answer Date Record ed READ ONLY Do you have troubl e getting a ride to medical visits or work? Never True 09/26/2023 Does your family have a hard time getting a ride to doctors visits? (Household - for ages 0-17 years) Not on file 09/26/2023 Has lack of transportation k ept you from medical appointments, meetings, work, or from getting things needed for daily living? Check all that apply. (Adult - for ages 18 years and over) Not on file 09/26/2023 Do you (or your family) have trouble finding or paying for a ride (transportation)? (Household - for ages 0-17 years) Not on file 09/26/2023 Housing Stability Answer Date Recorded Do you currently live in a s helter or have no steady place to sleep at night? No 09/26/2023 READ ONLY Do you think you a re at risk of becoming homeless? No 09/26/2023 Does your family worry about paying for your home or becoming homeless? (Household - for ages 0-17 years) Not on file 0 09/26/2023 Are you homeless or worried that you might be in the future? (Adult - for ages 18 years and over) Not on file Are you (or your family) bridgett eless or worried that you might be in the future? (Household - for ages 0-17 years) Not on file Food Insecurity Answer Date Recorded Do you need food for this week? No 09/26/2023 Are you able to get enough f ood for your family? (Household - for ages 0-17 years) Not on file 09/26/2023 Does your family need food t his week? (Household - for ages 0-17 years) Not on file 09/26/2023 Do you always have enough fo od for your family? 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 Answer Date of Assessment Author No 09/26/2023 10:09 PM Kailee Draper RN * Are you blind or do you have serious difficulty seeing, even when wearing glasses? Answer Date of Assessment Author No 09/26/2023 10:09 PM Kailee Draper RN * Do you have serious difficulty walking or climbing stairs? (5 years old or older) Answer Date of Assessment Author No 09/26/2023 10:09 PM Kailee Draper RN * Do you have difficulty dressing or bathing? (5 years old or older) Answer Date of Assessment Author No 09/26/2023 10:09 PM Kailee Draper RN * Because of a physical, mental, or emotional condition, do you have difficulty doing errands alone such as visiting a doctors office or shopping? (15 years old or older) Answer Date of Assessment Author No 09/26/2023 10:09 PM Kailee Draper RN documented as of this encounter Mental Status * Because of a physical, mental, or emotional condition, do you have serious difficulty concentrating, remembering, or making decisions? (5 years old or older) Answer Entry Date Author No 09/26/2023 10:09 PM Kailee Draper RN documented in this encounter Miscellaneous Notes * Telephone Encounter - Pema De La Fuente [facility] - 06/29/2024 8:47 AM EST Refused Prescriptions: Disp Refills Ondansetron 4 MG Oral Tablet Disintegratin*15 Tab*0 Sig: DISSOLVE ONE TABLET IN MOUTH EVERY EIGHT HOURS NEEDED FOR NAUSEA AND VOMITING FOR 5 DAYSRefused By: PEMA DE LA FUENTEReason for Refusal: Patient Should Contact Provider First * Telephone Encounter - Interface, [facility] - 06/28/2024 8:25 PM EST Pending Prescriptions: Disp Refills Ondansetron 4 MG Oral Tablet Disintegratin*15 Tab*0 Sig: DISSOLVE ONE TABLET IN MOUTH EVERY EIGHT HOURS NEEDED FOR NAUSEA AND VOMITING FOR 5 DAYS documented in this encounter Plan of Treatment Upcoming Encounters Date Type Department Care Team (Late st Contact Info) Description 09/03/2024 10:30 AM EST Imaging Radiology [address] [facility] [place] [address] 10/04/2024 9:30 AM EST Office Visit Hematology/Oncology [facility] [place] [address] [place] [address] Cipriano Kuhn MD 200 [facility] [place] [address] Scheduled Procedures Name Priority Associated Diagnoses Date/Ti me COLONOSCOPY FLEXIBLE PROXIMA L DIAGNOSTIC Recall History of colonic polyps Health Maintenance Due Date Last Done Comments Cologuard 2009 Fecal Occult Blood Test 2009 Sigmoidoscopy 2009 Depression Screening 12/21/2018 12/21/2017 Lipid Panel 04/19/2019 04/19/2014 COVID-19 Vaccine (3 - 2023-2 5 season) 2024 04/10/2021, 03/19/2021 Influenza Vaccine (FLU shot) (#1) 2024 DTap/Tdap Vaccines (2 - Td o r Tdap) 08/09/2024 08/29/2010 Postponed from 08/29/2020 (Patient Declined After Education) Zoster Vaccines (1 of 2) 08/09/2024 Pos tponed from 2014 (Patient Declined After Education) Colonoscopy 03/30/2033 03/30/2023, 03/30/2023 Colorectal Cancer Screening 03/30/2033 HPV (Gardasil) Vaccine Aged Out No lo nger eligible based on patient's age to complete this topic Hepatitis B Vaccine Discontinued MENINGOCOCCAL (MENACTRA/MENVEO) Aged Out No longer eligible b ased on patient's age to complete this topic Pneumococcal Vaccine: Pediatrics (0 to 5 Years) and At-Risk Patients (6 to 64 Years) Aged Out No longer eligible b ased on patient's age to complete this topic documented as of this encounter Medical Devices Implanted Type Area Sports Cartoonist Device Identifier Shelf Expiration Date Model / Serial / Lot Cement Hydroset Injectable 5cc - [id number] Implanted:Qty : 1 on 03/15/2018 by Ronak Khoury MD at OR [facility] Left: Head JOHN 11/09/2019 [id number] / / [id number] Needle Fiducial 22ga - [id number] Implanted:Qty : 1 on 04/01/2023 by Karson Goddard MD at ENDOSCOPY [facility] N/A: Esophagus GIVEN IMAGING [id number] 01/12/2025 DSF-22-01 / / [id number] Stent Wallf Esoph 23/[id number] - [id number] Implanted:Qty : 1 on 04/01/2023 by Karson Goddard MD at ENDOSCOPY [facility] N/A: Esophagus [employer] : ENDOSCOPY [id number] 09/09/2024 [id number] / / [id number] Power Port 8fr Sngl Lumen Plas - [id number] Implanted:Qty : 1 on 04/19/2023 by Thaddeus Brown, DO at OR [facility] Right: Chest CR BARD : PERIPHERAL VASCULAR [id number] 06/14/2024 [id number] / / [id number] documented as of this encounter Advance Directives [...] Power of Attor yves? No Care Teams Construction Area Manager Relationship Specialty Start Date End Date Thaddeus Solis MD [address] [place] [address] PCP - General Family Medicine 09/12/23 documented as of this encounter
--- OUTSIDE RECORDS SUMMARY | 2024-07-07 14:00 | External Medical Summary ---
Author Name Unknown Address Unknown Organization [id number]:LABORATORY [facility] - [address] [place] [address] Laboratory Report Ordering Provider Test Date Status JUSTINA QUIÑONEZ 05/15/2024 08:48:41 Final Observation Date Value Abnormality Reference (Units ) Status Vitamin B12 05/15/2024 08:48:41 [phone] (pg/mL) Final Performing Location [facility] - [address] [place] [address]
--- OUTSIDE RECORDS SUMMARY | 2024-07-07 14:00 | External Medical Summary ---
Author Name Unknown Address Unknown Organization [id number]:LABORATORY [facility] - [address] [facility] [address] Laboratory Report Ordering Provider Test Date Status JUSTINA QUIÑONEZ 05/15/2024 08:48:41 Final Observation Date Value Abnormality Reference (Units ) Status Folic Acid 05/15/2024 08:48:41 9.9 >4.5 (ng/ mL) Final Performing Location [facility] [address] [facility] [address]
--- OUTSIDE RECORDS SUMMARY | 2024-07-07 14:00 | External Medical Summary | Summary of Care ---
Author Name Unknown Organization [facility] Address [address] [place] [address] Phone [phone] Care Team Providers Care Field Crop Farmworker Name Role Phone Thaddeus Solis MD Primary Care Provider [phone] Reason for Visit * Reason Comments Outpatient Testing Encounter Details Date Type Department Care Team (Late st Contact Info) Description 05/15/2024 9:00 AM EDT Laboratory Laboratory [facility] [address] [place] [phone] [place], [address] [place] [address] History of esophageal cancer; Other folate deficiency anemias; B12 deficiency Allergies Active Allergy Reactions Criticality Noted Date Comments Carbamazepine Rash Medium 02/20/2018 documented as of this encounter (statuses as of 05/15/2024) Medications Medication Sig Dispensed Refills Start Date End Date Status Vitamin D (Cholecalciferol) 50 MCG (1999 UT) Oral Capsule Take 1 Capsule by mouth daily. Follow up with your primary care provider for further management. 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 10 Patch 12 10/03/2023 Active Pantoprazole Sodium 20 MG Oral Tablet Delayed Release (Protonix) Take 1 Tablet by mouth in the morning. Active Ondansetron HCl 4 MG Oral Tablet Take 1 Tablet by mouth every 8 hours as needed for Nausea. Active Vitamin B-12 1000 MCG Oral Tablet (Cyanocobalamin)Ind ications:Malignant neoplasm of lower third of esophagus (HCC) Take 1 Tablet by mouth in the morning. 30 Tablet 5 11/02/2023 Active OLANZapine 5 MG Oral Tablet (zyPREXA) TAKE 1 TABLET BY MOUTH AT BEDTIME FOR NAUSEA 90 Tablet 1 11/04/2023 Active Magnesium 100 MG Oral Tablet Take 1 Tablet by mouth in the morning. Active Folic Acid 1 MG Oral TabletIndications:F olic acid deficiency (non anemic) Take 1 Tablet by mouth in the morning. 30 Tablet 11 02/23/2024 Active Multivitamin Adult Oral Tablet ChewableIndications :Severe malnutrition (HCC) Take 1 Tablet by mouth daily. 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 30 Tablet 2 04/12/2024 Active Aprepitant 80 MG Oral Capsule (Emend) Take 1 Capsule by mouth daily as needed for Nausea. 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) TAKE ONE TABLET BY MOUTH EVERY 6 HOURS NEEDED FOR ANXIETY OR SLEEP 30 Tablet 05/04/2024 Active Escitalopram Oxalate 10 MG Oral Tablet (Lexapro) take 1/2 tablet by mouth daily for 7 days then 1 tablet daily at bedtime 30 Tablet 5 05/07/2024 Active documented as of this encounter (statuses as of 05/15/2024) Active Problems Problem Noted Date Diagnosed Date [...] as of this encounter (statuses as of 05/15/2024) Immunizations Name Administration Dates Next Due TDAP [...] Department Care Team (Latest Contact Info) Description 05/15/2024 9:15 AM EDT Immunization/Inj ection Hematology/Oncology Treatment, [place] [address] [place] [phone] [address] [place] [address] [address] [place] [address] History of esophageal cancer* 06/26/2024 9:15 AM EST Immunization/Inj ection Hematology/Oncology Treatment, [place] [phone] [place], [address] [place] [address] 09/03/2024 10:30 AM EST Imaging Radiology [facility] [facility], [place] [address] [facility] [place] [address] 10/04/2024 9:15 AM EST Office Visit Hematology/Oncology [facility] [address] [place] [phone] Cipriano Kuhn MD [address] [place] [address] Pending Results Name Type Priority Associated Diagnoses Date /Time COMPREHENSIVE METABOLIC PANEL Lab STAT History of esophageal cancer 05/15/2024 8:48 AM EDT VITAMIN B12 Lab STAT B12 deficiency 05/15/2024 8:48 AM EDT FOLIC ACID Lab STAT Other folate deficiency anemias 05/15/2024 8:48 AM EDT FERRITIN Lab STAT History of esophageal cancer Other folate deficiency anemias 05/15/2024 8:48 AM EDT IRON SCREEN, INCLUDING TIBC Lab STAT History of esophageal cancer Other folate deficiency anemias 05/15/2024 8:48 AM EDT Scheduled Procedures Name Priority Associated Diagnoses Date/Ti [...] this encounter Medical Devices Implanted Type Area Taste Tester Device Identifier Shelf Expiration Date Model / Serial / Lot Cement Hydroset Injectable 5cc - [id number] Implanted:Qty : 1 on 03/15/2018 by Ronak Khoury MD at OR [facility] [place] Left: Head JOHN 11/09/2019 [id number] / / [id number] Needle Fiducial 22ga - [id number] Implanted:Qty : 1 on 04/01/2023 by Karson Goddard MD at ENDOSCOPY [facility] [place] N/A: Esophagus GIVEN IMAGING [id number] 01/12/2025 DSF-22-01 / / [id number] Stent Wallf Esoph 23/[id number] - [id number] Implanted:Qty : 1 on 04/01/2023 by Karson Goddard MD at ENDOSCOPY [facility] [place] N/A: Esophagus [employer] : ENDOSCOPY [id number] 09/09/2024 [id number] / / [id number] Power Port 8fr Sngl Lumen Plas - [id number] Implanted:Qty : 1 on 04/19/2023 by Thaddeus Brown DO at OR [facility] Right: Chest CR BARD : PERIPHERAL VASCULAR [id number] 06/14/2024 [id number] / / [id number] documented as of this encounter Procedures Procedure Name Priority Date/Time Associated Diagnosis Comments DIFFERENTIAL, AUTOMATED STAT 05/15/2024 8:48 AM EDT History of esophageal cancer Other folate deficiency anemias CBC STAT 05/15/2024 8:48 AM EDT History of esophageal cancer Other folate deficiency anemias CBC STAT 05/15/2024 8:48 AM EDT History of esophageal cancer Other folate deficiency anemias documented in this encounter Results * (ABNORMAL) DIFFERENTIAL, AUTOMATED (05/15/2024 8:48 AM EDT) WBC 4.12 4.00 - 10.80 K/uL 05/15/2024 8:55 AM EDT LAB[facility] [place] 56-02 Neutrophils % 47.1 40.0 - 75.0 % 05/15/2024 8:55 AM EDT LABORATORY [facility] [place] 56-02 Lymphocytes % 42.2(H) 18.0 - 42.0 % 05/15/2024 8:55 AM EDT LABORATORY [facility] 56-02 Monocytes % 9.0 1.0 - 11.0 % 05/15/2024 8:55 AM EDT LABORATORY [place] 56-02 Eosinophils % 1.5 0.0 - 6.0 % 05/15/2024 8:55 AM EDT [facility] [place] 56-02 Basophils % 0.2 0.0 - 2.0 % 05/15/2024 8:55 AM EDT LABORATORY [facility] [place] 56-02 Absolute Neutrophils 1.94 1.80 - 7.70 K/uL 05/15/2024 8:55 AM EDT LABORATORY [facility] [place] 56-02 Absolute Lymphocytes 1.74 1.00 - 4.80 K/ul 05/15/2024 8:55 AM EDT LABORATORY [facility] [place] 56-02 Absolute Monocytes 0.37 0.00 - 1.10 K/uL 05/15/2024 8:55 AM EDT [facility] [place] 56-02 Absolute Eosinophils 0.06 0.00 - 0.70 K/uL 05/15/2024 8:55 AM EDT LABORATORY [facility] [place] 56-02 Absolute Basophils 0.01 0.00 - 0.20 K/uL 05/15/2024 8:55 AM EDT LABORATORY [place] 56-02 Blood Venous blood specimen / Unknown Venipuncture / Unknown 05/15/2024 8:48 AM EDT 05/15/2024 8:48 AM EDT Cipriano Kuhn MD LAB BLOOD ORDERABLES [facility] [address] [place] [address] * (ABNORMAL) CBC (05/15/2024 8:48 AM EDT) WBC 4.12 4.00 - 10.80 K/uL 05/15/2024 8:55 AM EDT [facility] 56- RBC 4.10 4.50 - 5.25 M/uL 05/15/2024 8:55 AM EDT [facility] 56- HGB 12.3(L) 14.0 - 16.8 g/dL 05/15/2024 8:55 AM EDT [facility] 56- HCT 37.1(L) 40.0 - 48.4 % 05/15/2024 8:55 AM EDT [facility] 56- MCV 90.5 82.0 - 99.5 fL 05/15/2024 8:55 AM EDT [facility] 56- MCH 30.0 27.0 - 34.0 pg 05/15/2024 8:55 AM EDT [facility] 56- MCHC 33.2 32.0 - 36.0 g/dL 05/15/2024 8:55 AM EDT [facility] 56- RDW 15.6 11.5 - 15.5 % 05/15/2024 8:55 AM EDT [facility] 56- PLT 200 140 - 400 K/uL 05/15/2024 8:55 AM EDT [facility] 56- MPV 9.8 6.6 - 11.1 fL 05/15/2024 8:55 AM EDT [facility] 56- Blood Venous blood specimen / Unknown Venipuncture / Unknown 05/15/2024 8:48 AM EDT 05/15/2024 8:48 AM EDT Cipriano Kuhn MD LAB BLOOD ORDERABLES [facility] [address] [place] [address] documented in this encounter Visit Diagnoses Diagnosis History of esophageal cancer- Primary Personal history of malignant neoplasm of esophagus History of esophageal cancer Personal history of malignant neoplasm of esophagus Other folate deficiency anemias B12 deficiency Other B-complex deficiencies documented in this encounter Advance Directives * [...] Power of Attor yves? No Care Teams Field Crop Farmworker Relationship Specialty Start Date End Date Thaddeus Solis MD [address] [place] [address] PCP - General Family Medicine 09/12/23 documented as of this encounter
--- OUTSIDE RECORDS SUMMARY | 2024-07-07 14:00 | External Medical Summary ---
Author Name Unknown Address Unknown Organization K01:LABORATORY C - [address] [place] [address] Laboratory Report Ordering Provider Test Date Status JUSTINA QUIÑONEZ 05/15/2024 08:48:41 Final Observation Date Value Abnormality Reference (Units ) Status Ferritin 05/15/2024 08:48:41 65 30-400 (ng /mL) Final Performing Location [facility] - [address] [place] [address]
--- OUTSIDE RECORDS SUMMARY | 2024-07-07 14:00 | External Medical Summary | Summary of Care ---
Author Name Unknown Organization [facility] Address [address] [place] [address] Phone [phone] Care Team Providers Care Assistant Laboratory Director Name Role Phone Thaddeus Solis MD Primary Care Provider [phone] Encounter Details Date Type Department Care Team (Late st Contact Info) Description 07/02/2024 Orders Only Hematology/Oncology [facility] Sandra [place] [address] [facility] [place] [phone] Cipriano Kuhn MD 200 [facility] [place] [address] Allergies Active Allergy Reactions Criticality Noted Date Comments Carbamazepine Rash Medium 02/20/2018 documented as of this encounter (statuses as of 07/02/2024) Medications Vitamin D (Cholecalciferol ) 50 MCG (1999) Oral Capsule Take 1 Capsule by mouth daily. Follow up with your primary care provider for further management. 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 [place] [address] 10/04/2024 9:30 AM EST Office Visit Hematology/Oncology [facility] [place] [address] [place] [address] Cipriano Kuhn MD [address] [place] [address] Scheduled Procedures Name Priority Associated Diagnoses Date/Ti [...] this encounter Medical Devices Implanted Type Area Disc Jockey Device Identifier Shelf Expiration Date Model / Serial / Lot Cement Hydroset Injectable 5cc - [id number] Implanted:Qty : 1 on 03/15/2018 [place] Ronak [place] [facility] [place] Head JOHN 11/09/2019 [id number] / / [id number] Needle Fiducial 22ga - [id number] Implanted:Qty : 1 on 04/01/2023 by Karson Goddard MD [place] [facility] [place]A: Esophagus GIVEN IMAGING [id number] 01/12/2025 DSF-22-01 / / [id number] Stent Wallf Esoph 23/[id number] - [id number] Implanted:Qty : 1 on 04/01/2023 by Karson Goddard MD [place] [facility] [place]A: Esophagus [employer] : ENDOSCOPY [id number] 09/09/2024 [id number] / / [id number] Power Port 8fr Sngl Lumen Plas - [id number] Implanted:Qty : 1 on 04/19/2023 by Thaddeus Brown DO at OR [facility] Right: Chest CR BARD : PERIPHERAL VASCULAR [id number] 06/14/2024 [id number] / / [id number] documented as of this encounter Advance Directives [...] Power of Attor yves? No Care Teams Assistant Laboratory Director Relationship Specialty Start Date End Date Thaddeus Solis MD [address] [facility] [place] [address] PCP - General Family Medicine 09/12/23 documented as of this encounter
--- OUTSIDE RECORDS SUMMARY | 2024-07-07 14:00 | External Medical Summary | Summary of Care ---
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 30 Tablet 5 11/02/2023 Active Magnesium 100 MG Oral Tablet Take 1 Tablet by mouth in the morning. Active Folic Acid 1 MG Oral TabletIndications: Folic acid deficiency (non anemic) Take 1 Tablet by mouth in the morning. 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) TAKE ONE TABLET BY MOUTH EVERY 6 HOURS NEEDED FOR ANXIETY OR SLEEP 30 Tablet 06/04/2024 Active LORazepam 0.5 MG Oral Tablet (Ativan)Indication s: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) TAKE ONE TABLET BY MOUTH EVERY 6 HOURS NEEDED FOR ANXIETY OR SLEEP 30 Tablet 05/04/2024 4 Discontinue d(Refill) documented as of this encounter (statuses as of 06/04/2024) Active Problems Problem Noted Date Diagnosed Date [...] as of this encounter (statuses as of 06/04/2024) Immunizations Name Administration Dates Next Due TDAP [...] encounter Miscellaneous Notes * Telephone Encounter - Ophelia Solis MD - 06/04/2024 5:34 PM EDTSigned Prescriptions: Disp Refills LORazepam 0.5 MG Oral Tablet (Ativan) 30 Tab*0 Sig: TAKE ONE TABLET BY MOUTH EVERY 6 HOURS NEEDED FOR ANXIETY OR SLEEP Authorizing Provider: OPHELIA SOLIS * Telephone Encounter - Marianela Marks [facility] - 06/04/2024 7:54 AM EDTPending Prescriptions: Disp Refills LORazepam 0.5 MG Oral Tablet (Ativan) 30 Tab*0 Sig: TAKE ONE TABLET BY MOUTH EVERY 6 HOURS NEEDED FOR ANXIETY OR SLEEP * Telephone Encounter - Marianela Marks [facility] - 06/04/2024 7:54 AM EDT I have reviewed the patients controlled substance dispensing history in the Prescription Drug Monitoring Program in compliance with the [facility] regulations before prescribing a controlled substance. PDMP checked on 06/04/2024. Pending Prescriptions: Disp Refills LORazepam 0.5 MG Oral Tablet (Ativan) 30 Tab*0 Sig: TAKE ONE TABLET BY MOUTH EVERY 6 HOURS NEEDED FOR ANXIETY OR SLEEP Last Visit: 02/23/2024 (in office), Visit date not found (telemedicine) Next Visit: Visit date not found Date medication was last filled: 05/04/24 Date medication is due for refill: 05/10/24 Pharmacy: [id number] Is this request for a controlled substance? Yes and Urine Drug Screen Not completed Toxicology results: No results found for this or any previous visit. Please approve if appropriate. Thanks, Marianela Marks Clinical Pharmacist [facility] ([facility]) [phone] 06/04/2024, 7:54 AM documented in this encounter Plan of Treatment Upcoming Encounters Date Type Department Care Team (Late st Contact Info) Description 06/26/2024 9:15 AM EST Immunization/Injec tion Hematology/Oncology Treatment, [place] [address] [place] [phone] Sandra, Chair 8 Hem Onc [address] [place] [address] 09/03/2024 10:30 AM EST Imaging Radiology [facility] 1st Floor, [place] [address] [facility] [place] [address] 10/04/2024 9:15 AM EST Office Visit Hematology/Oncology [facility] [place] [address] [place] [phone] Cipriano Kuhn MD [address] [place] [address] Scheduled Procedures Name Priority Associated Diagnoses Date/Ti [...] this encounter Medical Devices Implanted Type Area Manager Hair Device Identifier Shelf Expiration Date Model / Serial / Lot Cement Hydroset Injectable 5cc - [id number] Implanted:Qty : 1 on 03/15/2018 by Ronak [place]y [place] [facility] Head JOHN 11/09/2019 [id number] / / [id number] 37 Needle Fiducial 22ga - [id number] Implanted:Qty : 1 on 04/01/2023 by Karson Goddard MD [place] [facility] [place]A: Esophagus GIVEN IMAGING [id number] 01/12/2025 DSF-22-01 / / [id number] Stent Wallf Esoph 23/88lne17py - [id number] Implanted:Qty : 1 on 04/01/2023 by Karson Goddard MD [place] [facility] N/A: Esophagus [employer] : ENDOSCOPY [id number] 09/09/2024 [id number] / / [id number] Power Port 8fr Sngl Lumen Plas - [id number] Implanted:Qty : 1 on 04/19/2023 by Ophelia Brown DO [facility] Right: Chest CR BARD : PERIPHERAL VASCULAR [id number] 06/14/2024 [id number] / / [id number] documented as of this encounter Visit Diagnoses Diagnosis 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 No Care Teams Oak Tanner Relationship Specialty Start Date End Date Ophelia Solis MD [address] [facility] [place] [address] PCP - General Family Medicine 09/12/23 documented as of this encounter
--- OUTSIDE RECORDS SUMMARY | 2024-07-07 14:00 | External Medical Summary ---
Author Name Unknown Address Unknown Organization K09:[facility] [place] [address] Laboratory Report Ordering Provider Test Date Status JUSTINA QUIÑONEZ 05/15/2024 08:48:41 Final Observation Date Value Abnormality Reference (Units ) Status SYNC LEUKOCYTES IN BLOOD BY AUTOMATED COUNT 05/15/2024 08:48:41 4.12 4.00-10.80 (K/uL) Final Segs 05/15/2024 08:48:41 47.1 40.0-75.0 (%) Final Lymphs % 05/15/2024 08:48:41 42.2 Above high normal 18.0-42.0 (%) Final Monos 05/15/2024 08:48:41 9.0 1.0-11.0 (%) Final Eosinophils 05/15/2024 08:48:41 1.5 0.0-6.0 (%) Final Basos 05/15/2024 08:48:41 0.2 0.0-2.0 (%) Final Absolute Segs 05/15/2024 08:48:41 1.94 1.80-7.70 (K/uL) Final Lymphs, absolute 05/15/2024 08:48:41 1.74 1.00-4.80 (K/ul) Final Monos, Abs 05/15/2024 08:48:41 0.37 0.00-1.10 (K/uL) Final Eos, Abs 05/15/2024 08:48:41 0.06 0.00-0.70 (K/uL) Final Basos, Abs 05/15/2024 08:48:41 0.01 0.00-0.20 (K/uL) Final Performing Location [facility] [address] [place] [address]
--- OUTSIDE RECORDS SUMMARY | 2024-07-07 14:00 | External Medical Summary | Summary of Care ---
Author Name Unknown Organization [facility] Address [address] [place] [address] Phone [phone] Care Team Providers Care Student Teacher Name Role Phone Thaddeus Solis MD Primary Care Provider [phone] Reason for Visit * Reason Comments Procedure Port flush Encounter Details Date Type Department Care Team (Late st Contact Info) Description 07/03/2024 10:00 AM EST Nurse Only Hematology/Oncology Treatment, [address] [phone] Sandra, Chair [address] [address] Procedure (Port flush) Allergies Active Allergy Reactions Criticality Noted Date Comments Carbamazepine Rash Medium 02/20/2018 documented as of this encounter (statuses as of 07/03/2024) Medications Vitamin D (Cholecalciferol ) 50 MCG [...] as of this encounter (statuses as of 07/03/2024) Active Problems Problem Noted Date Diagnosed Date [...] as of this encounter (statuses as of 07/03/2024) Immunizations Name Administration Dates Next Due TDAP [...] 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 Pt presents for port flush with no concerns to report. Pt reports feeling well. VAD (Venous Access Device) accessed with #19G 3/4" without difficulty. VAD flushed with 10 ml NSS and Heparin 5 ml (100 units/ml). Bird needle removed intact. Pt discharged in stable condition. documented in this encounter Plan of Treatment Upcoming Encounters Date Type Department Care Team (Late st Contact Info) Description 08/14/2024 10:00 AM EST Nurse Only Hematology/Oncology Treatment, [place] [address] [place] [address] [place], Chair 8 Hem Onc [facility] [address] [facility] [place] [address] 09/03/2024 10:30 AM EST Imaging Radiology [facility] [address] [facility] [place] [address] 10/04/2024 9:30 AM EST Office Visit Hematology/Oncology [facility] [address] [facility] [place] [phone] Cipriano Kuhn MD [address] [facility] [place] [address] Scheduled Procedures Name Priority Associated Diagnoses Date/Ti [...] this encounter Medical Devices Implanted Type Area Oil Filters Inspector Device Identifier Shelf Expiration Date Model / Serial / Lot Cement Hydroset Injectable 5cc - [id number] Implanted:Qty : 1 on 03/15/2018 by Ronak Khoury [place] [facility] [place]: Head JOHN 11/09/2019 [id number] / / [id number] 37 Needle Fiducial 22ga - [id number] Implanted:Qty : 1 on 04/01/2023 by Karson Goddard MD [place] [facility] [place]/A: Esophagus GIVEN IMAGING [id number] 01/12/2025 DSF-22-01 / / [id number] Stent Wallf Esoph 23/39cof74tq - [id number] Implanted:Qty : 1 on 04/01/2023 by Karson Goddard MD at [place] [facility] [place] N/A: Esophagus [employer] : ENDOSCOPY [id number] 09/09/2024 [id number] / / [id number] Power Port 8fr Sngl Lumen Plas - [id number] Implanted:Qty : 1 on 04/19/2023 by Thaddeus Brown DO at OR [facility] Right: Chest CR BARD : PERIPHERAL VASCULAR [id number] 06/14/2024 [id number] / / [id number] documented as of this encounter Visit Diagnoses Diagnosis Encounter for adjustment and management of vascular access device- Primary History of esophageal cancer Personal history of malignant neoplasm of esophagus documented in this encounter Administered Medications Active Administered Medications - up to 3 most recent administrations Medication Order MAR Action Action Date Dose Rate Site hEParin 100 UNIT/ML Lock Flush inj 500 Units 500 Units (5 mL), IV Lock, PRN Other, IV Flush, Starting on Tue07/03/24 at 1402, Until Tue07/04/24 at 1401, For 24 hours, Do not flush if lock, PICC, or central line not in place; IV infusing or unable to flush.Indications:History of esophageal cancer Given 07/03/2024 10:16 AM EST 500 Units sodium chloride 0.9 % flush central line 10 mL 10 mL, IV Push, PRN Other, IV Flush, Starting on Tue07/03/24 at 1402, Until Tue07/04/24 at 1401, For 24 hours, Do not flush if lock, PICC, or central line not in place; IV infusing or unable to flush.Indications:History of esophageal cancer Given 07/03/2024 10:16 AM EST 10 mL documented in this encounter [...] Power of Attor yves? No Care Teams Student Teacher Relationship Specialty Start Date End Date Thaddeus Solis MD [address] [place] [address] PCP - General Family Medicine 09/12/23 documented as of this encounter
--- OUTSIDE RECORDS SUMMARY | 2024-07-07 14:00 | External Medical Summary | Summary of Care ---
Author Name Unknown Organization [facility] Address [address] [place] [address] Phone [phone] Care Team Providers Care Improvement Engineer Name Role Phone Ophelia Solis MD Primary Care Provider [phone] Reason for Visit * Reason Comments eRx-Medication Refill Encounter Details Date Type Department Care Team (Late st Contact Info) Description 05/23/[address] [facility] [address] [place] [address] Ophelia Solis MD [address] [place] [address] Allergies Active Allergy Reactions Criticality Noted Date Comments Carbamazepine Rash Medium 02/20/2018 documented as of this encounter (statuses as of 05/24/2024) Medications Medication Sig Dispensed Refills Start Date [...] morning. Active Folic Acid 1 MG Oral TabletIndications :Folic acid deficiency (non anemic) Take 1 Tablet by mouth in the morning. 30 Tablet 11 02/23/2024 Active Multivitamin Adult Oral Tablet ChewableIndicatio ns:Severe malnutrition (HCC) Take 1 Tablet by mouth [...] 04/20/2024 Active LORazepam 0.5 MG Oral Tablet (Ativan)Indicatio [...] BEDTIME FOR NAUSEA 90 Tablet 05/24/2024 Active OLANZapine 5 MG Oral Tablet (zyPREXA) TAKE 1 TABLET BY MOUTH AT BEDTIME FOR NAUSEA 90 Tablet 1 11/04/2023 05/24/20 24 Discontinued documented as of this encounter (statuses as of 05/24/2024) Active Problems Problem Noted Date Diagnosed Date [...] as of this encounter (statuses as of 05/24/2024) Immunizations Name Administration Dates Next Due TDAP [...] Telephone Encounter - Ophelia Solis MD - 05/24/2024 3:23 PM EDTSigned Prescriptions: Disp Refills OLANZapine 5 MG Oral Tablet (zyPREXA) 90 Tab*0 Sig: TAKE 1 TABLET BY MOUTH AT BEDTIME FOR NAUSEA Authorizing Provider: OPHELIA SOLIS * Telephone Encounter - Lisbeth Diego LPN - 05/24/2024 7:36 AM EDTPending Prescriptions: Disp Refills OLANZapine 5 MG Oral Tablet [Pharmacy Med *90 Tab*0 Sig: TAKE 1 TABLET BY MOUTH AT BEDTIME FOR NAUSEA * Telephone Encounter - Jyothi Neff - 05/24/2024 4:16 AM EDTPending Prescriptions: Disp Refills OLANZapine 5 MG Oral Tablet [Pharmacy Med *90 Tab*0 Sig: TAKE 1 TABLET BY MOUTH AT BEDTIME FOR NAUSEA documented in this encounter Plan of Treatment Upcoming Encounters Date Type Department Care Team (Late st Contact Info) Description 06/26/2024 9:15 AM EST Immunization/Injec tion Hematology/Oncology Treatment, [place] [address] [place], [place] [address] Sandra, Chair 8 Hem Onc [facility] [address] [place], [place] [address] 09/03/2024 10:30 AM EST Imaging Radiology [address], [address] [place] [address] 10/04/2024 9:15 AM EST Office Visit Hematology/Oncology [facility] 200 [facility] [place] [address] Cipriano Khun MD [address] [facility] [place] [address] Scheduled Procedures Name Priority Associated Diagnoses Date/Ti [...] this encounter Medical Devices Implanted Type Area Clean Rice Grader And Reel Tender Device Identifier Shelf Expiration Date Model / Serial / Lot Cement Hydroset Injectable 5cc - [id number] Implanted:Qty : 1 on 03/15/2018 by Ronak Khoury MD [place] [facility] [place]: Head JOHN 11/09/2019 [id number] / / [id number] 37 Needle Fiducial 22ga - [id number] Implanted:Qty : 1 on 04/01/2023 by Karson Goddard MD at [place] [facility] N/A: Esophagus GIVEN IMAGING [id number] 01/12/2025 DSF-22-01 / / [id number] Stent Wallf Esoph 23/13zap64no - [id number] Implanted:Qty : 1 on 04/01/2023 by Karson Goddard MD at [place] [facility] N/A: Esophagus [employer] : ENDOSCOPY [id number] 09/09/2024 [id number] / / [id number] Power Port 8fr Sngl Lumen Plas - [id number] Implanted:Qty : 1 on 04/19/2023 by Ophelia Brown DO at OR [facility] Right: Chest CR BARD : PERIPHERAL VASCULAR [id number] 06/14/2024 [id number] / / [id number] documented as of this encounter Advance Directives [...] Power of Attor yves? No Care Teams Improvement Engineer Relationship Specialty Start Date End Date Ophelia Solis MD [address] [place] [address] PCP - General Family Medicine 09/12/23 documented as of this encounter
--- OUTSIDE RECORDS SUMMARY | 2024-07-07 14:00 | External Medical Summary | Summary of Care ---
Author Name Unknown Organization [facility] Address [address] [place] [address] Phone [phone] Care Team Providers Care Manager Adult Name Role Phone Thaddeus Solis MD Primary Care Provider [phone] Reason for Visit * Reason Onset Date Comments Health Maintenance 05/23/2024 Encounter Details Date Type Department Care Team (Late st Contact Info) Description 05/23/2024 Telephone [facility] [address] [place] [address] Thaddeus Solis MD [address] [place] [address] Health Maintenance Allergies Active Allergy Reactions Criticality Noted Date Comments Carbamazepine Rash Medium 02/20/2018 documented as of this encounter (statuses as of 05/23/2024) Medications Medication Sig Dispensed Refills Start Date [...] as of this encounter (statuses as of 05/23/2024) Active Problems Problem Noted Date Diagnosed Date [...] as of this encounter (statuses as of 05/23/2024) Immunizations Name Administration Dates Next Due TDAP [...] encounter Miscellaneous Notes * Telephone Encounter - Analy Rich LPN - 05/23/2024 11:02 AM EDT Care Gaps Comprehensive Care Outreach Last Office/Telemedicine Visit: 02/23/2024 (in office), Visit date not found (telemedicine) Next Office Visit: Visit date not found Hemoglobin AIC Results: No results found for: "HEMOGLOBIN A1C" BP Readings from Last 1 Encounters: 04/26/24 102/68 Reviewed Health Maintenance below: Health Maintenance Topic Date Due Depression Screening 12/21/2018 Lipid Panel 04/19/2019 Influenza Vaccine (FLU shot) (1) Never done COVID-19 Vaccine ( season) 2024 Palliative care Care Gap Outreach Action Taken: Outreach not indicated documented in this encounter Plan of Treatment Upcoming Encounters Date Type Department Care Team (Late st Contact Info) Description 06/26/2024 9:15 AM EST Immunization/Injec tion Hematology/Oncology Treatment, [place] [address] [place] [phone] Sandra, Chair 8 Hem Onc [facility] [address] [place] [address] 09/03/2024 10:30 AM EST Imaging Radiology [facility], [place] [address] [facility] [place] [address] 10/04/2024 9:15 AM EST Office Visit Hematology/Oncology [facility] [place] [address] [facility] [place] [phone] Cipriano Kuhn MD [address] [place] [address] Scheduled Procedures Name Priority Associated Diagnoses Date/Ti me COLONOSCOPY FLEXIBLE PROXIMAL DIAGNOSTIC Recall History of colonic polyps ESOPHAGOGASTRODUODENOSCOPY ( EGD), FLEXIBLE, TRANSORAL, DIAGNOSTIC Recall Malignant neoplasm of esophagus, unspecified location (HCC) Health Maintenance Due Date Last Done Comments Cologuard 2009 Fecal Occult Blood Test 2009 Sigmoidoscopy 2009 Depression Screening 12/21/2018 12/21/2017 Lipid Panel 04/19/2019 04/19/2014 COVID-19 Vaccine (2 5 season) 2024 04/10/2021, 03/19/2021 Influenza Vaccine [...] encounter Medical Devices Implanted Type Area Supervisor Frame Sample And Pattern Device Identifier Shelf Expiration Date Model / Serial / Lot Cement Hydroset Injectable 5cc - [id number] Implanted:Qty : 1 on 03/15/2018 by Ronak Khoury [place] [facility] [place]: Head JOHN 11/09/2019 [id number] / / [id number] Needle Fiducial 22ga - [id number] Implanted:Qty : 1 on 04/01/2023 by Karson Goddard MD [place] [facility] [place]/A: Esophagus GIVEN IMAGING [id number] 01/12/2025 DSF-22-01 / / [id number] Stent Wallf Esoph 23/67tlh70do - [id number] Implanted:Qty : 1 on 04/01/2023 by Karson Goddard MD [place] [facility] [place] N/A: Esophagus [employer] : ENDOSCOPY [id number] 09/09/2024 [id number] / / [id number] Power Port 8fr Sngl Lumen Plas - [id number] Implanted:Qty : 1 on 04/19/2023 by Thaddeus Brown DO at OR [facility] Right: Chest CR BARD : PERIPHERAL VASCULAR [id number] 06/14/2024 [id number] / / [id number] documented as of this encounter Advance Directives [...] Power of Attor yves? No Care Teams Manager Adult Relationship Specialty Start Date End Date Thaddeus Solis MD [address] [facility] [place] [address] PCP - General Family Medicine 09/12/23 documented as of this encounter
--- OUTSIDE RECORDS SUMMARY | 2024-07-07 14:00 | External Medical Summary | Summary of Care ---
Author Name Unknown Organization [facility] Address [address] [place] [address] Phone [phone] Care Team Providers Care Ruby On Rails Developer Name Role Phone Thaddeus Solis MD Primary Care Provider [phone] Reason for Visit * Reason Comments Procedure Port Flush Encounter Details Date Type Department Care Team (Late st Contact Info) Description 05/15/2024 9:15 AM EDT Immunization/I njection Hematology/Oncology Treatment, [address] [phone] Sandra, Chair [address] [id number] History of esophageal cancer*; Encounter for central line care Allergies Active Allergy Reactions Criticality Noted Date [...] of this encounter Nursing Notes * Edie Joyner RN - 05/15/2024 9:41 AM EDT Patient ambulatory to chair 8 Patient voices no complaints or concerns Safety and Risk for Injury Patient will remain free from injury. Ensure appropriate safety devices are available. Provide and maintain safe environment. Patient instructed on use of heat and massage functions where applicable. Patient shown how to operate the heat function of the chair and to alert nursing staff if the chair feels too warm. Patient instructed on the risk of potential vogel while using the heat function. Goals: patient will remain free of injury Possible barriers to meeting goals: Stability of the patient: Moderately stable - low risk of patient condition declining or worsening Summary regarding today's goals: Met: patient remained free of injury VAD (Venous Access Device) accessed with #20G 3/" without difficulty. Flushed easy, positive bloodreturn. VAD flushed with 10 ml NSS and Heparin 5 ml (100 units/ml). Bird needle removed intact. Patient discharged in good condition, tolerated well documented in this encounter Plan of Treatment Upcoming Encounters Date Type Department Care Team (Late st Contact Info) Description 06/26/2024 9:15 AM EST Immunization/Injec tion Hematology/Oncology Treatment, [place] [address] [place] [phone] Sandra, Chair 8 Hem Onc [facility] [address] [facility] [place] [address] 09/03/2024 10:30 AM EST Imaging Radiology [facility] 1st Floor, [place] [address] [facility] [place] [address] 10/04/2024 9:15 AM EST Office Visit Hematology/Oncology [facility] [place] [address] [facility] [place] [phone] Cipriano Kuhn MD [address] [place] [address] Scheduled Procedures Name Priority Associated Diagnoses Date/Ti [...] this encounter Medical Devices Implanted Type Area Private Equity Analyst Device Identifier Shelf Expiration Date Model / Serial / Lot Cement Hydroset Injectable 5cc - [id number] Implanted:Qty : 1 on 03/15/2018 by Ronak Khoury MD at [place] [facility] [place] Left: Head JOHN 11/09/2019 [id number] / / [id number] Needle Fiducial 22ga - [id number] Implanted:Qty : 1 on 04/01/2023 by Karson Goddard MD at [place]OSCOPY [facility] [place] N/A: Esophagus GIVEN IMAGING [id number] 01/12/2025 DSF-22-01 / / [id number] Stent Wallf Esoph 23/[id number] - [id number] Implanted:Qty : 1 on 04/01/2023 by Karson Goddard MD at ENDOSCOPY [facility] [place] N/A: Esophagus [employer] : ENDOSCOPY [id number] 09/09/2024 [id number] / / [id number] Power Port 8fr Sngl Lumen Plas - [id number] Implanted:Qty : 1 on 04/19/2023 by Thaddeus Brown DO at OR [facility] Right: Chest CR BARD : PERIPHERAL VASCULAR [id number] 06/14/2024 [id number] / / [id number] documented as of this encounter Visit Diagnoses Diagnosis History of esophageal cancer- Primary Personal history of malignant neoplasm of esophagus Encounter for central line care Fitting and adjustment of vascular catheter documented in this encounter Administered Medications Active Administered Medications - up to 3 most recent administrations Medication Order MAR Action Action Date Dose Rate Site hEParin 100 UNIT/ML Lock Flush inj 500 Units 500 Units (5 mL), IV Lock, PRN Other, IV Flush, Starting on Tue05/15/24 at 0854, Until Tue05/16/24 at 0853, For 24 hours, Do not flush if lock, PICC, or central line not in place; IV infusing or unable to flush. Given 05/15/2024 9:01 AM EDT 500 Units sodium chloride 0.9 % flush central line 10 mL 10 mL, IV Push, PRN Other, IV Flush, Starting on Tue05/15/24 at 0854, Until Tue05/16/24 at 0853, For 24 hours, Do not flush if lock, PICC, or central line not in place; IV infusing or unable to flush. Given 05/15/2024 9:01 AM EDT 10 mL documented in this [...] Power of Attor yves? No Care Teams Ruby On Rails Developer Relationship Specialty Start Date End Date Thaddeus Solis MD [address] [place] [address] PCP - General Family Medicine 09/12/23 documented as of this encounter
--- OUTSIDE RECORDS SUMMARY | 2024-07-07 14:00 | External Medical Summary | Summary of Care ---
Author Name Unknown Organization [facility] Address [address] [place] [address] Phone [phone] Care Team Providers Care Diesel Engine Fitter Name Role Phone Ophelia Solis MD Primary Care Provider Reason for Visit * Reason Comments eRx-Medication Refill Encounter Details Date Type Department Care Team (Late st Contact Info) Description 05/23/2024 Refill [facility] [address] [place] [address] Ophelia Solis MD [address] [place] [address] Allergies Active Allergy Reactions Criticality [...] encounter Miscellaneous Notes * Telephone Encounter - Deepali Collazo CPhT - 06/04/2024 12:02 PM EDT Pt calling to request olanzapine. Informed pt that RX is available at their pharmacy. Pt verbalizedunderstanding and stated they will check with their pharmacy regarding this medication. Thank you, Rupali Collazo CPhT [employer] Sheet [employer] [facility] 06/04/2024,12:02 PM * Telephone Encounter - Ophelia Solis MD [...] Tablet [Pharmacy Med *90 Tab*0 Sig: TAKE 1TABLET BY MOUTH AT BEDTIME FOR NAUSEA documented in this encounter Plan of Treatment Upcoming Encounters Date Type Department Care Team (Late st Contact Info) Description 06/26/2024 9:15 AM EST Immunization/Injec tion Hematology/Oncology Treatment, [place] [address] [place] [phone] Sandra, Chair 8 Hem Onc [address] [place] [address] 09/03/2024 10:30 AM EST Imaging Radiology [facility] 1st Floor, [place] [address] [facility] [place] [address] 10/04/2024 9:15 AM EST Office Visit Hematology/Oncology [facility] Sad[place] [address] [place] [phone] Cipriano Kuhn MD [address] [place] [address] Scheduled Procedures Name Priority Associated Diagnoses Date/Ti [...] this encounter Medical Devices Implanted Type Area Pediatric Physiatrist Device Identifier Shelf Expiration Date Model / Serial / Lot Cement Hydroset Injectable 5cc - [id number] Implanted:Qty : 1 on 03/15/2018 by Rnoak Khoury MD at [place] [facility] [place] Left: Head JOHN 11/09/2019 [id number] / / [id number] Needle Fiducial 22ga - [id number] Implanted:Qty : 1 on 04/01/2023 by Karson Goddard MD at ENDOSCOPY [facility] [place] N/A: Esophagus GIVEN IMAGING [id number] 01/12/2025 DSF-22-01 / / [id number] Stent Wallf Esoph 23/66fwk09dc - [id number] Implanted:Qty : 1 on 04/01/2023 by Karson Goddard MD at ENDOSCOPY [facility] [place] N/A: Esophagus [employer] : ENDOSCOPY [id number] 09/09/2024 [id number] / / [id number] Power Port 8fr Sngl Lumen Plas - [id number] Implanted:Qty : 1 on 04/19/2023 by Ophelia Brown DO at OR [facility] Right: Chest CR BARD : PERIPHERAL VASCULAR [id number] 06/14/2024 [id number] / / [id number] documented as of this encounter Advance Directives [...] Power of Attor yves? No Care Teams Diesel Engine Fitter Relationship Specialty Start Date End Date Ophelia Solis MD [address] [facility] [place] [address] PCP - General Family Medicine 09/12/23 documented as of this encounter
--- OUTSIDE RECORDS SUMMARY | 2024-07-07 14:01 | External Medical Summary | Summary of Care ---
Author Name Unknown Organization [facility] Address [address] [place] [address] Phone [phone] Care Team Providers Care Temper Mill Roller Name Role Phone Thaddeus Solis MD Primary Care Provider [phone] Reason for Visit * Reason Onset Date Comments Test Results Imaging Study 05/10/2024 CT Sc an Encounter Details Date Type Department Care Team (Late st Contact Info) Description 05/10/2024 Telephone Hematology/Oncology [facility] [address] [place] [phone] Cipriano Kuhn MD [address] [place] [address] Test Results Imaging Study (CT Scan) Allergies Active Allergy Reactions Criticality Noted Date Comments Carbamazepine Rash Medium 02/20/2018 documented as of this encounter (statuses as of 05/10/2024) Medications Medication Sig Dispensed Refills Start Date [...] as of this encounter (statuses as of 05/10/2024) Active Problems Problem Noted Date Diagnosed Date [...] as of this encounter (statuses as of 05/10/2024) Immunizations Name Administration Dates Next Due TDAP [...] encounter Miscellaneous Notes * Telephone Encounter - Linda Gaytan LPN - 05/10/2024 2:06 PM EDT My G sent. * Telephone Encounter - Linda Gaytan LPN - 05/10/2024 1:56 PM EDT ----- Message from Cipriano Kuhn MD sent at 05/10/2024 1:30 PM EDT ----- CT scan of chest with contrast on 05/08/2024: -no new suspicious, no enlarged lymph nodes. No evidence of recurrence of esophageal cancer noted. documented in this encounter Plan of Treatment Upcoming Encounters Date Type Department Care Team (Late st Contact Info) Description 05/15/2024 9:00 AM EDT Laboratory Laboratory [facility] Sandra [place] [address] [place] [phone] Sandra, Lab [facility] [address] [facility] [place] [address] 05/15/2024 9:15 AM EDT Immunization/Injectio n Hematology/Oncology Treatment, [place] [address] [place] [phone] Sadnra, Chair 8 Hem Onc [facility] [address] [facility] [place] [address] 09/03/2024 10:30 AM EST Imaging Radiology [facility], [place] [address] [facility] [place] [address] 10/04/2024 9:15 AM EST Office Visit Hematology/Oncology [facility] [place] [address] [place] [phone] Cipriano Kuhn MD [address] [facility] [place] [address] Scheduled Procedures Name Priority Associated Diagnoses Date/Ti me COLONOSCOPY FLEXIBLE PROXIMAL DIAGNOSTIC Recall History of colonic polyps ESOPHAGOGASTRODUODENOSCOPY ( EGD), FLEXIBLE, TRANSORAL, DIAGNOSTIC Recall Malignant neoplasm of esophagus, unspecified location (HCC) Health Maintenance Due Date Last Done Comments Cologuard 2009 Fecal Occult Blood Test 2009 Sigmoidoscopy 2009 Depression Screening 12/21/2018 12/21/2017 Lipid Panel 04/19/2019 04/19/2014 COVID-19 Vaccine ( - 2023-2 5 season) 2024 04/10/2021, 03/19/2021 [...] this encounter Medical Devices Implanted Type Area Physician Office Assistant Device Identifier Shelf Expiration Date Model / Serial / Lot Cement Hydroset Injectable 5cc - [id number] Implanted:Qty : 1 on 03/15/2018 by Ronak Khoury MD at [place] [facility] [place] Left: Head JOHN 11/09/2019 [id number] / / [id number] Needle Fiducial 22ga - [id number] Implanted:Qty : 1 on 04/01/2023 by Karson Goddard MD at ENDOSCOPY [facility] [place] N/A: Esophagus GIVEN IMAGING [id number] 01/12/2025 DSF-22-01 / / [id number] Stent Wallf Esoph 23/81ido73wh - [id number] Implanted:Qty : 1 on 04/01/2023 by Karson Goddard MD at ENDOSCOPY [facility] [place] N/A: Esophagus [employer] : ENDOSCOPY [id number] 09/09/2024 [id number] / / [id number] Power Port 8fr Sngl Lumen Plas - [id number] Implanted:Qty : 1 on 04/19/2023 by Thaddeus Brown DO at OR [facility] Right: Chest CR BARD : PERIPHERAL VASCULAR [id number] 06/14/2024 [id number] / / [id number] documented as of this encounter Advance Directives [...] Power of Attor yves? No Care Teams Temper Mill Roller Relationship Specialty Start Date End Date Thaddeus Solis MD [address] [facility] [place] [place] [address] PCP - General Family Medicine 09/12/23 documented as of this encounter
--- OUTSIDE RECORDS SUMMARY | 2024-07-07 14:01 | External Medical Summary | Summary of Care ---
Author Name Unknown Organization [facility] Address [address] [place] [address] Phone [phone] Care Team Providers Care Territory Account Representative Name Role Phone Thaddeus Solis MD Primary Care Provider [phone] Reason for Referral * Evaluate & Treat - Unlimited Visits (Within 10 days (routine)) - Authorized Specialty Diagnoses / Procedures Referred By Contact Referred To Contact GI NUTRITION/IM / Gastroenterology Diagnoses Severe malnutrition (HCC) Georgi Long MD [address] [place] [address] Referral ID Status Reason Start Date Expiration Date Visits Requested Visits Authorized [id number] Authorized Specialty Services Required 04/26/[phone] Question Answer Referral Priority Within 10 days (routine) Where should this appointment be scheduled? [facility] For what condition is the patient being seen? Other Comments THE PATIENT WILL NOT BE PRESCRIBED GLP-1 MEDICATIONS UNLESS: *Documentation of an unsuccessful trial of losing at least 5% of weight loss *Documentation the patient has had tried and failed two [2] non-GLP1 agonists (Phentermine and Wellbutrin/ Naltrexone) *Documentation of two [2] or more appointments discussing weight loss and lifestyle changes *Documentation of a blood pressure and weight within the EMR before initiation of the GLP-1 or non-GLP-1 medications REFERRING PROVIDER MUST ACKNOWLEDGE ALL OF THE CONDITIONS ABOVE ARE MET AND HAVE A BMI >35. IF THESE CONDITIONS ARE NOT MET THE PATIENT WILL NOT BE PRESCRIBED GLP- 1 PRESCRIPTIONS. Post total gastrectomy weight loss and malnutrition, needs assistance with nutrition and supplies. Reason for Visit * Reason Comments NEW PATIENT New pt ref by Dr Talia pérez for esophageal cancer and total gastrectomy. 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 Yeison-en-Y esophagojejunal anastomosis History of esophageal cancer Thaddeus Solis MD [address] [place] [address] Referral ID Status Reason Start Date Expiration Date Visits Requested Visits Authorized [id number] Pending Review Specialty Services Required 12/22/[phone] Encounter Details Date Type Department Care Team (Late st Contact Info) Description 04/26/2024 9:20 AM EDT Office Visit Gastroenterology, [facility] [address] [place] [address] Georgi Long MD [address] [place] [address] Severe malnutrition (HCC)* Allergies Active Allergy Reactions Criticality Noted Date Comments Carbamazepine Rash Medium 02/20/2018 documented as of this encounter (statuses as of 04/26/2024) Medications Medication Sig Dispensed Refills Start Date End Date Status Escitalopram Oxalate 10 MG Oral Tablet (Lexapro) 1/2 tab daily x 7 days then 1 tab daily at bedtime 30 Tablet 5 09/22/2023 Active Vitamin D (Cholecalciferol) 50 MCG (1999 [...] 1 Tablet by mouth daily. 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) TAKE ONE TABLET BY MOUTH EVERY 6 HOURS NEEDED FOR ANXIETY OR SLEEP 30 Tablet 03/02/2024 Active Prochlorperazine Maleate 10 MG Oral Tablet [...] for vomiting 20 Tablet 1 04/20/2024 Active documented as of this encounter (statuses as of 04/26/2024) Active Problems Problem Noted Date Diagnosed Date [...] as of this encounter (statuses as of 04/26/2024) Immunizations Name Administration Dates Next Due TDAP [...] Sign Reading Time Taken Comments Blood Pressure 102/68 04/26/2024 9:10 AM EDT Pulse 80 04/26/2024 9:10 AM EDT Temperature 36.9 C (98.4 F) 04/26/2024 9:10 AM ED T Respiratory Rate - - Oxygen Saturation - - Inhaled Oxygen Concentration - - Weight 53.1 kg (117 lb) 04/26/2024 9:10 AM EDT Height - - Body Mass Index 16.32 02/23/2024 9:01 AM EDT documented in this encounter Functional Status [...] No 09/26/2023 documented as of this encounter Progress Notes * Georgi Long MD - 04/26/2024 9:11 AM EDT DATE OF SERVICE: 04/26/2024 REFERRING PHYSICIAN: Thaddeus Solis MD CC: Malnutrition HPI: 58 year old male patient with below medical comorbids, referred to the GI clinic for 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 He is currently cancer free however has been having issues with malnutrition, weight loss and intermittent episodes of nausea/vomiting. Still trying to adapt to not having a stomach. Prior Endoscopic work up: reviewed, EGD few months ago with wide open anastomosis. 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 Need for hepatitis C screening test 04/19/2014 Hepatitis C negative Trigeminal neuralgia of left side of face 12/14/2017 Family History Problem Relation Name Age of Onset No Past Hx Mother Stroke Father No Past Hx Son No Past Hx Unknown Past Surgical History: Procedure Laterality Date COLONOSCOPY, DIAGNOSTIC (RECTUM) 03/30/2023 adenomatous polyp, diverticulosis / COLONOSCOPY FLEXIBLE PROXIMAL DIAGNOSTIC performed by Homar Zhong MD at ENDOSCOPY [facility] EGD, FLEXIBLE, DIAGNOSTIC 03/30/2023 high-grade dysplasia on bx / ESOPHAGOGASTRODUODENOSCOPY (EGD), FLEXIBLE, TRANSORAL, DIAGNOSTIC performed by Homar Blair MD at ENDOSCOPY [facility] EGD, FLEXIBLE, DIAGNOSTIC N/A 09/27/2023 ESOPHAGOGASTRODUODENOSCOPY (EGD), FLEXIBLE, TRANSORAL, DIAGNOSTIC performed by Jackie Sanabria MD at ENDOSCOPY [facility] EGD, FLEXIBLE, DIAGNOSTIC N/A 06/20/2023 pre-existing stent removed/EGD/[place] EGD, W/ENDOSCOPIC US N/A 04/01/2023 ESOPHAGOGASTRODUODENOSCOPY (EGD), FLEXIBLE, TRANSORAL, ENDOSCOPIC ULTRASOUND performed by Karson Greco MD at ENDOSCOPY [facility] EXPLORE/DECOMPRESS CRANIAL NERVES Left 03/15/2018 CRANIECTOMY SUBOCCIPITAL EXPLORATION CRANIAL NERVES performed by Ronak Khoury MD at OR [facility] INSER TUNN ACC DEV;5 YRS/OLDER Right 04/19/2023 INSERT TUNNELED CENTRAL VENOUS ACCESS WITH SUBQ PORT performed by Thaddeus Brown DO at OR [facility] MICROSURGERY ADD-ON Left 03/15/2018 MICROSURGICAL SURGERY REQUIRING MICROSCOPE LISTED SEPARATELY performed by Ronak Khoury MD at [facility] REMOVE STOMACH, TOTAL N/A 08/02/2023 GASTRECTOMY TOTAL WITH ESOPHAGOENTEROSTOMY performed by Praveen Edmonds MD at OR [facility] SPINAL FLUID TAP FOR DRAINAGE Left 03/15/2018 SPINAL PUNCTURE DRAINAGE CSF performed by Ronak Khoury MD at OR [facility] Social History Tobacco Use Smoking status: Former Types: Cigars Smokeless tobacco: Never Tobacco comments: Very infrequently Vaping Use Vaping status: Never Used Substance Use Topics Alcohol use: Yes Alcohol/week: 5.0 standard drinks of alcohol Types: 5 12 oz of beer per week Comment: social Drug use: Not Currently Types: Marijuana Comment: infrequently Review of patient's allergies indicates: Allergen Reactions Tegretol [Carbamazepine] Rash Current Outpatient Medications Medication Sig Dispense Refill Escitalopram Oxalate 10 MG Oral Tablet (Lexapro) 1/2 tab daily x 7 days then 1 tab daily at [id number] Tablet 5 Vitamin D (Cholecalciferol) 50 MCG (2000 UT) Oral Capsule Take 1 Capsule by mouth daily. Follow up with your primary care provider for further management. 30 Capsule 0 Ondansetron HCl 8 MG Oral Tablet (Zofran) Take 1 Tablet by mouth every 8 hours as needed for Nausea. 30 Tablet 2 Pantoprazole Sodium 40 MG Oral Tablet Delayed Release (Protonix) Take 1 Tablet by mouth in the morning. (Patient taking differently: Take 1 Tablet by mouth in the morning and 1 Tablet before bedtime.) 90 Tablet 3 Scopolamine 1 MG/3DAYS Transdermal Patch 72 Hour (Transderm Scop) Place 1 Patch over 72 hours topically on the skin every 3 days. 10 Patch 12 Vitamin B-12 1000 MCG Oral Tablet (Cyanocobalamin) Take 1 Tablet by mouth in the morning. 30 Tablet5 OLANZapine 5 MG Oral Tablet (zyPREXA) TAKE 1 TABLET BY MOUTH AT BEDTIME FOR NAUSEA 90 Tablet 1 Folic Acid 1 MG Oral Tablet Take 1 Tablet by mouth in the morning. 30 Tablet 11 Multivitamin Adult Oral Tablet Chewable Take 1 Tablet by mouth daily. LORazepam 0.5 MG Oral Tablet (Ativan) TAKE ONE TABLET BY MOUTH EVERY 6 HOURS NEEDED FOR ANXIETY OR SLEEP 30 Tablet 0 Prochlorperazine Maleate 10 MG Oral Tablet (Compazine) Take 1 Tablet by mouth every 6 hours as needed for Nausea. 30 Tablet 2 Aprepitant 80 MG Oral Capsule (Emend) Take 1 Capsule by mouth daily as needed for Nausea. 30 Capsule 0 Morphine Sulfate (Concentrate) 100 MG/5ML Oral Solution Take 0.25 mL by mouth every 4 hours as needed for Pain, Moderate. 30 mL 0 Promethazine HCl 25 MG Oral Tablet (Phenergan) TAKE 1 TABLET BY MOUTH THREE TIMES DAILY NEEDED for vomiting 20 Tablet 1 Pantoprazole Sodium 20 MG Oral Tablet Delayed Release (Protonix) Take 1 Tablet by mouth in the morning. (Patient not taking: Reported on 04/26/2024) Ondansetron HCl 4 MG Oral Tablet Take 1 Tablet by mouth every 8 hours as needed for Nausea. (Patient not taking: Reported on 04/26/2024) Magnesium 100 MG Oral Tablet Take 1 Tablet by mouth in the morning. (Patient not taking: Reported on 04/26/2024) No current facility-administered medications for this visit. REVIEW OF SYSTEMS: GENERAL: No fever, chills or fatigue. SKIN: No new skin rashe or itching. Eyes: No changes in vision, no redness. ENT: No sore throat or hoarseness of voice, no tinnitus. CARDIO: No chest pain, shortness of breath or palpitations. RESP: No cough, sputum, hemoptysis or exertional dyspnea. GI: Refer to HPI EXAM: BP 102/68 | Pulse 80 | Temp 36.9 C (98.4 F) | Wt 53.1 kg (117 lb) | BMI 16.32 kg/m | BSA 1.63m GENERAL: No acute distress. SKIN: Warm, intact, no rash, or spider angiomata. EYES: No scleral icterus or pallor, no redness. HEAD: Normocephalic, Atraumatic. NECK: Supple, full ROM, no masses or thyroid enlargement. ABDOMEN: Normal bowel sounds, non distended, soft, nontender, no rebound or guarding, EXTREMITIES: No cyanosis, clubbing or edema, no palmar erythema. NEURO: A&Ox 3. Sensory/Motor grossly normal. No localized deficit. DIAGNOSTIC TEST (Labs and Imaging): reviewed ASSESSMENT AND PLAN: Severe malnutrition (HCC) (Primary) - GI NUTRITION REFERRAL OP Unfortunately, there is nothing much to add from GI perspective, this is classic complication aftertotal gastrectomy however it can be managed and handled by Nutrition service. They will help check and monitor his vitamins and nutrients and replenish them. He gets attacks of GI illness than shouldbe managed symptomatically with bowel rest and antiemetics. He needs better education from Nutrition about how to get dense calories with soft texture diet. He should not have regular meals. RTC as needed. I spent a total of 30 min on 04/26/24 in review of patient's record and previously obtained information, in person and appropriate medical visit, discussion and education of plan with patient and/or caregiver, placing of orders for tests/referrals/procedures as medically necessary, and documentation of pertinent clinical information in the patient's medical records for their visit today. Georgi Long M.D Attending Physician [facility] Gastroenterology documented in this encounter Nursing Notes * Birgit Neville CMA - 04/26/2024 9:10 AM EDT Chief Complaint Patient presents with NEW PATIENT New pt ref by Dr Solis for esophageal cancer and total gastrectomy. documented in this encounter Plan of Treatment Upcoming Encounters Date Type Department Care Team (Late st Contact Info) Description 05/09/2024 9:30 AM EDT Office Visit Palliative Medicine [facility] [address] [place] [address] Sonia Schumacher MD [address] [place] [address] 05/15/2024 9:00 AM EDT Laboratory Laboratory [facility] [address] [place] [phone] Sandra, Lab [address] [place] [address] 05/15/2024 9:15 AM EDT Immunization/Injecti on Hematology/Oncology Treatment, [address] [phone] Sandra, Chair 8 Hem Onc [address] [place] [address] 09/03/2024 10:30 AM EST Imaging Radiology [facility] [address] [place] [address] 10/04/2024 9:15 AM EST Office Visit Hematology/Oncology [facility] [address] [facility] [place] [phone] Cipriano Kuhn MD [address] [facility] [place] [address] Scheduled Procedures Name Priority Associated Diagnoses Date/Ti me COLONOSCOPY FLEXIBLE PROXIMAL DIAGNOSTIC Recall History of colonic polyps ESOPHAGOGASTRODUODENOSCOPY ( EGD), FLEXIBLE, TRANSORAL, DIAGNOSTIC Recall Malignant neoplasm of esophagus, unspecified location (HCC) Scheduled Referrals Name Type Priority Associated Diagnoses Orde r Schedule GI NUTRITION REFERRAL OP Referral Within 10 days (routine) Severe malnutrition (HCC) Ordered: 04/26/2024 Health Maintenance Due Date Last Done Comments [...] this encounter Medical Devices Implanted Type Area Instrument Person Device Identifier Shelf Expiration Date Model / Serial / Lot Cement Hydroset Injectable 5cc - [id number] Implanted:Qty : 1 on 03/15/2018 by Ronak Khoury MD at OR [facility] Left: Head JOHN 11/09/2019 [id number] / / [id number] Needle Fiducial 22ga - [id number] Implanted:Qty : 1 on 04/01/2023 by Karson Goddard MD at ENDOSCOPY [facility] N/A: Esophagus GIVEN IMAGING [id number] 01/12/2025 DSF-22-01 / / [id number] Stent Wallf Esoph 23/[id number] - [id number] Implanted:Qty : 1 on 04/01/2023 by Karson Goddard MD at ENDOSCOPY [facility] N/A: Esophagus [employer] : ENDOSCOPY [id number] 09/09/2024 [id number] / / [id number] Power Port 8fr Sngl Lumen Plas - [id number] Implanted:Qty : 1 on 04/19/2023 by Thaddeus Brown DO at OR [facility] Right: Chest CR BARD : PERIPHERAL VASCULAR [id number] 06/14/2024 [id number] / / [id number] documented as of this encounter Visit Diagnoses Diagnosis Severe malnutrition (HCC)- Primary Nutritional marasmus documented in this encounter Advance Directives * [...] Power of Attor yves? No Care Teams Territory Account Representative Relationship Specialty Start Date End Date Thaddeus Solis MD [address] [facility] [place] [address] PCP - General Family Medicine 09/12/23 documented as of this encounter"
--- OUTSIDE RECORDS SUMMARY | 2024-07-07 14:01 | External Medical Summary | Summary of Care ---
Author Name Unknown Organization [facility] Address [address] [place] [address] Phone [phone] Care Team Providers Care Measurement Supervisor Name Role Phone Thaddeus Solis MD Primary Care Provider [phone] Reason for Visit * Reason Onset Date Comments Appointment 04/26/2024 Encounter Details Date Type Department Care Team (Late st Contact Info) Description 04/26/2024 Telephone [facility]enterology, [facility] [place] [address] Georgi Long MD [address] [facility] [place] [address] Appointment Allergies Active Allergy Reactions Criticality Noted Date Comments Carbamazepine Rash Medium 02/20/2018 documented as of this encounter (statuses as of 04/26/2024) Medications Medication Sig Dispensed Refills Start Date End Date Status Escitalopram Oxalate 10 MG Oral Tablet (Lexapro) 1/2 tab daily x 7 days then 1 tab daily at bedtime 30 Tablet 5 09/22/2023 Active Vitamin D (Cholecalciferol) 50 MCG (2000 [...] encounter Miscellaneous Notes * Telephone Encounter - Rachael Cordoba OSA - 04/26/2024 9:50 AM EDT Please contact pt to schedule per referral from Dr. Long for severe malnutrition. GLADIS Valenzuela 04/26/2024 9:50 AM documented in this encounter Plan of Treatment Upcoming Encounters Date Type Department Care Team (Late st Contact Info) Description 05/09/2024 9:30 AM EDT Office Visit Palliative Medicine [address] [place], [place] [phone] Sonia Schumacher MD [address] [place] [address] [place] [address] 05/15/2024 9:00 AM EDT Laboratory Laboratory [facility] 200 [facility] [place] [phone] Sandra, Lab [address] [place], [place] [address] 05/15/2024 9:15 AM EDT Immunization/Injecti on Hematology/Oncology Treatment, [place] 200 [facility], [place] [phone] Sandra, Chair [address] Hem Onc [address] [place], [place] [address] 09/03/2024 10:30 AM EST Imaging Radiology [address], [place] [facility] [address] 10/04/2024 9:15 AM EST Office Visit Hematology/Oncology [address] [place], [place] [phone] Cipriano Kunh MD 200 [facility] [place], [place] [address] Scheduled Procedures Name Priority Associated Diagnoses Date/Ti [...] this encounter Medical Devices Implanted Type Area Cash Surrender Calculator Device Identifier Shelf Expiration Date Model / Serial / Lot Cement Hydroset Injectable 5cc - [id number] Implanted:Qty : 1 on 03/15/2018 by Ronak Khoury MD at OR [facility] Left: Head JOHN 11/09/2019 [id number] / / [id number] Needle Fiducial 22ga - [id number] Implanted:Qty : 1 on 04/01/2023 by Karson Goddard MD at ENDOSCOPY [facility] N/A: Esophagus GIVEN IMAGING [id number] 01/12/2025 DSF-22-01 / / [id number] Stent Wallf Esoph 23/[id number] - [id number] Implanted:Qty : 1 on 04/01/2023 by Karson Goddard MD at ENDOSCOPY [facility] N/A: Esophagus [employer] : ENDOSCOPY [id number] 09/09/2024 [id number] / / [id number] Power Port 8fr Sngl Lumen Plas - [id number] Implanted:Qty : 1 on 04/19/2023 by Thaddeus Brown DO at OR [facility] Right: Chest CR BARD : PERIPHERAL VASCULAR [id number] 06/14/2024 [id number] / / [id number] documented as of this encounter Advance Directives [...] Power of Attor yves? No Care Teams Measurement Supervisor Relationship Specialty Start Date End Date Thaddeus Solis MD [address] [place] [address] PCP - General Family Medicine 09/12/23 documented as of this encounter
--- OUTSIDE RECORDS SUMMARY | 2024-07-07 14:01 | External Medical Summary | Summary of Care ---
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) Allergies Active Allergy Reactions Criticality Noted Date Comments Carbamazepine Rash Medium 02/20/2018 documented as of this encounter (statuses as of 05/04/2024) Medications Medication Sig Dispensed Refills Start Date [...] ANXIETY OR SLEEP 30 Tablet 05/04/2024 Active LORazepam 0.5 MG Oral Tablet (Ativan)Indicatio ns: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 (Household - for ages [...] Telephone Encounter - Ophelia Solis MD - 05/04/2024 6:09 PM EDTSigned Prescriptions: Disp Refills LORazepam 0.5 MG Oral Tablet (Ativan) 30 Tab*0 Sig: TAKE ONE TABLET BY MOUTH EVERY 6 HOURS NEEDED FOR ANXIETY OR SLEEP Authorizing Provider: OPHELIA SOLIS * Telephone Encounter - Prachi Bojorquez [facility] - 05/04/2024 2:17 PM EDT Pending Prescriptions: Disp Refills LORazepam 0.5 MG Oral Tablet [Pharmacy Med*30 Tab*0 Sig: TAKE ONE TABLET BY MOUTH EVERY 6 HOURS NEEDED FOR ANXIETY OR SLEEP * Telephone Encounter - Prachi Bojorquez [facility] - 05/04/2024 2:16 PM EDT I have reviewed the patients controlled substance dispensing history in the Prescription Drug Monitoring Program in compliance with the [facility] regulations before prescribing a controlled substance. PDMP checked on 05/04/2024. Pending Prescriptions: Disp Refills LORazepam 0.5 MG Oral Tablet (Ativan) [Ph*30 Tab*0 Sig: TAKE ONE TABLET BY MOUTH EVERY 6 HOURS NEEDED FOR ANXIETY OR SLEEP Last Visit: 02/23/2024 (in office), Visit date not found (telemedicine) Next Visit: Visit date not found Date medication was last filled: 03/25/24 Date medication is due for refill: 03/31/24 Pharmacy: [id number] [facility] Is this request for a controlled substance? Yes and Urine Drug Screen Not completed Toxicology results: No results found for this or any previous visit. Please approve if appropriate. Thank You Prachi Bojorquez, PharmD Clinical Pharmacist [facility] ([facility]) [phone] / [phone] 05/04/2024, 2:17 PM documented in this encounter Plan of Treatment Upcoming Encounters Date Type Department Care Team (Late st Contact Info) Description 05/08/2024 9:45 AM EDT Imaging Radiology [address] [address] 05/09/2024 9:30 AM EDT Office Visit Palliative [facility] [phone] Sonia Schumacher MD [address] [place], [place] [address] [address] 05/15/2024 9:00 AM EDT Laboratory Laboratory [address] [place] [phone] Sandra, Lab [place] [address] [address] [facility] [place] [address] 05/15/2024 9:15 AM EDT Immunization/Injecti on Hematology/Oncology Treatment, [address] [phone] Sandra, Chair [address] On[address] [place] [address] 09/03/2024 10:30 AM EST Imaging Radiology [address] [facility] [place] [address] 10/04/2024 9:15 AM EST Office Visit Hematology/Oncology [address] [place] [phone] Cipriano Kuhn MD 200 [facility] [place] [address] Scheduled Procedures Name Priority Associated Diagnoses Date/Ti [...] encounter Medical Devices Implanted Type Area Physician General Practice Device Identifier Shelf Expiration Date Model / Serial / Lot Cement Hydroset Injectable 5cc - [id number] Implanted:Qty : 1 on 03/15/2018 by Ronak Khoury MD at OR [facility] Left: Head JOHN 11/09/2019 [id number] / / [id number] 37 Needle Fiducial 22ga - [id number] Implanted:Qty : 1 on 04/01/2023 by Karson Goddard MD at ENDOSCOPY [facility] N/A: Esophagus GIVEN IMAGING [id number] 01/12/2025 DSF-22-01 / / [id number] Stent Wallf Esoph 23/[id number] - [id number] Implanted:Qty : 1 on 04/01/2023 by Karson Goddard MD at ENDOSCOPY [facility] N/A: Esophagus [employer] : ENDOSCOPY [id number] 09/09/2024 [id number] / / [id number] Power Port 8fr Sngl Lumen Plas - [id number] Implanted:Qty : 1 on 04/19/2023 by Ophelia Brown DO at OR [facility] Right: Chest CR BARD : PERIPHERAL VASCULAR [id number] 06/14/2024 [id number] / / [id number] documented as of this encounter Visit Diagnoses [...] Power of Attor yves? No Care Teams Helper Marble Finisher Relationship Specialty Start Date End Date Ophelia Solis MD [address] [place] [address] PCP - General Family Medicine 09/12/23 documented as of this encounter
--- OUTSIDE RECORDS SUMMARY | 2024-07-07 14:01 | External Medical Summary | Summary of Care ---
Author Name Unknown Organization [facility] Address [address] [place] [address] Phone [phone] Care Team Providers Care Cellophaner Name Role Phone Ophelia Solis MD Primary Care Provider Reason for Visit * Reason Comments eRx-Medication Refill Encounter Details Date Type Department Care Team (Late st Contact Info) Description 05/07/2024 Refill [facility] [address] [place] [address] Ophelia Solis MD [address] [place] [address] Allergies Active Allergy Reactions Criticality Noted Date Comments Carbamazepine Rash Medium 02/20/2018 documented as of this encounter (statuses as of 05/07/2024) Medications Medication Sig Dispensed Refills Start Date [...] at bedtime 30 Tablet 5 05/07/2024 Active Escitalopram Oxalate 10 MG Oral Tablet (Lexapro) 1/2 tab daily x 7 days then 1 tab daily at bedtime 30 Tablet 5 09/22/2023 05/07/20 24 Discontinued documented as of this encounter (statuses as of 05/07/2024) Active Problems Problem Noted Date Diagnosed Date [...] as of this encounter (statuses as of 05/07/2024) Immunizations Name Administration Dates Next Due TDAP [...] encounter Miscellaneous Notes * Telephone Encounter - Efra Bravo RP - 05/07/2024 8:28 PM EDTSigned Prescriptions: Disp Refills Escitalopram Oxalate 10 MG Oral Tablet (Le*30 Tab*5 Sig: take 1/2 tablet by mouth daily for 7 days then 1 tablet daily at bedtimeAuthorizing Provider: OPHELIA SOLIS User: EFRA BRAVO --------- documented in this encounter Plan of Treatment Upcoming Encounters Date Type Department Care Team (Late st Contact Info) Description 05/08/2024 9:45 AM EDT Imaging Radiology [address] [facility] [place] [address] 05/15/2024 9:00 AM EDT Laboratory Laboratory [facility] [address] [facility] [place] [phone] Sandra, Lab [address] [facility] [place] [address] 05/15/2024 9:15 AM EDT Immunization/Injectio n Hematology/Oncology Treatment, [place] [address] [place], [place] [phone] Sandra, Chair [address] Hem [address] [place] [address] 09/03/2024 10:30 AM EST Imaging Radiology [address] 132 [facility] [place] [address] 10/04/2024 9:15 AM EST Office Visit Hematology/Oncology [facility] [place] [address] [place] [phone] Cipriano Kuhn MD [address] [facility] [place] [place] [address] Scheduled Procedures Name Priority Associated Diagnoses Date/Ti [...] this encounter Medical Devices Implanted Type Area Canine Deputy Device Identifier Shelf Expiration Date Model / Serial / Lot Cement Hydroset Injectable 5cc - [id number] Implanted:Qty : 1 on 03/15/2018 by Ronak Khoury MD at OR [facility] Left: Head JOHN 11/09/2019 [id number] / / [id number] Needle Fiducial 22ga - [id number] Implanted:Qty : 1 on 04/01/2023 by Karson Goddard MD at ENDOSCOPY [facility] N/A: Esophagus GIVEN IMAGING [id number] 01/12/2025 DSF-22-01 / / [id number] Stent Wallf Esoph 23/[id number] - [id number] Implanted:Qty : 1 on 04/01/2023 by Karson Goddard MD at ENDOSCOPY [facility] N/A: Esophagus [employer] : ENDOSCOPY [id number] 09/09/2024 [id number] / / [id number] Power Port 8fr Sngl Lumen Plas - [id number] Implanted:Qty : 1 on 04/19/2023 by Ophelia Brown DO at OR [facility] Right: Chest CR BARD : PERIPHERAL VASCULAR [id number] 06/14/2024 [id number] / / [id number] documented as of this encounter Advance Directives [...] Power of Attor yves? No Care Teams Cellophaner Relationship Specialty Start Date End Date Ophelia Solis MD [address] [place] [facility] [place] [address] PCP - General Family Medicine 09/12/23 documented as of this encounter
--- OUTSIDE RECORDS SUMMARY | 2024-07-07 14:01 | External Medical Summary | Summary of Care ---
Author Name Unknown Organization [facility] Address [address] [place] [address] Phone [phone] Care Team Providers Care Manager Financial Name Role Phone Thaddeus Solis MD Primary Care Provider [phone] Reason for Visit * Reason Onset Date Comments Test Results Imaging Study 05/10/2024 CT Sc an Encounter Details Date Type Department Care Team (Late st Contact Info) Description 05/10/2024 Telephone Hematology/Oncology [facility] [address] [place] [phone] Cipriano Kuhn MD [address] [place] [address] Test Results Imaging Study (CT Scan) Allergies Active Allergy Reactions Criticality Noted Date Comments Carbamazepine Rash Medium 02/20/2018 documented as of this encounter (statuses as of 05/14/2024) Medications Medication Sig Dispensed Refills Start Date [...] as of this encounter (statuses as of 05/14/2024) Active Problems Problem Noted Date Diagnosed Date [...] as of this encounter (statuses as of 05/14/2024) Immunizations Name Administration Dates Next Due TDAP [...] Telephone Encounter - Linda Gaytan LPN - 05/14/2024 11:58 AM EDT Called and spoke with patient, informed patient of test result note from Dr. Kuhn below. Patient verbalized understanding and denies any questions or needs at this time. * Telephone Encounter - Linda Gaytan LPN [...] Description 05/15/2024 9:00 AM EDT Laboratory Laboratory [facility] [place] 200 [facility] [place] [phone] Sandra, Lab [address] [place] [address] 05/15/2024 9:15 AM EDT Immunization/Injectio n Hematology/Oncology Treatment, [place] [address] [place] [phone] Sandra, Chair 8 Hem Onc [facility] 200 [facility] [place] [address] 09/03/2024 10:30 AM EST Imaging Radiology [facility] [place] 132 [facility] [address] 10/04/2024 9:15 AM EST Office Visit Hematology/Oncology [facility] [place] [address] [place] [phone] Cipriano Kuhn MD [address] [place] [address] Scheduled Procedures Name Priority Associated Diagnoses Date/Ti [...] encounter Medical Devices Implanted Type Area Clean Up Helper Banquet Device Identifier Shelf Expiration Date Model / Serial / Lot Cement Hydroset Injectable 5cc - [id number] Implanted:Qty : 1 on 03/15/2018 by Ronak Khoury MD at OR [facility] Left: Head JOHN 11/09/2019 [id number] / / [id number] Needle Fiducial 22ga - [id number] Implanted:Qty : 1 on 04/01/2023 by Karson Goddard MD at ENDOSCOPY [facility] N/A: Esophagus GIVEN IMAGING [id number] 01/12/2025 DSF-22-01 / / [id number] Stent Wallf Esoph 23/[id number] - [id number] Implanted:Qty : 1 on 04/01/2023 by Karson Goddard MD at ENDOSCOPY [facility] N/A: Esophagus [employer] : ENDOSCOPY [id number] 09/09/2024 [id number] / / [id number] Power Port 8fr Sngl Lumen Plas - [id number] Implanted:Qty : 1 on 04/19/2023 by Thaddeus Brown, DO at OR [facility] Right: Chest CR BARD : PERIPHERAL VASCULAR [id number] 06/14/2024 [id number] / / [id number] documented as of this encounter Advance Directives [...] of Attor yves? No Care Teams Manager Financial Relationship Specialty Start Date End Date Thaddeus Solis MD [address] [place] [address] PCP - General Family Medicine 09/12/23 documented as of this encounter
--- OUTSIDE RECORDS SUMMARY | 2024-07-07 14:01 | External Medical Summary ---
Author Name Unknown Address Unknown Organization K01:[facility] - [address] [facility] [place]. [facility] [address] Laboratory Report Ordering Provider Test Date Status JUSTINA QUIÑONEZ 05/15/2024 08:48:41 Final Observation Date Value Abnormality Reference (Units ) Status Iron 05/15/2024 08:48:41 94 45-176 (ug /dL) Final Iron-binding capacity 05/15/2024 08:48:41 314 250-425 (ug/dL) Final Transferrin Sat % 05/15/2024 08:48:41 30 15 -55 (%) Final Performing Location [facility] - [address] [facility] [address]
--- OUTSIDE RECORDS SUMMARY | 2024-07-07 14:01 | External Medical Summary ---
Author Name Unknown Address Unknown Organization K09:[facility] - [address] [place] [address] Laboratory Report Ordering Provider Test Date Status JUSTINA QUIÑONEZ 05/15/2024 08:48:41 Final Observation Date Value Abnormality Reference (Units ) Status BUN 05/15/2024 08:48:41 13 6-20 (mg/dL) Final Creatinine 05/15/2024 08:48:41 0.8 0.6-1.2 (mg/dL) Final Glomerular filtration rate/1.73 sq M.predicted [Volume Rate/Area] in Serum, Plasma or Blood by Creatinine-based formula (CKD-EPI) 05/15/2024 08:48:41 >90 >=60 (mL/min) Final eGFR is calculated based on the CKD-EPI 2020 equation. Sodium 05/15/2024 08:48:41 138 135-146 (m mol/L) Final Potassium 05/15/2024 08:48:41 4.4 3.5-5.1 (m mol/L) Final Cl 05/15/2024 08:48:41 104 98-107 (mm ol/L) Final CO2 05/15/2024 08:48:41 24 22-32 (mmo l/L) Final Anion gap 05/15/2024 08:48:41 10 7-15 (mmol /L) Final Glucose 05/15/2024 08:48:41 144 Above high normal 70 -120 (mg/dL) Final Albumin 05/15/2024 08:48:41 4.3 3.8-5.0 (g /dL) Final AST (Aspartate aminotransferase) 05/15/2024 08:48:41 45 10-50 (U/L) Fin al Alk Phos 05/15/2024 08:48:41 99 35-130 (U/ L) Final Bilirubin, Total 05/15/2024 08:48:41 0.5 <=1 .2 (mg/dL) Final Calcium 05/15/2024 08:48:41 9.2 8.4-10.2 ( mg/dL) Final Protein 05/15/2024 08:48:41 6.5 6.0-8.3 (g /dL) Final ALT (Alanine aminotransferase) 05/15/2024 08:48:41 49 10-50 (U/L) Donn miller Performing Location [facility] [place] [address]
--- OUTSIDE RECORDS SUMMARY | 2024-07-07 14:01 | External Medical Summary | Summary of Care ---
Author Name Unknown Organization [facility] Address [address] [place] [address] Phone [phone] Care Team Providers Care Commercial Center Manager Name Role Phone Ophelia Solis MD Primary Care Provider [phone] Reason for Visit * Reason Comments eRx-Medication Refill Encounter Details Date Type Department Care Team (Late st Contact Info) Description 04/19/2024 Refill [facility] [address] [place] [address] Ophelia Solis MD [address] [place] [address] Allergies Active Allergy Reactions Criticality Noted Date Comments Carbamazepine Rash Medium 02/20/2018 documented as of this encounter (statuses as of 04/20/2024) Medications Medication Sig Dispensed Refills Start Date [...] as of this encounter (statuses as of 04/20/2024) Active Problems Problem Noted Date Diagnosed Date [...] as of this encounter (statuses as of 04/20/2024) Immunizations Name Administration Dates Next Due TDAP [...] Telephone Encounter - Ophelia Solis MD - 04/20/2024 2:09 PM EDTSigned Prescriptions: Disp Refills Promethazine HCl 25 MG Oral Tablet (Phener*20 Tab*1 Sig: TAKE 1 TABLET BY MOUTH THREE TIMES DAILY NEEDED for vomitingAuthorizing Provider: OPHELIA SOLIS--------- * Telephone Encounter - Lisbeth Diego LPN - 04/20/2024 2:06 PM EDTPending Prescriptions: Disp Refills Promethazine HCl 25 MG Oral Tablet [Pharma*10 Tab*0 Sig: TAKE 1 TABLET BY MOUTH THREE TIMES DAILY NEEDED for vomiting * Telephone Encounter - Jyothi eNff - 04/19/2024 7:27 PM EDTPending Prescriptions: Disp Refills Promethazine HCl 25 MG Oral Tablet [Pharma*10 Tab*0 Sig: TAKE 1TABLET BY MOUTH THREE TIMES DAILY NEEDED for vomiting documented in this encounter Plan of Treatment Upcoming Encounters Date Type Department Care Team (Late st Contact Info) Description 04/26/2024 9:20 AM EDT Office Visit Gastroenterology, [facility] [address] [place] [address] Georgi Long MD 132 [place] [address] 05/09/2024 9:30 AM EDT Office Visit Palliative Medicine [facility] 200 [place] [address] Sonia Schumacher MD [address] [place], [place] [address] [address] 05/15/2024 9:00 AM EDT Laboratory Laboratory [facility] [place] [address] [place] [phone] Park, Lab [address] [facility] [place] [address] 05/15/2024 9:15 AM EDT Immunization/Injecti on Hematology/Oncology Treatment, [place] [address] [place] [phone] Sandra, Chair 8 Hem Onc [facility] 200 [facility] [place] [address] 09/03/2024 10:30 AM EST Imaging Radiology [address], [place] 132 [facility] [place] [address] 10/04/2024 9:15 AM EST Office Visit Hematology/Oncology [facility] [place] [address] [place] [phone] Cipriano Kuhn MD [address] [place] [address] Scheduled Procedures Name Priority Associated Diagnoses Date/Ti me COLONOSCOPY FLEXIBLE PROXIMAL DIAGNOSTIC Recall History of colonic polyps ESOPHAGOGASTRODUODENOSCOPY ( EGD), FLEXIBLE, TRANSORAL, DIAGNOSTIC Recall Malignant neoplasm of esophagus, unspecified location (HCC) Health Maintenance Due Date Last Done Comments Cologuard 2009 Fecal Occult Blood Test 2009 Sigmoidoscopy 2009 Depression Screening 12/21/2018 12/21/2017 Lipid Panel 04/19/2019 04/19/2014 COVID-19 Vaccine (3 - 2022-2 4 season) 2024 04/10/2021, 03/19/2021 Influenza Vaccine (FLU [...] this encounter Medical Devices Implanted Type Area Hand Candle Dipper Device Identifier Shelf Expiration Date Model / Serial / Lot Cement Hydroset Injectable 5cc - [id number] Implanted:Qty : 1 on 03/15/2018 by Ronak Khoury [place] [facility] [place]: Head JOHN 11/09/2019 [id number] / / [id number] Needle Fiducial 22ga - [id number] Implanted:Qty : 1 on 04/01/2023 by Karson Goddard MD [place] [facility] [place]/A: Esophagus GIVEN IMAGING [id number] 01/12/2025 DSF-22-01 / / [id number] Stent Wallf Esoph 23/[id number] - [id number] Implanted:Qty : 1 on 04/01/2023 by Karson Goddard MD at [place] [facility] N/A: Esophagus [employer] : ENDOSCOPY [id number] 09/09/2024 [id number] / / [id number] Power Port 8fr Sngl Lumen Plas - [id number] Implanted:Qty : 1 on 04/19/2023 by Ophelia Brown DO at OR [facility] Right: Chest CR BARD : PERIPHERAL VASCULAR [id number] 06/14/2024 [id number] / / [id number] documented as of this encounter Advance Directives [...] Power of Attor yves? No Care Teams Commercial Center Manager Relationship Specialty Start Date End Date Ophelia Solis MD [address] [facility] [place] [address] PCP - General Family Medicine 09/12/23 documented as of this encounter
--- OUTSIDE RECORDS SUMMARY | 2024-07-07 14:01 | External Medical Summary ---
Author Name Unknown Address Unknown Organization K09:[facility] [place] [address] Laboratory Report Ordering Provider Test Date Status JUSTINA QUIÑONEZ 05/15/2024 08:48:41 Final Observation Date Value Abnormality Reference (Units ) Status WBC, Total 05/15/2024 08:48:41 4.12 4.00-10.8 0 (K/uL) Final RBC 05/15/2024 08:48:41 4.10 4.50-5.25 (M/uL) Final Hemoglobin 05/15/2024 08:48:41 12.3 Below low normal 14 .0-16.8 (g/dL) Final HCT 05/15/2024 08:48:41 37.1 Below low normal 40. 0-48.4 (%) Final MCV 05/15/2024 08:48:41 90.5 82.0-99.5 (fL) Final MCH 05/15/2024 08:48:41 30.0 27.0-34.0 (pg) Final MCHC 05/15/2024 08:48:41 33.2 32.0-36.0 (g/dL) Final RDW 05/15/2024 08:48:41 15.6 11.5-15.5 (%) Final Platelets 05/15/2024 08:48:41 200 140-400 (K /uL) Final MPV 05/15/2024 08:48:41 9.8 6.6-11.1 ( fL) Final Performing Location [facility] [address]
--- OUTSIDE RECORDS SUMMARY | 2024-07-07 14:02 | External Medical Summary | Summary of Care ---
Author Name Unknown Organization [facility] Address [address] [place] [address] Phone [phone] Care Team Providers Care Registered Associate Name Role Phone Thaddeus Solis MD Primary Care Provider [phone] Reason for Visit * Reason Onset Date Comments Palliative Care Follow-up 04/20/2024 Encounter Details Date Type Department Care Team (Late st Contact Info) Description 04/20/2024 Telephone Palliative Medicine, [address] 5[address] [place] [address] Sonia Schumacher MD [address] [place] [address] Palliative Care Follow-up Allergies Active Allergy Reactions Criticality Noted Date [...] for Pain, Moderate. 30 mL 04/12/2024 Active documented as of this encounter (statuses [...] encounter Miscellaneous Notes * Telephone Encounter - Yeimi Mccloud LPN - 04/20/2024 9:37 AM EDT Patient scheduled for new patient at [facility] on 05/09 As of now, we have a new patient opening at [facility] on 04/25 Call to offer patient that spot No answer Left message requesting return call to [phone] documented in this encounter Plan of Treatment Upcoming Encounters Date Type Department Care Team (Late st Contact Info) Description 04/26/2024 9:20 AM EDT Office Visit Gastroenterology, [facility] 132 [facility] [place] [address] Georgi Long MD 132 [facility] [place] [address] 05/09/2024 9:30 AM EDT Office Visit Palliative Medicine [address] [phone] Sonia Schumacher MD [address] [place] [address] 05/15/2024 9:00 AM EDT Laboratory Laboratory [address] [place] [phone] Sandra, Lab [address] [place], [place] [address] 05/15/2024 9:15 AM EDT Immunization/Injecti on Hematology/Oncology Treatment, [address], [place] [phone] Sandra, Chair 8 Hem Onc [address] [place], [place] [address] 09/03/2024 10:30 AM EST Imaging Radiology [facility] 1st [facility] 132 [facility] [place] [address] 10/04/2024 9:15 AM EST Office Visit Hematology/Oncology [address] [place], [place] [phone] Cipriano Kuhn MD 200 [facility] [place] [address] Scheduled Procedures Name Priority Associated Diagnoses Date/Ti [...] encounter Medical Devices Implanted Type Area Senior Business Broker Device Identifier Shelf Expiration Date Model / Serial / Lot Cement Hydroset Injectable 5cc - [id number] Implanted:Qty : 1 on 03/15/2018 by Ronak Khoury MD at [place] [facility] Left: Head JOHN 11/09/2019 [id number] / / [id number] Needle Fiducial 22ga - [id number] Implanted:Qty : 1 on 04/01/2023 by Karson Goddard MD at ENDOSCOPY [facility] N/A: Esophagus GIVEN IMAGING [id number] 01/12/2025 DSF-22-01 / / [id number] Stent Wallf Esoph 23/[id number] - [id number] Implanted:Qty : 1 on 04/01/2023 by Karson Goddard MD at ENDOSCOPY [facility] N/A: Esophagus [employer] : ENDOSCOPY [id number] 09/09/2024 [id number] / / [id number] Power Port 8fr Sngl Lumen Plas - [id number] Implanted:Qty : 1 on 04/19/2023 by Thaddeus Brown, DO at OR [facility] Right: Chest CR BARD : PERIPHERAL VASCULAR [id number] 06/14/2024 [id number] / / [id number] documented as of this encounter Advance Directives [...] Power of Attor yves? No Care Teams Registered Associate Relationship Specialty Start Date End Date Thaddeus Solis MD [address] [facility] [place] [address] PCP - General Family Medicine 09/12/23 documented as of this encounter
[2024-07-07] MEDS ORDERED: CYANOCOBALAMIN (B-12) 500 MCG TABLET PO SCH (15:30)
== END 2024-07-07 13:08 | disposition home or self-care (01) ==
LOC: ED 13:34 → 3E 13:34 → SUATTDRO 16:12 → 3E 19:35

== ENCOUNTER 2024-08-06 08:49 | Observation (INO) ==
[2024-08-06] MEDS: ONDANSETRON INJ 2 MG/ML 2 ML VIAL IV STA (09:26)
[2024-08-06] MEDS: SODIUM CHLORIDE 0.9% 1,000 ML IV ONE (09:26)
[2024-08-06 09:37] LABS: Basophils # (auto) 0.02 K/uL (0.00-0.20); Basophils % (auto) 0.3 %; Eosinophils # (auto) 0.01 K/uL (0.00-0.50); Eosinophils % (auto) 0.2 %; Hematocrit (blood only) 38.2 % (42.0-52.0); Immature Granulocytes # (auto) 0.01 K/uL (0.01-0.20); Immature Granulocytes % (auto) 0.2 %; Lymphocytes # (auto) 0.84 K/uL (1.20-3.40); Lymphocytes % (auto) 13.2 %; Mean Corpuscular Hemoglobin 29.2 pg (25.0-34.0); Mean Corpuscular Volume 85.8 fL (80.0-100.0); Monocytes # (auto) 0.53 K/uL (0.11-0.59); Monocytes % (auto) 8.3 %; Neutrophils # (auto) 4.97 K/uL (1.40-6.50); Neutrophils % (auto) 77.8 %; Platelet Count 187 K/uL (130-400); RDW Coefficient of Variation 14.9 % (11.5-14.5); RDW Standard Deviation 46.9 fL (36.4-46.3); Red Blood Count 4.45 M/uL (4.70-6.10); White Blood Count 6.38 K/ul (4.8-10.8)
--- NOTE | 2024-08-06 09:41 | Emergency Department Note ---
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 Patient has a history of the same. He had IV established. He was hydrated. He was given IV Zofran. He notes that he has had poor results with other antibiotics but emend has worked well for him. This was done successfully on last visit. Patient was given a dose. And this did help quite a bit. Patient and significant other were concerned about being discharged and did request hospitalist consult for admission. I did consult with the [facility] hospitalist service. He was evaluated in the ER and admitted for further management. Care/management discussed with: agricultural labor camp manager Level of care consideration(s): After review of the information above and other included data, I feel the patient requires escalation of care to admission Triage Nursing notes: reviewed and agree them. Vital Signs: reviewed and remarkable for no significant abnormalities Additional History obtained from: Significant other regarding patient's prior history and treatment at home. Chronic Medical/Social Conditions affecting care: Gastrectomy Prior/ Outside/ External records reviewed: none Differential Diagnosis: Etiologies such as complication of gastrectomy, obstruction, enteritis, food borne illness, infections, appendicitis, diverticulitis, inflammatory bowel disease, GI bleed, biliary pathology, as well as others were entertained. Diagnostics, independently interpreted by me: ECG: none Cardiac Monitoring: Cardiac monitoring ordered by me: The patient was placed on continuous cardiac monitoring and observed. It revealed a normal sinus rhythm at 79 beats per minute without ectopy or evidence of dysrhythmia. Medical decision rules: none Imaging studies: Chest x-ray and KUB were negative for acute process. Specifically no free air or obstruction. HPI: 59 year old Male arrives for evaluation of nausea and vomiting. This started again last night and is a recurrent problem for the patient. He has a history of esophagectomy and gastrectomy secondary to cancer. He has had similar episodes before with the last 1 around a month ago requiring admission. The patient also notes the following associated symptoms, feeling cold and poor appetite. The patient has tried his Ativan, morphine for relieving factors. Current pain is rated as 0/10. Patient did have some discomfort earlier from vomiting. Pt denies LOC, headache, fevers, chills, diaphoresis, visual changes, neck pain, chest pain, breathing difficulties, current abdominal pain, back pain, melena, hematochezia, urinary symptoms, numbness, focal weakness, lymphadenopathy, rash, or other complaints.. PAST MEDICAL HISTORY: See Below, intractable nausea and vomiting PAST SURGICAL HISTORY: See Below, gastrectomy SOCIAL HISTORY: See Below, smoker, alcohol HOME MEDICATIONS: See Below ALLERGIES: See Below VITALS: See Below PHYSICAL EXAMINATION: GENERAL: Awake, nauseated appearing, in no distress HENT: Normocephalic, atraumatic. Oropharynx unremarkable. EYES: Normal conjunctiva. Sclera non-icteric. NECK: Inspection normal. Non-tender. Supple. No nuchal rigidity. FROM. No masses. RESPIRATORY: Clear to auscultation. No wheezes. No rales. Normal respiratory effort. CARDIAC: Borderline bradycardic rate. Normal rhythm. No murmurs. No rubs. Extremities warm and well perfused. Pulses equal. No JVD. GI: Soft, non-distended. No tenderness to palpation. No rebound or guarding. No masses. RECTAL: Deferred. MUSCULOSKELETAL: Cachectic, atraumatic. Chest examination reveals no tenderness. The back is symmetrical on inspection without obvious abnormality. There is no CVA tenderness to palpation. No joint edema. LOWER EXTREMITIES: Calves are equal size bilaterally and non-tender. No edema. No discoloration. NEURO: Normal sensorium. No sensory or motor deficits noted. SKIN: No rash or jaundice noted. 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 [place] History of recent blood transfusion 05/02/23 @ [facility] Enteropathogenic Escherichia coli infection Hyponatremia Trigeminal neuralgia Hypomagnesemia Vomiting and diarrhea Iron deficiency received blood transfusion 05/02/23 @ [facility] Surgical History History of colonoscopy History of esophagogastroduodenoscopy (EGD) History of tooth extraction partial upper and lower denture History of [place] [facility] [place] History of vascular access device A port--power port in placed on right side of chest Family History Father Stroke Social History Smoking Status: Former smoker Tobacco Type: Cigarettes Second Hand Exposure: No; Do You Dip or Chew Tobacco: No; Tobacco Cessation Education Requested by Patient: No Hx Alcohol Use: Yes Alcohol type: beer Hx Substance Use: Yes Last Used Substance: Days (ago) Preferred Language: Dutch Communication Ability: Effective Drum Saw Operator Required: No Beliefs That Will Affect Care: None marital status: Current Living Situation: Spouse Other Information That Helps Us Care for You: No Feels Safe at Home: Yes Safety Concerns: Feels Safe At This Time Assistive Devices: Denture - Upper and Denture - Lower Assistive Devices Comment: Partial plates Allergies Allergies Allergy/AdvReac Type Severity Reaction Status Date / Time carbamazepine [From Tegretol] Allergy Mild Rash Verified 02/13/24 11:18 Home Meds Home Medications Medication Instructions Recorded Confirmed escitalopram oxalate 10 mg tablet 10 mg PO QAM 12/22/23 08/06/24 olanzapine 5 mg tablet (Zyprexa) 5 mg PO HS 12/22/23 08/06/24 pantoprazole 40 mg tablet,delayed 40 mg PO QAM Heartburn 12/22/23 08/06/24 release cholecalciferol (vitamin D3) 50 50 mcg PO DAILY 02/13/24 08/06/24 mcg (2,000 unit) tablet (Vitamin D3) cyanocobalamin (vitamin B-12) 500 500 mcg PO DAILYBD 02/13/24 08/06/24 mcg tablet (Vitamin B-12) aprepitant 80 mg capsule 80 mg PO DIRECTED PRN n/v 04/13/24 08/06/24 folic acid 1 mg tablet 1 mg PO .DAILY @ LUNCH 04/13/24 08/06/24 lorazepam 0.5 mg tablet 0.5 mg PO DIRECTED PRN Other 04/13/24 08/06/24 morphine concentrate 100 mg/5 mL See Rx Instructions .Route 04/13/24 08/06/24 (20 mg/mL) oral solution .COMPLEX PRN Pain prochlorperazine maleate 10 mg 10 mg PO DIRECTED PRN n/v 04/13/24 08/06/24 tablet Results & Data (ED) Vital Signs Vital Signs - 24 hr 08/06/24 08:54 08/06/24 09:10 08/06/24 09:12 Temperature 36.1 C L Temperature Source Temporal Artery Scan Pulse Rate 66 75 55 L Pulse Rate [Left Finger] Pulse Rate from SpO2 Sensor 55 L Pulse Rhythm Regular Respiratory Rate 20 20 15 Respiratory Effort / Characteristics Non-Labored Spontaneous Respiratory Depth Normal Respiratory Pattern Regular Blood Pressure 154/97 H 142/92 H Blood Pressure [Left Arm] Blood Pressure Mean 116 108 Blood Pressure Mean [Left Arm] Pulse Oximetry 99 94 100 Oxygen Delivery Method Room Air Room Air Room Air Sepsis Recent Fever Within 48 Hours No Sepsis New/Unexplained Change in Mental Status N/A Sepsis Action Taken by Nursing No Action Required 08/06/24 09:30 08/06/24 10:00 08/06/24 10:30 Temperature Temperature Source Pulse Rate 53 L 59 L 62 Pulse Rate [Left Finger] Pulse Rate from SpO2 Sensor 59 L 62 Pulse Rhythm Respiratory Rate 14 18 Respiratory Effort / Characteristics Respiratory Depth Respiratory Pattern Blood Pressure 164/93 H 144/92 H Blood Pressure [Left Arm] Blood Pressure Mean 110 105 Blood Pressure Mean [Left Arm] Pulse Oximetry 96 99 Oxygen Delivery Method Room Air Room Air Sepsis Recent Fever Within 48 Hours Sepsis New/Unexplained Change in Mental Status Sepsis Action Taken by Nursing 08/06/24 11:03 08/06/24 11:30 08/06/24 11:43 Temperature Temperature Source Pulse Rate 48 L 53 L Pulse Rate [Left Finger] 58 L Pulse Rate from SpO2 Sensor 48 L 53 L Pulse Rhythm Respiratory Rate 13 19 20 Respiratory Effort / Characteristics Non-Labored Spontaneous Respiratory Depth Normal Respiratory Pattern Regular Blood Pressure 121/68 98/66 L Blood Pressure [Left Arm] 109/67 Blood Pressure Mean 85 75 Blood Pressure Mean [Left Arm] 81 Pulse Oximetry 100 99 98 Oxygen Delivery Method Room Air Room Air Room Air Sepsis Recent Fever Within 48 Hours Sepsis New/Unexplained Change in Mental Status Sepsis Action Taken by Nursing 08/06/24 12:00 Temperature Temperature Source Pulse Rate 52 L Pulse Rate [Left Finger] Pulse Rate from SpO2 Sensor 52 L Pulse Rhythm Respiratory Rate 14 Respiratory Effort / Characteristics Respiratory Depth Respiratory Pattern Blood Pressure 109/67 Blood Pressure [Left Arm] Blood Pressure Mean 81 Blood Pressure Mean [Left Arm] Pulse Oximetry 97 Oxygen Delivery Method Room Air Sepsis Recent Fever Within 48 Hours Sepsis New/Unexplained Change in Mental Status Sepsis Action Taken by Nursing Laboratory Data 08/06/24 09:20 08/06/24 09:20 Lab Results 08/06/24 08/06/24 Range/Units 09:20 12:00 WBC 6.38 (4.8-10.8) K/ul RBC 4.45 L (4.70-6.10) M/uL Hgb 13.0 L (14.0-18.0) g/dl Hct 38.2 L (42.0-52.0) % MCV 85.8 (80.0-100.0) fL MCH 29.2 (25.0-34.0) pg MCHC 34.0 (32.0-36.0) g/dL RDW Std Deviation 46.9 H (36.4-46.3) fL RDW Coeff of Stone 14.9 H (11.5-14.5) % Plt Count 187 (130-400) K/uL MPV 10.0 (9.4-12.4) fL Immature Gran % (Auto) 0.2 % Neut % (Auto) 77.8 % Lymph % (Auto) 13.2 % [place] % (Auto) 8.3 % Eos % (Auto) 0.2 % Baso % (Auto) 0.3 % Neut # (Auto) 4.97 (1.40-6.50) K/uL Lymph # (Auto) 0.84 L (1.20-3.40) K/uL [place] # (Auto) 0.53 (0.11-0.59) K/uL Eos # (Auto) 0.01 (0.00-0.50) K/uL Baso # (Auto) 0.02 (0.00-0.20) K/uL Immature Gran # (Auto) 0.01 (0.01-0.20) K/uL Sodium 140 (136-145) mmol/L Potassium 4.0 (3.5-5.1) mmol/L Chloride 106 (98-107) mmol/L Carbon Dioxide 25 (21-32) mmol/L Anion Gap 9 (3-11) BUN 9 (6-23) mg/dl Creatinine 0.64 (0.6-1.4) mg/dl Est Cr Clr Drug Dosing Not Reportable eGFR 108.38 BUN/Creatinine Ratio 14.1 (10-20) Glucose 127 H (70-99(Fasting)) mg/dl Calcium 9.2 (8.6-10.3) mg/dl Magnesium 1.9 (1.7-2.4) mg/dl Total Bilirubin 0.7 (0.2-1.0) mg/dl AST 27 (13-39) U/L ALT 18 (7-52) U/L Alkaline Phosphatase 56 (34-104) U/L Total Protein 6.6 (6.0-8.3) gm/dl Albumin 4.2 (3.4-5.0) gm/dl Globulin 2.4 L (2.5-4.0) gm/dl Albumin/Globulin Ratio 1.8 (0.9-2) Lipase 26 (11-82) U/L Urine Color Yellow Urine Appearance Clear (Clear) Urine pH 6.0 (4.5-7.5) Ur Specific [place] 1.016 (1.000-1.030) Urine Protein Negative (Negative) Urine Glucose (UA) Negative (Negative) Urine Ketones Trace H (Negative) Urine Blood Negative (Negative) Urine Nitrite Negative (Negative) Urine Bilirubin Negative (Negative) Urine Urobilinogen Negative (Negative) Ur Leukocyte Esterase Negative (Negative) Administered Medications Folic Acid (Folic Acid 1 Mg Tab) 1 mg PO QDL GREG Stop: 09/05/24 14:59 Last Admin: 08/06/24 15:33 Dose: 1 mg Documented By: AAH Dextrose/Sodium Chloride (D5w And Nss) 1,000 mls @ 80 mls/hr IV .[id number] GREG Stop: 08/07/24 11:44 Last Admin: 08/06/24 11:45 Dose: 80 mls/hr Documented By: NRB Discontinued Medications Sodium Chloride (Nss) 1,000 mls @ 999 mls/hr IV .[id number] ONE Stop: 08/06/24 10:03 Last Infusion: 08/06/24 10:10 Dose: Infused Documented By: Admin: 08/06/24 09:26 Dose: 999 mls/hr Documented By: FLORECITA Fosaprepitant 150 mg/ Sodium (Chloride) 145 mls @ 300 mls/hr IV ONE ONE Stop: 08/06/24 09:57 Last Infusion: 08/06/24 11:00 Dose: Infused Documented By: Admin: 08/06/24 10:28 Dose: 300 mls/hr Documented By: FRANCY Ondansetron HCl (Ondansetron Inj 2 Mg/Ml 2 Ml Vial) 4 mg IV NOW STA Stop: 08/06/24 09:04 Last Admin: 08/06/24 09:26 Dose: 4 mg Documented By: FLORECITA Imaging Data Radiologist's Impression: Chest X-Ray 08/06/24 09:30 XR chest 1V portable CLINICAL HISTORY: vomiting COMPARISON STUDY: Chest radiograph July 06, 2024. FINDINGS: Right internal jugular [id number]-[id number] remains in place. Lung volumes are normal. Lungs are clear. There is no pneumothorax or pleural effusion. Cardiac size is normal. Mediastinal contours are normal. There is no evidence for pulmonary edema. Old right eighth rib fracture is incidentally noted. IMPRESSION: No acute cardiopulmonary findings. No change in appearance of the chest. ACT 112: Negative or not required by law. Electronically signed by: Mele Umanzor M.D. 08/06/2024 10:12 AM KUB X-Ray 08/06/24 09:30 XR KUB/Abdomen 1 view CLINICAL HISTORY: vomiting TECHNIQUE: 1 view of the abdomen was obtained. Comparison: Comparison is made to abdomen radiograph 07/06/2024 FINDINGS: Lung bases are unremarkable. Degenerative changes are seen in the visualized skeleton. The bowel gas pattern is nonobstructive. Small stool burden is seen. IMPRESSION: Nonobstructive bowel gas pattern. ACT 112: Negative or not required by law. Electronically signed by: Zeb Whitman M.D. 08/06/2024 10:05 AM Discharge Plan Visit Data Chief Complaint: Vomiting Stated Complaint: DEHYDRATED, THROWING UP ED Provider: Rolo Laguerre Discharge Problem: Intractable nausea and vomiting Patient Disposition: Admitted As Inpatient Discharge Instructions Interventions: ED Discharge Assessment Last Done: 08/06/24 14:33
[2024-08-06 09:50] LABS: Alanine Aminotransferase 18 U/L (7-52); Albumin Globulin Ratio 1.8 (0.9-2); Albumin Level 4.2 gm/dl (3.4-5.0); Alkaline Phosphatase 56 U/L (34-104); Anion Gap 9 (3-11); Aspartate Aminotransferase 27 U/L (13-39); BUN Creatinine Ratio 14.1 (10-20); Bilirubin,Total 0.7 mg/dl (0.2-1.0); Blood Urea Nitrogen 9 mg/dl (6-23); Calcium 9.2 mg/dl (8.6-10.3); Carbon Dioxide 25 mmol/L (21-32); Chloride 106 mmol/L (98-107); Globulin 2.4 gm/dl (2.5-4.0); Glucose 127 mg/dl (70-99(Fasting)); Lipase 26 U/L (11-82); Sodium 140 mmol/L (136-145); Total Protein 6.6 gm/dl (6.0-8.3)
--- NOTE | 2024-08-06 10:06 | XRay Report ---
XR KUB/Abdomen 1 view CLINICAL HISTORY: vomiting TECHNIQUE: 1 view of the abdomen was obtained. Comparison: Comparison is made to abdomen radiograph 07/06/2024 FINDINGS: Lung bases are unremarkable. Degenerative changes are seen in the visualized skeleton. The bowel gas pattern is nonobstructive. Small stool burden is seen. IMPRESSION: Nonobstructive bowel gas pattern. ACT 112: Negative or not required by law. Electronically signed by: Zeb Whitman M.D. 08/06/2024 10:05 AM
[2024-08-06 10:13] LABS: Magnesium 1.9 mg/dl (1.7-2.4)
--- NOTE | 2024-08-06 10:13 | XRay Report ---
XR chest 1V portable CLINICAL HISTORY: vomiting COMPARISON STUDY: Chest radiograph July 06, 2024. FINDINGS: Right internal jugular [id number]-Wkcs remains in place. Lung volumes are normal. Lungs are c lear. There is no pneumothorax or pleural effusion. Cardiac size is normal. Mediastinal contours are normal. There is no evidence for pulmonary edema. Old right eighth rib fracture is incidentally noted . IMPRESSION: No acute cardiopulmonary findings. No change in appearance of the chest. ACT 112: Negative or not required by law. Electronically signed by: Mele Umanzor M.D. 08/06/2024 10:12 AM
--- OUTSIDE RECORDS SUMMARY | 2024-08-06 10:21 | External Medical Summary | Summary of Care ---
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 Follow up with your primary care provider for further management. 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 10 Patch 12 10/03/19 24 Active Pantoprazole Sodium 20 MG Oral Tablet [...] mouth in the morning. 30 Tablet 5 11/02/19 24 Active Magnesium 100 MG Oral Tablet Take 1 Tablet by mouth in the morning. Active Folic Acid 1 MG Oral TabletIndicatio ns:Folic acid deficiency (non anemic) Take 1 Tablet by mouth in the morning. 30 Tablet 11 02/23/20 24 Active Multivitamin Adult Oral Tablet ChewableIndicat ions:Severe malnutrition (HCC) Take 1 Tablet by mouth daily. 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 30 Tablet 2 04/12/20 24 Active Aprepitant 80 MG Oral Capsule (Emend) Take 1 Capsule by mouth daily as needed for Nausea. 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) TAKE ONE TABLET BY MOUTH EVERY 6 HOURS NEEDED FOR ANXIETY OR SLEEP 30 Tablet 07/20/20 24 Active LORazepam 0.5 MG Oral Tablet (Ativan)Indicat ions: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) TAKE ONE TABLET BY MOUTH EVERY 6 HOURS NEEDED FOR ANXIETY OR SLEEP 30 Tablet 06/04/20 24 024 Discontinued documented as of this encounter (statuses as of 07/27/2024) Active Problems Problem Noted Date Diagnosed Date [...] as of this encounter (statuses as of 07/27/2024) Immunizations Name Administration Dates Next Due TDAP [...] 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 (5 years old or older) Answer Entry Date Author No 09/26/2023 10:09 PM EST Kailee Flower RN documented in this encounter Miscellaneous Notes * Telephone Encounter - Ophelia Solis MD - 07/20/2024 9:24 AM ESTSigned Prescriptions: Disp Refills LORazepam 0.5 MG Oral Tablet (Ativan) 30 Tab*0 Sig: TAKE ONE TABLET BY MOUTH EVERY 6 HOURS NEEDED FOR ANXIETY OR SLEEP Authorizing Provider: OPHELIA SOLIS * Telephone Encounter - Pema De La Fuente formerly [facility] - 07/20/2024 7:49 AM EST Pending Prescriptions: Disp Refills LORazepam 0.5 MG Oral Tablet (Ativan) 30 Tab*0 Sig: TAKE ONE TABLET BY MOUTH EVERY 6 HOURS NEEDED FOR ANXIETY OR SLEEP * Telephone Encounter - Pema De La Fuente formerly [facility] - 07/20/2024 7:48 AM EST I have reviewed the patients controlled substance dispensing history in the Prescription Drug Monitoring Program in compliance with the [facility] regulations before prescribing a controlled substance. PDMP checked on 07/20/2024. Pending Prescriptions: Disp Refills LORazepam 0.5 MG Oral Tablet (Ativan) [Ph*30 Tab*0 Sig: TAKE ONE TABLET BY MOUTH EVERY 6 HOURS NEEDED FOR ANXIETY OR SLEEP Last Visit: 02/23/24 Next Visit: Visit date not found Date medication was last filled: 06/05 Date medication is due for refill: 06/13 Pharmacy: [id number] [facility] Is this request for a controlled substance? Yes and Urine Drug Screen Not completed Toxicology results: No results found for this or any previous visit. Please approve if appropriate. Thank you, Pema De La Fuente, PharmD. Clinical Pharmacist [facility] ([facility]) 07/20/2024, 7:48 AM documented in this encounter Plan of Treatment Upcoming Encounters Date Type Department Care Team (Late st Contact Info) Description 08/14/2024 10:00 AM EST Nurse Only Hematology/Oncology Treatment, [place] [address] [place] [address] Sandra, Chair 8 Hem Onc [address] [place] [address] 09/03/2024 10:30 AM EST Imaging Radiology [facility] [address] [facility], [place] [address] [place] [address] 10/04/2024 9:30 AM EST Office Visit Hematology/Oncology [facility] [address] [facility] [place] [id number] Cipriano Kuhn MD [address] [place] [address] Scheduled Procedures Name Priority Associated Diagnoses Date/Ti [...] this encounter Medical Devices Implanted Type Area Premium Card Cancellation Clerk Device Identifier Shelf Expiration Date Model / Serial / Lot Cement Hydroset Injectable 5cc - [id number] Implanted:Qty : 1 on 03/15/2018 by Ronak Khoury MD [place] [facility] [place] Left: Head JOHN 11/09/2019 [id number] / / [id number] Needle Fiducial 22ga - [id number] Implanted:Qty : 1 on 04/01/2023 by Karson Goddard MD at [place] [facility] [place]/A: Esophagus GIVEN IMAGING [id number] 01/12/2025 [id number]-22-01 / / [id number] Stent Wallf Esoph [id number] - [id number] Implanted:Qty : 1 on 04/01/2023 by Karson Goddard MD at [place] [facility] [place]/A: Esophagus [employer] : ENDOSCOPY [id number] 09/09/2024 [id number] / / [id number] Power Port 8fr Sngl Lumen Plas - [id number] Implanted:Qty : 1 on 04/19/2023 by Ophelia Brown DO at OR [facility] Right: Chest CR BARD : PERIPHERAL VASCULAR [id number] 06/14/2024 [id number] / / [id number] documented as of this encounter Visit Diagnoses [...] Power of Attor yves? No Care Teams Expansion Envelope Maker Hand Relationship Specialty Start Date End Date Ophelia Solis MD [address] [facility] [place] [place] [address] PCP - General Family Medicine 09/12/23 documented as of this encounter
--- OUTSIDE RECORDS SUMMARY | 2024-08-06 10:21 | External Medical Summary | Summary of Care ---
Author Name Unknown Organization [facility] Address [address] [place] [address] Phone [phone] Care Team Providers Care Wire Walker Name Role Phone Ophelia Solis MD Primary Care Provider [phone] Reason for Visit * Reason Comments eRx-Medication Refill Encounter Details Date Type Department Care Team (Late st Contact Info) Description 07/18/[address] 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) Allergies Active Allergy Reactions Criticality Noted Date Comments Carbamazepine Rash Medium 02/20/2018 documented as of this encounter (statuses as of 07/20/2024) Medications Vitamin D (Cholecalcifero l) 50 MCG [...] as of this encounter (statuses as of 07/20/2024) Active Problems Problem Noted Date Diagnosed Date [...] as of this encounter (statuses as of 07/20/2024) Immunizations Name Administration Dates Next Due TDAP [...] 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 regulations before prescribing a controlled substance. PDMP [...] 06/13 Pharmacy: [id number] [id number] [facility] Is this request for a [...] 10:00 AM EST Nurse Only Hematology/Oncology Treatment, [place] [address] [place] [address] Sandra, Chair 8 Hem Onc [address] [place] [address] 09/03/2024 10:30 AM EST Imaging Radiology [facility] 1st [facility], [place] [address] [place] [address] 10/04/2024 9:30 AM EST Office Visit Hematology/Oncology [facility] [address] [facility] [place] [address] Cipriano Kuhn MD 200 [facility] [place] [address] Scheduled Procedures Name Priority Associated Diagnoses Date/Ti [...] this encounter Medical Devices Implanted Type Area Piano Instructor Device Identifier Shelf Expiration Date Model / Serial / Lot Cement Hydroset Injectable 5cc - [id number] Implanted:Qty : 1 on 03/15/2018 by Ronak Khoury MD at OR [facility] Left: Head JOHN 11/09/2019 [id number] / / [id number] 37 Needle Fiducial 22ga - [id number] Implanted:Qty : 1 on 04/01/2023 by Karson Goddard MD at ENDOSCOPY [facility] N/A: Esophagus GIVEN IMAGING [id number] 01/12/2025 DSF-22-01 / / [id number] Stent Wallf Esoph 23/[id number] - [id number] Implanted:Qty : 1 on 04/01/2023 by Karson Goddard MD at ENDOSCOPY [facility] N/A: Esophagus [employer] : ENDOSCOPY [id number] 09/09/2024 [id number] / / [id number] Power Port 8fr Sngl Lumen Plas - [id number] Implanted:Qty : 1 on 04/19/2023 by Ophelia Brown DO at OR [facility] Right: Chest CR BARD : PERIPHERAL VASCULAR [id number] 06/14/2024 [id number] / / [id number] documented as of this encounter Visit Diagnoses [...] Power of Attor yves? No Care Teams Wire Walker Relationship Specialty Start Date End Date Ophelia Solis MD [address] [facility] [place] [address] PCP - General Family Medicine 09/12/23 documented as of this encounter
--- OUTSIDE RECORDS SUMMARY | 2024-08-06 10:21 | External Medical Summary | Summary of Care ---
Author Name Unknown Organization [facility] Address [address] [place] [address] Phone [phone] Care Team Providers Care Reactor Operator Name Role Phone Ophelia Solis MD Primary Care Provider Reason for Visit * Reason Comments eRx-Medication Refill Encounter Details Date Type Department Care Team (Late st Contact Info) Description 07/27/2024 Refill [facility] [address] [employer] [facility] [employer] [facility] [place] [address] Ophelia Solis MD [address] [place] [address] Malignant neoplasm of cardia of [...] NEEDED FOR ANXIETY OR SLEEP 30 Tablet 07/27/20 24 Active LORazepam 0.5 MG Oral Tablet (Ativan)Indicat ions: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) TAKE ONE TABLET BY MOUTH EVERY 6 HOURS NEEDED FOR ANXIETY OR SLEEP 30 Tablet 07/20/20 24 024 Discontinued documented as of this [...] 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 on file [...] Telephone Encounter - Ophelia Solis MD - 07/27/2024 4:49 PM ESTSigned Prescriptions: Disp Refills LORazepam 0.5 MG Oral Tablet (Ativan) 30 Tab*0 Sig: TAKE ONE TABLET BY MOUTH EVERY 6 HOURS NEEDED FOR ANXIETY OR SLEEP Authorizing Provider: OPHELIA SOLIS * Telephone Encounter - Latonia Adorno [facility] - 07/27/2024 2:38 PM EST Pending Prescriptions: Disp Refills LORazepam 0.5 MG Oral Tablet [Pharmacy Med*30 Tab*0 Sig: TAKE ONE TABLET BY MOUTH EVERY 6 HOURS NEEDED FOR ANXIETY OR SLEEP * Telephone Encounter - Latonia Adorno [facility] - 07/27/2024 2:37 PM EST I have reviewed the patients controlled substance dispensing history in the Prescription Drug Monitoring Program in compliance with the [facility] regulations before prescribing a controlled substance. PDMP checked on 07/27/2024. Pending Prescriptions: Disp Refills LORazepam 0.5 MG Oral Tablet (Ativan) [Ph*30 Tab*0 Sig: TAKE ONE TABLET BY MOUTH EVERY 6 HOURS NEEDED FOR ANXIETY OR SLEEP Last Visit: Visit date not found (in office), Visit date not found (telemedicine) Next Visit: Visit date not found Date medication was last filled: 07/20/24 Date medication is due for refill: 07/25/24 [id number] [address] Is this request for a controlled substance? Yes and Urine Drug Screen Not completed Toxicology results: No results found for this or any previous visit. Please approve if appropriate. Thanks, Latonia Adorno [facility] Clinical Pharmacist [facility] ([facility]) [phone] * Telephone Encounter - Bee Walters [facility] - 07/27/2024 2:00 PM EST Patients works in [place] until 430 pm.. house is 1 hour away.. High priority please Did you pend patient's preferred pharmacy and medication before forwarding?yes Pharmacy[id number] [address] Pending Prescriptions: Disp Refills LORazepam 0.5 MG Oral Tablet (Ativan) [Ph*30 Tab*0 Sig: TAKE ONE TABLET BY MOUTH EVERY 6 HOURS NEEDED FOR ANXIETY OR SLEEP Last Visit: Visit date not found (in office), Visit date not found (telemedicine) Next Visit: Visit date not found If no future appointments scheduled, and last appointment is greater than a year ago, please schedule patient for a follow-up appointment Last date the medication was ordered: 07/20/24 Is this request for a controlled substance?Yes, What was the last refill date 07/20/24 w/ quantity 30 and dosage take 1 tablet by mouth every 6 hours as needed and Urine Drug Screen Not completed Urine Drug Screen:No results found for this or any previous visit. Patient Phone Numbers Labs: Lab Results Component Value Date/Time CREAT 0.8 05/15/2024 08:48 AM CREAT 1.03 04/11/2021 12:00 AM CREAT 0.9 03/16/2018 04:22 AM POTASSIUM 4.4 05/15/2024 08:48 AM POTASSIUM 3.9 04/11/2021 12:00 AM POTASSIUM 3.9 03/16/2018 04:22 AM TSH 0.88 10/11/2023 08:39 AM TSH 1.77 04/19/2014 09:21 AM LDL 96 04/19/2014 09:21 AM LDL NOT APPLICABLE 04/19/2014 09:21 AM ALT 49 05/15/2024 08:48 AM documented in this encounter Plan of Treatment Upcoming Encounters Date Type Department Care Team (Late st Contact Info) Description 08/14/2024 10:00 AM EST Nurse Only Hematology/Oncology Treatment, [place] [address] [place] [address] Park, Chair 8 Hem Onc [place] [address] [place] [address] 09/03/2024 10:30 AM EST Imaging Radiology [facility] 1st Floor, [place] [address] [facility] [place] [address] 10/04/2024 9:30 AM EST Office Visit Hematology/Oncology [facility] [address] [place] [address] Cipriano Kuhn MD [address] [place] [address] Scheduled Procedures Name Priority Associated Diagnoses Date/Ti me COLONOSCOPY FLEXIBLE PROXIMA L DIAGNOSTIC Recall History of colonic polyps Health Maintenance Due Date Last Done Comments Cologuard 2009 Fecal Occult Blood Test 2009 Sigmoidoscopy 2009 Depression Screening 12/21/2018 12/21/2017 Lipid Panel 04/19/2019 04/19/2014 COVID-19 Vaccine (2023-2 5 season) 2024 04/10/2021, 03/19/2021 Influenza Vaccine [...] this encounter Medical Devices Implanted Type Area Flaker Tender Device Identifier Shelf Expiration Date Model / Serial / Lot Cement Hydroset Injectable 5cc - [id number] Implanted:Qty : 1 on 03/15/2018 by Ronak Khoury MD at OR [facility] Left: Head JOHN 11/09/2019 [id number] / / [id number] 37 Needle Fiducial 22ga - [id number] Implanted:Qty : 1 on 04/01/2023 by Karson Goddard MD at ENDOSCOPY [facility] N/A: Esophagus GIVEN IMAGING [id number] 01/12/2025 DSF-22-01 / / [id number] Stent Wallf Esoph 23/41ltj02mf - [id number] Implanted:Qty : 1 on 04/01/2023 by Karson Goddard MD at ENDOSCOPY [facility] N/A: Esophagus [employer] : ENDOSCOPY [id number] 09/09/2024 [id number] / / [id number] Power Port 8fr Sngl Lumen Plas - [id number] Implanted:Qty : 1 on 04/19/2023 by Ophelia Brown DO at OR [facility] Right: Chest CR BARD : PERIPHERAL VASCULAR [id number] 06/14/2024 [id number] / / [id number] documented as of this encounter Visit Diagnoses [...] Power of Attor yves? No Care Teams Reactor Operator Relationship Specialty Start Date End Date Ophelia Solis MD [address] [place] [address] PCP - General Family Medicine 09/12/23 documented as of this encounter
--- OUTSIDE RECORDS SUMMARY | 2024-08-06 10:22 | External Medical Summary | Summary of Care ---
Author Name Unknown Organization [facility] Address [address] [place] [address] Phone [phone] Care Team Providers Care Aerophysicist Name Role Phone Thaddeus Solis MD Primary Care Provider [phone] Reason for Visit * Reason Onset Date Comments Hospital Follow-Up 07/09/2024 [facility]) Encounter Details Date Type Department Care Team (Late st Contact Info) Description 07/09/[address] [address] Cathi Do RN Hospital Follow-Up ([facility] ([facility])) Allergies Active Allergy Reactions Criticality Noted Date Comments Carbamazepine Rash Medium 02/20/2018 documented as of this encounter (statuses as of 07/10/2024) Medications Vitamin D (Cholecalciferol ) 50 MCG [...] as of this encounter (statuses as of 07/10/2024) Active Problems Problem Noted Date Diagnosed Date [...] as of this encounter (statuses as of 07/10/2024) Immunizations Name Administration Dates Next Due TDAP [...] 3:19 PM EDT Sexual Orientation Straight 03/28/2023 3 :19 PM EDT 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 Not on file [...] Telephone Encounter - Cathi Do RN - 07/09/2024 1:56 PM EST Transitions of Care Note Reason for Referral:Recent Admission Phone visit for follow up: [facility] #1 Admitted to: [facility], Date: 07/06/2024 Discharged to: Home, Date: 07/07/2024 Diagnosis driving hospitalization: Intractable Nausea and Vomiting, History of Esophageal Cancer Attempted Phone Call First Attempt Call Outcome Left Voicemail/Message Cathi Do RN Transitions of Care Note Reason for Referral:Recent Admission Phone visit for follow up: [facility] #2 Admitted to: [facility], Date: 07/06/2024 Discharged to: Home, Date: 07/07/2024 Diagnosis driving hospitalization: Intractable Nausea and Vomiting, History of Esophageal Cancer Attempted Phone Call Second Attempt Call Outcome Left Voicemail/Message Cathi Do RN documented in this encounter Plan of Treatment Upcoming Encounters Date Type Department Care Team (Late st Contact Info) Description 08/14/2024 10:00 AM EST Nurse Only Hematology/Oncology Treatment, [place] [address] [facility] [place] [address] Sandra, Chair [address] Hem [address] [place] [address] 09/03/2024 10:30 AM EST Imaging Radiology [facility] 1st Floor, [place] [address] [facility] [place] [address] 10/04/2024 9:30 AM EST Office Visit Hematology/Oncology [facility] [address] [place] [address] Cipriano Kuhn MD [address] [facility] [place] [place] [address] Scheduled Procedures Name Priority Associated Diagnoses Date/Ti [...] encounter Medical Devices Implanted Type Area Manager Medical Affairs Device Identifier Shelf Expiration Date Model / Serial / Lot Cement Hydroset Injectable 5cc - [id number] Implanted:Qty : 1 on 03/15/2018 by Ronak Khoury MD at OR [facility] Left: Head JOHN 11/09/2019 [id number] / / [id number] Needle Fiducial 22ga - [id number] Implanted:Qty : 1 on 04/01/2023 by Karson Goddard MD at [facility] N/A: Esophagus GIVEN IMAGING [id number] 01/12/2025 DSF-22-01 / / [id number] Stent Wallf Esoph 23/28khc07yk - [id number] Implanted:Qty : 1 on 04/01/2023 by Karson Goddard MD at [facility]COPY [facility] N/A: Esophagus [employer] : ENDOSCOPY [id number] 09/09/2024 [id number] / / [id number] Power Port 8fr Sngl Lumen Plas - [id number] Implanted:Qty : 1 on 04/19/2023 by Thaddeus Brown, DO at OR [facility] Right: Chest CR BARD : PERIPHERAL VASCULAR [id number] 06/14/2024 [id number] / / [id number] documented as of this encounter Advance Directives [...] Power of Attor yves? No Care Teams Aerophysicist Relationship Specialty Start Date End Date Thaddeus Solis MD [address] [facility] [place] [id number] PCP - General Family Medicine 09/12/23 documented as of this encounter
--- OUTSIDE RECORDS SUMMARY | 2024-08-06 10:22 | External Medical Summary | Summary of Care ---
Author Name Unknown Organization [facility] Address [address] [place] [address] Phone [phone] Care Team Providers Care Water Filter Cleaner Name Role Phone Thaddeus Solis MD Primary Care Provider [phone] Reason for Visit * Reason Onset Date Comments Hospital Follow-Up 07/09/2024 [facility] Encounter Details Date Type Department Care Team (Late st Contact Info) Description 07/09/[address] [address] Cathi Do RN Hospital Follow-Up ([facility] ([facility])) Allergies Active Allergy Reactions Criticality Noted Date Comments Carbamazepine Rash Medium 02/20/2018 documented as of this encounter (statuses as of 07/09/2024) Medications Vitamin D (Cholecalciferol ) 50 MCG [...] as of this encounter (statuses as of 07/09/2024) Active Problems Problem Noted Date Diagnosed Date [...] as of this encounter (statuses as of 07/09/2024) Immunizations Name Administration Dates Next Due TDAP [...] 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 Not [...] Admission Phone visit for follow up: [facility] Admitted to: [facility], Date: 07/06/2024 Discharged to: Home, Date: 07/07/2024 Diagnosis driving hospitalization: Intractable Nausea and Vomiting, History of Esophageal Cancer Attempted Phone Call First Attempt Call Outcome Left Voicemail/Message Cathi Do RN documented in this encounter Plan of Treatment Upcoming Encounters Date Type Department Care Team (Late st Contact Info) Description 08/14/2024 10:00 AM EST Nurse Only Hematology/Oncology Treatment, [place] [address] [place] [address] Sandra, Chair 8 Hem Onc [facility] [address] [place] [address] 09/03/2024 10:30 AM EST Imaging Radiology [facility], [place] [address] [place] [address] 10/04/2024 9:30 AM EST Office Visit Hematology/Oncology [facility] [address] [place] [address] Cipriano Kuhn MD [address] [facility] [address] Scheduled Procedures Name Priority Associated Diagnoses Date/Ti [...] this encounter Medical Devices Implanted Type Area Property Portfolio Officer Device Identifier Shelf Expiration Date Model / Serial / Lot Cement Hydroset Injectable 5cc - [id number] Implanted:Qty : 1 on 03/15/2018 by Ronak Khoury MD at OR [place] Left: Head JOHN 11/09/2019 [id number] / / [id number] Needle Fiducial 22ga - [id number] Implanted:Qty : 1 on 04/01/2023 by Karson Goddard MD at ENDOSCOPY [place] N/A: Esophagus GIVEN IMAGING [id number] 01/12/2025 DSF-22-01 / / [id number] Stent Wallf Esoph 23/75bry54sw - [id number] Implanted:Qty : 1 on 04/01/2023 by Karson Goddard MD at ENDOSCOPY [place] N/A: Esophagus [employer] : ENDOSCOPY [id number] 09/09/2024 [id number] / / [id number] Power Port 8fr Sngl Lumen Plas - [id number] Implanted:Qty : 1 on 04/19/2023 by Thaddeus Brown DO at OR [facility] Right: Chest CR BARD : PERIPHERAL VASCULAR [id number] 06/14/2024 [id number] / / [id number] documented as of this encounter Advance Directives [...] of Attor yves? No Care Teams Water Filter Cleaner Relationship Specialty Start Date End Date Thaddeus Solis MD [address] [place] [facility] [place] [address] PCP - General Family Medicine 09/12/23 documented as of this encounter
[2024-08-06] MEDS: FOSAPREPITANT DIMEGLUMINE 150 MG in SODIUM CHLORIDE 0.9% 145 ML IV ONE (10:28)
[2024-08-06] MEDS: D5W AND NSS 1,000 ML IV SCH (11:45)
[2024-08-06 12:20] LABS: Appearance Urine Clear (Clear); Bilirubin Urine Negative (Negative); Blood Urine Negative (Negative); Color Urine Yellow; Glucose Urine UA Negative (Negative); Ketones Urine Trace (Negative); Leukocyte Esterase Urine Negative (Negative); Nitrite Urine Negative (Negative); Protein Urine Negative (Negative); Specific Gravity Urine 1.016 (1.000-1.030); Urobilinogen Urine Negative (Negative)
--- NOTE | 2024-08-06 12:42 | History & Physical Report ---
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 Intractable nausea or vomiting Hx of gastric/esophageal ca s/p adjuvant chemo and s/p total gastrectomy and trevin en y esophagojejunal anastomosis conservative measures with IV antiemetics, fluids Pt feels he can tolerate regular diet at this point after received Emend --KUB/CXR without acute findings pt sx improving after fluids and IV emend in ED low threshold for GI consult if sx worsen or fail to improve q2h feeding due to hx of total gastrectomy per pt continue gentle IVF d5 NSS @ 80cc/hr cbc, bmp in a.m. continue zyprexa Follows apryl Heme/onc, currently under observation since 07/2023 DVT ppx: SCDS for now, if pt requires continued hospitalization would recommend adding chemical prophylaxis, expect d/c in < 24hrs Dispo: admit to med/surg due to intractable n/v, likely able to discharge tomorrow FULL CODE PCP: Irma Pt was seen and examined in collaboration with Dr. Aponte, please see addendum A total of 50 minutes was spent coordinating, documenting, and providing care for this patient excluding time spent in the performance of separately billed services. This included personally viewing all current laboratories and imaging studies, medication reconciliation, outpatient chart review, and discussion with specialists. History of Present Illness Chief Complaint: intractable N/V. Primary Care Provider: Thaddeus Solis MD This is a 59-year-old male with past medical history significant for esophageal/gastric cancer status post neoadjuvant chemotherapy/surgery, surgery consisted of total gastrectomy and trevin-en-Y esophagojejunal anastomosis, chronic anemia (baseline hemoglobin 12-13), history trigeminal neuralgia status post surgery, past tobacco abuse presents with nausea and vomiting x 12 hrs. He states he ate a normal dinner last night, but he ate too much. Ever since eating to much he developed severe dry heaves. He does have some upper abd pain from the heaves. He moved his bowels this morning. He was unable to handle the N/V so he came to the ER. This is common for him. He received Emend in the ER and his symptoms improved significantly. He reports occasionally smoking marijuana for his nausea, but he denies any other recreational drug use. His last admission was 1 month ago for similar sx which resolved with an overnight stay, Emend and IVF. In ED work up thus far has been unremarkable including CBC and CMP. Urine revealed ketones consistent with dehydration. His chronic anemia is stable with a hgb of 13.0 Allergies Allergy/AdvReac Type Severity Reaction Status Date / Time carbamazepine [From Tegretol] Allergy Mild Rash Verified 02/13/24 11:18 Home Medications Medication Instructions Recorded Confirmed Type escitalopram oxalate 10 mg tablet 10 mg PO QAM 12/22/23 08/06/24 History olanzapine 5 mg tablet (Zyprexa) 5 mg PO HS 12/22/23 08/06/24 History pantoprazole 40 mg tablet,delayed 40 mg PO QAM Heartburn 12/22/23 08/06/24 History release cholecalciferol (vitamin D3) 50 50 mcg PO DAILY 02/13/24 08/06/24 History mcg (2,000 unit) tablet (Vitamin D3) cyanocobalamin (vitamin B-12) 500 500 mcg PO DAILYBD 02/13/24 08/06/24 History mcg tablet (Vitamin B-12) aprepitant 80 mg capsule 80 mg PO DIRECTED PRN n/v 04/13/24 08/06/24 History folic acid 1 mg tablet 1 mg PO .DAILY @ LUNCH 04/13/24 08/06/24 History lorazepam 0.5 mg tablet 0.5 mg PO DIRECTED PRN Other 04/13/24 08/06/24 History morphine concentrate 100 mg/5 mL See Rx Instructions .Route 04/13/24 08/06/24 History (20 mg/mL) oral solution .COMPLEX PRN Pain prochlorperazine maleate 10 mg 10 mg PO DIRECTED PRN n/v 04/13/24 08/06/24 History tablet Past Med/Surg History Problem List Intractable nausea and vomiting (Acute) Intractable nausea and vomiting (Acute) Medical History History of esophageal cancer Severe malnutrition Anemia Esophageal cancer diagnosed 04/2023--chemo/ERCP 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 Edmonds/[facility] History of recent blood transfusion 05/02/23 @ [facility] Enteropathogenic Escherichia coli infection Hyponatremia Trigeminal neuralgia Hypomagnesemia Vomiting and diarrhea Iron deficiency received blood transfusion 05/02/23 @ [facility] Surgical History History of colonoscopy History of esophagogastroduodenoscopy (EGD) History of tooth extraction partial upper and lower denture History of ERCP 04/[address] [facility] [place] Eduardo History of vascular access device A port--power port in placed on right side of chest Family History Father Stroke Social History Smoking Status: Former smoker Tobacco Type: Cigars Second Hand Exposure: No; Do You Dip or Chew Tobacco: No; Hx Alcohol Use: Yes Alcohol type: beer Hx Substance Use: Yes Preferred Language: Icelandic Communication Ability: Effective Chief Of Service Required: No Beliefs That Will Affect Care: None marital status: Current Living Situation: Spouse Feels Safe at Home: Yes Assistive Devices: Denture - Upper and Denture - Lower Review of Systems Review of Systems: All systems reviewed & are unremarkable except as noted in HPI & below Physical Exam Physical Exam: please refer to Dr. Aponte addendum for physical exam findings. Results & Data Results & Data Vital Signs (Past 12 Hours) Vital Signs Temp Pulse Pulse Resp BP BP Pulse Ox 08/06/24 11:43 58 L 20 109/67 98 08/06/24 09:30 53 L 08/06/24 09:10 75 20 94 08/06/24 08:54 36.1 C L 66 20 154/97 H 99 O2 Del Method 08/06/24 11:43 Room Air 08/06/24 09:30 08/06/24 09:10 Room Air 08/06/24 08:54 Room Air Laboratory Results I have independently reviewed and interpreted patient's admitting labs including CBC, CMP, lipase, UA Diagnostic Findings Chest X-Ray 08/06/24 09:30 XR chest 1V portable CLINICAL HISTORY: vomiting COMPARISON STUDY: Chest radiograph July 06, 2024. FINDINGS: Right internal jugular [id number] remains in place. Lung volumes are normal. Lungs are clear. There is no pneumothorax or pleural effusion. Cardiac size is normal. Mediastinal contours are normal. There is no evidence for pulmonary edema. Old right eighth rib fracture is incidentally noted. IMPRESSION: No acute cardiopulmonary findings. No change in appearance of the chest. ACT 112: Negative or not required by law. Electronically signed by: Mele Umanzor M.D. 08/06/2024 10:12 AM KUB X-Ray 08/06/24 09:30 XR KUB/Abdomen 1 view CLINICAL HISTORY: vomiting TECHNIQUE: 1 view of the abdomen was obtained. Comparison: Comparison is made to abdomen radiograph 07/06/2024 FINDINGS: Lung bases are unremarkable. Degenerative changes are seen in the visualized skeleton. The bowel gas pattern is nonobstructive. Small stool burden is seen. IMPRESSION: Nonobstructive bowel gas pattern. ACT 112: Negative or not required by law. Electronically signed by: Zeb Whitman M.D. 08/06/2024 10:05 AM Medications Administered Medication List Dextrose/Sodium Chloride (D5w And Nss) 1,000 mls @ 80 mls/hr IV .[id number] GREG Stop: 08/07/24 11:44 Last Admin: 08/06/24 11:45 Dose: 80 mls/hr Documented By: NRB Discontinued Medications Sodium Chloride (Nss) 1,000 mls @ 999 mls/hr IV .[id number] ONE Stop: 08/06/24 10:03 Last Infusion: 08/06/24 10:10 Dose: Infused Documented By: Admin: 08/06/24 09:26 Dose: 999 mls/hr Documented By: DS Fosaprepitant 150 mg/ Sodium (Chloride) 145 mls @ 300 mls/hr IV ONE ONE Stop: 08/06/24 09:57 Last Infusion: 08/06/24 11:00 Dose: Infused Documented By: Admin: 08/06/24 10:28 Dose: 300 mls/hr Documented By: SRL Ondansetron HCl (Ondansetron Inj 2 Mg/Ml 2 Ml Vial) 4 mg IV NOW STA Stop: 08/06/24 09:04 Last Admin: 08/06/24 09:26 Dose: 4 mg Documented By: FLORECITA COVID-19 Results Results COVID-19 Adm Lab Results: RBC 4.45 M/uL (4.70-6.10) L 08/06/24 WBC 6.38 K/ul (4.8-10.8) 08/06/24 Hgb 13.0 g/dl (14.0-18.0) L 08/06/24 Hct 38.2 % (42.0-52.0) L 08/06/24 Plt Count 187 K/uL (130-400) 08/06/24 Neutrophils (%) (Auto) 77.8 % 08/06/24 Lymphocytes (%) (Auto) 13.2 % 08/06/24 Monocytes # (Auto) 0.53 K/uL (0.11-0.59) 08/06/24 Eosinophils # (Auto) 0.01 K/uL (0.00-0.50) 08/06/24 Immature Granulocyte % (Auto) 0.2 % 08/06/24 Neutrophils # (Auto) 4.97 K/uL (1.40-6.50) 08/06/24 Lymphocytes # (Auto) 0.84 K/uL (1.20-3.40) L 08/06/24 Monocytes # (Auto) 0.53 K/uL (0.11-0.59) 08/06/24 Eosinophils # (Auto) 0.01 K/uL (0.00-0.50) 08/06/24 Basophils # (Auto) 0.02 K/uL (0.00-0.20) 08/06/24 Immature Granulocyte # (Auto) 0.01 K/uL (0.01-0.20) 4 Na 140 mmol/L (136-145) 08/06/24 K 4.0 mmol/L (3.5-5.1) 08/06/24 Cl 106 mmol/L (98-107) 08/06/24 CO2 25 mmol/L (21-32) 08/06/24 Anion Gap 9 (3-11) 08/06/24 BUN 9 mg/dl (6-23) 08/06/24 Creatinine 0.64 mg/dl (0.6-1.4) 08/06/24 BUN/Creatinine Ratio 14.1 (10-20) 08/06/24 Glucose Level 127 mg/dl (70-99(Fasting)) H 08/06/24 Ca 9.2 mg/dl (8.6-10.3) 08/06/24 Total Bilirubin 0.7 mg/dl (0.2-1.0) 08/06/24 AST/SGOT 27 U/L (13-39) 08/06/24 ALT/SGPT 18 U/L (7-52) 08/06/24 Alkaline Phosphatase 56 U/L (34-104) 08/06/24 Total Protein 6.6 gm/dl (6.0-8.3) 08/06/24 Albumin 4.2 gm/dl (3.4-5.0) 08/06/24 Globulin 2.4 gm/dl (2.5-4.0) L 08/06/24 Albumin/Globulin Ratio 1.8 (0.9-2) 08/06/24 Chest X-Ray 08/06/24 Code Status & VTE Plan Code Status FULL CODE Supervising Physician Co-Signing Physician Notes Patient seen and examined Reports intractable dry heaves since last night and not able to eat Got Emend in ER and symptoms are currently improving On exam, General: No acute distress Eyes: PERRL, conjunctivae normal, not pale, anicteric sclerae, EOM intact bilaterally ENMT: External ear and nose normal, oropharynx normal Respiratory: Normal respiratory effort, no respiratory distress, lungs clear to auscultation, no crackles and no wheezes Cardiovascular: RRR s1 s2 Gastrointestinal (Abdomen): Abdomen is not distended, soft, non-tender to palpation, no guarding, no palpable hepatosplenomegaly, normal bowel sounds Musculoskeletal: No pedal edema Neurologic: No focal weakness, sensation grossly intact Psychiatric: Alert and oriented x 3, euthymic affect Continue IVF Antiemetics prn Continue home meds Advance diet as tolerated Monitor overnight. If resolved and tolerating po well tomorrow, can dc Agree with plans as detailed by Kim Benitez PA-C I spent a total of 35 minutes coordinating, documenting and providing care for this patient excluding time spent in performance of separately billed services
[2024-08-06] MEDS ORDERED: LORazepam 0.5 MG TAB PO PRN (14:52)
[2024-08-06] MEDS ORDERED: MoRPHine SULFATE 10 MG/0.5 ML UDP PO PRN (14:52)
[2024-08-06] MEDS ORDERED: ACETAMINOPHEN 325 MG TAB PO PRN (14:52)
[2024-08-06] MEDS: FOLIC ACID 1 MG TAB PO SCH (15:33)
[2024-08-06] MEDS: OLANZapine 5 MG TABLET PO SCH (19:42)
[2024-08-06 20:11] VITALS: RESP 18
[2024-08-07 07:52] LABS: BUN Creatinine Ratio 8.3 (10-20); Calcium 8.6 mg/dl (8.6-10.3); Potassium 4.1 mmol/L (3.5-5.1)
[2024-08-07 07:56] LABS: Hematocrit (blood only) 31.2 % (42.0-52.0); Hemoglobin 10.5 g/dl (14.0-18.0); Mean Corpuscular Hemoglobin 29.7 pg (25.0-34.0); Mean Corpuscular Hgb Conc 33.7 g/dL (32.0-36.0); Mean Corpuscular Volume 88.1 fL (80.0-100.0); Mean Platelet Volume 10.6 fL (9.4-12.4); Platelet Count 161 K/uL (130-400); RDW Coefficient of Variation 15.6 % (11.5-14.5); RDW Standard Deviation 50.5 fL (36.4-46.3); Red Blood Count 3.54 M/uL (4.70-6.10); White Blood Count 3.62 K/ul (4.8-10.8)
[2024-08-07 08:12] VITALS: BP 102/66; PULSE 56; TEMP 97.7; O2SAT 98
[2024-08-07] MEDS: ESCITALOPRAM OXALATE 10 MG TAB PO SCH (08:31)
[2024-08-07] MEDS: PANTOprazole 40 MG TAB PO SCH (08:31)
[2024-08-07] MEDS: ONDANSETRON INJ 2 MG/ML 2 ML VIAL IV PRN (10:35)
--- NOTE | 2024-08-07 13:10 | Discharge Summary ---
Date of Service August 07, 2024 Admission HPI Per Admitting Provider This is a 59-year-old male with past medical history significant for esophageal/gastric cancer status post neoadjuvant chemotherapy/surgery, surgery consisted of total gastrectomy and trevin-en-Y esophagojejunal anastomosis, chronic anemia (baseline hemoglobin 12-13), history trigeminal neuralgia status post surgery, past tobacco abuse presents with nausea and vomiting x 12 hrs. He states he ate a normal dinner last night, but he ate too much. Ever since eating to much he developed severe dry heaves. He does have some upper abd pain from the heaves. He moved his bowels this morning. He was unable to handle the N/V so he came to the ER. This is common for him. He received Emend in the ER and his symptoms improved significantly. He reports occasionally smoking marijuana for his nausea, but he denies any other recreational drug use. His last admission was 1 month ago for similar sx which resolved with an overnight stay, Emend and IVF. In ED work up thus far has been unremarkable including CBC and CMP. Urine revealed ketones consistent with dehydration. His chronic anemia is stable with a hgb of 13.0 Admission Exam Per Admitting Provider General: No acute distress Eyes: PERRL, conjunctivae normal, not pale, anicteric sclerae, EOM intact bilaterally ENMT: External ear and nose normal, oropharynx normal Respiratory: Normal respiratory effort, no respiratory distress, lungs clear to auscultation, no crackles and no wheezes Cardiovascular: RRR s1 s2 Gastrointestinal (Abdomen): Abdomen is not distended, soft, non-tender to palpation, no guarding, no palpable hepatosplenomegaly, normal bowel sounds Musculoskeletal: No pedal edema Neurologic: No focal weakness, sensation grossly intact Psychiatric: Alert and oriented x 3, euthymic affect Principal Diagnosis Intractable nausea and vomiting Discharge Exam Constitutional: WD/WN, vitals as above, NAD, sitting up in bed, pleasant, conversing easily Respiratory: normal respiratory effort, lungs clear to auscultation, no wheeze, rales, rhonchi. Normal insp/exp effort, no accessory muscle use Cardiovascular: RRR, no murmur, no edema Vessels: no JVD or carotid bruit Chest: normal inspection of chest Abdomen: normal bowel sounds, soft, nontender, no hepatosplenomegaly Musculoskeletal: no cyanosis or clubbing, extremities motor strength 5/5 Skin: no rashes, warm and dry normal turgor Neurologic: PERRL, EOMI, accommodation nl, no face palsy, no dysarthria CN's II- XI intact bilaterally and moves all extremities Psychiatric: A+Ox3, euthymic affect Discharge Data Allergies Allergy/AdvReac Type Severity Reaction Status Date / Time carbamazepine [From Tegretol] Allergy Mild Rash Verified 02/13/24 11:18 Consultations 08/06/24 11:43 ED Decision to Admit Stat Hospital Course (1) Intractable nausea and vomiting: (2) History of esophageal cancer: Plan This is a 59-year-old male with past medical history significant for esophageal/gastric cancer status post neoadjuvant chemotherapy/surgery, surgery consisted of total gastrectomy and trevin-en-Y esophagojejunal anastomosis, chronic anemia (baseline hemoglobin 12-13), history trigeminal neuralgia status post surgery, past tobacco abuse presents with nausea and vomiting x 12hrs. Patient reported that he "overdid it" and ate a lot more than he used to given his history of total gastrectomy. Patient reported significant improvement in his symptoms after receiving Emend. He was able to tolerate normal diet. I have recommended a small meals with fiber which he said he will comply with. I also discussed that Zyprexa can be increased to 7.5 mg at bedtime if the symptoms of nausea is persistent. Patient wanted to go home; discharged with instruction to follow-up with PCP Please note the above document was generated using voice recognition software. It may contain grammatical, syntax or spelling errors. Any formal questions or concerns about the content, text or information contained within the body of this dictation should be directly addressed to the provider for clarification Total Time Total Time Spent Total Time Spent (In Minutes): 45 Total Time Includes: Examination of the Patient, Discharge Planning, Medication Reconciliation, Communication With Other Providers and Other Discharge Plan Discharge Items Patient Disposition: Home - Self-Care Reason For Visit: INTRACTABLE N/V Discharge Diagnosis: Intractable Nausea and vomiting Activity: Resume your previous activity Non-emergency contact: Primary Care Provider Call non-emergency contact if: you have any medication questions and your symptoms worsen Follow-up/Referrals: Thaddeus Solis MD [Primary Care Provider] - Diet: Regular Addtl Attending Provider Instructions: Eat small meals. Increase fiber in your diet. Zyprexa can be increased to 7.5 mg ( one and half tablet) at night to see if provides relief with Nausea. Follow up with PCP Pending Studies at Discharge: No Stand-Alone Forms: [facility], Smoking Cessation Medications and DC Order Prescriptions: Continued cyanocobalamin (vitamin B-12) [Vitamin B-12] 500 mcg Tablet 500 mcg PO DAILYBD cholecalciferol (vitamin D3) [Vitamin D3] 50 mcg (2,000 unit) Tablet 50 mcg PO DAILY olanzapine [Zyprexa] 5 mg tablet 5 mg PO HS pantoprazole 40 mg tablet,delayed release (DR/EC) 40 mg PO QAM escitalopram oxalate 10 mg tablet 10 mg PO QAM morphine concentrate 100 mg/5 mL (20 mg/mL) solution See Rx Instructions .ROUTE .COMPLEX PRN (Reason: Pain) Rx Instructions: 0.5 ML q4h prn prochlorperazine maleate 10 mg tablet 10 mg PO DIRECTED PRN (Reason: n/v) lorazepam 0.5 mg tablet 0.5 mg PO DIRECTED PRN (Reason: Other) folic acid 1 mg tablet 1 mg PO .DAILY @ LUNCH aprepitant 80 mg capsule 80 mg PO DIRECTED PRN (Reason: n/v) Discharge Orders: Discharge Order (Routine); Ordered 08/07/24 Ordered By: Beni Hernandez/Other Patient Handouts: ED Vomiting (Adult) Admission Data Admit Date/Time: 08/06/24 12:58 Attending Provider: Beni Leon Admit Provider: Susi Aponte I. Primary Care Provider: Thaddeus Solis Other Providers: Susi Aponte I. Other Interventions: Discharge Summary Assessment (RN) Last Done: 08/07/24 12:50
== END 2024-08-07 13:41 | disposition home or self-care (01) ==
LOC: 3W 08:49 → ED 08:49 → SUATTDRO 12:58 → 3W 14:33

== ENCOUNTER 2024-11-06 14:52 | Observation (INO) ==
[2024-11-06] MEDS: ONDANSETRON INJ 2 MG/ML 2 ML VIAL IV STA (15:49)
[2024-11-06 16:11] LABS: Basophils # (auto) 0.01 K/uL (0.00-0.20); Basophils % (auto) 0.2 %; Hematocrit (blood only) 38.6 % (42.0-52.0); Hemoglobin 13.7 g/dl (14.0-18.0); Immature Granulocytes # (auto) 0.01 K/uL (0.01-0.20); Immature Granulocytes % (auto) 0.2 %; Lymphocytes # (auto) 0.59 K/uL (1.20-3.40); Lymphocytes % (auto) 13.4 %; Mean Corpuscular Hemoglobin 30.9 pg (25.0-34.0); Mean Corpuscular Hgb Conc 35.5 g/dL (32.0-36.0); Mean Corpuscular Volume 86.9 fL (80.0-100.0); Mean Platelet Volume 10.2 fL (9.4-12.4); Monocytes # (auto) 0.35 K/uL (0.11-0.59); Monocytes % (auto) 7.9 %; Neutrophils # (auto) 3.45 K/uL (1.40-6.50); Neutrophils % (auto) 78.3 %; Platelet Count 224 K/uL (130-400); RDW Coefficient of Variation 14.4 % (11.5-14.5); RDW Standard Deviation 46.1 fL (36.4-46.3); Red Blood Count 4.44 M/uL (4.70-6.10); White Blood Count 4.41 K/ul (4.8-10.8)
[2024-11-06 16:29] LABS: Alanine Aminotransferase 28 U/L (7-52); Albumin Globulin Ratio 1.8 (0.9-2); Albumin Level 4.7 gm/dl (3.4-5.0); Alkaline Phosphatase 67 U/L (34-104); Anion Gap 9 (3-11); Aspartate Aminotransferase 32 U/L (13-39); Bilirubin,Total 0.8 mg/dl (0.2-1.0); Blood Urea Nitrogen 8 mg/dl (6-23); Calcium 9.7 mg/dl (8.6-10.3); Carbon Dioxide 27 mmol/L (21-32); Chloride 102 mmol/L (98-107); Globulin 2.6 gm/dl (2.5-4.0); Glucose 124 mg/dl (70-99(Fasting)); Lipase 404 U/L (11-82); Sodium 138 mmol/L (136-145); Total Protein 7.3 gm/dl (6.0-8.3)
[2024-11-06] MEDS: SODIUM CHLORIDE 0.9% 1,000 ML IV ONE ×2 (16:56→19:52)
[2024-11-06] MEDS: FOSAPREPITANT DIMEGLUMINE IV ONE (18:07)
[2024-11-06] MEDS: SODIUM CHLORIDE 0.9% IV ONE (18:07)
--- NOTE | 2024-11-06 18:26 | Emergency Department Note ---
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 Patient states that this happens routinely after patient had a total gastrectomy in 2022. He notes that he was seen by GI who states that there is no significant abnormalities. Patient notes that over the past 1 day has had abdominal pain in his epigastric region as well as persistent nausea and vomiting. He is a plus episode of this in the last 1 to 2 years. He denies any diarrhea. States all can help some his fluids and the medicine Emend. ROS: See above HPI for pertinent positives & negatives. A total of 10 systems reviewed and were otherwise negative. PAST MEDICAL HISTORY: See Below PAST SURGICAL HISTORY: See Below FAMILY HISTORY: See Below SOCIAL HISTORY: See Below HOME MEDICATIONS: See Below ALLERGIES: See Below VITALS: See Below PHYSICAL EXAMINATION: General: Uncomfortable appearing Head: Normocephalic and atraumatic Eyes: Normal inspection, extraocular muscles intact Ear, nose, throat: Normal external exam Neck: Normal range of motion Respiratory: lungs clear to auscultation bilaterally Cardiovascular: Regular rate/rhythm, no murmur GI: Epigastric tenderness without rebound or guarding Extremities: nontender, moves all extremities Neuro: The patient awake and alert, appropriately conversive, no focal deficits, symmetric faces Skin: Warm, dry, and intact MEDICAL DECISION MAKING: This is a 59-year-old male presenting for nausea vomiting and abdominal pain. Patient had a screening blood work at triage. He does have elevated lipase at this time in the 400s. Did recommend a CAT scan to help elucidate further for any other intra-abdominal pathology however patient declines. Patient does request fluids and medications of fluids ordered at this time. Emend. -Patient will be given Dilaudid for pain control as well. He now would like CT imaging on reassessment. -Patient's blood work does reveal a elevated lipase of 404. The patient epigastric pain, nausea vomiting, consider pancreatitis -CT ab/pelvis does reveal acute sigmoid diverticulitis will treat with Zosyn at this time -Patient after multiple times in the ER and he does appear fairly nauseous and in extreme pain. Given Dilaudid 2 times as well as antiemetics and 2 L of fluid. Will admit at this time for his likely pancreatitis as well as acute diverticulitis, nausea, vomiting and pain. -Care discussed with Dr. bruner for admission Differential diagnosis: Pancreatitis, gastritis, gastroenteritis, diverticulitis, abdominal abscess, bowel rupture Independent History obtained from: Diagnostics interpreted by me: ECG: None Cardiac Monitoring: An order was placed for continuous cardiac monitoring. The monitor shows a rate of 56 with sinus rhythm. 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 Edmonds/[facility] [place] Eduardo History of recent blood transfusion 05/02/23 @ [facility] Enteropathogenic Escherichia coli infection Hyponatremia Trigeminal neuralgia Hypomagnesemia Vomiting and diarrhea Iron deficiency received blood transfusion 05/02/23 @ [facility] Surgical History History of colonoscopy History of esophagogastroduodenoscopy (EGD) History of tooth extraction partial upper and lower denture History of ERCP 04/2023 @ [facility] [place] Eduardo History of vascular access device A port--power port in placed on right side of chest Family History Father Stroke Social History Smoking Status: Never smoker Tobacco Type: Cigarettes Second Hand Exposure: No; Do You Dip or Chew Tobacco: No; Hx Alcohol Use: Yes Alcohol type: beer Hx Substance Use: Yes Last Used Substance: Days (ago) Preferred Language: Faroese Communication Ability: Effective 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 Beliefs That Will Affect Care: None marital status: Current Living Situation: Spouse Feels Safe at Home: Yes Assistive Devices: None Allergies Allergies Allergy/AdvReac Type Severity Reaction Status Date / Time carbamazepine [From Tegretol] Allergy Mild Rash Verified 11/06/24 17:13 Home Meds Home Medications Medication Instructions Recorded Confirmed escitalopram oxalate 10 mg tablet 10 mg PO QAM 12/22/23 11/06/24 olanzapine 5 mg tablet (Zyprexa) 5 mg PO HS 12/22/23 11/06/24 pantoprazole 40 mg tablet,delayed 40 mg PO QAM Heartburn 12/22/23 11/06/24 release cholecalciferol (vitamin D3) 50 50 mcg PO DAILY 02/13/24 11/06/24 mcg (2,000 unit) tablet (Vitamin D3) cyanocobalamin (vitamin B-12) 500 500 mcg PO DAILYBD 02/13/24 11/06/24 mcg tablet (Vitamin B-12) aprepitant 80 mg capsule 80 mg PO DAILY PRN Nausea And 04/13/24 11/06/24 Vomiting folic acid 1 mg tablet 1 mg PO QDL 04/13/24 11/06/24 lorazepam 0.5 mg tablet 0.5 mg PO Q6H PRN Anxiety 04/13/24 11/06/24 morphine concentrate 100 mg/5 mL 10 mg PO Q4H PRN Pain 04/13/24 11/06/24 (20 mg/mL) oral solution prochlorperazine maleate 10 mg 10 mg PO Q6H PRN Nausea And 04/13/24 11/06/24 tablet Vomiting ferrous sulfate 325 mg (65 mg 325 mg PO 3XWK 11/06/24 11/06/24 iron) tablet ondansetron HCl 8 mg tablet 8 mg PO Q8H PRN Nausea And Vomiting 11/06/24 11/06/24 Results & Data (ED) Vital Signs Vital Signs - 24 hr 11/06/24 15:07 11/06/24 16:28 11/06/24 16:45 Temperature 36.7 C Temperature Source Temporal Artery Scan Pulse Rate 71 55 L 60 Pulse Rate from SpO2 Sensor 59 L Pulse Rhythm Regular Pulse Strength Normal Respiratory Rate 18 19 Respiratory Effort / Characteristics Non-Labored Spontaneous Respiratory Depth Normal Respiratory Pattern Regular Blood Pressure 152/97 H 164/99 H Blood Pressure Mean 115 120 Blood Pressure Position Sitting Pulse Oximetry 98 100 Oxygen Delivery Method Room Air Room Air Sepsis Recent Fever Within 48 Hours No Sepsis New/Unexplained Change in Mental Status N/A Sepsis Action Taken by Nursing No Action Required 11/06/24 17:00 11/06/24 18:00 Temperature Temperature Source Pulse Rate 53 L 56 L Pulse Rate from SpO2 Sensor 53 L 56 L Pulse Rhythm Pulse Strength Respiratory Rate 15 18 Respiratory Effort / Characteristics Respiratory Depth Respiratory Pattern Blood Pressure 181/109 H 165/124 H Blood Pressure Mean 140 131 Blood Pressure Position Pulse Oximetry 100 100 Oxygen Delivery Method Room Air Room Air Sepsis Recent Fever Within 48 Hours Sepsis New/Unexplained Change in Mental Status Sepsis Action Taken by Nursing Laboratory Data 11/06/24 15:45 11/06/24 15:45 Lab Results 11/06/24 11/06/24 11/06/24 Range/Units 15:45 18:58 19:05 WBC 4.41 L (4.8-10.8) K/ul RBC 4.44 L (4.70-6.10) M/uL Hgb 13.7 L (14.0-18.0) g/dl Hct 38.6 L (42.0-52.0) % MCV 86.9 (80.0-100.0) fL MCH 30.9 (25.0-34.0) pg MCHC 35.5 (32.0-36.0) g/dL RDW Std Deviation 46.1 (36.4-46.3) fL RDW Coeff of Stone 14.4 (11.5-14.5) % Plt Count 224 (130-400) K/uL MPV 10.2 (9.4-12.4) fL Immature Gran % (Auto) 0.2 % Neut % (Auto) 78.3 % Lymph % (Auto) 13.4 % [place] % (Auto) 7.9 % Eos % (Auto) 0.0 % Baso % (Auto) 0.2 % Neut # (Auto) 3.45 (1.40-6.50) K/uL Lymph # (Auto) 0.59 L (1.20-3.40) K/uL [place] # (Auto) 0.35 (0.11-0.59) K/uL Eos # (Auto) 0.00 (0.00-0.50) K/uL Baso # (Auto) 0.01 (0.00-0.20) K/uL Immature Gran # (Auto) 0.01 (0.01-0.20) K/uL Sodium 138 (136-145) mmol/L Potassium 4.0 (3.5-5.1) mmol/L Chloride 102 (98-107) mmol/L Carbon Dioxide 27 (21-32) mmol/L Anion Gap 9 (3-11) BUN 8 (6-23) mg/dl Creatinine 0.80 (0.6-1.4) mg/dl Est Cr Clr Drug Dosing Not Reportable eGFR 101.32 BUN/Creatinine Ratio 10.0 (10-20) Glucose 124 H (70-99(Fasting)) mg/dl Calcium 9.7 (8.6-10.3) mg/dl Total Bilirubin 0.8 (0.2-1.0) mg/dl AST 32 (13-39) U/L ALT 28 (7-52) U/L Alkaline Phosphatase 67 (34-104) U/L Troponin I High Sens 3.5 (0-20) pg/ml Total Protein 7.3 (6.0-8.3) gm/dl Albumin 4.7 (3.4-5.0) gm/dl Globulin 2.6 (2.5-4.0) gm/dl Albumin/Globulin Ratio 1.8 (0.9-2) Lipase 404 H (11-82) U/L Urine Color Yellow Urine Appearance Clear (Clear) Urine pH 8.5 H (4.5-7.5) Ur Specific [place] 1.026 (1.000-1.030) Urine Protein Trace H (Negative) Urine Glucose (UA) Negative (Negative) Urine Ketones 2+ H (Negative) Urine Blood Negative (Negative) Urine Nitrite Negative (Negative) Urine Bilirubin Negative (Negative) Urine Urobilinogen Negative (Negative) Ur Leukocyte Esterase Negative (Negative) Urine WBC (Auto) 0-5 (0-5) /hpf Urine RBC (Auto) 0-2 (0-2) /hpf U Hyaline Cast (Auto) 0-2 (0-2) /lpf U Epithel Cells (Auto) 0-2 (0-2) /hpf Urine Bacteria (Auto) None Seen (None Seen) Administered Medications Sodium Chloride (Nss) 1,000 mls @ 999 mls/hr IV .Q1H1M ONE Stop: 11/06/24 20:37 Last Admin: 11/06/24 19:52 Dose: 999 mls/hr Documented By: CEF Piperacillin Sod/Tazobactam Sod (Zosyn) 4.5 gm in 100 mls @ 200 mls/hr IV NOW ONE; Protocol Stop: 11/06/24 20:06 Last Admin: 11/06/24 19:57 Dose: 200 mls/hr Documented By: CEF Discontinued Medications Hydromorphone HCl (Hydromorphone Inj 0.5 Mg/0.5 Ml Syr) 0.5 mg IV NOW STA Stop: 11/06/24 18:24 Last Admin: 11/06/24 19:05 Dose: 0.5 mg Documented By: CEF Hydromorphone HCl (Hydromorphone Inj 0.5 Mg/0.5 Ml Syr) 0.5 mg IV NOW STA Stop: 11/06/24 19:38 Last Admin: 11/06/24 19:50 Dose: 0.5 mg Documented By: CEF Sodium Chloride (Nss) 1,000 mls @ 999 mls/hr IV .Q1H1M ONE Stop: 11/06/24 17:45 Last Infusion: 11/06/24 18:08 Dose: Infused Documented By: Admin: 11/06/24 16:56 Dose: 999 mls/hr Documented By: MADELAINE Fosaprepitant 115 mg/ Sodium (Chloride) 115 mls @ 450 mls/hr IV ONE ONE Stop: 11/06/24 17:24 Last Infusion: 11/06/24 19:00 Dose: Infused Documented By: Admin: 11/06/24 18:07 Dose: 450 mls/hr Documented By: MADELAINE Ioversol (Optiray 320 100ml) 90 ml IV ONCE ONE Stop: 11/06/24 18:48 Last Admin: 11/06/24 18:47 Dose: 90 ml Documented By: ZAINA Ondansetron HCl (Ondansetron Inj 2 Mg/Ml 2 Ml Vial) 4 mg IV NOW STA Stop: 11/06/24 15:21 Last Admin: 11/06/24 15:49 Dose: 4 mg Documented By: [facility] Imaging Data Radiologist's Impression: Abdomen/Pelvis CT 11/06/24 18:13 Technique: Axial computed tomography images were obtained of the abdomen and pelvis after the administration of intravenous contrast. Comparison is made to the prior CT dated 10/08/2024. Findings: The liver is overall of normal size, attenuation, and contour with no sign of cirrhosis or significant fatty infiltration. There is a 5 mm cyst in the liver dome. No liver mass lesion is seen. The portal vein is patent. The gallbladder appears unremarkable. No bile duct dilatation is noted. The spleen is of normal size. No focal splenic lesion is evident. The pancreas appears normal with no sign of acute or chronic pancreatitis and no mass lesion noted. The pancreatic duct is of normal caliber. The adrenal glands appear unremarkable. No definite renal or proximal ureteral calculi are seen on this contrast-enhanced study. There is no hydronephrosis or perinephric stranding. No renal mass lesion is identified. The aorta is of normal caliber. No abdominal adenopathy is seen. There is a small hiatal hernia. Postsurgical changes are again seen of partial gastrectomy with gastrojejunostomy. There is no sign of small bowel obstruction. There is sigmoid diverticulosis with possible mild acute diverticulitis. No free intraperitoneal fluid is identified. There is a small amount of free pelvic fluid No distal ureteral or bladder calculi are seen. No bladder mass lesion is evident. The iliac arteries are of normal caliber. No pelvic adenopathy is noted. The prostate is mildly enlarged measuring 4.5 cm The lungs bases appear clear. Lumbar scoliosis and degenerative disc disease is seen. No fracture is identified. No focal osseous lesion is seen Impression: 1. Suspected acute diverticulitis of the sigmoid colon 2. Small amount of free pelvic fluid 3. Small hepatic cyst 4. Small hiatal hernia 5. Mildly enlarged prostate. Correlation with PSA levels may be useful Electronically signed by Blake Huynh 11-06-2024 7:21 PM Discharge Plan Visit Data Chief Complaint: Illness Stated Complaint: COMPLICATIONS AFTER CANCER ED Provider: Janet Kuhn Discharge Problem: Pancreatitis, Intractable nausea and vomiting, Acute diverticulitis Forms Stand Alone Forms: [employer] Dating by [employer] Prescriptions Prescriptions: No Action cyanocobalamin (vitamin B-12) [Vitamin B-12] 500 mcg Tablet 500 mcg PO DAILYBD cholecalciferol (vitamin D3) [Vitamin D3] 50 mcg (2,000 unit) Tablet 50 mcg PO DAILY olanzapine [Zyprexa] 5 mg tablet 5 mg PO HS pantoprazole 40 mg tablet,delayed release (DR/EC) 40 mg PO QAM escitalopram oxalate 10 mg tablet 10 mg PO QAM morphine concentrate 100 mg/5 mL (20 mg/mL) solution 10 mg PO Q4H PRN (Reason: Pain) Rx Instructions: 0.5 ML q4h prn prochlorperazine maleate 10 mg tablet 10 mg PO Q6H PRN (Reason: Nausea And Vomiting) lorazepam 0.5 mg tablet 0.5 mg PO Q6H PRN (Reason: Anxiety) folic acid 1 mg tablet 1 mg PO QDL aprepitant 80 mg capsule 80 mg PO DAILY PRN (Reason: Nausea And Vomiting) ondansetron HCl 8 mg tablet 8 mg PO Q8H PRN (Reason: Nausea And Vomiting) ferrous sulfate 325 mg (65 mg iron) Tablet 325 mg PO 3XWK Rx Instructions: Mon/Wed/Fri Referrals Referrals: Thaddeus Solis MD [Primary Care Provider] - Discharge Problem: Pancreatitis Qualifiers: Chronicity: acute Pancreatitis type: idiopathic Acute pancreatitis complication: no infection or necrosis Qualified Code(s): K85.00 - Idiopathic acute pancreatitis without necrosis or infection
[2024-11-06] MEDS: OPTIRAY 320 100ml IV ONE (18:47)
[2024-11-06] MEDS: HYDROmorphone INJ 0.5 MG/0.5 ML SYR IV STA ×2 (19:05→19:50)
--- NOTE | 2024-11-06 19:22 | CT Scan Report ---
Technique: Axial computed tomography images were obtained of the abdomen and pelvis after the administration of intravenous contrast. Comparison is made to the prior CT dated 10/08/2024. Findings: The liver is overall of normal size, attenuation, and contour with no sign of cirrhosis or significant fatty infiltration. There is a 5 mm cyst in the liver dome. No liver mass lesion is seen. The portal vein is patent. The gallbladder appears unremarkable. No bile duct dilatation is noted. The spleen is of normal size. No focal splenic lesion is evident. The pancreas appears normal with no sign of acute or chronic pancreatitis and no mass lesion noted. The pancreatic duct is of normal caliber. The adrenal glands appear unremarkable. No definite renal or proximal ureteral calculi are seen on this contrast-enhanced study. There is no hydronephrosis or perinephric stranding. No renal mass lesion is identified. The aorta is of normal caliber. No abdominal adenopathy is seen. There is a small hiatal hernia. Postsurgical changes are again seen of partial gastrectomy with gastrojejunostomy. There is no sign of small bowel obstruction. There is sigmoid diverticulosis with possible mild acute diverticulitis. No free intraperitoneal fluid is identified. There is a small amount of free pelvic fluid No distal ureteral or bladder calculi are seen. No bladder mass lesion is evident. The iliac arteries are of normal caliber. No pelvic adenopathy is noted. The prostate is mildly enlarged measuring 4.5 cm The lungs bases appear clear. Lumbar scoliosis and degenerative disc disease is seen. No fracture is identified. No focal osseous lesion is seen Impression: 1. Suspected acute diverticulitis of the sigmoid colon 2. Small amount of free pelvic fluid 3. Small hepatic cyst 4. Small hiatal hernia 5. Mildly enlarged prostate. Correlation with PSA levels may be useful Electronically signed by Blake Huynh 11-06-2024 7:21 PM
[2024-11-06 19:23] LABS: Appearance Urine Clear (Clear); Bacteria Urine Automated None Seen (None Seen); Bilirubin Urine Negative (Negative); Blood Urine Negative (Negative); Cast Urine Automated 0-2 /lpf (0-2); Color Urine Yellow; Epithelial Cell Urine Auto 0-2 /hpf (0-2); Glucose Urine UA Negative (Negative); Ketones Urine 2+ (Negative); Leukocyte Esterase Urine Negative (Negative); Nitrite Urine Negative (Negative); Protein Urine Trace (Negative); RBC Urine Automated 0-2 /hpf (0-2); Specific Gravity Urine 1.026 (1.000-1.030); Urobilinogen Urine Negative (Negative); WBC Urine Automated 0-5 /hpf (0-5); pH Urine 8.5 (4.5-7.5)
[2024-11-06] MEDS: PIPERACILLIN/TAZOBACTAM 4.5 GM/100 ML BAG IV ONE (19:57)
--- NOTE | 2024-11-06 20:36 | History & Physical Report ---
Date of Service November 06, 2024 Assessment & Plan (1) Acute diverticulitis: Plan: Continue IV Zosyn Bowel rest Consult GI (2) Pancreatitis: Plan: Patient was given Dilaudid in the ED with good results. Will continue IV Dilaudid as needed for severe pain Continue his home oral morphine sulfate as needed Continue IV fluids N.p.o. except meds, advance diet as tolerated Consult GI (3) Intractable nausea and vomiting: Plan: Continue Zofran and Emend Continue PPI (4) Anemia: Plan: Hemoglobin is stable at present Trend labs Patient is a full code Lovenox for VTE prophylaxis History of Present Illness Chief Complaint: Abdominal pain, nausea and vomiting Primary Care Provider: Thaddeus Solis MD Edward Yoder (Alan) is a 59-year-old male with past medical history significant for esophageal/gastric cancer status post neoadjuvant chemotherapy/surgery, surgery consisted of total gastrectomy and trevin-en-Y esophagojejunal anastomosis, chronic anemia (baseline hemoglobin 12-13), history trigeminal neuralgia status post surgery and past tobacco abuse. He presents to the ED this evening with his spouse with epigastric pain, nausea and vomiting x 12hrs starting this AM. He denies hematemesis, melena, hematochezia. He denies fever or chills. No unusual food or drink intake. No one else is ill in the family. Workup in the ED reveals evidence of sigmoid diverticulitis on the CT scan. He has a mildly elevated lipase. Patient was given Dilaudid, Zofran and Emend in the ED with good relief of his symptoms. He was started on IV Zosyn. Patient seems to be dry. He was given IV fluids. Patient is referred for admission and workup. Allergies Allergy/AdvReac Type Severity Reaction Status Date / Time carbamazepine [From Tegretol] Allergy Mild Rash Verified 11/06/24 17:13 Home Medications Medication Instructions Recorded Confirmed Type escitalopram oxalate 10 mg tablet 10 mg PO QAM 12/22/23 11/06/24 History olanzapine 5 mg tablet (Zyprexa) 5 mg PO HS 12/22/23 11/06/24 History pantoprazole 40 mg tablet,delayed 40 mg PO QAM Heartburn 12/22/23 11/06/24 History release cholecalciferol (vitamin D3) 50 50 mcg PO DAILY 02/13/24 11/06/24 History mcg (2,000 unit) tablet (Vitamin D3) cyanocobalamin (vitamin B-12) 500 500 mcg PO DAILYBD 02/13/24 11/06/24 History mcg tablet (Vitamin B-12) aprepitant 80 mg capsule 80 mg PO DAILY PRN Nausea And 04/13/24 11/06/24 History Vomiting folic acid 1 mg tablet 1 mg PO QDL 04/13/24 11/06/24 History lorazepam 0.5 mg tablet 0.5 mg PO Q6H PRN Anxiety 04/13/24 11/06/24 History morphine concentrate 100 mg/5 mL 10 mg PO Q4H PRN Pain 04/13/24 11/06/24 History (20 mg/mL) oral solution prochlorperazine maleate 10 mg 10 mg PO Q6H PRN Nausea And 04/13/24 11/06/24 History tablet Vomiting ferrous sulfate 325 mg (65 mg 325 mg PO 3XWK 11/06/24 11/06/24 History iron) tablet ondansetron HCl 8 mg tablet 8 mg PO Q8H PRN Nausea And Vomiting 11/06/24 History Past Med/Surg History Problem List (Updated 11/06/24 @ 20:01 by Janet Kuhn MD) Acute diverticulitis (Acute) Pancreatitis (Acute) Intractable nausea and vomiting (Acute) Medical History Intractable nausea and vomiting History of esophageal cancer Severe malnutrition Anemia Esophageal cancer diagnosed 04/2023--chemo/ERCP 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 Edmonds/[facility] [place] Eduardo History of recent blood transfusion 05/02/23 @ [facility] Enteropathogenic Escherichia coli infection Hyponatremia Trigeminal neuralgia Hypomagnesemia Vomiting and diarrhea Iron deficiency received blood transfusion 05/02/23 @ [facility] Surgical History History of colonoscopy History of esophagogastroduodenoscopy (EGD) History of tooth extraction partial upper and lower denture History of ERCP 04/2023 @ [facility] – [place] Eduardo History of vascular access device A port--power port in placed on right side of chest Family History Father Stroke Social History Smoking Status: Never smoker Tobacco Type: Cigarettes Second Hand Exposure: No; Do You Dip or Chew Tobacco: No; Hx Alcohol Use: Yes Alcohol type: beer Hx Substance Use: Yes Last Used Substance: Days (ago) Preferred Language: Luxembourgish Communication Ability: Effective Brass Pourer Required: No Beliefs That Will Affect Care: None marital status: Current Living Situation: Spouse Feels Safe at Home: Yes Assistive Devices: None Review of Systems Review of Systems: Constitutional- no fever; some weight loss Eyes- no acute visual changes ENT- no sinus drainage; no pharyngitis Pulmonary- no cough, no wheezing, no shortness of breath Cardiac- no chest pain, no palpitations, no orthopnea, no dependent edema GI- pos nausea, pos vomiting, no diarrhea, no melena, no hematochezia, epigastric pain - no dysuria, no hematuria Musculoskeletal- no arthralgias, no myalgias Derm- no rashes, no new skin lesions, no changing skin lesions Hematologic- no unusual bruising, no unusual bleeding Lymphatics- no adenopathy Endocrine- no polyuria or polydipsia; no heat or cold intolerance Neuro- no headaches, no focal neurologic symptoms Psych- no anxiety, no depression Physical Exam Physical Exam: General- adult male seen at bedside, thin, chronic ill appearance, long yepez oliver Head- atraumatic Eyes- PERRL, EOMI, anicteric ENT- oropharynx clear Neck- supple, no JVD, no adenopathy, no thyromegaly; carotids +2/2, no bruits appreciated Lungs- clear to auscultation and percussion Heart- regular rhythm; no murmur, no gallop, no rub appreciated Abdomen-tender in the epigastric area, surprisingly no tenderness in the left lower quadrant, no masses or hepatomegaly noted. Scant bowel sounds noted. Extremities- no pretibial edema, no calf tenderness; peripheral pulses intact Neuro- alert, oriented x 3; PERRL, EOMI; no facial palsy; no dysarthria; motor 5/5 bilaterally; Skin- warm & dry Results & Data Results & Data Vital Signs (Past 12 Hours) Vital Signs Temp Pulse Resp BP Pulse Ox O2 Del Method 11/06/24 20:26 53 L 11/06/24 18:00 56 L 18 165/124 H 100 Room Air 11/06/24 17:00 53 L 15 181/109 H 100 Room Air 11/06/24 16:45 60 19 164/99 H 100 Room Air 11/06/24 16:28 55 L 11/06/24 15:07 36.7 C 71 18 152/97 H 98 Room Air Diagnostic Findings Laboratory Results WBC 4.41 K/ul (4.8-10.8) L 11/06/24 15:45 RBC 4.44 M/uL (4.70-6.10) L 11/06/24 15:45 Hgb 13.7 g/dl (14.0-18.0) L 11/06/24 15:45 Hct 38.6 % (42.0-52.0) L 11/06/24 15:45 MCV 86.9 fL (80.0-100.0) 11/06/24 15:45 MCH 30.9 pg (25.0-34.0) 11/06/24 15:45 MCHC 35.5 g/dL (32.0-36.0) 11/06/24 15:45 RDW Std Deviation 46.1 fL (36.4-46.3) 11/06/24 15:45 RDW Coeff of Stone 14.4 % (11.5-14.5) 11/06/24 15:45 Plt Count 224 K/uL (130-400) 11/06/24 15:45 MPV 10.2 fL (9.4-12.4) 11/06/24 15:45 Immature Gran % (Auto) 0.2 % 11/06/24 15:45 Neut % (Auto) 78.3 % 11/06/24 15:45 Lymph % (Auto) 13.4 % 11/06/24 15:45 Gosper % (Auto) 7.9 % 11/06/24 15:45 Eos % (Auto) 0.0 % 11/06/24 15:45 Baso % (Auto) 0.2 % 11/06/24 15:45 Neut # (Auto) 3.45 K/uL (1.40-6.50) 11/06/24 15:45 Lymph # (Auto) 0.59 K/uL (1.20-3.40) L 11/06/24 15:45 Gosper # (Auto) 0.35 K/uL (0.11-0.59) 11/06/24 15:45 Eos # (Auto) 0.00 K/uL (0.00-0.50) 11/06/24 15:45 Baso # (Auto) 0.01 K/uL (0.00-0.20) 11/06/24 15:45 Immature Gran # (Auto) 0.01 K/uL (0.01-0.20) 11/06/24 15:45 Sodium 138 mmol/L (136-145) 11/06/24 15:45 Potassium 4.0 mmol/L (3.5-5.1) 11/06/24 15:45 Chloride 102 mmol/L (98-107) 11/06/24 15:45 Carbon Dioxide 27 mmol/L (21-32) 11/06/24 15:45 Anion Gap 9 (3-11) 11/06/24 15:45 BUN 8 mg/dl (6-23) 11/06/24 15:45 Creatinine 0.80 mg/dl (0.6-1.4) 11/06/24 15:45 Est Cr Clr Drug Dosing Not Reportable 11/06/24 15:45 eGFR 101.32 11/06/24 15:45 BUN/Creatinine Ratio 10.0 (10-20) 11/06/24 15:45 Glucose 124 mg/dl (70-99(Fasting)) H 11/06/24 15:45 Calcium 9.7 mg/dl (8.6-10.3) 11/06/24 15:45 Total Bilirubin 0.8 mg/dl (0.2-1.0) 11/06/24 15:45 AST 32 U/L (13-39) 11/06/24 15:45 ALT 28 U/L (7-52) 11/06/24 15:45 Alkaline Phosphatase 67 U/L (34-104) 11/06/24 15:45 Troponin I High Sens 3.5 pg/ml (0-20) 11/06/24 19:05 Total Protein 7.3 gm/dl (6.0-8.3) 11/06/24 15:45 Albumin 4.7 gm/dl (3.4-5.0) 11/06/24 15:45 Globulin 2.6 gm/dl (2.5-4.0) 11/06/24 15:45 Albumin/Globulin Ratio 1.8 (0.9-2) 11/06/24 15:45 Lipase 404 U/L (11-82) H 11/06/24 15:45 Urine Color Yellow 11/06/24 18:58 Urine Appearance Clear (Clear) 11/06/24 18:58 Urine pH 8.5 (4.5-7.5) H 11/06/24 18:58 Ur Specific Isabela 1.026 (1.000-1.030) 11/06/24 18:58 Urine Protein Trace (Negative) H 11/06/24 18:58 Urine Glucose (UA) Negative (Negative) 11/06/24 18:58 Urine Ketones 2+ (Negative) H 11/06/24 18:58 Urine Blood Negative (Negative) 11/06/24 18:58 Urine Nitrite Negative (Negative) 11/06/24 18:58 Urine Bilirubin Negative (Negative) 11/06/24 18:58 Urine Urobilinogen Negative (Negative) 11/06/24 18:58 Ur Leukocyte Esterase Negative (Negative) 11/06/24 18:58 Urine WBC (Auto) 0-5 /hpf (0-5) 11/06/24 18:58 Urine RBC (Auto) 0-2 /hpf (0-2) 11/06/24 18:58 U Hyaline Cast (Auto) 0-2 /lpf (0-2) 11/06/24 18:58 U Epithel Cells (Auto) 0-2 /hpf (0-2) 11/06/24 18:58 Urine Bacteria (Auto) None Seen (None Seen) 11/06/24 18:58 Impressions Abdomen/Pelvis CT 11/06/24 18:13 Technique: Axial computed tomography images were obtained of the abdomen and pelvis after the administration of intravenous contrast. Comparison is made to the prior CT dated 10/08/2024. Findings: The liver is overall of normal size, attenuation, and contour with no sign of cirrhosis or significant fatty infiltration. There is a 5 mm cyst in the liver dome. No liver mass lesion is seen. The portal vein is patent. The gallbladder appears unremarkable. No bile duct dilatation is noted. The spleen is of normal size. No focal splenic lesion is evident. The pancreas appears normal with no sign of acute or chronic pancreatitis and no mass lesion noted. The pancreatic duct is of normal caliber. The adrenal glands appear unremarkable. No definite renal or proximal ureteral calculi are seen on this contrast-enhanced study. There is no hydronephrosis or perinephric stranding. No renal mass lesion is identified. The aorta is of normal caliber. No abdominal adenopathy is seen. There is a small hiatal hernia. Postsurgical changes are again seen of partial gastrectomy with gastrojejunostomy. There is no sign of small bowel obstruction. There is sigmoid diverticulosis with possible mild acute diverticulitis. No free intraperitoneal fluid is identified. There is a small amount of free pelvic fluid No distal ureteral or bladder calculi are seen. No bladder mass lesion is evident. The iliac arteries are of normal caliber. No pelvic adenopathy is noted. The prostate is mildly enlarged measuring 4.5 cm The lungs bases appear clear. Lumbar scoliosis and degenerative disc disease is seen. No fracture is identified. No focal osseous lesion is seen Impression: 1. Suspected acute diverticulitis of the sigmoid colon 2. Small amount of free pelvic fluid 3. Small hepatic cyst 4. Small hiatal hernia 5. Mildly enlarged prostate. Correlation with PSA levels may be useful Electronically signed by Blake Huynh 11-06-2024 7:21 PM Medications Administered Current Inpatient Medications Sodium Chloride (Nss) 1,000 mls @ 999 mls/hr IV .Q1H1M ONE Stop: 11/06/24 20:37 Last Admin: 11/06/24 19:52 Dose: 999 mls/hr (2) Pancreatitis Acute pancreatitis complication: no infection or necrosis Chronicity: acute Pancreatitis type: idiopathic Qualified Code(s): K85.00 - Idiopathic acute pancreatitis without necrosis or infection
[2024-11-06] MEDS ORDERED: APREPITANT 80 MG CAP PO PRN (22:19)
[2024-11-06] MEDS ORDERED: POLYETHYLENE (MIRALAX) 17 GM PACK PO PRN (22:19)
[2024-11-06] MEDS ORDERED: MoRPHine SULFATE 10 MG/0.5 ML UDP PO PRN (22:19)
[2024-11-06] MEDS ORDERED: PROCHLORPERAZINE MALEATE 10 MG TAB PO PRN (22:19)
[2024-11-06] MEDS ORDERED: MAGNESIUM HYDROXIDE SUSP 30 ML UDC PO PRN (22:19)
[2024-11-06] MEDS ORDERED: LORazepam 0.5 MG TAB PO PRN (22:19)
[2024-11-06] MEDS ORDERED: ACETAMINOPHEN 325 MG TAB PO PRN (22:19)
[2024-11-06] MEDS ORDERED: ONDANSETRON INJ 2 MG/ML 2 ML VIAL IV PRN (22:19)
[2024-11-06] MEDS ORDERED: MELATONIN 3 MG TAB PO PRN (22:19)
[2024-11-06] MEDS ORDERED: ONDANSETRON 8MG OD TAB PO PRN (22:52)
[2024-11-06] MEDS: PLASMA-LYTE A 1,000 ML IV SCH (23:28)
[2024-11-06] MEDS: ENOXAPARIN INJ 40 MG/0.4 ML SYR SQ SCH (23:28)
[2024-11-06] MEDS: OLANZapine 5 MG TABLET PO SCH (23:28)
[2024-11-07] MEDS: PIPERACILLIN/TAZOBACTAM 4.5 GM/100 ML BAG IV SCH (02:06)
[2024-11-07] MEDS: HYDROmorphone INJ 1 MG/ML SYRINGE IV PRN (02:06)
--- OUTSIDE RECORDS SUMMARY | 2024-11-07 06:25 | External Medical Summary | Summary of Care ---
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 Follow up with your primary care provider for further management. 30 Capsule 4 11:25 AM EST 09/29/19 24 Active Scopolamine 1 MG/3DAYS Transdermal Patch 72 [...] 02/23/20 24 Active Multivitamin Adult Oral Tablet ChewableIndicati ons:Severe malnutrition (HCC) Take 1 Tablet by mouth daily. 02/23/20 24 Active Aprepitant 80 MG Oral Capsule (Emend) Take 1 Capsule by mouth daily as needed for Nausea. 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 (Adult - for ages 18 years and over) Not on file 09/26/2023 READ ONLY Do you think you [...] ages 0-17 years) Not on file 09/26/2023 Food Insecurity Answer Date Recorded Worried About Running Out of Food in the Last Ye ar Not on file 09/26/2023 Ran Out of Food in the Last Year Not on file 09/26/2023 Do you need food for this week? 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 file Not on file Not [...] Telephone Encounter - Ophelia Solis MD - 11/02/2024 4:51 PM EDTSigned Prescriptions: Disp Refills LORazepam 0.5 MG Oral Tablet (Ativan) 30 Tab*0 Sig: TAKE 1 TABLET BY MOUTH EVERY 6 HOURS NEEDED for anxiety or sleep Authorizing Provider: OPHELIA SOLIS Prochlorperazine Maleate 10 MG Oral Tablet*30 Tab*0 Sig: TAKE ONE TABLET BY MOUTH EVERY 6 HOURS NEEDED FOR NAUSEA Authorizing Provider: OPHELIA SOLIS * Telephone Encounter - Tegan Hough [facility] - 11/02/2024 7:20 AM EDT Pending Prescriptions: Disp Refills LORazepam 0.5 MG Oral Tablet [Pharmacy Med*30 Tab*0 Sig: TAKE 1 TABLET BY MOUTH EVERY 6 HOURS NEEDED for anxiety or sleep Prochlorperazine Maleate 10 MG Oral Tablet*30 Tab*0 Sig: TAKE ONE TABLET BY MOUTH EVERY 6 HOURS NEEDED FOR NAUSEA * Telephone Encounter - Tegan Hough RP - 11/02/2024 7:18 AM EDT I have reviewed the patients controlled substance dispensing history in the Prescription Drug Monitoring Program in compliance with the [facility] regulations before prescribing a controlled substance. PDMP checked on 11/02/2024. Pending Prescriptions: Disp Refills LORazepam 0.5 MG Oral Tablet (Ativan) [Ph*30 Tab*0 Sig: TAKE 1 TABLET BY MOUTH EVERY 6 HOURS NEEDED for anxiety or sleep Last Visit: Visit date not found (in office), Visit date not found (telemedicine) Next Visit: Visit date not found Date medication was last filled: 10/12/24 Date medication is due for refill: 10/18/24 Pharmacy: [id number] Is this request for a controlled substance? Yes and Urine Drug Screen Not completed Toxicology results: No results found for this or any previous visit. Please approve if appropriate. Thank you, Tegan Hough, PharmD Clinical Pharmacist [facility] ([facility]) [phone] 11/02/2024, 7:19 AM documented in this encounter Plan of Treatment Upcoming Encounters Date Type Department Care Team (Late st Contact Info) Description 11/15/2024 10:00 AM EDT Nurse Only Hematology/Oncology Treatment, [place] [address] [place] [phone] Sandra, Chair 8 Hem Onc [facility] [address] [facility] [facility] [phone] 03/05/2025 9:15 AM EDT Imaging Radiology [facility]st [facility] [address] [place] [phone] 03/12/2025 9:30 AM EDT Office Visit Hematology/Oncology [facility] [place] [address] [place] [id number] Cipriano Kuhn MD [address] [place] [address] Scheduled Procedures Name Priority Associated Diagnoses Date/Ti me COLONOSCOPY FLEXIBLE PROXIMA L DIAGNOSTIC Recall History of colonic polyps Health Maintenance Due Date Last Done Comments Cologuard 2009 Fecal Occult Blood Test 2009 Sigmoidoscopy 2009 Pneumococcal Vaccine: 50+ Years (1 of 1 - PCV) 2014 Zoster Vaccines (1 of 2) 2014 Depression Screening 12/21/2018 12/21/2017 Lipid Panel 04/19/2019 04/19/2014 DTap/Tdap Vaccines (2 - Td o r Tdap) 08/29/2020 08/29/2010 COVID-19 Vaccine (3 - 2023-2 5 season) 2024 04/10/2021, 03/19/2021 Influenza Vaccine (FLU shot) (#1) 2024 Colonoscopy 03/30/2033 03/30/2023, 03/30/2023 Colorectal Cancer Screening 03/30/2033 HPV (Gardasil) Vaccine Aged Out No lo nger eligible based on patient's age to complete this topic Hepatitis B Vaccine Discontinued MENINGOCOCCAL (MENACTRA/MENVEO) Aged Out No longer eligible based on patient's age to complete this topic Meningitis B Vaccine (Bexsero/Trumemba) Aged Out No longer eligible based on patient's age to complete this topic documented as of this encounter Medical Devices Implanted Type Area Joint Setter Device Identifier Shelf Expiration Date Model / Serial / Lot Cement Hydroset Injectable 5cc - [id number] Implanted:Qty : 1 on 03/15/2018 [place]ak [place] [facility] [place] JOHN 11/09/2019 [id number] / / [id number] Needle Fiducial 22ga - [id number] Implanted:Qty : 1 on 04/01/2023 by Karson Goddard [place] [facility] [place] Esophagus GIVEN IMAGING [id number] 01/12/2025 [id number]-22-01 / / [id number] Stent Wallf Esoph 23/[id number] - [id number] Implanted:Qty : 1 on 04/01/2023 by Karson Goddard MD [place] [facility] [place]: Esophagus [employer] : ENDOSCOPY [id number] 09/09/2024 [id number] / / [id number] Power Port 8fr Sngl Lumen Plas - [id number] Implanted:Qty : 1 on 04/19/2023 by Ophelia Brown DO at OR [facility] Right: Chest CR BARD : PERIPHERAL VASCULAR [id number] 06/14/2024 [id number] / / [id number] documented as of this encounter Visit Diagnoses Diagnosis 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 No Care Teams Printer Floor Covering Assistant Relationship Specialty Start Date End Date Ophelia Solis MD PCP - General Family Medicine 09/12/23 documented as of this encounter
--- OUTSIDE RECORDS SUMMARY | 2024-11-07 06:25 | External Medical Summary | Summary of Care ---
Author Name Unknown Organization [facility] Address [address] [place] [address] Phone [phone] Care Team Providers Care Auto Dealership Porter Name Role Phone Ophelia Solis MD Primary Care Provider [phone] Reason for Visit * Reason Comments eRx-Medication Refill Encounter Details Date Type Department Care Team (Late st Contact Info) Description 10/10/[address] 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 on file 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 on 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 - 10/12/2024 8:55 AM ESTPending Prescriptions: Disp Refills LORazepam 0.5 MG Oral Tablet [Pharmacy Med*30 Tab*0 Sig: TAKE ONE TABLET BY MOUTH EVERY 6 HOURS NEEDED FOR ANXIETY OR SLEEP * Telephone Encounter - Julita Holloway RP - 10/12/2024 8:54 AM EST I have reviewed the patients controlled substance dispensing history in the Prescription Drug Monitoring Program in compliance with the [facility] regulations before prescribing a controlled substance. PDMP checked on 10/12/2024. Pending Prescriptions: Disp Refills LORazepam 0.5 MG Oral Tablet (Ativan) [Ph*30 Tab*0 Sig: TAKE ONE TABLET BY MOUTH EVERY 6 HOURS NEEDED FOR ANXIETY OR SLEEP Last Visit: Visit date not found (in office), Visit date not found (telemedicine) Next Visit: Visit date not found Date medication was last filled: 09/18 Date medication is due for refill: 09/25 Pharmacy: [id number] Is this request for a controlled substance? Yes and Urine Drug Screen Not completed Toxicology results: No results found for this or any previous visit. Please approve if appropriate. Thanks, Julita Holloway, PharmD Clinical Pharmacist [facility] ([facility]) [phone] 10/12/2024 8:54 AM documented in this encounter Plan of Treatment Upcoming Encounters Date Type Department Care Team (Late st Contact Info) Description 11/15/2024 10:00 AM EDT Nurse Only Hematology/Oncology Treatment, [place] [address] [place] [address] Sandra, Chair 8 Hem Onc [facility] [address] [facility] [address] 03/05/2025 9:15 AM EDT Imaging Radiology [address] [facility] [address] [place] [address] 03/12/2025 9:30 AM EDT Office Visit Hematology/Oncology [facility] [place] [address] [facility] [place] [address] Cipriano Kuhn MD [address] [place] [address] Scheduled Procedures Name Priority Associated Diagnoses Date/Ti [...] this encounter Medical Devices Implanted Type Area Engineering Inspector Device Identifier Shelf Expiration Date Model / Serial / Lot Cement Hydroset Injectable 5cc - [id number] Implanted:Qty : 1 on 03/15/2018 [place]ak Khoury [place] [facility] [place]: Head JOHN 11/09/2019 [id number] / / [id number] 37 Needle Fiducial 22ga - [id number] Implanted:Qty : 1 on 04/01/2023 by Karson Goddard MD [place] [facility] [place]A: Esophagus GIVEN IMAGING [id number] 01/12/2025 [id number] / / [id number] Stent Wallf Esoph 23/56ves26qg - [id number] Implanted:Qty : 1 on 04/01/2023 by Karson Goddard MD [place] [facility] [place]A: Esophagus [employer] : ENDOSCOPY [id number] 09/09/2024 [id number] / / [id number] Power Port 8fr Sngl Lumen Plas - [id number] Implanted:Qty : 1 on 04/19/2023 by Ophelia Brown DO at [facility] Right: Chest CR BARD : PERIPHERAL VASCULAR [id number] 06/14/2024 [id number] / / [id number] documented as of this encounter Visit Diagnoses [...] Power of Attor yves? No Care Teams Auto Dealership Porter Relationship Specialty Start Date End Date Ophelia Solis MD PCP - General Family Medicine 09/12/23 documented as of this encounter
[2024-11-07 07:25] VITALS: RESP 18
[2024-11-07 08:43] LABS: Albumin Level 3.3 gm/dl (3.4-5.0); BUN Creatinine Ratio 12.3 (10-20); Bilirubin Direct 0.1 mg/dl (0-0.2); Bilirubin,Total 0.7 mg/dl (0.2-1.0); Calcium 7.9 mg/dl (8.6-10.3); Creatinine Clr Calc Pharmacy 97.1 ml/min; Magnesium 1.8 mg/dl (1.7-2.4); Potassium 3.8 mmol/L (3.5-5.1); Total Protein 5.1 gm/dl (6.0-8.3)
[2024-11-07] MEDS: CHOLECALCIFEROL 25 MCG (1000 UNITS) TAB PO SCH (09:05)
[2024-11-07] MEDS: PANTOprazole 40 MG TAB PO SCH (09:05)
[2024-11-07] MEDS: ESCITALOPRAM OXALATE 10 MG TAB PO SCH (09:05)
[2024-11-07] MEDS: FERROUS SULFATE 325 MG TAB PO SCH (09:06)
[2024-11-07 09:36] LABS: Hematocrit (blood only) 30.9 % (42.0-52.0); Hemoglobin 10.6 g/dl (14.0-18.0); Mean Corpuscular Hemoglobin 30.5 pg (25.0-34.0); Mean Corpuscular Hgb Conc 34.3 g/dL (32.0-36.0); Mean Corpuscular Volume 88.8 fL (80.0-100.0); Mean Platelet Volume 9.8 fL (9.4-12.4); Platelet Count 153 K/uL (130-400); RDW Coefficient of Variation 14.8 % (11.5-14.5); RDW Standard Deviation 48.3 fL (36.4-46.3); Red Blood Count 3.48 M/uL (4.70-6.10)
--- NOTE | 2024-11-07 09:41 | Gastrointestinal Consultation ---
Date of Consultation November 07, 2024 Assessment & Plan (1) Acute diverticulitis: -Continue IV Zosyn for now; would plan for 10 days of antibiotic therapy with subsequent follow-up with his GI team at [facility] to determine the need for follow-up colonoscopy once recovered. -Advance to liquid diet -Avoid constipation -His lipase is 61 today--was >400 yesterday; He clarifies that he has had no epigastric pain (just nausea/dry heaving). He does not have imaging findings of pancreatitis. Based on the Reema criteria, he doesn't fit a diagnosis of pancreatitis and the lipase was possibly reactive to his dry heaving. Either way, he has been given fluids & has been NPO and feels better from a nausea st andpoint. Can proceed with a liquid diet. Supervising Physician Co-Signing Physician Notes 59-year-old gentleman with previous history of total gastrectomy. 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 He comes in now with currently acute onset of nausea vomiting he has left lower quadrant pain reminiscent of previous bouts of diverticulitis. CT scan does show acute sigmoid diverticulitis. He believes he had a colonoscopy in the last 2 years at the same time his esophageal cancer was diagnosed. He had some polyps removed he believes he was to return in 5 years. Patient does not appear acutely toxic or ill at present. He is sitting up in bed. The abdomen is relatively benign though he did recently receive pain medication. Bowel sounds are present. No masses guarding rebound present. Lipase 400 by itself this not diagnosed pancreatitis. Acutely should have a pain pattern and/or radiographical changes to make diagnosis. Usually 2 out of 3 necessary. At this point I would treat as diverticulitis. 10 days of antibiotics. I think he should follow-up then with his prepared foods associate to review his previous colonoscopy polyp results and decide on timing of future colonoscopy. With acute diverticulitis if there is been a good colonoscopy with good prep in the last 1 to 2 years a repeat colonoscopy could be avoided. History of Present Illness Reason for Consultation: Pancreatitis, Diverticulitis Attending Physician: Beni Leon MD History of Present Illness Patient is a 59 yo male with PMH of esophageal/gastric cancer s/p neoadjuvant chemotherapy/surgery. He had a total gastrectomy/trevin-en-Y esophagojejunal anastomosis, chronic anemia, history of trigeminal neuralgia. Patient presented to the ED yesterday due to abdominal pain, nausea, & vomiting. It was previously recorded that he had epigastric pain, but he clarifies that he did not have pain in the epigastrum--he felt nauseated and was dry heaving but did have pain in the lower abdomen. He had a CT scan of the abdomen/pelvis that noted the following: Impression: 1. Suspected acute diverticulitis of the sigmoid colon 2. Small amount of free pelvic fluid 3. Small hepatic cyst 4. Small hiatal hernia 5. Mildly enlarged prostate. Correlation with PSA levels may be useful No pancreatitis was noted on imaging. Patient is currently on IV Zosyn. He is NPO. He notes some improvement of his left sided pain. He denies constipation. He notes a colonoscopy within the past 5 years at [facility]. He denies rectal bleeding. Allergies Allergy/AdvReac Type Severity Reaction Status Date / Time carbamazepine [From Tegretol] Allergy Mild Rash Verified 11/06/24 17:13 Home Medications Medication Instructions Recorded Confirmed Type escitalopram oxalate 10 mg tablet 10 mg PO QAM 12/22/23 11/06/24 History olanzapine 5 mg tablet (Zyprexa) 5 mg PO HS 12/22/23 11/06/24 History pantoprazole 40 mg tablet,delayed 40 mg PO QAM Heartburn 12/22/23 11/06/24 History release cholecalciferol (vitamin D3) 50 50 mcg PO DAILY 02/13/24 11/06/24 History mcg (2,000 unit) tablet (Vitamin D3) cyanocobalamin (vitamin B-12) 500 500 mcg PO DAILYBD 02/13/24 11/06/24 History mcg tablet (Vitamin B-12) aprepitant 80 mg capsule 80 mg PO DAILY PRN Nausea And 04/13/24 11/06/24 History Vomiting folic acid 1 mg tablet 1 mg PO QDL 04/13/24 11/06/24 History lorazepam 0.5 mg tablet 0.5 mg PO Q6H PRN Anxiety 04/13/24 11/06/24 History morphine concentrate 100 mg/5 mL 10 mg PO Q4H PRN Pain 04/13/24 11/06/24 History (20 mg/mL) oral solution prochlorperazine maleate 10 mg 10 mg PO Q6H PRN Nausea And 04/13/24 11/06/24 History tablet Vomiting ferrous sulfate 325 mg (65 mg 325 mg PO 3XWK 11/06/24 11/06/24 History iron) tablet ondansetron HCl 8 mg tablet 8 mg PO Q8H PRN Nausea And Vomiting 11/06/24 11/06/24 History Patient History Medical History Intractable nausea and vomiting History of esophageal cancer Severe malnutrition Anemia Esophageal cancer diagnosed 04/2023--chemo/ERCP 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 Edmonds/[facility] Eduardo History of recent blood transfusion 05/02/23 @ [facility] Enteropathogenic Escherichia coli infection Hyponatremia Trigeminal neuralgia Hypomagnesemia Vomiting and diarrhea Iron deficiency received blood transfusion 05/02/23 @ [facility] Surgical History History of colonoscopy History of esophagogastroduodenoscopy (EGD) History of tooth extraction partial upper and lower denture History of ERCP 04/2023 @ [facility] Eduardo History of vascular access device A port--power port in placed on right side of chest Family History Father Stroke Social History Smoking Status: Never smoker Tobacco Type: Cigarettes Second Hand Exposure: No; Do You Dip or Chew Tobacco: No; Hx Alcohol Use: Yes Alcohol type: beer Hx Substance Use: Yes Last Used Substance: Days (ago) Preferred Language: Israeli Communication Ability: Effective Plant Utilities Engineer Required: No Beliefs That Will Affect Care: None marital status: Current Living Situation: Spouse Feels Safe at Home: Yes Assistive Devices: None Review of Systems Constitutional: no fever and no chills Respiratory: no cough and no dyspnea Cardiovascular: no chest pain Gastrointestinal: + abdominal pain; no change in bowel hab its Physical Exam Constitutional: well developed Respiratory: normal respiratory effort Gastrointestinal (Abdomen): Inspection/Auscultation: abdomen normal to ins pection and normal bowel sounds Percussion/Palpation: + abdomen tender Results & Data Vital Signs (Past 12 Hours) Vital Signs Temp Pulse Pulse Resp BP Pulse Ox O2 Del Method 11/07/24 07:24 36.7 C 48 L 18 105/70 97 Room Air 11/06/24 23:57 Room Air 11/06/24 22:39 36.8 C 68 16 110/64 97 Room Air 11/06/24 22:19 36.8 C 68 16 110/64 97 Room Air 11/06/24 21:54 54 L 14 96/59 L 96 Room Air PG Care Time/CCT Total # of Minutes Spent Total Time Spent with Patient: Total time spent is greater than 50% in coordination of care (as documented) at patient's floor/unit and/or counseling patient: Coding Level of Care Code 19364 OFFICE CONSULT LVL Diagnoses Acute diverticulitis K57.92
[2024-11-07] MEDS: FOLIC ACID 1 MG TAB PO SCH (11:41)
[2024-11-07] MEDS: CYANOCOBALAMIN (B-12) 500 MCG TABLET PO SCH (15:26)
--- NOTE | 2024-11-07 15:32 | Discharge Summary ---
Date of Service November 07, 2024 Admission HPI Per Admitting Provider Edward Zhengdanika Yoder is a 59-year-old male with past medical history significant for esophageal/gastric cancer status post neoadjuvant chemotherapy/surgery, surgery consisted of total gastrectomy and trevin-en-Y esophagojejunal anastomosis, chronic anemia (baseline hemoglobin 12-13), history trigeminal neuralgia status post surgery and past tobacco abuse. He presents to the ED this evening with his spouse with epigastric pain, nausea and vomiting x 12hrs starting this AM. He denies hematemesis, melena, hematochezia. He denies fever or chills. No unusual food or drink intake. No one else is ill in the family. Workup in the ED reveals evidence of sigmoid diverticulitis on the CT scan. He has a mildly elevated lipase. Patient was given Dilaudid, Zofran and Emend in the ED with good relief of his symptoms. He was started on IV Zosyn. Patient seems to be dry. He was given IV fluids. Patient is referred for admission and workup. Admission Exam Per Admitting Provider General- adult male seen at bedside, thin, chronic ill appearance, long yepez oliver Head- atraumatic Eyes- PERRL, EOMI, anicteric ENT- oropharynx clear Neck- supple, no JVD, no adenopathy, no thyromegaly; carotids +2/2, no bruits appreciated Lungs- clear to auscultation and percussion Heart- regular rhythm; no murmur, no gallop, no rub appreciated Abdomen-tender in the epigastric area, surprisingly no tenderness in the left lower quadrant, no masses or hepatomegaly noted. Scant bowel sounds noted. Extremities- no pretibial edema, no calf tenderness; peripheral pulses intact Neuro- alert, oriented x 3; PERRL, EOMI; no facial palsy; no dysarthria; motor 5/5 bilaterally; Skin- warm & dry Principal Diagnosis Acute sigmoid diverticulitis Discharge Exam Constitutional: WD/WN, vitals as above, NAD, sitting up in bed, pleasant, conversing easily, no wheeze, rales, rhonchi. Normal insp/exp effort, no accessory muscle use Cardiovascular: RRR, no murmur, no edema Vessels: no JVD or carotid bruit Chest: normal inspection of chest Abdomen: Mild tenderness in left lower quadrant; no guarding. Soft. Musculoskeletal: no cyanosis or clubbing, extremities motor strength 5/5 Skin: no rashes, warm and dry normal turgor Neurologic: PERRL, EOMI, accommodation nl, no face palsy, no dysarthria CN's II- XI intact bilaterally and moves all extremities Psychiatric: A+Ox3, euthymic affect Discharge Data Allergies Allergy/AdvReac Type Severity Reaction Status Date / Time carbamazepine [From Tegretol] Allergy Mild Rash Verified 11/06/24 17:13 Consultations 11/06/24 19:49 ED Decision to Admit Stat 11/06/24 22:19 Consult Gastroenterology Routine Ordered Studies 11/06/24 18:13 CT abd pelvis IV con only Stat Hospital Course (1) Acute diverticulitis: (2) Pancreatitis: (3) Intractable nausea and vomiting: (4) Anemia: Plan Patient presented to the hospital with nausea, vomiting and abdominal pain. CT abdomen pelvis suspicious of acute diverticulitis of sigmoid colon. Patient was admitted to the medical floor; was started on IV fluids and antibiotic. GI was consulted for comanagement; recommended antibiotic for total of 10 days. Patient was started on full liquid diet which she tolerated without any difficulty. Patient was offered to remain in the hospital for close monitoring for the next few days. However, he wanted to go home on oral antibiotic. Patient was given prescription of antibiotic for 10 more days. He was recommended to follow-up for liquid diet for a few more days. Patient was recommended to come back to the hospital if he starts to experience fever, chills, severe abdominal pain. Patient verbalized understanding of the instructions. Please note the above document was generated using voice recognition software. It may contain grammatical, syntax or spelling errors. Any formal questions or concerns about the content, text or information contained within the body of this dictation should be directly addressed to the provider for clarification Total Time Total Time Spent Total Time Spent (In Minutes): 45 Total Time Includes: Examination of the Patient, Discharge Planning, Medication Reconciliation, Communication With Other Providers and Other Discharge Plan Discharge Items Patient Disposition: Home - Self-Care Reason For Visit: PANCREATITIS, DIVERTICULITIS Discharge Diagnosis: Acute sigmoid diverticulitis Activity: Resume your previous activity Non-emergency contact: Primary Care Provider Call non-emergency contact if: you have any medication questions and your symptoms worsen Follow-up/Referrals: Thaddeus Solis MD [Primary Care Provider] - 11/14/24 10:00 am (Date & Time 11/14/2024 10:00 AM Provider: Huan Morrison MD [facility], [facility] ) Diet: Full liquid Addtl Attending Provider Instructions: You were admitted to the hospital with acute sigmoid diverticulitis. You are prescribed Augmentin to be taken twice a day for 9 more days. Please take a full liquid diet for next 2 to 3 days. After you are able to tolerate the full liquid diet; you can gradually advance to low fiber diet. For the time being, hold off on taking iron tablets as it can cause GI discomfort. Follow-up with your primary care doctor as scheduled Pending Studies at Discharge: No Stand-Alone Forms: My [facility], Smoking Cessation Medications and DC Order Prescriptions: New amoxicillin-pot clavulanate 875-125 mg tablet 1 tab PO BID 9 Days Qty: 18 0RF Continued cyanocobalamin (vitamin B-12) [Vitamin B-12] 500 mcg Tablet 500 mcg PO DAILYBD cholecalciferol (vitamin D3) [Vitamin D3] 50 mcg (2,000 unit) Tablet 50 mcg PO DAILY olanzapine [Zyprexa] 5 mg tablet 5 mg PO HS pantoprazole 40 mg tablet,delayed release (DR/EC) 40 mg PO QAM escitalopram oxalate 10 mg tablet 10 mg PO QAM morphine concentrate 100 mg/5 mL (20 mg/mL) solution 10 mg PO Q4H PRN (Reason: Pain) Rx Instructions: 0.5 ML q4h prn prochlorperazine maleate 10 mg tablet 10 mg PO Q6H PRN (Reason: Nausea And Vomiting) lorazepam 0.5 mg tablet 0.5 mg PO Q6H PRN (Reason: Anxiety) folic acid 1 mg tablet 1 mg PO QDL aprepitant 80 mg capsule 80 mg PO DAILY PRN (Reason: Nausea And Vomiting) ondansetron HCl 8 mg tablet 8 mg PO Q8H PRN (Reason: Nausea And Vomiting) Held ferrous sulfate 325 mg (65 mg iron) Tablet 325 mg PO 3XWK Hold Instructions: Resume on 11/19/24. Rx Instructions: Mon/Tue/Tue Discharge Orders: Discharge Order (Routine); Ordered 11/07/24 Ordered By: Beni Hernandez/Other Patient Handouts: Low-Fiber Diet, Full Liquid Diet Dc Admission Data Admit Date/Time: 11/06/24 20:57 Attending Provider: Beni Leon Admit Provider: Rolo Armando Primary Care Provider: Thaddeus Solis Other Providers: Rolo Armando; Rohith Velasco; Jason Cid; Dahlia Ballard; Ely York; Veronica Montenegro; Nathalia Meadows; Homar Blair; Trista Lucero; Pepper Blunt; Marielle Quigley; Claire Robertson; Carri Crowell; Sandra Alonso; Christen Rao; Georgi Long; Markus Bunch; Belgica Solorznao; Iggy Acuna Jr; Sergio Burns.; Raman Ley; Fabian Maher; Pollo Talbot; Lynette Michael; Alessio gArawal I; Aliyah Gunter; Allen Wolfe; Americo Guido Other Interventions: Discharge Summary Assessment (RN) Last Done: 11/07/24 14:35
[2024-11-07 15:40] VITALS: BP 132/85; PULSE 49; TEMP 98.2; O2SAT 96
--- NOTE | 2024-11-08 10:41 | Coding Query ---
CODING QUERY To promote full compliance with coding requirements relating to patient care, provider participation is requested in all cases of waistline joiner lockstitch uncertainty. Please assist us with the question(s) below: Coding Question(s): There is documentation of possible pancreatitis through the record and on the Discharge Summary. Please specify below, in your clinical opinion regarding pancreatitis: ( ) Possible Acute Pancreatitis ( ) Possible Chronic Pancreatitis ( ) Possible Pancreatitis, Other: Please Specify ( X) Possible Pancreatitis was Ruled-Out Physician's Response(s): Thank you Lisbeth Santamaria Principal Diagnosis: "that condition established after study, to be chiefly responsible for occasioning the admission of the patient to the hospital for care." Co-Existing Principal Diagnosis: "when two or more diagnoses equally meet the criteria for principal diagnosis as determined by the circumstances of admission, diagnostic work up, and/or therapy provided, and the Alphabetic Index, Tabular List, or another coding guideline does not provide sequencing direction, any one of the diagnoses may be sequenced first." "When the physician has documented what appears to be a current diagnosis in the body of the record, but has not included the diagnosis in the final diagnostic statement, the physician should be asked whether the diagnosis should be added." (Source Coding Clinic 2 QTR90. p3-4) SANTI
--- NOTE | 2024-11-09 07:02 | Coding Query ---
MALNUTRITION To promote full compliance with coding requirements relating to patient care, physician participation is requested in all cases of computer language coder uncertainty. Please assist us with the question(s) below: Please place an X within the parenthesis (x). If other, please document: "Malnutrition" is documented in this record on the Addendum on the Discharge Summary. If possible, please check the box that provides a more specific diagnosis: ( ) Mild malnutrition ( ) Moderate malnutrition ( X) Severe malnutrition ( ) Protein malnutrition (kwashiorkor) ( ) Severe protein calorie malnutrition ( ) Protein calorie malnutrition, unspecified ( ) Other (please specify): Was this diagnosis present on admission? Please place an X within the parenthesis (x). ( X) Present on admission ( ) Not present on admission ( ) Unable to be clinically determined Thank you Lisbeth Santamaria [facility]
== END 2024-11-07 16:49 | disposition home or self-care (01) ==
LOC: ED 14:52 → INTOOBSV 20:57 → 3W 20:57 → SUATTDRO 20:57 → 3W 21:55

== ENCOUNTER 2024-12-06 17:36 | Observation (INO) ==
--- NOTE | 2024-12-06 18:06 | Emergency Department Note ---
Impression & Plan Abdominal pain, Intractable nausea and vomiting ED Provider Note NAME: PARISH WEINER AGE: 59 SEX: M : 1965 ARRIVES VIA: Walk-In INFORMANT: Patient, ED PROVIDER(S): Marshall Wilson DO CHIEF COMPLAINT: Vomiting HPI: The patient is a 59-year-old male who presented to the emergency department for an evaluation of nausea vomiting and abdominal pain. This began over the last 24 hours. The patient has been seen in our facility recently for similar complaints. He has a history of GI surgery. The patient has a history of diverticulitis which was recently diagnosed. He was on a full round of antibiotics. He finished the antibiotics. He presents today because of recurrence of symptoms. He denies having any fever. He denies having any chest pain or difficulty breathing. ROS: See above HPI for pertinent positives & negatives. A total of 10 systems reviewed and were otherwise negative. PAST MEDICAL HISTORY: See Below PAST SURGICAL HISTORY: See Below FAMILY HISTORY: See Below SOCIAL HISTORY: See Below HOME MEDICATIONS: See Below ALLERGIES: See Below VITALS: See Below PHYSICAL EXAMINATION: GENERAL: The patient is awake and alert. He is very anxious and appears to be uncomfortable. EYES: The conjunctivae are clear. The pupils are round and reactive. EARS, NOSE, MOUTH AND THROAT: The nose is without any evidence of any deformity. NECK: The neck is nontender and supple. RESPIRATORY: Normal respiratory effort is noted there is no evidence of wheezing rhonchi or rales CARDIOVASCULAR: Regular rate and rhythm noted there no murmurs rubs or gallops normal S1 normal S2. GASTROINTESTINAL: The abdomen was nondistended. There is no specific tenderness guarding rigidity noted. MUSCULOSKELETAL/EXTREMITIES: There is no evidence of gross deformity full range of motion is noted in the hips and shoulders. SKIN: There is no obvious evidence of any rash. There are no petechiae, pallor or cyanosis noted. NEUROLOGIC: Patient is awake alert and oriented x3 strength is symmetric patellar reflexes are 2+ bilaterally MEDICAL DECISION MAKING: The patient is a 59-year-old male who presented to the emergency department for an evaluation of abdominal pain nausea vomiting. The patient has been in our facility recently for similar complaints. He is had multiple CTs of the abdomen pelvis. He did have recent diverticulitis. He is not currently on an antibiotic. The patient's abdominal exam was not consistent with acute surgical abdomen. He was treated with pain medication and antiemetics. He was reevaluated multiple times. He was treated with IV fluids. Ultimately the patient's symptoms did improve but did not improve to the point where he would feel comfortable with discharge to home. He requested evaluation by the hospitalist. I discussed patient's laboratory and radiographic studies with the hospitalist. They have agreed to evaluate the patient in the emergency department for further management and disposition. Triage Nursing notes reviewed. Prior medical records reviewed Vital Signs: reviewed and remarkable for elevated blood pressure. Differential diagnosis: Etiologies such as appendicitis, diverticulitis, obstruction, inflammatory bowel disease, renal colic, PUD, biliary pathology, pancreatitis, mesenteric ischemia, aortic pathology, infections, genitourinary, UTI, perforated viscus, as well as others were entertained. ER treatment provided: See below Diagnostics interpreted by me: ECG: EKG was obtained in the emergency department. My interpretation is sinus bradycardia at 57 bpm. There is no ectopy. QTc was 465 ms. Possible U wave was noted. Cardiac Monitoring: An order was placed for continuous cardiac monitoring. The monitor shows a rate of 59 bpm with sinus bradycardia. Laboratory studies: As stated above and show below. Imaging studies: See below. Radiographic imaging was reviewed by myself Consultation(s): I discussed this case with Dr. Zuleta he is agreed to evaluate the patient in the emergency department. Past Med/Surg History Problem List (Updated 12/06/24 @ 21:34 by Marshall Wilson DO) Abdominal pain (Acute) Pancreatitis (Acute) Intractable nausea and vomiting (Acute) Medical History Acute diverticulitis Intractable nausea and vomiting History of esophageal cancer Severe malnutrition Anemia Esophageal cancer diagnosed 04/2023--chemo/ERCP 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 [place] [place] History of recent blood transfusion 05/02/23 @ [facility] Enteropathogenic Escherichia coli infection Hyponatremia Trigeminal neuralgia Hypomagnesemia Vomiting and diarrhea Iron deficiency received blood transfusion 05/02/23 @ [facility] Surgical History History of colonoscopy History of esophagogastroduodenoscopy (EGD) History of tooth extraction partial upper and lower denture History of ERCP 04/2023 @ [facility] [place] History of vascular access device A port--power port in placed on right side of chest Family History Father Stroke Social History Smoking Status: Never smoker Tobacco Type: Cigarettes Second Hand Exposure: No; Do You Dip or Chew Tobacco: No; Hx Alcohol Use: Yes Alcohol type: beer Hx Substance Use: Yes Last Used Substance: Days (ago) Preferred Language: Slovenian Communication Ability: Effective Culinary Intern Required: No Beliefs That Will Affect Care: None marital status: Current Living Situation: Spouse Feels Safe at Home: Yes Assistive Devices: None Allergies Allergies Allergy/AdvReac Type Severity Reaction Status Date / Time carbamazepine [From Tegretol] Allergy Mild Rash Verified 11/06/24 17:13 Home Meds Home Medications Medication Instructions Recorded Confirmed escitalopram oxalate 10 mg tablet 10 mg PO QAM 12/22/23 11/06/24 olanzapine 5 mg tablet (Zyprexa) 5 mg PO HS 12/22/23 11/06/24 pantoprazole 40 mg tablet,delayed 40 mg PO QAM Heartburn 12/22/23 11/06/24 release cholecalciferol (vitamin D3) 50 50 mcg PO DAILY 02/13/24 11/06/24 mcg (2,000 unit) tablet (Vitamin D3) cyanocobalamin (vitamin B-12) 500 500 mcg PO DAILYBD 02/13/24 11/06/24 mcg tablet (Vitamin B-12) aprepitant 80 mg capsule 80 mg PO DAILY PRN Nausea And 04/13/24 11/06/24 Vomiting folic acid 1 mg tablet 1 mg PO QDL 04/13/24 11/06/24 lorazepam 0.5 mg tablet 0.5 mg PO Q6H PRN Anxiety 04/13/24 11/06/24 morphine concentrate 100 mg/5 mL 10 mg PO Q4H PRN Pain 04/13/24 11/06/24 (20 mg/mL) oral solution prochlorperazine maleate 10 mg 10 mg PO Q6H PRN Nausea And 04/13/24 11/06/24 tablet Vomiting ferrous sulfate 325 mg (65 mg 325 mg PO 3XWK 11/06/24 11/06/24 iron) tablet ondansetron HCl 8 mg tablet 8 mg PO Q8H PRN Nausea And Vomiting 11/06/24 11/06/24 Results & Data (ED) Vital Signs Vital Signs - 24 hr 12/06/24 17:38 12/06/24 18:18 12/06/24 18:18 Temperature 36.8 C Temperature Source Temporal Artery Scan Pulse Rate 70 Pulse Rate [Right Finger] 61 Pulse Rhythm [Right Finger] Regular Pulse Strength [Right Finger] Normal Respiratory Rate 18 18 Respiratory Effort / Characteristics Non-Labored Spontaneous Non-Labored Respiratory Depth Normal Normal Respiratory Pattern Regular Blood Pressure 155/85 H Blood Pressure [Left Arm] 147/95 H Blood Pressure Mean 108 Blood Pressure Mean [Left Arm] 112 Blood Pressure Position Sitting Blood Pressure Position [Left Arm] Lying Pulse Oximetry 99 98 98 Oxygen Delivery Method Room Air Room Air Room Air Sepsis Recent Fever Within 48 Hours No Sepsis New/Unexplained Change in Mental Status No Sepsis Action Taken by Nursing No Action Required 12/06/24 18:34 12/06/24 20:25 Temperature Temperature Source Pulse Rate 56 L Pulse Rate [Right Finger] 59 L Pulse Rhythm [Right Finger] Regular Pulse Strength [Right Finger] Normal Respiratory Rate Respiratory Effort / Characteristics Non-Labored Respiratory Depth Normal Respiratory Pattern Regular Blood Pressure Blood Pressure [Left Arm] 153/94 H Blood Pressure Mean Blood Pressure Mean [Left Arm] 113 Blood Pressure Position Blood Pressure Position [Left Arm] Lying Pulse Oximetry 97 Oxygen Delivery Method Room Air Sepsis Recent Fever Within 48 Hours Sepsis New/Unexplained Change in Mental Status Sepsis Action Taken by [facility] Medications Current Medication List: was personally reviewed by me Laboratory Data Attestation: I reviewed the patient's lab results. 12/06/24 18:10 12/06/24 18:10 Lab Results 12/06/24 12/06/24 Range/Units 18:10 18:15 WBC 6.96 (4.8-10.8) K/ul RBC 4.44 L (4.70-6.10) M/uL Hgb 13.3 L (14.0-18.0) g/dl POC Hgb 14.3 (14.0-18.0) g/dl Hct 37.6 L (42.0-52.0) % POC Hct 42 (42-52) % MCV 84.7 (80.0-100.0) fL MCH 30.0 (25.0-34.0) pg MCHC 35.4 (32.0-36.0) g/dL RDW Std Deviation 42.4 (36.4-46.3) fL RDW Coeff of Stone 13.7 (11.5-14.5) % Plt Count 230 (130-400) K/uL MPV 9.8 (9.4-12.4) fL Immature Gran % (Auto) 0.3 % Neut % (Auto) 80.4 % Lymph % (Auto) 10.8 % [place] % (Auto) 8.2 % Eos % (Auto) 0.0 % Baso % (Auto) 0.3 % Neut # (Auto) 5.60 (1.40-6.50) K/uL Lymph # (Auto) 0.75 L (1.20-3.40) K/uL [place] # (Auto) 0.57 (0.11-0.59) K/uL Eos # (Auto) 0.00 (0.00-0.50) K/uL Baso # (Auto) 0.02 (0.00-0.20) K/uL Immature Gran # (Auto) 0.02 (0.01-0.20) K/uL ESR 2 (0-20) mm/hr POC Sodium 137 (135-144) mmol/L Sodium 137 (136-145) mmol/L POC Potassium 3.7 (3.3-5.0) mmol/L Potassium 3.7 (3.5-5.1) mmol/L POC Chloride 101 (101-112) mmol/L Chloride 103 (98-107) mmol/L Carbon Dioxide 22 (21-32) mmol/L POC Total CO2 21 L (24-31) mmol/L Anion Gap 12 H (3-11) POC Anion Gap 19.0 (16-25) mmol/L POC BUN 12 (7-18) mg/dl BUN 12 (6-23) mg/dl Creatinine 0.76 (0.6-1.4) mg/dl POC Creatinine 0.8 (0.6-1.3) mg/dl Est Cr Clr Drug Dosing 81.9 ml/min eGFR 102.90 BUN/Creatinine Ratio 15.8 (10-20) Glucose 107 H (70-99(Fasting)) mg/dl POC Glucose (other) 109 H (70-99) mg/dl Calcium 9.1 (8.6-10.3) mg/dl POC Ioniz Calcium Aster 1.14 (1.12-1.32) mmol/l Total Bilirubin 0.8 (0.2-1.0) mg/dl AST 26 (13-39) U/L ALT 17 (7-52) U/L Alkaline Phosphatase 66 (34-104) U/L C-Reactive Protein < 0.50 (0-0.5) mg/dl Total Protein 6.8 (6.0-8.3) gm/dl Albumin 4.3 (3.4-5.0) gm/dl Globulin 2.5 (2.5-4.0) gm/dl Albumin/Globulin Ratio 1.7 (0.9-2) Lipase 29 (11-82) U/L Administered Medications Hydromorphone HCl (Hydromorphone Inj 1 Mg/Ml Syringe) 1 mg IV Q15M PRN PRN Reason: Pain Stop: 12/20/24 19:17 Last Admin: 12/06/24 19:26 Dose: 1 mg Documented By: SABI Morphine Sulfate (Morphine Sulfate 4 Mg/Ml 1 Ml Carp\Vial) 4 mg IV Q15M PRN PRN Reason: Pain Stop: 12/20/24 17:44 Last Admin: 12/06/24 18:34 Dose: 4 mg Documented By: SABI Discontinued Medications Sodium Chloride (Nss) 1,000 mls @ 999 mls/hr IV .Q1H1M ONE Stop: 12/06/24 18:45 Last Infusion: 12/06/24 20:43 Dose: Infused Documented By: Admin: 12/06/24 18:34 Dose: 999 mls/hr Documented By: SABI Promethazine HCl (Phenergan) 12.5 mg in 50.5 mls @ 202 mls/hr IV NOW STA Stop: 12/06/24 17:59 Last Infusion: 12/06/24 19:03 Dose: Infused Documented By: Admin: 12/06/24 18:34 Dose: 202 mls/hr Documented By: SABI Fosaprepitant 150 mg/ Sodium (Chloride) 145 mls @ 300 mls/hr IV ONE ONE Stop: 12/06/24 19:59 Last Admin: 12/06/24 21:15 Dose: Not Given Documented By: SABI Fosaprepitant 150 mg/ Sodium (Chloride) 150 mls @ 300 mls/hr IV ONE ONE Stop: 12/06/24 20:29 Last Admin: 12/06/24 20:17 Dose: 300 mls/hr Documented By: SABI Ondansetron HCl (Ondansetron Inj 2 Mg/Ml 2 Ml Vial) 4 mg IV NOW STA Stop: 12/06/24 17:46 Last Admin: 12/06/24 18:34 Dose: 4 mg Documented By: SABI Imaging Data Attestation: I personally reviewed and interpreted this imaging study as follows: My Impression: 1 view chest x-ray and KUB were obtained in the emergency department. My interpretation is no free air or definite infiltrate, nonspecific bowel gas pattern was noted, final report below. Radiologist's Impression: Chest X-Ray 12/06/24 17:45 Clinical History: Vomiting Technique: 2 frontal views of the chest were obtained Comparison is made to the prior examination dated 08/12/2024 Findings: There are no confluent pulmonary infiltrates. The heart size is within normal limits. No pleural effusion or pneumothorax is seen. There is suspected emphysema There are old healed right rib fractures. There is a right chest wall port with its tip in the SVC Impression: No active disease Electronically signed by Blake Huynh 12-06-2024 7:13 PM KUB X-Ray 12/06/24 17:45 Clinical history: Vomiting One view of the abdomen was obtained Findings: Gas is seen within normal caliber small and large bowel loops. No renal or ureteral calculi are seen. No foreign body is evident. There is lumbar scoliosis and degenerative disc disease Impression: Unremarkable abdominal radiograph Electronically signed by Blake Huynh 12-06-2024 7:14 PM Discharge Plan Visit Data Chief Complaint: Abdominal Pain Stated Complaint: ADB PAIN, DIVERTICULITS ED Provider: Marshall Wilson Discharge Problem: Abdominal pain, Intractable nausea and vomiting Patient Disposition: Being Evaluated by Hospitalist Forms Stand Alone Forms: My [facility] Prescriptions Prescriptions: No Action cyanocobalamin (vitamin B-12) [Vitamin B-12] 500 mcg Tablet 500 mcg PO DAILYBD cholecalciferol (vitamin D3) [Vitamin D3] 50 mcg (2,000 unit) Tablet 50 mcg PO DAILY olanzapine [Zyprexa] 5 mg tablet 5 mg PO HS pantoprazole 40 mg tablet,delayed release (DR/EC) 40 mg PO QAM escitalopram oxalate 10 mg tablet 10 mg PO QAM morphine concentrate 100 mg/5 mL (20 mg/mL) solution 10 mg PO Q4H PRN (Reason: Pain) Rx Instructions: 0.5 ML q4h prn prochlorperazine maleate 10 mg tablet 10 mg PO Q6H PRN (Reason: Nausea And Vomiting) lorazepam 0.5 mg tablet 0.5 mg PO Q6H PRN (Reason: Anxiety) folic acid 1 mg tablet 1 mg PO QDL aprepitant 80 mg capsule 80 mg PO DAILY PRN (Reason: Nausea And Vomiting) ondansetron HCl 8 mg tablet 8 mg PO Q8H PRN (Reason: Nausea And Vomiting) ferrous sulfate 325 mg (65 mg iron) Tablet 325 mg PO 3XWK Hold Instructions: Resume on 11/19/24. Rx Instructions: Mon/Wed/Fri Referrals Referrals: Thaddeus Solis MD [Primary Care Provider] -
[2024-12-06 18:25] LABS: Basophils # (auto) 0.02 K/uL (0.00-0.20); Basophils % (auto) 0.3 %; Hematocrit (blood only) 37.6 % (42.0-52.0); Hemoglobin 13.3 g/dl (14.0-18.0); Immature Granulocytes # (auto) 0.02 K/uL (0.01-0.20); Immature Granulocytes % (auto) 0.3 %; Lymphocytes # (auto) 0.75 K/uL (1.20-3.40); Lymphocytes % (auto) 10.8 %; Mean Corpuscular Hgb Conc 35.4 g/dL (32.0-36.0); Mean Corpuscular Volume 84.7 fL (80.0-100.0); Mean Platelet Volume 9.8 fL (9.4-12.4); Monocytes # (auto) 0.57 K/uL (0.11-0.59); Monocytes % (auto) 8.2 %; Neutrophils % (auto) 80.4 %; Platelet Count 230 K/uL (130-400); RDW Coefficient of Variation 13.7 % (11.5-14.5); RDW Standard Deviation 42.4 fL (36.4-46.3); Red Blood Count 4.44 M/uL (4.70-6.10); White Blood Count 6.96 K/ul (4.8-10.8)
[2024-12-06 18:27] LABS: iSTAT Creatinine 0.8 mg/dl (0.6-1.3); iSTAT Hemoglobin 14.3 g/dl (14.0-18.0); iSTAT Ionized Calcium 1.14 mmol/l (1.12-1.32); iSTAT Potassium 3.7 mmol/L (3.3-5.0)
[2024-12-06] MEDS: ONDANSETRON INJ 2 MG/ML 2 ML VIAL IV STA (18:34)
[2024-12-06] MEDS: PROMETHAZINE 12.5 MG/50.5 ML BAG IV STA (18:34)
[2024-12-06] MEDS: SODIUM CHLORIDE 0.9% 1,000 ML IV ONE (18:34)
[2024-12-06] MEDS: MoRPHine SULFATE 4 MG/ML 1 ML CARP\\VIAL IV PRN (18:34)
[2024-12-06 18:45] LABS: Alanine Aminotransferase 17 U/L (7-52); Albumin Globulin Ratio 1.7 (0.9-2); Albumin Level 4.3 gm/dl (3.4-5.0); Alkaline Phosphatase 66 U/L (34-104); Anion Gap 12 (3-11); Aspartate Aminotransferase 26 U/L (13-39); BUN Creatinine Ratio 15.8 (10-20); Bilirubin,Total 0.8 mg/dl (0.2-1.0); Blood Urea Nitrogen 12 mg/dl (6-23); C Reactive Protein < 0.50 mg/dl (0-0.5); Calcium 9.1 mg/dl (8.6-10.3); Carbon Dioxide 22 mmol/L (21-32); Chloride 103 mmol/L (98-107); Creatinine Clr Calc Pharmacy 81.9 ml/min; Globulin 2.5 gm/dl (2.5-4.0); Glucose 107 mg/dl (70-99(Fasting)); Lipase 29 U/L (11-82); Potassium 3.7 mmol/L (3.5-5.1); Sodium 137 mmol/L (136-145); Total Protein 6.8 gm/dl (6.0-8.3)
--- NOTE | 2024-12-06 19:13 | XRay Report ---
Clinical History: Vomiting Technique: 2 frontal views of the chest were obtained Comparison is made to the prior examination dated 08/12/2024 Findings: There are no confluent pulmonary infiltrates. The heart size is within normal limits. No pleural effusion or pneumothorax is seen. There is suspected emphysema There are old healed right rib fractures. There is a right chest wall port with its tip in the SVC Impression: No active disease Electronically signed by Blake Huynh 12-06-2024 7:13 PM
--- NOTE | 2024-12-06 19:14 | XRay Report ---
Clinical history: Vomiting One view of the abdomen was obtained Findings: Gas is seen within normal caliber small and large bowel loops. No renal or ureteral calculi are seen. No foreign body is evident. There is lumbar scoliosis and degenerative disc disease Impression: Unremarkable abdominal radiograph Electronically signed by Blake Huynh 12-06-2024 7:14 PM
[2024-12-06] MEDS: HYDROmorphone INJ 1 MG/ML SYRINGE IV PRN (19:26)
[2024-12-06] MEDS: FOSAPREPITANT DIMEGLUMINE 150 MG in SODIUM CHLORIDE 0.9% 145 ML IV ONE ×2 (20:17→21:15)
[2024-12-06 22:32] LABS: Appearance Urine Clear (Clear); Bacteria Urine Automated None Seen (None Seen); Bilirubin Urine Negative (Negative); Blood Urine Negative (Negative); Cast Urine Automated 0-2 /lpf (0-2); Color Urine Yellow; Epithelial Cell Urine Auto 0-2 /hpf (0-2); Glucose Urine UA Negative (Negative); Ketones Urine 3+ (Negative); Leukocyte Esterase Urine Negative (Negative); Nitrite Urine Negative (Negative); Protein Urine Trace (Negative); RBC Urine Automated 0-2 /hpf (0-2); Specific Gravity Urine 1.026 (1.000-1.030); Urobilinogen Urine Negative (Negative); WBC Urine Automated 0-5 /hpf (0-5)
--- NOTE | 2024-12-07 00:51 | History & Physical Report ---
Date of Service December 07, 2024 Assessment & Plan (1) Abdominal pain: Plan: 59-year-old male with past medical history significant for severe malnutrition, esophageal/gastric cancer status post neoadjuvant chemotherapy/surgery, surgery consist of total gastrectomy and Yeison-en-Y esophageal jejunal anastomosis, chronic anemia, history of trigeminal neuralgia status post surgery, past tobacco abuse, history of recent diverticulitis and completed antibiotic course comes because of dry heaving and abdominal pain started at 1 PM. As pain was not getting better came to the ER. Currently after the pain medication, pain resolved. Last bowel movement was in the morning and was normal. Micturating okay. No fevers. Denies chest pain or shortness of breath. Denies cough. No headache. No runny nose or sore throat. No earache. Hemodynamics okay. Resting comfortably. Abdominal pain Dry heaving KUB okay Patient had history of total gastrectomy and Yeison-en-Y esophageal jejunal anastomosis Needs to eat in small portions History of similar symptoms in the past Patient was recently treated for diverticulitis end of October 2024 If not improving will get CT scan and GI consult We will keep him n.p.o. for now IV fluids, IV antiemetics and IV pain meds as needed Observation medical floor History of esophageal/gastric cancer Status post total gastrectomy and Yeison-en-Y esophageal jejunal anastomosis DVT prophylaxis. Lovenox Disposition Observation medical floor Full code. History of Present Illness Chief Complaint: Abdominal pain and nausea Primary Care Provider: Thaddeus Solis MD 59-year-old male with past medical history significant for severe malnutrition, esophageal/gastric cancer status post neoadjuvant chemotherapy/surgery, surgery consist of total gastrectomy and Yeison-en-Y esophageal jejunal anastomosis, chronic anemia, history of trigeminal neuralgia status post surgery, past tobacco abuse, history of recent diverticulitis and completed antibiotic course comes because of dry heaving and abdominal pain started at 1 PM. As pain was not getting better came to the ER. Currently after the pain medication, pain resolved. Last bowel movement was in the morning and was normal. Micturating okay. No fevers. Denies chest pain or shortness of breath. Denies cough. No headache. No runny nose or sore throat. No earache. Hemodynamics okay. Resting comfortably. Past medical history. As mentioned above. Past surgical history. Colonoscopy or EGD. EGD with endoscopic ultrasound. Craniectomy with suboccipital exploration of cranial nerves. Gastrectomy total with esophagoenterostomy, spinal tap. Social history. . Former smoking of cigars. Social drinking. Family history. Father had stroke. Allergies Allergy/AdvReac Type Severity Reaction Status Date / Time carbamazepine [From Tegretol] Allergy Mild Rash Verified 12/06/24 21:40 Home Medications Medication Instructions Recorded Confirmed Type escitalopram oxalate 10 mg tablet 10 mg PO QAM 12/22/23 12/06/24 History olanzapine 5 mg tablet (Zyprexa) 5 mg PO HS 12/22/23 12/06/24 History pantoprazole 40 mg tablet,delayed 40 mg PO QAM Heartburn 12/22/23 12/06/24 History release cholecalciferol (vitamin D3) 50 50 mcg PO DAILY 02/13/24 12/06/24 History mcg (2,000 unit) tablet (Vitamin D3) cyanocobalamin (vitamin B-12) 500 500 mcg PO DAILYBD 02/13/24 12/06/24 History mcg tablet (Vitamin B-12) aprepitant 80 mg capsule 80 mg PO DAILY PRN Nausea And 04/13/24 12/06/24 History Vomiting folic acid 1 mg tablet 1 mg PO QDL 04/13/24 12/06/24 History lorazepam 0.5 mg tablet 0.5 mg PO Q6H PRN Anxiety 04/13/24 12/06/24 History morphine concentrate 100 mg/5 mL 10 mg PO Q4H PRN Pain 04/13/24 12/06/24 History (20 mg/mL) oral solution prochlorperazine maleate 10 mg 10 mg PO Q6H PRN Nausea And 04/13/24 12/06/24 History tablet Vomiting ferrous sulfate 325 mg (65 mg 325 mg PO 3XWK 11/06/24 12/06/24 History iron) tablet ondansetron HCl 8 mg tablet 8 mg PO Q8H PRN Nausea And Vomiting 11/06/24 12/06/24 History Past Med/Surg History Problem List (Updated 12/06/24 @ 21:34 by Marshall Wilson DO) Abdominal pain (Acute) Pancreatitis (Acute) Intractable nausea and vomiting (Acute) Medical History Acute diverticulitis Intractable nausea and vomiting History of esophageal cancer Severe malnutrition Anemia Esophageal cancer diagnosed 04/2023--chemo/ERCP 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 Edmonds/[facility] [place] History of recent blood transfusion 05/02/23 @ [facility] Enteropathogenic Escherichia coli infection Hyponatremia Trigeminal neuralgia Hypomagnesemia Vomiting and diarrhea Iron deficiency received blood transfusion 05/02/23 @ [facility] Surgical History History of colonoscopy History of esophagogastroduodenoscopy (EGD) History of tooth extraction partial upper and lower denture History of ERCP 04/2023 @ [facility] [place] History of vascular access device A port--power port in placed on right side of chest Family History Father Stroke Social History Smoking Status: Never smoker Tobacco Type: Cigarettes Second Hand Exposure: No; Do You Dip or Chew Tobacco: No; Tobacco Cessation Education Requested by Patient: No Hx Alcohol Use: Yes Alcohol type: beer Hx Substance Use: Yes Last Used Substance: Days (ago) Preferred Language: Bengali Communication Ability: Effective Corrections Sergeant Required: No Beliefs That Will Affect Care: None marital status: Current Living Situation: Spouse Feels Safe at Home: Yes Safety Concerns: Feels Safe At This Time Assistive Devices: Cane, Denture - Upper and Denture - Lower Review of Systems Review of Systems: All systems reviewed & are unremarkable except as noted in HPI & below Physical Exam Physical Exam: General- Not in distress. Head- atraumatic Eyes- PERRL. ENT- oropharynx clear Neck- supple, no JVD. Lungs- clear to auscultation no wheezing or crackles Heart- regular rhythm; no murmur, no gallop. Abdomen- normal bowel sounds, soft, nontender, no distension Extremities- no pretibial edema, no erythema seen Neuro- alert, oriented PERRL, no facial palsy; no dysarthria; moves extremities Results & Data Results & Data Vital Signs (Past 12 Hours) Vital Signs Temp Pulse Pulse Resp BP BP Pulse Ox 12/07/24 00:00 53 L 18 99/67 L 97 12/06/24 22:46 55 L 12/06/24 22:00 53 L 13 90/63 L 96 12/06/24 20:25 59 L 153/94 H 97 12/06/24 18:34 56 L 12/06/24 18:18 98 12/06/24 18:18 61 18 147/95 H 98 12/06/24 17:38 36.8 C 70 18 155/85 H 99 O2 Del Method 12/07/24 00:00 Room Air 12/06/24 22:46 12/06/24 22:00 Room Air 12/06/24 20:25 Room Air 12/06/24 18:34 12/06/24 18:18 Room Air 12/06/24 18:18 Room Air 12/06/24 17:38 Room Air Diagnostic Findings Laboratory Results - last 24 hr 12/06/24 12/06/24 12/06/24 18:10 18:15 22:06 WBC 6.96 RBC 4.44 L Hgb 13.3 L POC Hgb 14.3 Hct 37.6 L POC Hct 42 MCV 84.7 MCH 30.0 MCHC 35.4 RDW Std Deviation 42.4 RDW Coeff of Stone 13.7 Plt Count 230 MPV 9.8 Immature Gran % (Auto) 0.3 Neut % (Auto) 80.4 Lymph % (Auto) 10.8 [place] % (Auto) 8.2 Eos % (Auto) 0.0 Baso % (Auto) 0.3 Neut # (Auto) 5.60 Lymph # (Auto) 0.75 L [place] # (Auto) 0.57 Eos # (Auto) 0.00 Baso # (Auto) 0.02 Immature Gran # (Auto) 0.02 ESR 2 POC Sodium 137 Sodium 137 POC Potassium 3.7 Potassium 3.7 POC Chloride 101 Chloride 103 Carbon Dioxide 22 POC Total CO2 21 L Anion Gap 12 H POC Anion Gap 19.0 POC BUN 12 BUN 12 Creatinine 0.76 POC Creatinine 0.8 Est Cr Clr Drug Dosing 81.9 eGFR 102.90 BUN/Creatinine Ratio 15.8 Glucose 107 H POC Glucose (other) 109 H Calcium 9.1 POC Ioniz Calcium Aster 1.14 Total Bilirubin 0.8 AST 26 ALT 17 Alkaline Phosphatase 66 C-Reactive Protein < 0.50 Total Protein 6.8 Albumin 4.3 Globulin 2.5 Albumin/Globulin Ratio 1.7 Lipase 29 Urine Color Yellow Urine Appearance Clear Urine pH 6.0 Ur Specific [place] 1.026 Urine Protein Trace H Urine Glucose (UA) Negative Urine Ketones 3+ H Urine Blood Negative Urine Nitrite Negative Urine Bilirubin Negative Urine Urobilinogen Negative Ur Leukocyte Esterase Negative Urine WBC (Auto) 0-5 Urine RBC (Auto) 0-2 U Hyaline Cast (Auto) 0-2 U Epithel Cells (Auto) 0-2 Urine Bacteria (Auto) None Seen ECG Additional Comments: ECG. Sinus bradycardia rate of 57. No significant change was found. Code Status & VTE Plan VTE Prophylaxis Plan VTE Prophylaxis will be ordered: Yes
[2024-12-07] MEDS ORDERED: LORazepam 0.5 MG TAB PO PRN (01:52)
[2024-12-07] MEDS ORDERED: ONDANSETRON INJ 2 MG/ML 2 ML VIAL IV PRN (01:52)
[2024-12-07] MEDS ORDERED: ACETAMINOPHEN 325 MG TAB PO PRN (01:52)
[2024-12-07 02:10] VITALS: RESP 16; O2SAT 98
[2024-12-07] MEDS: HYDROmorphone INJ 0.5 MG/0.5 ML SYR IV PRN (02:19)
[2024-12-07] MEDS: LACTATED RINGER'S 1,000 ML IV SCH (02:21)
--- OUTSIDE RECORDS SUMMARY | 2024-12-07 03:30 | External Medical Summary | Summary of Care ---
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 10 Patch 12 10/03/19 24 Active Additional Information Patient not taking.Reported on 11/19/2024 Pantoprazole Sodium 20 MG Oral Tablet Delayed [...] Tablet by mouth daily. 02/23/20 24 Active Additional Information Patient not taking.Reported on 11/19/2024 Aprepitant 80 MG Oral Capsule (Emend) Take 1 Capsule by mouth daily as needed for Nausea. 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 90 Tablet 1 10/06/19 25 Active Prochlorperazin e Maleate 10 MG Oral Tablet (Compazine)Vannesa cations:Maligna nt neoplasm of cardia of stomach (HCC),Malignant neoplasm of lower third of esophagus (HCC) TAKE ONE TABLET BY MOUTH EVERY 6 HOURS NEEDED FOR NAUSEA 30 Tablet 11/03/19 25 Active Amoxicillin-Pot Clavulanate 875-125 MG Oral Tablet (Augmentin) Take 1 Tablet by mouth in the morning and 1 Tablet before bedtime. 11/08/19 25 Active Ferrous Sulfate 325 (65 Fe) MG Oral Tablet Delayed Release Take 1 Tablet by mouth once a day on Tuesday, Tuesday, and Tuesday only. 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 (14 years old or [...] Miscellaneous Notes * Telephone Encounter - Pema Hanks RPh - 11/27/2024 10:39 AM EDT Refused Prescriptions: Disp Refills Prochlorperazine Maleate 10 MG Oral Tablet*30 Tab*0 Sig: TAKE ONE TABLET BY MOUTH EVERY 6 HOURS NEEDED FOR NAUSEARefused By: PEMA HANKS for Refusal: Duplicate Request documented in this encounter Plan of Treatment Upcoming Encounters Date Type Department Care Team (Late st Contact Info) Description 12/31/2024 10:30 AM EDT Nurse Only Hematology/Oncology Treatment, [place] [address] [place] [phone] Sandra, Chair 3 Hem [address] [facility] [address] 03/05/2025 9:15 AM EDT Imaging Radiology [facility] [address] [place] [phone] 03/12/2025 9:30 AM EDT Office Visit Hematology/Oncology [facility] [place] [address] [place] [phone] Cipriano Kuhn MD [address] [place] [address] 03/22/2025 9:00 AM EDT Office Visit [facility] [address] [facility] [address] Thaddeus Solis MD [address] [facility] [place] [address] Scheduled Procedures Name Priority Associated Diagnoses Date/Ti me COLONOSCOPY FLEXIBLE PROXIMA L DIAGNOSTIC Recall History of colonic polyps Health Maintenance Due Date Last Done Comments Depression Screening 1976 Cologuard 2009 Fecal Occult Blood Test 2009 Sigmoidoscopy 2009 Pneumococcal Vaccine: 50+ Years (1 of 1 - PCV) 2014 Zoster Vaccines (1 of 2) 2014 Lipid Panel 04/19/2019 04/19/2014 DTap/Tdap Vaccines (2 - Td o r Tdap) 08/29/2020 08/29/2010 COVID-19 Vaccine (3 - 2023-2 5 season) 2024 04/10/2021, 03/19/2021 Influenza Vaccine (FLU shot) (Season Ended) 2025 Colonoscopy 03/30/2033 03/30/2023, 03/30/2023 Colorectal Cancer Screening [...] this encounter Medical Devices Implanted Type Area Maintainer Central Office Device Identifier Shelf Expiration Date Model / Serial / Lot Cement Hydroset Injectable 5cc - [id number] Implanted:Qty : 1 on 03/15/2018 by Ronak Khoury MD [place] [facility] [place]: Head JOHN 11/09/2019 [id number] / / [id number] Needle Fiducial 22ga - [id number] Implanted:Qty : 1 on 04/01/2023 by Karson Goddard MD at [place] [facility] [place]/A: Esophagus GIVEN IMAGING [id number] 01/12/2025 DSF-22-01 / / [id number] Stent Wallf Esoph [id number] - [id number] Implanted:Qty : 1 on 04/01/2023 by Karson Goddard MD at [place]OS[place] [facility] [place] N/A: Esophagus [employer] : ENDOSCOPY [id number] 09/09/2024 [id number] / / [id number] Power Port 8fr Sngl Lumen Plas - [id number] Implanted:Qty : 1 on 04/19/2023 by Thaddeus Brown DO at OR [facility] Right: Chest CR BARD : PERIPHERAL VASCULAR [id number] 06/14/2024 [id number] / / [id number] documented as of this encounter Visit Diagnoses [...] Power of Attor yves? No Care Teams Station Engineer Chief Relationship Specialty Start Date End Date Thaddeus Solis MD 226 [facility] [place] [address] PCP - General Family Medicine 11/12/24 documented as of this encounter
--- OUTSIDE RECORDS SUMMARY | 2024-12-07 03:30 | External Medical Summary | Summary of Care ---
Author Name Unknown Organization [facility] Address [address] [place] [address] Phone [phone] Care Team Providers Care Financial Systems Manager Name Role Phone Thaddeus Solis MD Primary Care Provider [phone] Reason for Visit * Reason Comments Procedure Port flush Encounter Details Date Type Department Care Team (Late st Contact Info) Description 11/19/2024 10:30 AM EDT Nurse Only Hematology/Oncology Treatment, [place] [address] [place] [phone] Sandra, Chair [address] [place] [address] Procedure (Port flush) Allergies Active Allergy Reactions Criticality Noted Date Comments Carbamazepine Rash Medium 02/20/2018 documented as of this encounter (statuses as of 11/19/2024) Medications Vitamin D (Cholecalciferol) 50 MCG (1999 UT) Oral Capsule Take 1 Capsule by mouth daily. Follow up with your primary care provider for further management. 30 Capsule 09/29/2023 11:25 AM EST 02/15/202 4 Active Scopolamine 1 MG/3DAYS Transdermal Patch [...] 11 4 Active Multivitamin Adult Oral Tablet ChewableIndicatio ns:Severe malnutrition (HCC) Take 1 Tablet by mouth daily. 4 Active Aprepitant 80 MG Oral Capsule (Emend) Take 1 Capsule by mouth daily as needed for Nausea. 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 5 Active Ferrous Sulfate 325 (65 Fe) MG Oral Tablet Delayed Release Take 1 Tablet by mouth once a day on Tuesday, Tuesday, and Tuesday only. 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 Port needle flushed with 10 ml NSS, blood return noted, and port locked with additional 10 ml NSS. Bird needle removed, intact, gauze dressing applied. Pt discharged in stable condition. documented in this encounter Plan of Treatment Upcoming Encounters Date Type Department Care Team (Late st Contact Info) Description 12/31/2024 10:30 AM EDT Nurse Only Hematology/Oncology Treatment, [place] 200 [facility] [place] [phone] Sandra, Chair [address] [place] [address] 03/05/2025 9:15 AM EDT Imaging Radiology [facility] [facility], [place] [address] [place] [phone] 03/12/2025 9:30 AM EDT Office Visit Hematology/Oncology [facility] [place] [address] [facility] [place] [phone] Cipriano Kuhn MD 200 [facility] [place] [address] 03/22/2025 9:00 AM EDT Office Visit [facility] [place] [address] Thaddeus Solis MD [address] [facility] [place] [address] Scheduled Procedures Name Priority Associated Diagnoses Date/Ti [...] this encounter Medical Devices Implanted Type Area Cupola Charger Insulation Device Identifier Shelf Expiration Date Model / Serial / Lot Cement Hydroset Injectable 5cc - [id number] Implanted:Qty : 1 on 03/15/2018 [place]ak [place] [facility] [place] Head JOHN 11/09/2019 [id number] / / [id number] Needle Fiducial 22ga - [id number] Implanted:Qty : 1 on 04/01/2023 by Karson Goddard MD [place] [facility] [place]: Esophagus GIVEN IMAGING [id number] 01/12/2025 DSF-22-01 / / [id number] Stent Wallf Esoph 23/[id number] - [id number] Implanted:Qty : 1 on 04/01/2023 by Karson Goddard MD [place] [facility] [place]: Esophagus [employer] : ENDOSCOPY [id number] 09/09/2024 [id number] / / [id number] Power Port 8fr Sngl Lumen Plas - [id number] Implanted:Qty : 1 on 04/19/2023 by Thaddeus Brown, DO at OR [facility] Right: Chest CR BARD : PERIPHERAL VASCULAR [id number] 06/14/2024 [id number] / / [id number] documented as of this encounter Visit Diagnoses Diagnosis History of esophageal cancer- Primary Personal history of malignant neoplasm of esophagus documented in this encounter Administered Medications Inactive Administered Medications - up to 3 most recent administrations Medication Order MAR Action Action Date Dose Rate Site sodium chloride 0.9 % flush/inj 20 mL 20 mL, IV Push, PRN IV Flush and Lock, Starting on Tue11/19/24 at 1042, Until Tue11/19/24 at 1126, Do not flush if lock, PICC, or central line not in place; IV infusing or unable to flush. For midlines and central lines. For IV Flush and Lock, IVAD is flushed with a total of 20 mL Normal Saline, 10 mL of Normal Saline Flush with 10 mL of Normal Saline acting as IV LOCK.Indications:History of esophageal cancer Given 11/19/2024 10:51 AM EDT 20 mL documented in this encounter Advance Directives [...] Power of Attor yves? No Care Teams Financial Systems Manager Relationship Specialty Start Date End Date Thaddeus Solis MD [address] [facility] [place] [address] PCP - General Family Medicine 11/12/24 documented as of this encounter
--- OUTSIDE RECORDS SUMMARY | 2024-12-07 03:30 | External Medical Summary | Summary of Care ---
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 90 Tablet 1 10/06/19 25 Active Amoxicillin-Pot Clavulanate 875-125 MG Oral Tablet (Augmentin) Take 1 Tablet by mouth in the morning and 1 Tablet before bedtime. 11/08/19 25 Active Ferrous Sulfate 325 (65 Fe) MG Oral Tablet Delayed Release Take 1 Tablet by mouth once a day on Tuesday, Tuesday, and Tuesday only. 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) TAKE 1 TABLET BY MOUTH EVERY 6 HOURS NEEDED for anxiety or sleep 30 Tablet 11/20/19 25 025 Discontinued documented as of this encounter (statuses as of 11/28/2024) Active Problems Problem Noted Date Diagnosed Date [...] as of this encounter (statuses as of 11/28/2024) Immunizations Name Administration Dates Next Due TDAP [...] 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 Not on file [...] Telephone Encounter - Pema Hanks RPh - 11/28/2024 8:36 AM EDT Sent myg msg * Telephone Encounter - Ophelia Solis MD - 11/27/2024 5:00 PM EDTSigned Prescriptions: Disp Refills Prochlorperazine Maleate 10 MG Oral Tablet*30 Tab*0 Sig: TAKE 1 TABLET BY MOUTH EVERY 6 HOURS NEEDED FOR NAUSEAAuthorizing Provider: OPHELIA SOLIS Ondansetron HCl 8 MG Oral Tablet (Zofran) 30 Tab*2 Sig: Take 1 Tablet by mouth every 8 hours as needed for Nausea.Authorizing Provider: OPHELIA SOLIS LORazepam 0.5 MG Oral Tablet (Ativan) 30 Tab*0 Sig: Take 1 tablet by mouth every 6 hours as needed for anxiety or sleepAuthorizing Provider: OPHELIA SOLIS Escitalopram Oxalate 10 MG Oral Tablet (Le*30 Tab*5 Sig: take 1 tablet daily at bedtimeAuthorizing Provider: OPHELIA SOLIS User: PEMA HANKS * Telephone Encounter - Ophelia Solis MD - 11/27/2024 4:54 PM EDT Please notify Pt: the Lorazepam was renewed but he should try to reduce use. Looks like last scriptlasted him 1 week which Is 4 tabs per day. I thought he would get by with one or two per day. * Telephone Encounter - Pema Hanks [facility] - 11/27/2024 10:43 AM EDT Pending Prescriptions: Disp Refills Prochlorperazine Maleate 10 MG Oral Tablet*30 Tab*0 Sig: TAKE 1 TABLET BY MOUTH EVERY 6 HOURS NEEDED FOR NAUSEA Ondansetron HCl 8 MG Oral Tablet (Zofran) 30 Tab*2 Sig: Take 1 Tablet by mouth every 8 hours as needed for Nausea. LORazepam 0.5 MG Oral Tablet (Ativan) 30 Tab*0 Sig: Take 1 tablet by mouth mckenzie ry 6 hours as needed for anxiety or sleep Signed Prescriptions: Disp Refills Escitalopram Oxalate 10 MG Oral Tablet (Le*30 Tab*5 Sig: take 1 tablet daily at bedtime Authorizing Provider: OPHELIA SOLIS Ordering User: PEMA HANKS * Telephone Encounter - Pema Hanks RPh - 11/27/2024 10:43 AM EDT I have reviewed the patient’s controlled substance dispensing history in the Prescription Drug Monitoring Program in compliance with the [facility] regulations before prescribing a controlled substance. PDMP checked on 11/27/2024. Pending Prescriptions: Disp Refills LORazepam 0.5 MG Oral Tablet (Ativan) [Ph*30 Tab*0 Sig: Take 1 tablet by mouth every 6 hours as needed for anxiety or sleep Last Visit: 11/19/2024 (in office), Visit date not found (telemedicine) Next Visit: 03/22/2025 Date medication was last filled: 11/20 Date medication is due for refill: 11/27 Pharmacy: [id number] [facility] Is this request for a controlled substance? Yes and Urine Drug Screen Not completed Toxicology results: No results found for this or any previous visit. Please approve if appropriate. Thank you, Pema Hanks, PharmD. Clinical Pharmacist [facility] ([facility]) 11/27/2024, 10:43 AM documented in this encounter Plan of Treatment Upcoming Encounters Date Type Department Care Team (Late st Contact Info) Description 12/31/2024 10:30 AM EDT Nurse Only Hematology/Oncology Treatment, [place] [address] [place] [phone] Sandra, Chair 3 Hem On[address] [place] [address] 03/05/2025 9:15 AM EDT Imaging Radiology [facility] [address] [facility], [place] [address] [place] [phone] 03/12/2025 9:30 AM EDT Office Visit Hematology/Oncology [facility] [place] [address] [place] [address] Cipriano Kuhn MD [address] [place] [address] 03/22/2025 9:00 AM EDT [facility] [address] [facility] [place] [phone] Ophelia Solis MD 226 [facility] [place] [address] Scheduled Procedures Name Priority Associated Diagnoses Date/Ti [...] this encounter Medical Devices Implanted Type Area Line Tender Device Identifier Shelf Expiration Date Model / Serial / Lot Cement Hydroset Injectable 5cc - [id number] Implanted:Qty : 1 on 03/15/2018 by Ronak Khoury MD at [place] [facility] [place] Left: Head JOHN 11/09/2019 [id number] / / [id number] Needle Fiducial 22ga - [id number] Implanted:Qty : 1 on 04/01/2023 by Karson Goddard MD at ENDOSCOPY [facility] [place] N/A: Esophagus GIVEN IMAGING [id number] 01/12/2025 DSF-22-01 / / [id number] Stent Wallf Esoph 23/[id number] - [id number] Implanted:Qty : 1 on 04/01/2023 by Karson Goddard MD at ENDOSCOPY [facility] [place] N/A: Esophagus [employer] : ENDOSCOPY [id number] 09/09/2024 [id number] / / [id number] Power Port 8fr Sngl Lumen Plas - [id number] Implanted:Qty : 1 on 04/19/2023 by Ophelia Brown DO at OR [facility] Right: Chest CR BARD : PERIPHERAL VASCULAR [id number] 06/14/2024 [id number] / / [id number] documented as of this encounter Visit Diagnoses [...] Power of Attor yves? No Care Teams Telegraph Service Rater Relationship Specialty Start Date End Date Ophelia Solis MD [address] [place] [address] PCP - General Family Medicine 11/12/24 documented as of this encounter
--- OUTSIDE RECORDS SUMMARY | 2024-12-07 03:30 | External Medical Summary | Summary of Care ---
Author Name Unknown Organization [facility] Address [address] [place] [address] Phone [phone] Care Team Providers Care Exploration Engineer Name Role Phone Thaddeus Solis MD Primary Care Provider [phone] Reason for Visit * Reason Comments Hospital Follow-Up Patient is here toda y for a hospital follow up. Patient states no concerns and states he has noticed he has not had much energy and no appetite. 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 Follow up with your primary care provider for further management. 30 Capsule 09/29/2023 11:25 AM EST 09/29/19 24 Active Scopolamine [...] as needed for Nausea. 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 Not on file Not on file documented as of this encounter Last Filed Vital Signs Vital Sign Reading Time Taken Comments Blood Pressure 107/70 11/19/2024 11:32 AM EDT Pulse 60 11/19/2024 11:32 AM EDT Temperature 36 °C (96.8 °F) 11/19/2024 11:29 AM EDT Respiratory Rate 18 11/19/2024 11:29 AM EDT Oxygen Saturation 100% 11/19/2024 11:29 AM EDT Inhaled Oxygen Concentration - - Weight 53.8 kg (118 lb 8 oz) 11/19/2024 11:29 AM EDT Height 180.3 cm (5' 11") 11/19/2024 11:29 AM EDT Body Mass Index 16.53 11/19/2024 11:29 AM EDT documented in this encounter Functional Status * Are you [...] Kailee Draper RN documented in this encounter Progress Notes * Thaddeus Solis MD - 11/19/2024 5:19 PM EDT Images from the original note were not included. Subjective Sanford Yoder is a 59 year old male that presents for Hospital Follow-Up (Patient is here today for a hospital follow up. /Patient states no concerns and states he has noticed he has not had much energy and no appetite. ) Adm 11/06/24. Discharge 11/08/24 History of Present Illness The patient, with a history of esophageal gastric cancer, presents for a follow- up after recent hospitalizations for suspected diverticulitis and recurrent vomiting episodes. The patient describes these episodes as uncontrollable bouts of vomiting, often requiring hospitalization for IV hydration. The patient reports that lorazepam (Ativan) and Zofran provide some relief, but not always. The patient also reports experiencing abdominal pain, which was recently associated with a diagnosis of diverticulitis. The patient completed a ten-day course of Augmentin for this condition. The patient has also been experiencing weight loss, dropping from a range of 120-125 pounds to 118 pounds. The patient attributes this weight loss to a lack of appetite and difficulty eating large amounts due to the absence of a "holding tank" following surgery for esophageal gastric cancer. The patient reports trying to increase fluid intake with Powerade and is considering nutritional supplements like Ensure or Boost to help gain weight. The patient also mentions a lesion found on his liver, for which a CT scan is scheduled in February. The patient expresses frustration with the ongoing symptoms and the impact on his quality of life, including the inability to eat until later in the day and the rapid onset of vomiting episodes. Objective BP 107/70 (BP Site: Right Arm, BP Position: Sitting, BP Cuff Size: Regular) | Pulse 60 | Temp 96.8 °F (36 °C) (Tympanic) | Resp 18 | Ht 5' 11" (1.803 m) | Wt 118 lb 8 oz (53.8 kg) | SpO2 100% | BMI16.53 kg/m² | BSA 1.64 m² Physical Exam VITALS: BP- 107/70 MEASUREMENTS: Weight- 118. GENERAL: Very thin but strong, able to move easily. CHEST: Lungs clear to auscultation. CARDIOVASCULAR: Regular heart rhythm. ABDOMEN: Abdomen firm, non-tender, no masses. NEUROLOGICAL: Pupils reactive to light. Results LABS Lipase: 389 (11/09/2024) RADIOLOGY CT scan abdomen: Changes consistent with diverticulitis (11/06/2024) CT scan abdomen: Improved diverticulitis changes (11/09/2024) Assessment and Plan Assessment & Plan Recurrent vomiting Recurrent vomiting post-esophageal gastric cancer surgery, requiring ER visits for IV hydration andantiemetics. Lorazepam and ondansetron used with limited success. Episodes less frequent but severe, no clear trigger identified. - Continue lorazepam and ondansetron as needed. - Encourage small, frequent meals and adequate hydration. Diverticulitis Recent hospitalization for diverticulitis with rapid improvement post- antibiotics, raising diagnostic questions. - Monitor for recurrence of symptoms. - Encourage dietary modifications to prevent future episodes. Malnutrition Significant weight loss from 125 lbs to 118 lbs over the past year. Difficulty maintaining weight due to lack of appetite and frequent vomiting. Esophageal gastric cancer and total gastrectomy complicate nutritional intake. - Encourage nutritional supplements like Ensure or Boost. - Advise on small, frequent meals to improve caloric intake. - Monitor weight and nutritional status closely. Follow-up Follow-up care necessary to monitor ongoing issues and any new developments. Upcoming CT scan to evaluate liver lesion. - Schedule follow-up appointment in 4 months. - Ensure follow-up with Dr. Kuhn in February for CT scan to evaluate liver lesion. Wrap-Up Follow Up: Return in about 4 months (around 03/21/2025). I spent a total of 30-39 minutes (exact time 35 mins) on the date of service in preparation, delivery, and documentation of the care provided to Edward Yoder excluding any time spent in the performance of separately billed services. Text in this note was generated using an ambient documentation service. I discussed the use of a device to record and summarize our discussion today. All persons present during the encounter consented to its use. documented in this encounter Nursing Notes * Skye Molina LPN - 11/19/2024 11:28 AM EDT The patient has been properly identified by confirmation of name and date of . Chief Complaint Patient presents with Hospital Follow-Up Patient is here today for a hospital follow up. Patient states no concerns and states he has noticed he has not had much energy and no appetite. documented in this encounter Plan of Treatment Upcoming Encounters Date Type Department Care Team (Late st Contact Info) Description 12/31/2024 10:30 AM EDT Nurse Only Hematology/Oncology Treatment, [place] [address] [place] [phone] Sandra, Chair 3 Hem Onc [facility] [address] [place] [address] 03/05/2025 9:15 AM EDT Imaging Radiology [facility], [place] [address] [place] [phone] 03/12/2025 9:30 AM EDT Office Visit Hematology/Oncology [facility] Sandra [address] [place] [phone] Cipriano Kuhn MD [address] [place] [address] 03/22/2025 9:00 AM EDT Office Visit [facility] [address] [facility] [phone] Thaddeus Solis MD [address] [facility] [place] [address] Scheduled Procedures Name Priority Associated Diagnoses Date/Ti [...] this encounter Medical Devices Implanted Type Area Home Sales Consultant Device Identifier Shelf Expiration Date Model / Serial / Lot Cement Hydroset Injectable 5cc - [id number] Implanted:Qty : 1 on 03/15/2018 by Ronak Khoury MD at [place] [facility] Left: Head JOHN 11/09/2019 [id number] / / [id number] Needle Fiducial 22ga - [id number] Implanted:Qty : 1 on 04/01/2023 by Karson Goddard MD at [place]OS[place] [facility] N/A: Esophagus GIVEN IMAGING [id number] 01/12/2025 [id number]-22-01 / / [id number] Stent Wallf Esoph [id number] - [id number] Implanted:Qty : 1 on 04/01/2023 by Karson Goddard MD at ENDOSCOPY [facility] [place] N/A: Esophagus [employer] : ENDOSCOPY [id number] 09/09/2024 [id number] / / [id number] Power Port 8fr Sngl Lumen Plas - [id number] Implanted:Qty : 1 on 04/19/2023 by Thaddeus Brown DO at OR [facility] Right: Chest CR BARD : PERIPHERAL VASCULAR [id number] 06/14/2024 [id number] / / [id number] documented as of this encounter Visit Diagnoses Diagnosis Lower abdominal pain- Primary Abdominal pain, other specified site 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 No Care Teams Exploration Engineer Relationship Specialty Start Date End Date Thaddeus Solis MD [address] [place] [address] PCP - General Family Medicine 11/12/24 documented as of this encounter
[2024-12-07 08:13] LABS: Basophils # (auto) 0.02 K/uL (0.00-0.20); Basophils % (auto) 0.4 %; Eosinophils # (auto) 0.03 K/uL (0.00-0.50); Eosinophils % (auto) 0.6 %; Hematocrit (blood only) 32.4 % (42.0-52.0); Hemoglobin 11.3 g/dl (14.0-18.0); Immature Granulocytes # (auto) 0.02 K/uL (0.01-0.20); Immature Granulocytes % (auto) 0.4 %; Lymphocytes # (auto) 1.53 K/uL (1.20-3.40); Lymphocytes % (auto) 29.1 %; Mean Corpuscular Hemoglobin 30.5 pg (25.0-34.0); Mean Corpuscular Hgb Conc 34.9 g/dL (32.0-36.0); Mean Corpuscular Volume 87.3 fL (80.0-100.0); Mean Platelet Volume 9.7 fL (9.4-12.4); Monocytes % (auto) 11.4 %; Neutrophils # (auto) 3.06 K/uL (1.40-6.50); Neutrophils % (auto) 58.1 %; Platelet Count 190 K/uL (130-400); RDW Coefficient of Variation 14.3 % (11.5-14.5); RDW Standard Deviation 45.7 fL (36.4-46.3); Red Blood Count 3.71 M/uL (4.70-6.10); White Blood Count 5.26 K/ul (4.8-10.8)
[2024-12-07] MEDS: ENOXAPARIN INJ 40 MG/0.4 ML SYR SQ SCH (08:27)
[2024-12-07] MEDS: PANTOprazole 40 MG TAB PO SCH (08:27)
[2024-12-07] MEDS: FERROUS SULFATE 325 MG TAB PO SCH (08:27)
[2024-12-07] MEDS: ESCITALOPRAM OXALATE 10 MG TAB PO SCH (08:27)
[2024-12-07] MEDS: CHOLECALCIFEROL 25 MCG (1000 UNITS) TAB PO SCH (08:27)
[2024-12-07 08:33] LABS: BUN Creatinine Ratio 14.9 (10-20); Calcium 8.2 mg/dl (8.6-10.3); Creatinine Clr Calc Pharmacy 92.9 ml/min; Magnesium 1.6 mg/dl (1.7-2.4); Potassium 3.9 mmol/L (3.5-5.1)
[2024-12-07] MEDS: APREPITANT 80 MG CAP PO PRN (08:59)
[2024-12-07] MEDS: FOLIC ACID 1 MG TAB PO SCH (12:27)
[2024-12-07 14:41] VITALS: BP 125/73; PULSE 50; TEMP 98.6
[2024-12-07] MEDS: CYANOCOBALAMIN (B-12) 500 MCG TABLET PO SCH (15:09)
--- NOTE | 2024-12-07 16:45 | Discharge Summary ---
Discharge Summary Date of Service December 07, 2024 Principal Dx & Hospital Course #1 = Principal Diagnosis (1) Abdominal pain: 59-year-old male with past medical history significant for severe malnutrition, esophageal/gastric cancer status post neoadjuvant chemotherapy/surgery, surgery consist of total gastrectomy and Yeison-en-Y esophageal jejunal anastomosis, chronic anemia, history of trigeminal neuralgia status post surgery, past tobacco abuse, history of recent diverticulitis and completed antibiotic course comes because of dry heaving and abdominal pain started at 1 PM. As pain was not getting better came to the ER. Currently after the pain medication, pain resolved. Last bowel movement was in the morning and was normal. Micturating okay. No fevers. Denies chest pain or shortness of breath. Denies cough. No headache. No runny nose or sore throat. No earache. Hemodynamics okay. Resting comfortably. Abdominal pain Dry heaving KUB okay Patient had history of total gastrectomy and Yeison-en-Y esophageal jejunal anastomosis Needs to eat in small portions History of similar symptoms in the past Patient was recently treated for diverticulitis end of October 2024 If not improving will get CT scan and GI consult We will keep him n.p.o. 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 In ED, given symptom meds with improvement, but was admitted to medicine. on medicine, patient asymptomatic, tolerated solids well. On 12/07/2024 patient medically stable for discharge home. 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 As pain was not getting better came to the ER. Currently after the pain medication, pain resolved. Last bowel movement was in the morning and was normal. Micturating okay. No fevers. Denies chest pain or shortness of breath. Denies cough. No headache. No runny nose or sore throat. No earache. Hemodynamics okay. Resting comfortably. Past medical history. As mentioned above. Past surgical history. Colonoscopy or EGD. EGD with endoscopic ultrasound. Craniectomy with suboccipital exploration of cranial nerves. Gastrectomy total with esophagoenterostomy, spinal tap. Social history. . Former smoking of cigars. Social drinking. Family history. Father had stroke. Discharge Exam Gen: A&O 3 NAD HEENT: NCAT, EOMI, not icteric. External ears normal. No rhinorrhea. Moist mucous membranes. Neck: Supple, full range of motion, no observable masses, No meningeal sign. Lungs: No Respiratory distress. CV: RRR, no edema. Abdomen: Soft, nondistended, No rebound tenderness. MSK: No joint swelling, no redness. Skin: No rashes, petechiae, lesions. Normal color per patient. Neuro: Normal Gait, Grossly intact. Psych: Appropriate for situation. Updated Medication List Medication Instructions Recorded Confirmed Type escitalopram oxalate 10 mg tablet 10 mg PO QAM 12/22/23 12/06/24 History olanzapine 5 mg tablet (Zyprexa) 5 mg PO HS 12/22/23 12/06/24 History pantoprazole 40 mg tablet,delayed 40 mg PO QAM Heartburn 12/22/23 12/06/24 History release cholecalciferol (vitamin D3) 50 50 mcg PO DAILY 02/13/24 12/06/24 History mcg (2,000 unit) tablet (Vitamin D3) cyanocobalamin (vitamin B-12) 500 500 mcg PO DAILYBD 02/13/24 12/06/24 History mcg tablet (Vitamin B-12) aprepitant 80 mg capsule 80 mg PO DAILY PRN Nausea And 04/13/24 12/06/24 History Vomiting folic acid 1 mg tablet 1 mg PO QDL 04/13/24 12/06/24 History lorazepam 0.5 mg tablet 0.5 mg PO Q6H PRN Anxiety 04/13/24 12/06/24 History morphine concentrate 100 mg/5 mL 10 mg PO Q4H PRN Pain 04/13/24 12/06/24 History (20 mg/mL) oral solution prochlorperazine maleate 10 mg 10 mg PO Q6H PRN Nausea And 04/13/24 12/06/24 History tablet Vomiting ferrous sulfate 325 mg (65 mg 325 mg PO 3XWK 11/06/24 12/06/24 History iron) tablet ondansetron HCl 8 mg tablet 8 mg PO Q8H PRN Nausea And Vomiting 11/06/24 12/06/24 History Hospital Stay Data Consultations 12/06/24 21:01 ED Decision to Admit Stat Pending Results Patient Have Any Pending Studies at Discharge: No Discharge Instructions Given to Patient (Per Discharging Provider) 1. Please eat slowly, with small bites, and soft foods. 2. Follow up with PCP and GI. 3. Please take all medications as prescribed. 4. Please stay hydrated! Total Time Total Time Spent Total Time Spent (In Minutes): I spent a total of 35 minutes in direct patient care, including [id number] time with the patient and/or family, reviewing medical records, ordering and reviewing diagnostic tests, and coordinating care with other healthcare providers. This time includes: history taking, physical examination, medical decision making, counseling, ECG interpretation, imaging interpretation, lab interpretation, orders, and education, excluding time spent in the performance of separately billed services.
[2024-12-07] MEDS ORDERED: OLANZapine 5 MG TABLET PO SCH (21:00)
== END 2024-12-07 17:00 | disposition home or self-care (01) ==
LOC: 3E 17:36 → ED 17:36 → 3E 12-07 01:29

== ENCOUNTER 2024-12-09 13:10 | Observation (INO) ==
--- NOTE | 2024-12-09 13:31 | Emergency Department Note ---
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 The patient states that he has issues with vomiting. He does have Compazine and Zofran to use at home. This morning, he woke up with diffuse abdominal pain and began vomiting. He can tolerate nothing by mouth. No diarrhea, no issues with constipation. No fever, cough or congestion. No shortness of breath. He is concerned that his diverticulitis is again worsening. PMHx/PSHx/Social Hx: See Below PHYSICAL EXAM: GENERAL: Patient is in mild distress from pain, vomiting. Thin and frail. HEENT: No acute trauma, normocephalic atraumatic, mucous membranes moist, no nasal congestion. NECK: No stridor, no adenopathy, no meningismus, trachea is midline. LUNGS: Clear to auscultation bilaterally, no wheeze, no rhonchi, breath sounds equal. HEART: Without murmurs gallops or rubs, regular rate and rhythm. Heart tones are quite distant. ABDOMEN: Soft, no distention, diffusely mildly tender abdomen. EXTREMITIES: No cyanosis, full range of motion of all the joints without pain or difficulty. NEUROLOGIC: Oriented x 3, no acute motor or sensory deficits, no focal weakness. SKIN: No jaundice, no diaphoresis. DIFFERENTIAL DIAGNOSIS: Bowel obstruction, diverticulitis, dehydration, electrolyte imbalance, viral or foodborne illness, among others. EMERGENCY DEPARTMENT PROCEDURES: MEDICAL DECISION MAKING: There is no leukocytosis or concerning anemia. There is a normal platelet count. No bandemia. There is no renal failure. Magnesium slightly low at 1.6. No concerning liver enzyme elevation. No evidence for pancreatitis. Urinalysis showed dehydration, no infection. Abdominal and pelvis CT showed some colonic thickening consistent with possible colitis, no diverticulitis, no abscess, no bowel obstruction. On exam, the patient was actively vomiting. He was not febrile. The patient received 1.5 L of IV saline. He was given IV Zofran, IV Phenergan, IV magnesium and IV Dilaudid. He was eventually given a dose of IV Emend. The patient presents with nausea and vomiting despite his typical outpatient meds. He has a history of the same. No acute surgical findings noted on CT imaging. The patient was persistently nauseated and feeling unwell despite numerous medications given in the ED. The patient requires a hospital stay for further symptom control, further hydration and monitoring. I spoke with the patient and case management, the on-call hospitalist was consulted. Prior/Outside records/notes reviewed: Discharge summary note from 12/07/2024 describing his presentation, hospital course and discharge plan. ECG per my interpretation: Indication was abdominal pain and vomiting. The ECG shows a sinus bradycardia with a rate of 49. No acute ST elevation, no PVCs. The QTc was 420. Continuous Cardiac Monitoring per my interpretation: An order was placed for continuous cardiac monitoring. The monitor shows a rate of 53 with sinus bradycardia. Imaging/x-ray results per my interpretation: Chronic Medical/Social conditions affecting care: Persistent issues with abdominal pain and nausea and vomiting Care/Management discussed with: Case management, the on-call hospitalist. Level of care consideration(s): After review of the information above and other included data: --I believe the patient requires escalation of care to admission DISPOSITION: Admission Past Med/Surg History Problem List (Updated 12/09/24 @ 15:55 by Brian Buck MD) Abnormal abdominal CT scan (Acute) Hypomagnesemia (Acute) Vomiting (Acute) Diffuse abdominal pain (Acute) Abdominal pain (Acute) Pancreatitis (Acute) Intractable nausea and vomiting (Acute) Medical History Acute diverticulitis Intractable nausea and vomiting History of esophageal cancer Severe malnutrition Anemia Esophageal cancer diagnosed 04/2023--chemo/ERCP 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 [place] [place] History of recent blood transfusion 05/02/23 @ [facility] Enteropathogenic Escherichia coli infection Hyponatremia Trigeminal neuralgia Hypomagnesemia Vomiting and diarrhea Iron deficiency received blood transfusion 05/02/23 @ [facility] Surgical History History of colonoscopy History of esophagogastroduodenoscopy (EGD) History of tooth extraction partial upper and lower denture History of ERCP 04/2023 [place] [facility] [place] History of vascular access device A port--power port in placed on right side of chest Family History Father Stroke Social History Smoking Status: Never smoker Tobacco Type: Cigarettes Second Hand Exposure: No; Do You Dip or Chew Tobacco: No; Hx Alcohol Use: Yes Alcohol type: beer Hx Substance Use: Yes Last Used Substance: Days (ago) Preferred Language: Wolof Communication Ability: Effective Medical Terminologist Required: No Beliefs That Will Affect Care: None marital status: Current Living Situation: Spouse Feels Safe at Home: Yes Assistive Devices: Cane, Denture - Upper and Denture - Lower Allergies Allergies Allergy/AdvReac Type Severity Reaction Status Date / Time carbamazepine [From Tegretol] Allergy Mild Rash Verified 12/06/24 21:40 Home Meds Home Medications Medication Instructions Recorded Confirmed escitalopram oxalate 10 mg tablet 10 mg PO QAM 12/22/23 12/09/24 olanzapine 5 mg tablet (Zyprexa) 5 mg PO HS 12/22/23 12/09/24 pantoprazole 40 mg tablet,delayed 40 mg PO QAM Heartburn 12/22/23 12/09/24 release cholecalciferol (vitamin D3) 50 50 mcg PO DAILY 02/13/24 12/09/24 mcg (2,000 unit) tablet (Vitamin D3) cyanocobalamin (vitamin B-12) 500 500 mcg PO DAILYBD 02/13/24 12/09/24 mcg tablet (Vitamin B-12) aprepitant 80 mg capsule 80 mg PO DAILY PRN Nausea And 04/13/24 12/09/24 Vomiting folic acid 1 mg tablet 1 mg PO QDL 04/13/24 12/09/24 lorazepam 0.5 mg tablet 0.5 mg PO Q6H PRN Anxiety 04/13/24 12/09/24 morphine concentrate 100 mg/5 mL 10 mg PO Q4H PRN Pain 04/13/24 12/09/24 (20 mg/mL) oral solution prochlorperazine maleate 10 mg 10 mg PO Q6H PRN Nausea And 04/13/24 12/09/24 tablet Vomiting ferrous sulfate 325 mg (65 mg 325 mg PO 3XWK 11/06/24 12/09/24 iron) tablet ondansetron HCl 8 mg tablet 8 mg PO Q8H PRN Nausea And Vomiting 11/06/24 12/09/24 Results & Data (ED) Vital Signs Vital Signs - 24 hr 12/09/24 13:14 12/09/24 13:23 12/09/24 13:30 Temperature 36.7 C Temperature Source Temporal Artery Scan Pulse Rate 64 51 L Pulse Rate [Apical] Pulse Rate from SpO2 Sensor 51 L Pulse Strength Normal Respiratory Rate 16 24 Respiratory Effort / Characteristics Non-Labored Spontaneous Respiratory Depth Normal Respiratory Pattern Regular Blood Pressure 153/96 H 183/102 H Blood Pressure [Right Arm] Blood Pressure Mean 115 129 Blood Pressure Mean [Right Arm] Blood Pressure Position Sitting Pulse Oximetry 98 99 99 Oxygen Delivery Method Room Air Room Air Sepsis Recent Fever Within 48 Hours No Sepsis New/Unexplained Change in Mental Status No Sepsis Action Taken by Nursing No Action Required 12/09/24 13:31 12/09/24 13:53 12/09/24 14:00 Temperature Temperature Source Pulse Rate 53 L 54 L Pulse Rate [Apical] Pulse Rate from SpO2 Sensor 53 L Pulse Strength Respiratory Rate 18 Respiratory Effort / Characteristics Respiratory Depth Respiratory Pattern Blood Pressure 170/93 H Blood Pressure [Right Arm] Blood Pressure Mean 122 Blood Pressure Mean [Right Arm] Blood Pressure Position Pulse Oximetry 97 Oxygen Delivery Method Sepsis Recent Fever Within 48 Hours Sepsis New/Unexplained Change in Mental Status Sepsis Action Taken by Nursing 12/09/24 14:08 12/09/24 14:58 Temperature Temperature Source Pulse Rate 53 L Pulse Rate [Apical] 56 L Pulse Rate from SpO2 Sensor 53 L Pulse Strength Respiratory Rate 22 16 Respiratory Effort / Characteristics Non-Labored Spontaneous Respiratory Depth Respiratory Pattern Blood Pressure Blood Pressure [Right Arm] 180/105 H Blood Pressure Mean Blood Pressure Mean [Right Arm] 130 Blood Pressure Position Pulse Oximetry 96 97 Oxygen Delivery Method Room Air Sepsis Recent Fever Within 48 Hours Sepsis New/Unexplained Change in Mental Status Sepsis Action Taken by Skilled Nursing Medications Current Medication List: was personally reviewed by me Laboratory Data Attestation: I reviewed the patient's lab results. 12/09/24 13:24 12/09/24 13:35 Lab Results 12/09/24 12/09/24 12/09/24 Range/Units 13:24 13:35 15:25 WBC 5.47 (4.8-10.8) K/ul RBC 4.25 L (4.70-6.10) M/uL Hgb 13.0 L (14.0-18.0) g/dl Hct 37.4 L (42.0-52.0) % MCV 88.0 (80.0-100.0) fL MCH 30.6 (25.0-34.0) pg MCHC 34.8 (32.0-36.0) g/dL RDW Std Deviation 44.8 (36.4-46.3) fL RDW Coeff of Stone 14.0 (11.5-14.5) % Plt Count 171 (130-400) K/uL MPV 9.7 (9.4-12.4) fL Immature Gran % (Auto) 0.4 % Neut % (Auto) 69.7 % Lymph % (Auto) 19.6 % Sampson % (Auto) 9.7 % Eos % (Auto) 0.2 % Baso % (Auto) 0.4 % Neut # (Auto) 3.82 (1.40-6.50) K/uL Lymph # (Auto) 1.07 L (1.20-3.40) K/uL Sampson # (Auto) 0.53 (0.11-0.59) K/uL Eos # (Auto) 0.01 (0.00-0.50) K/uL Baso # (Auto) 0.02 (0.00-0.20) K/uL Immature Gran # (Auto) 0.02 (0.01-0.20) K/uL Sodium 140 (136-145) mmol/L Potassium 3.7 (3.5-5.1) mmol/L Chloride 106 (98-107) mmol/L Carbon Dioxide 24 (21-32) mmol/L Anion Gap 10 (3-11) BUN 10 (6-23) mg/dl Creatinine 0.67 (0.6-1.4) mg/dl Est Cr Clr Drug Dosing 91.2 ml/min eGFR 106.89 BUN/Creatinine Ratio 14.9 (10-20) Glucose 99 (70-99(Fasting)) mg/dl Calcium 8.8 (8.6-10.3) mg/dl Magnesium 1.6 L (1.7-2.4) mg/dl Total Bilirubin 0.7 (0.2-1.0) mg/dl AST 21 (13-39) U/L ALT 15 (7-52) U/L Alkaline Phosphatase 58 (34-104) U/L Total Protein 6.5 (6.0-8.3) gm/dl Albumin 4.1 (3.4-5.0) gm/dl Globulin 2.4 L (2.5-4.0) gm/dl Albumin/Globulin Ratio 1.7 (0.9-2) Lipase 40 (11-82) U/L Urine Color Yellow Urine Appearance Clear (Clear) Urine pH 7.5 (4.5-7.5) Ur Specific [place] > 1.045 H (1.000-1.030) Urine Protein Trace H (Negative) Urine Glucose (UA) Negative (Negative) Urine Ketones 2+ H (Negative) Urine Blood Negative (Negative) Urine Nitrite Negative (Negative) Urine Bilirubin Negative (Negative) Urine Urobilinogen Negative (Negative) Ur Leukocyte Esterase Negative (Negative) Urine WBC (Auto) 0-5 (0-5) /hpf Urine RBC (Auto) 0-2 (0-2) /hpf U Hyaline Cast (Auto) 0-2 (0-2) /lpf U Epithel Cells (Auto) 0-2 (0-2) /hpf Urine Bacteria (Auto) None Seen (None Seen) Administered Medications Sodium Chloride (Nss) 1,000 mls @ 999 mls/hr IV .Q1H1M ONE Stop: 12/09/24 15:54 Last Admin: 12/09/24 15:24 Dose: 999 mls/hr Documented By: BALDO Discontinued Medications Hydromorphone HCl (Hydromorphone Inj 0.5 Mg/0.5 Ml Syr) 0.5 mg IV NOW STA Stop: 12/09/24 13:27 Last Admin: 12/09/24 13:39 Dose: 0.5 mg Documented By: MWS Promethazine HCl (Phenergan) 6.25 mg in 50.25 mls @ 201 mls/hr IV NOW STA Stop: 12/09/24 13:35 Last Infusion: 12/09/24 14:14 Dose: Infused Documented By: Admin: 12/09/24 13:36 Dose: 201 mls/hr Documented By: SHANNON Sodium Chloride (Nss) 500 mls @ 999 mls/hr IV .Q31M ONE Stop: 12/09/24 13:51 Last Infusion: 12/09/24 14:14 Dose: Infused Documented By: Admin: 12/09/24 13:37 Dose: 999 mls/hr Documented By: SHANNON Magnesium Sulfate/Dextrose (Magnesium Sulfate / D5w) 1 gm in 100 mls @ 100 mls/hr IV NOW STA Stop: 12/09/24 15:10 Last Admin: 12/09/24 14:44 Dose: 100 mls/hr Documented By: SANTO Fosaprepitant 115 mg/ Sodium (Chloride) 115 mls @ 450 mls/hr IV ONE ONE Stop: 12/09/24 15:02 Last Admin: 12/09/24 15:30 Dose: 450 mls/hr Documented By: BALDO Ioversol (Optiray 320 100ml) 93 ml IV ONCE ONE Stop: 12/09/24 14:34 Last Admin: 12/09/24 14:33 Dose: 93 ml Documented By: PARISH Ondansetron HCl (Ondansetron Inj 2 Mg/Ml 2 Ml Vial) 4 mg IV NOW STA Stop: 12/09/24 13:22 Last Admin: 12/09/24 13:36 Dose: 4 mg Documented By: SHANNON Imaging Data Radiologist's Impression: Abdomen/Pelvis CT 12/09/24 13:26 EXAMINATION: CT of the abdomen and pelvis performed after the administration of IV contrast TECHNIQUE: Helical CT images from the lung bases through the symphysis pubis were obtained with contrast. Coronal and sagittal reformatted images were generated at a workstation for further assessment. Dose reduction techniques were achieved by using automatic exposure control and/or adjustment of mA and/or kV according to patient size and/or use of iterative reconstruction technique. COMPARISON: 11/09/2024 HISTORY: Abdominal pain FINDINGS: Lower chest: No consolidation. No pleural effusion or pneumothorax. Liver: No suspicious liver lesions. Portal veins appear patent. Gallbladder: No gallstones. No evidence of acute cholecystitis. Spleen: Normal size. Pancreas: No suspicious pancreatic lesions. The pancreatic duct is not dilated. Adrenal glands: No adrenal nodules. Kidneys: No hydronephrosis or obstructing renal stones. Bladder / Pelvic organs: Unremarkable. Bowel: No bowel obstruction. Mild wall thickening of the sigmoid colon is again seen.. The appendix is unremarkable. Yeison-en-Y gastric bypass changes. Small sliding hiatal hernia. Lymph nodes: No retroperitoneal, mesenteric, or pelvic lymphadenopathy. Peritoneum / Retroperitoneum: There is mild free fluid in the pelvis again seen. Mild edema throughout the lower abdominal mesentery. No free air. Vessels: No infrarenal aortic aneurysm. Bones and soft tissues: No suspicious lesion in the bones. IMPRESSION: Mild wall thickening of the sigmoid colon again seen, with colitis not excluded. Mild free pelvic fluid and lower abdominal mesenteric edema seen, as on prior. Electronically signed by Jossue Thomas 12-09-2024 3:35 PM Discharge Plan Visit Data Chief Complaint: Abdominal Pain Stated Complaint: SEVERE ABD PAIN, DIVERTICULITIS, VOMITING ED Provider: Brian Buck Discharge Problem: Diffuse abdominal pain, Vomiting, Hypomagnesemia, Abnormal abdominal CT scan Patient Disposition: Admitted As Inpatient Condition: Fair Forms Stand Alone Forms: [facility], Important Visit Information Prescriptions Prescriptions: No Action cyanocobalamin (vitamin B-12) [Vitamin B-12] 500 mcg Tablet 500 mcg PO DAILYBD cholecalciferol (vitamin D3) [Vitamin D3] 50 mcg (2,000 unit) Tablet 50 mcg PO DAILY olanzapine [Zyprexa] 5 mg tablet 5 mg PO HS pantoprazole 40 mg tablet,delayed release (DR/EC) 40 mg PO QAM escitalopram oxalate 10 mg tablet 10 mg PO QAM morphine concentrate 100 mg/5 mL (20 mg/mL) solution 10 mg PO Q4H PRN (Reason: Pain) Hold Instructions: Resume on 12/11/24. Rx Instructions: 0.5 ML q4h prn prochlorperazine maleate 10 mg tablet 10 mg PO Q6H PRN (Reason: Nausea And Vomiting) lorazepam 0.5 mg tablet 0.5 mg PO Q6H PRN (Reason: Anxiety) folic acid 1 mg tablet 1 mg PO QDL aprepitant 80 mg capsule 80 mg PO DAILY PRN (Reason: Nausea And Vomiting) ondansetron HCl 8 mg tablet 8 mg PO Q8H PRN (Reason: Nausea And Vomiting) ferrous sulfate 325 mg (65 mg iron) Tablet 325 mg PO 3XWK Hold Instructions: Resume on 12/14/24. Rx Instructions: Mon/Tue/Tue Referrals Referrals: Thaddeus Solis MD [Primary Care Provider] - Discharge Problem: Vomiting Qualifiers: Vomiting type: unspecified Nausea presence: with nausea Qualified Code(s): R 11.2 - Nausea with vomiting, unspecified
[2024-12-09] MEDS: ONDANSETRON INJ 2 MG/ML 2 ML VIAL IV STA (13:36)
[2024-12-09] MEDS: PROMETHAZINE 6.25 MG/50.25 ML BAG IV STA (13:36)
[2024-12-09] MEDS: SODIUM CHLORIDE 0.9% 500 ML IV ONE (13:37)
[2024-12-09] MEDS: HYDROmorphone INJ 0.5 MG/0.5 ML SYR IV STA (13:39)
[2024-12-09 13:47] LABS: Basophils # (auto) 0.02 K/uL (0.00-0.20); Basophils % (auto) 0.4 %; Eosinophils # (auto) 0.01 K/uL (0.00-0.50); Eosinophils % (auto) 0.2 %; Hematocrit (blood only) 37.4 % (42.0-52.0); Immature Granulocytes # (auto) 0.02 K/uL (0.01-0.20); Immature Granulocytes % (auto) 0.4 %; Lymphocytes # (auto) 1.07 K/uL (1.20-3.40); Lymphocytes % (auto) 19.6 %; Mean Corpuscular Hemoglobin 30.6 pg (25.0-34.0); Mean Corpuscular Hgb Conc 34.8 g/dL (32.0-36.0); Mean Platelet Volume 9.7 fL (9.4-12.4); Monocytes # (auto) 0.53 K/uL (0.11-0.59); Monocytes % (auto) 9.7 %; Neutrophils # (auto) 3.82 K/uL (1.40-6.50); Neutrophils % (auto) 69.7 %; Platelet Count 171 K/uL (130-400); RDW Standard Deviation 44.8 fL (36.4-46.3); Red Blood Count 4.25 M/uL (4.70-6.10); White Blood Count 5.47 K/ul (4.8-10.8)
[2024-12-09 14:08] LABS: Alanine Aminotransferase 15 U/L (7-52); Albumin Globulin Ratio 1.7 (0.9-2); Albumin Level 4.1 gm/dl (3.4-5.0); Alkaline Phosphatase 58 U/L (34-104); Anion Gap 10 (3-11); Aspartate Aminotransferase 21 U/L (13-39); BUN Creatinine Ratio 14.9 (10-20); Bilirubin,Total 0.7 mg/dl (0.2-1.0); Blood Urea Nitrogen 10 mg/dl (6-23); Calcium 8.8 mg/dl (8.6-10.3); Carbon Dioxide 24 mmol/L (21-32); Chloride 106 mmol/L (98-107); Creatinine Clr Calc Pharmacy 91.2 ml/min; Globulin 2.4 gm/dl (2.5-4.0); Glucose 99 mg/dl (70-99(Fasting)); Lipase 40 U/L (11-82); Magnesium 1.6 mg/dl (1.7-2.4); Potassium 3.7 mmol/L (3.5-5.1); Sodium 140 mmol/L (136-145); Total Protein 6.5 gm/dl (6.0-8.3)
[2024-12-09] MEDS: OPTIRAY 320 100ml IV ONE (14:33)
[2024-12-09] MEDS: MAGNESIUM SULFATE / D5W 1 GM/100 ML BAG IV STA (14:44)
[2024-12-09] MEDS: SODIUM CHLORIDE 0.9% 1,000 ML IV ONE (15:24)
[2024-12-09] MEDS: FOSAPREPITANT DIMEGLUMINE IV ONE (15:30)
[2024-12-09] MEDS: SODIUM CHLORIDE 0.9% IV ONE (15:30)
--- NOTE | 2024-12-09 15:35 | CT Scan Report ---
EXAMINATION: CT of the abdomen and pelvis performed after the administration of IV contrast TECHNIQUE: Helical CT images from the lung bases through the symphysis pubis were obtained with contrast. Coronal and sagittal reformatted images were generated at a workstation for further assessment. Dose reduction techniques were achieved by using automatic exposure control and/or adjustment of mA and/or kV according to patient size and/or use of iterative reconstruction technique. COMPARISON: 11/09/2024 HISTORY: Abdominal pain FINDINGS: Lower chest: No consolidation. No pleural effusion or pneumothorax. Liver: No suspicious liver lesions. Portal veins appear patent. Gallbladder: No gallstones. No evidence of acute cholecystitis. Spleen: Normal size. Pancreas: No suspicious pancreatic lesions. The pancreatic duct is not dilated. Adrenal glands: No adrenal nodules. Kidneys: No hydronephrosis or obstructing renal stones. Bladder / Pelvic organs: Unremarkable. Bowel: No bowel obstruction. Mild wall thickening of the sigmoid colon is again seen.. The appendix is unremarkable. Yeison-en-Y gastric bypass changes. Small sliding hiatal hernia. Lymph nodes: No retroperitoneal, mesenteric, or pelvic lymphadenopathy. Peritoneum / Retroperitoneum: There is mild free fluid in the pelvis again seen. Mild edema throughout the lower abdominal mesentery. No free air. Vessels: No infrarenal aortic aneurysm. Bones and soft tissues: No suspicious lesion in the bones. IMPRESSION: Mild wall thickening of the sigmoid colon again seen, with colitis not excluded. Mild free pelvic fluid and lower abdominal mesenteric edema seen, as on prior. Electronically signed by Jossue Thomas 12-09-2024 3:35 PM
[2024-12-09 15:40] LABS: Appearance Urine Clear (Clear); Bacteria Urine Automated None Seen (None Seen); Bilirubin Urine Negative (Negative); Blood Urine Negative (Negative); Cast Urine Automated 0-2 /lpf (0-2); Color Urine Yellow; Epithelial Cell Urine Auto 0-2 /hpf (0-2); Glucose Urine UA Negative (Negative); Ketones Urine 2+ (Negative); Leukocyte Esterase Urine Negative (Negative); Nitrite Urine Negative (Negative); Protein Urine Trace (Negative); RBC Urine Automated 0-2 /hpf (0-2); Specific Gravity Urine > 1.045 (1.000-1.030); Urobilinogen Urine Negative (Negative); WBC Urine Automated 0-5 /hpf (0-5); pH Urine 7.5 (4.5-7.5)
[2024-12-09] MEDS ORDERED: POLYETHYLENE (MIRALAX) 17 GM PACK PO PRN (16:21)
[2024-12-09] MEDS ORDERED: MAGNESIUM HYDROXIDE SUSP 30 ML UDC PO PRN (16:21)
[2024-12-09] MEDS: ACETAMINOPHEN 325 MG TAB PO PRN (16:38)
[2024-12-09] MEDS: SODIUM CHLORIDE 0.9% 500 ML IV SCH (16:39)
[2024-12-09] MEDS: THIAMINE HCL 200 MG in SODIUM CHLORIDE 0.9% 50 ML IV STA (16:47)
--- NOTE | 2024-12-09 16:51 | History & Physical Report ---
Date of Service December 09, 2024 Assessment & Plan (1) Abdominal pain: Plan Assessment/plan Recurrent abdominal pain Intractable nausea/vomiting Patient presents to the hospital with recurrent episode of abdominal pain Recent hospitalization with similar symptoms Hospitalized a month ago with diverticulitis; underwent antibiotic course Abdomen/pelvic CT shows mild wall thickening of sigmoid colon again similar to CT abdomen pelvis done earlier in october Full liquid diet, advance as tolerated IV fluid with normal saline Thiamine supplementation Trial of Bentyl 10 mg 3 times daily Protonix increased to twice a day to see if increasing reflux is contributing to the symptoms iv zofran for nausea/vomiting continue zyprexa hs GI consulted for comanagement given recurrent nature of the abdominal pain and repeated hospitalization. Hypomagnesemiarepleted; Will start magnesium supplement Severe malnutritiondietitian consulted; Also will benefit from discussion of dietary changes given his history of total gastrectomy DVT prophylaxis heparin Full code Time spent evaluating patient, direct bedside care, chart review, placing orders, interpretation of diagnostic studies, discussion with consultants, patient, and family members, as well as other required patient management activities is 75 minutes Please note the above document was generated using voice recognition software. It may contain grammatical, syntax or spelling errors. Any formal questions or concerns about the content, text or information contained within the body of this dictation should be directly addressed to the provider for clarification History of Present Illness Primary Care Provider: Thaddeus Solis MD History obtained from interview with the patient and chart review. Medical history significant for severe malnutrition, esophageal/gastric cancer status post neoadjuvant chemotherapy/surgery, surgery consist of total gastrectomy and Yeison-en-Y esophageal jejunal anastomosis, chronic anemia, history of trigeminal neuralgia status post surgery, past tobacco abuse Recent hospitalization on 12/07 with abdominal pain; observe overnight and discharged. Patient was discharged couple of days ago from the hospital and was feeling much better. However, after he had the breakfast today morning he started to have generalized abdominal pain, nausea and vomiting which prompted him to come to the ED. He denies any blood in the vomitus. He denies change in his bowel habit. He denies fever, chills, chest pain, weakness/numbness of any body part. Allergies Allergy/AdvReac Type Severity Reaction Status Date / Time carbamazepine [From Tegretol] Allergy Mild Rash Verified 12/06/24 21:40 Home Medications Medication Instructions Recorded Confirmed Type escitalopram oxalate 10 mg tablet 10 mg PO QAM 12/22/23 12/09/24 History olanzapine 5 mg tablet (Zyprexa) 5 mg PO HS 12/22/23 12/09/24 History pantoprazole 40 mg tablet,delayed 40 mg PO QAM Heartburn 12/22/23 12/09/24 History release cholecalciferol (vitamin D3) 50 50 mcg PO DAILY 02/13/24 12/09/24 History mcg (2,000 unit) tablet (Vitamin D3) cyanocobalamin (vitamin B-12) 500 500 mcg PO DAILYBD 02/13/24 12/09/24 History mcg tablet (Vitamin B-12) aprepitant 80 mg capsule 80 mg PO DAILY PRN Nausea And 04/13/24 12/09/24 History Vomiting folic acid 1 mg tablet 1 mg PO QDL 04/13/24 12/09/24 History lorazepam 0.5 mg tablet 0.5 mg PO Q6H PRN Anxiety 04/13/24 12/09/24 History morphine concentrate 100 mg/5 mL 10 mg PO Q4H PRN Pain 04/13/24 12/09/24 History (20 mg/mL) oral solution prochlorperazine maleate 10 mg 10 mg PO Q6H PRN Nausea And 04/13/24 12/09/24 History tablet Vomiting ferrous sulfate 325 mg (65 mg 325 mg PO 3XWK 11/06/24 12/09/24 History iron) tablet ondansetron HCl 8 mg tablet 8 mg PO Q8H PRN Nausea And Vomiting 11/06/24 12/09/24 History Past Med/Surg History Problem List (Updated 12/09/24 @ 15:55 by Brian Buck MD) Abnormal abdominal CT scan (Acute) Hypomagnesemia (Acute) Vomiting (Acute) Diffuse abdominal pain (Acute) Abdominal pain (Acute) Pancreatitis (Acute) Intractable nausea and vomiting (Acute) Medical History Acute diverticulitis Intractable nausea and vomiting History of esophageal cancer Severe malnutrition Anemia Esophageal cancer diagnosed 04/2023--chemo/ERCP 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 Edmonds/[facility] History of recent blood transfusion 05/02/23 @ [facility] Enteropathogenic Escherichia coli infection Hyponatremia Trigeminal neuralgia Hypomagnesemia Vomiting and diarrhea Iron deficiency received blood transfusion 05/02/23 @ [facility] Surgical History History of colonoscopy History of esophagogastroduodenoscopy (EGD) History of tooth extraction partial upper and lower denture History of ERCP 04/2023 @ [facility] History of vascular access device A port--power port in placed on right side of chest Family History Father Stroke Social History Smoking Status: Never smoker Tobacco Type: Cigarettes Second Hand Exposure: No; Do You Dip or Chew Tobacco: No; Hx Alcohol Use: Yes Alcohol type: beer Hx Substance Use: Yes Last Used Substance: Days (ago) Preferred Language: British Communication Ability: Effective Distribution Field Engineer Required: No Beliefs That Will Affect Care: None marital status: Current Living Situation: Spouse Feels Safe at Home: Yes Assistive Devices: Cane, Denture - Upper and Denture - Lower Physical Exam Physical Exam: On physical examination; Constitutional: WD/WN, vitals as above, NAD, sitting up in bed, pleasant, conversing easily Respiratory: normal respiratory effort, lungs clear to auscultation, no wheeze, rales, rhonchi. Normal insp/exp effort, no accessory muscle use Cardiovascular: RRR, no murmur, no edema Vessels: no JVD or carotid bruit Chest: normal inspection of chest Abdomen: Tenderness on deep palpation in left lower quadrant pain Musculoskeletal: no cyanosis or clubbing, extremities motor strength 5/5 Skin: no rashes, warm and dry normal turgor Neurologic: PERRL, EOMI, accommodation nl, no face palsy, no dysarthria CN's II- XI intact bilaterally and moves all extremities Psychiatric: A+Ox3, euthymic affect Results & Data Results & Data Vital Signs (Past 12 Hours) Vital Signs Temp Pulse Pulse Resp BP BP Pulse Ox 12/09/24 16:00 58 L 16 167/102 H 97 12/09/24 14:58 56 L 16 180/105 H 97 12/09/24 14:08 53 L 22 96 12/09/24 14:00 170/93 H 12/09/24 13:53 54 L 18 97 12/09/24 13:31 53 L 12/09/24 13:30 51 L 24 183/102 H 99 12/09/24 13:23 99 12/09/24 13:14 36.7 C 64 16 153/96 H 98 O2 Del Method 12/09/24 16:00 Room Air 12/09/24 14:58 Room Air 12/09/24 14:08 12/09/24 14:00 12/09/24 13:53 12/09/24 13:31 12/09/24 13:30 12/09/24 13:23 Room Air 12/09/24 13:14 Room Air Code Status & VTE Plan VTE Prophylaxis Plan VTE Prophylaxis will be ordered: Yes
[2024-12-09 16:56] LABS: C Reactive Protein < 0.50 mg/dl (0-0.5)
[2024-12-09] MEDS ORDERED: MoRPHine SULFATE 10 MG/0.5 ML UDP PO PRN (18:15)
[2024-12-09] MEDS ORDERED: LORazepam 0.5 MG TAB PO PRN (18:15)
[2024-12-09] MEDS: OLANZapine 5 MG TABLET PO SCH (20:20)
[2024-12-09] MEDS: DICYCLOMINE HCL 10 MG CAP PO SCH (20:20)
[2024-12-09] MEDS: HEPARIN SOD 5,000 UNIT/0.5 ML VIAL SQ SCH (20:20)
[2024-12-09] MEDS: PANTOprazole 40 MG TAB PO SCH (20:20)
[2024-12-09] MEDS: ONDANSETRON INJ 2 MG/ML 2 ML VIAL IV PRN (21:02)
[2024-12-10 07:21] VITALS: O2SAT 98
[2024-12-10] MEDS: ESCITALOPRAM OXALATE 10 MG TAB PO SCH (08:00)
[2024-12-10] MEDS: MAGNESIUM OXIDE 400 MG TAB PO SCH (08:00)
[2024-12-10] MEDS: CHOLECALCIFEROL 25 MCG (1000 UNITS) TAB PO SCH (08:01)
[2024-12-10 09:05] LABS: Basophils # (auto) 0.03 K/uL (0.00-0.20); Basophils % (auto) 0.6 %; Eosinophils # (auto) 0.07 K/uL (0.00-0.50); Eosinophils % (auto) 1.5 %; Hemoglobin 12.1 g/dl (14.0-18.0); Immature Granulocytes # (auto) 0.01 K/uL (0.01-0.20); Immature Granulocytes % (auto) 0.2 %; Lymphocytes # (auto) 1.64 K/uL (1.20-3.40); Lymphocytes % (auto) 35.3 %; Mean Corpuscular Hemoglobin 30.5 pg (25.0-34.0); Mean Corpuscular Hgb Conc 33.6 g/dL (32.0-36.0); Mean Corpuscular Volume 90.7 fL (80.0-100.0); Monocytes # (auto) 0.41 K/uL (0.11-0.59); Monocytes % (auto) 8.8 %; Neutrophils # (auto) 2.48 K/uL (1.40-6.50); Neutrophils % (auto) 53.6 %; Platelet Count 154 K/uL (130-400); RDW Coefficient of Variation 14.2 % (11.5-14.5); RDW Standard Deviation 47.5 fL (36.4-46.3); Red Blood Count 3.97 M/uL (4.70-6.10); White Blood Count 4.64 K/ul (4.8-10.8)
--- NOTE | 2024-12-10 09:13 | Gastroenterology Progress Note ---
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 Edmonds, 5 cm abscess near the EJ anastomosis, hx of PEG placement in 2023 due to malnutrition, chronic anemia, history of trigeminal neuralgia and others below recently admitted w/ loose stools and abdominal pain. 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 Edmonds, 5 cm abscess near the EJ anastomosis, hx of PEG placement in 2023 due to malnutrition, chronic anemia, history of trigeminal neuralgia and others below recently admitted w/ diverticulitis who is re-admitted w/ abdominal pain. Pt was seen evaluated, chart reviewed. Suggests he developed lower abd pain associated w/ diarrhea on Tuesday. Pain felt similar, but less severe, than his recent episodes of diverticulitis. Denies nausea/vomiting. Suggests this AM, pain is resolved. He had a semi-formed, nonbloody stool this AM. CTAP 2024: l: No bowel obstruction. Mild wall thickening of the sigmoid colon is again seen.. The appendix is unremarkable. Yeison-en-Y gastric bypass changes. Small sliding hiatal hernia. EGD 2023: An esophago-jejunal anastomosis was found. - Normal examined jejunum. - Feeding tube placement was successfully performed. - No specimens collected. - All instruments are visually inspected immediately before and after removal from the patient to ensure they are fully intact. Colonoscopy 2022: The examined portion of the ileum was normal. - One 7 mm polyp in the sigmoid colon, removed with a hot snare. Resected and retrieved. - Diverticulosis in the sigmoid colon. - Internal hemorrhoids. - The examination was otherwise normal on direct and retroflexion views. Review of Systems Review of Systems: All other findings negative except as noted in HPI. Physical Exam Constitutional: WD/WN, vitals as above Respiratory: normal respiratory effort, lungs clear to auscultation Cardiovascular: RRR, no murmur, no edema Gastrointestinal (Abdomen): normal bowel sounds, soft, nontender, no hepatosplenomegaly Skin: no rashes, warm and dry Results & Data Results & Data Vital Signs (Past 12 Hours) Vital Signs Temp Pulse Resp BP Pulse Ox O2 Del Method 12/10/24 07:17 97.7 F 54 L 17 109/70 98 Room Air Laboratory Results 12/10/24 12/09/24 12/09/24 Range/Units 08:39 15:25 13:35 WBC 4.64 L (4.8-10.8) K/ul RBC 3.97 L (4.70-6.10) M/uL Hgb 12.1 L (14.0-18.0) g/dl Hct 36.0 L (42.0-52.0) % MCV 90.7 (80.0-100.0) fL MCH 30.5 (25.0-34.0) pg MCHC 33.6 (32.0-36.0) g/dL RDW Std Deviation 47.5 H (36.4-46.3) fL RDW Coeff of Stone 14.2 (11.5-14.5) % Plt Count 154 (130-400) K/uL MPV 10.0 (9.4-12.4) fL Immature Gran % (Auto) 0.2 % Neut % (Auto) 53.6 % Lymph % (Auto) 35.3 % [place] % (Auto) 8.8 % Eos % (Auto) 1.5 % Baso % (Auto) 0.6 % Neut # (Auto) 2.48 (1.40-6.50) K/uL Lymph # (Auto) 1.64 (1.20-3.40) K/uL [place] # (Auto) 0.41 (0.11-0.59) K/uL Eos # (Auto) 0.07 (0.00-0.50) K/uL Baso # (Auto) 0.03 (0.00-0.20) K/uL Immature Gran # (Auto) 0.01 (0.01-0.20) K/uL Sodium Pending 140 (136-145) mmol/L Potassium Pending 3.7 (3.5-5.1) mmol/L Chloride Pending 106 (98-107) mmol/L Carbon Dioxide Pending 24 (21-32) mmol/L Anion Gap Pending 10 (3-11) BUN Pending 10 (6-23) mg/dl Creatinine Pending 0.67 (0.6-1.4) mg/dl Est Cr Clr Drug Dosing Pending 91.2 ml/min eGFR Pending 106.89 BUN/Creatinine Ratio Pending 14.9 (10-20) Glucose Pending 99 (70-99(Fasting)) mg/dl Calcium Pending 8.8 (8.6-10.3) mg/dl Magnesium 1.6 L (1.7-2.4) mg/dl Total Bilirubin 0.7 (0.2-1.0) mg/dl AST 21 (13-39) U/L ALT 15 (7-52) U/L Alkaline Phosphatase 58 (34-104) U/L C-Reactive Protein < 0.50 (0-0.5) mg/dl Total Protein 6.5 (6.0-8.3) gm/dl Albumin 4.1 (3.4-5.0) gm/dl Globulin 2.4 L (2.5-4.0) gm/dl Albumin/Globulin Ratio 1.7 (0.9-2) Lipase 40 (11-82) U/L Urine Color Yellow Urine Appearance Clear (Clear) Urine pH 7.5 (4.5-7.5) Ur Specific [place] > 1.045 H (1.000-1.030) Urine Protein Trace H (Negative) Urine Glucose (UA) Negative (Negative) Urine Ketones 2+ H (Negative) Urine Blood Negative (Negative) Urine Nitrite Negative (Negative) Urine Bilirubin Negative (Negative) Urine Urobilinogen Negative (Negative) Ur Leukocyte Esterase Negative (Negative) Urine WBC (Auto) 0-5 (0-5) /hpf Urine RBC (Auto) 0-2 (0-2) /hpf U Hyaline Cast (Auto) 0-2 (0-2) /lpf U Epithel Cells (Auto) 0-2 (0-2) /hpf Urine Bacteria (Auto) None Seen (None Seen) 12/09/24 Range/Units 13:24 WBC 5.47 (4.8-10.8) K/ul RBC 4.25 L (4.70-6.10) M/uL Hgb 13.0 L (14.0-18.0) g/dl Hct 37.4 L (42.0-52.0) % MCV 88.0 (80.0-100.0) fL MCH 30.6 (25.0-34.0) pg MCHC 34.8 (32.0-36.0) g/dL RDW Std Deviation 44.8 (36.4-46.3) fL RDW Coeff of Stone 14.0 (11.5-14.5) % Plt Count 171 (130-400) K/uL MPV 9.7 (9.4-12.4) fL Immature Gran % (Auto) 0.4 % Neut % (Auto) 69.7 % Lymph % (Auto) 19.6 % [place] % (Auto) 9.7 % Eos % (Auto) 0.2 % Baso % (Auto) 0.4 % Neut # (Auto) 3.82 (1.40-6.50) K/uL Lymph # (Auto) 1.07 L (1.20-3.40) K/uL [place] # (Auto) 0.53 (0.11-0.59) K/uL Eos # (Auto) 0.01 (0.00-0.50) K/uL Baso # (Auto) 0.02 (0.00-0.20) K/uL Immature Gran # (Auto) 0.02 (0.01-0.20) K/uL Sodium (136-145) mmol/L Potassium (3.5-5.1) mmol/L Chloride (98-107) mmol/L Carbon Dioxide (21-32) mmol/L Anion Gap (3-11) BUN (6-23) mg/dl Creatinine (0.6-1.4) mg/dl Est Cr Clr Drug Dosing ml/min eGFR BUN/Creatinine Ratio (10-20) Glucose (70-99(Fasting)) mg/dl Calcium (8.6-10.3) mg/dl Magnesium (1.7-2.4) mg/dl Total Bilirubin (0.2-1.0) mg/dl AST (13-39) U/L ALT (7-52) U/L Alkaline Phosphatase (34-104) U/L C-Reactive Protein (0-0.5) mg/dl Total Protein (6.0-8.3) gm/dl Albumin (3.4-5.0) gm/dl Globulin (2.5-4.0) gm/dl Albumin/Globulin Ratio (0.9-2) Lipase (11-82) U/L Urine Color Urine Appearance (Clear) Urine pH (4.5-7.5) Ur Specific [place] (1.000-1.030) Urine Protein (Negative) Urine Glucose (UA) (Negative) Urine Ketones (Negative) Urine Blood (Negative) Urine Nitrite (Negative) Urine Bilirubin (Negative) Urine Urobilinogen (Negative) Ur Leukocyte Esterase (Negative) Urine WBC (Auto) (0-5) /hpf Urine RBC (Auto) (0-2) /hpf U Hyaline Cast (Auto) (0-2) /lpf U Epithel Cells (Auto) (0-2) /hpf Urine Bacteria (Auto) (None Seen) PG Care Time/CCT Total # of Minutes Spent Total Time Spent with Patient: Total time spent is greater than 50% in coordination of care (as documented) at patient's floor/unit and/or counseling patient: Coding Diagnoses Diffuse abdominal pain R10.84
--- NOTE | 2024-12-10 09:18 | Gastrointestinal Consultation ---
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 Edmonds, 5 cm abscess near the EJ anastomosis, hx of PEG placement in 2023 due to malnutrition, chronic anemia, history of trigeminal neuralgia and others below recently admitted w/ loose stools and abdominal pain. CTAP w/ mild wall thickening of the sigmoid colon again seen. This AM his pain is resolved - Check stool studies - Agree w/ Bentyl 10 mg three times daily as needed - Agree w/ short term increase of PPI therapy - Pantoprazole 40 mg twice daily x 1 month - Then return to Pantoprazole 40 mg once daily - Outpatient follow up with [facility] for consideration of outpatient colonoscopy I spent a total of 60 minutes on the date of service in review of patient's record, and previously obtained information in person and appropriate medical visit, discussion and education of plan, with patient and/or caregiver, placing orders for tests/referral/procedures as medically necessary and documentation of pertinent clinical information in patient's medical records for their visit today. Supervising Physician Co-Signing Physician Notes I saw and examined this patient with our nurse practitioner and agree with her assessment and plan. Clinically improved today. CT scan does not show evidence of diverticulitis unlikely has colitis. Etiology of pain is unclear however in light of the retching and pain need to consider intermittent self-limiting small bowel obstructions due to adhesions in light of his history. In addition with his Trevin-en-Y limb there is a possibility of an internal hernia that is developed. If symptoms recur would consider small bowel imaging with a CT enterography as an outpatient. 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 Edmonds, 5 cm abscess near the EJ anastomosis, hx of PEG placement in 2023 due to malnutrition, chronic anemia, history of trigeminal neuralgia and others below recently admitted w/ diverticulitis who is re-admitted w/ abdominal pain. Pt was seen evaluated, chart reviewed. Suggests he developed lower abd pain associated w/ diarrhea on Tuesday. Pain felt similar, but less severe, than his recent episodes of diverticulitis. Denies nausea/vomiting. Suggests this AM, pain is resolved. He had a semi-formed, nonbloody stool this AM. CTAP 2024: l: No bowel obstruction. Mild wall thickening of the sigmoid colon is again seen.. The appendix is unremarkable. Trevin-en-Y gastric bypass changes. Small sliding hiatal hernia. EGD 2023: An esophago-jejunal anastomosis was found. - Normal examined jejunum. - Feeding tube placement was successfully performed. - No specimens collected. - All instruments are visually inspected immediately before and after removal from the patient to ensure they are fully intact. Colonoscopy 2022: The examined portion of the ileum was normal. - One 7 mm polyp in the sigmoid colon, removed with a hot snare. Resected and retrieved. - Diverticulosis in the sigmoid colon. - Internal hemorrhoids. - The examination was otherwise normal on direct and retroflexion views. Allergies Allergy/AdvReac Type Severity Reaction Status Date / Time carbamazepine [From Tegretol] Allergy Mild Rash Verified 12/06/24 21:40 Home Medications Medication Instructions Recorded Confirmed Type escitalopram oxalate 10 mg tablet 10 mg PO QAM 12/22/23 12/09/24 History olanzapine 5 mg tablet (Zyprexa) 5 mg PO HS 12/22/23 12/09/24 History pantoprazole 40 mg tablet,delayed 40 mg PO QAM Heartburn 12/22/23 12/09/24 History release cholecalciferol (vitamin D3) 50 50 mcg PO DAILY 02/13/24 12/09/24 History mcg (2,000 unit) tablet (Vitamin D3) cyanocobalamin (vitamin B-12) 500 500 mcg PO DAILYBD 02/13/24 12/09/24 History mcg tablet (Vitamin B-12) aprepitant 80 mg capsule 80 mg PO DAILY PRN Nausea And 04/13/24 12/09/24 History Vomiting folic acid 1 mg tablet 1 mg PO QDL 04/13/24 12/09/24 History lorazepam 0.5 mg tablet 0.5 mg PO Q6H PRN Anxiety 04/13/24 12/09/24 History morphine concentrate 100 mg/5 mL 10 mg PO Q4H PRN Pain 04/13/24 12/09/24 History (20 mg/mL) oral solution prochlorperazine maleate 10 mg 10 mg PO Q6H PRN Nausea And 04/13/24 12/09/24 History tablet Vomiting ferrous sulfate 325 mg (65 mg 325 mg PO 3XWK 11/06/24 12/09/24 History iron) tablet ondansetron HCl 8 mg tablet 8 mg PO Q8H PRN Nausea And Vomiting 11/06/24 0 12/09/24 History Patient History Medical History Acute diverticulitis Intractable nausea and vomiting History of esophageal cancer Severe malnutrition Anemia Esophageal cancer diagnosed 04/2023--chemo/ERCP 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 Edmonds/[facility] History of recent blood transfusion 05/02/23 @ [facility] Enteropathogenic Escherichia coli infection Hyponatremia Trigeminal neuralgia Hypomagnesemia Vomiting and diarrhea Iron deficiency received blood transfusion 05/02/23 @ [facility] Surgical History History of colonoscopy History of esophagogastroduodenoscopy (EGD) History of tooth extraction partial upper and lower denture History of ERCP 04/[address] 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 Physical Exam Constitutional: WD/WN, vitals as above Respiratory: normal respiratory effort, lungs clear to auscultation Cardiovascular: RRR, no murmur, no edema Gastrointestinal (Abdomen): normal bowel sounds, soft, nontender, no hepatosplenomegaly Skin: no rashes, warm and dry Results & Data Vital Signs (Past 12 Hours) Vital Signs Temp Pulse Resp BP Pulse Ox O2 Del Method 12/10/24 07:17 97.7 F 54 L 17 109/70 98 Room Air Laboratory Results 12/10/24 12/09/24 12/09/24 Range/Units 08:39 15:25 13:35 WBC 4.64 L (4.8-10.8) K/ul RBC 3.97 L (4.70-6.10) M/uL Hgb 12.1 L (14.0-18.0) g/dl Hct 36.0 L (42.0-52.0) % MCV 90.7 (80.0-100.0) fL MCH 30.5 (25.0-34.0) pg MCHC 33.6 (32.0-36.0) g/dL RDW Std Deviation 47.5 H (36.4-46.3) fL RDW Coeff of Stone 14.2 (11.5-14.5) % Plt Count 154 (130-400) K/uL MPV 10.0 (9.4-12.4) fL Immature Gran % (Auto) 0.2 % Neut % (Auto) 53.6 % Lymph % (Auto) 35.3 % [place] % (Auto) 8.8 % Eos % (Auto) 1.5 % Baso % (Auto) 0.6 % Neut # (Auto) 2.48 (1.40-6.50) K/uL Lymph # (Auto) 1.64 (1.20-3.40) K/uL [place] # (Auto) 0.41 (0.11-0.59) K/uL Eos # (Auto) 0.07 (0.00-0.50) K/uL Baso # (Auto) 0.03 (0.00-0.20) K/uL Immature Gran # (Auto) 0.01 (0.01-0.20) K/uL Sodium Pending 140 (136-145) mmol/L Potassium Pending 3.7 (3.5-5.1) mmol/L Chloride Pending 106 (98-107) mmol/L Carbon Dioxide Pending 24 (21-32) mmol/L Anion Gap Pending 10 (3-11) BUN Pending 10 (6-23) mg/dl Creatinine Pending 0.67 (0.6-1.4) mg/dl Est Cr Clr Drug Dosing Pending 91.2 ml/min eGFR Pending 106.89 BUN/Creatinine Ratio Pending 14.9 (10-20) Glucose Pending 99 (70-99(Fasting)) mg/dl Calcium Pending 8.8 (8.6-10.3) mg/dl Magnesium 1.6 L (1.7-2.4) mg/dl Total Bilirubin 0.7 (0.2-1.0) mg/dl AST 21 (13-39) U/L ALT 15 (7-52) U/L Alkaline Phosphatase 58 (34-104) U/L C-Reactive Protein < 0.50 (0-0.5) mg/dl Total Protein 6.5 (6.0-8.3) gm/dl Albumin 4.1 (3.4-5.0) gm/dl Globulin 2.4 L (2.5-4.0) gm/dl Albumin/Globulin Ratio 1.7 (0.9-2) Lipase 40 (11-82) U/L Urine Color Yellow Urine Appearance Clear (Clear) Urine pH 7.5 (4.5-7.5) Ur Specific [place] > 1.045 H (1.000-1.030) Urine Protein Trace H (Negative) Urine Glucose (UA) Negative (Negative) Urine Ketones 2+ H (Negative) Urine Blood Negative (Negative) Urine Nitrite Negative (Negative) Urine Bilirubin Negative (Negative) Urine Urobilinogen Negative (Negative) Ur Leukocyte Esterase Negative (Negative) Urine WBC (Auto) 0-5 (0-5) /hpf Urine RBC (Auto) 0-2 (0-2) /hpf U Hyaline Cast (Auto) 0-2 (0-2) /lpf U Epithel Cells (Auto) 0-2 (0-2) /hpf Urine Bacteria (Auto) None Seen (None Seen) 12/09/24 Range/Units 13:24 WBC 5.47 (4.8-10.8) K/ul RBC 4.25 L (4.70-6.10) M/uL Hgb 13.0 L (14.0-18.0) g/dl Hct 37.4 L (42.0-52.0) % MCV 88.0 (80.0-100.0) fL MCH 30.6 (25.0-34.0) pg MCHC 34.8 (32.0-36.0) g/dL RDW Std Deviation 44.8 (36.4-46.3) fL RDW Coeff of Stone 14.0 (11.5-14.5) % Plt Count 171 (130-400) K/uL MPV 9.7 (9.4-12.4) fL Immature Gran % (Auto) 0.4 % Neut % (Auto) 69.7 % Lymph % (Auto) 19.6 % [place] % (Auto) 9.7 % Eos % (Auto) 0.2 % Baso % (Auto) 0.4 % Neut # (Auto) 3.82 (1.40-6.50) K/uL Lymph # (Auto) 1.07 L (1.20-3.40) K/uL [place] # (Auto) 0.53 (0.11-0.59) K/uL Eos # (Auto) 0.01 (0.00-0.50) K/uL Baso # (Auto) 0.02 (0.00-0.20) K/uL Immature Gran # (Auto) 0.02 (0.01-0.20) K/uL Sodium (136-145) mmol/L Potassium (3.5-5.1) mmol/L Chloride (98-107) mmol/L Carbon Dioxide (21-32) mmol/L Anion Gap (3-11) BUN (6-23) mg/dl Creatinine (0.6-1.4) mg/dl Est Cr Clr Drug Dosing ml/min eGFR BUN/Creatinine Ratio (10-20) Glucose (70-99(Fasting)) mg/dl Calcium (8.6-10.3) mg/dl Magnesium (1.7-2.4) mg/dl Total Bilirubin (0.2-1.0) mg/dl AST (13-39) U/L ALT (7-52) U/L Alkaline Phosphatase (34-104) U/L C-Reactive Protein (0-0.5) mg/dl Total Protein (6.0-8.3) gm/dl Albumin (3.4-5.0) gm/dl Globulin (2.5-4.0) gm/dl Albumin/Globulin Ratio (0.9-2) Lipase (11-82) U/L Urine Color Urine Appearance (Clear) Urine pH (4.5-7.5) Ur Specific [place] (1.000-1.030) Urine Protein (Negative) Urine Glucose (UA) (Negative) Urine Ketones (Negative) Urine Blood (Negative) Urine Nitrite (Negative) Urine Bilirubin (Negative) Urine Urobilinogen (Negative) Ur Leukocyte Esterase (Negative) Urine WBC (Auto) (0-5) /hpf Urine RBC (Auto) (0-2) /hpf U Hyaline Cast (Auto) (0-2) /lpf U Epithel Cells (Auto) (0-2) /hpf Urine Bacteria (Auto) (None Seen) PG Care Time/CCT Total # of Minutes Spent Total Time Spent with Patient: Total time spent is greater than 50% in coordination of care (as documented) at patient's floor/unit and/or counseling patient: Coding Level of Care Code 62289 IN/OBS CONSULT LVL 4,60M Diagnoses Abdominal pain R10.9
[2024-12-10 09:20] LABS: BUN Creatinine Ratio 9.6 (10-20); Calcium 8.4 mg/dl (8.6-10.3); Potassium 3.7 mmol/L (3.5-5.1)
[2024-12-10] MEDS: HYDROmorphone INJ 0.5 MG/0.5 ML SYR IV PRN (09:46)
[2024-12-10] MEDS: THIAMINE HCL 100 MG TAB PO SCH (09:48)
[2024-12-10 11:16] VITALS: RESP 16; TEMP 98.4
[2024-12-10] MEDS: SODIUM CHLORIDE 0.9% 1,000 ML IV SCH (11:27)
[2024-12-10] MEDS ORDERED: ONDANSETRON INJ 2 MG/ML 2 ML VIAL IV PRN (11:49)
[2024-12-10] MEDS: FOSAPREPITANT DIMEGLUMINE IV ONE (11:50)
[2024-12-10] MEDS: SODIUM CHLORIDE 0.9% IV ONE (11:50)
[2024-12-10] MEDS ORDERED: ondansetron HCL 8 MG in DEXTROSE 5% 50 ML IV PRN (11:51)
[2024-12-10] MEDS: PROMETHAZINE 12.5 MG/50.5 ML BAG IV STA (12:12)
[2024-12-10] MEDS: MAGNESIUM SULFATE / D5W 1 GM/100 ML BAG IV ONE (12:16)
[2024-12-10 14:32] VITALS: BP 114/71; PULSE 53
[2024-12-10] MEDS: HEPARIN 100 UNIT/ML 5ML FLUSH FLUSH PRN (16:23)
--- NOTE | 2024-12-10 16:31 | Discharge Summary ---
Date of Service December 10, 2024 Admission HPI Per Admitting Provider History obtained from interview with the patient and chart review. Medical history significant for severe malnutrition, esophageal/gastric cancer status post neoadjuvant chemotherapy/surgery, surgery consist of total gastrectomy and Trevin-en-Y esophageal jejunal anastomosis, chronic anemia, history of trigeminal neuralgia status post surgery, past tobacco abuse Recent hospitalization on 12/07 with abdominal pain; observe overnight and discharged. Patient was discharged couple of days ago from the hospital and was feeling much better. However, after he had the breakfast today morning he started to have generalized abdominal pain, nausea and vomiting which prompted him to come to the ED. He denies any blood in the vomitus. He denies change in his bowel habit. He denies fever, chills, chest pain, weakness/numbness of any body part. Admission Exam Per Admitting Provider On physical examination; Constitutional: WD/WN, vitals as above, NAD, sitting up in bed, pleasant, conversing easily Respiratory: normal respiratory effort, lungs clear to auscultation, no wheeze, rales, rhonchi. Normal insp/exp effort, no accessory muscle use Cardiovascular: RRR, no murmur, no edema Vessels: no JVD or carotid bruit Chest: normal inspection of chest Abdomen: Tenderness on deep palpation in left lower quadrant pain Musculoskeletal: no cyanosis or clubbing, extremities motor strength 5/5 Skin: no rashes, warm and dry normal turgor Neurologic: PERRL, EOMI, accommodation nl, no face palsy, no dysarthria CN's II- XI intact bilaterally and moves all extremities Psychiatric: A+Ox3, euthymic affect Principal Diagnosis Recurrent abdominal pain Discharge Exam Constitutional WD/WN, vitals as above + thin and comfortable Eyes PERRL, conjunctivae normal, anicteric sclerae ENMT external ear and nose normal, oropharynx normal Neck trachea midline, no thyromegaly Respiratory normal respiratory effort, lungs clear to auscultation Cardiovascular RRR, no murmur, no edema Vessels: normal peripheral pulses Extremities: normal capillary refill and + vascular access device Right chest [id number] intact and covered with dressing. Access site C/D/I Gastrointestinal (Abdomen) Inspection/Auscultation: normal bowel sounds and + scaphoid Percussion/Palpation: abdomen soft; abdomen nontender Musculoskeletal no cyanosis or clubbing, extremities motor strength 5/5 Skin no rashes, warm and dry Neurologic PERRL, EOMI, accommodation nl, no face palsy, no dysarthria Psychiatric Orientation: alert and oriented x 3 Eye Contact: good eye contact Affect: euthymic affect Lymphatic no cervical or axillary lymphadenopathy Discharge Data Allergies Allergy/AdvReac Type Severity Reaction Status Date / Time carbamazepine [From Tegretol] Allergy Mild Rash Verified 12/06/24 21:40 Consultations 12/09/24 15:58 ED Decision to Admit Stat 12/09/24 18:15 Consult Gastroenterology Routine Ordered Studies 12/09/24 13:26 CT abd pelvis IV con only Stat Hospital Course (1) Diffuse abdominal pain: (2) Pancreatitis: (3) Intractable nausea and vomiting: Plan 59 year old male w/ 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 Edmonds, 5 cm abscess near the EJ anastomosis, history of PEG placement in 2023 due to malnutrition, chronic anemia, history of trigeminal neuralgia and others below recently admitted w/ loose stools and abdominal pain. Patient presented to the hospital with recurrent episodes of abdominal pain, recently hospitalized a month ago for diverticulitis and completed antibiotic course. On admission, abdomen/pelvic CT showed mild wall thickening of sigmoid colon again, similar to CT abdomen pelvis done earlier in October 2024. The patient was placed on a full liquid diet, with nausea and vomiting persisting. Zofran and promethazine given with positive results. Intravenous fluids provided additional hydration benefits with positive fluid balances. Gastroenterology consulted this admission, as the patient is well known to this service. GI recommended increasing Protonix frequency to BID dosing for 1 month and weaning to daily regimen afterwards. Bentyl was was also recommended for the intractable nausea. Plan to follow-up outpatient with diagnostic colonoscopy to be scheduled in the near future. Total Time Total Time Spent Total Time Spent (In Minutes): Patient seen in collaboration with Dr. Eliu Gomez. Please see addendum. I spent a total of 30 minutes coordinating, documenting and providing care for this patient excluding time spent in the performance of separately billed services or time spent by another provider/QHP. Discharge Plan Discharge Items Patient Disposition: Home - Self-Care Reason For Visit: ABDOMINAL PAIN Discharge Diagnosis: Abdominal pain Condition on Discharge: Fair Activity: As commented below Activity Comment: Resume activity as tolerated Non-emergency contact: Primary Care Provider and Data Governance Analyst Call non-emergency contact if: you have any medication questions Follow-up/Referrals: Thaddeus Solis MD [Primary Care Provider] - (Date & Time 12/14/2024 9:00 AM Provider: Huan Morrison MD [facility], [facility] ) Diet: Regular Addtl Attending Provider Instructions: Charli Oro were admitted to the hospital for ongoing nausea and vomiting following multiple hospitalizations for diverticulitis. For this hospitalization, you received intravenour fluids for dehydration, given through your [id number], magnesium replacement, medications for nausea and vomiting, as well as pain medication. Gastroenterology consulted and recommended outpatient follow-up with colonoscopy. This will need to scheduled once you are home and established with outpatient follow-up. In the meantime, we recommend you maintain good fluids at home and manage your nausea using the below regimen. MEDICATION CHANGES: * Dicyclomine 100 mg by mouth three times daily * Pantoprazole 40 mg by mouth twice a daily x 1 month; then decrease frequency to once a day dosing. * Thiamine 100 mg by mouth daily SUMMARY OF TEST RESULTS: CT Abdomen/Pelvis: IMPRESSION: Mild wall thickening of the sigmoid colon again seen, with colitis not excluded. Mild free pelvic fluid and lower abdominal mesenteric edema seen, as on prior. EKG: Normal sinus rhythm PENDING TEST RESULTS: We were unable to obtain a stool culture prior to your discharge home. RECOMMENDATIONS FOR FOLLOW-UP: * Maintain good hydration. * Take all your medications as prescribed. * Follow-up with your PCP within 3-5 days of your discharge. * Contact Gastroenterology for follow-up and to schedule your colonoscopy. OTHER INSTRUCTIONS: Seek medical attention if you have: * temperature above 101 * chest pain or trouble breathing * abdominal pain, nausea, vomiting * diarrhea, dark stools or bloody stools * any unanswered questions or concerns Call 911 if symptoms are severe. Please take good care of yourself. It has been a pleasure taking care of you. Please take care of yourself. If you have any questions regarding your recent hospitalization please contact [facility] and [facility] @ [phone]. Pending Studies at Discharge: Yes Studies:: Stool culture needs collected Stand-Alone Forms: My [facility], Smoking Cessation Medications and DC Order Prescriptions: New pantoprazole 40 mg Tablet,Delayed Release (Dr/Ec) 40 mg PO BID Qty: 60 0RF dicyclomine 10 mg Capsule 10 mg PO TID Qty: 90 0RF thiamine HCl (vitamin B1) 100 mg Tablet 100 mg PO QAM Qty: 30 0RF Continued cyanocobalamin (vitamin B-12) [Vitamin B-12] 500 mcg Tablet 500 mcg PO DAILYBD cholecalciferol (vitamin D3) [Vitamin D3] 50 mcg (2,000 unit) Tablet 50 mcg PO DAILY olanzapine [Zyprexa] 5 mg tablet 5 mg PO HS escitalopram oxalate 10 mg tablet 10 mg PO QAM morphine concentrate 100 mg/5 mL (20 mg/mL) solution 10 mg PO Q4H PRN (Reason: Pain) Hold Instructions: Resume on 12/11/24. Rx Instructions: 0.5 ML q4h prn prochlorperazine maleate 10 mg tablet 10 mg PO Q6H PRN (Reason: Nausea And Vomiting) lorazepam 0.5 mg tablet 0.5 mg PO Q6H PRN (Reason: Anxiety) folic acid 1 mg tablet 1 mg PO QDL aprepitant 80 mg capsule 80 mg PO DAILY PRN (Reason: Nausea And Vomiting) ondansetron HCl 8 mg tablet 8 mg PO Q8H PRN (Reason: Nausea And Vomiting) ferrous sulfate 325 mg (65 mg iron) Tablet 325 mg PO 3XWK Hold Instructions: Resume on 12/14/24. Rx Instructions: Tue/Tue/Tue Discontinued pantoprazole 40 mg tablet,delayed release (DR/EC) 40 mg PO QAM Discharge Orders: Discharge Order (Routine); Ordered 12/10/24 Ordered By: Dian Wong Admission Data Admit Date/Time: 12/09/24 16:21 Attending Provider: Eliu Gomez Admit Provider: Beni Leon Primary Care Provider: Thaddeus Solis Other Providers: Beni Leon; Iggy Acuna Jr Supervising Physician Co-Signing Physician Notes Patient seen and examined at bedside. Patient states that he got nauseus "all the sudden" and came to the hospital. Feeling better and wants to go home. On exam, appears malnourished, evidence of cachexia on exam, trace abdominal epigastric tenderness. GI consulted, recommended outpatient colonoscopy. Patient discharged with symptom management medications. I have seen and discussed the case with the collaborating advanced practitioner. I agree with the above H&P. I have reviewed and confirmed the patients medical history, the findings on physical examination, and the patients diagnosis and treatment plan with Dian TONY and agree with the information documented. I spent a total of 20 minutes coordinating, documenting, and providing care for this patient excluding time spent in the performance of separately billed services. All of the aforementioned completed outside of collaborating with the assigned advanced practitioner for a full treatment plan. I have reviewed the advanced practitioner's documentation, and I agree with, and take responsibility for the plan of care
[2024-12-10] MEDS: CYANOCOBALAMIN (B-12) 500 MCG TABLET PO SCH (16:36)
--- NOTE | 2024-12-12 22:42 | Electrocardiogram Report ---
Test Reason : Blood Pressure : */* mmHG Vent. Rate : 49 BPM Atrial Rate : 49 BPM P-R Int : 124 ms QRS Dur : 78 ms QT Int : 466 ms P-R-T Axes : 25 74 72 degrees QTcB Int : 420 ms Sinus bradycardia Otherwise normal ECG When compared with ECG of 06-Dec-2024 18:01, No significant change was found Confirmed by Noé Mathis ([id number]) on 12/12/2024 10:41:48 PM Referred By: REFERRED SELF Confirmed By: Noé Mathis
--- NOTE | 2024-12-12 22:43 | Electrocardiogram Report ---
Test Reason : Blood Pressure : */* mmHG Vent. Rate : 71 BPM Atrial Rate : 71 BPM P-R Int : 126 ms QRS Dur : 82 ms QT Int : 456 ms P-R-T Axes : 53 71 69 degrees QTcB Int : 496 ms Normal sinus rhythm Prolonged QT When compared with ECG of 09-Dec-2024 13:44, QT has lengthened Confirmed by Noé Mathis ([id number]) on 12/12/2024 10:42:52 PM Referred By: REFERRED SELF Confirmed By: Noé Mathis
== END 2024-12-10 17:06 | disposition home or self-care (01) | DRG 391 ==
LOC: ED 13:10 → 3W 16:21 → SUATTDRO 16:21 → INTOOBSV 16:21 → 3W 17:55
DX: E83.42 Hypomagnesemia; K85.90 Acute pancreatitis without necrosis or infection, unspecified; R93.5 Abnormal findings on diagnostic imaging of other abdominal regions, including retroperitoneum; Z79.899 Other long term (current) drug therapy; Z88.8 Allergy status to other drugs, medicaments and biological substances; R10.84 Generalized abdominal pain; R11.2 Nausea with vomiting, unspecified

== ENCOUNTER 2025-01-30 16:48 | Observation (INO) ==
[2025-01-30] MEDS: SODIUM CHLORIDE 0.9% 1,000 ML IV STA (17:19)
[2025-01-30] MEDS: MoRPHine SULFATE 4 MG/ML 1 ML CARP\\VIAL IV STA (17:19)
[2025-01-30] MEDS: ONDANSETRON INJ 2 MG/ML 2 ML VIAL IV STA (17:19)
--- NOTE | 2025-01-30 17:27 | Emergency Department Note ---
ED Provider Note History of Present Illness Chief Complaint: Abdominal Pain Stated Complaint: ABD PN, THROWING, THROWING UP, SAME ALWAYS Time Seen by Provider: 01/30/25 16:57 Source: patient Mode of arrival: ambulatory Limitations: no limitations Patient is a 59-year-old male who presents to the emergency department with complaints of severe lower abdominal pain, vomiting and nausea. Patient states that he has a history of gastroesophageal cancer and has had a gastrectomy and since then has had complications and issues with intractable nausea and vomiting. Patient notes that this episode started this morning and he is unable to keep anything down and is having severe abdominal pain, generally across his lower abdomen. Patient is not actively getting any chemotherapy or cancer treatment. Home Medications Medication Instructions Recorded Confirmed Type escitalopram oxalate 10 mg tablet 10 mg PO QAM 12/22/23 01/30/25 History olanzapine 5 mg tablet (Zyprexa) 5 mg PO HS 12/22/23 01/30/25 History cholecalciferol (vitamin D3) 50 50 mcg PO DAILY 02/13/24 01/30/25 History mcg (2,000 unit) tablet (Vitamin D3) cyanocobalamin (vitamin B-12) 500 500 mcg PO DAILYBD 02/13/24 01/30/25 History mcg tablet (Vitamin B-12) aprepitant 80 mg capsule 80 mg PO DAILY PRN Nausea And 04/13/24 01/30/25 History Vomiting folic acid 1 mg tablet 1 mg PO QDL 04/13/24 01/30/25 History lorazepam 0.5 mg tablet 0.5 mg PO Q6H PRN Anxiety 04/13/24 01/30/25 History morphine concentrate 100 mg/5 mL 10 mg PO Q4H PRN Pain 04/13/24 01/30/25 History (20 mg/mL) oral solution prochlorperazine maleate 10 mg 10 mg PO Q6H PRN Nausea And 04/13/24 01/30/25 History tablet Vomiting ferrous sulfate 325 mg (65 mg 325 mg PO [id number] 11/06/24 01/30/25 History iron) tablet ondansetron HCl 8 mg tablet 8 mg PO Q8H PRN Nausea And Vomiting 11/06/24 01/30/25 History dicyclomine 10 mg capsule 10 mg PO QID PRN abd pain 01/18/25 01/30/25 History magnesium 250 mg tablet 250 mg PO [id number] 01/18/25 01/30/25 History pantoprazole 40 mg tablet,delayed 40 mg PO QAM 01/18/25 01/30/25 History release Allergies Allergy/AdvReac Type Severity Reaction Status Date / Time carbamazepine [From Tegretol] Allergy Mild Rash Verified 01/18/25 16:03 Past Med/Surg History Problem List (Updated 01/30/25 @ 22:46 by CHAVO Hancock) Diverticulitis (Acute) Abnormal abdominal CT scan (Acute) Hypomagnesemia (Acute) Vomiting (Acute) Diffuse abdominal pain (Acute) Abdominal pain (Acute) Pancreatitis (Acute) Intractable nausea and vomiting (Acute) Medical History Acute diverticulitis Intractable nausea and vomiting History of esophageal cancer Severe malnutrition Anemia Esophageal cancer diagnosed 04/2023--chemo/ERCP 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 Edmonds/[facility] [place] Eduardo History of recent blood transfusion 05/02/23 @ [facility] Enteropathogenic Escherichia coli infection Hyponatremia Trigeminal neuralgia Hypomagnesemia Vomiting and diarrhea Iron deficiency received blood transfusion 05/02/23 @ [facility] Surgical History History of colonoscopy History of esophagogastroduodenoscopy (EGD) History of tooth extraction partial upper and lower denture History of ERCP 04/2023 @ [facility] [place] Eduardo History of vascular access device A port--power port in placed on right side of chest Family History Father Stroke Social History Smoking Status: Never smoker Tobacco Type: Cigarettes Second Hand Exposure: No; Do You Dip or Chew Tobacco: No; Hx Alcohol Use: Yes Alcohol type: beer Hx Substance Use: No Preferred Language: Upper Sorbian Communication Ability: Effective Chief Legal Officer Required: No Beliefs That Will Affect Care: None marital status: Current Living Situation: Spouse Feels Safe at Home: Yes Assistive Devices: Glasses Physical Exam Vital Signs Vital Signs - 24 hr 01/30/25 16:50 01/30/25 17:20 01/30/25 17:30 Temperature 36.6 C Temperature Source Temporal Artery Scan Pulse Rate 82 63 Pulse Rate [Apical] 67 Pulse Rate from SpO2 Sensor Respiratory Rate 19 20 Respiratory Effort / Characteristics Non-Labored Spontaneous Non-Labored Respiratory Depth Normal Normal Respiratory Pattern Blood Pressure 164/97 H Blood Pressure [Right Arm] 179/114 H Blood Pressure Mean 119 Blood Pressure Mean [Right Arm] 135 Blood Pressure Position Sitting Blood Pressure Position [Right Arm] Pulse Oximetry 98 98 Oxygen Delivery Method Room Air Room Air Sepsis Recent Fever Within 48 Hours No Sepsis New/Unexplained Change in Mental Status No Sepsis Action Taken by Nursing No Action Required 01/30/25 17:33 01/30/25 17:48 01/30/25 17:51 Temperature Temperature Source Pulse Rate 67 72 72 Pulse Rate [Apical] Pulse Rate from SpO2 Sensor 66 71 73 Respiratory Rate 15 12 16 Respiratory Effort / Characteristics Respiratory Depth Respiratory Pattern Blood Pressure Blood Pressure [Right Arm] Blood Pressure Mean Blood Pressure Mean [Right Arm] Blood Pressure Position Blood Pressure Position [Right Arm] Pulse Oximetry 99 96 98 Oxygen Delivery Method Sepsis Recent Fever Within 48 Hours Sepsis New/Unexplained Change in Mental Status Sepsis Action Taken by Nursing 01/30/25 18:03 01/30/25 18:27 01/30/25 18:30 Temperature Temperature Source Pulse Rate 72 69 Pulse Rate [Apical] Pulse Rate from SpO2 Sensor 73 73 69 Respiratory Rate 13 16 Respiratory Effort / Characteristics Respiratory Depth Respiratory Pattern Blood Pressure Blood Pressure [Right Arm] Blood Pressure Mean Blood Pressure Mean [Right Arm] Blood Pressure Position Blood Pressure Position [Right Arm] Pulse Oximetry 97 97 97 Oxygen Delivery Method Sepsis Recent Fever Within 48 Hours Sepsis New/Unexplained Change in Mental Status Sepsis Action Taken by Nursing 01/30/25 18:45 01/30/25 18:51 01/30/25 19:03 Temperature Temperature Source Pulse Rate 69 70 Pulse Rate [Apical] Pulse Rate from SpO2 Sensor 69 71 Respiratory Rate 15 16 Respiratory Effort / Characteristics Respiratory Depth Respiratory Pattern Blood Pressure 171/104 H Blood Pressure [Right Arm] Blood Pressure Mean 134 Blood Pressure Mean [Right Arm] Blood Pressure Position Blood Pressure Position [Right Arm] Pulse Oximetry 97 97 Oxygen Delivery Method Sepsis Recent Fever Within 48 Hours Sepsis New/Unexplained Change in Mental Status Sepsis Action Taken by Nursing 01/30/25 19:03 01/30/25 19:03 01/30/25 19:09 Temperature Temperature Source Pulse Rate 63 63 Pulse Rate [Apical] Pulse Rate from SpO2 Sensor 63 63 Respiratory Rate 13 13 Respiratory Effort / Characteristics Respiratory Depth Respiratory Pattern Blood Pressure 171/104 H Blood Pressure [Right Arm] Blood Pressure Mean 134 Blood Pressure Mean [Right Arm] Blood Pressure Position Blood Pressure Position [Right Arm] Pulse Oximetry 95 96 Oxygen Delivery Method Sepsis Recent Fever Within 48 Hours Sepsis New/Unexplained Change in Mental Status Sepsis Action Taken by Nursing 01/30/25 19:17 01/30/25 19:17 01/30/25 19:18 Temperature Temperature Source Pulse Rate 62 Pulse Rate [Apical] 62 Pulse Rate from SpO2 Sensor 61 Respiratory Rate 16 13 Respiratory Effort / Characteristics Non-Labored Spontaneous Respiratory Depth Normal Respiratory Pattern Agonal Blood Pressure 161/101 H Blood Pressure [Right Arm] 161/101 H Blood Pressure Mean 134 Blood Pressure Mean [Right Arm] 121 Blood Pressure Position Blood Pressure Position [Right Arm] Pulse Oximetry 96 96 Oxygen Delivery Method Room Air Sepsis Recent Fever Within 48 Hours Sepsis New/Unexplained Change in Mental Status Sepsis Action Taken by Nursing 01/30/25 21:00 Temperature Temperature Source Pulse Rate Pulse Rate [Apical] 51 L Pulse Rate from SpO2 Sensor Respiratory Rate 12 Respiratory Effort / Characteristics Non-Labored Spontaneous Respiratory Depth Normal Respiratory Pattern Regular Blood Pressure Blood Pressure [Right Arm] 107/70 Blood Pressure Mean Blood Pressure Mean [Right Arm] 82 Blood Pressure Position Blood Pressure Position [Right Arm] Semi-fowlers Pulse Oximetry 97 Oxygen Delivery Method Room Air Sepsis Recent Fever Within 48 Hours Sepsis New/Unexplained Change in Mental Status Sepsis Action Taken by Nursing VITAL SIGNS - Vital signs and nursing notes were reviewed. GENERAL -59-year-old male appearing his stated age who is in no acute distress. Communicates well with provider and answers questions appropriately. Patient's is at bedside. HEAD - NC/AT. EYES - PERRL with EOMI bilaterally. Conjunctiva pink and moist with no injection noted. LUNGS - Chest wall symmetric without accessory muscle use, intercostals retractions, or central cyanosis. Breath sounds clear throughout all forrester. No wheezes, rales, or rhonchi appreciated. CARDIAC - RRR with S1/S2. No murmur, rubs, or gallops appreciated. ABDOMEN - Abdominal contour without pulsations or visible masses. Negative Glynn's or Lacy Chambers's Signs. BS normoactive all four quadrants. Increased tenderness to palpation appreciated in the lower abdomen. No guarding. No rebound Tenderness. No palpable masses, hepatosplenomegaly, or ascites noted. NEUROLOGIC - Sensory intact to light touch throughout. PSYCH - A&Ox3 and cooperates fully with examiner. Pt is very pleasant and interacts well with examiner. Course Administered Medications Discontinued Medications Aprepitant (Aprepitant 40 Mg Cap) 40 mg PO NOW STA Stop: 01/30/25 19:29 Last Admin: 01/30/25 19:49 Dose: Not Given Documented By: CAMERON Dicyclomine HCl (Dicyclomine Hcl 10 Mg/Ml 2 Ml Amp/Vial) 20 mg IM NOW ONE Stop: 01/30/25 18:46 Last Admin: 01/30/25 18:59 Dose: 20 mg Documented By: CAMERON Hydromorphone HCl (Hydromorphone Inj 0.5 Mg/0.5 Ml Syr) 0.5 mg IV NOW STA Stop: 01/30/25 19:29 Last Admin: 01/30/25 19:40 Dose: 0.5 mg Documented By: CAMERON Sodium Chloride (Nss) 1,000 mls @ 999 mls/hr IV .Q1H1M STA Stop: 01/30/25 18:03 Last Infusion: 01/30/25 19:48 Dose: Infused Documented By: Admin: 01/30/25 17:19 Dose: 999 mls/hr Documented By: CARMENZA Fosaprepitant 150 mg/ Sodium (Chloride) 145 mls @ 300 mls/hr IV ONE ONE Stop: 01/30/25 20:12 Last Infusion: 01/30/25 20:46 Dose: Infused Documented By: Admin: 01/30/25 20:18 Dose: 300 mls/hr Documented By: NORMAN Ampicillin Sodium/Sulbactam Sodium (Unasyn) 3,000 mg in 100 mls @ 200 mls/hr IV NOW STA Stop: 01/30/25 20:23 Last Infusion: 01/30/25 21:11 Dose: Infused Documented By: Admin: 01/30/25 20:02 Dose: 200 mls/hr Documented By: CAMERON Ioversol (Optiray 320 100ml) 90 ml IV ONCE ONE Stop: 01/30/25 18:22 Last Admin: 01/30/25 18:21 Dose: 90 ml Documented By: ZAINA Morphine Sulfate (Morphine Sulfate 4 Mg/Ml 1 Ml Carp\Vial) 4 mg IV NOW STA Stop: 01/30/25 17:04 Last Admin: 01/30/25 17:19 Dose: 4 mg Documented By: CARMENZA Ondansetron HCl (Ondansetron Inj 2 Mg/Ml 2 Ml Vial) 4 mg IV NOW STA Stop: 01/30/25 17:04 Last Admin: 01/30/25 17:19 Dose: 4 mg Documented By: CARMENZA Medical Decision Making Differential Diagnosis Differential diagnoses includes gastritis, gastroenteritis, IBS, small bowel obstruction, pancreatitis, peritonitis, constipation, diverticulitis, abdominal abcess, among others. Medical Records Attestation: I reviewed the patient's medical records. Home Medications was personally reviewed by me Laboratory Data Attestation: I reviewed the patient's lab results. 01/30/25 17:10 01/30/25 17:10 Lab Results 01/30/25 Range/Units 17:10 WBC 5.27 (4.8-10.8) K/ul RBC 3.64 L (4.70-6.10) M/uL Hgb 11.0 L (14.0-18.0) g/dl Hct 31.9 L (42.0-52.0) % MCV 87.6 (80.0-100.0) fL MCH 30.2 (25.0-34.0) pg MCHC 34.5 (32.0-36.0) g/dL RDW Std Deviation 45.8 (36.4-46.3) fL RDW Coeff of Stone 14.3 (11.5-14.5) % Plt Count 246 (130-400) K/uL MPV 10.1 (9.4-12.4) fL Immature Gran % (Auto) 0.4 % Neut % (Auto) 75.5 % Lymph % (Auto) 15.0 % [place] % (Auto) 8.7 % Eos % (Auto) 0.0 % Baso % (Auto) 0.4 % Neut # (Auto) 3.98 (1.40-6.50) K/uL Lymph # (Auto) 0.79 L (1.20-3.40) K/uL [place] # (Auto) 0.46 (0.11-0.59) K/uL Eos # (Auto) 0.00 (0.00-0.50) K/uL Baso # (Auto) 0.02 (0.00-0.20) K/uL Immature Gran # (Auto) 0.02 (0.01-0.20) K/uL Sodium 135 L (136-145) mmol/L Potassium 3.7 (3.5-5.1) mmol/L Chloride 103 (98-107) mmol/L Carbon Dioxide 22 (21-32) mmol/L Anion Gap 10 (3-11) BUN 7 (6-23) mg/dl Creatinine 0.58 L (0.6-1.4) mg/dl Est Cr Clr Drug Dosing 113.2 ml/min eGFR 111.65 BUN/Creatinine Ratio 12.1 (10-20) Glucose 112 H (70-99(Fasting)) mg/dl Calcium 8.6 (8.6-10.3) mg/dl Total Bilirubin 0.5 (0.2-1.0) mg/dl AST 29 (13-39) U/L ALT 30 (7-52) U/L Alkaline Phosphatase 109 H (34-104) U/L Total Protein 6.3 (6.0-8.3) gm/dl Albumin 3.7 (3.4-5.0) gm/dl Globulin 2.6 (2.5-4.0) gm/dl Albumin/Globulin Ratio 1.4 (0.9-2) Lipase 19 (11-82) U/L Imaging Data Radiologist's Impression: Abdomen/Pelvis CT 01/30/25 17:03 EXAM: CT abd pelvis IV con only CLINICAL HISTORY: Severe abd pain, hx diverticulitis. TECHNIQUE: Contrast-enhanced CT of the abdomen and pelvis was performed, with the following protocol: axial images with, and reconstructed coronal and sagittal images. 90 ml optiray 320 Intravenous contrast was administered. One of the following dose reduction techniques was utilized for this exam: Automated exposure control, adjustment of the mA and/or kV according to patient size, and use of iterative reconstruction. COMPARISON: 01/18/2025 FINDINGS: Abdomen: Liver: The liver is of normal size, attenuation, and contour with no sign of cirrhosis or significant fatty infiltration. There is a 5 mm cyst in the left hepatic lobe. No liver mass lesion is seen. The portal vein is patent. Gallbladder and Biliary System: The gallbladder is normal in size and shape. No wall thickening, pericholecystic fluid, or gallstones were identified. The common bile duct is normal in caliber without dilation. Pancreas: The pancreatic duct is mildly prominent within the pancreatic head, measuring up to 3 mm. There is no definite sign of acute pancreatitis. No definite pancreatic mass lesion is seen Spleen: Normal in size, shape, and density. No splenic lesions or masses were identified. Appendix: The appendix is normal in size without abbi appendiceal fat stranding, and without an appendicolith. No evidence of appendiceal abscess or perforation. Kidneys and Adrenal Glands: Both kidneys are normal in size, shape, and position. Cortical thickness is within normal limits. No renal calculi or hydronephrosis. Adrenal glands are unremarkable with no evidence of masses or hyperplasia. Pelvis: Urinary Bladder: Normal in contour and wall thickness. No intraluminal lesions identified. Prostate: Normal in size and contour. No focal lesions or masses identified. No abnormalities noted. Rectum and Sigmoid Colon: Normal wall thickness and no evidence of mass. Peritoneal and Retroperitoneal Structures: No enlarged lymphadenopathy was noted. Bowel: The visualized bowel loops are normal in caliber and appearance. No evidence of bowel obstruction or wall thickening. There is a small hiatal hernia. There has been an apparent partial gastrectomy with gastrojejunostomy. There is no sign of small bowel obstruction. There is diverticulosis with possible mild diverticulitis of the descending colon. No free intraperitoneal air is identified. There is a small amount of free pelvic fluid Bones and Soft Tissues: Pelvic bones and soft tissues are unremarkable. No fractures or abnormal masses were identified. Lumbar degenerative disc disease IMPRESSION: 1. Mild acute diverticulitis. There is no perforation or abscess formation. 2. Small amount of pelvic ascites (stable). 3. Small hepatic cyst (stable). 4. Small hiatal hernia (stable). 5. Mild prostatomegaly (stable). 6. No other interval changes. Electronically signed by Francisco Javier Garcia 01-30-2025 7:46 PM Chest X-Ray 01/30/25 17:03 Technique: 2 frontal views of the chest were obtained Comparison is made to the prior examination dated 01/18/2025 Findings: There are no confluent pulmonary infiltrates. The heart size is within normal limits. No pleural effusion or pneumothorax is seen. There is no definite pulmonary nodule. There is an unchanged old healed right rib fracture. There is a right chest wall port with its tip in the SVC Impression: No active disease Electronically signed by Blake Huynh 01-30-2025 6:57 PM MDM Narrative Patient is a 59-year-old male who presents to the emergency department with complaints of severe lower abdominal pain, vomiting and nausea. Patient states that he has a history of gastroesophageal cancer and has had a gastrectomy and since then has had complications and issues with intractable nausea and vomiting. Patient notes that this episode started this morning and he is unable to keep anything down and is having severe abdominal pain, generally across his lower abdomen. Patient is not actively getting any chemotherapy or cancer treatment. Patient was evaluated by myself and findings were noted in the physical exam above. Patient was ordered IV placement, lab work, urinalysis, and a CT of the abdomen pelvis. Patient was also ordered a dose of saline, Zofran and morphine for symptom control. Patient had a white blood cell count of 5.27. Patient was mildly anemic with a hemoglobin of 11.0 and hematocrit of 31.9. Patient did not have any significant electrolyte imbalance noted. Patient was not able to provide a urinalysis while he was here in the emergency department. Upon reevaluation the patient notes that he was still having a significant amount of pain even after the administration of Zofran. Patient notes that his nausea was relatively controlled at this time. Patient was given a dose of IM Bentyl. After subsequent reevaluation of the patient he notes that the IM Bentyl is not helping his abdominal pain, cramping or the lingering nausea. Patient was ordered a dose of 0.5 mg of Dilaudid as well as IV Emend for his pain and nausea. Patient had a CT of the abdomen and pelvis that was completed and interpreted by radiology to show a mild acute diverticulitis with no perforation or abscess formation noted. The patient also had a noted stable small amount of pelvic ascites, small hepatic cyst, small hiatal hernia, and mild prostatomegaly which are all stable and had been noted on previous CTs. The patient also had a chest x-ray that was completed and interpreted by radiology to show an unhealed right rib fracture however there was no active disease or acute findings noted. I discussed all these findings with the patient who verbalized understanding. The patient reports at this time that his pain is tolerable and his nausea has subsided with the administration of the Emend and the Dilaudid. I discussed with the patient that his CT did show a mild acute diverticulitis which was the cause of his most recent hospitalization. I discussed with the patient the options of outpatient treatment of the diverticulitis versus hospitalization and advised the patient that I would suggest hospitalization as the intractable nausea and vomiting that he experiences could hinder his ability to take oral medications. The patient verbalized understanding and agreed that hospitalization for IV antibiotics would be more reasonable for him, especially with his significant history. I reached out and spoke with the [facility] about admission of this patient. I gave them a full report of the patient's chief complaint, current status, and the results of the imaging and lab work. They agreed to accept the patient under Dr. Black's service. Please refer to the [facility]'s documentation for further evaluation and management of this patient. Impression Intractable nausea and vomiting, Diverticulitis Discharge Plan Visit Data Chief Complaint: Abdominal Pain Stated Complaint: ABD PN, THROWING, THROWING UP, SAME ALWAYS ED Provider: Thaddeus Moore ED Midlevel Provider: Karen Nowak Discharge Problem: Intractable nausea and vomiting, Diverticulitis Patient Disposition: Admitted As Inpatient Condition: Fair Discharge Instructions Interventions: ED Discharge Assessment Last Done: 01/30/25 22:01 ED DC CONDITION Conditon at Discharge Condition at Discharge: Fair
[2025-01-30 17:28] LABS: Basophils # (auto) 0.02 K/uL (0.00-0.20); Basophils % (auto) 0.4 %; Hematocrit (blood only) 31.9 % (42.0-52.0); Immature Granulocytes # (auto) 0.02 K/uL (0.01-0.20); Immature Granulocytes % (auto) 0.4 %; Lymphocytes # (auto) 0.79 K/uL (1.20-3.40); Mean Corpuscular Hemoglobin 30.2 pg (25.0-34.0); Mean Corpuscular Hgb Conc 34.5 g/dL (32.0-36.0); Mean Corpuscular Volume 87.6 fL (80.0-100.0); Mean Platelet Volume 10.1 fL (9.4-12.4); Monocytes # (auto) 0.46 K/uL (0.11-0.59); Monocytes % (auto) 8.7 %; Neutrophils # (auto) 3.98 K/uL (1.40-6.50); Neutrophils % (auto) 75.5 %; Platelet Count 246 K/uL (130-400); RDW Coefficient of Variation 14.3 % (11.5-14.5); RDW Standard Deviation 45.8 fL (36.4-46.3); Red Blood Count 3.64 M/uL (4.70-6.10); White Blood Count 5.27 K/ul (4.8-10.8)
[2025-01-30 17:45] LABS: Albumin Globulin Ratio 1.4 (0.9-2); BUN Creatinine Ratio 12.1 (10-20); Bilirubin,Total 0.5 mg/dl (0.2-1.0); Calcium 8.6 mg/dl (8.6-10.3); Creatinine Clr Calc Pharmacy 113.2 ml/min; Globulin 2.6 gm/dl (2.5-4.0); Potassium 3.7 mmol/L (3.5-5.1); Total Protein 6.3 gm/dl (6.0-8.3)
[2025-01-30] MEDS: OPTIRAY 320 100ml IV ONE (18:21)
--- NOTE | 2025-01-30 18:57 | XRay Report ---
Technique: 2 frontal views of the chest were obtained Comparison is made to the prior examination dated 01/18/2025 Findings: There are no confluent pulmonary infiltrates. The heart size is within normal limits. No pleural effusion or pneumothorax is seen. There is no definite pulmonary nodule. There is an unchanged old healed right rib fracture. There is a right chest wall port with its tip in the SVC Impression: No active disease Electronically signed by Blake Huynh 01-30-2025 6:57 PM
[2025-01-30] MEDS: DICYCLOMINE HCL 10 MG/ML 2 ML AMP/VIAL IM ONE (18:59)
[2025-01-30] MEDS: HYDROmorphone INJ 0.5 MG/0.5 ML SYR IV STA (19:40)
--- NOTE | 2025-01-30 19:47 | CT Scan Report ---
EXAM: CT abd pelvis IV con only CLINICAL HISTORY: Severe abd pain, hx diverticulitis. TECHNIQUE: Contrast-enhanced CT of the abdomen and pelvis was performed, with the following protocol: axial images with, and reconstructed coronal and sagittal images. 90 ml optiray 320 Intravenous contrast was administered. One of the following dose reduction techniques was utilized for this exam: Automated exposure control, adjustment of the mA and/or kV according to patient size, and use of iterative reconstruction. COMPARISON: 01/18/2025 FINDINGS: Abdomen: Liver: The liver is of normal size, attenuation, and contour with no sign of cirrhosis or significant fatty infiltration. There is a 5 mm cyst in the left hepatic lobe. No liver mass lesion is seen. The portal vein is patent. Gallbladder and Biliary System: The gallbladder is normal in size and shape. No wall thickening, pericholecystic fluid, or gallstones were identified. The common bile duct is normal in caliber without dilation. Pancreas: The pancreatic duct is mildly prominent within the pancreatic head, measuring up to 3 mm. There is no definite sign of acute pancreatitis. No definite pancreatic mass lesion is seen Spleen: Normal in size, shape, and density. No splenic lesions or masses were identified. Appendix: The appendix is normal in size without abbi appendiceal fat stranding, and without an appendicolith. No evidence of appendiceal abscess or perforation. Kidneys and Adrenal Glands: Both kidneys are normal in size, shape, and position. Cortical thickness is within normal limits. No renal calculi or hydronephrosis. Adrenal glands are unremarkable with no evidence of masses or hyperplasia. Pelvis: Urinary Bladder: Normal in contour and wall thickness. No intraluminal lesions identified. Prostate: Normal in size and contour. No focal lesions or masses identified. No abnormalities noted. Rectum and Sigmoid Colon: Normal wall thickness and no evidence of mass. Peritoneal and Retroperitoneal Structures: No enlarged lymphadenopathy was noted. Bowel: The visualized bowel loops are normal in caliber and appearance. No evidence of bowel obstruction or wall thickening. There is a small hiatal hernia. There has been an apparent partial gastrectomy with gastrojejunostomy. There is no sign of small bowel obstruction. There is diverticulosis with possible mild diverticulitis of the descending colon. No free intraperitoneal air is identified. There is a small amount of free pelvic fluid Bones and Soft Tissues: Pelvic bones and soft tissues are unremarkable. No fractures or abnormal masses were identified. Lumbar degenerative disc disease IMPRESSION: 1. Mild acute diverticulitis. There is no perforation or abscess formation. 2. Small amount of pelvic ascites (stable). 3. Small hepatic cyst (stable). 4. Small hiatal hernia (stable). 5. Mild prostatomegaly (stable). 6. No other interval changes. Electronically signed by Francisco Javier Garcia 01-30-2025 7:46 PM
[2025-01-30] MEDS: APREPITANT 40 MG CAP PO STA (19:49)
[2025-01-30] MEDS: AMPICILLIN/SULBACTAM SOD 3,000 MG/100 ML BAG IV STA (20:02)
[2025-01-30] MEDS: FOSAPREPITANT DIMEGLUMINE 150 MG in SODIUM CHLORIDE 0.9% 145 ML IV ONE (20:18)
--- NOTE | 2025-01-30 20:42 | History & Physical Report ---
Date of Service January 30, 2025 Assessment & Plan (1) Diverticulitis: Plan: Continue IV Zosyn for now Clear liquids Advance diet as tolerated Continue IV fluids (2) Abdominal pain: Plan: Patient is improved after IV Dilaudid Analgesics as needed (3) Intractable nausea and vomiting: Plan: Will give a combination of Zofran and a aprepitant/amend Plan Patient is a full code Lovenox for VTE prophylaxis Total of 75 minutes spent in care management for this patient History of Present Illness Chief Complaint: Abdominal pain Primary Care Provider: Thaddeus Solis MD Edward Christopher (Allan)user is a 59-year-old male with a PMH significant for severe malnutrition, esophageal/gastric cancer status post neoadjuvant chemot herapy/surgery, surgery consist of total gastrectomy and Yeison-en-Y esophageal jejunal anastomosis, chronic anemia, history of trigeminal neuralgia status post surgery and multiple recurrent admissions for intractable nausea and vomiting along with diverticulitis. Abdon presents to the emergency department with complaints of severe lower abdominal pain, vomiting and nausea. He states that the abdominal pain, nausea and vomiting started this morning and he is unable to keep anything down. His home Zofran and morphine sulfate did not relieve his symptoms. Patient is not currently receiving chemotherapy or cancer treatment. In the ED he was given IV Dilaudid, Amend and IV Unasyn after CT scan shows mild diverticulitis and small amount of pelvic ascites. He states he is due for colonoscopy in the short future. His labs are essentially unremarkable except except for mild anemia which is unchanged since his last admission on 01/18/2025. He was admitted for intractable nausea and vomiting and possible early diverticulitis on that admission. The patient is referred for admission for further treatment and workup Allergies Allergy/AdvReac Type Severity Reaction Status Date / Time carbamazepine [From Tegretol] Allergy Mild Rash Verified 01/18/25 16:03 Home Medications Medication Instructions Recorded Confirmed Type escitalopram oxalate 10 mg tablet 10 mg PO QAM 12/22/23 01/30/25 History olanzapine 5 mg tablet (Zyprexa) 5 mg PO HS 12/22/23 01/30/25 History cholecalciferol (vitamin D3) 50 50 mcg PO DAILY 02/13/24 01/30/25 History mcg (2,000 unit) tablet (Vitamin D3) cyanocobalamin (vitamin B-12) 500 500 mcg PO DAILYBD 02/13/24 01/30/25 History mcg tablet (Vitamin B-12) aprepitant 80 mg capsule 80 mg PO DAILY PRN Nausea And 04/13/24 01/30/25 History Vomiting folic acid 1 mg tablet 1 mg PO QDL 04/13/24 01/30/25 History lorazepam 0.5 mg tablet 0.5 mg PO Q6H PRN Anxiety 04/13/24 01/30/25 History morphine concentrate 100 mg/5 mL 10 mg PO Q4H PRN Pain 04/13/24 01/30/25 History (20 mg/mL) oral solution prochlorperazine maleate 10 mg 10 mg PO Q6H PRN Nausea And 04/13/24 01/30/25 History tablet Vomiting ferrous sulfate 325 mg (65 mg 325 mg PO 3XWK 11/06/24 01/30/25 History iron) tablet ondansetron HCl 8 mg tablet 8 mg PO Q8H PRN Nausea And Vomiting 11/06/24 01/30/25 History dicyclomine 10 mg capsule 10 mg PO QID PRN abd pain 01/18/25 01/30/25 History magnesium 250 mg tablet 250 mg PO 4XWK 01/18/25 01/30/25 History pantoprazole 40 mg tablet,delayed 40 mg PO QAM 01/18/25 01/30/25 History release Past Med/Surg History Problem List Diverticulitis (Acute) Abnormal abdominal CT scan (Acute) Hypomagnesemia (Acute) Vomiting (Acute) Diffuse abdominal pain (Acute) Abdominal pain (Acute) Pancreatitis (Acute) Intractable nausea and vomiting (Acute) Medical History Acute diverticulitis Intractable nausea and vomiting History of esophageal cancer Severe malnutrition Anemia Esophageal cancer diagnosed 04/2023--chemo/ERCP 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 Edmonds[place] [place] History of recent blood transfusion 05/02/23 @ [facility] Enteropathogenic Escherichia coli infection Hyponatremia Trigeminal neuralgia Hypomagnesemia Vomiting and diarrhea Iron deficiency received blood transfusion 05/02/23 @ [facility] Surgical History History of colonoscopy History of esophagogastroduodenoscopy (EGD) History of tooth extraction partial upper and lower denture History of [place]CP 04[place]2023 [place] [facility] [place] History of vascular access device A port--power port in placed on right side of chest Family History Father Stroke Social History Smoking Status: Never smoker Tobacco Type: Cigarettes Second Hand Exposure: No; Do You Dip or Chew Tobacco: No; Hx Alcohol Use: Yes Alcohol type: beer Hx Substance Use: No Preferred Language: Ugandan Communication Ability: Effective Mechanotherapist Required: No Beliefs That Will Affect Care: None marital status: Current Living Situation: Spouse Feels Safe at Home: Yes Assistive Devices: Glasses Review of Systems Review of Systems: Constitutional- no fever; no chills Eyes- no acute visual changes ENT- no sinus drainage; no pharyngitis Pulmonary- no cough, no wheezing, no shortness of breath Cardiac- no chest pain, no palpitations, no orthopnea, no dependent edema GI-positive for nausea, vomiting and abdominal pain as above, he states the abdominal pain is mainly periumbilical and more to the left. No melena, no hematochezia. Last BM was this morning and he states it was normal - no dysuria, no hematuria Musculoskeletal- no arthralgias, no myalgias Neuro- no headaches, no focal neurologic symptoms Physical Exam Physical Exam: General- adult male seen at bedside, he appears malnourished Head- atraumatic Eyes- PERRL, EOMI, anicteric ENT- oropharynx clear Neck- supple, no JVD, no adenopathy, no thyromegaly; carotids +2/2, no bruits appreciated Lungs- clear to auscultation and percussion Heart- regular rhythm; no murmur, no gallop, no rub appreciated Abdomen-positive bowel sounds, generalized tenderness in the periumbilical left lower quadrant and right lower quadrant areas. No masses or rebound tenderness Extremities- no pretibial edema, no calf tenderness; peripheral pulses intact Neuro- alert, oriented x 3; PERRL, EOMI; no facial palsy; no dysarthria; motor 5/5 bilaterally; Skin- warm & dry Results & Data Results & Data Vital Signs (Past 12 Hours) Vital Signs Temp Pulse Pulse Resp BP BP Pulse Ox 01/30/25 19:18 62 13 96 01/30/25 19:17 161/101 H 01/30/25 19:17 62 16 161/101 H 96 01/30/25 19:09 63 13 96 01/30/25 19:03 63 13 95 01/30/25 19:03 171/104 H 01/30/25 19:03 171/104 H 01/30/25 18:51 70 16 97 01/30/25 18:45 69 15 97 01/30/25 18:30 69 16 97 01/30/25 18:27 97 01/30/25 18:03 72 13 97 01/30/25 17:51 72 16 98 01/30/25 17:48 72 12 96 01/30/25 17:33 67 15 99 01/30/25 17:30 63 01/30/25 17:20 67 20 179/114 H 98 01/30/25 16:50 36.6 C 82 19 164/97 H 98 O2 Del Method 01/30/25 19:18 01/30/25 19:17 01/30/25 19:17 Room Air 01/30/25 19:09 01/30/25 19:03 01/30/25 19:03 01/30/25 19:03 01/30/25 18:51 01/30/25 18:45 01/30/25 18:30 01/30/25 18:27 01/30/25 18:03 01/30/25 17:51 01/30/25 17:48 01/30/25 17:33 01/30/25 17:30 01/30/25 17:20 Room Air 01/30/25 16:50 Room Air Diagnostic Findings Laboratory Results WBC 5.27 K/ul (4.8-10.8) 01/30/25 17:10 RBC 3.64 M/uL (4.70-6.10) L 01/30/25 17:10 Hgb 11.0 g/dl (14.0-18.0) L 01/30/25 17:10 Hct 31.9 % (42.0-52.0) L 01/30/25 17:10 MCV 87.6 fL (80.0-100.0) 01/30/25 17:10 MCH 30.2 pg (25.0-34.0) 01/30/25 17:10 MCHC 34.5 g/dL (32.0-36.0) 01/30/25 17:10 RDW Std Deviation 45.8 fL (36.4-46.3) 01/30/25 17:10 RDW Coeff of Stone 14.3 % (11.5-14.5) 01/30/25 17:10 Plt Count 246 K/uL (130-400) 01/30/25 17:10 MPV 10.1 fL (9.4-12.4) 01/30/25 17:10 Immature Gran % (Auto) 0.4 % 01/30/25 17:10 Neut % (Auto) 75.5 % 01/30/25 17:10 Lymph % (Auto) 15.0 % 01/30/25 17:10 Posey % (Auto) 8.7 % 01/30/25 17:10 Eos % (Auto) 0.0 % 01/30/25 17:10 Baso % (Auto) 0.4 % 01/30/25 17:10 Neut # (Auto) 3.98 K/uL (1.40-6.50) 01/30/25 17:10 Lymph # (Auto) 0.79 K/uL (1.20-3.40) L 01/30/25 17:10 Posey # (Auto) 0.46 K/uL (0.11-0.59) 01/30/25 17:10 Eos # (Auto) 0.00 K/uL (0.00-0.50) 01/30/25 17:10 Baso # (Auto) 0.02 K/uL (0.00-0.20) 01/30/25 17:10 Immature Gran # (Auto) 0.02 K/uL (0.01-0.20) 01/30/25 17:10 Sodium 135 mmol/L (136-145) L 01/30/25 17:10 Potassium 3.7 mmol/L (3.5-5.1) 01/30/25 17:10 Chloride 103 mmol/L (98-107) 01/30/25 17:10 Carbon Dioxide 22 mmol/L (21-32) 01/30/25 17:10 Anion Gap 10 (3-11) 01/30/25 17:10 BUN 7 mg/dl (6-23) 01/30/25 17:10 Creatinine 0.58 mg/dl (0.6-1.4) L 01/30/25 17:10 Est Cr Clr Drug Dosing 113.2 ml/min 01/30/25 17:10 eGFR 111.65 01/30/25 17:10 BUN/Creatinine Ratio 12.1 (10-20) 01/30/25 17:10 Glucose 112 mg/dl (70-99(Fasting)) H 01/30/25 17:10 Calcium 8.6 mg/dl (8.6-10.3) 01/30/25 17:10 Total Bilirubin 0.5 mg/dl (0.2-1.0) 01/30/25 17:10 AST 29 U/L (13-39) 01/30/25 17:10 ALT 30 U/L (7-52) 01/30/25 17:10 Alkaline Phosphatase 109 U/L (34-104) H 01/30/25 17:10 Total Protein 6.3 gm/dl (6.0-8.3) 01/30/25 17:10 Albumin 3.7 gm/dl (3.4-5.0) 01/30/25 17:10 Globulin 2.6 gm/dl (2.5-4.0) 01/30/25 17:10 Albumin/Globulin Ratio 1.4 (0.9-2) 01/30/25 17:10 Lipase 19 U/L (11-82) 01/30/25 17:10 Impressions Abdomen/Pelvis CT 01/30/25 17:03 EXAM: CT abd pelvis IV con only CLINICAL HISTORY: Severe abd pain, hx diverticulitis. TECHNIQUE: Contrast-enhanced CT of the abdomen and pelvis was performed, with the following protocol: axial images with, and reconstructed coronal and sagittal images. 90 ml optiray 320 Intravenous contrast was administered. One of the following dose reduction techniques was utilized for this exam: Automated exposure control, adjustment of the mA and/or kV according to patient size, and use of iterative reconstruction. COMPARISON: 01/18/2025 FINDINGS: Abdomen: Liver: The liver is of normal size, attenuation, and contour with no sign of cirrhosis or significant fatty infiltration. There is a 5 mm cyst in the left hepatic lobe. No liver mass lesion is seen. The portal vein is patent. Gallbladder and Biliary System: The gallbladder is normal in size and shape. No wall thickening, pericholecystic fluid, or gallstones were identified. The common bile duct is normal in caliber without dilation. Pancreas: The pancreatic duct is mildly prominent within the pancreatic head, measuring up to 3 mm. There is no definite sign of acute pancreatitis. No definite pancreatic mass lesion is seen Spleen: Normal in size, shape, and density. No splenic lesions or masses were identified. Appendix: The appendix is normal in size without abbi appendiceal fat stranding, and without an appendicolith. No evidence of appendiceal abscess or perforation. Kidneys and Adrenal Glands: Both kidneys are normal in size, shape, and position. Cortical thickness is within normal limits. No renal calculi or hydronephrosis. Adrenal glands are unremarkable with no evidence of masses or hyperplasia. Pelvis: Urinary Bladder: Normal in contour and wall thickness. No intraluminal lesions identified. Prostate: Normal in size and contour. No focal lesions or masses identified. No abnormalities noted. Rectum and Sigmoid Colon: Normal wall thickness and no evidence of mass. Peritoneal and Retroperitoneal Structures: No enlarged lymphadenopathy was noted. Bowel: The visualized bowel loops are normal in caliber and appearance. No evidence of bowel obstruction or wall thickening. There is a small hiatal hernia. There has been an apparent partial gastrectomy with gastrojejunostomy. There is no sign of small bowel obstruction. There is diverticulosis with possible mild diverticulitis of the descending colon. No free intraperitoneal air is identified. There is a small amount of free pelvic fluid Bones and Soft Tissues: Pelvic bones and soft tissues are unremarkable. No fractures or abnormal masses were identified. Lumbar degenerative disc disease IMPRESSION: 1. Mild acute diverticulitis. There is no perforation or abscess formation. 2. Small amount of pelvic ascites (stable). 3. Small hepatic cyst (stable). 4. Small hiatal hernia (stable). 5. Mild prostatomegaly (stable). 6. No other interval changes. Electronically signed by Francisco Javier Garcia 01-30-2025 7:46 PM Chest X-Ray 01/30/25 17:03 Technique: 2 frontal views of the chest were obtained Comparison is made to the prior examination dated 01/18/2025 Findings: There are no confluent pulmonary infiltrates. The heart size is within normal limits. No pleural effusion or pneumothorax is seen. There is no definite pulmonary nodule. There is an unchanged old healed right rib fracture. There is a right chest wall port with its tip in the SVC Impression: No active disease Electronically signed by Blake Huynh 01-30-2025 6:57 PM
[2025-01-30] MEDS ORDERED: MoRPHine SULFATE 10 MG/0.5 ML UDP PO PRN (22:15)
[2025-01-30] MEDS ORDERED: DICYCLOMINE HCL 10 MG CAP PO PRN (22:15)
[2025-01-30] MEDS ORDERED: ACETAMINOPHEN 325 MG TAB PO PRN (22:15)
[2025-01-30] MEDS ORDERED: LORazepam 0.5 MG TAB PO PRN (22:15)
[2025-01-30] MEDS ORDERED: MELATONIN 3 MG TAB PO PRN (22:15)
[2025-01-30] MEDS ORDERED: AMPICILLIN/SULBACTAM SOD 1,500 MG/100 ML BAG IV SCH (22:15)
[2025-01-30] MEDS ORDERED: ALUMINUM/MAGNESIUM SUSP 30 ML UDC PO PRN (22:15)
[2025-01-30] MEDS ORDERED: POLYETHYLENE (MIRALAX) 17 GM PACK PO PRN (22:15)
[2025-01-30 22:33] LABS: Appearance Urine Clear (Clear); Bilirubin Urine Negative (Negative); Blood Urine Negative (Negative); Color Urine Yellow; Glucose Urine UA Negative (Negative); Ketones Urine 1+ (Negative); Leukocyte Esterase Urine Negative (Negative); Nitrite Urine Negative (Negative); Protein Urine Negative (Negative); Specific Gravity Urine 1.044 (1.000-1.030); Urobilinogen Urine Negative (Negative); pH Urine 6.5 (4.5-7.5)
[2025-01-30] MEDS: KETOROLAC TROMETHAMINE 15 MG/ML VIAL IV ONE (22:57)
[2025-01-30] MEDS: OLANZapine 5 MG TABLET PO SCH (22:57)
[2025-01-30] MEDS: SODIUM CHLORIDE 0.9% 500 ML IV SCH (23:00)
[2025-01-30 23:39] VITALS: RESP 16
[2025-01-30] MEDS: ENOXAPARIN INJ 40 MG/0.4 ML SYR SQ SCH (23:43)
[2025-01-31] MEDS: AMPICILLIN/SULBACTAM SOD 3,000 MG/100 ML BAG IV SCH (01:51)
[2025-01-31] MEDS: HYDROmorphone INJ 0.5 MG/0.5 ML SYR IV PRN (01:51)
[2025-01-31] MEDS: APREPITANT 80 MG CAP PO PRN (05:56)
[2025-01-31 08:10] LABS: Hematocrit (blood only) 28.2 % (42.0-52.0); Hemoglobin 9.8 g/dl (14.0-18.0); Mean Corpuscular Hemoglobin 30.8 pg (25.0-34.0); Mean Corpuscular Hgb Conc 34.8 g/dL (32.0-36.0); Mean Corpuscular Volume 88.7 fL (80.0-100.0); Mean Platelet Volume 10.3 fL (9.4-12.4); Platelet Count 220 K/uL (130-400); RDW Coefficient of Variation 14.6 % (11.5-14.5); Red Blood Count 3.18 M/uL (4.70-6.10); White Blood Count 4.77 K/ul (4.8-10.8)
[2025-01-31 08:28] LABS: BUN Creatinine Ratio 9.4 (10-20); Calcium 8.4 mg/dl (8.6-10.3); Creatinine Clr Calc Pharmacy 97.2 ml/min; Magnesium 1.7 mg/dl (1.7-2.4); Phosphorus 3.6 mg/dl (2.5-4.9); Potassium 3.7 mmol/L (3.5-5.1)
[2025-01-31] MEDS: HEPARIN 100 UNIT/ML 5ML FLUSH FLUSH PRN (08:36)
[2025-01-31] MEDS: CHOLECALCIFEROL 25 MCG (1000 UNITS) TAB PO SCH (08:39)
[2025-01-31] MEDS: PANTOprazole 40 MG TAB PO SCH (08:39)
[2025-01-31] MEDS: ESCITALOPRAM OXALATE 10 MG TAB PO SCH (08:39)
--- NOTE | 2025-01-31 10:05 | Gastrointestinal Consultation ---
Date of Consultation January 31, 2025 Assessment & Plan (1) Abdominal pain: 59 year old male w/ 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 Edmonds, 5 cm abscess near the EJ anastomosis, hx of PEG placement in 2023 due to malnutrition, chronic anemia, history of trigeminal neuralgia and others below admitted w/ lower abd pain, nausea/vomiting. CTAP w/ mild acute diverticulitis, no perforation or abscess formation. He is clinically improving on IV ABX. He notes recent EGD/Colonoscopy in December 2024 w/ report of poor prep rescheduled for two days preparation. His nausea/vomiting is resolved and pain is improved! Clear liquid --> advance to low residue as tolerated Continue IV ABX Miralax 1 capful daily Keep OP colonoscopy with [facility] w/ a two day prep Continue scheduled antiemetic regimen/pain regimen per outpatient dosing directed by palliative medicine I spent a total of 60 minutes on the date of service in review of patient's record, and previously obtained information in person and appropriate medical visit, discussion and education of plan, with patient and/or caregiver, placing orders for tests/referral/procedures as medically necessary and documentation of pertinent clinical information in patient's medical records for their visit today. Supervising Physician Co-Signing Physician Notes Possible acute diverticulitis. Patient's had 7 CT scans of the abdomen pelvis since August for abdominal pain nausea and vomiting. The CT scans in August and September is suggested may be colitis. Though not diverticulitis since November there is been some wall thickening labeled as possible mild diverticulitis. Unusual though there is free fluid in the pelvis not typical in a male and some mesenteric edema. He states he was treated with antibiotics which seem to be helpful. He is now on antibiotics. He denies omar fevers or chills he denies any melena hematochezia. There was an attempt at a colonoscopy at [facility] though his prep was not adequate. He was not to be rescheduled. He has these persistent symptoms for 6 months free fluid in the pelvis possibility of pathology other than diverticulitis should be considered. This could include colitis, peritoneal disease in this gentleman with a history of cancer or primary colon tumor. I did offer him a flexible sigmoidoscopy. We did discuss the potential risks of colonoscopy or flexible sigmoidoscopy in a patient with acute diverticulitis. He states he wishes to wait to have a full colonoscopy done. Continue antibiotics at present. Told him he should contact his treat previous treating gastroenterology group. I believe he should have a colonoscopy within the next 4 weeks if can be scheduled adequately. History of Present Illness Reason for Consultation: recurrent n/v, abd.pain, ? diverticulitis Requesting Physician: Ronald Dillon MD Attending Physician: Ronald Dillon MD History of Present Illness 59 year old male w/ 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 Edmonds, 5 cm abscess near the EJ anastomosis, hx of PEG placement in 2023 due to malnutrition, chronic anemia, history of trigeminal neuralgia and others below admitted w/ lower abd pain nausea/vomiting onset about 24 hours ago. Delphos similar to prior episodes of diverticulitis. He was made NPO and started on IV ABX. Suggests this AM he is feeling improved. Pain is less severe, less frequent. No further nausea. No vomiting. No change in bowel habits. No black or bloody stools. No fever, chills, CP, SOB. He reports EGD/Colon in December 2024, poor prep, is rescheduled w/ a two day prep at [facility]. CTAP 2024: Mild acute diverticulitis. There is no perforation or abscess formation. Small amount of pelvic ascites (stable). Small hepatic cyst (stable). Small hiatal hernia (stable). Mild prostatomegaly (stable). No other interval changes. CTAP 2024: No bowel obstruction. Mild wall thickening of the sigmoid colon is again seen. The appendix is unremarkable. Trevin-en-Y gastric bypass changes. Small sliding hiatal hernia. Colonoscopy 2024: Preparation of the colon was inadequate. - Hemorrhoids found on perianal exam. - Stool in the sigmoid colon. - No specimens collected. EGD 2024: Mucosal nodule found in the esophagus. Biopsied. s/p gastrectomy. Normal examined jejunum. EGD 2023: An esophago-jejunal anastomosis was found. Normal examined jejunum. Feeding tube placement was successfully performed. No specimens collected.All instruments are visually inspected immediately before and after removal from the patient to ensure they are fully intact. EGD 2022: Pre-existing esophageal stent, removed. Colonoscopy 2022: The examined portion of the ileum was normal.One 7 mm polyp in the sigmoid colon, removed with a hot snare. Resected and retrieved. Diverticulosis in the sigmoid colon. Internal hemorrhoids.The examination was otherwise normal on direct and retroflexion views. Allergies Allergy/AdvReac Type Severity Reaction Status Date / Time carbamazepine [From Tegretol] Allergy Mild Rash Verified 01/18/25 16:03 Home Medications Medication Instructions Recorded Confirmed Type escitalopram oxalate 10 mg tablet 10 mg PO QAM 12/22/23 01/30/25 History olanzapine 5 mg tablet (Zyprexa) 5 mg PO HS 12/22/23 01/30/25 History cholecalciferol (vitamin D3) 50 50 mcg PO DAILY 02/13/24 01/30/25 History mcg (2,000 unit) tablet (Vitamin D3) cyanocobalamin (vitamin B-12) 500 500 mcg PO DAILYBD 02/13/24 01/30/25 History mcg tablet (Vitamin B-12) aprepitant 80 mg capsule 80 mg PO DAILY PRN Nausea And 04/13/24 01/30/25 History Vomiting folic acid 1 mg tablet 1 mg PO QDL 04/13/24 01/30/25 History lorazepam 0.5 mg tablet 0.5 mg PO Q6H PRN Anxiety 04/13/24 01/30/25 History morphine concentrate 100 mg/5 mL 10 mg PO Q4H PRN Pain 04/13/24 01/30/25 History (20 mg/mL) oral solution prochlorperazine maleate 10 mg 10 mg PO Q6H PRN Nausea And 04/13/24 01/30/25 History tablet Vomiting ferrous sulfate 325 mg (65 mg 325 mg PO 3XWK 11/06/24 01/30/25 History iron) tablet ondansetron HCl 8 mg tablet 8 mg PO Q8H PRN Nausea And Vomiting 11/06/24 01/30/25 History dicyclomine 10 mg capsule 10 mg PO QID PRN abd pain 01/18/25 01/30/25 History magnesium 250 mg tablet 250 mg PO 4XWK 01/18/25 01/30/25 History pantoprazole 40 mg tablet,delayed 40 mg PO QAM 01/18/25 01/30/25 History release Patient History Medical History Acute diverticulitis Intractable nausea and vomiting History of esophageal cancer Severe malnutrition Anemia Esophageal cancer diagnosed 04/2023--chemo/ERCP T3 N1 Siewert III GE junction invasive adenocarcinoma status post neoadjuvant chemotherapy x 4 cycles and status post total gastrectomy with Trevin y e sophageal jejunostomy on 08/[address] Edmonds/[facility] History of recent blood transfusion 05/02/23 @ [facility] Enteropathogenic Escherichia coli infection Hyponatremia Trigeminal neuralgia Hypomagnesemia Vomiting and diarrhea Iron deficiency received blood transfusion 05/02/23 @ [facility] Surgical History History of colonoscopy History of esophagogastroduodenoscopy (EGD) History of tooth extraction partial upper and lower denture History of ERCP 04[place]23 [place] [facility] [place] History of vascular access device A port--power port in placed on right side of chest Family History Father Stroke Social History Smoking Status: Never smoker Tobacco Type: Cigarettes Second Hand Exposure: No; Do You Dip or Chew Tobacco: No; Hx Alcohol Use: Yes Alcohol type: other Hx Substance Use: No Preferred Language: Setswana 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 Physical Exam Constitutional: WD/WN, vitals as above Gastrointestinal (Abdomen): Inspection/Auscultation: abdomen normal to inspection and normal bowel sounds Percussion/Palpation: + abdomen tender (mild discomfort) and abdomen soft; no guarding and abdomen not rigid Skin: no rashes, warm and dry Results & Data Vital Signs (Past 12 Hours) Vital Signs Temp Pulse Pulse Resp BP BP Pulse Ox 01/31/25 07:46 97.7 F 49 L 16 112/64 98 01/30/25 22:15 97.7 F 64 16 108/69 93 01/30/25 22:01 51 L 14 105/67 96 O2 Del Method 01/31/25 07:46 Room Air 01/30/25 22:15 Room Air 01/30/25 22:01 Room Air Laboratory Results 01/31/25 01/30/25 01/30/25 Range/Units 07:39 22:20 17:10 WBC 4.77 L 5.27 (4.8-10.8) K/ul RBC 3.18 L 3.64 L (4.70-6.10) M/uL Hgb 9.8 L 11.0 L (14.0-18.0) g/dl Hct 28.2 L 31.9 L (42.0-52.0) % MCV 88.7 87.6 (80.0-100.0) fL MCH 30.8 30.2 (25.0-34.0) pg MCHC 34.8 34.5 (32.0-36.0) g/dL RDW Std Deviation 48.0 H 45.8 (36.4-46.3) fL RDW Coeff of Stone 14.6 H 14.3 (11.5-14.5) % Plt Count 220 246 (130-400) K/uL MPV 10.3 10.1 (9.4-12.4) fL Immature Gran % (Auto) 0.4 % Neut % (Auto) 75.5 % Lymph % (Auto) 15.0 % [place] % (Auto) 8.7 % Eos % (Auto) 0.0 % Baso % (Auto) 0.4 % Neut # (Auto) 3.98 (1.40-6.50) K/uL Lymph # (Auto) 0.79 L (1.20-3.40) K/uL [place] # (Auto) 0.46 (0.11-0.59) K/uL Eos # (Auto) 0.00 (0.00-0.50) K/uL Baso # (Auto) 0.02 (0.00-0.20) K/uL Immature Gran # (Auto) 0.02 (0.01-0.20) K/uL Sodium 138 135 L (136-145) mmol/L Potassium 3.7 3.7 (3.5-5.1) mmol/L Chloride 106 103 (98-107) mmol/L Carbon Dioxide 26 22 (21-32) mmol/L Anion Gap 6 10 (3-11) BUN 6 7 (6-23) mg/dl Creatinine 0.64 0.58 L (0.6-1.4) mg/dl Est Cr Clr Drug Dosing 97.2 113.2 ml/min eGFR 108.38 111.65 BUN/Creatinine Ratio 9.4 L 12.1 (10-20) Glucose 96 112 H (70-99(Fasting)) mg/dl Calcium 8.4 L 8.6 (8.6-10.3) mg/dl Phosphorus 3.6 (2.5-4.9) mg/dl Magnesium 1.7 (1.7-2.4) mg/dl Total Bilirubin 0.5 (0.2-1.0) mg/dl AST 29 (13-39) U/L ALT 30 (7-52) U/L Alkaline Phosphatase 109 H (34-104) U/L Total Protein 6.3 (6.0-8.3) gm/dl Albumin 3.7 (3.4-5.0) gm/dl Globulin 2.6 (2.5-4.0) gm/dl Albumin/Globulin Ratio 1.4 (0.9-2) Lipase 19 (11-82) U/L Urine Color Yellow Urine Appearance Clear (Clear) Urine pH 6.5 (4.5-7.5) Ur Specific [place] 1.044 H (1.000-1.030) Urine Protein Negative (Negative) Urine Glucose (UA) Negative (Negative) Urine Ketones 1+ H (Negative) Urine Blood Negative (Negative) Urine Nitrite Negative (Negative) Urine Bilirubin Negative (Negative) Urine Urobilinogen Negative (Negative) Ur Leukocyte Esterase Negative (Negative) Urine Comment PG Care Time/CCT Total # of Minutes Spent Total Time Spent with Patient: Total time spent is greater than 50% in coordination of care (as documented) at patient's floor/unit and/or counseling patient: Coding Level of Care Code 86047 IN/OBS CONSULT LVL 4,60M Diagnoses Abdominal pain R10.9
[2025-01-31] MEDS: FOLIC ACID 1 MG TAB PO SCH (11:54)
[2025-01-31] MEDS: CYANOCOBALAMIN (B-12) 500 MCG TABLET PO SCH (15:38)
--- NOTE | 2025-01-31 16:03 | Hospitalist Progress Note ---
Date of Service January 31, 2025 Assessment & Plan (1) Diverticulitis: Plan: Continue IV Zosyn for now Clear liquids Advance diet as tolerated Continue IV fluids GI consulted given recurrence of symptoms - recommend colonoscopy, pt recently had colonoscopy but the prep was poor. Pt wishes to follow up with his outpt providers for that. (2) Abdominal pain: Plan: Patient is improved after IV Dilaudid Analgesics as needed (3) Intractable nausea and vomiting: Plan: received emend, zofran, now resolved Plan Patient is a full code Lovenox for VTE prophylaxis Admission and Anticipated Discharge Date Admission Date: January 30, 2025 Subjective Pt seen in follow up of n/v, abd.pain, poss. diverticulitis Currently sitting up in bed in NAD, reports feeling improved , nausea has resolved, still has mild abd. pain, reports tolerating liquids and po meds No fever, chills, chest pain, shortness of breath Consulted w/ GI as pt w/ recurrent symptoms - recommend to cont. abx and to have colonoscopy - pt had recently colonoscopy but with poor prep Review of Systems Review of Systems: All systems reviewed & are unremarkable except as noted in Subjective Physical Exam Physical Exam: General- very thin M in NAD Head- atraumatic Eyes- PERRL, EOMI, anicteric Neck- supple Lungs- clear to auscultation Heart- regular rhythm; no murmur Abdomen- +bowel sounds, generalized mild tenderness in the periumbilical left lower quadrant and right lower quadrant areas Extremities- no pretibial edema, no calf tenderness Neuro- alert, oriented x 3; PERRL, EOMI; no facial palsy; no dysarthria; answers appropriately, moves extremities Skin- warm & dry Results & Data Results & Data Vital Signs (Past 12 Hours) Vital Signs Temp Pulse Resp BP Pulse Ox O2 Del Method 01/31/25 14:50 36.8 C 48 L 16 127/76 97 Room Air 01/31/25 07:46 36.5 C 49 L 16 112/64 98 Room Air Laboratory Results 01/31/25 01/30/25 01/30/25 Range/Units 07:39 22:20 17:10 WBC 4.77 L 5.27 (4.8-10.8) K/ul RBC 3.18 L 3.64 L (4.70-6.10) M/uL Hgb 9.8 L 11.0 L (14.0-18.0) g/dl Hct 28.2 L 31.9 L (42.0-52.0) % MCV 88.7 87.6 (80.0-100.0) fL MCH 30.8 30.2 (25.0-34.0) pg MCHC 34.8 34.5 (32.0-36.0) g/dL RDW Std Deviation 48.0 H 45.8 (36.4-46.3) fL RDW Coeff of Stone 14.6 H 14.3 (11.5-14.5) % Plt Count 220 246 (130-400) K/uL MPV 10.3 10.1 (9.4-12.4) fL Immature Gran % (Auto) 0.4 % Neut % (Auto) 75.5 % Lymph % (Auto) 15.0 % [place] % (Auto) 8.7 % Eos % (Auto) 0.0 % Baso % (Auto) 0.4 % Neut # (Auto) 3.98 (1.40-6.50) K/uL Lymph # (Auto) 0.79 L (1.20-3.40) K/uL [place] # (Auto) 0.46 (0.11-0.59) K/uL Eos # (Auto) 0.00 (0.00-0.50) K/uL Baso # (Auto) 0.02 (0.00-0.20) K/uL Immature Gran # (Auto) 0.02 (0.01-0.20) K/uL Sodium 138 135 L (136-145) mmol/L Potassium 3.7 3.7 (3.5-5.1) mmol/L Chloride 106 103 (98-107) mmol/L Carbon Dioxide 26 22 (21-32) mmol/L Anion Gap 6 10 (3-11) BUN 6 7 (6-23) mg/dl Creatinine 0.64 0.58 L (0.6-1.4) mg/dl Est Cr Clr Drug Dosing 97.2 113.2 ml/min eGFR 108.38 111.65 BUN/Creatinine Ratio 9.4 L 12.1 (10-20) Glucose 96 112 H (70-99(Fasting)) mg/dl Calcium 8.4 L 8.6 (8.6-10.3) mg/dl Phosphorus 3.6 (2.5-4.9) mg/dl Magnesium 1.7 (1.7-2.4) mg/dl Total Bilirubin 0.5 (0.2-1.0) mg/dl AST 29 (13-39) U/L ALT 30 (7-52) U/L Alkaline Phosphatase 109 H (34-104) U/L Total Protein 6.3 (6.0-8.3) gm/dl Albumin 3.7 (3.4-5.0) gm/dl Globulin 2.6 (2.5-4.0) gm/dl Albumin/Globulin Ratio 1.4 (0.9-2) Lipase 19 (11-82) U/L Urine Color Yellow Urine Appearance Clear (Clear) Urine pH 6.5 (4.5-7.5) Ur Specific [place] 1.044 H (1.000-1.030) Urine Protein Negative (Negative) Urine Glucose (UA) Negative (Negative) Urine Ketones 1+ H (Negative) Urine Blood Negative (Negative) Urine Nitrite Negative (Negative) Urine Bilirubin Negative (Negative) Urine Urobilinogen Negative (Negative) Ur Leukocyte Esterase Negative (Negative) Urine Comment Medications Administered Current Inpatient Medications Acetaminophen (Acetaminophen 325 Mg Tab) 650 mg PO Q4H PRN PRN Reason: pain/fever Stop: 03/01/25 22:14 Al Hydrox/Mg Hydrox/Simethicone (Aluminum/Magnesium Susp 30 Ml Udc) 30 ml PO Q6H PRN PRN Reason: Dyspepsia Stop: 03/01/25 22:14 Aprepitant (Aprepitant 80 Mg Cap) 80 mg PO DAILY PRN PRN Reason: Nausea And Vomiting Stop: 03/01/25 22:14 Last Admin: 01/31/25 05:56 Dose: 80 mg Cyanocobalamin (Cyanocobalamin (B-12) 500 Mcg Tablet) 500 mcg PO DAILYBD GREG Stop: 03/02/25 15:29 Last Admin: 01/31/25 15:38 Dose: 500 mcg Dicyclomine HCl (Dicyclomine Hcl 10 Mg Cap) 10 mg PO QID PRN PRN Reason: abd pain Stop: 03/01/25 22:14 Enoxaparin Sodium (Enoxaparin Inj 40 Mg/0.4 Ml Syr) 40 mg SQ Q24H [facility] Stop: 03/01/25 20:59 Last Admin: 01/30/25 23:43 Dose: 40 mg Escitalopram Oxalate (Escitalopram Oxalate 10 Mg Tab) 10 mg PO QAM [facility] Stop: 03/02/25 08:59 Last Admin: 01/31/25 08:39 Dose: 10 mg Ferrous Sulfate (Ferrous Sulfate 325 Mg Tab) 325 mg PO [id number]@0900 [facility] Stop: 03/03/25 08:59 Folic Acid (Folic Acid 1 Mg Tab) 1 mg PO QDL [facility] Stop: 03/02/25 11:29 Last Admin: 01/31/25 11:54 Dose: 1 mg Heparin Sodium (Porcine) (Heparin 100 Unit/Ml 5ml Flush) 5 ml FLUSH PRN PRN PRN Reason: Flush Stop: 03/02/25 01:58 Last Admin: 01/31/25 14:30 Dose: 5 ml Hydromorphone HCl (Hydromorphone Inj 0.5 Mg/0.5 Ml Syr) 0.5 mg IV Q6H PRN PRN Reason: Pain Stop: 02/13/25 22:14 Last Admin: 01/31/25 13:48 Dose: 0.5 mg Ampicillin Sodium/Sulbactam Sodium (Unasyn) 3,000 mg in 100 mls @ 200 mls/hr IV Q6H [facility]; Protocol Stop: 02/10/25 01:59 Last Infusion: 01/31/25 14:29 Dose: Infused Lorazepam (Lorazepam 0.5 Mg Tab) 0.5 mg PO Q6H PRN PRN Reason: Anxiety Stop: 03/01/25 22:14 Magnesium Oxide (Magnesium Oxide 400 Mg Tab) 400 mg PO [id number] [facility] Stop: 03/03/25 08:59 Melatonin (Melatonin 3 Mg Tab) 3 mg PO HS PRN PRN Reason: Insomnia Stop: 03/01/25 22:14 Morphine Sulfate (Morphine Sulfate 10 Mg/0.5 Ml Udp) 10 mg PO Q4H PRN PRN Reason: Pain Stop: 02/13/25 22:14 Olanzapine (Olanzapine 5 Mg Tablet) 5 mg PO HS GREG Stop: 03/01/25 22:14 Last Admin: 01/30/25 22:57 Dose: 5 mg Ondansetron HCl (Ondansetron 4 Mg Od Tab) 8 mg PO Q8H PRN PRN Reason: Nausea And Vomiting Stop: 03/01/25 22:39 Pantoprazole Sodium (Pantoprazole 40 Mg Tab) 40 mg PO QAM [facility] Stop: 03/02/25 08:59 Last Admin: 01/31/25 08:39 Dose: 40 mg Polyethylene Glycol (Polyethylene (Miralax) 17 Gm Pack) 17 gm PO DAILY PRN PRN Reason: Constipation Stop: 03/01/25 22:14 Vitamin D (Cholecalciferol 25 Mcg (1000 Units) Tab) 50 mcg PO DAILY [facility] Stop: 03/02/25 08:59 Last Admin: 01/31/25 08:39 Dose: 50 mcg
[2025-02-01 07:47] LABS: Hematocrit (blood only) 28.1 % (42.0-52.0); Hemoglobin 9.7 g/dl (14.0-18.0); Mean Corpuscular Hemoglobin 30.8 pg (25.0-34.0); Mean Corpuscular Hgb Conc 34.5 g/dL (32.0-36.0); Mean Corpuscular Volume 89.2 fL (80.0-100.0); Mean Platelet Volume 10.7 fL (9.4-12.4); Platelet Count 209 K/uL (130-400); RDW Coefficient of Variation 14.8 % (11.5-14.5); RDW Standard Deviation 48.5 fL (36.4-46.3); Red Blood Count 3.15 M/uL (4.70-6.10); White Blood Count 3.58 K/ul (4.8-10.8)
[2025-02-01 08:11] LABS: BUN Creatinine Ratio 7.9 (10-20); Calcium 8.3 mg/dl (8.6-10.3); Creatinine Clr Calc Pharmacy 98.8 ml/min; Magnesium 1.6 mg/dl (1.7-2.4); Phosphorus 3.9 mg/dl (2.5-4.9); Potassium 3.8 mmol/L (3.5-5.1)
[2025-02-01] MEDS: ONDANSETRON 4 MG OD TAB PO PRN (08:18)
[2025-02-01] MEDS: FERROUS SULFATE 325 MG TAB PO SCH (08:20)
[2025-02-01] MEDS: MAGNESIUM OXIDE 400 MG TAB PO SCH (08:21)
[2025-02-01 08:29] VITALS: BP 160/84; PULSE 53; TEMP 97.7; O2SAT 98
--- NOTE | 2025-02-01 09:12 | Discharge Summary ---
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 Abdon presents to the emergency department with complaints of severe lower abdominal pain, vomiting and nausea. He states that the abdominal pain, nausea and vomiting started this morning and he is unable to keep anything down. His home Zofran and morphine sulfate did not relieve his symptoms. Patient is not currently receiving chemotherapy or cancer treatment. In the ED he was given IV Dilaudid, Amend and IV Unasyn after CT scan shows mild diverticulitis and small amount of pelvic ascites. He states he is due for colonoscopy in the short future. His labs are essentially unremarkable except except for mild anemia which is unchanged since his last admission on 01/18/2025. He was admitted for intractable nausea and vomiting and possible early diverticulitis on that admission. The patient is referred for admission for further treatment and workup Admission Exam Per Admitting Provider General- adult male seen at bedside, he appears malnourished Head- atraumatic Eyes- PERRL, EOMI, anicteric ENT- oropharynx clear Neck- supple, no JVD, no adenopathy, no thyromegaly; carotids +2/2, no bruits appreciated Lungs- clear to auscultation and percussion Heart- regular rhythm; no murmur, no gallop, no rub appreciated Abdomen-positive bowel sounds, generalized tenderness in the periumbilical left lower quadrant and right lower quadrant areas. No masses or rebound tenderness Extremities- no pretibial edema, no calf tenderness; peripheral pulses intact Neuro- alert, oriented x 3; PERRL, EOMI; no facial palsy; no dysarthria; motor 5/5 bilaterally; Skin- warm & dry Principal Diagnosis Nausea/vomiting, recurrent Abdominal pain Possible acute diverticulitis Discharge Exam General- very thin M in NAD Head- atraumatic Eyes- PERRL, EOMI, anicteric Neck- supple Lungs- clear to auscultation Heart- regular rhythm; no murmur Abdomen- +bowel sounds, non- tender (resolved) Extremities- no pretibial edema, no calf tenderness Neuro- alert, oriented x 3; PERRL, EOMI; no facial palsy; no dysarthria; answers appropriately, moves extremities Skin- warm & dry Discharge Data Allergies Allergy/AdvReac Type Severity Reaction Status Date / Time carbamazepine [From Tegretol] Allergy Mild Rash Verified 01/18/25 16:03 Consultations 01/30/25 22:46 ED Decision to Admit Stat 01/31/25 09:43 Consult Gastroenterology Routine Ordered Studies 01/30/25 17:03 CT abd pelvis IV con only Stat FINDINGS: Abdomen: Liver: The liver is of normal size, attenuation, and contour with no sign of cirrhosis or significant fatty infiltration. There is a 5 mm cyst in the left hepatic lobe. No liver mass lesion is seen. The portal vein is patent. Gallbladder and Biliary System: The gallbladder is normal in size and shape. No wall thickening, pericholecystic fluid, or gallstones were identified. The common bile duct is normal in caliber without dilation. Pancreas: The pancreatic duct is mildly prominent within the pancreatic head, measuring up to 3 mm. There is no definite sign of acute pancreatitis. No definite pancreatic mass lesion is seen Spleen: Normal in size, shape, and density. No splenic lesions or masses were identified. Appendix: The appendix is normal in size without abbi appendiceal fat stranding, and without an appendicolith. No evidence of appendiceal abscess or perforation. Kidneys and Adrenal Glands: Both kidneys are normal in size, shape, and position. Cortical thickness is within normal limits. No renal calculi or hydronephrosis. Adrenal glands are unremarkable with no evidence of masses or hyperplasia. Pelvis: Urinary Bladder: Normal in contour and wall thickness. No intraluminal lesions identified. Prostate: Normal in size and contour. No focal lesions or masses identified. No abnormalities noted. Rectum and Sigmoid Colon: Normal wall thickness and no evidence of mass. Peritoneal and Retroperitoneal Structures: No enlarged lymphadenopathy was noted. Bowel: The visualized bowel loops are normal in caliber and appearance. No evidence of bowel obstruction or wall thickening. There is a small hiatal hernia. There has been an apparent partial gastrectomy with gastrojejunostomy. There is no sign of small bowel obstruction. There is diverticulosis with possible mild diverticulitis of the descending colon. No free intraperitoneal air is identified. There is a small amount of free pelvic fluid Bones and Soft Tissues: Pelvic bones and soft tissues are unremarkable. No fractures or abnormal masses were identified. Lumbar degenerative disc disease IMPRESSION: 1. Mild acute diverticulitis. There is no perforation or abscess formation. 2. Small amount of pelvic ascites (stable). 3. Small hepatic cyst (stable). 4. Small hiatal hernia (stable). 5. Mild prostatomegaly (stable). 6. No other interval changes. Hospital Course (1) Diverticulitis: On IV Zosyn/ IV unasyn while inpt Clear liquids -> advanced to low fiber and tolerating Received IV fluids GI consulted given recurrence of symptoms - recommend colonoscopy, pt recently had colonoscopy but the prep was poor. Pt wishes to follow up with his outpt providers for that. Discussed w/ GI today - ok to Dc today, finish abx and follow up w/ GI for colonoscopy, recommend within 4 weeks. Pt is feeling well today, denies any more nausea or vomiting also denies any abd. pain. Tolerated breakfast this AM. Wishes to be discharged. (2) Abdominal pain: Initially received IV Dilaudid Now pt reports abd. pain is resolved (3) Intractable nausea and vomiting: received emend, zofran, now resolved Total Time Total Time Spent Total Time Spent (In Minutes): 40 Discharge Plan Discharge Items Patient Disposition: Home - Self-Care Reason For Visit: INTRACTABLE NAUSEA AND VOMITING, DIVERTICULITIS Discharge Diagnosis: Nausea/vomiting, recurrent Abdominal pain Possible acute diverticulitis Condition on Discharge: Fair Activity: Per Instructions section Non-emergency contact: Primary Care Provider, Specialist and Turn Supervisor Call non-emergency contact if: you have any medication questions and your symptoms worsen Follow-up/Referrals: Thaddeus Solis MD [Primary Care Provider] - (Date & Time 02/08/2025 11:20 AM Provider: Thaddeus Solis MD [facility], [facility] ) Belgica Slaughter CRNP [Outside Practitioners] - (Date & Time 02/07/2025 8:30 AM Provider: Belgica Slaughter CRNP Gastroenterology, [facility]) Diet: Full liquid and Low Fiber Diet Comment: advance diet slowly to low fiber diet, further recommendations by your GI Addtl Attending Provider Instructions: Follow up with primary care doctor and gastroenterology. Finish antibiotics as prescribed. It is recommended that you have your colonoscopy rescheduled within next 4 weeks. Pending Studies at Discharge: No Stand-Alone Forms: My [facility], Smoking Cessation Medications and DC Order Prescriptions: New amoxicillin-pot clavulanate 875-125 mg tablet 1 tab PO BID 12 Days Qty: 24 0RF Continued cyanocobalamin (vitamin B-12) [Vitamin B-12] 500 mcg Tablet 500 mcg PO DAILYBD cholecalciferol (vitamin D3) [Vitamin D3] 50 mcg (2,000 unit) Tablet 50 mcg PO DAILY magnesium 250 mg Tablet 250 mg PO 4XWK pantoprazole 40 mg tablet,delayed release (DR/EC) 40 mg PO QAM dicyclomine 10 mg capsule 10 mg PO QID PRN (Reason: abd pain) Rx Instructions: reports typically takes once a day olanzapine [Zyprexa] 5 mg tablet 5 mg PO HS escitalopram oxalate 10 mg tablet 10 mg PO QAM morphine concentrate 100 mg/5 mL (20 mg/mL) solution 10 mg PO Q4H PRN (Reason: Pain) Hold Instructions: Resume on 12/11/24. Rx Instructions: 0.5 ML q4h prn prochlorperazine maleate 10 mg tablet 10 mg PO Q6H PRN (Reason: Nausea And Vomiting) lorazepam 0.5 mg tablet 0.5 mg PO Q6H PRN (Reason: Anxiety) folic acid 1 mg tablet 1 mg PO QDL aprepitant 80 mg capsule 80 mg PO DAILY PRN (Reason: Nausea And Vomiting) ondansetron HCl 8 mg tablet 8 mg PO Q8H PRN (Reason: Nausea And Vomiting) ferrous sulfate 325 mg (65 mg iron) Tablet 325 mg PO 3XWK Hold Instructions: Resume on 11/19/24. Rx Instructions: Mon/Tue/Fri Discharge Orders: Discharge Order (Routine); Ordered 02/01/25 Ordered By: Ronald Hernandez/Other Patient Handouts: Communicating About Pain Admission Data Admit Date/Time: 01/30/25 21:10 Attending Provider: Ronald Dillon Admit Provider: Rolo Armando Primary Care Provider: Thaddeus Solis Other Providers: Praveen Garibay; Veronique Rodriguez; Allen Wolfe Other Interventions: Discharge Summary Assessment (RN) Last Done: 02/01/25 10:11
[2025-02-01] MEDS: MAGNESIUM SULFATE / D5W 1 GM/100 ML BAG IV ONE (09:23)
--- NOTE | 2025-02-01 09:37 | Gastroenterology Progress Note ---
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 Edmonds, 5 cm abscess near the EJ anastomosis, hx of PEG placement in 2023 due to malnutrition, chronic anemia, history of trigeminal neuralgia and others below admitted w/ lower abd pain, nausea/vomiting. CTAP w/ mild acute diverticulitis, no perforation or abscess formation. He is clinically improving on IV ABX. He notes recent EGD/Colonoscopy in December 2024 w/ report of poor prep rescheduled for two days preparation. His nausea/vomiting is resolved and pain is improved! Low residue as tolerated Continue IV ABX --> convert to full course of PO at discharge Miralax 1 capful daily Keep OP colonoscopy with [facility] w/ a two day prep Continue scheduled antiemetic regimen/pain regimen per outpatient dosing directed by palliative medicine I spent a total of 30 minutes on the date of service in review of patient's record, and previously obtained information in person and appropriate medical visit, discussion and education of plan, with patient and/or caregiver, placing orders for tests/referral/procedures as medically necessary and documentation of pertinent clinical information in patient's medical records for their visit today. Admission and Anticipated Discharge Date Admission Date: January 30, 2025 Subjective Feeling well. Tolerating dietary advancement. Desires to go home w/ plan for OP colonoscopy w/ [facility]. Review of Systems Review of Systems: All other findings negative except as noted in HPI. Physical Exam Constitutional: WD/WN, vitals as above Gastrointestinal (Abdomen): normal bowel sounds, soft, nontender, no hepatosplenomegaly Skin: no rashes, warm and dry Results & Data Results & Data Vital Signs (Past 12 Hours) Vital Signs Temp Pulse Resp BP Pulse Ox O2 Del Method 02/01/25 08:28 97.7 F 53 L 16 160/84 H 98 Room Air Laboratory Results 02/01/25 Range/Units 06:34 WBC 3.58 L (4.8-10.8) K/ul RBC 3.15 L (4.70-6.10) M/uL Hgb 9.7 L (14.0-18.0) g/dl Hct 28.1 L (42.0-52.0) % MCV 89.2 (80.0-100.0) fL MCH 30.8 (25.0-34.0) pg MCHC 34.5 (32.0-36.0) g/dL RDW Std Deviation 48.5 H (36.4-46.3) fL RDW Coeff of Stone 14.8 H (11.5-14.5) % Plt Count 209 (130-400) K/uL MPV 10.7 (9.4-12.4) fL Sodium 139 (136-145) mmol/L Potassium 3.8 (3.5-5.1) mmol/L Chloride 106 (98-107) mmol/L Carbon Dioxide 27 (21-32) mmol/L Anion Gap 6 (3-11) BUN 5 L (6-23) mg/dl Creatinine 0.63 (0.6-1.4) mg/dl Est Cr Clr Drug Dosing 98.8 ml/min eGFR 108.90 BUN/Creatinine Ratio 7.9 L (10-20) Glucose 89 (70-99(Fasting)) mg/dl Calcium 8.3 L (8.6-10.3) mg/dl Phosphorus 3.9 (2.5-4.9) mg/dl Magnesium 1.6 L (1.7-2.4) mg/dl PG Care Time/CCT Total # of Minutes Spent Total Time Spent with Patient: Total time spent is greater than 50% in coordination of care (as documented) at patient's floor/unit and/or counseling patient: Coding Level of Care Code 44723 SUB INP/OBS CARE 09/08MIN Diagnoses Abdominal pain R10.9
--- NOTE | 2025-02-04 06:36 | Coding Query ---
MALNUTRITION To promote full compliance with coding requirements relating to patient care, physician participation is requested in all cases of manager talent management uncertainty. Please assist us with the question(s) below: Please place an X within the parenthesis (x). If other, please document: "Malnutrition" is documented in this record. If possible, please check the box that provides a more specific diagnosis: ( ) Mild malnutrition ( x) Moderate to severe malnutrition with BMI 17.2 ( ) Severe malnutrition ( ) Protein malnutrition (kwashiorkor) ( ) Severe protein calorie malnutrition ( ) Protein calorie malnutrition, unspecified ( ) Other (please specify): Was this diagnosis present on admission? Please place an X within the parenthesis (x). ( x) Present on admission ( ) Not present on admission ( ) Unable to be clinically determined Thank you JAQUELINE Hillman [facility]
== END 2025-02-01 10:35 | disposition home or self-care (01) | DRG 391 ==
LOC: ED 16:48 → SUATTDRO 21:10 → INTOOBSV 21:10 → 3N 21:10

== ENCOUNTER 2025-04-11 08:36 | Inpatient (IN) ==
--- NOTE | 2025-04-11 08:46 | Emergency Department Note ---
Impression & Plan Unwitnessed fall, Hypomagnesemia, Nasal bone fractures, Hyponatremia, Weakness, Elevated d-dimer, Abrasion of nose ED Provider Note CHIEF COMPLAINT: Fall HISTORY OF PRESENTING ILLNESS: This 59-year-old male patient presents to the emergency department via EMS for evaluation after an unwitnessed fall. Per EMS, the patient's found the patient in the bathroom when she woke up this morning. EMS reports that the patient smoked marijuana last evening. He denies any alcohol use or other drug use. Per his , he does not seem to be acting like his usual self. His last known well was when he went to bed last evening. The patient states that he woke up fine, but just felt like his legs were not awake yet and more weak and caused him to fall. He states that his legs feel back to normal at this time. He denies any weakness of his arms or legs currently. He states that it was both legs and not one more than the other. The patient has an abrasion to his nasal bridge, but he does not remember what he hit. He denies loss of consciousness. The patient's pupils are small, but reactive. The patient is alert and oriented and able to answer questions appropriately, but does seem tired and wanting to fall asleep. The patient denies any symptoms currently. He denies neck or back pain. He denies any pain of his head or face. He denies chest pain, SOB, abdominal pain, nausea, or vomiting. He denies any fevers recently. He denies any cough or URI symptoms. He denies any urinary symptoms or problems with his bowel movements. The patient does have a port in place due to his previous cancer treatment, but denies any chemo or radiation currently. The patient denies any blood thinner use. REVIEW OF SYSTEMS: See HPI for pertinent positives and pertinent negatives. ALLERGIES: Tegretol MEDICATIONS: See below PAST MEDICAL HISTORY: See below PHYSICAL EXAM: PRIMARY SURVEY Airway: Intact and patent. Breathing: Trachea midline. Symmetrical chest movement. Breath sounds equal bilaterally. No respiratory distress. Circulation: Skin warm, capillary refill <2 seconds. Disability: PERRLA. Able to move all extremities. SECONDARY SURVEY VITALS: Vitals are noted on the nurse's note and reviewed by myself. GENERAL: The patient appears tired on exam, but is able to answer all questions appropriately and follows commands appropriately and is able to wake up easily. No acute distress, non-diaphoretic. SKIN: The patient has an abrasion to the nasal bridge. No active bleeding. No foreign bodies noted. No lacerations requiring repair. Capillary reflex less than 2 seconds. HEAD: Normocephalic. No scalp tenderness or step-offs felt. EARS: Bilateral external auditory canals clear without tragus tenderness. Bilateral tympanic membranes pearly hurley without erythema or effusion. No mastoid tenderness bilaterally. No hemotympanum. No schreiber sign. EYES: Pupils are small, but equal round and reactive to light and accommodation. Conjunctivae without injection, sclerae without icterus. Extraocular movements intact. No nystagmus. NOSE: Patent without discharge. The patient is tender to palpation over the nasal bridge in the area of the abrasion. No sinus tenderness. No septal hematoma or bleeding. FACE: No facial bone tenderness other than the nasal bridge. Full range of motion of the jaw without tenderness. MOUTH: Mucous membranes moist. Pharynx without erythema or exudate. Uvula midline. Airway patent. Tongue does not deviate. NECK: Supple without nuchal rigidity. Cervical spine is nontender. Full range of motion of the neck without tenderness. HEART: Regular rate and rhythm without murmurs gallops or rubs. LUNGS: Clear to auscultation bilaterally without wheezes, rales or rhonchi. No retractions or accessory muscle use. CHEST: No chest wall tenderness. The patient has a port in place. ABDOMEN: Positive bowel sounds x 4. Normal tympanic percussion. Soft, nontender, without masses or organomegaly. No guarding or rebound tenderness. MUSCULOSKELETAL: No tenderness of the thoracic or lumbar spine. No tenderness with pelvic rocking. Full range of motion without tenderness to palpation in all extremities. Strength 5/5 and equal in the bilateral upper and lower extremities. Peripheral pulses 2+ and equal in the bilateral upper and lower extremities. NEURO: See general exam. Patient was alert and oriented to person place and time. Normal mental status exam other than being tired on my exam. Normal sensation to light and sharp touch. DIFFERENTIAL DIAGNOSIS: Differential diagnosis includes concussion, contusion, fracture, subluxation, dislocation, subdural hematoma, epidural hematoma, intraparenchymal hemorrhage, contusion, ligamentous injury, neurovascular, compartment syndrome, rhabdomyolysis, intra-abdominal injury, splenic rupture, hepatic rupture, rib fractures, cardiac contusion, pneumothorax, hemothorax, cardiac tamponade, intrathoracic injury, neurologic, CVA, TIA, alcohol intoxication, drug ingestion, as well as other pathologies. ED COURSE AND MEDICAL DECISION MAKING: HISTORY FROM INDEPENDENT HISTORIAN: Additional history obtained from EMS and the patient's MEDICATIONS GIVEN: 500 mL normal saline solution bolus. Zofran 4 mg IV. Magnesium 1 g IV. Tetanus booster. MONITOR: Continuous secured entrance monitor: Order was placed for continuous secured entrance monitor. Patient was placed on the secured entrance monitor and continuous pulse ox. Patient was noted to be in normal sinus rhythm at an initial rate of 80 bpm per my interpretation. EKG: EKG was interpreted by myself as normal sinus rhythm at 75 bpm with no acute ST or T wave changes. INTERPRETATION OF LABS: I interpreted the labs with full lab results as below in the lab section of this note. Laboratory results pertinent to the emergent complaint are discussed in the MDM section below. The patient was advised to follow up with their PCP and/or specialist(s) for further outpatient monitoring and management of any abnormal results. INTERPRETATION OF IMAGING: Imaging studies were interpreted by myself and read by radiology as per the imaging section of this note. The patient was advised to follow up with their PCP and/or specialist(s) for further outpatient management of any non-emergent abnormal findings. Chest x-ray negative for acute abnormalities. He does have chronic right sided rib fractures as well as a right IJ [id number]-h-[id number] catheter. CT scan of the head without contrast showed no acute intracranial abnormality. CT scan of the face without contrast showed comminuted bilateral nasal bone fractures. CT scan of the cervical spine without contrast was negative for acute fracture or subluxation. CTA of the head and neck with IV contrast shows no acute abnormalities. CTA of the chest with IV contrast shows no evidence for PE, pneumonia, pneumothorax, or hemothorax. There is cardiomegaly. Small hiatal hernia with moderately dilated esophagus. No acute traumatic findings. CONSULTATIONS: On-call hospitalist MDM SUMMARY: I examined the patient. The patient had an unwitnessed fall this morning while getting out of bed. The patient's states that she found him in the bathroom and he seemed to be acting weird. The patient's states that he has a history of chronic alcohol use, but the patient states that he does not believe he had alcohol for couple days. The patient's states that he does take morphine as needed, but she controls this medication for him and he has not had any in the past couple days. The patient denies any other drug use. The patient states that when he got out of bed his legs felt like they were still asleep and weak which caused him to fall. However, he states that that sensation has resolved. He denies any current symptoms other than an abrasion to the nasal bridge. No evidence for laceration. His last tetanus shot was in 2010 and he was given a tetanus booster. No tenderness to palpation on exam other than the nasal bridge. An IV lock was placed and labs were drawn. The patient was given 500 mL normal saline solution bolus. He declined any medication for pain while in the emergency department. He was given Zofran 4 mg IV for development of nausea. He was given a tetanus booster. His magnesium was low and he was given magnesium 1 g IV. The patient's abrasion was cleaned and dressed by nursing staff. White blood cell count elevated at 17.43. Hemoglobin stable at 10.5. Platelet count normal at 232. PT elevated 12.1, but INR normal at 1.1. D-dimer is elevated at 1050. Sodium low at 126 and calcium low at 8.0, but CMP otherwise without acute concerning abnormalities. Magnesium low at 1.5. CPK slightly elevated at 235. Urinalysis was normal. Urine drug screen positive for opiates and marijuana. Medical alcohol level 36.1. Chest x-ray negative for acute abnormalities. He does have chronic right sided rib fractures as well as a right IJ Kjihzl-i-Srjz catheter. CT scan of the head without contrast showed no acute intracranial abnormality. CT scan of the face without contrast showed comminuted bilateral nasal bone fractures. CT scan of the cervical spine without contrast was negative for acute fracture or subluxation. CTA of the head and neck with IV contrast shows no acute abnormalities. CTA of the chest with IV contrast shows no evidence for PE, pneumonia, pneumothorax, or hemothorax. There is cardiomegaly. Small hiatal hernia with moderately dilated esophagus. No acute traumatic findings. I had a meaningful discussion about this patient with Dr. Argueta who agrees with my assessment and the treatment plan. Due to the patient's change in mental status per his along with the fall, hyponatremia, and leukocytosis, it is recommended the patient be admitted for further evaluation and treatment. I spoke with the on-call hospitalist who agreed to admit the patient for further evaluation and treatment. Please refer to their dictation for further details. The patient's care was transferred in stable condition. DIAGNOSIS: Unwitnessed fall Nasal bone fractures Abrasion of nose Weakness Hyponatremia Hypomagnesemia Elevated D-dimer Past Med/Surg History Problem List (Updated 04/11/25 @ 16:09 by Della Gray PA-C) Abrasion of nose (Acute) Elevated d-dimer (Acute) Weakness (Acute) Hyponatremia (Acute) Nasal bone fractures (Acute) Unwitnessed fall (Acute) Nausea & vomiting (Acute) Diverticulitis (Acute) Abnormal abdominal CT scan (Acute) Hypomagnesemia (Acute) Vomiting (Acute) Diffuse abdominal pain (Acute) Abdominal pain (Acute) Pancreatitis (Acute) Intractable nausea and vomiting (Acute) Medical History Acute diverticulitis Intractable nausea and vomiting History of esophageal cancer Severe malnutrition Anemia Esophageal cancer diagnosed 04/2023--chemo/ERCP 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 Edmonds/[facility] [place] History of recent blood transfusion 05/02/23 @ [facility] Enteropathogenic Escherichia coli infection Hyponatremia Trigeminal neuralgia Hypomagnesemia Vomiting and diarrhea Iron deficiency received blood transfusion 05/02/23 @ [facility] Surgical History History of colonoscopy History of esophagogastroduodenoscopy (EGD) History of tooth extraction partial upper and lower denture History of ERCP 04/2023 @ [facility] [place] History of vascular access device A port--power port in placed on right side of chest Family History Father Stroke Social History Smoking Status: Never smoker Tobacco Type: Cigarettes Second Hand Exposure: No; Do You Dip or Chew Tobacco: No; Hx Alcohol Use: Yes Alcohol type: other Hx Substance Use: No Preferred Language: Wolof Communication Ability: Effective 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 Required: No Beliefs That Will Affect Care: None marital status: Current Living Situation: Spouse Feels Safe at Home: Yes Assistive Devices: Cane Allergies Allergies Allergy/AdvReac Type Severity Reaction Status Date / Time carbamazepine [From Tegretol] Allergy Mild Rash Verified 01/18/25 16:03 Home Meds Home Medications Medication Instructions Recorded Confirmed escitalopram oxalate 10 mg tablet 10 mg PO QAM 12/22/23 04/11/25 olanzapine 5 mg tablet (Zyprexa) 5 mg PO HS 12/22/23 04/11/25 cholecalciferol (vitamin D3) 50 50 mcg PO DAILY 02/13/24 04/11/25 mcg (2,000 unit) tablet (Vitamin D3) cyanocobalamin (vitamin B-12) 500 500 mcg PO DAILYBD 02/13/24 04/11/25 mcg tablet (Vitamin B-12) aprepitant 80 mg capsule 80 mg PO DAILY PRN Nausea And 04/13/24 04/11/25 Vomiting folic acid 1 mg tablet 1 mg PO QDL 04/13/24 04/11/25 lorazepam 0.5 mg tablet 0.5 mg PO Q6H PRN Anxiety 04/13/24 04/11/25 morphine concentrate 100 mg/5 mL 10 mg PO Q4H PRN Pain 04/13/24 04/11/25 (20 mg/mL) oral solution prochlorperazine maleate 10 mg 10 mg PO Q6H PRN Nausea And 04/13/24 04/11/25 tablet Vomiting ferrous sulfate 325 mg (65 mg 325 mg PO [id number] 11/06/24 04/11/25 iron) tablet ondansetron HCl 8 mg tablet 8 mg PO Q8H PRN Nausea And Vomiting 11/06/24 04/11/25 dicyclomine 10 mg capsule 10 mg PO QID PRN abd pain 01/18/25 04/11/25 magnesium 250 mg tablet 250 mg PO [id number] 01/18/25 04/11/25 pantoprazole 40 mg tablet,delayed 40 mg PO QAM 01/18/25 04/11/25 release Results & Data (ED) Vital Signs Vital Signs - 24 hr 04/11/25 08:37 04/11/25 08:37 04/11/25 08:59 Temperature 36.4 C L Temperature Source Oral Pulse Rate 73 83 Pulse Rate [Apical] 73 Respiratory Rate 10 L 10 L Blood Pressure 143/96 H Blood Pressure [Left Arm] 143/96 H Blood Pressure Mean 111 Blood Pressure Mean [Left Arm] 111 Blood Pressure Position Semi-fowlers Blood Pressure Position [Left Arm] Semi-fowlers Pulse Oximetry 100 100 Oxygen Delivery Method Room Air Room Air Sepsis Recent Fever Within 48 Hours No Sepsis New/Unexplained Change in Mental Status Yes Sepsis Action Taken by Nursing No Action Required 04/11/25 09:37 04/11/25 10:37 04/11/25 11:37 Temperature Temperature Source Pulse Rate Pulse Rate [Apical] 73 66 71 Respiratory Rate 10 L 14 10 L Blood Pressure Blood Pressure [Left Arm] 149/111 H 125/93 124/87 Blood Pressure Mean Blood Pressure Mean [Left Arm] 123 103 99 Blood Pressure Position Blood Pressure Position [Left Arm] Semi-fowlers Semi-fowlers Semi-fowlers Pulse Oximetry 98 99 98 Oxygen Delivery Method Room Air Room Air Room Air Sepsis Recent Fever Within 48 Hours Sepsis New/Unexplained Change in Mental Status Sepsis Action Taken by Nursing 04/11/25 12:37 04/11/25 12:48 Temperature Temperature Source Pulse Rate 67 Pulse Rate [Apical] 67 Respiratory Rate 14 Blood Pressure Blood Pressure [Left Arm] 120/95 Blood Pressure Mean Blood Pressure Mean [Left Arm] 103 Blood Pressure Position Blood Pressure Position [Left Arm] Semi-fowlers Pulse Oximetry 100 Oxygen Delivery Method Room Air Sepsis Recent Fever Within 48 Hours Sepsis New/Unexplained Change in Mental Status Sepsis Action Taken by Nursing Laboratory Data 04/11/25 08:56 04/11/25 08:56 Lab Results 04/11/25 04/11/25 04/11/25 Range/Units 08:56 09:06 09:47 WBC 17.43 H (4.8-10.8) K/ul RBC 3.43 L (4.70-6.10) M/uL Hgb 10.5 L (14.0-18.0) g/dl Hct 29.9 L (42.0-52.0) % MCV 87.2 (80.0-100.0) fL MCH 30.6 (25.0-34.0) pg MCHC 35.1 (32.0-36.0) g/dL RDW Std Deviation 42.5 (36.4-46.3) fL RDW Coeff of Stone 13.4 (11.5-14.5) % Plt Count 232 (130-400) K/uL MPV 10.0 (9.4-12.4) fL Immature Gran % (Auto) 0.5 % Neut % (Auto) 85.8 % Lymph % (Auto) 7.0 % [place] % (Auto) 6.3 % Eos % (Auto) 0.2 % Baso % (Auto) 0.2 % Neut # (Auto) 14.97 H (1.40-6.50) K/uL Lymph # (Auto) 1.22 (1.20-3.40) K/uL [place] # (Auto) 1.09 H (0.11-0.59) K/uL Eos # (Auto) 0.03 (0.00-0.50) K/uL Baso # (Auto) 0.04 (0.00-0.20) K/uL Immature Gran # (Auto) 0.08 (0.01-0.20) K/uL PT 12.1 H (9.0-12.0) Seconds INR 1.1 (0.9-1.1) APTT 24 (21-31) Seconds PTT Ratio 0.9 D-Dimer 1050 H* (0-500) ug/L FEU Sodium 126 L (136-145) mmol/L Potassium 4.3 (3.5-5.1) mmol/L Chloride 94 L (98-107) mmol/L Carbon Dioxide 23 (21-32) mmol/L Anion Gap 9 (3-11) BUN 6 (6-23) mg/dl Creatinine 0.64 (0.6-1.4) mg/dl Est Cr Clr Drug Dosing 110.9 ml/min eGFR 108.38 BUN/Creatinine Ratio 9.4 L (10-20) Glucose 89 (70-99(Fasting)) mg/dl Osmolality 266 L (280-300) mOsm/kg Calcium 8.0 L (8.6-10.3) mg/dl Magnesium 1.5 L (1.7-2.4) mg/dl Total Bilirubin 0.3 (0.2-1.0) mg/dl AST 19 (13-39) U/L ALT 14 (7-52) U/L Alkaline Phosphatase 52 (34-104) U/L Total Creatine Kinase 235 H (30-223) U/L Troponin I High Sens 10.7 (0-20) pg/ml Total Protein 5.9 L (6.0-8.3) gm/dl Albumin 3.7 (3.4-5.0) gm/dl Globulin 2.2 L (2.5-4.0) gm/dl Albumin/Globulin Ratio 1.7 (0.9-2) Lipase 74 (11-82) U/L Urine Color Yellow Urine Appearance Clear (Clear) Urine pH 6.0 (4.5-7.5) Ur Specific [place] 1.012 (1.000-1.030) Urine Protein Negative (Negative) Urine Glucose (UA) Negative (Negative) Urine Ketones Negative (Negative) Urine Blood Negative (Negative) Urine Nitrite Negative (Negative) Urine Bilirubin Negative (Negative) Urine Urobilinogen Negative (Negative) Ur Leukocyte Esterase Negative (Negative) Urine Comment Urine Opiates Screen Pos H (Neg) Ur Methadone, Qual Neg (Neg) Urine Fentanyl Screen Neg (Neg) Urine Barbiturates Neg (Neg) Ur Phencyclidine (PCP) Neg (Neg) U Amphetamin/Meth Scrn Neg (Neg) MDMA (Ecstasy) Screen Neg (Neg) U Benzodiazepines Scrn Neg (Neg) Ur Cocaine Metabolite Neg (Neg) U Marijuana (THC) Screen Pos H (Neg) Ethyl Alcohol mg/dL 36.1 H (<10.0) mg/dl Blood Type A Positive Antibody Screen NEGATIVE Administered Medications Thiamine HCl 100 mg/ Syringe 10 mls @ 2 mls/min IV QAM [facility] Stop: 05/11/25 14:29 Last Admin: 04/11/25 15:25 Dose: 2 mls/min Documented By: mls Folic Acid 1 mg/ Syringe 10 mls @ 5 mls/min IV QAM [facility] Stop: 05/11/25 14:29 Last Admin: 04/11/25 15:22 Dose: 5 mls/min Documented By: mls Sodium Chloride (Nss) 1,000 mls @ 60 mls/hr IV .[id number] [facility] Stop: 04/14/25 14:29 Last Admin: 04/11/25 15:20 Dose: 60 mls/hr Documented By: [email or web address] Discontinued Medications Diphtheria/Pertussis/Tetanus Vacc (Diphther/Tetan/Pertus Vaccine (Tdap, Adol/Adult) 0.5ml) 0.5 ml IM .ONCE ONE Stop: 04/11/25 11:38 Last Admin: 04/11/25 11:56 Dose: 0.5 ml Documented By: CEF Sodium Chloride (Nss) 500 mls @ 999 mls/hr IV .Q31M ONE Stop: 04/11/25 09:22 Last Infusion: 04/11/25 09:50 Dose: Infused Documented By: Admin: 04/11/25 09:12 Dose: 999 mls/hr Documented By: CEF Magnesium Sulfate/Dextrose (Magnesium Sulfate / D5w) 1 gm in 100 mls @ 100 mls/hr IV NOW STA Stop: 04/11/25 12:54 Last Infusion: 04/11/25 13:11 Dose: Infused Documented By: Admin: 04/11/25 12:10 Dose: 100 mls/hr Documented By: CEF Magnesium Sulfate/Dextrose (Magnesium Sulfate / D5w) 1 gm in 100 mls @ 100 mls/hr IV Q1H GREG Stop: 04/11/25 15:31 Last Admin: 04/11/25 15:02 Dose: 100 mls/hr Documented By: Infusion: 04/11/25 15:02 Dose: Infused Documented By: Admin: 04/11/25 14:13 Dose: 100 mls/hr Documented By: JOSELIN Ioversol (Optiray 320 125ml) 112 ml IV ONCE ONE Stop: 04/11/25 11:35 Last Admin: 04/11/25 11:34 Dose: 112 ml Documented By: SAMANTHA Ondansetron HCl (Ondansetron Inj 2 Mg/Ml 2 Ml Vial) 4 mg IV NOW STA Stop: 04/11/25 11:26 Last Admin: 04/11/25 11:27 Dose: 4 mg Documented By: LOKI Imaging Data Radiologist's Impression: Cervical Spine CT 04/11/25 08:52 CT SCAN OF THE CERVICAL SPINE CLINICAL HISTORY: Trauma. COMPARISON STUDY: None TECHNIQUE: CT scan of the cervical spine is performed from the skull base to the upper thoracic spine. Images are reviewed in the axial, sagittal, and coronal planes. IV contrast was not administered for this examination. A dose lowering technique was utilized adhering to the principles of ALARA. CT DOSE: 2022.87 mGy.cm FINDINGS: Skeletal structures: There is no evidence of fracture or subluxation involving the cervical spine. Vertebral body height and alignment are maintained. The odontoid process and lateral masses are intact. The atlantoaxial articulation is preserved. The spinous processes appear intact. There is moderate multilevel disc space narrowing, endplate osteophytosis and facet arthrosis within the cervical spine. Soft tissues: The prevertebral and paraspinous soft tissues are within normal limits. Calvarium: The visualized calvarium at the skull base appears intact. Brain parenchyma: Partially visualized brain parenchyma at the skull base is within normal limits. Lung apices: Clear as visualized. IMPRESSION: No acute cervical spine fracture or subluxation. ACT 112: Negative or not required by law. Electronically signed by: Mele Umanzor M.D. 04/11/2025 9:52 AM Chest X-Ray 04/11/25 08:52 XR chest 1V portable HISTORY: 59 years-old Male Trauma CT chest trauma COMPARISON: 01/30/2025 TECHNIQUE: AP view of the chest FINDINGS: Cardiomediastinal and hilar silhouettes are within normal limits. Right IJ [id number] catheter distal tip terminates in the expected location of the inferior SVC. No pneumothorax, pleural effusion, airspace consolidation or pulmonary edema. Chronic right-sided rib fractures. No acute rib fracture identified. IMPRESSION: No acute process. ACT 112: Negative or not required by law. The above report was generated using voice recognition software. It may contain grammatical, syntax or spelling errors. Electronically signed by: Lenny Day M.D. 04/11/2025 9:[address] 04/11/25 08:52 CT SCAN OF THE FACIAL BONES WITHOUT IV CONTRAST CLINICAL HISTORY: Trauma. COMPARISON STUDY: No priors TECHNIQUE: High-resolution CT scan of the facial bones is performed. Images are reviewed in the axial, sagittal, and coronal planes. IV contrast was not administered for this examination. A dose lowering technique was utilized adhering to the principles of ALARA. FINDINGS: The skeletal structures are osteopenic. There are comminuted bilateral nasal bone fractures with mildly displaced fragments and overlying soft tissue edema. No additional facial bone fracture is seen. The bony nasal septum appears intact noting rightward deviation. The bony orbits are intact and the orbital contents are within normal limits. The zygomatic arches and pterygoid plates are preserved. There is aries bullosa of the middle nasal turbinates. The maxilla and mandible are intact. There are scattered dental caries. There are no layering blood products within the paranasal sinuses. A 2.5 cm retention cyst is noted in the right maxillary antrum. Trace mucosal thickening is seen in the left maxillary sinus. Remaining paranasal sinuses are clear. The mastoid air cells are well pneumatized. Cerumen is noted in the external auditory canals. The visualized calvarium and upper cervical spine are maintained. Partially imaged brain parenchyma is within normal limits. Atherosclerotic calcification is noted in the carotid bulbs. IMPRESSION: Comminuted bilateral nasal bone fractures as above. ACT 112: Negative or not required by law. Electronically signed by: Brian Love M.D. 04/11/2025 10:[address] 04/11/25 08:52 CT head/brain wo con CLINICAL HISTORY: 59 years-old Male with Trauma. Acute head trauma TECHNIQUE: Multiple axial CT images of the head were obtained without contrast. A dose lowering technique was utilized adhering to the principles of ALARA. COMPARISON: None. FINDINGS: No acute intracranial hemorrhage, midline shift, intracranial mass, hydrocephalus, territorial ischemia or abnormal extra-axial collection. 1.2 cm hypodensity within the right lentiform nucleus on image 20 series 2 suggestive of a chronic lacunar infarct. Probable mild chronic microvascular ischemic disease. The calvarium is intact. 2.3 cm right maxillary sinus polyp. The mastoid air cells are clear. Angulated left nasal bone fractures, likely chronic. IMPRESSION: 1. No acute intracranial abnormality or calvarial fracture. 2. Angulated left nasal bone fracture, likely chronic. ACT 112: Negative or not required by law. The above report was generated using voice recognition software. It may contain grammatical, syntax or spelling errors. Electronically signed by: Lenny Day M.D. 04/11/2025 9:50 AM Chest CTA 04/11/25 10:13 CT ANGIOGRAM OF THE CHEST CLINICAL HISTORY: Trauma. Altered mental status. COMPARISON STUDY: Chest radiograph January 30, 2025 and chest radiograph performed earlier today. TECHNIQUE: Following the IV administration of 112 cc of Optiray 320, CT angiogram of the chest was performed from the upper abdomen to the thoracic inlet utilizing the pulmonary embolus protocol. Images are reviewed in the axial, sagittal, and coronal planes. 3-D MIPS images are created and assessed. IV contrast was administered without complication. A dose lowering technique was utilized adhering to the principles of ALARA. CT DOSE: 958.56 mGy.cm FINDINGS: No pulmonary emboli are identified. There is no thoracic aortic dissection. Moderate cardiomegaly is noted. Postoperative findings within the stomach are noted. There is a small hiatal hernia. There is moderate dilatation of the esophagus. No pneumothorax or pleural effusion is identified. Due to difficulty positioning, portions of the left chest wall are not included on this exam. No rib fractures are identified within visualized portions of the chest. There are no thoracic spine fractures. Subpleural ground glass opacities favor atelectasis. There are no suspicious pulmonary nodules. IMPRESSION: 1. No pulmonary emboli identified. 2. Cardiomegaly. 3. Small hiatal hernia with moderately dilated esophagus. 4. No acute traumatic findings within the chest although portions of the left chest wall not included due to difficulty positioning. ACT 112: Negative or not required by law. Electronically signed by: Mele Umanzor M.D. 04/11/2025 12:25 PM Head CTA 04/11/25 10:13 CT ANGIOGRAM OF THE BRAIN CLINICAL HISTORY: Change in mental status. Weakness. COMPARISON STUDY: Unenhanced CT of the brain performed earlier the same day at 04/11/2025 TECHNIQUE: Following the IV administration of 112 cc of Optiray 320, CT angiogram of the brain was performed from the skull base to the vertex. Images are reviewed in the axial, sagittal, and coronal planes. 3-D MIPS images are created and assessed. IV contrast was administered without complication. A dose lowering technique was utilized adhering to the principles of ALARA. FINDINGS: Brain parenchyma: There is age-related involutional change noting mild subcortical and periventricular microangiopathic disease. There is no evidence of hemorrhage or mass effect noting angiographic phase technique. There is no evidence of enhancing mass lesion on the angiogram phase images. No extra-axial fluid collection is seen. Hurley-white matter differentiation is preserved. Ventricles, sulci, and cisterns: Normal in configuration. CT angiogram of the brain: There is atherosclerotic calcification of the carotid bulbs. The internal carotid arteries at the skull base are patent, as are the anterior and middle cerebral arteries. The vertebrobasilar system and posterior cerebral arteries are patent. The right vertebral artery is dominant. There is no aneurysm, high-grade stenosis, or focal vessel cutoff identified throughout the intracranial circulation. Dural sinuses: Clear as visualized. Orbits: The bony orbits are intact. The orbital contents are normal as visualized. Sinuses and mastoids: A 2.5 cm retention cyst is seen in the right maxillary antrum. The remaining paranasal sinuses are clear. The mastoid air cells are well pneumatized. Cerumen is noted in the external auditory canals. Calvarium: The skeletal structures are osteopenic. The calvarium appears intact. There are comminuted bilateral nasal bone fractures. IMPRESSION: 1. There is no evidence of hemorrhage or mass effect noting angiographic phase technique. 2. Unremarkable CT angiogram of the brain. 3. Bilateral nasal bone fractures are again noted. ACT 112: Negative or not required by law. Electronically signed by: Brian Love M.D. 04/11/2025 11:58 AM Neck CTA 04/11/25 10:13 CT angio neck with con CLINICAL HISTORY: 59 years-old Male with Change in mental status, weakness, fall. Acute weakness with neck pain status post fall COMPARISON STUDY: CTA head of same day, CT cervical spine of same day TECHNIQUE: Following the IV administration of 112 of Optiray, CT angiogram of the neck was performed from the aortic arch to the skull base. Images are reviewed in the axial, sagittal, and coronal planes. 3-D MIPS images are created and assessed. IV contrast was administered without complication. All measurements were calculated based on NASCET criteria. A dose lowering technique was utilized adhering to the principles of ALARA. FINDINGS: Three-vessel morphology of the thoracic aortic arch. Widely patent common carotid arteries. Mild atherosclerosis of the carotid bulbs without significant stenosis. Patent and codominant vertebral arteries. No aneurysm, dissection, high-grade stenosis or arterial occlusion. Lung apices appear clear. Mild gaseous distention of the upper esophagus. Subcentimeter hypodense right-sided thyroid nodule. Soft tissues are within normal limits. Multilevel degenerative changes of the cervical spine. Right maxillary sinus polyp. IMPRESSION:Unremarkable CTA of the neck. ACT 112: Negative or not required by law. The above report was generated using voice recognition software. It may contain grammatical, syntax or spelling errors. Electronically signed by: Lenny Day M.D. 04/11/2025 12:01 PM Discharge Plan Visit Data Chief Complaint: Fall Stated Complaint: FALL, ED Provider: Cherie Argueta ED Midlevel Provider: Della Gray Discharge Problem: Unwitnessed fall, Hypomagnesemia, Nasal bone fractures, Hyponatremia, Weakness, Elevated d-dimer, Abrasion of nose Patient Disposition: Admitted As Inpatient Condition: Fair Discharge Problem: Nasal bone fractures Qualifiers: Encounter type: initial encounter Fracture type: closed Qualified Code(s): S 02.2XXA - Fracture of nasal bones, initial encounter for closed fracture Abrasion of nose Qualifiers: Encounter type: initial encounter Qualified Code(s): S00.31XA - Abrasion of nose, initial encounter
[2025-04-11] MEDS: SODIUM CHLORIDE 0.9% 500 ML IV ONE (09:12)
[2025-04-11 09:17] LABS: Hematocrit (blood only) 29.9 % (42.0-52.0); Hemoglobin 10.5 g/dl (14.0-18.0); Immature Granulocytes # (auto) 0.08 K/uL (0.01-0.20); Immature Granulocytes % (auto) 0.5 %; Mean Corpuscular Hemoglobin 30.6 pg (25.0-34.0); Mean Corpuscular Volume 87.2 fL (80.0-100.0); Platelet Count 232 K/uL (130-400); RDW Standard Deviation 42.5 fL (36.4-46.3); Red Blood Count 3.43 M/uL (4.70-6.10); White Blood Count 17.43 K/ul (4.8-10.8)
[2025-04-11 09:36] LABS: Alanine Aminotransferase 14.0 U/L (7-52); Albumin Globulin Ratio 1.7 (0.9-2); Alkaline Phosphatase 52.0 U/L (34-104); Anion Gap 9.0 (3-11); Bilirubin,Total 0.3 mg/dl (0.2-1.0); Blood Urea Nitrogen 6.0 mg/dl (6-23); Calcium 8.0 mg/dl (8.6-10.3); Carbon Dioxide 23.0 mmol/L (21-32); Chloride 94.0 mmol/L (98-107); Creatinine Clr Calc Pharmacy 110.9 ml/min; Globulin 2.2 gm/dl (2.5-4.0); Glucose 89.0 mg/dl (70-99(Fasting)); Lipase 74.0 U/L (11-82); Magnesium 1.5 mg/dl (1.7-2.4); Potassium 4.3 mmol/L (3.5-5.1); Sodium 126.0 mmol/L (136-145); Total Protein 5.9 gm/dl (6.0-8.3)
--- NOTE | 2025-04-11 09:39 | XRay Report ---
XR chest 1V portable HISTORY: 59 years-old Male Trauma CT chest trauma COMPARISON: 01/30/2025 TECHNIQUE: AP view of the chest FINDINGS: Cardiomediastinal and hilar silhouettes are within normal limits. Right IJ Cwrpeg-v-Huwd catheter dis chuck tip terminates in the expected location of the inferior SVC. No pneumothorax, pleural effusion, a irspace consolidation or pulmonary edema. Chronic right-sided rib fractures. No acute rib fracture id entified. IMPRESSION: No acute process. ACT 112: Negative or not required by law. The above report was generated using voice recognition software. It may contain grammatical, syntax o r spelling errors. Electronically signed by: Lenny Day M.D. 04/11/2025 9:37 AM
[2025-04-11 09:44] LABS: INR 1.1 (0.9-1.1); Partial Thromboplastin Time 24 Seconds (21-31); Prothrombin Time 12.1 Seconds (9.0-12.0)
--- NOTE | 2025-04-11 09:51 | CT Scan Report ---
CT head/brain wo con CLINICAL HISTORY: 59 years-old Male with Trauma. Acute head trauma TECHNIQUE: Multiple axial CT images of the head were obtained without contrast. A dose lowering tech nique was utilized adhering to the principles of ALARA. COMPARISON: None. FINDINGS: No acute intracranial hemorrhage, midline shift, intracranial mass, hydrocephalus, territorial ischem ia or abnormal extra-axial collection. 1.2 cm hypodensity within the right lentiform nucleus on image 20 series 2 suggestive of a chronic lacunar infarct. Probable mild chronic microvascular ischemic di sease. The calvarium is intact. 2.3 cm right maxillary sinus polyp. The mastoid air cells are clear. Angula ej left nasal bone fractures, likely chronic. IMPRESSION: 1. No acute intracranial abnormality or calvarial fracture. 2. Angulated left nasal bone fracture, likely chronic. ACT 112: Negative or not required by law. The above report was generated using voice recognition software. It may contain grammatical, syntax o r spelling errors. Electronically signed by: Lenny Day M.D. 04/11/2025 9:50 AM
--- NOTE | 2025-04-11 09:54 | CT Scan Report ---
CT SCAN OF THE CERVICAL SPINE CLINICAL HISTORY: Trauma. COMPARISON STUDY: None TECHNIQUE: CT scan of the cervical spine is performed from the skull base to the upper thoracic spine . Images are reviewed in the axial, sagittal, and coronal planes. IV contrast was not administered fo r this examination. A dose lowering technique was utilized adhering to the principles of ALARA. CT DOSE: 2022.87 mGy.cm FINDINGS: Skeletal structures: There is no evidence of fracture or subluxation involving the cervical spine. Ve rtebral body height and alignment are maintained. The odontoid process and lateral masses are intact . The atlantoaxial articulation is preserved. The spinous processes appear intact. There is moderate multilevel disc space narrowing, endplate osteophytosis and facet arthrosis within the cervical spine . Soft tissues: The prevertebral and paraspinous soft tissues are within normal limits. Calvarium: The visualized calvarium at the skull base appears intact. Brain parenchyma: Partially visualized brain parenchyma at the skull base is within normal limits. Lung apices: Clear as visualized. IMPRESSION: No acute cervical spine fracture or subluxation. ACT 112: Negative or not required by law. Electronically signed by: Mele Umanzor M.D. 04/11/2025 9:52 AM
[2025-04-11 10:02] LABS: Creatine Kinase 235.0 U/L (30-223)
--- NOTE | 2025-04-11 10:05 | CT Scan Report ---
CT SCAN OF THE FACIAL BONES WITHOUT IV CONTRAST CLINICAL HISTORY: Trauma. COMPARISON STUDY: No priors TECHNIQUE: High-resolution CT scan of the facial bones is performed. Images are reviewed in the axia l, sagittal, and coronal planes. IV contrast was not administered for this examination. A dose lower ing technique was utilized adhering to the principles of ALARA. FINDINGS: The skeletal structures are osteopenic. There are comminuted bilateral nasal bone fractures with mildly displaced fragments and overlying soft tissue edema. No additional facial bone fracture is seen. The bony nasal septum appears intact noting rightward deviation. The bony orbits are intact and the orbital contents are within normal limits. The zygomatic arches and pterygoid plates are pres erved. There is aries bullosa of the middle nasal turbinates. The maxilla and mandible are intact. T here are scattered dental caries. There are no layering blood products within the paranasal sinuses. A 2.5 cm retention cyst is noted in the right maxillary antrum. Trace mucosal thickening is seen in t he left maxillary sinus. Remaining paranasal sinuses are clear. The mastoid air cells are well pneuma tized. Cerumen is noted in the external auditory canals. The visualized calvarium and upper cervical spine are maintained. Partially imaged brain parenchyma is within normal limits. Atherosclerotic calc ification is noted in the carotid bulbs. IMPRESSION: Comminuted bilateral nasal bone fractures as above. ACT 112: Negative or not required by law. Electronically signed by: Brian Love M.D. 04/11/2025 10:02 AM
[2025-04-11 10:18] LABS: Appearance Urine Clear (Clear); Glucose Urine UA Negative (Negative)
[2025-04-11 10:46] LABS: Amphetamines+Metham, Urine Neg (Neg); MDMA (Ecstacy), Urine Neg (Neg); Marijuana, Urine Pos (Neg)
[2025-04-11] MEDS: ONDANSETRON INJ 2 MG/ML 2 ML VIAL IV STA (11:27)
[2025-04-11] MEDS: OPTIRAY 320 125ml IV ONE (11:34)
[2025-04-11] MEDS: DIPHTHER/TETAN/PERTUS Vaccine (Tdap, Adol/Adult) 0.5mL IM ONE (11:56)
--- NOTE | 2025-04-11 11:59 | CT Scan Report ---
CT ANGIOGRAM OF THE BRAIN CLINICAL HISTORY: Change in mental status. Weakness. COMPARISON STUDY: Unenhanced CT of the brain performed earlier the same day at 04/11/2025 TECHNIQUE: Following the IV administration of 112 cc of Optiray 320, CT angiogram of the brain was pe rformed from the skull base to the vertex. Images are reviewed in the axial, sagittal, and coronal pl anes. 3-D MIPS images are created and assessed. IV contrast was administered without complication. A dose lowering technique was utilized adhering to the principles of ALARA. FINDINGS: Brain parenchyma: There is age-related involutional change noting mild subcortical and periventricula r microangiopathic disease. There is no evidence of hemorrhage or mass effect noting angiographic pha se technique. There is no evidence of enhancing mass lesion on the angiogram phase images. No extra-a xial fluid collection is seen. Hurley-white matter differentiation is preserved. Ventricles, sulci, and cisterns: Normal in configuration. CT angiogram of the brain: There is atherosclerotic calcification of the carotid bulbs. The internal carotid arteries at the skull base are patent, as are the anterior and middle cerebral arteries. The vertebrobasilar system and posterior cerebral arteries are patent. The right vertebral artery is triston nant. There is no aneurysm, high-grade stenosis, or focal vessel cutoff identified throughout the int racranial circulation. Dural sinuses: Clear as visualized. Orbits: The bony orbits are intact. The orbital contents are normal as visualized. Sinuses and mastoids: A 2.5 cm retention cyst is seen in the right maxillary antrum. The remaining pa ranasal sinuses are clear. The mastoid air cells are well pneumatized. Cerumen is noted in the drill foreman al auditory canals. Calvarium: The skeletal structures are osteopenic. The calvarium appears intact. There are comminuted bilateral nasal bone fractures. IMPRESSION: 1. There is no evidence of hemorrhage or mass effect noting angiographic phase technique. 2. Unremarkable CT angiogram of the brain. 3. Bilateral nasal bone fractures are again noted. ACT 112: Negative or not required by law. Electronically signed by: Brian Love M.D. 04/11/2025 11:58 AM
--- NOTE | 2025-04-11 12:03 | CT Scan Report ---
CT angio neck with con CLINICAL HISTORY: 59 years-old Male with Change in mental status, weakness, fall. Acute weakness w ith neck pain status post fall COMPARISON STUDY: CTA head of same day, CT cervical spine of same day TECHNIQUE: Following the IV administration of 112 of Optiray, CT angiogram of the neck was performed from the aortic arch to the skull base. Images are reviewed in the axial, sagittal, and coronal plane s. 3-D MIPS images are created and assessed. IV contrast was administered without complication. All m easurements were calculated based on NASCET criteria. A dose lowering technique was utilized adherin g to the principles of ALARA. FINDINGS: Three-vessel morphology of the thoracic aortic arch. Widely patent common carotid arteries. Mild athe rosclerosis of the carotid bulbs without significant stenosis. Patent and codominant vertebral arteri es. No aneurysm, dissection, high-grade stenosis or arterial occlusion. Lung apices appear clear. Mild gaseous distention of the upper esophagus. Subcentimeter hypodense rig ht-sided thyroid nodule. Soft tissues are within normal limits. Multilevel degenerative changes of th e cervical spine. Right maxillary sinus polyp. IMPRESSION:Unremarkable CTA of the neck. ACT 112: Negative or not required by law. The above report was generated using voice recognition software. It may contain grammatical, syntax o r spelling errors. Electronically signed by: Lenny Day M.D. 04/11/2025 12:01 PM
[2025-04-11] MEDS: MAGNESIUM SULFATE / D5W 1 GM/100 ML BAG IV STA (12:10)
--- NOTE | 2025-04-11 12:26 | CT Scan Report ---
CT ANGIOGRAM OF THE CHEST CLINICAL HISTORY: Trauma. Altered mental status. COMPARISON STUDY: Chest radiograph January 30, 2025 and chest radiograph performed earlier today. TECHNIQUE: Following the IV administration of 112 cc of Optiray 320, CT angiogram of the chest was pe rformed from the upper abdomen to the thoracic inlet utilizing the pulmonary embolus protocol. Images are reviewed in the axial, sagittal, and coronal planes. 3-D MIPS images are created and assessed. I V contrast was administered without complication. A dose lowering technique was utilized adhering to the principles of ALARA. CT DOSE: 958.56 mGy.cm FINDINGS: No pulmonary emboli are identified. There is no thoracic aortic dissection. Moderate cardio megaly is noted. Postoperative findings within the stomach are noted. There is a small hiatal hernia. There is moderate dilatation of the esophagus. No pneumothorax or pleural effusion is identified. Du e to difficulty positioning, portions of the left chest wall are not included on this exam. No rib fr actures are identified within visualized portions of the chest. There are no thoracic spine fractures . Subpleural ground glass opacities favor atelectasis. There are no suspicious pulmonary nodules. IMPRESSION: 1. No pulmonary emboli identified. 2. Cardiomegaly. 3. Small hiatal hernia with moderately dilated esophagus. 4. No acute traumatic findings within the chest although portions of the left chest wall not included due to difficulty positioning. ACT 112: Negative or not required by law. Electronically signed by: Mele Umanzor M.D. 04/11/2025 12:25 PM
--- NOTE | 2025-04-11 13:19 | History & Physical Report ---
Date of Service April 11, 2025 Assessment & Plan (1) Unwitnessed fall: (2) Nasal bone fractures: (3) Alcohol use disorder: (4) Marijuana use: (5) Leukocytosis: (6) Acute hyponatremia: (7) Hypomagnesemia: Plan Patient is a 59-year-old male with past medical history significant for lower esophageal/GE junction invasive adenocarcinoma s/p neoadjuvant FLOT and total gastrectomy and Yeison-en-Y esophagojejunal anastomosis [under observation with Dr. Cipriano Kuhn since 07/2023], severe malnutrition/moderate protein-calorie malnutrition with history of PEG tube placement in 2023, history of recurrent N/V, history of diverticulitis, chronic anemia/TU, trigeminal neuralgia and other problems as outlined in his chart who presented to the ED via EMS s/p unwitnessed fall at home. #Unwitnessed fall at home #Nasal bone fractures Cervical spine CT: no acute cervical spine fx/subluxation Head CT: no acute intracranial abnormality or calvarial fx Head/neck CTA both unremarkable Face CT: comminuted bilateral nasal bone fxs with mildly displaced fragments and overlying soft tissue edema -Appreciate routine OMFS for further eval Appreciate PT/OT evals CK slightly elevated, will give IVF (as per below) --> repeat CK level in AM #Alcohol use disorder #Chronic daily marijuana use Consumes full 12-pack of Twisted Tea every 2 days, last drink yesterday evening around 8PM Daily marijuana use, also uses morphine PRN for trigeminal neuralgia (has not used any morphine in about 4 days) Likely contributed to fall Urine tox screen + for opiates, marijuana EtOH level 36.1 on presentation No h/o alc withdrawal or alc withdrawal seizures Monitor AWSS, PRN IV Ativan protocol IV thiamine, folic acid Daily multivitamin supplementation #Leukocytosis No clear infectious etiology at this time, UA and CXR unremarkable Pt c/o abd pain, as per above, so will check CTAP but otherwise CXR and procal both neg Will also check blood cx for full infectious w/u Monitor off ABX for now, follow WBC trend #Acute hypotonic hyponatremia Likely 2/2 underlying malnutrition Urine osm, urine electrolytes pending S/p 0.5L NSS in ED Continue NSS @ 60cc/hr for now and follow repeat BMP around 6PM #Hypomagnesemia Mag 1.5 on admission Repleted via IV x 3 bags Continue home mag supplementation, monitor and replete PRN #History of lower esophageal/GE junction invasive adenocarcinoma #Severe malnutrition/moderate protein-calorie malnutrition, history of recurrent N/V F/w Dr. Cipriano Kuhn, [facility] S/p neoadjuvant FLOT and total gastrectomy and Yeison-en-Y esophagojejunal anastomosis Final pathology showed no residual carcinoma 17+ 5 lymph nodes negative for metastatic disease Under observation since 07/2023 Pt with some mild TTP across upper abd region on exam -Will check CTAP for further eval #History of TU H/H stable, baseline Hgb ~10 Continue Fe supplementation, monitor CBC DVT Prophylaxis: SCDs/TEDs, SQ Lovenox Disposition: Admit to PCU Patient seen in collaboration with Dr. Leon. Please see addendum. I spent a total of 65 minutes coordinating, documenting, and providing care for this patient excluding time spent in the performance of separately billed services or time spent by another provider/QHP. This included personally reviewing all current laboratories and imaging studies, medical reconciliation, outpatient chart review and discussion with specialists. This chart was completed in part utilizing Speech Voice Recognition Software. Grammatical errors, random word insertions, pronoun errors, and incomplete sentences are an occasional consequence of this system due to software limitations, ambient noise, and hardware issues. Any formal questions or concerns about the content, text, or information contained within the body of this dictation should be directly addressed to the provider for clarification. History of Present Illness Chief Complaint: Unwitnessed fall at home Primary Care Provider: Thaddeus Solis MD Patient is a 59-year-old male with past medical history significant for lower esophageal/GE junction invasive adenocarcinoma s/p neoadjuvant FLOT and total gastrectomy and Yeison-en-Y esophagojejunal anastomosis [under observation with Dr. Cipriano Kuhn since 07/2023], severe malnutrition/moderate protein-calorie malnutrition with history of PEG tube placement in 2023, history recurrent N/V, history of diverticulitis, chronic anemia/TU, trigeminal neuralgia and other problems as outlined in his chart who presented to the ED via EMS s/p unwitnessed fall at home. History primarily obtained from the patient's , [place]onia, at bedside. Patient sleepy but arousable, A&Ox2 - able to recall location, recognizes at bedside. Able to provide some supplemental information upon direct questioning. Additional history obtained from discussion with ED provider and associated chart review. Chronic alcohol use - typically consumes a full 12-pack of Twisted Tea every 2 days. Last drink yesterday evening around 8PM. Also with daily marijuana use since the age of 13. mentions he let both of their dogs outside last evening by accident but couldn't recall doing it as he was "too drunk and stoned." His left the house to locate the dogs and when she returned back home, around 10PM, she found him "passed out" in bed. That was the last time she saw him until around 7AM this morning when she went to check on him and he was slumped over on the side of their bed. She was able to arouse him enough to carry him over to a nearby chair and call EMS. Reports she saw lots of blood spattered around their bathroom, primarily on the toilet seat where it appears he slammed his head - as evidenced by a cut on his nose. Patient unable to recall exactly what occurred. Other than endorsing some mild upper abdominal pain and chronic bilateral hip pain, he offers no other major complaints. Takes morphine PRN for trigeminal neuralgia and hip pain but has not had any in about 4 days. Allergies Allergy/AdvReac Type Severity Reaction Status Date / Time carbamazepine [From Tegretol] Allergy Mild Rash Verified 01/18/25 16:03 Home Medications Medication Instructions Recorded Confirmed Type escitalopram oxalate 10 mg tablet 10 mg PO QAM 12/22/23 04/11/25 History olanzapine 5 mg tablet (Zyprexa) 5 mg PO HS 12/22/23 04/11/25 History cholecalciferol (vitamin D3) 50 50 mcg PO DAILY 02/13/24 04/11/25 History mcg (2,000 unit) tablet (Vitamin D3) cyanocobalamin (vitamin B-12) 500 500 mcg PO DAILYBD 02/13/24 04/11/25 History mcg tablet (Vitamin B-12) aprepitant 80 mg capsule 80 mg PO DAILY PRN Nausea And 04/13/24 04/11/25 History Vomiting folic acid 1 mg tablet 1 mg PO QDL 04/13/24 04/11/25 History lorazepam 0.5 mg tablet 0.5 mg PO Q6H PRN Anxiety 04/13/24 04/11/25 History morphine concentrate 100 mg/5 mL 10 mg PO Q4H PRN Pain 04/13/24 04/11/25 History (20 mg/mL) oral solution prochlorperazine maleate 10 mg 10 mg PO Q6H PRN Nausea And 04/13/24 04/11/25 History tablet Vomiting ferrous sulfate 325 mg (65 mg 325 mg PO 3XWK 11/06/24 04/11/25 History iron) tablet ondansetron HCl 8 mg tablet 8 mg PO Q8H PRN Nausea And Vomiting 11/06/24 04/11/25 History dicyclomine 10 mg capsule 10 mg PO QID PRN abd pain 01/18/25 04/11/25 History magnesium 250 mg tablet 250 mg PO 4XWK 01/18/25 04/11/25 History pantoprazole 40 mg tablet,delayed 40 mg PO QAM 01/18/25 04/11/25 History release Past Med/Surg History Problem List (Updated 04/11/25 @ 17:41 by Tabatha Tian PA-C) Leukocytosis Acute hyponatremia Marijuana use Alcohol use disorder Abrasion of nose (Acute) Elevated d-dimer (Acute) Weakness (Acute) Hyponatremia (Acute) Nasal bone fractures (Acute) Unwitnessed fall (Acute) Nausea & vomiting (Acute) Diverticulitis (Acute) Abnormal abdominal CT scan (Acute) Hypomagnesemia (Acute) Vomiting (Acute) Diffuse abdominal pain (Acute) Abdominal pain (Acute) Pancreatitis (Acute) Intractable nausea and vomiting (Acute) Medical History Acute diverticulitis Intractable nausea and vomiting History of esophageal cancer Severe malnutrition Anemia Esophageal cancer diagnosed 04/2023--chemo/ERCP 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 [place] [place] of recent blood transfusion 05/02/23 @ [facility] Enteropathogenic Escherichia coli infection Hyponatremia Trigeminal neuralgia Hypomagnesemia Vomiting and diarrhea Iron deficiency received blood transfusion 05/02/23 @ [facility] Surgical History History of colonoscopy History of esophagogastroduodenoscopy (EGD) History of tooth extraction partial upper and lower denture [place] [facility] [place] History of vascular access device A port--power port in placed on right side of chest Family History Father Stroke Social History Smoking Status: Never smoker Tobacco Type: Cigarettes Second Hand Exposure: No; Do You Dip or Chew Tobacco: No; Hx Alcohol Use: Yes Alcohol type: other Hx Substance Use: No Preferred Language: Khmer Communication Ability: Effective Safety Council Director Required: No Beliefs That Will Affect Care: None marital status: Current Living Situation: Spouse Feels Safe at Home: Yes Assistive Devices: Cane Review of Systems Review of Systems: At least ten systems reviewed and negative, except as noted in the HPI. Physical Exam Physical Exam: General: NAD, laying down in bed, sleepy but easily arousable, A&Ox3 with direct questioning but unable to recall SE[employer] events, at bedside HEENT: Normocephalic, atraumatic, oropharynx somewhat dry Respiratory: Normal respiratory effort, CTAB Cardiovascular: RRR, normal peripheral pulses, no BLE edema Abdomen/GI: Active bowel sounds, soft/nondistended, mild TTP across upper abd region but no guarding Extremities/MSK: No cyanosis or clubbing, extremities motor strength intact, moves all extremities Neurologic: No overt focal deficits, CN's II-XI not formally tested but appear grossly intact bilaterally Results & Data Results & Data Vital Signs (Past 12 Hours) Vital Signs Temp Pulse Pulse Resp BP BP Pulse Ox 04/11/25 12:48 67 04/11/25 12:37 67 14 120/95 100 04/11/25 11:37 71 10 L 124/87 98 04/11/25 10:37 66 14 125/93 99 04/11/25 09:37 73 10 L 149/111 H 98 04/11/25 08:59 83 04/11/25 08:37 36.4 C L 73 10 L 143/96 H 100 04/11/25 08:37 73 10 L 143/96 H 100 O2 Del Method 04/11/25 12:48 04/11/25 12:37 Room Air 04/11/25 11:37 Room Air 04/11/25 10:37 Room Air 04/11/25 09:37 Room Air 04/11/25 08:59 04/11/25 08:37 Room Air 04/11/25 08:37 Room Air Laboratory Results Short CBC 04/11/25 Range/Units 08:56 WBC 17.43 H (4.8-10.8) K/ul Hgb 10.5 L (14.0-18.0) g/dl Hct 29.9 L (42.0-52.0) % Plt Count 232 (130-400) K/uL BMP 04/11/25 08:56 Sodium 126 L Potassium 4.3 Chloride 94 L Carbon Dioxide 23 BUN 6 Creatinine 0.64 Glucose 89 Calcium 8.0 L Cardiac Enzymes 04/11/25 Range/Units 08:56 Total Creatine Kinase 235 H (30-223) U/L Liver Function 04/11/25 Range/Units 08:56 Total Bilirubin 0.3 (0.2-1.0) mg/dl AST 19 (13-39) U/L ALT 14 (7-52) U/L Alkaline Phosphatase 52 (34-104) U/L Albumin 3.7 (3.4-5.0) gm/dl Urine 04/11/25 Range/Units 09:47 Urine Color Yellow Urine Appearance Clear (Clear) Urine pH 6.0 (4.5-7.5) Ur Specific [place] 1.012 (1.000-1.030) Urine Protein Negative (Negative) Urine Glucose (UA) Negative (Negative) Diagnostic Findings Cervical Spine CT 04/11/25 08:52 CT SCAN OF THE CERVICAL SPINE CLINICAL HISTORY: Trauma. COMPARISON STUDY: None TECHNIQUE: CT scan of the cervical spine is performed from the skull base to the upper thoracic spine. Images are reviewed in the axial, sagittal, and coronal planes. IV contrast was not administered for this examination. A dose lowering technique was utilized adhering to the principles of ALARA. CT DOSE: 2023.87 mGy.cm FINDINGS: Skeletal structures: There is no evidence of fracture or subluxation involving the cervical spine. Vertebral body height and alignment are maintained. The odontoid process and lateral masses are intact. The atlantoaxial articulation is preserved. The spinous processes appear intact. There is moderate multilevel disc space narrowing, endplate osteophytosis and facet arthrosis within the cervical spine. Soft tissues: The prevertebral and paraspinous soft tissues are within normal limits. Calvarium: The visualized calvarium at the skull base appears intact. Brain parenchyma: Partially visualized brain parenchyma at the skull base is within normal limits. Lung apices: Clear as visualized. IMPRESSION: No acute cervical spine fracture or subluxation. ACT 112: Negative or not required by law. Electronically signed by: Mele Umanzor M.D. 04/11/2025 9:52 AM Chest X-Ray 04/11/25 08:52 XR chest 1V portable HISTORY: 59 years-old Male Trauma CT chest trauma COMPARISON: 01/30/2025 TECHNIQUE: AP view of the chest FINDINGS: Cardiomediastinal and hilar silhouettes are within normal limits. Right IJ Nvkqla-e-Eszf catheter distal tip terminates in the expected location of the inferior SVC. No pneumothorax, pleural effusion, airspace consolidation or pulmonary edema. Chronic right-sided rib fractures. No acute rib fracture identified. IMPRESSION: No acute process. ACT 112: Negative or not required by law. The above report was generated using voice recognition software. It may contain grammatical, syntax or spelling errors. Electronically signed by: Lenny Day M.D. 04/11/2025 9:[address] 04/11/25 08:52 CT SCAN OF THE FACIAL BONES WITHOUT IV CONTRAST CLINICAL HISTORY: Trauma. COMPARISON STUDY: No priors TECHNIQUE: High-resolution CT scan of the facial bones is performed. Images are reviewed in the axial, sagittal, and coronal planes. IV contrast was not administered for this examination. A dose lowering technique was utilized adhering to the principles of ALARA. FINDINGS: The skeletal structures are osteopenic. There are comminuted bilateral nasal bone fractures with mildly displaced fragments and overlying soft tissue edema. No additional facial bone fracture is seen. The bony nasal septum appears intact noting rightward deviation. The bony orbits are intact and the orbital contents are within normal limits. The zygomatic arches and pterygoid plates are preserved. There is aries bullosa of the middle nasal turbinates. The maxilla and mandible are intact. There are scattered dental caries. There are no layering blood products within the paranasal sinuses. A 2.5 cm retention cyst is noted in the right maxillary antrum. Trace mucosal thickening is seen in the left maxillary sinus. Remaining paranasal sinuses are clear. The mastoid air cells are well pneumatized. Cerumen is noted in the external auditory canals. The visualized calvarium and upper cervical spine are maintained. Partially imaged brain parenchyma is within normal limits. Atherosclerotic calcification is noted in the carotid bulbs. IMPRESSION: Comminuted bilateral nasal bone fractures as above. ACT 112: Negative or not required by law. Electronically signed by: Brian Love M.D. 04/11/2025 10:[address] 04/11/25 08:52 CT head/brain wo con CLINICAL HISTORY: 59 years-old Male with Trauma. Acute head trauma TECHNIQUE: Multiple axial CT images of the head were obtained without contrast. A dose lowering technique was utilized adhering to the principles of ALARA. COMPARISON: None. FINDINGS: No acute intracranial hemorrhage, midline shift, intracranial mass, hydrocephalus, territorial ischemia or abnormal extra-axial collection. 1.2 cm hypodensity within the right lentiform nucleus on image 20 series 2 suggestive of a chronic lacunar infarct. Probable mild chronic microvascular ischemic disease. The calvarium is intact. 2.3 cm right maxillary sinus polyp. The mastoid air cells are clear. Angulated left nasal bone fractures, likely chronic. IMPRESSION: 1. No acute intracranial abnormality or calvarial fracture. 2. Angulated left nasal bone fracture, likely chronic. ACT 112: Negative or not required by law. The above report was generated using voice recognition software. It may contain grammatical, syntax or spelling errors. Electronically signed by: Lenny Day M.D. 04/11/2025 9:50 AM Chest CTA 04/11/25 10:13 CT ANGIOGRAM OF THE CHEST CLINICAL HISTORY: Trauma. Altered mental status. COMPARISON STUDY: Chest radiograph January 30, 2025 and chest radiograph performed earlier today. TECHNIQUE: Following the IV administration of 112 cc of Optiray 320, CT angiogram of the chest was performed from the upper abdomen to the thoracic inlet utilizing the pulmonary embolus protocol. Images are reviewed in the axial, sagittal, and coronal planes. 3-D MIPS images are created and assessed. IV contrast was administered without complication. A dose lowering technique was utilized adhering to the principles of ALARA. CT DOSE: 958.56 mGy.cm FINDINGS: No pulmonary emboli are identified. There is no thoracic aortic dissection. Moderate cardiomegaly is noted. Postoperative findings within the stomach are noted. There is a small hiatal hernia. There is moderate dilatation of the esophagus. No pneumothorax or pleural effusion is identified. Due to difficulty positioning, portions of the left chest wall are not included on this exam. No rib fractures are identified within visualized portions of the chest. There are no thoracic spine fractures. Subpleural ground glass opacities favor atelectasis. There are no suspicious pulmonary nodules. IMPRESSION: 1. No pulmonary emboli identified. 2. Cardiomegaly. 3. Small hiatal hernia with moderately dilated esophagus. 4. No acute traumatic findings within the chest although portions of the left chest wall not included due to difficulty positioning. ACT 112: Negative or not required by law. Electronically signed by: Mele Umanzor M.D. 04/11/2025 12:25 PM Head CTA 04/11/25 10:13 CT ANGIOGRAM OF THE BRAIN CLINICAL HISTORY: Change in mental status. Weakness. COMPARISON STUDY: Unenhanced CT of the brain performed earlier the same day at 04/11/2025 TECHNIQUE: Following the IV administration of 112 cc of Optiray 320, CT angiogram of the brain was performed from the skull base to the vertex. Images are reviewed in the axial, sagittal, and coronal planes. 3-D MIPS images are created and assessed. IV contrast was administered without complication. A dose lowering technique was utilized adhering to the principles of ALARA. FINDINGS: Brain parenchyma: There is age-related involutional change noting mild subcortical and periventricular microangiopathic disease. There is no evidence of hemorrhage or mass effect noting angiographic phase technique. There is no evidence of enhancing mass lesion on the angiogram phase images. No extra-axial fluid collection is seen. Hurley-white matter differentiation is preserved. Ventricles, sulci, and cisterns: Normal in configuration. CT angiogram of the brain: There is atherosclerotic calcification of the carotid bulbs. The internal carotid arteries at the skull base are patent, as are the anterior and middle cerebral arteries. The vertebrobasilar system and posterior cerebral arteries are patent. The right vertebral artery is dominant. There is no aneurysm, high-grade stenosis, or focal vessel cutoff identified throughout the intracranial circulation. Dural sinuses: Clear as visualized. Orbits: The bony orbits are intact. The orbital contents are normal as visualized. Sinuses and mastoids: A 2.5 cm retention cyst is seen in the right maxillary antrum. The remaining paranasal sinuses are clear. The mastoid air cells are well pneumatized. Cerumen is noted in the external auditory canals. Calvarium: The skeletal structures are osteopenic. The calvarium appears intact. There are comminuted bilateral nasal bone fractures. IMPRESSION: 1. There is no evidence of hemorrhage or mass effect noting angiographic phase technique. 2. Unremarkable CT angiogram of the brain. 3. Bilateral nasal bone fractures are again noted. ACT 112: Negative or not required by law. Electronically signed by: Brian Love M.D. 04/11/2025 11:58 AM Neck CTA 04/11/25 10:13 CT angio neck with con CLINICAL HISTORY: 59 years-old Male with Change in mental status, weakness, fall. Acute weakness with neck pain status post fall COMPARISON STUDY: CTA head of same day, CT cervical spine of same day TECHNIQUE: Following the IV administration of 112 of Optiray, CT angiogram of the neck was performed from the aortic arch to the skull base. Images are reviewed in the axial, sagittal, and coronal planes. 3-D MIPS images are created and assessed. IV contrast was administered without complication. All measurements were calculated based on NASCET criteria. A dose lowering technique was utilized adhering to the principles of ALARA. FINDINGS: Three-vessel morphology of the thoracic aortic arch. Widely patent common carotid arteries. Mild atherosclerosis of the carotid bulbs without significant stenosis. Patent and codominant vertebral arteries. No aneurysm, dissection, high-grade stenosis or arterial occlusion. Lung apices appear clear. Mild gaseous distention of the upper esophagus. Subcentimeter hypodense right-sided thyroid nodule. Soft tissues are within normal limits. Multilevel degenerative changes of the cervical spine. Right maxillary sinus polyp. IMPRESSION:Unremarkable CTA of the neck. ACT 112: Negative or not required by law. The above report was generated using voice recognition software. It may contain grammatical, syntax or spelling errors. Electronically signed by: Lenny Day M.D. 04/11/2025 12:01 PM Medications Administered Discontinued Medications Diphtheria/Pertussis/Tetanus Vacc (Diphther/Tetan/Pertus Vaccine (Tdap, Adol/Adult) 0.5ml) 0.5 ml IM .ONCE ONE Stop: 04/11/25 11:38 Last Admin: 04/11/25 11:56 Dose: 0.5 ml Documented By: CEF Sodium Chloride (Nss) 500 mls @ 999 mls/hr IV .Q31M ONE Stop: 04/11/25 09:22 Last Infusion: 04/11/25 09:50 Dose: Infused Documented By: Admin: 04/11/25 09:12 Dose: 999 mls/hr Documented By: CEF Magnesium Sulfate/Dextrose (Magnesium Sulfate / D5w) 1 gm in 100 mls @ 100 mls/hr IV NOW STA Stop: 04/11/25 12:54 Last Infusion: 04/11/25 13:11 Dose: Infused Documented By: Admin: 04/11/25 12:10 Dose: 100 mls/hr Documented By: CEF Ioversol (Optiray 320 125ml) 112 ml IV ONCE ONE Stop: 04/11/25 11:35 Last Admin: 04/11/25 11:34 Dose: 112 ml Documented By: SAMANTHA Ondansetron HCl (Ondansetron Inj 2 Mg/Ml 2 Ml Vial) 4 mg IV NOW STA Stop: 04/11/25 11:26 Last Admin: 04/11/25 11:27 Dose: 4 mg Documented By: ARS Code Status & VTE Plan Code Status FULL CODE - As per discussion with the patient and his at bedside. Supervising Physician Co-Signing Physician Notes Patient seen and examined independently. Discussed with above provider. He presents with a mechanical fall; reports use of marijuana, alcohol. He was found to have hyponatremia. He is alert oriented x 3; denies fever, chills, chest pain, shortness of breath, abdominal pain or urinary symptoms. Plan to continue IV fluids; repeat BMP to monitor for hyponatremia. Repeat CK in a.m. I have reviewed the advanced practitioner's documentation, and I agree with, and take responsibility for the plan of care I spent a total of 30 minutes coordinating, documenting, and providing care for this patient excluding time spent in the performance of separately billed services. All of the aforementioned completed while collaborating with the assigned advanced practitioner for a full treatment plan (2) Nasal bone fractures Encounter type: initial encounter Fracture type: closed Qualified Code(s): S 02.2XXA - Fracture of nasal bones, initial encounter for closed fracture (5) Leukocytosis Leukocytosis type: unspecified Qualified Code(s): D72.829 - Elevated white blood cell count, unspecified
[2025-04-11] MEDS: MAGNESIUM SULFATE / D5W 1 GM/100 ML BAG IV SCH (14:13)
[2025-04-11] MEDS: SODIUM CHLORIDE 0.9% 1,000 ML IV SCH (15:20)
[2025-04-11] MEDS: FOLIC ACID 1 MG in SYRINGE 9.8 ML IV SCH (15:22)
[2025-04-11] MEDS: THIAMINE HCL 100 MG in SYRINGE 9 ML IV SCH (15:25)
[2025-04-11] MEDS ORDERED: MAGNESIUM HYDROXIDE SUSP 30 ML UDC PO PRN (15:59)
[2025-04-11] MEDS ORDERED: POLYETHYLENE (MIRALAX) 17 GM PACK PO PRN (15:59)
[2025-04-11] MEDS: ACETAMINOPHEN 325 MG TAB PO PRN (17:42)
[2025-04-11] MEDS: ONDANSETRON INJ 2 MG/ML 2 ML VIAL IV PRN (17:49)
[2025-04-11 18:06] LABS: Anion Gap 7.0 (3-11); Blood Urea Nitrogen 5.0 mg/dl (6-23); Calcium 8.4 mg/dl (8.6-10.3); Carbon Dioxide 25.0 mmol/L (21-32); Chloride 92.0 mmol/L (98-107); Creatinine Clr Calc Pharmacy 131.5 ml/min; Glucose 94.0 mg/dl (70-99(Fasting)); Potassium 4.6 mmol/L (3.5-5.1); Sodium 124.0 mmol/L (136-145)
[2025-04-11] MEDS: OPTIRAY 320 100ml IV ONE (19:58)
[2025-04-11] MEDS: CYANOCOBALAMIN (B-12) 500 MCG TABLET PO SCH (20:22)
[2025-04-11] MEDS: ENOXAPARIN INJ 40 MG/0.4 ML SYR SQ SCH (20:22)
[2025-04-11] MEDS ORDERED: HYDROmorphone INJ 0.5 MG/0.5 ML SYR IV PRN (20:36)
--- NOTE | 2025-04-11 20:46 | CT Scan Report ---
Exam(s): CT ABDOMEN + PELVIS W/WO Contrast IV Amt: 90 ml optiray 320 EXAM: CT Abdomen and Pelvis Without and With Intravenous Contrast CLINICAL HISTORY: Reason for exam: Abd pain, nausea. TECHNIQUE: Axial computed tomography images of the abdomen and pelvis without and with intravenous contrast. CTDI is 14.5 mGy and DLP is 661.66 mGy-cm. Automated exposure control was utilized for the study. A dose lowering technique was utilized adhering to the principles of ALARA. Mild motion/artifact. CONTRAST: Patient received 90 ml optiray 320 of IV contrast COMPARISON: CT abdomen pelvis 04/04/2025. FINDINGS: Lung bases: Clear. Small hiatal hernia, stable. Liver: Unremarkable. Gallbladder and bile ducts: Normal, contracted gallbladder. No ductal dilation. Pancreas: No ductal dilation, or acute pancreatitis. Spleen: Unremarkable. Adrenals: Unremarkable. Kidneys and ureters: No pyelonephritis or hydronephrosis. Stomach and bowel: Portions of the small bowel show fluid and intermittent wall thickening that may be physiologic and artifact from underdistention. Mild entero colitis difficult to exclude in the setting. Postoperative change, the stomach is not seen. Diverticulosis without definite acute diverticulitis. No significant interval change. No obstruction. Appendix: Normal. Intraperitoneal space: No free air or fluid. Bones/joints: No acute fracture. Soft tissues: Unremarkable. Vasculature: No aortic aneurysm. Lymph nodes: No enlarged lymph nodes. Bladder: Unremarkable. Reproductive: Unremarkable as visualized. IMPRESSION: 1. Portions of the small bowel show fluid and intermittent wall thickening that may be physiologic and/or artifact from underdistention. Mild enterocolitis difficult to exclude in the setting. 2. No definite acute abnormality, and no significant interval change. 3. Diverticulosis again noted. Electronically signed by: Sharon Saavedra M.D. 04/11/25 20:46 PM
--- NOTE | 2025-04-11 21:24 | Electrocardiogram Report ---
Test Reason : Blood Pressure : */* mmHG Vent. Rate : 75 BPM Atrial Rate : 75 BPM P-R Int : 144 ms QRS Dur : 82 ms QT Int : 388 ms P-R-T Axes : -9 -11 -17 degrees QTcB Int : 433 ms Normal sinus rhythm Possible Inferior infarct , age undetermined Abnormal ECG When compared with ECG of 04-Apr-2025 09:23, Inferior infarct is now Present T wave inversion now evident in Inferior leads Confirmed by Noé Mathis ([id number]) on 04/11/2025 9:24:40 PM Referred By: REFERRED SELF Confirmed By: Noé Mathis
[2025-04-11] MEDS: HYDROmorphone INJ 0.5 MG/0.5 ML SYR IV PRN (22:03)
--- NOTE | 2025-04-12 08:31 | Hospitalist Progress Note ---
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 Cipriano Kuhn since 07/2023], severe malnutrition/moderate protein-calorie malnutrition with history of PEG tube placement in 2023, history of recurrent N/V, history of diverticulitis, chronic anemia/TU, trigeminal neuralgia and other problems as outlined in his chart who presented to the ED on 04/11/2025 via EMS after an unwitnessed fall at home and is admitted for nasal bone fracture and hyponatremia. 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 and not recommending treatment Acute hypotonic hyponatremia Likely due to underlying malnutrition, poor solute diet Na 126-> 124-> 129 Osmolality 266, urine osmolality 302, urine sodium 23 Nephrology consulted and recommending: Continue 1.5 L fluid limit Would not start Lasix at this time since he had a significant IV dye load yesterday and that could put him into renal failure with diuretics on board: Consider diuresis if needed tomorrow Avoid salt tablets due to hypertension Avoid urea due to chronic nausea vomiting and malnutrition Daily basic metabolic panel with tomorrow am target sodium no more than 135 Alcohol use disorder Chronic daily marijuana use Consumes full 12-pack of Twisted Tea every 2 days, last drink 04/10 around 8PM Urine tox screen + for opiates (pt prescribed morphine for trigeminal neuralgia), marijuana (pt reports daily use) EtOH level 36.1 on presentation No history of alcohol withdrawal or alcohol withdrawal seizures Monitor AWSS - scores 0-2 PRN IV Ativan protocol Continue thiamine and folic acid Leukocytosis WBC 17K on admission dropped to 6K today Likely reactive from trauma No clear infectious etiology at this time CTAP, UA, and CXR unremarkable History of lower esophageal/GE junction invasive adenocarcinoma Severe malnutrition/moderate protein-calorie malnutrition, history of recurrent N/V Follows with Dr. Cipriano Kuhn of [facility] heme/onc S/p neoadjuvant FLOT and total gastrectomy and Yeison-en-Y esophagojejunal anastomosis Final pathology showed no residual carcinoma 17+ 5 lymph nodes negative for metastatic disease Under observation since 07/2023 History of TU H/H stable, baseline Hgb ~10 Continue Fe supplementation Monitor CBC DVT Prophylaxis: SQ Lovenox Code Status: FULL CODE PCP: Thaddeus Solis Disposition: anticipate dc in 2-3 days pending normalization of sodium levels Patient seen in collaboration with Dr Aponte. Please see addendum. I spent a total of 50 minutes coordinating, documenting and providing care for this patient excluding time spent in the performance of separately billed services or time spent by another provider/QHP. Admission and Anticipated Discharge Date Admission Date: April 11, 2025 Supervising Physician Co-Signing Physician Notes Patient seen and examined Agree with findings and plans as detailed by Dian TONY Subjective Patient seen sitting up in bed Reports 5/10 pain in his nose that improved with pain medicine Feels nauseous and is vomiting saliva Otherwise denies chest pain, SOB, abdominal pain, weakness Review of Systems Review of Systems: All systems reviewed & are unremarkable except as noted in Subjective Physical Exam Physical Exam: General/Psych: WD/WN, sitting up in bed, NAD, conversing easily Head: normocephalic, atraumatic Eyes: normal inspection, PERRL, conjunctivae pink, anicteric sclerae ENT: external ear normal, nose is swollen, oropharynx normal Neck: normal visual inspection, trachea midline, no thyromegaly Respiratory: normal respiratory effort, lungs clear to auscultation, no wheeze/rales/rhonchi, no accessory muscle use Cardiovascular: regular rate and rhythm, no murmur/rub/gallop, no JVD Extremities: no cyanosis or clubbing, normal peripheral pulses, no BLE edema Abdomen/GI: normal bowel sounds, soft, nontender Neurologic/MSK: A+Ox3, motor strength 5/5, moves all extremities Skin: no rashes, normal color, warm and dry Results & Data Results & Data Vital Signs (Past 12 Hours) Vital Signs Temp Pulse Pulse Resp BP Pulse Ox O2 Del Method 04/12/25 08:07 36.7 C 67 18 143/90 H 98 Room Air 04/12/25 03:07 36.5 C 62 18 107/64 98 Room Air 04/11/25 23:06 36.7 C 118 H 18 102/63 99 Room Air 04/11/25 20:47 64 Laboratory Results Short CBC 04/12/25 Range/Units 08:20 WBC 6.24 D (4.8-10.8) K/ul Hgb 10.3 L (14.0-18.0) g/dl Hct 28.6 L (42.0-52.0) % Plt Count 250 (130-400) K/uL BMP 04/11/25 04/12/25 17:34 08:20 Sodium 124 L 129 L Potassium 4.6 4.1 Chloride 92 L 97 L Carbon Dioxide 25 26 BUN 5 L 6 Creatinine 0.54 L 0.69 Glucose 94 130 H Calcium 8.4 L 8.3 L Cardiac Enzymes 04/12/25 Range/Units 08:20 Total Creatine Kinase 388 H (30-223) U/L Liver Function 04/12/25 Range/Units 08:20 Total Bilirubin 0.6 (0.2-1.0) mg/dl AST 22 (13-39) U/L ALT 13 (7-52) U/L Alkaline Phosphatase 57 (34-104) U/L Albumin 3.5 (3.4-5.0) gm/dl I have independently reviewed and interpreted patient's labs including CBC, CMP, CK Medications Administered Current Inpatient Medications Acetaminophen (Acetaminophen 325 Mg Tab) 650 mg PO Q4H PRN PRN Reason: Pain or Fever Stop: 05/11/25 15:58 Last Admin: 04/11/25 17:42 Dose: 650 mg Cyanocobalamin (Cyanocobalamin (B-12) 500 Mcg Tablet) 500 mcg PO DAILYBD GREG Stop: 05/11/25 15:29 Last Admin: 04/11/25 20:22 Dose: 500 mcg Enoxaparin Sodium (Enoxaparin Inj 40 Mg/0.4 Ml Syr) 40 mg SQ Q24H GREG Stop: 05/11/25 14:44 Last Admin: 04/12/25 14:18 Dose: 40 mg Escitalopram Oxalate (Escitalopram Oxalate 10 Mg Tab) 10 mg PO Q[facility] [place] Stop: 05/12/25 08:59 Last Admin: 04/12/25 09:04 Dose: 10 mg Ferrous Sulfate (Ferrous Sulfate 325 Mg Tab) 325 mg PO MoWeFr@0900 [facility] Stop: 05/12/25 08:59 Last Admin: 04/12/25 09:04 Dose: 325 mg Hydralazine HCl (Hydralazine Hcl 20 Mg/Ml Vial) 5 mg IV Q4H PRN PRN Reason: SBP>170 or DBP>110 Stop: 05/11/25 17:21 Last Admin: 04/11/25 17:43 Dose: 5 mg Hydromorphone HCl (Hydromorphone Inj 0.5 Mg/0.5 Ml Syr) 0.25 mg IV Q6H PRN PRN Reason: Moderate Pain (Scale 4, 5, 6) Stop: 04/25/25 20:35 Hydromorphone HCl (Hydromorphone Inj 0.5 Mg/0.5 Ml Syr) 0.5 mg IV Q6H PRN PRN Reason: Severe Pain (Scale 7, 8, 9,10) Stop: 04/25/25 20:35 Last Admin: 04/12/25 09:12 Dose: 0.5 mg Thiamine HCl 100 mg/ Syringe 10 mls @ 2 mls/min IV [facility] Stop: 05/11/25 14:29 Last Admin: 04/12/25 09:04 Dose: 2 mls/min Folic Acid 1 mg/ Syringe 10 mls @ 5 mls/min IV [facility] Stop: 05/11/25 14:29 Last Admin: 04/12/25 09:04 Dose: 5 mls/min Lorazepam (Lorazepam 2 Mg/1 Ml Vial) 1 mg IV ONE PRN; Protocol PRN Reason: EtoH Withdrawal AWSS 6-10 Magnesium Hydroxide (Magnesium Hydroxide Susp 30 Ml Udc) 30 ml PO Q12H PRN PRN Reason: Constipation Stop: 05/11/25 15:58 Magnesium Oxide (Magnesium Oxide 400 Mg Tab) 400 mg PO MoWeThFr@0900 [facility] Stop: 05/12/25 08:59 Last Admin: 04/12/25 09:04 Dose: 400 mg Multivitamins (Multivitamin Tab) 1 tab PO [facility] Stop: 05/12/25 08:59 Last Admin: 04/12/25 09:04 Dose: 1 tab Olanzapine (Olanzapine 5 Mg Tablet) 5 mg PO HS GREG Stop: 05/11/25 20:59 Last Admin: 04/11/25 20:22 Dose: 5 mg Ondansetron HCl (Ondansetron Inj 2 Mg/Ml 2 Ml Vial) 4 mg IV Q6H PRN PRN Reason: Nausea Stop: 05/11/25 15:58 Last Admin: 04/12/25 09:07 Dose: 4 mg Pantoprazole Sodium (Pantoprazole 40 Mg Tab) 40 mg PO QAM GREG Stop: 05/12/25 08:59 Last Admin: 04/12/25 09:04 Dose: 40 mg Polyethylene Glycol (Polyethylene (Miralax) 17 Gm Pack) 17 gm PO DAILY PRN PRN Reason: Constipation Stop: 05/11/25 15:58 Vitamin D (Cholecalciferol 25 Mcg (1000 Units) Tab) 50 mcg PO DAILY GREG Stop: 05/12/25 08:59 Last Admin: 04/12/25 09:04 Dose: 50 mcg (2) Nasal bone fractures Encounter type: initial encounter Fracture type: closed Qualified Code(s): S02.2XXA - Fracture of nasal bones, initial encounter for closed fracture (5) Leukocytosis Leukocytosis type: unspecified Qualified Code(s): D72.829 - Elevated white blood cell count, unspecified
[2025-04-12 08:58] LABS: Alanine Aminotransferase 13.0 U/L (7-52); Albumin Globulin Ratio 1.7 (0.9-2); Alkaline Phosphatase 57.0 U/L (34-104); Anion Gap 6.0 (3-11); Bilirubin,Total 0.6 mg/dl (0.2-1.0); Blood Urea Nitrogen 6.0 mg/dl (6-23); Calcium 8.3 mg/dl (8.6-10.3); Carbon Dioxide 26.0 mmol/L (21-32); Chloride 97.0 mmol/L (98-107); Creatine Kinase 388.0 U/L (30-223); Creatinine Clr Calc Pharmacy 91.9 ml/min; Globulin 2.1 gm/dl (2.5-4.0); Glucose 130.0 mg/dl (70-99(Fasting)); Magnesium 1.8 mg/dl (1.7-2.4); Potassium 4.1 mmol/L (3.5-5.1); Sodium 129.0 mmol/L (136-145); Total Protein 5.6 gm/dl (6.0-8.3)
[2025-04-12 09:01] LABS: Hematocrit (blood only) 28.6 % (42.0-52.0); Hemoglobin 10.3 g/dl (14.0-18.0); Immature Granulocytes # (auto) 0.01 K/uL (0.01-0.20); Immature Granulocytes % (auto) 0.2 %; Mean Corpuscular Hemoglobin 30.8 pg (25.0-34.0); Mean Corpuscular Volume 85.6 fL (80.0-100.0); Platelet Count 250 K/uL (130-400); RDW Standard Deviation 41.9 fL (36.4-46.3); Red Blood Count 3.34 M/uL (4.70-6.10); White Blood Count 6.24 K/ul (4.8-10.8)
[2025-04-12] MEDS: FERROUS SULFATE 325 MG TAB PO SCH (09:04)
[2025-04-12] MEDS: MAGNESIUM OXIDE 400 MG TAB PO SCH (09:04)
[2025-04-12] MEDS: CHOLECALCIFEROL 25 MCG (1000 UNITS) TAB PO SCH (09:04)
[2025-04-12] MEDS: ESCITALOPRAM OXALATE 10 MG TAB PO SCH (09:04)
[2025-04-12] MEDS: MULTIVITAMIN TAB PO SCH (09:04)
--- NOTE | 2025-04-12 10:47 | Oral/Maxillofacial Consult ---
Date of Consultation April 12, 2025 Assessment & Plan (1) Nasal bone fractures: History of Present Illness Attending Physician: Susi Aponte MD History of Present Illness Patient was seen today for follow up regarding a fall and hitting the bridge of his nose I am glad to say he is doing very well The swelling and redness is subsiding and no issues with the shape of nose, airflow, sinus or the resolving swelling I did an intra nasal evaluation, the septum looks good, no edema, excellent airflow, anatomy looks good, no redness or drainage. Patient feels the nose does not look any different. I reviewed the CT and there is an insignificant non displaced nasal fracture that will not require any treatment As a matter of fact [place] had nasal trauma in the past and has no current nasal issues No pain on pressure No sinus or congestion issues noted. The redness, swelling, bruising is resolving very well No neck issues Over all feeling well (regarding the recent nasal/facial trauma and will not require any treatment or follow up from the recent facial/nasal injury. We both agree that no treatment is indicated. Allergies Allergy/AdvReac Type Severity Reaction Status Date / Time carbamazepine [From Tegretol] Allergy Mild Rash Verified 01/18/25 16:03 Home Medications Medication Instructions Recorded Confirmed Type escitalopram oxalate 10 mg tablet 10 mg PO QAM 12/22/23 04/11/25 History olanzapine 5 mg tablet (Zyprexa) 5 mg PO HS 12/22/23 04/11/25 History cholecalciferol (vitamin D3) 50 50 mcg PO DAILY 02/13/24 04/11/25 History mcg (2,000 unit) tablet (Vitamin D3) cyanocobalamin (vitamin B-12) 500 500 mcg PO DAILYBD 02/13/24 04/11/25 History mcg tablet (Vitamin B-12) aprepitant 80 mg capsule 80 mg PO DAILY PRN Nausea And 04/13/24 04/11/25 History Vomiting folic acid 1 mg tablet 1 mg PO QDL 04/13/24 04/11/25 History lorazepam 0.5 mg tablet 0.5 mg PO Q6H PRN Anxiety 04/13/24 04/11/25 History morphine concentrate 100 mg/5 mL 10 mg PO Q4H PRN Pain 04/13/24 04/11/25 History (20 mg/mL) oral solution prochlorperazine maleate 10 mg 10 mg PO Q6H PRN Nausea And 04/13/24 04/11/25 History tablet Vomiting ferrous sulfate 325 mg (65 mg 325 mg PO 3XWK 11/06/24 04/11/25 History iron) tablet ondansetron HCl 8 mg tablet 8 mg PO Q8H PRN Nausea And Vomiting 11/06/24 04/11/25 History dicyclomine 10 mg capsule 10 mg PO QID PRN abd pain 01/18/25 04/11/25 History magnesium 250 mg tablet 250 mg PO 4XWK 01/18/25 04/11/25 History pantoprazole 40 mg tablet,delayed 40 mg PO QAM 01/18/25 04/11/25 History release Patient History Medical History Acute diverticulitis Intractable nausea and vomiting History of esophageal cancer Severe malnutrition Anemia Esophageal cancer diagnosed 04/2023--chemo/ERCP 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 Edmonds/[facility] Eduardo History of recent blood transfusion 05/02/23 @ [facility] Enteropathogenic Escherichia coli infection Hyponatremia Trigeminal neuralgia Hypomagnesemia Vomiting and diarrhea Iron deficiency received blood transfusion 05/02/23 @ [facility] Surgical History History of colonoscopy History of esophagogastroduodenoscopy (EGD) History of tooth extraction partial upper and lower denture History of ERCP 04/2023 @ [facility] Eduardo History of vascular access device A port--power port in placed on right side of chest Family History Father Stroke Social History Smoking Status: Never smoker Tobacco Type: Cigarettes Second Hand Exposure: No; Do You Dip or Chew Tobacco: No; Hx Alcohol Use: Yes Alcohol type: beer Hx Substance Use: Yes Last Used Substance: Days (ago) Preferred Language: Slovenian Communication Ability: Effective Field Instructor Required: No Beliefs That Will Affect Care: None marital status: Current Living Situation: Spouse Current Living Situation Comment: [place] Feels Safe at Home: Yes Assistive Devices: Cane and Denture - Upper Results & Data Vital Signs (Past 12 Hours) Vital Signs Temp Pulse Resp BP Pulse Ox O2 Del Method 04/12/25 08:07 36.7 C 67 18 143/90 H 98 Room Air 04/12/25 03:07 36.5 C 62 18 107/64 98 Room Air 04/11/25 23:06 36.7 C 118 H 18 102/63 99 Room Air PG Care Time/CCT Total # of Minutes Spent Total Time Spent with Patient: Total time spent is greater than 50% in coordination of care (as documented) at patient's floor/unit and/or counseling patient: Coding Level of Care Code 03242 IN/OBS CONSULT LVL 2,35M Diagnoses Closed fracture of nasal bone with routine healing, subsequent encounter S02.2XXD Encounter type: subsequent encounter Fracture type: closed Fracture healing: with routine healing (1) Nasal bone fractures Encounter type: subsequent encounter Fracture type: closed Fracture healing: with routine healing Qualified Code(s): S02.2XXD - Fracture of nasal bones, subsequent encounter for fracture with routine healing
--- NOTE | 2025-04-12 14:49 | Nephrology Consultation ---
Date of Consultation April 12, 2025 Assessment & Plan (1) Hyponatremia: Hypotonic hyponatremia most consistent with SIADH/malnutrition from low solute diet with presenting sodium 126, meg value 124 on day of admission April 11. Target sodium tomorrow a.m. is no more than 135; for right now our options for treating/improving hyponatremia are unfortunately limited for reasons below Continue 1.5 L fluid limit Would not start Lasix at this time since he had a significant IV dye load yesterday and that could put him into renal failure with diuretics on board: Consider diuresis if needed tomorrow since lasix will be one of the few tools that will help with hyponatremia Avoid salt tablets due to hypertension Avoid urea due to chronic nausea vomiting and malnutrition Daily basic metabolic panel is reasonable at this time History of Present Illness Reason for Consultation: Hyponatremia Requesting Physician: Dr. Aponte Attending Physician: Susi Aponte MD History of Present Illness 59-year-old male whom I am asked to evaluate for hyponatremia was admitted yesterday afternoon after an unwitnessed fall with nasal bone fractures and has presenting sodium of 126 at 9 AM April 11. Past medical history includes invasive lower esophageal/GE junction adenocarcinoma status post neoadjuvant FLOT and total gastrectomy with Yeison on Y esophageal-jejunal anastomosis, severe malnutrition/moderate protein-calorie malnutrition with history of PEG tube placement in 2023, recurrent N/V, history of diverticulitis, chronic anemia, trigeminal neuralgia and chronic bilateral hip pain, active alcohol abuse (12 pack of twisted tea every 2 days) and daily marijuana use since age 13. Ear nose and throat saw the patient and no surgical therapy or ENT follow-up indicated. Seen here 1 week ago with serum sodium at that time 132 on April 04 and serum sodium 135 on February 25 and 139 on February 01. Serum sodium 129 this morning. CK 235 on admission, up to 388 this morning. Urine sodium 23, urine chloride 26. Urine specific gravity 1012. Urine osmolality 302; serum osmolality 266. Serum creatinine 0.7 this morning. Some confusion day prior to admission attributed to substance use. On day of admission, found the patient at about 7 AM after not seeing him for about 9 hours slumped over on the side of the bed with blood splattered around their bathroom and a laceration on his nose. Patient has no recall of what happened. In the ED he had a liter of normal saline followed by normal saline at 60 mL hourly; he had 2 doses of IV contrast and 2 g of IV mag (200 mL total of D5 water). He is currently on a 1.5 L fluid limit. Currently the patient denies pain, nausea or vomiting. Tells me he eats a high- protein diet consistently at home. States he is ambulating in the room without difficulty and is anxious to get out of the hospital. No shortness of breath no palpitations or chest pain no lower extremity edema. Tells me this is the first time that he has fallen. Allergies Allergy/AdvReac Type Severity Reaction Status Date / Time carbamazepine [From Tegretol] Allergy Mild Rash Verified 01/18/25 16:03 Home Medications Medication Instructions Recorded Confirmed Type escitalopram oxalate 10 mg tablet 10 mg PO QAM 12/22/23 04/11/25 History olanzapine 5 mg tablet (Zyprexa) 5 mg PO HS 12/22/23 04/11/25 History cholecalciferol (vitamin D3) 50 50 mcg PO DAILY 02/13/24 04/11/25 History mcg (2,000 unit) tablet (Vitamin D3) cyanocobalamin (vitamin B-12) 500 500 mcg PO DAILYBD 02/13/24 04/11/25 History mcg tablet (Vitamin B-12) aprepitant 80 mg capsule 80 mg PO DAILY PRN Nausea And 04/13/24 04/11/25 History Vomiting folic acid 1 mg tablet 1 mg PO QDL 04/13/24 04/11/25 History lorazepam 0.5 mg tablet 0.5 mg PO Q6H PRN Anxiety 04/13/24 04/11/25 History morphine concentrate 100 mg/5 mL 10 mg PO Q4H PRN Pain 04/13/24 04/11/25 History (20 mg/mL) oral solution prochlorperazine maleate 10 mg 10 mg PO Q6H PRN Nausea And 04/13/24 04/11/25 History tablet Vomiting ferrous sulfate 325 mg (65 mg 325 mg PO 3XWK 11/06/24 04/11/25 History iron) tablet ondansetron HCl 8 mg tablet 8 mg PO Q8H PRN Nausea And Vomiting 11/06/24 04/11/25 History dicyclomine 10 mg capsule 10 mg PO QID PRN abd pain 01/18/25 04/11/25 History magnesium 250 mg tablet 250 mg PO 4XWK 01/18/25 04/11/25 History pantoprazole 40 mg tablet,delayed 40 mg PO QAM 01/18/25 04/11/25 History release Patient History Medical History Acute diverticulitis Intractable nausea and vomiting History of esophageal cancer Severe malnutrition Anemia Esophageal cancer diagnosed 04/2023--chemo/ERCP 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 Edmonds/[facility] History of recent blood transfusion 05/02/23 @ [facility] Enteropathogenic Escherichia coli infection Hyponatremia Trigeminal neuralgia Hypomagnesemia Vomiting and diarrhea Iron deficiency received blood transfusion 05/02/23 @ [facility] Surgical History History of colonoscopy History of esophagogastroduodenoscopy (EGD) History of tooth extraction partial upper and lower denture History of ERCP 04/2023 @ [facility] History of vascular access device A port--power port in placed on right side of chest Family History Father Stroke Social History Smoking Status: Never smoker Tobacco Type: Cigarettes Second Hand Exposure: No; Do You Dip or Chew Tobacco: No; Hx Alcohol Use: Yes Alcohol type: beer Hx Substance Use: Yes Last Used Substance: Days (ago) Preferred Language: Czech Communication Ability: Effective Manager Of Photography Required: No Beliefs That Will Affect Care: None marital status: Current Living Situation: Spouse Current Living Situation Comment: [place] Feels Safe at Home: Yes Assistive Devices: Cane Review of Systems 2 Review of Systems: All systems reviewed & are unremarkable except as noted in HPI & below Physical Exam 2 Constitutional: well developed, + cachectic, + frail appearing and cooperative; no acute distress Eyes: EOM intact bilaterally ENMT: Mouth: + dry oral mucous membranes Respiratory: normal respiratory effort Auscultation: + diminished lung sounds Gastrointestinal (Abdomen): Inspection/Auscultation: normal bowel sounds and + scaphoid Percussion/Palpation: abdomen soft; abdomen nontender Musculoskeletal: Extremities: strength 5/5 throughout Skin: no rashes, warm and dry Neurologic: doyle, fluent speech, no tremor Results & Data Vital Signs (Past 12 Hours) Vital Signs Temp Pulse Resp BP Pulse Ox O2 Del Method 04/12/25 13:04 Room Air 04/12/25 11:54 37.2 C 88 16 143/87 H 98 Room Air 04/12/25 08:07 36.7 C 67 18 143/90 H 98 Room Air 04/12/25 03:07 36.5 C 62 18 107/64 98 Room Air Laboratory Results 04/12/25 08:20 04/12/25 08:20
[2025-04-12] MEDS ORDERED: PROCHLORPERAZINE MALEATE 10 MG TAB PO PRN (15:51)
[2025-04-12] MEDS ORDERED: DICYCLOMINE HCL 10 MG CAP PO PRN (15:51)
[2025-04-12] MEDS ORDERED: APREPITANT 80 MG CAP PO PRN (15:51)
[2025-04-12] MEDS: LORazepam 0.5 MG TAB PO PRN (16:33)
[2025-04-13] MEDS ORDERED: HEPARIN 100 UNIT/ML 5ML FLUSH FLUSH PRN (03:35)
[2025-04-13 03:50] VITALS: RESP 18; O2SAT 98
[2025-04-13 06:46] LABS: Hematocrit (blood only) 28.4 % (42.0-52.0); Hemoglobin 9.9 g/dl (14.0-18.0); Mean Corpuscular Hemoglobin 30.7 pg (25.0-34.0); Mean Corpuscular Volume 87.9 fL (80.0-100.0); Platelet Count 238 K/uL (130-400); RDW Standard Deviation 43.8 fL (36.4-46.3); Red Blood Count 3.23 M/uL (4.70-6.10); White Blood Count 4.52 K/ul (4.8-10.8)
[2025-04-13 07:25] LABS: Anion Gap 6.0 (3-11); Blood Urea Nitrogen 8.0 mg/dl (6-23); Calcium 8.7 mg/dl (8.6-10.3); Carbon Dioxide 28.0 mmol/L (21-32); Chloride 102.0 mmol/L (98-107); Creatinine Clr Calc Pharmacy 91.9 ml/min; Glucose 100.0 mg/dl (70-99(Fasting)); Potassium 3.9 mmol/L (3.5-5.1); Sodium 136.0 mmol/L (136-145)
[2025-04-13 08:14] VITALS: PULSE 78; TEMP 98.2
[2025-04-13] MEDS: THIAMINE HCL 100 MG TAB PO SCH (08:35)
[2025-04-13] MEDS: FOLIC ACID 1 MG TAB PO SCH (08:35)
--- NOTE | 2025-04-13 10:39 | Discharge Summary ---
Discharge Summary Date of Service April 13, 2025 Principal Dx & Hospital Course #1 = Principal Diagnosis (1) Unwitnessed fall: (2) Nasal bone fractures: (3) Alcohol use disorder: (4) Marijuana use: (5) Leukocytosis: (6) Acute hyponatremia: (7) Hypomagnesemia: Plan 59 year old male with PMH significant for lower esophageal/GE junction invasive adenocarcinoma s/p neoadjuvant FLOT and total gastrectomy and Yeison-en-Y esophag ojejunal anastomosis [under observation with Dr. Cipriano Kuhn since 07/2023], severe malnutrition/moderate protein-calorie malnutrition with history of PEG tube placement in 2023, history of recurrent N/V, history of diverticulitis, chronic anemia/TU, trigeminal neuralgia and other problems as outlined in his chart who was admitted at [facility] from 04/11-04/13/2025 after an unwitnessed fall at home and was found to have nasal bone fractures and hyponatremia. Unwitnessed fall at home Nasal bone fractures Patient reports he "blacked out" and cannot recall details from the fall - likely due to alcohol intoxication Cervical spine CT: no acute cervical spine fx/subluxation Head CT: no acute intracranial abnormality or calvarial fx Head/neck CTA both unremarkable Face CT: comminuted bilateral nasal bone fxs with mildly displaced fragments and overlying soft tissue edema CTAP: no acute abnormality knowledge manager consulted and did not recommend treatment Acute hypotonic hyponatremia Likely due to underlying malnutrition and poor solute diet Na 126-> 124-> 129-> 136 on day of discharge Osmolality 266, urine osmolality 302, urine sodium 23 Nephrology consulted and recommended 1.5L fluid limit Encouraged patient to avoid excessive fluid intake especially in combination with poor solid intake Alcohol use disorder Chronic daily marijuana use Consumes full 12-pack of Twisted Tea every 2 days - reports he is ready to stop drinking but declined offer for case fitter to discuss outpatient resources Tox screen + for opiates (pt prescribed morphine for trigeminal neuralgia), marijuana (pt reports daily use) EtOH level 36.1 on presentation - patient exhibited no signs of withdrawal Continue folic acid Counseled patient extensively regarding alcohol cessation History of lower esophageal/GE junction invasive adenocarcinoma Severe malnutrition/moderate protein-calorie malnutrition, history of recurrent N/V Follows with Dr. Cipriano Kuhn of [facility] heme/onc S/p neoadjuvant FLOT and total gastrectomy and Yeison-en-Y esophagojejunal anastomosis Under observation since 07/2023 History of TU Continue ferrous sulfate Patient seen in collaboration with Dr Aponte. Please see addendum. Notes For Next Care Provider 59 year old male with significant PMH who was admitted at [facility] from 04/11- 04/13/2025 after an unwitnessed fall while intoxicated and was found to have nasal fractures and hyponatremia. Nasal fractures did not require intervention. Hyponatremia resolved with fluid restriction. Advised patient to avoid excessive fluid intake especially in combination with poor solid intake. Patient reports he is ready to quit drinking after this admission. Medication Changes From Visit None Admission HPI Per Admitting Provider Patient is a 59-year-old male with past medical history significant for lower esophageal/GE junction invasive adenocarcinoma s/p neoadjuvant FLOT and total gastrectomy and Yeison-en-Y esophagojejunal anastomosis [under observation with Dr. Cipriano Kuhn since 07/2023], severe malnutrition/moderate protein-calorie malnutrition with history of PEG tube placement in 2023, history recurrent N/V, history of diverticulitis, chronic anemia/TU, trigeminal neuralgia and other problems as outlined in his chart who presented to the ED via EMS s/p unwitnessed fall at home. History primarily obtained from the patient's , Latonia, at bedside. Patient sleepy but arousable, A&Ox2 - able to recall location, recognizes at bedside. Able to provide some supplemental information upon direct questioning. Additional history obtained from discussion with ED provider and associated chart review. Chronic alcohol use - typically consumes a full 12-pack of Twisted Tea every 2 days. Last drink yesterday evening around 8PM. Also with daily marijuana use since the age of 13. mentions he let both of their dogs outside last evening by accident but couldn't recall doing it as he was "too drunk and stoned." His left the house to locate the dogs and when she returned back home, around 10PM, she found him "passed out" in bed. That was the last time she saw him until around 7AM this morning when she went to check on him and he was slumped over on the side of their bed. She was able to arouse him enough to carry him over to a nearby chair and call EMS. Reports she saw lots of blood spattered around their bathroom, primarily on the toilet seat where it appears he slammed his head - as evidenced by a cut on his nose. Patient unable to recall exactly what occurred. Other than endorsing some mild upper abdominal pain and chronic bilateral hip pain, he offers no other major complaints. Takes morphine PRN for trigeminal neuralgia and hip pain but has not had any in about 4 days. Admission Exam Per Admitting Provider General: NAD, laying down in bed, sleepy but easily arousable, A&Ox3 with direct questioning but unable to recall MARKER HAND events, at bedside HEENT: Normocephalic, atraumatic, oropharynx somewhat dry Respiratory: Normal respiratory effort, CTAB Cardiovascular: RRR, normal peripheral pulses, no BLE edema Abdomen/GI: Active bowel sounds, soft/nondistended, mild TTP across upper abd region but no guarding Extremities/MSK: No cyanosis or clubbing, extremities motor strength intact, moves all extremities Neurologic: No overt focal deficits, CN's II-XI not formally tested but appear grossly intact bilaterally Discharge Exam General/Psych: WD/WN, sitting up in bed, NAD, conversing easily Head: normocephalic, atraumatic Eyes: normal inspection, PERRL, conjunctivae pink, anicteric sclerae ENT: external ear normal, nose is swollen, oropharynx normal Neck: normal visual inspection, trachea midline, no thyromegaly Respiratory: normal respiratory effort, lungs clear to auscultation, no wheeze/rales/rhonchi, no accessory muscle use Cardiovascular: regular rate and rhythm, no murmur/rub/gallop, no JVD Extremities: no cyanosis or clubbing, normal peripheral pulses, no BLE edema Abdomen/GI: normal bowel sounds, soft, nontender Neurologic/MSK: A+Ox3, motor strength 5/5, moves all extremities Skin: no rashes, normal color, warm and dry Updated Medication List Medication Instructions Recorded Confirmed Type escitalopram oxalate 10 mg tablet 10 mg PO QAM 12/22/23 04/11/25 History olanzapine 5 mg tablet (Zyprexa) 5 mg PO HS 12/22/23 04/11/25 History cholecalciferol (vitamin D3) 50 50 mcg PO DAILY 02/13/24 04/11/25 History mcg (2,000 unit) tablet (Vitamin D3) cyanocobalamin (vitamin B-12) 500 500 mcg PO DAILYBD 02/13/24 04/11/25 History mcg tablet (Vitamin B-12) aprepitant 80 mg capsule 80 mg PO DAILY PRN Nausea And 04/13/24 04/11/25 History Vomiting folic acid 1 mg tablet 1 mg PO QDL 04/13/24 04/11/25 History lorazepam 0.5 mg tablet 0.5 mg PO Q6H PRN Anxiety 04/13/24 04/11/25 History morphine concentrate 100 mg/5 mL 10 mg PO Q4H PRN Pain 04/13/24 04/11/25 History (20 mg/mL) oral solution prochlorperazine maleate 10 mg 10 mg PO Q6H PRN Nausea And 04/13/24 04/11/25 History tablet Vomiting ferrous sulfate 325 mg (65 mg 325 mg PO 3XWK 11/06/24 04/11/25 History iron) tablet ondansetron HCl 8 mg tablet 8 mg PO Q8H PRN Nausea And Vomiting 11/06/24 History dicyclomine 10 mg capsule 10 mg PO QID PRN abd pain 01/18/25 04/11/25 History magnesium 250 mg tablet 250 mg PO 4XWK 01/18/25 04/11/25 History pantoprazole 40 mg tablet,delayed 40 mg PO QAM 01/18/25 04/11/25 History release Hospital Stay Data Consultations 04/11/25 13:16 ED Decision to Admit Stat 04/11/25 14:24 Consult Oromaxillofacial Surgery Routine 04/12/25 07:27 Consult Nephrology Routine Diagnostic Imagining Performed Cervical Spine CT 04/11/25 08:52 CT SCAN OF THE CERVICAL SPINE CLINICAL HISTORY: Trauma. COMPARISON STUDY: None TECHNIQUE: CT scan of the cervical spine is performed from the skull base to the upper thoracic spine. Images are reviewed in the axial, sagittal, and coronal planes. IV contrast was not administered for this examination. A dose lowering technique was utilized adhering to the principles of ALARA. CT DOSE: 2022.87 mGy.cm FINDINGS: Skeletal structures: There is no evidence of fracture or subluxation involving the cervical spine. Vertebral body height and alignment are maintained. The odontoid process and lateral masses are intact. The atlantoaxial articulation is preserved. The spinous processes appear intact. There is moderate multilevel disc space narrowing, endplate osteophytosis and facet arthrosis within the cervical spine. Soft tissues: The prevertebral and paraspinous soft tissues are within normal limits. Calvarium: The visualized calvarium at the skull base appears intact. Brain parenchyma: Partially visualized brain parenchyma at the skull base is within normal limits. Lung apices: Clear as visualized. IMPRESSION: No acute cervical spine fracture or subluxation. ACT 112: Negative or not required by law. Electronically signed by: Mele Umanzor M.D. 04/11/2025 9:52 AM Chest X-Ray 04/11/25 08:52 XR chest 1V portable HISTORY: 59 years-old Male Trauma CT chest trauma COMPARISON: 01/30/2025 TECHNIQUE: AP view of the chest FINDINGS: Cardiomediastinal and hilar silhouettes are within normal limits. Right IJ [id number] catheter distal tip terminates in the expected location of the inferior SVC. No pneumothorax, pleural effusion, airspace consolidation or pulm onary edema. Chronic right-sided rib fractures. No acute rib fracture identified. IMPRESSION: No acute process. ACT 112: Negative or not required by law. The above report was generated using voice recognition software. It may contain grammatical, syntax or spelling errors. Electronically signed by: Lenny Day M.D. 04/11/2025 9:[address] 04/11/25 08:52 CT SCAN OF THE FACIAL BONES WITHOUT IV CONTRAST CLINICAL HISTORY: Trauma. COMPARISON STUDY: No priors TECHNIQUE: High-resolution CT scan of the facial bones is performed. Images are reviewed in the axial, sagittal, and coronal planes. IV contrast was not administered for this examination. A dose lowering technique was utilized adhering to the principles of ALARA. FINDINGS: The skeletal structures are osteopenic. There are comminuted bilateral nasal bone fractures with mildly displaced fragments and overlying soft tissue edema. No additional facial bone fracture is seen. The bony nasal septum appears intact noting rightward deviation. The bony orbits are intact and the orbital contents are within normal limits. The zygomatic arches and pterygoid plates are preserved. There is aries bullosa of the middle nasal turbinates. The maxilla and mandible are intact. There are scattered dental caries. There are no layering blood products within the paranasal sinuses. A 2.5 cm retention cyst is noted in the right maxillary antrum. Trace mucosal thickening is seen in the left maxillary sinus. Remaining paranasal sinuses are clear. The mastoid air cells are well pneumatized. Cerumen is noted in the external auditory canals. The visualized calvarium and upper cervical spine are maintained. Partially imaged brain parenchyma is within normal limits. Atherosclerotic calcification is noted in the carotid bulbs. IMPRESSION: Comminuted bilateral nasal bone fractures as above. ACT 112: Negative or not required by law. Electronically signed by: Brian Love M.D. 04/11/2025 10:[address] 04/11/25 08:52 CT head/brain wo con CLINICAL HISTORY: 59 years-old Male with Trauma. Acute head trauma TECHNIQUE: Multiple axial CT images of the head were obtained without contrast. A dose lowering technique was utilized adhering to the principles of ALARA. COMPARISON: None. FINDINGS: No acute intracranial hemorrhage, midline shift, intracranial mass, hydrocephalus, territorial ischemia or abnormal extra-axial collection. 1.2 cm hypodensity within the right lentiform nucleus on image 20 series 2 suggestive of a chronic lacunar infarct. Probable mild chronic microvascular ischemic disease. The calvarium is intact. 2.3 cm right maxillary sinus polyp. The mastoid air cells are clear. Angulated left nasal bone fractures, likely chronic. IMPRESSION: 1. No acute intracranial abnormality or calvarial fracture. 2. Angulated left nasal bone fracture, likely chronic. ACT 112: Negative or not required by law. The above report was generated using voice recognition software. It may contain grammatical, syntax or spelling errors. Electronically signed by: Lenny Day M.D. 04/11/2025 9:50 AM Chest CTA 04/11/25 10:13 CT ANGIOGRAM OF THE CHEST CLINICAL HISTORY: Trauma. Altered mental status. COMPARISON STUDY: Chest radiograph January 30, 2025 and chest radiograph performed earlier today. TECHNIQUE: Following the IV administration of 112 cc of Optiray 320, CT angiogram of the chest was performed from the upper abdomen to the thoracic inlet utilizing the pulmonary embolus protocol. Images are reviewed in the axial, sagittal, and coronal planes. 3-D MIPS images are created and assessed. IV contrast was administered without complication. A dose lowering technique was utilized adhering to the principles of ALARA. CT DOSE: 958.56 mGy.cm FINDINGS: No pulmonary emboli are identified. There is no thoracic aortic dissection. Moderate cardiomegaly is noted. Postoperative findings within the stomach are noted. There is a small hiatal hernia. There is moderate dilatation of the esophagus. No pneumothorax or pleural effusion is identified. Due to dif ficulty positioning, portions of the left chest wall are not included on this exam. No rib fractures are identified within visualized portions of the chest. There are no thoracic spine fractures. Subpleural ground glass opacities favor atelectasis. There are no suspicious pulmonary nodules. IMPRESSION: 1. No pulmonary emboli identified. 2. Cardiomegaly. 3. Small hiatal hernia with moderately dilated esophagus. 4. No acute traumatic findings within the chest although portions of the left chest wall not included due to difficulty positioning. ACT 112: Negative or not required by law. Electronically signed by: Mele Umanzor M.D. 04/11/2025 12:25 PM Head CTA 04/11/25 10:13 CT ANGIOGRAM OF THE BRAIN CLINICAL HISTORY: Change in mental status. Weakness. COMPARISON STUDY: Unenhanced CT of the brain performed earlier the same day at 04/11/2025 TECHNIQUE: Following the IV administration of 112 cc of Optiray 320, CT angiogram of the brain was performed from the skull base to the vertex. Images are reviewed in the axial, sagittal, and coronal planes. 3-D MIPS images are created and assessed. IV contrast was administered without complication. A dose lowering technique was utilized adhering to the principles of ALARA. FINDINGS: Brain parenchyma: There is age-related involutional change noting mild subcortical and periventricular microangiopathic disease. There is no evidence of hemorrhage or mass effect noting angiographic phase technique. There is no evidence of enhancing mass lesion on the angiogram phase images. No extra-axial fluid collection is seen. Hurley-white matter differentiation is preserved. Ventricles, sulci, and cisterns: Normal in configuration. CT angiogram of the brain: There is atherosclerotic calcification of the carotid bulbs. The internal carotid arteries at the skull base are patent, as are the anterior and middle cerebral arteries. The vertebrobasilar system and posterior cerebral arteries are patent. The right vertebral artery is dominant. There is no aneurysm, high-grade stenosis, or focal vessel cutoff identified throughout the intracranial circulation. Dural sinuses: Clear as visualized. Orbits: The bony orbits are intact. The orbital contents are normal as visualized. Sinuses and mastoids: A 2.5 cm retention cyst is seen in the right maxillary antrum. The remaining paranasal sinuses are clear. The mastoid air cells are well pneumatized. Cerumen is noted in the external auditory canals. Calvarium: The skeletal structures are osteopenic. The calvarium appears intact. There are comminuted bilateral nasal bone fractures. IMPRESSION: 1. There is no evidence of hemorrhage or mass effect noting angiographic phase technique. 2. Unremarkable CT angiogram of the brain. 3. Bilateral nasal bone fractures are again noted. ACT 112: Negative or not required by law. Electronically signed by: Brian Love M.D. 04/11/2025 11:58 AM Neck CTA 04/11/25 10:13 CT angio neck with con CLINICAL HISTORY: 59 years-old Male with Change in mental status, weakness, fall. Acute weakness with neck pain status post fall COMPARISON STUDY: CTA head of same day, CT cervical spine of same day TECHNIQUE: Following the IV administration of 112 of Optiray, CT angiogram of the neck was performed from the aortic arch to the skull base. Images are reviewed in the axial, sagittal, and coronal planes. 3-D MIPS images are created and assessed. IV contrast was administered without complication. All measurements were calculated based on NASCET criteria. A dose lowering technique was utilized adhering to the principles of ALARA. FINDINGS: Three-vessel morphology of the thoracic aortic arch. Widely patent common carotid arteries. Mild atherosclerosis of the carotid bulbs without significant stenosis. Patent and codominant vertebral arteries. No aneurysm, dissection, high-grade stenosis or arterial occlusion. Lung apices appear clear. Mild gaseous distention of the upper esophagus. Subcentimeter hypodense right-sided thyroid nodule. Soft tissues are within normal limits. Multilevel degenerative changes of the cervical spine. Right maxillary sinus polyp. IMPRESSION:Unremarkable CTA of the neck. ACT 112: Negative or not required by law. The above report was generated using voice recognition software. It may contain grammatical, syntax or spelling errors. Electronically signed by: Lenny Day M.D. 04/11/2025 12:01 PM Abdomen/Pelvis CT 04/11/25 14:15 Exam(s): CT ABDOMEN + PELVIS W/WO Contrast IV Amt: 90 ml optiray 320 EXAM: CT Abdomen and Pelvis Without and With Intravenous Contrast CLINICAL HISTORY: Reason for exam: Abd pain, nausea. TECHNIQUE: Axial computed tomography images of the abdomen and pelvis without and with intravenous contrast. CTDI is 14.5 mGy and DLP is 661.66 mGy-cm. Automated exposure control was utilized for the study. A dose lowering technique was utilized adhering to the principles of ALARA. Mild motion/artifact. CONTRAST: Patient received 90 ml optiray 320 of IV contrast COMPARISON: CT abdomen pelvis 04/04/2025. FINDINGS: Lung bases: Clear. Small hiatal hernia, stable. Liver: Unremarkable. Gallbladder and bile ducts: Normal, contracted gallbladder. No ductal dilation. Pancreas: No ductal dilation, or acute pancreatitis. Spleen: Unremarkable. Adrenals: Unremarkable. Kidneys and ureters: No pyelonephritis or hydronephrosis. Stomach and bowel: Portions of the small bowel show fluid and intermittent wall thickening that may be physiologic and artifact from underdistention. Mild entero colitis difficult to exclude in the setting. Postoperative change, the stomach is not seen. Diverticulosis without definite acute diverticulitis. No significant interval change. No obstruction. Appendix: Normal. Intraperitoneal space: No free air or fluid. Bones/joints: No acute fracture. Soft tissues: Unremarkable. Vasculature: No aortic aneurysm. Lymph nodes: No enlarged lymph nodes. Bladder: Unremarkable. Reproductive: Unremarkable as visualized. IMPRESSION: 1. Portions of the small bowel show fluid and intermittent wall thickening that may be physiologic and/or artifact from underdistention. Mild enterocolitis difficult to exclude in the setting. 2. No definite acute abnormality, and no significant interval change. 3. Diverticulosis again noted. Electronically signed by: Sharon Saavedra M.D. 04/11/25 20:46 PM Pending Results Patient Have Any Pending Studies at Discharge: No Discharge Instructions Given to Patient (Per Discharging Provider) You presented to the hospital after falling at home and were found to have nasal bone fractures. Fortunately, you had no other injuries from the fall. We consulted oral surgeon who did not feel that your fractures needed treatment since you had minimal pain and no problems breathing. You were found to have low sodium levels in your blood, likely because of too much fluid intake. We limited your intake of fluids and your sodium level returned to normal. We would advise that you avoid drinking excessively especially in combination with little food intake. We also advise avoidance of alcohol as this likely contributed to your fall and low sodium level. Total Time Total Time Spent Total Time Spent (In Minutes): I spent a total of 35 minutes coordinating, documenting and providing care for this patient excluding time spent in the performance of separately billed services or time spent by another provider/QHP. Supervising Physician Co-Signing Physician Notes Patient seen and examine Agree with findings and plans as detailed by Dian TONY
[2025-04-13 11:50] VITALS: BP 150/104
--- NOTE | 2025-04-16 09:00 | Coding Query ---
MALNUTRITION To promote full compliance with coding requirements relating to patient care, physician participation is requested in all cases of certified hearing instrument dispenser uncertainty. Please assist us with the question(s) below: Please place an X within the parenthesis (x). If other, please document: "severe malnutrition/moderate protein-calorie malnutrition " is documented in this record. If possible, please check the box that provides a more specific diagnosis: ( ) Mild malnutrition ( ) Moderate malnutrition ( ) Severe malnutrition ( ) Protein malnutrition (kwashiorkor) ( X) Severe protein calorie malnutrition ( ) Protein calorie malnutrition, unspecified ( ) Other (please specify): Thank you Lisbeth HANCOCK
--- NOTE | 2025-04-16 09:28 | Coding Query ---
CODING QUERY To promote full compliance with coding requirements relating to patient care, provider participation is requested in all cases of physiotherapy aide uncertainty. Please assist us with the question(s) below: Coding Question(s): Hyponatremia is documented through the record. The 04/12 Nephrology Consultation documents, "(1) Hyponatremia: Hypotonic hyponatremia most consistent with SIADH/malnutrition from low solute diet with presenting sodium 126, meg value 124 on day of admission April 11.". Please specify below, in your clinical opinion, regarding Hyponatremia: (X ) Agree with Hyponatremia being most consistent with SIADH ( ) Disagree with Hyponatremia being most consistent with SIADH Physician's Response(s): Thank you Lisbeth Santamaria Principal Diagnosis: "that condition established after study, to be chiefly responsible for occasioning the admission of the patient to the hospital for care." Co-Existing Principal Diagnosis: "when two or more diagnoses equally meet the criteria for principal diagnosis as determined by the circumstances of admission, diagnostic work up, and/or therapy provided, and the Alphabetic Index, Tabular List, or another coding guideline does not provide sequencing direction, any one of the diagnoses may be sequenced first." "When the physician has documented what appears to be a current diagnosis in the body of the record, but has not included the diagnosis in the final diagnostic statement, the physician should be asked whether the diagnosis should be added." (Source Coding Clinic 2 QTR90. p3-4) SANTI
[2025-04-16 15:02] LABS: Hydrocodone Urine NEGATIVE ng/mL (<50); Hydromor Urine NEGATIVE ng/mL (<50); Marijuana Quant, GCMS Urine 18 ng/mL (<5); Noroxycodone Urine NEGATIVE ng/mL (<50); Oxymorph Urine NEGATIVE ng/mL (<50)
== END 2025-04-13 12:14 | disposition home or self-care (01) | DRG 643 ==
LOC: ED 08:36 → EDINP 13:32 → SUATTDRO 13:32 → 2S 20:09

== ENCOUNTER 2025-04-25 17:26 | Observation (INO) ==
[2025-04-25 18:23] LABS: Hematocrit (blood only) 31.3 % (42.0-52.0); Hemoglobin 10.8 g/dl (14.0-18.0); Immature Granulocytes # (auto) 0.01 K/uL (0.01-0.20); Immature Granulocytes % (auto) 0.2 %; Mean Corpuscular Hemoglobin 29.8 pg (25.0-34.0); Mean Corpuscular Volume 86.5 fL (80.0-100.0); Platelet Count 272 K/uL (130-400); RDW Standard Deviation 43.8 fL (36.4-46.3); Red Blood Count 3.62 M/uL (4.70-6.10); White Blood Count 6.07 K/ul (4.8-10.8)
[2025-04-25 18:42] LABS: Alanine Aminotransferase 10 U/L (7-52); Albumin Globulin Ratio 1.8 (0.9-2); Alkaline Phosphatase 56 U/L (34-104); Anion Gap 14 (3-11); Bilirubin,Total 0.6 mg/dl (0.2-1.0); Blood Urea Nitrogen 8 mg/dl (6-23); Calcium 8.8 mg/dl (8.6-10.3); Carbon Dioxide 20 mmol/L (21-32); Chloride 105 mmol/L (98-107); Globulin 2.2 gm/dl (2.5-4.0); Glucose 123 mg/dl (70-99(Fasting)); Lipase 22 U/L (11-82); Potassium 3.4 mmol/L (3.5-5.1); Sodium 139 mmol/L (136-145); Total Protein 6.1 gm/dl (6.0-8.3)
[2025-04-25] MEDS: HYDROmorphone INJ 0.5 MG/0.5 ML SYR IV STA (18:50)
[2025-04-25] MEDS: ONDANSETRON INJ 2 MG/ML 2 ML VIAL IV STA (18:50)
[2025-04-25 18:55] LABS: Magnesium 1.4 mg/dl (1.7-2.4)
--- NOTE | 2025-04-25 19:24 | Emergency Department Note ---
ED Provider Note History of Present Illness Chief Complaint: Vomiting Stated Complaint: NAUSEA AND VOMITING Time Seen by Provider: 04/25/25 18:18 Source: patient and family Mode of arrival: ambulatory Limitations: no limitations Patient is a 59-year-old male who presents to the emergency department with complaints of severe abdominal pain, nausea and vomiting. Patient states that he had a gastrectomy in 2022 and has been having episodes every few weeks of severe abdominal pain, nausea and vomiting since then. Patient reports that he is typically hyponatremic and also has a history of diverticulitis. Patient takes oral morphine at home and notes that it is not helped with his discomfort. Home Medications Medication Instructions Recorded Confirmed Type escitalopram oxalate 10 mg tablet 10 mg PO QAM 12/22/23 04/25/25 History olanzapine 5 mg tablet (Zyprexa) 5 mg PO HS 12/22/23 04/25/25 History cholecalciferol (vitamin D3) 50 50 mcg PO DAILY 02/13/24 04/25/25 History mcg (2,000 unit) tablet (Vitamin D3) cyanocobalamin (vitamin B-12) 500 500 mcg PO DAILYBD 02/13/24 04/25/25 History mcg tablet (Vitamin B-12) aprepitant 80 mg capsule 80 mg PO DAILY PRN Nausea And 04/13/24 04/25/25 History Vomiting folic acid 1 mg tablet 1 mg PO QDL 04/13/24 04/25/25 History lorazepam 0.5 mg tablet 0.5 mg PO Q6H PRN Anxiety 04/13/24 04/25/25 History morphine concentrate 100 mg/5 mL 10 mg PO Q4H PRN Pain 04/13/24 04/25/25 History (20 mg/mL) oral solution prochlorperazine maleate 10 mg 10 mg PO Q6H PRN Nausea And 04/13/24 04/25/25 History tablet Vomiting ferrous sulfate 325 mg (65 mg 325 mg PO 3XWK 11/06/24 04/25/25 History iron) tablet ondansetron HCl 8 mg tablet 8 mg PO Q8H PRN Nausea And Vomiting 11/06/24 04/25/25 History dicyclomine 10 mg capsule 10 mg PO QID PRN abd pain 01/18/25 04/25/25 History magnesium 250 mg tablet 250 mg PO 4XWK 01/18/25 04/25/25 History pantoprazole 40 mg tablet,delayed 40 mg PO QAM 01/18/25 04/25/25 History release Allergies Allergy/AdvReac Type Severity Reaction Status Date / Time carbamazepine [From Tegretol] Allergy Mild Rash Verified 04/25/25 19:58 Past Med/Surg History Problem List (Updated 04/25/25 @ 22:29 by CHAVO Hancock) Leukocytosis Acute hyponatremia Marijuana use Alcohol use disorder Abrasion of nose (Acute) Elevated d-dimer (Acute) Weakness (Acute) Hyponatremia (Acute) Nasal bone fractures (Acute) Unwitnessed fall (Acute) Diverticulitis (Acute) Abnormal abdominal CT scan (Acute) Hypomagnesemia (Acute) Vomiting (Acute) Diffuse abdominal pain (Acute) Abdominal pain (Acute) Pancreatitis (Acute) Intractable nausea and vomiting (Acute) Medical History Acute diverticulitis Intractable nausea and vomiting History of esophageal cancer Severe malnutrition Anemia Esophageal cancer diagnosed 04/2023--chemo/ERCP 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 Edmonds/[facility] [place] Eduardo History of recent blood transfusion 05/02/23 @ [facility] Enteropathogenic Escherichia coli infection Hyponatremia Trigeminal neuralgia Hypomagnesemia Vomiting and diarrhea Iron deficiency received blood transfusion 05/02/23 @ [facility] Surgical History History of colonoscopy History of esophagogastroduodenoscopy (EGD) History of tooth extraction partial upper and lower denture History of ERCP 04/2023 @ [facility] [place] Eduardo History of vascular access device A port--power port in placed on right side of chest Family History Father Stroke Social History Smoking Status: Never smoker Tobacco Type: Cigarettes Second Hand Exposure: No; Do You Dip or Chew Tobacco: No; Hx Alcohol Use: Yes Alcohol type: beer Hx Substance Use: Yes Last Used Substance: Days (ago) Preferred Language: Icelandic Communication Ability: Effective Traffic Line Painter Required: No Beliefs That Will Affect Care: None marital status: Current Living Situation: Spouse Current Living Situation Comment: [place] Feels Safe at Home: Yes Assistive Devices: Cane Physical Exam Vital Signs Vital Signs - 24 hr 04/25/25 17:37 04/25/25 22:24 Temperature 36.8 C Temperature Source Temporal Artery Scan Pulse Rate 72 Pulse Rate [Finger] 55 L Respiratory Rate 16 16 Respiratory Effort / Characteristics Non-Labored Non-Labored Spontaneous Respiratory Depth Normal Normal Respiratory Pattern Regular Blood Pressure 168/99 H Blood Pressure [Right Arm] 113/79 Blood Pressure Mean 122 Blood Pressure Mean [Right Arm] 90 Pulse Oximetry 98 96 Oxygen Delivery Method Room Air Room Air Sepsis Recent Fever Within 48 Hours No Sepsis New/Unexplained Change in Mental Status N/A Sepsis Action Taken by Nursing No Action Required VITAL SIGNS - Vital signs and nursing notes were reviewed. GENERAL -59-year-old male appearing his stated age who is in no acute distress. Communicates well with provider and answers questions appropriately. HEAD - NC/AT. EYES - PERRL with EOMI bilaterally. Conjunctiva pink and moist with no injection noted. LUNGS - Chest wall symmetric without accessory muscle use, intercostals retractions, or central cyanosis. Breath sounds clear throughout all forrester. No wheezes, rales, or rhonchi appreciated. CARDIAC - RRR with S1/S2. No murmur, rubs, or gallops appreciated. ABDOMEN - Abdominal contour without pulsations or visible masses. Negative Millheim's or Lacy Chambers's Signs. BS present but hypoactive in all four quadrants. Increased tenderness to palpation appreciated throughout. No rebound Tenderness. No palpable masses, hepatosplenomegaly, or ascites noted. NEUROLOGIC - Sensory intact to light touch throughout. PSYCH - A&Ox3 and cooperates fully with examiner. Pt is very pleasant and interacts well with examiner. Course Administered Medications Discontinued Medications Hydromorphone HCl (Hydromorphone Inj 0.5 Mg/0.5 Ml Syr) 0.5 mg IV NOW STA Stop: 04/25/25 18:26 Last Admin: 04/25/25 18:50 Dose: 0.5 mg Documented By: CEF Hydromorphone HCl (Hydromorphone Inj 1 Mg/Ml Syringe) 1 mg IV NOW STA Stop: 04/25/25 19:20 Last Admin: 04/25/25 19:26 Dose: 1 mg Documented By: LOKI Hydromorphone HCl (Hydromorphone Inj 1 Mg/Ml Syringe) 1 mg IV NOW STA Stop: 04/25/25 20:33 Last Admin: 04/25/25 20:52 Dose: 1 mg Documented By: CHOCO Fosaprepitant 115 mg/ Sodium (Chloride) 115 mls @ 450 mls/hr IV ONE ONE Stop: 04/25/25 18:42 Last Infusion: 04/25/25 19:49 Dose: Infused Documented By: Admin: 04/25/25 19:27 Dose: 450 mls/hr Documented By: LOKI Acetaminophen (Ofirmev) 1,000 mg in 100 mls @ 400 mls/hr IV NOW STA Stop: 04/25/25 20:46 Last Infusion: 04/25/25 22:27 Dose: Infused Documented By: Admin: 04/25/25 20:51 Dose: 400 mls/hr Documented By: CHOCO Ioversol (Optiray 320 100ml) 90 ml IV ONCE ONE Stop: 04/25/25 20:10 Last Admin: 04/25/25 20:10 Dose: 90 ml Documented By: ZAINA Ondansetron HCl (Ondansetron Inj 2 Mg/Ml 2 Ml Vial) 4 mg IV NOW STA Stop: 04/25/25 18:47 Last Admin: 04/25/25 18:50 Dose: 4 mg Documented By: SANTO Medical Decision Making Differential Diagnosis Differential diagnoses includes gastritis, gastroenteritis, IBS, small bowel obstruction, pancreatitis, peritonitis, constipation, abdominal abcess, diverticulitis, colitis, among others. Medical Records Attestation: I reviewed the patient's medical records. Home Medications was personally reviewed by me Laboratory Data Attestation: I reviewed the patient's lab results. 04/25/25 18:12 04/25/25 18:12 Lab Results 04/25/25 04/25/25 Range/Units 18:12 19:13 WBC 6.07 (4.8-10.8) K/ul RBC 3.62 L (4.70-6.10) M/uL Hgb 10.8 L (14.0-18.0) g/dl Hct 31.3 L (42.0-52.0) % MCV 86.5 (80.0-100.0) fL MCH 29.8 (25.0-34.0) pg MCHC 34.5 (32.0-36.0) g/dL RDW Std Deviation 43.8 (36.4-46.3) fL RDW Coeff of Stone 14.0 (11.5-14.5) % Plt Count 272 (130-400) K/uL MPV 10.2 (9.4-12.4) fL Immature Gran % (Auto) 0.2 % Neut % (Auto) 73.7 % Lymph % (Auto) 15.5 % Callahan % (Auto) 9.4 % Eos % (Auto) 0.7 % Baso % (Auto) 0.5 % Neut # (Auto) 4.48 (1.40-6.50) K/uL Lymph # (Auto) 0.94 L (1.20-3.40) K/uL Callahan # (Auto) 0.57 (0.11-0.59) K/uL Eos # (Auto) 0.04 (0.00-0.50) K/uL Baso # (Auto) 0.03 (0.00-0.20) K/uL Immature Gran # (Auto) 0.01 (0.01-0.20) K/uL Sodium 139 (136-145) mmol/L Potassium 3.4 L (3.5-5.1) mmol/L Chloride 105 (98-107) mmol/L Carbon Dioxide 20 L (21-32) mmol/L Anion Gap 14 H (3-11) BUN 8 (6-23) mg/dl Creatinine 0.69 (0.6-1.4) mg/dl Est Cr Clr Drug Dosing Not Reportable eGFR 105.94 BUN/Creatinine Ratio 11.6 (10-20) Glucose 123 H (70-99(Fasting)) mg/dl Calcium 8.8 (8.6-10.3) mg/dl Magnesium 1.4 L (1.7-2.4) mg/dl Total Bilirubin 0.6 (0.2-1.0) mg/dl AST 14 (13-39) U/L ALT 10 (7-52) U/L Alkaline Phosphatase 56 (34-104) U/L Total Protein 6.1 (6.0-8.3) gm/dl Albumin 3.9 (3.4-5.0) gm/dl Globulin 2.2 L (2.5-4.0) gm/dl Albumin/Globulin Ratio 1.8 (0.9-2) Lipase 22 (11-82) U/L Ethyl Alcohol mg/dL < 10.0 (<10.0) mg/dl Imaging Data Radiologist's Impression: Abdomen/Pelvis CT 04/25/25 18:26 Exam(s): CT ABDOMEN + PELVIS With Contrast IV Amt: 90 ml optiray 320 EXAM: CT Abdomen and Pelvis With Intravenous Contrast CLINICAL HISTORY: severe abd pain. TECHNIQUE: Axial computed tomography images of the abdomen and pelvis with intravenous contrast. CTDI is 7.39 mGy and DLP is 323.61 mGy-cm. Automated exposure control was utilized for the study. A dose lowering technique was utilized adhering to the principles of ALARA. CONTRAST: Patient received 90 ml optiray 320 of IV contrast COMPARISON: 04-11-2025 FINDINGS: Lung bases: Unremarkable. No mass. No consolidation. ABDOMEN: Liver: Unremarkable. No mass. Gallbladder and bile ducts: Unremarkable. No calcified stones. No ductal dilation. Pancreas: Unremarkable. No mass. No ductal dilation. Spleen: Unremarkable. No splenomegaly. Adrenals: Unremarkable. No mass. Kidneys and ureters: No obstructive uropathy. No obstructing renal or ureteral calculi. No hydronephrosis or hydroureter. Stomach and bowel: Small hiatal hernia. Redemonstrated gastric sutures. Nondilated small bowel with mild diffuse wall thickening. Slightly prominent distal small bowel/terminal ileum with wall thickening extending to the thick-walled cecum No obstruction or ileus. Sigmoid colon diverticulosis with mild wall thickening and mild surrounding infiltration. PELVIS: Appendix: No findings to suggest acute appendicitis. Bladder: Moderately distended. No mass. Reproductive: Unremarkable as visualized. ABDOMEN and PELVIS: Intraperitoneal space: No free air. No free fluid. Bones/joints: No acute fracture. Degenerative changes of the spine. Soft tissues: Unremarkable. Vasculature: Atherosclerotic vascular calcifications. No abdominal aortic aneurysm. Lymph nodes: Unremarkable. No enlarged lymph nodes. IMPRESSION: No obstruction or ileus. Nondilated small bowel with mild diffuse wall thickening. Slightly prominent distal small bowel/terminal ileum with wall thickening extending to the thick-walled cecum consistent with a entero colitis. Sigmoid colon diverticulosis with mild wall thickening and mild surrounding infiltration, slightly increased. This may represent part of a more generalized colitis versus diverticulitis. Otherwise no change. Electronically signed by: Jose Gerard M.D. 04/25/25 21:30 PM [facility] Narrative Patient is a 59-year-old male who presents to the emergency department with complaints of severe abdominal pain, nausea and vomiting. Patient states that he had a gastrectomy in 2022 and has been having episodes every few weeks of severe abdominal pain, nausea and vomiting since then. Patient reports that he is typically hyponatremic and also has a history of diverticulitis. Patient takes oral morphine at home and notes that it is not helped with his discomfort. Patient was evaluated by myself and findings were noted in the physical exam above. Patient was ordered IV placement, lab work, urinalysis and IV Dilaudid and Emend. Patient was also ordered a CT of the abdomen pelvis. Patient states that the only thing that helps with his nausea significantly is the Emend, however he was also ordered a dose of Zofran until that could be brought up by the pharmacy. Patient's lab work resulted with a normal white blood cell count of 6.07. Patient had mild anemia with a hemoglobin of 10.8 and hematocrit of 31.3. Patient had very mildly low potassium at 3.4. Patient's sodium was normal today at 139. Patient also had a mildly low magnesium level of 1.4. Otherwise the patient's lab work was unremarkable. Upon reevaluation the patient states that he is not having any relief from the dose of Dilaudid. Patient was given a subsequent dose of Dilaudid. Upon subsequent reevaluation of the patient he notes that the Dilaudid is starting to help with the pain but he still having severe pain. The emend has significantly improved his nausea. Patient had a CT of the abdomen pelvis that was completed and interpreted by radiology to show no obstruction or ileus. There was some slightly prominent distal small bowel with wall thickening consistent with an enterocolitis. Patient has sigmoid colon diverticulosis with mild wall thickening and mild surrounding ulceration that is slightly increased, though diffuse and appears colitis versus diverticulitis. Upon reevaluation again the patient notes that he still having a significant amount of pain and is ordered a third dose of Dilaudid. Patient reports that after the third dose of Dilaudid that he is feeling little bit better. I discussed with the patient the options of discharge home with his pain medications at home versus admission to the hospital. The patient reports that he is concerned that he would be able to control his pain at home and with the patient's significant history felt that admission may be a more reasonable option. I felt that this was a reasonable plan. I spoke with Dr. Zuleta from the [facility] hospitalist team and gave him a full report of the patient's chief complaint, current status and the results of his imaging and lab work. Dr. Zuleta agreed to accept the patient for admission under his service. Please refer the past to hospitalist team documentation for further evaluation and management of this patient. Impression Intractable nausea and vomiting, Abdominal pain Discharge Plan Visit Data Chief Complaint: Vomiting Stated Complaint: NAUSEA AND VOMITING ED Provider: Huan Soriano ED Midlevel Provider: Karen Nowak Discharge Problem: Intractable nausea and vomiting, Abdominal pain Patient Disposition: Admitted As Inpatient Condition: Fair Forms Stand Alone Forms: On License Of [facility], Important Visit Information Prescriptions Prescriptions: No Action cyanocobalamin (vitamin B-12) [Vitamin B-12] 500 mcg Tablet 500 mcg PO DAILYBD cholecalciferol (vitamin D3) [Vitamin D3] 50 mcg (2,000 unit) Tablet 50 mcg PO DAILY magnesium 250 mg Tablet 250 mg PO 4XWK pantoprazole 40 mg tablet,delayed release (DR/EC) 40 mg PO QAM dicyclomine 10 mg capsule 10 mg PO QID PRN (Reason: abd pain) Rx Instructions: reports typically takes once a day olanzapine [Zyprexa] 5 mg tablet 5 mg PO HS escitalopram oxalate 10 mg tablet 10 mg PO QAM morphine concentrate 100 mg/5 mL (20 mg/mL) solution 10 mg PO Q4H PRN (Reason: Pain) Hold Instructions: Resume on 12/11/24. Rx Instructions: 0.5 ML q4h prn prochlorperazine maleate 10 mg tablet 10 mg PO Q6H PRN (Reason: Nausea And Vomiting) lorazepam 0.5 mg tablet 0.5 mg PO Q6H PRN (Reason: Anxiety) folic acid 1 mg tablet 1 mg PO QDL aprepitant 80 mg capsule 80 mg PO DAILY PRN (Reason: Nausea And Vomiting) ondansetron HCl 8 mg tablet 8 mg PO Q8H PRN (Reason: Nausea And Vomiting) ferrous sulfate 325 mg (65 mg iron) Tablet 325 mg PO 3XWK Hold Instructions: Resume on 12/14/24. Rx Instructions: Mon/Tue/Tue Referrals Referrals: Thaddeus Solis MD [Primary Care Provider] - ED DC CONDITION Conditon at Discharge Condition at Discharge: Fair Discharge Problem: Abdominal pain Qualifiers: Abdominal location: generalized Qualified Code(s): R10.84 - Generalized abdominal pain
[2025-04-25] MEDS: HYDROmorphone INJ 1 MG/ML SYRINGE IV STA ×2 (19:26→20:52)
[2025-04-25] MEDS: FOSAPREPITANT DIMEGLUMINE IV ONE (19:27)
[2025-04-25] MEDS: SODIUM CHLORIDE 0.9% IV ONE (19:27)
[2025-04-25] MEDS: OPTIRAY 320 100ml IV ONE (20:10)
[2025-04-25] MEDS: ACETAMINOPHEN 1,000 MG/100 ML VIAL IV STA (20:51)
--- NOTE | 2025-04-25 21:31 | CT Scan Report ---
Exam(s): CT ABDOMEN + PELVIS With Contrast IV Amt: 90 ml optiray 320 EXAM: CT Abdomen and Pelvis With Intravenous Contrast CLINICAL HISTORY: severe abd pain. TECHNIQUE: Axial computed tomography images of the abdomen and pelvis with intravenous contrast. CTDI is 7.39 mGy and DLP is 323.61 mGy-cm. Automated exposure control was utilized for the study. A dose lowering technique was utilized adhering to the principles of ALARA. CONTRAST: Patient received 90 ml optiray 320 of IV contrast COMPARISON: 04-11-2025 FINDINGS: Lung bases: Unremarkable. No mass. No consolidation. ABDOMEN: Liver: Unremarkable. No mass. Gallbladder and bile ducts: Unremarkable. No calcified stones. No ductal dilation. Pancreas: Unremarkable. No mass. No ductal dilation. Spleen: Unremarkable. No splenomegaly. Adrenals: Unremarkable. No mass. Kidneys and ureters: No obstructive uropathy. No obstructing renal or ureteral calculi. No hydronephrosis or hydroureter. Stomach and bowel: Small hiatal hernia. Redemonstrated gastric sutures. Nondilated small bowel with mild diffuse wall thickening. Slightly prominent distal small bowel/terminal ileum with wall thickening extending to the thick-walled cecum No obstruction or ileus. Sigmoid colon diverticulosis with mild wall thickening and mild surrounding infiltration. PELVIS: Appendix: No findings to suggest acute appendicitis. Bladder: Moderately distended. No mass. Reproductive: Unremarkable as visualized. ABDOMEN and PELVIS: Intraperitoneal space: No free air. No free fluid. Bones/joints: No acute fracture. Degenerative changes of the spine. Soft tissues: Unremarkable. Vasculature: Atherosclerotic vascular calcifications. No abdominal aortic aneurysm. Lymph nodes: Unremarkable. No enlarged lymph nodes. IMPRESSION: No obstruction or ileus. Nondilated small bowel with mild diffuse wall thickening. Slightly prominent distal small bowel/terminal ileum with wall thickening extending to the thick-walled cecum consistent with a entero colitis. Sigmoid colon diverticulosis with mild wall thickening and mild surrounding infiltration, slightly increased. This may represent part of a more generalized colitis versus diverticulitis. Otherwise no change. Electronically signed by: Jose Gerard M.D. 04/25/25 21:30 PM
[2025-04-25] MEDS ORDERED: LORazepam 0.5 MG TAB PO PRN (23:30)
[2025-04-25] MEDS ORDERED: DICYCLOMINE HCL 10 MG CAP PO PRN (23:30)
[2025-04-25] MEDS: HYDROmorphone INJ 0.5 MG/0.5 ML SYR IV PRN (23:45)
[2025-04-25] MEDS: LACTATED RINGER'S 1,000 ML IV SCH (23:49)
[2025-04-25 23:56] VITALS: O2SAT 98
[2025-04-26] MEDS: ENOXAPARIN INJ 40 MG/0.4 ML SYR SQ SCH (00:01)
[2025-04-26] MEDS: ONDANSETRON INJ 2 MG/ML 2 ML VIAL IV PRN (00:08)
--- NOTE | 2025-04-26 04:19 | History & Physical Report ---
Date of Service April 25, 2025 Assessment & Plan (1) Abdominal pain: Plan: 59-year-old male with past medical history significant for lower esophageal/GE junction invasive adenocarcinoma status post neoadjuvant FLOT and total gastrectomy and Yeison-en-Y gastrojejunal anastomosis currently under observation,' history of severe malnutrition/moderate protein calorie malnutrition with history of PEG tube placement in 2023, history of recurrent nausea /vomiting, history of diverticulitis, chronic anemia, trigeminal neuralgia, history of electrolyte abnormalities presents with nausea vomiting abdominal pain. Patient states since last couple of days having nausea vomiting and severe abdominal pain. After antiemetics and pain medication currently his symptoms improved. Patient states takes morphine for chronic pain at home. And was constipated. But had normal bowel movement yesterday. He denies any blood in the stools. Micturating okay. Denies any chest pain or shortness of breath. No cough. No headache or runny nose or sore throat. Currently resting comfortably and hemodynamically stable. Abdominal pain Nausea and vomiting CT scan showing generalized colitis Clears for now Gentle fluids Pain control Antiemetics as needed Consult GI in a.m. for further recommendation Hypomagnesia and hypokalemia Will replace History of low esophageal/GE junction invasive adenocarcinoma History of recurrent nausea vomiting Status post neoadjuvant FLOT and total gastrectomy Follows with heme-onc and currently under observation since 07/2023 Anemia History of iron deficiency anemia On iron supplements. On vitamin B12 and folic acid History of gastrectomy Hemoglobin 10.8. Around baseline we will follow labs Malnutrition History of gastrectomy Dietitian consult when stable Depression and anxiety On Lexapro. On Zyprexa. On Ativan as needed GERD On Protonix Chronic pain Morphine as needed DVT prophylaxis Lovenox Disposition Medical floor Full code. History of Present Illness Chief Complaint: Nausea vomiting and abdominal pain Primary Care Provider: Thaddeus Solis MD 59-year-old male with past medical history significant for lower esophageal/GE junction invasive adenocarcinoma status post neoadjuvant FLOT and total gastrectomy and Yeison-en-Y gastrojejunal anastomosis currently under observation,' history of severe malnutrition/moderate protein calorie malnutrition with history of PEG tube placement in 2023, history of recurrent nausea /vomiting, history of diverticulitis, chronic anemia, trigeminal neuralgia, history of electrolyte abnormalities presents with nausea vomiting abdominal pain. Patient states since last couple of days having nausea vomiting and severe abdominal pain. After antiemetics and pain medication currently his symptoms improved. Patient states takes morphine for chronic pain at home. And was constipated. But had normal bowel movement yesterday. He denies any blood in the stools. Micturating okay. Denies any chest pain or shortness of breath. No cough. No headache or runny nose or sore throat. Currently resting comf ortably and hemodynamically stable. Past medical history. As mentioned above. Past surgical history. Colonoscopy. EGD. EGD with endoscopic ultrasound. Craniectomy suboccipital exploration. Gastrectomy total with esophagogastrostomy. Spinal puncture drainage CSF. Social history. . Smokes cigars infrequently. Social drinking. History of marijuana use. Family history. Father had stroke. Allergies Allergy/AdvReac Type Severity Reaction Status Date / Time carbamazepine [From Tegretol] Allergy Mild Rash Verified 04/25/25 19:58 Home Medications Medication Instructions Recorded Confirmed Type escitalopram oxalate 10 mg tablet 10 mg PO QAM 12/22/23 04/25/25 History olanzapine 5 mg tablet (Zyprexa) 5 mg PO HS 12/22/23 04/25/25 History cholecalciferol (vitamin D3) 50 50 mcg PO DAILY 02/13/24 04/25/25 History mcg (2,000 unit) tablet (Vitamin D3) cyanocobalamin (vitamin B-12) 500 500 mcg PO DAILYBD 02/13/24 04/25/25 History mcg tablet (Vitamin B-12) aprepitant 80 mg capsule 80 mg PO DAILY PRN Nausea And 04/13/24 04/25/25 History Vomiting folic acid 1 mg tablet 1 mg PO QDL 04/13/24 04/25/25 History lorazepam 0.5 mg tablet 0.5 mg PO Q6H PRN Anxiety 04/13/24 04/25/25 History morphine concentrate 100 mg/5 mL 10 mg PO Q4H PRN Pain 04/13/24 04/25/25 History (20 mg/mL) oral solution prochlorperazine maleate 10 mg 10 mg PO Q6H PRN Nausea And 04/13/24 04/25/25 History tablet Vomiting ferrous sulfate 325 mg (65 mg 325 mg PO 3XWK 11/06/24 04/25/25 History iron) tablet ondansetron HCl 8 mg tablet 8 mg PO Q8H PRN Nausea And Vomiting 11/06/24 04/25/25 History dicyclomine 10 mg capsule 10 mg PO QID PRN abd pain 01/18/25 04/25/25 History magnesium 250 mg tablet 250 mg PO 4XWK 01/18/25 04/25/25 History pantoprazole 40 mg tablet,delayed 40 mg PO QAM 01/18/25 04/25/25 History release Past Med/Surg History Problem List (Updated 04/26/25 @ 07:47 by Zain Zuleta MD) Abdominal pain Leukocytosis Acute hyponatremia Marijuana use Alcohol use disorder Abrasion of nose (Acute) Elevated d-dimer (Acute) Weakness (Acute) Hyponatremia (Acute) Nasal bone fractures (Acute) Unwitnessed fall (Acute) Diverticulitis (Acute) Abnormal abdominal CT scan (Acute) Hypomagnesemia (Acute) Vomiting (Acute) Diffuse abdominal pain (Acute) Abdominal pain (Acute) Pancreatitis (Acute) Intractable nausea and vomiting (Acute) Medical History Acute diverticulitis Intractable nausea and vomiting History of esophageal cancer Severe malnutrition Anemia Esophageal cancer diagnosed 04/2023--chemo/ERCP 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 Edmonds/[facility] History of recent blood transfusion 05/02/23 @ [facility] Enteropathogenic Escherichia coli infection Hyponatremia Trigeminal neuralgia Hypomagnesemia Vomiting and diarrhea Iron deficiency received blood transfusion 05/02/23 @ [facility] Surgical History History of colonoscopy History of esophagogastroduodenoscopy (EGD) History of tooth extraction partial upper and lower denture History of ERCP 04/2023 @ [facility] Eduardo History of vascular access device A port--power port in placed on right side of chest Family History Father Stroke Social History Smoking Status: Never smoker Tobacco Type: Cigarettes Second Hand Exposure: No; Do You Dip or Chew Tobacco: No; Tobacco Cessation Education Requested by Patient: No Hx Alcohol Use: Yes Alcohol type: hard liquor Hx Substance Use: No Preferred Language: Thai Communication Ability: Effective Automotive Brake Adjuster Required: No Beliefs That Will Affect Care: None marital status: Current Living Situation: Spouse Current Living Situation Comment: [place] Other Information That Helps Us Care for You: No Feels Safe at Home: Yes Safety Concerns: Feels Safe At This Time Assistive Devices: Cane Review of Systems Review of Systems: All systems reviewed & are unremarkable except as noted in HPI & below Physical Exam Physical Exam: General- Not in distress Head- atraumatic Eyes- PERRL. ENT- oropharynx clear Neck- supple, no JVD. Lungs- clear to auscultation no wheezing or crackles Heart- regular rhythm; no murmur, no gallop. Abdomen- normal bowel sounds, soft, mild diffuse discomfort, no distension Extremities- no pretibial edema, no erythema seen Neuro- alert, oriented PERRL, no facial palsy; no dysarthria; moves extremities Results & Data Results & Data Vital Signs (Past 12 Hours) Vital Signs Temp Pulse Pulse Resp BP BP Pulse Ox 04/25/25 22:24 55 L 16 113/79 96 04/25/25 17:37 36.8 C 72 16 168/99 H 98 O2 Del Method 04/25/25 22:24 Room Air 04/25/25 17:37 Room Air Diagnostic Findings Laboratory Results WBC 6.07 K/ul (4.8-10.8) 04/25/25 18:12 RBC 3.62 M/uL (4.70-6.10) L 04/25/25 18:12 Hgb 10.8 g/dl (14.0-18.0) L 04/25/25 18:12 Hct 31.3 % (42.0-52.0) L 04/25/25 18:12 MCV 86.5 fL (80.0-100.0) 04/25/25 18:12 MCH 29.8 pg (25.0-34.0) 04/25/25 18:12 MCHC 34.5 g/dL (32.0-36.0) 04/25/25 18:12 RDW Std Deviation 43.8 fL (36.4-46.3) 04/25/25 18:12 RDW Coeff of Stone 14.0 % (11.5-14.5) 04/25/25 18:12 Plt Count 272 K/uL (130-400) 04/25/25 18:12 MPV 10.2 fL (9.4-12.4) 04/25/25 18:12 Immature Gran % (Auto) 0.2 % 04/25/25 18:12 Neut % (Auto) 73.7 % 04/25/25 18:12 Lymph % (Auto) 15.5 % 04/25/25 18:12 Irion % (Auto) 9.4 % 04/25/25 18:12 Eos % (Auto) 0.7 % 04/25/25 18:12 Baso % (Auto) 0.5 % 04/25/25 18:12 Neut # (Auto) 4.48 K/uL (1.40-6.50) 04/25/25 18:12 Lymph # (Auto) 0.94 K/uL (1.20-3.40) L 04/25/25 18:12 Irion # (Auto) 0.57 K/uL (0.11-0.59) 04/25/25 18:12 Eos # (Auto) 0.04 K/uL (0.00-0.50) 04/25/25 18:12 Baso # (Auto) 0.03 K/uL (0.00-0.20) 04/25/25 18:12 Immature Gran # (Auto) 0.01 K/uL (0.01-0.20) 04/25/25 18:12 Sodium 139 mmol/L (136-145) 04/25/25 18:12 Potassium 3.4 mmol/L (3.5-5.1) L 04/25/25 18:12 Chloride 105 mmol/L (98-107) 04/25/25 18:12 Carbon Dioxide 20 mmol/L (21-32) L 04/25/25 18:12 Anion Gap 14 (3-11) H 04/25/25 18:12 BUN 8 mg/dl (6-23) 04/25/25 18:12 Creatinine 0.69 mg/dl (0.6-1.4) 04/25/25 18:12 Est Cr Clr Drug Dosing Not Reportable 04/25/25 18:12 eGFR 105.94 04/25/25 18:12 BUN/Creatinine Ratio 11.6 (10-20) 04/25/25 18:12 Glucose 123 mg/dl (70-99(Fasting)) H 04/25/25 18:12 Calcium 8.8 mg/dl (8.6-10.3) 04/25/25 18:12 Magnesium 1.4 mg/dl (1.7-2.4) L 04/25/25 18:12 Total Bilirubin 0.6 mg/dl (0.2-1.0) 04/25/25 18:12 AST 14 U/L (13-39) 04/25/25 18:12 ALT 10 U/L (7-52) 04/25/25 18:12 Alkaline Phosphatase 56 U/L (34-104) 04/25/25 18:12 Total Protein 6.1 gm/dl (6.0-8.3) 04/25/25 18:12 Albumin 3.9 gm/dl (3.4-5.0) 04/25/25 18:12 Globulin 2.2 gm/dl (2.5-4.0) L 04/25/25 18:12 Albumin/Globulin Ratio 1.8 (0.9-2) 04/25/25 18:12 Lipase 22 U/L (11-82) 04/25/25 18:12 Ethyl Alcohol mg/dL < 10.0 mg/dl (<10.0) 04/25/25 19:13 Impressions Abdomen/Pelvis CT 04/25/25 18:26 Exam(s): CT ABDOMEN + PELVIS With Contrast IV Amt: 90 ml optiray 320 EXAM: CT Abdomen and Pelvis With Intravenous Contrast CLINICAL HISTORY: severe abd pain. TECHNIQUE: Axial computed tomography images of the abdomen and pelvis with intravenous contrast. CTDI is 7.39 mGy and DLP is 323.61 mGy-cm. Automated exposure control was utilized for the study. A dose lowering technique was utilized adhering to the principles of ALARA. CONTRAST: Patient received 90 ml optiray 320 of IV contrast COMPARISON: 04-11-2025 FINDINGS: Lung bases: Unremarkable. No mass. No consolidation. ABDOMEN: Liver: Unremarkable. No mass. Gallbladder and bile ducts: Unremarkable. No calcified stones. No ductal dilation. Pancreas: Unremarkable. No mass. No ductal dilation. Spleen: Unremarkable. No splenomegaly. Adrenals: Unremarkable. No mass. Kidneys and ureters: No obstructive uropathy. No obstructing renal or ureteral calculi. No hydronephrosis or hydroureter. Stomach and bowel: Small hiatal hernia. Redemonstrated gastric sutures. Nondilated small bowel with mild diffuse wall thickening. Slightly prominent distal small bowel/terminal ileum with wall thickening extending to the thick-walled cecum No obstruction or ileus. Sigmoid colon diverticulosis with mild wall thickening and mild surrounding infiltration. PELVIS: Appendix: No findings to suggest acute appendicitis. Bladder: Moderately distended. No mass. Reproductive: Unremarkable as visualized. ABDOMEN and PELVIS: Intraperitoneal space: No free air. No free fluid. Bones/joints: No acute fracture. Degenerative changes of the spine. Soft tissues: Unremarkable. Vasculature: Atherosclerotic vascular calcifications. No abdominal aortic aneurysm. Lymph nodes: Unremarkable. No enlarged lymph nodes. IMPRESSION: No obstruction or ileus. Nondilated small bowel with mild diffuse wall thickening. Slightly prominent distal small bowel/terminal ileum with wall thickening extending to the thick-walled cecum consistent with a entero colitis. Sigmoid colon diverticulosis with mild wall thickening and mild surrounding infiltration, slightly increased. This may represent part of a more generalized colitis versus diverticulitis. Otherwise no change. Electronically signed by: Jose Gerard M.D. 04/25/25 21:30 PM Code Status & VTE Plan VTE Prophylaxis Plan VTE Prophylaxis will be ordered: Yes
[2025-04-26] MEDS: PROMETHAZINE 12.5 MG/50.5 ML BAG IV PRN (04:26)
[2025-04-26] MEDS: MAGNESIUM SULFATE / D5W 1 GM/100 ML BAG IV SCH (04:59)
[2025-04-26] MEDS: POTASSIUM CHLORIDE CRTAB 20 MEQ TABCR PO STA (05:01)
[2025-04-26] MEDS: CHOLECALCIFEROL 25 MCG (1000 UNITS) TAB PO SCH (08:18)
[2025-04-26] MEDS: ESCITALOPRAM OXALATE 10 MG TAB PO SCH (08:19)
[2025-04-26] MEDS: FERROUS SULFATE 325 MG TAB PO SCH (08:19)
[2025-04-26] MEDS: MAGNESIUM OXIDE 400 MG TAB PO SCH (08:40)
--- NOTE | 2025-04-26 08:41 | Gastrointestinal Consultation ---
Date of Consultation April 26, 2025 Supervising Physician Co-Signing Physician Notes Consult was canceled History of Present Illness History of Present Illness GI consult was cancelled by hospitalist. Recall GI if consult is re-requested. Allergies Allergy/AdvReac Type Severity Reaction Status Date / Time carbamazepine [From Tegretol] Allergy Mild Rash Verified 04/25/25 19:58 Home Medications Medication Instructions Recorded Confirmed Type escitalopram oxalate 10 mg tablet 10 mg PO QAM 12/22/23 04/25/25 History olanzapine 5 mg tablet (Zyprexa) 5 mg PO HS 12/22/23 04/25/25 History cholecalciferol (vitamin D3) 50 50 mcg PO DAILY 02/13/24 04/25/25 History mcg (2,000 unit) tablet (Vitamin D3) cyanocobalamin (vitamin B-12) 500 500 mcg PO DAILYBD 02/13/24 04/25/25 History mcg tablet (Vitamin B-12) aprepitant 80 mg capsule 80 mg PO DAILY PRN Nausea And 04/13/24 04/25/25 History Vomiting folic acid 1 mg tablet 1 mg PO QDL 04/13/24 04/25/25 History lorazepam 0.5 mg tablet 0.5 mg PO Q6H PRN Anxiety 04/13/24 04/25/25 History morphine concentrate 100 mg/5 mL 10 mg PO Q4H PRN Pain 04/13/24 04/25/25 History (20 mg/mL) oral solution prochlorperazine maleate 10 mg 10 mg PO Q6H PRN Nausea And 04/13/24 04/25/25 History tablet Vomiting ferrous sulfate 325 mg (65 mg 325 mg PO 3XWK 11/06/24 04/25/25 History iron) tablet ondansetron HCl 8 mg tablet 8 mg PO Q8H PRN Nausea And Vomiting 11/06/24 04/25/25 History dicyclomine 10 mg capsule 10 mg PO QID PRN abd pain 01/18/25 04/25/25 History magnesium 250 mg tablet 250 mg PO 4XWK 01/18/25 04/25/25 History pantoprazole 40 mg tablet,delayed 40 mg PO QAM 01/18/25 04/25/25 History release docusate sodium 100 mg capsule 100 mg PO DAILY #30 caps 04/26/25 Rx polyethylene glycol 3350 17 gram 17 g PO DAILY #30 ea 04/26/25 Rx oral powder packet (Miralax) Patient History Medical History Acute diverticulitis Intractable nausea and vomiting History of esophageal cancer Severe malnutrition Anemia Esophageal cancer diagnosed 04/2023--chemo/ERCP 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 [facility] of [facility] transfusion 05/02/23 @ [facility] Enteropathogenic Escherichia coli infection Hyponatremia Trigeminal neuralgia Hypomagnesemia Vomiting and diarrhea Iron deficiency received blood transfusion 05/02/23 @ [facility] Surgical History History of colonoscopy History of esophagogastroduodenoscopy (EGD) History of tooth extraction partial upper and lower denture History of ERCP 04/2023 @ [facility] [place] History of vascular access device A port--power port in placed on right side of chest Family History Father Stroke Social History Smoking Status: Never smoker Tobacco Type: Cigarettes Second Hand Exposure: No; Do You Dip or Chew Tobacco: No; Tobacco Cessation Education Requested by Patient: No Hx Alcohol Use: Yes Alcohol type: hard liquor Hx Substance Use: No Preferred Language: Luxembourger Communication Ability: Effective Grab Setter Required: No Beliefs That Will Affect Care: None marital status: Current Living Situation: Spouse Current Living Situation Comment: [place] Other Information That Helps Us Care for You: No Feels Safe at Home: Yes Safety Concerns: Feels Safe At This Time Assistive Devices: Cane Results & Data Vital Signs (Past 12 Hours) Vital Signs Temp Pulse Resp BP Pulse Ox O2 Del Method 04/26/25 07:23 97.7 F 67 17 165/86 H 98 Room Air 04/25/25 23:20 98.4 F 62 16 118/75 98 Room Air 04/25/25 23:20 98.4 F 62 16 118/75 98 Room Air 04/25/25 23:07 Room Air 04/25/25 23:02 51 L 16 98/56 L 96 Room Air 04/25/25 22:24 55 L 16 113/79 96 Room Air PG Care Time/CCT Total # of Minutes Spent Total Time Spent with Patient: Total time spent is greater than 50% in coordination of care (as documented) at patient's floor/unit and/or counseling patient: Coding Level of Care Code None
[2025-04-26 08:48] LABS: Appearance Urine Clear (Clear); Bacteria Urine Automated None Seen (None Seen); Cast Urine Automated 0-2 /lpf (0-2); Epithelial Cell Urine Auto 0-2 /hpf (0-2); Glucose Urine UA Negative (Negative); RBC Urine Automated 0-2 /hpf (0-2); WBC Urine Automated 0-5 /hpf (0-5)
[2025-04-26 09:47] LABS: Anion Gap 6.0 (3-11); Blood Urea Nitrogen 7.0 mg/dl (6-23); Calcium 8.2 mg/dl (8.6-10.3); Carbon Dioxide 25.0 mmol/L (21-32); Chloride 107.0 mmol/L (98-107); Creatinine Clr Calc Pharmacy 91.1 ml/min; Glucose 119.0 mg/dl (70-99(Fasting)); Magnesium 2.2 mg/dl (1.7-2.4); Potassium 3.8 mmol/L (3.5-5.1); Sodium 138.0 mmol/L (136-145)
[2025-04-26] MEDS: POLYETHYLENE (MIRALAX) 17 GM PACK PO SCH (10:12)
[2025-04-26] MEDS: DOCUSATE SODIUM 100 MG CAP PO SCH (10:25)
[2025-04-26] MEDS: HEPARIN 100 UNIT/ML 5ML FLUSH FLUSH PRN (10:25)
[2025-04-26] MEDS: MoRPHine SULFATE 10 MG/0.5 ML UDP PO PRN (10:25)
[2025-04-26] MEDS: FOLIC ACID 1 MG TAB PO SCH (12:18)
--- NOTE | 2025-04-26 13:27 | Discharge Summary ---
Discharge Summary Date of Service April 26, 2025 Principal Dx & Hospital Course #1 = Principal Diagnosis (1) Constipation by delayed colonic transit: (2) Intractable nausea and vomiting: (3) Esophageal cancer: (4) Severe malnutrition: Plan Patient 59-year-old gentleman with significant history of recurrent nausea vomiting and abdominal pain all in association with a known history of esophageal cancer that has had several surgeries. Patient presented to the emergency room with abdominal pain nausea and vomiting. Patient was admitted to the hospital for concerns of his ongoing abdominal pain. Was given some IV fluid hydration. He was put on brief bowel rest. By the following morning patient symptoms had significantly improved. He reports that he was struggling with some constipation earlier in the week. He took some fiber Gummies to try and get his bowels moving which was successful but then started with this abdominal pain. He does take morphine intermittently for chronic pain issues. He is not on any regular bowel regimen. His electrolytes were replaced. His diet was advanced. He was started on a scheduled bowel regimen of MiraLAX and Colace. He tolerated this well. He had no further abdominal pain. He ate his full lunch without any nausea and vomiting. His electrolytes had improved any to be discharged home to outpatient care and follow-up. Notes For Next Care Provider Continue to encourage a routine bowel regimen Consider monitoring electrolytes in 10 to 14 days Medication Changes From Visit MiraLAX daily Colace daily Magnesium dose 2 times daily Admission HPI Per Admitting Provider 59-year-old male with past medical history significant for lower esophageal/GE junction invasive adenocarcinoma status post neoadjuvant FLOT and total gastrectomy and Yeison-en-Y gastrojejunal anastomosis currently under observation,' history of severe malnutrition/moderate protein calorie malnutrition with history of PEG tube placement in 2023, history of recurrent nausea /vomiting, history of diverticulitis, chronic anemia, trigeminal neuralgia, history of electrolyte abnormalities presents with nausea vomiting abdominal pain. Patient states since last couple of days having nausea vomiting and severe abdominal pain. After antiemetics and pain medication currently his symptoms improved. Patient states takes morphine for chronic pain at home. And was constipated. But had normal bowel movement yesterday. He denies any blood in the stools. Micturating okay. Denies any chest pain or shortness of breath. No cough. No headache or runny nose or sore throat. Currently resting comfortably and hemodynamically stable. Past medical history. As mentioned above. Past surgical history. Colonoscopy. EGD. EGD with endoscopic ultrasound. Craniectomy suboccipital exploration. Gastrectomy total with esophagogastrostomy. Spinal puncture drainage CSF. Social history. . Smokes cigars infrequently. Social drinking. History of marijuana use. Family history. Father had stroke. Admission Exam Per Admitting Provider See H&P Discharge Exam Constitutional: Alert, nontoxic, underweight HEENT: Mucous membranes moist. Lungs: Clear to auscultation, decreased, no wheezes rales or rhonchi CV: S1-S2, regular, port in right chest Abdomen: Soft, nontender, nondistended Extremities: No significant edema Neuro: No focal deficits Psych: Cooperative, normal mood Updated Medication List Medication Instructions Recorded Confirmed Type escitalopram oxalate 10 mg tablet 10 mg PO QAM 12/22/23 04/25/25 History olanzapine 5 mg tablet (Zyprexa) 5 mg PO HS 12/22/23 04/25/25 History cholecalciferol (vitamin D3) 50 50 mcg PO DAILY 02/13/24 04/25/25 History mcg (2,000 unit) tablet (Vitamin D3) cyanocobalamin (vitamin B-12) 500 500 mcg PO DAILYBD 02/13/24 04/25/25 History mcg tablet (Vitamin B-12) aprepitant 80 mg capsule 80 mg PO DAILY PRN Nausea And 04/13/24 04/25/25 History Vomiting folic acid 1 mg tablet 1 mg PO QDL 04/13/24 04/25/25 History lorazepam 0.5 mg tablet 0.5 mg PO Q6H PRN Anxiety 04/13/24 04/25/25 History morphine concentrate 100 mg/5 mL 10 mg PO Q4H PRN Pain 04/13/24 04/25/25 History (20 mg/mL) oral solution prochlorperazine maleate 10 mg 10 mg PO Q6H PRN Nausea And 04/13/24 04/25/25 History tablet Vomiting ferrous sulfate 325 mg (65 mg 325 mg PO 3XWK 11/06/24 04/25/25 History iron) tablet ondansetron HCl 8 mg tablet 8 mg PO Q8H PRN Nausea And Vomiting 11/06/24 04/25/25 History dicyclomine 10 mg capsule 10 mg PO QID PRN abd pain 01/18/25 04/25/25 History pantoprazole 40 mg tablet,delayed 40 mg PO QAM 01/18/25 04/25/25 History release docusate sodium 100 mg capsule 100 mg PO DAILY #30 caps 04/26/25 Rx magnesium 250 mg tablet 250 mg PO BID #60 tabs 04/26/25 Rx polyethylene glycol 3350 17 gram 17 g PO DAILY #30 ea 04/26/25 Rx oral powder packet (Miralax) Hospital Stay Data Consultations 04/25/25 21:41 ED Decision to Admit Stat Diagnostic Imagining Performed 04/25/25 18:26 CT Abd and Pelvis [CT abd pelvis IV con only] Stat Reviewed imaging, laboratory and diagnostic studies. Pertinent findings as below. WBC 6.0 Hemoglobin 10.8 Platelets of 272 Potassium 3.8 Creatinine 0.66 Phosphorus 3.2 Magnesium 2.2 Lipase 22 Alcohol level less than 10 Pending Results Patient Have Any Pending Studies at Discharge: No Discharge Instructions Given to Patient (Per Discharging Provider) I suspect your symptoms are due to your intermittent constipation. Due to the fact that you do need some pain medications intermittently you will continually struggle with constipation. I recommend that you are on a daily bowel regimen which has been ordered for you. Total Time Total Time Spent Total Time Spent (In Minutes): 35
[2025-04-26 15:10] VITALS: BP 107/68; PULSE 57; RESP 16; TEMP 97.9
[2025-04-26] MEDS: CYANOCOBALAMIN (B-12) 500 MCG TABLET PO SCH (15:19)
[2025-04-27] MEDS ORDERED: MAGNESIUM OXIDE 400 MG TAB PO SCH (09:00)
== END 2025-04-26 17:03 | disposition home or self-care (01) ==
LOC: ED 17:26 → 3N 22:29 → INTOOBSV 22:29 → 3N 23:07

== ENCOUNTER 2025-04-27 12:38 | Inpatient (IN) ==
[2025-04-27] MEDS: SODIUM CHLORIDE 0.9% 1,000 ML IV ONE ×2 (13:03→13:28)
--- NOTE | 2025-04-27 13:06 | Emergency Department Note ---
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 Patient admitted to this facility prior to that from 04/11-04/13. They report that the patient had a symptoms controlled yesterday when he left the hospital but symptoms have returned. Denies any fevers, chills, cough, congestion. On evaluation patient is uncomfortable no acute distress, afebrile with heart in the upper 50s and blood pressure 150s/90s and vital signs otherwise stable. He appears clinically dry. There is no crepitus on palpation of the neck or chest. He exhibits generalized abdominal discomfort without discrete tenderness. EKG without overt acute ischemia. CXR negative for acute cardiopulmonary process per my personal preliminary review/interpretation. WBC and platelets within normal limits. H/H similar to an improved from prior. Chemistry without metabolic acidosis. LFTs unremarkable. Magnesium 1.4 with IV repletion provided. Electrolytes otherwise unremarkable. High-sensitivity troponin 3.7, within normal limits. Lipase is normal. CT of the abdomen pelvis was performed and was unchanged from recent where suggestion of nonspecific enteritis is described. Patient did experience some improvement in his symptoms following IV fluid hydration and numerous medications including IV APAP, diphenhydramine, Reglan, famotidine, dicyclomine, Haldol and normal saline as well as topical capsaicin. His dry heaving had resolved. However he did report continued severe abdominal pain. Patient does agree with plan for admission for further management. IV morphine was administered given the patient's report of intractable pain. Patient is aware that his pain may be related to poor motility in the setting of his chronic narcotics and associated constipation. [facility] the [facility] for [facility]. Further management per admitting team. Triage Nursing notes reviewed and agree them. Prior/external medical records reviewed Vital Signs: reviewed Differential diagnosis: Gastroenteritis, food borne illness, infections, appendicitis, diverticulitis, inflammatory bowel disease, obstruction, GI bleed, biliary pathology, volvulus, as well as other pathologies. ER treatment provided: See below. Diagnostics interpreted by me: ECG: Sinus bradycardia, 56 bpm, no ectopy, no overt ST elevation or depression, QTc 438, QRS 78 Cardiac Monitoring: An order for continuous cardiac monitoring was placed and demonstrated Sinus bradycardia, 56 bpm, no ectopy Laboratory studies: See below Imaging studies: See below Consultation(s[facility] HPI: Per MDM. ROS: See above HPI for pertinent positives & negatives. A total of 10 systems reviewed and were otherwise negative. VITALS:See Below PHYSICAL EXAMINATION: GENERAL: Awake, alert, uncomfortable-appearing, in no distress, cachectic HENT: Normocephalic, atraumatic. Oropharynx with dry mucous membranes and otherwise unremarkable NECK: Supple. No nuchal rigidity. FROM. No JVD. RESPIRATORY: Clear to auscultation. Extremities warm and well perfused. Pulses equal. ABDOMEN: Soft, non-distended. No tenderness to palpation. No rebound or guarding. No masses. MUSCULOSKELETAL: Chest examination reveals no tenderness. The back is symmetrical on inspection without obvious abnormality. There is no CVA tenderness to palpation. No joint edema. LOWER EXTREMITIES: Calves are equal size bilaterally and non-tender. No edema. No discoloration. NEURO: Normal sensorium. No sensory or motor deficits noted. SKIN: No rash or jaundice noted. Vlad Voss MD Past Med/Surg History Problem List (Updated 04/27/25 @ 21:47 by Vlad Voss MD) Hypomagnesemia (Acute) Melena Constipation by delayed colonic transit Abdominal pain (Acute) Leukocytosis Acute hyponatremia Marijuana use Alcohol use disorder Abrasion of nose (Acute) Elevated d-dimer (Acute) Weakness (Acute) Hyponatremia (Acute) Nasal bone fractures (Acute) Unwitnessed fall (Acute) Diverticulitis (Acute) Abnormal abdominal CT scan (Acute) Hypomagnesemia (Acute) Vomiting (Acute) Diffuse abdominal pain (Acute) Abdominal pain (Acute) Pancreatitis (Acute) Intractable nausea and vomiting (Acute) Medical History Acute diverticulitis Intractable nausea and vomiting History of esophageal cancer Severe malnutrition Anemia Esophageal cancer diagnosed 04/2023--chemo/ERCP 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 Edmonds/[facility] History of recent blood transfusion 05/02/23 @ [facility] Enteropathogenic Escherichia coli infection Hyponatremia Trigeminal neuralgia Hypomagnesemia Vomiting and diarrhea Iron deficiency received blood transfusion 05/02/23 @ [facility] Surgical History History of colonoscopy History of esophagogastroduodenoscopy (EGD) History of tooth extraction partial upper and lower denture History of ERCP 04/2023 @ [facility] History of vascular access device A port--power port in placed on right side of chest Family History Father Stroke Social History Smoking Status: Never smoker Tobacco Type: Cigarettes Second Hand Exposure: No; Do You Dip or Chew Tobacco: No; Hx Alcohol Use: Yes Alcohol type: hard liquor Hx Substance Use: No Preferred Language: Austrian Communication Ability: Effective Feed 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 Required: No Beliefs That Will Affect Care: None marital status: Current Living Situation: Spouse Current Living Situation Comment: [place] Feels Safe at Home: Yes Assistive Devices: Cane Allergies Allergies Allergy/AdvReac Type Severity Reaction Status Date / Time carbamazepine [From Tegretol] Allergy Mild Rash Verified 04/27/25 15:07 Home Meds Home Medications Medication Instructions Recorded Confirmed escitalopram oxalate 10 mg tablet 10 mg PO QAM 12/22/23 04/27/25 olanzapine 5 mg tablet (Zyprexa) 5 mg PO HS 12/22/23 04/27/25 cholecalciferol (vitamin D3) 50 50 mcg PO DAILY 02/13/24 04/27/25 mcg (2,000 unit) tablet (Vitamin D3) cyanocobalamin (vitamin B-12) 500 500 mcg PO DAILYBD 02/13/24 04/27/25 mcg tablet (Vitamin B-12) aprepitant 80 mg capsule 80 mg PO DAILY PRN Nausea And 04/13/24 04/27/25 Vomiting folic acid 1 mg tablet 1 mg PO QDL 04/13/24 04/27/25 lorazepam 0.5 mg tablet 0.5 mg PO Q6H PRN Anxiety 04/13/24 04/27/25 morphine concentrate 100 mg/5 mL 10 mg PO Q4H PRN Pain 04/13/24 04/27/25 (20 mg/mL) oral solution prochlorperazine maleate 10 mg 10 mg PO Q6H PRN Nausea And 04/13/24 04/27/25 tablet Vomiting ferrous sulfate 325 mg (65 mg 325 mg PO 3XWK 11/06/24 04/27/25 iron) tablet ondansetron HCl 8 mg tablet 8 mg PO Q8H PRN Nausea And Vomiting 11/06/24 04/27/25 dicyclomine 10 mg capsule 10 mg PO QID PRN abd pain 01/18/25 04/27/25 pantoprazole 40 mg tablet,delayed 40 mg PO QAM 01/18/25 04/27/25 release Previous Rx's Medication Instructions Recorded docusate sodium 100 mg capsule 100 mg PO DAILY #30 caps 04/26/25 magnesium 250 mg tablet 250 mg PO BID #60 tabs 04/26/25 polyethylene glycol 3350 17 gram 17 g PO DAILY #30 ea 04/26/25 oral powder packet (Miralax) Results & Data (ED) Vital Signs Vital Signs - 24 hr 04/27/25 12:41 04/27/25 13:04 04/27/25 13:07 Temperature 36.7 C Temperature Source Temporal Artery Scan Pulse Rate 63 58 L Pulse Rate [Apical] Pulse Rate from SpO2 Sensor Respiratory Rate 20 Blood Pressure 158/94 H 176/103 H Blood Pressure [Right Arm] Blood Pressure Mean 115 141 Blood Pressure Mean [Right Arm] Pulse Oximetry 100 Oxygen Delivery Method Room Air Sepsis New/Unexplained Change in Mental Status N/A Sepsis Action Taken by Nursing No Action Required 04/27/25 13:11 04/27/25 13:24 04/27/25 13:36 Temperature Temperature Source Pulse Rate 60 60 Pulse Rate [Apical] Pulse Rate from SpO2 Sensor 60 60 Respiratory Rate 20 28 H Blood Pressure Blood Pressure [Right Arm] Blood Pressure Mean Blood Pressure Mean [Right Arm] Pulse Oximetry 100 100 100 Oxygen Delivery Method Room Air Sepsis New/Unexplained Change in Mental Status Sepsis Action Taken by Nursing 04/27/25 14:14 04/27/25 15:00 04/27/25 15:00 Temperature Temperature Source Pulse Rate 57 L Pulse Rate [Apical] 56 L Pulse Rate from SpO2 Sensor Respiratory Rate 18 26 H Blood Pressure 178/102 H Blood Pressure [Right Arm] 179/101 H Blood Pressure Mean 142 Blood Pressure Mean [Right Arm] 127 Pulse Oximetry Oxygen Delivery Method Room Air Sepsis New/Unexplained Change in Mental Status Sepsis Action Taken by Nursing 04/27/25 16:00 04/27/25 17:11 04/27/25 18:00 Temperature Temperature Source Pulse Rate 52 L Pulse Rate [Apical] 59 L 55 L Pulse Rate from SpO2 Sensor Respiratory Rate 16 16 Blood Pressure Blood Pressure [Right Arm] 150/102 H 115/67 Blood Pressure Mean Blood Pressure Mean [Right Arm] 118 83 Pulse Oximetry 100 95 Oxygen Delivery Method Room Air Room Air Sepsis New/Unexplained Change in Mental Status Sepsis Action Taken by Nursing 04/27/25 20:00 04/27/25 21:03 Temperature Temperature Source Pulse Rate 59 L Pulse Rate [Apical] 52 L Pulse Rate from SpO2 Sensor Respiratory Rate 16 Blood Pressure Blood Pressure [Right Arm] 108/63 Blood Pressure Mean Blood Pressure Mean [Right Arm] 78 Pulse Oximetry 96 Oxygen Delivery Method Room Air Sepsis New/Unexplained Change in Mental Status Sepsis Action Taken by Nursing Laboratory Data Attestation: I reviewed the patient's lab results. 04/27/25 13:06 04/27/25 13:06 Lab Results 04/27/25 04/27/25 04/27/25 Range/Units 13:06 14:47 16:06 WBC 5.74 (4.8-10.8) K/ul RBC 4.17 L (4.70-6.10) M/uL Hgb 12.3 L (14.0-18.0) g/dl Hct 35.8 L (42.0-52.0) % MCV 85.9 (80.0-100.0) fL MCH 29.5 (25.0-34.0) pg MCHC 34.4 (32.0-36.0) g/dL RDW Std Deviation 43.6 (36.4-46.3) fL RDW Coeff of Stone 14.0 (11.5-14.5) % Plt Count 296 (130-400) K/uL MPV 10.0 (9.4-12.4) fL Immature Gran % (Auto) 0.5 % Neut % (Auto) 77.9 % Lymph % (Auto) 13.6 % [place] % (Auto) 7.3 % Eos % (Auto) 0.2 % Baso % (Auto) 0.5 % Neut # (Auto) 4.47 (1.40-6.50) K/uL Lymph # (Auto) 0.78 L (1.20-3.40) K/uL [place] # (Auto) 0.42 (0.11-0.59) K/uL Eos # (Auto) 0.01 (0.00-0.50) K/uL Baso # (Auto) 0.03 (0.00-0.20) K/uL Immature Gran # (Auto) 0.03 (0.01-0.20) K/uL Sodium 136 (136-145) mmol/L Potassium 3.5 (3.5-5.1) mmol/L Chloride 103 (98-107) mmol/L Carbon Dioxide 22 (21-32) mmol/L Anion Gap 11 (3-11) BUN 7 (6-23) mg/dl Creatinine 0.69 (0.6-1.4) mg/dl Est Cr Clr Drug Dosing 91.6 ml/min eGFR 105.94 BUN/Creatinine Ratio 10.1 (10-20) Glucose 116 H (70-99(Fasting)) mg/dl Calcium 9.0 (8.6-10.3) mg/dl Magnesium 1.4 L (1.7-2.4) mg/dl Total Bilirubin 0.7 (0.2-1.0) mg/dl AST 16 (13-39) U/L ALT 9 (7-52) U/L Alkaline Phosphatase 61 (34-104) U/L Troponin I High Sens 3.7 (0-20) pg/ml Total Protein 6.5 (6.0-8.3) gm/dl Albumin 3.9 (3.4-5.0) gm/dl Globulin 2.6 (2.5-4.0) gm/dl Albumin/Globulin Ratio 1.5 (0.9-2) Lipase 41 (11-82) U/L Urine Opiates Screen Pos H (Neg) Ur Methadone, Qual Neg (Neg) Urine Fentanyl Screen Neg (Neg) Urine Barbiturates Neg (Neg) Ur Phencyclidine (PCP) Neg (Neg) U Amphetamin/Meth Scrn Neg (Neg) MDMA (Ecstasy) Screen Neg (Neg) U Benzodiazepines Scrn Neg (Neg) Ur Cocaine Metabolite Neg (Neg) U Marijuana (THC) Screen Neg (Neg) Ethyl Alcohol mg/dL < 10.0 (<10.0) mg/dl Administered Medications Discontinued Medications Capsaicin (Capsaicin Cr 0.075% 60 Gm Tube) 1 appln EXT NOW STA Stop: 04/27/25 15:22 Last Admin: 04/27/25 16:03 Dose: 1 appln Documented By: BALDO Dicyclomine HCl (Dicyclomine Hcl 10 Mg/Ml 2 Ml Amp/Vial) 20 mg IM NOW ONE Stop: 04/27/25 15:22 Last Admin: 04/27/25 15:59 Dose: 20 mg Documented By: BALDO Diphenhydramine HCl (Diphenhydramine 50 Mg/Ml Vial) 50 mg IV NOW STA Stop: 04/27/25 13:05 Last Admin: 04/27/25 13:21 Dose: 50 mg Documented By: NEPTALI Hydromorphone HCl (Hydromorphone Inj 0.5 Mg/0.5 Ml Syr) 0.5 mg IV NOW STA Stop: 04/27/25 21:22 Last Admin: 04/27/25 21:26 Dose: 0.5 mg Documented By: BALDO Sodium Chloride (Nss) 1,000 mls @ 999 mls/hr IV .Q1H1M ONE Stop: 04/27/25 13:48 Last Infusion: 04/27/25 15:42 Dose: Infused Documented By: Admin: 04/27/25 13:03 Dose: 999 mls/hr Documented By: NEPTALI Sodium Chloride (Nss) 1,000 mls @ 999 mls/hr IV .Q1H1M ONE Stop: 04/27/25 14:04 Last Infusion: 04/27/25 15:42 Dose: Infused Documented By: Admin: 04/27/25 13:28 Dose: 999 mls/hr Documented By: NEPTALI Acetaminophen (Ofirmev) 1,000 mg in 100 mls @ 400 mls/hr IV NOW STA Stop: 04/27/25 13:18 Last Infusion: 04/27/25 13:37 Dose: Infused Documented By: Admin: 04/27/25 13:22 Dose: 400 mls/hr Documented By: NEPTALI Famotidine (Pepcid 20mg Iv Push) 20 mg in 5 mls @ 2.5 mls/min IV NOW STA Stop: 04/27/25 13:05 Last Admin: 04/27/25 13:21 Dose: 2.5 mls/min Documented By: NEPTALI Magnesium Sulfate/Dextrose (Magnesium Sulfate / D5w) 1 gm in 100 mls @ 100 mls/hr IV NOW STA Stop: 04/27/25 14:43 Last Infusion: 04/27/25 15:42 Dose: Infused Documented By: Admin: 04/27/25 14:14 Dose: 100 mls/hr Documented By: THANG Haloperidol Lactate 5 mg/ (Sodium Chloride) 501 mls @ 999 mls/hr IV NOW STA Stop: 04/27/25 15:54 Last Infusion: 04/27/25 16:41 Dose: Infused Documented By: Admin: 04/27/25 15:59 Dose: 999 mls/hr Documented By: BALDO Ioversol (Optiray 320 100ml) 93 ml IV ONCE ONE Stop: 04/27/25 14:01 Last Admin: 04/27/25 14:01 Dose: 93 ml Documented By: EVIN Metoclopramide HCl (Metoclopramide Hcl Inj 5 Mg/Ml 2 Ml Vial) 10 mg IV NOW STA Stop: 04/27/25 13:05 Last Admin: 04/27/25 13:21 Dose: 10 mg Documented By: NEPTALI Morphine Sulfate (Morphine Sulfate 10 Mg/Ml Carp/Vial) 6 mg IV NOW STA Stop: 04/27/25 17:44 Last Admin: 04/27/25 17:57 Dose: 6 mg Documented By: BALDO Ondansetron HCl (Ondansetron Inj 2 Mg/Ml 2 Ml Vial) 4 mg IV NOW STA Stop: 04/27/25 21:22 Last Admin: 04/27/25 21:27 Dose: 4 mg Documented By: BALDO Imaging Data Radiologist's Impression: Chest X-Ray 04/27/25 12:45 Chest radiograph, one view History: Postreduction. Comparison: April 11, 2025. Findings: Thoracic inlet limited secondary to superimposed lower facial structures. Right chest port catheter unchanged. Cardiomediastinal silhouette is within normal limits. Lung volumes are prominent. Lungs are clear. No acute pleural disease. Pulmonary vasculature is within normal limits. Impression: Limited thoracic inlet with no appreciated acute process. Lateral view would be helpful. Electronically signed by Jaswinder Bahena 04-27-2025 4:08 PM Abdomen/Pelvis CT 04/27/25 13:05 Exam: CT abdomen/pelvis with IV contrast. Reason for exam: Abdominal pain with nausea and vomiting. Previous studies: CT abdomen/pelvis 04/25/2025. FINDINGS: The lower lung zones remain free of acute disease. Small sharply demarcated nodule in the anterior left hepatic lobe most compatible with cyst unchanged since the previous study. No biliary tract dilatation noted. Metallic clip noted in the upper abdomen although the gallbladder remains present. Staple line appears to be from previous gastric bypass. Small hiatal hernia remains present. Pancreas and spleen are unremarkable. Adrenal glands are unremarkable. Kidneys unremarkable. Scattered vascular calcifications seen in the aorta without aneurysm. Bowel pattern is nonspecific without evidence of bowel obstruction or. Diverticulosis again seen in the sigmoid. Again there is a mild wall thickening of the distal small bowel which is nonspecific but may indicate enteritis, without bowel obstruction. Mild wall thickening also seen in the sigmoid colon without focal active diverticulitis. Mild diffuse thickening of the wall of the urinary bladder is noted. Bladder is mildly distended. Otherwise no pelvic mass, adenopathy or free fluid is seen. IMPRESSION: 1. Essentially stable appearance as compared to the previous study of 04/25/2025. 2. Mild mural thickening of the distal small bowel and colon particularly the sigmoid, suggesting possible nonspecific enteritis. No evidence of bowel obstruction or free air. Follow-up small bowel series and/or capsule endoscopy recommended for further evaluation. 3. Mild diverticulosis. 4. Small hiatal hernia. 5. Mild diffuse thickening of the wall of the urinary bladder. Electronically signed by Rad Ponce 04-27-2025 5:25 PM Discharge Plan Visit Data Chief Complaint: Illness Stated Complaint: VOMITING, SEVERE INTESTINE PAIN, COLONIST, ED Provider: Vlad Voss Discharge Problem: Intractable nausea and vomiting, Abdominal pain, Hypomagnesemia Patient Disposition: Home - Self-Care Condition: Fair Forms Stand Alone Forms: My [facility], Important Visit Information Prescriptions Prescriptions: No Action cyanocobalamin (vitamin B-12) [Vitamin B-12] 500 mcg Tablet 500 mcg PO DAILYBD cholecalciferol (vitamin D3) [Vitamin D3] 50 mcg (2,000 unit) Tablet 50 mcg PO DAILY pantoprazole 40 mg tablet,delayed release (DR/EC) 40 mg PO QAM dicyclomine 10 mg capsule 10 mg PO QID PRN (Reason: abd pain) Rx Instructions: reports typically takes once a day olanzapine [Zyprexa] 5 mg tablet 5 mg PO HS escitalopram oxalate 10 mg tablet 10 mg PO QAM morphine concentrate 100 mg/5 mL (20 mg/mL) solution 10 mg PO Q4H PRN (Reason: Pain) Hold Instructions: Resume on 12/11/24. Rx Instructions: 0.5 ML q4h prn prochlorperazine maleate 10 mg tablet 10 mg PO Q6H PRN (Reason: Nausea And Vomiting) lorazepam 0.5 mg tablet 0.5 mg PO Q6H PRN (Reason: Anxiety) folic acid 1 mg tablet 1 mg PO QDL aprepitant 80 mg capsule 80 mg PO DAILY PRN (Reason: Nausea And Vomiting) ondansetron HCl 8 mg tablet 8 mg PO Q8H PRN (Reason: Nausea And Vomiting) ferrous sulfate 325 mg (65 mg iron) Tablet 325 mg PO 3XWK Hold Instructions: Resume on 12/14/24. Rx Instructions: Mon/Wed/Fri polyethylene glycol 3350 [Miralax] 17 gram Powder In Packet 17 g PO DAILY Qty: 30 0RF docusate sodium 100 mg Capsule 100 mg PO DAILY Qty: 30 0RF magnesium 250 mg Tablet 250 mg PO BID Qty: 60 0RF Referrals Referrals: Thaddeus Solis MD [Primary Care Provider] - Discharge Problem: Abdominal pain Qualifiers: Abdominal location: generalized Qualified Code(s): R10.84 - Generalized abdominal pain
[2025-04-27 13:17] LABS: Hematocrit (blood only) 35.8 % (42.0-52.0); Hemoglobin 12.3 g/dl (14.0-18.0); Immature Granulocytes # (auto) 0.03 K/uL (0.01-0.20); Immature Granulocytes % (auto) 0.5 %; Mean Corpuscular Hemoglobin 29.5 pg (25.0-34.0); Mean Corpuscular Volume 85.9 fL (80.0-100.0); Platelet Count 296 K/uL (130-400); RDW Standard Deviation 43.6 fL (36.4-46.3); Red Blood Count 4.17 M/uL (4.70-6.10); White Blood Count 5.74 K/ul (4.8-10.8)
[2025-04-27] MEDS: diphenhydrAMINE 50 MG/ML VIAL IV STA (13:21)
[2025-04-27] MEDS: FAMOTIDINE 20MG IV PUSH 20 MG/5 ML SYR IV STA (13:21)
[2025-04-27] MEDS: METOCLOPRAMIDE HCL INJ 5 MG/ML 2 ML VIAL IV STA (13:21)
[2025-04-27] MEDS: ACETAMINOPHEN 1,000 MG/100 ML VIAL IV STA (13:22)
[2025-04-27 13:33] LABS: Alanine Aminotransferase 9.0 U/L (7-52); Albumin Globulin Ratio 1.5 (0.9-2); Alkaline Phosphatase 61.0 U/L (34-104); Anion Gap 11.0 (3-11); Bilirubin,Total 0.7 mg/dl (0.2-1.0); Blood Urea Nitrogen 7.0 mg/dl (6-23); Calcium 9.0 mg/dl (8.6-10.3); Carbon Dioxide 22.0 mmol/L (21-32); Chloride 103.0 mmol/L (98-107); Creatinine Clr Calc Pharmacy 91.6 ml/min; Globulin 2.6 gm/dl (2.5-4.0); Glucose 116.0 mg/dl (70-99(Fasting)); Lipase 41.0 U/L (11-82); Magnesium 1.4 mg/dl (1.7-2.4); Potassium 3.5 mmol/L (3.5-5.1); Sodium 136.0 mmol/L (136-145); Total Protein 6.5 gm/dl (6.0-8.3)
[2025-04-27] MEDS: OPTIRAY 320 100ml IV ONE (14:01)
[2025-04-27] MEDS: MAGNESIUM SULFATE / D5W 1 GM/100 ML BAG IV STA (14:14)
[2025-04-27] MEDS: DICYCLOMINE HCL 10 MG/ML 2 ML AMP/VIAL IM ONE (15:59)
[2025-04-27] MEDS: HALOPERIDOL LACTATE 5 MG in SODIUM CHLORIDE 0.9% 500 ML IV STA (15:59)
[2025-04-27] MEDS: CAPSAICIN CR 0.075% 60 GM TUBE EXT STA (16:03)
--- NOTE | 2025-04-27 16:08 | XRay Report ---
Chest radiograph, one view History: Postreduction. Comparison: April 11, 2025. Findings: Thoracic inlet limited secondary to superimposed lower facial structures. Right chest port catheter unchanged. Cardiomediastinal silhouette is within normal limits. Lung volumes are prominent. Lungs are clear. No acute pleural disease. Pulmonary vasculature is within normal limits. Impression: Limited thoracic inlet with no appreciated acute process. Lateral view would be helpful. Electronically signed by Jaswinder Bahena 04-27-2025 4:08 PM
[2025-04-27 16:48] LABS: Amphetamines+Metham, Urine Neg (Neg); MDMA (Ecstacy), Urine Neg (Neg); Marijuana, Urine Neg (Neg)
--- NOTE | 2025-04-27 17:26 | CT Scan Report ---
Exam: CT abdomen/pelvis with IV contrast. Reason for exam: Abdominal pain with nausea and vomiting. Previous studies: CT abdomen/pelvis 04/25/2025. FINDINGS: The lower lung zones remain free of acute disease. Small sharply demarcated nodule in the anterior left hepatic lobe most compatible with cyst unchanged since the previous study. No biliary tract dilatation noted. Metallic clip noted in the upper abdomen although the gallbladder remains present. Staple line appears to be from previous gastric bypass. Small hiatal hernia remains present. Pancreas and spleen are unremarkable. Adrenal glands are unremarkable. Kidneys unremarkable. Scattered vascular calcifications seen in the aorta without aneurysm. Bowel pattern is nonspecific without evidence of bowel obstruction or. Diverticulosis again seen in the sigmoid. Again there is a mild wall thickening of the distal small bowel which is nonspecific but may indicate enteritis, without bowel obstruction. Mild wall thickening also seen in the sigmoid colon without focal active diverticulitis. Mild diffuse thickening of the wall of the urinary bladder is noted. Bladder is mildly distended. Otherwise no pelvic mass, adenopathy or free fluid is seen. IMPRESSION: 1. Essentially stable appearance as compared to the previous study of 04/25/2025. 2. Mild mural thickening of the distal small bowel and colon particularly the sigmoid, suggesting possible nonspecific enteritis. No evidence of bowel obstruction or free air. Follow-up small bowel series and/or capsule endoscopy recommended for further evaluation. 3. Mild diverticulosis. 4. Small hiatal hernia. 5. Mild diffuse thickening of the wall of the urinary bladder. Electronically signed by Rad Ponce 04-27-2025 5:25 PM
[2025-04-27] MEDS: MoRPHine SULFATE 10 MG/ML CARP/VIAL IV STA (17:57)
--- NOTE | 2025-04-27 17:58 | History & Physical Report ---
Date of Service April 27, 2025 Assessment & Plan (1) Abdominal pain: (2) Melena: Plan: Intractable nausea, vomiting and abdominal pain DD: Enteritis, short-bowel syndrome, ? THC use, Aprepitant use --CT ABD: Essentially stable appearance as compared to the previous study of 04/25/2025. Mild mural thickening of the distal small bowel and colon particularly the sigmoid, suggesting possible nonspecific enteritis. No evidence of bowel obstruction or free air. Follow-up small bowel series and/or capsule endoscopy recommended for further evaluation. Mild diverticulosis. Small hiatal hernia. Mild diffuse thickening of the wall of the urinary bladder. -- Antiemetics, pain control as needed Gentle IV fluids Clear liquid diet for now GI consulted Bowel regimen to prevent constipation Check stool studies if develops diarrhea Melena Insetting of oral iron intake H/O diverticulosis, polyps Avoid anticoagulation Continue IV Protonix Monitor H&H GI consulted N.p.o. 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 Discussed patient's care with ED physician in detail. Reviewed old record and current imaging studies, EKG and labs. I spent a total of78 minutes coordinating, documenting, and providing care for this patient. History of Present Illness Chief Complaint: Nausea, vomiting, abdominal pain, melena Primary Care Provider: Thaddeus Solis MD Patient is a 59-year-old male with history of esophageal/GE junction invasive adenocarcinoma s/p neoadjuvant FLOT and total gastrectomy and Yeison-en-Y gastrojejunal anastomosis, severe malnutrition, diverticulitis, recurrent intractable nausea, vomiting, chronic anemia, trigeminal neuralgia and other medical problems presents with history of nausea, worsening abdominal pain and melena. Patient states that he was discharged yesterday from the hospital after being treated for intractable nausea, vomiting associated with constipation and was doing well until yesterday and when he woke up this morning noted to have significant abdominal pain, nonradiating, which did not improve with Tylenol and morphine. He states that he had a loose black bowel movement this morning. He is abdominal pain is unrelated to food intake and not associated with abdominal spasms. He felt feverish but when checked was noted to have no fever. He takes iron pills but not on any blood thinners or aspirin. He denies any recent alc ohol, THC use. His abdominal pain is improved while in ED after receiving several medications including Bentyl, famotidine, morphine, antiemetics, capsaicin and Haldol. He reports history of polypectomy and diverticulosis in the past and states that he is due for his colonoscopy. Denies any history of chest pain, dyspnea, dizziness, pedal edema, cough, headache, dysuria, hematuria. Allergies Allergy/AdvReac Type Severity Reaction Status Date / Time carbamazepine [From Tegretol] Allergy Mild Rash Verified 04/27/25 15:07 Home Medications Medication Instructions Recorded Confirmed Type escitalopram oxalate 10 mg tablet 10 mg PO QAM 12/22/23 04/27/25 History olanzapine 5 mg tablet (Zyprexa) 5 mg PO HS 12/22/23 04/27/25 History cholecalciferol (vitamin D3) 50 50 mcg PO DAILY 02/13/24 04/27/25 History mcg (2,000 unit) tablet (Vitamin D3) cyanocobalamin (vitamin B-12) 500 500 mcg PO DAILYBD 02/13/24 04/27/25 History mcg tablet (Vitamin B-12) aprepitant 80 mg capsule 80 mg PO DAILY PRN Nausea And 04/13/24 04/27/25 History Vomiting folic acid 1 mg tablet 1 mg PO QDL 04/13/24 04/27/25 History lorazepam 0.5 mg tablet 0.5 mg PO Q6H PRN Anxiety 04/13/24 04/27/25 History morphine concentrate 100 mg/5 mL 10 mg PO Q4H PRN Pain 04/13/24 04/27/25 History (20 mg/mL) oral solution prochlorperazine maleate 10 mg 10 mg PO Q6H PRN Nausea And 04/13/24 04/27/25 History tablet Vomiting ferrous sulfate 325 mg (65 mg 325 mg PO 3XWK 11/06/24 04/27/25 History iron) tablet ondansetron HCl 8 mg tablet 8 mg PO Q8H PRN Nausea And Vomiting 11/06/24 04/27/25 History dicyclomine 10 mg capsule 10 mg PO QID PRN abd pain 01/18/25 04/27/25 History pantoprazole 40 mg tablet,delayed 40 mg PO QAM 01/18/25 04/27/25 History release docusate sodium 100 mg capsule 100 mg PO DAILY #30 caps 04/26/25 04/27/25 Rx magnesium 250 mg tablet 250 mg PO BID #60 tabs 04/26/25 04/27/25 Rx polyethylene glycol 3350 17 gram 17 g PO DAILY #30 ea 04/26/25 04/27/25 Rx oral powder packet (Miralax) Past Med/Surg History Problem List (Updated 04/27/25 @ 18:49 by Saleem Evans MD) Melena Constipation by delayed colonic transit Abdominal pain Leukocytosis Acute hyponatremia Marijuana use Alcohol use disorder Abrasion of nose (Acute) Elevated d-dimer (Acute) Weakness (Acute) Hyponatremia (Acute) Nasal bone fractures (Acute) Unwitnessed fall (Acute) Diverticulitis (Acute) Abnormal abdominal CT scan (Acute) Hypomagnesemia (Acute) Vomiting (Acute) Diffuse abdominal pain (Acute) Abdominal pain (Acute) Pancreatitis (Acute) Intractable nausea and vomiting (Acute) Medical History Acute diverticulitis Intractable nausea and vomiting History of esophageal cancer Severe malnutrition Anemia Esophageal cancer diagnosed 04/2023--chemo/ERCP 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 [place] [place] History of recent blood transfusion 05/02/23 @ [facility] Enteropathogenic Escherichia coli infection Hyponatremia Trigeminal neuralgia Hypomagnesemia Vomiting and diarrhea Iron deficiency received blood transfusion 05/02/23 @ [facility] Surgical History History of colonoscopy History of esophagogastroduodenoscopy (EGD) History of tooth extraction partial upper and lower denture History of ERCP 04/2023 @ [facility] History of vascular access device A port--power port in placed on right side of chest Family History Father Stroke Social History Smoking Status: Never smoker Tobacco Type: Cigarettes Second Hand Exposure: No; Do You Dip or Chew Tobacco: No; Hx Alcohol Use: Yes Alcohol type: hard liquor Hx Substance Use: No Preferred Language: Vincentian Communication Ability: Effective Gambling Cashier Required: No Beliefs That Will Affect Care: None marital status: Current Living Situation: Spouse Current Living Situation Comment: [place] Feels Safe at Home: Yes Assistive Devices: Cane Review of Systems Review of Systems: All systems reviewed & are unremarkable except as noted in Subjective Physical Exam Physical Exam: Physical Exam: Vitals signs as noted above General Appearance:Thin, frail, no apparent distress, chronic ill appearing Head: normocephalic, Atraumatic Eyes: normal inspection, EOMI Neck: supple, Trachea midline Respiratory/Chest: Normal breath sounds, CTA, No accessory muscle use Cardiovascular: S1, S2, No murmur Abdomen/GI:Soft, generalized mild tender, mild distention, Bowel sounds present Extremities/Musculoskeletal:normal inspection, no edema Neurologic/Psych:AAOX3, grossly no focal neurological deficits Skin: normal color, warm Results & Data Results & Data Vital Signs (Past 12 Hours) Vital Signs Temp Pulse Pulse Resp BP BP Pulse Ox 04/27/25 17:11 52 L 04/27/25 16:00 59 L 16 150/102 H 100 04/27/25 15:00 57 L 26 H 04/27/25 15:00 178/102 H 04/27/25 14:14 56 L 18 179/101 H 04/27/25 13:36 60 28 H 100 04/27/25 13:24 60 20 100 04/27/25 13:11 100 04/27/25 13:07 58 L 04/27/25 13:04 176/103 H 04/27/25 12:41 36.7 C 63 20 158/94 H 100 O2 Del Method 04/27/25 17:11 04/27/25 16:00 Room Air 04/27/25 15:00 04/27/25 15:00 04/27/25 14:14 Room Air 04/27/25 13:36 04/27/25 13:24 04/27/25 13:11 Room Air 04/27/25 13:07 04/27/25 13:04 04/27/25 12:41 Room Air Laboratory Results Short CBC 04/27/25 Range/Units 13:06 WBC 5.74 (4.8-10.8) K/ul Hgb 12.3 L (14.0-18.0) g/dl Hct 35.8 L (42.0-52.0) % Plt Count 296 (130-400) K/uL BMP 04/27/25 13:06 Sodium 136 Potassium 3.5 Chloride 103 Carbon Dioxide 22 BUN 7 Creatinine 0.69 Glucose 116 H Calcium 9.0 Liver Function 04/27/25 Range/Units 13:06 Total Bilirubin 0.7 (0.2-1.0) mg/dl AST 16 (13-39) U/L ALT 9 (7-52) U/L Alkaline Phosphatase 61 (34-104) U/L Albumin 3.9 (3.4-5.0) gm/dl Diagnostic Findings --CT ABD: Essentially stable appearance as compared to the previous study of 04/25/2025. Mild mural thickening of the distal small bowel and colon particularly the sigmoid, suggesting possible nonspecific enteritis. No evidence of bowel obstruction or free air. Follow-up small bowel series and/or capsule endoscopy recommended for further evaluation. Mild diverticulosis. Small hiatal hernia. Mild diffuse thickening of the wall of the urinary bladder. ECG Additional Comments: --EKG: Sinus bradycardia with short AK, low voltage QRS, QTc 438.
[2025-04-27] MEDS: HYDROmorphone INJ 0.5 MG/0.5 ML SYR IV STA (21:26)
[2025-04-27] MEDS: ONDANSETRON INJ 2 MG/ML 2 ML VIAL IV STA (21:27)
[2025-04-27] MEDS: LACTATED RINGER'S 1,000 ML IV SCH (23:03)
[2025-04-27] MEDS ORDERED: POLYETHYLENE (MIRALAX) 17 GM PACK PO PRN (23:03)
[2025-04-27] MEDS: DOCUSATE SODIUM 100 MG CAP PO SCH (23:03)
[2025-04-27] MEDS: PANTOprazole 40 MG/10 ML SYR IV SCH (23:03)
[2025-04-28] MEDS: MAGNESIUM SULFATE / D5W 1 GM/100 ML BAG IV SCH (00:22)
[2025-04-28 01:54] LABS: Hematocrit (blood only) 28.1 % (42.0-52.0); Hemoglobin 9.5 g/dl (14.0-18.0)
[2025-04-28] MEDS: MoRPHine SULFATE 2 MG/ML CARP IV PRN (04:41)
[2025-04-28 06:37] LABS: Hematocrit (blood only) 28.9 % (42.0-52.0); Hemoglobin 9.8 g/dl (14.0-18.0); Mean Corpuscular Hemoglobin 30.2 pg (25.0-34.0); Mean Corpuscular Volume 89.2 fL (80.0-100.0); Platelet Count 235 K/uL (130-400); RDW Standard Deviation 45.9 fL (36.4-46.3); Red Blood Count 3.24 M/uL (4.70-6.10); White Blood Count 6.21 K/ul (4.8-10.8)
[2025-04-28 07:02] LABS: Anion Gap 5.0 (3-11); Blood Urea Nitrogen 5.0 mg/dl (6-23); Calcium 8.2 mg/dl (8.6-10.3); Carbon Dioxide 27.0 mmol/L (21-32); Chloride 105.0 mmol/L (98-107); Creatinine Clr Calc Pharmacy 93.3 ml/min; Glucose 98.0 mg/dl (70-99(Fasting)); Magnesium 2.0 mg/dl (1.7-2.4); Potassium 3.5 mmol/L (3.5-5.1); Sodium 137.0 mmol/L (136-145)
--- NOTE | 2025-04-28 07:56 | Hospitalist Progress Note ---
Date of Service April 28, 2025 Assessment & Plan (1) Abdominal pain: (2) Melena: Plan: Patient is 59 year old male with PMH severe malnutrition, esophageal/gastric cancer status post neoadjuvant chemotherapy/surgery, surgery consist of total gastrectomy and Yeison-en-Y esophageal jejunal anastomosis, chronic anemia, history of trigeminal neuralgia status post surgery, history recurrent nausea, vomiting and abdominal pain admitted for intractable nausea, vomiting and abdominal pain and episode of melena. #Intractable nausea, vomiting and abdominal pain DD: Enteritis, short-bowel syndrome, ? THC use, Aprepitant use Admitting CT ABD: Essentially stable appearance as compared to the previous study of 04/25/2025. Mild mural thickening of the distal small bowel and colon particularly the sigmoid, suggesting possible nonspecific enteritis. No evidence of bowel obstruction or free air. Follow-up small bowel series and/or capsule endoscopy recommended for further evaluation. Mild diverticulosis. Small hiatal hernia. Mild diffuse thickening of the wall of the urinary bladder. Patient treated with IVF, antiemetics, pain control with morphine as needed. Today with continued abdominal discomfort and nausea. Will switch IV morphine to IV Dilaudid and monitor Bowel regimen to prevent constipation Check stool studies if develops diarrhea GI consulted #Melena Insetting of oral iron intake. DDx: GI bleed H/O diverticulosis, polyps Avoid anticoagulation On IV Protonix BID Admission hgb: 12 (baseline 10-11). 9.8 this morning and 9.5 overnight Monitor H&H GI consulted and recommends if would have continued melena consider EGD. Recommends with evidence of enteritis on CT scan this could be worked up with MRE but this could well be an acute, self-limited enteritis so observation believed to be more prudent. If problems persist while in the hospital then colonoscopy could be considered before discharge. N.p.o. after midnight in case recurrent melena and need for procedure 01/08/2025 EGD: Mucosal nodule in esophagus biopsied. S/p gastrectomy. Normal examined jejunum 01/08/25 Esophagus nodule surgical pathology: Squamous mucosa with no specific pathological change 01/08/2025 colonoscopy: Inadequate colon prep #Sinus bradycardia #Elevated blood pressure Elevated BP in ER yesterday. Has since improved and was likely secondary to pain Pain control as above #Hypomagnesemia Improved to 2.0 Today after IV magnesium sulfate repletion. 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 Reports has been having 1 ETOH drink a week DVT Px: SCDs for now Pt care coordinated with Dr Evans. I spent a total of 35 minutes reviewing notes, outpatient records, labs, medication, coordinating, documenting and providing care for this patient excluding time spent in the performance of separately billed services and excluding time spent by another provider/QHP. Admission and Anticipated Discharge Date Admission Date: April 27, 2025 Supervising Physician Co-Signing Physician Notes Patient is seen and examined at bedside. Continues to have abdominal pain. Less nausea today. Denies any recurrence of rectal bleed. No other complaints today Physical Exam: Vitals signs as noted above General Appearance:Thin, frail, no apparent distress, chronic ill appearing Head: normocephalic, Atraumatic Eyes: normal inspection, EOMI Neck: supple, Trachea midline Respiratory/Chest: Normal breath sounds, CTA, No accessory muscle use Cardiovascular: S1, S2, No murmur Abdomen/GI:Soft, generalized mild tender, mild distention, Bowel sounds present Extremities/Musculoskeletal:normal inspection, no edema Neurologic/Psych:AAOX3, grossly no focal neurological deficits Skin: normal color, warm Intractable nausea, vomiting, abdominal pain Melena Sinus bradycardia Hypomagnesemia 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 I have reviewed the advanced practitioner's documentation on the date of service referred in note and agree with plan. Patient's care is coordinated with Angelica Andrade PA-C. Please refer to the documentation above for details of patient's presentation and for discussion of other issues. I spent a total [id number] coordinating, documenting, and providing care for this patient excluding time spent in the performance of separately billed services or time spent by another provider/QHP. Subjective Patient seen and examined sitting up in bed. Reports overnight abdominal pain again. Received morphine this morning but feels not that helpful and feels Dilaudid is more effective. He states diffuse abdominal pain and he feels like this is his typical abdominal pain he experiences. Rates pain 7/10 on pain scale. Also reports nausea returned this morning. He states that typically when he gets these symptoms after overnight admission abdominal pain and nausea are improved but feels this time they are more persistent. Was having constipation previously and yesterday episode of melena prompting his hospital evaluation. No BM yet since been in hospital. Denies fever/chills, diaphoresis, STEELE, dizziness, syncope, CP, SOB, cough, rhinorrhea, weakness, extremity edema, rashes, urinary symptoms. Review of Systems Review of Systems: All systems reviewed & are unremarkable except as noted in HPI & below Physical Exam Physical Exam: General: no distress currently, thin chronically ill appearing male Head: normocephalic, atraumatic Eyes: conjunctiva non-injected, anicteric ENT: normal inspection external ears, nose, mucous membranes moist Neck: supple, trachea midline Chest: +port to upper right chest wall Lungs: clear, no respiratory distress, no wheezing/rhonchi/rales CV: RRR, no murmur noted, no pretibial edema Abd: normal BS, soft, mild tenderness to palpation across upper and mid abdomen without guarding Ext: no cyanosis, no calf tenderness Neuro: A&O x 3, no focal deficits noted, normal affect Skin: warm, dry Results & Data Results & Data Vital Signs (Past 12 Hours) Vital Signs Temp Pulse Pulse Pulse Resp BP BP 04/28/25 06:58 51 L 04/28/25 03:53 36.6 C 56 L 20 121/73 04/27/25 22:50 50 L 04/27/25 22:50 04/27/25 22:50 36.7 C 53 L 16 118/66 04/27/25 22:42 61 16 113/69 04/27/25 21:03 59 L 04/27/25 20:00 52 L 16 108/63 Pulse Ox Pulse Ox O2 Del Method O2 Del Method 04/28/25 06:58 04/28/25 03:53 98 Room Air 04/27/25 22:50 04/27/25 22:50 98 Room Air 04/27/25 22:50 98 Room Air 04/27/25 22:42 97 Room Air 04/27/25 21:03 04/27/25 20:00 96 Room Air Laboratory Results Short CBC 04/27/25 04/28/25 04/28/25 Range/Units 13:06 01:22 06:16 WBC 5.74 6.21 (4.8-10.8) K/ul Hgb 12.3 L 9.5 L 9.8 L (14.0-18.0) g/dl Hct 35.8 L 28.1 L 28.9 L (42.0-52.0) % Plt Count 296 235 (130-400) K/uL BMP 04/27/25 04/28/25 13:06 06:15 Sodium 136 137 Potassium 3.5 3.5 Chloride 103 105 Carbon Dioxide 22 27 BUN 7 5 L Creatinine 0.69 0.68 Glucose 116 H 98 Calcium 9.0 8.2 L Liver Function 04/27/25 Range/Units 13:06 Total Bilirubin 0.7 (0.2-1.0) mg/dl AST 16 (13-39) U/L ALT 9 (7-52) U/L Alkaline Phosphatase 61 (34-104) U/L Albumin 3.9 (3.4-5.0) gm/dl Diagnostic Findings KUB X-Ray 04/28/25 07:00 KUB HISTORY: nausea, vomiting COMPARISON STUDY: CT scan yesterday FINDINGS: There is mild retained stool. No bowel obstruction seen. No gross free air. IMPRESSION: No bowel obstruction seen. ACT 112: Negative or not required by law. The above report was generated using voice recognition software. It may contain grammatical, syntax or spelling errors. Electronically signed by: Rad Roger M.D. 04/28/2025 9:09 AM (1) Abdominal pain Abdominal location: generalized Qualified Code(s): R10.84 - Generalized abdominal pain
[2025-04-28] MEDS: ONDANSETRON INJ 2 MG/ML 2 ML VIAL IV PRN (07:57)
[2025-04-28] MEDS: LORazepam 0.5 MG TAB PO PRN (07:57)
[2025-04-28] MEDS: CHOLECALCIFEROL 25 MCG (1000 UNITS) TAB PO SCH (07:58)
[2025-04-28] MEDS: ESCITALOPRAM OXALATE 10 MG TAB PO SCH (07:58)
[2025-04-28] MEDS: HYDROmorphone INJ 0.5 MG/0.5 ML SYR IV PRN (08:56)
--- NOTE | 2025-04-28 09:10 | XRay Report ---
KUB HISTORY: nausea, vomiting COMPARISON STUDY: CT scan yesterday FINDINGS: There is mild retained stool. No bowel obstruction seen. No gross free air. IMPRESSION: No bowel obstruction seen. ACT 112: Negative or not required by law. The above report was generated using voice recognition software. It may contain grammatical, syntax o r spelling errors. Electronically signed by: Rad Roger M.D. 04/28/2025 9:09 AM
--- NOTE | 2025-04-28 09:24 | Gastrointestinal Consultation ---
Date of Consultation April 28, 2025 Assessment & Plan (1) Abdominal pain: Pleasant man with history of esophageal cancer who returns because of solitary black stool. His hemoglobin has dropped but I am doubtful of the validity of the admit hemoglobin unless he was really dehydrated as it is higher than normal for him. Consideration could be given to EGD if the black stools continue. He does have evidence of enteritis on CT scan. This could be worked up with MRE but this could well be an acute, self-limited enteritis so I think observation is more prudent. He is due for outpatient colonoscopy in the near future and examination of his TI can be done then. If problems persist while in the hospital then colonoscopy could be considered before discharge. History of Present Illness Reason for Consultation: abdominal pain, nausea and vomiting Attending Physician: Saleem Evans MD History of Present Illness 59 year old man with history of esophageal cancer s/p surgical excision resulting in esophagojejuonstomy. He was recently in the hospital with abdominal pain, nausea and vomiting but he improved rapidly and went home. While at home he says he passed one black stool so he returned. He continues with abdominal pain and emesis of clear liquids. CT on admit suggests enteritis with some areas of thickening in his colon. He is due for colonoscopy at [facility] in June. He has had no further black stools but he has had no stools at all. He denies fever or chills, he denies using peptobismol. He says he feels pretty well now. Hemoglobin on admit was 12.3 and is 9.8 today. Hemoglobin on day of discharge (04/25) was 10.8 and usually runs upper 9's to mid 10's. Allergies Allergy/AdvReac Type Severity Reaction Status Date / Time carbamazepine [From Tegretol] Allergy Mild Rash Verified 04/27/25 15:07 Home Medications Medication Instructions Recorded Confirmed Type escitalopram oxalate 10 mg tablet 10 mg PO QAM 12/22/23 04/27/25 History olanzapine 5 mg tablet (Zyprexa) 5 mg PO HS 12/22/23 04/27/25 History cholecalciferol (vitamin D3) 50 50 mcg PO DAILY 02/13/24 04/27/25 History mcg (2,000 unit) tablet (Vitamin D3) cyanocobalamin (vitamin B-12) 500 500 mcg PO DAILYBD 02/13/24 04/27/25 History mcg tablet (Vitamin B-12) aprepitant 80 mg capsule 80 mg PO DAILY PRN Nausea And 04/13/24 04/27/25 History Vomiting folic acid 1 mg tablet 1 mg PO QDL 04/13/24 04/27/25 History lorazepam 0.5 mg tablet 0.5 mg PO Q6H PRN Anxiety 04/13/24 04/27/25 History morphine concentrate 100 mg/5 mL 10 mg PO Q4H PRN Pain 04/13/24 04/27/25 History (20 mg/mL) oral solution prochlorperazine maleate 10 mg 10 mg PO Q6H PRN Nausea And 04/13/24 04/27/25 History tablet Vomiting ferrous sulfate 325 mg (65 mg 325 mg PO 3XWK 11/06/24 04/27/25 History iron) tablet ondansetron HCl 8 mg tablet 8 mg PO Q8H PRN Nausea And Vomiting 11/06/24 04/27/25 History dicyclomine 10 mg capsule 10 mg PO QID PRN abd pain 01/18/25 04/27/25 History pantoprazole 40 mg tablet,delayed 40 mg PO QAM 01/18/25 04/27/25 History release docusate sodium 100 mg capsule 100 mg PO DAILY #30 caps 04/26/25 04/27/25 Rx magnesium 250 mg tablet 250 mg PO BID #60 tabs 04/26/25 04/27/25 Rx polyethylene glycol 3350 17 gram 17 g PO DAILY #30 ea 04/26/25 04/27/25 Rx oral powder packet (Miralax) Patient History Medical History Acute diverticulitis Intractable nausea and vomiting History of esophageal cancer Severe malnutrition Anemia Esophageal cancer diagnosed 04/2023--chemo/ERCP 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 Edmonds/[facility] Eduardo History of recent blood transfusion 05/02/23 @ [facility] Enteropathogenic Escherichia coli infection Hyponatremia Trigeminal neuralgia Hypomagnesemia Vomiting and diarrhea Iron deficiency received blood transfusion 05/02/23 @ [facility] Surgical History History of colonoscopy History of esophagogastroduodenoscopy (EGD) History of tooth extraction partial upper and lower denture History of ERCP 04/2023 @ [facility] [place] History of vascular access device A port--power port in placed on right side of chest Family History Father Stroke Social History Smoking Status: Never smoker Second Hand Exposure: No; Do You Dip or Chew Tobacco: No; Tobacco Cessation Education Requested by Patient: No Hx Alcohol Use: Yes Alcohol type: hard liquor Hx Substance Use: No Preferred Language: Welsh Communication Ability: Effective In House Cra Required: No Beliefs That Will Affect Care: None marital status: Current Living Situation: Spouse Current Living Situation Comment: [place] Other Information That Helps Us Care for You: No Feels Safe at Home: Yes Safety Concerns: Feels Safe At This Time Assistive Devices: Cane and Hospital Bed Review of Systems Review of Systems: All systems reviewed & are unremarkable except as noted in HPI & below Physical Exam Physical Exam: Pleasant, in no distress Constitutional: WD/WN, vitals as above Neck: trachea midline, no thyromegaly Respiratory: normal respiratory effort, lungs clear to auscultation Cardiovascular: RRR, no murmur, no edema Gastrointestinal (Abdomen): Inspection/Auscultation: abdomen normal to inspection Percussion/Palpation: + abdomen tender (upper abdomen) and abdomen soft Results & Data Vital Signs (Past 12 Hours) Vital Signs Temp Pulse Pulse Resp BP BP Pulse Ox 04/28/25 07:56 36.6 C 58 L 16 134/79 99 04/28/25 06:58 51 L 04/28/25 03:53 36.6 C 56 L 20 121/73 98 04/27/25 22:50 50 L 04/27/25 22:50 04/27/25 22:50 36.7 C 53 L 16 118/66 98 04/27/25 22:42 61 16 113/69 97 Pulse Ox O2 Del Method O2 Del Method 04/28/25 07:56 Room Air 04/28/25 06:58 04/28/25 03:53 Room Air 04/27/25 22:50 04/27/25 22:50 98 Room Air 04/27/25 22:50 Room Air 04/27/25 22:42 Room Air Laboratory Results 04/28/25 04/28/25 04/28/25 Range/Units 06:16 06:15 01:22 WBC 6.21 (4.8-10.8) K/ul RBC 3.24 L (4.70-6.10) M/uL Hgb 9.8 L 9.5 L (14.0-18.0) g/dl Hct 28.9 L 28.1 L (42.0-52.0) % MCV 89.2 (80.0-100.0) fL MCH 30.2 (25.0-34.0) pg MCHC 33.9 (32.0-36.0) g/dL RDW Std Deviation 45.9 (36.4-46.3) fL RDW Coeff of Stone 14.1 (11.5-14.5) % Plt Count 235 (130-400) K/uL MPV 9.7 (9.4-12.4) fL Immature Gran % (Auto) % Neut % (Auto) % Lymph % (Auto) % [place] % (Auto) % Eos % (Auto) % Baso % (Auto) % Neut # (Auto) (1.40-6.50) K/uL Lymph # (Auto) (1.20-3.40) K/uL [place] # (Auto) (0.11-0.59) K/uL Eos # (Auto) (0.00-0.50) K/uL Baso # (Auto) (0.00-0.20) K/uL Immature Gran # (Auto) (0.01-0.20) K/uL Sodium 137 (136-145) mmol/L Potassium 3.5 (3.5-5.1) mmol/L Chloride 105 (98-107) mmol/L Carbon Dioxide 27 (21-32) mmol/L Anion Gap 5 (3-11) BUN 5 L (6-23) mg/dl Creatinine 0.68 (0.6-1.4) mg/dl Est Cr Clr Drug Dosing 93.3 ml/min eGFR 106.41 BUN/Creatinine Ratio 7.4 L (10-20) Glucose 98 (70-99(Fasting)) mg/dl Calcium 8.2 L (8.6-10.3) mg/dl Magnesium 2.0 (1.7-2.4) mg/dl Total Bilirubin (0.2-1.0) mg/dl AST (13-39) U/L ALT (7-52) U/L Alkaline Phosphatase (34-104) U/L Troponin I High Sens (0-20) pg/ml Total Protein (6.0-8.3) gm/dl Albumin (3.4-5.0) gm/dl Globulin (2.5-4.0) gm/dl Albumin/Globulin Ratio (0.9-2) Lipase (11-82) U/L Urine Opiates Screen (Neg) U Codeine Confrm GC/MS Ur Morphine (GC/MS) Ur Hydrocodone (GC/MS) Ur Norhydrocodone Ur Noroxycodone Urine Oxycodone (GC/MS) U Oxymorphone GC/MS Ur Methadone, Qual (Neg) Ur Hydromorphone (GC/MS) Urine Fentanyl Screen (Neg) Urine Barbiturates (Neg) Ur Phencyclidine (PCP) (Neg) U Amphetamin/Meth Scrn (Neg) MDMA (Ecstasy) Screen (Neg) U Benzodiazepines Scrn (Neg) Ur Cocaine Metabolite (Neg) U Marijuana (THC) Screen (Neg) Drug Screen Comment Ethyl Alcohol mg/dL (<10.0) mg/dl 04/27/25 04/27/25 04/27/25 Range/Units 16:06 14:47 13:06 WBC 5.74 (4.8-10.8) K/ul RBC 4.17 L (4.70-6.10) M/uL Hgb 12.3 L (14.0-18.0) g/dl Hct 35.8 L (42.0-52.0) % MCV 85.9 (80.0-100.0) fL MCH 29.5 (25.0-34.0) pg MCHC 34.4 (32.0-36.0) g/dL RDW Std Deviation 43.6 (36.4-46.3) fL RDW Coeff of Stone 14.0 (11.5-14.5) % Plt Count 296 (130-400) K/uL MPV 10.0 (9.4-12.4) fL Immature Gran % (Auto) 0.5 % Neut % (Auto) 77.9 % Lymph % (Auto) 13.6 % [place] % (Auto) 7.3 % Eos % (Auto) 0.2 % Baso % (Auto) 0.5 % Neut # (Auto) 4.47 (1.40-6.50) K/uL Lymph # (Auto) 0.78 L (1.20-3.40) K/uL [place] # (Auto) 0.42 (0.11-0.59) K/uL Eos # (Auto) 0.01 (0.00-0.50) K/uL Baso # (Auto) 0.03 (0.00-0.20) K/uL Immature Gran # (Auto) 0.03 (0.01-0.20) K/uL Sodium 136 (136-145) mmol/L Potassium 3.5 (3.5-5.1) mmol/L Chloride 103 (98-107) mmol/L Carbon Dioxide 22 (21-32) mmol/L Anion Gap 11 (3-11) BUN 7 (6-23) mg/dl Creatinine 0.69 (0.6-1.4) mg/dl Est Cr Clr Drug Dosing 91.6 ml/min eGFR 105.94 BUN/Creatinine Ratio 10.1 (10-20) Glucose 116 H (70-99(Fasting)) mg/dl Calcium 9.0 (8.6-10.3) mg/dl Magnesium 1.4 L (1.7-2.4) mg/dl Total Bilirubin 0.7 (0.2-1.0) mg/dl AST 16 (13-39) U/L ALT 9 (7-52) U/L Alkaline Phosphatase 61 (34-104) U/L Troponin I High Sens 3.7 (0-20) pg/ml Total Protein 6.5 (6.0-8.3) gm/dl Albumin 3.9 (3.4-5.0) gm/dl Globulin 2.6 (2.5-4.0) gm/dl Albumin/Globulin Ratio 1.5 (0.9-2) Lipase 41 (11-82) U/L Urine Opiates Screen Pos H (Neg) U Codeine Confrm GC/MS Pending Ur Morphine (GC/MS) Pending Ur Hydrocodone (GC/MS) Pending Ur Norhydrocodone Pending Ur Noroxycodone Pending Urine Oxycodone (GC/MS) Pending U Oxymorphone GC/MS Pending Ur Methadone, Qual Neg (Neg) Ur Hydromorphone (GC/MS) Pending Urine Fentanyl Screen Neg (Neg) Urine Barbiturates Neg (Neg) Ur Phencyclidine (PCP) Neg (Neg) U Amphetamin/Meth Scrn Neg (Neg) MDMA (Ecstasy) Screen Neg (Neg) U Benzodiazepines Scrn Neg (Neg) Ur Cocaine Metabolite Neg (Neg) U Marijuana (THC) Screen Neg (Neg) Drug Screen Comment Pending Ethyl Alcohol mg/dL < 10.0 (<10.0) mg/dl Diagnostic Findings Chest X-Ray 04/27/25 12:45 Chest radiograph, one view History: Postreduction. Comparison: April 11, 2025. Findings: Thoracic inlet limited secondary to superimposed lower facial structures. Right chest port catheter unchanged. Cardiomediastinal silhouette is within normal limits. Lung volumes are prominent. Lungs are clear. No acute pleural disease. Pulmonary vasculature is within normal limits. Impression: Limited thoracic inlet with no appreciated acute process. Lateral view would be helpful. Electronically signed by Jaswinder Bahena 04-27-2025 4:08 PM Abdomen/Pelvis CT 04/27/25 13:05 Exam: CT abdomen/pelvis with IV contrast. Reason for exam: Abdominal pain with nausea and vomiting. Previous studies: CT abdomen/pelvis 04/25/2025. FINDINGS: The lower lung zones remain free of acute disease. Small sharply demarcated nodule in the anterior left hepatic lobe most compatible with cyst unchanged since the previous study. No biliary tract dilatation noted. Metallic clip noted in the upper abdomen although the gallbladder remains present. Staple line appears to be from previous gastric bypass. Small hiatal hernia remains present. Pancreas and spleen are unremarkable. Adrenal glands are unremarkable. Kidneys unremarkable. Scattered vascular calcifications seen in the aorta without aneurysm. Bowel pattern is nonspecific without evidence of bowel obstruction or. Diverticulosis again seen in the sigmoid. Again there is a mild wall thickening of the distal small bowel which is nonspecific but may indicate enteritis, without bowel obstruction. Mild wall thickening also seen in the sigmoid colon without focal active diverticulitis. Mild diffuse thickening of the wall of the urinary bladder is noted. Bladder is mildly distended. Otherwise no pelvic mass, adenopathy or free fluid is seen. IMPRESSION: 1. Essentially stable appearance as compared to the previous study of 04/25/2025. 2. Mild mural thickening of the distal small bowel and colon particularly the sigmoid, suggesting possible nonspecific enteritis. No evidence of bowel obstruction or free air. Follow-up small bowel series and/or capsule endoscopy recommended for further evaluation. 3. Mild diverticulosis. 4. Small hiatal hernia. 5. Mild diffuse thickening of the wall of the urinary bladder. Electronically signed by Rad Ponce 04-27-2025 5:25 PM KUB X-Ray 04/28/25 07:00 KUB HISTORY: nausea, vomiting COMPARISON STUDY: CT scan yesterday FINDINGS: There is mild retained stool. No bowel obstruction seen. No gross free air. IMPRESSION: No bowel obstruction seen. ACT 112: Negative or not required by law. The above report was generated using voice recognition software. It may contain grammatical, syntax or spelling errors. Electronically signed by: Rad Roger M.D. 04/28/2025 9:09 AM (1) Abdominal pain Abdominal location: generalized Qualified Code(s): R10.84 - Generalized abdominal pain
[2025-04-28] MEDS: FOLIC ACID 1 MG TAB PO SCH (12:12)
[2025-04-28] MEDS: POTASSIUM CHLORIDE CRTAB 20 MEQ TABCR PO STA (12:19)
[2025-04-28] MEDS: CYANOCOBALAMIN (B-12) 500 MCG TABLET PO SCH (15:18)
[2025-04-28] MEDS: DICYCLOMINE HCL 10 MG CAP PO PRN (17:35)
[2025-04-28] MEDS: PROMETHAZINE 6.25 MG/50.25 ML BAG IV PRN (18:21)
--- NOTE | 2025-04-29 07:01 | Hospitalist Progress Note ---
Date of Service April 29, 2025 Assessment & Plan (1) Abdominal pain: (2) Intractable nausea and vomiting: (3) Melena: Plan Pt is a 59y/o M with PMHx lower esophageal/GE junction invasive adenocarcinoma s/p neoadjuvant FLOT and total gastrectomy and Yeison-en-Y esophagojejunal anastomosis [under observation with Dr. Cipriano Kuhn since 07/2023], severe malnutrition/moderate protein-calorie malnutrition with history of PEG tube placement in 2023, history of recurrent N/V, chronic abdominal pain, history of diverticulitis, chronic anemia/TU and trigeminal neuralgia who is admitted 2/2 intractable N/V, abdominal pain and melena. Admitting CTAP: Essentially stable appearance as compared to the previous study of 04/25/25. Mild mural thickening of the distal small bowel and colon particularly the sigmoid, suggesting possible nonspecific enteritis. No evidence of bowel obstruction or free air. Mild diverticulosis. Small hiatal hernia. Mild diffuse thickening of the wall of the urinary bladder. #Chronic abdominal pain #Intractable N/V Repeat KUB this AM: mild retained stool, no bowel obstruction seen + Norovirus on stool PCR this AM Contact precautions Continue supportive care with MIVF, PRN antiemetics, PRN analgesia -PRN IV morphine switched to IV Dilaudid on 04/28 with better pain control -Pt with repetitive dry heaving/retching during eval this AM -Trialed IV Zofran, IV Compazine and IV Reglan this AM with minimal improvement Pt states Emend has worked well in the past --> will trial dose of this and monitor response Trial clear liquids as tolerated PRN Levsin, Bentyl for abd cramping #Melena #H/o diverticulosis, polyps 1 episode of melena [employer], no further bouts during admission so far H/H stable Did have 1 BM earlier this AM which was green-colored but no evidence of melena/hematochezia to suggest active GI bleeding FOBT negative GI onboard --> hold off on scope eval given no further evidence of bleeding, observation more prudent -If problems persist while in the hospital then colonoscopy could be considered before discharge Will continue IV Protonix BID for now given persistent N/V Continue to avoid anticoagulation for the time being 01/08/2025 EGD: Mucosal nodule in esophagus biopsied. S/p gastrectomy. Normal examined jejunum 01/08/25 Esophagus nodule surgical pathology: Squamous mucosa with no specific pathological change 01/08/2025 colonoscopy: Inadequate colon prep #Elevated BP Continues to have some BP elevation but improved compared to prior readings in ED Suspect 2/2 above Continue to monitor BP trend, may need to consider addition of antihypertensive agent if consistently elevated #Hypokalemia #Hypomagnesemia IV K and mag repletion ordered Continue to monitor and replete PRN #History of lower esophageal/GE junction invasive adenocarcinoma #Severe malnutrition/moderate protein-calorie malnutrition F/w Dr. Cipriano Kuhn, [facility] heme/onc S/p neoadjuvant FLOT and total gastrectomy and Yeison-en-Y esophagojejunal anastomosis Final pathology showed no residual carcinoma 17+ 5 lymph nodes negative for metastatic disease Under observation since 07/2023 BMI 17, customer service sales consultant consulted Continue vitamin supplementation as able Has previously seen [facility] palliative medicine --> would benefit from OP follow-up on DC #Alcohol use disorder #Marijuana use Denies any recent marijuana use [employer] States had one [employer] hard drink last week Reports has been having 1 EtOH drink/week EtOH level negligible on admission Continue vitamin supplementation as able DVT Prophylaxis: SCDs/TEDs for now Disposition: Possible DC home tomorrow if N/V, abd pain improving Patient seen in collaboration with Dr. Rodriguez. Please see addendum. I spent a total of 40 minutes coordinating, documenting, and providing care for this patient excluding time spent in the performance of separately billed services or time spent by another provider/QHP. This included personally reviewing all current laboratories and imaging studies, medical reconciliation, outpatient chart review and discussion with specialists. This chart was completed in part utilizing Speech Voice Recognition Software. Grammatical errors, random word insertions, pronoun errors, and incomplete sentences are an occasional consequence of this system due to software limitations, ambient noise, and hardware issues. Any formal questions or concerns about the content, text, or information contained within the body of this dictation should be directly addressed to the provider for clarification. Admission and Anticipated Discharge Date Admission Date: April 27, 2025 Supervising Physician Co-Signing Physician Notes I have seen and discussed the case with the collaborating advanced practitioner. I agree with the above progress note. I have reviewed and confirmed the patients medical history, the findings on physical examination, and the patients diagnosis and treatment plan with Jaylan MONTANO and agree with the information documented. Patient with nausea and vomiting iso norovirus infection. Enteritis on imaging. Continue supportive care. Plan as above. I spent a total of 20 minutes coordinating, documenting, and providing care for this patient excluding time spent in the performance of separately billed services. All of the aforementioned completed outside of collaborating with the assigned advanced practitioner for a full treatment plan. I have reviewed the advanced practitioner's documentation, and I agree with, and take responsibility for the plan of care Subjective Patient seen and examined in room 262-1. Endorses centralized abdominal pain which he describes as more of a cramping sensation. No further melanotic BMs, has not moved bowels since 04/27. Continues to feel quite nauseous with repetitive dry heaving but no vomiting. Not tolerating oral intake. Review of Systems Review of Systems: At least ten systems reviewed and negative, except as noted in the subjective section. Physical Exam Physical Exam: General: Thin/chronically ill-appearing M, A&Ox3, appears uncomfortable (repetitively dry heaving) HEENT: Normocephalic, atraumatic, dry mucous membranes Respiratory: Normal respiratory effort, CTAB, + R upper chest wall port Cardiovascular: RRR, normal peripheral pulses, no BLE edema Abdomen/GI: Active bowel sounds, soft/nondistended, mild TTP of upper/mid abdomen without guarding Extremities/MSK: No cyanosis/clubbing, extremities motor strength intact, actively moves all extremities Neurologic: No overt focal deficits, CN's II-XI not formally tested but appear grossly intact bilaterally Results & Data Results & Data Vital Signs (Past 12 Hours) Vital Signs Temp Pulse Pulse Resp BP Pulse Ox O2 Del Method 04/29/25 04:06 36.7 C 70 14 130/88 98 Room Air 04/28/25 23:04 37 C 60 16 129/80 96 Room Air 04/28/25 22:09 69 04/28/25 19:40 36.3 C L 81 14 151/83 H 99 Room Air Laboratory Results Short CBC 04/29/25 Range/Units 07:11 WBC 6.52 (4.8-10.8) K/ul Hgb 11.3 L (14.0-18.0) g/dl Hct 33.1 L (42.0-52.0) % Plt Count 248 (130-400) K/uL BMP 04/29/25 07:11 Sodium 138 Potassium 3.4 L Chloride 104 Carbon Dioxide 25 BUN 5 L Creatinine 0.56 L Glucose 101 H Calcium 8.6 (1) Abdominal pain Abdominal location: generalized Qualified Code(s): R10.84 - Generalized abdominal pain
[2025-04-29 08:05] LABS: Hematocrit (blood only) 33.1 % (42.0-52.0); Hemoglobin 11.3 g/dl (14.0-18.0); Mean Corpuscular Hemoglobin 29.9 pg (25.0-34.0); Mean Corpuscular Volume 87.6 fL (80.0-100.0); Platelet Count 248 K/uL (130-400); RDW Standard Deviation 44.6 fL (36.4-46.3); Red Blood Count 3.78 M/uL (4.70-6.10); White Blood Count 6.52 K/ul (4.8-10.8)
[2025-04-29 08:29] LABS: Anion Gap 9.0 (3-11); Blood Urea Nitrogen 5.0 mg/dl (6-23); Calcium 8.6 mg/dl (8.6-10.3); Carbon Dioxide 25.0 mmol/L (21-32); Chloride 104.0 mmol/L (98-107); Creatinine Clr Calc Pharmacy 111.3 ml/min; Glucose 101.0 mg/dl (70-99(Fasting)); Magnesium 1.6 mg/dl (1.7-2.4); Potassium 3.4 mmol/L (3.5-5.1); Sodium 138.0 mmol/L (136-145)
[2025-04-29] MEDS ORDERED: FOSAPREPITANT DIMEGLUMINE IV ONE (08:45)
[2025-04-29] MEDS ORDERED: SODIUM CHLORIDE 0.9% IV ONE (08:45)
[2025-04-29] MEDS: HYDROmorphone INJ 0.5 MG/0.5 ML SYR IV STA (08:55)
[2025-04-29] MEDS: PROCHLORPERAZINE 5 MG in SYRINGE 4 ML IV ONE (09:48)
[2025-04-29] MEDS: POTASSIUM CHLORIDE / WTR 10 MEQ/100 ML PLCT IV SCH (09:56)
[2025-04-29] MEDS: MAGNESIUM SULFATE / D5W 1 GM/100 ML BAG IV SCH (09:56)
--- NOTE | 2025-04-29 11:49 | Gastroenterology Progress Note ---
Date of Service April 29, 2025 Assessment & Plan (1) Abdominal pain: (2) Melena: Plan No further bowel movements and hgb improved. As such, do not suspect active GI bleeding and no plans for EGD. Symptoms may be secondary to enteritis seen on imaging. - recommend continued supportive care. -Further recommendations to come with Supervising GI provider on medical rounds. Please see co-signature comments. Admission and Anticipated Discharge Date Admission Date: April 27, 2025 Supervising Physician Co-Signing Physician Notes The patient was seen and evaluated. Hospital labs, data, records and imaging reviewed. The case was discussed with the GI NORBERT. On evaluation the patient at bedside he is no longer having nausea or vomiting. His stool studies came back positive for norovirus which explains his recurrent nausea and vomiting as well as enteritis seen on examination. In general this is a self-limited phenomenon and should continue to improve. The patient's diet should be advanced as tolerated. No endoluminal intervention is recommended at this time. Thank you for the courtesy of this consultation. Kindly recall the GI service as needed. Subjective Since admission, he is still having some abdominal pain which he describes as being somewhat worse today. No further nausea. no vomiting. no reflux. He also reports that he has not had any bowel movements since he has been here. 04/29/25 wbc 6.5, hgb 11.3, hct 33.1, plts 248. K 3.4, Na 138, BUN 5, Creatinine 0.56. Review of Systems Review of Systems: All systems reviewed & are unremarkable except as noted in HPI & below Physical Exam Respiratory: normal respiratory effort, lungs clear to auscultation Cardiovascular: Rate/Rhythm: regular rate and regular rhythm Gastrointestinal (Abdomen): diffuse tenderness to palpation, no guarding, soft, normal bowel sounds. Psychiatric: Orientation: alert and oriented x 3 Results & Data Results & Data Vital Signs (Past 12 Hours) Vital Signs Temp Pulse Resp BP BP Pulse Ox O2 Del Method 04/29/25 11:45 99.0 F 65 16 156/83 H 99 Room Air 04/29/25 08:10 97.9 F 56 L 16 182/90 H 183/94 H 98 Room Air 04/29/25 04:06 98.1 F 70 14 130/88 98 Room Air Coding Level of Care Code 45074 SUB INP/OBS CARE 1/25MIN Diagnoses Abdominal pain R10.84 Abdominal location: generalized Melena K92.1 (1) Abdominal pain Abdominal location: generalized Qualified Code(s): R10.84 - Generalized abdominal pain
[2025-04-29] MEDS: METOCLOPRAMIDE HCL INJ 5 MG/ML 2 ML VIAL IV ONE (12:08)
[2025-04-29] MEDS: HYOSCYAMINE SULFATE 0.125 MG TAB SL PRN (12:53)
[2025-04-29] MEDS: FOSAPREPITANT DIMEGLUMINE IV ONE (13:52)
[2025-04-29] MEDS: SODIUM CHLORIDE 0.9% IV ONE (13:52)
--- NOTE | 2025-04-29 14:12 | Electrocardiogram Report ---
Test Reason : Blood Pressure : */* mmHG Vent. Rate : 56 BPM Atrial Rate : 56 BPM P-R Int : 92 ms QRS Dur : 78 ms QT Int : 454 ms P-R-T Axes : -9 -15 -25 degrees QTcB Int : 438 ms Sinus bradycardia with short PA Low voltage QRS Cannot rule out Inferior infarct (cited on or before 11-Apr-2025) Abnormal ECG When compared with ECG of 11-Apr-2025 08:43, PA interval has decreased Confirmed by Hardeep Rodrigues ([id number]) on 04/29/2025 2:12:38 PM Referred By: REFERRED SELF Confirmed By: Hardeep Rodrigues
[2025-04-29 14:23] LABS: Adenovirus F 40/41 PCR Not Detected (NotDetected); Campylobacter PCR Not Detected (NotDetected); Enteroaggregative E.coli(EAEC) Not Detected (NotDetected); Shiga-like Toxin E.coli (STEC) Not Detected (NotDetected); Vibrio species PCR Not Detected (NotDetected)
[2025-04-29] MEDS: SODIUM CHLORIDE 0.9% 1,000 ML IV SCH (16:44)
[2025-04-29] MEDS: ACETAMINOPHEN 325 MG TAB PO PRN (16:52)
[2025-04-30 06:53] LABS: Hematocrit (blood only) 29.5 % (42.0-52.0); Hemoglobin 10.5 g/dl (14.0-18.0); Mean Corpuscular Hemoglobin 31.3 pg (25.0-34.0); Mean Corpuscular Volume 88.1 fL (80.0-100.0); Platelet Count 232 K/uL (130-400); RDW Standard Deviation 44.6 fL (36.4-46.3); Red Blood Count 3.35 M/uL (4.70-6.10); White Blood Count 5.48 K/ul (4.8-10.8)
[2025-04-30 07:15] LABS: Anion Gap 7.0 (3-11); Blood Urea Nitrogen 6.0 mg/dl (6-23); Calcium 8.0 mg/dl (8.6-10.3); Carbon Dioxide 24.0 mmol/L (21-32); Chloride 104.0 mmol/L (98-107); Creatinine Clr Calc Pharmacy 124.7 ml/min; Glucose 97.0 mg/dl (70-99(Fasting)); Magnesium 1.6 mg/dl (1.7-2.4); Potassium 3.5 mmol/L (3.5-5.1); Sodium 135.0 mmol/L (136-145)
[2025-04-30] MEDS: POTASSIUM CHLORIDE / WTR 10 MEQ/100 ML PLCT IV SCH (08:03)
[2025-04-30] MEDS: FOSAPREPITANT DIMEGLUMINE IV ONE (09:06)
[2025-04-30] MEDS: SODIUM CHLORIDE 0.9% IV ONE (09:06)
[2025-04-30] MEDS: MAGNESIUM SULFATE / D5W 1 GM/100 ML BAG IV SCH (10:55)
[2025-04-30] MEDS: METOCLOPRAMIDE HCL INJ 5 MG/ML 2 ML VIAL IV PRN (11:54)
--- NOTE | 2025-04-30 12:58 | Hospitalist Progress Note ---
Date of Service April 30, 2025 Assessment & Plan (1) Abdominal pain: (2) Intractable nausea and vomiting: (3) Norovirus: (4) Melena: Plan Pt is a 59y/o M with PMHx lower esophageal/GE junction invasive adenocarcinoma s/p neoadjuvant FLOT and total gastrectomy and Yeison-en-Y esophagojejunal anastomosis [under observation with Dr. Cipriano Kuhn since 07/2023], severe malnutrition/moderate protein-calorie malnutrition with history of PEG tube placement in 2023, history of recurrent N/V, chronic abdominal pain, history of diverticulitis, chronic anemia/TU and trigeminal neuralgia who is admitted 2/2 intractable N/V, abdominal pain and melena. Admitting CTAP: Essentially stable appearance as compared to the previous study of 04/25/25. Mild mural thickening of the distal small bowel and colon particularly the sigmoid, suggesting possible nonspecific enteritis. No evidence of bowel obstruction or free air. Mild diverticulosis. Small hiatal hernia. Mild diffuse thickening of the wall of the urinary bladder. #Chronic abdominal pain #Intractable N/V #Enteritis 2/2 Norovirus infection Repeat KUB on 04/28 (obtained 2/2 ongoing abd pain): mild retained stool, no bowel obstruction seen Acute on chronic abd pain feeling improved compared to yesterday + Norovirus on stool PCR 04/29 Continue contact precautions Nausea improving with Emend -Had another dose this AM and has been tolerating Sprite/fluids -Previously trialed IV Zofran, Compazine and Reglan yesterday AM without much improvement Pt agreeable with trial of advancing diet this afternoon, monitor response Continue supportive care with PRN antiemetics, PRN analgesia PRN Levsin, Bentyl for abd cramping #Melena #H/o diverticulosis, polyps 1 episode of melena 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 S/p gastrectomy. Normal examined jejunum 01/08/25 Esophagus nodule surgical pathology: Squamous mucosa with no specific pathological change 01/08/2025 colonoscopy: Inadequate colon prep Will continue IV Protonix BID for now given nausea improvement Continue to avoid anticoagulation for now, encourage ambulation as much as tolerated/SCDs and TEDs #Elevated BP Continues to have some intermittent BP elevation but improved compared to prior readings in ED Suspect BP fluctuation 2/2 above Will continue to monitor for now #Hypomagnesemia IV mag repletion ordered Also will replete K+ via IV given it's on lower side this AM Continue to monitor and replete PRN #History of lower esophageal/GE junction invasive adenocarcinoma #Severe protein-calorie malnutrition F/w Dr. 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 Rodriguez. Please see addendum. I spent a total of 34 minutes coordinating, documenting, and providing care for this patient excluding time spent in the performance of separately billed services or time spent by another provider/QHP. This included personally reviewing all current laboratories and imaging studies, medical reconciliation, outpatient chart review and discussion with specialists. This chart was completed in part utilizing Speech Voice Recognition Software. Grammatical errors, random word insertions, pronoun errors, and incomplete sentences are an occasional consequence of this system due to software limitations, ambient noise, and hardware issues. Any formal questions or concerns about the content, text, or information contained within the body of this dictation should be directly addressed to the provider for clarification. Admission and Anticipated Discharge Date Admission Date: April 27, 2025 Supervising Physician Co-Signing Physician Notes I have seen and discussed the case with the collaborating advanced practitioner. I agree with the above progress note. I have reviewed and confirmed the patients medical history, the findings on physical examination, and the patients diagnosis and treatment plan with Jaylan MONTANO and agree with the information documented. Patient with nausea and vomiting iso norovirus infection;however improving and tolerating po. Possible D/C tomorrow. Plan as above. I spent a total of 15 minutes coordinating, documenting, and providing care for this patient excluding time spent in the performance of separately billed services. All of the aforementioned completed outside of collaborating with the assigned advanced practitioner for a full treatment plan. I have reviewed the advanced practitioner's documentation, and I agree with, and take responsibility for the plan of care Subjective Patient seen and examined in room 262-1. Nausea much improved since yesterday. Feels Emend is helpful. No bouts of vomiting overnight. Had a few loose stools this morning, not melanotic in appearance. Denies any hematochezia. Chronic abdominal pain, feels better compared to yesterday. Tolerating sips of Sprite. Would like to try and advance his diet. Review of Systems Review of Systems: At least ten systems reviewed and negative, except as noted in the subjective section. Physical Exam Physical Exam: General: Thin/chronically ill-appearing M, A&Ox3, NAD, appears much more comfortable today HEENT: Normocephalic, atraumatic, somewhat dry mucous membranes Respiratory: Normal respiratory effort, CTAB, + R upper chest wall port Cardiovascular: RRR, normal peripheral pulses, no BLE edema Abdomen/GI: Active bowel sounds, soft/nondistended, very mild TTP of upper/mid abdomen without guarding (improved from yesterday) Extremities/MSK: No cyanosis/clubbing, extremities motor strength intact, actively moves all extremities Neurologic: No overt focal deficits, CN's II-XI not formally tested but appear grossly intact bilaterally Results & Data Results & Data Vital Signs (Past 12 Hours) Vital Signs Temp Pulse Pulse Resp BP Pulse Ox O2 Del Method 04/30/25 11:36 36.8 C 56 L 18 162/91 H 98 Room Air 04/30/25 07:29 36.8 C 59 L 18 165/89 H 97 Room Air 04/30/25 05:29 56 L 04/30/25 03:05 36.6 C 60 18 140/83 98 Room Air Laboratory Results Short CBC 04/30/25 Range/Units 06:35 WBC 5.48 (4.8-10.8) K/ul Hgb 10.5 L (14.0-18.0) g/dl Hct 29.5 L (42.0-52.0) % Plt Count 232 (130-400) K/uL [facility] 04/30/25 06:35 Sodium 135 L Potassium 3.5 Chloride 104 Carbon Dioxide 24 BUN 6 Creatinine 0.50 L Glucose 97 Calcium 8.0 L (1) Abdominal pain Abdominal location: generalized Qualified Code(s): R10.84 - Generalized abdominal pain
[2025-05-01 07:06] LABS: Hematocrit (blood only) 31.0 % (42.0-52.0); Hemoglobin 10.6 g/dl (14.0-18.0); Mean Corpuscular Hemoglobin 29.9 pg (25.0-34.0); Mean Corpuscular Volume 87.6 fL (80.0-100.0); Platelet Count 239 K/uL (130-400); RDW Standard Deviation 43.7 fL (36.4-46.3); Red Blood Count 3.54 M/uL (4.70-6.10); White Blood Count 5.85 K/ul (4.8-10.8)
[2025-05-01 07:25] LABS: Anion Gap 8.0 (3-11); Blood Urea Nitrogen 6.0 mg/dl (6-23); Calcium 8.4 mg/dl (8.6-10.3); Carbon Dioxide 26.0 mmol/L (21-32); Chloride 101.0 mmol/L (98-107); Creatinine Clr Calc Pharmacy 116.9 ml/min; Glucose 93.0 mg/dl (70-99(Fasting)); Magnesium 1.7 mg/dl (1.7-2.4); Potassium 3.6 mmol/L (3.5-5.1); Sodium 135.0 mmol/L (136-145)
[2025-05-01] MEDS: HEPARIN 100 UNIT/ML 5ML FLUSH FLUSH PRN (08:07)
[2025-05-01] MEDS: SODIUM CHLORIDE 0.9% IV ONE (10:23)
[2025-05-01] MEDS: FOSAPREPITANT DIMEGLUMINE IV ONE (10:23)
--- NOTE | 2025-05-01 11:11 | Hospitalist Progress Note ---
<Statement entered by Bertin Narvaez DO - 05/01/25 12:47> patient seen and examined He is c/o abd pain. he has chronic abdominal pain He is eating without issue. normal brown BM For DC home tomorrow, patient agreeable See below for full details 12 minutes were spent in care for patient Date of Service May 01, 2025 Assessment & Plan (1) Abdominal pain: (2) Intractable nausea and vomiting: (3) Enteritis: (4) Norovirus: (5) Melena: Plan Pt is a 59y/o M with PMHx lower esophageal/GE junction invasive adenocarcinoma s/p neoadjuvant FLOT and total gastrectomy and Eyison-en-Y esophagojejunal anastomosis [under observation with Dr. Cipriano Kuhn since 07/2023], severe malnutrition/moderate protein-calorie malnutrition with history of PEG tube placement in 2023, history of recurrent N/V, chronic abdominal pain, history of diverticulitis, chronic anemia/TU and trigeminal neuralgia who is admitted 2/2 intractable N/V, abdominal pain and melena. Admitting CTAP: Essentially stable appearance as compared to the previous study of 04/25/25. Mild mural thickening of the distal small bowel and colon particularly the sigmoid, suggesting possible nonspecific enteritis. No evidence of bowel obstruction or free air. Mild diverticulosis. Small hiatal hernia. Mild diffuse thickening of the wall of the urinary bladder. #Chronic abdominal pain #Intractable N/V #Enteritis 2/2 Norovirus infection Repeat KUB on 04/28 (obtained 2/2 recurrent abd pain): mild retained stool, no bowel obstruction seen + Norovirus on stool PCR 04/29 Continue contact precautions Nausea slowly improving, continue supportive care with PRN antiemetics -Has required a few doses of IV Emend (works for pt for breakthrough N/V) -No bouts of vomiting overnight and tolerating regular diet Having some centralized abdominal pain, more so cramping, this AM -Continue PRN Levsin, Bentyl for abd cramping -PRN low-dose IV Dilaudid Electrolytes overall stable, K and mag on lower side so will give some repletion #Melena #H/o diverticulosis, polyps 1 episode of melena DB2 DBA Had a few loose BMs yesterday morning but denies any further melena or hematochezia H/H overall stable FOBT negative 04/29 GI previously evaluated --> hold off on scope eval given no further evidence of bleeding, observation more prudent -If problems persist while in the hospital then colonoscopy could be considered before DC 01/08/2025 EGD: Mucosal nodule in esophagus biopsied. S/p gastrectomy. Normal examined jejunum 01/08/25 Esophagus nodule surgical pathology: Squamous mucosa with no specific pathological change 01/08/2025 colonoscopy: Inadequate colon prep Will discontinue IV Protonix and transition back to home po dose Continue to avoid anticoagulation for now, encourage ambulation as much as tolerated/SCDs and TEDs #Elevated BP BP remains on higher side Will start low-dose po lisinopril 5mg daily and monitor response #History of lower esophageal/GE junction invasive adenocarcinoma #Severe protein-calorie malnutrition F/w Dr. Cipriano Kuhn, [facility] heme/onc S/p neoadjuvant FLOT and total gastrectomy and Yeison-en-Y esophagojejunal anas tomosis Final pathology showed no residual carcinoma 17+ 5 lymph nodes negative for metastatic disease Under observation since 07/2023 BMI 17, contact center director consulted Continue vitamin supplementation as able Has previously seen [facility] palliative medicine --> scheduled telemedicine visit with Muriel Leal PA-C on 05/07/25 at 9:30A #Alcohol use disorder #Marijuana use Denies any recent marijuana use DB2 DBA States had one Ron's hard drink last week DB2 DBA Reports has been having 1 EtOH drink/week EtOH level negligible on admission Continue vitamin supplementation as able DVT Prophylaxis: SCDs/TEDs for now Disposition: Tentative DC home tomorrow, pt tolerating regular diet Patient seen in collaboration with Dr. Narvaez. Please see addendum. I spent a total of 32 minutes coordinating, documenting, and providing care for this patient excluding time spent in the performance of separately billed services or time spent by another provider/QHP. This included personally reviewing all current laboratories and imaging studies, medical reconciliation, outpatient chart review and discussion with specialists. This chart was completed in part utilizing Speech Voice Recognition Software. Grammatical errors, random word insertions, pronoun errors, and incomplete sentences are an occasional consequence of this system due to software limitations, ambient noise, and hardware issues. Any formal questions or concerns about the content, text, or information contained within the body of this dictation should be directly addressed to the provider for clarification. Admission and Anticipated Discharge Date Admission Date: April 27, 2025 Subjective Patient seen and examined in room 262-1. Nausea still present but controlled. Recurrence of centralized abdominal pain this morning, again describes as crampy sensation - acute on chronic. No further BMs since yesterday morning. Tolerating advanced diet, no bouts of vomiting overnight. Requesting more IV Emend to keep nausea at bay. Review of Systems Review of Systems: At least ten systems reviewed and negative, except as noted in the subjective section. Physical Exam Physical Exam: General: Thin/chronically ill-appearing M, A&Ox3, NAD, sitting up in bed HEENT: Normocephalic, atraumatic, moist mucous membranes Respiratory: Normal respiratory effort, CTAB, + R upper chest wall port Cardiovascular: RRR, normal peripheral pulses, no BLE edema Abdomen/GI: Active bowel sounds, soft/nondistended, mild TTP of upper/mid abdomen without guarding Extremities/MSK: No cyanosis/clubbing, extremities motor strength intact, actively moves all extremities Neurologic: No overt focal deficits, CN's II-XI not formally tested but appear grossly intact bilaterally Results & Data Results & Data Vital Signs (Past 12 Hours) Vital Signs Temp Pulse Resp BP BP Pulse Ox O2 Del Method 05/01/25 08:07 36.7 C 62 18 153/94 H 98 Room Air 05/01/25 03:46 36.7 C 62 18 164/84 H 98 Room Air 05/01/25 01:06 36.2 C L 62 18 172/99 H 97 Room Air Laboratory Results Short CBC 05/01/25 Range/Units 06:44 WBC 5.85 (4.8-10.8) K/ul Hgb 10.6 L (14.0-18.0) g/dl Hct 31.0 L (42.0-52.0) % Plt Count 239 (130-400) K/uL BMP 05/01/25 06:44 Sodium 135 L Potassium 3.6 Chloride 101 Carbon Dioxide 26 BUN 6 Creatinine 0.54 L Glucose 93 Calcium 8.4 L (1) Abdominal pain Abdominal location: generalized Qualified Code(s): R10.84 - Generalized abdominal pain
[2025-05-01] MEDS: POTASSIUM CHLORIDE / WTR 10 MEQ/100 ML PLCT IV SCH (12:17)
[2025-05-01] MEDS: MAGNESIUM SULFATE / D5W 1 GM/100 ML BAG IV SCH (12:17)
[2025-05-02 07:00] LABS: Hematocrit (blood only) 32.5 % (42.0-52.0); Hemoglobin 10.9 g/dl (14.0-18.0); Mean Corpuscular Hemoglobin 29.4 pg (25.0-34.0); Mean Corpuscular Volume 87.6 fL (80.0-100.0); Platelet Count 250 K/uL (130-400); RDW Standard Deviation 44.0 fL (36.4-46.3); Red Blood Count 3.71 M/uL (4.70-6.10); White Blood Count 5.63 K/ul (4.8-10.8)
[2025-05-02 07:21] LABS: Anion Gap 8.0 (3-11); Blood Urea Nitrogen 8.0 mg/dl (6-23); Calcium 8.4 mg/dl (8.6-10.3); Carbon Dioxide 27.0 mmol/L (21-32); Chloride 102.0 mmol/L (98-107); Creatinine Clr Calc Pharmacy 124.0 ml/min; Glucose 100.0 mg/dl (70-99(Fasting)); Magnesium 1.7 mg/dl (1.7-2.4); Potassium 3.7 mmol/L (3.5-5.1); Sodium 137.0 mmol/L (136-145)
[2025-05-02 12:32] VITALS: BP 159/90; RESP 14; TEMP 98.4; O2SAT 93
[2025-05-02 12:57] LABS: Hydrocodone Urine NEGATIVE ng/mL (<50); Hydromor Urine NEGATIVE ng/mL (<50); Noroxycodone Urine NEGATIVE ng/mL (<50); Oxymorph Urine NEGATIVE ng/mL (<50)
--- NOTE | 2025-05-02 13:18 | Discharge Summary ---
<Statement entered by Bertin Narvaez, DO - 05/02/25 14:59> Patient seen and examined Feeling better. tolerating PO Pain improved Moving bowels For DC home I spent a total of 15minutes coordinating, documenting, and providing care for this patient excluding time spent in the performance of separately billed services. 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 Patient states that he was discharged yesterday from the hospital after being treated for intractable nausea, vomiting associated with constipation and was doing well until yesterday and when he woke up this morning noted to have significant abdominal pain, nonradiating, which did not improve with Tylenol and morphine. He states that he had a loose black bowel movement this morning. He is abdominal pain is unrelated to food intake and not associated with abdominal spasms. He felt feverish but when checked was noted to have no fever. He takes iron pills but not on any blood thinners or aspirin. He denies any recent alcohol, THC use. His abdominal pain is improved while in ED after receiving several medications including Bentyl, famotidine, morphine, antiemetics, capsaicin and Haldol. He reports history of polypectomy and diverticulosis in the past and states that he is due for his colonoscopy. Denies any history of chest pain, dyspnea, dizziness, pedal edema, cough, headache, dysuria, hematuria. Admission Exam Per Admitting Provider Physical Exam: Vitals signs as noted above General Appearance:Thin, frail, no apparent distress, chronic ill appearing Head: normocephalic, Atraumatic Eyes: normal inspection, EOMI Neck: supple, Trachea midline Respiratory/Chest: Normal breath sounds, CTA, No accessory muscle use Cardiovascular: S1, S2, No murmur Abdomen/GI:Soft, generalized mild tender, mild distention, Bowel sounds present Extremities/Musculoskeletal:normal inspection, no edema Neurologic/Psych:AAOX3, grossly no focal neurological deficits Skin: normal color, warm Principal Diagnosis Enteritis due to norovirus infection Discharge Exam Constitutional + thin and + cachectic; no acute distress chronically ill appearing Respiratory normal respiratory effort, lungs clear to auscultation Cardiovascular Rate/Rhythm: regular rate and regular rhythm Vessels: normal peripheral pulses Extremities: no edema Gastrointestinal (Abdomen) Percussion/Palpation: abdomen soft; abdomen nontender Skin no rashes, warm and dry Neurologic no focal motor deficits Psychiatric Orientation: alert and oriented x 3 Affect: + flat affect Discharge Data Allergies Allergy/AdvReac Type Severity Reaction Status Date / Time carbamazepine [From Tegretol] Allergy Mild Rash Verified 04/27/25 15:07 Consultations 04/27/25 23:03 Consult Gastroenterology Routine Ordered Studies Laboratory Results WBC 5.63 K/ul (4.8-10.8) 05/02/25 06:41 RBC 3.71 M/uL (4.70-6.10) L 05/02/25 06:41 Hgb 10.9 g/dl (14.0-18.0) L 05/02/25 06:41 Hct 32.5 % (42.0-52.0) L 05/02/25 06:41 MCV 87.6 fL (80.0-100.0) 05/02/25 06:41 MCH 29.4 pg (25.0-34.0) 05/02/25 06:41 MCHC 33.5 g/dL (32.0-36.0) 05/02/25 06:41 RDW Std Deviation 44.0 fL (36.4-46.3) 05/02/25 06:41 RDW Coeff of Stone 13.8 % (11.5-14.5) 05/02/25 06:41 Plt Count 250 K/uL (130-400) 05/02/25 06:41 MPV 9.8 fL (9.4-12.4) 05/02/25 06:41 Immature Gran % (Auto) 0.5 % 04/27/25 13:06 Neut % (Auto) 77.9 % 04/27/25 13:06 Lymph % (Auto) 13.6 % 04/27/25 13:06 [place] % (Auto) 7.3 % 04/27/25 13:06 Eos % (Auto) 0.2 % 04/27/25 13:06 Baso % (Auto) 0.5 % 04/27/25 13:06 Neut # (Auto) 4.47 K/uL (1.40-6.50) 04/27/25 13:06 Lymph # (Auto) 0.78 K/uL (1.20-3.40) L 04/27/25 13:06 Stonewall # (Auto) 0.42 K/uL (0.11-0.59) 04/27/25 13:06 Eos # (Auto) 0.01 K/uL (0.00-0.50) 04/27/25 13:06 Baso # (Auto) 0.03 K/uL (0.00-0.20) 04/27/25 13:06 Immature Gran # (Auto) 0.03 K/uL (0.01-0.20) 04/27/25 13:06 Sodium 137 mmol/L (136-145) 05/02/25 06:41 Potassium 3.7 mmol/L (3.5-5.1) 05/02/25 06:41 Chloride 102 mmol/L (98-107) 05/02/25 06:41 Carbon Dioxide 27 mmol/L (21-32) 05/02/25 06:41 Anion Gap 8 (3-11) 05/02/25 06:41 BUN 8 mg/dl (6-23) 05/02/25 06:41 Creatinine 0.50 mg/dl (0.6-1.4) L 05/02/25 06:41 Est Cr Clr Drug Dosing 124.0 ml/min 05/02/25 06:41 eGFR 116.77 05/02/25 06:41 BUN/Creatinine Ratio 16.0 (10-20) 05/02/25 06:41 Glucose 100 mg/dl (70-99(Fasting)) H 05/02/25 06:41 Calcium 8.4 mg/dl (8.6-10.3) L 05/02/25 06:41 Magnesium 1.7 mg/dl (1.7-2.4) 05/02/25 06:41 Total Bilirubin 0.7 mg/dl (0.2-1.0) 04/27/25 13:06 AST 16 U/L (13-39) 04/27/25 13:06 ALT 9 U/L (7-52) 04/27/25 13:06 Alkaline Phosphatase 61 U/L (34-104) 04/27/25 13:06 Troponin I High Sens 3.7 pg/ml (0-20) 04/27/25 13:06 Total Protein 6.5 gm/dl (6.0-8.3) 04/27/25 13:06 Albumin 3.9 gm/dl (3.4-5.0) 04/27/25 13:06 Globulin 2.6 gm/dl (2.5-4.0) 04/27/25 13:06 Albumin/Globulin Ratio 1.5 (0.9-2) 04/27/25 13:06 Lipase 41 U/L (11-82) 04/27/25 13:06 Stool Occult Bld Scrn Negative (Negative) 04/29/25 12:26 Stl C. cayetanensis PCR Not Detected (NotDetected) 04/29/25 12:26 Stool Rotavirus A PCR Not Detected (NotDetected) 04/29/25 12:26 Stl Adenov F 40/41 PCR Not Detected (NotDetected) 04/29/25 12:26 Stool Astrovirus (PCR) Not Detected (NotDetected) 04/29/25 12:26 Stool Campylobacter PCR Not Detected (NotDetected) 04/29/25 12:26 Stool Cryptosporidium PCR Not Detected (NotDetected) 04/29/25 12:26 Stl E.coli Shiga Tox PCR Not Detected (NotDetected) 04/29/25 12:26 Stl Enterotoxigenic E PCR Not Detected (NotDetected) 04/29/25 12:26 Stool EPEC (PCR) Not Detected (NotDetected) 04/29/25 12:26 Stool EAEC (PCR) Not Detected (NotDetected) 04/29/25 12:26 Stl E. histolytica PCR Not Detected (NotDetected) 04/29/25 12:26 Stool Giardia Lamblia PCR Not Detected (NotDetected) 04/29/25 12:26 Stool Salmonella PCR Not Detected (NotDetected) 04/29/25 12:26 Stool Sapovirus (PCR) Not Detected (NotDetected) 04/29/25 12:26 Stl P. shigelloides PCR Not Detected (NotDetected) 04/29/25 12:26 Stl Shigella/EIEC PCR Not Detected (NotDetected) 04/29/25 12:26 St Y.enterocolitica PCR Not Detected (NotDetected) 04/29/25 12:26 Stool Vibrio (PCR) Not Detected (NotDetected) 04/29/25 12:26 Stl Vibrio cholerae PCR Not Detected (NotDetected) 04/29/25 12:26 Stl Norovirus GI/GII PCR DETECTED (NotDetected) A* 04/29/25 12:26 Urine Opiates Screen Pos (Neg) H 04/27/25 16:06 U Codeine Confrm GC/MS NEGATIVE ng/mL (<50) 04/27/25 16:06 Ur Morphine (GC/MS) 736 ng/mL (<50) H 04/27/25 16:06 Ur Hydrocodone (GC/MS) NEGATIVE ng/mL (<50) 04/27/25 16:06 Ur Norhydrocodone NEGATIVE ng/mL (<50) 04/27/25 16:06 Ur Noroxycodone NEGATIVE ng/mL (<50) 04/27/25 16:06 Urine Oxycodone (GC/MS) NEGATIVE ng/mL (<50) 04/27/25 16:06 U Oxymorphone GC/MS NEGATIVE ng/mL (<50) 04/27/25 16:06 Ur Methadone, Qual Neg (Neg) 04/27/25 16:06 Ur Hydromorphone (GC/MS) NEGATIVE ng/mL (<50) 04/27/25 16:06 Urine Fentanyl Screen Neg (Neg) 04/27/25 16:06 Urine Barbiturates Neg (Neg) 04/27/25 16:06 Ur Phencyclidine (PCP) Neg (Neg) 04/27/25 16:06 U Amphetamin/Meth Scrn Neg (Neg) 04/27/25 16:06 MDMA (Ecstasy) Screen Neg (Neg) 04/27/25 16:06 U Benzodiazepines Scrn Neg (Neg) 04/27/25 16:06 Ur Cocaine Metabolite Neg (Neg) 04/27/25 16:06 U Marijuana (THC) Screen Neg (Neg) 04/27/25 16:06 Drug Screen Comment SEE NOTE 04/27/25 16:06 Ethyl Alcohol mg/dL < 10.0 mg/dl (<10.0) 04/27/25 14:47 Impressions Chest X-Ray 04/27/25 12:45 Chest radiograph, one view History: Postreduction. Comparison: April 11, 2025. Findings: Thoracic inlet limited secondary to superimposed lower facial structures. Right chest port catheter unchanged. Cardiomediastinal silhouette is within normal limits. Lung volumes are prominent. Lungs are clear. No acute pleural disease. Pulmonary vasculature is within normal limits. Impression: Limited thoracic inlet with no appreciated acute process. Lateral view would be helpful. Electronically signed by Jaswinder Bahena 04-27-2025 4:08 PM Abdomen/Pelvis CT 04/27/25 13:05 Exam: CT abdomen/pelvis with IV contrast. Reason for exam: Abdominal pain with nausea and vomiting. Previous studies: CT abdomen/pelvis 04/25/2025. FINDINGS: The lower lung zones remain free of acute disease. Small sharply demarcated nodule in the anterior left hepatic lobe most compatible with cyst unchanged since the previous study. No biliary tract dilatation noted. Metallic clip noted in the upper abdomen although the gallbladder remains present. Staple line appears to be from previous gastric bypass. Small hiatal hernia remains present. Pancreas and spleen are unremarkable. Adrenal glands are unremarkable. Kidneys unremarkable. Scattered vascular calcifications seen in the aorta without aneurysm. Bowel pattern is nonspecific without evidence of bowel obstruction or. Diverticulosis again seen in the sigmoid. Again there is a mild wall thickening of the distal small bowel which is nonspecific but may indicate enteritis, without bowel obstruction. Mild wall thickening also seen in the sigmoid colon without focal active diverticulitis. Mild diffuse thickening of the wall of the urinary bladder is noted. Bladder is mildly distended. Otherwise no pelvic mass, adenopathy or free fluid is seen. IMPRESSION: 1. Essentially stable appearance as compared to the previous study of 04/25/2025. 2. Mild mural thickening of the distal small bowel and colon particularly the sigmoid, suggesting possible nonspecific enteritis. No evidence of bowel obstruction or free air. Follow-up small bowel series and/or capsule endoscopy recommended for further evaluation. 3. Mild diverticulosis. 4. Small hiatal hernia. 5. Mild diffuse thickening of the wall of the urinary bladder. Electronically signed by Rad Ponce 04-27-2025 5:25 PM KUB X-Ray 04/28/25 07:00 KUB HISTORY: nausea, vomiting COMPARISON STUDY: CT scan yesterday FINDINGS: There is mild retained stool. No bowel obstruction seen. No gross free air. IMPRESSION: No bowel obstruction seen. ACT 112: Negative or not required by law. The above report was generated using voice recognition software. It may contain grammatical, syntax or spelling errors. Electronically signed by: Rad Roger M.D. 04/28/2025 9:09 AM Hospital Course (1) Abdominal pain: (2) Intractable nausea and vomiting: (3) Enteritis: (4) Norovirus: (5) Melena: Plan Pt is a 59y/o M with PMHx lower esophageal/GE junction invasive adenocarcinoma s/p neoadjuvant FLOT and total gastrectomy and Yeison-en-Y esophagojejunal anastomosis [under observation with Dr. Cipriano Kuhn since 07/2023], severe malnutrition/moderate protein-calorie malnutrition with history of PEG tube placement in 2023, history of recurrent N/V, chronic abdominal pain, history of diverticulitis, chronic anemia/TU and trigeminal neuralgia who was admitted 2/2 intractable N/V, abdominal pain and melena. Admitting CTAP: Essentially stable appearance as compared to the previous study of 04/25/25. Mild mural thickening of the distal small bowel and colon particularly the sigmoid, suggesting possible nonspecific enteritis. No evidence of bowel obstruction or free air. Mild diverticulosis. Small hiatal hernia. Mild diffuse thickening of the wall of the urinary bladder. Chronic abdominal pain Intractable N/V Enteritis 2/2 Norovirus infection Repeat KUB on 04/28 (obtained 2/2 recurrent abd pain): mild retained stool, no bowel obstruction seen + Norovirus on stool PCR 04/29 Conservative management with bowel rest, IVF, PRN pain and nausea meds Has required a few doses of IV Emend (works for pt for breakthrough N/V) Tolerating regular diet on the day discharge Melena H/o diverticulosis, polyps 1 episode of melena [employer] Had a few loose BMs but denies any further melena or hematochezia H/H overall stable FOBT negative 04/29 GI consulted --> hold off on scope eval given no further evidence of bleeding, observation more prudent. If problems persist while in the hospital then colonoscopy could be considered before DC. 01/08/2025 EGD: Mucosal nodule in esophagus biopsied. S/p gastrectomy. Normal examined jejunum 01/08/25 Esophagus nodule surgical pathology: Squamous mucosa with no specific pathological change 01/08/2025 colonoscopy: Inadequate colon prep IV PPI -> PO PPI Elevated BP Likely situational Received one dose Lisinopril 5mg Will hold on further antihypertensives at discharge, recommend follow-up with PCP for BP monitoring History of lower esophageal/GE junction invasive adenocarcinoma Severe protein-calorie malnutrition F/w Dr. 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 Continue vitamin supplementation as able Has previously seen [facility] palliative medicine --> scheduled telemedicine visit with Muriel Leal PA-C on 05/07/25 at 9:30A Alcohol use disorder Marijuana use Denies any recent marijuana use [employer] Reports has been having 1 EtOH drink/week EtOH level negligible on admission Total Time Total Time Spent Total Time Spent (In Minutes): 40 Total Time Includes: Examination of the Patient, Discharge Planning, Medication Reconciliation and Communication With Other Providers Discharge Plan Discharge Items Patient Disposition: Home - Self-Care Reason For Visit: Vomiting, Abdominal Pain Discharge Diagnosis: Norovirus Infection Condition on Discharge: Fair Activity: Resume your previous activity Non-emergency contact: Primary Care Provider Call non-emergency contact if: you have any medication questions, your symptoms worsen and your pain is not controlled Follow-up/Referrals: Thaddeus Solis MD [Primary Care Provider] - (Date & Time 05/08/2025 11:00 AM Provider: Thaddeus Solis MD [facility] [place] ) Muriel Leal PA-C [Outside Practitioners] - 05/07/25 9:30 am (Palliative Telemedicine appt ) Diet: Regular Addtl Attending Provider Instructions: You presented to the hospital for evaluation of abdominal pain and nausea. You are found to have norovirus infection. You are treated conservatively with bowel rest, IV fluids, nausea and pain medications. On the day of discharge, you are tolerating a regular diet. Continue to follow-up with your PCP, oncologist Dr. Cipriano Kuhn, and palliative care. Pending Studies at Discharge: No Stand-Alone Forms: My [facility], Smoking Cessation Medications and DC Order Prescriptions: Continued cyanocobalamin (vitamin B-12) [Vitamin B-12] 500 mcg Tablet 500 mcg PO DAILYBD cholecalciferol (vitamin D3) [Vitamin D3] 50 mcg (2,000 unit) Tablet 50 mcg PO DAILY pantoprazole 40 mg tablet,delayed release (DR/EC) 40 mg PO QAM dicyclomine 10 mg capsule 10 mg PO QID PRN (Reason: abd pain) Rx Instructions: reports typically takes once a day olanzapine [Zyprexa] 5 mg tablet 5 mg PO HS escitalopram oxalate 10 mg tablet 10 mg PO QAM morphine concentrate 100 mg/5 mL (20 mg/mL) solution 10 mg PO Q4H PRN (Reason: Pain) Hold Instructions: Resume on 12/11/24. Rx Instructions: 0.5 ML q4h prn prochlorperazine maleate 10 mg tablet 10 mg PO Q6H PRN (Reason: Nausea And Vomiting) lorazepam 0.5 mg tablet 0.5 mg PO Q6H PRN (Reason: Anxiety) folic acid 1 mg tablet 1 mg PO QDL aprepitant 80 mg capsule 80 mg PO DAILY PRN (Reason: Nausea And Vomiting) ondansetron HCl 8 mg tablet 8 mg PO Q8H PRN (Reason: Nausea And Vomiting) ferrous sulfate 325 mg (65 mg iron) Tablet 325 mg PO 3XWK Hold Instructions: Resume on 12/14/24. Rx Instructions: Mon/Wed/Fri polyethylene glycol 3350 [Miralax] 17 gram Powder In Packet 17 g PO DAILY Qty: 30 0RF docusate sodium 100 mg Capsule 100 mg PO DAILY Qty: 30 0RF magnesium 250 mg Tablet 250 mg PO BID Qty: 60 0RF Discharge Orders: Discharge Order (Routine); Ordered 05/02/25 Ordered By: Staci Hammonds Admission Data Admit Date/Time: 04/27/25 18:12 Attending Provider: Bertin Narvaez Admit Provider: Saleem Evans Primary Care Provider: Thaddeus Solis Other Providers: Rohith Velasco; Jason Cid; Dahlia Ballard; Ely York; Veronica Montenegro; Nathalia Meadows; Homar Blair; Trista Lucero; Pepper Blunt; Marielle Quigley; Claire Robertson; Carri Crowell; Sandra Alonso; Christen Rao; Georgi Long; Maurice Stauffer; Markus Bunch; Belgica Solorzano; Iggy Acuna Jr; Sergio Burns; Raman Ley; Fabian Maher; Pollo Talbot; Lynette Michael; Alessio Agrawal I; Aliyah Gunter; Allen Wolfe; Americo Guido; Jose Cardenas; Harpal Koroma; Breanna Aquino Other Interventions: Discharge Summary Assessment (RN) Last Done: 05/02/25 12:54
[2025-05-02 14:02] VITALS: PULSE 72
== END 2025-05-02 14:16 | disposition home or self-care (01) | DRG 391 ==
LOC: ED 12:38 → 2W 18:12 → SUATTDRO 18:12 → 2W 22:42